=== PATIENT | female | born 1970 | race Caucasian/White ===

== ENCOUNTER 2018-03-28 07:47 | Emergency (ER) | payer MEDICARE, SELFPAY ==
[2018-03-28 07:53] VITALS: BP 124/74; PULSE 85; RESP 20; TEMP 36.5; O2SAT 96
--- NOTE | 2018-03-28 08:03 | DI.CT_ITS ---
SYMPTOM/DIAGNOSIS: HEMOPTYSIS CHEST CT: The study was carried out according to the usual protocol with an intravenous administration of 100.2 ml of Isovue 350. There is no evidence of pulmonary emboli Diffuse emphysematous changes are noted in the lungs. There are bilateral pulmonary nodules and when compared with the previous study of 12/06/13 there is a question regarding interval development of a small left upper lobe nodule. This finding not noted on the previous study. There is a number of superior mediastinal lymph nodes which are somewhat prominent. This finding is unchanged when compared with the 2014 exam. There is no evidence of hilar adenopathy. There is no evidence of a pleural effusion. The cardiovascular structures as demonstrated appear intact with no evidence of cardiomegaly. There is no evidence of a significant pericardial effusion. There is no evidence of an aortic aneurysm. SUMMARY: No evidence of pulmonary embolic disease. There are diffuse emphysematous changes in the lungs and pulmonary nodules are identified. There is an apparent small apical left pulmonary nodule not seen on the prior study of 2013. Further evaluation of this patient with a follow up screening chest CT in 3 months is recommended for further review. The E.R. Department was notified on the date of the examination.
--- NOTE | 2018-03-28 08:07 | ED.GENADUL_ITS ---
Discharge Plan Disposition Patient Disposition: HOME Condition: Stable Discharge Details Chief Complaint: RespSymp Clinical Impression: Cough with hemoptysis Primary Care Provider: Ehsan Mathis ED Provider: Bryce Veliz Home Meds and New Rx's Prescriptions: New prednisone 20 mg tablet 60 mg PO DAILY 5 Days Qty: 15 RF: 0 doxycycline hyclate 100 mg tablet 100 mg PO BID Qty: 14 RF: 0 Continued linaclotide [Linzess] 145 MCG capsule 145 mcg PO DAILY Qty: 90 RF: 0 cyclobenzaprine 10 MG tablet 10 mg PO DAILY PRNQty: 30 RF: 0 mirabegron [Myrbetriq] Sample 25 MG tablet extended release 24 hr Qty: 21 RF: 0 fluticasone-salmeterol [Advair Diskus] 1 EACH blister with device 1 ea Inhalation BID RF: 0 tiotropium bromide [Spiriva with HandiHaler] 18 MCG capsule, w/inhalation device 1 cap PO DAILY RF: 0 paroxetine HCl 20 MG tablet 20 mg PO DAILY RF: 0 morphine 15 MG tablet extended release 15 mg PO BID Qty: 30 RF: 0 montelukast 10 MG tablet 10 mg PO NOW Qty: 30 RF: 0 diltiazem HCl [Cardizem] 30 MG tablet 30 mg PO HS RF: 0 bupropion HCl 150 MG tablet extended release 12 hr 150 mg PO BID RF: 0 trazodone 100 MG tablet 100 mg PO .QHS RF: 0 omeprazole [Prilosec] 20 MG capsule,delayed release(DR/EC) 20 mg PO DAILY RF: 0 Discharge Instructions Instructions: Hemoptysis (ED) Additional Instructions: your lab work and cat scan did not show emergent findings. You do have lung nodules which you should make your primary care provider aware of as you should have follow up imaging in the future to make sure these are not getting larger you are being treated for an early infection given the blood in your cough if you have worsening bleeding, shortness of breath or severe weakness return to the emergency department for reevaluation Medical Decision Making 47 yo female with hx of copd and continues to smoke comes in with cc of coughed up sputum with blood in it this morning. Denies recent travel, surgery, chest pain, sob, fevers. Has clear lungs on exam and speaking in full sentences with no lower exstremity swelling or edema. No calf pain. Wells score is moderate so will obtain CTA to eval for pe vs pna. labs show no acute pathology, awaiting imaging, remains stable no acute findings on my read of ct awaiting rad report. She remains stable. ct per dr. camacho shows no acute findings, does have lung nodules which I informed her of. She will f/u with pcp and return precautions given. given blood streaked sputum will treat as possible early cap Differential Diagnosis bronchitis, pna, pe Medical Records Medical records reviewed: Yes I reviewed the patient's medical records. Imaging Data Radiologic Study: Attestation: I personally reviewed and interpreted this imaging study as follows: Imaging: CT Scan My impression: no acute findings Lab Data Lab results reviewed: Yes I reviewed the patient's lab results. ECG Data Attestation: I personally reviewed and interpreted this ECG (s) as follows: Prior ECG tracings: available for review Interpretation: sinus rhythm, rate of 80, pr 188, qtc of 459, no acute ischemic st t wave changes when compared to old ekg HPI General Mode of arrival: ambulatory . Date/Time Provider Initiated Documentation: 03/28/18 07:57 . Limitations to Documentation: no limitations . Information obtained by: patient . History of Present Illness 47 year old F presents to the emergency department with the chief complaint of coughed up blood, described as mild, with intensity rated at 3. Patient started experiencing this hour(s) (1) and it has been constant. No relieving factors improve symptom(s), No exacerbating factors reported . Patient notes no other symptoms.. Patient did receive the following treatments prior to arr ival, none Related Data Home Medications Medication Instructions Recorded Confirmed fluticasone-salmeterol [Advair 1 ea INHALATION BID 06/21/12 10/17/16 Diskus] tiotropium bromide [Spiriva with 1 cap PO DAILY 06/21/12 10/17/16 HandiHaler] paroxetine HCl 20 mg PO DAILY 08/21/12 10/17/16 morphine 15 mg PO BID #30 tabcr 01/06/13 10/17/16 montelukast 10 mg PO NOW #30 tab 08/16/13 10/17/16 diltiazem HCl [Cardizem] 30 mg PO HS 01/08/14 10/17/16 bupropion HCl 150 mg PO BID 02/21/14 10/17/16 omeprazole [Prilosec] 20 mg PO DAILY 02/21/14 10/17/16 trazodone 100 mg PO .QHS 02/21/14 10/17/16 cyclobenzaprine 10 mg PO DAILY PRN #30 tab 07/29/15 10/17/16 linaclotide [Linzess] 145 mcg PO DAILY #90 capsule 07/29/15 10/17/16 mirabegron [Myrbetriq] Sample #21 12/20/16 doxycycline hyclate 100 mg PO BID #14 tab 03/28/18 prednisone 60 mg PO DAILY 5 Days #15 tab 03/28/18 Previous Rx's Medication Instructions Recorded morphine 15 mg PO BID #30 tabcr 01/06/13 montelukast 10 mg PO NOW #30 tab 08/16/13 cyclobenzaprine 10 mg PO DAILY PRN #30 tab 07/29/15 linaclotide [Linzess] 145 mcg PO DAILY #90 capsule 07/29/15 doxycycline hyclate 100 mg PO BID #14 tab 03/28/18 prednisone 60 mg PO DAILY 5 Days #15 tab 03/28/18 Allergies Allergy/AdvReac Type Severity Reaction Status Date / Time vancomycin Allergy Intermediate Hives Unverified 12/20/16 09:46 sertraline HCl [From Zoloft] AdvReac Severe worsens Unverified 12/20/16 09:46 depression General Stated Complaint: RespSymp TK: 3 Review of Systems Review of Systems All systems reviewed & are unremarkable except as noted in HPI and below Constitutional Denies chills, Denies fever(s) and Denies weakness Cardiovascular Denies dyspnea Respiratory Denies dyspnea Gastrointestinal Denies abdominal pain, Denies nausea and Denies vomiting Integumentary/Breasts Denies rash Neurologic Denies weakness Psychiatric Denies depression [facility] History Anxiety Blood coagulation disorder Chronic obstructive lung disease History of ectopic Tobacco dependence, continuous Surgical History Biopsy of breast Colonoscopy - IV Sedation Correction, Hammertoe Dilation and curettage Endometrial Ablation Hysterectomy, Laproscopic Ligation of fallopian tube Oophrectomy, Right , Ectopic Family History Mother No problems noted. Father Personal history of malignant neoplasm Social History Smoking/Tobacco Use Status: Current every day Exam Const General: no acute distress Orientation: alert HENMT Head: normal to inspection Ears: external ears normal General nose exam: external nose normal Mouth: moist mucous membranes Eyes General: appearance normal, both eyes and all related structures Neck Neck: normal visual inspection Resp Effort & Inspection: normal respiratory effort and able to speak in complete sentences Cardio Rate: regular rate Skin General skin exam: no rashes or lesions noted Neuro General: alert and oriented x3 Extrem General: normal to inspection Psych Mental Status: mental status grossly normal Course Vital Signs Temperature 36.5 C 03/28/18 07:53 Pulse 85 03/28/18 07:53 Respiratory Rate 20 03/28/18 07:53 Blood Pressure 124/74 03/28/18 07:53 Pulse Oximetry 96 03/28/18 07:53 Temperature 36.5 C 03/28/18 07:53 Temperature Source Temporal Artery Scan 03/28/18 07:53 Pulse 85 03/28/18 07:53 Respiratory Rate 20 03/28/18 07:53 Respiratory Effort Non-Labored 03/28/18 07:59 Respiratory Depth Normal 03/28/18 07:59 Blood Pressure 124/74 03/28/18 07:53 Pulse Oximetry 96 03/28/18 07:53 Oxygen Delivery Method Room Air 03/28/18 07:53 Oxygen Flow Rate 0 03/28/18 07:53
[2018-03-28 08:27] LABS: Absolute Basophil Count 0.03 k/cumm (0.0-0.2); Absolute Eosinophil Count 0.06 k/cumm (0.0-0.7); Absolute Lymphocyte Count 1.28 k/cumm (1.2-3.4); Absolute Monocyte Count 0.49 k/cumm (0.11-0.7); Absolute Neutrophil Count 2.57 k/cumm (1.2-6.7); Basophils % 0.7; Eosinophils % 1.4; HCT 40.9 % (36.0-46.0); HGB 13.6 g/dL (12.0-15.5); Lymphocytes % 28.9; Mean Corp. HGB Concentration 33.3 g/dL (32.0-36.0); Mean Corpuscular Hemoglobin 32.5 pg (27.0-33.0); Mean Corpuscular Volume 97.6 fL (80-95); Mean Platelet Volume 9.9 fL (8.0-11.0); Monocytes % 11.1; Neutrophils % 57.9; Platelet Count 193 x1000/uL (130-400); RBC 4.19 m/cumm (4.00-5.20); RBC Distribution Width 13.4 % (11.7-14.6); White Blood Cell Count 4.43 k/cumm (4.4-10.8)
[2018-03-28] MEDS: Normal Saline Flush 10 ML SYR IVP (08:30)
[2018-03-28 08:37] LABS: PTT Activated 24.6 sec (21.0-31.4)
[2018-03-28 08:52] LABS: ALT 14 U/L (12-78); AST 12 U/L (15-37); Albumin 3.3 g/dL (3.4-5.0); Alkaline Phosphatase 126 U/L (46-116); Anion Gap 8.9 mmol/L (3-11); BUN 7 mg/dL (7-18); Bilirubin, Total 0.2 mg/dL (0.2-1.0); CO2 29.1 mmol/L (21.0-32.0); CREATININE 0.85 mg/dL (0.55-1.02); Calcium 8.5 mg/dL (8.5-10.1); Chloride 106 mmol/L (98-107); Glucose 83 mg/dL (70-100); Potassium 3.6 mmol/L (3.5-5.1); Sodium 144 mmol/L (136-145); Total Protein 6.4 g/dL (6.4-8.2)
[2018-03-28 08:53] LABS: Magnesium 1.6 mg/dL (1.8-2.4); NT-proBNP 121 pg/mL; Troponin I < 0.02 ng/mL (0.00-0.06)
[2018-03-28 08:59] VITALS: BP 95/74; PULSE 75; RESP 20; TEMP 36.8; O2SAT 94
--- NOTE | 2018-03-28 09:05 | NUR.NOTE ---
Nursing Note: Pt off unit to CT
[2018-03-28] MEDS: Omnipaque 350 MG/ML 100 ML BTL IJ (09:15)
[2018-03-28 10:18] VITALS: PULSE 73; RESP 20; O2SAT 93
[2018-03-28 10:30] VITALS: PULSE 73; RESP 20; O2SAT 94
== END 2018-03-28 10:33 | disposition home or self-care (01) ==
PROVIDERS: Emergency Provider Emergency Medicine; PCP Specialist/Technologist Athletic Trainer
DX: R04.2 Hemoptysis (principal); J44.9 Chronic obstructive pulmonary disease, unspecified; F17.210 Nicotine dependence, cigarettes, uncomplicated
CPT/HCPCS: 36415; 71275; 80053; 93005; 99285; 83735; 83880; 84484; 85025; 85610; 85730; 93010; J3490

== ENCOUNTER 2018-07-12 10:34 | Outpatient (REF) | payer MEDICARE, SELFPAY ==
[2018-07-12 20:15] LABS: HGB 13.5 g/dL (12.0-15.5)
[2018-07-12 20:40] LABS: ALT 20 U/L (12-78); AST 13 U/L (15-37); Albumin 3.6 g/dL (3.4-5.0); Alkaline Phosphatase 117 U/L (46-116); Anion Gap 9.2 mmol/L (3-11); BUN 8 mg/dL (7-18); Bilirubin, Total 0.2 mg/dL (0.2-1.0); CO2 26.8 mmol/L (21.0-32.0); CREATININE 0.89 mg/dL (0.55-1.02); Calcium 8.6 mg/dL (8.5-10.1); Chloride 105 mmol/L (98-107); Cholesterol 233 mg/dL (50-200); Glucose 76 mg/dL (70-100); HDL Cholesterol 70 mg/dL (40-60); LDL CHOLESTEROL 138 mg/dL (<100); Magnesium 1.8 mg/dL (1.8-2.4); Potassium 3.7 mmol/L (3.5-5.1); Sodium 141 mmol/L (136-145); Total Protein 6.6 g/dL (6.4-8.2); Triglyceride 69 mg/dL (30-150)
== END 2018-07-12 10:54 ==
LOC: NCHCN 10:34
PROVIDERS: PCP Specialist/Technologist Athletic Trainer; Visit Provider Specialist/Technologist Athletic Trainer
DX: E03.9 Hypothyroidism, unspecified (principal); K21.9 Gastro-esophageal reflux disease without esophagitis; E78.5 Hyperlipidemia, unspecified
CPT/HCPCS: 80053; 80061; 83721; 83735; 84443; 85014; 85018

== ENCOUNTER 2018-07-18 00:40 | Outpatient (CLI) | payer MEDICARE, SELFPAY ==
--- NOTE | 2018-07-18 12:15 | DI.MAMMO_ITS ---
SYMPTOM/DIAGNOSIS: SCREENING, Z12.31, [facility], Z00.00 MAMMOGRAMS: Mammograms were interpreted according to the usual protocol including computer analysis with CAD system, tomosynthesis and C view imaging. Comparison is made with prior examinations. Breast density, Category B. No suspicious microcalcifications or masses are seen. There is an ovoid density in the retroareolar region of the left breast seen on the mediolateral oblique view. This area should be further evaluated with a spot compression view. Ultrasound may be indicated at that time. IMPRESSION: Additional views of the left breast as described above. Category 0. MQSA ASSESSMENT OF FINDINGS: Incomplete: Needs additional imaging evaluation. Category 0. Patient will receive a letter notifying them of these results. BI-RADS category B. There are scattered areas of fibroglandular density.
== END 2018-07-18 01:00 ==
PROVIDERS: PCP Specialist/Technologist Athletic Trainer; Visit Provider Specialist/Technologist Athletic Trainer
DX: Z12.31 Encounter for screening mammogram for malignant neoplasm of breast (principal); R92.8 Other abnormal and inconclusive findings on diagnostic imaging of breast
CPT/HCPCS: 77063; 77067

== ENCOUNTER 2018-07-21 00:26 | Outpatient (CLI) | payer MEDICARE, SELFPAY ==
--- NOTE | 2018-07-21 13:34 | DI.MAMMO_ITS ---
SYMPTOMS/DIAGNOSIS: F/U MAMMO, OVOID DENSITY RETROAREOLAR REGION LT BREAST ADDITIONAL MAMMOGRAPHIC VIEWS LEFT BREAST AND LEFT BREAST ULTRASOUND: Additional images are interpreted according to the usual protocol including tomosynthesis and 2D imaging. Additional mammographic views of the left breast and left breast ultrasound are interpreted in conjunction. These examinations were obtained to evaluate questionable area of retroareolar asymmetric radiodensity seen on recent mammogram. Additional mammographic views fail to show a discrete mass. Breast ultrasound shows no evidence of mass or cyst. CONCLUSION: No specific evidence of malignancy at this time. Follow up unilateral left breast mammogram recommended in 6 months. Category 3. Breast density Category C. MQSA ASSESSMENT OF FINDINGS: Probably benign. Six month follow-up recommended. Category 3. Patient will receive a letter notifying them of these results. Bi-RADS category C. The breasts are heterogeneously dense, which may obscure small masses.
== END 2018-07-21 00:46 ==
PROVIDERS: PCP Specialist/Technologist Athletic Trainer; Visit Provider Specialist/Technologist Athletic Trainer
DX: Z12.31 Encounter for screening mammogram for malignant neoplasm of breast (principal); R92.8 Other abnormal and inconclusive findings on diagnostic imaging of breast; N64.59 Other signs and symptoms in breast
CPT/HCPCS: 76642; 77063; 77067

== ENCOUNTER 2018-07-27 00:31 | Outpatient (CLI) | payer MEDICARE, SELFPAY ==
--- NOTE | 2018-07-27 08:24 | DI.US_ITS ---
SYMPTOM/DIAGNOSIS: ABD PAIN, R10.9 ABDOMEN ULTRASOUND: The visualized liver parenchyma is normal in appearance. There is no evidence of cholelithiasis or biliary dilatation. Pancreas incompletely visualized but the pancreatic head and body appear grossly intact. The kidneys are unremarkable with no evidence of obstruction or nephrolithiasis. Spleen is unremarkable in appearance. Abdominal aorta and IVC are of normal diameter. CONCLUSION: Negative abdomen ultrasound.
== END 2018-07-27 00:51 ==
PROVIDERS: PCP Specialist/Technologist Athletic Trainer; Visit Provider Specialist/Technologist Athletic Trainer
DX: R10.9 Unspecified abdominal pain (principal)
CPT/HCPCS: 76700

== ENCOUNTER → 2018-07-28 10:46 | Outpatient (BNVA) | payer MEDICARE, SELFPAY | PROVIDERS: PCP Specialist/Technologist Athletic Trainer; Referring Provider Specialist/Technologist Athletic Trainer; Visit Provider Physical Therapy Assistant | DX: R10.11 Right upper quadrant pain (principal); J44.9 Chronic obstructive pulmonary disease, unspecified; Z99.81 Dependence on supplemental oxygen | CPT/HCPCS: 99212; 99213 ==

== ENCOUNTER 2018-08-08 07:56 | Day surgery (SDC) | payer MEDICARE, SELFPAY ==
--- NOTE | 2018-08-08 07:03 | W.PM.ENDDOP ---
Date of service: 08/08/18 Time of Service: : Endoscopy Report DATE OF PROCEDURE: 08/08/18 PRE-OP DIAGNOSIS: Abdominal pain POST-OP DIAGNOSIS: other (mild gastritis, mild esophagitis) PROCEDURE: EGD with biopsies SURGEON: Summer Meeks ANESTHESIA: other (General/ ASA 2/ angy Parra, TUNG) ESTIMATED BLOOD LOSS: 3 PATHOLOGY: other (Duodenal bx, antrum bx, GE junction bx) DISPOSITION: no change INDICATIONS: Mrs. Sanchez is a pleasant 47 year old female seen in the office for abdominal pain. EGD was recommended. Risks, benefits and complications have been reviewed. Complications include but are not limited to bleeding, pain, perforation, sore throat, aspiration, and adverse reaction to the medications. Questions were entertained and answered to their satisfaction and they wished to proceed. No guarantees were given or implied. PROCEDURE START TIME: PROCEDURE END TIME: :36 FINDINGS: Mild inflammation of the antrum and esophagus PROCEDURE DESCRIPTION: After informed consent was obtained the patient was take to the procedure room and placed in a supine position. Monitors were applied and a time out was done. The patients name, date of , procedure type, allergies to medications and metal in their body was reviewed. A bite block was placed and the patient was sedated. Once sedated and comfortable the gastroscope was advanced through the oropharynx which was grossly normal into the esophagus. The proximal and mid-esophagus were normal. In the distal esophagus there was mild inflammation noted. The scope was advanced into the stomach and through the pylorus into the 3rd portion of the duodenum. The duodenum was noted to be normal. Biopsies were done of the duodenum to rule out Celiac. The scope was retracted back into the stomach and biopsies were done to rule out H. pylori. There were no ulcers. The scope was retro-flexed. The cardia and fundus were noted to be normal. There was no hiatal hernia noted. The scope was retracted back into the esophagus and biopsies were done of the GE junction to rule out Ross's. The Z line was irregular. The GE junction was at 40 cm. The scope was removed and the patient was woken up and taken back to [facility] in stable condition. Follow up: 2 weeks in the office. No changes to her medications at this time.
--- NOTE | 2018-08-08 07:10 | ENDO_ITS ---
Date of service: 08/08/18 Time of Service: : Endoscopy Report DATE OF PROCEDURE: 08/08/18 PRE-OP DIAGNOSIS: Abdominal pain POST-OP DIAGNOSIS: other (mild gastritis, mild esophagitis) PROCEDURE: EGD with biopsies SURGEON: Summer Meeks ANESTHESIA: other (General/ ASA 2/ angy Parra, TUNG) ESTIMATED BLOOD LOSS: 3 PATHOLOGY: other (Duodenal bx, antrum bx, GE junction bx) DISPOSITION: no change INDICATIONS: Mrs. Sanchez is a pleasant 47 year old female seen in the office for abdominal pain. EGD was recommended. Risks, benefits and complications have been reviewed. Complications include but are not limited to bleeding, pain, perforation, sore throat, aspiration, and adverse reaction to the medications. Questions were entertained and answered to their satisfaction and they wished to proceed. No guarantees were given or implied. PROCEDURE START TIME: PROCEDURE END TIME: :36 FINDINGS: Mild inflammation of the antrum and esophagus PROCEDURE DESCRIPTION: After informed consent was obtained the patient was take to the procedure room and placed in a supine position. Monitors were candido lied and a time out was done. The patients name, date of , procedure type, allergies to medications and metal in their body was reviewed. A bite block was placed and the patient was sedated. Once sedated and comfortable the gastroscope was advanced through the oropharynx which was grossly normal into the esophagus. The proximal and mid- esophagus were normal. In the distal esophagus there was mild inflammation noted. The scope was advanced into the stomach and through the pylorus into the 3rd portion of the duodenum. The duodenum was noted to be normal. Biopsies were done of the duodenum to rule out Celiac. The scope was retracted back into the stomach and biopsies were done to rule out H. pylori. There were no ulcers. The scope was retro-flexed. The cardia and fundus were noted to be normal. There was no hiatal hernia noted. The scope was retracted back into the esophagus and biopsies were done of the GE junction to rule out Ross's. The Z line was irregular. The GE junction was at 40 cm. The scope was removed and the patient was woken up and taken back to [facility] in stable condition. Follow up: 2 weeks in the office. No changes to her medications at this time.
--- NOTE | 2018-08-08 07:19 | PDOC.DSDIS_ITS ---
Discharge Plan Disposition Patient Disposition: HOME Condition: Good Discharge Details Reason For Visit: Abdominal pain Attending Provider: Summer Meeks Primary Care Provider: Ehsan Mathis Home Meds and New Rx's Prescriptions: Continued fluticasone furoate-vilanterol 100-25 mcg/dose blister with device 1 inh IH DAILY PRNRF: 0 trazodone 100 mg tablet 200 mg PO QHS PRNRF: 0 citalopram 20 mg tablet 20 mg PO DAILY RF: 0 citalopram 40 mg tablet 40 mg PO DAILY RF: 0 levothyroxine 75 mcg capsule 75 mcg PO DAILY RF: 0 Oxygen Tank .ROUTE .MEDSUPPLY Qty: 1 RF: 0 Spiriva with HandiHaler 18 MCG capsule, w/inhalation device 1 cap PO DAILY RF: 0 montelukast 10 MG tablet 10 mg PO NOW Qty: 30 RF: 0 diltiazem HCl [Cardizem] 30 MG tablet 30 mg PO HS RF: 0 bupropion HCl 150 MG tablet extended release 12 hr 150 mg PO BID RF: 0 omeprazole [Prilosec] 20 MG capsule,delayed release(DR/EC) 40 mg PO DAILY RF: 0 Breo Ellipta 200-25 mcg/dose Blister With Device 1 inh INHALATION DAILY RF: 0 Discharge Instructions Instructions: Gastritis (DC), Diet for Stomach Ulcers and Gastritis (GEN), Upper Endoscopy (DC), Esophagitis (DC) Additional Instructions: Findings: Mild inflammation of the stomach and esophagus Follow up: August 22 at 1 pm Please call if you develop: fevers >101.5 Nausea or Vomiting Abdominal pain that is not transient DAY SURGERY UNIT POST COLONOSCOPY INSTRUCTIONS 1. Because there will be medication in your system for the next 24 hours, you may feel a little sleepy. Your coordination will be affected. Therefore: a. Do not drive or operate dangerous equipment for 24 hours. b. Do not drink alcohol beverages for 24 hours (not even beer). c. Plan to go home and rest for the day. 2. Generally there are no restrictions on your activity after a day or so has gone by, but you may feel a bit fatigued for a few days. 3 After you arrive home you may have a light meal and return to a normal diet as you can tolerate it without feeling sick to your stomach. 4. After surgery, you may feel pain or discomfort. This should be only transient, but if it persists please contact your doctor. 5. If there are any questions regarding the findings of your procedure, please feel free to contact your doctor. 6. If you are unable to contact your doctor with a problem, contact the hospital at [phone]. 7. Continue all your regular medications unless directed otherwise. I understand the above instructions and have no questions. Signature of Patient or Responsible Adult Escort Date/Time Name of Responsible Adult Escort Signature of Nurse Date/Time Referrals: Summer Meeks MD [ [facility] STAFF PHYSICIAN] - 08/08/18 9:54 am Activity:: Activity as Tolerated Diet:: As Tolerated Discharge Orders Discharge Orders: Discharge Order (Routine); Ordered 08/08/18 Ordered By: Summer Meeks DS: Diagnosis Discharge Diagnosis (1) H/O esophagogastroduodenoscopy: Status: Chronic (2) Esophagitis: Status: Acute (3) Gastritis: Status: Acute
[2018-08-08 08:23] VITALS: BP 118/78; PULSE 72; RESP 16; TEMP 36.6; O2SAT 95
[2018-08-08] MEDS: Lactated Ringers 1,000 ML 80 ML IV (08:42)
--- NOTE | 2018-08-08 09:30 | STOM_PTH ---
PATIENT: Jessie Sanchez LOC: [facility] U#:[id number] AGE/SX: 47/F ROOM: RE08/08/[address]: Summer Meeks MD : 1970 BED: DIS: 08/08/2018 SPEC #: [id number] RECD: 08/08/18 12:48 STATUS: LUCIA REJared #: [id number] VERONIKA: 08/08/18 09:[address]: Summer Meeks DEPT: Surgical Specimen RECD BY: Celeste Watts ENTERED: 08/08/18 12:50 SP TYPE: STOMACH OTHR DR: Ehsan Mathis Tissues: 1 - BIOPSY BOWEL 2 - STOMACH BIOPSY 3 - ESOPHAGUS BIOPSY Procedures: GROSS AND MICRO LEVEL 4 Comments: [id number]
[2018-08-08 10:15] VITALS: BP 110/72; PULSE 69; RESP 18; O2SAT 93
== END 2018-08-08 10:30 | disposition home or self-care (01) ==
LOC: SUR 07:56
PROVIDERS: PCP Specialist/Technologist Athletic Trainer; Visit Provider Surgery
PROC: 0DJ68ZZ Inspection of Stomach, Via Natural or Artificial Opening Endoscopic (ICD-10-PCS; CPT 43235; principal; 2018-08-08 09:00)
DX: R10.11 Right upper quadrant pain (principal); K31.89 Other diseases of stomach and duodenum; K21.0 Gastro-esophageal reflux disease with esophagitis; K29.70 Gastritis, unspecified, without bleeding; G89.29 Other chronic pain; J44.9 Chronic obstructive pulmonary disease, unspecified; Z99.81 Dependence on supplemental oxygen; F17.210 Nicotine dependence, cigarettes, uncomplicated
CPT/HCPCS: 43239; 88305; J2250

== ENCOUNTER → 2018-08-29 12:49 | Outpatient (BNVA) | payer MEDICARE, SELFPAY | PROVIDERS: PCP Specialist/Technologist Athletic Trainer; Referring Provider Specialist/Technologist Athletic Trainer; Visit Provider Surgery | DX: R10.11 Right upper quadrant pain (principal); K29.70 Gastritis, unspecified, without bleeding | CPT/HCPCS: 99212; 99213 ==

== ENCOUNTER 2018-09-05 01:01 | Outpatient (CLI) | payer MEDICARE, SELFPAY ==
--- NOTE | 2018-09-05 08:30 | DI.NM_ITS ---
SYMPTOMS/DIAGNOSIS: RUQ PAIN, R10.11 CCK HIDA SCAN: 5.0 millicuries of Technetium 99 M Mebrofenin was administered according to protocol as was 1.15 micrograms of CCK. The liver, bile ducts, gallbladder and small bowel were visualized at the appropriate time interval. Gallbladder ejection fraction was calculated at 82% which is within normal limits. IMPRESSION: Normal examination.
== END 2018-09-05 01:21 ==
PROVIDERS: PCP Specialist/Technologist Athletic Trainer; Visit Provider Surgery
DX: R10.11 Right upper quadrant pain (principal)
CPT/HCPCS: 78227

== ENCOUNTER 2018-11-15 10:20 | Outpatient (REF) | payer MEDICARE, SELFPAY | END 2018-11-15 10:40 | LOC: NCHCN 10:20 | PROVIDERS: PCP Specialist/Technologist Athletic Trainer; Visit Provider Nurse Practitioner Family | DX: J44.1 Chronic obstructive pulmonary disease with (acute) exacerbation (principal); K21.9 Gastro-esophageal reflux disease without esophagitis; L29.8 Other pruritus; R30.0 Dysuria | CPT/HCPCS: 87480; 87510; 87660 ==

== ENCOUNTER 2019-01-10 18:17 | Emergency (ER) | payer MEDICARE, SELFPAY ==
[2019-01-10] VITALS (9 sets, daily range): BP systolic 95–114; BP diastolic 53–97; PULSE 75–86; RESP 1–18; TEMP 36.8; O2SAT 91–95
--- NOTE | 2019-01-10 18:24 | ED.GENADUL_ITS ---
Discharge Plan Disposition Patient Disposition: HOME Condition: Fair Discharge Details Chief Complaint: Chest Pain Clinical Impression: COPD (chronic obstructive pulmonary disease), Pneumonia, Atypical chest pain, Pleuritis Primary Care Provider: Belkys Budny ED Provider: Cady Denson Home Meds and New Rx's Prescriptions: New prednisone 10 mg tablet 10 mg PO DAILY Qty: 23 RF: 0 doxycycline hyclate 100 mg capsule 100 mg PO BID Qty: 14 RF: 0 Continued fluticasone furoate-vilanterol 100-25 mcg/dose blister with device 1 inh IH DAILY PRNRF: 0 trazodone 100 mg tablet 200 mg PO QHS PRNRF: 0 citalopram 20 mg tablet 20 mg PO DAILY RF: 0 citalopram 40 mg tablet 40 mg PO DAILY RF: 0 levothyroxine 75 mcg capsule 75 mcg PO DAILY RF: 0 (DME) Oxygen Tank See Dose Instructions .ROUTE .MEDSUPPLY Qty: 1 RF: 0 Spiriva with HandiHaler 18 MCG capsule, w/inhalation device 1 cap PO DAILY RF: 0 montelukast 10 MG tablet 10 mg PO NOW Qty: 30 RF: 0 diltiazem HCl [Cardizem] 30 MG tablet 30 mg PO HS RF: 0 bupropion HCl 150 MG tablet extended release 12 hr 150 mg PO BID RF: 0 omeprazole [Prilosec] 20 MG capsule,delayed release(DR/EC) 40 mg PO DAILY RF: 0 Breo Ellipta 200-25 mcg/dose Blister With Device 1 inh INHALATION DAILY RF: 0 Discharge Instructions Instructions: Doxycycline (By mouth), Prednisone (By mouth), Chest Pain (ED), Pneumonia (ED) Additional Instructions: Encourage hydration. Stop smoking. Tylenol and ibuprofen as needed for discomfort. Stop smoking. Please take the prednisone and doxycycline as prescribed. You will need close follow-up with your primary care, please call tomorrow to schedule appointment within the next few days. If you develop fever/chills, difficulty breathing, shortness of breath, inability stay hydrated, increased or exertional chest pain or the new/worsening symptoms please seek care urgently once again. Referrals: Belkys Bundy DO [Primary Care Provider] - Discharge Data Discharge Date/Time-TO BE ENTERED AT DEPARTURE: 01/10/19 21:34 Medical Decision Making <HEATHER Haley - Last Filed: 01/14/19 09:35> Patient is a 48-year-old female with history of COPD, active smoker, gastritis, esophagitis, depression. She is presenting today with chief complaint of cough and concern for pneumonia. She reports that she has had these symptoms for the past 5 days. Has been feeling tight and wheezy. Is been using her medications as prescribed. This afternoon, she began developing some chest discomfort substernally. States that the pain is worse with cough. Denies any fevers or chills. No GI upset. Patient has no cardiac history. Denies familial cardiac history. She reports symptoms has been getting worse over the past 5 days. States she had pneumonia historically but this feels very similar when she had a in the past. On exam, patient appears uncomfortable. She is diffusely wheezy on exam. Heart rate is normal 86. Oxygen is low at 92%. She is afebrile and normotensive. Normal cardiac exam. Normal abdominal exam. Wells negative. Previous PE or DVT. No hormone use. EKG was reviewed by physician, patient's normal sinus rhythm with a rate 84 with no evidence of acute ischemic changes. Patient feels much improved after nebulizer treatment. Wheezing remains but is improved. Patient is endorsing some chronic back pain is requesting ibuprofen. As we have not ruled out cardiac etiology, I am hesitant to use an NSAID. Will give 2 mg IV morphine. CXR reviewed by radiologist: FINDINGS: There is hyperinflation. No infiltrates are present. There is no pleural effusion or pneumothorax. The heart size and pulmonary vascularity are normal. Nodular densities are seen symmetrically consistent with nipple shadows. IMPRESSION: 1. Hyperinflation. 2. No focal infiltrates. Discussed findings with the patient. Labs reviewed, no leukocytosis. Troponin <0.05. The patient's long history of smoking, feel that repeat troponin is appropriate for her. Repeat troponin remains less than 0.05. Patient is not having any chest pain. She resting comfortably. Feels much improved at this time after continued nebulizer treatments, IV fluids. Patient is requesting discharge at this time. Since she is having a COPD exacerbation. History is very concerning for pneumonia despite the normal chest x-ray. Will begin treatment with doxycycline and prednisone. Patient was given strict return precautions. Advise follow-up with primary care in 1 week for reevaluation. She is hydrating here orally and will encourage hydration at home. All her questions and concerns were addressed and she is in agreement this plan. <Walter Delgado DO - Last Filed: 01/10/19 19:04> EKG rate 84, intervals normal, sinus rhythm, no significant ST elevations or depressions, nonspecific T wave flattening in anterior leads. No evidence of STEMI. EKG from 03/28/2018 demonstrates equivalent findings. HPI <HEATHER Haley - Last Filed: 01/14/19 09:35> General Mode of arrival: ambulatory . Date/Time Provider Initiated Documentation: 01/10/19 18:24 . Limitations to Documentation: no limitations . Information obtained by: patient, family and RN notes reviewed . History of Present Illness 48 year old F presents to the emergency department with the [facility] complaint of cough, chest pain, described as moderate, with intensity rated at 5. Quality is described as aching, and is localized to the chest. Patient reports no radiation. Patient started experiencing this hour(s) and it has been constant. Immobilization improves symptom(s), Other factors that worsen symptoms (cough) . Patient notes chest pain, cough and shortness of lulu ath; denies diaphoresis, fever/chills, headaches, loss of appetite, nausea/vomiting, rash, syncope and weakness. Patient did receive the following treatments prior to arrival, none Related Data Home Medications Medication Instructions Recorded Confirmed Spiriva with HandiHaler 1 cap PO DAILY 06/21/12 08/29/18 montelukast 10 mg PO NOW #30 tab 08/16/13 08/29/18 diltiazem HCl [Cardizem] 30 mg PO HS 01/08/14 08/29/18 bupropion HCl 150 mg PO BID 02/21/14 08/29/18 omeprazole [Prilosec] 40 mg PO DAILY 02/21/14 08/29/18 Oxygen #1 each 07/28/18 08/29/18 citalopram 20 mg tablet 20 mg PO DAILY 07/28/18 08/29/18 citalopram 40 mg tablet 40 mg PO DAILY 07/28/18 08/29/18 fluticasone furoate 100 1 inh IH DAILY PRN 07/28/18 08/29/18 mcg-vilanterol 25 mcg/dose inhalation powder levothyroxine 75 mcg capsule 75 mcg PO DAILY 07/28/18 08/29/18 trazodone 100 mg tablet 200 mg PO QHS PRN tab 07/28/18 08/29/18 Kailash Toscano 1 inh INHALATION DAILY 08/07/18 08/29/18 doxycycline hyclate 100 mg PO BID #14 cap 01/10/19 prednisone 10 mg PO DAILY #23 tab 01/10/19 Previous Rx's Medication Instructions Recorded montelukast 10 mg PO NOW #30 tab 08/16/13 doxycycline hyclate 100 mg PO BID #14 cap 01/10/19 prednisone 10 mg PO DAILY #23 tab 01/10/19 Allergies Allergy/AdvReac Type Severity Reaction Status Date / Time vancomycin Allergy Intermediate Hives Unverified 01/10/19 19:11 sertraline HCl [From Zoloft] AdvReac Severe worsens Unverified 01/10/19 19:11 depression General TK: 3 Review of Systems <HEATHER Haley - Last Filed: 01/14/19 09:35> Constitutional Constitutional: Reports as per HPI, Denies chills, Reports fatigue, Reports fever(s) (subjective), Denies headache(s), Denies lethargy and Denies poor appetite Eyes Eyes: Denies change in vision ENT Ears, Nose, Mouth, and Throat: Denies dizziness and Denies headache(s) Cardiovascular Cardiovascular: Reports as per HPI, Reports chest pain, Reports chest pain at rest, Reports chest pain with activity (pain consistent, not worsened with exertion, pain worse with coughing), Denies pedal edema, Denies leg edema, Denies lightheadedness, Denies radiating jaw, neck or arm pain, Denies palpitations, Reports dyspnea and Reports dyspnea on exertion Respiratory Respiratory: Reports as per HPI, Reports chest congestion, Reports cough, Denies hemoptysis, Reports excessive phlegm production, Denies pain on inspiration, Reports pain with cough, Reports dyspnea, Reports dyspnea on exertion, Denies stridor and Reports wheezing Gastrointestinal Gastrointestinal: Reports as per HPI, Denies abdominal pain, Denies diarrhea, Denies nausea and Denies vomiting Musculoskeletal Musculoskeletal: Reports as per HPI and Denies back pain Integumentary/Breasts Skin/Breast: Reports as per HPI and Denies rash Neurologic Neurologic: Reports as per HPI, Denies dizziness and Denies headache(s) Endocrine Endocrine: Reports fatigue and Denies palpitations Allergic/Immunologic Allergic/Immunologic: Reports wheezing PFSH <HEATHER Haley - Last Filed: 01/14/19 09:35> Medical History Anxiety MTFHR mutation Blood coagulation disorder Chronic obstructive lung disease Esophagitis (Acute) mild Gastritis (Acute) mild GERD (gastroesophageal reflux disease) (Chronic) History of ectopic Tobacco dependence, continuous Surgical History Biopsy of breast bilaterally Colonoscopy - IV Sedation Correction, Hammertoe Dilation and curettage Endometrial Ablation Hx of bladder repair surgery (Chronic) Bladder sling Hysterectomy, Laproscopic 2007 for bleeding Ligation of fallopian tube Oophrectomy, Right with hyst , Ectopic Social History Smoking/Tobacco Use Status: Current every day Tobacco Type: cigarettes Alcohol Intake: current Alcohol Intake frequency: holidays/special occasions only Drug use: Never Substance use type: does not use Do you feel safe at home: Yes Do you feel safe in your relationship?: Yes Exam <HEATHER Haley - Last Filed: 01/14/19 09:35> Const General: cooperative, comfortable, no acute distress, well developed and ill appearing acutely (Appears fatigued) and chronically (Poor skin color associated with chronic smoking) Nutritional Appearance: average body habitus and well nourished Orientation: alert, awake and oriented x3 HENMT Head: normal to inspection Ears: hearing grossly normal bilaterally, external ears normal and TM's normal bilaterally General nose exam: external nose normal and nares normal Face and sinus: normal facial exam and sinuses nontender Mouth: oral mucosae normal, lip normal and moist mucous membranes Teeth and gingiva: dentition normal Throat: posterior oropharynx normal, tonsils normal and uvula midline Chest Chest: normal inspection of the chest, normal palpation of entire chest wall and no crepitus Resp Effort & Inspection: normal respiratory effort, able to speak in complete sentences and no respiratory distress Auscultation: clear to auscultation bilaterally, no rales, no rhonchi and wheezes (diffuse) expiratory wheezes Cardio Rate: regular rate Rhythm: regular rhythm Heart Sounds: S1 normal and S2 normal GI Inspection: normal to inspection, no edema and non-distended Palpation: soft, no hepatosplenomegaly, not firm, no guarding, not rigid and nontender Auscultation: normal bowel sounds Back/Spine/Pelvis Back: no CVA tenderness Thoracic/Lumbar Spine: thoracic and lumbar spine normal to inspection Skin General skin exam: no rashes or lesions noted Trauma: no lacerations or abrasions Neuro General: alert, awake and oriented x3 Cognition: normal cognition Speech: speech normal Gait: normal gait Extrem General: normal to inspection, normal capillary refill, no pedal edema, no calf tenderness and normal gait Psych Appearance: grossly normal and well kempt Mental Status: mental status grossly normal Speech and Movement: speech and movement normal
--- NOTE | 2019-01-10 18:33 | DI.RAD_ITS ---
EXAM: XR CHEST 2V PA LATERAL INDICATION: cough, CP. COMPARISON: CHEST 2 VIEWS PA,LAT from 01/19/2015 TECHNIQUE: 2D digital imaging was performed. FINDINGS: The lungs appear mildly hyperinflated but clear. Heart is not enlarged. No pleural effusion seen. No pneumothorax identified. IMPRESSION: No evidence of acute process.
[2019-01-10] MEDS: Aspirin 81 MG CHEW 324 MG CH (18:43)
[2019-01-10 18:48] LABS: Absolute Basophil Count 0.05 k/cumm (0.0-0.2); Absolute Eosinophil Count 0.17 k/cumm (0.0-0.7); Absolute Lymphocyte Count 1.92 k/cumm (1.2-3.4); Absolute Monocyte Count 0.43 k/cumm (0.11-0.7); Basophils % 0.9; Eosinophils % 3.1; HCT 41.2 % (36.0-46.0); HGB 13.7 g/dL (12.0-15.5); Lymphocytes % 35.1; Mean Corp. HGB Concentration 33.3 g/dL (32.0-36.0); Mean Corpuscular Hemoglobin 32.2 pg (27.0-33.0); Mean Corpuscular Volume 96.7 fL (80-95); Mean Platelet Volume 9.5 fL (8.0-11.0); Monocytes % 7.9; Platelet Count 216 x1000/uL (130-400); RBC 4.26 m/cumm (4.00-5.20); RBC Distribution Width 13.2 % (11.7-14.6); White Blood Cell Count 5.47 k/cumm (4.4-10.8)
--- NOTE | 2019-01-10 18:54 | NUR.NOTE ---
Nursing Note: report given to Misty shift supervisor melting RN
[2019-01-10 19:02] LABS: INR 1.1 (0.9-1.1); PTT Activated 26.3 sec (21.0-31.4); Prothrombin Time 11.5 sec (9.3-11.0)
[2019-01-10 19:06] LABS: ALT 14 U/L (14-59); AST 8 U/L (15-37); Albumin 3.4 g/dL (3.4-5.0); Alkaline Phosphatase 122 U/L (46-116); Anion Gap 7.3 mmol/L (3-11); BUN 9 mg/dL (7-18); Bilirubin, Total 0.3 mg/dL (0.2-1.0); CO2 27.7 mmol/L (21.0-32.0); CREATININE 1.03 mg/dL (0.55-1.02); Calcium 8.3 mg/dL (8.5-10.1); Chloride 106 mmol/L (98-107); Estimated GFR 57.19 (mL/min/1.73m2); Glucose 94 mg/dL (70-100); Magnesium 1.6 mg/dL (1.8-2.4); NT-proBNP 125 pg/mL; Potassium 3.7 mmol/L (3.5-5.1); Sodium 141 mmol/L (136-145); Total Protein 6.4 g/dL (6.4-8.2); Troponin I < 0.05 ng/mL (0.00-0.06)
[2019-01-10] MEDS: Albuterol/Ipratropium 3 ML UPD VIAL UPD (19:43)
--- NOTE | 2019-01-10 19:57 | DI.VRAD_ITS ---
PROCEDURE INFORMATION: Exam: XR Chest, 2 Views Exam date and time: 01/10/2019 6:34 PM Clinical history: 48 years old, female; Chest pain; Type not specified; Additional info: Cough, chest pain TECHNIQUE: Imaging protocol: XR of the chest Views: 2 views. COMPARISON: CR CHEST 2 VIEWS PA,LAT 01/19/2015 11:14 AM FINDINGS: There is hyperinflation. No infiltrates are present. There is no pleural effusion or pneumothorax. The heart size and pulmonary vascularity are normal. Nodular densities are seen symmetrically consistent with nipple shadows. IMPRESSION: 1. Hyperinflation. 2. No focal infiltrates. Dictated and Authenticated by: Compa Win MD. Ordering:ELIZABETH Lazar MD
[2019-01-10] MEDS: Albuterol 2.5 MG/3 ML INH SOLN VIAL UPD (20:33)
[2019-01-10] MEDS: Lidocaine 5% Patch 1 PATCH TP (20:33)
[2019-01-10 22:13] LABS: Troponin I < 0.05 ng/mL (0.00-0.06)
[2019-01-10] MEDS: Doxycycline Hyclate 100 MG CAP PO ×2 (22:28)
[2019-01-10] MEDS: predniSONE 20 MG TAB 40 MG PO (22:32)
== END 2019-01-10 21:34 | disposition home or self-care (01) ==
PROVIDERS: Emergency Provider Physician Assistant; PCP Student in an Organized Health Care Education/Training Program
DX: J44.9 Chronic obstructive pulmonary disease, unspecified (principal); J18.9 Pneumonia, unspecified organism; R07.1 Chest pain on breathing
CPT/HCPCS: 36415; 80053; 93005; 94640; 96374; 99285; 71046; 83735; 83880; 84484; 85025; 85610; 85730; 93010; J7512; J7613; J7620

== ENCOUNTER → 2019-03-07 12:44 | Outpatient (BNVA) | payer MEDICARE, SELFPAY | PROVIDERS: PCP Student in an Organized Health Care Education/Training Program; Referring Provider Student in an Organized Health Care Education/Training Program; Visit Provider Surgery | DX: L98.8 Other specified disorders of the skin and subcutaneous tissue (principal); J44.9 Chronic obstructive pulmonary disease, unspecified; F17.210 Nicotine dependence, cigarettes, uncomplicated; Z99.81 Dependence on supplemental oxygen | CPT/HCPCS: 99212; 99213 ==

== ENCOUNTER 2019-04-02 07:51 | Day surgery (SDC) | payer MEDICARE, SELFPAY ==
--- NOTE | 2019-04-01 17:20 | W.PM.HP.N ---
Date of service: 04/02/19 Time of Service: 09:00 Assessment and Plan Assessment and plan (1) Gastritis with intestinal metaplasia of stomach: Status: Acute (2) Grieving: Status: Acute (3) Oxygen dependent: Status: Chronic (4) Palliative care patient: Status: Chronic (5) Tobacco use: Status: Chronic (6) COPD (chronic obstructive pulmonary disease): Status: Acute (7) Cyst of skin and subcutaneous tissue: Status: Acute Assessment and plan: Risks include but not limited to: Bleeding, infection, recurrence, need for removal of more tissue that should come back as a cancer, need to heal by secondary intention, and complications of anesthesia including CT CVA and . She will need a ride home from the hospital. She will be able to do local wound care. She will need to come in for suture removal. History of Present Illness Consults Consult date: 04/02/19 Narrative: pt seen and examined this am. She has a chronic dry cough- non productive. no fever/chills. her breathing today is the same as always. she did not take the morphine this am. the lesions are currently not infected and are marked in preOp. reviewed risks/warning signs/wound care w/ the pt. stable for procedure. Cyst: pt would like to have them removed. she wants to have anesthesia to have them done. I do not think this necessary, and given her COPD, I don't anticipate that anesthesia will give her anything more than some versed and do them under strait local w/ relaxation. risks: Bleeding, infection, scar, recurrence, need to heal by secondary intent, complications of anesthesia. If this lesion is cancerous (doubt)- she will need to have more tissue removed. she will have sutures adn need to come back to have them removed and will need to do local wound care at home. HPI Skin Lesion/Cyst/Abscess pt has x2 cystic lesions i the michaela-rectal area they grow and shrink. occ will have drainage. She has never had them removed in the past. no signs of acute infection. Pt seen and marked in preOp. pt is suppose to be on home O2 and will not wear it. She was recently stared on lg dose of po MS BID for air hunger s/s. 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 Smoked since 16yo. Surgical History Biopsy of breast bilaterally Colonoscopy - IV Sedation Correction, Hammertoe Dilation and curettage Endometrial Ablation H/O esophagogastroduodenoscopy (Inactive) H/O surgical procedure (Inactive) a. Hysterectomy b. Bilateral breast biopsies History of appendectomy (Chronic ~2013) Hx of bladder repair surgery (Chronic) Bladder sling Hysterectomy, Laproscopic 2007 for bleeding Ligation of fallopian tube Oophrectomy, Right with hyst , Ectopic Family History Mother Heart disease Hypertension Father Personal history of malignant neoplasm Lung CA Hypertension Sister Asthma Depression Social History Smoking/Tobacco Use Status: Current every day Tobacco Type: cigarettes Smoking packs per day: 0.5 Smoking cigarettes per day: 10.0 Years smoked: 32 Smoking pack-years: 16.00 Alcohol Intake: current Alcohol Intake frequency: holidays/special occasions only Drug use: Never Substance use type: does not use Details: Patient uses CBD Caregiver/Support person: No Household members: family Housing: house Number of Children: 1 Communication Needs: None Do you need help understanding health information?: Rarely current occupation: Disabled Sexually active: Yes Do you think of yourself as: straight/heterosexual Current gender identity: female What type of physical activity do you participate in: bicycling Frequency: 1-2 times per week Seatbelt use: always Helmet use: No Water heater temp set <120 deg: Yes Working smoke detector in home: Yes Fire extinguisher in home: Yes Carbon monox detector in home: Yes Firearms in home: Yes Do you feel safe at home: Yes Do you feel safe in your relationship?: Yes Meds Home Medications and Allergies Home Medications Medication Instructions Recorded Confirmed Type Spiriva with HandiHaler 1 cap PO DAILY 06/21/12 04/02/19 History omeprazole [Prilosec] 40 mg PO DAILY 02/21/14 04/02/19 History Oxygen #1 each 07/28/18 03/16/19 History citalopram 20 mg tablet 20 mg PO DAILY 07/28/18 04/02/19 History trazodone 100 mg tablet 200 mg PO QHS PRN tab 07/28/18 04/02/19 History Breo Ellipta 1 inh INHALATION DAILY 08/07/18 04/02/19 History albuterol sulfate 90 mcg/actuation 2 puff IH Q6H PRN 02/08/19 04/02/19 History aerosol inhaler diltiazem HCl 30 mg tablet 60 mg PO HS #90 tab 02/21/19 04/02/19 Rx ipratropium-albuterol 0.5 mg-3 3 ml IH QID PRN #360 ml 02/21/19 04/02/19 Rx mg(2.5 mg base)/3 mL nebulization soln mirabegron 25 mg tablet,extended 25 mg PO DAILY #90 tab 02/21/19 04/02/19 Rx release 24 hr levothyroxine 75 mcg tablet 75 mcg PO DAILY #90 tab 02/23/19 04/02/19 Rx morphine 15 mg immediate release 15 mg PO BID PRN #10 tab MDD 15mg 03/16/19 04/02/19 Rx tablet bupropion HCl [Wellbutrin SR] 150 mg PO BID 04/02/19 04/02/19 History citalopram [Celexa] 40 mg PO DAILY 04/02/19 04/02/19 History montelukast [Singulair] 10 mg PO NOW 04/02/19 04/02/19 History Allergies Allergy/AdvReac Type Severity Reaction Status Date / Time atomoxetine [From Strattera] Allergy Intermediate Verified 03/16/19 15:41 vancomycin Allergy Intermediate Hives Verified 03/16/19 15:41 sertraline HCl [From Zoloft] AdvReac Severe worsens Verified 03/16/19 15:41 depression Exam Const General: cooperative, healthy appearing, comfortable, no acute distress, well developed and well groomed Nutritional Appearance: average body habitus and well nourished Orientation: alert, awake and oriented x3 [facility] Head: normal to inspection, normocephalic and atraumatic Ears: hearing grossly normal bilaterally and external ears normal General nose exam: external nose normal Face and sinus: normal facial exam and sinuses nontender Mouth: oral mucosae normal, lip normal, tongue normal and moist mucous membranes Teeth and gingiva: dentition normal Eyes General: appearance normal, both eyes and all related structures Conjunctivae: conjunctivae normal Sclera: sclerae normal Pupils: PERRL Neck Neck: normal visual inspection and full ROM Chest Chest: normal inspection of the chest Resp Effort & Inspection: normal respiratory effort, able to speak in complete sentences, cough, no nasal flaring, not tachypneic and no use of accessory muscles Auscultation: clear to auscultation bilaterally, no rales, no rhonchi and no wheezes Other: BS are present but decreased in all herrera Cardio Jugular venous pressure: no JVD Rate: regular rate Rhythm: regular rhythm GI Inspection: normal to inspection, no edema and non-distended Palpation: soft, no masses, nontender and No ascites Auscultation: normal bowel sounds Skin General skin exam: no rashes or lesions noted Trauma: no lacerations or abrasions Neuro General: alert, oriented x3, oriented, gait normal, moves all extremities, no focal motor deficits and CN's II-XI intact bilaterally Cognition: normal cognition Speech: speech normal Gait: normal gait Motor: muscle tone normal throughout Extrem General: normal to inspection, full ROM and no clubbing, cyanosis or edema Psych Appearance: grossly normal and well kempt Mental Status: mental status grossly normal Speech and Movement: speech and movement normal Affect: normal affect
[2019-04-02 08:17] VITALS: BP 110/71; PULSE 79; RESP 18; TEMP 36.5; O2SAT 91
[2019-04-02] MEDS: Lactated Ringers 1,000 ML 80 ML IV (08:44)
--- NOTE | 2019-04-02 10:13 | BOWEL_PTH ---
PATIENT: Jessie Sanchez LOC: [facility] U#:[id number] AGE/SX: 48/F ROOM: RE04/02/[address]: Karuna Santana : 1970 BED: DIS: 04/02/2019 SPEC #: [id number] RECD: 04/02/19 13:07 STATUS: LUCIA RE #: [id number] VERONIKA: 04/02/19 10:[address]: Karuna Santana DEPT: Surgical Specimen RECD BY: Celeste Watts ENTERED: 04/02/19 13:07 SP TYPE: Bowel OTHR DR: Belkys Bundy DO Tissues: 1 - BIOPSY BOWEL 2 - BIOPSY BOWEL Procedures: GROSS AND MICRO LEVEL 4 Comments: [id number]
--- NOTE | 2019-04-02 10:26 | PDOC.DSDIS_ITS ---
Discharge Plan Disposition Patient Disposition: HOME Condition: Good Discharge Details Reason For Visit: perineal cyst removal x2 Attending Provider: Karuna Santana Primary Care Provider: Belkys Bundy Home Meds and New Rx's Prescriptions: No Action Myrbetriq 25 mg tablet extended release 24 hr 25 mg PO DAILY Qty: 90 RF: 3 diltiazem HCl [Cardizem] 30 mg tablet 60 mg PO HS Qty: 90 RF: 3 ipratropium-albuterol 0.5 mg-3 mg(2.5 mg base)/3 mL solution for nebulization 3 ml IH QID PRN (Reason: shortness of breath or wheezing) Qty: 360 RF: 1 morphine 15 mg tablet 15 mg PO BID MDD 15mg PRN (Reason: shortness of breath) Qty: 10 RF: 0 trazodone 100 mg tablet 200 mg PO QHS PRNRF: 0 citalopram 20 mg tablet 20 mg PO DAILY RF: 0 Hold Instructions: Home Medication placed on hold at Doctor's office (DME) Oxygen Tank See Dose Instructions .ROUTE .MEDSUPPLY Qty: 1 RF: 0 albuterol sulfate [Ventolin HFA] 90 mcg/actuation HFA aerosol inhaler 2 puff IH Q6H PRNRF: 0 levothyroxine 75 mcg tablet 75 mcg PO DAILY Qty: 90 RF: 3 Spiriva with HandiHaler 18 MCG capsule, w/inhalation device 1 cap PO DAILY RF: 0 omeprazole [Prilosec] 20 MG capsule,delayed release(DR/EC) 40 mg PO DAILY RF: 0 bupropion HCl [Wellbutrin SR] 150 mg tablet sustained-release 12 hr 150 mg PO BID RF: 0 citalopram [Celexa] 40 mg tablet 40 mg PO DAILY RF: 0 montelukast [Singulair] 10 MG tablet 10 mg PO NOW RF: 0 Breo Ellipta 200-25 mcg/dose Blister With Device 1 inh INHALATION DAILY RF: 0 Discharge Instructions Additional Instructions: Caring for Your Incision You?ll need to help care for your incision after surgery and certain medical p rocedures. To close an incision, your healthcare provider used stitches (sutures), special strips of surgical tape called Steri-Strips, surgical payal, or surgical skin glue. Follow the tips on this sheet to help stop bleeding, speed healing, and prevent infection of your incision. Pain Control Use ice! Ice keeps the swelling down and swelling is what causes pain. Never apply ice directly to the skin. Wrap it in a towel or cloth. Apply ice 20 minutes on and 20 minutes off for pain control. Use as needed. Take tylenol 325 mg by mouth with food every 4 hours as needed for pain. Do not take tylenol if you have a history of heavy drinking , hepatits C or liver problems. Types of incision closures ? Surgical stitches (sutures) are placed by sewing the edges of an incision together with surgical thread. Sutures are either absorbable or non-absorbable. Absorbable sutures break down in the body over time. Non-absorbable sutures need to be removed. ? Home care ? Always wash your hands before touching your incision. ? Keep the incision clean, dry, and out of water, keep the incision out of water. ? Do not to pick at the scabs. Scabs help protect the wound. ? You can take a shower in 24 hours and wash the incision with soap and water. Pat dry/don?t scrub. It?s OK to wash around the incision. But don?t spray water directly on it. ? Pat stitches dry if they get wet. Don't rub. ? Check the incision site daily for pain, redness, drainage, swelling, or separation of the incision edges. ? If there is a bandage (dressing) over the incision, change this every 24 hours as instructed by your provider. Using clean hands change the dressing as directed by your healthcare provider. Always wash your hands before changing your dressing. ? Make sure any clothing that touches the incision is loose-fitting. This will prevent rubbing. If the incision is on the head, keep your child from wearing caps or other head coverings. These may rub against the incision. ? Try to avoid from rough play, contact sports, or physical activities for two weeks. This can put you at risk of opening the incision. ? Make sure you avoid doing things that could cause dirt or sweat to get in or on the incision. -wash incisions after using the bathroom. As your incision heals, the skin may appear pink or red. It may also feel slightly bumpy or raised. This is called a healing ridge. Over time, the color should fade and the raised skin will become less noticeable. Care for specific closures : ? Sutures or pyaal. Once you no longer need to keep these dry, clean the incision or wound daily, generally after the first 24 hours. First remove the bandage using clean hands. Then wash the area gently with soap and warm water. Use a wet cotton swab to loosen and remove any blood or crust that forms. After cleaning, put a thin layer of antibiotic ointment on. Then put on a new bandage. Follow-up care Payal or sutures generally need to be removed in 7-10 days. Be sure to return for suture or staple removal as directed. If dissolving stitches were used in your mouth, these will not need to be removed. They should fall out or dissolve on their own. If tape closures were used, remove them yourself when your healthcare provider tells you to if they have not fallen off on their own. When to seek medical care Call your healthcare provider right away if you have any of these: ? More pain, redness, swelling, bleeding, or foul-smelling discharge around the incision area ? Fever of 101?F (38.3?C) or higher, or as directed by your child's healthcare provider ? Shaking chills ? Vomiting or nausea that doesn?t go away ? Numbness, coldness, or tingling around the incision area, or changes in skin color ? Opening of the sutures or wound Stitches or payal come apart or fall out or surgical tape falls off before 7 days, or as directed by your healthcare provider [facility] on Tuesday to make gabriel w/ Dr. Santana in 7-10 days. [phone] Activity:: Activity as Tolerated Remove Dressings/Wound Care:: 24 hours Shower/Bathe:: 24 hours Diet:: As Tolerated DS: Diagnosis Discharge Diagnosis (1) Gastritis with intestinal metaplasia of stomach: Status: Acute (2) Grieving: Status: Acute (3) Oxygen dependent: Status: Chronic (4) Palliative care patient: Status: Chronic (5) Tobacco use: Status: Chronic (6) COPD (chronic obstructive pulmonary disease): Status: Acute (7) Cyst of skin and subcutaneous tissue: Status: Acute
--- NOTE | 2019-04-02 10:31 | W.PM.OP ---
Date of service: 04/02/19 Time of Service: 10:31 Operative Note Operative Note DATE OF PROCEDURE: 04/02/19 PRE-OP DIAGNOSIS: perineal cysts x2 POST-OP DIAGNOSIS: same PROCEDURE: excision SURGEON: Karuna Santana ANESTHESIA: local ESTIMATED BLOOD LOSS: 2 COMPLICATIONS: None Patient was transported to: same day Patient's condition: stable Procedure Description: dictated.
[2019-04-02 10:57] VITALS: BP 110/75; PULSE 72; RESP 16; TEMP 36.4; O2SAT 92
--- NOTE | 2019-04-02 12:25 | ROE_ITS ---
DATE OF PROCEDURE April 02, 2019 PREOPERATIVE DIAGNOSES Cyst x2 in the perirectal region, one is larger and medial, one is smaller and lateral. Both are at the 3 o'clock position. POSTOPERATIVE DIAGNOSES Cyst x2 in the perirectal region, one is larger and medial, one is smaller and lateral. Both are at the 3 o'clock position. PROCEDURE Excision. SURGEON Karuna Santana D.O. ANESTHESIA Local and IV sedation. COMPLICATIONS The patient tolerated the procedure well without complications. INDICATIONS Ms. Sanchez is a 48-year-old female with two cysts in the perirectal region that she would like removed. Informed consent is obtained, explaining the risks and benefits of the procedure including, not limited to bleeding, infection, scarring, need to heal by secondary intent, recurrence, need for removal of more tissue and other complications. The patient was marked in Preop. DESCRIPTION OF PROCEDURE The patient is brought to the Operating Suite and placed in stirrups. Timeout is performed. The area was prepped and draped in the usual sterile fashion using a Betadine scrub solution. Infiltrated in total of 10 cc of 0.25% Marcaine. Each of the lesions were excised using #15 blade. The medial lesion is about a 1 cm. The proximal lesion is about 0.5 cm in size. They were sent for Pathology. They were closed with #3-0 Monocryl. Sterile dressing was applied. The patient tolerated the procedure well without complication and transferred to the Recovery room in stable condition. Prior to placing a dressing they were each infiltrated with 5 cc of Exparel for pain control. CC: Belkys Bundy. [place]
== END 2019-04-02 11:10 | disposition home or self-care (01) ==
PROVIDERS: PCP Student in an Organized Health Care Education/Training Program; Visit Provider Surgery
PROC: (CPT 11420; principal; 2019-04-02 09:15)
DX: L72.8 Other follicular cysts of the skin and subcutaneous tissue (principal); J44.9 Chronic obstructive pulmonary disease, unspecified; Z99.81 Dependence on supplemental oxygen; F17.210 Nicotine dependence, cigarettes, uncomplicated
CPT/HCPCS: 11420; 11421; 88305; NC; J2250

== ENCOUNTER 2020-01-11 09:35 | Outpatient (CLI) | payer MEDICARE, SELFPAY ==
[2020-01-13 13:46] LABS: Patient Race White; SARS-CoV-2 RNA Undetected (Undetected); SARS-CoV-2 Specimen Source Nasopharynx
== END 2020-01-11 09:55 ==
PROVIDERS: PCP Student in an Organized Health Care Education/Training Program; Visit Provider Family Medicine
DX: R05 Cough (principal)
CPT/HCPCS: U0003

== ENCOUNTER 2020-01-14 17:12 | Emergency (ER) | payer MEDICARE, SELFPAY ==
[2020-01-14 17:26] VITALS: BP 135/105; PULSE 90; RESP 14; TEMP 36.8; O2SAT 94
--- NOTE | 2020-01-14 17:30 | DI.CT_ITS ---
EXAM: CT ABDOMEN PELVIS W INDICATION: Abd pain, N/V/D. COMPARISON: CT ABD PELVIS WITH CONTRAST from 04/04/2016 CT ABD PELVIS WITH CONTRAST from 04/04/[address] chest PE CTA from 03/28/2018 TECHNIQUE: FINDINGS: CT examination of the abdomen and pelvis was performed with a bolus infusion of 100 cc of Omnipaque 3 50. Images obtained through the lung bases are unremarkable. Is marked motion artifact which which p revents good visualization of upper abdominal organs, however liver, spleen pancreas, gallbladder, an d bile ducts are grossly unremarkable. Note is made of apparent colonic wall edema essentially the entire there is focal inflammation associ ated with the distal descending colon which may be associated colitis versus acute localized divertic ulitis. Findings involving the colon are similar to those identified on prior study of March 2016 and may be chronic or recurrent. The distal descending pericolonic fat inflammation/edema is new. Adrenals and kidneys are unremarkable. Urinary bladder unremarkable. Abdominal aorta is of normal diameter and no major vascular abnormality is seen. No abdominal wall hernia. No abdominal or pelvic adenopathy. Uterus and ovaries are not well visualized and may be absent.. Appendix nonvisualized. No evidence of bowel obstruction. IMPRESSION: Findings suggesting diffuse colitis with particularly prominent focal inflammation and pericolonic fa t edema in the distal descending colon. Please correlate clinically. RADIATION DOSE DELIVERED: 960.36mGy.cm Total DLP 960.36mGy.cm Total DLP
--- NOTE | 2020-01-14 17:40 | ED.GENADUL_ITS ---
Discharge Plan Disposition Patient Disposition: HOME Condition: Stable Discharge Details Clinical Impression: Colitis, Diarrhea Primary Care Provider: Belkys Bundy ED Provider: Val Roberto Home Meds and New Rx's Prescriptions: New dicyclomine 20 mg tablet 20 mg PO BID PRN (Reason: stomach upset) 7 Days Qty: 14 RF: 0 ondansetron HCl [Zofran] 4 mg tablet 4 mg PO Q8H PRN (Reason: nausea and vomiting) Qty: 14 RF: 0 No Action Myrbetriq 25 mg tablet extended release 24 hr 25 mg PO DAILY Qty: 90 RF: 3 ipratropium-albuterol 0.5 mg-3 mg(2.5 mg base)/3 mL solution for nebulization 3 ml IH QID PRN (Reason: shortness of breath or wheezing) Qty: 360 RF: 1 cyclobenzaprine 10 mg tablet 10 mg PO BID PRN (Reason: muscle spasm) Qty: 10 RF: 1 trazodone 100 mg tablet 200 mg PO QHS PRNRF: 0 citalopram 20 mg tablet 20 mg PO DAILY RF: 0 Hold Instructions: Home Medication placed on hold at Doctor's office (DME) Oxygen Tank See Dose Instructions .ROUTE .MEDSUPPLY Qty: 1 RF: 0 morphine 10 mg/5 mL solution 5 mg PO Q4H MDD 5mg liquid PRN (Reason: pain) Qty: 100 RF: 0 morphine 15 mg tablet 7.5 mg PO QHS MDD 15mg PRN (Reason: shortness of breath) Qty: 14 RF: 0 Trelegy Ellipta 100-62.5-25 mcg blister with device 1 inh IH DAILY RF: 0 albuterol sulfate [Ventolin HFA] 90 mcg/actuation HFA aerosol inhaler 2 puff IH Q6H PRNRF: 0 levothyroxine 75 mcg tablet 75 mcg PO DAILY Qty: 90 RF: 3 diltiazem HCl [Cardizem] 30 mg tablet 60 mg PO HS Qty: 90 RF: 3 bupropion HCl [Wellbutrin SR] 150 mg tablet sustained-release 12 hr 150 mg PO BID Qty: 60 RF: 3 montelukast [Singulair] 10 mg tablet 10 mg PO DAILY Qty: 90 RF: 3 omeprazole 40 mg capsule,delayed release(DR/EC) 40 mg PO DAILY Qty: 90 RF: 3 ibuprofen 800 mg tablet 800 mg PO BID PRN (Reason: pain) Qty: 60 RF: 1 citalopram [Celexa] 40 mg tablet 40 mg PO DAILY RF: 0 Discharge Instructions Instructions: Acute Diarrhea (ED), Colitis (ED) Additional Instructions: Follow up with primary care provider in 3-5 days. Return to ED sooner if any worsening or concerns. Increase oral fluids. Please take Tylenol or Ibuprofen with food every 4-6 hours as needed for pain and swelling. Take medications as prescribed. Please take oral electrolyte fluids while having diarrhea to replenish electrolytes. Try Imodium after 2 to 3 days of continued diarrhea. Return if greater than 7-10 episodes of diarrhea a day lasting for longer than 3 days. Referrals: Belkys Bundy DO [Primary Care Provider] - Medical Decision Making Work-up ordered including CBC, CMP, stool studies including ova and parasites, will give Zofran and 1 L normal saline. Magnesium is low at 1.7, potassium is 3.2, will replenish magnesium with 1 g magnesium sulfate IV piggyback, 40 mEq of potassium p.o. liquid given. CT abdomen pelvis with IV contrast shows mild colitis diverticula no diverticulitis. COMPARISON: CT ABD PELVIS WITH CONTRAST 04/04/2016 9:39 AM FINDINGS: Liver: See Stomach and bowel finding. Gallbladder and bile ducts: Normal. No calcified stones. No ductal dilation. Pancreas: Normal. No ductal dilation. Spleen: Normal. No splenomegaly. Adrenals: Normal. No mass. Kidneys and ureters: The kidneys appear unremarkable, but there is a region of breathing motion artifact at the level of the superior poles of the kidneys, limiting evaluation of this region. Stomach and bowel: Again noted are regions mild segmental wall thickening throughout the colon which have overall improved. Since prior study, there is increased fatty infiltration of the submucosa of multiple colonic segments, suggesting sequela of prior episodes of colitis. There is a region of persistent inflammatory change involving the distal descending colon, as seen around image 55, series 4, suggesting recurrent mild colitis in this region. No pericolonic fluid collections are identified. There is no extraluminal air. There are scattered colonic diverticula without evidence for diverticulitis. Appendix: The appendix is not visualized, likely status post appendectomy. Intraperitoneal space: Unremarkable. No free air. No significant fluid collection. Vasculature: Unremarkable. No abdominal aortic aneurysm. Lymph nodes: Unremarkable. No enlarged lymph nodes. Urinary bladder: Unremarkable as visualized. Reproductive: Patient is status post hysterectomy. Bones/joints: There are changes of mild degenerative disc disease at multiple lower thoracic and upper lumbar levels, similar to prior study. Again noted is a tiny triangular ossified fragment at the anterior superior aspect of the L4 vertebra consistent with limbus vertebra as sequela of old trauma. Soft tissues: Unremarkable. IMPRESSION: The prior findings of colitis have improved, with findings suggesting residual region of mild colitis involving the distal descending colon, which may be infectious or inflammatory etiology. Recommend clinical correlation. Thank you for allowing us to participate in the care of your patient. Dictated and Authenticated by: Dario Moreno MD Discussed CT results with patient who verbalizes understanding. Will discharge home with instructions to use oral electrolyte replenish drinks while having diarrhea. Prescription given for Zofran and dicyclomine for muscle cramps and nausea. Discuss strict return instructions, verbalized understanding. Patient was observed in the department for approximately 3 hours remained hemodynamically stable throughout stay. This text was generated using Sqwiggleation system, please disregard any oddities of phrase or misspellings. HPI General Mode of arrival: ambulatory . Date/Time Provider Initiated Documentation: 01/14/20 17:32 . Limitations to Documentation: no limitations . Information obtained by: patient . HPI Narrative: 49-year-old female presents to the ER with a chief complaint of diarrhea and bilateral lower abdominal cramping since this morning. Patient states that she has had too many to count episodes of diarrhea. She denies any hematochezia dark or bloody stools. Denies any sick contacts. She denies any vomiting or fever or chills. She denies any dysuria or any other complaints. She has a past medical history of COPD, depression, kidney stones, surgical history includes urinary bladder repair with mesh, hysterectomy and bilateral lumpectomies. Related Data Home Medications Medication Instructions Recorded Confirmed Oxygen #1 each 07/28/18 12/24/19 citalopram 20 mg tablet 20 mg PO DAILY 07/28/18 12/24/19 trazodone 100 mg tablet 200 mg PO QHS PRN tab 07/28/18 12/24/19 albuterol sulfate 90 mcg/actuation 2 puff IH Q6H PRN 02/08/19 12/24/19 aerosol inhaler ipratropium 0.5 mg-albuterol 3 mg 3 ml IH QID PRN #360 ml 02/21/19 12/24/19 (2.5 mg base)/3 mL nebulization soln mirabegron 25 mg tablet,extended 25 mg PO DAILY #90 tab 02/21/19 12/24/19 release 24 hr levothyroxine 75 mcg tablet 75 mcg PO DAILY #90 tab 02/23/19 12/24/19 citalopram [Celexa] 40 mg PO DAILY 04/02/19 12/24/19 morphine 10 mg/5 mL oral solution 5 mg PO Q4H PRN #100 ml MDD 5mg 08/22/19 12/24/19 liquid morphine 15 mg immediate release 7.5 mg PO QHS PRN #14 tab MDD 15mg 08/22/19 12/24/19 tablet diltiazem HCl 30 mg tablet 60 mg PO HS #90 tab 09/05/19 12/24/19 bupropion HCl 150 mg tablet,12 hr 150 mg PO BID #60 tab 09/10/19 12/24/19 sustained-release fluticasone fur. 100 mcg-umeclid 1 inh IH DAILY 09/21/19 12/24/19 62.5 mcg-vilant 25 mcg inhalat.powder montelukast 10 mg tablet 10 mg PO DAILY #90 tab 10/04/19 12/24/19 omeprazole 40 mg capsule,delayed 40 mg PO DAILY #90 cap 11/17/19 12/24/19 release ibuprofen 800 mg tablet 800 mg PO BID PRN #60 tab 11/24/19 12/24/19 cyclobenzaprine 10 mg tablet 10 mg PO BID PRN #10 tab 11/28/19 12/24/19 dicyclomine 20 mg PO BID PRN 7 Days #14 tab 01/14/20 ondansetron HCl [Zofran] 4 mg PO Q8H PRN #14 tab 01/14/20 Previous Rx's Medication Instructions Recorded ipratropium 0.5 mg-albuterol 3 mg 3 ml IH QID PRN #360 ml 02/21/19 (2.5 mg base)/3 mL nebulization soln mirabegron 25 mg tablet,extended 25 mg PO DAILY #90 tab 02/21/19 release 24 hr levothyroxine 75 mcg tablet 75 mcg PO DAILY #90 tab 02/23/19 morphine 10 mg/5 mL oral solution 5 mg PO Q4H PRN #100 ml MDD 5mg 08/22/19 liquid morphine 15 mg immediate release 7.5 mg PO QHS PRN #14 tab MDD 15mg 08/22/19 tablet diltiazem HCl 30 mg tablet 60 mg PO HS #90 tab 09/05/19 bupropion HCl 150 mg tablet,12 hr 150 mg PO BID #60 tab 09/10/19 sustained-release montelukast 10 mg tablet 10 mg PO DAILY #90 tab 10/04/19 omeprazole 40 mg capsule,delayed 40 mg PO DAILY #90 cap 11/17/19 release ibuprofen 800 mg tablet 800 mg PO BID PRN #60 tab 11/24/19 cyclobenzaprine 10 mg tablet 10 mg PO BID PRN #10 tab 11/28/19 dicyclomine 20 mg PO BID PRN 7 Days #14 tab 01/14/20 ondansetron HCl [Zofran] 4 mg PO Q8H PRN #14 tab 01/14/20 Allergies Allergy/AdvReac Type Severity Reaction Status Date / Time atomoxetine [From Strattera] Allergy Intermediate Verified 01/14/20 17:30 vancomycin Allergy Intermediate Hives Verified 01/14/20 17:30 sertraline HCl [From Zoloft] AdvReac Severe worsens Verified 01/14/20 17:30 depression General Stated Complaint: Nausea/Vomit/Diar TK: 3 Review of Systems Narrative: Constitutional: Negative for weight loss, alert and oriented, well groomed, normal body habitus, appears comfortable. HEENT: Denies trauma, headaches, blurry vision, nasal discharge, sore throat, trouble swallowing. Chest: Denies chest pain, palpitations, irregular rhythm, hypertension. Respiratory: Denies Shortness of breath, cough, hemoptysis. GI: Denies vomiting, constipation. Positive lower abdominal pain and diarrhea since this morning. : Denies dysuria, hematuria, flank pain, rectal bleeding. Neuro: Denies dizziness, blurry vision, weakness, syncope, headache or facial numbness. Hematologic: Denies easy bruising, intolerance to heat or cold, hair loss. PFSH Medical History Abdominal pain Anxiety MTFHR mutation Back pain Mid-back pain .. acute on chronic issues (Hx Chiro helping). SHort term mm relax, PT, will refer to chiro if requested. 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 Hysterectomy b. Bilateral breast biopsies History of appendectomy (~2013) Hx of bladder repair surgery Bladder sling Hysterectomy, Laproscopic 2007 for bleeding Ligation of fallopian tube Oophrectomy, Right with hyst , Ectopic Family History Mother , age 70 in December 2018 Heart disease Hypertension End stage COPD AAA (abdominal aortic aneurysm) Father , age 72 in September 2017 from COPD Personal history of malignant neoplasm Lung CA Hypertension End stage COPD Lung cancer Smoker Sister Asthma Depression Son No problems noted. Social History Smoking/Tobacco Use Status: Current every day Tobacco Type: cigarettes Tobacco: How many years used: 35 Quit status: considering quitting Second Hand Exposure: No Counseling given: provider counseling and counseling >10 minutes Alcohol Intake: current Alcohol Intake frequency: holidays/special occasions only Drug use: Never Substance use type: does not use Details: Patient uses CBD Caregiver/Support person: Yes Household members: family Housing: house Number of Children: 1 number of grandchildren: 0 Communication Needs: None Education Level: high school Do you need help understanding health information?: Rarely current occupation: Disabled Sexually active: Yes Do you think of yourself as: straight/heterosexual Current gender identity: female What is your relationship status?: living with partner How often do you talk on the phone with friends or family?: twice per week How often do you get together with friends or relatives?: once per week Panel score (0-1 are the most socially isolated patients): 2 What type of physical activity do you participate in: walking, sedentary lifestyle and additional Details: had stationary bike, woman who owned it took it back; Pulm Rehab referral Duration: < 15 minutes/day Frequency: 1-2 times per week Special jorge needs: No Agree to transfusion: Yes Seatbelt use: always Helmet use: No Water heater temp set <120 deg: Yes Working smoke detector in home: Yes Fire extinguisher in home: Yes Carbon monox detector in home: Yes Firearms in home: Yes Do you feel safe at home: Yes Do you feel safe in your relationship?: Yes Additional Social history: Lives with long-term partner, father of her son, not . On disability for her COPD. Has gained quite a bit of weight since she quit work. Not much social life otherwise. Isolated. Plays games on her computer for hours. Independent with all ADLs, does her own housework. Back to smoking. Plans to quit again. Exam Narrative Exam Narrative: Constitutional: Alert and oriented x3. Appears stated age. Normal body habitus. Head: Normocephalic, no trauma. Eyes: Pupils PERRLA, Red reflex noted, EOM's intact. Eyelids symmetrical without lesions, discharge, or swelling. ENT: Bilateral TM's WNL, External ear normal to inspection, no mastoid TTP, swelling, or erythema, Nasal turbinates WNL, no nasal discharge. Normal dentition, Posterior pharynx WNL, no exudate. Chest: RRR, Normal S1, S2, distal pulses intact. Resp: Lungs clear to auscultation bilaterally, no wheezes, rales, or rhonchi. Abdomen: Soft, tender to left lower and right lower quadrant. Musculoskeletal: Normal gait, 5/5 strength to all four extremities. Skin: No suspicious rashes or lesions. Capillary refill less than 2 sec. Neurologic: Cranial nerves II-XII intact. Alert and oriented x 3. DTR's intact. Hematologic/Lymphatic: No ecchymosis, no lymphadenopathy. Course Vital Signs Vital signs: Vital Signs Temperature 36.8 C 01/14/20 17:26 Pulse 90 01/14/20 17:26 Respiratory Rate 14 01/14/20 17:26 Blood Pressure 135/105 H 01/14/20 17:26 Pulse Oximetry 94 01/14/20 17:26 Temperature 36.8 C 01/14/20 17:26 Temperature Source Skin 01/14/20 17:26 Pulse 90 01/14/20 17:26 Respiratory Rate 14 01/14/20 17:26 Respiratory Effort Non-Labored 01/14/20 17:34 Blood Pressure 135/105 H 01/14/20 17:26 Blood Pressure Position Supine 01/14/20 17:26 Pulse Oximetry 94 01/14/20 17:26 Oxygen Delivery Method Room Air 01/14/20 17:26 Oxygen Flow Rate 0 01/14/20 17:26 Pain Level 9 01/14/20 17:26 Lab/Test Results Lab/Test Results: 01/14/20 17:38 Stool Stool Occult Blood (ECTOR) - Pending
[2020-01-14] MEDS: Normal Saline 1,000 ML 1000 ML IV (17:51)
[2020-01-14 17:52] LABS: Abs Immature Grans 0.02 10^3/uL (0.0-0.06); Absolute Basophil Count 0.04 10^3/uL (0.0-0.2); Absolute Eosinophil Count 0.08 10^3/uL (0.0-0.7); Absolute Lymphocyte Count 1.57 10^3/uL (1.2-3.4); Absolute Monocyte Count 0.43 10^3/uL (0.1-0.8); Absolute Neutrophil Count 5.06 10^3/uL (1.2-6.7); Basophils % 0.6; Eosinophils % 1.1; HCT 45.4 % (36.0-46.0); HGB 15.1 g/dL (11.2-15.7); Immature Grans % 0.3; Lymphocytes % 21.8; MCH 31.4 pg (27.0-33.0); MCHC 33.3 % (32.0-36.0); MCV 94.4 fL (80-95); MPV 9.7 fL (8.0-11.0); Neutrophils % 70.2; Nucleated RBC 0 %; Platelet Count 217 10^3/uL (130-400); RBC 4.81 10^6/uL (3.93-5.22); RDW 12.3 % (11.7-14.6); RDW-SD 43.3 fL
[2020-01-14] MEDS: Ondansetron 4 MG/2 ML VIAL IVP (17:52)
[2020-01-14] MEDS: Omnipaque 350 MG/ML 100 ML BTL IJ (17:55)
[2020-01-14] MEDS: Normal Saline - Diluent 50 ML VIAL IV (17:56)
[2020-01-14 18:09] LABS: ALT 8 U/L (14-59); AST 9 U/L (15-37); Albumin 3.3 g/dL (3.4-5.0); Alkaline Phosphatase 107 U/L (46-116); Anion Gap 8.6 mmol/L (3-11); BUN 5 mg/dL (7-18); Bilirubin, Total 0.3 mg/dL (0.2-1.0); CO2 26.4 mmol/L (21.0-32.0); Calcium 8.6 mg/dL (8.5-10.1); Chloride 106 mmol/L (98-107); Glucose 96 mg/dL (74-106); Magnesium 1.7 mg/dL (1.8-2.4); Potassium 3.2 mmol/L (3.5-5.1); Sodium 141 mmol/L (136-145); Total Protein 6.5 g/dL (6.4-8.2)
[2020-01-14] MEDS: Potassium Chloride Liquid 20 MEQ PKT 40 MEQ PO (18:31)
[2020-01-14] MEDS: MAGNESIUM SULFATE 1 GM/100 ML BAG IVPB (18:31)
--- NOTE | 2020-01-14 18:53 | DI.VRAD_ITS ---
PROCEDURE INFORMATION: Exam: CT Abdomen And Pelvis With Contrast Exam date and time: 01/14/2020 5:40 PM Age: 49 years old Clinical indication: Nausea and vomiting TECHNIQUE: Imaging protocol: Computed tomography of the abdomen and pelvis with intravenous contrast. COMPARISON: CT ABD PELVIS WITH CONTRAST 04/04/2016 9:39 AM FINDINGS: Liver: See Stomach and bowel finding. Gallbladder and bile ducts: Normal. No calcified stones. No ductal dilation. Pancreas: Normal. No ductal dilation. Spleen: Normal. No splenomegaly. Adrenals: Normal. No mass. Kidneys and ureters: The kidneys appear unremarkable, but there is a region of breathing motion artifact at the level of the superior poles of the kidneys, limiting evaluation of this region. Stomach and bowel: Again noted are regions mild segmental wall thickening throughout the colon which have overall improved. Since prior study, there is increased fatty infiltration of the submucosa of multiple colonic segments, suggesting sequela of prior episodes of colitis. There is a region of persistent inflammatory change involving the distal descending colon, as seen around image 55, series 4, suggesting recurrent mild colitis in this region. No pericolonic fluid collections are identified. There is no extraluminal air. There are scattered colonic diverticula without evidence for diverticulitis. Appendix: The appendix is not visualized, likely status post appendectomy. Intraperitoneal space: Unremarkable. No free air. No significant fluid collection. Vasculature: Unremarkable. No abdominal aortic aneurysm. Lymph nodes: Unremarkable. No enlarged lymph nodes. Urinary bladder: Unremarkable as visualized. Reproductive: Patient is status post hysterectomy. Bones/joints: There are changes of mild degenerative disc disease at multiple lower thoracic and upper lumbar levels, similar to prior study. Again noted is a tiny triangular ossified fragment at the anterior superior aspect of the L4 vertebra consistent with limbus vertebra as sequela of old trauma. Soft tissues: Unremarkable. IMPRESSION: The prior findings of colitis have improved, with findings suggesting residual region of mild colitis involving the distal descending colon, which may be infectious or inflammatory etiology. Recommend clinical correlation. Dictated and Authenticated by: Dario Moreno MD. Ordering:YAMILETH Neal MD
[2020-01-14 19:37] VITALS: BP 112/72; PULSE 75; RESP 16; O2SAT 92
== END 2020-01-14 19:45 | disposition home or self-care (01) ==
PROVIDERS: Emergency Provider Registered Nurse Emergency; PCP Student in an Organized Health Care Education/Training Program
DX: E83.42 Hypomagnesemia (principal); E87.6 Hypokalemia; K52.9 Noninfective gastroenteritis and colitis, unspecified; J44.9 Chronic obstructive pulmonary disease, unspecified; F17.210 Nicotine dependence, cigarettes, uncomplicated; Z99.81 Dependence on supplemental oxygen
CPT/HCPCS: 36415; 80053; 96361; 96365; 96375; 99285; 74177; 82272; 83630; 83735; 85025; 87177; 99284; J2405; J3475; J3490

== ENCOUNTER 2020-01-23 02:11 | Outpatient (CLI) | payer MEDICARE, SELFPAY ==
[2020-01-23 11:25] LABS: Anion Gap 5.7 mmol/L (3-11); BUN 5 mg/dL (7-18); CO2 32.3 mmol/L (21.0-32.0); CREATININE 0.94 mg/dL (0.55-1.02); Calcium 9.1 mg/dL (8.5-10.1); Chloride 104 mmol/L (98-107); Glucose 80 mg/dL (74-106); Magnesium 2.1 mg/dL (1.8-2.4); Potassium 3.7 mmol/L (3.5-5.1); Sodium 142 mmol/L (136-145)
== END 2020-01-23 02:31 ==
PROVIDERS: PCP Student in an Organized Health Care Education/Training Program; Visit Provider Student in an Organized Health Care Education/Training Program
DX: R19.7 Diarrhea, unspecified (principal); E83.42 Hypomagnesemia; K52.9 Noninfective gastroenteritis and colitis, unspecified; E87.6 Hypokalemia
CPT/HCPCS: 36415; 80048; 83735

== ENCOUNTER 2020-05-06 02:16 | Outpatient (CLI) | payer MEDICARE, SELFPAY ==
--- NOTE | 2020-05-06 06:15 | DI.US_ITS ---
APPROVED REPORT EXAM: Comprehensive 2D, Doppler, and color-flow Echocardiogram Patient Location: Out-Patient Chief Quality Officer: Maribell Ellsworth RDCS (AE) Indications: SOB, Fatigue, Smoker, F/H Aortic Aneurysm Other Information Study Quality: Adequate Conclusion Left Ventricle : The left ventricle is normal size. The left ventricular systolic function is normal. The left ventricular ejection fraction is within the normal range. There is normal left ventricular wall thickness. There is normal LV segmental wall motion. The left ventricular diastolic function is normal. LVEF is 60%. Right Ventricle : The right ventricle is normal size. The right ventricular systolic function is norm al. RVSP could not be estimated due to inadequate TR. Atria : The left atrium size is normal. The right atrium size is normal. Aortic Valve : The aortic valve is normal in structure. Aortic valve is trileaflet. Mild aortic regur gitation. There is no aortic valvular stenosis. Great Vessels : The aortic root is normal in size. The ascending aorta is normal in size. Aortic arch is not well visualized. IVC is normal in size and collapses >50% with inspiration. Please see remainder of report for additional details. Wall motion Left Ventricle The left ventricle is normal size. The left ventricular systolic function is normal. The left ventric ular ejection fraction is within the normal range. There is normal left ventricular wall thickness. T here is normal LV segmental wall motion. The left ventricular diastolic function is normal. There is no ventricular septal defect visualized. LVEF is 60%. Right Ventricle The right ventricle is normal size. The right ventricular systolic function is normal. Atria The left atrium size is normal. The right atrium size is normal. The interatrial septum is intact wit h no evidence for an atrial septal defect. Aortic Valve The aortic valve is normal in structure. Aortic valve is trileaflet. There is no aortic valvular sten osis. Mild aortic regurgitation. Mitral Valve The mitral valve is normal in structure. No evidence of mitral valve stenosis. Trace to mild mitral r egurgitation. Tricuspid Valve The tricuspid valve is normal in structure. There is no tricuspid valve stenosis. Trace tricuspid reg urgitation. Pulmonic Valve The pulmonary valve is normal in structure. There is no pulmonic valvular stenosis. Trace pulmonic re gurgitation. Great Vessels The aortic root is normal in size. The ascending aorta is normal in size. Aortic arch is not well vis ualized. IVC is normal in size and collapses >50% with inspiration. Pericardium Mild anterior pericardial effusion. 2D Dimensions IVSD d PLAX 0.74 cm F: 0.6-1.0 LV Vol A2C d MOD 58.9 mL LVPW d PLAX 0.72 cm F: 0.6 - 1.0 LV Vol A4C d MOD 72.4 mL LVID d PLAX 4.59 cm F: 3.8 - 5.2 LA vol/ BSA A2C s A-L 15.3 mL/m2 LVDs 3.05 cm F: 2.2 - 3.5 LA vol/ BSA A4C s A-L 18.7 mL/m2 Ao Root d 3.06 cm F: 2.7 - 3.3 LA Vol/ BSA Biplane s A-L 18.0 mL/m2 RA Area A4C 8.43 cm2 LA Area A4C s MOD 13.07 cm2 RA Vol/ BSA A4C s A-L 8.8 mL/m2 LA Area A2C s MOD 11.07 cm2 Ao Asc Diam d 3.12 cm F: 2.3 - 3.1 LV EF A4C MOD 61.8 % LV EF Teichholz 62.1 % LV EF A2C MOD 60.2 % LVEF ([facility]) 59.52 % F: 54 - 74 LV EF Biplane MOD 59.5 % LV Volume 51.29 mL F: 46 - 106 SV 39.09 mL LV Volume Index 28.81 mL/m2 F: 29 - 61 SV Index 21.97 mL/m2 LV Vol Biplane MOD 65.7 mL FS 33.35 % M-Mode TAPSE 1.80 cm (M/F) >1.7 LV Diastology MV E' medial 0.104 (>0.07 m/s) E/A Ratio 0.9 LV E/e MED 6.15 (<14) MV E Vmax 0.64 (0.4-1.3 m/s) MV E' lateral 0.123 (>0.1 m/s) MV A Vmax 0.70 (0.4-1.3 m/s) LV E/e LAT 5.20 (<14) MV E/A Ratio 0.87 MV E/E' medial 6.20 MV E/E' lateral 5.22 Aortic Valve LVOT Area 2.86 cm2 AoV Area Vmax 2.61 cm2 LVOT Vmax 0.99 m/s AoV Area/ BSA (Vmax) 1.47 cm2/m2 LVOT Mean Filemon. 0.66 m/s AKILAH Mean Filemon. 2.62 cm2 LVOT Peak Grad 3.9 mmHg AKILAH Mean [place]mon. Index 1.47 cm2/m2 LVOT Mean Grad 2.0 mmHg AR DT 1450 msec LVOT VTI 0.196 m AR PHT 421 msec LVOT Diam s 1.90 cm AoV Vmax 1.08 m/s Velocity Ratio 0.91 AoV Mean Filemon. 0.73 m/s AoV Peak Grad 4.7 mmHg LVOT SV 56.12 mL AoV Mean Grad 2.4 mmHg AoV VTI 0.225 m AoV Area VTI 2.49 cm2 AoV Area/ BSA (VTI) 1.40 cm/m2 Mitral Valve MV DT 147 (160-240 msec) MR Vmax 4.96 m/s MV PHT 43 msec MR VTI 1.423 m MV Area PHT 5.16 cm2 MR Peak Grad 98.5 mmHg MV VTI 0.226 m MR Mean Grad 71.1 mmHg MV VTI Annulus 0.237 m MV Area VTI 2.60 (4.0-6.0 cm2) Pulmonary Valve PV Vmax 0.88 (0.5-1.5 m/s) RVOT Peak Gr. 2.12 mmHg PV Peak Grad 3.1 mmHg RVOT Mean Gr. 1.10 mmHg PV Mean Grad 1.8 mmHg RVOT VTI 0.152 m PV VTI 0.182 m RVOT Vmax 0.73 m/s
--- NOTE | 2020-05-06 06:15 | DI.US_ITS ---
EXAM: US AAA SCREENING CLINICAL HISTORY: SCREENING FOR AAA, SOB,DYSPNEA,SMOKER,FAM H/O AORTIC ANEURYSM COMPARISON: CT CT ABDOMEN PELVIS W from 01/14/[address] ABDOMEN PELVIS W from 01/14/2020 FINDINGS: Abdominal Aorta: Proximal: 2.0 cm Mid: 2.2 cm Distal: 2.2 cm Iliacs: Right: 1.2 cm Left: 0.9 cm The doppler velocities are within normal limits. Calcification along the wall of the distal abdominal aorta. IMPRESSION: No evidence of abdominal aortic aneurysm. DATA REPOSITORY:
== END 2020-05-06 02:36 ==
PROVIDERS: PCP Student in an Organized Health Care Education/Training Program; Visit Provider Student in an Organized Health Care Education/Training Program
DX: F17.200 Nicotine dependence, unspecified, uncomplicated (principal); R06.00 Dyspnea, unspecified; Z82.49 Family history of ischemic heart disease and other diseases of the circulatory system; I35.1 Nonrheumatic aortic (valve) insufficiency; R06.89 Other abnormalities of breathing
CPT/HCPCS: 76706; 93306

== ENCOUNTER 2020-05-15 03:55 | Outpatient (CLI) | payer MEDICARE, SELFPAY ==
[2020-05-15 07:50] LABS: Absolute Basophil Count 0.05 10^3/uL (0.0-0.2); Absolute Eosinophil Count 0.15 10^3/uL (0.0-0.7); Absolute Lymphocyte Count 1.87 10^3/uL (1.2-3.4); Absolute Monocyte Count 0.31 10^3/uL (0.1-0.8); Basophils % 1.3; Eosinophils % 3.8; HCT 45.4 % (36.0-46.0); HGB 15.1 g/dL (11.2-15.7); Lymphocytes % 46.8; MCH 32.5 pg (27.0-33.0); MCHC 33.3 % (32.0-36.0); MCV 97.6 fL (80-95); MPV 9.8 fL (8.0-11.0); Monocytes % 7.8; Neutrophils % 40.3; Nucleated RBC 0 %; Platelet Count 201 10^3/uL (130-400); RBC 4.65 10^6/uL (3.93-5.22); RDW 12.7 % (11.7-14.6); RDW-SD 45.4 fL
[2020-05-15 07:51] LABS: Absolute Neutrophil Count 1.61 10^3/uL (1.2-6.7)
[2020-05-15 08:48] LABS: Iron 69 ug/dL (50-170); Total Iron Binding Capacity 325 ug/dL (250-450)
[2020-05-15 09:02] LABS: Calculated LDL 167 mg/dL (<100); Cholesterol 238 mg/dL (<200); Ferritin 49 ng/mL (8-252); HDL Cholesterol 52 mg/dL (40-60); TSH (W/Ref FT4) 8.76 uIU/mL (0.36-3.74); Triglyceride 98 mg/dL (<150)
[2020-05-15 09:28] LABS: FREE T4 1.46 ng/dL (0.76-1.46)
== END 2020-05-15 03:56 | disposition home or self-care (01) ==
LOC: LBO 03:55
PROVIDERS: PCP Student in an Organized Health Care Education/Training Program; Visit Provider Student in an Organized Health Care Education/Training Program
DX: K29.00 Acute gastritis without bleeding (principal); F32.9 Major depressive disorder, single episode, unspecified; E78.89 Other lipoprotein metabolism disorders; E63.9 Nutritional deficiency, unspecified; F17.200 Nicotine dependence, unspecified, uncomplicated; Z82.49 Family history of ischemic heart disease and other diseases of the circulatory system
CPT/HCPCS: 36415; 80061; 82728; 83540; 83550; 84439; 84443; 85025

== ENCOUNTER 2020-05-28 01:24 | Outpatient (CLI) | payer MEDICARE, SELFPAY ==
--- NOTE | 2020-05-28 07:15 | DI.US_ITS ---
EXAM: US HERNIA CLINICAL HISTORY: Evaluate for probable umbilical hernia,k42.9. TECHNIQUE: Ultrasound was performed using standard protocol. COMPARISON: US US ECHOCARDIOGRAM from 05/06/2020 FINDINGS: Ultrasound examination of the area of concern on the anterior abdominal wall umbilical region was per formed. Images do not reveal evidence of an obvious anterior abdominal hernia both without and with Valsalva maneuver. There is no abnormal fluid collection in this region. IMPRESSION: No ultrasound evidence of anterior abdominal wall hernia at this level. If clinically indicated foll ow-up CT scan can be performed. DATA REPOSITORY:
--- NOTE | 2020-05-28 07:15 | DI.US_ITS ---
EXAM: US LOWER EXTREMITY VENOUS RT CLINICAL HISTORY: RT leg swelling after exercise,m79.89 TECHNIQUE: Grayscale, color, and doppler imaging of the deep venous system of the right lower extrem ity was performed. COMPARISON: US US HERNIA from 05/28/2020 FINDINGS: There is no evidence of intraluminal thrombus and there is normal compression and augmentation demons trated within the common femoral veis, femoral veis, and popliteal vein. In the ipsilateral calf the interrogated veins also exhibit normal compression/ augmentation properti es. The greater saphenous veins also appear patent as does the saphenofemoral junction. IMPRESSION: 1. No evidence of DVT in the right lower extremity. 2. No abnormal fluid collection evident on these images. DATA REPOSITORY:
== END 2020-05-28 01:25 ==
LOC: DI 01:24
PROVIDERS: PCP Student in an Organized Health Care Education/Training Program; Visit Provider Student in an Organized Health Care Education/Training Program
DX: K42.9 Umbilical hernia without obstruction or gangrene (principal); M79.604 Pain in right leg; M79.89 Other specified soft tissue disorders
CPT/HCPCS: 76857; 93971

== ENCOUNTER 2020-07-17 10:09 | Outpatient (CLI) | payer MEDICARE, SELFPAY ==
[2020-07-18 12:53] LABS: COVID-19 RT-PCR UVMMC Result Negative (Negative)
== END 2020-07-17 10:10 | disposition home or self-care (01) ==
PROVIDERS: PCP Student in an Organized Health Care Education/Training Program; Visit Provider Student in an Organized Health Care Education/Training Program
DX: Z20.822 Contact with and (suspected) exposure to COVID-19 (principal); R06.02 Shortness of breath
CPT/HCPCS: U0003; U0005

== ENCOUNTER 2020-11-11 11:32 | Outpatient (CLI) | payer MEDICARE, SELFPAY ==
--- NOTE | 2020-11-11 11:30 | RT.EKG_ITS ---
APPROVED REPORT Exam: Resting ECG Reason for Exam: medication monitoring for [employer] Patient Location: O HR:61 bpm ECG Measurements Heart Rate 61 AXIS NC 209 P 87 QRSd 89 QRS 91 QT 453 T 74 QTc 456 Conclusion Sinus rhythm...normal P axis, V-rate 60- 99 Borderline prolonged NC interval...NC >202, V-rate 50- 90 Low voltage, extremity leads...all extremity leads <0.5mV Nonspecific T abnormalities, lateral leads...T <-0.10mV, I aVL V5 V6
== END 2020-11-11 11:33 | disposition home or self-care (01) ==
LOC: DI.KIM 11:33
PROVIDERS: PCP Student in an Organized Health Care Education/Training Program; Visit Provider Student in an Organized Health Care Education/Training Program
DX: Z51.81 Encounter for therapeutic drug level monitoring (principal); Z79.899 Other long term (current) drug therapy
CPT/HCPCS: 93010

== ENCOUNTER 2020-11-27 13:39 | Outpatient (CLI) | payer MEDICARE, SELFPAY ==
[2020-11-27 12:30] LABS: Absolute Basophil Count 0.04 10^3/uL (0.0-0.2); Absolute Eosinophil Count 0.11 10^3/uL (0.0-0.7); Absolute Lymphocyte Count 1.38 10^3/uL (1.2-3.4); Absolute Monocyte Count 0.37 10^3/uL (0.1-0.8); Absolute Neutrophil Count 2.81 10^3/uL (1.2-6.7); Basophils % 0.8; Eosinophils % 2.3; HGB 13.3 g/dL (11.2-15.7); Lymphocytes % 29.3; MCH 30.8 pg (27.0-33.0); MCHC 32.4 % (32.0-36.0); MCV 94.9 fL (80-95); MPV 9.6 fL (8.0-11.0); Monocytes % 7.9; Neutrophils % 59.7; Nucleated RBC 0 %; Platelet Count 194 10^3/uL (130-400); RBC 4.32 10^6/uL (3.93-5.22); RDW 12.9 % (11.7-14.6); RDW-SD 45.2 fL; WBC 4.71 10^3/uL (4.4-10.8)
[2020-11-27 13:50] LABS: ALT 9 U/L (14-59); AST 10 U/L (15-37); Albumin 3.4 g/dL (3.4-5.0); Alkaline Phosphatase 154 U/L (46-116); Anion Gap 10.6 mmol/L (3-11); BUN 4 mg/dL (7-18); Bilirubin, Total 0.2 mg/dL (0.2-1.0); CO2 31.4 mmol/L (21.0-32.0); CREATININE 0.8 mg/dL (0.55-1.02); Calcium 8.7 mg/dL (8.5-10.1); Chloride 106 mmol/L (98-107); Glucose 88 mg/dL (74-106); Potassium 3.2 mmol/L (3.5-5.1); Sodium 148 mmol/L (136-145); Total Protein 6.1 g/dL (6.4-8.2)
== END 2020-11-27 13:40 | disposition home or self-care (01) ==
LOC: LBO 13:49
PROVIDERS: PCP Student in an Organized Health Care Education/Training Program; Visit Provider Student in an Organized Health Care Education/Training Program
DX: R10.11 Right upper quadrant pain (principal); R10.811 Right upper quadrant abdominal tenderness; R11.0 Nausea
CPT/HCPCS: 36415; 76770; 80053; 76700; 85025

== ENCOUNTER 2020-11-27 15:29 | Outpatient (CLI) | payer MEDICARE, SELFPAY ==
--- NOTE | 2020-11-27 11:00 | DI.US_ITS ---
Exam(s) US ABDOMEN RENAL EXAM: US ABDOMEN RENAL CLINICAL HISTORY: RUQ PAIN/TENDERNESS, RT FLANK PAIN, r/o GB Path, RT Hydronephrosis TECHNIQUE: Ultrasound of complete upper abdomen performed using standard protocol. COMPARISON: CT CT ABDOMEN PELVIS W from 01/14/2020 FINDINGS: There is no ascites evident. LIVER: There are no hepatic lesions evident nor obvious dilatation of intrahepatic ducts. GALLBLADDER/BILIARY: There are no gallstones. No gallbladder wall edema nor pericholecystic fluid. The common hepatic duct isnot dilated, measuring 3mm at the level of van hepatis. PANCREAS: There is no evidence of pancreatic mass nor dilatation of the pancreatic duct. SPLEEN: The spleen is not enlarged and there are no intrasplenic lesions evident. KIDNEYS:Kidneys exhibit normal size with no evidence of solid mass, calculus, nor hydronephrosis. No cortical cysts evident. ABDOMINAL AORTA: There is no evidence of abdominal aortic aneurysm. IVC: Normal diameter where visualized. IMPRESSION: 1. No evidence of cholelithiasis nor dilatation of the biliary tree. 2. No other significant ultrasound findings in the upper abdomen. 3. There is no ascites. DATA REPOSITORY:
== END 2020-11-27 15:49 ==
PROVIDERS: PCP Student in an Organized Health Care Education/Training Program; Visit Provider Student in an Organized Health Care Education/Training Program
DX: R10.11 Right upper quadrant pain (principal); R10.811 Right upper quadrant abdominal tenderness
CPT/HCPCS: 76770; 76700

== ENCOUNTER 2020-12-04 01:52 | Outpatient (CLI) | payer MEDICARE, SELFPAY ==
[2020-12-04] MEDS: Omnipaque 350 MG/ML 50 ML BTL 25 ML PO (09:58)
[2020-12-04] MEDS: Breeza Beverage 473 ML BTL PO (09:59)
--- NOTE | 2020-12-04 10:30 | DI.CT_ITS ---
Exam(s) CT ABDOMEN W EXAM: CT ABDOMEN W CLINICAL HISTORY: RUQ tenderness, pain; NEG US, BLOATING, R10.811 TECHNIQUE: COMPARISON: CT CT ABDOMEN PELVIS W from 01/14/2020 FINDINGS: Please note this study was limited to the abdomen, as per request. The pelvis was not scanned. Prior CT scan January [address] was [address] infused CT scan the abdomen was performed. Oral contrast was also administered for bowel op acification. The visualized lung bases are clear. No pleural effusions. Small pericardial effusion noted. There is no ascites in the upper abdomen. There are no focal hepatic lesions nor dilatation of intrahepatic ducts. No obvious gallbladder pat hology. CBD is not dilated. No evidence of mass in the pancreas. No dilatation of the pancreatic d uct. Spleen size is normal. No intrasplenic lesions. The splenic and portal veins are patent. The re are no adrenal masses. No significant focal findings in the kidneys. No hydronephrosis. The abd ominal aorta is not enlarged. There is no vakkjznkmtbvicu-ncfj-wyqgtm adenopathy. The appearance of the colon is again noted be diffusely abnormal, similar to the prior studies. The oral contrast has only minimally reached the colon by the time of image acquisition on this study. H owever, there appears to be a diffuse colitis pattern, similar to the prior studies. Please note chris t significant part of the colon is not included in this abdomen only study. There are no obvious div erticuli in the visualized colon. There appears to be an anterior abdominal wall midline hernia repair. No abnormal fluid collection. No active hernia at this time. Also no hiatal hernia. Osseous: No significant osseous lesions. IMPRESSION: 1. On this abdomen only study the visualized aspects of the colon again reveal what appears to be a d iffuse colitis pattern, as previously documented on prior CT scan. Please note that the cecum, appen antonio, sigmoid, and rectum are not included in the field of view of this abdomen study. 2. No obvious gallbladder pathology evident on the CT scan. Given the history here if clinically ind icated gallbladder ultrasound could be performed which is more sensitive than CT scan for detecting g allstones.
[2020-12-04] MEDS: Omnipaque 350 MG/ML 100 ML BTL IJ (10:36)
== END 2020-12-04 02:12 ==
PROVIDERS: PCP Student in an Organized Health Care Education/Training Program; Visit Provider Student in an Organized Health Care Education/Training Program
DX: R10.811 Right upper quadrant abdominal tenderness (principal); R14.0 Abdominal distension (gaseous); K52.9 Noninfective gastroenteritis and colitis, unspecified
CPT/HCPCS: 74160; J3490; Q9967

== ENCOUNTER 2020-12-05 10:36 | Outpatient (CLI) | payer MEDICARE, SELFPAY ==
--- NOTE | 2020-12-05 10:30 | DI.CT_ITS ---
Exam(s) CT ABDOMEN PELVIS W EXAM: CT ABDOMEN PELVIS W INDICATION: colon problem, COLITIS, RUQ ABD TENDERNESS, K52.9, R10.811. COMPARISON: CT CT ABDOMEN W from 12/04/2020 TECHNIQUE: FINDINGS: CT examination of the abdomen and pelvis was performed with a bolus infusion of 100 cc of Omnipaque 3 50. Images obtained through the lung bases are unremarkable. The liver is unremarkable in appearance. Gallbladder and bile ducts are CT normal. Pancreas appears normal. Spleen is unremarkable in appearance. Adrenals appear normal. The kidneys are unremarkable with no evidence of hydronephrosis, nephrolithiasis, or renal mass.. Ur inary bladder is not well filled but appears to have a thickened wall, please correlate clinically re garding the possibility of cystitis. Abdominal aorta is of normal diameter and no major vascular abnormality is seen. There is a tiny fat containing umbilical hernia.. No abdominal or pelvic adenopathy. Uterus is atrophic or surgically absent. Appendix is not specifically visualized. No evidence of diverticulitis, bowel obstruction, or inflam matory bowel disease. IMPRESSION: Question wall thickening of the urinary bladder, consider cystitis. No other significant acute findi ngs. RADIATION DOSE DELIVERED: 785.67mGy.cm Total DLP 785.67mGy.cm Total DLP 17.63mGy CTDIvol RADIATION OPTIMIZATION: All CT scans at this facility use at least one of these dose optimization te chniques: automated exposure control; mA and/or kV adjustment per patient size (includes targeted exa ms where dose is matched to clinical indication); or iterative reconstruction.
[2020-12-05] MEDS: Breeza Beverage 473 ML BTL PO ×2 (11:50→11:51)
[2020-12-05] MEDS: Omnipaque 350 MG/ML 50 ML BTL PO (11:50)
[2020-12-05 13:39] LABS: Anion Gap 8.2 mmol/L (3-11); BUN 5 mg/dL (7-18); C-Reactive Protein 0.19 mg/dL (0.0-0.3); CO2 30.8 mmol/L (21.0-32.0); CREATININE 0.8 mg/dL (0.55-1.02); Calcium 8.3 mg/dL (8.5-10.1); Chloride 107 mmol/L (98-107); Glucose 82 mg/dL (74-106); Sodium 146 mmol/L (136-145)
[2020-12-05] MEDS: Omnipaque 350 MG/ML 100 ML BTL IJ (14:47)
[2020-12-07 16:26] LABS: Magnesium 1.8 mg/dL (1.7-2.8)
[2020-12-08 16:03] LABS: ANCA Interpretation Negative (Negative)
== END 2020-12-05 10:56 ==
PROVIDERS: PCP Student in an Organized Health Care Education/Training Program; Visit Provider Surgery
DX: K52.9 Noninfective gastroenteritis and colitis, unspecified (principal); R10.811 Right upper quadrant abdominal tenderness; E87.6 Hypokalemia; R93.5 Abnormal findings on diagnostic imaging of other abdominal regions, including retroperitoneum; N28.9 Disorder of kidney and ureter, unspecified
CPT/HCPCS: 80048; 86255; 74177; 83735; 86140; J3490; Q9967

== ENCOUNTER 2020-12-17 04:15 | Outpatient (CLI) | payer MEDICARE, SELFPAY ==
[2020-12-17 10:55] LABS: BUN 6 mg/dL (7-18); CREATININE 0.9 mg/dL (0.55-1.02); Calcium 8.8 mg/dL (8.5-10.1); Chloride 108 mmol/L (98-107); Glucose 79 mg/dL (74-106); Lipase 75 U/L (73-393); Potassium 3.4 mmol/L (3.5-5.1); Sodium 146 mmol/L (136-145)
== END 2020-12-17 04:16 | disposition home or self-care (01) ==
LOC: LBO 04:15
PROVIDERS: PCP Student in an Organized Health Care Education/Training Program; Visit Provider Student in an Organized Health Care Education/Training Program
DX: R10.811 Right upper quadrant abdominal tenderness (principal); E87.6 Hypokalemia; R10.9 Unspecified abdominal pain
CPT/HCPCS: 36415; 80048; 83690

== ENCOUNTER 2021-02-12 02:05 | Outpatient (CLI) | payer MEDICARE, SELFPAY ==
--- NOTE | 2021-02-12 07:30 | DI.RAD_ITS ---
Exam(s) XR SHOULDER RT COMPLETE 2+V EXAM: XR SHOULDER RT COMPLETE 2+V CLINICAL HISTORY: r/o bony path, evaluate spacing,OUT OF PROPORTION PAIN,FELL,W19.XXXA,S49.90. TECHNIQUE: 2D digital imaging was performed. COMPARISON: No exams were available for comparison FINDINGS: No evidence of fracture or dislocation. No abnormal soft tissue calcifications. No degenerative galina nges in the glenohumeral and AC joints. Bone density is normal. No osseous lesions. IMPRESSION: No significant radiograph findings in the right shoulder. DATA REPOSITORY: RADIATION DOSE DELIVERED:
== END 2021-02-12 02:25 ==
PROVIDERS: PCP Student in an Organized Health Care Education/Training Program; Visit Provider Student in an Organized Health Care Education/Training Program
DX: M25.511 Pain in right shoulder (principal); W19.XXXA Unspecified fall, initial encounter
CPT/HCPCS: 73030

== ENCOUNTER 2021-04-06 11:26 | Outpatient (CLI) | payer MEDICARE, SELFPAY ==
--- NOTE | 2021-04-06 08:48 | DI.MAMMO_ITS ---
Exam(s) MAMMO SCREENING EXAM: MAMMO SCREENING CLINICAL HISTORY: H/O asymmetric density 2019, screening. TECHNIQUE: Bilateral full field digital CC and MLO mammographic images were obtained with 3D tomosyn thesis and utilizing computer aided detection (CAD). COMPARISON: Prior mammograms dating back to 2011, the most recent being July 2018. FINDINGS: There are no new spiculated masses nor malignant appearing microcalcification groups. There is no significant architectural distortion nor skin thickening-retraction. IMPRESSION: No radiographic evidence of malignancy. BI-RADS Category 1 - Negative Breast Density - Category B - Scattered areas of fibroglandular density Breast density Category C or D implies that the patient has dense breast tissue. Dense breast tissue can make it harder to find cancer on a mammogram. Dense breast tissue is also associated with an incr eased risk of breast cancer. This information about the result of the mammogram report was provided to the patient to raise their awareness. Use this report when you speak with the patient about their risks for breast cancer, which includes their family history. At that time, you may recommend additional screening tests (Ultrasoun d or MRI) as these tests may add significant information. A negative radiographic report should not delay biopsy if a dominant or clinically suspicious mass is present. Up to ten percent of cancers are not identified on mammography. A negative report may reinforce clinical impression. Adenosis and dense breasts may obscure an underlying neoplasm. False positive reports average 6 to 10%. Patient will receive a letter notifying them of these results.
== END 2021-04-06 11:46 ==
PROVIDERS: PCP Student in an Organized Health Care Education/Training Program; Visit Provider Student in an Organized Health Care Education/Training Program
DX: Z12.31 Encounter for screening mammogram for malignant neoplasm of breast (principal)
CPT/HCPCS: 77063; 77067

== ENCOUNTER 2021-04-30 09:03 | Outpatient (REF) | payer MEDICARE, SELFPAY ==
[2021-05-01 17:09] LABS: COVID-19 RT-PCR UVMMC Result Negative (Negative)
== END 2021-04-30 09:04 | disposition home or self-care (01) ==
LOC: LBN 09:03
PROVIDERS: PCP Student in an Organized Health Care Education/Training Program; Visit Provider Student in an Organized Health Care Education/Training Program
DX: J02.9 Acute pharyngitis, unspecified (principal); Z20.822 Contact with and (suspected) exposure to COVID-19
CPT/HCPCS: U0003; U0005

== ENCOUNTER 2021-05-03 20:42 | Emergency (ER) | payer MEDICARE, SELFPAY ==
--- NOTE | 2021-05-03 20:45 | DI.RAD_ITS ---
Exam(s) XR LUMBAR SPINE COMPLETE EXAM: XR LUMBAR SPINE COMPLETE CLINICAL HISTORY: Fall, R/O Fracture. TECHNIQUE: 2D digital imaging was performed. COMPARISON: CR LUMBAR SPINE COMPLETE from 06/28/2009 FINDINGS: There is no evidence of acute fracture nor listhesis. No pars defects there is advanced disc space n arrowing at L5-S1 level. Milder narrowing of L4-5 and L3-4 disc spaces. No osseous lesions. Mild facet arthropathy. No scoliosis. SI joints appear unremarkable. IMPRESSION: Disc space narrowing, most prominent at L5-S1 level. This has significantly progressed when compared to the 2010 study. DATA REPOSITORY: RADIATION DOSE DELIVERED:
--- NOTE | 2021-05-03 20:45 | DI.RAD_ITS ---
Exam(s) XR SACRUM COCCYX EXAM: XR SACRUM COCCYX CLINICAL HISTORY: Fall, R/O Fracture. TECHNIQUE: 2D digital imaging was performed. COMPARISON: No exams were available for comparison FINDINGS: No evidence of sacrum nor coccyx fracture. Disc space narrowing at L5-S1. No osseous lesions. No radiopaque foreign body IMPRESSION: No fracture evident DATA REPOSITORY: RADIATION DOSE DELIVERED:
[2021-05-03 20:46] VITALS: BP 129/98; PULSE 95; RESP 16; O2SAT 90
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
[2021-05-03] MEDS: Cyclobenzaprine 10 MG TAB PO (21:02)
[2021-05-03] MEDS: Ibuprofen 600 MG TAB PO (21:02)
[2021-05-03] MEDS: Lidocaine 5% Patch 1 PATCH TP (21:29)
--- NOTE | 2021-05-03 21:54 | DI.VRAD_ITS ---
PROCEDURE INFORMATION: Exam: XR Lumbosacral Spine Exam date and time: 05/03/2021 8:54 PM Age: 50 years old Clinical indication: Injury or trauma; Blunt trauma (contusions or hematomas); Injury date: 05/03/21; Injury details: Fall on ice TECHNIQUE: Imaging protocol: XR of the lumbosacral spine. Views: 4 or 5 views. COMPARISON: CT ABDOMEN PELVIS W 12/05/2020 2:42 PM FINDINGS: Bones/joints: There are 5 non rib-bearing lumbar type vertebra. Vertebral body heights are preserved without acute appearing compression deformity. There is limbus vertebra of the anterior, superior endplate of L4 similar to comparison CT. No spondylolisthesis. Mild multilevel marginal osteophyte formation as well as intervertebral disc height loss, however moderate disc height loss at the lumbosacral junction with degenerative facet changes. Soft tissues: No focal abnormality, IMPRESSION: 1. No acute findings. 2. Mild lumbar spondylosis. Dictated and Authenticated by: Lacho Cevallos MD. Ordering:YAMILETH Neal MD
--- NOTE | 2021-05-03 21:57 | DI.VRAD_ITS ---
PROCEDURE INFORMATION: Exam: XR Sacrum and Coccyx, 2 or More Views Exam date and time: 05/03/2021 8:54 PM Age: 50 years old Clinical indication: Injury or trauma; Blunt trauma (contusions or hematomas); Injury date: 05/03/21; Injury details: Fall on ice, pain TECHNIQUE: Imaging protocol: XR of the sacrum and coccyx, 2 or more views. COMPARISON: CR XR LUMBAR SPINE COMPLETE 05/03/2021 9:12 PM FINDINGS: Bones/joints: Decreased mineralization of the distal sacrum and coccyx limits evaluation for nondisplaced fracture. No discrete or displaced fracture. No dislocation or abnormal subluxation of the coccyx. Soft tissues: No focal abnormality. IMPRESSION: No acute findings. Dictated and Authenticated by: Lacho Cevallos MD. Ordering:YAMILETH Neal MD
== END 2021-05-03 22:19 | disposition home or self-care (01) ==
PROVIDERS: Emergency Provider Registered Nurse Emergency; PCP Student in an Organized Health Care Education/Training Program
DX: S30.0XXA Contusion of lower back and pelvis, initial encounter (principal); W00.2XXA Other fall from one level to another due to ice and snow, initial encounter
CPT/HCPCS: 99284; 72110; 72220; 99283

== ENCOUNTER 2021-05-07 02:22 | Outpatient (CLI) | payer MEDICARE, SELFPAY ==
--- NOTE | 2021-05-07 07:45 | DI.RAD_ITS ---
Exam(s) XR HAND RT COMPLETE EXAM: XR HAND RT COMPLETE CLINICAL HISTORY: r/o fracture, bony pathology,TENOSYNOVITIS,WRIST PAIN,GEETHA+,[id number]. TECHNIQUE: 2D digital imaging was performed of the right hand. Three images were obtained. AP, late ral and oblique views were obtained. COMPARISON: CR RIGHT INDEX FINGER from 08/06/2010 FINDINGS: BONES: No acute fracture is present. No bony destructive lesion is seen. JOINTS: No dislocation present. There are mild degenerative changes seen in the hand with joint space narrowing and periarticular spurring particularly involving the interphalangeal joints of the 2nd, 3 rd and 4th fingers. SOFT TISSUE: Normal. No soft tissue calcifications are seen. IMPRESSION: Mild degenerative changes of the hand. DATA REPOSITORY: RADIATION DOSE DELIVERED:
== END 2021-05-07 02:42 ==
PROVIDERS: PCP Student in an Organized Health Care Education/Training Program; Visit Provider Student in an Organized Health Care Education/Training Program
DX: M25.531 Pain in right wrist (principal); M65.841 Other synovitis and tenosynovitis, right hand; M19.041 Primary osteoarthritis, right hand
CPT/HCPCS: 73130

== ENCOUNTER 2021-08-13 05:37 | Emergency (ER) | payer MEDICARE, SELFPAY ==
[2021-08-13] VITALS (10 sets, daily range): BP systolic 109–141; BP diastolic 62–91; PULSE 72–99; RESP 15–24; TEMP 36.6–37.2; O2SAT 88–98
[2021-08-13 06:30] LABS: BE (Venous) 9 mmol/L (-2-3); HCO3 (Venous) 33 mmol/L (23-28); O2 Sat (Venous) 92 %; TCO2 (Venous) 29 mmol/L (24-29); pCO2 (Venous) 48 mmHg (41-51); pH (Venous) 7.44 (7.31-7.41); pO2 (Venous) 62 mmHg
[2021-08-13 06:33] LABS: Abs Immature Grans 0.04 10^3/uL (0.0-0.06); Absolute Basophil Count 0.04 10^3/uL (0.0-0.2); Absolute Lymphocyte Count 0.77 10^3/uL (1.2-3.4); Absolute Monocyte Count 0.94 10^3/uL (0.1-0.8); Basophils % 0.4; HCT 44.2 % (36.0-46.0); HGB 15.1 g/dL (11.2-15.7); Immature Grans % 0.4; Lymphocytes % 6.9; MCH 31.9 pg (27.0-33.0); MCHC 34.2 % (32.0-36.0); MCV 93 fL (80-95); MPV 9.9 fL (8.0-11.0); Monocytes % 8.4; Neutrophils % 83.9; Platelet Count 153 10^3/uL (130-400); RBC 4.74 10^6/uL (3.93-5.22); RDW 12.8 % (11.7-14.6); RDW-SD 44.2 fL; WBC 11.19 10^3/uL (4.4-10.8)
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
[2021-08-13 06:35] LABS: Absolute Neutrophil Count 9.39 10^3/uL (1.2-6.7)
--- NOTE | 2021-08-13 06:45 | DI.RAD_ITS ---
Exam(s) XR PORTABLE CHEST AP EXAM: XR PORTABLE CHEST AP CLINICAL HISTORY: cough. TECHNIQUE: 2D digital imaging was performed. COMPARISON: CR,XR XR CHEST 2V PA LATERAL from 01/10/2019 FINDINGS: LUNGS: Clear. No pleural abnormality seen. HEART: Normal. MEDIASTINUM: Normal. OTHER FINDINGS: None. IMPRESSION: No acute pulmonary findings. DATA REPOSITORY: RADIATION DOSE DELIVERED: Total DLP
[2021-08-13 06:47] LABS: ALT 20 U/L (14-59); AST 39 U/L (15-37); Albumin 3.1 g/dL (3.4-5.0); Alkaline Phosphatase 123 U/L (46-116); Anion Gap 6.2 mmol/L (3-11); BUN 14 mg/dL (7-18); Bilirubin, Total 0.7 mg/dL (0.2-1.0); CO2 32.8 mmol/L (21.0-32.0); CREATININE 1.1 mg/dL (0.55-1.02); Calcium 8.3 mg/dL (8.5-10.1); Chloride 94 mmol/L (98-107); Estimated GFR 52.58 (mL/min/1.73m2); Glucose 123 mg/dL (74-106); Lipase 93 U/L (73-393); Magnesium 2.5 mg/dL (1.8-2.4); Sodium 133 mmol/L (136-145); Total Protein 6.9 g/dL (6.4-8.2)
[2021-08-13 07:00] LABS: Potassium 2.5 mmol/L (3.5-5.1)
[2021-08-13 07:16] LABS: COVID-19 PCR Negative (Negative); Influenza A PCR Positive (Negative); Influenza B PCR Negative (Negative); RSV PCR Negative (Negative)
[2021-08-13 07:17] LABS: Source Nasopharynx
[2021-08-13] MEDS: Oseltamivir 75 MG CAP PO (07:42)
[2021-08-13] MEDS: Potassium Chloride 20 MEQ TABCR PO (07:42)
[2021-08-13] MEDS: POTASSIUM CHLORIDE 20 MEQ/100 ML BAG 50 MEQ IVPB (07:43)
[2021-08-13] MEDS: Lactated Ringers 500 ML 1000 ML IV (07:43)
[2021-08-13] MEDS: Metoclopramide 10 MG/2 ML VIAL IVP (08:49)
[2021-08-13] MEDS: Potassium Chloride 10 MEQ CAPCR 20 MEQ PO (09:36)
== END 2021-08-13 10:00 | disposition home or self-care (01) ==
PROVIDERS: Student in an Organized Health Care Education/Training Program; Emergency Provider Physician Assistant; PCP Student in an Organized Health Care Education/Training Program
DX: J10.2 Influenza due to other identified influenza virus with gastrointestinal manifestations (principal); E86.0 Dehydration; E87.6 Hypokalemia; J10.1 Influenza due to other identified influenza virus with other respiratory manifestations; R05.1 Acute cough
CPT/HCPCS: 36415; 80053; 82805; 83690; 87637; 96361; 96365; 96366; 96375; 99284; 71045; 83735; 85025; J2765; J3480

== ENCOUNTER 2021-08-21 13:41 | Inpatient (IN) | payer MEDICARE, SELFPAY ==
[2021-08-21] VITALS (83 sets, daily range): BP systolic 98–148; BP diastolic 58–122; PULSE 88–131; RESP 4–47; TEMP 36.2–37.1; O2SAT 81–98
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
[2021-08-21] MEDS: methylPREDNISolone SUCC 125 MG VIAL IVP (14:23)
[2021-08-21 14:38] LABS: Source Nasal/Nares
[2021-08-21 14:39] LABS: HCO3 (Venous) 57 mmol/L (23-28); O2 Sat (Venous) 69 %; TCO2 (Venous) 51 mmol/L (24-29); pH (Venous) 7.45 (7.31-7.41); pO2 (Venous) 38 mmHg
[2021-08-21 14:40] LABS: Abs Immature Grans 0.03 10^3/uL (0.0-0.06); Absolute Basophil Count 0.02 10^3/uL (0.0-0.2); Absolute Lymphocyte Count 0.76 10^3/uL (1.2-3.4); Absolute Monocyte Count 0.56 10^3/uL (0.1-0.8); Absolute Neutrophil Count 6.26 10^3/uL (1.2-6.7); Basophils % 0.3; Eosinophils % 1.3; HCT 43.3 % (36.0-46.0); HGB 13.3 g/dL (11.2-15.7); Immature Grans % 0.4; Lymphocytes % 9.8; MCH 31.7 pg (27.0-33.0); MCHC 30.7 % (32.0-36.0); MCV 103 fL (80-95); MPV 8.7 fL (8.0-11.0); Monocytes % 7.2; Platelet Count 357 10^3/uL (130-400); RBC 4.19 10^6/uL (3.93-5.22); RDW 13.3 % (11.7-14.6); RDW-SD 50.8 fL; WBC 7.73 10^3/uL (4.4-10.8)
[2021-08-21 14:47] LABS: BE (Venous) > 15 mmol/L (-2-3)
[2021-08-21 14:48] LABS: pCO2 (Venous) 82 mmHg (41-51)
[2021-08-21 14:57] LABS: ALT 15 U/L (14-59); AST 16 U/L (15-37); Albumin 2.3 g/dL (3.4-5.0); Alkaline Phosphatase 106 U/L (46-116); BUN 9 mg/dL (7-18); Bilirubin, Total 0.8 mg/dL (0.2-1.0); CREATININE 0.7 mg/dL (0.55-1.02); Chloride 93 mmol/L (98-107); Glucose 109 mg/dL (74-106); Magnesium 1.5 mg/dL (1.8-2.4); Sodium 144 mmol/L (136-145); Total Protein 6.5 g/dL (6.4-8.2); Troponin I < 50 ng/L (<or=60)
[2021-08-21 15:02] LABS: Anion Gap 5.99999 mmol/L (3-11); CO2 > 45.0 mmol/L (21.0-32.0)
[2021-08-21 15:05] LABS: Potassium 2.3 mmol/L (3.5-5.1)
--- NOTE | 2021-08-21 15:13 | DI.RAD_ITS ---
Exam(s) XR PORTABLE CHEST AP EXAM: XR PORTABLE CHEST AP CLINICAL HISTORY: shortness of breath. TECHNIQUE: 2D digital imaging was performed. COMPARISON: CR XR PORTABLE CHEST AP from 08/13/2021 FINDINGS: Single AP portable view. Heart size is upper normal. The mediastinum is not widened. Lungs are clear. No infiltrates nor obvious pleural effusions. IMPRESSION: No acute pulmonary findings on this single AP portable view of the chest.No significant change compar ed to 08/13/2021 DATA REPOSITORY: RADIATION DOSE DELIVERED: All CT scans at this facility use at least one of these dose optimization techniques: automated exposure control; mA and/or kV adjustment per patient size (includes targeted e xams where dose is matched to clinical indication); or iterative reconstruction.
[2021-08-21] MEDS: Albuterol/Ipratropium 3 ML UPD VIAL UPD ×3 (15:16→18:22)
--- NOTE | 2021-08-21 15:17 | RESPIRATORY ---
Pt's baseline is 4L O2 via nasal cannula 24/. [facility]: [facility] [place], [place].
[2021-08-21 15:30] LABS: COVID-19 PCR Negative (Negative)
[2021-08-21] MEDS: MAGNESIUM SULFATE 1 GM/100 ML BAG IVPB (15:31)
[2021-08-21] MEDS: Potassium Chloride 20 MEQ TABCR 40 MEQ PO (15:37)
[2021-08-21 15:45] LABS: HCO3 (Venous) 55 mmol/L (23-28); O2 Sat (Venous) 98 %; TCO2 (Venous) 49 mmol/L (24-29); pH (Venous) 7.46 (7.31-7.41); pO2 (Venous) 109 mmHg
[2021-08-21 15:48] LABS: BE (Venous) > 15 mmol/L (-2-3); pCO2 (Venous) 77 mmHg (41-51)
[2021-08-21] MEDS: MAGNESIUM SULFATE 2 GM/50 ML BAG IVPB (18:22)
[2021-08-21] MEDS: Normal Saline 500 ML 50 ML IV (18:22)
[2021-08-21] MEDS: Normal Saline Flush 10 ML SYR IVP (18:23)
[2021-08-21] MEDS: POTASSIUM CHLORIDE 10 MEQ/100 ML BAG 100 MEQ IVPB ×4 (18:23→22:30)
[2021-08-21] MEDS: Enoxaparin 40 MG/0.4 ML SYR SC (18:23)
[2021-08-21] MEDS: Potassium Chloride Liquid 20 MEQ PKT PO (20:08)
[2021-08-21] MEDS: Atorvastatin 20 MG TAB PO (20:08)
[2021-08-21] MEDS: buPROPion-CR 150 MG TABCR PO (20:08)
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
[2021-08-21] MEDS: dilTIAZem 30 MG TAB 60 MG PO (21:26)
[2021-08-22] VITALS (101 sets, daily range): BP systolic 101–145; BP diastolic 58–101; PULSE 74–107; RESP 4–42; TEMP 36.8–37.2; O2SAT 86–98
[2021-08-22] MEDS: Albuterol/Ipratropium 3 ML UPD VIAL UPD ×4 (00:18→17:45)
[2021-08-22] MEDS: Levothyroxine 100 MCG TAB PO (05:31)
[2021-08-22 06:25] LABS: Abs Immature Grans 0.04 10^3/uL (0.0-0.06); Absolute Basophil Count 0.01 10^3/uL (0.0-0.2); Absolute Lymphocyte Count 0.56 10^3/uL (1.2-3.4); Absolute Monocyte Count 0.36 10^3/uL (0.1-0.8); Absolute Neutrophil Count 7.14 10^3/uL (1.2-6.7); Basophils % 0.1; HGB 12.3 g/dL (11.2-15.7); Immature Grans % 0.5; Lymphocytes % 6.9; MCH 31.5 pg (27.0-33.0); MCHC 30.8 % (32.0-36.0); MCV 103 fL (80-95); MPV 8.8 fL (8.0-11.0); Monocytes % 4.4; Neutrophils % 88.1; Platelet Count 350 10^3/uL (130-400); RDW 13.4 % (11.7-14.6); RDW-SD 50.8 fL; WBC 8.11 10^3/uL (4.4-10.8)
[2021-08-22 06:34] LABS: BUN 12 mg/dL (7-18); CREATININE 0.5 mg/dL (0.55-1.02); Calcium 8.7 mg/dL (8.5-10.1); Chloride 93 mmol/L (98-107); Glucose 115 mg/dL (74-106); Sodium 142 mmol/L (136-145)
[2021-08-22 06:42] LABS: Anion Gap 3.99999 mmol/L (3-11); CO2 > 45.0 mmol/L (21.0-32.0)
[2021-08-22] MEDS: Pantoprazole 20 MG TABCR PO (06:43)
[2021-08-22] MEDS: POTASSIUM CHLORIDE 10 MEQ/100 ML BAG 100 MEQ IVPB ×2 (07:35→09:30)
[2021-08-22] MEDS: buPROPion-CR 150 MG TABCR PO ×2 (07:37→20:35)
[2021-08-22] MEDS: Potassium Chloride Liquid 20 MEQ PKT PO (07:37)
[2021-08-22] MEDS: predniSONE 20 MG TAB 40 MG PO (07:39)
[2021-08-22] MEDS: Cetirizine 10 MG TAB PO (07:39)
[2021-08-22] MEDS: Citalopram 20 MG TAB 40 MG PO (07:40)
[2021-08-22] MEDS: Montelukast 10 MG TAB PO (07:40)
[2021-08-22] MEDS: Fluticasone NASAL SPRAY 16 GM BTL NS (07:41)
[2021-08-22] MEDS: Budesonide/Formoterol 80/4.5 6.9 GM 60 PUFF INH IH ×2 (07:53→20:35)
[2021-08-22] MEDS: Normal Saline Flush 10 ML SYR IVP (08:36)
--- NOTE | 2021-08-22 14:13 | W.PM.PROGNOT ---
Date of Service Date of service: 08/22/21 Time of Service: 13:20 Assessment and Plan Assessment and plan (1) Influenza A: Status: Acute Assessment and plan: Etiology of acute asthma/COPD exacerbation See asthma/COPD (2) Acute hypokalemia: Status: Acute Assessment and plan: Oral and IV replacement. Monitor level (3) Stopped smoking with greater than 30 pack year history: Status: Resolved Assessment and plan: Stopped w/o nicotine replacement. (4) Depression: Status: Chronic Assessment and plan: Cont buproprion and citalopram. Monitor on telemetry for QT prolongation. (5) GERD (gastroesophageal reflux disease): Assessment and plan: Pantoprazole 20mg daily (6) Acute and chronic respiratory failure with hypoxia: Status: Acute Assessment and plan: D/T her pCO2 elevation in the ED on 4L O2 per NC, attempted to decrease supplemental O2 to 2L. Her saturations dropped into the low 80's. Cont 4L per NC. Used BiPAP for 4 hours last night. (7) Acute exacerbation of COPD with asthma: Status: Acute Assessment and plan: s/p Duonebs and IV solumedrol prior to arriving in ICU. Will change back to prednisone 40mg daily in the AM. Cont scheduled Duonebs and prn albuterol. On trelegy at home, but is not on formulary. Symbicort initiated Cont singulair. Cont allergy medications. (8) DVT prophylaxis: Status: Acute Assessment and plan: SC lovenox. (9) Partial code status: Status: Acute Assessment and plan: DNR/DNI with exception of full code for trauma. Subjective Subjective Patient reports: no new complaints, feels better, tolerating a regular diet (Appt is minimal. ) and afebrile; denies diarrhea, nausea or vomiting Exam Narrative Exam Narrative: Pleasant female lying in bed. Conversant Const General: cooperative and no acute distress Nutritional Appearance: average body habitus Orientation: alert and oriented x3 Eyes General: appearance normal, both eyes and all related structures Sclera: sclerae normal Resp Effort & Inspection: normal respiratory effort Auscultation: diminished lung sounds, rhonchi and wheezes Cardio Rate: tachycardic Rhythm: regular rhythm Heart Sounds: S1 normal and S2 normal GI Palpation: soft and nontender Skin General skin exam: no rashes or lesions noted Extrem General: no pedal edema and no calf tenderness Psych Appearance: grossly normal Mental Status: mental status grossly normal Speech and Movement: speech and movement normal Affect: normal affect Objective Last Vital Signs Temp 36.8 C 08/22/21 08:10 Pulse 84 08/22/21 10:00 Resp 25 H 08/22/21 10:20 BP 145/94 H 08/22/21 10:00 Pulse Ox 92 08/22/21 10:20 Laboratory Results - last 24 hr 08/21/21 08/21/21 08/21/21 14:17 14:30 14:30 WBC 7.73 RBC 4.19 Hgb 13.3 Hct 43.3 MCV 103 H MCH 31.7 MCHC 30.7 L RDW 13.3 Plt Count 357 MPV 8.7 Immature Gran % 0.4 Neutrophils % 81.0 Lymphocytes % 9.8 Monocytes % 7.2 Eosinophils % 1.3 Basophils % 0.3 Nucleated RBC % 0.0 Absolute Neutrophils 6.26 Absolute Lymphocytes 0.76 L Absolute Monocytes 0.56 Absolute Eosinophils 0.10 Absolute Basophils 0.02 VBG pH VBG pCO2 VBG pO2 VBG HCO3 VBG Total CO2 VBG O2 Saturation VBG Base Excess Sodium 144 Potassium 2.3 L* Chloride 93 L Carbon Dioxide > 45.0 H Anion Gap 5.66083 BUN 9 Creatinine 0.7 Estimated GFR/1.73 m2 >= 60.00 Glucose 109 H Calcium 8.0 L Magnesium 1.5 L Total Bilirubin 0.8 AST 16 ALT 15 Alkaline Phosphatase 106 Troponin I < 50 Total Protein 6.5 Albumin 2.3 L COVID-19 Source Nasal/Nares SARS-CoV-2 (PCR) Negative 08/21/21 08/21/21 08/22/21 14:30 15:41 05:22 WBC RBC Hgb Hct MCV MCH MCHC RDW Plt Count MPV Immature Gran % Neutrophils % Lymphocytes % Monocytes % Eosinophils % Basophils % Nucleated RBC % Absolute Neutrophils Absolute Lymphocytes Absolute Monocytes Absolute Eosinophils Absolute Basophils VBG pH 7.45 H 7.46 H VBG pCO2 82 H* 77 H* VBG pO2 38 109 VBG HCO3 57 H 55 H VBG Total CO2 51 H 49 H VBG O2 Saturation 69 98 VBG Base Excess > 15 H > 15 H Sodium 142 Potassium 3.0 L Chloride 93 L Carbon Dioxide > 45.0 H Anion Gap 3.35798 BUN 12 Creatinine 0.5 L Estimated GFR/1.73 m2 >= 60.00 Glucose 115 H Calcium 8.7 Magnesium Total Bilirubin AST ALT Alkaline Phosphatase Troponin I Total Protein Albumin COVID-19 Source SARS-CoV-2 (PCR) 08/22/21 05:22 WBC 8.11 RBC 3.90 L Hgb 12.3 Hct 40.0 MCV 103 H MCH 31.5 MCHC 30.8 L RDW 13.4 Plt Count 350 MPV 8.8 Immature Gran % 0.5 Neutrophils % 88.1 Lymphocytes % 6.9 Monocytes % 4.4 Eosinophils % 0.0 Basophils % 0.1 Nucleated RBC % 0.0 Absolute Neutrophils 7.14 H Absolute Lymphocytes 0.56 L Absolute Monocytes 0.36 Absolute Eosinophils 0.00 Absolute Basophils 0.01 VBG pH VBG pCO2 VBG pO2 VBG HCO3 VBG Total CO2 VBG O2 Saturation VBG Base Excess Sodium Potassium Chloride Carbon Dioxide Anion Gap BUN Creatinine Estimated GFR/1.73 m2 Glucose Calcium Magnesium Total Bilirubin AST ALT Alkaline Phosphatase Troponin I Total Protein Albumin COVID-19 Source SARS-CoV-2 (PCR)
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
[2021-08-22] MEDS: Enoxaparin 40 MG/0.4 ML SYR SC (17:46)
[2021-08-22] MEDS: Benzonatate 100 MG CAP PO (18:38)
[2021-08-22] MEDS: Albuterol 2.5 MG/3 ML INH SOLN VIAL UPD (18:38)
[2021-08-22] MEDS: Atorvastatin 20 MG TAB PO (20:35)
[2021-08-22] MEDS: Potassium Chloride 20 MEQ TABCR PO (20:35)
[2021-08-22] MEDS: dilTIAZem 30 MG TAB 60 MG PO (20:37)
[2021-08-23] VITALS (52 sets, daily range): BP systolic 108–137; BP diastolic 71–85; PULSE 76–93; RESP 2–34; TEMP 36.4–37; O2SAT 84–100
[2021-08-23] MEDS: Albuterol/Ipratropium 3 ML UPD VIAL UPD ×6 (00:27→19:36)
[2021-08-23] MEDS: Levothyroxine 100 MCG TAB PO (05:49)
[2021-08-23 06:38] LABS: HCO3 (Venous) 50 mmol/L (23-28); O2 Sat (Venous) 99 %; TCO2 (Venous) 45 mmol/L (24-29); pH (Venous) 7.48 (7.31-7.41); pO2 (Venous) 148 mmHg
[2021-08-23 06:39] LABS: BE (Venous) > 15 mmol/L (-2-3)
[2021-08-23 06:42] LABS: pCO2 (Venous) 67 mmHg (41-51)
[2021-08-23] MEDS: Mirabegron 25 MG TABCR PO (07:44)
[2021-08-23] MEDS: Potassium Chloride 20 MEQ TABCR PO ×2 (07:44→19:56)
[2021-08-23] MEDS: predniSONE 20 MG TAB 40 MG PO (07:44)
[2021-08-23] MEDS: Pantoprazole 20 MG TABCR PO (07:45)
[2021-08-23] MEDS: buPROPion-CR 150 MG TABCR PO ×2 (07:45→19:55)
[2021-08-23] MEDS: Citalopram 20 MG TAB 40 MG PO (07:45)
[2021-08-23] MEDS: Montelukast 10 MG TAB PO (07:45)
[2021-08-23] MEDS: Cetirizine 10 MG TAB PO (07:45)
[2021-08-23 07:50] LABS: BUN 13 mg/dL (7-18); CREATININE 0.7 mg/dL (0.55-1.02); Calcium 8.7 mg/dL (8.5-10.1); Chloride 96 mmol/L (98-107); Glucose 94 mg/dL (74-106); Sodium 140 mmol/L (136-145)
[2021-08-23 08:11] LABS: Anion Gap -1.00001 mmol/L (3-11); CO2 > 45.0 mmol/L (21.0-32.0)
[2021-08-23] MEDS: POTASSIUM CHLORIDE 10 MEQ/100 ML BAG 100 MEQ IVPB ×2 (09:39→12:44)
[2021-08-23] MEDS: guaiFENesin 600 MG TABCR PO ×2 (09:39→19:55)
[2021-08-23] MEDS: Budesonide 0.25 MG/2 ML UPD VIAL UPD ×2 (10:30→19:54)
--- NOTE | 2021-08-23 10:31 | W.PM.PROGNOT ---
Date of Service Date of service: 08/23/21 Time of Service: 09:31 Assessment and Plan Assessment and plan (1) Influenza A: Status: Acute Assessment and plan: Etiology of acute asthma/COPD exacerbation See asthma/COPD First symptoms noted on 08/10 or 08/11. Over 10 days from onset so precautions lifted. (2) Acute hypokalemia: Status: Acute Assessment and plan: Oral and IV replacement. Monitor level Serum level may continue to be low given the frequent albuterol she is being administered. (3) Stopped smoking with greater than 30 pack year history: Status: Resolved Assessment and plan: Stopped w/o nicotine replacement. (4) Depression: Status: Chronic Assessment and plan: Cont buproprion and citalopram. Monitor on telemetry for QT prolongation. (5) GERD (gastroesophageal reflux disease): Assessment and plan: Pantoprazole 20mg daily No c/o current reflux/acid brash. (6) Acute and chronic respiratory failure with hypoxia: Status: Acute Assessment and plan: D/T her pCO2 elevation in the ED on 4L O2 per NC, attempted to decrease supplemental O2 to 2L. Her saturations dropped into the low 80's. Cont 4L per NC. VBG today: pH 7.48. pCO2 elevated at 67. HCO3 50. (7) Acute exacerbation of COPD with asthma: Status: Acute Assessment and plan: s/p Duonebs and IV solumedrol prior to arriving in ICU. Will change back to prednisone 40mg daily in the AM. Cont scheduled Duonebs and prn albuterol. On trelegy at home, but is not on formulary. Symbicort initiated was initiated, but now changed to pulmicort updrafts BID. Cont singulair. Cont allergy medications. (8) DVT prophylaxis: Status: Acute Assessment and plan: SC lovenox. (9) Partial code status: Status: Acute Assessment and plan: DNR/DNI with exception of full code for trauma. Subjective Subjective Patient reports: tolerating a regular diet (Poor appetite) and afebrile; denies nausea or vomiting Interval history since last seen: Continues to feel very weak. Exam Narrative Exam Narrative: Pleasant female lying in bed. Conversant Const General: cooperative and no acute distress Nutritional Appearance: average body habitus Orientation: alert and oriented x3 Eyes General: appearance normal, both eyes and all related structures Sclera: sclerae normal Resp Effort & Inspection: normal respiratory effort Auscultation: diminished lung sounds, rhonchi and wheezes scattered wheezes (More pronounced today. ) Cardio Rate: tachycardic Rhythm: regular rhythm Heart Sounds: S1 normal and S2 normal GI Palpation: soft and nontender Skin General skin exam: no rashes or lesions noted Extrem General: no pedal edema and no calf tenderness Psych Appearance: grossly normal Mental Status: mental status grossly normal Speech and Movement: speech and movement normal Affect: normal affect Objective Last Vital Signs Temp 37.1 C 08/22/21 23:18 Pulse 82 08/23/21 08:06 Resp 21 08/23/21 05:20 BP 113/73 08/23/21 03:00 Pulse Ox 94 08/23/21 05:20 Laboratory Results - last 24 hr 08/23/21 08/23/21 05:28 05:28 VBG pH 7.48 H VBG pCO2 67 H* VBG pO2 148 VBG HCO3 50 H VBG Total CO2 45 H VBG O2 Saturation 99 VBG Base Excess > 15 H Sodium 140 Potassium 3.0 L Chloride 96 L Carbon Dioxide > 45.0 H Anion Gap -1.91655 L BUN 13 Creatinine 0.7 Estimated GFR/1.73 m2 >= 60.00 Glucose 94 Calcium 8.7
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
[2021-08-23] MEDS: Normal Saline 500 ML 30 ML IV (12:43)
[2021-08-23] MEDS: Enoxaparin 40 MG/0.4 ML SYR SC (17:26)
--- NOTE | 2021-08-23 17:43 | NUR.NOTE ---
Nursing Note:Patient ate less than 50% of dinner, she feels it to be difficult to eat a lot at once d/t getting tired. Se is encouraged to eat protein snacks in between meals
[2021-08-23] MEDS: Atorvastatin 20 MG TAB PO (19:55)
[2021-08-23] MEDS: dilTIAZem 30 MG TAB 60 MG PO (21:43)
[2021-08-24] VITALS (11 sets, daily range): BP systolic 104–128; BP diastolic 73–88; PULSE 80–103; RESP 2–24; TEMP 35.9–36.8; O2SAT 87–95
[2021-08-24] MEDS: Levothyroxine 100 MCG TAB PO (06:25)
[2021-08-24 06:39] LABS: HCT 37.5 % (36.0-46.0); HGB 11.8 g/dL (11.2-15.7); MCH 31.8 pg (27.0-33.0); MCHC 31.5 % (32.0-36.0); MCV 101 fL (80-95); MPV 8.5 fL (8.0-11.0); Platelet Count 274 10^3/uL (130-400); RBC 3.71 10^6/uL (3.93-5.22); RDW 13.6 % (11.7-14.6); RDW-SD 50.9 fL; WBC 8.25 10^3/uL (4.4-10.8)
[2021-08-24 06:53] LABS: Anion Gap 1.8 mmol/L (3-11); BUN 13 mg/dL (7-18); CO2 41.2 mmol/L (21.0-32.0); CREATININE 0.7 mg/dL (0.55-1.02); Calcium 8.6 mg/dL (8.5-10.1); Chloride 98 mmol/L (98-107); Glucose 80 mg/dL (74-106); Magnesium 1.8 mg/dL (1.8-2.4); Potassium 3.8 mmol/L (3.5-5.1); Sodium 141 mmol/L (136-145)
[2021-08-24] MEDS: Fluticasone NASAL SPRAY 16 GM BTL NS (08:09)
[2021-08-24] MEDS: Azithromycin 250 MG TAB 500 MG PO (08:10)
[2021-08-24] MEDS: Normal Saline Flush 10 ML SYR IVP (08:10)
[2021-08-24] MEDS: buPROPion-CR 150 MG TABCR PO ×2 (08:10→20:45)
[2021-08-24] MEDS: Mirabegron 25 MG TABCR PO (08:10)
[2021-08-24] MEDS: Montelukast 10 MG TAB PO (08:11)
[2021-08-24] MEDS: Cetirizine 10 MG TAB PO (08:11)
[2021-08-24] MEDS: Citalopram 20 MG TAB 40 MG PO (08:11)
[2021-08-24] MEDS: Potassium Chloride 20 MEQ TABCR PO ×2 (08:11→20:45)
[2021-08-24] MEDS: Pantoprazole 20 MG TABCR PO (08:11)
[2021-08-24] MEDS: guaiFENesin 600 MG TABCR PO ×2 (08:11→20:45)
[2021-08-24] MEDS: predniSONE 20 MG TAB 40 MG PO (08:11)
[2021-08-24] MEDS: Budesonide 0.25 MG/2 ML UPD VIAL UPD ×2 (08:21→20:44)
[2021-08-24] MEDS: Albuterol/Ipratropium 3 ML UPD VIAL UPD ×3 (08:21→20:45)
--- NOTE | 2021-08-24 10:38 | PT.INTREAT ---
Date of service: 08/24/21 Time of Service: 10:14 PT Notes Visit Reasons: acute hypoxic,hypocapnic Resp Fail, hypokalemia Inpatient Physical Therapy Treatment Note [facility] Date: 08/24/2021 PRECAUTIONS: Influenza A, Activity as tolerated SUBJECTIVE: Jessie is pleasant and agreeable to participating in PT. She states that she does not feel back to baseline, as she does not require oxygen all the time at home. However, she feels that she is back to her baseline level of function. She expresses concerns about going home too early. OBJECTIVE: PAIN: No c/o pain BED MOBILITY/TRANSFERS Supine-sit: I Sit-supine: I Sit-stand: I Stand-sit: I GAIT Assistive Device: FWW No AD 4WW in a.m.; 4WW in p.m. Weight bearing: Full Assist: S with FWW CGA-SBA without AD S with FWW in a.m.; S with 4WW in p.m. Distance: 30' with FWW 50' without AD 80' with 4WW in a.m.; 40' + 150' + 200' Deviation: SOB, seated rest x2, increased fatigue, shaky VITALS: SaO2: 86-95% on 3L O2 with gait training 88-95% on 4L O2 with gait training in a.m.; 89-94% on 4L O2 with gait training (with finger probe) STAIRS: Up/down 3x4 and 2x6 using B rails and a step-to pattern with supervision ASSESSMENT: Patient tolerated session with c/o increased fatigue and SOB, requiring seated rest. She was able to tolerate stair training, requiring supervision only. She requires frequent seated rests due to fatigue and SOB. PLAN: Continue with general conditioning for improved activity tolerance. TREATMENT CODE/TIME: Session 1: 24 minutes; 39952 x2 (10:14) Session 2: 31 minutes; 96338 x2 (14:33)
--- NOTE | 2021-08-24 13:12 | NS.NUTBLAN_ITS ---
Date of service: 08/24/21 Time of Service: 12:12 Nutritional Consult ASSESSMENT: Paige was admitted with COPD exacerbation with hx of HLD, Depression, long time smoker, anxiety with hx of poor nutrition per medical review. Weight stable and indicates overweight status. Met with Paige today and she reports she does not like our meals. Has soda and snacks bed side. She is interested in CIB shakes, not ensure at this time. Following Heart Healthy Diet with poor intake (<25%). Estimated Needs: 4420-5010 kcal, 60-70 g protein NUTRITIONAL DIAGNOSIS: Inadquate macronutrient intake due disordered eating patterns and nutrition rel ated knowledge defit INTERVENTION: Will liberalize diet to Regular for more choices Will provide CIB shakes BID MONITORING AND EVALUATION: will monitor po intake, labs, weight Time Spent in Nutritional Counseling and Treatment: 10
[2021-08-24] MEDS: Enoxaparin 40 MG/0.4 ML SYR SC (17:15)
--- NOTE | 2021-08-24 18:03 | CMPROGNOTE_ITS ---
- If Service Date Differs Date of service: 08/24/21 Time of Service: 18:03 Care Management Progress Note S/O: Paige remains inpatient, she continues to be treated and remains on 3L NC O2 at this time. CM continues to follow. A: 50 year old female admitted to [facility] 08/21/21 for acute hypoxic, hypocapnic respiratory failure, hypokalemia P: Paige will return home when medically cleared by MD. Her s/o will drive her home via private vehicle. She will follow up with her PCP and discharge plan of care, resume home O2 and utilize her 4WW. CM will continue to follow.
--- NOTE | 2021-08-24 19:55 | PGE_ITS ---
Date of Service Date of service: 08/24/21 Time of Service: 18:55 Assessment and Plan Assessment and plan (1) Influenza A: Status: Acute Assessment and plan: Etiology of acute asthma/COPD exacerbation See asthma/COPD First symptoms noted on 08/10 or 08/11. Over 10 days from onset so precautions lifted. (2) Acute hypokalemia: Status: Acute Assessment and plan: Oral and IV replacement. Monitor level. Now normal. Serum level may continue to be low given the frequent albuterol she is being administered. (3) Stopped smoking with greater than 30 pack year history: Status: Resolved Assessment and plan: Stopped w/o nicotine replacement. (4) Depression: Status: Chronic Assessment and plan: Cont buproprion and citalopram. She has a flat affect. Monitor on telemetry for QT prolongation. (5) GERD (gastroesophageal reflux disease): Assessment and plan: Pantoprazole 20mg daily No c/o current reflux/acid brash. (6) Acute and chronic respiratory failure with hypoxia: Status: Acute Assessment and plan: D/T her pCO2 elevation in the ED on 4L O2 per NC, attempted to decrease supplemental O2 to 2L. Her saturations dropped into the low 80's. Cont 4L per NC. Encourage IS Ambulation. (7) Acute exacerbation of COPD with asthma: Status: Acute Assessment and plan: s/p Duonebs and IV solumedrol prior to arriving in ICU. Now on burst of prednisone 40mg daily. Cont scheduled Duonebs and prn albuterol. On trelegy at home, but is not on formulary. Symbicort initiated was initiated, but now changed to pulmicort updrafts BID. Cont singulair. Cont allergy medications. (8) DVT prophylaxis: Status: Acute Assessment and plan: SC lovenox. (9) Partial code status: Status: Acute Assessment and plan: DNR/DNI with exception of full code for trauma. Subjective Subjective Patient reports: feels better, tolerating a regular diet (Has diminished appe tite.) and afebrile; denies nausea or vomiting Interval history since last seen: Still feels weak but worked with PT this AM and walked with RT in the afternoon. Exam Narrative Exam Narrative: Pleasant female lying in bed. Conversant Const General: cooperative and no acute distress Nutritional Appearance: average body habitus Orientation: alert and oriented x3 Eyes General: appearance normal, both eyes and all related structures Sclera: sclerae normal Resp Effort & Inspection: normal respiratory effort Auscultation: diminished lung sounds and wheezes (soft, end-expiratory) Cardio Rate: tachycardic Rhythm: regular rhythm Heart Sounds: S1 normal and S2 normal GI Palpation: soft and nontender Skin General skin exam: no rashes or lesions noted Extrem General: no pedal edema and no calf tenderness Psych Appearance: grossly normal Mental Status: mental status grossly normal Speech and Movement: speech and movement normal Affect: normal affect Objective Last Vital Signs Temp 36.4 C L 08/24/21 15:59 Pulse 89 08/24/21 15:59 Resp 17 08/24/21 15:59 BP 104/73 08/24/21 15:59 Pulse Ox 93 08/24/21 15:59 Laboratory Results - last 24 hr 08/24/21 08/24/21 06:20 06:20 WBC 8.25 RBC 3.71 L Hgb 11.8 Hct 37.5 MCV 101 H MCH 31.8 MCHC 31.5 L D RDW 13.6 Plt Count 274 MPV 8.5 Sodium 141 Potassium 3.8 Chloride 98 Carbon Dioxide 41.2 H Anion Gap 1.8 L BUN 13 Creatinine 0.7 Estimated GFR/1.73 m2 >= 60.00 Glucose 80 Calcium 8.6 Magnesium 1.8
[2021-08-24] MEDS: Atorvastatin 20 MG TAB PO (20:45)
[2021-08-24] MEDS: dilTIAZem 30 MG TAB 60 MG PO (21:45)
[2021-08-25] VITALS (8 sets, daily range): BP systolic 108–122; BP diastolic 75–78; PULSE 81–90; RESP 2–20; TEMP 35.9–36.7; O2SAT 93–97
[2021-08-25] MEDS: Levothyroxine 100 MCG TAB PO (05:37)
[2021-08-25] MEDS: Albuterol/Ipratropium 3 ML UPD VIAL UPD ×2 (07:29→11:37)
[2021-08-25] MEDS: Budesonide 0.25 MG/2 ML UPD VIAL UPD (07:34)
[2021-08-25] MEDS: Fluticasone NASAL SPRAY 16 GM BTL NS (07:47)
[2021-08-25] MEDS: Pantoprazole 20 MG TABCR PO (07:48)
[2021-08-25] MEDS: Montelukast 10 MG TAB PO (07:48)
[2021-08-25] MEDS: Potassium Chloride 20 MEQ TABCR PO (07:48)
[2021-08-25] MEDS: Mirabegron 25 MG TABCR PO (07:48)
[2021-08-25] MEDS: guaiFENesin 600 MG TABCR PO (07:48)
[2021-08-25] MEDS: Cetirizine 10 MG TAB PO (07:48)
[2021-08-25] MEDS: predniSONE 20 MG TAB 40 MG PO (07:48)
[2021-08-25] MEDS: Citalopram 20 MG TAB 40 MG PO (07:48)
[2021-08-25] MEDS: buPROPion-CR 150 MG TABCR PO (07:48)
--- NOTE | 2021-08-25 09:15 | CMPROGNOTE_ITS ---
- If Service Date Differs Date of service: 08/25/21 Time of Service: 09:15 Care Management Progress Note S/O: Paige remains inpatient, CM continues to follow. A: 50 year old female admitted to [facility] 08/21/21 for acute hypoxic, hypocapnic respiratory failure, hypokalemia P: Paige will return home when medically cleared by . Her s/o will drive her home via private vehicle. She will follow up with her PCP and discharge plan of care, resume home O2 and utilize her 4WW. CM will continue to follow.
--- NOTE | 2021-08-25 09:59 | PDOC.CMDIS ---
- If Service Date Differs Date of service: 08/25/21 Time of Service: 09:59 LACE Index Scoring Tool - Questions: Length of Stay (in days): 4 - 6 Acuity (Admit via E.D.?): Yes Comorbidities: Chronic Pulmonary Disease E.D. Visits: 3 - Answers: Total Score: 12 Risk of Readmission: High Risk Care Management Discharge Reason for Hospitalization: Acute hypoxic, hypocapnic resp failure, hypokalemia Discharge Plan: Paige will return home when medically cleared by MD. Her s/o, Suleiman will drive her home via private vehicle. She will follow up with her PCP and discharge plan of care, resume home O2 and utilize her 4WW. Patient/Family Education Needs: Review discharge instructions, discuss Ask Me Three. Services Needed at Discharge: Respiratory Care Services (Resume Home O2)
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
== END 2021-08-25 15:19 | disposition home or self-care (01) | DRG 193 ==
LOC: ER 16:50 → ICU 17:44 → MS 08-23 12:25
PROVIDERS: Admitting Provider Family Medicine; Emergency Provider Student in an Organized Health Care Education/Training Program; PCP Student in an Organized Health Care Education/Training Program; Visit Provider Family Medicine
DX: J10.1 Influenza due to other identified influenza virus with other respiratory manifestations (principal); J96.21 Acute and chronic respiratory failure with hypoxia; J44.1 Chronic obstructive pulmonary disease with (acute) exacerbation; E87.3 Alkalosis; Z66 Do not resuscitate; E78.5 Hyperlipidemia, unspecified; K21.9 Gastro-esophageal reflux disease without esophagitis; F32.A Depression, unspecified; E87.6 Hypokalemia; E83.42 Hypomagnesemia; E86.0 Dehydration; R91.1 Solitary pulmonary nodule; Z99.81 Dependence on supplemental oxygen; H60.62 Unspecified chronic otitis externa, left ear; K29.70 Gastritis, unspecified, without bleeding; L30.9 Dermatitis, unspecified; Z87.891 Personal history of nicotine dependence
CPT/HCPCS: 36415; 80048; 80053; 82805; 85027; 87635; 94640; 96365; 96375; 97162; 97530; 99291; J1650; 71045; 83735; 84484; 85025; 94660; 94667; 94668; 94760; 99223; 99232; 99238; J2930; J3475; J3480; J7512; J7613; J7620; J7633

== ENCOUNTER 2021-09-04 02:00 | Outpatient (CLI) | payer MEDICARE, SELFPAY ==
[2021-09-04 16:24] LABS: Anion Gap 7.8 mmol/L (3-11); BUN 7 mg/dL (7-18); CO2 31.2 mmol/L (21.0-32.0); CREATININE 0.9 mg/dL (0.55-1.02); Chloride 106 mmol/L (98-107); Glucose 91 mg/dL (74-106); Potassium 4.4 mmol/L (3.5-5.1); Sodium 145 mmol/L (136-145)
== END 2021-09-04 02:01 | disposition home or self-care (01) ==
LOC: LBO 02:00
PROVIDERS: PCP Student in an Organized Health Care Education/Training Program; Visit Provider Internal Medicine
DX: E86.0 Dehydration (principal); E87.3 Alkalosis; E87.6 Hypokalemia
CPT/HCPCS: 36415; 80048

== ENCOUNTER → 2021-11-02 10:33 | Outpatient (BNVA) | payer MEDICARE, SELFPAY | PROVIDERS: PCP Student in an Organized Health Care Education/Training Program; Referring Provider Student in an Organized Health Care Education/Training Program; Visit Provider Physical Therapy Assistant | DX: L08.9 Local infection of the skin and subcutaneous tissue, unspecified (principal) | CPT/HCPCS: 99213 ==

== ENCOUNTER → 2021-11-13 12:41 | Outpatient (BNVA) | payer MEDICARE, SELFPAY | PROVIDERS: PCP Student in an Organized Health Care Education/Training Program; Referring Provider Student in an Organized Health Care Education/Training Program; Visit Provider Physical Therapy Assistant | DX: L98.9 Disorder of the skin and subcutaneous tissue, unspecified (principal) | CPT/HCPCS: 11440 ==

== ENCOUNTER 2021-12-21 04:12 | Outpatient (CLI) | payer OTHER, SELFPAY | END 2021-12-21 04:13 | disposition home or self-care (01) | LOC: RT 04:12 | PROVIDERS: PCP Student in an Organized Health Care Education/Training Program; Visit Provider Pediatrics Pediatric Rheumatology | DX: Z02.71 Encounter for disability determination (principal); J44.9 Chronic obstructive pulmonary disease, unspecified; Z99.81 Dependence on supplemental oxygen | CPT/HCPCS: 94618 ==

== ENCOUNTER 2022-04-23 00:56 | Outpatient (CLI) | payer MEDICARE, SELFPAY ==
--- NOTE | 2022-04-23 08:15 | DI.US_ITS ---
Exam(s) US SOFT TISS ABD WALL/LOW BACK EXAM: US SOFT TISS ABD WALL/LOW BACK CLINICAL HISTORY: Likely lipoma, L posterior hip; ? CYST, D17.9. TECHNIQUE: Ultrasound was performed using standard protocol. COMPARISON: None. FINDINGS: Sonographic assessment utilizing grayscale and color Doppler imaging was performed and targeted to th e area of clinical concern. There is a 2.9 x 1.3 x 2.8 cm isoechoic mass in the soft tissues of the left lower back corresponding to the palpable abnormality. No abnormal enhancement is seen. Findings are suspicious for lipoma. IMPRESSION: Findings suggestive of lipoma corresponding to the palpable abnormality. DATA REPOSITORY:
== END 2022-04-23 01:16 ==
PROVIDERS: PCP Student in an Organized Health Care Education/Training Program; Visit Provider Family Medicine
DX: D17.1 Benign lipomatous neoplasm of skin and subcutaneous tissue of trunk (principal)
CPT/HCPCS: 76705

== ENCOUNTER 2022-05-04 02:15 | Outpatient (CLI) | payer MEDICARE, SELFPAY ==
--- NOTE | 2022-05-04 06:45 | DI.RAD_ITS ---
Exam(s) XR HIP LT COMPLETE AP PELVIS EXAM: XR HIP LT COMPLETE AP PELVIS CLINICAL HISTORY: left iliac crest tenderness ,OUT OF PROPORTION,M89.8X8. TECHNIQUE: 2D digital imaging was performed. COMPARISON: No exams were available for comparison FINDINGS: Two views: No evidence of pelvic nor hip fracture. No obvious degenerative changes in the hips. No joint space narrowing. No osteophytes. No significant osseous lesions in the pelvic bones and sacroiliac joint s appear unremarkable. IMPRESSION: No significant radiographic findings. DATA REPOSITORY: RADIATION DOSE DELIVERED:
== END 2022-05-04 02:35 ==
PROVIDERS: PCP Student in an Organized Health Care Education/Training Program; Visit Provider Student in an Organized Health Care Education/Training Program
DX: M89.8X8 Other specified disorders of bone, other site (principal); M54.59 Other low back pain
CPT/HCPCS: 73502

== ENCOUNTER → 2022-06-10 10:10 | Outpatient (BNVA) | payer MEDICARE, SELFPAY | PROVIDERS: PCP Student in an Organized Health Care Education/Training Program; Referring Provider Student in an Organized Health Care Education/Training Program; Visit Provider Surgery | DX: D17.1 Benign lipomatous neoplasm of skin and subcutaneous tissue of trunk (principal); J44.9 Chronic obstructive pulmonary disease, unspecified; Z99.81 Dependence on supplemental oxygen; R91.1 Solitary pulmonary nodule | CPT/HCPCS: 99212; 99214 ==

== ENCOUNTER 2022-06-29 08:30 | Day surgery (SDC) | payer MEDICARE, SELFPAY ==
[2022-06-29] MEDS: LORazepam 0.5 MG TAB PO (08:59)
[2022-06-29] MEDS: Lidocaine/Prilocaine Cream 5 GM TUBE TP (08:59)
[2022-06-29 09:12] VITALS: BP 118/97; PULSE 88; RESP 18; TEMP 36.4; O2SAT 95
[2022-06-29] MEDS: Acetaminophen 500 MG TAB 1000 MG PO (09:27)
--- NOTE | 2022-06-29 10:05 | SOFT_PTH ---
PATIENT: Jessie Sanchez LOC: [facility] U#:[id number] AGE/SX: 51/F ROOM: RE06/29/[address]: Karuna Santana : 1970 BED: DIS: 06/29/2022 SPEC #: [id number] RECD: 06/29/22 12:54 STATUS: [facility] REQ #: [id number] VERONIKA: 06/29/22 10:[address]: Karuna Santana DEPT: Surgical Specimen RECD BY: Celeste Watts ENTERED: 06/29/22 12:55 SP TYPE: SOFT OTHR DR: Belkys Bundy DO Tissues: 1 - SOFT TISSUE MISC (INC. LIPOMA) Procedures: GROSS AND MICRO LEVEL 3 Comments: [id number]
[2022-06-29] MEDS: Sodium Bicarbonate 50 MEQ/50 ML VIAL (10:12)
[2022-06-29] MEDS: Bupivacaine 0.25% Pres-Free W/EPI 30 ML VIAL (10:12)
[2022-06-29 10:21] VITALS: BP 118/84; PULSE 74; RESP 18; TEMP 36.1; O2SAT 96
--- NOTE | 2022-06-29 10:26 | PDOC.DSDIS_ITS ---
Date of service: 06/29/22 Time of Service: 10:26 Discharge Plan Disposition Patient Disposition: Home Condition: Good Discharge Details Reason For Visit: lipoma removal Attending Provider: Karuna Santana Primary Care Provider: Belkys Bundy Meds and New Rx's Prescriptions: Continued (DME) Aerochamber MV Spacer See Rx Instructions .ROUTE .MEDSUPPLY Qty: 1 0RF Rx Instructions: As directed benzonatate 100 mg capsule 100 mg PO QID PRN (Reason: cough) Qty: 60 1RF guaifenesin 600 mg tablet extended release 12hr 600 mg PO Q12H PRN (Reason: congestion; thick phlegm) Qty: 20 1RF Rx Instructions: Trial for expectoration of stuck phlegm ipratropium-albuterol 0.5 mg-3 mg(2.5 mg base)/3 mL solution for nebulization 3 ml IH QID PRN (Reason: shortness of breath or wheezing) Qty: 360 1RF multivitamin Tablet 1 tab PO DAILY albuterol sulfate [Ventolin HFA] 90 mcg/actuation HFA aerosol inhaler 2 puff IH Q6H PRN Trelegy Ellipta 200-62.5-25 mcg blister with device 1 inh inhalation DAILY Rx Instructions: 04/25/20 [facility] prescribes ibuprofen 800 mg tablet 800 mg PO BID PRN (Reason: pain) Qty: 60 1RF Hold Instructions: Resume on 09/01/21. hold while taking prednisone (taking both simultaneously may lead to ulcers) Rx Instructions: Take with FOOD! cetirizine [Zyrtec] 10 mg tablet 10 mg PO DAILY Qty: 90 3RF Rx Instructions: 04/25/20 [facility] fluticasone propionate 50 mcg/actuation spray,suspension 2 spray intranasal DAILY Qty: 16 0RF Rx Instructions: administer into each nostril fluconazole 150 mg tablet 150 mg PO Q3D Qty: 2 1RF Rx Instructions: may repeat second dose 72 hrs after first dose if symptoms persist (DME) Oxygen Tank See Rx Instructions .ROUTE .MEDSUPPLY Qty: 1 Rx Instructions: 2LPM at rest and qHS/3 LPM continuous with activity/3 pulse at rest/4-5 pulse with activity on POC montelukast [Singulair] 10 mg tablet 10 mg PO DAILY Qty: 90 3RF bupropion HCl [Wellbutrin SR] 150 mg tablet sustained-release 12 hr 150 mg PO BID Qty: 180 3RF atorvastatin [Lipitor] 20 mg tablet 20 mg PO QHS Qty: 90 3RF citalopram [Celexa] 40 mg tablet 40 mg PO DAILY Qty: 90 3RF trazodone 100 mg tablet 200 mg PO QHS PRN (Reason: insomnia) Qty: 180 3RF diltiazem HCl [Cardizem] 30 mg tablet 60 mg PO HS Qty: 180 3RF Myrbetriq 25 mg tablet extended release 24 hr 25 mg PO DAILY Qty: 90 3RF levothyroxine 100 mcg tablet 100 mcg PO DAILY Qty: 90 3RF Rx Instructions: INCREASE per 05/2020 labs omeprazole 40 mg capsule,delayed release(DR/EC) 40 mg PO DAILY Qty: 90 3RF No Action cyclobenzaprine 10 mg tablet 10 mg PO TID PRN PRN (Reason: muscle spasm pain ) Qty: 30 1RF Discharge Instructions Additional Instructions: Wound Care Instruction Pain Control Use ice!? Ice keeps the swelling down and swelling is what causes pain.? Never apply ice directly to the skin.? Wrap it in a towel or cloth.? Apply ice 20 minutes on and 20 minutes off for pain control.? Use as needed. Take Tylenol 500 mg by mouth with food every 4 hours as needed for pain. Or ibuprofen 600 mg by mouth with food every 6 hours as needed for pain.? Do not take Tylenol if you have a history of heavy drinking, hepatitis C or liver problems.? Do not take ibuprofen if you have a history of stomach ulcers/problems, bleeding problem or kidney issues. ? Always wash your hands before touching your incision. ? Keep the incision clean, dry, and out of water, keep the incision out of water. ? Do not to pick at the scabs. Scabs help protect the wound. ? You can take a shower in 24 hours and wash the incision with soap and water. Pat dry/don?t scrub. It?s OK to wash around the incision. But don?t spray water directly on it. ? Pat stitches dry if they get wet. Don't rub. ? Check the incision site daily for pain, redness, drainage, swelling, or separation of the incision edges. ? Make sure any clothing that touches the incision is loose-fitting. This will prevent rubbing. If the incision is on the head, keep your child from wearing caps or other head coverings. These may rub against the incision. As your incision heals, the skin may appear pink or red. It may also feel sl ightly bumpy or raised. This is called a healing ridge. Over time, the color should fade and the raised skin will become less noticeable. When to seek medical care Call your healthcare provider right away if you have any of these: ? More pain, redness, swelling, bleeding, or foul-smelling discharge around the incision area ? Fever of 101?F (38.3?C) or higher, or as directed by your child's healthcare provider ? Shaking chills ? Vomiting or nausea that doesn?t go away ? Numbness, coldness, or tingling around the incision area, or changes in skin color ? Opening of the sutures or wound -Stitches or nadia that come apart or fall out or surgical tape falls off before 7 days, or as directed by your healthcare provider ?[facility]: [phone] Stand Alone Forms: Arjun Finney (DSU) Activity:: see above Remove Dressings/Wound Care:: 24 hours Shower/Bathe:: 24 hours Diet:: As Tolerated Discharge Orders Discharge Orders: Discharge Order (Routine); Ordered 06/29/22 Ordered By: Karuna Santana DS: Diagnosis Discharge Diagnosis (1) Lipoma of back: Status: Acute
--- NOTE | 2022-06-29 10:31 | ROE_ITS ---
Date of service: 06/29/22 Time of Service: 10:31 Operative Note Operative Note DATE OF PROCEDURE: 06/29/22 PRE-OP DIAGNOSIS: lipoma POST-OP DIAGNOSIS: same PROCEDURE: excision lipoma SURGEON: Karuna Santana EXECUTIVE DIRECTOR OF NURSING: Apurva Lazaro ANESTHESIA TYPE: Local By Surgeon Refer to Anesthesia Record ESTIMATED BLOOD LOSS: 3 PATHOLOGY: other COMPLICATIONS: None Patient was transported to: same day Patient's condition: stable Procedure Description: Indication The patient is seen at the request of the PCP. The pt presents for lesion removal. We have discussed this procedure, including option of not performing surgery, technique of surgery and potential for: bleeding/infection/scarring/need for removal of more tissue/ reaction to local anethesetics or sutures material/poor cosmesis/reoccurrence, and post-procedural care that is required, as well as a multi-modality pain plan.? Post-procedural pain/swelling/bruising is normal. Patient is able to do post procedural dressing changes and understands what is expected. OBJECTIVE: Patient appears well. Vitals are normal. The patient has no allergies to lidocaine or suture material. The patient not on any blood thinners.? They are not on steroids are any other immunosuppressants. Informed consent was obtained prior to beginning the procedure. The area was marked and doubled checked/ID?ed with the pt. PAUSE for the CAUSE completed. The risks of lesion removal include but are not limited to: bleeding, infection, scarring, reoccurrence, and the need for removal of more tissue, and complications of anesthesia. Location: ASSESSMENT: The lesion is _2x2 Cm in size. Differential diagnosis includes:_lipoma Location: LEFT lower back Procedural Sedation .25% MArcaine buffered 30_cc Technique Patient appears well. Vitals are normal. The patient has no allergies to lidocaine or suture material. The patient not on any blood thinners. The pt has no history of keloids or problems with healing in the past. Informed consent was obtained prior to beginning the procedure. The area was marked and doubled checked/ID?ed with the pt. PAUSE for the CAUSE completed. The risks of lesion removal include but are not limited to: bleeding, infection, scarring, reoccurrence, and the need for removal of more tissue, and complications of anesthesia. After informed consent was obtained, using Chloroprep for cleansing and quarter percent Marcaine 30 cc is used for local anesthetic; using sterile technique, PROCEDURE:_Removal lipoma was performed. The lesion is 2 cm in size. The incision was 2 Cm long. The stitches of 3-0 Vicryl are placed to close the deep tissue. The incision is closed w/ interrupted sutures of 3-0 nylon A sterile dressing is applied, and wound care instructions provided. The procedure was well tolerated without complications. Plan: The patient will follow up in 10 days for suture removal and review of pathology. If there is any bleeding/redness/drainage/swelling/pain or tenderness- call the clinic. Patient was given instructions in wound care, activity, warning signs, appointment for follow up. If the patient has any questions or concerns, should call our clinic or go to ER/urgent care after hours. Patient expressed understanding in directions for care and was given a written copy of instructions. Rx=see Prime Grid, if appropriate Pt tolerated the procedure well without complications Patient was given instruction in activity restrictions, wound care and dressing changes. Medication usage, diet, warning signs to look for (and what to do if they occur), and an appointment for follow-up.
== END 2022-06-29 10:39 | disposition home or self-care (01) ==
PROVIDERS: PCP Student in an Organized Health Care Education/Training Program; Visit Provider Surgery
PROC: (CPT 11402; principal; 2022-06-29 10:00)
DX: D17.1 Benign lipomatous neoplasm of skin and subcutaneous tissue of trunk (principal)
CPT/HCPCS: 11402; 12031; 88304

== ENCOUNTER → 2022-07-08 09:20 | Outpatient (BNVA) | payer MEDICARE, SELFPAY | PROVIDERS: PCP Student in an Organized Health Care Education/Training Program; Referring Provider Student in an Organized Health Care Education/Training Program; Visit Provider Surgery | DX: D17.1 Benign lipomatous neoplasm of skin and subcutaneous tissue of trunk (principal); Z48.817 Encounter for surgical aftercare following surgery on the skin and subcutaneous tissue ==

== ENCOUNTER 2022-07-15 13:38 | Emergency (ER) | payer MEDICARE, SELFPAY ==
[2022-07-15 13:50] VITALS: BP 104/81; PULSE 90; O2SAT 94
[2022-07-15 14:14] VITALS: RESP 18
--- NOTE | 2022-07-15 14:45 | DI.CT_ITS ---
Exam(s) CT CHEST PE CTA EXAM: CT CHEST PE CTA CLINICAL HISTORY: hemoptysis, h/o copd, recent flu sx, r/o PE. TECHNIQUE: Imaging Protocol: CT angiography of the chest was performed using pulmonary embolus teo col. Multi planar reconstructions were performed. CONTRAST MATERIAL: Intravenous: Omnipaque 350 Contrast volume: 100 cc COMPARISON: CR CHEST 2 VIEWS PA,LAT from 04/23/[address] ABDOMEN PELVIS W from 12/05/2020 FINDINGS: CHEST: PULMONARY ARTERIES: There are no intraluminal filling defects to suggest acute pulmonary emboli. LUNGS: In the right middle lobe there is multilevel patchy infiltrate. Most prominent these is in th e lateral segment of the right middle lobe, measuring 1.5 by 1.5 cm. Also subpleural nodular infiltr ate in the anterior basal segment of the ipsilateral right lower lobe. There is a 5 millimeter nonca lcified nodule in the right upper lobe. There are no pleural effusions on either side. Mild scattered benign-appearing increased markings in the left lung. MEDIASTINUM: There is no hilar adenopathy. There are slightly prominent lymph nodes aortopulmonic win remigio and in the subcarinal region. No axillary adenopathy. Visualized thyroid unremarkable. CARDIAC: Heart size is normal. There is a small pericardial effusion maximum thickness of the anteri or pericardium measuring 4 mm. Caliber of the ascending thoracic aorta is upper normal. No dissecti on. No shift of the interventricular septum. PARTIALLY VISUALIZED UPPERMOST ABDOMEN: No obvious findings OSSEOUS: No significant osseous lesions.. IMPRESSION: 1. No evidence of acute pulmonary emboli. No evidence of pulmonary infarction.No pleural effusions. 2. However, there is patchy infiltrate in the right lung, most prominent in the right middle lobe but also in the anterior basal segment of the right lower lobe. Also 5 millimeter noncalcified nodule i n the right upper lobe. 3. There is a small 4 millimeter thickness pericardial effusion. Heart size is normal. No aortic di ssection. Called by myself to ER physician. RADIATION DOSE DELIVERED: 324.78mGy.cm Total DLP DATA REPOSITORY: All CT scans at this facility are submitted to the National Radiology Data Registry (NRDR) Dose Index Registry (DIR) with the [employer] (A[employer]). RADIATION OPTIMIZATION: All CT scans at this facility use at least one of these dose optimization te chniques: automated exposure control; mA and/or kV adjustment per patient size (includes targeted exa ms where dose is matched to clinical indication); or iterative reconstruction.
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
[2022-07-15 15:08] LABS: Abs Immature Grans 0.01 10^3/uL (0.0-0.06); Absolute Basophil Count 0.06 10^3/uL (0.0-0.2); Absolute Eosinophil Count 0.15 10^3/uL (0.0-0.7); Absolute Monocyte Count 0.48 10^3/uL (0.1-0.8); Absolute Neutrophil Count 3.17 10^3/uL (1.2-6.7); Basophils % 1.1; Eosinophils % 2.7; HCT 38.1 % (36.0-46.0); HGB 12.7 g/dL (11.2-15.7); Immature Grans % 0.2; Lymphocytes % 30.5; MCH 30.3 pg (27.0-33.0); MCHC 33.3 % (32.0-36.0); MCV 91 fL (80-95); MPV 9.2 fL (8.0-11.0); Monocytes % 8.6; Neutrophils % 56.9; Platelet Count 250 10^3/uL (130-400); RBC 4.19 10^6/uL (3.93-5.22); RDW 11.9 % (11.7-14.6); RDW-SD 39.2 fL; WBC 5.57 10^3/uL (4.4-10.8)
[2022-07-15 15:29] LABS: ALT 16 U/L (14-59); AST 11 U/L (15-37); Albumin 3.2 g/dL (3.4-5.0); Alkaline Phosphatase 138 U/L (46-116); BUN 8 mg/dL (7-18); Bilirubin, Total 0.2 mg/dL (0.2-1.0); CREATININE 1.2 mg/dL (0.55-1.02); Calcium 9.1 mg/dL (8.5-10.1); Chloride 104 mmol/L (98-107); Glucose 88 mg/dL (74-106); Magnesium 1.7 mg/dL (1.8-2.4); Sodium 142 mmol/L (136-145); Total Protein 6.9 g/dL (6.4-8.2); Troponin I < 50 ng/L (<or=60)
[2022-07-15] MEDS: Normal Saline 250 ML 500 ML IV (15:45)
[2022-07-15] MEDS: Omnipaque 350 MG/ML 100 ML BTL IJ (15:52)
[2022-07-15] MEDS: Normal Saline - Diluent 50 ML VIAL IJ (15:53)
[2022-07-15] MEDS: Normal Saline Flush 10 ML SYR IVP (15:54)
[2022-07-15 16:20] LABS: COVID-19 PCR Negative (Negative); Influenza A PCR Negative (Negative); Influenza B PCR Negative (Negative); RSV PCR Negative (Negative)
[2022-07-15] MEDS: Potassium Chloride 20 MEQ TABCR 40 MEQ PO (16:21)
[2022-07-15 16:28] LABS: Source Nasopharynx
[2022-07-15 16:30] VITALS: TEMP 36.3
[2022-07-15 17:34] VITALS: BP 95/70; PULSE 72; RESP 18; TEMP 37.1; O2SAT 95
[2022-07-15] MEDS: Amoxicillin 875/Clav. 125 TAB PO (17:43)
[2022-07-15] MEDS: Doxycycline Hyclate 100 MG CAP PO (17:43)
[2022-07-15] MEDS: Magnesium Oxide 400 MG TAB PO (17:43)
[2022-07-15] MEDS: Amox. 875/Clav. 125, 2 TABS/BTL 1 TAB PO (17:44)
[2022-07-15] MEDS: Doxycycline Hyclate 100 MG, 2 CAPS/BTL PO (17:44)
== END 2022-07-15 17:55 | disposition home or self-care (01) ==
PROVIDERS: Emergency Provider Physician Assistant; PCP Student in an Organized Health Care Education/Training Program
DX: J44.0 Chronic obstructive pulmonary disease with (acute) lower respiratory infection; J18.9 Pneumonia, unspecified organism; Z86.16 Personal history of COVID-19; Z87.891 Personal history of nicotine dependence; Z20.822 Contact with and (suspected) exposure to COVID-19
CPT/HCPCS: 71275; 80053; 87637; 96360; 99284; 99285; 83735; 84484; 85025; J3490

== ENCOUNTER 2022-07-30 01:59 | Outpatient (CLI) | payer MEDICARE, SELFPAY ==
[2022-07-30 09:26] LABS: BUN 7 mg/dL (7-18); CREATININE 1.2 mg/dL (0.55-1.02); Calcium 9.1 mg/dL (8.5-10.1); Chloride 106 mmol/L (98-107); Glucose 90 mg/dL (74-106); Potassium 3.1 mmol/L (3.5-5.1); Sodium 143 mmol/L (136-145); TSH (W/Ref FT4) 11.46 uIU/mL (0.36-3.74)
[2022-07-30 09:43] LABS: FREE T4 1.28 ng/dL (0.76-1.46)
== END 2022-07-30 02:00 | disposition home or self-care (01) ==
PROVIDERS: PCP Student in an Organized Health Care Education/Training Program; Visit Provider Student in an Organized Health Care Education/Training Program
DX: E03.9 Hypothyroidism, unspecified (principal); E86.0 Dehydration; Z91.89 Other specified personal risk factors, not elsewhere classified
CPT/HCPCS: 36415; 80048; 84439; 84443

== ENCOUNTER 2022-08-06 12:19 | Outpatient (REF) | payer MEDICARE, SELFPAY ==
[2022-08-06 13:42] LABS: C Diff PCR Negative (Negative)
== END 2022-08-06 12:20 | disposition home or self-care (01) ==
LOC: LBN 12:19
PROVIDERS: PCP Student in an Organized Health Care Education/Training Program; Visit Provider Student in an Organized Health Care Education/Training Program
DX: R19.7 Diarrhea, unspecified (principal); N18.30 Chronic kidney disease, stage 3 unspecified
CPT/HCPCS: 87046; 87493; 87505

== ENCOUNTER 2022-08-12 01:41 | Outpatient (CLI) | payer MEDICARE, SELFPAY ==
[2022-08-12 15:04] LABS: Abs Immature Grans 0.01 10^3/uL (0.0-0.06); Absolute Basophil Count 0.06 10^3/uL (0.0-0.2); Absolute Eosinophil Count 0.17 10^3/uL (0.0-0.7); Absolute Lymphocyte Count 2.06 10^3/uL (1.2-3.4); Absolute Monocyte Count 0.46 10^3/uL (0.1-0.8); HGB 14.3 g/dL (11.2-15.7); Immature Grans % 0.2; Lymphocytes % 35.8; MCH 30.1 pg (27.0-33.0); MCHC 32.5 % (32.0-36.0); MCV 93 fL (80-95); MPV 9.8 fL (8.0-11.0); Platelet Count 187 10^3/uL (130-400); RBC 4.75 10^6/uL (3.93-5.22); RDW 12.4 % (11.7-14.6); RDW-SD 42.6 fL; WBC 5.76 10^3/uL (4.4-10.8)
[2022-08-12 15:59] LABS: Anion Gap 7.5 mmol/L (3-11); BUN 6 mg/dL (7-18); CO2 29.5 mmol/L (21.0-32.0); Calcium 9.1 mg/dL (8.5-10.1); Chloride 106 mmol/L (98-107); Estimated GFR 68.21 (mL/min/1.73m2); Glucose 95 mg/dL (74-106); Magnesium 1.8 mg/dL (1.8-2.4); Potassium 3.8 mmol/L (3.5-5.1); Sodium 143 mmol/L (136-145)
== END 2022-08-12 01:42 | disposition home or self-care (01) ==
LOC: LBO 01:41
PROVIDERS: PCP Student in an Organized Health Care Education/Training Program; Visit Provider Student in an Organized Health Care Education/Training Program
DX: R19.7 Diarrhea, unspecified; N18.30 Chronic kidney disease, stage 3 unspecified; B37.31 Acute candidiasis of vulva and vagina; J44.9 Chronic obstructive pulmonary disease, unspecified
CPT/HCPCS: 36415; 80048; 83735; 85025

== ENCOUNTER 2022-09-07 08:30 | Outpatient (RCR) | payer MEDICARE, SELFPAY ==
[2022-08-10] MEDS: Normal Saline Flush 10 ML SYR IVP (07:51)
[2022-08-10 08:13] LABS: Potassium 2.5 mmol/L (3.5-5.1)
[2022-08-10] MEDS: Potassium Chloride 20 MEQ TABCR PO (10:57)
[2022-08-17] MEDS: Normal Saline Flush 10 ML SYR IVP (07:51)
[2022-08-17 08:25] LABS: Anion Gap 5.8 mmol/L (3-11); BUN 7 mg/dL (7-18); CO2 33.2 mmol/L (21.0-32.0); CREATININE 1.1 mg/dL (0.55-1.02); Calcium 9.1 mg/dL (8.5-10.1); Chloride 104 mmol/L (98-107); Estimated GFR 60.84 (mL/min/1.73m2); Glucose 105 mg/dL (74-106); Potassium 3.7 mmol/L (3.5-5.1); Sodium 143 mmol/L (136-145)
[2022-08-24] MEDS: Normal Saline Flush 10 ML SYR IVP (08:02)
[2022-08-24 08:13] LABS: Potassium 3.4 mmol/L (3.5-5.1)
[2022-08-31 08:15] VITALS: BP 115/79; PULSE 81; RESP 20; TEMP 36.7; O2SAT 95
[2022-08-31] MEDS: Normal Saline Flush 10 ML SYR IVP (08:21)
[2022-09-07 09:03] LABS: Anion Gap 4.9 mmol/L (3-11); BUN 6 mg/dL (7-18); CO2 34.1 mmol/L (21.0-32.0); CREATININE 1.1 mg/dL (0.55-1.02); Calcium 8.7 mg/dL (8.5-10.1); Chloride 106 mmol/L (98-107); Estimated GFR 60.46 (mL/min/1.73m2); Glucose 115 mg/dL (74-106); Potassium 3.3 mmol/L (3.5-5.1); Sodium 145 mmol/L (136-145)
[2022-09-07] MEDS: POTASSIUM CHLORIDE/0.9% NACL 1,000 ML 500 MEQ IV (10:25)
[2022-09-07] MEDS: Normal Saline Flush 10 ML SYR IVP (11:50)
== END 2022-09-08 23:59 | disposition home or self-care (01) ==
LOC: INF 08:30
PROVIDERS: PCP Student in an Organized Health Care Education/Training Program; Visit Provider Student in an Organized Health Care Education/Training Program
DX: R19.7 Diarrhea, unspecified (principal); E83.51 Hypocalcemia; E86.0 Dehydration
CPT/HCPCS: 36415; 80048; 96365; 96366; 84132

== ENCOUNTER 2022-09-28 02:45 | Outpatient (RCR) | payer MEDICARE, SELFPAY ==
[2022-09-09 00:03] VITALS: BP 115/79; PULSE 81; RESP 20; TEMP 36.7
[2022-09-14 08:25] LABS: Anion Gap 4.9 mmol/L (3-11); BUN 5 mg/dL (7-18); CO2 31.1 mmol/L (21.0-32.0); CREATININE 1.1 mg/dL (0.55-1.02); Calcium 8.9 mg/dL (8.5-10.1); Chloride 106 mmol/L (98-107); Estimated GFR 60.46 (mL/min/1.73m2); Glucose 109 mg/dL (74-106); Magnesium 1.8 mg/dL (1.8-2.4); Potassium 3.2 mmol/L (3.5-5.1); Sodium 142 mmol/L (136-145)
[2022-09-14] MEDS: POTASSIUM CHLORIDE/0.9% NACL 1,000 ML 500 MEQ IV (08:39)
[2022-09-14] MEDS: Normal Saline Flush 10 ML SYR IVP (08:43)
[2022-09-21 07:22] LABS: Anion Gap 6.5 mmol/L (3-11); BUN 7 mg/dL (7-18); CO2 30.5 mmol/L (21.0-32.0); CREATININE 1.1 mg/dL (0.55-1.02); Calcium 8.7 mg/dL (8.5-10.1); Chloride 105 mmol/L (98-107); Estimated GFR 60.46 (mL/min/1.73m2); Glucose 94 mg/dL (74-106); Magnesium 1.7 mg/dL (1.8-2.4); Potassium 3.3 mmol/L (3.5-5.1); Sodium 142 mmol/L (136-145)
[2022-09-21] MEDS: Normal Saline Flush 10 ML SYR IVP (07:28)
[2022-09-21] MEDS: POTASSIUM CHLORIDE/0.9% NACL 1,000 ML 250 MEQ IV (07:28)
[2022-09-28 08:15] LABS: BUN 8 mg/dL (7-18); CREATININE 1.1 mg/dL (0.55-1.02); Calcium 8.8 mg/dL (8.5-10.1); Chloride 106 mmol/L (98-107); Estimated GFR 60.46 (mL/min/1.73m2); Glucose 71 mg/dL (74-106); Magnesium 1.7 mg/dL (1.8-2.4); Potassium 3.6 mmol/L (3.5-5.1); Sodium 144 mmol/L (136-145)
[2022-09-28] MEDS: POTASSIUM CHLORIDE/0.9% NACL 1,000 ML 500 MEQ IV (08:19)
[2022-09-28] MEDS: Normal Saline Flush 10 ML SYR IVP (10:33)
== END 2022-10-08 23:59 | disposition home or self-care (01) ==
LOC: INF 02:45
PROVIDERS: PCP Student in an Organized Health Care Education/Training Program; Visit Provider Student in an Organized Health Care Education/Training Program
DX: N18.30 Chronic kidney disease, stage 3 unspecified (principal); E87.6 Hypokalemia; R19.7 Diarrhea, unspecified
CPT/HCPCS: 36415; 80048; 96365; 96366; 83735

== ENCOUNTER 2023-03-03 17:27 | Emergency (ER) | payer MEDICARE, SELFPAY ==
[2023-03-03] VITALS (34 sets, daily range): BP systolic 112–152; BP diastolic 61–87; PULSE 63–83; RESP 10–23; TEMP 36.8–38.6; O2SAT 91–99
--- NOTE | 2023-03-03 18:00 | DI.RAD_ITS ---
Exam(s) XR CHEST 2V PA LATERAL EXAM: XR CHEST 2V PA LATERAL CLINICAL HISTORY: cough TECHNIQUE: 2D digital imaging was performed of the chest. Two images were obtained. PA and lateral views were obtained. COMPARISON: CR XR PORTABLE CHEST AP from 08/21/2021 FINDINGS: MEDIASTINUM: Normal. HEART: Normal. PULMONARY VASCULATURE: Normal. LUNGS: The lungs are clear and hyperinflated. PLEURAL SPACE: No pleural effusion or pneumothorax. BONE:Within normal limits for the patient's age. OTHER FINDINGS:Normal. IMPRESSION: No focal consolidating infiltrates. DATA REPOSITORY: RADIATION DOSE DELIVERED:
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
[2023-03-03 18:26] LABS: COVID-19 PCR Negative (Negative); Influenza A PCR Negative (Negative); Influenza B PCR Negative (Negative); RSV PCR Negative (Negative)
[2023-03-03 18:28] LABS: Source Nasopharynx
[2023-03-03 18:41] LABS: Abs Immature Grans 0.03 10^3/uL (0.0-0.06); Absolute Basophil Count 0.05 10^3/uL (0.0-0.2); Absolute Eosinophil Count 0.24 10^3/uL (0.0-0.7); Absolute Monocyte Count 0.62 10^3/uL (0.1-0.8); Absolute Neutrophil Count 3.56 10^3/uL (1.2-6.7); Basophils % 0.8; HCT 35.4 % (36.0-46.0); Immature Grans % 0.5; MCH 31.4 pg (27.0-33.0); MCHC 33.9 % (32.0-36.0); MCV 93 fL (80-95); MPV 9.7 fL (8.0-11.0); Monocytes % 10.3; Neutrophils % 59.4; Platelet Count 191 10^3/uL (130-400); RBC 3.82 10^6/uL (3.93-5.22); RDW 12.5 % (11.7-14.6); RDW-SD 42.5 fL
[2023-03-03] MEDS: Lactated Ringers 500 ML 1000 ML IV (18:45)
[2023-03-03 18:57] LABS: ALT 14 U/L (14-59); AST 13 U/L (15-37); Albumin 3.2 g/dL (3.4-5.0); Alkaline Phosphatase 153 U/L (46-116); Anion Gap 5.7 mmol/L (3-11); BUN 6 mg/dL (7-18); Bilirubin, Total 0.3 mg/dL (0.2-1.0); CO2 30.3 mmol/L (21.0-32.0); CREATININE 1.1 mg/dL (0.55-1.02); Calcium 8.7 mg/dL (8.5-10.1); Chloride 105 mmol/L (98-107); Estimated GFR 60.46 (mL/min/1.73m2); Glucose 92 mg/dL (74-106); Magnesium 1.7 mg/dL (1.8-2.4); Sodium 141 mmol/L (136-145); Total Protein 6.6 g/dL (6.4-8.2)
[2023-03-03 18:58] LABS: Potassium 2.9 mmol/L (3.5-5.1)
[2023-03-03] MEDS: Doxycycline Hyclate 100 MG CAP PO (19:02)
[2023-03-03] MEDS: Amoxicillin 875/Clav. 125 TAB PO (19:02)
--- NOTE | 2023-03-03 19:05 | DI.VRAD_ITS ---
PROCEDURE INFORMATION: Exam: XR Chest Exam date and time: 03/03/2023 18:39 Age: 52 years old Clinical indication: Cough TECHNIQUE: Imaging protocol: Radiologic exam of the chest. Views: 2 views. COMPARISON: CT CHEST PE CTA 07/15/2022 15:51 FINDINGS: Lungs: Mild hyperinflation without airspace consolidation. No significant interstitial disease for the degree of inflation. Pleural spaces: No pleural effusion. No pneumothorax. Heart/Mediastinum: No cardiomegaly. Bones/joints: No acute fracture. IMPRESSION: Mild hyperinflation without airspace consolidation. Dictated and Authenticated by: Chrissie Slater MD. Ordering:SACHIN Ordonez MD
[2023-03-03] MEDS: MAGNESIUM SULFATE 1 GM/100 ML BAG IVPB (19:22)
--- NOTE | 2023-03-03 20:16 | W.EDPROG ---
Date of service: 03/03/23 Time of Service: 20:16 Medical Decision Making I received signout on this 52-year-old female who is mildly hypomagnesemic and hypokalemic for which she is receiving IV and oral repletion. She was found to have a pneumonia for which she will be sent home with amoxicillin clavulanic acid and doxycycline. She did have a fever on repeat vitals in the emergency department. We will treat with acetaminophen and ibuprofen. 9:15 PM I met with the patient and she was feeling improved. Will discharge with instructions as written by her original provider. She has outpatient PCP follow-up on Tuesday next week. Likely her chronic diarrhea has led to her hypomagnesemia and hypokalemia. Sign Out Sign Out Data: Sign Out Comment: Patient is here with hoarse voice and productive cough over the past 2 days. She is now febrile. Chest x-ray concerning for right middle lobe opacity. I have initiated treatment with Augmentin and doxycycline given comorbidities. Patient has chronic diarrhea. She is found to be hypokalemic and hypomagnesemia. Plan: patient to complete magnesium and potassium replacement. Reassess patient for likely discharge with outpatient follow-up. Last updated by José Luis Yin MD at 03/03/23 19:29 Discharge Plan Disposition Patient Disposition: Home Condition: Stable Discharge Details Clinical Impression: Laryngitis, Pneumonia, Hypokalemia, Hypomagnesemia Primary Care Provider: Belkys Bundy ED Provider: Dario Waters Home Meds and New Rx's Prescriptions: New amoxicillin-pot clavulanate 875-125 mg tablet 1 tab PO BID Qty: 9 0RF doxycycline hyclate 100 mg tablet 100 mg PO BID Qty: 9 0RF Continued (DME) Aerochamber MV Spacer See Rx Instructions .ROUTE .MEDSUPPLY Qty: 1 0RF Rx Instructions: As directed guaifenesin 600 mg tablet extended release 12hr 600 mg PO Q12H PRN (Reason: congestion; thick phlegm) Qty: 20 1RF Rx Instructions: Trial for expectoration of stuck phlegm albuterol sulfate [Ventolin HFA] 90 mcg/actuation HFA aerosol inhaler 2 puff IH Q6H PRN (Reason: bronchospasm) Qty: 8.5 12RF ipratropium-albuterol 0.5 mg-3 mg(2.5 mg base)/3 mL solution for nebulization 3 ml IH QID PRN (Reason: shortness of breath or wheezing) Qty: 360 1RF Linzess 72 mcg capsule 72 mcg PO DAILY [place] [facility] [place] dicyclomine 20 mg tablet 20 mg PO BID [place] Comments[place] [facility] [place] docusate sodium [Colace] 100 mg capsule 100 mg PO TID PRN [place] Comments[place] [facility] [place] fluconazole 150 mg tablet 150 mg PO Q3D Qty: 2 1RF Rx Instructions: may repeat second dose 72 hrs after first dose if symptoms persist ibuprofen 800 mg tablet 800 mg PO BID PRN (Reason: pain) Qty: 60 1RF Hold Instructions: Resume on 09/01/21. hold while taking prednisone (taking both simultaneously may lead to ulcers) Rx Instructions: Take with FOOD! cetirizine [Zyrtec] 10 mg tablet 10 mg PO DAILY Qty: 90 3RF Rx Instructions: 04/25/20 [facility] [place] pulmonology fluticasone propionate 50 mcg/actuation spray,suspension 2 spray intranasal DAILY Qty: 16 0RF Rx Instructions: administer into each nostril (DME) Oxygen Tank See Rx Instructions .ROUTE .MEDSUPPLY Qty: 1 Rx Instructions: 2LPM at rest and qHS/3 LPM continuous with activity/3 pulse at rest/4-5 pulse with activity on POC bupropion HCl [Wellbutrin SR] 150 mg tablet sustained-release 12 hr 150 mg PO BID Qty: 180 3RF citalopram [Celexa] 40 mg tablet 40 mg PO DAILY Qty: 90 3RF trazodone 100 mg tablet 200 mg PO QHS PRN (Reason: insomnia) Qty: 180 3RF Myrbetriq 25 mg tablet extended release 24 hr 25 mg PO DAILY Qty: 90 3RF levothyroxine 100 mcg tablet 100 mcg PO DAILY Qty: 90 3RF Rx Instructions: INCREASE per 05/2020 labs omeprazole 40 mg capsule,delayed release(DR/EC) 40 mg PO DAILY Qty: 90 3RF Trelegy Ellipta 200-62.5-25 mcg blister with device 1 inh inhalation DAILY Rx Instructions: 04/25/20 [facility] [place]monary prescribes 07/27/[place] [place] rf's. CHRISTI PRUETT MD;[facility] [place] psyllium husk [Fiber-Caps (psyllium husk)] 0.52 gram capsule 0.52 g PO DAILY Qty: 90 1RF Rx Instructions: Trial for bowel consistency & regulation atorvastatin [Lipitor] 20 mg tablet 20 mg PO QHS Qty: 90 3RF benzonatate 100 mg capsule 100 mg PO QID PRN (Reason: cough) Qty: 60 1RF diltiazem HCl [Cardizem] 30 mg tablet 60 mg PO HS Qty: 180 3RF montelukast [Singulair] 10 mg tablet 10 mg PO DAILY Qty: 90 3RF morphine 15 mg tablet 15 mg PO DIRECTED No Action cyclobenzaprine 10 mg tablet 10 mg PO TID PRN PRN (Reason: muscle spasm pain ) Qty: 30 1RF Discharge Instructions Instructions: Laryngitis (ED), Hypokalemia (ED), Hypomagnesemia (ED), Pneumonia (ED) Additional Instructions: Please take full course of antibiotic as prescribed. Please contact your primary care physician to arrange follow-up. Call tomorrow. Return to the ER immediately for any worsening or new concerning symptoms. Referrals: Blekys Bundy DO [Primary Care Provider] -
[2023-03-03] MEDS: Acetaminophen 500 MG TAB 1000 MG PO (20:26)
[2023-03-03] MEDS: Potassium Chloride 20 MEQ TABCR PO (20:26)
[2023-03-03] MEDS: Ibuprofen 600 MG TAB PO (20:26)
[2023-03-03] MEDS: POTASSIUM CHLORIDE 20 MEQ/100 ML BAG 50 MEQ IVPB (20:26)
== END 2023-03-03 22:30 | disposition home or self-care (01) ==
PROVIDERS: Student in an Organized Health Care Education/Training Program; Emergency Provider Emergency Medicine; PCP Student in an Organized Health Care Education/Training Program
DX: J18.9 Pneumonia, unspecified organism (principal); J04.0 Acute laryngitis; J44.9 Chronic obstructive pulmonary disease, unspecified; R19.7 Diarrhea, unspecified; N18.30 Chronic kidney disease, stage 3 unspecified; E83.42 Hypomagnesemia; E87.6 Hypokalemia
CPT/HCPCS: 00123; 80053; 87426; 87637; 96365; 96366; 96367; 99284; 71046; 83735; 85025; J3475; J3480

== ENCOUNTER → 2023-03-30 02:29 | Outpatient (CLI) | payer MEDICARE, SELFPAY | PROVIDERS: PCP Student in an Organized Health Care Education/Training Program; Visit Provider Student in an Organized Health Care Education/Training Program | DX: Z12.31 Encounter for screening mammogram for malignant neoplasm of breast (principal) | CPT/HCPCS: 77063; 77067 ==

== ENCOUNTER 2023-03-31 08:13 | Outpatient (RCR) | payer MEDICARE, SELFPAY ==
--- NOTE | 2023-03-31 08:15 | HOLTER_ITS ---
APPROVED REPORT Exam Type: HOLTER MONITOR APPLICATION Reason for Test: evaluate rhythm, Hx pause Patient Location: O Conclusion 1. Normal sinus rhythm throughout, rate range 60-122 2. No arrythmias detected.
== END 2023-04-10 23:59 | disposition home or self-care (01) ==
LOC: CARDOPNVT 08:13
PROVIDERS: PCP Student in an Organized Health Care Education/Training Program; Visit Provider Student in an Organized Health Care Education/Training Program
DX: R55 Syncope and collapse (principal); R00.0 Tachycardia, unspecified; Z91.89 Other specified personal risk factors, not elsewhere classified
CPT/HCPCS: 93227; 93225; 93226

== ENCOUNTER 2023-04-14 10:21 | Outpatient (CLI) | payer MEDICARE, SELFPAY ==
[2023-04-14 09:12] LABS: HGB 13.4 g/dL (11.2-15.7)
[2023-04-14 09:42] LABS: Anion Gap 4.9 mmol/L (3-11); BUN 7 mg/dL (7-18); CO2 35.1 mmol/L (21.0-32.0); CREATININE 1.1 mg/dL (0.55-1.02); Calcium 9.1 mg/dL (8.5-10.1); Chloride 104 mmol/L (98-107); Estimated GFR 60.46 (mL/min/1.73m2); Glucose 82 mg/dL (74-106); Magnesium 1.9 mg/dL (1.8-2.4); Sodium 144 mmol/L (136-145)
[2023-04-14 10:08] LABS: Potassium 2.8 mmol/L (3.5-5.1)
== END 2023-04-14 10:22 | disposition home or self-care (01) ==
LOC: LBO 10:22
PROVIDERS: PCP Student in an Organized Health Care Education/Training Program; Visit Provider Student in an Organized Health Care Education/Training Program
DX: E87.8 Other disorders of electrolyte and fluid balance, not elsewhere classified (principal); Z91.89 Other specified personal risk factors, not elsewhere classified; D64.9 Anemia, unspecified; E86.0 Dehydration; E87.6 Hypokalemia
CPT/HCPCS: 36415; 80048; 83735; 85018

== ENCOUNTER 2023-04-14 12:10 | Emergency (ER) | payer MEDICARE, SELFPAY ==
[2023-04-14] VITALS (14 sets, daily range): BP systolic 107–148; BP diastolic 78–93; PULSE 67–94; RESP 14–25; TEMP 36.1–36.5; O2SAT 93–96
--- NOTE | 2023-04-14 12:30 | RT.EKG_ITS ---
APPROVED REPORT Exam: Resting ECG Reason for Exam: hypokalemia Patient Location: E HR:65 bpm ECG Measurements Heart Rate 65 AXIS WY 219 P 83 QRSd 78 QRS 90 QT 512 T 145 QTc 533 Conclusion Sinus rhythm...normal P axis, V-rate 60- 99 Prolonged WY interval...WY >210, V-rate 50- 90 Anteroseptal infarct, age indeterminate...Q >35mS, T neg, V1-V2 Prolonged QT interval...QTc >510mS Narrow complex normal sinus rhythm at a rate of 65. Normal axis. First-degree AV block and prolonge d QTc at 533 ms. WY 219 ms. No prior for comparison. No acute injury pattern.
[2023-04-14] MEDS: Potassium Chloride Liquid 20 MEQ PKT 40 MEQ PO (12:54)
[2023-04-14] MEDS: Magnesium Oxide 400 MG TAB 800 MG PO (12:54)
[2023-04-14 13:00] LABS: BE (Venous) 8 mmol/L (-2-3); HCO3 (Venous) 34 mmol/L (23-28); O2 Sat (Venous) 61 %; TCO2 (Venous) 31 mmol/L (24-29); pH (Venous) 7.34 (7.31-7.41); pO2 (Venous) 33 mmHg
[2023-04-14 13:03] LABS: pCO2 (Venous) 62 mmHg (41-51)
[2023-04-14 13:13] LABS: Anion Gap 6.6 mmol/L (3-11); BUN 6 mg/dL (7-18); CO2 33.4 mmol/L (21.0-32.0); Calcium 8.9 mg/dL (8.5-10.1); Chloride 104 mmol/L (98-107); Estimated GFR 67.78 (mL/min/1.73m2); Glucose 93 mg/dL (74-106); Sodium 144 mmol/L (136-145)
[2023-04-14 13:14] LABS: Potassium 2.9 mmol/L (3.5-5.1)
--- NOTE | 2023-04-14 15:00 | RT.EKG_ITS ---
APPROVED REPORT Exam: Resting ECG Reason for Exam: QTC PROLONGATION Patient Location: E HR:63 bpm ECG Measurements Heart Rate [address] 223 P 66 QRSd 87 QRS 89 QT 514 T 233 QTc 524 Conclusion Sinus rhythm...normal P axis, V-rate 60- [address] interval...CT >210, V-rate 50- 90 Nonspecific T abnormalities, diffuse leads...T <-0.10mV, ant/lat/inf Prolonged QT interval...QTc >510mS Narrow complex normal sinus rhythm at a rate of 63. Normal axis. First-degree AV block CT interval 223. Prolonged QTc at 524 ms slightly improved. To prior dated earlier today. No acute injury joss yovana. No ST segment abnormalities. Poor R wave progression similar to prior.
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
== END 2023-04-14 16:12 | disposition home or self-care (01) ==
PROVIDERS: Emergency Provider Physician Assistant; PCP Student in an Organized Health Care Education/Training Program
DX: E87.6 Hypokalemia (principal); J44.9 Chronic obstructive pulmonary disease, unspecified; E78.5 Hyperlipidemia, unspecified; N18.30 Chronic kidney disease, stage 3 unspecified; Z99.81 Dependence on supplemental oxygen; R94.31 Abnormal electrocardiogram [ECG] [EKG]; I44.0 Atrioventricular block, first degree; E83.42 Hypomagnesemia; B02.9 Zoster without complications; Z87.891 Personal history of nicotine dependence
CPT/HCPCS: 36415; 80048; 82805; 93005; 99284; 83735; 85018; 93010

== ENCOUNTER 2023-04-15 09:44 | Outpatient (CLI) | payer MEDICARE, SELFPAY ==
--- NOTE | 2023-04-15 09:30 | RT.EKG_ITS ---
APPROVED REPORT Exam: Resting ECG Reason for Exam: ED f/u Long QT omterval Patient Location: O HR:62 bpm ECG Measurements Heart Rate 62 AXIS RI 201 P 76 QRSd 64 QRS 89 QT 481 T 205 QTc 489 Conclusion Sinus rhythm...normal P axis, V-rate 50- 99 Low voltage with right axis deviation...low voltage, RAD Nonspecific T abnormalities, lateral leads...T <-0.10mV, I aVL V5 V6 ST elevation, consider inferior injury...ST >0.08mV, II III aVF NONSPECIFIC ST-T CHANGES I have reviewed and interpreted ECG and agree with software generated interpretation.
== END 2023-04-15 09:45 | disposition home or self-care (01) ==
LOC: DI.KIM 09:44
PROVIDERS: PCP Student in an Organized Health Care Education/Training Program; Visit Provider Student in an Organized Health Care Education/Training Program
DX: R94.31 Abnormal electrocardiogram [ECG] [EKG] (principal)
CPT/HCPCS: 93010

== ENCOUNTER 2023-04-15 11:47 | Outpatient (REF) | payer MEDICARE, SELFPAY | END 2023-04-15 11:48 | disposition home or self-care (01) | LOC: LBN 11:47 | PROVIDERS: PCP Student in an Organized Health Care Education/Training Program; Visit Provider Student in an Organized Health Care Education/Training Program | DX: R33.8 Other retention of urine (principal); R82.998 Other abnormal findings in urine | CPT/HCPCS: 87086 ==

== ENCOUNTER → 2023-06-10 01:01 | Outpatient (CLI) | payer MEDICARE, SELFPAY ==
--- NOTE | 2023-06-10 14:50 | DI.RAD_ITS ---
Exam(s) XR RIBS RT W PA LAT CHEST CLINICAL HISTORY: eval rib fx; costochondr inflamm,COUGH,RT RIB PAIN,PREOP. COMPARISON: CR,XR XR CHEST 2V PA LATERAL from 03/03/2023 TECHNIQUE:: PA and lateral views of the chest and four views of the right ribs were performed. FINDINGS: LUNGS:Hyperinflated but clear. No pleural abnormality seen. HEART: Normal. MEDIASTINUM: Normal. BONES: No displaced rib fracture is seen. No bony destructive lesion is seen. No thoracic compressio n fractures. OTHER FINDINGS: None. IMPRESSION: 1. Unremarkable radiographic appearance of the right ribs. 2. No acute pulmonary findings.
== END ==
PROVIDERS: PCP Student in an Organized Health Care Education/Training Program; Visit Provider Student in an Organized Health Care Education/Training Program
DX: Z01.818 Encounter for other preprocedural examination; Z12.11 Encounter for screening for malignant neoplasm of colon; Z12.12 Encounter for screening for malignant neoplasm of rectum; Z91.89 Other specified personal risk factors, not elsewhere classified
CPT/HCPCS: 71046; 71100

== ENCOUNTER → 2023-06-23 01:58 | Outpatient (CLI) | payer MEDICARE, SELFPAY ==
--- NOTE | 2023-06-23 | DI.DEXA_ITS ---
Exam(s) XR DEXA BONE DENSITY W/WO JULEE EXAM: XR DEXA BONE DENSITY W/WO JULEE CLINICAL HISTORY: eval bone density,screening for osteoporosis in postmenopausal woman,z78.0 TECHNIQUE: Routine DEXA evaluation of the lumbar spine, hip, or forearm. COMPARISON: No exams were available for comparison FINDINGS: Performed on a Hologic unit. Lateral image: No compression fracture evident. Lumbar Spine total T-score: -0.7 Hip total T-score:-1.7 Independent reading at the level of the femoral neck yields T-score of -2.1 Forearm total T-score: -1.0 IMPRESSION: Bone mineral density measures in the osteopenia range. Fracture risk is moderate. Note: Any spine fracture indicates 5x risk for subsequent spine fracture and 2x risk for subsequent h ip fracture. World Health Organization criteria for BMD interpretation classify patients: Normal...... T- Score at or above -1.0 Osteopenic... T- Score between -1.0 and -2.5 Osteoporosis... T-Score at or below -2.5
== END ==
PROVIDERS: PCP Student in an Organized Health Care Education/Training Program; Visit Provider Student in an Organized Health Care Education/Training Program
DX: Z13.820 Encounter for screening for osteoporosis (principal); M85.89 Other specified disorders of bone density and structure, multiple sites; Z78.0 Asymptomatic menopausal state
CPT/HCPCS: 77080

== ENCOUNTER 2023-09-01 09:51 | Outpatient (CLI) | payer MEDICARE, SELFPAY ==
--- NOTE | 2023-09-01 09:45 | RT.EKG_ITS ---
APPROVED REPORT Exam: Resting ECG Reason for Exam: palpatations QTC Patient Location: O HR:88 bpm ECG Measurements Heart Rate 88 AXIS AK 214 P 67 QRSd 99 QRS 46 QT 447 T -74 QTc 541 Conclusion Sinus rhythm...normal P axis, V-rate 50- 99 Prolonged AK interval...AK >210, V-rate 50- 90 Poor R wave progression Artifact confounds interpretation of ST-T abnormalities
== END 2023-09-01 09:52 | disposition home or self-care (01) ==
LOC: DI.KIM 09:52
PROVIDERS: PCP Student in an Organized Health Care Education/Training Program; Visit Provider Student in an Organized Health Care Education/Training Program
DX: R00.2 Palpitations (principal)
CPT/HCPCS: 93010

== ENCOUNTER 2023-09-01 10:27 | Outpatient (REF) | payer MEDICARE, SELFPAY ==
[2023-09-01 16:33] LABS: ALT 16 U/L (14-59); AST 11 U/L (15-37); Albumin 3.6 g/dL (3.4-5.0); Alkaline Phosphatase 210 U/L (46-116); Anion Gap 2.8 mmol/L (3-11); BUN 7 mg/dL (7-18); Bilirubin, Total 0.3 mg/dL (0.2-1.0); CO2 31.2 mmol/L (21.0-32.0); CREATININE 0.9 mg/dL (0.55-1.02); Calcium 9.1 mg/dL (8.5-10.1); Chloride 104 mmol/L (98-107); Estimated GFR 76.92 (mL/min/1.73m2); Glucose 79 mg/dL (74-106); Potassium 3.2 mmol/L (3.5-5.1); Sodium 138 mmol/L (136-145); TSH 3.73 uIU/Ml (0.36-3.74); Total Protein 6.8 g/dL (6.4-8.2)
== END 2023-09-01 10:28 | disposition home or self-care (01) ==
LOC: LBN 10:27
PROVIDERS: PCP Student in an Organized Health Care Education/Training Program; Visit Provider Student in an Organized Health Care Education/Training Program
DX: R00.2 Palpitations (principal); R94.31 Abnormal electrocardiogram [ECG] [EKG]; E87.8 Other disorders of electrolyte and fluid balance, not elsewhere classified
CPT/HCPCS: 80053; 84443

== ENCOUNTER 2023-09-02 08:43 | Outpatient (RCR) | payer MEDICARE, SELFPAY ==
[2023-09-02] MEDS: Normal Saline 1,000 ML 75 ML IV (10:02)
[2023-09-02] MEDS: POTASSIUM CHLORIDE 10 MEQ/100 ML BAG 100 MEQ IVINF ×3 (10:03→12:04)
[2023-09-02] MEDS: Normal Saline Flush 10 ML SYR IVP (13:10)
[2023-09-02 14:04] LABS: Anion Gap 7.3 mmol/L (3-11); BUN 6 mg/dL (7-18); CO2 30.7 mmol/L (21.0-32.0); CREATININE 0.9 mg/dL (0.55-1.02); Calcium 8.5 mg/dL (8.5-10.1); Chloride 104 mmol/L (98-107); Estimated GFR 76.92 (mL/min/1.73m2); Glucose 91 mg/dL (74-106); Sodium 142 mmol/L (136-145)
[2023-09-02 18:14] LABS: Lab Add On Test DONE
[2023-09-02 18:27] LABS: Magnesium 1.6 mg/dL (1.8-2.4)
== END 2023-09-09 23:59 | disposition home or self-care (01) ==
LOC: INF 08:43
PROVIDERS: PCP Student in an Organized Health Care Education/Training Program; Visit Provider Student in an Organized Health Care Education/Training Program
DX: E87.6 Hypokalemia (principal)
CPT/HCPCS: 80048; 96365; 96366; 83735; J3480

== ENCOUNTER 2023-09-06 10:15 | Outpatient (CLI) | payer MEDICARE, SELFPAY ==
[2023-09-06 08:30] LABS: HGB 13.1 g/dL (11.2-15.7)
[2023-09-06 09:25] LABS: Anion Gap 3.3 mmol/L (3-11); BUN 7 mg/dL (7-18); CO2 31.7 mmol/L (21.0-32.0); Calcium 8.8 mg/dL (8.5-10.1); Calculated LDL 77 mg/dL (<100); Chloride 104 mmol/L (98-107); Cholesterol 166 mg/dL (<200); Estimated GFR 67.36 (mL/min/1.73m2); Glucose 85 mg/dL (74-106); HDL Cholesterol 72 mg/dL (40-60); Magnesium 1.4 mg/dL (1.8-2.4); Sodium 139 mmol/L (136-145); Triglyceride 89 mg/dL (<150)
[2023-09-06 09:29] LABS: Potassium 2.9 mmol/L (3.5-5.1)
== END 2023-09-06 10:16 | disposition home or self-care (01) ==
LOC: LBO 10:21
PROVIDERS: PCP Student in an Organized Health Care Education/Training Program; Visit Provider Student in an Organized Health Care Education/Training Program
DX: Z13.6 Encounter for screening for cardiovascular disorders (principal); E87.6 Hypokalemia; R19.7 Diarrhea, unspecified; Z91.89 Other specified personal risk factors, not elsewhere classified; Z86.2 Personal history of diseases of the blood and blood-forming organs and certain disorders involving the immune mechanism; Z13.220 Encounter for screening for lipoid disorders
CPT/HCPCS: 36415; 80048; 80061; 82306; 83735; 85018

== ENCOUNTER 2023-10-05 01:41 | Outpatient (CLI) | payer MEDICARE, SELFPAY ==
[2023-10-05 10:56] LABS: Anion Gap 7.8 mmol/L (3-11); BUN 9 mg/dL (7-18); CO2 31.2 mmol/L (21.0-32.0); CREATININE 0.9 mg/dL (0.55-1.02); Calcium 9.4 mg/dL (8.5-10.1); Chloride 104 mmol/L (98-107); Estimated GFR 76.44 (mL/min/1.73m2); Glucose 85 mg/dL (74-106); Magnesium 1.8 mg/dL (1.8-2.4); Potassium 3.6 mmol/L (3.5-5.1); Sodium 143 mmol/L (136-145); Vitamin D 25 Total 30.5 ng/mL (30-100)
[2023-10-06 11:16] LABS: Measles IgG Antibody Positive (See Note); Mumps Antibody IgG Positive (See Note); Rubella IgG Ab (UVM) Positive (See Note)
== END 2023-10-05 01:42 | disposition home or self-care (01) ==
LOC: LBO 01:41
PROVIDERS: PCP Student in an Organized Health Care Education/Training Program; Referring Provider Student in an Organized Health Care Education/Training Program; Visit Provider Student in an Organized Health Care Education/Training Program
DX: Z01.818 Encounter for other preprocedural examination (principal); Z78.0 Asymptomatic menopausal state; M89.8X9 Other specified disorders of bone, unspecified site; E87.6 Hypokalemia; Z91.89 Other specified personal risk factors, not elsewhere classified
CPT/HCPCS: 36415; 80048; 82306; 83735; 86735; 86762; 86765

== ENCOUNTER 2023-10-10 08:46 | Outpatient (CLI) | payer MEDICARE, SELFPAY ==
[2023-10-12 10:28] LABS: Cotinine <3.0 ng/mL (<3.0); Nicotine <3.0 ng/mL (<3.0)
== END 2023-10-10 08:47 | disposition home or self-care (01) ==
LOC: LBO 08:46
PROVIDERS: PCP Student in an Organized Health Care Education/Training Program; Visit Provider Nurse Practitioner Adult Health
DX: Z01.818 Encounter for other preprocedural examination (principal)
CPT/HCPCS: 36415; 80323

== ENCOUNTER 2023-11-01 14:53 | Outpatient (CLI) | payer MEDICARE, SELFPAY ==
--- NOTE | 2023-11-01 14:45 | RT.EKG_ITS ---
APPROVED REPORT Exam: Resting ECG Reason for Exam: eval QT post Trazadone re-start Patient Location: O HR:76 bpm ECG Measurements Heart Rate 76 AXIS HI 208 P 80 QRSd 89 QRS 72 QT 477 T [id number] QTc 537 Conclusion Sinus rhythm...normal P axis, V-rate 50- 99 Borderline prolonged HI interval...HI >202, Abnormal R-wave progression, late transition...QRS area<0 in V5/V6 Right atrial abnormality Prolonged QT interval...QTc >510mS
== END 2023-11-01 14:54 | disposition home or self-care (01) ==
LOC: DI.KIM 15:50
PROVIDERS: PCP Student in an Organized Health Care Education/Training Program; Visit Provider Student in an Organized Health Care Education/Training Program
DX: R94.31 Abnormal electrocardiogram [ECG] [EKG] (principal); I51.7 Cardiomegaly; Z76.82 Awaiting organ transplant status; J44.9 Chronic obstructive pulmonary disease, unspecified; Z99.81 Dependence on supplemental oxygen
CPT/HCPCS: 93010

== ENCOUNTER 2024-03-29 08:09 | Outpatient (CLI) | payer MEDICARE, SELFPAY ==
[2024-03-29 07:36] LABS: Anion Gap 12.5 mmol/L (3-11); BUN 21 mg/dL (7-18); CO2 22.5 mmol/L (21.0-32.0); CREATININE 1.6 mg/dL (0.55-1.02); Calcium 8.9 mg/dL (8.5-10.1); Chloride 102 mmol/L (98-107); Estimated GFR 38.33 (mL/min/1.73m2); Glucose 86 mg/dL (74-106); Magnesium 1.2 mg/dL (1.8-2.4); PHOSPHORUS 3.5 mg/dL (2.6-4.7); Potassium 3.8 mmol/L (3.5-5.1); Sodium 137 mmol/L (136-145)
--- OUTSIDE RECORDS SUMMARY | 2024-03-29 08:12 | XMS_ITS | Encounter Summary ---
Author Organization [facility] [place] [address] Care Team Providers Care Social Work Therapist Name Role Phone Belkys Bundy Virginie MYRICK Primary Care Provider [phone]- [phone] Reason for Referral * Consultation (Routine) - Closed Specialty Diagnoses / Procedures Referred By Rossy t Referred To Contact Diagnoses COPD, very severe Kira Thayer MD [facility] PULMONARY MEDICINE [place] [phone] Referral ID Status Reason Start Date Expiration Date V isits Requested Visits Authorized [id number] Closed Consult, Test & Treat 11/25/2022 05/24/2023 1 1 Encounter Details Date Type Department Care Team (Late st Contact Info) Description 11/22/2022 9:00 AM EDT Office [place] [address] Kira Thayer MD [facility] [place] [address] COPD, very severe; Tobacco use; Supplemental oxygen dependent; Hypercarbia Social History Tobacco Use Types Packs/Day Years Used Date Smoking Tobacco: Every Day Cigarettes 0.5 15 Smokeless Tobacco: Never Tobacco Cessation:Ready to Q uit: Not Asked; Counseling Given: Not Answered Comments:When smoking averaged 2 packs a day Alcohol Use Standard Drinks/Week Comments Yes 0 (1 standard drink = 0.6 oz pure alcohol) rare drink, one drink every few months Sex and Gender Information Value Date Recorded Sex Assigned at Female 06/09/2020 12:20 PM EST Gender Identity Not on file Sexual Orientation Straight 06/09/2020 12 :20 PM EST documented as of this encounter Last Filed Vital Signs Vital Sign Reading Time Taken Comments Blood Pressure 111/77 11/22/2022 8:36 AM EDT Pulse 80 11/22/2022 8:36 AM EDT Temperature 36.1 ??C (96.9 ??F) 11/22/2022 8:36 AM ED T Respiratory Rate 20 11/22/2022 8:36 AM EDT Oxygen Saturation 96% 11/22/2022 8:36 AM EDT Inhaled Oxygen Concentration - - Weight 70.4 kg (155 lb 3.2 oz) 11/22/2022 8:36 A M EDT Height 166.1 cm (5' 5.39) 11/22/2022 8:36 AM ED T Body Mass Index 25.52 11/22/2022 8:36 AM EDT documented in this encounter Patient Instructions * Patient Instructions* Kira Thayer MD - 11/22/2022 9:00 AM EDT Lab today to get the ABG to look carbon dioxide. Overnight oxygen testing at home, to be done on 2L NC oxygen. If these tests confirm that you have too little ventilation at night, then we would prescribe BiPAPto help you breath better at night. If your breathing gets harder this week with more mucous, you can take the prednisone again (20 mg a day, try for 5 days at a time), do more of the flutter valve to clear the mucous, and if that's not effective then we can also add azithromycin for 5 days. documented in this encounter Progress Notes * Kira Thayer MD - 11/22/2022 9:00 AM EDT Images from the original note were not included. [facility] Section of Pulmonary and Critical Care Medicine Outpatient Consultation Date of Encounter: 11/22/2022 Reason for Evaluation: Ms. Jessie Sanchez returns to the pulmonary clinic for follow-up of COPD and chronic oxygen dependence. I independently interviewed the patient, have examined the patient if this visit was conducted in the office and have reviewed available records. Dear Dr. Belkys Bundy, DO, As you know, Jessie Sanchez is a 52 y.o. female with emphysema and severe COPD with oxygen-dependence,allergies, and obesity, who was last seen in pulmonary clinic in October 2022. Mrs. Sanchez reports she feels pretty good today. She feels better than she did in October, but has a hard time describing exactly what changed. Her chronic exertional dyspnea is a little better today than over the past month. Fatigue is better. At baseline she is able to walk short distances around her house and the grocery store. Uses wheelchair for longer distances. She does wonder if she has a small sinus cold right now - has some increase in sputum production, some sinus congestion, cold sweats but no fever over the past couple days, though she describes this as relatively mild. She denies chest pain, much wheezing, any chest tightness. She has no hemoptysis. Denies GERD. She is trying to start exercising, walking more. She has decided to quit smoking today; started nicotine patch today. Previously was smoking 1 ppd. She thinks she only took a couple days of prednisone 20 mg after her last visit, she is worried about becoming dependent on it so curtailed the planned extended course. She thinks it helped acute dyspnea a little though. Remains on trelegy daily, she is doing albuterol albuterol MDI primarily in the morning before she takes her trelegy, occasionally PRN later in the day. Has been using home O2 consistently with activity and at night; 3L at rest, 3 pulse with activity. Zyrtec and singulair generally working well for allergic rhinitis. As you will recall, did not feel morphine PRN for dyspnea was helpful (made her feel out of it.) Current Medications at Start of Encounter: Outpatient Medications Prior to Visit Medication Sig Dispense Refill nicotine (Nicoderm CQ) 21 mg/24 hr Patch 24 hr Change 1 patch on the skin daily. 28 patch 5 wiykvcgirzu-nzpljmtvppot-noizkeqezx (Trelegy Ellipta) 200-62.5-25 mcg Inhale 1 puff into the lungs daily. 28 each 11 predniSONE (Deltasone) 20 mg tablet TAKE TWO TABLETS BY MOUTH EVERY DAY NEEDED FOR COPD EXACERBATION; ALERT RN TRANSITIONAL AND PCP inhalational spacing device (Ricci Aerosol [place] Enhancer) Spacer .MEDSUPPLY levothyroxine (Synthroid) 100 mcg Tablet Take 100 mcg by mouth nightly. linaCLOtide (Linzess) 72 mcg Capsule Take 72 mcg by mouth as needed. Take 30 minutes before meal albuteroL 90 mcg/actuation HFA Aerosol Inhaler Inhale 2 puffs into the lungs every 4 hours as needed for Wheezing or Shortness of Breath. Use with spacer 36 g 5 benzonatate (TESSALON) 200 mg Capsule Take 1 capsule by mouth 3 times daily as needed for Cough. 30capsule 1 montelukast (Singulair) 10 mg Tablet Take 1 tablet by mouth nightly. 30 tablet 11 fluticasone propionate (FLONASE) 50 mcg/actuation [place], Suspension atorvastatin (Lipitor) 20 mg Tablet cyclobenzaprine (Flexeril) 10 mg Tablet Take 10 mg by mouth as needed. dicyclomine (BENTYL) 20 mg Tablet TAKE 1 TABLET BY MOUTH TWICE A DAY IF NEEDED FOR STOMACH UPPSET cetirizine (ZyrTEC) 10 mg Tablet Take 10 mg by mouth daily. ipratropium-albuteroL (DUONEB) 0.5 mg-3 mg(2.5 mg base)/3 mL Solution for Nebulization USE 1 VIAL VIA NEBULIZER 4 TIMES A DAY NEEDED FOR SHORTNESS OF BREATH/ WHEEZING citalopram (CELEXA) 40 mg Tablet Take 40 mg by mouth every morning. mirabegron (MYRBETRIQ ORAL) Take 20 mg by mouth daily. traZODone (DESYREL) 100 mg Tablet Take 200 mg by mouth nightly. omeprazole (PRILOSEC) 20 mg Capsule, Delayed Release(E.C.) Take 20 mg by mouth daily as needed. docusate sodium (COLACE) 100 mg Capsule Take 100 mg by mouth 3 times daily as needed for Constipation. buPROPion (WELLBUTRIN SR) 150 mg Tablet Sustained Release Take 150 mg by mouth 2 times daily. IBUPROFEN ORAL DILTiazem (CARDIZEM) 30 mg tablet potassium chloride (KLOR-CON) 20 mEq Packet Take 20 mEq by mouth 2 times daily. morphine IR (MSIR) 15 mg Tablet citalopram (CELEXA) 20 mg Tablet Take 20 mg by mouth nightly. No facility-administered medications prior to visit. Review of Systems: A focused ROS was completed and was positive as noted in HPI, and otherwise negative. Physical Examination: BP 111/77 Pulse 80 Temp 36.1 ??C (96.9 ??F) (Temporal) Resp 20 Ht 166.1 cm (5' 5.39) Wt 70.4 kg (155 lb 3.2 oz) SpO2 96% BMI 25.52 kg/m?? NAD, alert, conversational, comfortable and more energetic appearing that at prior visit MMM, neck supple Regular rate, no murmur Normal WOB at rest, persistently diminished breath sounds throughout, no significant wheezing, no crackles LE without significant edema Ambulatory over short distances Pulmonary Function Test Results: 06/03/2021: The FEV1 is very severely reduced, the FVC is moderately reduced and the FEV1/FVC is reduced. The DLCO is moderately reduced. IMPRESSION: Severe airflow obstruction, with moderately impaired diffusing capacity. Compared with prior testing Feb 2021 the FEV1, FVC and DLCO are again reduced. 03/31/2022: The FEV1 is very severely reduced, the FVC is moderately reduced and the FEV1/FVC is reduced. The DLCO is severely reduced. IMPRESSION: Severe airflow obstruction, with severely impaired diffusing capacity. Compared with prior testing May 2021 the FEV1, FVC and DLCO are stable. 09/13/2022: The FEV1 is very severely reduced (19% pred), the FVC is severely reduced (46% pred) and the FEV1/FVC is reduced. The DLCO is severely reduced (33% pred). IMPRESSION: Severe airflow obstruction, with severely impaired diffusing capacity. Compared with prior testing 2021 the FEV1, FVC and DLCO are all reduced. 10/18/2022: The FEV1 is very severely reduced (22% pred), the FVC is severely reduced (49% pred) andthe FEV1/FVC is reduced. The DLCO is severely reduced (37% pred). IMPRESSION: Severe airflow obstruction, with severely impaired diffusing capacity. Compared with prior testing September 2022 the FEV1, FVC and DLCO are minimally increased, and the FEV1 remains below herbaseline from 2021. Labs, Microbiology and Imaging: I personally reviewed relevant laboratory, microbiologic and radiology results which were significant for: Chest CT 06/03/2021: stable small 4 mm and 5 mm lung nodules (now stable for 3 years); diffuse emphysema. CTA chest 07/15/2022: no PE, diffuse emphysema, small patchy infiltrates RML and RLL, 5 mm RUL nodule, small pericardial effusion Chest CT 10/25/2022: stable small pulmonary nodules, resolution of prior infiltrate, trace pericardial effusion Bact resp culture 09/13/2022: mixed upper roxanne, many neutrophils, gram positive cocci seen but not cultured AFB sputum culture 09/13/2022: smear negative, culture NGTD Bacterial respiratory culture 10/18/2022: mixed upper respiratory roxanne, many neutrophils, few squams VBG 10/2022: 7.35/56/42 EKG 09/09/2021: NSR, no acute changes, QTc 454 A1AT level in 2012 was 146 (genotype results NEGATIVE for S or Z allele) Immunization History: Flu vaccine: COVID-19 vaccine: has had primary and boosters Pneumovax: Impression and Recommendations: Jessie Sanchez is a 52 y.o. woman with emphysema and severe COPD with longstanding oxygen dependence, very severe airflow obstruction, small pulmonary nodules, allergies, CHF, controlled GERD, recurrenttobacco use, history of recurrent respiratory exacerbations including acute hypoxic/hypercarbic COPD exacerbation 2/2 flu infection with ICU admission August 2021, some 2/2 CHF exacerbations, and protracted COPD exacerbation with associated decline in lung function this summer (FEV1 most recently 22% predicted); interestingly though she did not try much additional prednisone last month due to fear of side effects she has had some improvement in exertional dyspnea and fatigue and her pulmonary examis improved. Repeat sputum culture was unrevealing, and repeat chest CT October 2022 shows resolution of previous pulmonary ground glass and tree in bed infiltrates with no new pulmonary process identified. She does have evidence of chronic hypercarbia on VBG from October; discussed option to pursue ABG and nocturnal ventilation with bipap, which she is open to. ABG ordered. Home overnight pulse ox on her baseline NC O2 also needed and ordered. We can consider repeat short courses of prednisone with acute exacerbations, but she does not wish to use consistently right now. If restarting 20 mg daily may have been beneficial and can be used again. She has been on triple inhaled therapy with high dose trelegy with benefit, and is appropriately using albuterol and duonebs PRN. She is unable to tolerate chronic azithromycin due to GI side effects, and recent trial of short azithromycin course was not very helpful for symptoms. She is already using supplemental oxygen 2-3 LPM at rest and qHS, with 3LPM NC with ambulation/3 pulse at rest/4-5 pulse with ambulation. Flutter valve use encouraged PRN for airway clearance. Increased exercise encouraged: She participated in pulmonary rehab last winter, does not feel she needs to resume this now, she will continue working to increase activity at home and she plans to rejoin a gym locally. She has been disabled beginning around 2012 due to severe COPD with hypoxic respiratory failure on chronic supplemental O2; I completed updated disability paperwork in July 2022 documenting continued pulmonary limitations and care needs. She will qualify for lung cancer screening when she turns 55. No specific timed f/u currently indicated for stable small pulm nodules seen [id number]. She has been smoking up to 1 ppd this year; as of day of this visit she states she is actively quitting, and has just started using nicotine patches. Tobacco cessation counseling completed again at this visit. We have previously discussed lung transplant evaluation and she is open to this in concept. She is aware this will involve a referral to a center in [place], and that she needs to quit smoking before transplant would be an option. She is agreeable to a referral now. Referral letter written and referral order placed, to be faxed to [place] transplant center ([facility] vs [facility] pending insurance information.) Summary Recommendations: - continue nicotine patches, currently on 21 mcg - continue trelegy inhaler 200 daily, albuterol MDI with spacer and duonebs PRN - continue singulair/zyrtec/flonase daily - ABG and home overnight oxygen testing on home O2 ordered - increased activity encouraged; she will start going to the gym regularly - continue supplemental NC O2: 2-3LPM at rest and qHS/3 LPM continuous with activity/3 pulse at rest/4-5 pulse with activity on POC - continue flutter valve for airway clearance, increased use encouraged - lung transplant referral placed Follow-up with in-office visit in 2-3 months Thank you for involving me in Ms. Sanchez's care. Please feel free to contact me with any further questions or concerns. I personally spent 28 minutes of this encounter with the patient discussing their pulmonary diseaseand treatment recommendations as outlined in my assessment and plan above. This visit involved a total of 35 minutes of clinical time on day of visit. Kira Thayer MD [facility] [address] Dept: [phone] Loc: [phone] documented in this encounter Plan of Treatment Upcoming Encounters Date Type Department Care Team (Late st Contact Info) Description 08/27/2024 4:00 PM EDT Office Visit Pulmonology at [facility] [place] [id number] Kira Thayer MD [facility] [place] [address] Scheduled Referrals Name Type Priority Associated Diagnoses Order Schedule Referral to Pulmonology Outpatient Referral Routine COPD, very severe Ordered: 11/25/2022 documented as of this encounter Procedures Procedure Name Priority Date/Time Associated Diagnosis Comments BLOOD GAS ARTERIAL (NL) Routine 11/22/2022 10:16 AM EDT documented in this encounter Results * (ABNORMAL) Blood Gas Arterial ([facility]) (11/22/2022 10:16 AM EDT) pH, Arterial 7.39 7.35 - 7.45 [facility] PCO2, Arterial 47(H) 35 - 45 mmHg [facility] PO2, Arterial 73(L) 85 - 104 mmHg [facility] Bicarbonate, Arterial 27.7(H) 20.0 - 26.0 mmol/L [facility] Base Excess, Arterial 2.7 -3.0 - 3.0 mmol/L [facility] Hgb Blood Gas 15.2 11.7 - 15.5 g/dL [facility] Oxyhemoglobin, Arterial 92.1(L) 94.0 - 97.0 % [facility] Carboxyhemoglob in, Arterial 2.9 % [facility] Comment: Nonsmokers: ??0.5-1.5% COHB Smokers: ??Variable, but usually less than 10% Toxic: 20 - 30% COHB Lethal: ??Greater than 60% COHB Methemoglobin, Arterial 0.3 <=1.5 % [facility] Na Whole Blood 140 135 - 145 mmol/L [facility] K Whole Blood 3.9 3.5 - 5.0 mmol/L [facility] Comment: Please note: ??Patients with WBC >100,000 may have falsely elevated Potassium levels. ??Contact the Clinical Chemistry Laboratory if there are any questions. ICa Whole Blood 1.18 1.15 - 1.33 mmol/L [facility] Comment: Note: ??Total bilirubin higher than 20 mg/dL may lead to falsely low ionized calcium. CL Whole Blood 103 98 - 107 mmol/L [facility] Gluc Whole Bld 79 65 - 199 mg/dL [facility] Comment:Diabetes: >=200 mg/d L plus symptoms. Lactate WB 0.9 0.5 - 2.2 mmol/L [facility] Blood Arterial Draw / Unknown 11/22/2022 10:16 AM EDT 11/22/2022 10:24 AM EDT Narrative Resulting Agency Comment Spec In Lab Kira Thayer MD CHEMISTRY ORDERABLES Performing Organization Address City/State/[place] Co de Phone Number [facility] [place] [address] documented in this encounter Visit Diagnoses Diagnosis COPD, very severe Chronic airway obstruction, not elsewhere classified Tobacco use Tobacco use disorder Supplemental oxygen dependent Dependence on supplemental oxygen Hypercarbia Other dyspnea and respiratory abnormality documented in this encounter Care Teams Social Work Therapist Relationship Specialty Start Date End Date Belkys Bundy DO [address] [place] [id number] PCP - General Family Medicine 03/21/19 documented as of this encounter
--- OUTSIDE RECORDS SUMMARY | 2024-03-29 08:12 | XMS_ITS | Encounter Summary ---
[place] [address] Care Team Providers Care Echometer Engineer Name Role Phone Belkys Bundy Primary Care Provider +1- [phone] Reason for Visit * Reason Onset Date Comments Oxygen Dependence 07/27/2023 Overnight Puls e Oximetry Requisition Encounter Details Date Type Department Care Team (Late st Contact Info) Description 07/27/2023 Telephone [place] [id number] Emily Starr RN Oxygen Dependence (Overnight Pulse Oximetry Requisition) Social History Tobacco Use Types Packs/Day Years Used Date Smoking Tobacco: Former Cigarettes 0.5 15 0 11/23/2007 - 11/22/2022 Smokeless Tobacco: Never Comments:When smoking averag ed 2 packs a day Alcohol Use Standard Drinks/Week Comments Yes 0 (1 standard drink = 0.6 oz pure alcohol) rare drink, one drink every few months Sex and Gender Information Value Date Recorded Sex Assigned at Female 06/09/2020 12:20 PM EST Gender Identity Not on file Sexual Orientation Straight 06/09/2020 12 :20 PM EST documented as of this encounter Miscellaneous Notes * Telephone Encounter - Emily Starr RN - 10/11/2023 8:32 AM EDT Faxed completed Overnight Pulse Oximetry Testing Requisition, signed by Dr. Thayer, to [facility]. Attached to this was the following items: Patient Demographics This covered the following items: Common Pulmonary Function Test Qty: 1 Preferred location? External [125] Which External location will this be performed: Other Other Facility: [facility] Test to be performed: Pulse Ox Overnight Overnight oxygen testing to be performed on home 2L NC O2 Fax submission confirmation time stamped for 07/27/2023 @ 7334. 4 pages with cover sheet. documented in this encounter Plan of Treatment Upcoming Encounters Date Type Department Care Team (Late st Contact Info) Description 08/27/2024 4:00 PM EDT Office [place] [address] Kira Thayer MD [facility] [place] [address] documented as of this encounter Visit Diagnoses Not on filedocumented in this encounter Care Teams Echometer Engineer Relationship Specialty Start Date End Date Belkys Bundy DO [address] [place] [address] PCP - General Family Medicine 03/21/19 documented as of this encounter
--- OUTSIDE RECORDS SUMMARY | 2024-03-29 08:12 | XMS_ITS | Encounter Summary ---
[place] [address] Care Team Providers Care Video Intern Name Role Phone Belkys Bundy Virginie MYRICK Primary Care Provider +1- [phone] Reason for Referral * Diagnostic Test (Routine) - Closed Specialty Diagnoses / Procedures Referred By Contac t Referred To Contact Radiology Diagnoses Bacterial pneumonia Procedures CT Chest wo Contrast (Generic) Kira Thayer MD [facility] [place] [address] [facility] [place] [address] Referral ID Status Reason Start Date Expiration Date V isits Requested Visits Authorized [id number] Closed Specialty Service Requested 10/18/2022 04/20/2024 1 1 Reason for Visit * Diagnostic Test (Routine) - Closed Specialty Diagnoses / Procedures Referred By Contac t Referred To Contact Radiology Diagnoses Bacterial pneumonia Procedures CT Chest wo Contrast (Generic) Kira Thayer MD [facility] [place] [address] [facility] [place] [address] Referral ID Status Reason Start Date Expiration Date V isits Requested Visits Authorized [id number] Closed Specialty Service Requested 10/18/2022 04/20/2024 1 1 Encounter Details Date Type Department Care Team (Latest Contact Info) Description 10/25/2022 7:48 AM EDT - 10/25/2022 11:59 PM EDT Hospital Encounter CT Scan at [facility] [place] [address] Kira Thayer MD [facility] [place] [address] Bacterial pneumonia Discharge Disposition: Home Social History Tobacco Use Types Packs/Day Years Used Date Smoking Tobacco: Every Day Cigarettes 1 15 Smokeless Tobacco: Never Comments:When smoking averag ed [...] PM EST documented as of this encounter Medications at Time of Discharge Medication Sig Dispensed Refills Start Date End Date inhalational spacing device (Ricci Aerosol Kimball Enhancer) Spacer .MEDSUPPLY 02/01/2020 levothyroxine (Synthroid) 100 mcg Tablet Take 100 mcg by mouth nightly. 06/11/2020 linaCLOtide (Linzess) 72 mcg Capsule Take 72 mcg by mouth as needed. Take 30 minutes before meal 05/09/2020 albuteroL 90 mcg/actuation HFA Aerosol InhalerIndications:Ch ronic obstructive pulmonary disease, unspecified COPD type Inhale 2 puffs into the lungs every 4 hours as needed for Wheezing or Shortness of Breath. Use with spacer 36 g 5 06/03/2021 benzonatate (TESSALON) 200 mg Capsule Take 1 capsule by mouth 3 times daily as needed for Cough. 30 capsule 1 01/09/2021 montelukast (Singulair) 10 mg Tablet Take 1 tablet by mouth nightly. 30 tablet 11 07/16/2020 fluticasone propionate (FLONASE) 50 mcg/actuation Solo, Suspension 02/01/2020 atorvastatin (Lipitor) 20 mg Tablet 05/20/2020 cyclobenzaprine (Flexeril) 10 mg Tablet Take 10 mg by mouth as needed. 11/28/2019 dicyclomine (BENTYL) 20 mg Tablet TAKE 1 TABLET BY MOUTH TWICE A DAY IF NEEDED FOR STOMACH UPPSET 01/14/2020 cetirizine (ZyrTEC) 10 mg Tablet Take 10 mg by mouth daily. ipratropium-albuteroL (DUONEB) 0.5 mg-3 mg(2.5 mg base)/3 mL Solution for Nebulization USE 1 VIAL VIA NEBULIZER 4 TIMES A DAY NEEDED FOR SHORTNESS OF BREATH/ WHEEZING 02/24/2019 citalopram (CELEXA) 40 mg Tablet Take 40 mg by mouth every morning. mirabegron (MYRBETRIQ ORAL) Take 20 mg by mouth daily. omeprazole (PRILOSEC) 20 mg Capsule, Delayed Release(E.C.) Take 20 mg by mouth daily as needed. docusate sodium (COLACE) 100 mg Capsule Take 100 mg by mouth 3 times daily as needed for Constipation. buPROPion (WELLBUTRIN SR) 150 mg Tablet Sustained Release Take 150 mg by mouth 2 times daily. 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 14 tablet 10/18/2022 11/01/2022 nicotine (Nicoderm CQ) 21 mg/24 hr Patch 24 hrIndications:Tobacco use Change 1 patch on the skin daily. 28 patch 5 10/18/2022 02/07/2023 fluticasone-umeclidin ium-vilanterol (Trelegy Ellipta) 200-62.5-25 mcgIndications:COPD, very severe Inhale 1 puff into the lungs daily. 28 each 11 10/18/2022 11/16/2023 predniSONE (Deltasone) 20 mg tablet TAKE TWO TABLETS BY MOUTH EVERY DAY NEEDED FOR COPD EXACERBATION; ALERT TEST ENGINEER NUCLEAR EQUIPMENT AND PCP 09/01/2022 06/20/2023 potassium chloride (KLOR-CON) 20 mEq Packet Take 20 mEq by mouth 2 times daily. 11/27/2020 02/07/2023 morphine IR (MSIR) 15 mg Tablet 04/12/2019 02/07/2023 citalopram (CELEXA) 20 mg Tablet Take 20 mg by mouth nightly. 02/07/2023 traZODone (DESYREL) 100 mg Tablet Take 200 mg by mouth nightly. 06/20/2023 documented as of this encounter Plan of Treatment Upcoming Encounters Date Type Department Care Team (Late st Contact Info) Description 08/27/2024 4:00 PM EDT [place] [address] Kira Thayer MD [facility] [place] [address] documented as of this encounter Procedures Procedure Name Priority Date/Time Associated Diagnosis Comments CT CHEST WO CONTRAST (GENERIC) Routine 10/25/2022 8:03 AM EDT Bacterial pneumonia documented in this encounter Results * CT Chest wo Contrast (Generic) (10/25/2022 8:03 AM EDT) Anatomical Region Laterality Modality Chest Computed Tomogra phy Impressions 10/25/2022 10:54 AM EDT Resolution of previously seen groundglass and tree-in-bud opacities in the right middle lobe. Stable pulmonary nodules, as above. No new pulmonary nodule. I have personally reviewed the image(s) and the resident's interpretation and agree with the findings, Raheem Morin MD at 10/25/2022 10:54 AM Thank you for letting us participate in the care of this patient. ??If you are a health care provider and have any questions regarding this report, please contact the number below. ??For patients who have questions please contact the health care team assistant that requested your imaging first. ? Electronically signed by: Raheem Morin MD, [facility] ??([phone]), at 10/25/2022 10:54 AM Narrative 10/25/2022 10:54 AM EDT EXAMINATION: CT CHEST WO CONTRAST (GENERIC) CLINICAL HISTORY: Pneumonia, unresolved pneumonia July, f/u scan in pt with tobacco use ongoing, continued cough and dyspnea TECHNIQUE: Helical CT of the chest without intravenous contrast administration. Thin-section reconstructions as well as coronal and sagittal reformatted images were generated. COMPARISON: CT of the chest 07/15/2022 FINDINGS: Pulmonary parenchyma: Centrilobular emphysema. Resolution of previously seen right middle lobe tubular branching opacities and groundglass opacities. Stable sub-6 mm left apical (series 5, image 35), left upper lobe (series 5, image 142) and right upper lobe (series 5, image 103) pulmonary nodules since 03/28/2018. No new pulmonary nodule. Airways: No central endobronchial abnormality. Pleura: No effusion or pneumothorax Lymph nodes: No lymphadenopathy. Heart and vasculature: Normal size of the heart. Trace pericardial effusion. Normal caliber of the thoracic aorta. Other mediastinal structures: No significant findings. Upper abdomen: No significant findings. Skeletal structures: No significant findings. Procedure Note Raheem Morin MD - 10/25/2022 EXAMINATION: CT CHEST WO CONTRAST (GENERIC) CLINICAL HISTORY: Pneumonia, unresolved pneumonia July, /u scan in ptwith tobacco use ongoing, continued cough and dyspnea TECHNIQUE: Helical CT of the chest without intravenous contrastadministration. Thin-section reconstructions as well as coronal and sagittal reformattedimages were generated. COMPARISON: CT of the chest 07/15/2022 FINDINGS: Pulmonary parenchyma: Centrilobular emphysema. Resolution of previously seen right middle lobe tubular branchingopacities and groundglass opacities. Stable sub-6 mm left apical (series 5, image 35), left upper lobe (series5, image 142) and right upper lobe (series 5, image 103) pulmonary nodulessince 03/28/2018. No new pulmonary nodule. Airways: No central endobronchial abnormality. Pleura: No effusion or pneumothorax Lymph nodes: No lymphadenopathy. Heart and vasculature: Normal size of the heart. Trace pericardialeffusion. Normal caliber of the thoracic aorta. Other mediastinal structures: No significant findings. Upper abdomen: No significant findings. Skeletal structures: No significant findings. IMPRESSION Resolution of previously seen groundglass and tree-in-bud opacities in theright middle lobe. Stable pulmonary nodules, as above. No new pulmonary nodule. I have personally reviewed the image(s) and the resident's interpretationand agree with the findings, Raheem Morin MD at 10/25/2022 10:54 AM Thank you for letting us participate in the care of this patient. If youare a health care provider and have any questions regarding this report,please contact the number below. For patients who have questions please contactthe health care team assistant that requested your imaging first. Electronically signed by: Raheem Morin MD, [facility]([phone]), at 10/25/2022 10:54 AM Kira Thayer MD IMG CT ORDERABLES documented in this encounter Visit Diagnoses Diagnosis Bacterial pneumonia Bacterial pneumonia, unspecified documented in this encounter Care Teams Video Intern Relationship Specialty Start Date End Date Belkys Bundy DO [address] [place] [address] PCP - General Family Medicine 03/21/19 documented as of this encounter
--- OUTSIDE RECORDS SUMMARY | 2024-03-29 08:12 | XMS_ITS | Encounter Summary ---
Author Organization [facility] [place] [address] Care Team Providers Care Aircraft Maintenance Technician Name Role Phone Belkys Bundy Primary Care Provider +1- [phone] Encounter Details Date Type Department Care Team (Late st Contact Info) Description 03/01/2024 [place] [phone] Yesenia Nino, RN Social History Tobacco Use Types Packs/Day Years [...] Telephone Encounter - Emily Starr RN - 03/01/2024 1:47 PM EST [place] paperwork faxed to [employer]'s HR department. Fax submission confirmation time stamped for 03/01/2024 @ 5988. 5 pages with cover sheet. Copy sentto medical records for inclusion to patient chart. Originals mailed to Jones Seth at Jessie's address on file. RN called back and spoke to Jones, and confirmed address before mailing, updating that paperwork had been submitted. * Telephone Encounter - Kira Thayer MD - 03/01/2024 1:22 PM EST FMLA paperwork for Jones completed, ready to fax. 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 Surgery was late last night, he was told it went well, and he is awaiting more information. Kira Thayer MD * Telephone Encounter - Yesenia Turcios RN - 03/01/2024 11:13 AM EST Copied from [facility] #[id number]. Topic: Specialty Dept CRMs - Generic Call >> Mar 01, 2024 8:[address] wrote: Specialist: Kira Thayer MD Relationship (if other than patient-full name): Jones, significant other Reason for Call: [facility] calling today [facility]. He also inquired whether or not FMLA paperwork has been completed. Please call him at [phone]. documented in this encounter Plan of Treatment Upcoming Encounters Date Type Department Care Team (Late st Contact Info) Description 08/27/2024 4:00 PM EDT [place] [address] Kira Thayer MD [facility] [place] [address] documented as of this encounter Visit Diagnoses Not on filedocumented in this encounter Care Teams Aircraft Maintenance Technician Relationship Specialty Start Date End Date Belkys Bundy DO [address] [place] [address] PCP - General Family Medicine 03/21/19 documented as of this encounter
--- OUTSIDE RECORDS SUMMARY | 2024-03-29 08:12 | XMS_ITS | Encounter Summary ---
[place] [address] Care Team Providers Care Jd Edwards Consultant Name Role Phone Belkys Bundy Primary Care Provider +1- [phone] Reason for Visit * Reason Onset Date Comments Oxygen Dependence 12/19/2023 Overnight Puls e Oximetry Testing Requisition Encounter Details Date Type Department Care Team (Late st Contact Info) Description 12/19/2023 [place] [phone] Emily Starr RN Oxygen Dependence (Overnight Pulse Oximetry Testing Requisition) Social History Tobacco Use Types Packs/Day [...] Telephone Encounter - Emily Starr RN - 12/19/2023 3:18 PM EDT Faxed completed Overnight Pulse Oximetry Requisition, signed by Dr. Thayer, to [facility]. Attached to this was the following items: Patient Demographics, This covered the following items: To be performed on home 2L [place] Oxygen Fax submission confirmation time stamped for @ 4460. 4 pages with cover sheet. documented in this encounter Plan of Treatment Upcoming Encounters Date Type Department Care Team (Late st Contact Info) Description 08/27/2024 4:00 PM EDT [place] [address] Kira Thayer MD [facility] [place] [address] documented as of this encounter Visit Diagnoses Not on filedocumented in this encounter Care Teams Jd Edwards Consultant Relationship Specialty Start Date End Date Belkys Bundy DO [address] [place] [address] PCP - General Family Medicine 03/21/19 documented as of this encounter
--- OUTSIDE RECORDS SUMMARY | 2024-03-29 08:12 | XMS_ITS | Encounter Summary ---
[place] [address] Care Team Providers Care Manufacturing Engineering Intern Name Role Phone Belkys Bundy DO Primary Care Provider +1- [phone] Reason for Visit * Reason Onset Date Comments Pre Procedure Call 08/23/2023 Encounter Details Date Type Department Care Team (Late st Contact Info) Description 08/23/2023 [place] [phone] Emily Starr RN Pre Procedure Call Social History Tobacco Use Types Packs/Day Years [...] Telephone Encounter - Emily Starr RN - 08/23/2023 1:17 PM EDT Copied from CRM #[id number]. Topic: Specialty Dept CRMs - Generic Call >> August 18, 2023 2:30 PM Sera Santana wrote: Specialist: Kira Thayer MD Relationship (if other than patient-full name): Praveena Allred, Res Counselor from [facility] Internal Medicine - Patients PCP's Office Reason for Call: Praveena Allred, Res Counselor from [facility], Patients Provider called today wanting to know if Patients Continuous Process Rotary Drum Tanner could give Patient clearance for a colonoscopy, which is required from [facility] in order for Patient to have a lung transplant. Praveena states that the lung transplant can not get schedule until Patient is cleared for a colonoscopy. documented in this encounter Plan of Treatment Upcoming Encounters Date Type Department Care Team (Late st Contact Info) Description 08/27/2024 4:00 PM EDT [place] [address] Kira Thayer MD [facility] [place] [address] documented as of this encounter Visit Diagnoses Not on filedocumented in this encounter Care Teams Manufacturing Engineering Intern Relationship Specialty Start Date End Date Belkys Bundy DO [address] [place] [address] PCP - General Family Medicine 03/21/19 documented as of this encounter
--- OUTSIDE RECORDS SUMMARY | 2024-03-29 08:12 | XMS_ITS | Encounter Summary ---
[place] [address] Care Team Providers Care Chemist Internship Name Role Phone Belkys Bundy DO Primary Care Provider +1- [phone] Reason for Visit * Reason Onset Date Comments Disability Paperwork 03/02/2024 Encounter Details Date Type Department Care Team (Late st Contact Info) Description 03/02/2024 Telephone [place] [phone] Emily Starr RN Disability Paperwork Social History Tobacco Use Types Packs/Day Years [...] Telephone Encounter - Emily Starr RN - 03/06/2024 9:51 AM EST Faxed completed Addended [place] paperwork, signed by Dr. Thayer, to [employer]. This covered the following items: Estimated end date 04/30/2024. Fax submission confirmation time stamped for 03/06/2024 @ 0908. 5 pages with cover sheet. Copy of [facility] paperwork sent to scanning for inclusion to patient records. Mailed to patient's address on file, previously confirmed. RN attempted to call Jones to update, but rec'd automated notification that his phone line had been disconnected. * Telephone Encounter - Emily Starr RN - 03/02/2024 1:48 PM EST Copied from CRM #[id number]. Topic: Specialty Dept CRMs - Generic Call >> Mar 02, 2024 8:39 AM Bryon Khanna wrote: Specialist: Kira Thayer MD Relationship (if other than patient-full name): Jones Avila, patient's Reason for Call: Suleiman stated his employer contacted him and the [facility] paperwork needs an end date, it can say something like 2 months. Suleiman stated this may need to be revisited later. Suleiman stated to please update the form and fax to his employer. Suleiman stated he can be reached at [phone] to discuss. documented in this encounter Plan of Treatment Upcoming Encounters Date Type Department Care Team (Late st Contact Info) Description 08/27/2024 4:00 PM EDT Office [place] [address] Kira Thayer MD [facility] [place] [address] documented as of this encounter Visit Diagnoses Not on filedocumented in this encounter Care Teams Chemist Internship Relationship Specialty Start Date End Date Belkys Bundy DO [address] [place] [address] PCP - General Family Medicine 03/21/19 documented as of this encounter
--- OUTSIDE RECORDS SUMMARY | 2024-03-29 08:12 | XMS_ITS | Encounter Summary ---
Author Organization [facility] [place] [address] Care Team Providers Care Accounting Auditor Name Role Phone Belkys Bundy Primary Care Provider +1- [phone] Encounter Details Date Type Department Care Team (Late st Contact Info) Description 03/23/2024 [place] [phone] Emily Starr RN Social History Tobacco Use Types Packs/Day [...] Telephone Encounter - Emily Starr RN - 03/23/2024 2:10 PM EST Copied from CRM #[id number]. Topic: Specialty Dept CRMs - Generic Call >> Mar 23, 2024 10:13 AM Rowena Black wrote: Specialist: Kira Thayer Relationship (if other than patient-full name): Partner Suleiman Avila Reason for Call: FYI - Advising patient was released from the hospital on 03/21/24. Patient is doing well so far. documented in this encounter Plan of Treatment Upcoming Encounters Date Type Department Care Team (Late st Contact Info) Description 08/27/2024 4:00 PM EDT [place] [address] Kira Thayer MD [facility] [place] [address] documented as of this encounter Visit Diagnoses Not on filedocumented in this encounter Care Teams Accounting Auditor Relationship Specialty Start Date End Date Belkys Bundy DO [address] [place] [address] PCP - General Family Medicine 03/21/19 documented as of this encounter
--- OUTSIDE RECORDS SUMMARY | 2024-03-29 08:12 | XMS_ITS | Encounter Summary ---
[place] [address] Care Team Providers Care Bike Designer Name Role Phone Belkys Bundy DO Primary Care Provider +1- [phone] Reason for Visit * Reason Onset Date Comments Oxygen Dependence 12/19/2023 Overnight Puls e Oximetry Encounter Details Date Type Department Care Team (Late st Contact Info) Description 12/19/2023 [place] [address] Emily Starr RN Oxygen Dependence (Overnight Pulse Oximetry) Social History Tobacco Use Types Packs/Day Years [...] Encounter - Emily Starr RN - 12/19/2023 3:12 PM EDT RN faxed telephone encounter dated 12/16/2023, to [facility], attn: Dr. Belkys Bundy DO. Fax submission confirmation time stamped for 12/19/2023 @ 0787. 4 pages with cover sheet. documented in this encounter Plan of Treatment Upcoming Encounters Date Type Department Care Team (Late st Contact Info) Description 08/27/2024 4:00 PM EDT [place] [address] Kira Thayer MD [facility] [place] [address] documented as of this encounter Visit Diagnoses Not on filedocumented in this encounter Care Teams Bike Designer Relationship Specialty Start Date End Date Belkys Bundy DO [address] [place] [address] PCP - General Family Medicine 03/21/19 documented as of this encounter
--- OUTSIDE RECORDS SUMMARY | 2024-03-29 08:12 | XMS_ITS | Encounter Summary ---
[place] [address] Care Team Providers Care Medical Translator Name Role Phone Belkys Bundy Primary Care Provider +1- [phone] Reason for Visit * Reason Onset Date Comments Pulmon Rehab 02/17/2023 Encounter Details Date Type Department Care Team (Late st Contact Info) Description 02/17/2023 [place] [phone] Emily Starr RN Pulmon Rehab Social History Tobacco Use Types Packs/Day Years [...] Telephone Encounter - Emily Starr RN - 02/17/2023 3:10 PM EST RN faxed out referral to [facility] Pulmonary Rehab, attached was the following records: Referral, Patient Demographics, Allergy and Medication List, Immunization Summary, Office Visit Notes dated 02/07/2023, 11/22/2022, PFT results dated 10/18/2022, 09/13/2022 Fax submission confirmation time stamped for 02/17/2023 @ 6167, 30 pages with cover sheet. documented in this encounter Plan of Treatment Upcoming Encounters Date Type Department Care Team (Late st Contact Info) Description 08/27/2024 4:00 PM EDT Office [place] [address] Kira Thayer MD [facility] [place] [address] documented as of this encounter Visit Diagnoses Not on filedocumented in this encounter Care Teams Medical Translator Relationship Specialty Start Date End Date Belkys Bundy DO [address] [place] [address] PCP - General Family Medicine 03/21/19 documented as of this encounter
--- OUTSIDE RECORDS SUMMARY | 2024-03-29 08:12 | XMS_ITS | Encounter Summary ---
[facility] Organization [facility] [place] [address] Care Team Providers Care It Network Architect Name Role Phone Belkys Bundy Primary Care Provider +1- [phone] Encounter Details Date Type Department Care Team (Late st Contact Info) Description 03/22/2024 [place] [phone] Tasha Obrien, RN Social History Tobacco Use Types Packs/Day [...] encounter Miscellaneous Notes * Telephone Encounter - Tasha Obrien RN - 03/22/2024 8:37 AM EST Copied from [facility] #[id number]. Topic: Specialty Dept CRMs - Form Request >> Mar 19, 2024 10:39 AM Juan Manuel Santana wrote: Patient is requesting to have form completed Specialist Dr. Thayer Relationship (if other than patient-full name): Suleiman Seth- spouse Type of paperwork: FMLA Provider: Dr. Thayer When does patient need to have form completed by: as soon as possible For letter request, what is the letter for and what does the letter need to say: Suleiman called regarding FMLA paperwork previously completed by provider. Suleiman stated they did not previously have the dated needed for the paperwork from [place], but now know start date should be today 03/19/24 and end date 3 months from now. After completion please: Fax to: Suleiman's employer. Patient informed that completion of this request can take 5-7 business days. documented in this encounter Plan of Treatment Upcoming Encounters Date Type Department Care Team (Late st Contact Info) Description 08/27/2024 4:00 PM EDT Office [place] [address] Kira Thayer MD [facility] [place] [address] documented as of this encounter Visit Diagnoses Not on filedocumented in this encounter Care Teams It Network Architect Relationship Specialty Start Date End Date Belkys Bundy DO [address] [place] [address] PCP - General Family Medicine 03/21/19 documented as of this encounter
--- OUTSIDE RECORDS SUMMARY | 2024-03-29 08:12 | XMS_ITS | Encounter Summary ---
Author Organization [facility] [place] [address] Care Team Providers Care Plant Care Worker Name Role Phone Belkys Bundy Primary Care Provider +1- [phone] Encounter Details Date Type Department Care Team (Late st Contact Info) Description 07/25/2023 Telephone [place] [phone] Cristin Block Social History Tobacco Use Types Packs/Day Years [...] PM EST documented as of this encounter Plan of Treatment Upcoming Encounters Date Type Department Care Team (Late st Contact Info) Description 08/27/2024 4:00 PM EDT Office [place] [address] [facility] PULMONARY [place] [address] documented as of this encounter Visit Diagnoses Not on filedocumented in this encounter Care Teams Plant Care Worker Relationship Specialty Start Date End Date Belkys Bundy DO [address] [place] [address] PCP - General Family Medicine 03/21/19 documented as of this encounter
--- OUTSIDE RECORDS SUMMARY | 2024-03-29 08:12 | XMS_ITS | Encounter Summary ---
Author Organization [facility] Address [facility] [place] [address] Care Team Providers Care Boiler Repair Supervisor Name Role Phone Belkys Bundy DO Primary Care Provider +1- [phone] Encounter Details Date Type Department Care Team (Latest Contact Info) Description 06/20/2023 Travel Social History Tobacco Use Types Packs/Day Years [...] 4:00 PM EDT [place] [address] Kira Thayer MD [facility] [place] [address] documented as of this encounter Visit Diagnoses Not on filedocumented in this encounter Care Teams Boiler Repair Supervisor Relationship Specialty Start Date End Date Belkys Bundy DO [address] [place] [address] PCP - General Family Medicine 03/21/19 documented as of this encounter
--- OUTSIDE RECORDS SUMMARY | 2024-03-29 08:12 | XMS_ITS | Encounter Summary ---
[place] [address] Care Team Providers Care Irrigation Tax Assessor Collector Name Role Phone Belkys Bundy Primary Care Provider +1- [phone] Reason for Visit * Reason Onset Date Comments Lung Transplant Pre-evaluation 11/25/2022 Encounter Details Date Type Department Care Team (Late st Contact Info) Description 11/25/2022 Telephone [place] [phone] Emily Starr RN Lung Transplant Pre-evaluation Social History Tobacco Use Types Packs/Day Years Used Date Smoking Tobacco: Every Day Cigarettes 0.5 15 Smokeless Tobacco: Never Comments:When smoking averag [...] Telephone Encounter - Emily Starr RN - 11/25/2022 1:04 PM EDT Faxed completed Pre-transplant referral, signed by Dr. Thayer, to [facility] Transplant Team. Attached to this was the following items: Introduction letter from Dr. Thayer, Referral form, Patient Demographics, Office Visit Notes dated 11/22/2022, 10/18/2022 PFTs dated 10/18/2022, 09/13/2022 Fax submission confirmation time stamped for 11/25/2022 @ 1524. 56 pages with cover sheet. documented in this encounter Plan of Treatment Upcoming Encounters Date Type Department Care Team (Late st Contact Info) Description 08/27/2024 4:00 PM EDT Office [place] [address] Kira Thayer MD [facility] [place] [address] documented as of this encounter Visit Diagnoses Not on filedocumented in this encounter Care Teams Irrigation Tax Assessor Collector Relationship Specialty Start Date End Date Belkys Bundy DO [address] [place] [address] PCP - General Family Medicine 03/21/19 documented as of this encounter
--- OUTSIDE RECORDS SUMMARY | 2024-03-29 08:12 | XMS_ITS | Encounter Summary ---
[place] [address] Care Team Providers Care Director Of Accounts Payable Name Role Phone Belkys Bundy Virginie MYRICK Primary Care Provider +1- [phone] Reason for Referral * Consultation (Routine) - Authorized Specialty Diagnoses / Procedures Referred By Rossy levine Referred To Contact Gastroenterology Diagnoses Diarrhea, unspecified type Elevated alkaline phosphatase level Lung transplant candidate John Nieves MD [facility] [place] [address] [facility] [address] [place] [phone] Referral ID Status Reason Start Date Expiration Date Visits Requested Visits Authorized [id number] Authorized Consult, Test & Treat 09/01/2023 08/31/2024 1 1 * Consultation (Urgent) - Closed Specialty Diagnoses / Procedures Referred By Rossy levine Referred To Contact Gastroenterology Diagnoses Diarrhea, unspecified type Elevated alkaline phosphatase level Lung transplant candidate Procedures Procedure: Colonoscopy Indication: Diarrhea Sedation: IVCS Timeframe: within 6-8 weeks Specific provider: first available OV needed: No Anticoagulation status: no documented anticoagulation use John Nieves MD [facility] [address] [facility] Endoscopy [address] [place] [id number] Referral ID Status Reason Start Date Expiration Date V isits Requested Visits Authorized [id number] Closed Test Only 09/01/2023 08/31/2024 1 1 Encounter Details Date Type Department Care Team (Late st Contact Info) Description 09/01/2023 Orders Only [place] [phone] John Nieves MD [facility] [place] [address] Lung transplant candidate (Primary Dx); Diarrhea, unspecified type; Elevated alkaline phosphatase level Social History Tobacco Use Types Packs/Day Years [...] 4:00 PM EDT [place] [phone] Kira Thayer MD [facility] [place] [address] Scheduled Referrals Name Type Priority Associated Diagnoses Order Schedule REFERRAL TO COLONOSCOPY PROCEDURE Outpatient Referral Urgent Diarrhea, unspecified type Elevated alkaline phosphatase level Lung transplant candidate Ordered: 09/01/2023 Referral to Gastroenterology Outpatient Referral Routine Diarrhea, unspecified type Elevated alkaline phosphatase level Lung transplant candidate Ordered: 09/01/2023 documented as of this encounter Visit Diagnoses Diagnosis Lung transplant candidate- Primary Diarrhea, unspecified type Elevated alkaline phosphatase level Other nonspecific abnormal serum enzyme levels documented in this encounter Care Teams Director Of Accounts Payable Relationship Specialty Start Date End Date Belkys Bundy DO [address] [place] [address] PCP - General Family Medicine 03/21/19 documented as of this encounter
--- OUTSIDE RECORDS SUMMARY | 2024-03-29 08:12 | XMS_ITS | Encounter Summary ---
Author Organization [facility] Address [facility] [place] [address] Care Team Providers Care Depositing Machine Operator Name Role Phone Belkys Bundy Primary Care Provider +1- [phone] Encounter Details Date Type Department Care Team (Late st Contact Info) Description 07/08/2023 Notes [place] [address] Kira Thayer MD [facility] [place] [address] Social History Tobacco Use Types Packs/Day Years [...] PM EST documented as of this encounter Progress Notes * Kira Thayer MD - 07/08/2023 11:53 AM EDT Patient reached out after lung transplant evaluation at [facility], reporting the recommended she discuss nocturnal bipap with us. Presumably this is related to finding of hypercarbia on labs (ECHO reviewed, does not show RV strain or elevated PA pressures.) Prior VBG fall 2022 did not demonstrate significant hypercarbia, and prior overnight oximetry on 2LNC O2 11/2022 did not demonstrate desaturation. 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 Kira Thayer MD documented in this encounter Plan of Treatment Upcoming Encounters Date Type Department Care Team (Late st Contact Info) Description 08/27/2024 4:00 PM EDT Office [place] [address] Kira Thayer MD [facility] [place] [address] documented as of this encounter Visit Diagnoses Not on filedocumented in this encounter Care Teams Depositing Machine Operator Relationship Specialty Start Date End Date Belkys Bundy DO [address] [place] [address] PCP - General Family Medicine 03/21/19 documented as of this encounter
--- OUTSIDE RECORDS SUMMARY | 2024-03-29 08:12 | XMS_ITS | Encounter Summary ---
Author Organization [facility] Address [facility] [place] [address] Care Team Providers Care Draw Fire Operator Name Role Phone Belkys Bundy Primary Care Provider +1- [phone] Reason for Visit * Reason Comments Medication Refill Trelegy Encounter Details Date Type Department Care Team (Late st Contact Info) Description 11/14/2023 [place] [address] Kira Thayer MD [facility] [place] [address] COPD, very severe Social History Tobacco Use Types Packs/Day Years [...] encounter Miscellaneous Notes * Telephone Encounter - Priti Weems Deep - 11/15/2023 11:16 AM EDT NAME OF MEDICATION AND DOSE: Dose and frequency as stated in medication list. PHARMACY NAME: [facility] PHONE: [phone] Would patient like script sent directly to pharmacy? (Please put Yes or No) yes Would patient like paper script mailed to home address (Please put yes or No) no Caller/Patient aware of 1-2 business day process. documented in this encounter Plan of Treatment Upcoming Encounters Date Type Department Care Team (Late st Contact Info) Description 08/27/2024 4:00 PM EDT [place] [address] Kira Thayer MD [facility] [place] [address] documented as of this encounter Visit Diagnoses Diagnosis COPD, very severe Chronic airway obstruction, not elsewhere classified documented in this encounter Care Teams Draw Fire Operator Relationship Specialty Start Date End Date Belkys Bundy DO [address] [place] [address] PCP - General Family Medicine 03/21/19 documented as of this encounter
--- OUTSIDE RECORDS SUMMARY | 2024-03-29 08:12 | XMS_ITS | Encounter Summary ---
Author Organization [facility] [place] [address] Care Team Providers Care Manufacturing Engineer Paint Name Role Phone Belkys Bundy Primary Care Provider +1- [phone] Encounter Details Date Type Department Care Team (Late st Contact Info) Description 12/14/2022 Telephone [place] [phone] Kira Thayer MD [facility] [address] [place] [address] Social History Tobacco Use Types Packs/Day Years [...] encounter Miscellaneous Notes * Telephone Encounter - Kira Thayer MD - 12/14/2022 2:01 PM EDT Received results of overnight oxygen testing performed on 2 L NC O2, and called pt to review. Data capture was short, only [id number], but she confirms she was asleep during this time. Lowest EoC1whs 91% while on home 2L NC O2. This, combined with the ABG results showing improved CO2 (now 7.39/47) indicate that she does not have significant nocturnal hypoventilation at this time, and does not currently need nocturnal bipap. I reviewed this with her, and she will continue to use nocturnal 2L NC O2. She shared she has an appointment set up with [facility] Transplant team on 12/20. Kira Thayer MD documented in this encounter Plan of Treatment Upcoming Encounters Date Type Department Care Team (Late st Contact Info) Description 08/27/2024 4:00 PM EDT Office [place] [address] Kira Thayer MD [facility] [address] [place] [address] documented as of this encounter Visit Diagnoses Not on filedocumented in this encounter Care Teams Manufacturing Engineer Paint Relationship Specialty Start Date End Date Belkys Bundy DO [address] [place] [address] PCP - General Family Medicine 03/21/19 documented as of this encounter
--- OUTSIDE RECORDS SUMMARY | 2024-03-29 08:12 | XMS_ITS | Encounter Summary ---
Author Organization [facility] [place] [address] Care Team Providers Care Digital Coordinator Name Role Phone Belkys Bundy Primary Care Provider +1- [phone] Encounter Details Date Type Department Care Team (Late st Contact Info) Description 06/15/2023 [place] [phone] Millicent Valles Social History Tobacco Use Types Packs/Day Years [...] encounter Miscellaneous Notes * Telephone Encounter - Millicent Valles - 06/15/2023 5:07 PM EST Copied from [facility] #[id number]. Topic: Specialty Dept CRMs - Appointment Needed >> Jun 10, 2023 1:16 PM Vladislav Trinidad wrote: Appt Needed Specialist Kira Thayer MD Relationship (if other than patient-full name): Appt. Type Needed: FUV Reason for Visit: Jessie Sanchez called to cancel and reschedule for 07/25/[address] Thayer. This agent canceled the appointment but was unable to find availability to offer. documented in this encounter Plan of Treatment Upcoming Encounters Date Type Department Care Team (Late st Contact Info) Description 08/27/2024 4:00 PM EDT Office [place] [address] Kira Thayer MD [facility] [place] [address] documented as of this encounter Visit Diagnoses Not on filedocumented in this encounter Care Teams Digital Coordinator Relationship Specialty Start Date End Date Belkys Bundy DO [address] [place] [address] PCP - General Family Medicine 03/21/19 documented as of this encounter
--- OUTSIDE RECORDS SUMMARY | 2024-03-29 08:12 | XMS_ITS | Clinical Summary ---
Author Organization [facility] Address [facility] [place] [address] Care Team Providers Care Blending Coordinator Name Role Phone Belkys Bundy DO Primary Care Provider +1- [phone] Allergies Active Allergy Reactions Criticality Noted Date Comments Atomoxetine High 08/27/2022 Sertraline Hcl High 08/27/2022 Other Reaction(s): worsens depression Vancomycin Rash Medium 02/16/2011 Sertraline Other (See Comments) High 02/16/2011 agitation Medications Medication Sig Dispensed Refills Start Date End Date Status IBUPROFEN ORAL 05/28/2013 Active DILTiazem (CARDIZEM) 30 mg tablet 04/12/2013 Active omeprazole (PRILOSEC) 20 mg Capsule, Delayed Release(E.C.) Take 20 mg by mouth daily as needed. Active docusate sodium (COLACE) 100 mg Capsule Take 100 mg by mouth 3 times daily as needed for Constipation. Active buPROPion (WELLBUTRIN SR) 150 mg Tablet Sustained Release Take 150 mg by mouth 2 times daily. Active citalopram (CELEXA) 40 mg Tablet Take 40 mg by mouth every morning. Active mirabegron (MYRBETRIQ ORAL) Take 20 mg by mouth daily. Active ipratropium-albutero L (DUONEB) 0.5 mg-3 mg(2.5 mg base)/3 mL Solution for Nebulization USE 1 VIAL VIA NEBULIZER 4 TIMES A DAY NEEDED FOR SHORTNESS OF BREATH/ WHEEZING 02/24/2019 Active cetirizine (ZyrTEC) 10 mg Tablet Take 10 mg by mouth daily. Active fluticasone propionate (FLONASE) 50 mcg/actuation [place], Suspension 02/01/2020 Active atorvastatin (Lipitor) 20 mg Tablet 05/20/2020 Active cyclobenzaprine (Flexeril) 10 mg Tablet Take 10 mg by mouth as needed. 11/28/2019 Active dicyclomine (BENTYL) 20 mg Tablet TAKE 1 TABLET BY MOUTH TWICE A DAY IF NEEDED FOR STOMACH UPPSET 01/14/2020 Active montelukast (Singulair) 10 mg Tablet Take 1 tablet by mouth nightly. 30 tablet 11 07/16/2020 Active benzonatate (TESSALON) 200 mg Capsule Take 1 capsule by mouth 3 times daily as needed for Cough. 30 capsule 1 01/09/2021 Active albuteroL 90 mcg/actuation HFA Aerosol InhalerIndications:C hronic obstructive pulmonary disease, unspecified COPD type Inhale 2 puffs into the lungs every 4 hours as needed for Wheezing or Shortness of Breath. Use with spacer 36 g 5 06/03/2021 Active inhalational spacing device (Ricci Aerosol [place] Enhancer) Spacer .MEDSUPPLY 02/01/2020 Active levothyroxine (Synthroid) 100 mcg Tablet Take 100 mcg by mouth nightly. 06/11/2020 Active linaCLOtide (Linzess) 72 mcg Capsule Take 72 mcg by mouth as needed. Take 30 minutes before meal 05/09/2020 Active guaiFENesin ER (Mucinex) 600 mg ER 12 hr tablet Take 600 mg by mouth Twice daily as needed. 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 D, very severe INHALE 1 PUFF BY MOUTH ONCE DAILY 3 each 3 11/16/2023 Active Active Problems Problem Noted Date Diagnosed Date Chronic obstructive pulmonary disease 05/02/2020 Supplemental oxygen dependent 05/02/2020 Tobacco use 05/02/2020 Pruritus 08/27/2011 Encounters Date Type Department Care Team Description 03/23/2024 [place] [address] Emily Starr RN 03/22/2024 [place] [address] Tasha Obrien RN 03/06/2024 [place] [address] Emily Starr RN 03/02/2024 [place] [address] Emily Starr RN Disability Paperwork 03/02/2024 [place] [address] Millicent Valles Rachel 03/01/2024 [place] [address] Yesenia Nino RN 02/27/2024 4:30 PM EST [place] [address] Kira Thayer MD COPD, very severe; Supplemental oxygen dependent; Cigarette nicotine dependence in remission; Hypercarbia 02/27/2024 Travel 02/08/2024 [place] [address] Emily Starr RN Infection (Covid-19) from Last 3 Months Immunizations Name Administration Dates Next Due Covid-19 Monovalent (Moderna Spikevax) 12yrs+ ([id number]) 09/15/2021 Covid-19, Unknown Formulation 01/13/2023 ,02/12/2021,08/03/2020,2020 Hepatitis A/B (TwinRix) 07/12/2023,06/14/2023 Influenza Quadrivalent, Pres ervative Free 02/07/2023,04/20/2022,02/04/2021,2019,02/15/2018,01/20/2016,01/27/2015,0 12/10/2013,12/25/2012 MMR Vaccine LIVE 07/22/2023 Pneumococcal 20-Valent Conju gate (Prevnar 20) 06/09/2023 Pneumococcal Vaccine, Unspec ified Formulation 02/11/2012 Tdap (Adacel, Boostrix) 10/27/2021,02/11/2012 Zoster Recombinant (ShingRix) 06/14/2023 Family History Medical History Relation Comments Thyroid Disease Brother 2 Chronic Obstructive Pulmonary Disease Father Hyperlipidemia Father Hypertension Father Chronic Obstructive Pulmonary Disease Mother Hyperlipidemia Mother Hypertension Mother Cancer Paternal Aunt lung cancer Asthma Sister 1 Thyroid Disease Sister 2 Relation Status Comments Brother 1 Alive Brother 2 Father Alive Mother Alive Paternal Aunt Sister 1 Alive Sister 2 Son Alive Social History Tobacco Use Types Packs/Day Years Used Date Smoking Tobacco: Former Cigarettes 0.5 15 0 11/23/2007 - 11/22/2022 Smokeless Tobacco: Never Tobacco Cessation:Counseling Given: Not Answered Comments:When smoking averaged 2 packs a day Alcohol Use Standard Drinks/Week Comments Yes 0 (1 standard drink = 0.6 oz pure alcohol) rare drink, one drink every few months Sex and Gender Information Value Date Recorded Sex Assigned at Female 06/09/2020 12:20 PM EST Gender Identity Not on file Sexual Orientation Straight 06/09/2020 12 :20 PM EST Last Filed Vital Signs Vital Sign Reading Time Taken Comments Blood Pressure 141/82 02/27/2024 4:25 PM EST Pulse 89 02/27/2024 4:25 PM EST Temperature 36.4 ??C (97.6 ??F) 02/27/2024 4 :25 PM EST Respiratory Rate 19 02/27/2024 4:25 PM EST Oxygen Saturation 98% 02/27/2024 4:2 5 PM EST on O2 2 LPM pulse dose Inhaled Oxygen Concentration - - Weight 79.3 kg (174 lb 12.8 oz) 02/27/2024 4:25 PM EST Height 165.1 cm (5' 5) 02/27/2024 4:25 PM EST Body Mass Index 29.09 02/27/2024 4:25 PM EST Plan of Treatment Upcoming Encounters Date Type Department Care Team (Late st Contact Info) Description 08/27/2024 4:00 PM EDT [place] [address] Kira Thayer MD [facility] [place] [address] Health Maintenance Due Date Last Done Comments CT Colonography 1970 Colonoscopy 1970 Colorectal Cancer Screening 1970 FIT DNA 1970 FIT 1970 Sigmoidoscopy (10 year) with FIT yearly 1970 Sigmoidoscopy 1970 HIV screen 1988 Hepatitis C Screening 1988 HPV test 2000 PAP Smear 2000 Breast Cancer Share Decision Needed 2010 Breast Cancer screening 2010 Diabetes Screening (HgbA1C o r Glucose) 2010 Zoster vaccine (2 of 2) 08/09/2023 06/14/2023 Covid-19 Vaccine ( - 2023-2 5 season) 2023 01/13/2023, 09/15/2021, 02/12/2021, Additional history exists Influenza (Flu) vaccine (1 o f 1 - Influenza standard series) 12/11/2023 02/07/2023, 04/20/2022, 02/04/2021, Additional history exists Hepatitis B vaccine (0-59 yrs) (3) 12/15/20232023, 06/14/2023 Tetanus/Diphtheria/Pertussis Vaccines (3 - Td or Tdap) 10/28/2031 10/27/2021, 02/11/2012 Pneumococcal Vaccine: At-Ris k 5-64yrs Completed 06/09/2023, 02/11/2012 Care Teams Blending Coordinator Relationship Specialty Start Date End Date Belkys Bundy DO [address] [place] [address] PCP - General Family Medicine 03/21/19
--- OUTSIDE RECORDS SUMMARY | 2024-03-29 08:12 | XMS_ITS | Encounter Summary ---
Author Organization [facility] Address [facility] [place] [address] Care Team Providers Care Cutting And Splicing Supervisor Name Role Phone Belkys Bundy DO Primary Care Provider +1- [phone] Encounter Details Date Type Department Care Team (Latest Contact Info) Description 11/22/2022 Travel Social History Tobacco Use Types Packs/Day [...] 4:00 PM EDT Office [place] [address] Kira Thayer MD [facility] [place] [address] documented as of this encounter Visit Diagnoses Not on filedocumented in this encounter Care Teams Cutting And Splicing Supervisor Relationship Specialty Start Date End Date Belkys Bundy DO [address] [place] [address] PCP - General Family Medicine 03/21/19 documented as of this encounter
--- OUTSIDE RECORDS SUMMARY | 2024-03-29 08:12 | XMS_ITS | Encounter Summary ---
Author Organization [facility] [place] [address] Care Team Providers Care Door Closer Name Role Phone Belkys Bundy Primary Care Provider +1- [phone] Encounter Details Date Type Department Care Team (Late st Contact Info) Description 11/23/2022 Telephone [place] [id number] Juanis Osullivan RT Social History Tobacco Use Types Packs/Day Years [...] encounter Miscellaneous Notes * Telephone Encounter - Juanis Osullivan RT - 11/23/2022 1:38 PM EDT [facility] called and they are requesting an updated overnight pulse oximetry order that includes the O2 lpm the test will be performed on. documented in this encounter Plan of Treatment Upcoming Encounters Date Type Department Care Team (Late st Contact Info) Description 08/27/2024 4:00 PM EDT Office [place] [address] Kira Thayer MD [facility] [place] [address] documented as of this encounter Visit Diagnoses Not on filedocumented in this encounter Care Teams Door Closer Relationship Specialty Start Date End Date Belkys Bundy DO [facility] [place] [address] PCP - General Family Medicine 03/21/19 documented as of this encounter
--- OUTSIDE RECORDS SUMMARY | 2024-03-29 08:12 | XMS_ITS | Encounter Summary ---
[place] [address] Care Team Providers Care Net Mvc Developer Name Role Phone Belkys Bundy Primary Care Provider +1- [phone] Reason for Visit * Reason Onset Date Comments Infection 02/08/2024 Covid-19 Encounter Details Date Type Department Care Team (Late st Contact Info) Description 02/08/2024 [place] [phone] Emily Starr RN Infection (Covid-19) Social History Tobacco Use Types Packs/Day Years [...] Telephone Encounter - Emily Starr RN - 02/08/2024 12:32 PM EDT Reason for Call: Infection (Covid-19) Past medical history which may be related to reason for call: Very Severe COPD, Supplemental OxygenUsage, Cigarette Nicotine Dependence in Remission. Last Covid Vaccination was on 01/14/2024 per chart review. Nursing Assessment: Patient relays that she tested herself yesterday for Covid-19, and had a positive result. She believes that she has had this for a while, noting that her symptoms initially started on 01/31/2024. Shewent to [place] on 02/01/2024, noting increased coughing and hacking. Positive Symptoms: + Cough + Expectorating green secretions + Nasally voice, per patient + Feels like I have a cold. + Sinus congestion + Post-nasal drip + Dysgeusia + Poor PO intake, good fluid intake. + Swollen labia majora, happens when she gets sick. Denies: - Change of smell - Fever - Night sweats Notes: Junior has taken off transplant list for 10 days due to infection. Patient notes that she is unaware of SOB, as she has not been exerting herself. She has been walking around her home, but not going for time on her treadmill. Medication and Therapy Review: Patient prescribed Albuterol rescue inhaler and Trelegy Ellipta. Patient past window for Paxlovid, but states that she cannot tolerate this medication. Patient states that she was planning on having Covid Booster and Flu Vaccine, to be done at PCP office. OTC Medications: Cough drops only. Patient notes that she has to be careful with OTC medications due to transplant listing. Pain with swollen labia /10. Bag balm applied on it yesterday, pain with light palpation. She notes that she will be speaking to her PCP in regards to this. She notes this occurs every time she getssick. Disposition: Patient to present to PCP's office for follow up on 02/09/2024. Forwarding to Dr. Diehl update. Worsening Symptoms: Worsening SOB, oxygen desaturation, confusion. Call 911 immediately. Utilization of Albuterol rescue inhaler. Patient care advice summary and review: Patient to follow up with PCP's office on 02/09/2024. Requested patient call to Pulmonary to update with any worsening symptoms. * Telephone Encounter - Emily Starr RN - 02/08/2024 12:29 PM EDT Copied from [facility] #[id number]. Topic: Specialty Dept CRMs - Triage >> Feb 08, 2024 10:33 AM Joseline Santana wrote: Triage Message Specialist: jackie Relationship (if other than patient-full name): self Symptom: Covid symptoms Has patient experienced symptom before unknown If patient has experienced symptom before, when was the last time this occurred n/a Is patient currently having symptom yes When did symptom begin Additional Comments: Patient was calling to advise and see if there was anything in particular she should do documented in this encounter Plan of Treatment Upcoming Encounters Date Type Department Care Team (Late st Contact Info) Description 08/27/2024 4:00 PM EDT [place] [address] Kira Thayer MD [facility] [place] [address] documented as of this encounter Visit Diagnoses Not on filedocumented in this encounter Care Teams Net Mvc Developer Relationship Specialty Start Date End Date Belkys Bundy DO [address] [place] [address] PCP - General Family Medicine 03/21/19 documented as of this encounter
--- OUTSIDE RECORDS SUMMARY | 2024-03-29 08:12 | XMS_ITS | Encounter Summary ---
Author Organization [facility] Address [facility] [place] [address] Care Team Providers Care Management Developer Name Role Phone Belkys Bundy Primary Care Provider +1- [phone] Encounter Details Date Type Department Care Team (Late st Contact Info) Description 06/20/2023 2:00 PM EDT Office [place] [address] Kira Thayer MD [facility] [place] [address] COPD, very severe; Supplemental oxygen dependent; Cigarette nicotine dependence in remission Social History Tobacco Use Types Packs/Day Years [...] Sign Reading Time Taken Comments Blood Pressure 117/87 06/20/2023 1:42 PM EDT Pulse 98 06/20/2023 1:42 PM EDT Temperature 36.2 ??C (97.2 ??F) 06/20/2023 1 :42 PM EDT Respiratory Rate 17 06/20/2023 1:42 PM EDT Oxygen Saturation 98% 06/20/2023 1:4 2 PM EDT On 2L Pulse Flow O2 Inhaled Oxygen Concentration - - Weight 72.6 kg (160 lb) 06/20/2023 1:42 PM EDT Height 162.6 cm (5' 4) 06/20/2023 1:42 PM EDT Body Mass Index 27.46 06/20/2023 1:42 PM EDT documented in this encounter Progress Notes * Kira Thayer MD - 06/20/2023 2:00 PM EDT Images from the original note were not included. [facility] Section of Pulmonary and Critical Care Medicine Outpatient Consultation Date of Encounter: 06/20/2023 Reason for Evaluation: Ms. Jessie Sanchez returns [...] was last seen in pulmonary clinic in Jan 2023. She is accompanied by her . Mrs. Sanchez reports her breathing is fluctuating a fair amount, not clear why; exertional dyspnea can be very limiting, prevent her from doing more than walking arcoss a room some days, though other days are better; was able to walk into the building today. She has some chronic cough and chest congestion, still improved overall after quitting smoking. Gets chest tightness with exertion. No chest pain or new edema. No fevers or recent infections. No hemoptysis. No recent predsnione. She is working on walking for exercise, hasn't heard yet from pulm rehab program at [facility] but still interested. She was seen by the lung Transplant Team at [facility] for initial transplant assessment 12/2022; she has been abstinent from cigarettes for 6 months and is now moving forward with full transplant assessment. Will do variety of testing at her visit with them later this month. Remains on trelegy daily. Uses albuterol MDI in the morning before she takes her trelegy, occasionally PRN later in the day. Home O2 prescribed with activity and at night; 3L at rest, 3 pulse with activity, 2L at night, sometimes doesn't feel she needs it at rest, sats are not low when she checks at home at rest. Zyrtec and singulair are working well for allergic rhinitis. As you will recall, did not feel morphine PRN for dyspnea was helpful in the past (made her feel out of it.) Current Medications at Start of Encounter: Outpatient Medications Prior to Visit Medication Sig Dispense Refill guaiFENesin ER (Mucinex) 600 mg ER 12 hr tablet Take 600 mg by mouth Twice daily as needed. Only takes when really needs them plyhrtkhdqf-pmilafmzugjy-obufbzjxzv (Trelegy Ellipta) 200-62.5-25 mcg Inhale 1 puff into the lungs daily. 28 each 11 predniSONE (Deltasone) 20 mg tablet TAKE TWO TABLETS BY MOUTH EVERY DAY NEEDED FOR COPD EXACERBATION; ALERT CHILDHOOD TEACHER AND PCP inhalational spacing device (Ricci Aerosol Hancock Enhancer) Spacer .MEDSUPPLY levothyroxine (Synthroid) 100 mcg [...] tablet 11 fluticasone propionate (FLONASE) 50 mcg/actuation [place], Suspension atorvastatin (Lipitor) 20 mg Tablet cyclobenzaprine [...] IBUPROFEN ORAL DILTiazem (CARDIZEM) 30 mg tablet valACYclovir (Valtrex) 1 gram tablet TAKE ONE TABLET BY MOUTH THREE TIMES A DAY; START FOR SHINGLES traZODone (DESYREL) 100 mg Tablet Take 200 mg by mouth nightly. No facility-administered medications prior to visit. Review of Systems: A focused ROS was completed and was positive as noted in HPI, and otherwise negative. Physical Examination: BP 117/87 (BP Location (NBP): Left arm, Patient Position: Sitting, BP Cuff Sizes: Adult (25-34 cm)) Pulse 98 Temp 36.2 ??C (97.2 ??F) (Temporal) Resp 17 Ht 162.6 cm (5' 4) Wt 72.6 kg (160 lb) SpO2 98% Comment: On 2L Pulse Flow O2 BMI 27.46 kg/m?? NAD, alert, conversational, comfortable, well appearing MMM, neck supple, no adenopathy Regular rate, no murmur Normal WOB at rest, lungs are diminished, no wheezing, no crackles No LE edema She is ambulatory Pulmonary Function Test Results: 06/03/2021: The FEV1 [...] the FEV1 remains below herbaseline from 2021. Overnight oxygen testing 12/2022 on 2L NC shows lowest SPO2 91%. Labs, Microbiology and Imaging: I personally reviewed relevant laboratory, microbiologic and radiology results which were significant for: Chest CT 10/25/2022: stable small pulmonary nodules (4-5 mm, stable since at least 2019), resolutionof prior patchy infiltrate seen 07/2022, trace pericardial effusion decreased in size Bact resp culture 09/13/2022: mixed upper roxanne, many neutrophils, gram positive cocci seen but not cultured AFB sputum culture 09/13/2022: smear negative, culture NGTD Bacterial respiratory culture 10/18/2022: mixed upper respiratory roxanne, many neutrophils, few squams VBG 10/2022: 7.35/56/42 ABG 11/2022: 7.39/47 EKG 09/09/2021: NSR, no acute changes, QTc 454 A1AT level in 2012 was 146 (genotype results NEGATIVE for S or Z allele) Immunization History: Flu vaccine: received 2022 flu vaccine in 01/2023 COVID-19 vaccine: has had primary and boosters Pneumovax: Impression and Recommendations: Jessie Sanchez is a 52 y.o. woman with emphysema and severe COPD with longstanding oxygen dependence, very severe airflow obstruction, stable small pulmonary nodules, allergies, CHF, controlled GERD, history of tobacco use (quit Nov 2022), history of recurrent respiratory exacerbations including acute hypoxic/hypercarbic respiratory failure 2/2 flu infection with COPD exacerbation in 2021 and 2/2 CHF exacerbations, and protracted COPD exacerbation with associated decline in lung function summer 2022 (FEV1 most recently 22% predicted), who has has improved daily respiratory symptoms and decrease in exacerbations after cessation of cigarette smoking. She is currently pursuing lung transplant evaluation at [facility] She will benefit from pulm rehab; we have previously placed a referral to this program at [facility] in [facility], and she will call them now to see if she can enroll. Will continue trying to walk at home before enrollment. She should continue on nocturnal 2L NC O2. She has previously demonstrated a need for supplemental oxygen 2-3L at rest and 3LPM or 4-5 pulse dose with activity; she may titrate a little at home based on Goal SPO2 >/=88% including during activity, not needed oxygen as much at rest now as before. She remains on triple inhaled therapy with high dose trelegy, and is appropriately using albuterol and duonebs PRN. Action plan for acute exacerbations includes prednisone 20-40 mg daily for short courses. She is unable to tolerate chronic azithromycin due to GI side effects, and recent trial of short azithromycin course was not very helpful for symptoms. She has a flutter valve for use PRN with exacerbations; mucous burden is currently manageable. She has been disabled beginning around 2012 due to severe COPD with hypoxic respiratory failure on chronic supplemental O2; I completed updated disability paperwork in July 2022 documenting continued pulmonary limitations and care needs. She has quit smoking as of 11/2022, and remains completely abstinent. She will qualify for lung cancer screening when she turns 55. No specific f/u currently indicated for stable small pulm nodules seen [id number]. We will hold off on repeat PFTs here given these are anticipated to be done at her next transplant assessment visit. Summary Recommendations: - pulm rehab encouraged, she will call program at [facility] to try to enroll - continue trelegy inhaler 200 daily, albuterol MDI with spacer and duonebs PRN - continue singulair/zyrtec/flonase daily - exacerbation action plan: Prednisone 20-40 mg daily x 5 days, rx provided to keep on hand - continue supplemental NC O2: up to 2-3LPM at rest, 2L qHS, 3 LPM continuous or 3-5 pulse with activity on POC, goal SPO2>/=88% - follow-up with lung transplant team is scheduled late June 2023 Follow-up with in-office visit in 6 months Thank you for involving me in Ms. Sanchez's care. Please feel free to contact me with any further questions or concerns. Kira Thayer MD [facility] [address] Dept: [phone] Loc: [phone] documented in this encounter Plan of Treatment Upcoming Encounters Date Type Department Care Team (Late Contact Info) Description 08/27/2024 4:00 PM EDT Office [place] [phone] Kira Thayer MD [facility] DR PULMONARY MEDICINE [place] [phone] documented as of this encounter Visit Diagnoses Diagnosis COPD, very severe Chronic airway obstruction, not elsewhere classified Supplemental oxygen dependent Dependence on supplemental oxygen Cigarette nicotine dependence in remission Tobacco use disorder documented in this encounter Care Teams Management Developer Relationship Specialty Start Date End Date Belkys Bundy DO [address] [place] [address] PCP - General Family Medicine 03/21/19 documented as of this encounter
--- OUTSIDE RECORDS SUMMARY | 2024-03-29 08:12 | XMS_ITS | Encounter Summary ---
[place] [address] Care Team Providers Care Copy Director Name Role Phone Belkys Bundy DO Primary Care Provider +1- [phone] Reason for Referral * Rehabilitation (Routine) - Authorized Specialty Diagnoses / Procedures Referred By Contact Referred To Contact Pulmonary Rehabilitation / Rehabilitation Diagnoses COPD, very severe Kira Thayer MD [facility] [address] [place] [address] Referral ID Status Reason Start Date Expiration Date Visits Requested Visits Authorized [id number] Authorized Evaluate and Treat 02/27/2024 08/25/2024 36 36 Reason for Visit * Consultation (Routine) - Closed Specialty Diagnoses / Procedures Referred By Rossy levine Referred To Contact Pulmonology Diagnoses Solitary pulmonary nodule End stage COPD Dyspnea Emphysema, unspecified Other abnormalities of breathing Awaiting organ transplant status GEN PULM Patient of Kira Thayer Pulm clearance for transplant Belkys Bundy DO [address] [place] [address] [facility] Pulmonology [address] [place] [id number] Referral ID Status Reason Start Date Expiration Date Visits Re quested Visits Authorized [id number] Closed 07/22/2023 07/21/2024 1 1 Encounter Details Date Type Department Care Team (Late st Contact Info) Description 02/27/2024 4:30 PM EST [facility] [place] [phone] Kira Thayer MD [facility] [place] [address] COPD, very severe; Supplemental oxygen dependent; Cigarette nicotine dependence in remission; Hypercarbia Social History Tobacco Use Types Packs/Day [...] Mass Index 29.09 02/27/2024 4:25 PM EST documented in this encounter Patient Instructions * Patient Instructions* Kira Thayer MD - 02/27/2024 4:30 PM EST Get your flu vaccine BILL and your covid booster soon too. documented in this encounter Progress Notes * Kira Thayer MD - 02/27/2024 4:30 PM EST Images from the original note were not included. [facility] Section of Pulmonary and Critical Care Medicine Outpatient Consultation Date of Encounter: 02/27/2024 Reason for Evaluation: Ms. Jessie Sanchez returns to the pulmonary clinic for follow-up of COPD and chronic oxygen dependence. I independently interviewed the patient, have examined the patient if this visit was conducted in the office and have reviewed available records. Dear Dr. Belkys Bundy, DO, As you know, Jessie Sanchez is a 53 y.o. female with emphysema and severe COPD with oxygen-dependence,allergies, and obesity, who was last seen in pulmonary clinic in June 2023. She is accompanied by her . Mrs. Sanchez reports she is doing very well; respiratory symptoms are pretty stable, a little better with regular exercise with a treadmill at home. She is still limited by the dyspnea in how much she can do, but tries to stay active. She found pulm rehab to be really helpful in the past and is interested in restarting this. She has not had any acute repsiratory flares in the past 6 months or need for prednisone during that time. Minimal baseline cough, congestion. No chest pain or hemoptysis. She did have covid19 infection a few weeks ago, felt very tired but did not notice much increase inrespiratory symptoms then. Didn't treat the covid infection with anything specific. She got called to [place] for transplantation in December, however the explanted lungs were not considered good enough for transplant so the surgery was cancelled. Remains on trelegy daily. Uses albuterol MDI in the morning before she takes her trelegy, occasionally PRN as well. Home O2 prescribed with activity and at night; 3L at rest, 3 pulse with activity, 2L at night. Zyrtec and singulair are working well for allergic rhinitis. As you will recall, did not feel morphine PRN for dyspnea was helpful in the past (made her feel out of it.) Current Medications at Start of Encounter: Outpatient Medications Prior to Visit Medication Sig Dispense Refill Trelegy Ellipta 200-62.5-25 mcg inhaler (DPI) INHALE 1 PUFF BY MOUTH ONCE DAILY 3 each 3 guaiFENesin ER (Mucinex) 600 mg ER 12 hr tablet Take 600 mg by mouth Twice daily as needed. Only takes when really needs them inhalational spacing device (Ricci Aerosol [place] Enhancer) Spacer .MEDSUPPLY levothyroxine (Synthroid) 100 mcg [...] tablet 11 fluticasone propionate (FLONASE) 50 mcg/actuation [place], Suspension atorvastatin (Lipitor) 20 mg Tablet cyclobenzaprine [...] IBUPROFEN ORAL DILTiazem (CARDIZEM) 30 mg tablet No facility-administered medications prior to visit. Review of Systems: A focused ROS was completed and was positive as noted in HPI, and otherwise negative. Physical Examination: BP 141/82 (BP Location (NBP): Right arm, Patient Position: Sitting, BP Cuff Sizes: Adult (25-34 cm)) Pulse 89 Temp 36.4 ??C (97.6 ??F) (Temporal) Resp 19 Ht 165.1 cm (5' 5) Wt 79.3 kg (174lb 12.8 oz) SpO2 98% Comment: on O2 2 LPM pulse dose BMI 29.09 kg/m?? NAD, alert, comfortable, MMM, neck supple, RRR without murmur, lungs quiet but otherwise clear, no edema, ambulatory Pulmonary Function Test Results: 06/03/2021: The [...] on 2L NC shows lowest SPO2 91%. Overnight oxygen testing 01/04/2024 on 2L NC now shows lowest SpO2 of 84%, 38 minutes with SPO2 </=88%. Labs, Microbiology and Imaging: I personally reviewed [...] squams VBG 10/2022: 7.35/56/42 ABG 11/2022: 7.39/47 ABG 06/30/2023: 7.29/58/142 A1AT level in 2013 was 146 (genotype results NEGATIVE for S or Z allele) CT chest 02/01/2024 ([facility]) report notes (images not available): IMPRESSION: Compared to CT chest dated July 01, 2023 1. Similar diffuse bronchial wall thickening. Similar emphysema. 2. Unchanged sub-6 mm pulmonary nodules. No new or enlarging nodules. Immunization History: Flu vaccine: received 2022 flu vaccine COVID-19 vaccine: has had primary and boosters Pneumovax: has had prevnar-20 Impression and Recommendations: Jessie Sanchez is a 53 y.o. woman with emphysema and severe COPD [...] in exacerbations after cessation of cigarette smoking. Overall this fall things have been stable. She is currently listed for lung transplantation at [facility]. She is ready to retry pulm rehab (wasn't able to do so due to scheduling after her last visit, but interested now.) New referral placed to [facility] pulm rehab. She is on supplemental O2; as of this visit now meets criteria for nocturnal bipap, discussed this and she was agreeable to bipap initiation. She has demonstrated a need for supplemental oxygen 2-3L at rest and 3LPM or 4-5 pulse dose with activity; she may titrate a little at home based on Goal SPO2 >/=88% including during activity (sometimes needs less.) She remains on triple inhaled therapy with high dose trelegy, and is appropriately using albuterol and duonebs PRN. Action plan for acute exacerbations includes prednisone 20-40 mg daily for short courses. She is unable to tolerate chronic azithromycin due to GI side effects with limited benefit from short courses in the past. She has a flutter valve for use PRN with exacerbations. She has been disabled beginning around 2012 due to severe COPD with hypoxic respiratory failure on chronic supplemental O2; I completed updated disability paperwork in July 2022 documenting continued pulmonary limitations and care needs. She has quit smoking as of 11/2022, and remains completely abstinent. She would qualify for lung cancer screening but is actively receiving frequent surveillance chest Cts via transplant team so we have not discussed screening directly. Summary Recommendations: - can call pulm rehab at [facility] to start, new referral also placed - continue trelegy inhaler 200 daily, albuterol MDI with spacer and duonebs PRN - continue singulair/zyrtec/flonase daily - exacerbation action plan: Prednisone 20-40 mg daily x 5 days, rx provided to keep on hand - continue supplemental NC O2: up to 2-3LPM at rest, 2L qHS, 3 LPM continuous or 3-5 pulse with activity on POC, goal SPO2>/=88% - actively engaged with lung transplant team - plan for nocturnal bipap initiation discussed, orders to be sent to home care company - updated flu vaccine and covid booster recommended Follow-up with in-office visit in 6 months Thank you for involving me in Ms. Sanchez's care. Please feel free to contact me with any further questions or concerns. MDM 4 I provided medical care services that are part of ongoing care for the patient's serious/complex condition. UPDATE FOLLOWING THIS VISIT: Jessie's reached out with the news that Jessie underwent lung transplantation on 02/29/2024, currently recovering in the ICU at [facility]. Given this, we will not send the bipap orders out as her new pulmonary status is likely to be much better and if all goes well she will not need bipap at home. [place] paperwork for her completed. MD Omari Hogue [facility] PULMONOLOGY AT [facility] [address] Dept: [phone] Loc: [phone] documented in this encounter Plan of Treatment Upcoming Encounters Date Type Department Care Team (Late st Contact Info) Description 08/27/2024 4:00 PM EDT Office [place] [address] Kira Thayer MD [facility] [address] [place] [address] Scheduled Referrals Name Type Priority Associated Diagnoses Orde r Schedule Referral to Pulmonary Rehab Outpatient Referral Routine COPD, very severe Ordered: 02/27/2024 documented as of this encounter Visit Diagnoses Diagnosis COPD, very severe Chronic airway obstruction, not elsewhere classified Supplemental oxygen dependent Dependence on supplemental oxygen Cigarette nicotine dependence in remission Tobacco use disorder Hypercarbia Other dyspnea and respiratory abnormality documented in this encounter Care Teams Copy Director Relationship Specialty Start Date End Date Belkys Bundy DO [address] [place] [address] PCP - General Family Medicine 03/21/19 documented as of this encounter
--- OUTSIDE RECORDS SUMMARY | 2024-03-29 08:12 | XMS_ITS | Encounter Summary ---
Author Organization [facility] Address [facility] [place] [address] Care Team Providers Care Tenant Relations Coordinator Name Role Phone Belkys Bundy Virginie MYRICK Primary Care Provider +1- [phone] Reason for Referral * Rehabilitation (Routine) - Closed Specialty Diagnoses / Procedures Referred By Contact Referred To Contact Pulmonary Rehabilitation / Rehabilitation Diagnoses COPD, very severe Kira Thayer MD [facility] [place] [address] Referral ID Status Reason Start Date Expiration Date V isits Requested Visits Authorized [id number] Closed Evaluate and Treat 02/07/2023 08/06/2023 1 1 Encounter Details Date Type Department Care Team (Late st Contact Info) Description 02/07/2023 9:30 AM EDT Office [place] [address] Kira Thayer MD [facility] [place] [address] COPD, very severe; Supplemental oxygen dependent; Immunization due; Cigarette nicotine dependence in remission Social History [...] Sign Reading Time Taken Comments Blood Pressure 91/70 02/07/2023 9:02 AM EDT Pulse 74 02/07/2023 9:02 AM EDT Temperature 35.8 ??C (96.5 ??F) 02/07/2023 9:02 AM ED T Respiratory Rate 16 02/07/2023 9:02 AM EDT Oxygen Saturation 98% 02/07/2023 9:02 AM EDT Inhaled Oxygen Concentration - - Weight 74 kg (163 lb 3.2 oz) 02/07/2023 9:02 AM EDT Height 166.1 cm (5' 5.39) 02/07/2023 9:02 AM ED T Body Mass Index 26.83 02/07/2023 9:02 AM EDT documented in this encounter Progress Notes * Kira Thayer MD - 02/07/2023 9:30 AM EDT Images from the original note were not included. [facility] Section of Pulmonary and Critical Care Medicine Outpatient Consultation Date of Encounter: 02/07/2023 Reason for Evaluation: Ms. Jessie Sanchez returns [...] was last seen in pulmonary clinic in November 2022. Following her last visit she was seen for initial visit by the Transplant Team at [facility] for initial transplant assessment 12/2022; they identified need to be abstinent from nicotine for 6 months before moving forward with full transplant assessment. They will see her back in 6months. She reports this was a very positive visit. Met primarily with a product development coordinator and learned a lot about the process. They are postponing any testing until she demonstrates 6 months nicotine-free. Mrs. Sanchez reports she is doing well! She is walking more, slowly but trying to increase this. She would like to redo pulm rehab now, [facility] would be closest program. She quit smoking 2.5 months ago! No longer using any nicotine replacement. No desire to restart/no cravings. She feels quitting smoking has significantly improved her daily respiratory symptoms. She had a minor cold recently, but only increased coughing a little. No change in dyspnea. Cough overall is much better after quitting smoking. Sputum production is relatively small. No hemoptysis, fevers, chest pain, or chest tightness. She has not had any recent exacerbations or need for prednisone. She does not feel she needs oxygen as much, sometimes not using it, hasn't checked sats much recently though (on or off of oxygen.) Remains on trelegy daily. Uses albuterol MDI [...] Prior to Visit Medication Sig Dispense Refill ouuesskbqhm-fhlvrkkdmhli-lcrqiwbvqt (Trelegy Ellipta) 200-62.5-25 mcg Inhale 1 puff into the lungs daily. 28 each 11 predniSONE (Deltasone) 20 mg tablet TAKE TWO TABLETS BY MOUTH EVERY DAY NEEDED FOR COPD EXACERBATION; ALERT QUALITY CONSULTANT AND PCP inhalational spacing device (Ricci Aerosol [place] Enhancer) Spacer .MEDSUPPLY levothyroxine (Synthroid) 100 mcg [...] tablet 11 fluticasone propionate (FLONASE) 50 mcg/actuation [place], Suspension atorvastatin (Lipitor) 20 mg Tablet cyclobenzaprine [...] IBUPROFEN ORAL DILTiazem (CARDIZEM) 30 mg tablet nicotine (Nicoderm CQ) 21 mg/24 hr Patch 24 hr Change 1 patch on the skin daily. (Patient not taking: Reported on 02/07/2023) 28 patch 5 potassium chloride (KLOR-CON) 20 mEq Packet Take 20 mEq by mouth 2 times daily. morphine IR (MSIR) 15 mg Tablet citalopram (CELEXA) 20 mg Tablet Take 20 mg by mouth nightly. No facility-administered medications prior to visit. Review of Systems: A focused ROS was completed and was positive as noted in HPI, and otherwise negative. Physical Examination: BP 91/70 Pulse 74 Temp 35.8 ??C (96.5 ??F) (Temporal) Resp 16 Ht 166.1 cm (5' 5.39) Wt 74 kg (163 lb 3.2 oz) SpO2 98% BMI 26.83 kg/m?? NAD, alert, conversational, comfortable, overall energetic and generally well-appearing MMM, neck supple, no adenopathy Regular rate, no murmur Normal WOB at rest, breath sounds still diminished but perhaps slightly improved from prior visit, no wheezing, no crackles No LE edema [...] History: Flu vaccine: received 2022 flu vaccine with this visit 01/2023 COVID-19 vaccine: has had primary and [...] 2022 (FEV1 most recently 22% predicted), who returns today reporting improving respiratory stamina and imp roving daily respiratory symptoms after cessation of cigarette smoking. This seems to be making a significant difference, and she remains committed to abstinence from tobacco. We pursued assessment for hypercarbia previously this fall, initially with testing showing compensated chronic hypercarbia, however subsequent ABG showed improvement to 7.39/47 and she does not currently need nocturnal NIV. She should continue on nocturnal 2L NC O2 (testing Nov 2022 confirmed this is sufficient to avoid severe hypoxia.) She has previously demonstrated a need for supplemental oxygen 2-3L at rest and 3LPM or 4-5 pulse dose with activity; I encouraged her to continue using this with activity. She will check her oxygen more often at home to help determine whether her oxygen needs are decreasing (she feels they are.) Goal SPO2 >/=88% including during activity. She remains on triple inhaled therapy with [...] flutter valve for use PRN with exacerbations; does not currently feel this is necessary every day. Increased exercise encouraged; she is now interested in restarting pulmonary rehab, referral is being placed to [facility]. She has been disabled beginning around 2012 due to severe COPD with hypoxic respiratory failure on chronic supplemental O2; I completed updated disability paperwork in July 2022 documenting continued pulmonary limitations and care needs. She has quit smoking as of 11/2022, and will qualify for lung cancer screening when she turns 55. Nospecific f/u currently indicated for stable small pulm nodules seen [id number]. She is very motivated to move forward with lung transplant evaluation with [facility]; she will see them again around , at which time they anticipate moving forward with pre-transplant testing if she has remained abstinent from smoking for 6 months. She is on track for this. We will hold off on repeat PFTs here given these are anticipated to be done at her next transplant assessment visit. Summary Recommendations: - pulm rehab referral placed, to go to [facility] - continue trelegy inhaler 200 daily, albuterol MDI with spacer and duonebs PRN - continue singulair/zyrtec/flonase daily - exacerbation action plan: Prednisone 20-40 mg daily x 5 days - continue supplemental NC O2: 2-3LPM at rest, 2L qHS, 3 LPM continuous with activity or 3 pulse atrest/4-5 pulse with activity on POC, goal SPO2>/=88% - follow-up with lung transplant team around May-June 2023 - flu vaccine received with this visit Follow-up with in-office visit in 5 months Thank you for involving me in Ms. Sanchez's care. Please feel free to contact me with any further questions or concerns. I personally spent 25 minutes of this encounter with the patient discussing their pulmonary diseaseand treatment recommendations as outlined in my assessment and plan above. This visit involved a total of 33 minutes of clinical time on day of visit. Kira Thayer MD [facility] PULMONOLOGY AT [facility] [address] Dept: [phone] Loc: [phone] documented in this encounter Plan of Treatment Upcoming Encounters Date Type Department Care Team (Late st Contact Info) Description 08/27/2024 4:00 PM EDT Office [place] [address] Kira Thayer MD [facility] [place] [address] Scheduled Referrals Name Type Priority Associated Diagnoses Orde r Schedule Referral to Pulmonary Rehab Outpatient Referral Routine COPD, very severe Ordered: 02/07/2023 documented as of this encounter Visit Diagnoses Diagnosis COPD, very severe Chronic airway obstruction, not elsewhere classified Supplemental oxygen dependent Dependence on supplemental oxygen Immunization due Need for prophylactic vaccination and inoculation against unspecified single disease Cigarette nicotine dependence in remission Tobacco use disorder documented in this encounter Care Teams Tenant Relations Coordinator Relationship Specialty Start Date End Date Belkys Bundy DO [address] [place] [address] PCP - General Family Medicine 03/21/19 documented as of this encounter
--- OUTSIDE RECORDS SUMMARY | 2024-03-29 08:12 | XMS_ITS | Encounter Summary ---
Author Organization [facility] Address [facility] [place] [address] Care Team Providers Care Terrazzo Mechanic Helper Name Role Phone Belkys Bundy DO Primary Care Provider +1- [phone] Encounter Details Date Type Department Care Team (Latest Contact Info) Description 02/27/2024 Travel Social History Tobacco Use Types Packs/Day [...] 4:00 PM EDT [place] [address] Kira Thayer MD [facility] [place] [address] documented as of this encounter Visit Diagnoses Not on filedocumented in this encounter Care Teams Terrazzo Mechanic Helper Relationship Specialty Start Date End Date Belkys Bundy DO [address] [place] [id number] PCP - General Family Medicine 03/21/19 documented as of this encounter
--- OUTSIDE RECORDS SUMMARY | 2024-03-29 08:12 | XMS_ITS | Encounter Summary ---
Author Organization [facility] Address [facility] [place] [address] Care Team Providers Care Forest Logistics Manager Name Role Phone Belkys Bundy DO Primary Care Provider +1- [phone] Encounter Details Date Type Department Care Team (Latest Contact Info) Description 02/07/2023 Travel Social History Tobacco Use Types Packs/Day [...] 4:00 PM EDT [place] [address] Kira Thayer MD [facility] [place] [address] documented as of this encounter Visit Diagnoses Not on filedocumented in this encounter Care Teams Forest Logistics Manager Relationship Specialty Start Date End Date Belkys Bundy DO [address] [place] [address] PCP - General Family Medicine 03/21/19 documented as of this encounter
--- OUTSIDE RECORDS SUMMARY | 2024-03-29 08:12 | XMS_ITS | Encounter Summary ---
Author Organization [facility] [address] Care Team Providers Care Scientific Recruiter Name Role Phone Belkys Bundy DO Primary Care Provider +1- [phone] Encounter Details Date Type Department Care Team (Late st Contact Info) Description 03/06/2024 Telephone [place] [address] Emily Starr RN Social History Tobacco Use [...] Encounter - Emily Starr RN - 03/06/2024 1:32 PM EST RN called back to [facility], and was met with unidentified voicemail. JACKIE updating that message had been received and would be sent to Dr. Thayer. * Telephone Encounter - Emily Starr RN - 03/06/2024 1:31 PM EST Copied from CRM #[id number]. Topic: Specialty Dept CRMs - Generic Call >> Mar 06, 2024 10:30 AM Alyx Black wrote: Specialist: Kira Thayer Relationship (if other than patient-full name): Suleiman- Reason for Call: Suleiman wants to let the provider know that patient is doing really well and alert after lung Transplant and Suleiman can be reached anytime if needed at . documented in this encounter Plan of Treatment Upcoming Encounters Date Type Department Care Team (Late st Contact Info) Description 08/27/2024 4:00 PM EDT Office [place] [address] Kira Thayer MD [facility] [place] [address] documented as of this encounter Visit Diagnoses Not on filedocumented in this encounter Care Teams Scientific Recruiter Relationship Specialty Start Date End Date Belkys Bundy DO [address] [place] [address] PCP - General Family Medicine 03/21/19 documented as of this encounter
--- OUTSIDE RECORDS SUMMARY | 2024-03-29 08:12 | XMS_ITS | Encounter Summary ---
Author Organization [facility] Address [facility] [place] [address] Care Team Providers Care Pile Operator Name Role Phone Belkys Bundy DO Primary Care Provider +1- [phone] Encounter Details Date Type Department Care Team (Late st Contact Info) Description 07/26/2023 [place] [address] Kira Thayer MD [facility] [place] [address] Social History Tobacco Use Types Packs/Day Years [...] Progress Notes * Kira Thayer MD - 07/26/2023 4:27 PM EDT Received fax from PCP Dr. Bundy with question about qualifying her for colonography, stemming from a transplant team request for colon cancer screening. Not clear from fax whether the decision to pursue colonography is based on transplant team recommendation to avoid colonoscopy (which would in volve anesthesia.) I do not have any experience pursuing colonography or direct information from her transplant team on this request. I have called her PCP and left a message requesting she call so we can discuss her question about how to move forward with this. Kira Thayer MD Update: Spoke with Dr. Bundy; she will reach out to transplant team to clarify if they specified colonography vs colonoscopy with anesthesia, and if they recommend colonography she will request their input on how to get this approved. Kira Thayer MD documented in this encounter Plan of Treatment Upcoming Encounters Date Type Department Care Team (Late st Contact Info) Description 08/27/2024 4:00 PM EDT [place] [address] Kira Thayer MD [facility] [place] [address] documented as of this encounter Visit Diagnoses Not on filedocumented in this encounter Care Teams Pile Operator Relationship Specialty Start Date End Date Belkys Bundy DO [address] [place] [address] PCP - General Family Medicine 03/21/19 documented as of this encounter
--- OUTSIDE RECORDS SUMMARY | 2024-03-29 08:12 | XMS_ITS | Encounter Summary ---
Author Organization [facility] [place] [address] Care Team Providers Care Mold Maker Name Role Phone Belkys Bundy Primary Care Provider +1- [phone] Encounter Details Date Type Department Care Team (Late st Contact Info) Description 11/22/2022 Telephone [place] [phone] Juanis Osullivan RT Social History Tobacco Use [...] Telephone Encounter - Juanis Osullivan RT - 11/22/2022 11:21 AM EDT Faxed overnight pulse oximetry order, [facility] to [facility] 10:50 am. documented in this encounter Plan of Treatment Upcoming Encounters Date Type Department Care Team (Late st Contact Info) Description 08/27/2024 4:00 PM EDT Office [place] [address] Kira Thayer MD [facility] [address] [place] [address] documented as of this encounter Visit Diagnoses Not on filedocumented in this encounter Care Teams Mold Maker Relationship Specialty Start Date End Date Belkys Bundy DO [address] [place] [address] PCP - General Family Medicine 03/21/19 documented as of this encounter
--- OUTSIDE RECORDS SUMMARY | 2024-03-29 08:12 | XMS_ITS | Encounter Summary ---
[place] [address] Care Team Providers Care Stopper Maker Helper Name Role Phone Belkys Bundy Primary Care Provider +1- [phone] Reason for Visit * Reason Onset Date Comments Oxygen Dependence 11/25/2022 Overnight Puls e Oximetry Testing Encounter Details Date Type Department Care Team (Late st Contact Info) Description 11/25/2022 [place] [phone] Emily Starr RN Oxygen Dependence (Overnight Pulse Oximetry Testing) Social History Tobacco Use Types Packs/Day Years [...] Encounter - Emily Starr RN - 11/25/2022 1:43 PM EDT Faxed completed overnight pulse oximetry testing requsition, signed by Dr. Thayer, to [facility]. Attached to this was the following items: Patient Demographics This covered the following items: Overnight on 2 LPM Supplemental O2 Fax submission confirmation time stamped for 11/25/2022 @ 9965. 6 pages with cover sheet. documented in this encounter Plan of Treatment Upcoming Encounters Date Type Department Care Team (Late st Contact Info) Description 08/27/2024 4:00 PM EDT [place] [address] [facility] [place] [address] documented as of this encounter Visit Diagnoses Not on filedocumented in this encounter Care Teams Stopper Maker Helper Relationship Specialty Start Date End Date Belkys Bundy DO [address] [place] [address] PCP - General Family Medicine 03/21/19 documented as of this encounter
--- OUTSIDE RECORDS SUMMARY | 2024-03-29 08:12 | XMS_ITS | Encounter Summary ---
[place] [address] Care Team Providers Care Utility Aircrewman Name Role Phone Belkys Bundy DO Primary Care Provider +1- [phone] Reason for Referral * Allergy Testing (Routine) - Authorized Specialty Diagnoses / Procedures Referred By Rossy levine Referred To Contact Allergy Diagnoses Allergy status to other antibiotic agents Adverse effect of other systemic antibiotics, initial encounter Belkys Bundy DO [address] [place] [address] [facility] [address] [place] [address] Referral ID Status Reason Start Date Expiration Date Visits Requested Visits Authorized [id number] Authorized Consult, Test & Treat PCP Updated and/or Approved 09/21/2023 09/20/2024 6 6 Encounter Details Date Type Department Care Team (Latest Contact Info) Description 09/21/2023 Transcribe Orders eDH Incoming Referrals [phone] Belkys Bundy DO [address] [place] [id number] Allergy status to other antibiotic agents; Adverse effect of other systemic antibiotics, initial encounter Social History Tobacco Use Types Packs/Day Years [...] PM EDT Office [place] [address] Kira Thayer MD [facility] [place] [address] Scheduled Referrals Name Type Priority Associated Diagnoses Orde r Schedule Referral to Allergy Outpatient Referral Routine Allergy status to other antibiotic agents Adverse effect of other systemic antibiotics, initial encounter Ordered: 09/21/2023 documented as of this encounter Visit Diagnoses Diagnosis Allergy status to other antibiotic agents Adverse effect of other systemic antibiotics, initial encounter documented in this encounter Care Teams Utility Aircrewman Relationship Specialty Start Date End Date Belkys Bundy DO [address] [place] [address] PCP - General Family Medicine 03/21/19 documented as of this encounter
--- OUTSIDE RECORDS SUMMARY | 2024-03-29 08:12 | XMS_ITS | Encounter Summary ---
Author Organization [facility] [place] [address] Care Team Providers Care Web Application Developer Name Role Phone Belkys Bundy DO Primary Care Provider +1- [phone] Encounter Details Date Type Department Care Team (Latest Contact Info) Description 10/25/2022 Travel Social History Tobacco Use Types Packs/Day [...] 4:00 PM EDT Office [place] [address] Kira Thayer MD [facility] [address] documented as of this encounter Visit Diagnoses Not on filedocumented in this encounter Care Teams Web Application Developer Relationship Specialty Start Date End Date Belkys Bundy DO [address] [place], [place] [address] PCP - General Family Medicine 03/21/19 documented as of this encounter
--- OUTSIDE RECORDS SUMMARY | 2024-03-29 08:12 | XMS_ITS | Encounter Summary ---
[place] [address] Care Team Providers Care Resin Mixer Name Role Phone Belkys Bundy Primary Care Provider +1- [phone] Reason for Visit * Reason Onset Date Comments Other 11/02/2023 DME - BiPAP Encounter Details Date Type Department Care Team (Late st Contact Info) Description 11/02/2023 [place] [phone] Emily Starr RN Other (DME - BiPAP) Social History Tobacco Use Types Packs/Day Years [...] Telephone Encounter - Emily Starr RN - 11/07/2023 12:34 PM EDT RN called back to Jessie and was able to speak to her directly. She has declined having a overnight pulse oximetry testing requisition be sent out to [facility]. She would like to instead request Dr. Thayer to put in an order for a sleep study through [facility]. Her rationale is that she would not be able to return the equipment in a timelymanner, and that she feels that the sleep study would give better data. * Telephone Encounter - Emily Starr RN - 11/04/2023 12:17 PM EDT RN called back to preferred home number, but was met with voicemail. LMOM, will attempt to call back, requested return call to [phone] * Telephone Encounter - Emily Starr RN - 11/04/2023 10:23 AM EDT Images from the original note were not included. RN called back to Jessie to discuss response from Dr. Thayer as follows: November 03, 2023 Kira Thayer MD to Ok 11/03/23 8:54 AM For bipap work-up, patient needs repeat overnight oximetry testing (done on her home 2L [place] O2); please let patient know that her overnight oximetry in November 2022 did NOT qualify her for bipap (oxygen levels didn't go low enough), but this test can be repeated if she is interested in the bipap. Theorder for overnight home oximetry was placed in June, but it looks like [facility] bounced it back as they no longer do overnight oximetry, so this needs to be set up through another service - can you helpwith getting that set up? Thanks. RN was met with voicemail. Requested call back to discuss response. Will attempt to recall. * Telephone Encounter - Kira Thayer MD - 11/03/2023 8:45 AM EDT Recent transplant clinic visit note reviewed, chart reviewed; based on prior testing (including overnight oximetry 11/2022) she did not qualify for bipap, but this should be reassessed. Repeat overnight oximetry was ordered in June, no result yet. If not completed yet this is the next step. If she has nocturnal desaturations this year on her home 2 L [place] O2 then will also need to demonstrate hypercarbia. Requesting RN assistance with arranging overnight oximetry for pt now. Kira Thayer MD * Telephone Encounter - Emily Starr RN - 11/02/2023 3:47 PM EDT RN called back to patient and was met with voicemail on home number. LMOM updating that records hadbeen received from [facility], and notification would be sent to Dr. Thayer. * Telephone Encounter - Emily Strar RN - 11/02/2023 3:43 PM EDT Copied from [facility] #[id number]. Topic: Specialty Dept CRMs - Generic Call >> Nov 01, 2023 2:50 PM Dennis Rachel wrote: Specialist: Kira Thayer MD Relationship (if other than patient-full name): Jessie Sanchez Reason for Call: Patient called to get a message to Alma. She stated, [facility] wants her to get a BiPap, all the notes from [facility] should be there. documented in this encounter Plan of Treatment Upcoming Encounters Date Type Department Care Team (Late st Contact Info) Description 08/27/2024 4:00 PM EDT Office [place] [address] Kira Thayre MD [facility] [place] [address] documented as of this encounter Visit Diagnoses Not on filedocumented in this encounter Care Teams Resin Mixer Relationship Specialty Start Date End Date Belkys Bundy DO [address] [place] [address] PCP - General Family Medicine 03/21/19 documented as of this encounter
--- OUTSIDE RECORDS SUMMARY | 2024-03-29 08:12 | XMS_ITS | Encounter Summary ---
Author Organization [facility] [place] [address] Care Team Providers Care Information Assurance Specialist Name Role Phone Belkys Bundy Primary Care Provider +1- [phone] Encounter Details Date Type Department Care Team (Late st Contact Info) Description 03/02/2024 Telephone [place] [address] Millicent Valles Social History Tobacco Use Types [...] 4:00 PM EDT Office [place] [address] Kira Thayer MD [facility] [place] [address] documented as of this encounter Visit Diagnoses Not on filedocumented in this encounter Care Teams Information Assurance Specialist Relationship Specialty Start Date End Date Belkys Bundy DO [address] [place] [address] PCP - General Family Medicine 03/21/19 documented as of this encounter
--- OUTSIDE RECORDS SUMMARY | 2024-03-29 08:12 | XMS_ITS | Encounter Summary ---
Author Organization [facility] [place] [address] Care Team Providers Care Loom Operator Name Role Phone Belkys Bundy DO Primary Care Provider +1- [phone] Encounter Details Date Type Department Care Team (Latest Contact Info) Description 10/18/2022 Travel Social History Tobacco Use Types Packs/Day [...] 4:00 PM EDT [place] [address] Kira Thayer MD [facility] [place] [address] documented as of this encounter Visit Diagnoses Not on filedocumented in this encounter Care Teams Loom Operator Relationship Specialty Start Date End Date Belkys Bundy DO [address] [place], [place] [address] PCP - General Family Medicine 03/21/19 documented as of this encounter
--- OUTSIDE RECORDS SUMMARY | 2024-03-29 08:12 | XMS_ITS | Encounter Summary ---
Author [place] [address] Care Team Providers Care Career Development Engineer Name Role Phone Belkys Bundy DO Primary Care Provider +1- [phone] Reason for Referral * Consultation (Routine) - Authorized Specialty Diagnoses / Procedures Referred By Rossy levine Referred To Contact Pulmonology Diagnoses Other specified counseling Awaiting organ transplant status Dyspnea, unspecified Other abnormalities of breathing Chronic obstructive pulmonary disease, unspecified ENCOUNTER FOR BIPAP USE COUNSELING, LUNG TRANSPLANT CANDIDATE. PLEASE EVAL FOR C-PAP/BI-PAP PER [facility] PULM DATA Belkys Bundy DO [address] [place] [address] [facility] Pulmonology [address] [place] [phone] Referral ID Status Reason Start Date Expiration Date Visits Requested Visits Authorized [id number] Authorized Consult, Test & Treat PCP Updated and/or Approved 10/27/2023 04/28/2024 6 6 Encounter Details Date Type Department Care Team (Latest Contact Info) Description 11/22/2023 Transcribe Orders eDH Incoming Referrals [phone] Belkys Bundy DO [address] [place], [place] [address] Other specified counseling Social History Tobacco Use Types Packs/Day Years [...] 4:00 PM EDT [place] [address] Kira Thayer MD [facility] [place] [address] Scheduled Referrals Name Type Priority Associated Diagnoses Order Schedule Referral to Pulmonology Outpatient Referral Routine Other specified counseling Ordered: 11/22/2023 documented as of this encounter Visit Diagnoses Diagnosis Other specified counseling documented in this encounter Care Teams Career Development Engineer Relationship Specialty Start Date End Date Belkys Bundy DO [address] [place] [address] PCP - General Family Medicine 03/21/19 documented as of this encounter
--- OUTSIDE RECORDS SUMMARY | 2024-03-29 08:12 | XMS_ITS | Encounter Summary ---
Author Organization [facility] Address [facility] [place] [address] Care Team Providers Care Office Nurse Practitioner Name Role Phone Belkys Bundy Primary Care Provider +1- [phone] Encounter Details Date Type Department Care Team (Late st Contact Info) Description 12/16/2023 Tele[place] [address] Kira Thayer MD [facility] [place] [address] Social History Tobacco Use Types Packs/Day Years [...] Telephone Encounter - Emily Starr RN - 01/03/2024 12:07 PM EDT RN called to [facility], in efforts to inquire into overnight pulse oximetry testing results. RN was met with office overflow answering service. RN left message for Sendy, seeking overnight pulse oximetry testing results. * Telephone Encounter - Kira Thayer MD - 12/30/2023 2:02 PM EDT Have not yet received report from overnight oxygen testing. Called Jessie to ask if this had been done and she reports it was done last week, testing through [facility]. Will need the overnight oximetry report from [facility]. Kira Thayer MD * Telephone Encounter - Kira Thayer MD - 12/16/2023 4:24 PM EDT Called Jessie to follow up on my [facility] messages about pursuing additional testing to try to qualify for bipap; she did not meet criteria for bipap on prior overnight oxygen testing last year, but we can repeat this. She had previously declined repeating it. We discussed the reason it is required (to obtain insurance coverage for a bipap device), and she is agreeable to do it. She is agreeable to the testing being done through [facility] who can get a device to her locally for this testing. She also understands insurance must accept her blood gas results ([facility] sent a copy of ABG from June2023 - ./58/142.) She shares she believes [facility] is moving forward with listing her for transplant soon. Orders Placed This Encounter Procedures Common Pulmonary Function Test Overnight pulse ox to be performed on home 2L [place] oxygen. Standing Status: Future Standing Expiration Date: 06/16/2024 Order Specific Question: Preferred location? Answer: External [125] Order Specific Question: Which External location will this be performed: Answer: Other Order Specific Question: Other Facility: Answer: [facility] Order Specific Question: Test to be performed Answer: Pulse Ox Overnight Kira Thayer MD documented in this encounter Plan of Treatment Upcoming Encounters Date Type Department Care Team (Late st Contact Info) Description 08/27/2024 4:00 PM EDT [place] [address] Kira Thayer MD [facility] [place] [address] Scheduled Orders Name Type Priority Associated Diagnoses Orde r Schedule Common Pulmonary Function Test PFT Routine COPD, very severe Expected: 12/16/2023, Expires: 06/16/2024 documented as of this encounter Visit Diagnoses Diagnosis COPD, very severe Chronic airway obstruction, not elsewhere classified documented in this encounter Care Teams Office Nurse Practitioner Relationship Specialty Start Date End Date Belkys Bundy DO [address] [place] [address] PCP - General Family Medicine 03/21/19 documented as of this encounter
--- OUTSIDE RECORDS SUMMARY | 2024-03-29 08:13 | XMS_ITS | Encounter Summary ---
Author Organization [facility] [place] [address] Care Team Providers Care Email Marketing Executive Name Role Phone AnaBelkys moise Primary Care Provider +1- [phone] Encounter Details Date Type Department Care Team (Late st Contact Info) Description 09/22/2021 [place] [address] Millicent Valles Social History Tobacco Use Types Packs/Day Years Used Date Smoking Tobacco: Former Cigarettes 1 15 0 08/21/2006 - 08/21/2021 Smokeless Tobacco: Never Comments:When smoking averag ed [...] 4:00 PM EDT Office [place] [address] Kira Thayer MD [facility] [place] [address] documented as of this encounter Visit Diagnoses Not on filedocumented in this encounter Care Teams Email Marketing Executive Relationship Specialty Start Date End Date Belkys Bundy DO [address] [place] [address] PCP - General Family Medicine 03/21/19 documented as of this encounter
--- OUTSIDE RECORDS SUMMARY | 2024-03-29 08:13 | XMS_ITS | Encounter Summary ---
[place] [address] Care Team Providers Care Gold Plater Name Role Phone Belkys Bundy DO Primary Care Provider +1- [phone] Reason for Visit * Reason Onset Date Comments Other 06/24/2021 Medication recon cilliation Encounter Details Date Type Department Care Team (Late st Contact Info) Description 06/24/2021 Telephone [place] [phone] Emily Starr RN Other (Medication reconcilliation) Social History Tobacco Use Types Packs/Day Years Used Date Smoking Tobacco: Former Cigarettes 1 15 1 - 01/28/2021 Smokeless Tobacco: Never Comments:When smoking averag ed [...] Telephone Encounter - Emily Starr RN - 06/24/2021 10:17 AM EDT Rec;d medication list from office of Dr. Bundy of [facility]. Added new medications and doses to list. documented in this encounter Plan of Treatment Upcoming Encounters Date Type Department Care Team (Late st Contact Info) Description 08/27/2024 4:00 PM EDT Office [place] [address] Kira Thayer MD [facility] [place] [address] documented as of this encounter Visit Diagnoses Not on filedocumented in this encounter Care Teams Gold Plater Relationship Specialty Start Date End Date Belkys Bundy DO [address] [place] [address] PCP - General Family Medicine 03/21/19 documented as of this encounter
--- OUTSIDE RECORDS SUMMARY | 2024-03-29 08:13 | XMS_ITS | Encounter Summary ---
Author Organization [facility] [place] [address] Care Team Providers Care Car Wiper Name Role Phone Belkys Bundy DO Primary Care Provider +1- [phone] Encounter Details Date Type Department Care Team (Late st Contact Info) Description 08/04/2022 Telephone [place] [address] Millicent Valles Social History Tobacco Use Types [...] 4:00 PM EDT Office [place] [address] Kira Thayer MD [facility] [place] [address] documented as of this encounter Visit Diagnoses Not on filedocumented in this encounter Care Teams Car Wiper Relationship Specialty Start Date End Date Belkys Bundy DO [address] [place] [address] PCP - General Family Medicine 03/21/19 documented as of this encounter
--- OUTSIDE RECORDS SUMMARY | 2024-03-29 08:13 | XMS_ITS | Encounter Summary ---
Author Organization [facility] [place] [address] Care Team Providers Care Water Resource Engineering Specialist Name Role Phone Belkys Bundy Primary Care Provider +1- [phone] Encounter Details Date Type Department Care Team (Late st Contact Info) Description 11/27/2021 Tele[place] [address] Katie Donato Social History Tobacco Use Types Packs/Day Years [...] 4:00 PM EDT Office [place] [address] Kira Thayer MD [facility] [place] [address] documented as of this encounter Visit Diagnoses Not on filedocumented in this encounter Care Teams Water Resource Engineering Specialist Relationship Specialty Start Date End Date Belkys Bundy DO [address] [place] [address] PCP - General Family Medicine 03/21/19 documented as of this encounter
--- OUTSIDE RECORDS SUMMARY | 2024-03-29 08:13 | XMS_ITS | Encounter Summary ---
Author Organization [facility] [place] [address] Care Team Providers Care Hair Or Beauty Salon Assistant Name Role Phone Belkys Bundy Primary Care Provider +1- [phone] Encounter Details Date Type Department Care Team (Late st Contact Info) Description 09/09/2021 8:30 AM EDT Office [place] [address] Juanis Osullivan, RT COPD, very severe Social History Tobacco Use [...] as of this encounter Progress Notes * Juanis Osullivan RT - 09/09/2021 8:30 AM EDT Home Oxygen Evaluation for Jessie Sanchez Resting SpO2 on room air: 91 % HR: 88 bpm Walked 150 feet on room air, SpO2: 87 % HR: 104 bpm Placed on O2 at 2 lpm: Resting SpO2 on 2 lpm O2: 92 % HR: 101 bpm Walked 300 feet on 2 lpm O2, SpO2: 88 % HR: 110 bpm Increased to 3 lpm O2: Resting SpO2 on 3 lpm O2: 96 % HR: 97 bpm Walked 150 feet on 3 lpm O2, SpO2: 94 % HR: 101 bpm Current O2 DME: [facility] system: low flow oxygen concentrator Portable system: portable oxygen concentrator that is able to go up to 5 pulse dose. Currently utilizing O2 at 3 lpm at home and pulse dose of 3-4 pulse dose with activity. ETCO2 on 2 lpm O2 at rest: 32-36 mm Hg with RR: 19-21 breaths/minute documented in this encounter Plan of Treatment Upcoming Encounters Date Type Department Care Team (Late st Contact Info) Description 08/27/2024 4:00 PM EDT Office [place] [address] Kira Thayer MD [facility] [place] [address] documented as of this encounter Visit Diagnoses Diagnosis COPD, very severe Chronic airway obstruction, not elsewhere classified documented in this encounter Care Teams Hair Or Beauty Salon Assistant Relationship Specialty Start Date End Date Belkys Bundy DO [address] [place] [address] PCP - General Family Medicine 03/21/19 documented as of this encounter
--- OUTSIDE RECORDS SUMMARY | 2024-03-29 08:13 | XMS_ITS | Encounter Summary ---
Author Organization [facility] [place] [address] Care Team Providers Care Supervisor Color Paste Mixing Name Role Phone Belkys Bundy DO Primary Care Provider +1- [phone] Encounter Details Date Type Department Care Team (Late st Contact Info) Description 08/05/2022 Telephone [place] [address] Millicent Valles Social History Tobacco Use Types [...] 4:00 PM EDT Office [place] [phone] Kira Thayer MD [facility] [place] [address] documented as of this encounter Visit Diagnoses Not on filedocumented in this encounter Care Teams Supervisor Color Paste Mixing Relationship Specialty Start Date End Date Belkys Bundy DO [address] [place] [address] PCP - General Family Medicine 03/21/19 documented as of this encounter
--- OUTSIDE RECORDS SUMMARY | 2024-03-29 08:13 | XMS_ITS | Encounter Summary ---
Author Organization [facility] Address [facility] [place] [address] Care Team Providers Care Station Installer Name Role Phone Belkys Bundy Primary Care Provider +1- [phone] Encounter Details Date Type Department Care Team (Late st Contact Info) Description 06/03/2021 9:00 AM EST Office [place] [address] Kira Thayer MD [facility] [place] [address] COPD, very severe; Chronic obstructive pulmonary disease, unspecified COPD type; Supplemental oxygen dependent; Pulmonary nodule; Tobacco use Social History Tobacco Use Types Packs/Day Years [...] Sign Reading Time Taken Comments Blood Pressure 115/83 06/03/2021 9:01 AM EST Pulse 86 06/03/2021 9:01 AM EST Temperature 35.6 ??C (96.1 ??F) 06/03/2021 9:01 AM ES T Respiratory Rate 16 06/03/2021 9:01 AM EST Oxygen Saturation 95% 06/03/2021 9:01 AM EST Inhaled Oxygen Concentration - - Weight 77 kg (169 lb 12.1 oz) 06/03/2021 9:01 AM EST Height 164.9 cm (5' 4.92) 06/03/2021 9:01 AM ES T Body Mass Index 28.32 06/03/2021 9:01 AM EST documented in this encounter Progress Notes * Kira Thayer MD - 06/03/2021 9:00 AM EST Images from the original note were not included. [facility] Section of Pulmonary and Critical Care Medicine Outpatient Consultation Date of Encounter: 06/03/2021 Reason for Evaluation: Ms. Jessie Sanchez returns to the pulmonary clinic for follow-up of COPD and chronic oxygen dependence. I independently interviewed the patient, have examined the patient if this visit was conducted in the office and have reviewed available records. Dear Dr. Belkys Bundy, DO, As you know, Jessie Sanchez is a 50 y.o. female with emphysema and severe COPD with oxygen-dependence,allergies, and obesity, who was last seen in pulmonary clinic in February 2021. Mrs. Sanchez has had some increased dyspnea recently. She thinks this is in part because she has beenunable to get her prednisone and azithromycin filled (local pharmacy has been closed a lot recently.) Had prescribed to treat a subacute exacerbation a few weeks ago. She has chronic chest congestion, coughing up mucous intermittently. Sinus congestion is much improved back on zyrtec. Breathing through nose okay now. She feels the trelegy inhaler is working well, takes consistently. Has been using home O2 consistently with activity and at night She plans to start walking again soon for exercise. No change in weight. Denies GERD. Had a fall on ice recently, ED visit for this. Tailbone still hurts but improving. Zyrtec and singulair air working well. As you will recall, did not feel morphine PRN for dyspnea was helpful (made her feel out of it.) She is also using albuterol MDI/duonebs occasionally. Uses albuterol every morning. She has been smoking still, 1 ppd, plans to quit next month. She has had a covid19 vaccine. Current Medications at Start of Encounter: Outpatient Medications Prior to Visit Medication Sig Dispense Refill ??? mbgcigglzgr-dteujgbtn-boyxgtkh (Trelegy Ellipta) 200-62.5-25 mcg Disk with Device Inhale 1 Inhalation into the lungs daily. 28 each 11 ??? benzonatate (TESSALON) 200 mg Capsule Take 1 capsule by mouth 3 times daily as needed for Cough. 30 capsule 1 ??? albuteroL 90 mcg/actuation HFA Aerosol Inhaler INHALE 2 PUFFS INTO THE LUNGS EVERY 4 HOURS NEEDED FOR WHEEZING OR SHORTNESS OF BREATH 36 g 5 ??? montelukast (Singulair) 10 mg Tablet Take 1 tablet by mouth nightly. 30 tablet 11 ??? fluticasone propionate (FLONASE) 50 mcg/actuation Feura Bush, Suspension ??? atorvastatin (Lipitor) 20 mg Tablet ??? cyclobenzaprine (Flexeril) 10 mg Tablet Take 10 mg by mouth as needed. ??? dicyclomine (BENTYL) 20 mg Tablet TAKE 1 TABLET BY MOUTH TWICE A DAY IF NEEDED FOR STOMACH UPPSET ??? cetirizine (ZyrTEC) 10 mg Tablet Take 10 mg by mouth daily. ??? ipratropium-albuteroL (DUONEB) 0.5 mg-3 mg(2.5 mg base)/3 mL Solution for Nebulization USE 1 VIAL VIA NEBULIZER 4 TIMES A DAY NEEDED FOR SHORTNESS OF BREATH/ WHEEZING ??? levothyroxine (SYNTHROID) 75 mcg Tablet Take 75 mcg by mouth daily. ??? citalopram (CELEXA) 40 mg Tablet Take 40 mg by mouth every morning. ??? citalopram (CELEXA) 20 mg Tablet Take 20 mg by mouth nightly. ??? mirabegron (MYRBETRIQ ORAL) Take 20 mg by mouth daily. ??? traZODone (DESYREL) 100 mg Tablet Take 200 mg by mouth nightly. ??? omeprazole (PRILOSEC) 20 mg Capsule, Delayed Release(E.C.) Take 20 mg by mouth daily as needed. ??? docusate sodium (COLACE) 100 mg Capsule Take 100 mg by mouth 3 times daily as needed for Constipation. ??? buPROPion (WELLBUTRIN SR) 150 mg Tablet Sustained Release Take 150 mg by mouth 2 times daily. ??? IBUPROFEN ORAL ??? DILTiazem (CARDIZEM) 30 mg tablet ??? azithromycin (Zithromax) 250 mg Tablet Take 500 mg day 1 then 250 mg days 2- 5. (Patient not taking: Reported on 06/03/2021) 6 tablet 0 ??? predniSONE (Deltasone) 20 mg Tablet Take 2 tablets by mouth daily for 5 days. 10 tablet 0 ??? nicotine (NICODERM CQ) 21 mg/24 hr Patch 24 hr APPLY ONE PATCH TO THE SKIN EVERY DAY ??? ondansetron (Zofran) 4 mg Tablet TAKE 1 TABLET BY MOUTH EVERY 8 HOURS IF NEEDED FOR NAUSEA AND VOMITING ??? morphine IR (MSIR) 15 mg Tablet ??? ERYTHROMYCIN BASE (ERYTHROMYCIN ORAL) Take by mouth. No facility-administered medications prior to visit. Review of Systems: A focused ROS was completed and was positive as noted in HPI, and otherwise negative. Physical Examination: BP 115/83 Pulse 86 Temp 35.6 ??C (96.1 ??F) (Temporal) Resp 16 Ht 164.9 cm (5' 4.92) Wt 77 kg (169 lb 12.1 oz) SpO2 95% BMI 28.32 kg/m?? In no distress, conversational, a little fatigued appearing RRR, quiet heart sounds, no murmur Normal WOB at rest, diminished breath sounds throughout, no crackles or wheezing, no cyanosis or clubbing Abd soft, ND No joint swelling. She is ambulatory No edema Pulmonary Function Test Results: 06/03/2021: The FEV1 is very severely reduced, the FVC is moderately reduced and the FEV1/FVC is reduced. The DLCO is moderately reduced. IMPRESSION: Severe airflow obstruction, with moderately impaired diffusing capacity. Compared with prior testing Feb 2021 the FEV1, FVC and DLCO are again reduced. Labs, Microbiology and Imaging: I personally reviewed relevant laboratory, microbiologic and radiology results which were significant for: Chest CT 06/03/2021: stable small 4 mm and 5 mm lung nodules (now stable for 3 years); diffuse emphysema. A1AT level in 2012 was 146 (genotype results NEGATIVE for S or Z allele) Immunization History: Flu vaccine: COVID-19 vaccine: has had primary and booster Pneumovax: Prevnar-13: Impression and Recommendations: Jessie Sanchez is a 50 y/o woman with emphysema and severe COPD with oxygen- dependence, very severe airflow obstruction, allergies, GERD and obesity, now with increased respiratory symptoms again in setting of resumption of tobacco use. PFTs show reduction in airflow and diffusing capacity again at this visit (though function had improved in 2020 with tobacco cessation.) I think tobacco use is a significant contributor to her worsening respiratory status, and again counseled her on tobacco cessation. She is planning to quit soon. For her COPD she is already on triple inhaled therapy with high dose trelegy and is appropriately using albuterol and duonebs PRN. She will continue using supplemental oxygen with activity 3pulse and qHS 2L. I recommend restarting chronic azithromycin three times weekly. I am prescribing prednisone 40 mg x 5 day course to keep on hand for next acute exacerbation. Flutter valve use encouraged PRN. She is enrolled in pulmonary rehab but has had limited ability to participate recently due to acuteillness. Encouraged to resume as tolerated. Chest CT shows three year stability of small lung nodules. No further imaging of these nodules is recommended. She will qualify for lung cancer screening when she turns 55. Summary Recommendations: - continue trelegy inhaler 200 daily, albuterol MDI with spacer and duonebs PRN - continue singulair/zyrtec/flonase daily - restart chronic azithromycin 500 mg po three times weekly - acute respiratory exacerbation plan includes prednisone 40 mg daily x 5 days, possibly longer (5 day course prescribed to keep on hand) - encouraged to continue in pulm rehab, increase activity as tolerated - weight loss also advised - continue supplemental NC O2: 2LPM at rest/3 LPM continuous with activity/3 pulse at rest/5 pulse with activity on POC - continue flutter valve for airway clearance PRN Follow-up with in-office visit in 3 months. Thank you for involving me in Ms. Sanchez's care. Please feel free to contact me with any further questions or concerns. MD Omari Hogue [facility] PULMONOLOGY AT [facility] [address] Dept: [phone] Loc: [phone] documented in this encounter Plan of Treatment Upcoming Encounters Date Type Department Care Team (Late st Contact Info) Description 08/27/2024 4:00 PM EDT Office [place] [address] Kira Thayer MD [facility] [place] [address] documented as of this encounter Visit Diagnoses Diagnosis COPD, very severe Chronic airway obstruction, not elsewhere classified Chronic obstructive pulmonary disease, unspecified COPD type Supplemental oxygen dependent Dependence on supplemental oxygen Pulmonary nodule Solitary pulmonary nodule Tobacco use Tobacco use disorder documented in this encounter Care Teams Station Installer Relationship Specialty Start Date End Date Belkys Bundy DO [address] [place] [address] PCP - General Family Medicine 03/21/19 documented as of this encounter
--- OUTSIDE RECORDS SUMMARY | 2024-03-29 08:13 | XMS_ITS | Encounter Summary ---
Author Organization [facility] [place] [address] Care Team Providers Care Medical Center Manager Name Role Phone Belkys Bundy DO Primary Care Provider +1- [phone] Encounter Details Date Type Department Care Team (Latest Contact Info) Description 09/13/2022 Travel Social History Tobacco Use Types Packs/Day [...] 4:00 PM EDT [place] [address] Kira Thayer MD [facility] [place] [address] documented as of this encounter Visit Diagnoses Not on filedocumented in this encounter Care Teams Medical Center Manager Relationship Specialty Start Date End Date Belkys Bundy DO [address] [place], [place] [address] PCP - General Family Medicine 03/21/19 documented as of this encounter
--- OUTSIDE RECORDS SUMMARY | 2024-03-29 08:13 | XMS_ITS | Encounter Summary ---
Author Organization [facility] [place] [address] Care Team Providers Care Superintendent Track Name Role Phone Belkys Bundy Primary Care Provider +1- [phone] Encounter Details Date Type Department Care Team (Late st Contact Info) Description 11/27/2021 Telephone [place] [address] Carolyn Henry RMA Social History Tobacco Use Types Packs/Day Years [...] encounter Miscellaneous Notes * Telephone Encounter - Carolyn Henry RMA - 11/27/2021 10:13 AM EDT Spoke with pt but wants to cancel appointment. I advised pt to call front end driver to properly cancel & reschedule. documented in this encounter Plan of Treatment Upcoming Encounters Date Type Department Care Team (Late st Contact Info) Description 08/27/2024 4:00 PM EDT Office [place] [address] Kira Thayer MD [facility] [place] [address] documented as of this encounter Visit Diagnoses Not on filedocumented in this encounter Care Teams Superintendent Track Relationship Specialty Start Date End Date Belkys Bundy DO [address] [place] [address] PCP - General Family Medicine 03/21/19 documented as of this encounter
--- OUTSIDE RECORDS SUMMARY | 2024-03-29 08:13 | XMS_ITS | Encounter Summary ---
Author Organization [facility] [place] [address] Care Team Providers Care Elevator Tender Name Role Phone Belkys Bundy Primary Care Provider +1- [phone] Encounter Details Date Type Department Care Team (Late st Contact Info) Description 03/30/2022 Telephone [place] [address] Carolyn Henry RMA Social History Tobacco Use [...] Telephone Encounter - Carolyn Henry RMA - 03/30/2022 5:12 PM EST Phone call attempt made to pt. Unsuccessful. Allergies, meds, & tobacco NOT reviewed documented in this encounter Plan of Treatment Upcoming Encounters Date Type Department Care Team (Late st Contact Info) Description 08/27/2024 4:00 PM EDT Office [place] [address] Kira Thayer MD [facility] [address] [place] [address] documented as of this encounter Visit Diagnoses Not on filedocumented in this encounter Care Teams Elevator Tender Relationship Specialty Start Date End Date Belkys Bundy DO [address] [place] [address] PCP - General Family Medicine 03/21/19 documented as of this encounter
--- OUTSIDE RECORDS SUMMARY | 2024-03-29 08:13 | XMS_ITS | Encounter Summary ---
Author Organization [facility] [place] [address] Care Team Providers Care Hatchery Man Name Role Phone Belkys Bundy DO Primary Care Provider +1- [phone] Encounter Details Date Type Department Care Team (Late st Contact Info) Description 07/15/2022 Ancillary Procedure Radiology Library at [facility] [place] [address] Kira Thayer MD [facility] [address] Social History Tobacco Use Types Packs/Day Years [...] 4:00 PM EDT Office Visit Pulmonology at [facility] [place] [address] Kira Thayer MD [facility] [place] [address] documented as of this encounter Procedures Procedure Name Priority Date/Time Associated Diagnosis Comments FILM LIBRARY STORAGE ONLY CT CHEST Routine 07/15/2022 12:00 AM EDT documented in this encounter Results * Film Library- Storage Only CT Chest (07/15/2022 12:00 AM EDT) Narrative [facility] - 08/05/2022 7:48 PM EDT This exam is auto-finalizing. It's purpose is for storage only. Kira Thayer MD IMG FILM LIBRARY ORD ERABLES Performing Organization Address City/State/[facility] Co de Phone Number [place], [place] documented in this encounter Visit Diagnoses Not on filedocumented in this encounter Care Teams Hatchery Man Relationship Specialty Start Date End Date Belkys Bundy DO [address] [place] [address] PCP - General Family Medicine 03/21/19 documented as of this encounter
--- OUTSIDE RECORDS SUMMARY | 2024-03-29 08:13 | XMS_ITS | Encounter Summary ---
Author [facility] [place] [address] Care Team Providers Care Chain Tender Name Role Phone Belkys Bundy Primary Care Provider +1- [phone] Reason for Visit * Reason Onset Date Comments Request For Record 01/14/2022 Encounter Details Date Type Department Care Team (Late st Contact Info) Description 01/14/2022 [place] [phone] Emily Starr RN Request For Record Social History Tobacco Use Types Packs/Day Years [...] Telephone Encounter - Emily Starr RN - 01/15/2022 2:00 PM EDT Rec'd records request for patient's oxygen qualifications and office visit notes. Faxed the following: Testing data form, Office Visit Notes dated 09/09/2021 Progress Notes dated 09/09/2021 Fax submission confirmation time stamped for 01/14/2022 @ 5521, 20 pages with cover sheet. documented in this encounter Plan of Treatment Upcoming Encounters Date Type Department Care Team (Late st Contact Info) Description 08/27/2024 4:00 PM EDT [place] [address] Kira Thayer MD [facility] [place] [address] documented as of this encounter Visit Diagnoses Not on filedocumented in this encounter Care Teams Chain Tender Relationship Specialty Start Date End Date Belkys Bundy DO [address] [place] [address] PCP - General Family Medicine 03/21/19 documented as of this encounter
--- OUTSIDE RECORDS SUMMARY | 2024-03-29 08:13 | XMS_ITS | Encounter Summary ---
[place] [address] Care Team Providers Care Assembler Aircraft Power Plant Name Role Phone Belkys Bundy Primary Care Provider +1- [phone] Reason for Visit * Reason Onset Date Comments Medication Refill 07/26/2022 Encounter Details Date Type Department Care Team (Late st Contact Info) Description 07/26/2022 [place] [address] Emily Starr RN COPD, very severe Social History Tobacco Use [...] Telephone Encounter - Emily Starr RN - 07/26/2022 8:02 AM EDT Images from the original note were not included. Rec'd the following message from patient: SL ?? 8:50 PM Thanks Jessie Sanchez to [facility] Nurse (supporting Kira Thayer MD) SL ?? 8:[address] Thayer I need my trilogy but my pharmacy has changed to [facility] in [place] http [email or web address] documented in this encounter Plan of Treatment Upcoming Encounters Date Type Department Care Team (Late st Contact Info) Description 08/27/2024 4:00 PM EDT [place] [address] Kira Thayer MD [facility] [place] [address] documented as of this encounter Visit Diagnoses Diagnosis COPD, very severe Chronic airway obstruction, not elsewhere classified documented in this encounter Care Teams Assembler Aircraft Power Plant Relationship Specialty Start Date End Date Belkys Bundy DO [address] [place] [address] PCP - General Family Medicine 03/21/19 documented as of this encounter
--- OUTSIDE RECORDS SUMMARY | 2024-03-29 08:13 | XMS_ITS | Encounter Summary ---
Author Organization [facility] [place] [address] Care Team Providers Care Oil And Gas Recruiter Name Role Phone Belkys Bundy DO Primary Care Provider +1- [phone] Encounter Details Date Type Department Care Team (Late st Contact Info) Description 07/05/2022 Telephone [place] [address] Millicent Valles Social History Tobacco Use Types [...] 4:00 PM EDT Office [place] [address] Kira Thayer MD [facility] [place] [address] documented as of this encounter Visit Diagnoses Not on filedocumented in this encounter Care Teams Oil And Gas Recruiter Relationship Specialty Start Date End Date Belkys Bundy DO [address] [place] [address] PCP - General Family Medicine 03/21/19 documented as of this encounter
--- OUTSIDE RECORDS SUMMARY | 2024-03-29 08:13 | XMS_ITS | Encounter Summary ---
Author Organization [facility] [place] [address] Care Team Providers Care Model Making Supervisor Name Role Phone Belkys Bundy Primary Care Provider +1- [phone] Reason for Visit * Reason Onset Date Comments Medication Refill 06/28/2022 Troy hawthorne Encounter Details Date Type Department Care Team (Late Contact Info) Description 06/28/2022 [place] [phone] Kira Thayer MD [facility] [place] [address] COPD, very severe Social History Tobacco Use [...] 4:00 PM EDT [place] [address] Kira Thayer MD [facility] [place] [address] documented as of this encounter Visit Diagnoses Diagnosis COPD, very severe Chronic airway obstruction, not elsewhere classified documented in this encounter Care Teams Model Making Supervisor Relationship Specialty Start Date End Date Belkys Bundy DO [address] [place] [address] PCP - General Family Medicine 03/21/19 documented as of this encounter
--- OUTSIDE RECORDS SUMMARY | 2024-03-29 08:13 | XMS_ITS | Encounter Summary ---
Author Organization [facility] [place] [address] Care Team Providers Care First Line Production Supervisor Name Role Phone Belkys Bundy DO Primary Care Provider +1- [phone] Encounter Details Date Type Department Care Team (Late st Contact Info) Description 09/20/2022 Telephone [place] [phone] Millicent Valles Social History Tobacco Use Types [...] 4:00 PM EDT Office [place] [address] Kira Thayer MD [facility] [place] [address] documented as of this encounter Visit Diagnoses Not on filedocumented in this encounter Care Teams First Line Production Supervisor Relationship Specialty Start Date End Date Belkys Bundy DO [address] [place] [address] PCP - General Family Medicine 03/21/19 documented as of this encounter
--- OUTSIDE RECORDS SUMMARY | 2024-03-29 08:13 | XMS_ITS | Encounter Summary ---
Author Organization [facility] [place] [address] Care Team Providers Care Scale Tank Operator Name Role Phone Belkys Bundy Primary Care Provider +1- [phone] Reason for Visit * Reason Onset Date Comments Medication Refill 04/17/2021 Encounter Details Date Type Department Care Team (Late st Contact Info) Description 04/17/2021 [place] [phone] Emily Starr RN COPD, very severe Social [...] 4:00 PM EDT [place] [phone] Kira Thayer MD [facility] [place] [address] documented as of this encounter Visit Diagnoses Diagnosis COPD, very severe Chronic airway obstruction, not elsewhere classified documented in this encounter Care Teams Scale Tank Operator Relationship Specialty Start Date End Date Belkys Bundy DO [address] [place] [address] PCP - General Family Medicine 03/21/19 documented as of this encounter
--- OUTSIDE RECORDS SUMMARY | 2024-03-29 08:13 | XMS_ITS | Encounter Summary ---
Author Organization [facility] [place] [address] Care Team Providers Care Organizational Development Manager Name Role Phone AnaBelkys moise Primary Care Provider +1- [phone] Encounter Details Date Type Department Care Team (Late st Contact Info) Description 09/23/2021 Telephone [place] [phone] Millicent Valles Social History Tobacco Use Types [...] 4:00 PM EDT Office [place] [address] Kira Thayer MD [facility] [place] [address] documented as of this encounter Visit Diagnoses Not on filedocumented in this encounter Care Teams Organizational Development Manager Relationship Specialty Start Date End Date Belkys Bundy DO [address] [place] [address] PCP - General Family Medicine 03/21/19 documented as of this encounter
--- OUTSIDE RECORDS SUMMARY | 2024-03-29 08:13 | XMS_ITS | Encounter Summary ---
Author Organization [facility] [place] [address] Care Team Providers Care Digital Printer Operator Name Role Phone Belkys Bundy DO Primary Care Provider +1- [phone] Encounter Details Date Type Department Care Team (Late st Contact Info) Description 07/08/2021 Orders [place] [phone] Kira Thayer MD [facility] [address] COPD, very severe Social History Tobacco Use [...] 4:00 PM EDT Office [place] [phone] Kira Thayer MD [facility] [place] [address] documented as of this encounter Visit Diagnoses Diagnosis COPD, very severe Chronic airway obstruction, not elsewhere classified documented in this encounter Care Teams Digital Printer Operator Relationship Specialty Start Date End Date Belkys Bundy DO [address] [place] [address] PCP - General Family Medicine 03/21/19 documented as of this encounter
--- OUTSIDE RECORDS SUMMARY | 2024-03-29 08:13 | XMS_ITS | Encounter Summary ---
[place] [address] Care Team Providers Care Felt Coverer Name Role Phone Belkys Bundy Primary Care Provider +1- [phone] Encounter Details Date Type Department Care Team (Latest Contact Info) Description 10/18/2022 7:22 AM EDT - 10/18/2022 11:59 PM EDT Hospital [place] [address] COPD, very severe Discharge Disposition: Home Social History Tobacco Use [...] End Date inhalational spacing device (Ricci Aerosol [place] Enhancer) Spacer .MEDSUPPLY 02/01/2020 levothyroxine (Synthroid) 100 [...] 11 07/16/2020 fluticasone propionate (FLONASE) 50 mcg/actuation [place], Suspension 02/01/2020 atorvastatin (Lipitor) 20 mg Tablet [...] mg tablet 04/12/2013 predniSONE (Deltasone) 20 mg tabletIndications:BANK RECONCILIATOR D, very severe Take 1 tablet by mouth daily for 14 days. 14 tablet 10/18/2022 11/01/2022 nicotine (Nicoderm CQ) 21 mg/24 hr Patch 24 hrIndications:Tobacco use Change 1 patch on the skin daily. 28 patch 5 10/18/2022 02/07/2023 fluticasone-umeclidin ium-vilanterol (Trelegy Ellipta) 200-62.5-25 mcgIndications:COPD, very severe Inhale 1 puff into the lungs daily. 28 each 10/18/2022 11/16/2023 predniSONE (Deltasone) 20 mg tablet TAKE TWO TABLETS BY MOUTH EVERY DAY NEEDED FOR COPD EXACERBATION; ALERT FLATWORK SUPERVISOR AND PCP 09/01/2022 06/20/2023 potassium chloride (KLOR-CON) [...] 4:00 PM EDT [place] [address] Kira Thayer MD [facility] [place] [address] documented as of this encounter Procedures Procedure Name Priority Date/Time Associated Diagnosis Comments COMMON PULMONARY FUNCTION TEST Routine 10/18/2022 7:36 AM EDT COPD, very severe documented in this encounter Results * Pulmonary Function Testing (10/18/2022 7:36 AM EDT) FVC Actual Pre-BD 1.74 L COMPAS PFT FVC Pre-BD % of Predicted 49 % COMPAS PFT FVC Predicted 3.57 L COMPAS PFT FVC Pre-BD Z-Score -3.93 COMPAS PFT FVC Lower Limits of Normal 2.77 L COMPAS PFT FEV1 Actual Pre-BD 0.62 L COMPAS PFT FEV1 Pre-BD % of Predicted 22 % COMPAS PFT FEV1 Predicted 2.84 L COMPAS PFT FEV1 Pre-BD Z-Score -5.35 COMPAS PFT FEV1 Lower Limits of Normal 2.20 L COMPAS PFT FEV1 / FVC Actual Pre-BD 36 % COMPAS PFT FEV1/FVC Pre-BD Z-Score -4.70 COMPAS PFT FEV1 / FVC LLN 69 % COMPAS PFT [id number] Actual Pre-BD 0.23 L/s COMPAS PFT [id number] Pre-BD % of Predicted 8 % COMPAS PFT [id number] Predicted 2.71 L/s COMPAS PFT [id number] Pre-BD Z-Score -4.49 COMPAS PFT DLCO Hb Actual Pre-BD 8.19 mL/min/mmHg COMPAS PFT DLCO Hb Pre-BD % of Predicted 37 % COMPAS PFT DLCO Hb Pre-BD Z-Score -6.78 COMPAS PFT DLCO Hb Predicted 21.89 mL/min/mmHg COMPAS PFT DLCO UNC ACT PRE-BD 8.19 mL/min/mmHg COMPAS PFT DLCO UNC PRE-BD % of PRED 37 % COMPAS PFT DLCO UNC PRE-BD Z-SCORE -6.78 % COMPAS PFT DLCO UNC Predicted 21.89 mL/min/mmHg COMPAS PFT DLCO/VA Actual Pre-BD 1.85 mL/min/mmHg /L COMPAS PFT DLCO/VA Pre-BD % of Predicted 43 % COMPAS PFT DLCO/VA Pre-BD Z-Score -4.87 COMPAS PFT DLCO/VA Predicted 4.29 mL/min/mmHg /L COMPAS PFT Narrative COMPAS PFT - 10/18/2022 7:36 AM EDT FINDINGS: FEV1, FVC and FEV1/VC are reduced. Diffusion capacity not adjusted for hemoglobin is reduced. IMPRESSION: Spirometry demonstrates very severe (FEV1 < 35%) obstruction. Reduced FVC could represent co-existent restriction or air trapping. The presence of restriction or air trapping can be tested by measurement of lung volumes. Severe reduction in diffusing capacity (DLCO < 40%). Compared to the last study on 09/13/22, the FVC is not significantly changed, the FEV1 increased by 0.08 L and the DLCO increased by 15%. Obstruction combined with a reduced diffusion capacity suggests emphysema. Procedure Note Oscar Chavez MD - 10/18/2022 FINDINGS: FEV1, FVC and FEV1/VC are reduced. Diffusion capacity notadjusted for hemoglobin is reduced. IMPRESSION: Spirometry demonstrates very severe (FEV1 < 35%)obstruction. Reduced FVC could represent co-existent restriction or air trapping. The presence ofrestriction or air trapping can be tested by measurement of lung volumes. Severe reduction indiffusing capacity (DLCO < 40%). Compared to the last study on 09/13/22, the FVC is notsignificantly changed, the FEV1 increased by 0.08 L and the DLCO increased by 15%. Obstructioncombined with a reduced diffusion capacity suggests emphysema. Kira Thayer MD PFT ORDERABLES COMPAS PFT documented in this encounter Visit Diagnoses Diagnosis COPD, very severe Chronic airway obstruction, not elsewhere classified documented in this encounter Care Teams Felt Coverer Relationship Specialty Start Date End Date Belkys Bundy DO [address] [place] [address] PCP - General Family Medicine 03/21/19 documented as of this encounter
--- OUTSIDE RECORDS SUMMARY | 2024-03-29 08:13 | XMS_ITS | Encounter Summary ---
Author Organization [facility] [place] [address] Care Team Providers Care Investment Trader Name Role Phone Belkys Bundy Primary Care Provider +1- [phone] Encounter Details Date Type Department Care Team (Late st Contact Info) Description 03/31/2022 11:00 AM EST Office Visit [place] [address] Kira Thayer MD [facility] [place] [address] COPD, very severe; Supplemental oxygen dependent; Tobacco use; Environmental allergies Social History Tobacco Use Types Packs/Day Years Used Date Smoking Tobacco: Every Day Cigarettes 1 15 Smokeless Tobacco: Never Tobacco Cessation:Ready to [...] Sign Reading Time Taken Comments Blood Pressure 107/76 03/31/2022 10:44 AM EST Pulse 75 03/31/2022 10:44 AM EST Temperature 36 ??C (96.8 ??F) 03/31/2022 10: 44 AM EST Respiratory Rate 16 03/31/2022 10:4 4 AM EST Oxygen Saturation 97% 03/31/2022 10: 44 AM EST O2 @ 2L/min Inhaled Oxygen Concentration - - Weight 72.2 kg (159 lb 2.8 oz) 03/31/20 10:44 AM EST Height 166 cm (5' 5.35) 03/31/2022 10: 44 AM EST Body Mass Index 26.2 03/31/2022 10:44 AM EST documented in this encounter Progress Notes * Kira Thayer MD - 03/31/2022 11:00 AM EST Images from the original note were not included. [facility] Section of Pulmonary and Critical Care Medicine Outpatient Consultation Date of Encounter: 03/31/2022 Reason for Evaluation: Ms. Jessie Sanchez returns to the pulmonary clinic for follow-up of COPD and chronic oxygen dependence. I independently interviewed the patient, have examined the patient if this visit was conducted in the office and have reviewed available records. Dear Dr. Belkys Bundy, DO, As you know, Jessie Sanchez is a 51 y.o. female with emphysema and severe COPD with oxygen-dependence,allergies, and obesity, who was last seen in pulmonary clinic in September 2021. Follow-up in the fall was delayed due to covid19 exposure. She reports that she had quit smoking, but lapsed when she got stressed this fall, and is smoking again still. She plans to quit again. She did notice an increase in the cough when smoking again. Plans to quit again on Apr 11. Still has some chronic daily dyspnea on exertion. She has found azithromycin very helpful, but gets some increase in her baseline diarrhea on this. She feels chronic congestion in her chest. No hemoptysis, not much coming up. She had a cold in January; tested negative for covid19 multiple times recently. Did take prednisonefor this in January for a few days, helped. No recent antibiotics. She notes that her weight has been stable - she drinks 6-12 cokes a day, thinks this is part of whyshe can't lose weight. She was walking for activity in the fall, but doing less of this now due to the cold weather. She is using albuterol occasionally. Remains on trelegy daily, helping. Has been using home O2 consistently with activity and at night; 3L at rest, 3 pulse with activity. Zyrtec and singulair generally working well. As you will recall, did not feel morphine PRN for dyspnea was helpful (made her feel out of it.) She has had a covid19 vaccine primary series and some boosters. Current Medications at Start of Encounter: Outpatient Medications Prior to Visit Medication Sig Dispense Refill ??? inhalational spacing device (Ricci Aerosol [place] Enhancer) Spacer .MEDSUPPLY ??? levothyroxine (Synthroid) 100 mcg Tablet Take 100 mcg by mouth nightly. ??? linaCLOtide (Linzess) 72 mcg Capsule Take 72 mcg by mouth every morning. Take 30 minutes beforemeal ??? potassium chloride (KLOR-CON) 20 mEq Packet Take 20 mEq by mouth 2 times daily. ??? ntsfodpvlgv-syirxkcss-xzwohopn (Trelegy Ellipta) 200-62.5-25 mcg Disk with Device Inhale 1 Inhalation into the lungs daily. 28 each 11 ??? albuteroL 90 mcg/actuation HFA Aerosol Inhaler Inhale 2 puffs into the lungs every 4 hours as needed for Wheezing or Shortness of Breath. Use with spacer 36 g 5 ??? azithromycin (Zithromax) 500 mg Tablet Take 1 tablet by mouth three times a week. (Patient not taking: Reported on 09/09/2021) 13 tablet 11 ??? benzonatate (TESSALON) 200 mg Capsule Take 1 capsule by mouth 3 times daily as needed for Cough. 30 capsule 1 ??? montelukast (Singulair) 10 mg Tablet Take 1 tablet by mouth nightly. 30 tablet 11 ??? fluticasone propionate (FLONASE) 50 mcg/actuation [place], Suspension ??? nicotine (NICODERM CQ) 21 mg/24 hr Patch 24 hr APPLY ONE PATCH TO THE SKIN EVERY DAY ??? atorvastatin (Lipitor) 20 mg Tablet ??? [...] NEEDED FOR SHORTNESS OF BREATH/ WHEEZING ??? morphine IR (MSIR) 15 mg Tablet ??? citalopram (CELEXA) 40 mg Tablet Take [...] ORAL ??? DILTiazem (CARDIZEM) 30 mg tablet No facility-administered medications prior to visit. Review of Systems: A focused ROS was completed and was positive as noted in HPI, and otherwise negative. Physical Examination: BP 107/76 Pulse 75 Temp 36 ??C (96.8 ??F) (Temporal) Resp 16 Ht 166 cm (5' 5.35) Wt 72.2kg (159 lb 2.8 oz) SpO2 97% Comment: O2 @ 2L/min BMI 26.20 kg/m?? NAD, alert, conversational and well appearing RRR, no murmur Normal WOB at rest, persistently diminished breath sounds, no focal crackles or wheezing, no cyanosis or clubbing Abd soft, ND No joint swelling. She is ambulatory No significant edema Pulmonary Function Test Results: 06/03/2021: The [...] the FEV1, FVC and DLCO are stable. Labs, Microbiology and Imaging: I personally reviewed relevant laboratory, microbiologic and radiology results which were significant for: Chest CT 06/03/2021: stable small 4 mm and 5 mm lung nodules (now stable for 3 years); diffuse emphysema. CXR from OSH 08/2021 with hyperexpansion, no focal process. EKG 09/09/2021: NSR, no acute changes, QTc 454 A1AT level in 2013 was 146 (genotype results NEGATIVE for S or Z allele) Immunization History: Flu vaccine: has had flu vaccine COVID-19 vaccine: has had primary and booster Pneumovax: Impression and Recommendations: Jessie Sanchez is a 51 y.o. woman with emphysema and severe COPD with oxygen- dependence, very severe airflow obstruction, allergies, GERD and obesity, recurrent tobacco use, with acute COPD exacerbation2/2 flu infection causing hypercarbic respiratory failure and ICU admission August 2021, who returns re porting generally stable function. PFTs are stable at this visit. Previously this year assessment showed normal CO2 levels. She remains on triple inhaled therapy with high dose trelegy and is appropriately using albuterol and duonebs PRN. She is benefiting from chronic azithromycin but having side effects; we will try dosing 250 mg daily instead. She will continue using supplemental oxygen 2 LPM at rest and qHS/3LPM NC with ambulation/3 pulse at rest/4-5 pulse with ambulation. Flutter valve use encouraged PRN. Acute exacerbation plan includes prednisone 40 mg daily x 5 days. She participated in pulmonary rehab last winter, does not feel she needs to resume this now, but istrying to increase activity at home. She will qualify for lung cancer screening when she turns 55. No f/u currently indicated for prior stable small pulm nodules. She is smoking again; was counseled on the importance of tobacco cessation and she plans to quit again in April. We have previously discussed lung transplant evaluation and she is open to this. She is aware this will involve a referral to a center in [place]. Summary Recommendations: - continue trelegy inhaler 200 daily, albuterol MDI with spacer and duonebs PRN - continue singulair/zyrtec/flonase daily - continue chronic azithromycin but change dosing to change to 250 mg po daily - acute respiratory exacerbation plan includes prednisone 40 mg daily x 5 days, possibly longer forsevere exacerbations - increased activity encouraged - continue supplemental NC O2: 2LPM at rest and qHS/3 LPM continuous with activity/3 pulse at rest/4-5 pulse with activity on POC - continue flutter valve for airway clearance PRN - repeat yanet/DLCO with next visit Follow-up with in-office visit in 3 months. Thank you for involving me in Ms. Sanchez's care. Please feel free to contact me with any further questions or concerns. Kira Thayer MD [facility] AT [facility] [address] Dept: [phone] Loc: [phone] documented in this encounter Plan of Treatment Upcoming Encounters Date Type Department Care Team (Late st Contact Info) Description 08/27/2024 4:00 PM EDT Office Visit [place] [address] Kira Thayer MD [facility] [place] [address] documented as of this encounter Results * Pulmonary Function Testing (09/13/2022 7:27 AM EDT) FVC Actual Pre-BD 1.65 L COMPAS PFT FVC Pre-BD % of Predicted 46 % COMPAS PFT FVC Predicted 3.56 L COMPAS PFT FVC Pre-BD Z-Score -4.13 COMPAS PFT FVC Lower Limits of Normal 2.77 L COMPAS PFT FEV1 Actual Pre-BD 0.54 L COMPAS PFT FEV1 Pre-BD % of Predicted 19 % COMPAS PFT FEV1 Predicted 2.84 L COMPAS PFT FEV1 Pre-BD Z-Score -5.52 COMPAS PFT FEV1 Lower Limits of Normal 2.20 L COMPAS PFT FEV1 / FVC Actual Pre-BD 33 % COMPAS PFT FEV1/FVC Pre-BD Z-Score -4.87 COMPAS PFT FEV1 / FVC LLN 69 % COMPAS PFT [id number] Actual Pre-BD 0.19 L/s COMPAS PFT [id number] Pre-BD % of Predicted 7 % COMPAS PFT [id number] Predicted 2.71 L/s COMPAS PFT [id number] Pre-BD Z-Score -4.66 COMPAS PFT DLCO Hb Actual Pre-BD 7.14 mL/min/mmHg COMPAS PFT DLCO Hb Pre-BD % of Predicted 33 % COMPAS PFT DLCO Hb Pre-BD Z-Score -7.87 COMPAS PFT DLCO Hb Predicted 21.87 mL/min/mmHg COMPAS PFT DLCO UNC ACT PRE-BD 7.14 mL/min/mmHg COMPAS PFT DLCO UNC PRE-BD % of PRED 33 % COMPAS PFT DLCO UNC PRE-BD Z-SCORE -7.87 % COMPAS PFT DLCO UNC Predicted 21.87 mL/min/mmHg COMPAS PFT DLCO/VA Actual Pre-BD 1.60 mL/min/mmHg /L COMPAS PFT DLCO/VA Pre-BD % of Predicted 37 % COMPAS PFT DLCO/VA Pre-BD Z-Score -5.56 COMPAS PFT DLCO/VA Predicted 4.29 mL/min/mmHg /L COMPAS PFT Narrative COMPAS PFT - 09/13/2022 7:27 AM EDT FINDINGS: FEV1, FVC and FEV1/VC [...] 40%). Compared to the last study on 03/31/22, the FVC decreased by 0.3 L, the FEV1 decreased by 0.23 L and the DLCO decreased by 13%. Obstruction combined with a reduced diffusion capacity suggests emphysema. Procedure Note Scott Bradley MD - 09/14/2022 FINDINGS: FEV1, FVC and FEV1/VC are reduced. Diffusion capacity notadjusted for hemoglobin is reduced. IMPRESSION: Spirometry demonstrates very severe (FEV1 < 35%)obstruction. Reduced FVC could represent co-existent restriction or air trapping. The presence ofrestriction or air trapping can be tested by measurement of lung volumes. Severe reduction indiffusing capacity (DLCO < 40%). Compared to the last study on 03/31/22, the FVC decreased by0.3 L, the FEV1 decreased by 0.23 L and the DLCO decreased by 13%. Obstruction combinedwith a reduced diffusion capacity suggests emphysema. Kira Thayer MD PFT ORDERABLES COMPAS PFT documented in this encounter Visit Diagnoses Diagnosis COPD, very severe Chronic airway obstruction, not elsewhere classified Supplemental oxygen dependent Dependence on supplemental oxygen Tobacco use Tobacco use disorder Environmental allergies Allergic rhinitis, cause unspecified COPD, very severe Chronic airway obstruction, not elsewhere classified documented in this encounter Care Teams Investment Trader Relationship Specialty Start Date End Date Belkys Bundy DO [address] [place] [address] PCP - General Family Medicine 03/21/19 documented as of this encounter
--- OUTSIDE RECORDS SUMMARY | 2024-03-29 08:13 | XMS_ITS | Encounter Summary ---
[place] [address] Care Team Providers Care Marketing Performance Analyst Name Role Phone Belkys Bundy Primary Care Provider +1- [phone] Encounter Details Date Type Department Care Team (Latest Contact Info) Description 06/03/2021 8:30 AM EST - 06/03/2021 11:59 PM EST Hospital En[place] [address] COPD, very severe Discharge Disposition: Home Social [...] End Date inhalational spacing device (Ricci Aerosol [place] Enhancer) Spacer .MEDSUPPLY 02/01/2020 levothyroxine (Synthroid) 100 [...] 11 07/16/2020 fluticasone propionate (FLONASE) 50 mcg/actuation [place], Suspension 02/01/2020 atorvastatin (Lipitor) 20 mg Tablet [...] 05/28/2013 DILTiazem (CARDIZEM) 30 mg tablet 04/12/2013 potassium chloride (KLOR-CON) 20 mEq Packet Take 20 mEq by mouth 2 times daily. 11/27/2020 02/07/2023 predniSONE (Deltasone) 20 mg Tablet Take 2 tablets by mouth daily for 5 days. Start at onset of next COPD exacerbation (if increased shortness of breath, cough, wheezing.) 10 tablet 06/03/2021 06/08/2021 azithromycin (Zithromax) 500 mg Tablet Take 1 tablet by mouth three times a week. 13 tablet 11 06/03/2021 03/31/2022 fluticasone-umeclidin -vilanter (Trelegy Ellipta) 200-62.5-25 mcg Disk with DeviceIndications:ARCHEOLOGY PROFESSOR D, very severe Inhale 1 Inhalation into the lungs daily. 28 each 06/03/2021 06/28/2022 nicotine (NICODERM CQ) 21 mg/24 hr Patch 24 hr APPLY ONE PATCH TO THE SKIN EVERY DAY 05/13/2020 10/18/2022 morphine IR (MSIR) 15 mg Tablet 04/12/2019 02/07/2023 levothyroxine (SYNTHROID) 75 mcg Tablet Take 75 mcg by mouth daily. 06/24/2021 citalopram (CELEXA) 20 mg Tablet Take 20 mg by mouth nightly. 02/07/2023 traZODone (DESYREL) 100 mg Tablet Take 200 mg by mouth nightly. 06/20/2023 documented as of this encounter Plan of Treatment Upcoming Encounters Date Type Department Care Team (Late st Contact Info) Description 08/27/2024 4:00 PM EDT Office [place] [address] Kira Thayer MD [facility] [place] [address] documented as of this encounter Procedures Procedure Name Priority Date/Time Associated Diagnosis Comments COMMON PULMONARY FUNCTION TEST Routine 06/03/2021 8:40 AM EST COPD, very severe documented in this encounter Results * Pulmonary Function Testing (06/03/2021 8:40 AM EST) FVC Actual Pre-BD 1.90 L COMPAS PFT FVC Pre-BD % of Predicted 54 % COMPAS PFT FVC Predicted 3.55 L COMPAS PFT FVC Pre-BD Z-Score -3.59 COMPAS PFT FVC Lower Limits of Normal 2.77 L COMPAS PFT FEV1 Actual Pre-BD 0.71 L COMPAS PFT FEV1 Pre-BD % of Predicted 25 % COMPAS PFT FEV1 Predicted 2.83 L COMPAS PFT FEV1 Pre-BD Z-Score -5.23 COMPAS PFT FEV1 Lower Limits of Normal 2.20 L COMPAS PFT FEV1 / FVC Actual Pre-BD 37 % COMPAS PFT FEV1/FVC Pre-BD Z-Score -4.66 COMPAS PFT FEV1 / FVC LLN 69 % COMPAS PFT [id number] Actual Pre-BD 0.15 L/s COMPAS PFT SZZ77-16 Pre-BD % of Predicted 5 % COMPAS PFT [id number] Predicted 2.75 L/s COMPAS PFT OWS98-70 Pre-BD Z-Score -4.92 COMPAS PFT DLCO Hb Actual Pre-BD 8.68 mL/min/mmHg COMPAS PFT DLCO Hb Pre-BD % of Predicted 40 % COMPAS PFT DLCO Hb Pre-BD Z-Score -6.28 COMPAS PFT DLCO Hb Predicted 21.67 mL/min/mmHg COMPAS PFT DLCO UNC ACT PRE-BD 8.68 mL/min/mmHg COMPAS PFT DLCO UNC PRE-BD % of PRED 40 % COMPAS PFT DLCO UNC PRE-BD Z-SCORE -6.28 % COMPAS PFT DLCO UNC Predicted 21.67 mL/min/mmHg COMPAS PFT DLCO/VA Actual Pre-BD 1.98 mL/min/mmHg /L COMPAS PFT DLCO/VA Pre-BD % of Predicted 46 % COMPAS PFT DLCO/VA Pre-BD Z-Score -4.60 COMPAS PFT DLCO/VA Predicted 4.32 mL/min/mmHg /L COMPAS PFT Narrative COMPAS PFT - 06/03/2021 8:40 AM EST FINDINGS: FEV1, FVC and FEV1/VC are reduced. Diffusion capacity not adjusted for hemoglobin is reduced. IMPRESSION: Spirometry demonstrates very severe (FEV1 < 35%) obstruction. Reduced FVC could represent co-existent restriction or air trapping. The presence of restriction or air trapping can be tested by measurement of lung volumes. Moderate reduction in diffusing capacity (DLCO 40 to 60%). Compared to the last study on 02/18/21, the FVC decreased by 0.26 L, the FEV1 decreased by 0.25 L and the DLCO decreased by 23%. Obstruction combined with a reduced diffusion capacity suggests emphysema. Procedure Note Scott Bradley MD - 06/04/2021 FINDINGS: FEV1, FVC and FEV1/VC are reduced. Diffusion capacity notadjusted for hemoglobin is reduced. IMPRESSION: Spirometry demonstrates very severe (FEV1 < 35%)obstruction. Reduced FVC could represent co-existent restriction or air trapping. The presence ofrestriction or air trapping can be tested by measurement of lung volumes. Moderate reductionin diffusing capacity (DLCO 40 to 60%). Compared to the last study on 02/18/21, the FVCdecreased by 0.26 L, the FEV1 decreased by 0.25 L and the DLCO decreased by 23%. Obstructioncombined with a reduced diffusion capacity suggests emphysema. Kira Thayer MD PFT ORDERABLES COMPAS PFT documented in this encounter Visit Diagnoses Diagnosis COPD, very severe Chronic airway obstruction, not elsewhere classified documented in this encounter Care Teams Marketing Performance Analyst Relationship Specialty Start Date End Date Belkys Bundy DO [address] [facility] [place] [address] PCP - General Family Medicine 03/21/19 documented as of this encounter
--- OUTSIDE RECORDS SUMMARY | 2024-03-29 08:13 | XMS_ITS | Encounter Summary ---
Author Organization [facility] [place] [address] Care Team Providers Care Production Broaching Machine Operator Name Role Phone Belkys Bundy DO Primary Care Provider +1- [phone] Encounter Details Date Type Department Care Team (Late st Contact Info) Description 08/05/2022 [place] [phone] Millicent Valles Social History Tobacco Use Types [...] 4:00 PM EDT [place] [phone] Kira Thayer MD [facility] [place] [address] documented as of this encounter Visit Diagnoses Not on filedocumented in this encounter Care Teams Production Broaching Machine Operator Relationship Specialty Start Date End Date Belkys Bundy DO [address] [place] [address] PCP - General Family Medicine 03/21/19 documented as of this encounter
--- OUTSIDE RECORDS SUMMARY | 2024-03-29 08:13 | XMS_ITS | Encounter Summary ---
[place] [address] Care Team Providers Care Recruiting Intern Name Role Phone Belkys Bundy Primary Care Provider +1- [phone] Encounter Details Date Type Department Care Team (Latest Contact Info) Description 09/13/2022 7:20 AM EDT - 09/13/2022 11:59 PM EDT Hospital Encounter [place] [address] COPD, very severe Discharge Disposition: Home Social [...] End Date inhalational spacing device (Ricci Aerosol [place] Enhancer) Spacer .MEDSUPPLY 02/01/2020 levothyroxine (Synthroid) 100 [...] 11 07/16/2020 fluticasone propionate (FLONASE) 50 mcg/actuation [place], Suspension 02/01/2020 atorvastatin (Lipitor) 20 mg Tablet [...] mg tablet 04/12/2013 predniSONE (Deltasone) 20 mg tablet TAKE TWO TABLETS BY MOUTH EVERY DAY NEEDED FOR COPD EXACERBATION; ALERT INTERNET SALESPERSON AND PCP 09/01/2022 06/20/2023 predniSONE (Deltasone) 10 mg tabletIndications:MANAGER OF DEVELOPMENT D with exacerbation After finishing 40 mg for 5 days take 30 mg for 5 days then 20 mg for 5 days then 10 mg for 5 days then stop. 30 tablet 09/13/2022 10/18/2022 fluticasone-umeclidin ium-vilanterol (Trelegy Ellipta) 200-62.5-25 mcgIndications:COPD, very severe Inhale 1 puff into the lungs daily. 28 each 11 07/27/2022 10/18/2022 azithromycin (Zithromax Z-Adama) 250 mg TabletIndications:MANAGER OF DEVELOPMENT D, very severe Take 1 tablet by mouth daily for 180 days. 30 tablet 5 03/31/2022 09/27/2022 potassium chloride (KLOR-CON) 20 mEq Packet Take 20 mEq by mouth 2 times daily. 11/27/2020 02/07/2023 nicotine (NICODERM CQ) 21 mg/24 hr Patch [...] PM EDT Office [place] [address] Kira Thayer MD [facility] [place] [address] documented as of this encounter Procedures Procedure Name Priority Date/Time Associated Diagnosis Comments COMMON PULMONARY FUNCTION TEST Routine 09/13/2022 7:27 AM EDT COPD, very severe documented in [...] / FVC LLN 69 % COMPAS PFT [id number] Actual Pre-BD 0.19 L/s COMPAS PFT GNA32-97 Pre-BD % of Predicted 7 % COMPAS PFT [id number] Predicted 2.71 L/s COMPAS PFT OFI21-73 Pre-BD Z-Score -4.66 COMPAS PFT DLCO Hb [...] suggests emphysema. Kira Thayer MD PFT ORDERABLES Performing Organization Address City/State/[facility] Co de Phone Number COMPAS PFT documented in this encounter Visit Diagnoses Diagnosis COPD, very severe Chronic airway obstruction, not elsewhere classified documented in this encounter Care Teams Recruiting Intern Relationship Specialty Start Date End Date Belkys Bundy DO [address] [place] [address] PCP - General Family Medicine 03/21/19 documented as of this encounter
--- OUTSIDE RECORDS SUMMARY | 2024-03-29 08:13 | XMS_ITS | Encounter Summary ---
Author Organization [facility] [place] [address] Care Team Providers Care Grinder Brake Lining Name Role Phone Belkys Bundy DO Primary Care Provider +1- [phone] Encounter Details Date Type Department Care Team (Latest Contact Info) Description 03/31/2022 Travel Social History Tobacco Use Types Packs/Day [...] 4:00 PM EDT [place] [address] Kira Thayer MD [facility] [place] [address] documented as of this encounter Visit Diagnoses Not on filedocumented in this encounter Care Teams Grinder Brake Lining Relationship Specialty Start Date End Date Belkys Bundy DO [address] [place], [place] [address] PCP - General Family Medicine 03/21/19 documented as of this encounter
--- OUTSIDE RECORDS SUMMARY | 2024-03-29 08:13 | XMS_ITS | Encounter Summary ---
Author Organization [facility] Address [facility] [place] [address] Care Team Providers Care Women Specialist Name Role Phone Belkys Bundy DO Primary Care Provider +1- [phone] Encounter Details Date Type Department Care Team (Latest Contact Info) Description 06/03/2021 Travel Social History Tobacco Use Types Packs/Day [...] 4:00 PM EDT [place] [address] Kira Thayer MD [facility] [place] [address] documented as of this encounter Visit Diagnoses Not on filedocumented in this encounter Care Teams Women Specialist Relationship Specialty Start Date End Date Belkys Bundy DO [address] [place] [address] PCP - General Family Medicine 03/21/19 documented as of this encounter
--- OUTSIDE RECORDS SUMMARY | 2024-03-29 08:13 | XMS_ITS | Encounter Summary ---
Author Organization [facility] Address [facility] [place] [address] Care Team Providers Care Cognos Report Developer Name Role Phone Belkys Bundy Primary Care Provider +1- [phone] Encounter Details Date Type Department Care Team (Late st Contact Info) Description 09/09/2021 9:00 AM EDT Office [place] [address] Kira Thayer MD [facility] [address] COPD, very severe; Supplemental oxygen dependent; Cigarette [...] Sign Reading Time Taken Comments Blood Pressure 99/65 09/09/2021 8:17 AM EDT Pulse 85 09/09/2021 8:17 AM EDT Temperature 35.6 ??C (96 ??F) 09/09/2021 8:17 AM EDT Respiratory Rate 18 09/09/2021 8:17 AM EDT Oxygen Saturation 95% 09/09/2021 8:17 AM EDT 3L Inhaled Oxygen Concentration - - Weight 73.8 kg (162 lb 12.8 oz) 09/09/2021 8:17 AM EDT Height 165.1 cm (5' 5) 09/09/2021 8:17 AM EDT Body Mass Index 27.09 09/09/2021 8:17 AM EDT documented in this encounter Progress Notes * Kira Thayer MD - 09/09/2021 9:00 AM EDT Images from the original note were not included. [facility] Section of Pulmonary and Critical Care Medicine Outpatient Consultation Date of Encounter: 09/09/2021 Reason for Evaluation: Ms. Jessie Sanchez returns [...] was last seen in pulmonary clinic in May 2021. Unfortunately she developed acute illness with flu infection mid-August, hospitalized initially in ICUfor hypercarbic respiratory failure requiring BiPAP, treated with steroids including solumedrol initially, antibiotics, discharged on abx and prednisone. She has finished the prednisone. She feels week, tired still. Sleeping a lot. She is wheezing some. She is still coughing up yellow to clear sputum. Short of breath; a bit better after the hospitalization but not recovered to baseline. She is feeling nauseous. But not vomiting. Taste is fine. Has lost about 8 lbs with this recent illness. Did have fever with her flu diagnosis, but not after hospitalization. In addition to the flu in mid-August, we had treated for an exacerbation at the end of July with doxycycline and prednisone; she isn't sure it made a difference. She noticed a little GERD recently, took rolaids a few times. She is doing well with treley inhaler. Taking consistently. Hospital advised her to stop the azithromycin with recent admission while on other antibiotics. Nebulized duonebs treatments aren't helping much right now. Has been using home O2 consistently with activity and at night; 3L at rest, 3 pulse with activity. Zyrtec and singulair generally working well. As you will recall, did not feel morphine PRN for dyspnea was helpful (made her feel out of it.) Prior smoking, 1ppd, quit about a month ago. She has had a covid19 vaccine primary series, booster #1 02/12/2021 Current Medications at Start of Encounter: Outpatient Medications Prior to Visit Medication Sig Dispense Refill ??? inhalational spacing device (Ricci Aerosol [place] Enhancer) Spacer .MEDSUPPLY ??? levothyroxine (Synthroid) 100 mcg Tablet Take 100 mcg by mouth nightly. ??? sokjkxjlywd-zyxeuqoot-liqwvjsr (Trelegy Ellipta) 200-62.5-25 mcg Disk with Device Inhale 1 Inhalation into the lungs daily. 28 each 11 ??? albuteroL 90 mcg/actuation HFA Aerosol Inhaler Inhale 2 puffs into the lungs every 4 hours as needed for Wheezing or Shortness of Breath. Use with spacer 36 g 5 ??? benzonatate (TESSALON) 200 mg Capsule Take 1 capsule by mouth 3 times daily as needed for Cough. 30 capsule 1 ??? montelukast (Singulair) 10 mg Tablet Take 1 tablet by mouth nightly. 30 tablet 11 ??? fluticasone propionate (FLONASE) 50 mcg/actuation [place], Suspension ??? atorvastatin (Lipitor) 20 mg Tablet [...] NEEDED FOR SHORTNESS OF BREATH/ WHEEZING ??? citalopram (CELEXA) 40 mg Tablet Take 40 mg by mouth every morning. ??? mirabegron (MYRBETRIQ ORAL) Take 20 mg [...] ??? DILTiazem (CARDIZEM) 30 mg tablet ??? linaCLOtide (Linzess) 72 mcg Capsule Take 72 mcg by mouth every morning. Take 30 minutes beforemeal ??? potassium chloride (KLOR-CON) 20 mEq Packet Take 20 mEq by mouth 2 times daily. ??? azithromycin (Zithromax) 500 mg Tablet Take 1 tablet by mouth three times a week. (Patient not taking: Reported on 09/09/2021) 13 tablet 11 ??? nicotine (NICODERM CQ) 21 mg/24 hr Patch 24 hr APPLY ONE PATCH TO THE SKIN EVERY DAY ??? morphine IR (MSIR) 15 mg Tablet ??? citalopram (CELEXA) 20 mg Tablet Take 20 mg by mouth nightly. No facility-administered medications prior to visit. Review of Systems: A focused ROS was completed and was positive as noted in HPI, and otherwise negative. Physical Examination: BP 99/65 Pulse 85 Temp 35.6 ??C (96 ??F) (Temporal) Resp 18 Ht 165.1 cm (5' 5) Wt 73.8 kg (162 lb 12.8 oz) SpO2 95% Comment: 3L BMI 27.09 kg/m?? In no distress, fatigued appearing but conversational and not in distress RRR, no murmur Normal WOB at rest, diminished breath sounds, no focal crackles or wheezing, no cyanosis or clubbing Abd soft, ND No joint swelling. She is ambulatory No significant edema, not tender Pulmonary Function Test Results: 06/03/2021: The FEV1 is very severely reduced, the FVC is moderately reduced and the FEV1/FVC is reduced. The DLCO is moderately reduced. IMPRESSION: Severe airflow obstruction, with moderately impaired diffusing capacity. Compared with prior testing Feb 2021 the FEV1, FVC and DLCO are again reduced. Ambulatory O2 testing updated 09/09/2021 - see RT note for details Labs, Microbiology and Imaging: I personally reviewed [...] allele) Immunization History: Flu vaccine: has had 2020 flu vaccine COVID-19 vaccine: has had primary and booster Pneumovax: Prevnar-13: Impression and Recommendations: Jessie Sanchez is a 51 y.o. woman with emphysema and severe COPD with oxygen- dependence, very severe airflow obstruction declining over the winter, allergies, GERD and obesity, recent tobacco use, who unfortunately has had recent acute COPD exacerbation involving hypercarbic respiratory failure and ICU admission August 2021 associated with influenza infection. Today we checked a tidal CO2 in clinic andit was within a normal range, with no evidence of chronic hypercarbia. Oxygen ambulatory assessmentwith her visit today shows she has slightly increased supplemental O2 needs compared with pre-exacerbation. She has recently quit smoking again, which I applauded. We reviewed the importance of remaining abstinent. She remains on inhaled therapy with high dose trelegy and is appropriately using albuterol and duonebs PRN. We checked an EKG in the office, and QTc is normal. She should resume azithromycin 500 mg po three times weekly. She will continue using supplemental oxygen 2 LPM at rest and qHS/3LPM NC with ambulation/3 pulse at rest/4-5 pulse with ambulation. Flutter valve use encouraged PRN. Acute exacerbation plan includes prednisone 40 mg daily x 5 days. She participated in pulmonary rehab last winter, does not feel she needs to resume this now. Working on slowly increasing activity at home was encouraged. She will qualify for lung cancer screening when she turns 55. No f/u currently indicated for prior stable small pulm nodules. We discussed lung transplant evaluation. Mrs. Sanchez is interested in a referral for lung transplantassessment. She is aware this will involve a referral to a center in [place]. Summary Recommendations: - continue trelegy inhaler 200 [...] flutter valve for airway clearance PRN - yanet/DLCO with next visit Referral for lung transplant evaluation now. Follow-up with in-office visit in 2 months. Thank you for involving me in Ms. Sanchez's care. Please feel free to contact me with any further questions or concerns. I personally spent 30 minutes of this encounter with the patient discussing their pulmonary diseaseand treatment recommendations as outlined in my assessment and plan above. This visit involved a total of 50 minutes of clinical time on day of visit. Kira Thayer MD [facility] PULMONOLOGY AT [facility] [address] Dept: [phone] Loc: [phone] documented in this encounter Plan of Treatment Upcoming Encounters Date Type Department Care Team (Late st Contact Info) Description 08/27/2024 4:00 PM EDT Office [place] [address] Kira Thayer MD [facility] [place] [address] documented as of this encounter Results * Pulmonary Function Testing (03/31/2022 8:40 AM EST) FVC Actual Pre-BD 1.95 L COMPAS PFT FVC Pre-BD % of Predicted 54 % COMPAS PFT FVC Predicted 3.58 L COMPAS PFT FVC Pre-BD Z-Score -3.48 COMPAS PFT FVC Lower Limits of Normal 2.79 L COMPAS PFT FEV1 Actual Pre-BD 0.77 L COMPAS PFT FEV1 Pre-BD % of Predicted 27 % COMPAS PFT FEV1 Predicted 2.85 L COMPAS PFT FEV1 Pre-BD Z-Score -5.07 COMPAS PFT FEV1 Lower Limits of Normal 2.21 L COMPAS PFT FEV1 / FVC Actual Pre-BD 39 % COMPAS PFT FEV1/FVC Pre-BD Z-Score -4.53 COMPAS PFT FEV1 / FVC LLN 69 % COMPAS PFT [id number] Actual Pre-BD 0.30 L/s COMPAS PFT [id number] Pre-BD % of Predicted 11 % COMPAS PFT HMG33-30 Predicted 2.74 L/s COMPAS PFT KHQ91-50 Pre-BD Z-Score -4.27 COMPAS PFT DLCO Hb Actual Pre-BD 8.19 mL/min/mmHg COMPAS PFT DLCO Hb Pre-BD % of Predicted 37 % COMPAS PFT DLCO Hb Pre-BD Z-Score -6.80 COMPAS PFT DLCO Hb Predicted 21.91 mL/min/mmHg COMPAS PFT DLCO UNC ACT PRE-BD 8.19 mL/min/mmHg COMPAS PFT DLCO UNC PRE-BD % of PRED 37 % COMPAS PFT DLCO UNC PRE-BD Z-SCORE -6.80 % COMPAS PFT DLCO UNC Predicted 21.91 mL/min/mmHg COMPAS PFT DLCO/VA Actual Pre-BD 1.74 mL/min/mmHg /L COMPAS PFT DLCO/VA Pre-BD % of Predicted 40 % COMPAS PFT DLCO/VA Pre-BD Z-Score -5.19 COMPAS PFT DLCO/VA Predicted 4.30 mL/min/mmHg /L [facility] PFT [facility] - 03/31/2022 8:40 AM EST FINDINGS: FEV1, FVC and [...] 40%). Compared to the last study on 06/03/21, the FVC, FEV1 and DLCO are not significantly changed. Obstruction combined with a reduced diffusion capacity suggests emphysema. Procedure Note Unknown - 04/16/2022 FINDINGS: FEV1, FVC and FEV1/VC are reduced. Diffusion capacity notadjusted for hemoglobin is reduced. IMPRESSION: Spirometry demonstrates very severe (FEV1 < 35%)obstruction. Reduced FVC could represent co-existent restriction or air trapping. The presence ofrestriction or air trapping can be tested by measurement of lung volumes. Severe reduction indiffusing capacity (DLCO < 40%). Compared to the last study on 06/03/21, the FVC, FEV1 andDLCO are not significantly changed. Obstruction combined with a reduced diffusioncapacity suggests emphysema. Kira Thayer MD PFT ORDERABLES COMPAS PFT documented in this encounter Visit Diagnoses Diagnosis COPD, very severe Chronic airway obstruction, not elsewhere classified Supplemental oxygen dependent Dependence on supplemental oxygen Cigarette nicotine dependence in remission Tobacco use disorder COPD, very severe Chronic airway obstruction, not elsewhere classified documented in this encounter Care Teams Cognos Report Developer Relationship Specialty Start Date End Date Belkys Bundy DO [address] [place] [address] PCP - General Family Medicine 03/21/19 documented as of this encounter
--- OUTSIDE RECORDS SUMMARY | 2024-03-29 08:13 | XMS_ITS | Encounter Summary ---
[place] [address] Care Team Providers Care Information Systems Consultant Name Role Phone Belkys Bundy Primary Care Provider +1- [phone] Reason for Visit * Reason Onset Date Comments Other 09/01/2021 Received ER note s and CXR results from [facility] for dates of service 08/21/2021-08/25/2021. Will send message to Dr. Thayer. Encounter Details Date Type Department Care Team (Late st Contact Info) Description 09/01/2021 Telephone [place] [address] Elise Murphy RN Other (Received ER notes and CXR results from [facility] for dates of service 08/21/2021-08/25/2021. Will send message to Dr. Thayer.) Social History Tobacco Use Types Packs/Day Years [...] encounter Miscellaneous Notes * Telephone Encounter - Elise Murphy RN - 09/01/2021 9:11 AM EDT I have called [facility] medical records to request for pt's ER notes and CXR results and images. MALACHI Staley, RN Department of Pulmonary 5C, [facility] Pager: [phone] documented in this encounter Plan of Treatment Upcoming Encounters Date Type Department Care Team (Late st Contact Info) Description 08/27/2024 4:00 PM EDT Office [place] [address] Kira Thayer MD [facility] [place] [address] documented as of this encounter Visit Diagnoses Not on filedocumented in this encounter Care Teams Information Systems Consultant Relationship Specialty Start Date End Date Belkys Bundy DO [address] [place] [address] PCP - General Family Medicine 03/21/19 documented as of this encounter
--- OUTSIDE RECORDS SUMMARY | 2024-03-29 08:13 | XMS_ITS | Encounter Summary ---
[place] [address] Care Team Providers Care Yard Labor Supervisor Name Role Phone Belkys Bundy Primary Care Provider +1- [phone] Reason for Visit * Reason Onset Date Comments Labs Only 09/13/2022 Oxygen Dependence 09/13/2022 Encounter Details Date Type Department Care Team (Late st Contact Info) Description 09/13/2022 Tele[place] [id number] Emily Starr RN Labs Only; Oxygen Dependence Social History Tobacco Use Types Packs/Day Years [...] Telephone Encounter - Emily Starr RN - 09/13/2022 12:52 PM EDT RN called to Katey Johnson at [facility], and was able to speak to her directly. RN relayed patient concerns of faulty equipment. Katey confirmed patient was serviced by [facility], and would connect with their support team to rectify problems with machine with patient. * Telephone Encounter - Emily Starr RN - 09/13/2022 12:50 PM EDT Faxed completed Lab Order Requisition, signed by Dr. Thayer, to [facility]. Attached to this was the following items: Patient Demographics This covered the following items: Lower Respiratory Culture AFB Culture Fax submission confirmation time stamped for 09/13/2022 @ 1248. 5 pages with cover sheet. documented in this encounter Plan of Treatment Upcoming Encounters Date Type Department Care Team (Late st Contact Info) Description 08/27/2024 4:00 PM EDT Office [place] [address] Kira Thayer MD [facility] [place] [address] documented as of this encounter Visit Diagnoses Not on filedocumented in this encounter Care Teams Yard Labor Supervisor Relationship Specialty Start Date End Date Belkys Bundy DO [address] [place] [address] PCP - General Family Medicine 03/21/19 documented as of this encounter
--- OUTSIDE RECORDS SUMMARY | 2024-03-29 08:13 | XMS_ITS | Encounter Summary ---
Author Organization [facility] [place] [address] Care Team Providers Care Marketing Development Manager Name Role Phone AnaBelkys moise Primary Care Provider +1- [phone] Encounter Details Date Type Department Care Team (Late st Contact Info) Description 05/20/2021 [place] [phone] Millicent Valles Social History Tobacco Use Types [...] 4:00 PM EDT [place] [address] Kira Thayer MD [facility] [place] [address] documented as of this encounter Visit Diagnoses Not on filedocumented in this encounter Care Teams Marketing Development Manager Relationship Specialty Start Date End Date Belkys Bundy DO [address] [place] [address] PCP - General Family Medicine 03/21/19 documented as of this encounter
--- OUTSIDE RECORDS SUMMARY | 2024-03-29 08:13 | XMS_ITS | Encounter Summary ---
Author Organization [facility] [place] [address] Care Team Providers Care Parts Finisher Name Role Phone Belkys Bundy DO Primary Care Provider +1- [phone] Encounter Details Date Type Department Care Team (Late st Contact Info) Description 08/21/2021 Ancillary Procedure Radiology Library at [facility] [place] [address] Belkys Bundy, DO [address] [place], [place] [id number] Social History Tobacco Use Types Packs/Day Years [...] 4:00 PM EDT Office Visit Pulmonology at [facility] [place] [phone] Kira Thayer MD [facility] [place] [address] documented as of this encounter Procedures Procedure Name Priority Date/Time Associated Diagnosis Comments FILM LIBRARY STORAGE ONLY DX CHEST Routine 08/21/2021 12:00 AM EDT documented in this encounter Results * Film Library- Storage Only DX Chest (08/21/2021 12:00 AM EDT) Narrative YUMIKO - 09/01/2021 11:25 AM EDT This exam is auto-finalizing. It's purpose is for storage only. Belkys Bundy DO IMG FILM LIBRARY O RDERABLES Performing Organization Address City/State/[facility] Co de Phone Number [place], [place] documented in this encounter Visit Diagnoses Not on filedocumented in this encounter Care Teams Parts Finisher Relationship Specialty Start Date End Date Belkys Bundy DO [address] [place] [address] PCP - General Family Medicine 03/21/19 documented as of this encounter
--- OUTSIDE RECORDS SUMMARY | 2024-03-29 08:13 | XMS_ITS | Encounter Summary ---
[place] [address] Care Team Providers Care Lunchroom Operator Name Role Phone Belkys Bundy Primary Care Provider +1- [phone] Reason for Visit * Reason Onset Date Comments Disability Paperwork 08/05/2022 Encounter Details Date Type Department Care Team (Late st Contact Info) Description 08/05/2022 [place] [phone] Emily Starr RN Disability Paperwork Social History [...] Telephone Encounter - Emily Starr RN - 08/05/2022 3:51 PM EDT Rn faxed copy of disability paperwork filled and signed by Dr. Thayer to [facility]. Fax submission confirmation time stamped for 08/05/2022 @ 0628. 4 pages with coversheet. Mailed copy of original paperwork to patient's address on file. Sent copy to scanning for inclusionto patient records. documented in this encounter Plan of Treatment Upcoming Encounters Date Type Department Care Team (Late st Contact Info) Description 08/27/2024 4:00 PM EDT Office [place] [address] MD [facility] [place] [address] documented as of this encounter Visit Diagnoses Not on filedocumented in this encounter Care Teams Lunchroom Operator Relationship Specialty Start Date End Date Belkys Bundy DO [address] [place] [address] PCP - General Family Medicine 03/21/19 documented as of this encounter
--- OUTSIDE RECORDS SUMMARY | 2024-03-29 08:13 | XMS_ITS | Encounter Summary ---
Author Organization [facility] [place] [address] Care Team Providers Care News Assistant Name Role Phone Belkys Bundy Primary Care Provider +1- [phone] Encounter Details Date Type Department Care Team (Latest Contact Info) Description 08/05/2022 3:00 PM EDT TH Visit (TeleHealth) [place] [address] Kira Thayer MD [facility] [place] [address] COPD, very severe; Supplemental oxygen dependent; Tobacco use Social History Tobacco Use Types [...] Progress Notes * Kira Thayer MD - 08/05/2022 3:00 PM EDT Images from the original note were not included. [facility] Section of Pulmonary and Critical Care Medicine Outpatient Consultation Date of Encounter: 08/05/2022 TELEHEALTH VISIT Patient identity was confirmed at beginning of this telehealth visit. Patient is aware that this telehealth visit replaces an in-office clinical evaluation, is a billable encounter and agrees to continue. The patient is in [place]. Reason for Evaluation: Ms. Jessie Sanchez returns [...] was last seen in pulmonary clinic in March 2022. Mrs. Sanchez reports she had pneumonia a couple weeks ago, treated with dual antibiotics, improving but still with fatigue, increased dyspnea, ongoing wet productive cough. Early in the illness she hadsome hemoptysis with the mucous, which is what prompted her to go to the ED. She saw PCP today for follow-up. Chest CT was done at [facility] a couple weeks ago, and she was told she had some fluid on her lungs as well. At baseline before recent pneumonia she had chronic daily dyspnea on exertion, with a chronic non-productive cough. Having diarrhea; no longer taking the azithromycin daily. PCP working on evaluating dark stools. She is using albuterol occasionally. Remains on trelegy daily, helping. Has been using home O2 consistently with activity and at night; 3L at rest, 3 pulse with activity. Zyrtec and singulair generally working well. As you will recall, did not feel morphine PRN for dyspnea was helpful (made her feel out of it.) She is smoking now, 1/2 ppd. Stress is a trigger. Hoping to cut down again and try to quit soon. 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 She was working at [facility] [employer]. She thinks she stopped working in 2012. Paperwork for disability previously filled out by [facility] PCP. Jessie currently feels that carrying her oxygen tankand getting short of breath walking short distances make it impossible to return to work. She gets easily confused by paperwork, writing, reading and does not feel comfortable using computers. When she gets stressed she has a hard time breathing. Current Medications at Start of Encounter: Outpatient Medications Prior to Visit Medication Sig Dispense Refill ??? qmuxvgrntiq-nfmytkkvqkem-pxcejrdffs (Trelegy Ellipta) 200-62.5-25 mcg Inhale 1 puff into the lungs daily. 28 each 11 ??? inhalational spacing device (Ricci Aerosol [place] Enhancer) Spacer .MEDSUPPLY ??? levothyroxine (Synthroid) 100 mcg Tablet Take 100 mcg by mouth nightly. ??? potassium chloride (KLOR-CON) 20 mEq Packet Take 20 mEq by mouth 2 times daily. ??? albuteroL 90 mcg/actuation HFA Aerosol Inhaler [...] 11 ??? fluticasone propionate (FLONASE) 50 mcg/actuation [place], Suspension ??? nicotine (NICODERM CQ) 21 mg/24 [...] Take 200 mg by mouth nightly. ??? buPROPion (WELLBUTRIN SR) 150 mg Tablet Sustained Release Take 150 mg by mouth 2 times daily. ??? IBUPROFEN ORAL ??? DILTiazem (CARDIZEM) 30 mg tablet ??? azithromycin (Zithromax Z-Adama) 250 mg Tablet Take 1 tablet by mouth daily for 180 days. (Patient not taking: Reported on 08/05/2022) 30 tablet 5 ??? linaCLOtide (Linzess) 72 mcg Capsule Take 72 mcg by mouth every morning. Take 30 minutes beforemeal ??? morphine IR (MSIR) 15 mg Tablet ??? omeprazole (PRILOSEC) 20 mg Capsule, Delayed Release(E.C.) Take 20 mg by mouth daily as needed. ??? docusate sodium (COLACE) 100 mg Capsule Take 100 mg by mouth 3 times daily as needed for Constipation. No facility-administered medications prior to visit. Review of Systems: A focused ROS was completed and was positive as noted in HPI, and otherwise negative. Physical Examination: Telehealth visit; exam limited. Conversational, NAD, normal WOB. Pulmonary Function Test Results: 06/03/2021: The FEV1 [...] diffuse emphysema. CTA chest 07/15/2022: no PE, patchy infiltrates RML and RLL, 5 mm RUL nodule, small pericardial effusion EKG 09/09/2021: NSR, no acute changes, QTc [...] respiratory failure and ICU admission August 2021, and now recent CHF exacerbation with fluctuating respiratory symptoms. She has significant baseline exertional dyspnea, but has had some improvement with escalation of COPD treatment. She remains on triple inhaled therapy with high dose trelegy and is appropriately using albuterol and duonebs PRN. She is unable to tolerate chronic azithromycin due to GI side effects. She will continue using supplemental oxygen 2 LPM at rest and qHS/3LPM NC with ambulation/3 pulse at rest/4-5 pulse with ambulation. Flutter valve use encouraged PRN. Acute exacerbation plan includes prednisone 40 mg daily x 5 days. She participated in pulmonary rehab last winter, does not feel she needs to resume this now, she will continue working to increase activity at home. She will qualify for lung cancer screening when she turns 55. No f/u currently indicated for stablesmall pulm nodules. She is still smoking; we discussed benefit of cutting down and quitting, and she is thinking about this. We have previously discussed lung transplant evaluation and she is open to this. She is aware this will involve a referral to a center in [place], and that she needs to quit smoking before transplant would be an option. She would like to continue talking about this. We reviewed her history of inability to continue work beginning around 2012 due to severe COPD withhypoxic respiratory failure on chronic supplemental O2; I completed her disability paperwork based on this information and review of her available records in our system. Summary Recommendations: - continue trelegy inhaler 200 daily, albuterol MDI with spacer and duonebs PRN - continue singulair/zyrtec/flonase daily - acute respiratory exacerbation plan includes prednisone 40 mg daily x 5 days, possibly longer forsevere exacerbations, consider azithromycin 5 day course as well - increased activity encouraged - continue supplemental NC O2: 2LPM at rest and qHS/3 LPM continuous with activity/3 pulse at rest/4-5 pulse with activity on POC - continue flutter valve for airway clearance PRN - repeat yanet/DLCO with next visit - Disability paperwork completed Follow-up with in-office visit in 1 month as previously scheduled Thank you for involving me in Ms. Sanchez's care. Please feel free to contact me with any further questions or concerns. I personally spent 30 minutes of this encounter with the patient discussing their pulmonary diseaseand treatment recommendations as outlined in my assessment and plan above. This visit involved a total of 40 minutes of clinical time on day of visit. Kira Thayer MD [facility] PULMONOLOGY AT [facility] [address] Dept: [phone] Loc: [phone] documented in this encounter Plan of Treatment Upcoming Encounters Date Type Department Care Team (Late st Contact Info) Description 08/27/2024 4:00 PM EDT Office [place] [address] Kira Thayer MD [facility] DR PULMONARY MEDICINE [place] [id number] documented as of this encounter Visit Diagnoses Diagnosis COPD, very severe Chronic airway obstruction, not elsewhere classified Supplemental oxygen dependent Dependence on supplemental oxygen Tobacco use Tobacco use disorder documented in this encounter Care Teams News Assistant Relationship Specialty Start Date End Date Belkys Bundy DO [address] [place] [address] PCP - General Family Medicine 03/21/19 documented as of this encounter
--- OUTSIDE RECORDS SUMMARY | 2024-03-29 08:13 | XMS_ITS | Encounter Summary ---
Author Organization [facility] [place] [address] Care Team Providers Care Crocodile Farmer Name Role Phone Belkys Bundy Primary Care Provider +1- [phone] Encounter Details Date Type Department Care Team (Late st Contact Info) Description 07/08/2021 [place] [phone] Juanis Osullivan, RT Social History Tobacco Use Types Packs/Day [...] Telephone Encounter - Juanis Osullivan RT - 07/08/2021 3:39 PM EDT O2 DME vendor requesting requalification for home O2 by mid September. Reviewed schedule, currently has an appointment with Dr. mejia on 09/09 at 9 am., will plan to add home O2 evaluation at 8:30 am on 09/09/21. Zoe will notify her home O2 DME provider of this. documented in this encounter Plan of Treatment Upcoming Encounters Date Type Department Care Team (Late st Contact Info) Description 08/27/2024 4:00 PM EDT [place] [address] Kira Mejia MD [facility] [place] [address] documented as of this encounter Visit Diagnoses Not on filedocumented in this encounter Care Teams Crocodile Farmer Relationship Specialty Start Date End Date Belkys Bundy DO [address] [place] [address] PCP - General Family Medicine 03/21/19 documented as of this encounter
--- OUTSIDE RECORDS SUMMARY | 2024-03-29 08:13 | XMS_ITS | Encounter Summary ---
[place] [address] Care Team Providers Care Business Development Recruiter Name Role Phone Belkys Bundy Virginie MYRICK Primary Care Provider +1- [phone] Reason for Referral * Diagnostic Test (Routine) - Closed Specialty Diagnoses / Procedures Referred By Contac t Referred To Contact Radiology Diagnoses Pulmonary nodule Procedures CT Chest wo Contrast (Generic) Kira Thayer MD [facility] [place] [address] [facility] [place] [address] Referral ID Status Reason Start Date Expiration Date V isits Requested Visits Authorized [id number] Closed Specialty Service Requested 03/02/2021 08/30/2022 1 1 Reason for Visit * Diagnostic Test (Routine) - Closed Specialty Diagnoses / Procedures Referred By Contac t Referred To Contact Radiology Diagnoses Pulmonary nodule Procedures CT Chest wo Contrast (Generic) Kira Thayer MD [facility] [address] [facility] [place] [address] Referral ID Status Reason Start Date Expiration Date V isits Requested Visits Authorized [id number] Closed Specialty Service Requested 03/02/2021 08/30/2022 1 1 Encounter Details Date Type Department Care Team (Latest Contact Info) Description 06/03/2021 7:29 AM EST - 06/03/2021 8:29 AM EST Hospital Encounter CT Scan at [facility] [place] [address] Kira Thayer MD [facility] [place] [address] Pulmonary nodule Discharge Disposition: Home Social History Tobacco Use [...] End Date inhalational spacing device (Ricci Aerosol [place] Enhancer) Spacer .MEDSUPPLY 02/01/2020 levothyroxine (Synthroid) 100 mcg Tablet Take 100 mcg by mouth nightly. 06/11/2020 linaCLOtide (Linzess) 72 mcg Capsule Take 72 mcg by mouth as needed. Take 30 minutes before meal 05/09/2020 benzonatate (TESSALON) 200 mg Capsule Take 1 capsule by mouth 3 times daily as needed for Cough. 30 capsule 1 01/09/2021 montelukast (Singulair) 10 mg Tablet Take 1 tablet by mouth nightly. 30 tablet 11 07/16/2020 fluticasone propionate (FLONASE) 50 mcg/actuation [place], Suspension 02/01/2020 atorvastatin (Lipitor) 20 mg Tablet [...] 4:00 PM EDT [place] [phone] Kira Thayer MD [facility] [place] [address] documented as of this encounter Procedures Procedure Name Priority Date/Time Associated Diagnosis Comments CT CHEST WO CONTRAST (GENERIC) Routine 06/03/2021 7:45 AM EST Pulmonary nodule documented in this encounter Results * CT Chest wo Contrast (Generic) (06/03/2021 7:45 AM EST) Anatomical Region Laterality Modality Chest Computed Tomogra phy 06/03/2021 8:01 AM EST Impressions 06/03/2021 9:35 AM EST Greater than 3 year stability of 4 mm left apical and 5 mm right upper lobe pulmonary nodules, to be considered benign. None new. Thank you for letting us participate in the care of this patient. ??If you are a health care provider and have any questions regarding this report, please contact the number below. ??For patients who have questions please contact the health early breastfeeding care specialist that requested your imaging first. ? Electronically signed by: Cori Schmidt MD, [facility] ([phone]), at 06/03/2021 9:35 AM Narrative 06/03/2021 9:35 AM EST EXAMINATION: CT CHEST WO CONTRAST (GENERIC) CLINICAL HISTORY: Lung nodule, < 6mm, high cancer risk, initial follow up exam 4 mm lung nodule left apex new as of 03/2028, f/u imaging of this requested now; former heavy smoker. TECHNIQUE: 3 mm thick axial contiguous sections were obtained through the chest via helical acquisition without intravenous contrast administration. Thin-section reconstructions as well as coronal and sagittal reformatted images were generated. COMPARISON: March 28, 2018 FINDINGS: Pulmonary parenchyma: Centrilobular emphysematous changes. No consolidation. No mass. Stable 4 mm left apical and 5 mm right upper lobe pulmonary nodules. None new. Airways: Chronic bronchial wall thickening without filling defect Pleura: No pneumothorax. No pleural effusion. Lymph nodes: None enlarged. Heart, pericardium, and great vessels: Normal heart size. Trace physiologic pericardial effusion. Maximum caliber of the smooth-walled ascending thoracic aorta stable at 3 cm. No belkofski coronary artery calcification. Other mediastinal structures: No significant findings. Lower neck: No significant findings. Upper abdomen: Normal adrenal gland contours Body wall soft tissues: No muscular asymmetry Skeletal structures: No acute fractures. No suspicious lesions. Procedure Note Cori Schmidt MD - 06/03/2021 EXAMINATION: CT CHEST WO CONTRAST (GENERIC) CLINICAL HISTORY: Lung nodule, < 6mm, high cancer risk, initial follow upexam 4 mm lung nodule left apex new as of 03/2028, f/u imaging of thisrequested now; former heavy smoker. TECHNIQUE: 3 mm thick axial contiguous sections were obtained through thechest via helical acquisition without intravenous contrast administration. Thin-section reconstructions as well as coronal and sagittal reformattedimages were generated. COMPARISON: March 28, 2018 FINDINGS: Pulmonary parenchyma: Centrilobular emphysematous changes. Noconsolidation. No mass. Stable 4 mm left apical and 5 mm right upper lobe pulmonary nodules.None new. Airways: Chronic bronchial wall thickening without filling defect Pleura: No pneumothorax. No pleural effusion. Lymph nodes: None enlarged. Heart, pericardium, and great vessels: Normal heart size. Tracephysiologic pericardial effusion. Maximum caliber of the smooth-walled ascendingthoracic aorta stable at 3 cm. No belkofski coronary artery calcification. Other mediastinal structures: No significant findings. Lower neck: No significant findings. Upper abdomen: Normal adrenal gland contours Body wall soft tissues: No muscular asymmetry Skeletal structures: No acute fractures. No suspicious lesions. IMPRESSION Greater than 3 year stability of 4 mm left apical and 5 mm right upperlobe pulmonary nodules, to be considered benign. None new. Thank you for letting us participate in the care of this patient. If youare a health care provider and have any questions regarding this report,please contact the number below. For patients who have questions please contactthe health early breastfeeding care specialist that requested your imaging first. Electronically signed by: Cori Schmidt MD, [facility]([phone]), at 06/03/2021 9:35 AM Kira Thayer MD IMG CT ORDERABLES documented in this encounter Visit Diagnoses Diagnosis Pulmonary nodule Solitary pulmonary nodule documented in this encounter Care Teams Business Development Recruiter Relationship Specialty Start Date End Date Belkys Bundy DO [address] [place] [address] PCP - General Family Medicine 03/21/19 documented as of this encounter
--- OUTSIDE RECORDS SUMMARY | 2024-03-29 08:13 | XMS_ITS | Encounter Summary ---
Author Organization [facility] [place] [address] Care Team Providers Care Mastic Sprayer Name Role Phone Belkys Bundy Primary Care Provider +1- [phone] Reason for Visit * Reason Onset Date Comments Cough 08/06/2021 COPD 08/06/2021 Excessive Phlegm 08/06/2021 Encounter Details Date Type Department Care Team (Late st Contact Info) Description 08/06/2021 [place] [id number] Emily Starr RN Cough; COPD; Excessive Phlegm Social History Tobacco Use Types Packs/Day Years [...] Telephone Encounter - Kira Thayer MD - 08/07/2021 1:05 PM EDT Spoke with Mrs. Sanchze. Many days of sinus congestion, now dyspnea, increased cough, lots of thick yellow mucous with bad taste. Confirms on current inhalers, azithromycin. No fevers. Not feeling unable to breathing. Mother in law has covid, was with her last Tuesday, but Jessie tested negative 2 days ago. She will retest today. She started some prednisone she had at home yesterday (40 mg), already feels it is helping. A/P: COPD exacerbation, possible bacterial bronchitis. Start doxycycline BID x 7 days, prednisone 40 daily x 5 days, rx sent to pharmacy. If covid19 positive at home this week recommend treatment; she will call back if positive. Kira Thayer MD * Telephone Encounter - Bryce Starr-Heidi Read RN - 08/06/2021 12:07 PM EDT Rec'd MyDH message from patient as follows: 08/06/21 11:[address] Thayer ?? I have a resperinfection that I just can't seem to get rid of can I please have some antibiotic andprednisone Thanks jessie CARMONA called to [facility] in [facility], confirming that patient had previously picked up prednisone prescription from 06/03/2021. Caller: RN to Patient Relationship: Self Clarified Two Patient Identifiers: [x] Reason For Call: Cough, COPD, and Excessive Phlegm Jessie Sanchez, 1970. Past Medical History: Diagnosis Date ??? Anxiety ??? COPD (chronic obstructive pulmonary disease) ??? Depression ??? GERD (gastroesophageal reflux disease) ??? Hypothyroidism Review of Systems Related to Reason for Call: System POS NEG Not Applicable Head (ENT /Neuro) [x] [] [] Cardiac [] [] [] Respiratory [x] [] [] GI [] [] [] [] [] [] Musculoskeletal [] [] [] Integumentary [] [] [] Mental Health [] [] [] Review of Symptoms Related to Reason for Call: Symptom POS NEG Not Applicable Cough [x] [] [] Increased Sputum Production [x] [] [] Sputum Discoloration [x] [] [] Headache [x] [] [] Chest Tightness [] [x] [] Airway Tightness [] [x] [] Wheezing [x] [] [] Throat swelling [] [x] [] Increased Oxygen Demands [] [x] [] Rebound longer than 5 min. [] [] [x] <90% O2 sat at rest [] [] [] Increased MDI/Neb Usage [] [x] [] Does this last < 2 hours? [] [] [x] Speaking complete sentences [x] [] [] Swelling in extremities [] [] [] Discoloration extremities [] [] [] Abnormal temp in extremities [] [] [] Fever [] [x] [] New changes to medications [] [] [] Positive Symptoms: + Productive cough + Thickened yellow secretions + Foul taste Tastes like infection + Minor wheezing. + Minor headache, thinks this might have been due to glasses. Denies: - Covid Notes: Patient states that her symptoms have been happening for a while now, and initially thought this was due to weather or seasonal allergies. Medication and Therapy Review: Per chart review, patient had been placed on three times a week 500 mg azithromycin, and given a 5 day course of 40 mg PO daily for COPD exacerbation. Patient confirmed that she continues on azithromycin as prescribed, and that she had previously utilized her prednisone from May. Preferred Pharmacy: [facility] in [facility]. Confirmed Returned Contact Number: [phone] documented in this encounter Plan of Treatment Upcoming Encounters Date Type Department Care Team (Late st Contact Info) Description 08/27/2024 4:00 PM EDT Office [place] [address] Kira Thayer MD [facility] [place] [address] documented as of this encounter Visit Diagnoses Diagnosis COPD with exacerbation Obstructive chronic bronchitis with exacerbation documented in this encounter Care Teams Mastic Sprayer Relationship Specialty Start Date End Date Belkys Bundy DO [address] [place] [phone] PCP - General Family Medicine 03/21/19 documented as of this encounter
--- OUTSIDE RECORDS SUMMARY | 2024-03-29 08:13 | XMS_ITS | Encounter Summary ---
Author Organization [facility] Address [facility] [place] [address] Care Team Providers Care Flower Picker Name Role Phone Belkys Bundy Primary Care Provider +1- [phone] Encounter Details Date Type Department Care Team (Late st Contact Info) Description 09/13/2022 8:00 AM EDT Office [place] [address] Kira Thayer MD [facility] [address] COPD, very severe; COPD with exacerbation Social History Tobacco Use Types Packs/Day Years [...] Sign Reading Time Taken Comments Blood Pressure 116/68 09/13/2022 7:40 AM EDT Pulse 78 09/13/2022 7:40 AM EDT Temperature 35.8 ??C (96.4 ??F) 09/13/2022 7:40 AM ED T Respiratory Rate 20 09/13/2022 7:40 AM EDT Oxygen Saturation 95% 09/13/2022 7:40 AM EDT Inhaled Oxygen Concentration - - Weight 72 kg (158 lb 11.7 oz) 09/13/2022 7:40 AM EDT Height 166 cm (5' 5.35) 09/13/2022 7:40 AM EDT Body Mass Index 26.13 09/13/2022 7:40 AM EDT documented in this encounter Patient Instructions * Patient Instructions* Kira Thayer MD - 09/13/2022 8:00 AM EDT Let's extend the prednisone course. Finish the azithromycin this week. Take a sputum sample to [facility] lab. documented in this encounter Progress Notes * Kira Thayer MD - 09/13/2022 8:00 AM EDT Images from the original note were not included. [facility] Section of Pulmonary and Critical Care Medicine Outpatient Consultation Date of Encounter: 09/13/2022 Reason for Evaluation: Ms. Jessie Sanchez returns [...] was last seen in pulmonary clinic in July 2022. Mrs. Sanchez reports she is dealing with some increased respiratory symptoms, more short of breath over the past couple weeks, with increased sputum production, fatigue, warm feeling last night. She wonders if she might have a pneumonia brewing again. She is coughing more at night, and not sleeping well. Still has a lot of dyspnea on exertion with activities like walking. She did use prednisone a few weeks ago, helped with dyspnea and fatigue. She is also on prednisone and azithromycin again now, feels it is helping some, but prednisone effect doesn't last long. She denies LE edema or chest pains. Sinus congestion and drip are active again this spring. She has not been very active recently, plans to join a gym again and start regular exercise soon. Diarrhea was an issue for a long time, better over the past few weeks. Will see GI soon. She thinks her home oxygen concentrator is not working, feels better when on other oxygen supplies,and the machines has an alarm light on and is sometimes turning itself off. She is using albuterol occasionally. Remains on trelegy daily, helping. Has been using home O2 consistently with activity and at night; 3L at rest, 3 pulse with activity. Zyrtec and singulair generally working well. As you will recall, did not feel morphine PRN for dyspnea was helpful (made her feel out of it.) She is smoking now, about 1/2 ppd. Trying patches again. 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 28 each 11 inhalational spacing device (Ricci Aerosol Trimble Enhancer) Spacer .MEDSUPPLY levothyroxine (Synthroid) 100 mcg [...] tablet 11 fluticasone propionate (FLONASE) 50 mcg/actuation [facility], Suspension nicotine (NICODERM CQ) 21 mg/24 hr Patch 24 hr APPLY ONE PATCH TO THE SKIN EVERY DAY atorvastatin (Lipitor) 20 mg Tablet cyclobenzaprine (Flexeril) [...] IBUPROFEN ORAL DILTiazem (CARDIZEM) 30 mg tablet azithromycin (Zithromax Z-Adama) 250 mg Tablet Take 1 tablet by mouth daily for 180 days. (Patient not taking: Reported on 08/05/2022) 30 tablet 5 potassium chloride (KLOR-CON) 20 mEq Packet Take 20 mEq by mouth 2 times daily. morphine IR (MSIR) 15 mg Tablet citalopram (CELEXA) 20 mg Tablet Take 20 mg by mouth nightly. No facility-administered medications prior to visit. Review of Systems: A focused ROS was completed and was positive as noted in HPI, and otherwise negative. Physical Examination: BP 116/68 Pulse 78 Temp 35.8 ??C (96.4 ??F) (Temporal) Resp 20 Ht 166 cm (5' 5.35) Wt 72kg (158 lb 11.7 oz) SpO2 95% BMI 26.13 kg/m?? NAD, alert, conversational MMM, neck supple Regular rate, no murmur Normal WOB at rest, quiet breath sounds, scattered exp wheeze LE without significant edema Pulmonary Function Test Results: 06/03/2021: [...] FEV1, FVC and DLCO are all reduced. Labs, Microbiology and Imaging: I personally [...] oxygen- dependence, very severe airflow obstruction, allergies, CHF, GERD and obesity, recurrent tobacco use, with acute COPD exacerbation 2/2 flu infection causing hypercarbic respiratory failure and ICU admission August 2021, with increases in dyspnea recently related to CHF exacerbation and now seemingly related to COPD exacerbation with acute decline in lung function (FEV1 now 19% predicted, lowest its ever been.) I recommended we extend her treatment for acute COPD exacerbation now with extended prednisone taper after current burst/azithromcyin, and obtain sputum cultures to rule out new infection. We will repeat lung function testing in close follow up next month to ensure this is recovery, consider repeat chest CT soon if symptoms are not resolving. She has been on triple inhaled therapy with high dose trelegy with benefit, and is appropriately using albuterol and duonebs PRN. She is unable to tolerate chronic azithromycin due to GI side effects. She is already using supplemental oxygen 2 LPM at rest and qHS/3LPM NC with ambulation/3 pulse at rest/4-5 pulse with ambulation. Home care company messaged day of visit about poorly functioning oxygen concentrator. Flutter valve use encouraged PRN for airway clearance. She participated in pulmonary rehab last winter, does not feel she needs to resume this now, she will continue working to increase activity at home. Depending on her respiratory exacerbation unfolds we may need to repeat CT imaging soon to follow up on the patchy infiltrates seen in July 2022; I would like to see how she feels with prednisone course first. She will qualify for lung cancer screening when she turns 55. No f/u currently indicated for stablesmall pulm nodules seen 07/2022. She is still smoking; we discussed benefit of cutting down and quitting, and she is thinking about this. We have previously discussed lung transplant evaluation and she is open to this in concept. She is aware this will involve a referral to a center in [place], and that she needs to quit smoking before transplant would be an option. She would like to continue talking about this over time. She has been disabled beginning around 2012 due to severe COPD with hypoxic respiratory failure on chronic supplemental O2; I completed updated disability paperwork in July 2022 documenting pulmonary limitations and care needs. Summary Recommendations: - prednisone course extended: After finishing 40 mg for 5 days take 30 mg for 5 days then 20 mg for5 days then 10 mg for 5 days then stop, rx sent - complete azithromycin course as prescribed - sputum culture now bacterial and AFB - continue trelegy inhaler 200 daily, albuterol MDI with spacer and duonebs PRN - continue singulair/zyrtec/flonase daily - increased activity encouraged this summer - continue supplemental NC O2: 2LPM at rest and qHS/3 LPM continuous with activity/3 pulse at rest/4-5 pulse with activity on POC - continue flutter valve for airway clearance, increased use encouraged - repeat yanet/DLCO with next visit Follow-up with in-office visit in 1 month Thank you for involving me in Ms. Sanchez's care. Please feel free to contact me with any further questions or concerns. I personally spent 30 minutes of this encounter with the patient discussing their pulmonary diseaseand treatment recommendations as outlined in my assessment and plan above. This visit involved a total of 35 minutes of clinical time on day of visit. MD Omari Hogue [facility] PULMONOLOGY AT [facility] [address] Dept: [phone] Loc: [phone] documented in this encounter Plan of Treatment Upcoming Encounters Date Type Department Care Team (Late st Contact Info) Description 08/27/2024 4:00 PM EDT Office Visit [place] [address] Kira Thayer MD [facility] [place] [address] documented as of this encounter Procedures Procedure Name Priority Date/Time Associated Diagnosis Comments AFB CULTURE Routine 09/13/2022 8:43 AM EDT LOWER RESPIRATORY CULTURE Routine 09/13/2022 8:43 AM EDT documented in this encounter Results * Pulmonary [...] / FVC LLN 69 % COMPAS PFT AIL89-13 Actual Pre-BD 0.23 L/s COMPAS PFT SNO15-74 Pre-BD % of Predicted 8 % COMPAS PFT YAB89-31 Predicted 2.71 L/s COMPAS PFT MOG46-08 Pre-BD Z-Score -4.49 COMPAS PFT DLCO Hb [...] Thayer MD PFT ORDERABLES Performing Organization Address City/[facility] Co de Phone Number COMPAS PFT * AFB culture (09/13/2022 8:43 AM EDT) Acid Fast Bacilli Culture No Acid Fast Bacilli isolated If active tuberculosis is suspected, the patient should be on [employer] PRECAUTIONS. Call Infection Prevention for assistance if needed. [facility] Acid Fast Stain No Acid Fast Bacilli seen [facility] Sputum Expectorated 09/14/19 8:43 AM EDT 09/13/2022 9:13 AM EDT Narrative Resulting Agency Comment Spec In Lab Kira Thayer MD MICROBIOLOGY - GENER AL ORDERABLES Performing Organization Address [facility] Co de Phone Number [facility] [place] [address] * (ABNORMAL) Lower Respiratory Culture (09/13/2022 8:43 AM EDT) Lower Respiratory Culture Many mixed bacterial morphotypes suggestive of normal upper respiratory roxanne(A) [facility] Gram Stain Many Neutrophils seen Moderate squamous epithelial cells seen Many Gram Positive Cocci seen (A) [facility] Organism Gram Positive Cocci(A) [facility] Sputum Expectorated 09/14/19 8:43 AM EDT 09/13/2022 9:12 AM EDT Narrative Resulting Agency Comment Spec In Lab Kira Thayer MD MICROBIOLOGY - GENER AL ORDERABLES Performing Organization Address [facility] Co de Phone Number [facility] [place] [address] documented in this encounter Visit Diagnoses Diagnosis COPD, very severe Chronic airway obstruction, not elsewhere classified COPD with exacerbation Obstructive chronic bronchitis with exacerbation COPD, very severe Chronic airway obstruction, not elsewhere classified documented in this encounter Care Teams Flower Picker Relationship Specialty Start Date End Date Belkys Bundy DO [address] [place] [address] PCP - General Family Medicine 03/21/19 documented as of this encounter
--- OUTSIDE RECORDS SUMMARY | 2024-03-29 08:13 | XMS_ITS | Encounter Summary ---
[place] [address] Care Team Providers Care Final Armature Tester Name Role Phone Belkys Bundy Primary Care Provider +1- [phone] Reason for Visit * Reason Onset Date Comments Other 10/01/2021 Trelegy Ellipta Encounter Details Date Type Department Care Team (Late [facility]) Description 10/01/2021 [place] [phone] Emily Starr RN Other (Trelegy Ellipta) Social History Tobacco Use Types Packs/Day Years [...] Telephone Encounter - Emily Starr RN - 10/01/2021 1:27 PM EDT RN called [facility] in [facility] to confirm patient was able to get Trelegy ellipta. RN was notified that patient's next dispense was ready for leaf size picker. documented in this encounter Plan of Treatment Upcoming Encounters Date Type Department Care Team (Late st Contact Info) Description 08/27/2024 4:00 PM EDT Office [place] [address] Kira Thayer MD [facility] [place] [address] documented as of this encounter Visit Diagnoses Not on filedocumented in this encounter Care Teams Final Armature Tester Relationship Specialty Start Date End Date Belkys Bnudy DO [address] [place] [phone] PCP - General Family Medicine 03/21/19 documented as of this encounter
--- OUTSIDE RECORDS SUMMARY | 2024-03-29 08:13 | XMS_ITS | Encounter Summary ---
[place] [address] Care Team Providers Care Feed Mill Operator Name Role Phone Belkys Bundy Primary Care Provider +1- [phone] Reason for Referral * Diagnostic Test (Routine) - Closed Specialty Diagnoses / Procedures Referred By Rossy levine Referred To Contact Radiology Diagnoses Bacterial pneumonia Procedures CT Chest wo Contrast (Generic) Kira Thayer MD [facility] [place] [address] [facility] [place] [address] Referral ID Status Reason Start Date Expiration Date V isits Requested Visits Authorized [id number] Closed Specialty Service Requested 10/18/2022 04/20/2024 1 1 Encounter Details Date Type Department Care Team (Late st Contact Info) Description 10/18/2022 8:00 AM EDT Office [place] [address] Kira Thayer MD [facility] [place] [address] COPD, very severe; Tobacco use; Bacterial pneumonia Social History Tobacco Use Types Packs/Day Years [...] Sign Reading Time Taken Comments Blood Pressure 113/64 10/18/2022 7:57 AM EDT Pulse 90 10/18/2022 7:57 AM EDT Temperature 36.4 ??C (97.6 ??F) 10/18/2022 7 :57 AM EDT Respiratory Rate 20 10/18/2022 7:57 AM EDT Oxygen Saturation 95% 10/18/2022 7:5 7 AM EDT 2L of 02 via NC Inhaled Oxygen Concentration - - Weight 72 kg (158 lb 11.7 oz) 7:57 AM EDT Height 166.1 cm (5' 5.39) 10/18/2022 7 :57 AM EDT Body Mass Index 26.1 10/18/2022 7:57 AM EDT documented in this encounter Patient Instructions * Patient Instructions* Kira Thayer MD - 10/18/2022 8:00 AM EDT Bloodwork today to look at carbon dioxide level. Chest Ct in next 1-2 weeks. Restart prednisone at 20 mg daily. Sputum culture sent today. Start exercise. documented in this encounter Progress Notes * Kira Thayer MD - 10/18/2022 8:00 AM EDT Images from the original note were not included. [facility] Section of Pulmonary and Critical Care Medicine Outpatient Consultation Date of Encounter: 10/18/2022 Reason for Evaluation: Ms. Jessie Sanchez returns [...] last seen in pulmonary clinic in September 2022. Mrs. Sanchez reports she is still feeling not at baseline. After her last visit we extended her prednisone course, but she stopped it after a few days because she was worried it would cause weight gain. She was also completing a course of azithromycin around the time of her last visit. She feels her breathing got a little worse after stopping the prednisone but hadn't noticed a huge improvement on the prednisone. Biggest issues is feeling like she can't get a breath in. She feels very fatigued with any walking, not able to do as much as before. Still has increased mucous production, still coughing a lot, coughing up sputum daily. Some wheezing, but not escalating. No fevers or recent infections. Denies hemoptysis. Did have some neck soreness recently with ear pain, improving. Denies GERD on a regular basis, occasionally takes rolaid for mild symptoms. Sometimes getting left arm pain. No association with exertion. Self-resolving, identifies elbow as the location it lasted for a few minutes recently. Still smoking 1 ppd. Up from 1/2 ppd. Not currently using patches. She is using albuterol occasionally. Remains on [...] Prior to Visit Medication Sig Dispense Refill svsgednwqod-ppjeznvyqrpw-lthznniukp (Trelegy Ellipta) 200-62.5-25 mcg Inhale 1 puff into the lungs daily. 28 each 11 inhalational spacing device (Ricci Aerosol [place] Enhancer) Spacer .MEDSUPPLY levothyroxine (Synthroid) 100 mcg [...] tablet 11 fluticasone propionate (FLONASE) 50 mcg/actuation [place], Suspension atorvastatin (Lipitor) 20 mg Tablet cyclobenzaprine (Flexeril) 10 mg Tablet Take 10 mg by mouth as needed. dicyclomine (BENTYL) 20 mg Tablet TAKE 1 TABLET BY MOUTH TWICE A DAY IF NEEDED FOR STOMACH UPPSET nicotine (NICODERM CQ) 21 mg/24 hr Patch 24 hr APPLY ONE PATCH TO THE SKIN EVERY DAY cetirizine (ZyrTEC) 10 mg Tablet Take 10 mg by mouth daily. ipratropium-albuteroL (DUONEB) 0.5 mg-3 mg(2.5 mg base)/3 mL Solution for Nebulization USE 1 VIAL VIA NEBULIZER 4 TIMES A DAY NEEDED FOR SHORTNESS OF BREATH/ WHEEZING citalopram (CELEXA) 40 mg Tablet Take 40 mg by mouth every morning. citalopram (CELEXA) 20 mg Tablet Take 20 mg by mouth nightly. mirabegron (MYRBETRIQ ORAL) Take 20 mg by [...] IBUPROFEN ORAL DILTiazem (CARDIZEM) 30 mg tablet predniSONE (Deltasone) 20 mg tablet TAKE TWO TABLETS BY MOUTH EVERY DAY NEEDED FOR COPD EXACERBATION; ALERT PAPER INSPECTOR AND PCP predniSONE (Deltasone) 10 mg tablet After finishing 40 mg for 5 days take 30 mg for 5 days then 20 mg for 5 days then 10 mg for 5 days then stop. (Patient not taking: Reported on 10/18/2022) 30 tablet0 potassium chloride (KLOR-CON) 20 mEq Packet Take 20 mEq by mouth 2 times daily. morphine IR (MSIR) 15 mg Tablet No facility-administered medications prior to visit. Review of Systems: A focused ROS was completed and was positive as noted in HPI, and otherwise negative. Physical Examination: BP 113/64 Pulse 90 Temp 36.4 ??C (97.6 ??F) (Temporal) Resp 20 Ht 166.1 cm (5' 5.39) Wt 72 kg (158 lb 11.7 oz) SpO2 95% Comment: 2L of 02 via NC BMI 26.10 kg/m?? NAD, alert, conversational, appears tired but non-toxic appearing MMM, neck supple Regular rate, no murmur Some increase in WOB with conversation, diminished breath sounds throughout, soft end exp wheeze LE without significant edema Pulmonary [...] 5 mm RUL nodule, small pericardial effusion Bact resp culture 09/13/2022: mixed upper roxanne, many neutrophils, gram positive cocci seen but not cultured AFB sputum culture 09/13/2022: smear negative, culture NGTD EKG 09/09/2021: NSR, no acute changes, QTc [...] GERD and obesity, recurrent tobacco use, with history of respiratory exacerbations including acute hypoxic/hypercarbic COPD exacerbation 2/2 flu infection with ICU admission August 2021, 2/2 CHF exacerbations, and now protracted COPD exacerbation with acute decline in lung function this summer. Unfortunately she did not experience significant benefit with prednisone and azithromycin in September, though she stopped the prednisone prematurely due to her fear it might cause weight gain. She is still wheezing, and lung function remains below baseline (severe obstruction again with [id number] increased to 22% predicted); I recommended we restart prednisone at a low dose which she is open to doing now at 20 mg daily. We discussed dietary strategies to limit weight gain on prednisone. With ongoing respiratory symptoms we will also repeat a sputum culture (culture from September had oral contamination and was non-diagnostic), and repeat a chest CT to follow up on her pneumonia infiltrates seen in July 2022. With her diminished lung function she is at risk for chronic hypercapnia; VBG requested. She has been on triple inhaled therapy with high dose trelegy with benefit, and is appropriately using albuterol and duonebs PRN. She is unable to tolerate chronic azithromycin due to GI side effects. She is already using supplemental oxygen 2-3 LPM at rest and qHS/3LPM NC with ambulation/3 pulse atrest/4-5 pulse with ambulation. Flutter valve use encouraged PRN for airway clearance. Increased exercise encouraged: She participated in pulmonary rehab last winter, does not feel she needs to resume this now, she will continue working to increase activity at home and she plans to rejoin a gym locally. She will qualify for lung cancer screening when she turns 55. No specific timed f/u currently indicated for stable small pulm nodules seen 07/2022. She is still smoking, more now (1 ppd) than previously this year; I counseled her on the importanceof cessation and she will retry patches. We have previously discussed lung transplant evaluation and she is open to this in concept. She is aware this will involve a referral to a center in [place], and that she needs to quit smoking before transplant would be an option. She would like to continue talking about this over time. She has been disabled beginning around 2012 due to severe COPD with hypoxic respiratory failure on chronic supplemental O2; I completed updated disability paperwork in July 2022 documenting pulmonary limitations and care needs. Summary Recommendations: - restart prednisone 20 mg po daily - repeat sputum culture now - VBG - chest CT ordered - start nicotine patches 14 mcg, prescribed - continue trelegy inhaler 200 daily, albuterol MDI with spacer and duonebs PRN - continue singulair/zyrtec/flonase daily - increased activity encouraged - continue supplemental NC O2: 2-3LPM at rest and qHS/3 LPM continuous with activity/3 pulse at rest/4-5 pulse with activity on POC - continue flutter valve for airway clearance, increased use encouraged Follow-up with in-office visit in 4 weeks Thank you for involving me in Ms. Sanchez's care. Please feel free to contact me with any further questions or concerns. I personally spent 25 minutes of this encounter with the patient discussing their pulmonary diseaseand treatment recommendations as outlined in my assessment and plan above. This visit involved a total of 30 minutes of clinical time on day of visit. Kira Thayer MD [facility] PULMON[facility] AT [facility] [address] Dept: [phone] Loc: [phone] documented in this encounter Plan of Treatment Upcoming Encounters Date Type Department Care Team (Late st Contact Info) Description 08/27/2024 4:00 PM EDT Office [place] [address] Kira Thayer MD [facility] [place] [address] documented as of this encounter Procedures Procedure Name Priority Date/Time Associated Diagnosis Comments BLOOD GAS VENOUS ([facility]) Routine 10/18/2022 8:56 AM EDT LOWER RESPIRATORY CULTURE Routine 10/18/2022 8:38 AM EDT COPD, very severe documented in this encounter Results * CT [...] who have questions please contact the health lawn caretaker that requested your imaging first. ? Electronically signed by: Raheem Morin MD, [facility] ??([phone]), at 10/25/2022 10:54 AM Narrative 10/25/2022 10:54 AM EDT EXAMINATION: CT CHEST WO CONTRAST (GENERIC) CLINICAL HISTORY: Pneumonia, unresolved pneumonia Bere, f/u scan in pt with tobacco use [...] patients who have questions please contactthe health lawn caretaker that requested your imaging first. Electronically signed by: Raheem Morin MD, [facility]([phone]), at 10/25/2022 10:54 AM Kira Thayer MD IMG CT ORDERABLES * (ABNORMAL) Blood Gas Venous ([facility]) (10/18/2022 8:56 AM EDT) pH, Venous 7.35 7.32 - 7.42 [facility] PCO2, Venous 56(H) 41 - 51 mmHg [facility] PO2, Venous 42(H) 25 - 40 mmHg [facility] Bicarbonate, Venous 30.3 mmol/L [facility] Base Excess, Venous 4.7 mmol/L [facility] Hgb Blood Gas 15.7(H) 11.7 - 15.5 g/dL [facility] Oxyhemoglobin, Venous 74.0 % [facility] Carboxyhemoglob in, Venous 5.3 % [facility] Comment: Nonsmokers: 0.5-1.5% COHB Smokers: Variable, but usually less than 10% Toxic: 20-30% COHB Lethal: Greater than 60% COHB Methemoglobin, Venous 0.3 <=1.5 % [facility] Na Whole Blood 142 135 - 145 mmol/L [facility] K Whole Blood 3.5 3.5 - 5.0 mmol/L [facility] Comment: Please note: Patients with WBC >100,000 may have falsely elevated Potassium levels. Contact the Clinical Chemistry Laboratory if there are any questions. ICa Whole Blood 1.23 1.15 - 1.33 mmol/L [facility] Comment: Note: ??Total bilirubin higher than 20 mg/dL may lead to falsely low ionized calcium. CL Whole Blood 103 98 - 107 mmol/L [facility] Gluc Whole Bld 92 65 - 199 mg/dL [facility] Comment:Diabetes: >=200 mg/d L plus symptoms Lactate WB 1.7 0.5 - 2.2 mmol/L [facility] Blood Gas Source Venous [facility] Blood Venous Draw / Unknown 10/18/2022 8:56 AM EDT 10/18/2022 9:00 AM EDT Narrative Resulting Agency Comment Spec In Lab Kira Thayer MD CHEMISTRY ORDERABLES Performing Organization Address [facility] Co de Phone Number [place] [address] * (ABNORMAL) Lower Respiratory Culture Sputum Expectorated (10/18/2022 8:38 AM EDT) Lower Respiratory Culture Few mixed bacterial morphotypes suggestive of normal upper respiratory roxanne(A) [facility] Gram Stain Many Neutrophils seen Few squamous epithelial cells seen Few Gram Positive Cocci seen (A) [facility] Organism Gram Positive Cocci(A) [facility] Sputum Expectorated 10/19/19 8:38 AM EDT 10/18/2022 9:41 AM EDT Narrative Resulting Agency Comment Spec In Lab Kira Thayer MD MICROBIOLOGY - GENER AL ORDERABLES Performing Organization Address [facility] Co de Phone Number [facility] [address] documented in this encounter Visit Diagnoses Diagnosis COPD, very severe Chronic airway obstruction, not elsewhere classified Tobacco use Tobacco use disorder Bacterial pneumonia Bacterial pneumonia, unspecified Bacterial pneumonia Bacterial pneumonia, unspecified documented in this encounter Care Teams Feed Mill Operator Relationship Specialty Start Date End Date Belkys Bundy DO [address] [place] [address] PCP - General Family Medicine 03/21/19 documented as of this encounter
--- OUTSIDE RECORDS SUMMARY | 2024-03-29 08:13 | XMS_ITS | Encounter Summary ---
[place] [address] Care Team Providers Care Public Relations Player Name Role Phone Belkys Bundy Primary Care Provider +1- [phone] Encounter Details Date Type Department Care Team (Latest Contact Info) Description 03/31/2022 8:34 AM EST - 03/31/2022 11:59 PM EST Hospital En[place] [address] COPD, very severe Discharge Disposition: Home Social [...] End Date inhalational spacing device (Ricci Aerosol [place] Enhancer) Spacer .MEDSUPPLY 02/01/2020 levothyroxine (Synthroid) 100 mcg Tablet Take 100 mcg by mouth nightly. 06/11/2020 linaCLOtide (Linzess) 72 mcg Capsule Take 72 mcg by mouth as needed. Take 30 minutes before meal 05/09/2020 albuteroL 90 mcg/actuation HFA Aerosol InhalerIndications:Chr onic obstructive pulmonary disease, unspecified COPD type Inhale [...] 11 07/16/2020 fluticasone propionate (FLONASE) 50 mcg/actuation [place], Suspension 02/01/2020 atorvastatin (Lipitor) 20 mg Tablet [...] 05/28/2013 DILTiazem (CARDIZEM) 30 mg tablet 04/12/2013 azithromycin (Zithromax Z-Adama) 250 mg TabletIndications:COPD , very severe Take 1 tablet by mouth daily for 180 days. 30 tablet 5 03/31/2022 09/27/2022 potassium chloride (KLOR-CON) 20 mEq Packet Take 20 mEq by mouth 2 times daily. 11/27/2020 02/07/2023 fluticasone-umeclidin- vilanter (Trelegy Ellipta) 200-62.5-25 mcg Disk with DeviceIndications:COPD , very severe Inhale 1 Inhalation into the [...] 4:00 PM EDT Office [place] [address] Kira Thayer MD [facility] [place] [address] documented as of this encounter Procedures Procedure Name Priority Date/Time Associated Diagnosis Comments COMMON PULMONARY FUNCTION TEST Routine 03/31/2022 8:40 AM EST COPD, very severe documented [...] / FVC LLN 69 % COMPAS PFT QPF85-36 Actual Pre-BD 0.30 L/s COMPAS PFT TXQ77-82 Pre-BD % of Predicted 11 % COMPAS PFT JFE60-21 Predicted 2.74 L/s COMPAS PFT RFP91-88 Pre-BD Z-Score -4.27 COMPAS PFT DLCO Hb [...] Predicted 4.30 mL/min/mmHg /L COMPAS PFT Narrative COMPAS PFT - 03/31/2022 8:40 AM EST FINDINGS: [...] classified documented in this encounter Care Teams Public Relations Player Relationship Specialty Start Date End Date Belkys Bundy DO [address] [place] [address] PCP - General Family Medicine 03/21/19 documented as of this encounter
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
--- OUTSIDE RECORDS SUMMARY | 2024-03-29 08:14 | XMS_ITS | Encounter Summary ---
Author Organization [facility] [address] Care Team Providers Care Client Relationship Consultant Name Role Phone Belkys Bundy Primary Care Provider +1- [phone] Encounter Details Date Type Department Care Team (Late st Contact Info) Description 08/20/2020 2:00 PM EDT TH Visit (TeleHealth) [place] [address] Juanis Osullivan, RT COPD, very severe Social [...] of this encounter Progress Notes * Juanis Osullivan, RT - 08/20/2020 2:00 PM EDT Pulmonary Rehabilitation Tele health Visit for Jessie Sanchez This visit replaces an in person visit due to the COVID-19 pandemic. Patient verbally consents to this visit and understands that this visit may be billed, similar to a pulmonary rehabilitation clinic visit. Date of Encounter: 08/20/20 Supervising Physician: Kervin Steiner MD Exercise session #: 9 Comments: Jessie noted neck pain after the arm exercises today. She needed to stop and rest secondary to the neck pain. Pulmonary Rehabilitation Exercise: please see Jethro Knapp's PT note Pulmonary Rehabilitation Education Topic: Oral Respiratory Medications and Sick Day Plan Presenter: Dr. Jatin Sanchez participated in discussion Juanis Osullivan, CIVIL PREPAREDNESS OFFICER,ED TECH documented in this encounter Miscellaneous Notes * Treatment - Therapy - Jethro Knapp PT - 08/20/2020 2:00 PM EDT Pulmonary Rehabilitation Webex Exercise Flowsheet 08/20/2020 O2 3 Resting SpO2/HR 97 SPO2 79 HR Warm up SpO2/HR 93 SPO2 103 HR U/E SpO2 black Wt/dynaband 96 SPO2 89 HR Seated Row 2x25 Triceps External Rotation 2x25 RPD/RPE 4 L/E SpO2/HR wt/dynaband 96 SPO2 72 HR Sit><stand 2x20 Heel raises 2x20 Toe raises 2x20 Hip Abduction 2x20 RPD.RPE 3 Recovery SpO2/HR - SPO2 - HR Warm up consisting of marching, side stepping, mummy kicks, and ladder climbs. Balance exercises ofankle sway, narrow stance with head turns, and limits of stability anterior with step to recover. Cool down with stretching of gastroc, chest, and hamstring. Comments: With upper extremity exercise reported neck pain which reduced slightly with stretching but still or end of session. Zoe instructed to ice her neck and stretch after session was done. Home exercise program: olyptical and walking Aerobic goals met: yes New aerobic goal for the week: olyptical 15 min or walking each day. P: Continue Pulmonary rehab Web ex with education 1x/week and strengthening, balance activity 2x/week as a group and 1-2 x independently Jethro Knapp, PT, DPT documented in this encounter Plan of Treatment Upcoming Encounters Date Type Department Care Team (Late st Contact Info) Description 08/27/2024 4:00 PM EDT Office [place] [address] Kira Thayer MD [facility] [place] [address] documented as of this encounter Visit Diagnoses Diagnosis COPD, very severe Chronic airway obstruction, not elsewhere classified documented in this encounter Care Teams Client Relationship Consultant Relationship Specialty Start Date End Date Belkys Bundy DO [address] [facility] [place] [address] PCP - General Family Medicine 03/21/19 documented as of this encounter
--- OUTSIDE RECORDS SUMMARY | 2024-03-29 08:14 | XMS_ITS | Encounter Summary ---
[facility] Organization [facility] [place] [address] Care Team Providers Care Automotive Product Engineer Name Role Phone Belkys Bundy Primary Care Provider +1- [phone] Encounter Details Date Type Department Care Team (Late st Contact Info) Description 10/24/2020 2:00 PM EDT TH Visit (TeleHealth) [place] [address] Juanis Osullivan, RT COPD, very severe Social [...] Progress Notes * Juanis Osullivan, RT - 10/24/2020 2:00 PM EDT Pulmonary Rehabilitation Tele health Visit for Jessie Sanchez This visit replaces an in person visit due to the COVID-19 pandemic. Patient verbally consents to this visit and understands that this visit may be billed, similar to a pulmonary rehabilitation clinic visit. Date of Encounter: 10/24/20 Supervising Physician: Scott Bradley MD Exercise session #: 18 Comments: Jessie noted feeling hot at the end of the exercise session. She hadn't turned on the ACprior to exercise, encouraged her to have a family member turn on the AC and this helped. She also had mowed the lawn prior to exercise session today. She will be helping her son pack this weekend for his week at [employer] [place] next week. Jessie Sanchez exercised on 4 pulse dose O2. Resting SpO2= 998 % with HR: 88 bpm Exercise SpO2= 93-97 % with HR: 88-104 bpm Dyspnea with exercise= moderate to somewhat hard ( NIK= 3.5-4) utilizing pursed lip breathing and pacing with prn cues. Upper extremity exercises done with black dynaband. Sit to stand exercises (repetitions): 13- 1st set and 25- 2nd set. 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, STONEWORKING BELT SANDER,CONCRETE LABORER documented in this encounter Miscellaneous Notes * Treatment - Therapy - Post, Jethro Khanna, PT - 10/24/2020 2:00 PM EDT Pulmonary Rehabilitation Webex Exercise Flowsheet 10/24/2020 O2 4L pulsed Resting SpO2/HR 98 SPO2 88 HR Warm up SpO2/HR 93 SPO2 104 HR U/E SpO2 black Wt/dynaband 96 SPO2 88 HR biceps 2x25 Chest press 2x25 RPD/RPE 3.5 L/E SpO2/HR wt/dynaband 97 SPO2 89 HR Sit><stand 2x20 Heel raises 2x20 Toe raises 2x20 Standing Knee Flexion 2x20 RPD.RPE 3.5-4 Recovery SpO2/HR 96 SPO2 92 HR Warm up consisting of marching, side stepping, mummy kicks, and ladder climbs. Balance exercises ofankle sway, narrow stance with head turns, and limits of stability anterior with step to recover. Cool down with stretching of gastroc, chest, and hamstring. Comments:very hot at end of session; Turned on AC which helped. Had mowed grass just before session. Packing up sons items for his first sleep away camp with [employer]. EKG date have to reschedule form 11/03 to another day. 2 Home exercise program: olypitcal and walking. Aerobic goals met: yes New aerobic goal for the week: continue to progress. P: Continue Pulmonary rehab Web ex with education 1x/week and strengthening, balance activity 2x/week as a group and 1-2 x independently Jethro Knapp PT, DPT documented in this encounter Plan of Treatment Upcoming Encounters Date Type Department Care Team (Late st Contact Info) Description 08/27/2024 4:00 PM EDT Office [place] [address] Kira Thayer MD [facility] [place] [address] documented as of this encounter Visit Diagnoses Diagnosis COPD, very severe Chronic airway obstruction, not elsewhere classified documented in this encounter Care Teams Automotive Product Engineer Relationship Specialty Start Date End Date Belkys Bundy DO [address] [place] [address] PCP - General Family Medicine 03/21/19 documented as of this encounter
--- OUTSIDE RECORDS SUMMARY | 2024-03-29 08:14 | XMS_ITS | Encounter Summary ---
Author Organization [facility] [place] [address] Care Team Providers Care Manual Arts Teacher Name Role Phone Niharika Belkys Virginie MYRICK Primary Care Provider +1- [phone] Encounter Details Date Type Department Care Team (Late st Contact Info) Description 01/30/2021 [place] [phone] Juanis Osullivan RT Social History Tobacco Use [...] Telephone Encounter - Juanis Osullivan RT - 01/30/2021 10:28 AM EDT Jessie called, she has PCP appointment for evaluation of her shoulder on 02/03/21. Hold pulmonary rehab today. Shoulder: She is taking ibuprofen 800 mg 2 times per day with food and noted that this has helped a little with the shoulder pain. -she trialed ice but noted that this just made her cold. She will trial heating pad. - she trialed small pendulum with the arm and noted increased tenderness- she will hold this. - reviewed follow up with urgent care/WIC if increased pain. She verbalized understanding. Tobacco cessation: She has been not smoking for 4 days now. She is taking it one day at a time. GI: She noted that her stomach was upset today- she noted that this happens and denies this is related to her ibuprofen. Plan: Hold pulmonary rehabilitation till Jessie has her shoulder evaluated and cleared for participation in pulmonary rehab. Jessie has follow up appointment with PCP on 02/03/21, if increased pain/symptoms before this will go to urgent care/WIC for evaluation. documented in this encounter Plan of Treatment Upcoming Encounters Date Type Department Care Team (Late st Contact Info) Description 08/27/2024 4:00 PM EDT [place] [address] Kira Thayer MD [facility] [place] [address] documented as of this encounter Visit Diagnoses Not on filedocumented in this encounter Care Teams Manual Arts Teacher Relationship Specialty Start Date End Date Belkys Bundy DO [address] [place] [address] PCP - General Family Medicine 03/21/19 documented as of this encounter
--- OUTSIDE RECORDS SUMMARY | 2024-03-29 08:14 | XMS_ITS | Encounter Summary ---
[place] [address] Care Team Providers Care Home Economics Expert Name Role Phone Belkys Bundy Primary Care Provider +1- [phone] Encounter Details Date Type Department Care Team (Latest Contact Info) Description 02/18/2021 9:22 AM EST - 02/18/2021 11:59 PM EST Hospital En[place] [address] COPD, very severe Discharge Disposition: Home Social [...] End Date inhalational spacing device (Ricci Aerosol Crowley Enhancer) Spacer .MEDSUPPLY 02/01/2020 levothyroxine (Synthroid) 100 [...] 11 07/16/2020 fluticasone propionate (FLONASE) 50 mcg/actuation [place], Suspension 02/01/2020 atorvastatin (Lipitor) 20 mg Tablet [...] by mouth 2 times daily. 11/27/2020 02/07/2023 albuteroL 90 mcg/actuation HFA Aerosol InhalerIndications:Chr onic obstructive pulmonary disease, unspecified COPD type INHALE 2 PUFFS INTO THE LUNGS EVERY 4 HOURS NEEDED FOR WHEEZING OR SHORTNESS OF BREATH 36 g 5 12/23/2020 06/03/2021 nicotine (NICODERM CQ) 21 mg/24 hr Patch 24 hr APPLY ONE PATCH TO THE SKIN EVERY DAY 05/13/2020 10/18/2022 ondansetron (Zofran) 4 mg Tablet TAKE 1 TABLET BY MOUTH EVERY 8 HOURS IF NEEDED FOR NAUSEA AND VOMITING 01/14/2020 06/03/2021 fluticasone-umeclidin- vilanter (Trelegy Ellipta) 200-62.5-25 mcg Disk with Device Inhale 1 Inhalation into the lungs daily. 28 each 04/25/2020 04/17/2021 morphine IR (MSIR) 15 mg Tablet 04/12/2019 02/07/2023 levothyroxine (SYNTHROID) 75 mcg Tablet Take 75 mcg by mouth daily. 06/24/2021 citalopram (CELEXA) 20 mg Tablet Take 20 mg by mouth nightly. 02/07/2023 traZODone (DESYREL) 100 mg Tablet Take 200 mg by mouth nightly. 06/20/2023 ERYTHROMYCIN BASE (ERYTHROMYCIN ORAL) Take by mouth. 2021 documented as of this encounter Plan of Treatment Upcoming Encounters Date Type Department Care Team (Late st Contact Info) Description 08/27/2024 4:00 PM EDT Office [place] [address] Kira Thayer MD [facility] [place] [address] Scheduled Orders Name Type Priority Associated Diagnoses Orde r Schedule Pulmonary Function Testing PFT Routine COPD, very severe 1 Occurrences starting 02/18/2021 until 02/18/2021 documented as of this encounter Procedures Procedure Name Priority Date/Time Associated Diagnosis Comments COMMON PULMONARY FUNCTION TEST Routine 02/18/2021 10:01 AM EST COPD, very severe documented in this encounter Results * Pulmonary Function Testing (02/18/2021 10:01 AM EST) FVC Actual Pre-BD 2.16 L COMPAS PFT FVC Pre-BD % of Predicted 60 % COMPAS PFT FVC Predicted 3.59 L COMPAS PFT FVC Pre-BD Z-Score -3.06 COMPAS PFT FVC Lower Limits of Normal 2.80 L COMPAS PFT FEV1 Actual Pre-BD 0.96 L COMPAS PFT FEV1 Pre-BD % of Predicted 34 % COMPAS PFT FEV1 Predicted 2.86 L COMPAS PFT FEV1 Pre-BD Z-Score -4.71 COMPAS PFT FEV1 Lower Limits of Normal 2.23 L COMPAS PFT FEV1 / FVC Actual Pre-BD 44 % COMPAS PFT FEV1/FVC Pre-BD Z-Score -4.20 COMPAS PFT FEV1 / FVC LLN 69 % COMPAS PFT [id number] Actual Pre-BD 0.30 L/s COMPAS PFT MFL73-02 Pre-BD % of Predicted 11 % COMPAS PFT [id number] Predicted 2.78 L/s COMPAS PFT KPD44-24 Pre-BD Z-Score -4.34 COMPAS PFT DLCO Hb Actual Pre-BD 11.21 mL/min/mmHg COMPAS PFT DLCO Hb Pre-BD % of Predicted 51 % COMPAS PFT DLCO Hb Pre-BD Z-Score -4.45 COMPAS PFT DLCO Hb Predicted 21.89 mL/min/mmHg COMPAS PFT DLCO UNC ACT PRE-BD 11.21 mL/min/mmHg COMPAS PFT DLCO UNC PRE-BD % of PRED 51 % COMPAS PFT DLCO UNC PRE-BD Z-SCORE -4.45 % COMPAS PFT DLCO UNC Predicted 21.89 mL/min/mmHg COMPAS PFT DLCO/VA Actual Pre-BD 2.16 mL/min/mmHg /L COMPAS PFT DLCO/VA Pre-BD % of Predicted 50 % COMPAS PFT DLCO/VA Pre-BD Z-Score -4.15 COMPAS PFT DLCO/VA Predicted 4.31 mL/min/mmHg /L COMPAS PFT Narrative COMPAS PFT - 02/18/2021 10:01 AM EST FINDINGS: FEV1 is very severely reduced, the FVC is moderately reduced and the FEV1/FVC is reduced. Diffusion capacity testing did not meet ATS criteria for acceptability due to limited ability to complete the breath hold, however as measured the DLCO not adjusted for hemoglobin is moderately reduced. IMPRESSION: Spirometry demonstrates very severe (FEV1 < 35%) obstruction. Testing shows moderate reduction in diffusing capacity (DLCO 40 to 60%) which may be an over-estimate of impairment. Compared to the last study on 05/26/20, the FEV1, FVC and DLCO are all significantly increased. Procedure Note Kira Thayer MD - 02/18/2021 FINDINGS: FEV1 is very severely reduced, the FVC is moderately reduced andthe FEV1/FVC is reduced. Diffusion capacity testing did not meet ATS criteria foracceptability due to limited ability to complete the breath hold, however as measured the DLCO notadjusted for hemoglobin is moderately reduced. IMPRESSION: Spirometry demonstrates very severe(FEV1 < 35%) obstruction. Testing shows moderate reduction in diffusing capacity (DLCO40 to 60%) which may be an over-estimate of impairment. Compared to the last study on 05/26/20,the FEV1, FVC and DLCO are all significantly increased. Kira Thayer MD PFT ORDERABLES COMPAS PFT documented in this encounter Visit Diagnoses Diagnosis COPD, very severe Chronic airway obstruction, not elsewhere classified documented in this encounter Care Teams Home Economics Expert Relationship Specialty Start Date End Date Belkys Bundy DO [address] [place] [address] PCP - General Family Medicine 03/21/19 documented as of this encounter
--- OUTSIDE RECORDS SUMMARY | 2024-03-29 08:14 | XMS_ITS | Encounter Summary ---
Author Organization [facility] [place] [address] Care Team Providers Care Referral Nurse Name Role Phone Belkys Bundy DO Primary Care Provider +1- [phone] Encounter Details Date Type Department Care Team (Late st Contact Info) Description 12/24/2020 [place] [phone] Millicent Valles Social History Tobacco Use Types [...] 4:00 PM EDT Office [place] [phone] Kira Thayer MD [facility] [place] [address] documented as of this encounter Visit Diagnoses Not on filedocumented in this encounter Care Teams Referral Nurse Relationship Specialty Start Date End Date Belkys Bundy DO [address] [place] [address] PCP - General Family Medicine 03/21/19 documented as of this encounter
--- OUTSIDE RECORDS SUMMARY | 2024-03-29 08:14 | XMS_ITS | Encounter Summary ---
Author Organization [facility] [place] [address] Care Team Providers Care Animal Technician Name Role Phone Belkys Bundy DO Primary Care Provider +1- [phone] Encounter Details Date Type Department Care Team (Late st Contact Info) Description 01/09/2021 Telephone [place] [phone] Millicent Valles Social History Tobacco Use Types [...] PM EDT Office [place] [address] Kira Thayer MD [facility] [place] [address] documented as of this encounter Visit Diagnoses Not on filedocumented in this encounter Care Teams Animal Technician Relationship Specialty Start Date End Date Belkys Bundy DO [address] [place] [address] PCP - General Family Medicine 03/21/19 documented as of this encounter
--- OUTSIDE RECORDS SUMMARY | 2024-03-29 08:14 | XMS_ITS | Encounter Summary ---
Author Organization [facility] [place] [address] Care Team Providers Care Boning Room Worker Name Role Phone Belkys Bundy Primary Care Provider +1- [phone] Encounter Details Date Type Department Care Team (Late st Contact Info) Description 09/30/2020 [place] [address] Kira Thayer MD [facility] [place] [address] COPD, very severe Social History Tobacco Use [...] 4:00 PM EDT [place] [phone] Kira Thayer MD [facility] [place] [address] documented as of this encounter Visit Diagnoses Diagnosis COPD, very severe Chronic airway obstruction, not elsewhere classified documented in this encounter Care Teams Boning Room Worker Relationship Specialty Start Date End Date Belkys Bundy DO [address] [place] [address] PCP - General Family Medicine 03/21/19 documented as of this encounter
--- OUTSIDE RECORDS SUMMARY | 2024-03-29 08:14 | XMS_ITS | Encounter Summary ---
Author Organization [facility] [place] [address] Care Team Providers Care Back Tender Name Role Phone Belkys Bundy Primary Care Provider +1- [phone] Encounter Details Date Type Department Care Team (Late st Contact Info) Description 10/16/2020 [place] [phone] Kira Thayer MD [facility] [place] [address] COPD, very severe Social History Tobacco Use [...] 4:00 PM EDT [place] [phone] Kira Thayer MD [facility] [place] [address] documented as of this encounter Visit Diagnoses Diagnosis COPD, very severe Chronic airway obstruction, not elsewhere classified documented in this encounter Care Teams Back Tender Relationship Specialty Start Date End Date Belkys Bundy DO [address] [place] [address] PCP - General Family Medicine 03/21/19 documented as of this encounter
--- OUTSIDE RECORDS SUMMARY | 2024-03-29 08:14 | XMS_ITS | Encounter Summary ---
Author Organization [facility] [place] [address] Care Team Providers Care Operations Developer Name Role Phone Belkys Bundy Primary Care Provider +1- [phone] Encounter Details Date Type Department Care Team (Late st Contact Info) Description 08/08/2020 Tele[place] [phone] Juanis Osullivan RT Social History Tobacco Use [...] Telephone Encounter - Juanis Osullivan RT - 08/08/2020 1:06 PM EDT Called Cristin at [facility] to review Jessie's current status of her Medicare O2 benefit. Cristin noted that currently no months have billed for Medicare for her oxygen. Jessie needs to be requalified for oxygen with new oxygen orders. documented in this encounter Plan of Treatment Upcoming Encounters Date Type Department Care Team (Late st Contact Info) Description 08/27/2024 4:00 PM EDT Office [place] [address] Kira Thayer MD [facility] [place] [address] documented as of this encounter Visit Diagnoses Not on filedocumented in this encounter Care Teams Operations Developer Relationship Specialty Start Date End Date Belkys Bundy DO [address] [place] [address] PCP - General Family Medicine 03/21/19 documented as of this encounter
--- OUTSIDE RECORDS SUMMARY | 2024-03-29 08:14 | XMS_ITS | Encounter Summary ---
Author Organization [facility] [place] [address] Care Team Providers Care Rn Training Name Role Phone Belkys Bundy Primary Care Provider +1- [phone] Encounter Details Date Type Department Care Team (Late st Contact Info) Description 12/08/2020 9:00 AM EDT Office [place] [address] Juanis Osullivan, RT COPD, very severe Social [...] Progress Notes * Juanis Osullivan, RT - 12/08/2020 9:00 AM EDT Pulmonary Rehabilitation Re-assessment for Jessie Sanchez Start date: 06/13/2020 Last session date:10/24/2020 Diagnosis: Severe COPD Your patient Jessie Sanchez is a participant in our monitored exercise and education program. she has attended 18 sessions of our exercise and educational program. 6 Minute Walk: Pre-Walk Vitals: BP: 102/54 HR:72 SpO2: 96% Supplemental Oxygen:2 lpm O2 NIK( dyspnea): 0 Rate of Perceived Exertion: 0 Lowest SpO2 during walk: HR:110 SpO2 :92% Supplemental Oxygen:2 lpm O2 NIK( dyspnea): 2 Rate of Perceived Exertion: 1 Post-Walk Vitals: BP:132/84 HR: 103 SpO2: 91% Supplemental Oxygen:2 lpm O2 NIK( dyspnea):3 Rate of Perceived Exertion: 2.5 Recovery: 2 minutes BP: 126/80 HR: 84 SpO2: 95% Supplemental Oxygen: 2 lpm O NIK( dyspnea): 0 Rate of Perceived Exertion: 0 Comments: Jessie Sanchez walked a distance of 289.6 meters (950 feet) in 6 minutes with no rests. Pulmonary rehabilitation staff handling the supplemental O2. Jessie noted RUQ abdominal pain 6/10 before/thru the walk. NIK/RPE Scale: 0 Nothing at all 0.5 Very, very slight (just noticeable 1 Very slight 2 Slight 3 Moderate 4 Somewhat severe 5 Severe 6 7 Very severe 8 9 Very, very severe (almost maximal) 10 Maximal Vital Signs: Average Resting: Exercise: Heart rate 73-88 bpm 72-88-104 bpm SpO2 on 4 pulse dose O2: 96-98 % 93-98 % ( 4 pulse dose) Exercise work loads: Initial Last session: 10/24/20 Upper extremity exercises: 2 sets of 10 repetitions 2 sets of 25 repetitions Resistance: Red and blue dynaband blue to Black dynaband Lower extremity exercises: 2 sets of 10 repetitions 2 sets of 20 repetitions Sit to stand repetitions: 1 set of 15 repetitions 1st set: 12-13, 2nd set: 15 Symptoms/comments: Jessie Sanchez Was currently on hold for pulmonary rehabilitation during the month of November secondary to family commitments and she also developed gastrointestinal issues. She understood that she is currently waiting for call from the surgeon regarding ? Colon surgery. Currently not taking any pain medications, she notes bloating, RUQ abdominal pain with splinting noted with deepbreathing. Respiratory symptoms: Productive cough :white with prn pale yellow - orthopnea: elevating HOB approximately 15 degrees - pedal edema: none -Lung sounds: Clear, Decreased RLL Respiratory regimen: Duoneb 1-2 times per day Trelegy 200/62.5/25 mcg once a day: in the morning Singulair 10 mg per day Ventolin HFA 90 mcg 2 puffs every 4 hours as needed Morphine IR-discontinued BREATHING EXERCISES: -Introduced concept of Incentive Spirometer to Jessie Sanchez Provided Jessie Sanchez an incentive spirometer. Initial level: 1500 ml X 4 breaths, Jessie Sanchez tolerated this well Plan to utilize Incentive spirometer 2-3 times per day for 5- 10 breaths per set. Reviewed the VPEP Inspire for Life - Positive Expiratory Pressure (PEP) Device to Jessie Sanchez VPEP Inspire for Life had arrived via the mail, but she didn't bring it to clinic today. Initial Settings: Reviewed how to adjust the setting on the VPEP and plan to start on level 3. A. Take a slow, deep breath. B. Hold your breath for 1-2 seconds. C. Breathe out through the mouth-piece with force. D. Keep taking deep breaths in -- and forceful breaths out through your vPEP -- 5-10 times E. After at least 5-10 breaths in and out, do 2 or 3 ???coughs??? to clear your lungs. Make sure your hand does not cover the end of the vPEP with exhalation port. Plan to do VPEP after Duoneb in the morning ( up to 10 repetitions), And then in the evening after Duoneb ( up to 10 repetitions). # Educational Sessions attended: 10 The goals listed below have been established from initial evaluations and interviews with the patient, to accomplish while in pulmonary rehab. Patient Goals: -To get stronger- yes, Jessie noted that overall she is feeling stronger. - To lose weight: 3-5 lbs- ( past 2-3 weeks significant diarrhea). Overall no change since May 2020 - To be able to take a walk outside- thi s has been limited the past few weeks secondary to GI issues. - Quit smoking in preparation for a lung transplant: currently at 10 cigarettes or less per day - To be able to do her self-care ADLs in less than 2 hours with < 3 stops for dyspnea: Met, she is doing her self-care with assistance from her in approximately 15 minutes with 1 break after shower before drying off/dressing. Reviewed wearing O2 in the shower or after shower. Outcomes: Pre Reassessment % Change 6 minute walk 182.9 meters 289.6 meters 58.3% improvement PHQ 9: 12 she will mail questionnaire GAD7: 12 she will mail questionnaire [facility]: 78 she will mail questionnaire [facility] Respiratory Questionnaire: Symptoms: 85.11 she will mail questionnaire Activities: 81.24 she will mail questionnaire Impact 46.25 she will mail questionnaire Total: 63 she will mail questionnaire Plan: Home exercise Program: resume sit to stands daily and walking as tolerated. If surgery is scheduled> 1 week from today, plan to resume telehealth pulmonary rehabilitation this week. -Rate of shortness of breath ( Dyspnea): slight to moderate, Rate of Perceived Exertion: slight to moderate Exercise heart rate < 110 bpm. ?? Oxygen: 2 lpm or 3- 4 pulse dose to maintain SpO2 at 90% or greater - VPEP after her Duoneb 2 times per day - Start Incentive spirometry per above. The [facility] monthly pulmonary support group meeting (Tuesday of the month from 4:30-5:30 pm) is available for ongoing free pulmonary education and support. If you have any questions or concerns, please let us know. Thank you. Juanis Osullivan, ANALYST BUSINESS ANALYSIS,CUSHION BUILDER [facility] Pulmonary Mathematical Scientist documented in this encounter Plan of Treatment Upcoming Encounters Date Type Department Care Team (Late st Contact Info) Description 08/27/2024 4:00 PM EDT Office [place] [address] Kira Thayer MD [facility] [place] [address] documented as of this encounter Visit Diagnoses Diagnosis COPD, very severe Chronic airway obstruction, not elsewhere classified documented in this encounter Care Teams Rn Training Relationship Specialty Start Date End Date Belkys Bundy DO [address] [place] [address] PCP - General Family Medicine 03/21/19 documented as of this encounter
--- OUTSIDE RECORDS SUMMARY | 2024-03-29 08:14 | XMS_ITS | Encounter Summary ---
Author Organization [facility] [place] [address] Care Team Providers Care Assistant Professor Of Spanish Name Role Phone Belkys Bundy Primary Care Provider +1- [phone] Encounter Details Date Type Department Care Team (Late st Contact Info) Description 08/29/2020 [place] [address] Sindy Brewer, RT Social History Tobacco Use Types Packs/Day [...] encounter Miscellaneous Notes * Telephone Encounter - Sindy Brewer RT - 08/29/2020 3:39 PM EDT I inquired about Zoe's well-being given her absence in Pulmonary Rehab today. Zoe reported her breathing has been rough today. Zoe report her oxygen is 91% on 2 lpm. I requested Zoe increase the liter flow. Zoe stated she willin a little bit. I encouraged Zoe to call the on-call Plater Apprentice if she continues to have difficulty over the weekend. RT Macario documented in this encounter Plan of Treatment Upcoming Encounters Date Type Department Care Team (Late st Contact Info) Description 08/27/2024 4:00 PM EDT Office [place] [address] Kira Thayer MD [facility] [address] [place] [address] documented as of this encounter Visit Diagnoses Not on filedocumented in this encounter Care Teams Assistant Professor Of Spanish Relationship Specialty Start Date End Date Belkys Bundy DO [address] [place] [id number] PCP - General Family Medicine 03/21/19 documented as of this encounter
--- OUTSIDE RECORDS SUMMARY | 2024-03-29 08:14 | XMS_ITS | Encounter Summary ---
Author Organization [facility] [place] [address] Care Team Providers Care Clinical Review Specialist Name Role Phone Belkys Bundy Primary Care Provider +1- [phone] Encounter Details Date Type Department Care Team (Late st Contact Info) Description 09/24/2020 2:00 PM EDT TH Visit (TeleHealth) [place] [address] Juanis Osullivan, RT COPD, very severe Social [...] Progress Notes * Juanis Osullivan, RT - 09/24/2020 2:00 PM EDT Pulmonary Rehabilitation Tele health Visit for Jessie Sanchez This visit replaces an in person visit due to the COVID-19 pandemic. Patient verbally consents to this visit and understands that this visit may be billed, similar to a pulmonary rehabilitation clinic visit. Date of Encounter: 09/24/20 Supervising Physician: Kervin Steiner MD No Exercise today Comments: Jessie started her Prednisone and antibiotics today. No exercise today, she joined for the education portion. Jessie noted that she only has her father's old home oxygen concentrator at this time. Reviewed per previous discussion with Basia, currently no Medicare claims processed for her oxygen. To transition to new O2 DME vendor, would require a home O2 evaluation and MD visit ( could be telehealth). Plan for home O2 evaluation on 09/30/[address] Thayer. Pulmonary Rehabilitation Education Topic: Nutrition and Lung Health Presenter: KATHERINE Westfall Soilayanni participated in discussion Juanis Osullivan RRT,ATMOSPHERIC DRIER TENDER documented in this encounter Plan of Treatment Upcoming Encounters Date Type Department Care Team (Late st Contact Info) Description 08/27/2024 4:00 PM EDT Office [place] [address] Kira Thayer MD [facility] [place] [address] documented as of this encounter Visit Diagnoses Diagnosis COPD, very severe Chronic airway obstruction, not elsewhere classified documented in this encounter Care Teams Clinical Review Specialist Relationship Specialty Start Date End Date Belkys Bundy DO [address] [facility] [place] [address] PCP - General Family Medicine 03/21/19 documented as of this encounter
--- OUTSIDE RECORDS SUMMARY | 2024-03-29 08:14 | XMS_ITS | Encounter Summary ---
Author Organization [facility] [place] [address] Care Team Providers Care Radar Technician Name Role Phone Belkys Bundy Primary Care Provider +1- [phone] Encounter Details Date Type Department Care Team (Late st Contact Info) Description 09/30/2020 9:30 AM EDT Office [place] [address] Juanis Osullivan, RT COPD, very severe Social [...] Sign Reading Time Taken Comments Blood Pressure 119/97 09/30/2020 9:02 AM EDT Pulse 75 09/30/2020 9:02 AM EDT Temperature - - Respiratory Rate - - Oxygen Saturation 88% 09/30/2020 9:02 AM EDT Inhaled Oxygen Concentration - - Weight 75.9 kg (167 lb 6.4 oz) 09/30/2020 9:02 A M EDT Height - - Body Mass Index 28.3 05/26/2020 12:52 PM EST documented in this encounter Progress Notes * Pelchat, Juanis A, RT - 09/30/2020 9:30 AM EDT Home Oxygen Evaluation for Jessie Sanchez Resting SpO2 on room air: 88 % HR: 79 bpm Placed on O2 at 2 lpm: Resting SpO2 on 2 lpm O2: 94 % HR: 80 bpm Walked 150 feet on 2 lpm O2, SpO2: 88 % HR: 93 bpm Increased to 3 lpm O2: Resting SpO2 on 3 lpm O2: 93 % HR: 85 bpm Walked 120 feet on 3 lpm O2, SpO2: 92 % HR: 106 bpm Changed to Pulse Dose O2: Pulse Dose at 3 pulse O2: Resting SpO2 on 3 pulse O2: 93 % HR: 78 bpm Walked 150 feet on 4 lpm O2, SpO2: 88 % HR: 95 bpm Increased 4 pulse dose O2: Resting SpO2 on 4 pulse dose O2: 92 % HR: 90 bpm Walked 120 feet on 4 pulse dose O2, SpO2: 89 % HR: 101 bpm Increased 5 pulse dose O2: Resting SpO2 on 5 pulse dose O2: 93 % HR: 83 bpm Jessie Sanchez Able to tolerate pulse dose oxygen. Plan to order home and portable oxygen concentrator thru [employer]. Oxygen at 2 lpm at rest, 3 lpm with activity. Pulse dose at 3 pulse at rest and 5 pulse with activity. Prior to walk: Lung sounds: Decreased with faint end expiratory wheezing bilaterally documented in this encounter Plan of Treatment Upcoming Encounters Date Type Department Care Team (Late st Contact Info) Description 08/27/2024 4:00 PM EDT [place] [address] Kira Thayer MD [facility] [place] [address] documented as of this encounter Visit Diagnoses Diagnosis COPD, very severe Chronic airway obstruction, not elsewhere classified documented in this encounter Care Teams Radar Technician Relationship Specialty Start Date End Date Belkys Bundy DO [address] [place] [address] PCP - General Family Medicine 03/21/19 documented as of this encounter
--- OUTSIDE RECORDS SUMMARY | 2024-03-29 08:14 | XMS_ITS | Encounter Summary ---
Author Organization [facility] Address [facility] [place] [address] Care Team Providers Care Wool Sacker Name Role Phone Belkys Bundy Primary Care Provider +1- [phone] Reason for Visit * Reason Comments Medication Refill Encounter Details Date Type Department Care Team (Late st Contact Info) Description 12/19/2020 [place] [address] Kervin Steiner Jr., MD [facility] [place] [address] Chronic obstructive pulmonary disease, unspecified COPD type Social History Tobacco Use Types Packs/Day Years [...] encounter Miscellaneous Notes * Telephone Encounter - Cristin Schultz RN - 12/23/2020 10:06 AM EDT Med Requested: Albuterol MOUNA: 8.23.21 MOUNA note: - continue trelegy inhaler 200 daily, albuterol MDI with spacer and duonebs PRN NOV: needs appt scheduled Last Refill: 2.15.21 documented in this encounter Plan of Treatment Upcoming Encounters Date Type Department Care Team (Late st Contact Info) Description 08/27/2024 4:00 PM EDT Office [place] [address] Kira Thayer MD [facility] [place] [address] documented as of this encounter Visit Diagnoses Diagnosis Chronic obstructive pulmonary disease, unspecified COPD type documented in this encounter Care Teams Wool Sacker Relationship Specialty Start Date End Date Belkys Bundy DO [address] [place] [address] PCP - General Family Medicine 03/21/19 documented as of this encounter
--- OUTSIDE RECORDS SUMMARY | 2024-03-29 08:14 | XMS_ITS | Encounter Summary ---
[place] [address] Care Team Providers Care Car Pilot Name Role Phone Belkys Bundy Primary Care Provider +1- [phone] Encounter Details Date Type Department Care Team (Late st Contact Info) Description 01/06/2021 1:00 PM EDT TH Visit (TeleHealth) [place] [address] Juanis Osullivan, RT COPD, very severe Social [...] Progress Notes * Juanis Osullivan, RT - 01/06/2021 1:00 PM EDT Pulmonary Rehabilitation Tele health Visit for Jessie Sanchez This visit replaces an in person visit due to the COVID-19 pandemic. Patient verbally consents to this visit and understands that this visit may be billed, similar to a pulmonary rehabilitation clinic visit. Date of Encounter: 01/06/21 Supervising Physician: Kervin Steiner MD Exercise session #: 22 Comments: Jessie missed last Tuesday's pulmonary rehabilitation session Secondary to increased coughing. Productive cough of primarily clear sputum with prn small amount of pale yellow sputum. She noted that she is feeling better today. No cough noted during exercise today. Jessie Sanchez exercised With O2 at 3 lpm Resting SpO2= 97 % with HR: 89 bpm Exercise SpO2= 92-95% with HR: 77-125 bpm Dyspnea with exercise= slight , exertion rating: moderate to somewhat hard - utilizing pursed lip breathing and pacing with prn cues. Upper extremity exercises done with blue dynaband. Sit to stand exercises (repetitions): 20 -1st set and 10- 2nd set. Juanis Osullivan, HELPDESK SPECIALIST,CONCAVER documented in this encounter Miscellaneous Notes * Treatment - Therapy - Dary Wheat, STATUARY PAINTER - 01/06/2021 1:00 PM EDT Pulmonary Rehabilitation Webex Exercise Flowsheet Tuesday01/06/2021 O2 3L Resting SpO2/HR 97 SPO2 89 HR Warm up SpO2/HR 95 SPO2 96 HR U/E SpO2 Black Wt/dynaband 95 SPO2 77 HR Seated Row 2x25 Triceps 2x25 External Rotation 2x25 RPD/RPE 3 L/E SpO2/HR wt/dynaband 95 SPO2 90 HR Sit><stand 2x20 Heel raises 2x20 Toe raises 2x20 Hip Abduction 2x20 RPD.RPE 4 Recovery SpO2/HR 96 SPO2 96 HR Warm up: Marching, side stepping, mummy kicks, and ladder climbs. Balance exercises: Tandem walk, Side step Braid, Single Leg Stance Cool down stretching: of gastroc, Rhomboid, and Triceps. x2 Comments: I feel great overall, over the weekend I showed my son how to do STS. I also did a lot of walking over the weekend. I took my inhaler before class so my breathing is better, no SOB. I've been coughing clear sputum is coming out nothing alarming. During the second LE exercises today I felt slight SOB. Home exercise program: Sit to stands and walking Aerobic goals met: yes/no New aerobic goal for the week: NO P: Continue Pulmonary rehab Web ex with education 1x/week and strengthening, balance activity 2x/week as a group and 1-2 x independently Dary Wheat PTA documented in this encounter Plan of Treatment Upcoming Encounters Date Type Department Care Team (Late st Contact Info) Description 08/27/2024 4:00 PM EDT Office [place] [address] Kira Thayer MD [facility] [place] [address] documented as of this encounter Visit Diagnoses Diagnosis COPD, very severe Chronic airway obstruction, not elsewhere classified documented in this encounter Care Teams Car Pilot Relationship Specialty Start Date End Date Belkys Bundy DO [address] [place] [address] PCP - General Family Medicine 03/21/19 documented as of this encounter
--- OUTSIDE RECORDS SUMMARY | 2024-03-29 08:14 | XMS_ITS | Encounter Summary ---
Author Organization [facility] [place] [address] Care Team Providers Care Senior Sales Manager Name Role Phone Belkys Bundy DO Primary Care Provider +1- [phone] Encounter Details Date Type Department Care Team (Late st Contact Info) Description 10/17/2020 [place] [address] Millicent Valles Social History Tobacco Use Types [...] 4:00 PM EDT Office [place] [address] Kira Thayer MD [facility] [place] [address] documented as of this encounter Visit Diagnoses Not on filedocumented in this encounter Care Teams Senior Sales Manager Relationship Specialty Start Date End Date Belkys Bundy DO [address] [place] [address] PCP - General Family Medicine 03/21/19 documented as of this encounter
--- OUTSIDE RECORDS SUMMARY | 2024-03-29 08:14 | XMS_ITS | Encounter Summary ---
Author Organization [facility] [place] [address] Care Team Providers Care Back Stayer Name Role Phone Belkys Bundy Primary Care Provider +1- [phone] Encounter Details Date Type Department Care Team (Late st Contact Info) Description 10/03/2020 2:00 PM EDT TH Visit (TeleHealth) [place] [address] Juanis Osullivan, RT COPD, very severe Social [...] Progress Notes * Juanis Osullivan, RT - 10/03/2020 2:00 PM EDT Pulmonary Rehabilitation Tele health Visit for Jessie Sanchez This visit replaces an in person visit due to the COVID-19 pandemic. Patient verbally consents to this visit and understands that this visit may be billed, similar to a pulmonary rehabilitation clinic visit. Date of Encounter: 10/03/20 Supervising Physician: Scott Bradley MD Exercise session #: 15 Comments: Zoe was able to complete housework yesterday, taking rests as needed, utilizing pacing. Jessie Sanchez exercised on 4 pulse dose Resting SpO2= 98% with HR: 80 bpm Exercise SpO2= 95-96% with HR: 93-94 bpm Dyspnea with exercise= moderate ( NIK= 3-3.5) utilizing pursed lip breathing and pacing with prn cues. Zoe noted leg fatigue after the leg exercises. Upper extremity exercises done with green dynaband. Sit to stand exercises repetitions: 7-1st set and modified- 25-2nd set. 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, PLASTERER FOREMAN,OPERATING ROOM AIDE documented in this encounter Miscellaneous Notes * Treatment - Therapy - Post, Jethro Khanna, PT - 10/03/2020 2:00 PM EDT Pulmonary Rehabilitation Webex Exercise Flowsheet 10/03/2020 O2 4 pulsed Resting SpO2/HR 98 SPO2 80 HR Warm up SpO2/HR 95 SPO2 94 HR U/E SpO2 green Wt/dynaband 99 SPO2 93 HR biceps 2x25 Chest press 2x25 RPD/RPE 3 L/E SpO2/HR wt/dynaband 95 SPO2 93 HR Sit><stand 1x7 squat, 1x25 minisquat mod Heel raises 2x20 Toe raises 2x20 Standing Knee Flexion 2x20 RPD.RPE 3.5 Recovery SpO2/HR 95 SPO2 88 HR Warm up consisting of marching, side stepping, mummy kicks, and ladder climbs. Balance exercises ofankle sway, narrow stance with head turns, and limits of stability anterior with step to recover. Cool down with stretching of gastroc, chest, and hamstring. Comments: doing well, did house cleaning on hands and knees for 2 hours. Legs getting tired. Going to on Vacation next week not sure if will make it to Pulm Rehab. Home exercise program: walked outside ~ 20 min x 1. Limited ths past week because of not feeling well Aerobic goals met: no New aerobic goal for the week: olyptical [...] 4:00 PM EDT Office Visit [place] [address] Kira Thayer MD [facility] [place] [address] documented as of this encounter Visit Diagnoses Diagnosis COPD, very severe Chronic airway obstruction, not elsewhere classified documented in this encounter Care Teams Back Stayer Relationship Specialty Start Date End Date Belkys Bundy DO [address] [place] [address] PCP - General Family Medicine 03/21/19 documented as of this encounter
--- OUTSIDE RECORDS SUMMARY | 2024-03-29 08:14 | XMS_ITS | Encounter Summary ---
[place] [address] Care Team Providers Care Manager Inspection Name Role Phone Belkys Bundy Primary Care Provider +1- [phone] Encounter Details Date Type Department Care Team (Late st Contact Info) Description 09/10/2020 2:00 PM EDT TH Visit (TeleHealth) [place] [address] Juanis Osullivan, RT COPD, very severe Social [...] Progress Notes * Juanis Osullivan RT - 09/10/2020 2:00 PM EDT Pulmonary Rehabilitation Tele health Visit for Jessie Sanchez This visit replaces an in person visit due to the COVID-19 pandemic. Patient verbally consents to this visit and understands that this visit may be billed, similar to a pulmonary rehabilitation clinic visit. Date of Encounter: 09/10/20 Supervising Physician: Kervin Steiner MD Exercise session #: 2 Comments: Exercise done utilizing the [employer] Apps on level 3 with O2 at 2 lpm. Resting SpO2= 96%, with exercise= 96% with moderate dyspnea. Prn cough noted during exercise today. Sit to stand: 28 modified repetitions Home exercise: Walked 2 days: 4 miles total and every other day utilizing her glider for 15 minutes. Pulmonary Rehabilitation Exercise: please see Jennifer Morales's PT note Pulmonary Rehabilitation Education Topic: Environmental Risk Factors Presenter: Juanis Sanchez participated in discussion Juanis Osullivan, CENTRAL OFFICE FRAME WIRER,TICK SEWER documented in this encounter Miscellaneous Notes * Treatment - Therapy - Jennifer Morales, PT - 09/10/2020 2:00 PM EDT Pulmonary Rehabilitation Webex Exercise Flowsheet 09/10/2020 O2 3 Resting SpO2/HR 98 SPO2 84 HR Warm up SpO2/HR 96 SPO2 88 HR U/E SpO2 black Wt/dynaband 96 SPO2 83 HR Seated Row 2x25 Triceps 2x25 External Rotation 2x25 RPD/RPE 3 L/E SpO2/HR wt/dynaband 96 SPO2 92 HR Sit><stand 28 Heel raises 2x20 Toe raises 2x20 Hip Abduction 2x20 RPD.RPE 3 Recovery SpO2/HR 94- SPO2 88 HR Warm up consisting of marching, side stepping, mummy kicks, and ladder climbs. Balance exercises tandem walk, side step/braid and single leg stance. Cool down with stretching of gastroc,rhomboid and triceps stretch. Comments:tolerated session well. Home exercise program: olyptical and walking- walked 2 x this past week, glider on alternate days ~15 min Aerobic goals met: yes New aerobic goal for the week: olyptical 15 min or walking each day. P: Continue Pulmonary rehab Web ex with education 1x/week and strengthening, balance activity 2x/week as a group and 1-2 x independently Jennifer Morales PT documented in this encounter Plan of Treatment Upcoming Encounters Date Type Department Care Team (Late st Contact Info) Description 08/27/2024 4:00 PM EDT Office [place] [address] Kira Thayer MD [facility] [address] [place] [address] documented as of this encounter Visit Diagnoses Diagnosis COPD, very severe Chronic airway obstruction, not elsewhere classified documented in this encounter Care Teams Manager Inspection Relationship Specialty Start Date End Date Belkys Bundy DO [address] [place] [address] PCP - General Family Medicine 03/21/19 documented as of this encounter
--- OUTSIDE RECORDS SUMMARY | 2024-03-29 08:14 | XMS_ITS | Encounter Summary ---
Author Organization [facility] Address [facility] [place] [address] Care Team Providers Care School Supervisor Name Role Phone Belkys Bundy Primary Care Provider +1- [phone] Encounter Details Date Type Department Care Team (Late st Contact Info) Description 08/22/2020 [place] [address] Kira Thayer MD [facility] [place] [address] Social History Tobacco Use Types Packs/Day Years [...] Telephone Encounter - Kira Thayer MD - 08/22/2020 5:17 PM EDT Called pt to check in after hearing of neck pain during pulmonary rehab. She notes she is feeling well. She feels pulm rehab is helping her breathing. No dizziness today. She does think she slept wrong on her neck. I recommended she contact her PCP if the pain doesn't resolve soon, since it couldbe something that needs evaluation. She was agreeable to this. She also noted she is struggling with quitting smoking. We discussed steps she could take day by day to work on this. She decided to restart the nicotine patch now to help with this. F/u is scheduled in September. She will continue with pulmonary rehab as well. Kira Thayer MD documented in this encounter Plan of Treatment Upcoming Encounters Date Type Department Care Team (Late st Contact Info) Description 08/27/2024 4:00 PM EDT [place] [address] Kira Thayer MD [facility] [place] [address] documented as of this encounter Visit Diagnoses Not on filedocumented in this encounter Care Teams School Supervisor Relationship Specialty Start Date End Date Belkys Bundy DO [address] [place] [address] PCP - General Family Medicine 03/21/19 documented as of this encounter
--- OUTSIDE RECORDS SUMMARY | 2024-03-29 08:14 | XMS_ITS | Encounter Summary ---
Author Organization [facility] [place] [address] Care Team Providers Care Probation Counselor Name Role Phone Belkys Bundy DO Primary Care Provider +1- [phone] Encounter Details Date Type Department Care Team (Late st Contact Info) Description 10/22/2020 Tele[place] [address] Millicent Valles Social History Tobacco Use Types [...] 4:00 PM EDT Office [place] [address] Kira Thayer MD [facility] [place] [address] documented as of this encounter Visit Diagnoses Not on filedocumented in this encounter Care Teams Probation Counselor Relationship Specialty Start Date End Date Belkys Bundy DO [address] [place] [address] PCP - General Family Medicine 03/21/19 documented as of this encounter
--- OUTSIDE RECORDS SUMMARY | 2024-03-29 08:14 | XMS_ITS | Encounter Summary ---
[facility] Organization [facility] [place] [address] Care Team Providers Care Loan Underwriter Name Role Phone Belkys Bundy Primary Care Provider +1- [phone] Encounter Details Date Type Department Care Team (Late st Contact Info) Description 10/15/2020 2:00 PM EDT TH Visit (TeleHealth) [place] [address] Juanis Osullivan, RT COPD, very severe Social [...] Progress Notes * Juanis Osullivan, RT - 10/15/2020 2:00 PM EDT Pulmonary Rehabilitation Tele health Visit for Jessie Sanchez This visit replaces an in person visit due to the COVID-19 pandemic. Patient verbally consents to this visit and understands that this visit may be billed, similar to a pulmonary rehabilitation clinic visit. Date of Encounter: 10/15/20 Supervising Physician: Kervin Steiner MD Exercise session #:16 Comments: Jessie noted increased coughing in the last week+ . She was recently started on Azithromycin 500 mg 3 days per week per Dr. Thayer. Noted increased coughing with prn rest stops for dyspnea during exercise today. Jessie Sanchez exercised on 4 pulse dose with her portable oxygen concentrator. Resting SpO2= 96% with HR: 88 bpm Exercise SpO2= 94-96 % with HR: 72-97 bpm Dyspnea with exercise= moderate ( NIK= 3) utilizing pursed lip breathing and pacing with cues. Upper extremity exercises done with red dynaband. Mini squat exercises: 25-1st set and 20- 2nd set. Pulmonary Rehabilitation Exercise: please see Jethro Knapp's PT note Pulmonary Rehabilitation Education Topic: Types of Lung Disorders- part 1 Presenter: Juanis Osullivan RRT,SEAFOOD AND SERVICE MEAT MANAGER Jessie Sanchez participated in discussion Regarding normal lungs and changes with asthma and COPD. Juanis Osullivan RRT,SEAFOOD AND SERVICE MEAT MANAGER documented in this encounter Miscellaneous Notes * Treatment - Therapy - Post, Jethro Khanna PT - 10/15/2020 2:00 PM EDT Pulmonary Rehabilitation Webex Exercise Flowsheet 10/15/2020 O2 4Lpulsed Resting SpO2/HR 96 SPO2 88 HR Warm up SpO2/HR 94 SPO2 72 HR U/E SpO2 Black --> red Wt/dynaband 96 SPO2 HR biceps 2x25 Chest press 2x25 RPD/RPE 3 L/E SpO2/HR wt/dynaband 96 SPO2 97 HR Sit><stand 2x20 Heel raises 2x20 Toe raises 2x20 Standing Knee Flexion 2x20 RPD.RPE 3 Recovery SpO2/HR 96 SPO2 92 HR Warm up consisting of marching, side stepping, mummy kicks, and ladder climbs. Balance exercises ofankle sway, narrow stance with head turns, and limits of stability anterior with step to recover. Cool down with stretching of gastroc, chest, and hamstring. Comments: On antibiotics Home exercise program: Legs and arm exercise and bike and olyptical. Aerobic goals met: yes New aerobic goal for the week: continue arm and leg exercises from class and aerobic exercise on bike and olyptical. P: Continue Pulmonary rehab Web ex with education 1x/week and strengthening, balance activity 2x/week as a group and 1-2 x independently Jethro Knapp PT, DPT documented in this encounter Plan of Treatment Upcoming Encounters Date Type Department Care Team (Late st Contact Info) Description 08/27/2024 4:00 PM EDT Office [place] [address] Kira Thayer MD [facility] [place] [address] documented as of this encounter Visit Diagnoses Diagnosis COPD, very severe Chronic airway obstruction, not elsewhere classified documented in this encounter Care Teams Loan Underwriter Relationship Specialty Start Date End Date Belkys Bundy DO [address] [place] [address] PCP - General Family Medicine 03/21/19 documented as of this encounter
--- OUTSIDE RECORDS SUMMARY | 2024-03-29 08:14 | XMS_ITS | Encounter Summary ---
[place] [address] Care Team Providers Care Negative Restorer Name Role Phone Belkys Bundy Primary Care Provider +1- [phone] Reason for Visit * Reason Onset Date Comments Medication Refill 10/10/2020 Encounter Details Date Type Department Care Team (Late st Contact Info) Description 10/10/2020 [place] [phone] Emily Starr RN COPD, very severe Social [...] 4:00 PM EDT Office [place] [phone] Kira Thayer MD [facility] [address] [place] [address] documented as of this encounter Visit Diagnoses Diagnosis COPD, very severe Chronic airway obstruction, not elsewhere classified documented in this encounter Care Teams Negative Restorer Relationship Specialty Start Date End Date Belkys Bundy DO [address] [place] [address] PCP - General Family Medicine 03/21/19 documented as of this encounter
--- OUTSIDE RECORDS SUMMARY | 2024-03-29 08:14 | XMS_ITS | Encounter Summary ---
[place] [address] Care Team Providers Care Disease Case Manager Rn Name Role Phone Belkys Bundy DO Primary Care Provider +1- [phone] Reason for Visit * Reason Onset Date Comments Ekg 11/03/2020 Availability/Kelli eduling Encounter Details Date Type Department Care Team (Late st Contact Info) Description 11/03/2020 Telephone [place] [phone] Emily Starr RN Ekg (Availability/Schedulin g) Social History Tobacco Use Types Packs/Day Years [...] Telephone Encounter - Emily Starr RN - 11/03/2020 9:[address] Thayer's request, RN called [facility] Internal Medicine, office of Dr. Belkys Bundy DO (PCP), to see if patient could be scheduled for EKG. Call directed to voicemail, and RN LMOM requestingconfirmation of if this was possible. Requested call back. documented in this encounter Plan of Treatment Upcoming Encounters Date Type Department Care Team (Late st Contact Info) Description 08/27/2024 4:00 PM EDT Office [place] [address] Kira Thayer MD [facility] [place] [address] documented as of this encounter Visit Diagnoses Not on filedocumented in this encounter Care Teams Disease Case Manager Rn Relationship Specialty Start Date End Date Belkys Bundy DO [address] [place] [address] PCP - General Family Medicine 03/21/19 documented as of this encounter
--- OUTSIDE RECORDS SUMMARY | 2024-03-29 08:14 | XMS_ITS | Encounter Summary ---
[place] [address] Care Team Providers Care Workers Compensation Consultant Name Role Phone Belkys Bundy Primary Care Provider +1- [phone] Encounter Details Date Type Department Care Team (Late st Contact Info) Description 08/13/2020 2:00 PM EDT TH Visit (TeleHealth) [place] [address] Juanis Osullivan, RT COPD, very severe Social [...] Progress Notes * Juanis Osullivan, RT - 08/13/2020 2:00 PM EDT Pulmonary Rehabilitation Tele health Visit for Jessie Sanchez This visit replaces an in person visit due to the COVID-19 pandemic. Patient verbally consents to this visit and understands that this visit may be billed, similar to a pulmonary rehabilitation clinic visit. Date of Encounter: 08/13/20 Supervising Physician: Kervin Steiner MD Exercise session #:8 Comments: Jessie participated in the exercise session utilizing O2 at 3 lpm. SpO2 maintained between 96-98%. Recovery SpO2= 97% HR= 93 Jessie noted prn right hip pain during lower extremity exercises and exercises were modified. During the beginning of the education session, Jessie noted not feeling well- nausea and left the session. 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 documented in this encounter Miscellaneous Notes * Treatment - Therapy - Jethro Knapp PT - 08/13/2020 2:00 PM EDT Pulmonary Rehabilitation Webex Exercise Flowsheet 08/13/2020 O2 3 L continous Resting SpO2/HR 97 SPO2 88 HR Warm up SpO2/HR 95 SPO2 100 HR U/E SpO2 black Wt/dynaband 98 SPO2 88 HR Seated Row yes Triceps yes External Rotation yes RPD/RPE 3 L/E SpO2/HR wt/dynaband 96 SPO2 93 HR Sit><stand yes Heel raises yes Toe raises yes Hip Abduction 1x20, 7R, 10 L due to pain in R hip RPD.RPE 4 Recovery SpO2/HR See Garth Osullivan's Note Warm up consisting of marching, side stepping, mummy kicks, and ladder climbs. Balance exercises ofankle sway, narrow stance with head turns, and limits of stability anterior with step to recover. Cool down with stretching of gastroc, chest, and hamstring. Comments: Cleaned house one room at a time using energy conservation techniques. Walked each day. Had 3-4/10 pain in right hip pain with the side kick. Pain reduced with rest. Home exercise program: olyptical and walking Aerobic [...] 4:00 PM EDT Office Visit [place] [address] Kira Thayer MD [facility] [place] [address] documented as of this encounter Visit Diagnoses Diagnosis COPD, very severe Chronic airway obstruction, not elsewhere classified documented in this encounter Care Teams Workers Compensation Consultant Relationship Specialty Start Date End Date Belkys Bundy DO [address] [place] [address] PCP - General Family Medicine 03/21/19 documented as of this encounter
--- OUTSIDE RECORDS SUMMARY | 2024-03-29 08:14 | XMS_ITS | Encounter Summary ---
[place] [address] Care Team Providers Care Police Surgeon Name Role Phone Belkys Bundy Primary Care Provider +1- [phone] Encounter Details Date Type Department Care Team (Late st Contact Info) Description 10/17/2020 2:00 PM EDT TH Visit (TeleHealth) [place] [address] Juanis Osullivan, RT COPD, very severe Social [...] Progress Notes * Juanis Osullivan, RT - 10/17/2020 2:00 PM EDT Pulmonary Rehabilitation Tele health Visit for Jessie Sanchez This visit replaces an in person visit due to the COVID-19 pandemic. Patient verbally consents to this visit and understands that this visit may be billed, similar to a pulmonary rehabilitation clinic visit. Date of Encounter: 10/17/20 Supervising Physician: Kervin Steiner MD Exercise session #: 17 Comments: Jessie continues to note increased coughing at home. Overall decrease dyspnea and cough noted today during exercise. Jessie Sanchez exercised on her portable oxygen concentrator at 4 pulse dose Resting SpO2= 98 % with HR: 73 bpm Exercise SpO2= 96-98 % with HR: 77-86 bpm Dyspnea with exercise= moderate ( NIK= 3) utilizing pursed lip breathing and pacing with prn cues. Upper extremity exercises done with green dynaband. Sit to stand exercises (repetitions) : 12- 1st set and 15- 2nd set. 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 Balance exercises ofankle sway, narrow stance with head turns, and limits of stability anterior with step to recover. Cool down with stretching of gastroc, chest, and hamstring. Comments: doing well. Tolerated session well decreased coughing and dyspnea. Home exercise program: Legs and arm exercise [...] 4:00 PM EDT Office Visit [place] [address] Kira Thayer MD [facility] [address] documented as of this encounter Visit Diagnoses Diagnosis COPD, very severe Chronic airway obstruction, not elsewhere classified documented in this encounter Care Teams Police Surgeon Relationship Specialty Start Date End Date Belkys Bundy DO [address] [place] [address] PCP - General Family Medicine 03/21/19 documented as of this encounter
--- OUTSIDE RECORDS SUMMARY | 2024-03-29 08:14 | XMS_ITS | Encounter Summary ---
Author Organization [facility] [place] [address] Care Team Providers Care Transmitter Tester Name Role Phone Belkys Bundy Primary Care Provider +1- [phone] Encounter Details Date Type Department Care Team (Latest Contact Info) Description 12/01/2020 1:00 PM EDT TH Visit (TeleHealth) [place] [address] Kira Thayer MD [facility] [place] [address] COPD, very severe; Supplemental oxygen dependent; Tobacco [...] Progress Notes * Kira Thayer MD - 12/01/2020 1:00 PM EDT Images from the original note were not included. [facility] Section of Pulmonary and Critical Care Medicine Outpatient Consultation Date of Encounter: 12/01/2020 TELEHEALTH VISIT Patient identity was confirmed at beginning of this telehealth visit. Patient is aware that this telehealth visit replaces an in-office clinical evaluation, is a billable encounter and agrees to continue. The patient is in [place]. Reason for Evaluation: Ms. Jessie Sanchez returns to the pulmonary clinic for follow-up of COPD and chronic oxygen dependence. I independently interviewed the patient, have examined the patient if this visit was conducted in the office and have reviewed available records. Dear Belkys Bundy, DO, As you know, Jessie Sanchez is a 50 y.o. female with emphysema and severe COPD with oxygen-dependence,allergies, and obesity, who was previously evaluated in pulmonary clinic in September 2020. Ms. Sanchez reports she is feeling okay, but having some right side/flank discomfort, accompanied by abdominal bloating. She has been evaluated by PCP, awaiting CT imaging by her reports and possible surgical evaluation as PCP thought it could be gallbladder. Pain was exacerbated by bending forward last week, though this is a bit better. Pain is mildly exacerbated by deep breathing, but is much more bothered by palpation from the outside. No fevers. Breathing feels okay. Still has a chronic cough, chronic sputum production, color not bad recently but did have a small amount of red blood in sputum recently (only a small amount by her report, onlyonce.) Only a little wheezing. Coughing a lot at night recently, disrupting her sleep. Still has some nasal drip. She has not been able to be very active recently because of abdominal pain. This has been limiting participation in pulmonary rehab. This program has been very helpful. Participating by zoom. She does use her oxygen concentrator at 3 pulse with exertion. Also on oxygen at night 2 LPM. She was feeling tired and not like herself when taking morphine, so stopped this. Does feel like her dyspnea is more of an issue without the morphine. She feels nausea has helped her cut back on smoking, now down to a couple cigarettes per day. She uses the patches PRN. She tried azithromycin, took for about a month, but felt it was causing diarrhea (or something elsewas at the same time.) She mora snot want to keep taking this for now. Did help her cough/breathing some. Last prednisone was in September. She is taking trelegy daily, feels that she is getting more of this into her lungs these days than before. She is also using albuterol MDI/duonebs occasionally. She has had a covid19 vaccine. Current Medications at Start of Encounter: Outpatient Medications Prior to Visit Medication Sig Dispense Refill ??? montelukast (Singulair) 10 mg Tablet Take 1 tablet by mouth nightly. 30 tablet 11 ??? fluticasone propionate (FLONASE) 50 mcg/actuation [place], Suspension ??? nicotine (NICODERM CQ) 21 mg/24 hr Patch 24 hr APPLY ONE PATCH TO THE SKIN EVERY DAY ??? ondansetron (Zofran) 4 mg Tablet TAKE 1 TABLET BY MOUTH EVERY 8 HOURS IF NEEDED FOR NAUSEA AND VOMITING ??? atorvastatin (Lipitor) 20 mg Tablet ??? cyclobenzaprine (Flexeril) 10 mg Tablet Take by mouth. ??? dicyclomine (BENTYL) 20 mg Tablet TAKE 1 TABLET BY MOUTH TWICE A DAY IF NEEDED FOR STOMACH UPPSET ??? albuteroL 90 mcg/actuation HFA Aerosol Inhaler Inhale 2 puffs into the lungs every 4 hours as needed for Wheezing or Shortness of Breath. Use with spacer 2 Inhaler 5 ??? trhwdwhahpu-aplmjeyex-kvdcajph (Trelegy Ellipta) 200-62.5-25 mcg Disk with Device Inhale 1 Inhalation into the lungs daily. 28 each 11 ??? cetirizine (ZyrTEC) 10 mg Tablet Take [...] (CARDIZEM) 30 mg tablet ??? azithromycin (Zithromax) 500 mg Tablet Take 1 tablet by mouth three times a week. (Patient not taking: Reported on 12/01/2020) 13 tablet 0 ??? predniSONE (Deltasone) 10 mg Tablet Take 4 tabs daily for 3 days, then 3 tabs for 3 days, then 2 tabs for 3 days then 1 tab for 3 days then stop. 30 tablet 0 ??? morphine IR (MSIR) 15 mg Tablet ??? citalopram (CELEXA) 20 mg Tablet Take 20 mg by mouth nightly. ??? ERYTHROMYCIN BASE (ERYTHROMYCIN ORAL) Take by mouth. No facility-administered medications prior to visit. Review of Systems: A focused ROS was completed and was positive as noted in HPI, and otherwise negative. Physical Examination: Telehealth visit; exam limited. Well appearing, in no distress. Pulmonary Function Test Results: Spirometry not repeated with this visit. Prior testing 05/2020 notable for very severe airflow obstruction and air trapping with increased total lung volumes, impaired diffusing capacity but test difficult to interpret due to difficulty withtesting Labs, Microbiology and Imaging: I personally reviewed relevant laboratory, microbiologic and radiology results which were significant for: EKG reviewed from PCP office, NSR; QTc 450 while on azithromycin No new chest imaging Chest CT 03/2018: severe emphysema, multiple chronic stable nodules, one reported small apical nodule not previously seen, size unclear A1AT level in 2012 was 146 (genotype results NEGATIVE for S or Z allele) Immunization History: Flu vaccine: COVID-19 vaccine: has had covid19 vaccine spring 2020 Pneumovax: Prevnar-13: Impression and Recommendations: Jessie Sanchez is a 50 y/o woman with emphysema and severe COPD with oxygen- dependence and very severeairflow obstruction with evidence of a significant amount of air trapping on PFTs, allergies, GERD and obesity, ongoing tobacco use, who has persistent exertional dyspnea and now new abdominal symptoms under investigation by PCP. Respiratory symptoms are limiting but not described as above her baseline. She remains on triple inhaled therapy with trelegy and is appropriately using albuterol and duonebs PRN. She had a course of prednisone with benefit 2 months ago; she did not have acute symptomsto retreat with prednisone currently. She is enrolled in pulmonary rehab, and was encouraged to continue once she feels her abdominal symptoms will allow for this (though she is nearing completion ofthe typical rehab course.) She is using supplemental oxygen, slightly below the previous titrated amount but with saturations at home that are adequate. She felt that azithromycin improved her chest congestion slightly but worsened her abdominal symptoms, so we will stop this for now. She is agreeable to retrying azithromycin in the future if her abdominal symptoms improve. She has a very wet cough, and I suggested we try airway clearance with a flutter valve now; we will mail this to her. She should use it twice a day following nebulized medications. She was counseled on the importance of weight loss for pulmonary health as well. Very importantly she is working on quitting smoking, now down to a couple cigarettes per day. I applauded her progress, and encouraged her to continue use of nicotine patches to assist with this. Sheis on welbutrin primarily for mood but this may also be helpful with tobacco cessation. We have discussed the concept of lung transplantation and value of outpatient lung transplant evaluation at a transplant center in [place]. She feels she would be interested in pursuing lung transplantation if her lung disease worsens. We will move forward with a transplant referral now. She is aware that quitting smoking is a requirement before becoming a candidate for transplantation and as noted above is making progress toward this. Summary Recommendations: - start flutter valve for airway clearance, use twice a day, we will send to her - continue trelegy inhaler 200 daily, albuterol MDI with spacer and duonebs PRN - continue singulair/zyrtec/flonase daily - STOP azithromycin for now (in setting of upset stomach/abd pain); we can retry in the future after abdominal process resolves - Continue tobacco cessation efforts, with nicotine patch use - weight loss advised - continue pulm rehab program - continue supplemental NC O2: 2LPM at rest/3 LPM continuous with activity/3 pulse at rest/5 pulse with activity on POC - we have not yet assessed for hypercarbia; I would like to obtain a blood gas with her next visit - referral to lung transplant center ([facility]) in process - repeat yanet/DLCO with next visit Follow-up [...] on day of visit. Kira Thayer MD [facility] [address] Dept: [phone] Loc: [phone] documented in this encounter Plan of Treatment Upcoming Encounters Date Type Department Care Team (Late st Contact Info) Description 08/27/2024 4:00 PM EDT Office [place] [address] Kira Thayer MD [facility] [place] [address] Scheduled Orders Name Type Priority Associated Diagnoses Orde r Schedule Pulmonary Function Testing PFT Routine COPD, very severe Expected: 03/03/2021, Expires: 09/02/2021 documented as of this encounter Visit Diagnoses Diagnosis COPD, very severe Chronic airway obstruction, not elsewhere classified Supplemental oxygen dependent Dependence on supplemental oxygen Tobacco use Tobacco use disorder Environmental allergies Allergic rhinitis, cause unspecified documented in this encounter Care Teams Transmitter Tester Relationship Specialty Start Date End Date Belkys Bundy DO [address] [place] [address] PCP - General Family Medicine 03/21/19 documented as of this encounter
--- OUTSIDE RECORDS SUMMARY | 2024-03-29 08:14 | XMS_ITS | Encounter Summary ---
[place] [address] Care Team Providers Care Film Rental Clerk Name Role Phone Belkys Bundy Primary Care Provider +1- [phone] Reason for Referral * Diagnostic Test (Routine) - Closed Specialty Diagnoses / Procedures Referred By Rossy levine Referred To Contact Radiology Diagnoses Pulmonary nodule Procedures CT Chest wo Contrast (Generic) Kira Thayer MD [facility] [place] [address] [facility] [place] [address] Referral ID Status Reason Start Date Expiration Date V isits Requested Visits Authorized [id number] Closed Specialty Service Requested 03/02/2021 08/30/2022 1 1 Encounter Details Date Type Department Care Team (Late st Contact Info) Description 02/18/2021 10:30 AM EST [place] [address] Kira Thayer MD [facility] [place] [address] COPD, very severe; Supplemental oxygen dependent; Environmental allergies; Pulmonary nodule Social History Tobacco Use Types Packs/Day Years [...] Sign Reading Time Taken Comments Blood Pressure 91/75 02/18/2021 10:19 AM EST Pulse 77 02/18/2021 10:19 AM EST Temperature 35.9 ??C (96.7 ??F) 02/18/2021 1 0:19 AM EST Respiratory Rate 18 02/18/2021 10:1 9 AM EST Oxygen Saturation 96% 02/18/2021 10: 19 AM EST Inhaled Oxygen Concentration - - Weight 75.6 kg (166 lb 10.7 oz) 021 10:19 AM EST Height 165.6 cm (5' 5.2) 02/18/2021 10 :19 AM EST Body Mass Index 27.57 02/18/2021 10:19 AM EST documented in this encounter Progress Notes * Kira Thayer MD - 02/18/2021 10:30 AM EST Images from the original note were not included. [facility] Section of Pulmonary and Critical Care Medicine Outpatient Consultation Date of Encounter: 02/18/2021 Reason for Evaluation: Ms. Jessie Sanchez returns [...] last seen in pulmonary clinic in November 2020. Jessie reports that she is feeling great. Much less dyspnea, and less coughing and wheezing. Less sputum production. No fevers or chills recently. No recent hemoptysis. Still gets a bit short of breath with moderate activity, but has found that she is able to do more and more with participation in pulm rehab. She quit smoking 3 weeks ago. Entirely off of cigarettes and nicotine. She thinks that has significantly improved her respiratory symptoms. She has not had any further flank pain; no specific diagnosis made related to this. Sinuses are feeling better, less congestion, not much drip; not taking flonase b/c doesn't like thespray. Is doing singulair and zyrtec. She does use her oxygen concentrator at 3 pulse with exertion. Also on oxygen at night 2 LPM. As you will recall, did not feel morphine PRN for dyspnea was helpful (made her feel out of it.) She is taking trelegy daily, with good benefit. She is also using albuterol MDI/duonebs occasionally. She has had a covid19 vaccine. Current Medications at Start of Encounter: Outpatient Medications Prior to Visit Medication Sig Dispense Refill ??? benzonatate (TESSALON) 200 mg Capsule Take [...] 11 ??? fluticasone propionate (FLONASE) 50 mcg/actuation Grady, Suspension ??? ondansetron (Zofran) 4 mg Tablet TAKE 1 TABLET BY MOUTH EVERY 8 HOURS IF NEEDED FOR NAUSEA AND VOMITING ??? atorvastatin (Lipitor) 20 mg Tablet ??? cyclobenzaprine (Flexeril) 10 mg Tablet Take 10 mg by mouth as needed. ??? dicyclomine (BENTYL) 20 mg Tablet TAKE 1 TABLET BY MOUTH TWICE A DAY IF NEEDED FOR STOMACH UPPSET ??? rbbqecbkibv-aynbwztjy-jrhjlckl (Trelegy Ellipta) 200-62.5-25 mcg Disk with Device [...] mcg by mouth daily. ??? citalopram (CELEXA) 20 mg Tablet Take [...] a week. (Patient not taking: Reported on 02/18/2021) 13 tablet 3 ??? nicotine (NICODERM CQ) 21 mg/24 hr Patch 24 hr APPLY ONE PATCH TO THE SKIN EVERY DAY ??? morphine IR (MSIR) 15 mg Tablet ??? citalopram (CELEXA) 40 mg Tablet Take 40 mg by mouth every morning. ??? ERYTHROMYCIN BASE (ERYTHROMYCIN ORAL) Take by mouth. No facility-administered medications prior to visit. Review of Systems: A focused ROS was completed and was positive as noted in HPI, and otherwise negative. Physical Examination: BP 91/75 Pulse 77 Temp 35.9 ??C (96.7 ??F) (Temporal) Resp 18 Ht 165.6 cm (5' 5.2) Wt 75.6 kg (166 lb 10.7 oz) SpO2 96% BMI 27.57 kg/m?? Generally well appearing, in no distress, conversational and comfortabe RRR, quiet heart sounds, no murmur WOB notably improved compared with prior, with comfortable WOB at rest; she has diminished breath sounds throughout, but no crackles or wheezing, no cyanosis or clubbing Abd soft, NT/ND No joint swelling. She is easily ambulatory No LE edema. Pulmonary Function Test Results: 02/18/2021: The FEV1 is 34% predicted (0.96 L), the FVC is 60% predicted (2.16 L), and the FEV1/FVCis reduced. The DLCO as measured is 51% predicted, though DLCO testing did not meet ATS criteria for acceptability. IMPRESSION: Severe airflow obstruction, with possible moderately impaired diffusing capacity. Compared with prior testing in May 2020 the FEV1 and FVC are significantly improved. Labs, Microbiology and Imaging: I personally reviewed relevant laboratory, microbiologic and radiology results which were significant for: EKG reviewed from November PCP office, NSR; QTc 450 while on azithromycin No new chest imaging Last Chest CT 03/2018: severe emphysema, multiple chronic stable nodules, one reported small apicalnodule not previously seen, size unclear A1AT level in 2012 was 146 (genotype results NEGATIVE for S or Z allele) Immunization History: Flu vaccine: COVID-19 vaccine: has had covid19 vaccine spring 2020 Pneumovax: Prevnar-13: Impression and Recommendations: Jessie Sanchez is a 50 y/o woman with emphysema and severe COPD with oxygen- dependence, very severe airflow obstruction and evidence of a significant amount of air trapping on PFTs, allergies, GERD and obesity, with history of heavy tobacco use, who reports significant improvement in dyspnea and functional capacity following recent cessation of tobacco use. She now has a significant improvement in FEV1 and increase in FVC after quitting smoking, though airflow obstruction remains very severe. She has concurrently benefited a lot from participation in pulmonary rehab this year. For her COPD she remains on triple inhaled therapy with trelegy and is appropriately using albuterol and duonebs PRN. She has not needed frequent prednisone this fall. She is using supplemental oxygen with good effect. She will continue with pulmonary rehab as well. She felt that azithromycin improved her chest congestion slightly but worsened her abdominal symptoms at that time; she is comfortable retrying azithromycin if symptoms worsen again in the future. She should continue with flutter valve therapy twice a day following nebulized medications for airway clearance. We again reviewed the importance of weight management for respiratory health and dyspnea. I applauded her tobacco cessation. She is committed to staying abstinent from cigarettes. There was an approximately 3-4 mm left apical lung nodule seen on chest CT in 2018. I have been unable to find any additional records of repeat chest imaging following that test. With smoking historyshe is high risk, and repeat imaging is indicated. She is agreeable to repeating imaging. We have discussed the concept of lung transplantation and value of early lung transplant evaluationat a transplant center in [place]. She feels she would be interested in pursuing lung transplantation if her lung disease worsens. Given her young age I think an early evaluation may be helpful and provide her with useful guidance on future options. At the moment with improving respiratory function after tobacco cessation and pulmonary rehab this is not urgent. Summary Recommendations: - continue flutter valve for airway clearance, use twice a day - continue trelegy inhaler 200 daily, albuterol MDI with spacer and duonebs PRN - continue singulair/zyrtec/flonase daily - acute respiratory exacerbation plan: prednisone 40 mg daily x 5 days, possibly longer and azithromycin course x 5 days -increased exercise and weight loss encouraged - continues in pulm rehab program - continue supplemental NC O2: 2LPM at rest/3 LPM continuous with activity/3 pulse at rest/5 pulse with activity on POC - ABG to assess for hypercarbia completed with this visit; pCO2 is normal - repeat chest CT now to follow up on small lung nodule from 2018, ordered - referring to lung transplant center ([facility]) - repeat yanet/DLCO with next visit Follow-up with in-office visit in 3 months. Thank you for involving me in Ms. Sanchez's care. Please feel free to contact me with any further questions or concerns. MD Omari Hogue [facility] PULMONOLOGY AT [facility] [address] Dept: [phone] Loc: [phone] documented in this encounter Plan of Treatment Upcoming Encounters Date Type Department Care Team (Late st Contact Info) Description 08/27/2024 4:00 PM EDT Office [place] [address] Kira Thayer MD [facility] [place] [address] documented as of this encounter Procedures Procedure Name Priority Date/Time Associated Diagnosis Comments BLOOD GAS ARTERIAL (NL) Routine 02/18/2021 11:45 AM EST documented in this encounter Results * Pulmonary [...] / FVC LLN 69 % COMPAS PFT [id number] Actual Pre-BD 0.15 L/s COMPAS PFT [id number] Pre-BD % of Predicted 5 % COMPAS PFT [id number] Predicted 2.75 L/s COMPAS PFT [id number] Pre-BD Z-Score -4.92 COMPAS PFT DLCO Hb [...] Kira Thayer MD PFT ORDERABLES COMPAS PFT * CT Chest wo Contrast (Generic) (06/03/2021 [...] who have questions please contact the health healthcare consulting manager that requested your imaging first. ? Electronically signed by: Cori Schmidt MD, [facility] ([phone]), at 06/03/2021 9:35 AM Narrative 06/03/2021 9:35 [...] thoracic aorta stable at 3 cm. No [place] coronary artery calcification. Other mediastinal structures: No [...] ascendingthoracic aorta stable at 3 cm. No [place] coronary artery calcification. Other mediastinal structures: No [...] patients who have questions please contactthe health healthcare consulting manager that requested your imaging first. Kira Thayer MD IMG CT ORDERABLES * (ABNORMAL) Blood Gas Arterial (02/18/2021 11:45 AM EST) pH, Arterial 7.42 7.35 - 7.45 [facility] PCO2, Arterial 42 35 - 45 mmHg [facility] PO2, Arterial 75(L) 85 - 104 mmHg [facility] Bicarbonate, Arterial 26.6(H) 20.0 - 26.0 mmol/L [facility] Base Excess, Arterial 2.1 -3.0 - 3.0 mmol/L [facility] Hgb Blood Gas 14.6 11.7 - 15.5 g/dL [facility] Comment: Interpret with caution, 1 ml syringe may give rise to occasional discrepant Hgb results. Oxyhemoglobin, Arterial 94.1 94.0 - 97.0 % [facility] Carboxyhemoglob in, Arterial 1.4 % [facility] Comment: Nonsmokers: ??0.5-1.5% COHB Smokers: ??Variable, but usually less than 10% Toxic: 20 - 30% COHB Lethal: ??Greater than 60% COHB Methemoglobin, Arterial 0.3 <=1.5 % [facility] Na Whole Blood 140 135 - 145 mmol/L [facility] K Whole Blood 4.0 3.5 - 5.0 mmol/L [facility] Comment: Please note: ??Patients with WBC >100,000 may have falsely elevated Potassium levels. ??Contact the Clinical Chemistry Laboratory if there are any questions. ICa Whole Blood 1.20 1.15 - 1.33 mmol/L [facility] Comment: Note: ??Total bilirubin higher than 20 mg/dL may lead to falsely low ionized calcium. CL Whole Blood 105 98 - 107 mmol/L [facility] Gluc Whole Bld 76 65 - 199 mg/dL [facility] Comment:Diabetes: >=200 mg/d L plus symptoms. Lactate WB 0.9 0.5 - 2.2 mmol/L [facility] FIO2 Art 21 % [facility] PF Ratio Art 357 [facility] Blood Arterial Draw / Unknown 02/18/2021 11:45 AM EST 02/18/2021 11:52 AM EST Narrative Resulting Agency Comment Spec In Lab Kira Thayer MD CHEMISTRY ORDERABLES [facility] [place] [address] documented in this encounter Visit Diagnoses Diagnosis COPD, very severe Chronic airway obstruction, not elsewhere classified Supplemental oxygen dependent Dependence on supplemental oxygen Environmental allergies Allergic rhinitis, cause unspecified Pulmonary nodule Solitary pulmonary nodule COPD, very severe Chronic airway obstruction, not elsewhere classified Pulmonary nodule Solitary pulmonary nodule documented in this encounter Care Teams Film Rental Clerk Relationship Specialty Start Date End Date Belkys Bundy DO [address] [place] [address] PCP - General Family Medicine 03/21/19 documented as of this encounter
--- OUTSIDE RECORDS SUMMARY | 2024-03-29 08:14 | XMS_ITS | Encounter Summary ---
Author Organization [facility] [place] [address] Care Team Providers Care Liner Man Name Role Phone Belkys Bundy Primary Care Provider +1- [phone] Encounter Details Date Type Department Care Team (Late st Contact Info) Description 01/20/2021 1:00 PM EDT TH Visit (TeleHealth) [place] [address] Juanis Osullivan, RT COPD, very severe Social [...] Progress Notes * Juanis Osullivan, RT - 01/20/2021 1:00 PM EDT Pulmonary Rehabilitation Tele health Visit for Jessie Sanchez This visit replaces an in person visit due to the COVID-19 pandemic. Patient verbally consents to this visit and understands that this visit may be billed, similar to a pulmonary rehabilitation clinic visit. Date of Encounter: 01/20/21 Supervising Physician: Scott Bradley MD Exercise session #: 24 Comments: Jessie noted that her son is currently recovering from pneumonia. She denies increased respiratory symptoms. Noted cough but feels the Azithromycin 500 mg 3 times per week is helping to manage her cough. Jessie Sanchez exercised With O2 at 3 lpm Resting SpO2= 97 % with HR: 95 bpm Exercise SpO2= 95-97 % with HR: 104-118 bpm Dyspnea with exercise= slight, exertion rating at moderate utilizing pursed lip breathing and pacing with prn cues. Upper extremity exercises done with black dynaband. Sit to stand exercises (repetitions): 15 -1st set and 15- 2nd set. Pulmonary Rehabilitation Exercise: please see Dary Wheat's PT note No home exercise this past weekend. Juanis Osullivan, BRASSWIND INSTRUMENT REPAIRER,COUNTY ATTORNEY documented in this encounter Miscellaneous Notes * Treatment - Therapy - Dary Wheat, TYPING SECRETARY - 01/20/2021 1:00 PM EDT Pulmonary Rehabilitation Webex Exercise Flowsheet Tuesday01/20/21 O2 3L Resting SpO2/HR 97 SPO2 95 HR Warm up SpO2/HR 95 SPO2 116 HR U/E SpO2 black Wt/dynaband 97 SPO2 104 HR Seated Row 2x20 Triceps 2x20 External Rotation 2x20 RPD/RPE 2 L/E SpO2/HR wt/dynaband 96 SPO2 118 HR Sit><stand X 15 X 15 Heel raises 2x20 Toe raises 2x20 Hip Abduction 2x20 RPD.RPE 3.5 Recovery SpO2/HR 97 SPO2 95 HR Warm up: Marching, side stepping, mummy kicks, and ladder climbs. Balance exercises: Tandem walk, Side step Braid, Single Leg Stance Cool down stretching: of gastroc, Rhomboid, and Triceps. Comments: Sorry I wasn't able to make last class my son I had to bring him to the doctors because he has pneumonia, luckily I didn't get pneumonia. I'm on antibiotics now 3x a week and not coughing up anything although I'm still coughing. During UE exercises I felt slightly SOB I was able to recover fast. Home exercise program: Haven't been doing exercises Aerobic goals met: yes/no New aerobic goal for the week: none P: Continue Pulmonary rehab Web ex with education 1x/week and strengthening, balance activity 2x/week as a group and 1-2 x independently Dary Wheat PTA documented in this encounter Plan of Treatment Upcoming Encounters Date Type Department Care Team (Late st Contact Info) Description 08/27/2024 4:00 PM EDT Office [place] [address] Kira Thayer MD [facility] [place] [address] documented as of this encounter Visit Diagnoses Diagnosis COPD, very severe Chronic airway obstruction, not elsewhere classified documented in this encounter Care Teams Liner Man Relationship Specialty Start Date End Date Belkys Bundy DO [address] [place] [address] PCP - General Family Medicine 03/21/19 documented as of this encounter
--- OUTSIDE RECORDS SUMMARY | 2024-03-29 08:14 | XMS_ITS | Encounter Summary ---
[place] [address] Care Team Providers Care Outreach Educator Name Role Phone Belkys Bundy Primary Care Provider +1- [phone] Reason for Visit * Reason Onset Date Comments Referral 08/15/2020 Encounter Details Date Type Department Care Team (Late st Contact Info) Description 08/15/2020 Tele[place] [id number] Emily Starr RN Referral Social History Tobacco Use Types Packs/Day Years [...] Telephone Encounter - Emily Starr RN - 08/18/2020 12:13 PM EDT Rec'd call back from [facility], seeking confirmation of dated on CT images that were requested. RN updated that CT images would be needed for 01/14/2020 and 03/28/2018. Images to be sent to [facility]. * Telephone Encounter - Emily Starr RN - 08/15/2020 2:55 PM EDT RN called to get images sent to [facility] from 05/12/2020 and 01/15/2020. RN requested image CD from [facility] image library be generated and sent to [facility] Lung Transplant Team. documented in this encounter Plan of Treatment Upcoming Encounters Date Type Department Care Team (Late st Contact Info) Description 08/27/2024 4:00 PM EDT Office [place] [address] Kira Thayer MD [facility] [address] [place] [address] documented as of this encounter Visit Diagnoses Not on filedocumented in this encounter Care Teams Outreach Educator Relationship Specialty Start Date End Date Belkys Bundy DO [address] [place] [address] PCP - General Family Medicine 03/21/19 documented as of this encounter
--- OUTSIDE RECORDS SUMMARY | 2024-03-29 08:14 | XMS_ITS | Encounter Summary ---
Author Organization [facility] [place] [address] Care Team Providers Care Chief Client Officer Name Role Phone AnaBelkys moise Primary Care Provider +1- [phone] Encounter Details Date Type Department Care Team (Late st Contact Info) Description 02/03/2021 [place] [phone] Juanis Osullivan, RT Social History Tobacco Use [...] Telephone Encounter - Juanis Osullivan RT - 02/03/2021 9:02 AM EDT Hold pulmonary rehab till 02/13/21: Jessie called and she went to urgent care at [facility] to evaluate her shoulder., No xrays done. She understood from them that her shoulder was badly bruised And she should continue to rest the right arm/shoulder. She cancelled her PCP appointment for today since she was already seen at urgent care. She trialed the heat and no change. Tobacco cessation: she is now 1 week without smoking. She is taking this 1 hour at a time. Plan: rest Right shoulder/arm. Hold pulmonary rehab till 02/13/21. Continue tobacco cessation. documented in this encounter Plan of Treatment Upcoming Encounters Date Type Department Care Team (Late st Contact Info) Description 08/27/2024 4:00 PM EDT [place] [address] Kira Thayer MD [facility] [address] [place] [address] documented as of this encounter Visit Diagnoses Not on filedocumented in this encounter Care Teams Chief Client Officer Relationship Specialty Start Date End Date Belkys Bundy DO [address] [place] [address] PCP - General Family Medicine 03/21/19 documented as of this encounter
--- OUTSIDE RECORDS SUMMARY | 2024-03-29 08:14 | XMS_ITS | Encounter Summary ---
Author Organization [facility] [place] [address] Care Team Providers Care Car Supervisor Name Role Phone Belkys Bundy Primary Care Provider +1- [phone] Encounter Details Date Type Department Care Team (Late st Contact Info) Description 12/30/2020 1:00 PM EDT TH Visit (TeleHealth) [place] [address] Juanis Osullivan, RT COPD, very severe Social [...] Progress Notes * Juanis Osullivan, RT - 12/30/2020 1:00 PM EDT Pulmonary Rehabilitation Tele health Visit for Jessie Sanchez This visit replaces an in person visit due to the COVID-19 pandemic. Patient verbally consents to this visit and understands that this visit may be billed, similar to a pulmonary rehabilitation clinic visit. Date of Encounter: 12/30/20 Supervising Physician: Scott Bradley MD Exercise session #: 21 Comments: Currently on O2 at 3 lpm. She noted that she rested this weekend. Jessie Sanchez exercised with O2 at 3 lpm. Resting SpO2= 95% with HR: 97 bpm Exercise SpO2= 95-98% with HR: 93-121 bpm Dyspnea with exercise= slight to moderate, exertion rating: moderate to hard utilizing pursed lip breathing and pacing with prn cues. Jessie noted after 1 set of lower extremity exercises were completed increased dyspnea and exertion rating. She rested till dyspnea and exertion ratings < moderate. 2nd set of lower extremity exercises done at decreased level of intensity with dyspnea and exertion ratings < moderate. Upper extremity exercises done with black dynaband. Sit to stand exercises (repetitions): 18 -1st set and 10- 2nd set. Pulmonary Rehabilitation Exercise: please see Dary Wheat's PT note No education, Jessie had other commitments this afternoon. Juanis Osullivan, ELDER COUNSELOR,DOCK BUILDER documented in this encounter Miscellaneous Notes * Treatment - Therapy - Dary Wheat, MARINE STEAM FITTER HELPER - 12/30/2020 1:00 PM EDT Pulmonary Rehabilitation Webex Exercise Flowsheet Tuesday12/30/2020 O2 3L Resting SpO2/HR 95 SPO2 97 HR Warm up SpO2/HR 98 SPO2 95 HR U/E SpO2 black Wt/dynaband 97 SPO2 93 HR Seated Row 2x25 Triceps 2x25 External Rotation 2x25 RPD/RPE 3 L/E SpO2/HR wt/dynaband 95 SPO2 121 HR 95 102 Sit><stand 1x18 1x 10 Heel raises 2x20 Toe raises 2x20 Hip Abduction 2x20 RPD.RPE 3 Recovery SpO2/HR 96 SPO2 102 HR Warm up: Marching, side stepping, mummy kicks, and ladder climbs. Balance exercises: Tandem walk, Side step Braid, Single Leg Stance Cool down stretching: of gastroc, Rhomboid, and Triceps. Comments: I'm felling ok, relaxed over the weekend, did the dishes before class today so I feel more SOB today. Shoulder feels tight low pain no increase in pain though. Breathing today is moderate and legs are hard working today. Home exercise program: Did none of the exercises, just house chores Aerobic goals met: yes/no New aerobic goal for the week: More STS through the week. P: Continue Pulmonary rehab Web ex with education 1x/week and strengthening, balance activity 2x/week as a group and 1-2 x independently Dary Wheat PTA documented in this encounter Plan of Treatment Upcoming Encounters Date Type Department Care Team (Late st Contact Info) Description 08/27/2024 4:00 PM EDT Office [place] [address] Kira Thayer MD [facility] [place] [address] documented as of this encounter Visit Diagnoses Diagnosis COPD, very severe Chronic airway obstruction, not elsewhere classified documented in this encounter Care Teams Car Supervisor Relationship Specialty Start Date End Date Belkys Bundy DO [address] [place] [address] PCP - General Family Medicine 03/21/19 documented as of this encounter
--- OUTSIDE RECORDS SUMMARY | 2024-03-29 08:14 | XMS_ITS | Encounter Summary ---
Author Organization [facility] [place] [address] Care Team Providers Care Dispensing Optician Name Role Phone Belkys Bundy Primary Care Provider +1- [phone] Encounter Details Date Type Department Care Team (Late st Contact Info) Description 08/22/2020 2:00 PM EDT TH Visit (TeleHealth) [place] [address] Juanis Osullivan, RT COPD, very severe Social [...] Progress Notes * Juanis Osullivan RT - 08/22/2020 2:00 PM EDT Pulmonary Rehabilitation Tele health Visit for Jessie Sanchez This visit replaces an in person visit due to the COVID-19 pandemic. Patient verbally consents to this visit and understands that this visit may be billed, similar to a pulmonary rehabilitation clinic visit. Date of Encounter: 08/22/20 Supervising Physician: Kervin Steiner MD Exercise session #:10 Comments: Zoe noted after exercise session on Tuesday, she noted increased feeling of hot, nauseaand vomited. She hasn't vomited since. She also noted posterior neck discomfort last exercise session went up to (11/18) . She also thought that she had slept wrong when she woke up in the morning. Today noted Posterior neck pain into her left shoulder- tender to the touch. She rates the neck/shoulder discomfort of 3/10. She had her breakfast at 5 am. Encouraged her to have a snack prior to exercise. She had 4 ritz crackers with gatorade. After upper extremity exercises she noted posterior neck pain radiating across shoulder increased to 4/10. She noted the area is tender to the touch and when does shoulder shrugs. Exercise done with pacing and Minimal exertion/dyspnea. Exercise done with O2 at 2.5 lpm with resting SpO2= 94%. Exercise SpO2= 93- 96% Neck/left shoulder pain after cool down: 05/21 Zoe denied any nausea after exercise Reviewed importance of eating at least 1 hour prior to exercise. She verbalized understanding. Reviewed signs/symptoms of chest pain/cardiac changes and to follow up with immediate medical care if noted. 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, ORTHOPEDIC NURSE,MARKETING SUPPORT MANAGER documented in this encounter Miscellaneous Notes * Treatment - Therapy - Post, Jethro Khanna, PT - 08/22/2020 2:00 PM EDT Pulmonary Rehabilitation Webex Exercise Flowsheet 08/22/2020 O2 2.5 Resting SpO2/HR 74 SPO2 84 HR Warm up SpO2/HR 96 SPO2 90 HR U/E SpO2 blue Wt/dynaband 96 SPO2 80 HR biceps 2x25 Chest press 2x25 RPD/RPE 2 L/E SpO2/HR wt/dynaband 95 SPO2 92 HR Sit><stand 2x20 Heel raises 2x20 Toe raises 2x20 Standing Knee Flexion 2x20 RPD.RPE 2.5 Recovery SpO2/HR 95 SPO2 94 HR Warm up consisting of marching, side stepping, mummy kicks, and ladder climbs. Balance exercises ofankle sway, narrow stance with head turns, and limits of stability anterior with step to recover. Cool down with stretching of gastroc, chest, and hamstring. Comments: Neck pain after last session reached 8/10 and hurt to touch side of neck and shoulder on L side. After last visit Cevallos felt hot, nauseated and vomited. Cevallos reports she had not ate that day since 5 am and also felt like she slept wrong on her neck/shoulder. Garth Osullivan instructed Cevallos to eat crackers which she ate a 4 Ritz crackers and gatoraid before warming up in today's session. Used blueband instead of black band today as well as tried to reduce exertion during today's session. Today 2-4/10 neck pain. No nausea or overheating with today's exercise session. Cevallos did not have increased neck pain with increased activity level rather that her neck pain was positional indicating muscularpain, although she was monitored closely during today's session. Cevallos instructed to seek medical attention if she had cardiac symptoms. Home exercise program: olyptical and walking Aerobic goals met: yes New aerobic goal for the week: olyptical 15 min or walking each day however taking it easy due to her neck pain. P: Continue Pulmonary rehab Web ex with education 1x/week and strengthening, balance activity 2x/week as a group and 1-2 x independently Jethro Knapp, PT, DPT documented in this encounter Plan of Treatment Upcoming Encounters Date Type Department Care Team (Late st Contact Info) Description 08/27/2024 4:00 PM EDT [place] [address] Kira Thayer MD [facility] [place] [address] documented as of this encounter Visit Diagnoses Diagnosis COPD, very severe Chronic airway obstruction, not elsewhere classified documented in this encounter Care Teams Dispensing Optician Relationship Specialty Start Date End Date Belkys Bundy DO [address] [place] [address] PCP - General Family Medicine 03/21/19 documented as of this encounter
--- OUTSIDE RECORDS SUMMARY | 2024-03-29 08:14 | XMS_ITS | Encounter Summary ---
[place] [address] Care Team Providers Care Geographical Historian Name Role Phone Belkys Bundy DO Primary Care Provider +1- [phone] Reason for Visit * Reason Onset Date Comments Ekg 10/15/2020 order requsition Encounter Details Date Type Department Care Team (Late st Contact Info) Description 10/15/2020 [place] [id number] Emily Starr RN Ekg (order requsition) Social History Tobacco Use Types Packs/Day Years [...] Telephone Encounter - Emily Starr RN - 10/15/2020 11:49 AM EDT Faxed 12 lead EKG order, signed by Dr. Thayer, to office of Dr. Belkys Bundy DO. Attached to this was a copy of the patient demographics. Fax submission confirmation time stamped for 10/15/2020 @ 4413. 4 pages with cover sheet. documented in this encounter Plan of Treatment Upcoming Encounters Date Type Department Care Team (Late st Contact Info) Description 08/27/2024 4:00 PM EDT Office [place] [address] Kira Thayer MD [facility] [place] [address] documented as of this encounter Visit Diagnoses Not on filedocumented in this encounter Care Teams Geographical Historian Relationship Specialty Start Date End Date Belkys Bundy DO [address] [place] [address] PCP - General Family Medicine 03/21/19 documented as of this encounter
--- OUTSIDE RECORDS SUMMARY | 2024-03-29 08:14 | XMS_ITS | Encounter Summary ---
Author Organization [facility] [place] [address] Care Team Providers Care Sterile Processing Tech Name Role Phone Belkys Bundy Primary Care Provider +1- [phone] Encounter Details Date Type Department Care Team (Late st Contact Info) Description 09/30/2020 10:00 AM EDT Office [place] [address] Kira Thayer MD [facility] [place] [address] COPD, very severe; Supplemental oxygen dependent; Tobacco use; Environmental allergies; Gastroesophageal reflux disease, unspecified whether esophagitis present Social History Tobacco Use Types Packs/Day Years [...] Progress Notes * Kira Thayer MD - 09/30/2020 10:00 AM EDT Images from the original note were not included. [facility] Section of Pulmonary and Critical Care Medicine Outpatient Consultation Date of Encounter: 09/30/2020 Reason for Evaluation: Ms. Jessie Sanchez returns [...] was previously evaluated in pulmonary clinic in April 2020. Ms. Sanchez reports she is feeling better; dyspnea, cough, wheezing and chest tightness are improved relative to last week. She denies chest pain, palpitations or heart racing, hemoptysis, fevers. Has trace LE edema at end of the day, but no increase in this recently. Occasional GERD, but only infrequ ently takes antacid for this. Worse with some foods (strawberry shortcake.) No recent weight loss, no recent ED visits or antibiotics other than azithromycin which I prescribed this month. She has been participating in pulmonary rehab this spring via zoom, feels it has been very effective. Past week this has been much harder than before, and she had desaturations in the low 80s. She feels like her oxygen concentrator has not bee making enough flow - when she adjusts up on the flow rate there is no corresponding increase in output. She is taking trelegy daily, on a good day it's easy to inhale, though when having increased symptoms it gets harder to inhale into lungs. She is also using albuterol MDI/duonebs each about once a day. We prescribed a prednisone taper beginning on 09/22, and she is about 7 days into that and on 20 mg daily. She completed a 5 day course of azithromycin as well. She found the prednisone/azithromycin very helpful. She notes she had an EKG at some point at her local hospital; we had requested this to establish a baseline QTc for possible chronic azithromycin use. I do not have records of this yet. She has had a covid19 vaccine. She is still smoking, 1 ppd. She just restarted the nicotine patch. She plans to cut down and try to quit smoking in the next 1-2 months. Current Medications at Start of Encounter: Outpatient Medications Prior to Visit Medication Sig Dispense Refill ??? predniSONE (Deltasone) 10 mg Tablet Take 4 tabs daily for 3 days, then 3 tabs for 3 days, then 2 tabs for 3 days then 1 tab for 3 days then stop. 30 tablet 0 ??? montelukast (Singulair) 10 mg Tablet Take 1 tablet by mouth nightly. 30 tablet 11 ??? fluticasone propionate (FLONASE) 50 mcg/actuation [place], Suspension ??? nicotine (NICODERM CQ) 21 mg/24 hr Patch 24 hr APPLY ONE PATCH TO THE SKIN EVERY DAY ??? albuteroL 90 mcg/actuation HFA Aerosol Inhaler Inhale 2 puffs into the lungs every 4 hours as needed for Wheezing or Shortness of Breath. Use with spacer 2 Inhaler 5 ??? nywmlzvdvcx-wsdnzclib-maiiapmy (Trelegy Ellipta) 200-62.5-25 mcg Disk with Device [...] mg by mouth daily as needed. ??? azithromycin (Zithromax) 250 mg Tablet Day1:take 2 tablets daily, Day 2- 5:Take one tablet daily(Patient not taking: Reported on 09/30/2020) 6 tablet 0 ??? ondansetron (Zofran) 4 mg Tablet TAKE 1 TABLET BY MOUTH EVERY 8 HOURS IF NEEDED FOR NAUSEA AND VOMITING ??? atorvastatin (Lipitor) 20 mg Tablet ??? cyclobenzaprine (Flexeril) 10 mg Tablet Take by mouth. ??? dicyclomine (BENTYL) 20 mg Tablet TAKE 1 TABLET BY MOUTH TWICE A DAY IF NEEDED FOR STOMACH UPPSET ??? fluticasone propionate (FLONASE) 50 mcg/actuation [place], Suspension by Nasal route. ??? levothyroxine (SYNTHROID) 75 mcg Tablet Take 75 mcg by mouth daily. ??? citalopram (CELEXA) 40 mg Tablet Take 40 mg by mouth every morning. ??? citalopram (CELEXA) 20 mg Tablet Take 20 mg by mouth nightly. ??? mirabegron (MYRBETRIQ ORAL) Take 20 mg by mouth daily. ??? traZODone (DESYREL) 100 mg Tablet Take 200 mg by mouth nightly. ??? ERYTHROMYCIN BASE (ERYTHROMYCIN ORAL) Take by mouth. ??? docusate sodium (COLACE) 100 mg Capsule [...] HPI, and otherwise negative. Physical Examination: BP 119/97, HR 75, Wt 75.9 kg, SpO2 88% on RA on arrival, BMI 28 GEN: NAD, alert, sitting in a wheelchair, conversational HEENT: MMM, clear OP, dentures in place, neck supple CV: RRR, quiet heart sounds, no murmur PULM: normal WOB at rest, very diminished breath sounds throughout, soft exp wheeze on left, trace crackles at lung base ABD: +BS, soft, NT, examined sitting upright MSK: no joint swelling; she did ambulate with testing today EXT: trace ankle edema, not tender NEURO: AAO, voice is clear Pulmonary Function Test Results: Spirometry not repeated with this visit. Prior testing 05/2020 notable for very severe airflow obstruction and air trapping with increased total lung volumes, impaired diffusing capacity but test difficult to interpret due to difficulty withtesting Ambulatory O2 testing completed today, reviewed, severe desaturation with ambulation and at rest, requires 2L NC O2 at rest and 3 L continuous with ambulation or 5 pulse with ambulation Labs, Microbiology and Imaging: I personally reviewed relevant laboratory, microbiologic and radiology results which were significant for: No new chest imaging Chest CT 03/2018: severe emphysema, multiple chronic stable nodules, one reported small apical nodule not previously seen, size unclear Immunization History: Flu vaccine: COVID-19 vaccine: has had covid19 vaccine spring 2020 Pneumovax: Prevnar-13: Impression and Recommendations: Jessie Sanchez is a 50 y/o woman with emphysema and severe COPD with oxygen- dependence and very severeairflow obstruction with evidence of a significant amount of air trapping on PFTs, allergies, GERD and obesity, who remains an active smoker, who presents for acute evaluation of increased respiratory symptoms this month. This was her fist in-office visit with me, and her exam confirms severely impaired air movement and wheezing, and is notable for an absence of stigmata to indicate CHF. She is feeling better after a course of steroids and azithromycin for acute COPD exacerbation. I advised herthat if symptoms increase again as she completes the prednisone we could start a trial of chronic azithromycin. We confirmed her inspiratory strength is appropriate for trelegy and MDI with spacer use, and she will continue on trelegy inhaler daily and use albuterol and duonebs PRN. Oxygen titration was done today, she will continue on 24/7 O2 as outlined below. Her home concentrator is broken and she is awaiting arrival of a new device today. Mrs. Sanchez was counseled on the importance of tobacco/smoking cessation for lung health. She is interested in quitting, and wishes to use nicotine patches for medical assistance. She has given herself a goal of cutting down to 1-2 cigarettes per day by the end of October. She will also continue in pulmonary rehab, and she was counseled on the importance of weight loss for pulmonary health. Summary Recommendations: - continue trelegy inhaler 200 daily, albuterol MDI with spacer and duonebs PRN - continue singulair/zyrtec/flonase daily - we still need a copy of her prior EKG records (she thinks done at [facility] within past year); will request again - we can start a trial of chronic azithromycin if she has increased respiratory symptoms after prednisone is completed - she is working on tobacco cessation; using patches - weight loss encouraged - continue pulm rehab program - continue supplemental NC O2: 2LPM at rest/3 LPM continuous with activity/3 pulse at rest/5 pulse with activity on POC. Follow-up with telehealth visit in 6 weeks. Thank you for involving me in Ms. Sanchez's care. Please feel free to contact me with any further questions or concerns. This visit included 4 minutes of tobacco cessation counseling. Kira Thayer MD [facility] PUL[facility] AT [facility] [address] Dept: [phone] Loc: [phone] documented in this encounter Plan of Treatment Upcoming Encounters Date Type Department Care Team (Late st Contact Info) Description 08/27/2024 4:00 PM EDT Office [place] [address] Kira Thayer MD [facility] DR PULMONARY MEDICINE [place] [id number] documented as of this encounter Visit Diagnoses Diagnosis COPD, very severe Chronic airway obstruction, not elsewhere classified Supplemental oxygen dependent Dependence on supplemental oxygen Tobacco use Tobacco use disorder Environmental allergies Allergic rhinitis, cause unspecified Gastroesophageal reflux disease, unspecified whether esophagitis present documented in this encounter Care Teams Sterile Processing Tech Relationship Specialty Start Date End Date Belkys Bundy DO [address] [place] [address] PCP - General Family Medicine 03/21/19 documented as of this encounter
--- OUTSIDE RECORDS SUMMARY | 2024-03-29 08:14 | XMS_ITS | Encounter Summary ---
Author Organization [facility] [place] [address] Care Team Providers Care Slot Supervisor Name Role Phone Belkys Bundy Primary Care Provider +1- [phone] Encounter Details Date Type Department Care Team (Late st Contact Info) Description 12/26/2020 2:00 PM EDT TH Visit (TeleHealth) [place] [address] Juanis Osullivan, RT COPD, very severe Social [...] Progress Notes * Juanis Osullivan, RT - 12/26/2020 2:00 PM EDT Pulmonary Rehabilitation Tele health Visit for Jessie Sanchez This visit replaces an in person visit due to the COVID-19 pandemic. Patient verbally consents to this visit and understands that this visit may be billed, similar to a pulmonary rehabilitation clinic visit. Date of Encounter: 12/26/20 Supervising Physician: Kervin Steiner MD Exercise session #: 20 Comments: Jessie mowed( riding mower) her lawn for 1 hour prior to exercise today. She noted breakfast was approximately 5 hours prior to exercise, had her take a break- have a snack with crackers prior to exercise. She also cleaned her bathroom this morning. Jessie Sanchez exercised With O2 at 3 lpm. Resting SpO2= 96 % with HR: 83 bpm Exercise SpO2= 96-97 % with HR: 87-98 bpm Dyspnea with exercise= moderate, Exertion rating: moderate utilizing pursed lip breathing and pacing with prn cues. Upper extremity exercises done with black dynaband. Sit to stand exercises (repetitions): 13 -1st set. Pulmonary Rehabilitation Exercise: please see Dary Wheat's PT note Juanis Osullivan, BRAKE ADJUSTER,DOUBLE SURFACE OPERATOR documented in this encounter Miscellaneous Notes * Treatment - Therapy - Dary Wheat, WEB FEEDER - 12/26/2020 2:00 PM EDT Pulmonary Rehabilitation Webex Exercise Flowsheet 12/26/2020 O2 3L Resting SpO2/HR 96 SPO2 83 HR Warm up SpO2/HR 95 SPO2 102 HR U/E SpO2 black Wt/dynaband 97 SPO2 87 HR Biceps 2x25 Chest press 2x25 Shoulder ABD Didn't do RPD/RPE 3 L/E SpO2/HR wt/dynaband 96 SPO2 98 HR Sit><stand 1x13 2nd set didn't do Heel raises 2x20 Toe raises 2x20 Standing Knee Flexion 2x20 RPD.RPE 3 Recovery SpO2/HR 97 SPO2 91 HR Warm up: Standing marching, side stepping, mummy kicks, and ladder climbs. Balance exercises: ankle sway, narrow stance with head turns, and limits of stability anterior withstep to recover. Cool down stretching: Gastroc, chest, and hamstring Comments: Jessie has no SOB today just tired due to mowing her lawn and cleaning her bathroom beforeclass today. Jessie today took it easy today on the STS due slight SOB inc. Home exercise program: Same Aerobic goals met: yes/no New aerobic goal for the week: none P: Continue Pulmonary rehab Web ex with education 1x/week and strengthening, balance activity 2x/week as a group and 1-2 x independently Dary Wheat PTA documented in this encounter Plan of Treatment Upcoming Encounters Date Type Department Care Team (Late st Contact Info) Description 08/27/2024 4:00 PM EDT Office [place] [address] Kira Thayer MD [facility] [address] [place] [address] documented as of this encounter Visit Diagnoses Diagnosis COPD, very severe Chronic airway obstruction, not elsewhere classified documented in this encounter Care Teams Slot Supervisor Relationship Specialty Start Date End Date Belkys Bundy DO [address] [place] [address] PCP - General Family Medicine 03/21/19 documented as of this encounter
--- OUTSIDE RECORDS SUMMARY | 2024-03-29 08:14 | XMS_ITS | Encounter Summary ---
Author Organization [facility] [place] [address] Care Team Providers Care Computer Repair Instructor Name Role Phone Belkys Bundy Primary Care Provider +1- [phone] Encounter Details Date Type Department Care Team (Late st Contact Info) Description 09/30/2020 Tele[place] [phone] Juanis Osullivan RT Social History Tobacco Use [...] Telephone Encounter - Juanis Osullivan RT - 09/30/2020 2:27 PM EDT home and portable oxygen concentrator orders, demographics and clinical documentation faxed to [facility] Fax: documented in this encounter Plan of Treatment Upcoming Encounters Date Type Department Care Team (Late st Contact Info) Description 08/27/2024 4:00 PM EDT Office [place] [address] Kira Thyaer MD [facility] [place] [address] documented as of this encounter Visit Diagnoses Not on filedocumented in this encounter Care Teams Computer Repair Instructor Relationship Specialty Start Date End Date Belkys Bundy DO [address] [place], [place] [address] [address] PCP - General Family Medicine 03/21/19 documented as of this encounter
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
--- OUTSIDE RECORDS SUMMARY | 2024-03-29 08:14 | XMS_ITS | Encounter Summary ---
Author Organization [facility] Address [facility] [place] [address] Care Team Providers Care Valet Parking Attendant Name Role Phone Belkys Bundy Primary Care Provider +1- [phone] Encounter Details Date Type Department Care Team (Late st Contact Info) Description 01/09/2021 Telephone [place] [phone] Kira Thayer MD [facility] [place] [address] Social History Tobacco Use Types Packs/Day Years [...] Telephone Encounter - Kira Thayer MD - 01/09/2021 3:16 PM EDT Notified by RT that she was coughing and feeling ill. Called patient to discuss; she reports increased cough, productive of sputum, lots of fatigue. No hemoptysis, fever, chest pain, chest tightness or change in dyspnea, but just doesn't feel well. Has had increased cough for a week now. Son is sick, but was negative for covid19. No other sick contacts. She is using trelegy and duonebs. We discussed option of treating for COPD exacerbation with prednisone and resuming azithromycin. She feels she would benefit from these. Rx sent to pharmacy: - pred 40 x 5 days - azithromycin 500 mg three times weekly (she confirmed not taking zofran or SSRI currently.) - ruel sun refill sent I asked her to call clinic to schedule her f/u visit as well. Kira Thayer MD documented in this encounter Plan of Treatment Upcoming Encounters Date Type Department Care Team (Late st Contact Info) Description 08/27/2024 4:00 PM EDT Office [place] [address] [facility] [address] [place] [address] documented as of this encounter Visit Diagnoses Not on filedocumented in this encounter Care Teams Valet Parking Attendant Relationship Specialty Start Date End Date Belkys Bundy DO [address] [place] [address] PCP - General Family Medicine 03/21/19 documented as of this encounter
--- OUTSIDE RECORDS SUMMARY | 2024-03-29 08:14 | XMS_ITS | Encounter Summary ---
[place] [address] Care Team Providers Care Sales Solutions Associate Name Role Phone Belkys Bundy Primary Care Provider +1- [phone] Encounter Details Date Type Department Care Team (Late st Contact Info) Description 09/17/2020 2:00 PM EDT TH Visit (TeleHealth) [place] [address] Juanis Osullivan, RT COPD, very severe Social [...] Progress Notes * Juanis Osullivan RT - 09/17/2020 2:00 PM EDT Pulmonary Rehabilitation Tele health Visit for Jessie Sanchez This visit replaces an in person visit due to the COVID-19 pandemic. Patient verbally consents to this visit and understands that this visit may be billed, similar to a pulmonary rehabilitation clinic visit. Date of Encounter: 09/17/20 Supervising Physician: Kervin Steiner MD Exercise session #: 12 Comments: Exercise done utilizing O2 at 3 lpm SpO2 at rest= 96% HR: 82 bpm, With exercise SpO2= 92-95% HR: 88-106 bpm Dyspnea with exercise= moderate ( 3.5) utilizing pacing and pursed lip breathing with prn cues Sit to stand exercises: 12 repetitions Upper extremities exercises with red dynaband Pulmonary Rehabilitation Exercise: please see Jennifer Morales's PT note Pulmonary Rehabilitation Education Topic: Pulmonary Function Testing Presenter: MD Jessie Alba participated in discussion. Juanis Osullivan, MATERIAL COORDINATOR,TEST DESK SUPERVISOR documented in this encounter Miscellaneous Notes * Treatment - Therapy - Jennifer Morales PT - 09/17/2020 2:00 PM EDT Pulmonary Rehabilitation Webex Exercise Flowsheet 09/17/2020 O2 3 Resting SpO2/HR 96 SPO2 82 HR Warm up SpO2/HR 92 SPO2 106 HR U/E SpO2 black Wt/dynaband 95 % 89 HR Seated Row 2x20 Triceps 2x20 External Rotation 2x20 RPD/RPE 3.5 L/E SpO2/HR wt/dynaband 94 % 88 HR Sit><stand 12 Heel raises 2x20 Toe raises 2x20 Hip Abduction 2x20 RPD.RPE 3.5 Recovery SpO2/HR 97% 90 HR Warm up consisting of marching, side stepping, mummy kicks, and ladder climbs. Balance exercises tandem walk, side step/braid and single leg stance. Cool down with stretching of gastroc,rhomboid and triceps stretch. Comments:tolerated session well. Home exercise program: walked outside ~ 20 min x 1. Limited ths past week because of warm temperatures and humidity Aerobic goals met: no New aerobic goal [...] PM EDT Office [place] [address] Kira Thayer MD [facility] [place] [address] documented as of this encounter Visit Diagnoses Diagnosis COPD, very severe Chronic airway obstruction, not elsewhere classified documented in this encounter Care Teams Sales Solutions Associate Relationship Specialty Start Date End Date Belkys Bundy DO [address] [place] [address] PCP - General Family Medicine 03/21/19 documented as of this encounter
--- OUTSIDE RECORDS SUMMARY | 2024-03-29 08:14 | XMS_ITS | Encounter Summary ---
Author Organization [facility] [place] [address] Care Team Providers Care Sourcer Name Role Phone AnasandrarodBelkys moore Primary Care Provider +1- [phone] Encounter Details Date Type Department Care Team (Late st Contact Info) Description 11/05/2020 Telephone [place] [phone] Juanis Osullivan, RT Social History Tobacco Use [...] Telephone Encounter - Juanis Osullivan RT - 11/05/2020 10:13 AM EDT Jessie Sanchez called And noted that she is very busy getting her son ready to resume school. She is asking to hold telehealth pulmonary rehabilitation till the beginning of December. She will continue her home exercise program in the interim. Plan: -hold pulmonary rehab telehealth till the of December -6 minute walk, pulm rehab screening tools reassessment on 12/08/20 at 9 am. documented in this encounter Plan of Treatment Upcoming Encounters Date Type Department Care Team (Late st Contact Info) Description 08/27/2024 4:00 PM EDT Office [place] [address] Kira Thayer MD [facility] [place] [address] documented as of this encounter Visit Diagnoses Not on filedocumented in this encounter Care Teams Sourcer Relationship Specialty Start Date End Date Belkys Bundy DO [address] [place] [address] PCP - General Family Medicine 03/21/19 documented as of this encounter
--- OUTSIDE RECORDS SUMMARY | 2024-03-29 08:14 | XMS_ITS | Encounter Summary ---
[place] [address] Care Team Providers Care Human Resources Coordinator Name Role Phone Belkys Bundy Primary Care Provider +1- [phone] Encounter Details Date Type Department Care Team (Late st Contact Info) Description 09/26/2020 2:00 PM EDT TH Visit (TeleHealth) [place] [address] Juanis Osullivan, RT COPD, very severe Social [...] Progress Notes * Juanis Osullivan, RT - 09/26/2020 2:00 PM EDT Pulmonary Rehabilitation Tele health Visit for Jessie Sanchez This visit replaces an in person visit due to the COVID-19 pandemic. Patient verbally consents to this visit and understands that this visit may be billed, similar to a pulmonary rehabilitation clinic visit. Date of Encounter: 09/26/20 Supervising Physician: Kervin Steiner MD Exercise session #: 13 Comments: First day back to telehealth pulmonary rehabilitation since AE COPD. She continues on herprednisone and antibiotics. Prn cough noted during exercise session today. Jessie Sanchez exercised on 3 lpm O2 Resting SpO2= 95 % with HR: 79 bpm Exercise SpO2= 88 % after warmup, after resting approximately 3 minutes SpO2 improved to 95% Remainder of Exercise SpO2= 93-94% with HR: 89-101 bpm Dyspnea with exercise= moderate ( NIK= 3) utilizing pursed lip breathing and pacing with cues. Upper extremity exercises done with green dynaband. Modified Sit to stand exercises: 15 repetitions 1st set and 20 repetitions 2nd set. 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, OPTICAL INSTRUMENT SPECIALIST,MANAGER FLORAL documented in this encounter Miscellaneous Notes * Treatment - Therapy - Jethro Knapp PT - 09/26/2020 2:00 PM EDT Pulmonary Rehabilitation Webex Exercise Flowsheet 09/26/2020 O2 3 Resting SpO2/HR 95 SPO2 79 HR Warm up SpO2/HR 88 SPO2 98 HR U/E SpO2 Black Wt/dynaband 94 SPO2 89 HR biceps yes Chest press yes RPD/RPE 3 L/E SpO2/HR wt/dynaband 93 SPO2 91 HR Sit><stand 2x20 Heel raises yes Toe raises yes Standing Knee Flexion yes RPD.RPE 3 Recovery SpO2/HR 80 SPO2 101 HR Warm up consisting of marching, side stepping, mummy kicks, and ladder climbs. Balance exercises ofankle sway, narrow stance with head turns, and limits of stability anterior with step to recover. Cool down with stretching of gastroc, chest, and hamstring. Comments:tolerated session well. Home exercise program: walked [...] 4:00 PM EDT Office [place] [address] Kira Thayer MD [facility] [place] [address] documented as of this encounter Visit Diagnoses Diagnosis COPD, very severe Chronic airway obstruction, not elsewhere classified documented in this encounter Care Teams Human Resources Coordinator Relationship Specialty Start Date End Date Belkys Bundy DO [address] [place] [address] PCP - General Family Medicine 03/21/19 documented as of this encounter
--- OUTSIDE RECORDS SUMMARY | 2024-03-29 08:14 | XMS_ITS | Encounter Summary ---
Author Organization [facility] [place] [address] Care Team Providers Care Military Analyst Name Role Phone AnasandrarodBelkys moore Primary Care Provider +1- [phone] Encounter Details Date Type Department Care Team (Late st Contact Info) Description 01/27/2021 Tele[place] [phone] Juanis Osullivan RT Social History Tobacco Use [...] Telephone Encounter - Juanis Osullivan RT - 01/27/2021 11:27 AM EDT Jessie called: Right shoulder injury: Jessie fell out of bed last Tue, 01/21. She was sitting malian style on the bed and reaching out with her right arm for something and fell off the bed and landed on her right shoulder. She understood that she hit the top of the shoulder and noted it was really bruised and soreness. She is trying to move the arm routinely. She hasn't been seen by anyone to elevate the shoulder/arm. We discussed follow up on the shoulder. She decided that she would start with icing the shoulder and take ibuprofen per the bottle instructions ( 400 mg every 6-8 hours). Holding pulmonary rehab today. Respiratory: -She noted her breathing was a little better today. She quit smoking cold turkey today. No cigarettes left in the house and no one else smokes in thehouse. - continues with prn cough. Current respiratory regimen: - prednisone taper- completed. - Azithromycin 500 mg 3 times per week - Duoneb every 4 hours as needed- she hasn't been taking these - Trelegy 200-63.5-25 mcg once a day -albuterol HFA 90 mcg 2 puffs every 4 hours as needed, Taking a couple of times per week -montelukast 10 mg per day Plan: hold pulmonary rehabilitation today. She will call back on Tuesday with update. Message sent to Pulmonary rehab PT- Called back to Jessie and she will follow up with PCP office for evaluation of her right shoulder to rule out a tear or fracture. Scheduled follow up appointment with PFT with Dr. Thayer on 02/18/21. documented in this encounter Plan of Treatment Upcoming Encounters Date Type Department Care Team (Late st Contact Info) Description 08/27/2024 4:00 PM EDT Office [place] [address] Kira Thayre MD [facility] DR [place]ULMONARY [place] [address] documented as of this encounter Visit Diagnoses Not on filedocumented in this encounter Care Teams Military Analyst Relationship Specialty Start Date End Date Belkys Bundy DO [address] [place] [address] PCP - General Family Medicine 03/21/19 documented as of this encounter
--- OUTSIDE RECORDS SUMMARY | 2024-03-29 08:14 | XMS_ITS | Encounter Summary ---
[place] [address] Care Team Providers Care Workgroup Leader Name Role Phone Belkys Bundy Primary Care Provider +1- [phone] Encounter Details Date Type Department Care Team (Late st Contact Info) Description 10/01/2020 2:00 PM EDT TH Visit (TeleHealth) [place] [address] Juanis Osullivan, RT COPD, very severe Social [...] Progress Notes * Juanis Osullivan, RT - 10/01/2020 2:00 PM EDT Pulmonary Rehabilitation Tele health Visit for Jessie Sanchez This visit replaces an in person visit due to the COVID-19 pandemic. Patient verbally consents to this visit and understands that this visit may be billed, similar to a pulmonary rehabilitation clinic visit. Date of Encounter: 10/01/20 Supervising Physician: Kervin Steiner MD Exercise session #: 14 Comments: Jessie confirmed that she received her home oxygen concentrator and portable oxygen concentrator from [facility]. She noted that she is feeling significantly better with the use of oxygen at home. Jessie Sanchez exercised on 4 pulse dose Resting SpO2= 99 % with HR: 78 bpm Exercise SpO2= 94-97 % with HR: 84-93 bpm Dyspnea with exercise= moderate ( NIK= 3) utilizing pursed lip breathing and pacing with cues. Upper extremity exercises done with green dynaband. Modified Sit to stand exercises ( repetitions) : 25 -1st set and 20- 2nd set. Pulmonary Rehabilitation Exercise: please see Jethro Knapp's PT note Pulmonary Rehabilitation Education Topic: Energy Conservation Presenter: Jethro Knapp, PT Jessie Sanchez participated in discussion to modify activities to conserve energy. Juanis Osullivan, VAT WASHER,MUD TANK OPERATOR documented in this encounter Miscellaneous Notes * Treatment - Therapy - Post, Jethro Khanna PT - 10/01/2020 2:00 PM EDT Pulmonary Rehabilitation Webex Exercise Flowsheet 10/01/2020 O2 4L pulsed Resting SpO2/HR 99 SPO2 78 HR Warm up SpO2/HR 96 SPO2 84 HR U/E SpO2 green Wt/dynaband 97 SPO2 84 HR Seated Row yes Triceps yes External Rotation yes RPD/RPE 3 L/E SpO2/HR wt/dynaband 94 SPO2 93 HR Sit><stand 25 mod, 20 mod Heel raises yes Toe raises yes Hip Abduction yes RPD.RPE 3 Recovery SpO2/HR 97 SPO2 84 HR Warm up consisting of marching, side stepping, mummy kicks, and ladder climbs. Balance exercises ofankle sway, narrow stance with head turns, and limits of stability anterior with step to recover. Cool down with stretching of gastroc, chest, and hamstring. Comments: feeling much better. Tolerated session well. Home exercise program: walked outside ~ 20 min x 1. Limited ths past week because of not feeling well Aerobic goals met: no New aerobic goal for the week: olyptical 15 min or walking each day. P: Continue Pulmonary rehab Web ex with education 1x/week and strengthening, balance activity 2x/week as a group and 1-2 x independently Jethro Post, PT, DPT documented in this encounter Plan of Treatment Upcoming Encounters Date Type Department Care Team (Late st Contact Info) Description 08/27/2024 4:00 PM EDT Office [place] [address] Kira Thayer MD [facility] [address] [place] [address] documented as of this encounter Visit Diagnoses Diagnosis COPD, very severe Chronic airway obstruction, not elsewhere classified documented in this encounter Care Teams Workgroup Leader Relationship Specialty Start Date End Date Belkys Bundy DO [address] [place] [address] PCP - General Family Medicine 03/21/19 documented as of this encounter
--- OUTSIDE RECORDS SUMMARY | 2024-03-29 08:14 | XMS_ITS | Encounter Summary ---
Author Organization [facility] [place] [address] Care Team Providers Care Commercial Subcontractor Name Role Phone Belkys Bundy DO Primary Care Provider +1- [phone] Encounter Details Date Type Department Care Team (Late st Contact Info) Description 01/29/2021 Telephone [place] [address] Millicent Valles Social History Tobacco Use Types [...] 4:00 PM EDT Office [place] [address] Kira Thayer MD [facility] [address] documented as of this encounter Visit Diagnoses Not on filedocumented in this encounter Care Teams Commercial Subcontractor Relationship Specialty Start Date End Date Belkys Bundy DO [address] [place] [address] PCP - General Family Medicine 03/21/19 documented as of this encounter
--- OUTSIDE RECORDS SUMMARY | 2024-03-29 08:14 | XMS_ITS | Encounter Summary ---
Author Organization [facility] [place] [address] Care Team Providers Care Fur Grader Name Role Phone Belkys Bundy Primary Care Provider +1- [phone] Encounter Details Date Type Department Care Team (Late st Contact Info) Description 01/09/2021 2:00 PM EDT TH Visit (TeleHealth) [place] [address] Juanis Osullivan, RT COPD, very severe Social [...] Progress Notes * Juanis Osullivan, RT - 01/09/2021 2:00 PM EDT Pulmonary Rehabilitation Tele health Visit for Jessie Sanchez This visit replaces an in person visit due to the COVID-19 pandemic. Patient verbally consents to this visit and understands that this visit may be billed, similar to a pulmonary rehabilitation clinic visit. Date of Encounter: 01/09/21 Supervising Physician: Kervin Steiner MD Exercise session #: 23 Comments: Jessie noted the past 2 days she has been resting in bed secondary to increased respiratory congestion, coughing, increased fatigue- feeling drained right out and headache. Currently productive cough of clear with some yellow sputum. Currently taking her Duoneb once a day, reviewed taking it prior to her Trelegy, in the evening prior to bedtime and every 4-6 hours as needed. Currently she doesn't have her sick day plan medications at home. Her son also has a really bad cold with dry cough He has been tested for Covid-19, negative. Jessie Sanchez exercised With O2 at 3 lpm. Resting SpO2= 97 % with HR: 91 bpm Exercise SpO2= 97 % with HR: 91-110- bpm Dyspnea with exercise= slight, exertion rating: moderate utilizing pursed lip breathing and pacing with prn cues. Upper extremity exercises done with black dynaband. Sit to stand exercises (repetitions): 10-1st set and 13- 2nd set. Pulmonary Rehabilitation Exercise: please see Dary Wheat's RERECORDING MIXER note Sent update to Dr. Thayer. Juanis Osullivan, AS400 ANALYST,FOUNDRY PROCESS ENGINEER documented in this encounter Miscellaneous Notes * Treatment - Therapy - Dary Wheat, RERECORDING MIXER - 01/09/2021 2:00 PM EDT Pulmonary Rehabilitation Webex Exercise Flowsheet 01/09/21 O2 3L Resting SpO2/HR 97 SPO2 91 HR Warm up SpO2/HR No Warmup U/E SpO2 Black Wt/dynaband 97 SPO2 110 HR Biceps 2x25 Chest press 2x25 Shoulder ABD 2x25 RPD/RPE 3 L/E SpO2/HR wt/dynaband 97 SPO2 110 HR Sit><stand x10 x13 Heel raises 2x20 Toe raises 2x20 Standing Knee Flexion 2x20 RPD.RPE 3 Recovery SpO2/HR 98 SPO2 101 HR Warm up: No warmup performed Balance exercises: ankle sway, narrow stance with head turns, and limits of stability anterior withstep to recover. Cool down stretching: Gastroc, chest, and hamstring, 2 sets Comments: I feel good overall, although I have been fighting off a cold the last couple of days. Ihave a low grade headache and a congested cough (clear sputum). I used a neb yesterday, overall I'mjust very tired not going to over due with exercises today. Juanis Osullivan RT instructed Jessie to take neb after medication (See note). Home exercise program: Play exercise by ear depending on how she's feeling. Aerobic goals met: yes/no New aerobic goal for the week: None P: Continue Pulmonary rehab Web ex with education 1x/week and strengthening, balance activity 2x/week as a group and 1-2 x independently Dary Wheat PTA documented in this encounter Plan of Treatment Upcoming Encounters Date Type Department Care Team (Late st Contact Info) Description 08/27/2024 4:00 PM EDT Office [place] [address] Kira Thayer MD [facility] [place] [address] documented as of this encounter Visit Diagnoses Diagnosis COPD, very severe Chronic airway obstruction, not elsewhere classified documented in this encounter Care Teams Fur Grader Relationship Specialty Start Date End Date Belkys Bundy DO [address] [place] [address] PCP - General Family Medicine 03/21/19 documented as of this encounter
--- OUTSIDE RECORDS SUMMARY | 2024-03-29 08:14 | XMS_ITS | Encounter Summary ---
Author Organization [facility] [place] [address] Care Team Providers Care Rehabilitation Center Manager Name Role Phone Belkys Bundy Primary Care Provider +1- [phone] Encounter Details Date Type Department Care Team (Late st Contact Info) Description 09/22/2020 [place] [phone] Juanis Osullivan, RT Social History Tobacco Use [...] as of this encounter Miscellaneous Notes * Addendum Note - Christi Pruett MD - 09/22/2020 3:23 PM EDTAddended by: CHRISTI PRUETT on: 09/22/2020 03:23 PM Modules accepted: Orders * Telephone Encounter - Christi Pruett MD - 09/22/2020 3:12 PM EDT Called Jessie to check in; she reports increased sinus congestion, green nasal discharge, and significantly increased sputum production with darker color, and increased dyspnea, with fatigue, nausea, generally feeling unwell. Feels like her previous COPD exacerbations. No specific triggers, but she notes allergies sometimes have triggered flares of breathing. Denies fevers or chest pain. In the past prednisone has helped acute flares with prolonged course, as has azithromycin. On the phone she sounds congested and fatigued, but not audibly in distress, speaking in shortened sentences. A/P: COPD exacerbation, possible allergic trigger. - prednisone taper (40 x 3 days, 30 x 3 days 20 x 3 days 10 x 3 days) - azithromycin x 5 days - continue inhalers and duonebs PRN - she is covid vaccinated, with no known exposures and afebrile; do not suspect this is covid - she will call if worsening Christi Pruett MD * Telephone Encounter - Juanis Osullivan RT - 09/22/2020 12:09 PM EDT Called Jessie Sanchez at home to follow up on: -home/portable oxygen: reviewed per [facility]- no Medicare claims for her O2. Plan for home O2 evaluation at 10/06 pulmonary appointment and transition to other [facility] O2 provider. Respiratory status: -Jessie noted increased respiratory symptoms over the past few days. She was wondering if she was coming down with something Currently with: - productive cough of yellow/green sputum -increased wheezing -2 pillow orthopnea and waking up prn at night secondary to cough - green rhinitis -SpO2 on room air with activity desaturating to 88%., with O2 at 3 lpm maintaining > 90%. With 95% at rest. She is wearing her O2 at night for sleep. - she noted that she normally fluctuates between being cold and hot, unsure if any change and hasn't checked her temperature -last Tuesday, 09/19- didn't attend telehealth pulmonary rehab secondary to being nausea -she denies sick contacts. Current respiratory regimen: - Duoneb 2 times per day- she will increase to 4 times per day - Trelegy once a day - montelukast 10 mg at night Telehealth pulmonary rehab: - she noted that she enjoys the telehealth pulm rehab program ,but recently has noted difficulty focusing with the increased background noise from some of the participants. Plan to review with all participants importance of decreasing background noise/interruptions- mute if needed. And utilizing the chat feature if they are noting difficulty focusing due to other's back ground noise. Plan: forward to Dr. Pruett regarding: - increased respiratory symptoms - plan for home O2 evaluation on 10/06 to transition to another O2 provider documented in this encounter Plan of Treatment Upcoming Encounters Date Type Department Care Team (Late st Contact Info) Description 08/27/2024 4:00 PM EDT Office [place] [address] Christi Pruett MD [facility] [place] [address] documented as of this encounter Visit Diagnoses Not on filedocumented in this encounter Care Teams Rehabilitation Center Manager Relationship Specialty Start Date End Date Belkys Bundy DO [address] [place] [address] PCP - General Family Medicine 03/21/19 documented as of this encounter
--- OUTSIDE RECORDS SUMMARY | 2024-03-29 08:14 | XMS_ITS | Encounter Summary ---
Author Organization [facility] [place] [address] Care Team Providers Care Form Coverer Name Role Phone Belkys Bundy Primary Care Provider +1- [phone] Encounter Details Date Type Department Care Team (Late st Contact Info) Description 01/16/2021 [place] [phone] Juanis Osulilvan RT Social History Tobacco Use Types Packs/Day [...] Telephone Encounter - Juanis Osullivan RT - 01/16/2021 10:31 AM EDT Jessie Sanchez called and left message: She won't be able to attend pulm rehab telehealth appointment tomorrow secondary to conflicting family's members medical appointment. documented in this encounter Plan of Treatment Upcoming Encounters Date Type Department Care Team (Late st Contact Info) Description 08/27/2024 4:00 PM EDT Office [place] [address] Kira Thayer MD [facility] [address] [place] [address] documented as of this encounter Visit Diagnoses Not on filedocumented in this encounter Care Teams Form Coverer Relationship Specialty Start Date End Date Belkys Bundy DO [address] [place] [address] PCP - General Family Medicine 03/21/19 documented as of this encounter
--- OUTSIDE RECORDS SUMMARY | 2024-03-29 08:14 | XMS_ITS | Encounter Summary ---
[place] [address] Care Team Providers Care Manager Business Banking Name Role Phone Belkys Bundy Primary Care Provider +1- [phone] Reason for Visit * Reason Onset Date Comments Oxygen Dependence 10/02/2020 Certificate of Medical Necessity Encounter Details Date Type Department Care Team (Late st Contact Info) Description 10/02/2020 Telephone [place] [phone] Emily Starr RN Oxygen Dependence (Certificate of Medical Necessity) Social History Tobacco Use Types Packs/Day Years [...] Telephone Encounter - Emily Starr RN - 10/02/2020 8:59 AM EDT Faxed completed Certificate of Medical Necessity, signed by Dr. Thayer, to [facility]. This covered the following items: E1390 - Oxygen Concentrator 0-5 LPM K1390 - Generic- 5 Liter Oxygen Concentrator Fax submission confirmation time stamped for 10/02/2020 @ 0844. 4 pages with cover sheet. Copy of Certificate of Medical Necessity sent to scanning for inclusion to patient records. documented in this encounter Plan of Treatment Upcoming Encounters Date Type Department Care Team (Late st Contact Info) Description 08/27/2024 4:00 PM EDT Office [place] [address] Kira Thayer MD [facility] [place] [address] documented as of this encounter Visit Diagnoses Not on filedocumented in this encounter Care Teams Manager Business Banking Relationship Specialty Start Date End Date Belkys Bundy DO [address] [place] [address] PCP - General Family Medicine 03/21/19 documented as of this encounter
--- OUTSIDE RECORDS SUMMARY | 2024-03-29 08:14 | XMS_ITS | Encounter Summary ---
Author Organization [facility] [place] [address] Care Team Providers Care Flow Machine Operator Name Role Phone Belkys Bundy DO Primary Care Provider +1- [phone] Encounter Details Date Type Department Care Team (Late st Contact Info) Description 08/29/2020 Telephone [place] [phone] Monisha Khalil Social History Tobacco Use Types Packs/Day Years [...] 4:00 PM EDT Office [place] [address] Kira Thayer MD [facility] [place] [address] documented as of this encounter Visit Diagnoses Not on filedocumented in this encounter Care Teams Flow Machine Operator Relationship Specialty Start Date End Date KreBelkys moise DO [address] [place] [address] PCP - General Family Medicine 03/21/19 documented as of this encounter
--- OUTSIDE RECORDS SUMMARY | 2024-03-29 08:14 | XMS_ITS | Encounter Summary ---
Author Organization [facility] [place] [address] Care Team Providers Care Director Of Head Start Name Role Phone Belkys Bundy DO Primary Care Provider +1- [phone] Encounter Details Date Type Department Care Team (Late st Contact Info) Description 10/20/2020 Tele[place] [phone] Millicent Valles Social History Tobacco Use Types [...] 4:00 PM EDT Office [place] [phone] Kira Thayer MD [facility] [place] [address] documented as of this encounter Visit Diagnoses Not on filedocumented in this encounter Care Teams Director Of Head Start Relationship Specialty Start Date End Date Belkys Bundy DO [address] [place] [address] PCP - General Family Medicine 03/21/19 documented as of this encounter
--- OUTSIDE RECORDS SUMMARY | 2024-03-29 08:14 | XMS_ITS | Encounter Summary ---
[place] [address] Care Team Providers Care Labor Economist Name Role Phone Belkys Bundy Primary Care Provider +1- [phone] Encounter Details Date Type Department Care Team (Late st Contact Info) Description 12/23/2020 1:00 PM EDT TH Visit (TeleHealth) [place] [address] Juanis Osullivan, RT COPD, very severe Social [...] Progress Notes * Juanis Osullivan, RT - 12/23/2020 1:00 PM EDT Pulmonary Rehabilitation Tele health Visit for Jessie Sanchez This visit replaces an in person visit due to the COVID-19 pandemic. Patient verbally consents to this visit and understands that this visit may be billed, similar to a pulmonary rehabilitation clinic visit. Date of Encounter: 12/23/20 Supervising Physician: Kervin Steiner MD Exercise session #: 19 Comments: Jessie's first day back in pulmonary rehabilitation after time off in November due to familycommitments and GI issues. She noted no surgery at this time for her GI concerns. She continues to have RUQ abdominal pain tiny bit Initially on O2 at 2 pulse dose at rest: 97% HR: 83 pm With exercise increased to 3 pulse dose. Resting SpO2 on 2 pulse dose= 97 % with HR: 83 bpm Exercise SpO2= 95-98 % with HR: 85- 96 bpm Dyspnea with exercise=slight, Exertion rating: Slight to moderate - utilizing pursed lip breathing and pacing with prn cues. Upper extremity exercises done with black dynaband. Sit to stand exercises (repetitions): 15 -1st set and 10- 2nd set. Pulmonary Rehabilitation Exercise: please see Dary Wheat's [employer] note Juanis Osullivan, GEOPHYSICAL E LOGGER,CLOSET ORGANIZER documented in this encounter Miscellaneous Notes * Treatment - Therapy - Dary Wheat, [employer] - 12/23/2020 1:00 PM EDT Pulmonary Rehabilitation Webex Exercise Flowsheet Tuesday12/23/2020 O2 2L rest 3L exercise Resting SpO2/HR 97 SPO2 83 HR Warm up SpO2/HR 96 SPO2 85 HR U/E SpO2 Black Wt/dynaband 98 SPO2 85 HR Seated Row 2x25 Triceps 2x25 External Rotation 2x25 RPD/RPE 2.5 3 L/E SpO2/HR wt/dynaband 96 SPO2 95 HR Sit><stand 1x15 1x10 Heel raises 2x20 Toe raises 2x20 Hip Abduction 2x20 RPD.RPE 3 Recovery SpO2/HR 97 SPO2 88 HR Warm up: Marching, side stepping, mummy kicks, and ladder climbs. Balance exercises: Tandem walk, Side step Braid, Single Leg Stance Cool down stretching: of gastroc, Rhomboid, and Triceps. Comments: My breathing is not the best I have slight SOB. My R side is still sore small amount of pain. Jessie did great and was able to participate throughout all of class today with no increase inSOB/Pain. Home exercise program: Walking Aerobic goals met: yes/no New aerobic goal for the week: P: Continue Pulmonary rehab Web ex with education 1x/week and strengthening, balance activity 2x/week as a group and 1-2 x independently Dary Wheat PTA documented in this encounter Plan of Treatment Upcoming Encounters Date Type Department Care Team (Late st Contact Info) Description 08/27/2024 4:00 PM EDT [place] [address] Kira Thayer MD [facility] [place] [address] documented as of this encounter Visit Diagnoses Diagnosis COPD, very severe Chronic airway obstruction, not elsewhere classified documented in this encounter Care Teams Labor Economist Relationship Specialty Start Date End Date Belkys Bundy DO [address] [place] [address] PCP - General Family Medicine 03/21/19 documented as of this encounter
--- OUTSIDE RECORDS SUMMARY | 2024-03-29 08:15 | XMS_ITS | Encounter Summary ---
Author Organization [facility] [place] [address] Care Team Providers Care Citizen Participation Specialist Name Role Phone Belkys Bundy DO Primary Care Provider +1- [phone] Encounter Details Date Type Department Care Team (Late Contact Info) Description 03/27/2019 [place] [phone] Cristin Block Social History Tobacco Use Types Packs/Day Years Used Date Smoking Tobacco: Every Day Cigarettes 2 15 Smokeless Tobacco: Never Comments:7 days ago Alcohol Use Standard Drinks/Week Comments Yes 0 [...] 4:00 PM EDT [place] [address] Kira Thayer MD [facility] [place] [address] documented as of this encounter Visit Diagnoses Not on filedocumented in this encounter Care Teams Citizen Participation Specialist Relationship Specialty Start Date End Date Belkys Bundy DO [address] [place] [address] PCP - General Family Medicine 03/21/19 documented as of this encounter
--- OUTSIDE RECORDS SUMMARY | 2024-03-29 08:15 | XMS_ITS | Encounter Summary ---
Author Organization [facility] Address [facility] [place] [address] Care Team Providers Care Post Graduate Intern Name Role Phone Belkys Bundy DO Primary Care Provider +1- [phone] Reason for Visit * Reason Comments Skin Check * Consultation (Routine) - Specialty Diagnoses / Procedures Referred By Rossy levine Referred To Contact Dermatology Diagnoses Disorder of the skin and subcutaneous tissue, unspecified Lesion left upper chest Procedures Consult Belkys Bundy DO [address] [place] [address] Deven Payan MD [address] [place] [address], [place] [address] Referral ID Status Reason Start Date Expiration Date V isits Requested Visits Authorized [id number] Consult, Test & Treat PCP Updated and/or Approved 03/18/2019 03/17/2020 6 6 Encounter Details Date Type Department Care Team (Late st Contact Info) Description 05/17/2019 8:15 AM EST Office Visit Dermatology at [address] [address] Deven Payan MD [address] [place] [address], [place] [address] Sebaceous hyperplasia; Telangiectasia Social History Tobacco Use Types Packs/Day Years [...] as of this encounter Progress Notes * Deven Payan MD - 05/17/2019 8:15 AM EST Problem: Skin lesion of concern Jessie is a 48-year-old woman who is referred today in consultation by Belkys Bundy for evaluation of a lesion on her left upper lateral chest, and also of the left mid jawline. Patient is very fair skinned has had a lot of sun exposure over the years. She does not follow any particular sun avoidance precautions. She does have grasp to mow every summer and does so on a riding mower. She does not root does not routinely wear a hat or use any sunscreen when doing this. Physical examination reveals a pleasant 48-year-old woman who has brown eyes but fair freckled skinand very fair hair. She has numerous ephilids present on the upper chest and back. She has 2 linearpapules of xanthelasma of the upper medial eyelids bilaterally. She has and angioma presents as a dilated telangiectasias on the left mid jawline, and a papule of sebaceous aplasia on the left upper a nterior chest. Is slightly erythematous. Otherwise examination of her chest her back her face handsarms of forearms benign. Assessment plan: Benign skin examination 1. Patient reassured about benign skin lesions today, telangiectasia/angioma and sebaceous hyperplasia, respectively. 2. Encouraged sun avoidance precautions. Discussed risk of skin cancer being higher given her fair skin type 3. Discussed recognition of nonmelanoma skin cancer. 4. Answered patient questions. 5. Return to clinic to be PRN. CC: Belkys Bundy DO documented in this encounter Plan of Treatment Upcoming Encounters Date Type Department Care Team (Late st Contact Info) Description 08/27/2024 4:00 PM EDT Office [place] [address] Kira Thayer MD [facility] [address] [place] [address] documented as of this encounter Visit Diagnoses Diagnosis Sebaceous hyperplasia Other specified disease of sebaceous glands Telangiectasia Other and unspecified capillary diseases documented in this encounter Care Teams Post Graduate Intern Relationship Specialty Start Date End Date Belkys Bundy DO [address] [place] [address] PCP - General Family Medicine 03/21/19 documented as of this encounter
--- OUTSIDE RECORDS SUMMARY | 2024-03-29 08:15 | XMS_ITS | Encounter Summary ---
Author Organization [facility] [place] [address] Care Team Providers Care Gas Plant Operator Name Role Phone Belkys Bundy Primary Care Provider +1- [phone] Encounter Details Date Type Department Care Team (Latest Contact Info) Description 06/25/2020 9:30 AM EDT TH Visit (TeleHealth) [place] [address] Kira Thayer MD [facility] [place] [address] COPD, very severe; Supplemental oxygen dependent; Tobacco [...] Progress Notes * Kira Thayer MD - 06/25/2020 9:30 AM EDT Images from the original note were not included. [facility] Section of Pulmonary and Critical Care Medicine Outpatient Consultation Date of Encounter: 06/25/2020 TELEHEALTH VISIT Patient identity was confirmed by name and date of at beginning of this telehealth visit. Patient was informed that this telehealth visit is a billable encounter and stated agreement to continue. The patient [place] at [place]. Reason for Evaluation: Ms. Jesise Sanchez returns to the pulmonary clinic for follow-up of COPD and allergies. I independently interviewed the patient, have examined the patient if this visit was conducted in the office and have reviewed available records. Dear Dr. Belkys Bundy, DO, As you know, Jessie Sanchez is a 49 y.o. woman with emphysema and severe COPD with oxygen-dependence, allergies, and obesity, who was previously evaluated in pulmonary clinic in April 2020. Mrs. Sanchez reports she is doing pretty well. Her breathing is okay. She feels the higher dose of trelegy is helping with dyspnea, and getting some teaching points in pulmonary rehab on inhaler technique. She is having sinus stuffiness, which she thinks are allergies, maybe from her cat and dog.She does still have a productive cough, increased a little when she quit smoking. Occasional wheezing. No chest pain. She is getting some walking in, currently goes to [employer] and can do a big lab around the store as long as it's with a cart. She is doing well with pulmonary rehab, and tells me she feels this is helpful. She has some back soreness. Her weight is stable; working on weight loss. She is working on quitting smoking, and is down to about 4 cigarettes per day. She is going to try nicotine gummies; she has tried the patches a little bit. She feels she is making progress. She is taking trelegy, zyrtec, flonase. She is listed as having singulair but tells me she is not taking this currently (unsure why it changed.) She is using supplemental oxygen intermittently at home. SpO2 is typically 93% at rest, lower as soon as she starts moving (as low as 80%.) She is using an inogen concentrator at 3-4, and if on the concentrator she is using 2.5. She uses 2.5 LPM O2 at night. Current Medications at Start of Encounter: Outpatient Medications Prior to Visit Medication Sig Dispense Refill ??? fluticasone propionate (FLONASE) 50 mcg/actuation [place], Suspension ??? montelukast (Singulair) 10 mg Tablet Daily ??? nicotine (NICODERM CQ) 21 mg/24 hr Patch 24 hr APPLY ONE PATCH TO THE SKIN EVERY DAY ??? ondansetron (Zofran) 4 mg Tablet TAKE 1 TABLET BY MOUTH EVERY 8 HOURS IF NEEDED FOR NAUSEA AND VOMITING ??? predniSONE (Deltasone) 20 mg Tablet TAKE 1 TABLET BY MOUTH DAILY FOR 5 DAYS THEN ONE HALF DAILYFOR 5 DAYS THEN STOP ??? fluticasone propionate (FLONASE) 50 mcg/actuation [place], Suspension by Nasal route. ??? atorvastatin (Lipitor) 20 mg Tablet ??? [...] Use with spacer 2 Inhaler 5 ??? ridodwpcwou-akesvchvd-qgsmqyro (Trelegy Ellipta) 200-62.5-25 mcg Disk with Device Inhale 1 Inhalation into the lungs daily. 28 each ??? cetirizine (ZyrTEC) 10 mg Tablet Take 10 mg by mouth daily. ??? ipratropium-albuteroL (DUONEB) 0.5 mg-3 mg(2.5 mg base)/3 mL Solution for Nebulization USE 1 VIAL VIA NEBULIZER 4 TIMES A DAY NEEDED FOR SHORTNESS OF BREATH/ WHEEZING ??? morphine IR (MSIR) 15 mg Tablet ??? levothyroxine (SYNTHROID) 75 mcg Tablet Take [...] BASE (ERYTHROMYCIN ORAL) Take by mouth. ??? omeprazole (PRILOSEC) 20 mg Capsule, Delayed Release(E.C.) Take 20 mg by mouth daily. ??? docusate sodium (COLACE) 100 mg Capsule Take 100 mg by mouth 3 times daily as needed for Constipation. ??? buPROPion (WELLBUTRIN SR) 150 mg Tablet Sustained Release Take 150 mg by mouth 2 times daily. ??? IBUPROFEN ORAL ??? DILTiazem (CARDIZEM) 30 mg tablet No facility-administered medications prior to visit. Physical Examination: Telehealth visit; exam limited. In no distress, comfortable and conversational. Normal WOB. Pulmonary Function Test Results: Date FVC FEV1 Ratio TLC RV RV/TLC ERV DLCO 6MWT 05/26/2020 1.82 L (50% pred) 0.55 L (19% pred) 30 142% pred 306% pred elevated 33% pred DLCO testing did not meet ATS criteria due to difficulty sustaining adequate breath hold. I personally reviewed flow-volume loops and other tests. Results are most consistent with very severe airflow obstruction, elevated TLC and RV concerning for significant air trapping, and severely impaired diffusing capacity. Labs, Microbiology and Imaging: I personally reviewed relevant laboratory, microbiologic and radiology results which were significant for: Prior chest CT scans received: Chest CT 03/28/2018: Per written report: Negative for PE; diffuse emphysema present, pulmonary nodules most of which are reported as stable compared with testing in 2013, one new pulmonary nodule (small, apical; size not precisely reported.) Impression and Recommendations: Jessie Sanchez is a 49 y/o woman with emphysema and severe COPD with oxygen- dependence, allergies, andobesity, who remains an active smoker and who has ongoing exertional dyspnea. Recent spirometry confirms very severe airflow obstruction and a very significant amount of air trapping. We will try to o ptimize her respiratory care: she remains on triple inhaled therapy with trelegy, and we will startchronic azithromycin once we confirm she has had a recent EKG with normal QTc (she thinks she may have had this done at [facility] recently. She is engaged with pulmonary rehab. She is already using supplemental home O2. She is interested in a referral to a lung transplant center, and I will place a referral to [place] for this. I think this may be valuable for starting a conversation around transplant. I counseled her on the importance of complete tobacco abstinence, and she is working on quitting. She understands this is a prerequisite for lung transplant. We also discussed the importance of weight loss in becoming a candidate for lung transplant. Summary Recommendations: - continue trelegy inhaler 200 daily - will request EKG records (she thinks done at [facility] within past year); if hasn't been done may needupdated EKG this spring - plan to start trial of chronic azithromycin after obtaining EKG - will work on referral to lung transplant center ([place]) - she is working on tobacco cessation - weight loss encouraged - continue pulm rehab - yanet/DLCO with next visit Follow-up in 3 months with in-office visit Thank you for involving me in Mrs. Sanchez's care. Please feel free to contact me with any further questions or concerns. I personally spent 28 minutes of this telephone/telehealth encounter with the patient discussing their pulmonary disease and treatment recommendations as outlined in my assessment and plan above. This visit involved a total of 31 minutes of clinical time on day of visit. Kira Thayer MD [facility] PULMONOLOG[facility] AT [facility] [address] Dept: [phone] Loc: [phone] documented in this encounter Plan of Treatment Upcoming Encounters Date Type Department Care Team (Late st Contact Info) Description 08/27/2024 4:00 PM EDT Office [place] [address] Kira Thayer MD [facility] [place] [address] documented as of this encounter Results * [...] / FVC LLN 69 % COMPAS PFT [id number] Actual Pre-BD 0.30 L/s COMPAS PFT [id number] Pre-BD % of Predicted 11 % COMPAS PFT ECK61-95 Predicted 2.78 L/s COMPAS PFT IJQ54-34 Pre-BD Z-Score -4.34 COMPAS PFT DLCO Hb [...] supplemental oxygen Tobacco use Tobacco use disorder COPD, very severe Chronic airway obstruction, not elsewhere classified documented in this encounter Care Teams Gas Plant Operator Relationship Specialty Start Date End Date Belkys Bundy DO [address] [place] [address] PCP - General Family Medicine 03/21/19 documented as of this encounter
--- OUTSIDE RECORDS SUMMARY | 2024-03-29 08:15 | XMS_ITS | Encounter Summary ---
[facility] [place] [address] Care Team Providers Care Milking Worker Name Role Phone Belkys Bundy Primary Care Provider +1- [phone] Encounter Details Date Type Department Care Team (Latest Contact Info) Description 06/20/2020 2:00 PM EST TH Visit (TeleHealth) [place] [address] Juanis Osullivan, RT Supplemental oxygen dependent; COPD, very severe Social History Tobacco Use [...] as of this encounter Progress Notes * Sindy Brewer, RT - 06/20/2020 2:00 PM EST Pulmonary Rehabilitation Tele health Visit for Jessie Sanchez This visit replaces an in person visit due to the COVID-19 pandemic. Patient verbally consents to this visit and understands that this visit may be billed, similar to a pulmonary rehabilitation clinic visit. Date of Encounter: 06/20/20 Supervising Physician: Kervin Steiner MD Pulmonary Rehabilitation Exercise: please see Jennifer Morales's PT note Sindy Brewer, RT documented in this encounter Miscellaneous Notes * Treatment - Therapy - Jennifer Morales, PT - 06/20/2020 2:00 PM EST Pulmonary Rehabilitation Webex Exercise Flowsheet 06/13/2006/20 O2 3L 3L Resting SpO2/HR 90% 74 97% 86 Warm up SpO2/HR 92% 87 93% 98 U/E SpO2 Wt/dynaband 96% 84 96% 101 biceps 2x10 Blue band pt had 2x15 Red t-band triceps Upright row Pull aparts Chest press 2x10 2x10 RPD/RPE L/E SpO2/HR wt/dynaband 94% 91 96% 100 Sit><stand 15 15 Heel raises/toe raises 2x10 2x10 Sitting knee extension Sitting hip flexion St hip ext 2x[address] knee flex 2 x10 2x10 RPD.RPE Recovery SpO2/HR 96% 82 95% 98 Warm up-marching in place, side step, balance exercises -anterior and posterior ankle sway, anterior stepping strategy and standing head turns and cool down with stretching (hamstrings, chest stretchand gastroc stretches.. Comments: tolerated session well. Home exercise program: ski machine 3x/week for 15 min each Aerobic goals met: to be determined 06/27/20 New aerobic goal for the week: as above P: Continue Pulmonary rehab Web ex with education 1x/week and strengthening, balance activity 2 x/week as a group and 1-2 x independently 60 min there ex Jennifer Morales PT documented in this encounter Plan of Treatment Upcoming Encounters Date Type Department Care Team (Late st Contact Info) Description 08/27/2024 4:00 PM EDT Office [place] [address] Kira Thayer MD [facility] [address] [place] [address] documented as of this encounter Visit Diagnoses Diagnosis Supplemental oxygen dependent Dependence on supplemental oxygen COPD, very severe Chronic airway obstruction, not elsewhere classified documented in this encounter Care Teams Milking Worker Relationship Specialty Start Date End Date Belkys Bundy DO [address] [place] [address] PCP - General Family Medicine 03/21/19 documented as of this encounter
--- OUTSIDE RECORDS SUMMARY | 2024-03-29 08:15 | XMS_ITS | Encounter Summary ---
Author Organization [facility] [address] Care Team Providers Care Certified Pest Control Technician Name Role Phone Belkys Bundy Primary Care Provider +1- [phone] Encounter Details Date Type Department Care Team (Late st Contact Info) Description 08/08/2020 2:00 PM EDT TH Visit (TeleHealth) [place] [address] Juanis Osullivan, RT COPD, very severe Social [...] Progress Notes * Juanis Osullivan RT - 08/08/2020 2:00 PM EDT Pulmonary Rehabilitation Tele health Visit for Jessie Sanchez This visit replaces an in person visit due to the COVID-19 pandemic. Patient verbally consents to this visit and understands that this visit may be billed, similar to a pulmonary rehabilitation clinic visit. Date of Encounter: 08/08/20 Supervising Physician: Scott Bradley MD Exercise session #: 7 Comments: Exercise today with oxygen at 3 lpm. SpO2 maintained at 95% or greater with exercise. Tolerated exercise with moderate dyspnea utilizing pacing and pursed lip breathing with prn cues. 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, AMBULATORY SERVICE REPRESENTATIVE,SHUTTLE OPERATOR documented in this encounter Miscellaneous Notes * Treatment - Therapy - Jethro Knapp PT - 08/08/2020 2:00 PM EDT Pulmonary Rehabilitation Webex Exercise Flowsheet 08/08/2020 O2 3 L continous Resting SpO2/HR 97 SPO2 81 HR Warm up SpO2/HR 95 SPO2 102 HR U/E SpO2 black Wt/dynaband 97 SPO2 90 HR biceps 2x25 Chest press 2x25 RPD/RPE 3 L/E SpO2/HR wt/dynaband 96 SPO2 100 HR Sit><stand 2x20 Heel raises 2x20 Toe raises 2x20 Standing Knee Flexion 2x20 RPD.RPE 3 Recovery SpO2/HR 95 SPO2 96 HR Warm up consisting of marching, side stepping, mummy kicks, and ladder climbs. Balance exercises ofankle sway, narrow stance with head turns, and limits of stability anterior with step to recover. Cool down with stretching of gastroc, chest, and hamstring. Comments: walking 10-15 min with no O2 and has plans to clean the house. Home exercise program: olyptical Aerobic goals met: yes New aerobic goal [...] 4:00 PM EDT Office [place] [address] Kira Thayer MD [facility] [place] [address] documented as of this encounter Visit Diagnoses Diagnosis COPD, very severe Chronic airway obstruction, not elsewhere classified documented in this encounter Care Teams Certified Pest Control Technician Relationship Specialty Start Date End Date Belkys Bundy DO [address] [place] [address] PCP - General Family Medicine 03/21/19 documented as of this encounter
--- OUTSIDE RECORDS SUMMARY | 2024-03-29 08:15 | XMS_ITS | Encounter Summary ---
Author Organization [facility] [place] [address] Care Team Providers Care Stamping Machine Operator Name Role Phone Belkys Bundy Virginie MYRICK Primary Care Provider +1- [phone] Reason for Visit * Physical Therapy (Routine) - Closed Specialty Diagnoses / Procedures Referred By Rossy levine Referred To Contact Physical Therapy Diagnoses COPD, very severe Kervin Steiner Jr., MD [facility] [place] [address] Adolph Morales, PT [facility] PHYSICAL MEDICINE & [place] [address] Referral ID Status Reason Start Date Expiration Date V isits Requested Visits Authorized [id number] Closed Evaluate and Treat 06/12/2020 06/12/2021 100 100 Encounter Details Date Type Department Care Team (Late st Contact Info) Description 07/08/2020 9:00 AM EDT TH Visit (TeleHealth) [place] [address] Adolph Morales, PT [facility] PHYSICAL MEDICINE & [place] [address] Chronic obstructive pulmonary disease, unspecified COPD type [...] as of this encounter Miscellaneous Notes * Initial Evaluation - Adolph Morales PT - 07/08/2020 9:00 AM EDT Rehabilitation Medicine - Telemedicine Encounter Patient: Jessie Sanchez MR Number: [id number] Date of : 1970 Home [address]: [address] [place] [address] Phone Number (Home, Mobile): Mobile Not on file. Date of Visit: 07/08/2020 Patient Location at time of visit: [address] [place] [address], [place], [place]; Jessie Sanchez is aware that I will need to confirm this location each time we meet. Others in the same physical location as the patient: none This therapist is legally able to treat the patient in [place] and [place] via Telehealth due to license waiver agreement during Covid 19 crisis. NOTE: Jessie Sanchez has verbally consented to participate in a Telemedicine visit with ADOLPH MORALES PT as her Rehabilitation Medicine provider while the [facility] Covid 19 crisis is taking place. This Telemedicine visit was comprised of both Audio and Visual through a secure [facility] throughout the duration of this visit. Patient understands this is a therapy service and will be billed to her insurance. Patient consents that therapy or educational materials could be sent through [facility] or e-mail addressat: [email or web address]. Jessie Sanchez did not have any questions for me at this time and was informed the best way to reach me is through [facility]. Activities of Daily Living Assessment - Pulmonary Rehab [x] INITIAL ASSESSMENT [] REASSESSMENT Date: 07/08/2020 ADL Management impaired? (Y/N) No Need for assistive device? (Y/N) No Device(s) used? none N/A [x] No assistive device no assistive device Fall History: No history of falls within the past year Sit to Stand Test: 10 [employer]: PT 1-1 Assessment for Stair Climbing: BASELINE VITALS: SpO2: 92% O2: RA HR: 89 NIK: 2 RPE: 0 STAIRS: # of stairs: 12 (3 x4 steps) SpO2: 91% O2: RA HR: 101 NIK: 3 RPE: 3 RECOVERY: 1 min and 25 seconds SpO2: 92% O2: RA HR: 89 NIK: 2 RPE: 0 Comments Pt has home O2 but opted not to wear it during today eval. Will used it for exercise. H/o low back pain 0-5/10. Prolonged standing/leaning increases pain Plan / Intervention / Education [x] Instruction - ADL with pacing and dyspnea control [x] Attend Breathing Retraining class [x] Assistive device evaluation recommendations and resources [x] Attend Energy Conservation Class [x] PT Training for stair climbing [x] PT Evaluation Comments Target / Goal(s) [x] Utilizing pursed lip breathing with activity [x] Management of ADL's with dyspnea control [x] Has ordered assistive devices / DME [x] Verbalizes understanding of appropriate use of DME Personal Goal(s) [x] elliptical 15 min 3x/week Exercise Plan including Exercise Prescription - Pulmonary Rehab Mode: ellpitical Frequency: W, F class + home exercise 2-3 days per week Duration: 20-40 min daily Intensity: 3-4 Mets RPD: 3-4 RPE: 3-4 Max HR: 171 Resistance: Green dynabands O2: O2 at 2 L for exercise Progression: Titrate to symptoms # of sessions planned: As per Juanis Osullivan, RT Comments APHRmax and THR 49 y.o. APHRMax = 171 bpm THR 65%: 111 bpm THR 85%: 145 bpm Age Predicted Heart Rate Max (APHRmax) = 220 - Age) Target HR (THR) = APHRmax (65%-80%) Pt education provided re exercise portion of Pulmonary rehab. Starting T-band determined. Handout with NIK scale and outline of class provided. 45 min eval Adolph Morales PT documented in this encounter Plan of Treatment Upcoming Encounters Date Type Department Care Team (Late st Contact Info) Description 08/27/2024 4:00 PM EDT Office [place] [address] Kira Thayer MD [facility] [place] [address] Scheduled Referrals Name Type Priority Associated Diagnoses Orde r Schedule Referral to Physical Therapy Outpatient Referral Routine COPD, very severe Ordered: 06/12/2020 documented as of this encounter Visit Diagnoses Diagnosis Chronic obstructive pulmonary disease, unspecified COPD type documented in this encounter Care Teams Stamping Machine Operator Relationship Specialty Start Date End Date Belkys Bundy DO [address] [place] [address] PCP - General Family Medicine 03/21/19 documented as of this encounter
--- OUTSIDE RECORDS SUMMARY | 2024-03-29 08:15 | XMS_ITS | Encounter Summary ---
Author Organization [facility] [place] [address] Care Team Providers Care Inventory Control Coordinator Name Role Phone Belkys Bundy Primary Care Provider +1- [phone] Encounter Details Date Type Department Care Team (Late st Contact Info) Description 06/11/2020 Telephone [place] [phone] Juanis Osullivan RT Social History Tobacco Use [...] Telephone Encounter - Juanis Osullivan RT - 06/11/2020 11:16 AM EST Called Jessie Daniel at home. verified she has access to my for pulmonary rehab telehealth encounter. will also schedule 1-1 PT pulmonary rehab telehealth visit with Jessie. documented in this encounter Plan of Treatment Upcoming Encounters Date Type Department Care Team (Late st Contact Info) Description 08/27/2024 4:00 PM EDT Office [place] [address] Kira Thayer MD [facility] [place] [address] documented as of this encounter Visit Diagnoses Not on filedocumented in this encounter Care Teams Inventory Control Coordinator Relationship Specialty Start Date End Date Belkys Bundy DO [address] [place] [address] PCP - General Family Medicine 03/21/19 documented as of this encounter
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
--- OUTSIDE RECORDS SUMMARY | 2024-03-29 08:15 | XMS_ITS | Encounter Summary ---
Author Organization [facility] [place] [address] Care Team Providers Care Mainspring Winder Name Role Phone Jessie Dover APRN Primary Care Provider [phone] Reason for Visit * - Closed Specialty Diagnoses / Procedures Referred By Rossy levine Referred To Contact Procedures Film Library- Storage Only CT Chest Belkys Bundy DO [address] [place] [address] Referral ID Status Reason Start Date Expiration Date Visits Re quested Visits Authorized [id number] Closed 06/27/2020 06/27/2021 1 1 Encounter Details Date Type Department Care Team (Late st Contact Info) Description 03/28/2018 Ancillary Procedure Radiology Library at [facility] [place] [address] Belkys Bundy DO [address] [place] [address] Social History Tobacco Use Types Packs/Day Years Used Date Smoking Tobacco: Every Day Cigarettes 2 15 Comments:7 days ago Alcohol Use Standard Drinks/Week [...] 4:00 PM EDT [place] [address] Kira Thayer MD [facility] [place] [address] documented as of this encounter Procedures Procedure Name Priority Date/Time Associated Diagnosis Comments FILM LIBRARY STORAGE ONLY CT CHEST Routine 03/28/2018 12:00 AM EST documented in this encounter Results * Film Library- Storage Only CT Chest (03/28/2018 12:00 AM EST) Narrative [facility] - 06/27/2020 4:44 PM EDT This exam is auto-finalizing. It's purpose is for storage only. Belkys Bundy DO IMG FILM LIBRARY O RDERABLES [place], [place] documented in this encounter Visit Diagnoses Not on filedocumented in this encounter Care Teams Mainspring Winder Relationship Specialty Start Date End Date Jessie Dover APRN PCP - General 06/19/13 08/29/18 documented as of this encounter
--- OUTSIDE RECORDS SUMMARY | 2024-03-29 08:15 | XMS_ITS | Encounter Summary ---
[facility] [place] [place] [address] Care Team Providers Care Senior Adults Director Name Role Phone Belkys Bundy Primary Care Provider [phone] Encounter Details Date Type Department Care Team (Late st Contact Info) Description 07/09/2020 2:00 PM EDT TH Visit (TeleHealth) [place] [address] Juanis Osullivan, RT COPD, very severe Social [...] Progress Notes * Juanis Osullivan, RT - 07/09/2020 2:00 PM EDT Pulmonary Rehabilitation Tele health Visit for Jessie Sanchez This visit replaces an in person visit due to the COVID-19 pandemic. Patient verbally consents to this visit and understands that this visit may be billed, similar to a pulmonary rehabilitation clinic visit. Date of Encounter: 07/09/20 Supervising Physician: Scott Bradley MD Exercise session: #3 Comments: Jessie received her first covid-19 vaccination on Tuesday, 07/06. She noted significant leftarm pain/swelling after the vaccination. She took ibuprofen x 1 after for pain management. Today left arm pain= 1-2/10. She also notes increased fatigue today. Exercise done on O2 at 3 lpm. Pulmonary Rehabilitation Exercise: please see Jethro Knapp's PT note Pulmonary Rehabilitation Education Topic: Energy Conservation Presenter:Jethro Knapp, PT Jessie noted that she is going to trial a long handle mop for energy conservation strategy Juanis Osullivan, APPARATUS REPAIR MECHANIC,ELECTRICAL SOFTWARE ENGINEER documented in this encounter Miscellaneous Notes * Treatment - Therapy - Jethro Knapp PT - 07/09/2020 2:00 PM EDT Pulmonary Rehabilitation Webex Exercise Flowsheet 07/09/2020 O2 3 L pulse Resting SpO2/HR 98 spo27 72 HR Warm up SpO2/HR 96 spo2 95 HR L/E SpO2 W/ green theraband 95 spo2 82 HR Sit to stand 1st set 12, second set mini squats x10 Heel Raises 15 Toe raise 20 Hip ABD 1st set R 20 , L 15, Second set 15 each side RPD/RPE - U/E SpO2/HR wt/dynaband 97 spo2 76 HR Triceps 2 sets of 15 Upright Row 2 sets of 15 Pull Apart 1 set of 15 second set of 20 RPD.RPE - Recovery SpO2/HR 95 spo2 90 HR Comments: Jessie did no do any exercise since her last session due to getting her first COIVD vaccine which resulted in a sore arm with current pain 2-3/10 and fatigue. Did well with new green theraband. Warm up consisting of marching, side stepping, and ladder climbs as well as balance exercises consisting of Single leg stance and tandem stance and cool down with stretching of gastroc, hip flexors, and triceps Home exercise program: Aerobic goals met: yes/no New aerobic goal for the week: use olyptical for 15 minutes a few days a week. P: Continue Pulmonary rehab Web ex with education 1x/week and strengthening, balance activity 2x/week as a group and 1-2 x independently Jethro Knapp, PT, DPT documented in this encounter Plan of Treatment Upcoming Encounters Date Type Department Care Team (Late st Contact Info) Description 08/27/2024 4:00 PM EDT Office Visit [place] [address] [facility] [place] [address] documented as of this encounter Visit Diagnoses Diagnosis COPD, very severe Chronic airway obstruction, not elsewhere classified documented in this encounter Care Teams Senior Adults Director Relationship Specialty Start Date End Date Belkys Bundy DO [address] [place] [address] PCP - General Family Medicine 03/21/19 documented as of this encounter
--- OUTSIDE RECORDS SUMMARY | 2024-03-29 08:15 | XMS_ITS | Encounter Summary ---
Author Organization [facility] [place] [address] Care Team Providers Care Parts Product Analyst Name Role Phone Belkys Bundy DO Primary Care Provider [phone] Encounter Details Date Type Department Care Team (Late st Contact Info) Description 01/14/2020 Ancillary Procedure Radiology Library at [facility] [place] [id number] Kira Thayer MD [facility] [place] [address] Social History Tobacco Use Types Packs/Day Years [...] 4:00 PM EDT Office Visit Pulmonology at [facility] [place] [phone] Kira Thayer MD [facility] [place] [address] documented as of this encounter Procedures Procedure Name Priority Date/Time Associated Diagnosis Comments FILM LIBRARY STORAGE ONLY CT ABDOMEN AND PELVIS Routine 01/14/2020 12:00 AM EDT documented in this encounter Results * Film Library- Storage Only CT Abdomen & Pelvis (01/14/2020 12:00 AM EDT) Narrative RAD - 08/18/2020 1:02 PM EDT This exam is auto-finalizing. It's purpose is for storage only. Kira Thayer MD IMG FILM LIBRARY ORD ERABLES Performing Organization Address City/State/[facility] Co de Phone Number [place], [place] documented in this encounter Visit Diagnoses Not on filedocumented in this encounter Care Teams Parts Product Analyst Relationship Specialty Start Date End Date Belkys Bundy DO [address] [place] [address] PCP - General Family Medicine 03/21/19 documented as of this encounter
--- OUTSIDE RECORDS SUMMARY | 2024-03-29 08:15 | XMS_ITS | Encounter Summary ---
Author Organization [facility] [place] [address] Care Team Providers Care Freight Rate Analyst Name Role Phone Belkys Bundy DO Primary Care Provider [phone]- [phone] Encounter Details Date Type Department Care Team (Late st Contact Info) Description 07/04/2020 Telephone [place] [address] Eva Swenson Social History Tobacco Use Types Packs/Day Years [...] 4:00 PM EDT Office Visit [place] [address] Kira Thayer MD [facility] [place] [address] documented as of this encounter Visit Diagnoses Not on filedocumented in this encounter Care Teams Freight Rate Analyst Relationship Specialty Start Date End Date Belkys Bundy DO [address] [place] [address] PCP - General Family Medicine 03/21/19 documented as of this encounter
--- OUTSIDE RECORDS SUMMARY | 2024-03-29 08:15 | XMS_ITS | Encounter Summary ---
Author Organization [facility] [place] [address] Care Team Providers Care Upper Tier Name Role Phone Belkys Bundy Primary Care Provider [phone] Encounter Details Date Type Department Care Team (Late st Contact Info) Description 07/25/2020 2:00 PM EDT TH Visit (TeleHealth) [place] [address] Juanis Osullivan, RT COPD, very severe Social [...] Progress Notes * Juanis Osullivan RT - 07/25/2020 2:00 PM EDT Pulmonary Rehabilitation Tele health Visit for Jessie Sanchez This visit replaces an in person visit due to the COVID-19 pandemic. Patient verbally consents to this visit and understands that this visit may be billed, similar to a pulmonary rehabilitation clinic visit. Date of Encounter: 07/25/20 Supervising Physician: Scott Bradley MD Exercise session: # 5 Comments: Exercise done utilizing O2 at 3 lpm and dyspnea at moderate level. She completed her prednisone taper 3 days ago. Yesterday she walked around the [employer]. 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, LENS GENERATOR,DIRECTOR OF DEVELOPMENT documented in this encounter Miscellaneous Notes * Treatment - Therapy - Jethro Knapp PT - 07/25/2020 2:00 PM EDT Pulmonary Rehabilitation Webex Exercise Flowsheet ? 07/25/2020 O2 3L Resting SpO2/HR 98 spo2 75 Warm up SpO2/HR 95 spo2 85 HR U/E SpO2 and HR With blue theraband ?? 96 spo2 71 HR bicep ?? 15x2 Chest press 1x15 1x20 seated row 2x25 Internal rotation 2x20 RPD/RPE 3 L/E SpO2/HR 97 spo2 83 HR Sit to Stand 15 mini squat, 15 sit to stand Heel raises 2x20 Toe raises 1x30, 1x25 Knee flexion 1x20, 1x25 RPD.RPE 3 Recovery SpO2/HR 97spo2 82 HR ?? Warm up consisting of marching, mummy kicks, and ladder climbs. Balance exercises of tandem stance and single leg stance. Cool down with stretching of gastroc, chest, and hamstring. ?? Comments: Jessie Sanchez walked around [employer] a few times before shopping for exercise. Is 3 days off prednisone. ?? Home exercise program: will do something for exercise such as olyptical or walking outside. ?? Aerobic goals met: yes ?? New aerobic goal for the week: exercise in 3-4 mets range building tolerance more than 5 minutes. ?? P: Continue Pulmonary rehab Web ex with education 1x/week and strengthening, balance activity 2x/week as a group and 1-2 x independently ? Jethro Knapp, PT, DPT documented in this encounter Plan of Treatment Upcoming Encounters Date Type Department Care Team (Late st Contact Info) Description 08/27/2024 4:00 PM EDT Office [place] [address] Kira Thayer MD [facility] [place] [address] documented as of this encounter Visit Diagnoses Diagnosis COPD, very severe Chronic airway obstruction, not elsewhere classified documented in this encounter Care Teams Upper Tier Relationship Specialty Start Date End Date Belkys Bundy DO [address] [place] [address] PCP - General Family Medicine 03/21/19 documented as of this encounter
--- OUTSIDE RECORDS SUMMARY | 2024-03-29 08:15 | XMS_ITS | Encounter Summary ---
Author Organization [facility] [place] [address] Care Team Providers Care Tool And Die Maker Name Role Phone Gladis Jones APRN Primary Care Provider [phone] Reason for Visit * Auth/Cert Specialty Diagnoses / Procedures Referred By Rossy levine Referred To Contact Diagnoses intestinal metaplasia proclear Procedures PRO UPPER GI ENDOSCOPY, DIAGNOSTIC EGD, UPPER GI ENDOSCOPY Referral ID Status Reason Start Date Expiration Date Visits Re quested Visits Authorized [id number] 1 1 Encounter Details Date Type Department Care Team (Latest Contact Info) Description 09/25/2018 2:35 PM EDT - 09/25/2018 5:00 PM EDT Hospital Encounter [place] [address] Sammie Johnson MD [facility] [place] [address] Discharge Disposition: Home Social History Tobacco Use [...] Sign Reading Time Taken Comments Blood Pressure 104/77 09/25/2018 4:50 PM EDT Pulse 85 09/25/2018 4:20 PM EDT Temperature - - Respiratory Rate 12 09/25/2018 4:20 PM EDT Oxygen Saturation 93% 09/25/2018 4:55 PM EDT Inhaled Oxygen Concentration - - Weight - - Height - - Body Mass Index - - documented in this encounter Discharge Instructions * Discharge Instructions* Carisa Heart RN - 09/25/2018 4:34 PM EDT UPPER GI ENDOSCOPY WHAT TO EXPECT AFTER THE PROCEDURE After the test you may feel a little more gassy or bloated than usual, this is normal. ACTIVITY Because of the sedation that you received Your judgement and reaction time are affected ?? Go home and rest quietly for the remainder of the day. You may resume your normal activities tomorrow. ?? Change from one position to the next slowly. You may lose your balance unexpectedly Be careful on stairs, as you may be unsteady on your feet. FOR THE NEXT 24 HRS ?? DO NOT DRIVE OR OPERATE ANY MACHINERY ?? DO NOT DRINK ALCOHOLIC BEVERAGES ?? DO NOT SIGN LEGAL DOCUMENTS ?? If you are a smoker: DO NOT SMOKE WHILE YOU ARE ALONE Diet ?? Start by eating small portions of foods that ordinarily will not upset your stomach. Be gentle with what you choose to start with. ?? Drink plenty of fluids ( unless otherwise told not to) Medications You may have a mild sore throat. Ice chips, popsicles, over the counter throat lozenges or spray may help numb your throat. This procedure should not cause a fever. IV SITE-- slight redness or tenderness is normal, you can use warm compresses if you get concerned.If the tenderness +/or redness increases or foul drainage and a red streak occurs, please contact your PCP immediately. WHEN SHOULD YOU CALL FOR HELP? Call 911 anytime you think that you need emergency care. For example, call if: You passed out (lost consciousness). You cough up blood. You vomit blood or what looks like coffee grounds. You pass maroon or very bloody stools. Call your healthcare provider or seek immediate medical attention if: You have trouble swallowing. You have belly pain. Your stools are black or tarlike or have streaks of blood. You are sick to your stomach or cannot keep fluids down. Watch closely for changes in your health, and be sure to contact your doctor IF Your throat still hurts after a day or two You do not get better as expected. Tuesday-Tuesday Same Day Endo [phone] 7a-8p Otherwise contact [phone] and ask to speak to the statistics intern manufacturing operations manager Follow-up care is a troncoso part of your treatment and safety. Be sure to make and go to all appointments, and call your doctor if you are having problems. Instructions have been reviewed and patient expresses understanding documented in this encounter Medications at Time of Discharge Medication Sig Dispensed Refills Start Date End Date citalopram (CELEXA) 40 mg Tablet Take 40 [...] 05/28/2013 DILTiazem (CARDIZEM) 30 mg tablet 04/12/2013 levothyroxine (SYNTHROID) 75 mcg Tablet Take 75 mcg by mouth daily. 06/24/2021 citalopram (CELEXA) 20 mg Tablet Take 20 mg by mouth nightly. 02/07/2023 montelukast (SINGULAIR) 10 mg Tablet Take 10 mg by mouth nightly. 04/25/2020 loratadine (CLARITIN) 10 mg Tablet Take 10 mg by mouth daily. 04/25/2020 traZODone (DESYREL) 100 mg Tablet Take 200 mg by mouth nightly. 06/20/2023 fluticasone furoate-vilanterol 100-25 mcg/dose Disk with Device Inhale into the lungs daily. 04/25/2020 ERYTHROMYCIN BASE (ERYTHROMYCIN ORAL) Take by mouth. 2021 albuterol (PROVENTIL HFA;VENTOLIN HFA) 90 mcg/actuation inhaler Inhale 2 puffs into the lungs every 4 hours as needed. Use with spacer 05/26/2020 tiotropium (SPIRIVA WITH HANDIHALER) 18 mcg inhalation capsule 01/01/2009 1 documented as of this encounter H&P Notes * Sammie Johnson MD - 09/25/2018 4:03 PM EDT Gastroenterology and Hepatology Pre-Procedure History and Physical Exam Procedure: EGD: Indication: Pt with years of acid reflux symptoms on Omeprazole 40am, 20pm with ok control of reflux symptoms. Had EGD in July for these symptoms, normal mucosa with biopsies done of GE junction, stomach and duodenum. Biopsies of stomach showed intestinal metaplasia. Pt referred for EGD to follow up intestinal metaplasia of stomach. Symptoms are about the same. Patient Active Problem List Diagnosis Code ??? Pruritus L29.9 EXAM: HEENT: Airway examined, oropharynx clear Mallampati Score: II (soft palate, uvula, fauces visible) LUNGS: Clear to auscultation HEART: Regular rate and rhythm, normal S1, S2 ABDOMEN: Normal bowel sounds, soft, non tender, non distended, A/P Proceed with the planned endoscopic procedure. ASA 3 - Patient with moderate systemic disease with functional limitations Sedation Plan: moderate (conscious sedation) Risks and benefits of the procedure explained to the patient. Consent signed. documented in this encounter Plan of Treatment Upcoming Encounters Date Type Department Care Team (Late st Contact Info) Description 08/27/2024 4:00 PM EDT Office Visit [place] [address] Kira Thayer MD [facility] [place] [address] documented as of this encounter Procedures Procedure Name Priority Date/Time Associated Diagnosis Comments SPECIMEN TO PATHOLOGY Routine 09/25/2018 4:21 PM EDT SPECIMEN TO PATHOLOGY Routine 09/25/2018 4:21 PM EDT SURGICAL PATHOLOGY REPORT Routine 09/25/2018 4:08 PM EDT UPPER GASTROINTESTINAL ENDOSCOPY,WITH BIOPSY SINGLE OR MULTIPLE (WRVU 2.39) 09/25/2018 3:58 PM EDT intestinal metaplasia proclear EGD, UPPER GI ENDOSCOPY (WRVU 2.09) 09/25/2018 3:58 PM EDT intestinal metaplasia proclear UPPER GI ENDOSCOPY Routine 09/25/2018 3: 53 PM EDT documented in this encounter Results * Specimen to Pathology (09/25/2018 4:21 PM EDT) AP Specimen 09/25/2018 4:21 PM EDT 09/25/2018 4:21 PM EDT Narrative [facility] - 09/25/2018 4:21 PM EDT Specimen requisition ordered. ??Separate Pathology report to follow Sammie Johnson MD PATHOLOGY/CYTOLOGY O EDUARDO Performing Organization Address [facility] [place] [address] * Specimen to Pathology (09/25/2018 4:21 PM EDT) AP Specimen 09/25/2018 4:21 PM EDT 09/25/2018 4:21 PM EDT Narrative [facility] - 09/25/2018 4:21 PM EDT Specimen requisition ordered. ??Separate Pathology report to follow Sammie Johnson MD PATHOLOGY/CYTOLOGY O EDUARDO Performing Organization Address [facility] [place] [address] * Surgical Pathology Report (09/25/2018 4:08 PM EDT) Final Diagnosis [id number] ? Location: 4T; EA08; A The signing pathologist has (i) examined the relevant preparation(s) for the specimen(s) and (ii) rendered or confirmed the diagnosis(es). . ?Surgical Pathology DIAGNOSIS A - Gastric antrum, biopsy: Gastric antral gland mucosa with nonspecific reactive gastropathy. Gastric fundic mucosa within normal limits. No H. pylori-like microorganism is seen. B - Gastric fundus, biopsy: Gastric fundic gland mucosa with nonspecific parietal cell alterations of the type sometimes seen in hypergastrinemic conditions or in patients on PPI therapy. Electronically signed by: ??Mabel Givens MD Verified: ??09/29/2018 ?Pathologist Performed at: ??-[facility] [place], [place], [place] CLINICAL INFORMATION Specimen Submitted: A - Gastric antrum bx B - Gastriuc fundus bx Clinical History and Diagnosis: 48-year-old female with history of GERD, previous biopsy showed intestinal metaplasia of stomach SPECIMEN PROCESSING A - Labeled/Fixative: Gastric antrum BX, formalin. Quantity/Size: Four, ranging from 0.3-0.6 cm. Tissue Description: Soft, pink tissues. Sections/Processing : Submitted en toto ??in 1 cassette labeled A1. B - Labeled/Fixative: Gastric fundus BX, formalin. Quantity/Size: Three, ranging from 0.3-0.5 cm. Tissue Description: Soft, pink tissues. Sections/Processing : Submitted en toto ??in 1 cassette labeled B1. ??sns 09/29/2018 10:31 AM EDT [facility] GI Biopsy 09/25/2018 4:08 PM EDT 09/25/2018 4:08 PM EDT GI Biopsy 09/25/2018 4:08 PM EDT 09/25/2018 4:08 PM EDT Sammie Johnson MD PATHOLOGY/CYTOLOGY O KATHERINEERAELIUD [facility] [place] [address] * UPPER GI ENDOSCOPY (09/25/2018 3:53 PM EDT) UPPER GI ENDOSCOPY [facility] Endoscopy Procedure Date: 09/25/2018 3:53 PM ? Patient Name: Jessie Sanchez ? Date of : 1970 ? Age: 48 ? Order #: [id number] ? Instrument Name: [id number] ? Procedure: ? Upper GI endoscopy Indications: ? long standing reflux treated with ? PPI, recent EGD showing intestinal ? metaplasia on gastric biopsies. ? Symptoms of bloating. Providers: ? Sammie Johnson MD, Neli Bautista RN, ? Kervin Lopez MD: ?Ehsan Mathis Medicines: ? Midazolam 2.5 mg IV, Fentanyl 125 ? micrograms IV Complications: ? No immediate complications. Procedure: ? Pre-Anesthesia Assessment: ? - Prior to the procedure, a History ? and Physical was performed, and ? patient medications, allergies and ? sensitivities were reviewed. The ? patient's tolerance of previous ? anesthesia was reviewed. ? - The risks and benefits of the ? procedure and the sedation options ? and risks were discussed with the ? patient. All questions were answered ? and informed consent was obtained. ? The procedure, indications, benefits, ? risks and alternatives were explained ? to the patient. Specifically ? discussed were potential ? complications including, but not ? limited to, bleeding, perforation, ? infection, missing a cancer, and ? adverse medication reactions. The ? Endoscope was introduced through the ? mouth, and advanced to the third part ? of duodenum. The patient tolerated ? the procedure well. The upper GI ? endoscopy was accomplished without ? difficulty. The patient tolerated the ? procedure well. ? Findings: ? The examined esophagus was normal. ? The entire examined stomach was normal. Biopsies were ? taken with a cold forceps for histology. ? The examined duodenum was normal. ? Moderate Sedation: ? I was present during the intraservice time as ? documented by the sedation RN. Impression: ?- Normal esophagus. ? - Normal stomach. Biopsied. ? - Normal examined duodenum. Recommendation: ?- Await pathology results. ? Attending Participation: ? I personally performed the entire procedure. ? I was present during the intraservice time as ? documented by the sedation RN. ? Sammie Johnson MD 09/25/2018 4:22:30 PM This report has been signed electronically. Number of Addenda: 0 Note Initiated On: 09/25/2018 3:53 PM PROVATION 09/25/2018 3:53 PM EDT [facility] [employer]OVATION documented in this encounter Visit Diagnoses Not on filedocumented in this encounter Active and Recently Administered Medications Times are shown in EDT. PRN Medication Order 09/23/2018 09/24/2018 09/25/2018 fentaNYL 50 mcg/mL multi-dose injection (CANCELED) ONCE PRN, Starting on Tue09/25/18 at 1605, Until Tue09/25/18 at 1900, Intra-Operative (Intra-Procedure), Routine 1605 (Given - Provid er: Neli Bautista RN)1609 (Given - Provider: Neli Bautisat RN) midazolam (PF) (VERSED) multi-dose injection (CANCELED) ONCE PRN, Starting on Tue09/25/18 at 1605, Until Tue09/25/18 at 1900, Intra-Operative (Intra-Procedure), Routine 1605 (Given - Provid er: Neli Bautista RN)1609 (Given - Provider: Neli Bautista RN) documented in this encounter Care Teams Tool And Die Maker Relationship Specialty Start Date End Date Gladis Jones APRN PCP - General Family Medicine 09/25/18 03/20/19 documented as of this encounter
--- OUTSIDE RECORDS SUMMARY | 2024-03-29 08:15 | XMS_ITS | Encounter Summary ---
[place] [address] Care Team Providers Care Finishing Manager Name Role Phone Belkys Bundy Primary Care Provider +1- [phone] Encounter Details Date Type Department Care Team (Latest Contact Info) Description 05/26/2020 11:54 AM EST - 05/26/2020 11:59 PM EST Hospital [place] [address] Chronic obstructive pulmonary disease, unspecified COPD type Discharge Disposition: Home Social History Tobacco Use [...] End Date inhalational spacing device (Ricci Aerosol K[place]ilvak Enhancer) Spacer .MEDSUPPLY 02/01/2020 linaCLOtide (Linzess) 72 mcg Capsule Take 72 mcg by mouth as needed. Take 30 minutes before meal 05/09/2020 fluticasone propionate (FLONASE) 50 mcg/actuation Ethridge, Suspension 02/01/2020 atorvastatin (Lipitor) 20 mg Tablet [...] 05/28/2013 DILTiazem (CARDIZEM) 30 mg tablet 04/12/2013 montelukast (Singulair) 10 mg Tablet Daily 10/04/2019 07/16/2020 nicotine (NICODERM CQ) 21 mg/24 hr Patch 24 hr APPLY ONE PATCH TO THE SKIN EVERY DAY 05/13/2020 10/18/2022 ondansetron (Zofran) 4 mg Tablet TAKE 1 TABLET BY MOUTH EVERY 8 HOURS IF NEEDED FOR NAUSEA AND VOMITING 01/14/2020 06/03/2021 predniSONE (Deltasone) 20 mg Tablet TAKE 1 TABLET BY MOUTH DAILY FOR 5 DAYS THEN ONE HALF DAILY FOR 5 DAYS THEN STOP 04/15/2020 06/25/2020 fluticasone propionate (FLONASE) 50 mcg/actuation Ethridge, Suspension by Nasal route. 02/01/2020 09/30/2020 albuteroL 90 mcg/actuation HFA Aerosol InhalerIndications:Money Market Clerk tomer obstructive pulmonary disease, unspecified COPD type Inhale 2 puffs into the lungs every 4 hours as needed for Wheezing or Shortness of Breath. Use with spacer 2 Inhaler 5 05/26/2020 12/23/2020 temaojlmmzi-johuspnnn-k ilanter (Trelegy Ellipta) 200-62.5-25 mcg Disk with Device Inhale 1 Inhalation into the lungs daily. 28 each 11 04/25/2020 04/17/2021 morphine IR (MSIR) 15 mg [...] 4:00 PM EDT [place] [address] Kira Thayer MD [facility] [place] [address] documented as of this encounter Procedures Procedure Name Priority Date/Time Associated Diagnosis Comments COMMON PULMONARY FUNCTION TEST Routine 05/26/2020 12:17 PM EST Chronic obstructive pulmonary disease, unspecified COPD type documented in this encounter Results * Pulmonary Function Testing (05/26/2020 12:17 PM EST) FVC Actual Pre-BD 1.82 L COMPAS PFT FVC Pre-BD % of Predicted 50 % COMPAS PFT FVC Predicted 3.61 L COMPAS PFT FVC Pre-BD Z-Score -3.89 COMPAS PFT FVC Lower Limits of Normal 2.83 L COMPAS PFT FEV1 Actual Pre-BD 0.55 L COMPAS PFT FEV1 Pre-BD % of Predicted 19 % COMPAS PFT FEV1 Predicted 2.88 L COMPAS PFT FEV1 Pre-BD Z-Score -5.64 COMPAS PFT FEV1 Lower Limits of Normal 2.25 L COMPAS PFT FEV1 / FVC Actual Pre-BD 30 % COMPAS PFT FEV1/FVC Pre-BD Z-Score -5.02 COMPAS PFT FEV1 / FVC LLN 69 % COMPAS PFT CAB59-08 Actual Pre-BD 0.21 L/s COMPAS PFT [id number] Pre-BD % of Predicted 7 % COMPAS PFT [id number] Predicted 2.82 L/s COMPAS PFT [id number] Pre-BD Z-Score -4.72 COMPAS PFT DLCO Hb Actual Pre-BD 7.22 mL/min/mmHg COMPAS PFT DLCO Hb Pre-BD % of Predicted 33 % COMPAS PFT DLCO Hb Pre-BD Z-Score -7.89 COMPAS PFT DLCO Hb Predicted 21.96 mL/min/mmHg COMPAS PFT DLCO UNC ACT PRE-BD 7.22 mL/min/mmHg COMPAS PFT DLCO UNC PRE-BD % of PRED 33 % COMPAS PFT DLCO UNC PRE-BD Z-SCORE -7.89 % COMPAS PFT DLCO UNC Predicted 21.96 mL/min/mmHg COMPAS PFT DLCO/VA Actual Pre-BD 1.85 mL/min/mmHg /L COMPAS PFT DLCO/VA Pre-BD % of Predicted 43 % COMPAS PFT DLCO/VA Pre-BD Z-Score -4.95 COMPAS PFT DLCO/VA Predicted 4.32 mL/min/mmHg /L COMPAS PFT FRC Predicted 2.76 L COMPAS PFT FRC Actual Pre-BD 6.09 L COMPAS PFT FRC Pre-BD % of Predicted 221 % COMPAS PFT FRC Pre-BD Z-Score 6.66 COMPAS PFT TLC Predicted 5.14 L COMPAS PFT TLC Actual Pre-BD 7.31 L COMPAS PFT TLC Pre-BD % of Predicted 142 % COMPAS PFT TLC Pre-BD Z-Score 3.62 COMPAS PFT RV Predicted 1.79 L COMPAS PFT RV Actual Pre-BD 5.47 L COMPAS PFT RV Pre-BD % of Predicted 306 % COMPAS PFT RV Pre-BD Z-Score 10.51 COMPAS PFT RVoTLC Predicted 36 % COMPAS PFT RVoTLC Actual Pre-BD 75 % COMPAS PFT RVoTLC Pre-BD % of Predicted 208 % COMPAS PFT RVoTLC Pre-BD Z-Score 6.69 COMPAS PFT VC Predicted 3.61 L COMPAS PFT VC Actual Pre-BD 1.84 L COMPAS PFT VC Pre-BD % of Predicted 51 % COMPAS PFT VC Pre-BD Z-Score -3.64 COMPAS PFT Narrative COMPAS PFT - 05/26/2020 12:17 PM EST SUMMARY: FEV1, FVC and FEV1/VC are reduced. TLC, FRC and RV are increased. Diffusion capacity not adjusted for hemoglobin is reduced. IMPRESSION: FEV1/VC and VC are reduced, and TLC is not reduced indicating obstruction. The observed obstructive ventilatory defect is very severe (FEV1 < 35%). Severe reduction in diffusing capacity (DLCO < 40%). The increased TLC and FRC are consistent with hyperinflation. The increased RV and RV/TLC ratio are consistent with air trapping. The combination of obstruction with a decreased diffusing capacity and lung volume findings suggest emphysema. Procedure Note Scott Bradley MD - 05/27/2020 SUMMARY: FEV1, FVC and FEV1/VC are reduced. TLC, FRC and RV are increased.Diffusion capacity not adjusted for hemoglobin is reduced. IMPRESSION: FEV1/VC and VC arereduced, and TLC is not reduced indicating obstruction. The observed obstructive ventilatorydefect is very severe (FEV1 < 35%). Severe reduction in diffusing capacity (DLCO < 40%). Theincreased TLC and FRC are consistent with hyperinflation. The increased RV and RV/TLC ratio areconsistent with air trapping. The combination of obstruction with a decreased diffusingcapacity and lung volume findings suggest emphysema. Kira Thayer MD PFT ORDERABLES COMPAS PFT documented in this encounter Visit Diagnoses Diagnosis Chronic obstructive pulmonary disease, unspecified COPD type documented in this encounter Care Teams Finishing Manager Relationship Specialty Start Date End Date Belkys Bundy DO [address] [place] [address] PCP - General Family Medicine 03/21/19 documented as of this encounter
--- OUTSIDE RECORDS SUMMARY | 2024-03-29 08:15 | XMS_ITS | Encounter Summary ---
Author Organization [facility] [place] [address] Care Team Providers Care Straw Hat Brim Raiser Operator Name Role Phone Belkys Bundy DO Primary Care Provider +1- [phone] Encounter Details Date Type Department Care Team (Late st Contact Info) Description 05/26/2020 [place] [address] Juanis Osullivan, RT Social History Tobacco Use [...] 4:00 PM EDT [place] [address] Kira Thayer MD [facility] [place] [address] documented as of this encounter Visit Diagnoses Not on filedocumented in this encounter Care Teams Straw Hat Brim Raiser Operator Relationship Specialty Start Date End Date Belyks Bundy DO [address] [place] [address] PCP - General Family Medicine 03/21/19 documented as of this encounter
--- OUTSIDE RECORDS SUMMARY | 2024-03-29 08:15 | XMS_ITS | Encounter Summary ---
Author Organization [facility] [place] [address] Care Team Providers Care Pet Stylist Name Role Phone Belkys Bundy Primary Care Provider +1- [phone] Encounter Details Date Type Department Care Team (Late st Contact Info) Description 06/04/2020 Tele[place] [address] Juanis Osullivan RT Social History Tobacco Use [...] Telephone Encounter - Juanis Osullivan RT - 06/04/2020 5:31 PM EST Called Jessie Sanchez at home in follow up to her message, she wasn't able to connect to telehealth pulmonary rehab today. Reviewed email contact information: [email or web address]. -she will also go into [facility] online and activate her my account for future pulm rehab sessions. She understood that DVT was ruled out by ultrasound. documented in this encounter Plan of Treatment Upcoming Encounters Date Type Department Care Team (Late st Contact Info) Description 08/27/2024 4:00 PM EDT Office [place] [address] Kira Thayer MD [facility] [address] [place] [address] documented as of this encounter Visit Diagnoses Not on filedocumented in this encounter Care Teams Pet Stylist Relationship Specialty Start Date End Date Belkys Bundy DO [address] [place] [address] PCP - General Family Medicine 03/21/19 documented as of this encounter
--- OUTSIDE RECORDS SUMMARY | 2024-03-29 08:15 | XMS_ITS | Encounter Summary ---
Author Organization [facility] [place] [address] Care Team Providers Care Plywood Stock Grader Name Role Phone Belkys Bundy Primary Care Provider +1- [phone] Encounter Details Date Type Department Care Team (Late st Contact Info) Description 07/23/2020 2:00 PM EDT TH Visit (TeleHealth) [place] [address] Juanis Osullivan, RT COPD, very severe Social [...] Progress Notes * Juanis Osullivan, RT - 07/23/2020 2:00 PM EDT Pulmonary Rehabilitation Tele health Visit for Jessie Sanchez This visit replaces an in person visit due to the COVID-19 pandemic. Patient verbally consents to this visit and understands that this visit may be billed, similar to a pulmonary rehabilitation clinic visit. Date of Encounter: 07/23/20 Supervising Physician: Scott Bradley MD Exercise session #: 4 Comments: This was Jessie's first day back to pulmonary rehabilitation since her respiratory exacerbation. She utilizes O2 at 3 lpm for exercise with SpO2 maintaining at 95% or greater throughout exercise and dyspnea at moderate to somewhat hard. She utilized pacing and pursed lip breathing with prncues. Pulmonary Rehabilitation Exercise: please see Jethro Knapp's PT note Pulmonary Rehabilitation Education Topic: Normal Lungs and types of Lung disorders part 2 Presenter: Juanis Osullivan Jessie Sanchez participated in discussion Juanis Osullivan, CHANNEL MARKETING SPECIALIST,NURSING PROGRAM CHAIR documented in this encounter Miscellaneous Notes * Treatment - Therapy - Jethro Knapp PT - 07/23/2020 2:00 PM EDT Pulmonary Rehabilitation Webex Exercise Flowsheet 07/23/2020 O2 3 L pulse Resting SpO2/HR 98 spo27 68 HR Warm up SpO2/HR 95 spo2 89 HR U/E SpO2 W/ blue theraband 97spo2 80 HR Chest Press 2x15 ea Tricep ext 2x25 ea band doubled up External rotation 2x25 RPD/RPE 3-4 L/E SpO2/HR wt/dynaband 97 spo2 80 HR Mini Squat 2x10 Heel raise 2 sets of 10 bilateral then 2 sets of 5 unilateral each leg Toe Raise 2x30 RPD.RPE 3 Recovery SpO2/HR 97 spo2 80 HR Comments: Jessie did no do any exercise since her last session since she was still not feeling well but has a goal to increase exercise starting with 5-15 minutes on the olyptical. Warm up consisting of marching, side stepping, and ladder climbs. Balance exercises consisting of Single leg stance and tandem walking, sidestepping. Cool down with stretching of gastroc, hip flexors, and triceps Home exercise program: Aerobic goals met: yes/no New aerobic goal for the week: use olyptical for 5-15 minutes a few days a week. P: Continue Pulmonary rehab Web ex with education 1x/week and strengthening, balance activity 2x/week as a group and 1-2 x independently Jethro Knapp PT, DPT documented in this encounter Plan of Treatment Upcoming Encounters Date Type Department Care Team (Late st Contact Info) Description 08/27/2024 4:00 PM EDT Office [place] [address] Kira Thayer MD [facility] [place] [address] documented as of this encounter Visit Diagnoses Diagnosis COPD, very severe Chronic airway obstruction, not elsewhere classified documented in this encounter Care Teams Plywood Stock Grader Relationship Specialty Start Date End Date Belkys Bundy DO [address] [place] [address] PCP - General Family Medicine 03/21/19 documented as of this encounter
--- OUTSIDE RECORDS SUMMARY | 2024-03-29 08:15 | XMS_ITS | Encounter Summary ---
Author Organization [facility] [place] [address] Care Team Providers Care Kick Plate Installer Name Role Phone Belkys Bundy DO Primary Care Provider +1- [phone] Encounter Details Date Type Department Care Team (Late st Contact Info) Description 05/28/2020 Notes Only Pulmonology at [facility] [place] [address] Juanis Osullivan RT Social History Tobacco Use [...] Progress Notes * Juanis Osullivan RT - 05/28/2020 5:13 PM EST Pulmonary rehabilitation Pre-screening Tools continued for Jessie Sanchez: [facility] Respiratory Questionnaire: Symptoms: 85.11 Activities: 81.24 Impact: 46.25 Total: 63.00 [facility] Respiratory Questionnaire-reference scores: Scores range from 0 to 100, with higher scores indicating more limitations. documented in this encounter Plan of Treatment Upcoming Encounters Date Type Department Care Team (Late st Contact Info) Description 08/27/2024 4:00 PM EDT Office [place] [address] Kira Thayer MD [facility] [place] [address] documented as of this encounter Visit Diagnoses Not on filedocumented in this encounter Care Teams Kick Plate Installer Relationship Specialty Start Date End Date Belkys Bundy DO [address] [place] [address] PCP - General Family Medicine 03/21/19 documented as of this encounter
--- OUTSIDE RECORDS SUMMARY | 2024-03-29 08:15 | XMS_ITS | Encounter Summary ---
Author Organization [facility] Address [facility] [place] [address] Care Team Providers Care Armature Rewinder Name Role Phone Belkys Bundy Primary Care Provider +1- [phone] Reason for Referral * Physical Therapy (Routine) - Closed Specialty Diagnoses / Procedures Referred By Rossy levine Referred To Contact Physical Therapy Diagnoses COPD, very severe Kervin Steiner Jr., MD [facility] [place] [address] Jennifer Morales, PT [facility] PHYSICAL MEDICINE & [place] [address] Referral ID Status Reason Start Date Expiration Date V isits Requested Visits Authorized [id number] Closed Evaluate and Treat 06/12/2020 06/12/2021 100 100 Encounter Details Date Type Department Care Team (Late st Contact Info) Description 06/11/2020 Orders [place] [address] Kervin Steiner Jr., MD [facility] [place] [address] COPD, very severe Social History Tobacco Use [...] 4:00 PM EDT Office [place] [address] Kira Thayer MD [facility] [place] [address] Scheduled Referrals Name Type Priority Associated Diagnoses Orde r Schedule Referral to Physical Therapy Outpatient Referral Routine COPD, very severe Ordered: 06/12/2020 documented as of this encounter Visit Diagnoses Diagnosis COPD, very severe Chronic airway obstruction, not elsewhere classified documented in this encounter Care Teams Armature Rewinder Relationship Specialty Start Date End Date Belkys Bundy DO [address] [place] [address] PCP - General Family Medicine 03/21/19 documented as of this encounter
--- OUTSIDE RECORDS SUMMARY | 2024-03-29 08:15 | XMS_ITS | Encounter Summary ---
Author Organization [facility] [place] [address] Care Team Providers Care Nutritionists Name Role Phone Niharika Belkys Virginie MYRICK Primary Care Provider +1- [phone] Encounter Details Date Type Department Care Team (Late st Contact Info) Description 07/18/2020 [place] [address] Juanis Osullivan, RT Social History Tobacco Use [...] Telephone Encounter - Juanis Osullivan RT - 07/18/2020 3:59 PM EDT Called Jessie Sanchez at home to follow up on respiratory symptoms, O2: -she noted this morning after walking to and from the bathroom on room air her SpO2=88%. She is back wearing the O2 continuously at 2.5 lpm with resting SpO2=92%. - she currently has a home oxygen concentrator and portable oxygen concentrator with no prefilled oxygen tanks to verify accuracy of O2 being delivered. She denies issues with her current oxygen devices. - she noted currently has a severe migraine, she just took Ibuprofen. - she denies fever, but notes sweats alternating with feeling cold. She took a cool bath and noted that she was freezing- this is unusual for her. -sputum: white with prn yellow - audible wheezing noted during the call Current respiratory regimen: Respiratory regimen: -Albuterol HFA 90 mcg 2 puffs 2-4 times per day - Duoneb 1 times per day, encouraged her to take this every 4-6 hours as needed - Trelegy once a day -Zyrtec once a day - Singulair- 10 mg per day -Prednisone 40 mg in the morning after breakfast - Azithromycin 250 mg per day Reviewed if increased respiratory symptoms, desaturations on her supplemental O2 at rest to follow up with immediate medical attention. Reviewed oncall refinery operator visbreaking [place] [facility] [place] Will forward to Dr. Thayer to review. documented in this encounter Plan of Treatment Upcoming Encounters Date Type Department Care Team (Late st Contact Info) Description 08/27/2024 4:00 PM EDT Office [place] [address] Kira Thayer MD [facility] [place] [address] documented as of this encounter Visit Diagnoses Not on filedocumented in this encounter Care Teams Nutritionists Relationship Specialty Start Date End Date Belkys Bundy DO [address] [place] [address] PCP - General Family Medicine 03/21/19 documented as of this encounter
--- OUTSIDE RECORDS SUMMARY | 2024-03-29 08:15 | XMS_ITS | Encounter Summary ---
Author Organization [facility] [place] [address] Care Team Providers Care Industrial Engineering Professor Name Role Phone Niharika Belkys Virginie MYRICK Primary Care Provider +1- [phone] Encounter Details Date Type Department Care Team (Late st Contact Info) Description 08/08/2020 [place] [address] Juanis Osullivan, RT Social History Tobacco Use [...] Encounter - Juanis Osullivan RT - 08/08/2020 12:55 PM EDT Jessie Daniel called : -requesting portable oxygen concentrator order be sent to [facility]. The unit she had received from her father is broken. She has been utilizing her portable oxygen concentrator at 3 pulse dose. She is unsure how long she has had oxygen from [facility]. Reviewed the Medicare O2 DME 5 year benefitcycle. Jessie verbalized understanding. She noted that if she is near/at the start of a new 5 year cycle she would prefer to change DME O2 vendors if possible. Will follow up on her Medicare O2 cycle status. -Pulmonary rehabilitation: She is planning to resume telehealth pulmonary rehab this afternoon. Liu missed the session on 08/06 secondary to symptoms post her 2nd covid-19 vaccine but now feeling much better. She noted that she will be away the last week in August secondary to a planned trip with her sister Mercedes Rico. documented in this encounter Plan of Treatment Upcoming Encounters Date Type Department Care Team (Late st Contact Info) Description 08/27/2024 4:00 PM EDT [place] [address] Kira Thayer MD [facility] [place] [address] documented as of this encounter Visit Diagnoses Not on filedocumented in this encounter Care Teams Industrial Engineering Professor Relationship Specialty Start Date End Date Belkys Bundy DO [address] [place] [address] PCP - General Family Medicine 03/21/19 documented as of this encounter
--- OUTSIDE RECORDS SUMMARY | 2024-03-29 08:15 | XMS_ITS | Encounter Summary ---
[place] [address] Care Team Providers Care Compensation And Benefits Administrator Name Role Phone Belkys Bundy Primary Care Provider +1- [phone] Reason for Visit * Reason Onset Date Comments Request For Record 05/14/2020 pulmonary rec ords and imaging. Encounter Details Date Type Department Care Team (Late st Contact Info) Description 05/14/2020 Telephone [place] [address] Emily Starr RN Request For Record (pulmonary records and imaging.) Social History Tobacco Use Types Packs/Day Years [...] Telephone Encounter - Emily Starr RN - 05/14/2020 1:51 PM EST Faxed out request for any medical records or images from patient's time at [facility], to [facility] per Dr. Thayer. Fax submission confirmation time stamped for 05/14/2020 @ 9962. 1 page. documented in this encounter Plan of Treatment Upcoming Encounters Date Type Department Care Team (Late st Contact Info) Description 08/27/2024 4:00 PM EDT Office [place] [address] Kira Thayer MD [facility] [place] [address] documented as of this encounter Visit Diagnoses Not on filedocumented in this encounter Care Teams Compensation And Benefits Administrator Relationship Specialty Start Date End Date Belkys Bundy DO [address] [place] [address] PCP - General Family Medicine 03/21/19 documented as of this encounter
--- OUTSIDE RECORDS SUMMARY | 2024-03-29 08:15 | XMS_ITS | Encounter Summary ---
Author Organization [facility] [place] [address] Care Team Providers Care Multi Purpose Machine Operator Name Role Phone Belkys Bundy Primary Care Provider +1- [phone] Encounter Details Date Type Department Care Team (Late st Contact Info) Description 06/11/2020 2:00 PM EST TH Visit (TeleHealth) [place] [address] Juanis Osullivan RT COPD, very severe Social History Tobacco [...] Progress Notes * Juanis Osullivan RT - 06/11/2020 2:00 PM EST Pulmonary Rehabilitation Telehealth visit for Jessie Sanchez Resting SpO2 on 2 lpm O2= 91% HR: 119 Issue with the group Zoom link and session was closed abruptly. No exercise/education today for Jessie Sanchez documented in this encounter Plan of Treatment Upcoming Encounters Date Type Department Care Team (Late st Contact Info) Description 08/27/2024 4:00 PM EDT [place] [address] Kira Thayer MD [facility] [place] [address] documented as of this encounter Visit Diagnoses Diagnosis COPD, very severe Chronic airway obstruction, not elsewhere classified documented in this encounter Care Teams Multi Purpose Machine Operator Relationship Specialty Start Date End Date Belkys Bundy DO [address] [place] [address] PCP - General Family Medicine 03/21/19 documented as of this encounter
--- OUTSIDE RECORDS SUMMARY | 2024-03-29 08:15 | XMS_ITS | Encounter Summary ---
Author Organization [facility] [place] [address] Care Team Providers Care Material Requirements Planning Manager Name Role Phone Belkys Bundy DO Primary Care Provider +1- [phone] Encounter Details Date Type Department Care Team (Late st Contact Info) Description 06/30/2020 Telephone [place] [address] Millicent Valles Social History Tobacco Use Types [...] 4:00 PM EDT Office Visit [place] [address] Kira Thayer MD [facility] [place] [address] documented as of this encounter Visit Diagnoses Not on filedocumented in this encounter Care Teams Material Requirements Planning Manager Relationship Specialty Start Date End Date Belkys Bundy DO [address] [place] [address] PCP - General Family Medicine 03/21/19 documented as of this encounter
--- OUTSIDE RECORDS SUMMARY | 2024-03-29 08:15 | XMS_ITS | Encounter Summary ---
[place] [address] Care Team Providers Care House Builder Name Role Phone Belkys Bundy Primary Care Provider +1- [phone] Encounter Details Date Type Department Care Team (Late st Contact Info) Description 06/13/2020 2:00 PM EST TH Visit (TeleHealth) [place] [address] Juanis Osullivan, RT COPD, very severe Social [...] Progress Notes * Juanis Osullivan, RT - 06/13/2020 2:00 PM EST Pulmonary Rehabilitation Tele health Visit for Jessie Sanchez This visit replaces an in person visit due to the COVID-19 pandemic. Patient verbally consents to this visit and understands that this visit may be billed, similar to a pulmonary rehabilitation clinic visit. Date of Encounter: 06/13/20 Supervising Physician: Kervin Michaels MD Session # 1 Comments: Jessie Sanchez participated in telehealth pulmonary rehabilitation session utilizing O2 at 2lpm. She joined the exercise session after the warm up portion was complete due to technical issueswith connecting virtually. Pulmonary Rehabilitation Exercise: please see Jennifer Morales's PT note Juanis Osullivan, MIXER WET POUR,LIQUID FLOOR AND WALL APPLIER documented in this encounter Miscellaneous Notes * Treatment - Therapy - Jennifer Morales PT - 06/13/2020 2:00 PM EST Pulmonary Rehabilitation Webex Exercise Flowsheet 06/13/20 O2 3L Resting SpO2/HR 90% 74 Warm up SpO2/HR 92% 87 U/E SpO2 Wt/dynaband 96% 84 biceps 2x10 Blue band pt had triceps Upright row Pull aparts Chest press 2x10 RPD/RPE L/E SpO2/HR wt/dynaband 94% 91 Sit><stand 15 Heel raises/toe raises 2x10 Sitting knee extension Sitting hip flexion St hip ext 2x10 St knee flex 2 x10 RPD.RPE Recovery SpO2/HR 96% 82 Warm up balance exercises( a little late starting because of tech so no marching) -anterior and posterior ankle sway, anterior stepping strategy and standing head turns and cool down with stretching (hamstrings, chest stretch and gastroc stretches.. Comments: tolerated session well. Pt had her own resistance band today . I've also send her a yellow and a red t-band in the mail. Will determine where she starts with eval. Home exercise program: to be determined Aerobic goals met: yes/no New aerobic goal for the week: to be determined P: Continue Pulmonary rehab Web ex with education 1x/week and strengthening, balance activity 2 x/week as a group and 1-2 x independently 60 min there ex Jennifer Morales PT documented in this encounter Plan of Treatment Upcoming Encounters Date Type Department Care Team (Late st Contact Info) Description 08/27/2024 4:00 PM EDT [place] [phone] Kira Thayer MD [facility] [place] [address] documented as of this encounter Visit Diagnoses Diagnosis COPD, very severe Chronic airway obstruction, not elsewhere classified documented in this encounter Care Teams House Builder Relationship Specialty Start Date End Date Belkys Bundy DO [address] [place] [address] PCP - General Family Medicine 03/21/19 documented as of this encounter
--- OUTSIDE RECORDS SUMMARY | 2024-03-29 08:15 | XMS_ITS | Encounter Summary ---
[place] [address] Care Team Providers Care Yard Clerk Name Role Phone Belkys Bundy Primary Care Provider +1- [phone] Encounter Details Date Type Department Care Team (Latest Contact Info) Description 07/30/2020 2:00 PM EDT TH Visit (TeleHealth) [place] [address] Juanis Osullivan, RT Chronic obstructive pulmonary disease, unspecified COPD type [...] Progress Notes * Sindy Brewer, RT - 07/30/2020 2:00 PM EDT Pulmonary Rehabilitation Tele health Visit for Jessie Sanchez This visit replaces an in person visit due to the COVID-19 pandemic. Patient verbally consents to this visit and understands that this visit may be billed, similar to a pulmonary rehabilitation clinic visit. Date of Encounter: 07/31/20 Supervising Physician: Kervin Steiner MD Exercise session #: 6 Comments: Oxygen at 3 lpm for exercise. Resting SpO2 on 3 lpm O2 = 95% and she maintained her SpO2 at 93% or greater throughout exercise with dyspnea at moderate or less. Pulmonary Rehabilitation Exercise: Please see Jethro Knapp PT note. Sindy Brewer RT documented in this encounter Miscellaneous Notes * Treatment - Therapy - Jethro Knapp PT - 07/30/2020 2:00 PM EDT Pulmonary Rehabilitation Webex Exercise Flowsheet 07/30/2020 O2 3 Resting SpO2/HR 95 spo2 78 Warm up SpO2/HR 93 spo2 102 HR U/E SpO2 and HR With black theraband 98 spo2 70 HR 86 spo2 89 HR tricep 2x15 Doubled up seated row 2x25 Internal rotation 1x25, 1x20 RPD/RPE 3.5 L/E SpO2/HR 93spo2 95 HR Sit to Stand 1x12,1x25 Heel raises 2 x10 Toe raises 1x30, 1x9 RPD.RPE 3 Recovery SpO2/HR 96spo2 91 HR Warm up consisting of marching, mummy kicks, and ladder climbs. Exercise as above then Cool down with stretching of gastroc, tricep, and chest head grease maker. Comments: Went for a walk when the weather is nice. Home exercise program: olyptical Aerobic goals met: [...] 4:00 PM EDT Office [place] [address] Kira Thayer MD [facility] [place] [address] documented as of this encounter Visit Diagnoses Diagnosis Chronic obstructive pulmonary disease, unspecified COPD type documented in this encounter Care Teams Yard Clerk Relationship Specialty Start Date End Date Belkys Bundy DO [address] [place] [address] PCP - General Family Medicine 03/21/19 documented as of this encounter
--- OUTSIDE RECORDS SUMMARY | 2024-03-29 08:15 | XMS_ITS | Encounter Summary ---
Author Organization [facility] [place] [address] Care Team Providers Care Hand Cultivator Name Role Phone Belkys Bundy DO Primary Care Provider +1- [phone] Encounter Details Date Type Department Care Team (Late Contact Info) Description 05/12/2020 [place] [phone] Cristin Block Social History Tobacco Use Types [...] 4:00 PM EDT [place] [phone] Kira Thayer MD [facility] [place] [address] documented as of this encounter Visit Diagnoses Not on filedocumented in this encounter Care Teams Hand Cultivator Relationship Specialty Start Date End Date Belkys Bundy DO [address] [place] [address] PCP - General Family Medicine 03/21/19 documented as of this encounter
--- OUTSIDE RECORDS SUMMARY | 2024-03-29 08:15 | XMS_ITS | Encounter Summary ---
[place] [address] Care Team Providers Care Booking Supervisor Name Role Phone Belkys Bundy Primary Care Provider +1- [phone] Reason for Visit * Reason Onset Date Comments Request For Record 07/18/2020 EKG Encounter Details Date Type Department Care Team (Late st Contact Info) Description 07/18/2020 Tele[place] [phone] Emily Starr RN Request For Record (EKG) Social History Tobacco Use Types Packs/Day Years [...] Telephone Encounter - Emily Starr RN - 07/18/2020 12:58 PM EDT Faxed coversheet requesting most recent EKG on file. Fax submission confirmation time stamped for 07/18/2020 @ 0803. 1 page documented in this encounter Plan of Treatment Upcoming Encounters Date Type Department Care Team (Late st Contact Info) Description 08/27/2024 4:00 PM EDT Office [place] [address] Kira Thayer MD [facility] [place] [address] documented as of this encounter Visit Diagnoses Not on filedocumented in this encounter Care Teams Booking Supervisor Relationship Specialty Start Date End Date Belkys Bundy DO [address] [place] [address] PCP - General Family Medicine 03/21/19 documented as of this encounter
--- OUTSIDE RECORDS SUMMARY | 2024-03-29 08:15 | XMS_ITS | Encounter Summary ---
Author Organization [facility] [place] [address] Care Team Providers Care New Accounts Banking Representative Name Role Phone Belkys Bundy DO Primary Care Provider +1- [phone] Encounter Details Date Type Department Care Team (Late st Contact Info) Description 01/24/2020 [place] [phone] Cristin Block Social History Tobacco Use Types [...] 4:00 PM EDT [place] [address] Kira Thayer MD [facility] [place] [address] documented as of this encounter Visit Diagnoses Not on filedocumented in this encounter Care Teams New Accounts Banking Representative Relationship Specialty Start Date End Date Belkys Bundy DO [address] [place] [address] PCP - General Family Medicine 03/21/19 documented as of this encounter
--- OUTSIDE RECORDS SUMMARY | 2024-03-29 08:15 | XMS_ITS | Encounter Summary ---
[place] [address] Care Team Providers Care Cna Name Role Phone Belkys Bundy DO Primary Care Provider +1- [phone] Reason for Referral * Rehabilitation (Routine) - Closed Specialty Diagnoses / Procedures Referred By Rossy levine Referred To Contact Pulmonology Diagnoses Chronic obstructive pulmonary disease, unspecified COPD type Supplemental oxygen dependent Kira Thayer MD [facility] [place] [address] [facility] [place] [address] Referral ID Status Reason Start Date Expiration Date V isits Requested Visits Authorized [id number] Closed Evaluate and Treat 04/25/2020 04/25/2021 36 36 Reason for Visit * Consultation (Routine) - Closed Specialty Diagnoses / Procedures Referred By Rossy levine Referred To Contact Pulmonology Diagnoses Chronic obstructive pulmonary disease, unspecified Dependence on supplemental oxygen Belkys Bundy DO [address] [place] [address] [facility] Pulmonology [address] [place] [id number] Referral ID Status Reason Start Date Expiration Date V isits Requested Visits Authorized [id number] Closed Consult, Test & Treat [facility] PCP Updated and/or Approved 01/18/2020 01/17/2021 6 6 Encounter Details Date Type Department Care Team (Latest Contact Info) Description 04/25/2020 10:00 AM EST TH Visit (TeleHealth) [place] [address] Kira Thayer MD [facility] [place] [address] Chronic obstructive pulmonary disease, unspecified COPD type; Supplemental oxygen dependent; Tobacco use; Pulmonary nodule Social History Tobacco Use Types [...] Progress Notes * Kira Thayer MD - 04/25/2020 10:00 AM EST Images from the original note were not included. [facility] Section of Pulmonary and Critical Care Medicine Outpatient Consultation Date of Encounter: 04/25/2020 TELEHEALTH VISIT Patient identity was confirmed by name and date of at beginning of this telehealth visit. Patient was informed that this telehealth visit is a billable encounter and stated agreement to continue. The patient is at home in [place]. Referring Provider: Belkys Bundy DO [address] [address] Reason for Evaluation: Belkys Bundy DO [address] [address] referred Ms. Jessie Sanchez to the pulmonary clinic for evaluation and management of COPD. I independently interviewed the patient, examined the patient if visit occurred in the office and have reviewed available records. Dear Dr. Belkys Bundy, , As you know, Jessie Sanchez is a 49 y.o. woman with history of emphysema/COPD on home oxygen, obesity,GERD, anxiety and depression, who is an active tobacco smoker, who is referred for management of COPD. Mrs. Sanchez reports that she has a long-standing diagnosis of COPD, and was previously followed by apulmonologist in [place]. She is referred to use since their office no longer has a cosmetics presser. Mrs. Sanchez reports that she has chronic exertional dyspnea, and uses oxygen at times. She has chronic clear chest congestion, and recently had increase in cough. She wheezes with acute exacerbations. She had worsening dyspnea recently and felt generally poor, and was started on prednisone for COPD exacerbation a week ago by her PCP, and this is improving her breathing; she is currently taking prednisone 20 mg po daily. She started using oxygen during the day recently, moreso when moving around;uses 2.5-3 continuous. Typically her sats are 94-95, recently have been in the 80s while sick. She has a home pulse ox to check. Prior to this month she was only using it at night. She tells me she has portable oxygen (an inogen concentrator; was previously her father's, and she is awaiting a new concentrator through [facility].) She notes that years ago she was hospitalized for COPD exacerbation once, not in an ICU. She also has a history pneumonia long ago, and history of bronchitis. She denies any history of asthma. She has a history of allergies; currently taking zyrtec (previously on claritin, and previously on singulair.) She has cats and dogs, and denies any specific allergies but thinks they might bother her breathing a little bit. She has a history of GERD, controlled on omeprazole currently. She is currently taking trelegy; she previously was on advair and on breo. She uses albuterol MDI PRN, and has duonebs which she uses occasionally (was using daily before prednisone.) She does find benefit from bronchodilators. She is prescribed morphine IR 15 mg po BID for dyspnea; she feels this helps her deepen her breathing. This is prescribed by her PCP. She notes that she is a palliative care patient. She tells methat she is interested in being assessed for lung transplant, but has not previously been referred to a lung transplant center. She is an active smoker, up to 2 ppd since age 16 (33 years) and plans to try quitting again beginning on Tuesday. She has patches and plans to use that. She feels motivated to quit now. Stress has been heightened by recent of her parents. She is working on this with her PCP. She has a stationary bike at home; plans to start using this for exercise soon. 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 Currently unemployed. There is a family history of COPD in her mom and her dad, and asthma in her sister, and lung cancerin her paternal aunt, possible lung cancer in a grandmother as well. Past Medical and Surgical History: Past Medical History: Diagnosis Date ??? Anxiety ??? COPD (chronic obstructive pulmonary disease) ??? Depression ??? GERD (gastroesophageal reflux disease) ??? Hypothyroidism Past Surgical History: Procedure Laterality Date ??? APPENDECTOMY ??? BREAST LUMPECTOMY ??? ECTOPIC SURGERY ??? FOOT SURGERY 2010 ??? HYSTERECTOMY ??? PRO UPPER GI ENDOSCOPY, BIOPSY N/A 09/25/2018 UPPER GASTROINTESTINAL ENDOSCOPY,WITH BIOPSY SINGLE OR MULTIPLE (WRVU 2.49) performed by Sammie Johnson MD at [facility] ENDOSCOPY ??? PRO UPPER GI ENDOSCOPY, DIAGNOSTIC N/A 09/25/2018 EGD, UPPER GI ENDOSCOPY performed by Sammie Johnson MD at [facility] ENDOSCOPY Family History: Family History Problem (# of Occurrences) Relation (Name,Age of Onset) Asthma (1) Sister Cancer (1) Paternal Aunt: lung cancer Chronic Obstructive Pulmonary Disease (2) Mother, Father Hyperlipidemia (2) Mother, Father Hypertension (2) Mother, Father Thyroid Disease (2) Sister, Brother Social and Occupational History: Social History Tobacco Use ??? Smoking status: Current Every Day Smoker Packs/day: 2.00 Years: 15.00 Pack years: 30.00 ??? Smokeless tobacco: Never Used ??? Tobacco comment: 7 days ago Substance Use Topics ??? Alcohol use: Yes Comment: rare drink, one drink every few months ??? Drug use: No Current Medications at Start of Encounter: Outpatient Medications Prior to Visit Medication Sig Dispense Refill ??? cetirizine (ZyrTEC) 10 mg Tablet Take 10 mg by mouth daily. ??? wcindyvxwev-soanlnkeh-kqzqkxjf (Trelegy Ellipta) 100-62.5-25 mcg Disk with Device Inhale 1 puffinto the lungs daily. ??? ipratropium-albuteroL (DUONEB) 0.5 mg-3 mg(2.5 [...] ??? DILTiazem (CARDIZEM) 30 mg tablet ??? albuterol (PROVENTIL HFA;VENTOLIN HFA) 90 mcg/actuation inhaler Inhale 2 puffs into the lungs every 4 hours as needed. Use with spacer ??? citalopram (CELEXA) 20 mg Tablet Take 20 mg by mouth nightly. ??? montelukast (SINGULAIR) 10 mg Tablet Take 10 mg by mouth nightly. ??? loratadine (CLARITIN) 10 mg Tablet Take 10 mg by mouth daily. ??? fluticasone furoate-vilanterol 100-25 mcg/dose Disk with Device Inhale into the lungs daily. ??? ERYTHROMYCIN BASE (ERYTHROMYCIN ORAL) Take by mouth. ??? tiotropium (SPIRIVA WITH HANDIHALER) 18 mcg inhalation capsule (Patient not taking: No sig reported) No facility-administered medications prior to visit. Adverse Drug Reactions: Allergies Allergen Reactions ??? Zoloft [Sertraline] Other (See Comments) agitation ??? Vancomycin Rash Review of Systems: A focused ROS was completed and was positive as noted in HPI, and otherwise negative. Physical Examination: Telehealth visit; exam limited. In no distress, comfortable and conversational, normal WOB not on oxygen during this call, overweight. Pulmonary Function Test Results: Not yet obtained at our center. Labs, Microbiology and Imaging: I personally reviewed relevant laboratory, microbiologic and radiology results which were significant for: No recent chest imaging. Chest CTA 03/28/2018, obtained in ED due to hemoptysis: She reports she has had a lung cancer screening CT some time ago (> a year ago); date unclear and we will request additional records. Immunization History: Flu vaccine: has had the 2019 flu vaccine Pneumovax: she thinks she has had this Prevnar-13: NA Impression and Recommendations: Jessie Sanchez is a 49 y/o woman with emphysema and severe COPD with oxygen- dependence, allergies, andobesity, who remains an active smoker and who has ongoing exertional dyspnea. At this visit we discussed medical optimization of her COPD including increasing trelegy inhaler to high-dose form, with c onsideration of initiation of chronic azithromycin. I would like to update her PFTs and ambulatory oxygenation assessment now to establish her current baseline. I counseled her on the importance of tobacco cessation and benefits including reduction in current respiratory symptoms, reduced risk for m alignancy, as well as candidacy for lung transplantation in the future. She plans to start cutting down and wishes to use nicotine patches to assist with this. She reported that she is very interested in a lung transplant evaluation, and I will be happy to place a referral once we have updated PFTsto confirm severity of COPD. I did advise her that weight loss will be important in becoming a candidate for successful lung transplant is she wishes to pursue this. We also discussed the benefits ofpulmonary rehab and I spoke with our respiratory therapist Juanis Osullivan who will reach out to her about enrolling in this program. Her history of chest CT imaging is a bit unclear. I have records of one chest CTA in 2018 with an apical left pulmonary nodule. It is unclear if this has already been followed up at another institution, and the patient thinks she may have had a chest CT around a year ago. I will request records from her previous cosmetics presser to review before ordering chest CT imaging of this nodule. We discussed the COVID19 vaccine, and I encouraged he to pursue vaccination at her earliest opportunity. She does not currently qualify for vaccination in the state of [place] (age not >/= 75), but sheis high risk for severe illness due to COPD and obesity and will hopefully have access soon. She does plan to get the COVID19 vaccine when she qualifies. Summary Recommendations: - increase trelegy to 200 mcg dosing, 1 inhalation once daily, prescribed with this visit - continue albuterol MDI PRN, duonebs PRN - continue zyrtec daily - will update PFTs and ambulatory O2 testing now, ordered and to be scheduled in next 1-2 weeks - pulmonary rehab referral now; she is interested in doing this online this winter - tobacco cessation strongly encouraged; she plans to use patches to quit and has set a cut-down date of Friday 04/28 - pending response to increase in inhaler dosing we will consider addition of chronic azithromycin - pending results of PFTs we will consider moving forward with referral to a lung transplant center - weight loss and increased activity strongly encouraged for lung health as well as transplant candidacy in the future if needed - will request prior OSH records of prior chest imaging; if no chest imaging found after 03/2018 she may need repeat chest CT to follow up on apical pulmonary nodule Follow-up to be arranged in 2 months with telehealth visit. Thank you for involving me in Mrs. Sanchez's care. Please feel free to contact me with any further questions or concerns. I personally spent 54 minutes of this telephone/telehealth encounter with the patient discussing their pulmonary disease and treatment recommendations as outlined in my assessment and plan above. This visit involved a total of 64 minutes of clinical time on day of visit. Kira Thayer MD [facility] PULMONOLOGY AT [facility] [address] Dept: [phone] Loc: [phone] documented in this encounter Plan of Treatment Upcoming Encounters Date Type Department Care Team (Late st Contact Info) Description 08/27/2024 4:00 PM EDT Office [place] [phone] Kira Thayer MD [facility] [place] [address] Scheduled Referrals Name Type Priority Associated Diagnoses Orde r Schedule Referral to Pulmonary Rehab Outpatient Referral Routine Chronic obstructive pulmonary disease, unspecified COPD type Supplemental oxygen dependent Ordered: 04/25/2020 documented as of this encounter Results * [...] / FVC LLN 69 % COMPAS PFT [id number] Actual Pre-BD 0.21 L/s COMPAS PFT [id number] Pre-BD % of Predicted 7 % COMPAS PFT [id number] Predicted 2.82 L/s COMPAS PFT LOS49-62 Pre-BD Z-Score -4.72 COMPAS PFT DLCO Hb [...] lung volume findings suggest emphysema. Procedure Note Sctot Bradley MD - 05/27/2020 SUMMARY: FEV1, FVC [...] supplemental oxygen Tobacco use Tobacco use disorder Pulmonary nodule Solitary pulmonary nodule Chronic obstructive pulmonary disease, unspecified COPD type documented in this encounter Care Teams Cna Relationship Specialty Start Date End Date Belkys Bundy DO [address] [place] [address] PCP - General Family Medicine 03/21/19 documented as of this encounter
--- OUTSIDE RECORDS SUMMARY | 2024-03-29 08:15 | XMS_ITS | Encounter Summary ---
Author Organization [facility] [place] [address] Care Team Providers Care Production Coordinator Name Role Phone Ehsan Mathis Primary Care Provider +1 [phone] Encounter Details Date Type Department Care Team (Late st Contact Info) Description 2018 Ancillary Procedure Radiology Library at [facility] [place] [phone] Sammie Johnson MD [facility] [place] [address] Social History Tobacco Use Types Packs/Day Years [...] 4:00 PM EDT Office Visit Pulmonology at [facility] [place] [phone] Kira Thayer MD [facility] [address] documented as of this encounter Procedures Procedure Name Priority Date/Time Associated Diagnosis Comments FILM LIBRARY STORAGE ONLY NUCLEAR MEDICINE Routine 2018 12:00 AM EDT documented in this encounter Results * Film Library- Storage Only nuclear medicine (2018 12:00 AM EDT) Narrative [facility] - 10/20/2018 11:53 AM EDT This exam is auto-finalizing. It's purpose is for storage only. Sammie Johnson MD IMG FILM LIBRARY ORD ERABLES [place], [place] documented in this encounter Visit Diagnoses Not on filedocumented in this encounter Care Teams Production Coordinator Relationship Specialty Start Date End Date Ehsan Mathis PA PCP - General General Internal Medicine 08/30/1809/09 documented as of this encounter
--- OUTSIDE RECORDS SUMMARY | 2024-03-29 08:15 | XMS_ITS | Encounter Summary ---
Author Organization [facility] [place] [address] Care Team Providers Care Landscaper Helper Name Role Phone Belkys Bundy DO Primary Care Provider +1- [phone] Encounter Details Date Type Department Care Team (Late st Contact Info) Description 01/22/2020 Telephone [place] [phone] Cristin Block Social History Tobacco Use Types [...] PM EDT Office [place] [address] Kira Thayer MD [facility] [place] [address] documented as of this encounter Visit Diagnoses Not on filedocumented in this encounter Care Teams Landscaper Helper Relationship Specialty Start Date End Date Belkys Bundy DO [address] [place] [address] PCP - General Family Medicine 03/21/19 documented as of this encounter
--- OUTSIDE RECORDS SUMMARY | 2024-03-29 08:15 | XMS_ITS | Encounter Summary ---
Author Organization [facility] Address [facility] [place] [address] Care Team Providers Care Griddle Cook Name Role Phone ElliotBelkys paris Virginie MYRICK Primary Care Provider [phone]- [phone] Reason for Visit * Reason Comments Follow-up * Rehabilitation (Routine) - Closed Specialty Diagnoses / Procedures Referred By Rossy levine Referred To Contact Pulmonology Diagnoses Chronic obstructive pulmonary disease, unspecified COPD type Supplemental oxygen dependent Kira Thayer MD [facility] [place] [address] [facility] [place] [address] Referral ID Status Reason Start Date Expiration Date V isits Requested Visits Authorized [id number] Closed Evaluate and Treat 04/25/2020 04/25/2021 36 36 Encounter Details Date Type Department Care Team (Late st Contact Info) Description 05/26/2020 1:00 PM EST Office [place] [address] Juanis Osullivan, RT Chronic obstructive pulmonary disease, unspecified COPD type (Primary Dx); COPD, very severe Social History Tobacco Use [...] Sign Reading Time Taken Comments Blood Pressure 105/77 05/26/2020 12:52 PM EST Pulse 94 05/26/2020 12:52 PM EST Temperature 37.1 ??C (98.7 ??F) 05/26/2020 12:[address] Respiratory Rate 20 05/26/2020 12:52 PM EST Oxygen Saturation 92% 05/26/2020 12:52 PM EST Inhaled Oxygen Concentration - - Weight 75.8 kg (167 lb) 05/26/2020 12:52 PM EST Height 163.8 cm (5' 4.49) 05/26/2020 12:[address] Body Mass Index 28.23 05/26/2020 12:52 PM EST documented in this encounter Patient Instructions * Patient Instructions* Juanis Osullivan RT - 05/26/2020 1:00 PM EST Covid-19 vaccine recommended for Jessie Sanchez due to very severe COPD and in preparation for potential lung transplant Juanis Osullivan, PRINCIPAL SOLUTIONS ARCHITECT,UNDERTAKER ASSISTANT documented in this encounter Progress Notes * Juanis Osullivan RT - 05/26/2020 1:00 PM EST Home Oxygen Evaluation for Jessie Sanchez Resting SpO2 on room air: 88 % HR: 98 bpm Walked 50 feet on room air, SpO2: 82 % HR: 116 bpm Placed on O2 at 2 lpm: Resting SpO2 on 2 lpm O2: 93% HR: 99 bpm Pulmonary Rehabilitation/Respiratory Therapy Services Intake Note 6 Minute Walk: Pre-Walk Vitals: BP:104/68 HR:99 SpO2: 93% Supplemental Oxygen: 2 lpm NIK( dyspnea): 2 Rate of Perceived Exertion: 0 Right hip pain: 0/10 Lowest SpO2 during the walk: HR:121 SpO2 :90% Supplemental Oxygen: 2 lpm NIK( dyspnea): 3 Rate of Perceived Exertion: 2 Post-Walk Vitals: BP:106/70 HR: 117 SpO2: 91% Supplemental Oxygen: 2 lpm NIK( dyspnea):4 Rate of Perceived Exertion: 3 Right Hip Pain: 8/10 Recovery: 3 minutes BP:112/88 HR: 101 SpO2: 95% Supplemental Oxygen: 2 lpm NIK( dyspnea): 3 Rate of Perceived Exertion: 2 Right Hip Pain: 2/10 Comments: Jessie Sanchez walked a distance of 182.9 meters ( 600 feet) in 5:17 minutes with 1 rest secondary to dyspnea. Walk stopped secondary to dyspnea and right hip pain. -reviewed with Jessie and Jones: pulse oximeter reflects the SpO2 And SpCO - directly impacted by her smoking and 2nd hand exposure to smoke. They verbalized understanding. Respiratory History: -COPD: emphysema, Negative for alpha 1 anti-trypsin GERD: omeprazole 20 mg per day, she notes prn GERD symptoms and she will take a Tums Allergies: she takes Zyrtec Hx of pneumonia and bronchitis Smoking History: on good days she smokes 4-5 cigarettes Per day, on bad days she smokes 10-20 cigarettes per day. She noted today she smoked 10 cigarettes this morning, She had been smoking Up to 2 ppd X 33 years - She noted her most important cigarette is first thing in the morning with her coca cola. Discussed ways to deal.change this first cigarette. Jessie had previously quit for 3 months- she did this cold turkey. She currently doesn't place the nicotine patch on till she knows if it is good day or bad day. Reviewed putting it on first thing in the morning to assist with her nicotine craving. She verbalized understanding. Respiratory Symptoms: Cough: increased recently Sputum: yellow for the past month Wheezing: prn, she noted triggers include cold weather, fumes Orthopnea:1 pillow waking up coughing 1-2 times per night ( every other night) - Dyspnea: with minimal exertion, her self-care ADLs take approximately 1 1/2-2 hours to complete ( this includes 3 rest stops secondary to severe dyspnea) Pedal edema:trace RLE Lung sounds: decreased, clear MDI/DPI instruction for Jessie Sanchez: Inspiratory Flows Resistance via Incheck dial Peak Inspiratory Flow Rate in LPM Low resistance ( MDI/Respimat): 1) 50 Medium resistance( most DPIs) 1)30 2) 60 -Instructed in MDI with valved holding chamber technique: Jessie had been doing 2 puffs at one time into her chamber and no breath hold, after instruction Jessie Sanchez Able to demonstrate technique correctly, Inspiratory flow after instruction: 50 lpm, slow deep breath in and hold for 8-10 breaths. - DPI: Instructed in ellipta technique: Initially Jessie was inverting the device and breathing in at 30 lpm with no breath hold. After instruction Jessie Sanchez Able to demonstrate technique, Inspiratory flow after instruction: 60 lpm, fast deep breath in with breath hold of 8-10 seconds. Reviewed importance of priming initially and re-priming MDI HFA if not used within 2 weeks. Reviewed importance of rinsing the mouth after the Trelegy, she is doing this Reviewed order of inhalers: Efrain : currently takes this 2-3 times per month, primarily when she has respiratory infections. Albuterol HFA 90 mcg 2 puffs every 4 hours as needed: 2-3 times per day, Noted that her Ventolin HFA inhalers in 2019, reviewed with Dr. Steiner And new prescription provided for her VentolinHFA Trelegy 200/62.5/25 mcg once a day: in the morning Singulair 10 mg per day: Morphine IR 15 mg 2 times per day for dyspnea Reviewed Cleaning instructions for Valved holding chamber to be done a minimum of weekly: She has anew chamber and will begin washing weekly. - remove inhaler holding end and mouth piece - soak in hot soapy ( dish detergent) water for 10 minutes - Rinse all parts well with hot water -Air dry overnight Reviewed Cleaning instructions for nebulizer kit to be done a minimum of daily: ( provided 2 disposable nebulizer kits). - soak nebulizer parts in hot soapy ( dish detergent) water for 10 minutes - Rinse all parts well with hot water -Air dry overnight ??? Disposable nebulizer replace weekly Current Oxygen Therapy: Home system: low flow oxygen concentrator Portable system: portable oxygen concentrator that goes up to 6 pulse dose ( this was her father's) DME provider: Basia Roman had been utilizing her O2 at 2 lpm prn with activity in the house and 2 pulse dose outside the house prn, 3 lpm at night. Reviewed: O2 at 0-2 lpm At rest, 2 lpm or 3-4 pulse dose with activity., 3 lpm with sleep - will be reviewed with Dr. Thayer. Jessie reports prn morning headaches that resolve after she is awake for a period of time. ETCO2 today on room air at rest: 34-36 mm Hg with RR= 13-16 breaths/minute BREATHING EXERCISES: Introduced concept of Pursed lip breathing to Jessie Sanchez ??? Inhale through nose if possible ??? Exhale through pursed lips, comfortably She was able to demonstrate pursed lip breathing at rest. She noted decreased dyspnea utilizing pursed lip breathing at rest. Plan to practice this at rest and then with ambulation. Other Medical History: -? DVT RLE: Jessie was seen at PCP office on 05/22 and she understood ultrasound ordered for RLE to r/o DVT. RLE with trace edema, no erythema or tenderness noted today -anxiety and depression -hypothyroidism -hysterectomy 2010- secondary to abnormal bleeding. She does have one ovary. Muscular skeletal: - right hip pain prn with ambulation. She notes history of OP PT for bilateral hip pain but is unsure the cause of the pain. Home exercise: -stationary bike - has available but hasn't utilized -glider- 10 minutes per day utilizing her oxygen at 2 lpm. 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 Prior to covid pandemic she enjoyed going to [place] weekly. Currently connected with palliative care Nutrition: Fluid Intake per day: Coca cola in the morning, unsure the remainder of the day. Vision: glasses for distance Hearing: no issues Cognition: decreased short term memory, she writes things down to help remember/ Immunization History: There is no immunization history on file for this patient. Influenza : 2020- yes Pneumococcal: 23: Yes Prevnar 13: unknown Covid-19 vaccine: no Zoster: unknown Tdap: unknown Allergies Allergen Reactions ??? Zoloft [Sertraline] Other (See Comments) agitation ??? Vancomycin Rash Pre-screening tools: MRC: 3 PHQ9 score: 12 GAD7 score: 12 UCSD score: 78 Patient Goals for Pulmonary Rehabilitation: - To get stronger - To lose weight: 3-5 lbs - To be able to take a walk outside - Quit smoking in preparation for a lung transplant - To be able to do her self-care ADLs in less than 2 hours with < 3 stops for dyspnea Covid-19 immunization: Jessie Sanchez lives in [place] and understood that she needed a medical note related to high risk individual to be able to receive covid-19 vaccine. Provided copy of her telehealth visit with Dr. Thayer that includes recommendation for her to receive her Covid-19 vaccines. Changes in Pulmonary Rehabilitation secondary to Covid-19 precautions. The pulmonary rehabilitation program currently meets via [employer] weekly for education and participants continue with their home exercise program with weekly review with the pulmonary rehab staff. The program is under the direction of the medical writer, Dr. Kervin Steiner. Educational classes provided regarding anatomy/physiology of lung disease, breathing retraining, medications, warning signs of infection, environmental risk factors, exercise, energy conservation, stress management and relaxation techniques, coping with a chronic lung disease, nutritional and lung disease, community resources, travel and lung disease. The patient???s progress will be reviewed with the medical writer every 2-4 weeks during the program. Reviewed evaluation for Pulmonary rehabilitation with Dr. Kervin Steiner on 05/26/2020 Plan: She will start the telehealth pulmonary rehabilitation/respiratory therapy services on 06/04/20, after her RLE ultrasound is completed and DVT r/o. She will utilize her oxygen with activity at home including her self-care ADLs. NIK Scale: 0 Nothing at all 0.5 Very, very slight (just noticeable 1 Very slight 2 Slight 3 Moderate 4 Somewhat severe 5 Severe 6 7 Very severe 8 9 Very, very severe (almost maximal) 10 Maximal Medical Research [place] (MRC) Dyspnea Scale: 0: Breathless with strenuous exercise 1: Shortness of Breath when hurrying on the level or walking up a slight hill 2: Walks slower than people of the same age on the level because of breathlessness, or has to stop for breath when walking at own pace 3: Stops for breath after walking about 100 meters or after a few minutes on the level 4: Too breathless to leave the house or breathless when dressing or undressing Patient Health Questionnaire PHQ-9 For Depression- reference scores: 5-9: Minimal Symptoms 10-14: Minor Depression Dysthymia Major depression, mild 15-19: Major depression, moderately severe > = 20: Major depression, severe DONOVAN-7 Anxiety Severity- reference scores: 0-4: Normal 5-9: Mild Anxiety 10-14: Moderate Anxiety 15-21: Severe Anxiety UCSD Shortness of Breath Questionnaire- reference scores: Minimal score: 0- no dyspnea with activity Maximal score: 120- severe dyspnea with any documented in this encounter Plan of Treatment Upcoming Encounters Date Type Department Care Team (Late st Contact Info) Description 08/27/2024 4:00 PM EDT Office [place] [address] Kira Thayer MD [facility] [place] [address] documented as of this encounter Visit Diagnoses Diagnosis Chronic obstructive pulmonary disease, unspecified COPD type- Primary COPD, very severe Chronic airway obstruction, not elsewhere classified documented in this encounter Care Teams Griddle Cook Relationship Specialty Start Date End Date Belkys Bundy DO [address] [place] [address] PCP - General Family Medicine 03/21/19 documented as of this encounter
--- OUTSIDE RECORDS SUMMARY | 2024-03-29 08:15 | XMS_ITS | Encounter Summary ---
[place] [address] Care Team Providers Care Forest Pathologist Name Role Phone Belkys Bundy Primary Care Provider [phone]- [phone] Encounter Details Date Type Department Care Team (Late st Contact Info) Description 07/16/2020 2:00 PM EDT TH Visit (TeleHealth) [place] [address] Juanis Osullivan, RT COPD, very severe Social [...] Progress Notes * Juanis Osullivan RT - 07/16/2020 2:00 PM EDT .Pulmonary Rehabilitation Tele health Visit for Jessie Sanchez This visit replaces an in person visit due to the COVID-19 pandemic. Patient verbally consents to this visit and understands that this visit may be billed, similar to a pulmonary rehabilitation clinic visit. Date of Encounter: 07/16/20 Supervising Physician: Kervin Steiner MD Comments: no exercise today for Jessie. She noted that she may be coming down with a cold and not feeling well. She has spring time allergies with history of sinus infections. Current respiratory symptoms; - light yellow to white sputum - rhinitis: green - eyes swollen - SpO2 decreased to 89-90 % at rest on room air, encouraged her to resume her oxygen. -orthopnea: sleeping with HOB increased to 45 degrees and 1 pillow - last night woke up with night sweats. Denies fever during the day - wheezing -increased dyspnea at rest and with activity. - pain LLL with coughing Respiratory regimen: -Albuterol HFA 90 mcg 2 puffs 3-4 times per day - Duoneb 2 times per day, reviewed ability to take every 4-6 hours as needed - Trelegy once a day -Zyrtec once a day - Singulair- she had stopped- she thought the Zyrtec was the same medication as the Singulair. Reviewed the difference and encouraged her to resume her Singulair - no azithromycin at this time. Pulmonary Rehabilitation Education Topic: Types of Lung disorders- part 1 Presenter: Juanis Osullivan Plan: follow up with Dr. Thayer regarding new respiratory symptoms. Jessie will resume her montelukast/Singulair and understands she is able to take her Duoneb every 4-6 hours as needed. Juanis Osullivan, PROMOTION MANAGER,BOTTOM HOOP DRIVER documented in this encounter Plan of Treatment Upcoming Encounters Date Type Department Care Team (Late st Contact Info) Description 08/27/2024 4:00 PM EDT Office [place] [address] Kira Thayer MD [facility] [address] documented as of this encounter Visit Diagnoses Diagnosis COPD, very severe Chronic airway obstruction, not elsewhere classified documented in this encounter Care Teams Forest Pathologist Relationship Specialty Start Date End Date Belkys Bundy DO [address] [place] [address] PCP - General Family Medicine 03/21/19 documented as of this encounter
--- OUTSIDE RECORDS SUMMARY | 2024-03-29 08:15 | XMS_ITS | Encounter Summary ---
Author Organization [facility] [place] [address] Care Team Providers Care Corporate Real Estate Specialist Name Role Phone Jessie Dover RYLAND Primary Care Provider [phone] Encounter Details Date Type Department Care Team (Late st Contact Info) Description 07/27/2018 Ancillary Procedure Radiology Library at [facility] [place] [phone] [facility] [place] [address] Social History Tobacco Use Types Packs/Day Years [...] 4:00 PM EDT Office Visit Pulmonology at [facility] [place] [address] [facility] [place] [address] documented as of this encounter Procedures Procedure Name Priority Date/Time Associated Diagnosis Comments FILM LIBRARY STORAGE ONLY ULTRASOUND STUDY Routine 07/27/2018 12:00 AM EDT documented in this encounter Results * Film Library- Storage Only Ultrasound Study (07/27/2018 12:00 AM EDT) Narrative [facility] - 10/20/2018 11:51 AM EDT This exam is auto-finalizing. It's purpose is for storage only. Sammie Johnson MD IMG FILM LIBRARY ORD ERABLES [place], [place] documented in this encounter Visit Diagnoses Not on filedocumented in this encounter Care Teams Corporate Real Estate Specialist Relationship Specialty Start Date End Date Jessie Dover APRN PCP - General 06/19/13 08/29/18 documented as of this encounter
--- OUTSIDE RECORDS SUMMARY | 2024-03-29 08:15 | XMS_ITS | Encounter Summary ---
Author Organization [facility] [place] [address] Care Team Providers Care Guest Advisor Name Role Phone Belkys Bundy DO Primary Care Provider [phone]- [phone] Encounter Details Date Type Department Care Team (Late st Contact Info) Description 05/06/2020 Tele[place] [address] Juanis Osullivan RT Social History Tobacco Use [...] Telephone Encounter - Juanis Osullivan RT - 05/06/2020 1:50 PM EST Called Jessie Sanchez at home: schedule PFT ( spirometry, DLCO, LV) at 10 am on - home O2 evaluation and pulmonary rehab evaluation on 05/14/2020 at 1030 am with myself. * Telephone Encounter - Juanis Osullivan RT - 05/06/2020 1:45 PM EST ----- Message from Kira Thayer MD sent at 05/02/2020 2:37 AM EST ----- Juanis, this is the woman I spoke with you about with severe oxygen-dependent COPD, requesting pulmonary rehab enrollment. Do you think you'll be able to schedule her for intake and coordinate PFTs/home O2 assessment for her soon? She has an O2 concentrator from a family member... Tx - JW documented in this encounter Plan of Treatment Upcoming Encounters Date Type Department Care Team (Late st Contact Info) Description 08/27/2024 4:00 PM EDT Office [place] [address] Kira Thayer MD [facility] [place] [address] documented as of this encounter Visit Diagnoses Not on filedocumented in this encounter Care Teams Guest Advisor Relationship Specialty Start Date End Date Belkys Bundy DO [address] [place] [address] PCP - General Family Medicine 03/21/19 documented as of this encounter
--- OUTSIDE RECORDS SUMMARY | 2024-03-29 08:15 | XMS_ITS | Encounter Summary ---
Author Organization [facility] [place] [address] Care Team Providers Care Alarm Signal Operator Name Role Phone Belkys Bundy DO Primary Care Provider [phone]- [phone] Encounter Details Date Type Department Care Team (Late st Contact Info) Description 01/22/2020 Tele[place] [address] Cristin Block Social History Tobacco Use Types [...] Office [place] [address] Kira Thayer MD [facility] [place] [address] documented as of this encounter Visit Diagnoses Not on filedocumented in this encounter Care Teams Alarm Signal Operator Relationship Specialty Start Date End Date Belkys Bundy DO [address] [place] [address] PCP - General Family Medicine 03/21/19 documented as of this encounter
--- OUTSIDE RECORDS SUMMARY | 2024-03-29 08:15 | XMS_ITS | Encounter Summary ---
Author Organization [facility] Address [facility] [place] [address] Care Team Providers Care Equipment Operator/Laborer Name Role Phone Gladis Jones APRN Primary Care Provider Reason for Visit * Auth/Cert Specialty Diagnoses / Procedures Referred By Rossy levine Referred To Contact Diagnoses intestinal metaplasia proclear Procedures PRO UPPER GI ENDOSCOPY, DIAGNOSTIC EGD, UPPER GI ENDOSCOPY Referral ID Status Reason Start Date Expiration Date Visits Re quested Visits Authorized [id number] 1 1 Encounter Details Date Type Department Care Team (Late st Contact Info) Description 09/25/2018 3:45 PM EDT - 09/25/2018 4:15 PM EDT Surgery [place] [address] [facility] [place] [address] EGD, UPPER GI ENDOSCOPY (WRVU 2.09) Social History Tobacco Use Types Packs/Day Years [...] Sign Reading Time Taken Comments Blood Pressure 143/76 09/25/2018 4:15 PM EDT Pulse 89 09/25/2018 4:15 PM EDT Temperature - - Respiratory Rate 14 09/25/2018 4:15 PM EDT Oxygen Saturation 91% 09/25/2018 4:15 PM EDT Inhaled Oxygen Concentration - - [...] better as expected. Tuesday-Tuesday Same Day Endo [phone] 7a-8p Otherwise contact [phone] and ask to speak to the escalator service mechanic masonry inspector Follow-up care is a troncoso part of [...] 4:00 PM EDT Office [place] [address] [facility] [place] [address] documented as of this encounter Procedures Procedure [...] PM EDT 09/25/2018 4:[address] [facility] - 09/25/2018 4:21 PM EDT Specimen requisition ordered. ??Separate Pathology report to follow Sammie Johnson MD PATHOLOGY/CYTOLOGY O EDUARDO Performing Organization Address [facility] Co de Phone Number [facility] [place] [address] * Specimen to Pathology (09/25/2018 4:21 PM EDT) AP Specimen 09/25/2018 4:21 PM EDT 09/25/2018 4:[address] [facility] - 09/25/2018 4:21 PM EDT Specimen requisition ordered. ??Separate Pathology report to follow Sammie Johnson MD PATHOLOGY/CYTOLOGY O EDUARDO Performing Organization Address [facility] [place] [address] * Surgical Pathology Report (09/25/2018 4:08 PM EDT) Final Diagnosis [id number] ? Location: 4T; EA08; A The signing [...] patients on PPI therapy. Electronically signed by: ??Chon TRAVIS, Mabel Verified: ??09/29/2018 ?Pathologist Performed at: ??-[facility] Dept. of Pathology, [place], [place] CLINICAL INFORMATION Specimen Submitted: A - [...] labeled B1. ??sns 09/29/2018 10:[address] [facility] GI Biopsy 09/25/2018 4:08 PM EDT 09/25/2018 4:08 PM EDT GI Biopsy 09/25/2018 4:08 PM EDT 09/25/2018 4:08 PM EDT Sammie Johnson MD PATHOLOGY/CYTOLOGY O EDUARDO [facility] [place] [address] * UPPER GI ENDOSCOPY (09/25/2018 3:53 PM EDT) UPPER GI ENDOSCOPY [facility] Endoscopy Procedure Date: 09/25/2018 3:53 PM ? Patient Name: Jessie Sanchez ? Date of : 1970 ? Age: 48 ? Order #: [id number] ? Instrument Name: [facility]-[id number] ? Procedure: ? Upper GI endoscopy Indications: [...] Diagnoses Not on filedocumented in this encounter Administered Medications Inactive Administered Medications - up to 3 most recent administrations Medication Order MAR Action Action Date Dose Rate Site fentaNYL 50 mcg/mL multi-dose injection ONCE PRN, Starting on Tue09/25/18 at 1605, Until Tue09/25/18 at 1900, Intra-Operative (Intra-Procedure), Routine Given 09/25/2018 4:09 PM EDT 50 mcg Given 09/25/2018 4:05 PM EDT 75 mcg midazolam (PF) (VERSED) multi-dose injection ONCE PRN, Starting on Tue09/25/18 at 1605, Until Tue09/25/18 at 1900, Intra-Operative (Intra-Procedure), Routine Given 09/25/2018 4:09 PM EDT 1 mg Given 09/25/2018 4:05 PM EDT 1.5 mg documented in this encounter Active and Recently Administered Medications Times are shown in EDT. PRN Medication Order 09/23/2018 09/24/2018 09/25/2018 fentaNYL 50 mcg/mL multi-dose injection (CANCELED) ONCE PRN, Starting on Tue09/25/18 at 1605, Until Tue09/25/18 at 1900, Intra-Operative (Intra-Procedure), Routine 1605 (Given - Provid er: Neli Bautista RN)1609 (Given - Provider: Neli Bautista RN) midazolam (PF) (VERSED) multi-dose injection (CANCELED) ONCE PRN, Starting on Tue09/25/18 at 1605, Until Tue09/25/18 at 1900, Intra-Operative (Intra-Procedure), Routine 1605 (Given - Provid er: Neli Bautista RN)1609 (Given - Provider: Neli Bautista RN) documented in this encounter Care Teams Equipment Operator/Laborer Relationship Specialty Start Date End Date Gladis Jones APRN PCP - General Family Medicine 09/25/18 03/20/19 documented as of this encounter
--- OUTSIDE RECORDS SUMMARY | 2024-03-29 08:15 | XMS_ITS | Encounter Summary ---
Author Organization [facility] [place] [address] Care Team Providers Care Er Tech Name Role Phone Ehsan Mathis Primary Care Provider [phone] Encounter Details Date Type Department Care Team (Late st Contact Info) Description 09/20/2018 Telephone [place] [phone] Yoana Perea Social History Tobacco Use Types Packs/Day Years [...] encounter Miscellaneous Notes * Telephone Encounter - Yoana Perea - 09/20/2018 1:33 PM EDT Jessie Daniel [id number] Diagnosis: intestinal metaplasia 1. Have you ever had an EGD before? [x] YES [] NO If Yes, Date of Last EGD: If yes, did you have any problems with the procedure? [] YES [x] NO Explain: What type of sedation was used: 2. Do you take any Blood Thinners? [] YES [x] NO If Yes, type: 3. Do you have a Pacemaker or Defibrillator device? [] YES [] NO If Yes send [facility] message to [facility] Berg DEVICE CHECK 4. Are you a diabetic? [] YES [] NO If yes, controlled by meds or diet? 5. Do you have any Allergies to Eggs, Latex or Medications? [x] YES [] NO If Yes, what: see E- 6. Do you take any Oral Iron Supplements (Including multi vitamins)? [] YES [x] NO 7. Do you have a history of three or more abdominal surgeries? [x] YES [] NO 8. Have you had a problem with sedation or anesthesia? [] YES [x] NO 9. Do you have a c-pap machine or oxygen tank? [] C-PAP [x] Oxygen [] NO 10. Do you take prescription narcotic pain medications? [] YES [x] NO 11. You must have a responsible republican stay at the facility during your procedure and drive you home? [x] YES 12. Is there any other information you would like to give us to aid in scheduling? Height: 5'4 Weight: 159 BMI: 27.3 Age:48 y.o. documented in this encounter Plan of Treatment Upcoming Encounters Date Type Department Care Team (Late st Contact Info) Description 08/27/2024 4:00 PM EDT Office [place] [address] Kira Thayer MD [facility] [place] [address] documented as of this encounter Visit Diagnoses Not on filedocumented in this encounter Care Teams Er Tech Relationship Specialty Start Date End Date Ehsan Mathis PA PCP - General General Internal Medicine 08/30/1809/09 documented as of this encounter
--- OUTSIDE RECORDS SUMMARY | 2024-03-29 08:15 | XMS_ITS | Encounter Summary ---
[place] [address] Care Team Providers Care Database Programmer Name Role Phone Belkys Bundy Primary Care Provider [phone] Reason for Visit * Reason Onset Date Comments Shortness of Breath 07/18/2020 Encounter Details Date Type Department Care Team (Late st Contact Info) Description 07/18/2020 [place] [phone] Bryce Starr-Heidi Read, RN Shortness of Breath Social History Tobacco Use Types Packs/Day Years [...] Telephone Encounter - Kira Thayer MD - 07/18/2020 4:37 PM EDT Discussed with pulmonary nurse Bryce and subsequently with our respiratory therapist Juanis; Christin reached out to Mrs. Sanchez and clarified that she was 88% after walking on room air today, and is 92% when using some supplemental oxygen of 2 L. Juanis also clarified with the patient that she should be using her DuoNebs every 4-6 hours as needed, as she was wheezing and had only been using the duo nebs once a day for ongoing COPD exacerbation. Recommend continuing with prednisone, azithromycin and DuoNeb's at home currently. The patient has been advised that if symptoms are worsening over the weekend she should go to the emergency room forfurther evaluation. She is scheduled for pulmonary rehab with Juanis next Tuesday, at which time symptoms can be reassessed. Kira Thayer MD * Telephone Encounter - Emily Starr RN - 07/18/2020 1:49 PM EDT Per discussion with Dr. Thayer, RN called to assess patient on current therapy. Patient was reached, and she noted that she was okay, but having a hard time breathing still. Shenotes that on ambulation to bathroom and back to chair, she was dropping to 88%. She is currently running her oxygen liter flow at 2.5 LPM. At rest, she is saturating at 92-95%. She notes that she has a productive cough. When asked how her current therapy of azithromycin and prednisone, she notes that it seems to have a positive effect, but not to where she thinks she should be. Patient confirmed that she had COVID-19 testing done at [facility], however has not received results yet.RN called [facility] for results, and was notified that lab sampling was taken on 07/17/2020, and resultsare negative. Forwarding to Dr. Thayer for update. documented in this encounter Plan of Treatment Upcoming Encounters Date Type Department Care Team (Late st Contact Info) Description 08/27/2024 4:00 PM EDT Office [place] [address] Kira Thayer MD [facility] [place] [address] documented as of this encounter Visit Diagnoses Not on filedocumented in this encounter Care Teams Database Programmer Relationship Specialty Start Date End Date Belkys Bundy DO [address] [facility] [place] [address] PCP - General Family Medicine 03/21/19 documented as of this encounter
--- OUTSIDE RECORDS SUMMARY | 2024-03-29 08:15 | XMS_ITS | Encounter Summary ---
Author Organization [facility] Address [facility] [place] [address] Care Team Providers Care Craniologist Name Role Phone Belkys Bundy Primary Care Provider [phone]- [phone] Encounter Details Date Type Department Care Team (Late st Contact Info) Description 07/16/2020 Tele[place] [phone] Kira Thayer MD [facility] [place] [address] Social History Tobacco Use Types Packs/Day Years [...] Telephone Encounter - Kira Thayer MD - 07/16/2020 5:51 PM EDT Notified by respiratory therapist that pt was feeling worse than typical today. Called pt to discuss. She reports feeling very fatigued, increased discomfort with coughing, more chest mucous than typical, increased sinus congestion and pressure, and sweating this morning. Sats are okay, low 90s on 2LNC O2 today. She has been taking zyrtec; this doesn't seem to be as effective as her previous singulair. Formulation: Symptoms concerning for COPD exacerbation, possible sinusitis, allergies could be a factor but don't likely explain all of her symptoms and covid19 infection is also possible. - Recommended covid19 testing - she would like to do locally. She will call PCP's office in the morning to try to arrange locally. - will also treat for COPD exacerbation now: --- prednisone 40 mg po daily x 5 days, rx sent --- azithromycin x 5 days, rx sent (advised not to use zofran while on azithromycin) - resume singulair, rx resent I have asked her to call with an update in a couple days. Kira Thayer MD documented in this encounter Plan of Treatment Upcoming Encounters Date Type Department Care Team (Late st Contact Info) Description 08/27/2024 4:00 PM EDT Office [place] [address] Kira Thayer MD [facility] [place] [address] documented as of this encounter Visit Diagnoses Not on filedocumented in this encounter Care Teams Craniologist Relationship Specialty Start Date End Date Belkys Bundy DO [address] [place] [address] PCP - General Family Medicine 03/21/19 documented as of this encounter
--- OUTSIDE RECORDS SUMMARY | 2024-03-29 08:15 | XMS_ITS | Encounter Summary ---
Author Organization [facility] [place] [address] Care Team Providers Care Crown Ironer Name Role Phone Belkys Bundy DO Primary Care Provider [phone]- [phone] Encounter Details Date Type Department Care Team (Late st Contact Info) Description 05/17/2019 Telephone [place] [phone] Cristin Block Social History Tobacco Use Types [...] 4:00 PM EDT Office [place] [address] Kira Thayer MD [facility] [place] [address] documented as of this encounter Visit Diagnoses Not on filedocumented in this encounter Care Teams Crown Ironer Relationship Specialty Start Date End Date Belkys Bundy DO [address] [place] [address] PCP - General Family Medicine 03/21/19 documented as of this encounter
--- OUTSIDE RECORDS SUMMARY | 2024-03-29 08:15 | XMS_ITS | Encounter Summary ---
Author Organization [facility] Address [facility] [place] [address] Care Team Providers Care Mailroom Supervisor Name Role Phone Belkys Bundy Primary Care Provider [phone]- [phone] Encounter Details Date Type Department Care Team (Late st Contact Info) Description 05/02/2020 [place] [phone] Kira Thayer MD [facility] [place] [address] Social History Tobacco Use Types Packs/Day Years [...] encounter Miscellaneous Notes * Telephone Encounter - Eva Swenson - 05/02/2020 8:43 AM EST Called Jessie to schedule her 2 month telehealth f/u with dr. Thayer on june 25 in the am as she asked. Jessie said if can not connect with [place] to call her home number. documented in this encounter Plan of Treatment Upcoming Encounters Date Type Department Care Team (Late st Contact Info) Description 08/27/2024 4:00 PM EDT Office [place] [address] Kira Thayer MD [facility] [place] [address] documented as of this encounter Visit Diagnoses Not on filedocumented in this encounter Care Teams Mailroom Supervisor Relationship Specialty Start Date End Date Belkys Bundy DO [address] [place] [address] PCP - General Family Medicine 03/21/19 documented as of this encounter
--- OUTSIDE RECORDS SUMMARY | 2024-03-29 08:16 | XMS_ITS | Encounter Summary ---
Author Organization [facility] [place] [address] Care Team Providers Care Sandblaster Supervisor Name Role Phone Genet aSuer MD Primary Care Provider [phone] Reason for Visit * Reason Comments Follow-up Encounter Details Date Type Department Care Team (Late st Contact Info) Description 10/09/2012 10:00 AM EDT Follow-[place] [address] Jennifer Burroughs APRN [facility] [place] [address] Elevated liver function tests (Primary Dx) Discharge Disposition: Home Social History Tobacco Use Types Packs/Day Years Used Date Smoking Tobacco: Every Day Cigarettes 2 15 Alcohol Use Standard Drinks/Week Comments Yes 0 [...] Sign Reading Time Taken Comments Blood Pressure 110/72 10/09/2012 10:07 AM EDT Pulse 61 10/09/2012 10:07 AM EDT Temperature - - Respiratory Rate - - Oxygen Saturation - - Inhaled Oxygen Concentration - - Weight 54.4 kg (120 lb) 10/09/2012 10:07 AM EDT Height 166.5 cm (5' 5.55) 10/09/2012 10:07 AM E DT Body Mass Index 19.63 10/09/2012 10:07 AM EDT documented in this encounter Progress Notes * Jennifer Burroughs, EXTERMINATION SUPERVISOR - 10/09/2012 10:09 AM EDT Subjective: Patient ID: Jessie Bro is a 42 y.o. female. HPI Ms. Bro is a 42 year old female referred by Dr. Genet Sauer for evaluation and treatment of elevated liver tests. She is accompanied by her sister today. Ms. Bro has had a year long history of right upper quadrant abdominal pain with an associated elevation in her alkaline phosphatase. Her ALT and AST have been normal. The pain is generally getting worse in her estimation. The pain is there everyday, it is worse if she is laying on the right side,she tends to readjust her body in an effort to alleviate the pain. She reports that she has lost about 5 or 6 pounds in the past 6 months, she denies trying to loose the weight. She has not changed her diet, she is not exercising. She has been having diarrhea which alternates with constipation, and this alternating bowel habit has been ongoing for the past year. She denies any gi bleeding. She denies any new medications, vitamins or herbs in the past year. She has not travelled outside of the country recently and no other unusual foods etc. She had a CT scan which did not show any obvious issues with her liver, or ducts. She did have somebladder findings and was seen by a urologist. Past Medical History Diagnosis Date ??? COPD (chronic obstructive pulmonary disease) Past Surgical History Procedure Date ??? Ectopic surgery ??? Hysterectomy ??? Foot surgery 2010 ??? Breast lumpectomy Family History Problem Relation Age of Onset ??? Hypertension Mother ??? Hyperlipidemia Mother ??? Hypertension Father ??? Hyperlipidemia Father ??? Thyroid Disease Sister ??? Thyroid Disease Brother great grandmother with cirrhosis, she was not a drinker, unknown cause of cirrhosis or any more details History Social History ??? Marital Status: Spouse Name: N/A Number of Children: N/A ??? Years of Education: N/A Occupational History ??? Not on file. Social History Main Topics ??? Smoking status: Current Everyday Smoker -- 2.0 packs/day for 15 years ??? Smokeless tobacco: Not on file ??? Alcohol Use: Yes rare drink, one drink every few months ??? Drug Use: No ??? Sexually Active: Not on file Other Topics Concern ??? Blood Transfusions No ??? 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 OUTSIDE TESTIN08/10/2011 tprot 6.7, alb 4.0, ap 128, alt 27, ast 13, tbili 0.31 Creat 0.7, na 143, kcl 3.8 Hep A ab IGM neg Heb cab IgM neg Hep c ab neg abd and pelvic CT 08/25/12 Lung bases are clear No hepatic masses Gallbladder appears neg No biliary ductal dilatation Portal and splenic veins are patent No adrenal masses Results for JESSIE BRO ( ) as of 10/09/2012 11:24 Ref. Range 09/11/2012 15:46 WBC Latest Range: 4.0-10.0 x10(3)/mcL 6.4 RBC Latest Range: 3.93-5.22 x10(6)/mcL 4.26 Hemoglobin Latest Range: 11.2-15.7 gm/dL 14.0 Hematocrit Latest Range: 34.0-45.0 % 40.7 MCV Latest Range: 79.0-94.0 fL 95.5 (H) MCH Latest Range: 26.6-32.2 pg 32.9 (H) MCHC Latest Range: 32.0-36.5 gm/dL 34.4 RDWSD Latest Range: 35.0-46.0 fL 47.3 (H) RDWCV Latest Range: 10.9-14.4 % 13.5 Platelets Latest Range: 145-370 x10(3)/mcL 200 MPV Latest Range: 9.0-12.0 fL 10.6 Neutr Abs (ANC) Latest Range: 1.50-6.30 x10(3)/mcL 4.22 Neutrophils % Latest Range: 34.0-71.0 % 65.8 Immature Gran % Latest Range: 0.00-0.66 % 0.20 Lymphocytes % Latest Range: 19.0-53.0 % 23.6 Monocytes % Latest Range: 4.0-13.0 % 8.6 Eosinophils % Latest Range: 0.0-7.0 % 1.2 Basophils % Latest Range: 0.0-2.0 % 0.6 Julia Gran Abs Latest Range: 0.00-0.05 x10(3)/mcL 0.01 Lymphocytes Abs Latest Range: 1.0-3.6 x10(3)/mcL 1.5 Monocyte Abs Latest Range: 0.2-1.0 x10(3)/mcL 0.6 Eosinophils Abs Latest Range: 0.0-0.5 x10(3)/mcL 0.1 Basophils Abs Latest Range: 0.0-0.2 x10(3)/mcL 0.0 Total Protein Latest Range: 6.4-8.3 gm/dL 6.7 Albumin Latest Range: 3.2-5.2 gm/dL 4.3 Total Bilirubin Latest Range: 0.2-1.3 mg/dL 0.3 Bili, Direct Latest Range: 0.0-0.3 mg/dL 0.1 Alk Phos Latest Range: 40-104 unit/L 113 (H) AST Latest Range: 0-30 unit/L 16 ALT Latest Range: 0-30 unit/L 15 Ferritin Latest Range: 15-150 ng/mL 39 Iron Latest Range: 30-150 mcg/dL 77 TIBC Latest Range: 250-450 mcg/dL 302 Iron Saturation Latest Range: 20-50 % 25 A1AT Latest Range: 100 - 190 mg/dL 146 A1AT Genotype No range found A1AT (SERPINA1) G... Mitochon Ab Latest Range: <0.1 (Negative) U <0.1 GISSELLE Latest Range: Neg Neg IgG Latest Range: 700-1600 mg/dL 688 (L) IgA Latest Range: 70-400 mg/dL 173 IgM Latest Range: 40-230 mg/dL 59 Sm Muscle Ab Latest Range: Negative Negative TTG IgA Ab Latest Range: <=3.9 u/ml <4.0 HepB Surface Ab No range found Negative HepB Surface Ag Latest Range: Negative Negative Hep B Core Ab Latest Range: Negative Negative Ceruloplasmin Latest Range: 16.0 - 45.0 mg/dL 25.0 Review of Systems Constitutional: Positive for fatigue and unexpected weight change. Negative for fever and chills. HENT: Negative for nosebleeds. Eyes: Positive for visual disturbance (one night reports vision loss in one eye which resolved spontaneolsly). Respiratory: Negative for cough and shortness of breath. Cardiovascular: Negative for chest pain, palpitations and leg swelling. Gastrointestinal: Positive for abdominal pain (right upper quadrant and right flank), diarrhea and constipation. Negative for nausea, vomiting, blood in stool, anal bleeding and rectal pain. Genitourinary: Negative for urgency, frequency and hematuria. Musculoskeletal: Positive for back pain (over the right flank). Negative for arthralgias. Skin: Negative for rash. Neurological: Negative for seizures. Hematological: Bruises/bleeds easily. Psychiatric/Behavioral: Positive for sleep disturbance and dysphoric mood. The patient is not nervous/anxious. Objective: Physical Exam Constitutional: She is oriented to person, place, and time. She appears well- developed and well-nourished. HENT: Head: Normocephalic and atraumatic. Eyes: Pupils are equal, round, and reactive to light. No scleral icterus. Neck: No thyromegaly present. Cardiovascular: Normal rate, regular rhythm and normal heart sounds. No murmur heard. Pulmonary/Chest: Effort normal. She has no wheezes. Abdominal: Soft. Bowel sounds are normal. There is no tenderness. Musculoskeletal: She exhibits no edema. Neurological: She is alert and oriented to person, place, and time. Skin: Skin is warm and dry. Psychiatric: She has a normal mood and affect. Her behavior is normal. Assessment and Plan: Ms. Bro is a 42 year old female with a mild elevation in alk phos which has been persistent for about a year. She has right upper quadrant abdominal pain as well as flank pain and a change in her bowel habits. All of the testing done for chronic liver disease was negative. She had imaging which did not show any ductal dilatation or other issues with her biliary system. She reports that her colonoscopy was negative, I do not have a copy of this report. Her alkaline phos is really only mildly elevated and I do not have a good explanation for this, we discussed that she could have early disease which we cannot diagnose at this time. I do not believe a liver biopsy would be of much help given the mild nature of the alk phos elevation. It is reassuring that she does not have any signs of advanced liver disease nor apparently any concerning findings on colonoscopy. I have suggested she return to see her PCP for her ongoing issues, perhaps the right upper quadrantflank pain is from a pulmonary source, I have suggested smoking cassation. I do not need to see her back unless there is a change in her tests or a new finding suggestive of liver disease. documented in this encounter Plan of Treatment Upcoming Encounters Date Type Department Care Team (Late st Contact Info) Description 08/27/2024 4:00 PM EDT Office [place] [address] Kira Thayer MD [facility] [place] [address] documented as of this encounter Visit Diagnoses Diagnosis Elevated liver function tests- Primary Other abnormal blood chemistry documented in this encounter Care Teams Sandblaster Supervisor Relationship Specialty Start Date End Date Genet Sauer MD [facility] [address] [place] [address] [place] [address] PCP - General 09/11/12 06/18/13 documented as of this encounter
--- OUTSIDE RECORDS SUMMARY | 2024-03-29 08:16 | XMS_ITS | Encounter Summary ---
[place] [address] Care Team Providers Care Vascular Nurse Name Role Phone Cathy Wu Virginie MARCELINO Primary Care Provider [phone] Reason for Visit * Reason Comments Rash Encounter Details Date Type Department Care Team (Late st Contact Info) Description 08/27/2011 3:30 PM EDT Office Visit Dermatology [address] [place] [address] [address] [place] [address] Deven Payan MD [address], [place] [address] Pruritus (Primary Dx) Social History Tobacco Use Types Packs/Day Years Used Date Smoking Tobacco: Every Day Cigarettes 2 15 Tobacco Cessation:Ready to Q uit: No; Counseling Given: Yes Alcohol Use Standard Drinks/Week Comments Not Asked 0 (1 standard drink = 0.6 oz pur e alcohol) Sex and Gender Information Value Date Recorded Sex Assigned at Female 06/09/2020 12:20 PM EST Gender Identity Not on file Sexual Orientation Straight 06/09/2020 12 :20 PM EST documented as of this encounter Progress Notes * Deven Payan MD - 08/27/2011 6:10 PM EDT Problem: Pruritus. Jessie is a 40-year-old woman who for the last three weeks has had significant pruritus. It started on her leg but then became generalized. She has never had this degree of itching before. It has really bothered her. It led her to seek help from Ragini Bautista, who tried to help her with hydroxyzine and a course of prednisone. The hydroxyzine was too sedating, and the prednisone helped while she was on the taper, but now she is starting to itch again. She lives at home with her child and her mother. None of them is itching. Her boyfriend who does not live with her in the same house has no itching. She works at [employer] in [employer] and she states there is a woman there that does itch. The patient's medications include Advair, Spiriva, Nasonex, and Proventil. There has been no change on these. She is allergic to perfumes but does not have any other known allergies per se. Physical examination reveals a pleasant 40-year-old who is very fair skinned, freckled, with reddish-brown hair and has mildly and diffusely xerotic skin, but has only some suggestion of some hyperkeratosis and perhaps burrows in the finger web spaces of her hands and over her knuckles. These are negative, however, on DAVIS for any scabetic material. Other than xerosis, she does not have any primary dermatologic findings on examination of the head and the neck, the chest, the back, hands, arms, forearms, thighs, and calves. Assessment and Plan: Pruritus, significant, of new onset times three weeks. a. Despite negative DAVIS, I do suspect that she may have been exposed to scabies, and I think that she needs to be treated with ivermectin, as do all of her household contacts. Prescriptions given for all family members for one treatment today and then to repeat again in one week. b. I recommended that she also use triamcinolone 0.1% cream, and an 80-gram tube was given with three refills to apply p.r.n. b.i.d. to affected areas. She knows that it will take up to a month for the itching to decrescendo and resolve. c. I told her that if she has scabies, she is not contagious after her dosing tonight. I recommended that the colleague at work who has itching skin be evaluated by a medical provider. d. Return to the clinic will be on a p.r.n. basis. I have asked her to let me know if she is not seeing significant improvement over the next several weeks. Copy: Ragini Bautista documented in this encounter Plan of Treatment Upcoming Encounters Date Type Department Care Team (Late st Contact Info) Description 08/27/2024 4:00 PM EDT Office [place] [address] Kira Thayer MD [facility] [place] [address] documented as of this encounter Visit Diagnoses Diagnosis Pruritus- Primary Unspecified pruritic disorder documented in this encounter Care Teams Vascular Nurse Relationship Specialty Start Date End Date Cathy Wu APRN PCP - General 08/27/11 09/10/12 documented as of this encounter
--- OUTSIDE RECORDS SUMMARY | 2024-03-29 08:16 | XMS_ITS | Encounter Summary ---
Author Organization [facility] [place] [address] Care Team Providers Care Insurance And Benefits Clerk Name Role Phone Jessie Dover Senait MARCELINO Primary Care Provider [phone] Encounter Details Date Type Department Care Team (Late st Contact Info) Description 05/07/2014 [place] [phone] Saad Chang Jr., MD [facility] [place] [address] Social History Tobacco Use Types Packs/Day Years [...] 4:00 PM EDT [place] [address] Kira Thayer MD [facility] [place] [address] documented as of this encounter Procedures Procedure Name Priority Date/Time Associated Diagnosis Comments FILM LIBRARY STORAGE ONLY CT CHEST Routine 05/07/2014 9:43 PM EST documented in this encounter Results * Film Library- Storage only CT Chest (05/07/2014 9:43 PM EST) Anatomical Region Laterality Modality Chest Other 05/07/2014 9:43 PM EST Narrative 08/05/2014 9:44 PM EDT This is a Non-reportable exam Procedure Note ELHAM, UNSIGNED REPORT - 08/05/2014 This is a Non-reportable exam Saad Chang Jr., MD IMG FILM LIBRARY O RDERABLES documented in this encounter Visit Diagnoses Not on filedocumented in this encounter Care Teams Insurance And Benefits Clerk Relationship Specialty Start Date End Date Jessie Dover APRN PCP - General 06/19/13 08/29/18 documented as of this encounter
--- OUTSIDE RECORDS SUMMARY | 2024-03-29 08:16 | XMS_ITS | Encounter Summary ---
Author Organization [facility] [place] [address] Care Team Providers Care Wagon Washer Name Role Phone Cathy Wu RYLAND Primary Care Provider [phone] Encounter Details Date Type Department Care Team (Late st Contact Info) Description 08/21/2012 Orders [place] [phone] Jennifer Burroughs APRN [facility] GASTROENTEROLOGY DEPT. [place], [place] [id number] Social History Tobacco Use Types Packs/Day Years Used Date Smoking Tobacco: Every Day Cigarettes 2 15 Alcohol Use Standard Drinks/Week Comments Not Asked [...] 4:00 PM EDT Office [place] [address] Kira Thayer MD [facility] [place] [address] documented as of this encounter Procedures Procedure Name Priority Date/Time Associated Diagnosis Comments FILM LIBRARY STORAGE ONLY DX CHEST Routine 08/21/2012 10:45 AM EDT documented in this encounter Results * Film Library- Storage only DX Chest (08/21/2012 10:45 AM EDT) Anatomical Region Laterality Modality Other 08/21/2012 10:4 5 AM EDT Narrative 05/14/2013 11:35 PM EST This is a non-reportable exam. Procedure Note Mono Tate - 05/14/2013 This is a non-reportable exam. Jennifer Burroughs APRN IMG FILM LIBRARY ORD ERABLES documented in this encounter Visit Diagnoses Not on filedocumented in this encounter Care Teams Wagon Washer Relationship Specialty Start Date End Date Cathy Wu APRN PCP - General 08/27/11 09/10/12 documented as of this encounter
--- OUTSIDE RECORDS SUMMARY | 2024-03-29 08:16 | XMS_ITS | Encounter Summary ---
[place] [address] Care Team Providers Care Insights Strategist Name Role Phone Genet Sauer MD Primary Care Provider [phone] Encounter Details Date Type Department Care Team (Latest Contact Info) Description 01/09/2013 8:53 AM EDT - 01/09/2013 11:59 PM EDT Hospital Encounter [place] [phone] Genet Sauer MD [address] [place] [address] [address] [place], [place] [id number] Discharge Disposition: Home Social History Tobacco Use [...] Sig Dispensed Refills Start Date End Date PARoxetine (PAXIL) 20 mg tablet Take 20 mg by mouth every morning. 09/25/2018 fluticasone-salmeterol (ADVAIR) 500-50 mcg/dose diskus inhaler Inhale 1 puff into the lungs every 12 hours. 09/25/2018 albuterol (PROVENTIL HFA;VENTOLIN HFA) 90 mcg/actuation inhaler Inhale 2 puffs into the lungs every 4 hours as needed. Use with spacer 05/26/2020 tiotropium (SPIRIVA WITH HANDIHALER) 18 mcg inhalation capsule 01/01/2009 documented as of this encounter Plan of Treatment Upcoming Encounters Date Type Department Care Team (Late st Contact Info) Description 08/27/2024 4:00 PM EDT Office Visit [place] [address] Kira Thayer MD [facility] [place] [address] documented as of this encounter Procedures Procedure Name Priority Date/Time Associated Diagnosis Comments NM PET CT SKULL BASE TO MID-THIGH ([facility]) Routine 01/09/2013 10:40 AM EDT POCT GLUCOSE Routine 01/09/2013 9:12 AM EDT documented in this encounter Results * PET/CT STANDARD (Skull base to Mid-thigh) (01/09/2013 10:40 AM EDT) Anatomical Region Laterality Modality Other 01/09/2013 10:4 0 AM EDT Narrative 01/09/2013 11:59 AM EDT Examination PET/CT STANDARD (Skull base to Mid-thigh) Technique Procedure: Following IV injection of 67-vgeiid-7-deoxyglucose (FDG) and a standard uptake period, a non-contrast CT scan followed by a PET scan were acquired from the base of the skull to mid-thighs. The non-contrast CT was used for anatomic localization and photon attenuation correction of the PET scan. Blood Glucose Level (mg/dL):90 FDG Dose(mCi):8.4(0.15 mCi/kg to maximum of 18 mCi). Pre-medication: None Clinical History 8mm pulmonary nodule/staging prev xray and CT scan at outside facility Comparison Chest CT dated January 02, 2013 Head/Neck No abnormal activity is seen. Chest A nodule is present in the right upper lobe (image 43) and appears unchanged from the prior CT scan. It does not display FDG activity greater than mediastinal blood pool background. There is emphysematous change in both lungs. Abdomen/Pelvis No abnormal FDG activity is seen. Skeleton/Extremities No abnormal FDG activity is seen. Impression The right upper lobe pulmonary nodule is not hypermetabolic. This finding argues for a benign process. Thank you for referring this patient to the [facility] PET [facility] Procedure Note Amomn Shea MD - 01/09/2013 Examination PET/CT STANDARD (Skull base to Mid-thigh) Technique Procedure: Following IV injection of 56-ozgjsy-1-deoxyglucose (FDG) and a standard uptake period, a non-contrast CT scan followed by a PET scan were acquired from the base of the skull to mid-thighs. The non-contrast CT wasused for anatomic localization and photon attenuation correction of the PETscan. Blood Glucose Level (mg/dL):90 FDG Dose(mCi):8.4(0.15 mCi/kg to maximum of 18 mCi). Pre-medication: None Clinical History 8mm pulmonary nodule/staging prev xray and CT scan at outside facility Comparison Chest CT dated January 02, 2013 Head/Neck No abnormal activity is seen. Chest A nodule is present in the right upper lobe (image 43) and appearsunchanged from the prior CT scan. It does not display FDG activity greater than mediastinal blood pool background. There is emphysematous change in both lungs. Abdomen/Pelvis No abnormal FDG activity is seen. Skeleton/Extremities No abnormal FDG activity is seen. Impression The right upper lobe pulmonary nodule is not hypermetabolic. This finding argues for a benign process. Thank you for referring this patient to the [facility] PET Center Genet Sauer MD G PET ORDERABLES * POCT Glucose (01/09/2013 9:12 AM EDT) Glucose, POC 90 60 - 199 mg/dL [facility] Comment: Supplemental ranges: <110 mg/dL before meals <200 mg/dL all other times of the day Blood specimen (specimen) 01/09/2013 9:12 AM EDT 01/09/2013 9:12 AM EDT Genet Sauer MD POINT OF CARE TEST O RDERABLES [facility] [place] documented in this encounter Visit Diagnoses Not on filedocumented in this encounter Administered Medications Inactive Administered Medications - up to 3 most recent administrations Medication Order MAR Action Action Date Dose Rate Site ALPRAZolam (XANAX) tablet 0.5 mg 0.5 mg, Oral, ONCE, 1 dose, On Tue01/09/13 at 0000, Per PET protocol, Routine Given 01/09/2013 9:15 AM EDT 0.5 mg documented in this encounter Care Teams Insights Strategist Relationship Specialty Start Date End Date Genet Sauer MD [facility] [address] [place] [address] [place] [address] PCP - General 09/11/12 06/18/13 documented as of this encounter
--- OUTSIDE RECORDS SUMMARY | 2024-03-29 08:16 | XMS_ITS | Encounter Summary ---
Author Organization [facility] [place] [address] Care Team Providers Care Senior Accountant Analyst Name Role Phone Genet Sauer MD Primary Care Provider [phone] Encounter Details Date Type Department Care Team (Late st Contact Info) Description 01/02/2013 Orders [place] [phone] Sammie Johnson MD [facility] [place] [address] Social History Tobacco Use Types Packs/Day Years [...] 4:00 PM EDT Office [place] [phone] Kira Thayer MD [facility] [place] [address] documented as of this encounter Procedures Procedure Name Priority Date/Time Associated Diagnosis Comments FILM LIBRARY STORAGE ONLY DX CHEST Routine 01/02/2013 12:05 PM EDT documented in this encounter Results * Film Library- Storage only DX Chest (01/02/2013 12:05 PM EDT) 01/02/2013 12:0 5 PM EDT Narrative DH RAD - 12/03/2013 11:05 PM EDT This is a non-reportable exam. Procedure Note Messi Tate - 12/03/2013 This is a non-reportable exam. Sammie Johnson MD IMG FILM LIBRARY ORD ERABLES [facility] [address] [place] [address] documented in this encounter Visit Diagnoses Not on filedocumented in this encounter Care Teams Senior Accountant Analyst Relationship Specialty Start Date End Date Genet Sauer MD [facility] [address] [place] [address] [place] [address] PCP - General 09/11/12 06/18/13 documented as of this encounter
--- OUTSIDE RECORDS SUMMARY | 2024-03-29 08:16 | XMS_ITS | Encounter Summary ---
Author Organization [facility] [place] [address] Care Team Providers Care Animal Behaviorist Name Role Phone Belkys Bundy DO Primary Care Provider [phone] Encounter Details Date Type Department Care Team (Late st Contact Info) Description 12/26/2008 [place] [address] Macie Carreon MD DERMATOLOGY Social History Tobacco Use Types Packs/Day Years Used Date Smoking Tobacco: Never Assessed Sex and Gender Information Value Date Recorded Sex Assigned at Female 06/09/2020 12:20 PM EST Gender Identity Not on file Sexual Orientation Straight 06/09/2020 12 :20 PM EST documented as of this encounter Plan of Treatment Upcoming Encounters Date Type Department Care Team (Late st Contact Info) Description 08/27/2024 4:00 PM EDT Office [place] [address] Kira Thayer MD [facility] DR [place] [address] documented as of this encounter Procedures Procedure Name Priority Date/Time Associated Diagnosis Comments SURGICAL PATHOLOGY REPORT Routine 12/26/2008 3:03 PM EDT documented in this encounter Results * Surgical Pathology Report (12/26/2008 3:03 PM EDT) Pathologist [facility] Surgical Pathology Report [id number] ? Location: 4M The signing pathologist has (i) examined the relevant preparation(s) for the specimen(s) and (ii) rendered or confirmed the diagnosis(es). . ?Pathology Surgical Pathology Final Report Clinical Information Specimen Submitted: A - Central upper back, Re-excision - Not Oriented (1): Clinical History: See previous path [id number] Clinical Diagnosis: Scar vs residual Gross Description Labeled/Fixativ e: ? Labeled with the patient's name, formalin. Qty/Size/Weight : ?Single, 3.5 x 1.8 x 1.1 cm. Tissue Description: ?? Ellipse of bass skin with a central, 1.0-cm, pink ?scar. Sections/Proces sing: ??The specimen is inked and serially sectioned. ??The ?ends are submitted in (1); the remainder of the ?specimen submitted in (2-6). ??(T6) ??aje/SNS Microscopic Description Slides reviewed, microscopic description not recorded. Diagnosis Skin of central upper back, re-excision: ?? 1. ??Scar, consistent with prior surgical procedure. ?? 2. ??There is no residual atypical melanocytic proliferation. CR-0 12/27/08 [facility] 12/29/08 Verified by: ? Abisai TRAVIS, PhD, Phong ?Dermatopathol ogist ?(Electronic Signature) The attending pathologist whose signature appears on this report has reviewed all diagnostic slides and has edited the gross and/or microscopic portion of the report in rendering the final pathologic diagnosis. NICHOLAS GREENBERG 12/26/2008 3:03 PM EDT Macie Carreon MD PATHOLOGY/CYTOLOG Y ORDERABLES Performing Organization Address City/State/[facility] Co de Phone Number [facility] documented in this encounter Visit Diagnoses Not on filedocumented in this encounter Care Teams Animal Behaviorist Relationship Specialty Start Date End Date Belkys Bundy DO [address] [place] [address] PCP - General Family Medicine 03/21/19 documented as of this encounter
--- OUTSIDE RECORDS SUMMARY | 2024-03-29 08:16 | XMS_ITS | Encounter Summary ---
[facility] [place] [address] [address] Team [address] Care [address] Worker Name Role Phone Cathy Wu RYLAND Primary Care Provider [phone] Encounter Details Date Type Department Care Team (Late st Contact Info) Description 09/07/2012 External Results XRay at [address] [place] [id number] Johan Riddle MD [address] [place] [address] Social History Tobacco Use Types Packs/Day Years [...] 4:00 PM EDT Office Visit Pulmonology at [facility] [place] [address] Kira Thayer MD [facility] [place] [address] documented as of this encounter Procedures Procedure Name Priority Date/Time Associated Diagnosis Comments CT SCAN (SCAN) Routine 08/25/2012 ULTRASOUND SCAN (SCAN) Routine 08/21/2012 DIAGNOSTIC RADIOLOGY SCAN Routine 08/21/2012 DIAGNOSTIC RADIOLOGY SCAN Routine 06/07/2012 documented in this encounter Results * Scan Doc: CT Scan (08/25/2012) Anatomical Region Laterality Modality Other Genet Sauer MD MEDIA MGR SCAN EXT O RDR/RSLT * Scan Doc: Diagnostic Radiology (08/21/2012) Anatomical Region Laterality Modality Other Johan Riddle MD MEDIA MGR SCAN EXT O RDR/RSLT * Scan Doc: Ultrasound (08/21/2012) Anatomical Region Laterality Modality Other Johan Riddle MD MEDIA MGR SCAN EXT O RDR/RSLT * Scan Doc: Diagnostic Radiology (06/07/2012) Anatomical Region Laterality Modality Other Johan Riddle MD MEDIA MGR SCAN EXT O RDR/RSLT documented in this encounter Visit Diagnoses Not on filedocumented in this encounter Care Teams Drive Worker Relationship Specialty Start Date End Date Cathy Wu APRN PCP - General 08/27/11 09/10/12 documented as of this encounter
--- OUTSIDE RECORDS SUMMARY | 2024-03-29 08:16 | XMS_ITS | Encounter Summary ---
Author Organization [facility] Address [address] [place] [address] Care Team Providers Care Oncology Rn Name Role Phone Genet Sauer MD Primary Care Provider [phone] Encounter Details Date Type Department Care Team (Late st Contact Info) Description 08/07/2022 Lab Requisition [facility] Pathology & Laboratory Medicine - [address] [address] Outr Resulting Lab, Provider Social History Tobacco Use Types Packs/Day Years Used Date Smoking Tobacco: Never Assessed Interpersonal Safety Answer Date Record ed Physically Hurt Never 11/11/2019 Verbally Threaten Not on file 11/11/2019 Comments Unknown Sex and Gender Information Value Date Recorded Sex Assigned at Not on file Legal Sex Female 18:42 EST Gender Identity Not on file Sexual Orientation Not on file documented as of this encounter Plan of Treatment Not on file documented as of this encounter Procedures Procedure Name Priority Date/Time Associated Diagnosis Comments FECAL BACTERIAL PATHOGENS BY PCR Routine 08/06/2022 11:30 EDT documented in this encounter Results * FECAL BACTERIAL PATHOGENS BY PCR (08/06/2022 11:30 EDT) Salmonella PCR Unresolved Negative 08/09/2022 11:46 EDT [facility] Comment:An UNRESOLVED or IND ETERMINATE result for this test is an indicator that the sample was not suitable for testing after running the test twice. It is not a lab error. Either there was no DNA or RNA in the sample or there was an interfering substance (e.g. mucus) that prevented detection of any human or viral DNA or RNA. Recollection of the specimen should be considered. Shigella/Enteroin vasive E. coli Unresolved Negative 08/09/2022 11:46 T [facility] Comment:An UNRESOLVED or IND ETERMINATE result for this test is an indicator that the sample was not suitable for testing after running the test twice. It is not a lab error. Either there was no DNA or RNA in the sample or there was an interfering substance (e.g. mucus) that prevented detection of any human or viral DNA or RNA. Recollection of the specimen should be considered. HN LAB CAMPYLOBACTER PCR Unresolved Negative 08/09/2022 11:46 EDT [facility] Comment:An UNRESOLVED or IND ETERMINATE result for this test is an indicator that the sample was not suitable for testing after running the test twice. It is not a lab error. Either there was no DNA or RNA in the sample or there was an interfering substance (e.g. mucus) that prevented detection of any human or viral DNA or RNA. Recollection of the specimen should be considered. Shiga Toxin PCR Unresolved Negative 11:46 T [facility] Comment:An UNRESOLVED or IND ETERMINATE result for this test is an indicator that the sample was not suitable for testing after running the test twice. It is not a lab error. Either there was no DNA or RNA in the sample or there was an interfering substance (e.g. mucus) that prevented detection of any human or viral DNA or RNA. Recollection of the specimen should be considered. Feces SPECIMEN FROM RECTUM / Unknown 08/06/2022 11:30 EDT 08/08/2022 17:27 EDT us Provider Outr Resulting Lab MICROBIOLOGY - GENER AL ORDERABLES Final Result [facility] [address] [place] [address] documented in this encounter Visit Diagnoses Not on filedocumented in this encounter Care Teams Oncology Rn Relationship Specialty Start Date End Date Genet Sauer MD [address] [place] [address] PCP - General 09/19/12 documented as of this encounter
--- OUTSIDE RECORDS SUMMARY | 2024-03-29 08:16 | XMS_ITS | Encounter Summary ---
Author Organization [facility] [place] [address] Care Team Providers Care Package Wrapper Name Role Phone Genet Sauer MD Primary Care Provider [phone] Encounter Details Date Type Department Care Team (Late st Contact Info) Description 10/07/2008 Orders [place] [address] Joao Interiano MD Social History Tobacco Use Types Packs/Day Years [...] Office [place] [address] Kira Thayer MD [facility] [place] [address] Pending Results Name Type Priority Associated Diagnoses Date /Time Film Library- Storage only DX Chest Imaging Routine 10/07/2008 4:58 PM EDT documented as of this encounter Visit Diagnoses Not on filedocumented in this encounter Care Teams Package Wrapper Relationship Specialty Start Date End Date Genet Sauer MD [facility] [address] [place] [address] [place] [address] PCP - General 09/11/12 06/18/13 documented as of this encounter
--- OUTSIDE RECORDS SUMMARY | 2024-03-29 08:16 | XMS_ITS | Encounter Summary ---
Author Organization [facility] Address [address] [place] [address] Care Team Providers Care Eyewear Consultant Name Role Phone Genet Sauer MD Primary Care Provider [phone] Encounter Details Date Type Department Care Team (Late st Contact Info) Description 10/05/2023 Lab Requisition [facility] Pathology & Laboratory Medicine - [address] [address] Outr Resulting Lab, Provider Social History Tobacco [...] Procedure Name Priority Date/Time Associated Diagnosis Comments MEASLES IGG AB Routine 10/05/2023 9:32 EDT RUBELLA IGG ANTIBODY Routine 10/05/2023 9:32 EDT MUMPS ANTIBODY IGG Routine 10/05/2023 9:32 EDT documented in this encounter Results * MEASLES IGG AB (10/05/2023 9:32 EDT) Measles IgG Ab Positive See Note 10/06/2023 11:09 EDT [facility] Comment:Presence of detectab le measles virus IgG antibodies. Blood VENOUS BLOOD / Unknown 10/05/2023 9:32 EDT 10/05/2023 19:26 EDT us Provider Outr Resulting Lab IMMUNOLOGY AND SEROL OGY ORDERABLES Final Result Performing Organization Address City/[facility]/ZIP Co de Phone Number [facility] [address] [place] [address] * MUMPS ANTIBODY IGG (10/05/2023 9:32 EDT) Mumps Antibody IgG Positive See Note 10/06/2023 11:10 EDT [facility] Comment:Presence of detectab le mumps virus IgG antibodies. Blood VENOUS BLOOD / Unknown 10/05/2023 9:32 EDT 10/05/2023 19:26 EDT us Provider Outr Resulting Lab IMMUNOLOGY AND SEROL OGY ORDERABLES Final Result Performing Organization Address [facility] Co de Phone Number [facility] [address] [place] [address] * RUBELLA IGG ANTIBODY (10/05/2023 9:32 EDT) Rubella IgG Ab Positive See Note 10/06/2023 11:11 EDT [facility] Comment:Positive for IgG ant ibodies to Rubella virus. Blood VENOUS BLOOD / Unknown 10/05/2023 9:32 EDT 10/05/2023 19:26 EDT us Provider Outr Resulting Lab CHEMISTRY & BLOOD GA S ORDERABLES Final Result Performing Organization Address City/[facility]/ZIP Co de Phone Number [facility] [address] [place] [address] documented in this encounter Visit Diagnoses Not on filedocumented in this encounter Care Teams Eyewear Consultant Relationship Specialty Start Date End Date Genet Sauer MD [address] [place] [id number] PCP - General 09/19/12 documented as of this encounter
--- OUTSIDE RECORDS SUMMARY | 2024-03-29 08:16 | XMS_ITS | Encounter Summary ---
Author Organization [facility] [place] [address] Care Team Providers Care Search And Rescue Officer Name Role Phone Belkys Bundy DO Primary Care Provider [phone] Encounter Details Date Type Department Care Team (Late st Contact Info) Description 01/01/2009 [place] [address] Macie Carreon MD DERMATOLOGY Social History Tobacco [...] 4:00 PM EDT Office [place] [address] Kira Thayer MD [facility] [place] [address] documented as of this encounter Procedures Procedure Name Priority Date/Time Associated Diagnosis Comments SURGICAL PATHOLOGY REPORT Routine 01/01/2009 3:08 PM EDT documented in this encounter Results * Surgical Pathology Report (01/01/2009 3:08 PM EDT) Surgical Pathology Report [id number] ? Location: 4M The signing pathologist has (i) examined the relevant preparation(s) for the specimen(s) and (ii) rendered or confirmed the diagnosis(es). . ?Pathology Surgical Pathology Final Report Clinical Information Specimen Submitted: A - Right posterior thigh, Shave (1): Clinical History: Right posterior thigh with 2-mm dark brown macule with dark brown center Clinical Diagnosis: Nevus R/O atypia Gross Description Labeled/Fixativ e: ? Labeled with the patient's name, formalin. Qty/Size/Weight : ?Single shave, 1.0 cm, bass-white skin with a central, ?0.2 x 0.2-cm, ovoid, bass-brown lesion. Sections/Proces sing: ??Inked. ??Quadrisected. ??(T1) aje/EJR Microscopic Description Slides reviewed, microscopic description not recorded. 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 CR-0 01/02/09 01/02/09 Verified by: ? Cindi Garvin MD ?Dermatopathol ogist ?(Electronic Signature) The attending pathologist whose signature appears on this report has reviewed all diagnostic slides and has edited the gross and/or microscopic portion of the report in rendering the final pathologic diagnosis. [facility] 01/01/2009 3:08 PM EDT Macie Carreon MD PATHOLOGY/CYTOLOG Y ORDERABLES Performing Organization Address City/State/[facility] Co tn Phone Number [facility] documented in this encounter Visit Diagnoses Not on filedocumented in this encounter Care Teams Search And Rescue Officer Relationship Specialty Start Date End Date Belkys Bundy DO [address] [facility] [place] [address] PCP - General Family Medicine 03/21/19 documented as of this encounter
--- OUTSIDE RECORDS SUMMARY | 2024-03-29 08:16 | XMS_ITS | Encounter Summary ---
Author Organization [facility] [place] [address] Care Team Providers Care Rn Bsn Name Role Phone Genet Sauer MD Primary Care Provider [phone] Encounter Details Date Type Department Care Team (Late st Contact Info) Description 06/07/2012 Orders [place] [address] Joao Interiano MD Social History Tobacco Use [...] 4:00 PM EDT Office [place] [address] Kira Thayer MD [facility] [place] [address] Pending Results Name Type Priority Associated Diagnoses Date /Time Film Library- Storage only DX Chest Imaging Routine 06/07/2012 4:19 PM EST documented as of this encounter Visit Diagnoses Not on filedocumented in this encounter Care Teams Rn Bsn Relationship Specialty Start Date End Date Genet Sauer MD [facility] [address] [place] [address] PCP - General 09/11/12 06/18/13 documented as of this encounter
--- OUTSIDE RECORDS SUMMARY | 2024-03-29 08:16 | XMS_ITS | Encounter Summary ---
Author Organization [facility] [place] [address] Care Team Providers Care Bottom Presser Name Role Phone Belkys Bundy DO Primary Care Provider [phone] Encounter Details Date Type Department Care Team (Late st Contact Info) Description 12/11/2008 [place] [address] Macie Carreon MD DERMATOLOGY Social History Tobacco [...] 4:00 PM EDT [place] [address] Kira Thayer MD [facility] [place] [address] documented as of this encounter Procedures Procedure Name Priority Date/Time Associated Diagnosis Comments SURGICAL PATHOLOGY REPORT Routine 12/11/2008 3:44 PM EDT documented in this encounter Results * Surgical Pathology Report (12/11/2008 3:44 PM EDT) Pathologist [facility] Surgical Pathology Report [id number] ? Location: 4M The signing pathologist has (i) examined the relevant preparation(s) for the specimen(s) and (ii) rendered or confirmed the diagnosis(es). . ?Pathology Surgical Pathology Final Report Clinical Information Specimen Submitted: A - Central upper back, 8mm Punch (1): Clinical History: 38-yo woman with red hair, freckles, fair skin and 6 mm brown, irregular papule with erythema and areas of regression, branched streak on dermoscopy. ??Central upper back. Clinical Diagnosis: Melanoma vs dysplastic nevus Gross Description Labeled/Fixative: ? Labeled with the patient's name and medical ?record number only, formalin. Qty/Size/Weight: ?Single punch, 0.8 cm, not oriented. ??[place] and ?glistening with a central, 0.5 x 0.3 cm, irregularly-bordere d, red-brown, finely granular macule. Sections/Processing : ??The surgical margin is inked black. ?Quadrisected. ??(T1) ??vms/SHB Microscopic Description Slides reviewed, microscopic description not recorded. 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 CR-0 Dictated by: ?? Nick Perdomo MD ? Dermatopathology Fellow As the attending physician, I attest that I examined the histologic slides, and confirm Dr. Nick Perdomo's diagnosis. 12/12/08 [facility] 12/13/08 Verified by: ? Brian Pinzon MD ?Dermatopathologis t ?(Electronic Signature) The attending pathologist whose signature appears on this report has reviewed all diagnostic slides and has edited the gross and/or microscopic portion of the report in rendering the final pathologic diagnosis. NICHOLAS GREENBERG 12/11/2008 3:44 PM EDT Macie Carreon MD PATHOLOGY/CYTOLOG Y ORDERABLES Performing Organization Address City/State/[facility] Co de Phone Number NICHOLAS GREENBERG documented in this encounter Visit Diagnoses Not on filedocumented in this encounter Care Teams Bottom Presser Relationship Specialty Start Date End Date Belkys Bundy DO [address] [place] [address] PCP - General Family Medicine 03/21/19 documented as of this encounter
--- OUTSIDE RECORDS SUMMARY | 2024-03-29 08:16 | XMS_ITS | Encounter Summary ---
Author Organization [facility] [place] [address] Care Team Providers Care Buncher Machine Name Role Phone Jessie Dover Senait MARCELINO Primary Care Provider [phone] Encounter Details Date Type Department Care Team (Late st Contact Info) Description 07/11/2014 [place] [address] Saad Chang Jr., MD [facility] [place] [address] Social History Tobacco Use Types Packs/Day Years [...] 4:00 PM EDT [place] [address] Kira Thayer MD [facility] [place] [address] documented as of this encounter Procedures Procedure Name Priority Date/Time Associated Diagnosis Comments FILM LIBRARY STORAGE ONLY DX CHEST Routine 07/11/2014 9:43 PM EDT documented in this encounter Results * Film Library- Storage only DX Chest (07/11/2014 9:43 PM EDT) Anatomical Region Laterality Modality Other 07/11/2014 9:43 PM EDT Narrative 08/05/2014 9:44 PM EDT This is a Non-reportable exam Procedure Note ELHAM, UNSIGNED REPORT - 08/05/2014 This is a Non-reportable exam Saad Chang Jr., MD IMG FILM LIBRARY O RDERABLES documented in this encounter Visit Diagnoses Not on filedocumented in this encounter Care Teams Buncher Machine Relationship Specialty Start Date End Date Jessie [place] APRN PCP - General 06/19/13 08/29/18 documented as of this encounter
--- OUTSIDE RECORDS SUMMARY | 2024-03-29 08:16 | XMS_ITS | Encounter Summary ---
Author Organization [facility] [place] [address] Care Team Providers Care Health Administrator Name Role Phone PineJessie beckham Senait MARCELINO Primary Care Provider [phone] Reason for Visit * Reason Comments Referral Encounter Details Date Type Department Care Team (Late st Contact Info) Description 06/19/2013 2:30 PM EDT Office [place] [address] Daryl Hurt MD [facility] [place] [address] Lung nodule (Primary Dx); COPD (chronic obstructive pulmonary disease); Smoking; Hypoxemia Discharge Disposition: Home Social History Tobacco Use [...] Sign Reading Time Taken Comments Blood Pressure 111/79 06/19/2013 1:58 PM EDT Pulse 102 06/19/2013 1:58 PM EDT Temperature - - Respiratory Rate 18 06/19/2013 1:58 PM EDT Oxygen Saturation 94% 06/19/2013 1:58 PM EDT Inhaled Oxygen Concentration - - Weight 59.4 kg (131 lb) 06/19/2013 1:58 PM EDT Height 163.8 cm (5' 4.5) 06/19/2013 1:58 PM EDT Body Mass Index 22.14 06/19/2013 1:58 PM EDT documented in this encounter Progress Notes * Daryl Hurt MD - 06/19/2013 3:44 PM EDT Pulmonary Attending Patient seen and examined; data and radiographic studies reviewed. My findings agree with those outlined by Dr. Jiménez, whose note reflects our jointly formulated plan of care. There are 2 issues: First, she has early onset very severe COPD; workup for A1AT reportedly negative. We emphasized the importance of smoking cessation and discussed strategies for success. Second, she has a 7-8 mm, PET-negative RUL nodule. She told us she wants it out, but we discussedthe fact that there is fairly high likelihood that the nodule is benign, and she's a high-risk surgical candidate given her very severe COPD. This should be followed to assure lack of growth. She'll decide if she wants follow-up imaging to be done here or at [facility]. * Woo Jiménez MD - 06/19/2013 10:48 AM EDT [facility] Section of Pulmonary and Critical Care Medicine Date of Encounter: 06/19/2013 Location: Office Referring Provider: Daryl Hurt Md [facility] [place] [address] C/C: Lung nodule HPI: 42 y/o female seen for recently discovered lung nodule. As per the patient she had COPD exacerbation for which she was admitted at [facility] in 01/2013. She was in hospital for about 4 days followingwhich she was discharged home on oxygen. She was not intubated during that visit. During that admission they found her to have a nodule in her lung. She was seen by pulmonary at [facility] and was told notto work due to her breathing issues. She was told to be followed up with serial scan for the lung nodule. She also recommend quitting smoking for her to be considered for lung transplant. She was notsatisfied with that and wanted to be seen elsewhere. She is using oxygen at 2L on exertion/sleep but not when resting. She does get SOB on minimal exertion (like changing clothes, etc). She does cough on chronic basis with brownish to yellow phlegm. She denies any fever/chills. She does have her mother with cold but no other sick contacts. She deniesany recent travel. She denies hemoptysis or night sweats. Her appetite is well. She denies any weight loss. Overall energy level is fair. She denies any N/V/D or abdominal pain. She denies any dysuria, hematuria, or frequency. She deniesany recent passing out or seizures. However, she does feel light headed some times. She does not have any myalgia/arthralgia or back pain issues. She denies any easy bleeding or bruisability. She didhave lumps removed from the breast while ago, couple of times, both of which were normal. Past Medical History: Past Medical History Diagnosis Date ??? COPD (chronic obstructive pulmonary disease) Past Surgical History: Past Surgical History Procedure Date ??? Ectopic surgery ??? Hysterectomy ??? Foot surgery 2010 ??? Breast lumpectomy Social History: History Social History ??? Marital Status: Spouse Name: N/A Number of Children: N/A ??? Years of Education: N/A Occupational History ??? Not on file. Social History Main Topics ??? Smoking status: Current Every Day Smoker -- 2.0 packs/day for 15 years ??? Smokeless tobacco: Not on file ??? Alcohol Use: Yes Comment: rare drink, one drink every few months ??? Drug Use: No ??? Sexually Active: Not on file Other Topics Concern ??? Blood Transfusions No ??? Service No Social History Narrative Lives with her mother. 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 Family History: Father alive 70 yrs and has HTN, AF, COPD, and was a smoker. Mother alive at 68 yrs and has HTN, CAD, COPD, and is a smoker. 1 sister and 1 brother alive and doing well. Both of them have thyroid issues and sister also has asthma. She does have paternal uncles/aunts with lung cancer. Current Medications: Outpatient Prescriptions Prior to Visit Medication Sig Dispense Refill ??? PARoxetine (PAXIL) 20 mg tablet Take 20 mg by mouth every morning. ??? fluticasone-salmeterol (ADVAIR) 500-50 mcg/dose diskus inhaler Inhale 1 puff into the lungs every 12 hours. ??? albuterol (PROVENTIL HFA;VENTOLIN HFA) 90 mcg/actuation inhaler Inhale 2 puffs into the lungs every 4 hours as needed. Use with spacer ??? tiotropium (SPIRIVA WITH HANDIHALER) 18 mcg inhalation capsule Last reviewed on 06/19/2013 2:06 PM by Makeda Sanon LPN Adverse Drug Reactions: Allergies Allergen Reactions ??? Zoloft (Sertraline) Other (See Comments) agitation ??? Vancomycin Rash Review of Systems: As in HPI. Rest is all wnl/negative. Physical Examination: BP 111/79 Pulse 102 Resp 18 Ht 163.8 cm (5' 4.5) Wt 59.421 kg (131 lb) BMI 22.15 kg/m2 SpO2 94% HEENT: NC and AT, nasal mucosa erythematous, no oropharyngeal exudates, dentures in upper jaw NECK: supple, no cervical lynphadenopathy GEN: sitting in chair comfortably, able to talk in full sentence DRIER OPERATOR HELPER: A and OX3, no focal motor deficits CVS: S1 S2 +, RRR, no m/r/g RESP: fair air movement with mild wheezing on expiration on auscultation GI/ABD: soft, non tender, BS+ve, no inguinal lymph adenopathy MUSCULO: normal ROM, no joint swelling SKIN: no rash, warm, dry IMAGING: CT CHEST 06/01/13: RUL nodule ~8 mm in size. No LAD. PET SCAN 01/09/13: The right upper lobe pulmonary nodule is not hypermetabolic. This finding argues for a benign process. SPIROMETRY: 06/21/12 - FEV1/FVC 34, FEV1 0.87 (28%), FVC 2.53 (68%), +ve BD response, TLC 5.94 (117%), RV 3.28 (203%), RV/TLC 55 (178%), Dsb 14.46 (59%) 06/19/13 - FEV1/FVC 37, FEV1 0.94 (31%), FVC 2.55 (68%), Dsb 11.97 (50%) O2 sat at rest 94% on RA; O2 sat at ambulation 92% on RA Impression / Plan of Care: 1. RUL nodule: PET negative nodule with no significant change in nodule size on CT CHEST and when the PET was done. There is no significant lymphadenopathy noted on imaging nor on exam. She will needto be followed up with serial CHEST CT imaging. One caveat with it being PET negative is that it might be too small for it to be picked up on PET. It does however suggest that it is not very hypermetabolic. We should therefore as mentioned above do serial imaging as per for individuals with >8 mm nodule among high risk patients. She will need a CT scan in 6 months from her 05/2012 CT CHEST. This can be done at [facility] or it can be done here at [facility]. Smoking cessation as discussed in #4. 2. COPD: very severe obstruction with moderate impairment in diffusion consistent emphysema. She pasha optimal medications for COPD. Smoking cessation as discussed below. 3. Hypoxemia: secondary to #2. Goal O2 sat >88% in the absence pHTN. Based on O2 sat she does not need oxygen, for this she was told to monitor it at home with pulse oxymetry. 4. Smoking: she is trying to quit and has been seeing smoking cessation program at [facility]. We did talk about it detail on today's visit and recommended cessation as the best thing she can do for herself. She can follow up with her golf manager at [facility] or with us at [facility]. As this time no follow up appointment has been scheduled. Patient seen and examined with Dr Hurt. documented in this encounter Plan of Treatment Upcoming Encounters Date Type Department Care Team (Late st Contact Info) Description 08/27/2024 4:00 PM EDT Office [place] [address] Kira Thayer MD [facility] [place] [address] documented as of this encounter Visit Diagnoses Diagnosis Lung nodule- Primary Solitary pulmonary nodule COPD (chronic obstructive pulmonary disease) Chronic airway obstruction, not elsewhere classified Smoking Tobacco use disorder Hypoxemia documented in this encounter Care Teams Health Administrator Relationship Specialty Start Date End Date Jessie Dover APRN PCP - General 06/19/13 08/29/18 documented as of this encounter
--- OUTSIDE RECORDS SUMMARY | 2024-03-29 08:16 | XMS_ITS | Encounter Summary ---
Author Organization [facility] [place] [address] Care Team Providers Care Sieve Repairer Name Role Phone Jessie Dover RYLAND Primary Care Provider [phone] Encounter Details Date Type Department Care Team (Late st Contact Info) Description 08/13/2014 Orders [place] [phone] Saad Chang Jr., MD [facility] [place] [address] Social History Tobacco Use Types Packs/Day Years [...] 4:00 PM EDT Office [place] [phone] Kira Thayer MD [facility] [place] [address] documented as of this encounter Visit Diagnoses Not on filedocumented in this encounter Care Teams Sieve Repairer Relationship Specialty Start Date End Date Jessie Dover APRN PCP - General 06/19/13 08/29/18 documented as of this encounter
--- OUTSIDE RECORDS SUMMARY | 2024-03-29 08:16 | XMS_ITS | Encounter Summary ---
Author Organization [facility] [place] [address] Care Team Providers Care Callisthenics Instructor Name Role Phone Genet Sauer MD Primary Care Provider [phone] Encounter Details Date Type Department Care Team (Late st Contact Info) Description 02/03/2012 Orders [place] [phone] Joao Interiano MD Social History Tobacco Use [...] 4:00 PM EDT [place] [address] Kira Thayer MD [facility] [place] [address] Pending Results Name Type Priority Associated Diagnoses Date /Time Film Library- Storage only DX Abdomen Imaging Routine 02/03/2012 4:29 PM EDT documented as of this encounter Visit Diagnoses Not on filedocumented in this encounter Care Teams Callisthenics Instructor Relationship Specialty Start Date End Date Genet Sauer MD [facility] [address] [place] [address] [place] [address] PCP - General 09/11/12 06/18/13 documented as of this encounter
--- OUTSIDE RECORDS SUMMARY | 2024-03-29 08:16 | XMS_ITS | Encounter Summary ---
Author Organization [facility] [place] [address] Care Team Providers Care Vegetable Farm Worker Name Role Phone Genet Sauer MD Primary Care Provider [phone] Encounter Details Date Type Department Care Team (Late st Contact Info) Description 01/12/2010 Orders [place] [address] Joao Interiano MD Social History Tobacco Use [...] 4:00 PM EDT Office [place] [address] Kira Thayer MD [facility] [place] [address] Pending Results Name Type Priority Associated Diagnoses Date /Time Film Library- Storage only DX Chest Imaging Routine 01/12/2010 4:51 PM EDT documented as of this encounter Visit Diagnoses Not on filedocumented in this encounter Care Teams Vegetable Farm Worker Relationship Specialty Start Date End Date Genet Sauer MD [facility] [address] [place] [address] [place] [address] PCP - General 09/11/12 06/18/13 documented as of this encounter
--- OUTSIDE RECORDS SUMMARY | 2024-03-29 08:16 | XMS_ITS | Encounter Summary ---
Author Organization [facility] [place] [address] Care Team Providers Care Clerical Office Worker Name Role Phone Jessie Dover RYLAND Primary Care Provider [phone] Encounter Details Date Type Department Care Team (Late st Contact Info) Description 06/19/2013 [place] [address] Daryl Hurt MD [facility] [place] [address] Social History Tobacco Use Types Packs/Day Years [...] encounter Miscellaneous Notes * Telephone Encounter - Maya Orona - 06/19/2013 8:29 AM EDT PLEASE SIGN ORDER documented in this encounter Plan of Treatment Upcoming Encounters Date Type Department Care Team (Late st Contact Info) Description 08/27/2024 4:00 PM EDT [place] [address] Kira Thayer MD [facility] [place] [address] documented as of this encounter Results * Pulmonary Function Testing (06/22/2013 4:39 PM EDT) Narrative Ehsan Acosta MD - 06/22/2013 4:39 PM EDT Ehsan Acosta MD ? 06/22/2013 ??4:39 PM Forced vital capacity is low. FEV1 is low. The ratio is low. Diffusing capacity is low. Spirometry shows severe obstructive disease. It also may suggest concurrent restriction or air trapping. Suggest lung volumes clinically indicated. Diffusing capacity is low. This latter finding may be seen pulmonary vessels are disease, interstitial is, or anemia. Procedure Note Ehsan Acosta MD - 06/22/2013 4:39 PM EDT Forced vital capacity is low. FEV1 is low. The ratio is low. Diffusingcapacity is low. Spirometry shows severe obstructive disease. It also may suggestconcurrent restriction or air trapping. Suggest lung volumes clinicallyindicated. Diffusing capacity is low. This latter finding may be seenpulmonary vessels are disease, interstitial is, or anemia. Daryl Hurt MD PFT ORDERABLES documented in this encounter Visit Diagnoses Diagnosis Acute exacerbation of chronic obstructive airways disease- Primary Obstructive chronic bronchitis with exacerbation Acute exacerbation of chronic obstructive airways disease- Primary Obstructive chronic bronchitis with exacerbation documented in this encounter Care Teams Clerical Office Worker Relationship Specialty Start Date End Date Jessie Dover APRN PCP - General 06/19/13 08/29/18 documented as of this encounter
--- OUTSIDE RECORDS SUMMARY | 2024-03-29 08:16 | XMS_ITS | Encounter Summary ---
Author Organization [facility] [place] [address] Care Team Providers Care Knife Setter Name Role Phone Genet Sauer MD Primary Care Provider [phone] Encounter Details Date Type Department Care Team (Late st Contact Info) Description 06/14/2013 External Results XRay at [address] [place] [phone] Provider, Scanning Social History Tobacco Use Types Packs/Day Years [...] 4:00 PM EDT Office Visit Pulmonology at [facility] [place] [address] Kira Thayer MD [facility] [place] [address] documented as of this encounter Procedures Procedure Name Priority Date/Time Associated Diagnosis Comments CT SCAN (SCAN) Routine 06/01/2013 DIAGNOSTIC RADIOLOGY SCAN Routine 12/31/2012 DIAGNOSTIC RADIOLOGY SCAN Routine 02/03/2012 CT SCAN (SCAN) Routine 11/28/2011 DIAGNOSTIC RADIOLOGY SCAN Routine 08/12/2011 DIAGNOSTIC RADIOLOGY SCAN Routine 01/09/2011 DIAGNOSTIC RADIOLOGY SCAN Routine 11/11/2010 DIAGNOSTIC RADIOLOGY SCAN Routine 01/12/2010 DIAGNOSTIC RADIOLOGY SCAN Routine 08/23/2009 DIAGNOSTIC RADIOLOGY SCAN Routine 04/30/2009 DIAGNOSTIC RADIOLOGY SCAN Routine 10/07/2008 documented in this encounter Results * Scan Doc: CT Scan (06/01/2013) Anatomical Region Laterality Modality Other Scanning Provider MEDIA MGR SCAN EXT O RDR/RSLT * Scan Doc: Diagnostic Radiology (12/31/2012) Anatomical Region Laterality Modality Other Scanning Provider MEDIA MGR SCAN EXT O RDR/RSLT * Scan Doc: Diagnostic Radiology (02/03/2012) Anatomical Region Laterality Modality Other Scanning Provider MEDIA MGR SCAN EXT O RDR/RSLT * Scan Doc: CT Scan (11/28/2011) Anatomical Region Laterality Modality Other Scanning Provider MEDIA MGR SCAN EXT O RDR/RSLT * Scan Doc: Diagnostic Radiology (08/12/2011) Anatomical Region Laterality Modality Other Scanning Provider MEDIA MGR SCAN EXT O RDR/RSLT * Scan Doc: Diagnostic Radiology (01/09/2011) Anatomical Region Laterality Modality Other Scanning Provider MEDIA MGR SCAN EXT O RDR/RSLT * Scan Doc: Diagnostic Radiology (11/11/2010) Anatomical Region Laterality Modality Other Scanning Provider MEDIA MGR SCAN EXT O RDR/RSLT * Scan Doc: Diagnostic Radiology (01/12/2010) Anatomical Region Laterality Modality Other Scanning Provider MEDIA MGR SCAN EXT O RDR/RSLT * Scan Doc: Diagnostic Radiology (08/23/2009) Anatomical Region Laterality Modality Other Scanning Provider MEDIA MGR SCAN EXT O RDR/RSLT * Scan Doc: Diagnostic Radiology (04/30/2009) Anatomical Region Laterality Modality Other Scanning Provider MEDIA MGR SCAN EXT O RDR/RSLT * Scan Doc: Diagnostic Radiology (10/07/2008) Anatomical Region Laterality Modality Other Scanning Provider MEDIA MGR SCAN EXT O RDR/RSLT documented in this encounter Visit Diagnoses Not on filedocumented in this encounter Care Teams Knife Setter Relationship Specialty Start Date End Date Genet Sauer MD [facility] [address] [place] [address] [place] [address] PCP - General 09/11/12 06/18/13 documented as of this encounter
--- OUTSIDE RECORDS SUMMARY | 2024-03-29 08:16 | XMS_ITS | Encounter Summary ---
Author Organization [facility] [place] [address] Care Team Providers Care Pot Reliner Name Role Phone Genet Sauer MD Primary Care Provider [phone] Encounter Details Date Type Department Care Team (Late st Contact Info) Description 04/30/2009 Orders [place] [address] Joao Interiano MD Social History Tobacco Use [...] 4:00 PM EDT [place] [address] Kira Thayer MD [facility] [place] [address] Pending Results Name Type Priority Associated Diagnoses Date /Time Film Library- Storage only DX Chest Imaging Routine 04/30/2009 4:57 PM EST documented as of this encounter Visit Diagnoses Not on filedocumented in this encounter Care Teams Pot Reliner Relationship Specialty Start Date End Date Genet Sauer MD [facility] [address] [place] [address] [address] [place] [id number] PCP - General 09/11/12 06/18/13 documented as of this encounter
--- OUTSIDE RECORDS SUMMARY | 2024-03-29 08:16 | XMS_ITS | Encounter Summary ---
Author Organization [facility] [place] [address] Care Team Providers Care Head Machine Feeder Name Role Phone Jessie Dover Senait MARCELINO Primary Care Provider [phone] Encounter Details Date Type Department Care Team (Late st Contact Info) Description 05/03/2014 [place] [phone] Saad Chang Jr., MD [facility] [place] [address] Social History Tobacco Use Types Packs/Day Years [...] 4:00 PM EDT Office [place] [address] Kira Thayer MD [facility] [place] [address] documented as of this encounter Procedures Procedure Name Priority Date/Time Associated Diagnosis Comments FILM LIBRARY STORAGE ONLY DX CHEST Routine 05/03/2014 9:44 PM EST documented in this encounter Results * Film Library- Storage only DX Chest (05/03/2014 9:44 PM EST) Anatomical Region Laterality Modality Other 05/03/2014 9:44 PM EST Narrative 08/05/2014 9:44 PM EDT This is a Non-reportable exam Procedure Note ELHAM, UNSIGNED REPORT - 08/05/2014 This is a Non-reportable exam Saad Chang Jr., MD IMG FILM LIBRARY O RDERABLES documented in this encounter Visit Diagnoses Not on filedocumented in this encounter Care Teams Head Machine Feeder Relationship Specialty Start Date End Date Jessie Dover APRN PCP - General 06/19/13 08/29/18 documented as of this encounter
--- OUTSIDE RECORDS SUMMARY | 2024-03-29 08:16 | XMS_ITS | Encounter Summary ---
Author Organization [facility] [place] [address] Care Team Providers Care Contact Center Manager Name Role Phone Cathy Wu RYLAND Primary Care Provider [phone] Encounter Details Date Type Department Care Team (Late st Contact Info) Description 08/25/2012 Orders [place] [address] Jennifer Burroughs APRN [facility] [place] [address] Social History Tobacco Use Types Packs/Day Years [...] 4:00 PM EDT [place] [address] Kira Thayer MD [facility] [address] documented as of this encounter Procedures Procedure Name Priority Date/Time Associated Diagnosis Comments FILM LIBRARY STORAGE ONLY CT ABDOMEN AND PELVIS Routine 08/25/2012 9:15 AM EDT documented in this encounter Results * Film Library- Storage only CT abdomen & pelvis (08/25/2012 9:15 AM EDT) Anatomical Region Laterality Modality Abdomen, Pelvis Other 08/25/2012 9:15 AM EDT Narrative 05/14/2013 11:35 PM EST This is a non-reportable exam. Procedure Note Mono Tate - 05/14/2013 This is a non-reportable exam. Jennifer Burroughs APRN IMG FILM LIBRARY ORD ERABLES documented in this encounter Visit Diagnoses Not on filedocumented in this encounter Care Teams Contact Center Manager Relationship Specialty Start Date End Date Cathy Wu APRN PCP - General 08/27/11 09/10/12 documented as of this encounter
--- OUTSIDE RECORDS SUMMARY | 2024-03-29 08:16 | XMS_ITS | Encounter Summary ---
Author Organization [facility] [place] [address] Care Team Providers Care Auto Machinist Name Role Phone Genet Sauer MD Primary Care Provider [phone] Encounter Details Date Type Department Care Team (Late st Contact Info) Description 08/23/2009 Orders [place] [address] Joao Interiano MD Social History Tobacco Use [...] 4:00 PM EDT Office [place] [address] Kira Thayer MD [facility] [place] [address] Pending Results Name Type Priority Associated Diagnoses Date /Time Film Library- Storage only DX Chest Imaging Routine 08/23/2009 4:55 PM EDT documented as of this encounter Visit Diagnoses Not on filedocumented in this encounter Care Teams Auto Machinist Relationship Specialty Start Date End Date Genet Sauer MD [facility] [address] [place] [address] [place] [address] PCP - General 09/11/12 06/18/13 documented as of this encounter
--- OUTSIDE RECORDS SUMMARY | 2024-03-29 08:16 | XMS_ITS | Encounter Summary ---
Author Organization [facility] [place] [address] Care Team Providers Care Field Support Representative Name Role Phone Jessie Dover Senait MARCELINO Primary Care Provider [phone] Encounter Details Date Type Department Care Team (Late st Contact Info) Description 07/18/2014 [place] [phone] Saad Chang Jr., MD [facility] [place] [address] Social History Tobacco Use Types Packs/Day Years [...] 4:00 PM EDT Office [place] [address] Kira Thayer MD [facility] [place] [address] documented as of this encounter Procedures Procedure Name Priority Date/Time Associated Diagnosis Comments FILM LIBRARY STORAGE ONLY ULTRASOUND STUDY Routine 07/18/2014 9:43 PM EDT documented in this encounter Results * Film Library- Storage only Ultrasound Study (07/18/2014 9:43 PM EDT) Anatomical Region Laterality Modality Other 07/18/2014 9:43 PM EDT Narrative 08/05/2014 9:44 PM EDT This is a Non-reportable exam Procedure Note ELHAM, UNSIGNED REPORT - 08/05/2014 This is a Non-reportable exam Saad Chang Jr., MD IMG FILM LIBRARY O RDERABLES documented in this encounter Visit Diagnoses Not on filedocumented in this encounter Care Teams Field Support Representative Relationship Specialty Start Date End Date Jessie Dover APRN PCP - General 06/19/13 08/29/18 documented as of this encounter
--- OUTSIDE RECORDS SUMMARY | 2024-03-29 08:16 | XMS_ITS | Encounter Summary ---
Author Organization [facility] [place] [address] Care Team Providers Care Certified Nurses' Aide Name Role Phone [place]ie [place] Senait MARCELINO Primary Care Provider [phone] Reason for Visit * Reason Comments Nephrolithiasis Encounter Details Date Type Department Care Team (Latest Contact Info) Description 08/13/2014 3:20 PM EDT [place] [address] Kaiser Chang Jr., MD [facility] [place] [address] Recurrent nephrolithiasis Discharge Disposition: Home Social History Tobacco Use [...] Sign Reading Time Taken Comments Blood Pressure 89/70 08/13/2014 3:12 PM EDT Pulse 78 08/13/2014 3:12 PM EDT Temperature 36.3 ??C (97.4 ??F) 08/13/2014 3 :12 PM EDT Respiratory Rate 18 08/13/2014 3:12 PM EDT Oxygen Saturation 98% 08/13/2014 3:1 2 PM EDT O2 on 2L via NC Inhaled Oxygen Concentration - - Weight 61.7 kg (136 lb) 08/13/2014 3:12 PM EDT Height 162.6 cm (5' 4) 08/13/2014 3:12 PM EDT Body Mass Index 23.34 08/13/2014 3:12 PM EDT documented in this encounter Progress Notes * Kaiser Chang Jr., MD - 08/13/2014 6:00 PM EDT I saw and examined Jessie Sanchez with Dr. Schroeder and have independently reviewed her renal ultrasound.I agree with history, exam, impression, and plan as noted. Plan follow up CT to better assess stoneburden and location, as her pain is atypical for renal stone. * Kendell Schroeder - 08/13/2014 3:20 PM EDT Chief Complaint: Urolithiasis History of Present Illness: Jessie Sanchez is a 43 y.o. female who presents with with a 3 year history of suspected urolithiasis. She had dull back pain on the right side, they found an 8mm stone then. She failed SWL and then underwent URS with Dr. Evelin guevara. The stone composition is unknown. She states that for the last year, she has had constant right low back pain, 6/10 in severity, feels like someone is pushing on her back. Because of this, she had [facility] and thissuggested an 8 mm non-obstructing stone in the inferior pole of the right kidney without any associated hydronephrosis. She noted right flank pain without radiation to the abdomen. She has had no nausea and no diaphoresis. There has been no fever. Risk factors for urolithiasis: cola soft drink intake. Does barely drink one glass of water. Review of Systems Constitutional: negative fever, +chills, no unexpected weight change. +fatigue HENT: Negative. Eyes: Negative. Respiratory: copd, 2l of oxygen Cardiovascular: Negative. Gastrointestinal: negative for abdominal pain. +constipation Genitourinary: positive for flank pain. Negative + urgency and frequency. Musculoskeletal: negative for back pain. Negative for arthralgias. Neurological: Negative for dizziness and numbness. Hematological: Negative for adenopathy. Does not bruise/bleed easily. Active Medical Issues: Patient Active Problem List Diagnosis Code ??? Pruritus 698.9 Medications: Current Outpatient Prescriptions on File Prior to Visit Medication Sig Dispense Refill ??? morphine (MSIR) 15 mg tablet ??? IBUPROFEN ORAL ??? DILTiazem (CARDIZEM) 30 mg tablet ??? PARoxetine (PAXIL) 20 mg tablet Take 20 mg by mouth every morning. ??? fluticasone-salmeterol (ADVAIR) 500-50 mcg/dose diskus inhaler Inhale 1 puff into the lungs every 12 hours. ??? albuterol (PROVENTIL HFA;VENTOLIN HFA) 90 mcg/actuation inhaler Inhale 2 puffs into the lungs every 4 hours as needed. Use with spacer ??? tiotropium (SPIRIVA WITH HANDIHALER) 18 mcg inhalation capsule No current facility-administered medications on file prior to visit. Omeprazole Trazodone Montelukast Bupropion colace Allergies: Allergies Allergen Reactions ??? Zoloft [Sertraline] Other (See Comments) agitation ??? 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 Examination of the hands, head neck, eyes ears nose and throat is normal. Decreased breath sounds Heart sounds I and II are normal without murmurs or added sounds. The abdomen is benign. : The bladder is non-palpable. There is no CVA/flank tenderness Examination of the extremities and neurological examination is grossly normal. U/A: negative Imaging studies: I independently reviewed the ultrasound from [facility]. This reveals no hydronephrosis,possibly a stone in the lower pole of the right kidney, with faint possible posterior shadowing. Impression: Possible urolithiasis, but etiology of chronic right flank pain is unclear Plan: We discussed that given the finding on ultrasound. We discussed that as the stone is non-obstructing it may be less likely to account for her pain. We discussed pros/cons of proceeding with surgical intervention and particular concern that if stone is not source of her pain that surgical intervention will not improve her pain and may in fact worsen it. We discussed role of further imaging to better characterize this stone. She would like to proceed with imaging and have ordered a non contrast CT scan of the abdomen and pelvis. We will try to obtain this as soon as possible, inform patient with the results and discuss her options with her then. If it cannot be performed today, she would prefer to return for CT and follow up on another day. We reviewed at length dietary modifications for those with stones. We specifically discussed the role of a low oxalate, low sodium diet with increased hydration, targeting 2 liters urine output daily. We recommended she reduces her coke intake and replace it with water STAFF ADDENDUM: I saw and examined Jessie Sanchez with Dr. Schroeder, have independently reviewed her renal u/s, and concur with history, exam, impression, and plan as noted and amended above. Kaiser Chang Jr., MD documented in this encounter Miscellaneous Notes * Addendum Note - Kaiser Chang Jr., MD - 08/13/2014 6:19 PM EDTAddended by: KAISER CHANG on: 08/13/2014 06:19 PM Modules accepted: Level of Service documented in this encounter Plan of Treatment Upcoming Encounters Date Type Department Care Team (Late st Contact Info) Description 08/27/2024 4:00 PM EDT Office [place] [phone] Kira Thayer MD [facility] [place] [address] documented as of this encounter Results * CT abdomen & pelvis WO contrast (08/21/2014 7:42 AM EDT) Anatomical Region Laterality Modality Abdomen, Pelvis Computed Tomogra phy 08/21/2014 7:42 AM EDT Impressions 08/21/2014 8:16 AM EDT IMPRESSION: No ??urinary tract calculi. Narrative 08/21/2014 8:16 AM EDT EXAMINATION: CT Abdomen / Pelvis Without Contrast CLINICAL HISTORY: ? right kidney stone right flank pain TECHNIQUE: Helical CT of the abdomen and pelvis was performed without the use of intravenous contrast COMPARISON: CT from a PET/CT dated January 09, 2013 FINDINGS: Right kidney and ureter: Calculi: None Obstruction/hydronephrosis: None Left kidney and ureter: Calculi: None Obstruction/hydronephrosis: None Urinary bladder: Calculi: None This examination is limited for the evaluation of solid organs and vasculature structures due to the lack of intravenous contrast. Unenhanced images of the liver, spleen, pancreas, and adrenal glands are within normal limits. No lymphadenopathy. No ??free fluid in the abdomen or pelvis. ??No bowel dilatation or inflammatory changes. The terminal ileum is normal. Specifically, the right lower quadrant is unremarkable. Osseous structures: No suspicious lesions. Procedure Note Bryce Cervantes MD - 08/21/2014 EXAMINATION: CT Abdomen / Pelvis Without Contrast CLINICAL HISTORY: ? right kidney stone right flank pain TECHNIQUE: Helical CT of the abdomen and pelvis was performed without theuse of intravenous contrast COMPARISON: CT from a PET/CT dated January 09, 2013 FINDINGS: Right kidney and ureter: Calculi: None Obstruction/hydronephrosis: None Left kidney and ureter: Calculi: None Obstruction/hydronephrosis: None Urinary bladder: Calculi: None This examination is limited for the evaluation of solid organs andvasculature structures due to the lack of intravenous contrast. Unenhanced images of the liver, spleen, pancreas, and adrenal glands arewithin normal limits. No lymphadenopathy. No free fluid in the abdomen or pelvis. No bowel dilatation orinflammatory changes. The terminal ileum is normal. Specifically, the right lowerquadrant is unremarkable. Osseous structures: No suspicious lesions. IMPRESSION IMPRESSION: No urinary tract calculi. Kaiser Chang Jr., MD IMG CT ORDERABLES documented in this encounter Visit Diagnoses Diagnosis Recurrent nephrolithiasis Calculus of kidney Recurrent nephrolithiasis Calculus of kidney documented in this encounter Care Teams Certified Nurses' Aide Relationship Specialty Start Date End Date Jessie Dover APRN PCP - General 06/19/13 08/29/18 documented as of this encounter
--- OUTSIDE RECORDS SUMMARY | 2024-03-29 08:16 | XMS_ITS | Referral Summary ---
Author Organization [facility] Address [address] [place] [address] Care Team Providers Care Assistant Pastry Chef Name Role Phone Genet Sauer MD Primary Care Provider [phone] Social History Tobacco Use Types Packs/Day Years Used Date Smoking Tobacco: Never Assessed Interpersonal Safety Answer Date Record ed Physically Hurt Never 11/11/2019 Verbally Threaten Not on file 11/11/2019 Comments Unknown Sex and Gender Information Value Date Recorded Sex Assigned at Not on file Legal Sex Female 18:42 EST Gender Identity Not on file Sexual Orientation Not on file Plan of Treatment Not on file Insurance MEDICARE ACO [place] Care Teams Assistant Pastry Chef Relationship Specialty Start Date End Date Genet Sauer MD [address] [place] [address] PCP - General 09/19/12
--- OUTSIDE RECORDS SUMMARY | 2024-03-29 08:16 | XMS_ITS | Encounter Summary ---
[place] [address] Care Team Providers Care Chamber Worker Name Role Phone Jazzmine Jessie Sapp APRN Primary Care Provider [phone] Encounter Details Date Type Department Care Team (Latest Contact Info) Description 08/21/2014 7:26 AM EDT - 08/21/2014 11:59 PM EDT Hospital [place] [address] Recurrent nephrolithiasis Social History Tobacco Use Types Packs/Day Years [...] Sig Dispensed Refills Start Date End Date omeprazole (PRILOSEC) 20 mg Capsule, Delayed Release(E.C.) Take 20 mg by mouth daily as needed. docusate sodium (COLACE) 100 mg Capsule Take 100 mg by mouth 3 times daily as needed for Constipation. buPROPion (WELLBUTRIN SR) 150 mg Tablet Sustained Release Take 150 mg by mouth 2 times daily. IBUPROFEN ORAL 05/28/2013 DILTiazem (CARDIZEM) 30 mg tablet 04/12/2013 ERYTHROMYCIN BASE (ERYTHROMYCIN ORAL) Take by mouth. 2021 predniSONE (DELTASONE) 50 mg Tablet Take 50 mg by mouth daily. 09/25/2018 morphine (MSIR) 15 mg tablet 06/07/2013 09/25/2018 PARoxetine (PAXIL) 20 mg tablet Take 20 [...] 4:00 PM EDT Office [place] [address] Kira Thayer MD [facility] [place] [address] documented as of this encounter Procedures Procedure Name Priority Date/Time Associated Diagnosis Comments CT ABDOMEN AND PELVIS WO CONTRAST Routine 08/21/2014 7:42 AM EDT Recurrent nephrolithiasis documented in this encounter Results * CT abdomen & [...] lesions. IMPRESSION IMPRESSION: No urinary tract calculi. Saad Chang Jr., MD IMG CT ORDERABLES documented in this encounter Visit Diagnoses Diagnosis Recurrent nephrolithiasis Calculus of kidney documented in this encounter Care Teams Chamber Worker Relationship Specialty Start Date End Date Jessie Dover APRN PCP - General 06/19/13 08/29/18 documented as of this encounter
--- OUTSIDE RECORDS SUMMARY | 2024-03-29 08:16 | XMS_ITS | Encounter Summary ---
Author Organization [facility] [place] [address] Care Team Providers Care Steeple Jack Name Role Phone Genet Davila MD Primary Care Provider Encounter Details Date Type Department Care Team (Latest Contact Info) Description 02/18/2011 2:59 PM EST - 02/18/2011 11:59 PM EST Hospital [place] [address] CLINIC, Genet Espino MD [address] [place] [address] [address] [place], [place] [id number] Discharge Disposition: Home Social History Tobacco Use Types Packs/Day Years Used Date Smoking Tobacco: Never Assessed Sex and Gender Information Value Date Recorded Sex Assigned at Female 06/09/2020 12:20 PM EST Gender Identity Not on file Sexual Orientation Straight 06/09/2020 12 :20 PM EST documented as of this encounter Medications at Time of Discharge Medication Sig Dispensed Refills Start Date End Date CIS Free Text Med - Albuterol 01/01/2009 09/11/2012 montelukast (SINGULAIR) 10 mg tablet 01/01/2009 09/11/2012 triamcinolone (KENALOG) 0.1 % ointment 1 Appl(s), Top, Twice daily 01/01/2009 09/11/2012 FLUTICASONE/SALMETEROL (ADVAIR HFA INHL) 01/01/2009 09/11/2012 folic acid (FOLVITE) 1 mg tablet 01/01/2009 09/11/2012 tiotropium (SPIRIVA WITH HANDIHALER) 18 mcg inhalation capsule 01/01/2009 documented as of this encounter Progress Notes * Jv Alberto RN - 02/16/2011 2:07 PM EST VIR MRI PRE-SEDATION ASSESSMENT NOTE NAME: Jessie Sanchez AGE: 40 y.o. : 1970 (home) [phone] (work) Female PCP SHANK STAPLER Genet DAVILA MD DATE OF CALL: 02/16/11 TIME OF CALL: 1425 PREVIOUS MRI SCAN? Yes other hospital SCHEDULED SCAN: MRA/MRI brain w/o [place] SUBJECTIVE: I just cant hold still and I freak out a little. ASSESSMENT: Appropriate for sedation. PLAN: Vallium 5 mg on arrival, may repeat. PRIOR SCAN DATE/S SEDATION TYPE SUCCESSFUL 02-18-11 MRI brain Valium 5 mg po x2 yes PT WILL ARRIVE 1 HR. BEFORE SCHEDULED SCAN AND HAVE A INTELLIGENCE AGENT AVAILABLE. PT STATED TO BARREL RIBS SOLDERER THAT THE SEDATION WAS EFFECTIVE FOR SCAN: Y N documented in this encounter Miscellaneous Notes * Miscellaneous - Provider, Scanning - 03/02/2011 9:12 AM EST documented in this encounter Plan of Treatment Upcoming Encounters Date Type Department Care Team (Late st Contact Info) Description 08/27/2024 4:00 PM EDT Office [place] [phone] Kira Thayer MD [facility] [place] [address] documented as of this encounter Visit Diagnoses Not on filedocumented in this encounter Administered Medications Inactive Administered Medications - up to 3 most recent administrations Medication Order MAR Action Action Date Dose Rate Site diaZEPam (VALIUM) tablet 5-10 mg 5-10 mg, Oral, ONCE, 1 dose, On Rosa 02/18/11 at 0730, Angio/IR (Day of Procedure), Routine Given 02/18/2011 4:30 PM EST 10 mg documented in this encounter Care Teams Steeple Jack Relationship Specialty Start Date End Date Genet Davila MD [facility] [address] [place] [address] [place] [address] PCP - General 03/03/10 08/26/11 documented as of this encounter
--- OUTSIDE RECORDS SUMMARY | 2024-03-29 08:16 | XMS_ITS | Encounter Summary ---
Author Organization [facility] [place] [address] Care Team Providers Care Grain Trimmer Name Role Phone Genet Sauer MD Primary Care Provider [phone] Encounter Details Date Type Department Care Team (Late st Contact Info) Description 12/21/2011 Orders [place] [address] Joao Interiano MD Social History Tobacco Use [...] 4:00 PM EDT [place] [address] Kira Thayer MD [facility] [place] [address] Pending Results Name Type Priority Associated Diagnoses Date /Time Film Library- Storage only DX Abdomen Imaging Routine 12/21/2011 4:31 PM EDT documented as of this encounter Visit Diagnoses Not on filedocumented in this encounter Care Teams Grain Trimmer Relationship Specialty Start Date End Date Genet Sauer MD [facility] [address] [place] [address] [place] [address] PCP - General 09/11/12 06/18/13 documented as of this encounter
--- OUTSIDE RECORDS SUMMARY | 2024-03-29 08:16 | XMS_ITS | Clinical Summary ---
Author Organization [facility] Address [address] [place] [address] Care Team Providers Care Fire Sprinkler Service Technician Name Role Phone Genet Sauer MD Primary Care Provider [phone] Social History Tobacco Use Types Packs/Day Years Used Date Smoking Tobacco: Never Assessed Interpersonal Safety Answer Date Record ed Physically Hurt Never 11/11/2019 Verbally Threaten Not on file 11/11/2019 Comments Unknown Sex and Gender Information Value Date Recorded Sex Assigned at Not on file Legal Sex Female 18:42 EST Gender Identity Not on file Sexual Orientation Not on file Plan of Treatment Health Maintenance Due Date Last Done Comments Hepatitis C Screen 1970 Hepatitis B Vaccine (1 of 3 - 19+ 3-dose series) 09/05 COVID-19 Vaccine ( season) 2023 Insurance MEDICARE A[employer] [place] Care Teams Fire Sprinkler Service Technician Relationship Specialty Start Date End Date Genet Sauer MD NPI: [id number] [place] [id number] PCP - General 09/19/12
--- OUTSIDE RECORDS SUMMARY | 2024-03-29 08:16 | XMS_ITS | Encounter Summary ---
Author Organization [facility] [place] [address] Care Team Providers Care Nursery Supervisor Name Role Phone Genet Sauer MD Primary Care Provider [phone] Encounter Details Date Type Department Care Team (Late st Contact Info) Description 01/02/2013 Orders [place] [phone] Sammie Johnson MD [facility] [place] [address] Social History Tobacco Use Types Packs/Day Years [...] 4:00 PM EDT [place] [phone] Kira Thayer MD [facility] [place] [address] documented as of this encounter Procedures Procedure Name Priority Date/Time Associated Diagnosis Comments FILM LIBRARY STORAGE ONLY CT CHEST Routine 01/02/2013 12:04 PM EDT documented in this encounter Results * Film Library- Storage only CT Chest (01/02/2013 12:04 PM EDT) 01/02/2013 12:0 4 PM EDT Narrative RAD - 12/03/2013 11:05 PM EDT This is a non-reportable exam. Procedure Note Messi Tate - 12/03/2013 This is a non-reportable exam. Sammie Johnson MD IMG FILM LIBRARY ORD ERABLES RAD [address] [place] [address] documented in this encounter Visit Diagnoses Not on filedocumented in this encounter Care Teams Nursery Supervisor Relationship Specialty Start Date End Date Genet Sauer MD [facility] [address] [place] [address] [place] [address] PCP - General 09/11/12 06/18/13 documented as of this encounter
--- OUTSIDE RECORDS SUMMARY | 2024-03-29 08:16 | XMS_ITS | Encounter Summary ---
Author Organization [facility] [place] [address] Care Team Providers Care Call Center Team Leader Name Role Phone Genet Sauer MD Primary Care Provider [phone] Reason for Visit * Reason Comments GI Problem Encounter Details Date Type Department Care Team (Late st Contact Info) Description 09/11/2012 2:30 PM EDT Office [place] [address] Jennifer Burroughs APRN [facility] [place] [address] Elevated liver function tests (Primary Dx) Discharge [...] Sign Reading Time Taken Comments Blood Pressure 115/71 09/11/2012 2:37 PM EDT Pulse 71 09/11/2012 2:37 PM EDT Temperature - - Respiratory Rate - - Oxygen Saturation - - Inhaled Oxygen Concentration - - Weight 54 kg (119 lb) 09/11/2012 2:37 PM EDT Height 166.5 cm (5' 5.55) 09/11/2012 2:37 PM ED T Body Mass Index 19.47 09/11/2012 2:37 PM EDT documented in this encounter Progress Notes * ManjeetWinifredomaira Adame, CREPE MAKER - 09/11/2012 2:41 PM EDT Subjective: Patient ID: Jessie Sanchez is a 42 y.o. female. HPI Ms. Sanchez is a 42 year old female referred by Dr. Genet Sauer for evaluation and treatment of elevated liver tests. She is accompanied by her sister today. Ms. 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 Assessment and Plan: Ms. Sanchez is a 42 year old female with a mild elevation in alk phos which has been persistent for about a year. She has right upper quadrant abdominal pain as well as flank pain and a change in her bowel habits. We will proceed with a serological evaluation to look for evidence of treatable liver disease. We discussed the possibility of PBC vs PSC, I have also recommended a colonoscopy as she is a heavy smoker and is loosing weight with a change in bowel habits. However she prefers to have thisdone locally so will ask her PCP to arrange locally. She does have a distant relative who of cirrhosis but it is not known the cause or any other details so I will also check for some genetic liver disease. The placement of the discomfort makes me wonder if the pain is of a chest etiology. She tells me that she had a negative chest xray recently. I will see her back in about in a month to review the results of the testing and to determine the next steps. May need to get a doppler ultrasound of the abdomen as well if the above testing is negative. * Jennifer Burroughs APRN - 09/11/2012 2:41 PM EDT documented in this encounter Miscellaneous Notes * Addendum Note - Monisha Yeung - 09/11/2012 3:36 PM EDTAddended by: MONISHA YEUNG on: 09/11/2012 03:36 PM Modules accepted: Orders documented in this encounter Plan of Treatment Upcoming Encounters Date Type Department Care Team (Late st Contact Info) Description 08/27/2024 4:00 PM EDT [place] [address] Kira Thayer MD [facility] [place] [address] documented as of this encounter Procedures Procedure Name Priority Date/Time Associated Diagnosis Comments .A1AT GENOTYPE Routine 09/11/2012 3:46 PM EDT Elevated liver function tests A1AT GENOTYPE PROFILE Routine 09/11/2012 3:46 PM EDT Elevated liver function tests DIFFERENTIAL, AUTOMATED Routine 09/11/2012 3:46 PM EDT IRON AND TIBC Routine 09/11/2012 3:46 PM EDT Elevated liver function tests ODNHY-7-PHOCOYYOLYL Routine 09/11/2012 3 :46 PM EDT Elevated liver function tests MITOCHONDRIAL ANTIBODY, M2 Routine 09/11/2012 3:46 PM EDT Elevated liver function tests TISSUE TRANSGLUTAMINASE, IGA Routine 09/11/2012 3:46 PM EDT Elevated liver function tests CERULOPLASMIN Routine 09/11/2012 3:46 PM EDT Elevated liver function tests HEPATITIS B CORE ANTIBODY, TOTAL Routine 09/11/2012 3:46 PM EDT Elevated liver function tests SMOOTH MUSCLE ANTIBODY Routine 3 3:46 PM EDT Elevated liver function tests HEPATITIS B SURFACE ANTIBODY Routine 09/11/2012 3:46 PM EDT Elevated liver function tests HEPATITIS B SURFACE ANTIGEN Routine 09/11/2012 3:46 PM EDT Elevated liver function tests CBC (WITH DIFF) Routine 09/11/2012 3:46 PM EDT Elevated liver function tests GISSELLE ANTIBODY SCREEN Routine 09/11/2012 3 :46 PM EDT Elevated liver function tests IGA Routine 09/11/2012 3:46 PM EDT Elevated liver function tests IGM Routine 09/11/2012 3:46 PM EDT Elevated liver function tests IGG Routine 09/11/2012 3:46 PM EDT Elevated liver function tests FERRITIN Routine 09/11/2012 3:46 PM EDT Elevated liver function tests HEPATIC FUNCTION PANEL Routine 3 3:46 PM EDT Elevated liver function tests documented in this encounter Results * Differential, Automated (09/11/2012 3:46 PM EDT) Neutrophil % 65.8 34.0 - 71.0 % CERNER MILLENNIUM Neutrophil Absolute 4.22 1.50 - 6.30 x10(3)/mcL CERNER MILLENNIUM Lymph % 23.6 19.0 - 53.0 % CERNER MILLENNIUM Lymphocytes Abs 1.5 1.0 - 3.6 x10(3)/mcL CERNER MILLENNIUM Monocyte % 8.6 4.0 - 13.0 % CERNER MILLENNIUM Monocyte Abs 0.6 0.2 - 1.0 x10(3)/mcL CERNER MILLENNIUM Eos % 1.2 0.0 - 7.0 % CERNER MILLENNIUM Eosinophils Abs 0.1 0.0 - 0.5 x10(3)/mcL CERNER MILLENNIUM Basophil % 0.6 0.0 - 2.0 % CERNER MILLENNIUM Baso Absolute 0.0 0.0 - 0.2 x10(3)/mcL CERNER MILLENNIUM Immature Gran % 0.20 0.00 - 0.66 % CERNER MILLENNIUM Comment: Immature granulocytes(IG's)percentage and absolute count will include metamyelocytes, myelocytes, and promyelocytes. Blood smears from CBCs yielding IG's will be scanned manually for concordance. If this scan disagrees with the automated IG or if promyelocytes are noted, a manual differential will be performed. Immature Gran Absolute 0.01 0.00 - 0.05 x10(3)/mcL CERNER MILLENNIUM Blood specimen (specimen) 09/11/2012 3:46 PM EDT 09/11/2012 3:54 PM EDT Amadeo Rivera MD HEMATOLOGY ORDERABL ES NICHOLAS GREENBERG * .A1AT Genotype (09/11/2012 3:46 PM EDT) A1AT Genotype A1AT (SERPINA1) GENOTYPING RESULTS: S ALLELE: NOT DETECTED Z ALLELE: NOT DETECTED INTERPRETATION: The absence of both the S and Z alleles in this patient along with a separate test showing normal levels of A1AT protein (146mg/dL) in this patient s serum suggest this patient does not have an A1AT deficiency. Although the S and Z alleles were not detected by this test, the presence of other less common A1AT variants cannot be excluded. ??These results should be interpreted based on the complete clinical presentation which may warrant additional testing and/or a genetic consultation. METHOD: Two regions of interest in the serpin peptidase inhibitor, clade A (alpha-1 antiproteinase, antitrypsin), member 1 gene (SERPINA1), commonly alpha-1 anti-trypsin or A1AT) that are known to contain variant alleles resulting in the S phenotype ([id number]:c.863 A>T; [id number]) and the Z phenotype (c. 1096G>A; [id number]) are amplified and genotyped by two separate PCR assays each containing two primers for amplification and two probes for detection the normal and variant alleles. ??Genomic DNA used in this testing was isolated from peripheral blood. LIMITATIONS AND DISCLAIMERS: ??Although unlikely, rare variants or polymorphisms (known or unknown) have the potential to interfere with the performance of this test, producing false negative or false positive results. ??When genotyping results are not consistent with other clinical observations or test results, additional testing should be considered. This test was developed and its performance characteristics determined by the Molecular Pathology Laboratory at [facility]. This test is used for clinical purposes and should not be considered as investigational or for research purposes. ??It has not been cleared or approved by the U.S. Food and Drug Administration. However, as a CLIA licensed laboratory, our facility is approved for such high-complexity clinical testing. NICHOLAS GREENBERG Comment: [VERIFIED DATE]09.22.12 Verified By:Karuna Aden MD Pathologist (Electronic Signature) Blood specimen (specimen) 09/11/2012 3:46 PM EDT 09/12/2012 7:59 AM EDT Narrative Resulting Agency Comment Spec In Lab Amadeo Rivera MD CHEMISTRY ORDERABLE S Performing Organization Address [facility]/State/ZIP Co de Phone Number CERNER MILLENNIUM * (ABNORMAL) CBC (with Diff) (09/11/2012 3:46 PM EDT) White Blood Cell 6.4 4.0 - 10.0 x10(3)/mc L CERNER MILLENNIUM Red Blood Cell 4.26 3.93 - 5.22 x10(6)/mc L CERNER MILLENNIUM Hemoglobin 14.0 11.2 - 15.7 gm/dL CERNER MILLENNIUM Hematocrit 40.7 34.0 - 45.0 % CERNER MILLENNIUM Mean Cell Volume 95.5(H) 79.0 - 94.0 fL CERNER MILLENNIUM Mean Cell Hemoglobin 32.9(H) 26.6 - 32.2 pg CERNER MILLENNIUM Mean Cell Hemoglobin Concentration 34.4 32.0 - 36.5 gm/dL CERNER MILLENNIUM Platelet 200 145 - 370 x10(3)/mc L CERNER MILLENNIUM RDW Standard Deviation 47.3(H) 35.0 - 46.0 fL CERNER MILLENNIUM RDW coefficient of variation 13.5 10.9 - 14.4 % CERNER MILLENNIUM Mean Platelet Volume 10.6 9.0 - 12.0 fL CERNER MILLENNIUM Blood specimen (specimen) 09/11/2012 3:46 PM EDT 09/11/2012 3:54 PM EDT Narrative Resulting Agency Comment Spec In Lab Amadeo Rivera MD HEMATOLOGY ORDERABL ES CERNER MILLENNIUM * Tissue transglutaminase, IgA (09/11/2012 3:46 PM EDT) TTG IgA Ab <4.0 <=3.9 u/ml CERNER MILLENNIUM Comment: Result Interpretation: Negative: ?<4 U/mL Weak Positive: ??4-10 U/mL Positive: ?>10 U/mL Blood specimen (specimen) 09/11/2012 3:46 PM EDT 09/12/2012 8:13 AM EDT Narrative Resulting Agency Comment Spec In Lab Amadeo Rivera MD IMMUNOLOGY ORDERABL ES Performing Organization Address [facility] Co de Phone Number CERNER MILLENNIUM * A1AT Serum Concentration (09/11/2012 3:46 PM EDT) A1AT 146 100 - 190 mg/dL [facility] Comment: Test Performed by: [employer] [place] [address] Basketball Assembler: Celeste Stockton, Ph.D. Blood specimen (specimen) 09/11/2012 3:46 PM EDT 09/12/2012 7:30 AM EDT Narrative Resulting Agency Comment Spec In Lab Amadeo Rivera MD CHEMISTRY ORDERABLE S Performing Organization Address [facility] Co de Phone Number [facility] MILL[facility] * Iron and TIBC (09/11/2012 3:46 PM EDT) Iron 77 30 - 150 mcg/dL CERNER MILLENNIUM TIBC 302 250 - 450 mcg/dL CERNER MILLENNIUM Iron Saturation 25 20 - 50 % CERN ER MILLENNIUM Blood specimen (specimen) 09/11/2012 3:46 PM EDT 09/11/2012 3:54 PM EDT Narrative Resulting Agency Comment Spec In Lab Amadeo Rivera MD CHEMISTRY ORDERABLE S Performing Organization Address [facility] Co de Phone Number CERNER MILLENNIUM * Ferritin (09/11/2012 3:46 PM EDT) Ferritin 39 15 - 150 ng/mL CERNER MILLENNIUM Comment: Pediatric reference ranges not verified at [facility], interpret with caution. Reference ranges for females greater than 50 years of age approach values for men, i.e., 30-400 ng/mL. Blood specimen (specimen) 09/11/2012 3:46 PM EDT 09/11/2012 3:54 PM EDT Narrative Resulting Agency Comment Spec In Lab Amadeo Rivera MD CHEMISTRY ORDERABLE S Performing Organization Address [facility] de Phone Number [facility] * GISSELLE (09/11/2012 3:46 PM EDT) GISSELLE Neg Neg [facility] Blood specimen (specimen) 09/11/2012 3:46 PM EDT 09/12/2012 8:09 AM EDT Narrative Resulting Agency Comment Spec In Lab Amadeo Rivera MD LAB SEND OUT ORDERA BLES Performing Organization Address [facility] de Phone Number [facility] * Smooth Muscle Antibody (09/11/2012 3:46 PM EDT) Sm Muscle Ab (MAY) Negative Negative [facility] Comment: Test Performed by: [place] [address] Basketball Assembler: Ambrose Moreno III, M.D. Blood specimen (specimen) 09/11/2012 3:46 PM EDT 09/12/2012 7:25 AM EDT Narrative Resulting Agency Comment Spec In Lab Amadeo Rivera MD LAB SEND OUT ORDERA BLES Performing Organization Address [facility] de Phone Number [facility] * Mitochondrial Antibody, M2 (09/11/2012 3:46 PM EDT) Mitochon Ab (AUGUST) <0.1 <0.1 (Negative) U [facility] Comment: Test Performed by: [place] [address] Basketball Assembler: Ambrose Moreno III, M.D. Blood specimen (specimen) 09/11/2012 3:46 PM EDT 09/12/2012 7:25 AM EDT Narrative Resulting Agency Comment Spec In Lab Amadeo Rivera MD LAB SEND OUT ORDERA BLES [facility] * IgA (09/11/2012 3:46 PM EDT) IgA 173 70 - 400 mg/dL [facility] Blood specimen (specimen) 09/11/2012 3:46 PM EDT 09/11/2012 3:54 PM EDT Narrative Resulting Agency Comment Spec In Lab Amadeo Rivera MD CHEMISTRY ORDERABLE S Performing Organization Address [facility]/ZIP Co de Phone Number [facility] * (ABNORMAL) IgG (09/11/2012 3:46 PM EDT) Immunoglobulin G 688(L) 700 - 1,600 mg/dL [facility] Blood specimen (specimen) 09/11/2012 3:46 PM EDT 09/11/2012 3:54 PM EDT Narrative Resulting Agency Comment Spec In Lab Amadeo Rivera MD CHEMISTRY ORDERABLE S Performing Organization Address [facility] Co de Phone Number [facility] * IgM (09/11/2012 3:46 PM EDT) IgM 59 40 - 230 mg/dL [facility] Blood specimen (specimen) 09/11/2012 3:46 PM EDT 09/11/2012 3:54 PM EDT Narrative Resulting Agency Comment Spec In Lab Amadeo Rivera MD CHEMISTRY ORDERABLE S [facility] * Ceruloplasmin (09/11/2012 3:46 PM EDT) Ceruloplasmin 25.0 16.0 - 45.0 mg/dL CERNER MILLENNIUM Comment: Test Performed by: [facility] [employer] [address] [address] Basketball Assembler: Celeste Stockton, Ph.D. Blood specimen (specimen) 09/11/2012 3:46 PM EDT 09/12/2012 7:30 AM EDT Narrative Resulting Agency Comment Spec In Lab Amadeo Rivera MD CHEMISTRY ORDERABLE S CERNER MILLENNIUM * (ABNORMAL) Hepatic Function Panel (09/11/2012 3:46 PM EDT) Protein, Total 6.7 6.4 - 8.3 gm/dL CERNER MILLENNIUM Albumin 4.3 3.2 - 5.2 gm/dL CERNER MILLENNIUM Aspartate Aminotransferase 16 0 - 30 unit/L CERNER MILLENNIUM Alanine Aminotransferase 15 0 - 30 unit/L CERNER MILLENNIUM Alkaline Phosphatase 113(H) 40 - 104 unit/L CERNER MILLENNIUM Bilirubin, Total 0.3 0.2 - 1.3 mg/dL CERNER MILLENNIUM Bilirubin, Direct 0.1 0.0 - 0.3 mg/dL [facility]ERN[facility] MILLENNIUM Blood specimen (specimen) 09/11/2012 3:46 PM EDT 09/11/2012 3:54 PM EDT Narrative Resulting Agency Comment Spec In Lab Amadeo Rivera MD CHEMISTRY ORDERABLE S Performing Organization Address City/[facility]/ZIP Co de Phone Number CERNER MILLENNIUM * Hepatitis B Core Antibody, Total (09/11/2012 3:46 PM EDT) Hepatitis B Core Antibody Negative Negative CERNER MILLENNIUM Blood specimen (specimen) 09/11/2012 3:46 PM EDT 09/11/2012 3:54 PM EDT Narrative Resulting Agency Comment Spec In Lab Amadeo Rivera MD CHEMISTRY ORDERABLE S [facility] MILLENNIUM * Hepatitis B Surface Antibody (09/11/2012 3:46 PM EDT) Hepatitis B Surface Antibody Negative CERN[facility] MILLENNIUM Comment: Expected Results: Vaccinated: Positive Unvaccinated: Negative Please note: A positive result for this assay is consistent with a concentration of anti-HBs antibodies >10mIU/ml, which indicates that anti-HBs antibodies have been detected at levels consistent with protective immunity against HBV infection. Blood specimen (specimen) 09/11/2012 3:46 PM EDT 09/11/2012 3:54 PM EDT Narrative Resulting Agency Comment Spec In Lab Amadeo Rivera MD CHEMISTRY ORDERABLE S Performing Organization Address [facility] de Phone Number [facility] * Hepatitis B Surface Antigen (09/11/2012 3:46 PM EDT) Pathologist [facility] Hepatitis B Surface Antigen Negative Negative [facility] Blood specimen (specimen) 09/11/2012 3:46 PM EDT 09/11/2012 3:54 PM EDT Narrative Resulting Agency Comment Spec In Lab Amadeo Rivera MD CHEMISTRY ORDERABLE S Performing Organization Address [facility] de Phone Number [facility] documented in this encounter Visit Diagnoses Diagnosis Elevated liver function tests- Primary Other abnormal blood chemistry documented in this encounter Care Teams Call Center Team Leader Relationship Specialty Start Date End Date Genet Sauer MD [facility] [address] [place] [address] [place] [address] PCP - General 09/11/12 06/18/13 documented as of this encounter
--- OUTSIDE RECORDS SUMMARY | 2024-03-29 08:16 | XMS_ITS | Encounter Summary ---
Author Organization [facility] [place] [address] Care Team Providers Care Inspector Government Property Name Role Phone Genet Sauer MD Primary Care Provider [phone] Encounter Details Date Type Department Care Team (Late st Contact Info) Description 11/11/2010 Orders Only [place] [address] Joao Interiano MD Social History Tobacco Use [...] 4:00 PM EDT Office Visit [place] [address] Kira Thayer MD [facility] [place] [address] Pending Results Name Type Priority Associated Diagnoses Date /Time Film Library- Storage only DX Chest Imaging Routine 11/11/2010 4:36 PM EDT documented as of this encounter Visit Diagnoses Not on filedocumented in this encounter Care Teams Inspector Government Property Relationship Specialty Start Date End Date Genet Sauer MD [facility] [address] [place] [address] [place] [address] PCP - General 09/11/12 06/18/13 documented as of this encounter
--- OUTSIDE RECORDS SUMMARY | 2024-03-29 08:16 | XMS_ITS | Encounter Summary ---
Author Organization [facility] [place] [address] Care Team Providers Care Hogshead Mat Assembler Name Role Phone Cathy Wu RYLAND Primary Care Provider [phone] Encounter Details Date Type Department Care Team (Late st Contact Info) Description 08/21/2012 Orders [place] [phone] Jennifer Burroughs APRN [facility] GASTROENTEROLOGY DEPT. [place], [place] [id number] Social History Tobacco Use Types Packs/Day Years [...] 4:00 PM EDT Office [place] [address] Kira Thayer MD [facility] [place] [address] documented as of this encounter Procedures Procedure Name Priority Date/Time Associated Diagnosis Comments FILM LIBRARY STORAGE ONLY ULTRASOUND STUDY Routine 08/21/2012 2:15 PM EDT documented in this encounter Results * Film Library- Storage only Ultrasound Study (08/21/2012 2:15 PM EDT) 08/21/2012 2:15 PM EDT Narrative RAD - 12/03/2013 11:05 PM EDT This is a non-reportable exam. Procedure Note Messi Tate - 12/03/2013 This is a non-reportable exam. Jennifer Burroughs APRN IMSenait FILM LIBRARY ORD ERABLES [facility] [address] [place] [address] documented in this encounter Visit Diagnoses Not on filedocumented in this encounter Care Teams Hogshead Mat Assembler Relationship Specialty Start Date End Date Cathy Wu APRN PCP - General 08/27/11 09/10/12 documented as of this encounter
--- OUTSIDE RECORDS SUMMARY | 2024-03-29 08:16 | XMS_ITS | Encounter Summary ---
Author Organization [facility] [place] [address] Care Team Providers Care Personal Clothing Laundry Aide Name Role Phone Cathy Wu RYLAND Primary Care Provider [phone] Encounter Details Date Type Department Care Team (Late st Contact Info) Description 11/28/2011 Orders [place] [phone] Jennifer Burroughs APRN [facility] GASTROENTEROLOGY DEPT. [place], [place] [id number] Social History Tobacco Use Types Packs/Day Years [...] 4:00 PM EDT Office [place] [address] Kira Thayer MD [facility] [place] [address] documented as of this encounter Procedures Procedure Name Priority Date/Time Associated Diagnosis Comments FILM LIBRARY STORAGE ONLY CT ABDOMEN AND PELVIS Routine 11/28/2011 9:15 AM EDT documented in this encounter Results * Film Library- Storage only CT abdomen & pelvis (11/28/2011 9:15 AM EDT) 11/28/2011 9:15 AM EDT Narrative RAD - 12/03/2013 11:05 PM EDT This is a non-reportable exam. Procedure Note Messi Tate - 12/03/2013 This is a non-reportable exam. Jennifer Burroughs APRN IMSenait FILM LIBRARY ORD ERABLES [facility] [address] [place] [address] documented in this encounter Visit Diagnoses Not on filedocumented in this encounter Care Teams Personal Clothing Laundry Aide Relationship Specialty Start Date End Date Cathy Wu APRN PCP - General 08/27/11 09/10/12 documented as of this encounter
--- OUTSIDE RECORDS SUMMARY | 2024-03-29 08:16 | XMS_ITS | Encounter Summary ---
Author Organization [facility] [place] [address] Care Team Providers Care Pattern Grader Cutter Name Role Phone Jessie Dover RYLAND Primary Care Provider [phone] Encounter Details Date Type Department Care Team (Late st Contact Info) Description 04/04/2016 Ancillary Procedure Radiology Library at [facility] [place] [phone] Sammie Johnson MD [facility] [place] [address] Social History Tobacco Use Types Packs/Day Years [...] Pulmonology at [facility] [place] [phone] Kira Thayer MD [facility] [place] [address] documented as of this encounter Procedures Procedure Name Priority Date/Time Associated Diagnosis Comments FILM LIBRARY STORAGE ONLY CT ABDOMEN Routine 04/04/2016 12:00 AM EST documented in this encounter Results * Film Library- Storage Only CT Abdomen (04/04/2016 12:00 AM EST) Narrative [facility] - 10/20/2018 11:49 AM EDT This exam is auto-finalizing. It's purpose is for storage only. Sammie Johnson MD IMG FILM LIBRARY ORD ERABLES [place], [place] documented in this encounter Visit Diagnoses Not on filedocumented in this encounter Care Teams Pattern Grader Cutter Relationship Specialty Start Date End Date Jessie Dover APRN PCP - General 06/19/13 08/29/18 documented as of this encounter
--- OUTSIDE RECORDS SUMMARY | 2024-03-29 08:16 | XMS_ITS | Encounter Summary ---
[place] [address] Care Team Providers Care Barrel Scraper Name Role Phone Jessie Dover APRN Primary Care Provider [phone] Encounter Details Date Type Department Care Team (Latest Contact Info) Description 06/19/2013 1:30 PM EDT - 06/19/2013 11:59 PM EDT Hospital [place] [phone] Acute exacerbation of chronic obstructive airways disease (Primary Dx) Social History Tobacco Use Types [...] Sig Dispensed Refills Start Date End Date IBUPROFEN ORAL 05/28/2013 DILTiazem (CARDIZEM) 30 mg tablet 04/12/2013 morphine (MSIR) 15 mg tablet 06/07/2013 09/25/2018 [...] capsule 01/01/2009 documented as of this encounter Procedure Notes * Ehsan Acosta MD - 06/22/2013 4:39 PM EDTAssociated Order(s): PULMONARY FUNCTION TEST Forced vital capacity is low. FEV1 is low. The ratio is low. Diffusing capacity is low. Spirometry shows severe obstructive disease. It also may suggest concurrent restriction or air trapping. Suggest lung volumes clinically indicated. Diffusing capacity is low. This latter finding may be seen pulmonary vessels are disease, interstitial is, or anemia. documented in this encounter Plan of Treatment Upcoming Encounters Date Type Department Care Team (Late st Contact Info) Description 08/27/2024 4:00 PM EDT Office [place] [address] Kira Thayer MD [facility] [place] [address] documented as of this encounter Procedures Procedure Name Priority Date/Time Associated Diagnosis Comments COMMON PULMONARY FUNCTION TEST Routine 06/22/2013 4:39 PM EDT Acute exacerbation of chronic obstructive airways disease documented in this encounter Results * Pulmonary [...] exacerbation documented in this encounter Care Teams Barrel Scraper Relationship Specialty Start Date End Date Jessie Dover APRN PCP - General 06/19/13 08/29/18 documented as of this encounter
--- OUTSIDE RECORDS SUMMARY | 2024-03-29 08:16 | XMS_ITS | Encounter Summary ---
Author Organization [facility] [place] [address] Care Team Providers Care Payable Processor Name Role Phone Genet Sauer MD Primary Care Provider [phone] Encounter Details Date Type Department Care Team (Late st Contact Info) Description 12/31/2012 Orders [place] [phone] Joao Interiano MD Social History Tobacco Use [...] 4:00 PM EDT Office [place] [address] Kira Thayer MD [facility] [place] [address] Pending Results Name Type Priority Associated Diagnoses Date /Time Film Library- Storage only DX Chest Imaging Routine 12/31/2012 4:17 PM EDT documented as of this encounter Visit Diagnoses Not on filedocumented in this encounter Care Teams Payable Processor Relationship Specialty Start Date End Date Genet Sauer MD [facility] [address] [place] [address] [place] [address] PCP - General 09/11/12 06/18/13 documented as of this encounter
--- OUTSIDE RECORDS SUMMARY | 2024-03-29 08:16 | XMS_ITS | Encounter Summary ---
Author Organization [facility] [place] [address] Care Team Providers Care Shaker Washer Name Role Phone SciotoJessie beckham Senait MARCELINO Primary Care Provider [phone] Reason for Visit * Reason Comments Follow-up Encounter Details Date Type Department Care Team (Late st Contact Info) Description 08/21/2014 9:30 AM EDT [place] [address] Saad Chang Jr., MD [facility] [place] [address] Flank pain Discharge Disposition: Home Social History Tobacco Use [...] Sign Reading Time Taken Comments Blood Pressure 106/69 08/21/2014 8:27 AM EDT Pulse 77 08/21/2014 8:27 AM EDT Temperature - - Respiratory Rate - - Oxygen Saturation - - Inhaled Oxygen Concentration - - Weight 63.5 kg (140 lb) 08/21/2014 8:27 AM EDT Height 162.6 cm (5' 4) 08/21/2014 8:27 AM EDT Body Mass Index 24.03 08/21/2014 8:27 AM EDT documented in this encounter Progress Notes * Saad Chang Jr., MD - 08/21/2014 8:25 AM EDT History of Present Illness: Jessie Sanchez is a 43 y.o. female who presents with with a 3 year history of suspected urolithiasis. She complains of dull back pain on the right side, they found an 8mm stone then. She failed SWL and then underwent URS with Dr. Waters. The stone composition was unknown. She states that for the last year, she has had constant right low back pain, 6/10 in severity, feels like someone is pushing on her back. Because of this, she had a repeat ultrasound at [facility] and thissuggested an 8 mm non-obstructing stone in the inferior pole of the right kidney without any associated hydronephrosis. We elected to obtain CT to better assess stone burden as u/s did not clearly delineate if there was a stone to account for the pain she described. In the interval since her last visit, she notes continued right flank pain, without radiation, hematuria, nausea, fever, or stone passage. 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 She appears well- developed and well-nourished. No distress. HENT: Head: Normocephalic and atraumatic. Cardiovascular: Normal rate. Abdominal: Soft. She exhibits no distension. There is no tenderness. There is no rebound. Genitourinary: Neurological: She is alert and oriented to person, place, and time. Skin: Skin is warm and dry. She is not diaphoretic. Psychiatric: She has a normal mood and affect. Her behavior is normal. Vitals reviewed. Imaging studies: I independently reviewed the Ct from today. This reveals no hydronephrosis, hydroureter, renal, ureteral, or bladder stones Impression: Back pain of unclear etiology. No evidence of tract abnormalities Plan: We reviewed the CT. No evidence of stones or other tract abnormality on unenhanced CT. Julian thus discuss with her PCP investigating alternative sources of her pain as there is no evidence for a source. She will follow up with us on an as needed basis. documented in this encounter Plan of Treatment Upcoming Encounters Date Type Department Care Team (Late st Contact Info) Description 08/27/2024 4:00 PM EDT Office [place] [address] Kira Thayer MD [facility] [place] [address] documented as of this encounter Visit Diagnoses Diagnosis Flank pain Abdominal pain, unspecified site documented in this encounter Care Teams Shaker Washer Relationship Specialty Start Date End Date Jessie Dover APRN PCP - General 06/19/13 08/29/18 documented as of this encounter
--- OUTSIDE RECORDS SUMMARY | 2024-03-29 08:16 | XMS_ITS | Encounter Summary ---
Author Organization [facility] [place] [address] Care Team Providers Care [place] Farmworker Name Role Phone Genet Sauer MD Primary Care Provider Encounter Details Date Type Department Care Team (Late st Contact Info) Description 06/01/2013 [place] [phone] Joao Interiano MD Social History Tobacco Use [...] 4:00 PM EDT [place] [address] Kira Thayer MD [facility] [address] [place] [address] Pending Results Name Type Priority Associated Diagnoses Date /Time Film Library- Storage only CT Chest Imaging Routine 06/01/2013 4:13 PM EST documented as of this encounter Visit Diagnoses Not on filedocumented in this encounter Care Teams [place] Farmworker Relationship Specialty Start Date End Date Genet Sauer MD [facility] [address] [place] [address] [place] [address] PCP - General 09/11/12 06/18/13 documented as of this encounter
--- OUTSIDE RECORDS SUMMARY | 2024-03-29 08:16 | XMS_ITS | Encounter Summary ---
Author Organization [facility] [place] [address] Care Team Providers Care Contract Administrative Assistant Name Role Phone Genet Sauer MD Primary Care Provider [phone] Encounter Details Date Type Department Care Team (Late st Contact Info) Description 01/09/2011 Orders [place] [address] Joao Interiano MD Social History Tobacco Use [...] 4:00 PM EDT Office [place] [address] Kira Thayer MD [facility] [place] [address] Pending Results Name Type Priority Associated Diagnoses Date /Time Film Library- Storage only DX Chest Imaging Routine 01/09/2011 4:35 PM EDT documented as of this encounter Visit Diagnoses Not on filedocumented in this encounter Care Teams Contract Administrative Assistant Relationship Specialty Start Date End Date Genet Sauer MD [facility] [address] [place] [address] [place] [address] PCP - General 09/11/12 06/18/13 documented as of this encounter
--- OUTSIDE RECORDS SUMMARY | 2024-03-29 08:16 | XMS_ITS | Encounter Summary ---
Author Organization [facility] [place] [address] Care Team Providers Care Solutions Specialist Name Role Phone Genet Sauer MD Primary Care Provider [phone] Encounter Details Date Type Department Care Team (Late st Contact Info) Description 01/04/2013 External Results XRay at [address] [place] [phone] Provider, Scanning Social History Tobacco Use Types [...] 4:00 PM EDT Office [place] [address] Kira Thayer MD [facility] [place] [address] documented as of this encounter Procedures Procedure Name Priority Date/Time Associated Diagnosis Comments CT SCAN (SCAN) Routine 01/02/2013 DIAGNOSTIC RADIOLOGY SCAN Routine 01/02/2013 documented in this encounter Results * Scan Doc: Diagnostic Radiology (01/02/2013) Anatomical Region Laterality Modality Other Scanning Provider MEDIA MGR SCAN EXT O RDR/RSLT * Scan Doc: CT Scan (01/02/2013) Anatomical Region Laterality Modality Other Scanning Provider MEDIA MGR SCAN EXT O RDR/RSLT documented in this encounter Visit Diagnoses Not on filedocumented in this encounter Care Teams Solutions Specialist Relationship Specialty Start Date End Date Genet Sauer MD [facility] [address] [place] [address] [place] [address] PCP - General 09/11/12 06/18/13 documented as of this encounter
--- OUTSIDE RECORDS SUMMARY | 2024-03-29 08:16 | XMS_ITS | Encounter Summary ---
Author Organization [facility] [address] Care Team Providers Care Geothermal Installer Name Role Phone Genet Sauer MD Primary Care Provider [phone] Encounter Details Date Type Department Care Team (Late st Contact Info) Description 08/12/2011 [place] [address] Joao Interiano MD Social History Tobacco Use [...] 4:00 PM EDT [place] [address] Kira Thayer MD [facility] [place] [address] Pending Results Name Type Priority Associated Diagnoses Date /Time Film Library- Storage only DX Chest Imaging Routine 08/12/2011 4:33 PM EDT documented as of this encounter Visit Diagnoses Not on filedocumented in this encounter Care Teams Geothermal Installer Relationship Specialty Start Date End Date Genet Sauer MD [facility] [address] [place] [address] [place] [address] PCP - General 09/11/12 06/18/13 documented as of this encounter
--- OUTSIDE RECORDS SUMMARY | 2024-03-29 08:17 | XMS_ITS | Encounter Summary ---
Author Organization [facility] Address [address] [place] [address] Care Team Providers Care Welfare Aide Name Role Phone Unknown, Provider Primary Care Provider Unava ilable Encounter Details Date Type Department Care Team (Late st Contact Info) Description 09/27/2008 Orders Only [facility] Laboratory Services - [facility] ([facility] [address] [place] [phone] Kalia Combs MD [address] [place] [phone] Social History Tobacco Use Types Packs/Day Years Used Date Smoking Tobacco: Never Assessed Comments Unknown Sex and Gender Information Value Date Recorded Sex Assigned at Not on file Legal Sex Female 18:42 EST Gender Identity Not on file Sexual Orientation Not on file documented as of this encounter Plan of Treatment Not on file documented as of this encounter Procedures Procedure Name Priority Date/Time Associated Diagnosis Comments SURGICAL PATHOLOGY Routine 09/27/2008 0:00 EDT documented in this encounter Results * SURGICAL PATHOLOGY (09/27/2008 0:00 EDT) Pathology Report: SURGICAL PATHOLOGY REPORT ? Reports generated via electronic interface contain original data; ? however they are lacking the format of the original report. ? Caution should be taken when reading/interpreting unformatted reports. ? Name: ? LEGET, JESSIE ? Accession #: ? [id number] ? : ? 1970 (Age: 38) ??F ? Collect Date: ? 09/27/2008 ? Location: ? [facility] ? Receive Date: ? 09/28/2008 ? Provider: KALIA COMBS MD ? Copy to: ALMA READY MD ? Final Pathologic Diagnosis: ? Breast, left, excision: ? 1. ?Skin and benign breast parenchyma with chronic inflammation. ??See ?? comment. ? 2. ? No evidence of malignancy. ? Comment: ? The excisional biopsy is characterized by a lymphoplasmacytic infiltrate in the perilobular and periductal tissue and interlobular fibrosis. These findings are consistent with chronic mastitis. Clinical correlation is essential. ? Health Assistant sections of this case have been reviewed at intradepartmental ? consultation conference. ??(Dr. Venegas)/tmg ? Document reviewed and electronically signed by: ? PRAKASH VENEGAS MD ? Report ??Date: 10/01/2008 17:58 ? By the signature above, the attending physician certifies that he/she has ? personally conducted a gross and/or microscopic examination of the described ? specimens and rendered or confirmed the above diagnosis. ? Specimen(s) Received: ? Left breast tissue, areolar margin & subareolar 11 ??12 o'clock ? Clinical History: ? Recurrent mastitis L breast ? Gross Description: ? Received in formalin labelled Lebel, Jessie and left breast tissue is an unoriented bass-yellow to white fibrofatty tissue with overlying skin having a ?? combined weight of 0.92 grams and measures 1.5 x 1.2 x 0.3 cm. ??There is an ? overlying bass-pink, smooth to wrinkled, unoriented 1.5 x 0.3 cm skin ellipse. ?? The cut surfaces are bass-yellow to white with no definitive nodules identified. The specimen is trisected and entirely submitted with the central section as ? (A1) and distal ends reverse en face as (A2). (Efrem Crowder)/mpl ? End of Report ? [facility] 09/27/2008 09/28/2008 9:4 8 EDT us Kalia Combs MD PATHOLOGY ORDERABLES Final Result Performing Organization Address City/State/[facility] Co de Phone Number [facility] [address] [place] [address] documented in this encounter Visit Diagnoses Not on filedocumented in this encounter Care Teams Welfare Aide Relationship Specialty Start Date End Date Unknown, Provider, PCP - General 08/26/08 09/30/08 documented as of this encounter
--- OUTSIDE RECORDS SUMMARY | 2024-03-29 08:17 | XMS_ITS | Encounter Summary ---
Author Organization [facility] Address [address] [place] [address] Care Team Providers Care Warehouse Forklift Operator Name Role Phone Genet Sauer MD Primary Care Provider [phone] Encounter Details Date Type Department Care Team (Late st Contact Info) Description 04/02/2019 Lab Requisition [facility] Pathology & Laboratory Medicine - [address] [address] Karuna Santana, DO [address] [facility] [facility] [address] [place], [place] [phone] Encounter for other general examination Social History Tobacco Use Types Packs/Day Years [...] Priority Date/Time Associated Diagnosis Comments SURGICAL PATHOLOGY Today 04/02/2019 10 :13 EST Encounter for other general examination documented in this encounter Results * SURGICAL PATHOLOGY (04/02/2019 10:13 EST) Final Diagnosis A. PERIRECTAL, 3 O'CLOCK, MEDIAL, BIOPSY: - Follicular cyst, infundibular type with histologic evidence of rupture. - Overlying squamous mucosa negative for dysplasia. B. PERIRECTAL, 3 O'CLOCK, LATERAL, BIOPSY: - Follicular cyst, infundibular type. - Overlying squamous mucosa negative for dysplasia. 04/09/2019 11:25 EST [facility] at [address] Clinical History Perirectal cyst 04/09/2019 11:25 [facility] Attestation There was significant resident/fellow involvement in the diagnostic evaluation of this case. By the signature below, the attending physician certifies that they have personally conducted a gross and/or microscopic examination of the described specimens and rendered or confirmed the above diagnosis. 04/09/2019 11:25 [facility] at [address] Gross Description A. Received in formalin labelled with proper patient identification (initials L, S) and 3:00 closer to rectum medial are 6 fragments of bass soft tissue (ranging from 0.4 cm to 0.6 cm in greatest dimension). The specimen is entirely submitted in A1-A2. B. Received in formalin labelled with proper patient identification (initials L, S) and 3:00 lateral rectum are 3 fragments of bass-white to hernández soft tissue (ranging from 0.3 cm to 0.5 cm in greatest dimension). The specimen is submitted in toto in B1. Val Aditi 04/05/2019 08:44 04/09/2019 11:25 [facility] Resident/Alec w: Edy Hampton MD 04/09/2019 11:25 [facility] Scanned Images 04/09/2019 11:25 [facility] Tissue SPECIMEN FROM RECTUM / Unknown 04/02/2019 10:13 EST 04/02/2019 19:18 EST Tissue specimen (specimen) SPECIMEN FROM RECTUM / Unknown 04/02/2019 10:13 EST 04/02/2019 19:18 EST us Karuna Santana DO PATHOLOGY ORDERABLES Final Re sult [facility] [address] [place] [address] documented in this encounter Visit Diagnoses Diagnosis Encounter for other general examination documented in this encounter Care Teams Warehouse Forklift Operator Relationship Specialty Start Date End Date Genet Sauer MD [address] [place] [address] PCP - General 09/19/12 documented as of this encounter
--- OUTSIDE RECORDS SUMMARY | 2024-03-29 08:17 | XMS_ITS | Encounter Summary ---
Author Organization [facility] Address [address] [place] [address] Care Team Providers Care Personal Counselor Name Role Phone Genet Sauer MD Primary Care Provider [phone] Unknown, Provider Primary Care Provider Unava ilable Encounter Details Date Type Department Care Team (Late st Contact Info) Description 01/18/2008 Before PRISM Converted Visit (Maple) [facility] - Maple conversion [address] [place] [address] Ashley Abdi MD [address] [place] [address] [place] [address] Social History Tobacco Use Types Packs/Day Years [...] Date/Time Associated Diagnosis Comments SURGICAL PATHOLOGY Routine 01/18/2008 0:00 EDT documented in this encounter Results * SURGICAL PATHOLOGY (01/18/2008 0:00 EDT) Pathology Report: SURGICAL PATHOLOGY REPORT ? Reports generated via electronic interface contain original data; ? however they are lacking the format of the original report. ? Caution should be taken when reading/interpreti ng unformatted reports. ? Name: ? DIEUDONNE, JESSIE ? Accession #: ? [id number] ? : ? 1970 (Age: 37) ??F ? Collect Date: ? 01/18/2008 ? Location: ? [facility] ? Receive Date: ? 01/19/2008 ? Provider: ASHLEY ABDI MD ? Copy to: CASSIA LOMELI MD ? Final Pathologic Diagnosis: ? Uterus, ovary and fallopian tube, right, hysterectomy and unilateral ? salpingo-oophorect jerzy: ? 1. ?Endometrium: ? - Inactive. ? 2. ?? Myometrium: ?- No pathologic features. ? 3. ?? Cervix: ?- No pathologic features. ? 4. ?? Serosa: ?- No pathologic features. ? 5. ?? Ovary: ?- Follicular cysts (1.5 cm maximal dimension). ? 6. ?? Fallopian tube: ?- Paratubal cyst. ? Document reviewed and electronically signed by: ? Macie Godoy. Andrea, MD ? Report ??Date: 01/24/2008 10:41 ? By the signature above, the attending physician certifies that he/she has ? personally conducted a gross and/or microscopic examination of the described ? specimens and rendered or confirmed the above diagnosis. ? Specimen(s) Received: ? Uterus, right ovary ? Clinical History: ? Menorrhagia, ruptured ovarian cyst, chronic RLQ pain ? Gross Description: ? Received in formalin labelled Lebel and uterus, right ovary is a uterus with attached right ovary and fallopian tube. ??The uterus and cervix measure 6.5 cm from cervix to fundus, 5.0 cm from cornu to cornu and 2.7 cm from anterior to posterior. ??After removal of the tube and ovary, the uterus and cervix weigh 46 grams. ??The uterine serosa is bass-pink and smooth. ??The endometrium is bass-white with a maximum thickness of 0.2 cm. ??The myometrium is pink-bass and trabeculated with an average thickness of 1.4 cm. ??The ectocervix is bass-hernández and smooth and the endocervix is bass-white and unremarkable. ??The fallopian tube measures 3.3 ?? cm in length and the diameter ranges from 0.3 cm to 0.5 cm. ??The serosa is ? purple-bass, smooth and there is a 0.4 cm in diameter paratubal cyst. ??Serial ? sectioning reveals a bass-white wall that is 0.2 cm thick and a pinpoint lumen ?? throughout. ??The ovary measures 2.5 x 1.7 x 0.7 cm and has a bass-white, ? lobulated surface with a defect measuring 0.2 cm that drains hemorrhagic fluid. Serial sectioning reveals bass-white parenchyma and a 1.5 x 0.8 x 0.4 cyst with a smooth white to focally red-brown lining measuring less than 0.1 cm in ? thickness. ? BLOCK MORAES ? A1 ?Anterior uterus, endometrium to serosa, full thickness ? A2 ?Posterior uterus, endometrium to serosa, full thickness ? A3 ?Anterior cervix ? A4 ?Posterior cervix ? A5 ?Openstack Developer sections of fallopian tube and paratubal cyst ? A6 ?Openstack Developer sections of ovary ? A7, A8 ?Additional ovarian tissue ? A9 ?Additional endomyometrium ? (Dr. Adam)/mpl ? End of Report ? [facility] 01/18/2008 01/19/2008 10: 17 EDT us Ashley Abdi MD PATHOLOGY ORDERABLES Final Resu lt [facility] [address] [place] [address] documented in this encounter Visit Diagnoses Not on filedocumented in this encounter Care Teams Personal Counselor Relationship Specialty Start Date End Date Genet Sauer MD [facility] [address] [place] [address] PCP - General 10/01/08 09/18/12 Unknown, MD Willie PCP - General 08/26/08 09/30/08 documented as of this encounter
--- OUTSIDE RECORDS SUMMARY | 2024-03-29 08:17 | XMS_ITS | Encounter Summary ---
Author Organization [facility] Address [address] [place] [address] Care Team Providers Care Metal Reed Tuner Name Role Phone Genet Sauer MD Primary Care Provider [phone] Encounter Details Date Type Department Care Team (Late st Contact Info) Description 02/21/2014 Results Only [facility]ISM [phone] Molina Hopkins, DO [address] [place] [address] Social History Tobacco Use Types Packs/Day Years [...] Date/Time Associated Diagnosis Comments SURGICAL PATHOLOGY Routine 02/21/2014 8:40 EST documented in this encounter Results * SURGICAL PATHOLOGY (02/21/2014 8:40 EST) Pathology Report: SURGICAL PATHOLOGY REPORT Reports generated via electronic interface contain original data; however they are lacking the format of the original report. Caution should be taken when reading/interpreti ng unformatted reports. Name: ? DIEUDONNE JESSIE ? Accession #: ? [id number] ? : ? 1970 (Age: 43) ??F ? Collect Date: ? 02/21/2014 ? Location: ? [facility] ? Receive Date: ? 02/22/2014 ? Provider: MOLINA HOPKINS DO Copy to: JESSIE CALDERON SOFT WORK WRAPPER LAYER AND EXAMINER ? Final Pathologic Diagnosis: APPENDIX, APPENDECTOMY: - ??Acute appendicitis with organizing serositis. - ??Intraluminal fecalith. Document reviewed and electronically signed by: MANJEET CHA MD Report ??Date: 02/25/2014 17:30 By the signature above, the attending physician certifies that he/she has personally conducted a gross and/or microscopic examination of the described specimens and rendered or confirmed the above diagnosis. Specimen(s) Received: Appendix Clinical History: Acute appendicitis; clinical diagnosis code: ??546.9 Gross Description: ? Received in formalin labelled with proper patient identification (initials L, S) and appendix is a vermiform appendix (6.2 cm in length x 0.9 cm in diameter), with a moderate amount of attached mesoappendix. The proximal margin is stapled. ? The serosa is bass-brown, roughened and focally disrupted with a small amount of adherent fibrinopurulent exudate. The cut surface is bass-pink. The average wall thickness is 0.1 cm with no discernable perforation site. The lumen ranges from 0.3 cm to 0.6 cm in diameter and contains a 0.6 cm fecalith in the proximal appendix as well as a large amount of soft fecal material throughout. The proximal margin is inked blue. ? The section adjacent to the proximal stapled margin, two patient representative cross sections and one half of the longitudinally bisected distal tip are submitted in 1. Karuna Amaral 02/22/2014 12:23 PM End of Report [facility] 02/21/2014 8:40 EST 02/22/2014 8:40 EST us Molina Hopkins DO PATHOLOGY ORDERABLES Final Res ult [facility] [address] [place] [address] documented in this encounter Visit Diagnoses Not on filedocumented in this encounter Care Teams Metal Reed Tuner Relationship Specialty Start Date End Date Genet Sauer MD [address] [place] [address] PCP - General 09/19/12 documented as of this encounter
--- OUTSIDE RECORDS SUMMARY | 2024-03-29 08:17 | XMS_ITS | Encounter Summary ---
Author Organization [facility] Address [address] [place] [address] Care Team Providers Care Margin Analyst Name Role Phone Genet Sauer MD Primary Care Provider [phone] Encounter Details Date Type Department Care Team (Late st Contact Info) Description 04/30/2021 Lab Requisition [facility] Pathology & Laboratory Medicine - [address] [address] Outr Resulting Lab, Provider Social History Tobacco [...] Procedure Name Priority Date/Time Associated Diagnosis Comments ZZCOVID-19 TEST [facility] PCR Today 04/30/2021 9:00 EST COVID-19 TESTING Routine 04/30/2021 9:00 EST documented in this encounter Results * COVID-19 TEST [facility] PCR (04/30/2021 9:00 EST) Swab 04/30/2021 9:00 EST 04/30/2021 22:14 EST us Provider Outr Resulting Lab MICROBIOLOGY - GENER AL ORDERABLES Final Result [facility] [address] [place] [address] * COVID-19 TESTING (04/30/2021 9:00 EST) COVID-19 rt-PCR Result Negative Negative 05/01/2021 17:04 EST [facility] Comment: This test has not been FDA cleared or approved. This test has been authorized by FDA under an EUA for use by authorized laboratories. This test has been authorized only for detection of nucleic acid from 2019-nCoV, not for any other viruses or pathogens. This test is only authorized for the duration of the declaration that circumstances exist justifying the authorization of emergency use of in vitro diagnostic tests for detection and/or diagnosis of 2019-nCoV under section 564(b)(1) of Act, 21 U.S.C ?? 360bbb-3(b) (1), unless the authorization is terminated or revoked sooner. Negative results do not preclude 2019-nCoV infection and should not be used as the sole basis for treatment or other patient management decisions. Negative results must be combined with clinical observations, patient history, and epidemiological information. Testing was performed using the rubi SARS-CoV-2 assay ([employer] on the Rubi 6800 System Performing Lab Rubi 6800 [facility] 05/01/2021 17:04 EST [facility] Swab 04/30/2021 9:00 EST 04/30/2021 22:14 EST us Provider Outr Resulting Lab MICROBIOLOGY - GENER AL ORDERABLES Final Result [facility] [address] [place] [address] documented in this encounter Visit Diagnoses Not on filedocumented in this encounter Care Teams Margin Analyst Relationship Specialty Start Date End Date Genet Sauer MD [address] [place] [address] PCP - General 09/19/12 documented as of this encounter
--- OUTSIDE RECORDS SUMMARY | 2024-03-29 08:17 | XMS_ITS | Encounter Summary ---
Author Organization [facility] Address [address] [place] [address] Care Team Providers Care Drop Wire Aliner Name Role Phone Genet Sauer MD Primary Care Provider [phone] Unknown, Provider Primary Care Provider Unava ilable Encounter Details Date Type Department Care Team (Late st Contact Info) Description 07/20/2007 Results Only [facility] - Maple conversion [address] [place] [address] Abbie Waldron, [address] [place] [address] Social History Tobacco Use Types Packs/Day Years [...] Procedure Name Priority Date/Time Associated Diagnosis Comments HPV DETECTION, HIGH RISK TYPES Routine 07/20/2007 14:50 EDT CYTOPATHOLOGY Routine 07/20/2007 0:00 EDT documented in this encounter Results * HUMAN PAPILLOMA VIRUS DNA TEST (07/20/2007 14:50 EDT) Specimen Description Cervix, ThinPrep vial [facility] Result Negative for HPV types 16, 18, 31, 33, 35, 39, 45, 51, 52, 56, 58, 59, and 68. [facility] Report Status Final [id number] [facility] 07/20/2007 14:5 0 EDT 07/30/2007 20:20 EDT Abbie Waldron EFFICIENCY MINER BLASTING MICROBIOLOGY - GENERAL ORDER [place] Final Result [facility] [address] [place] [address] * CYTOPATHOLOGY (07/20/2007 0:00 EDT) Pathology Report: CYTOPATHOLOGY REPORT Reports generated via electronic interface contain original data; however they are lacking the format of the original report. Caution should be taken when reading/interpreti ng unformatted reports. Name: ? JESSIE BRO ? Accession #: ? [id number] : ? 1970 (Age: 36) ??F ?Collect Date: ? 07/20/2007 Location: ? [facility] ? Receive Date: ? 07/21/2007 Provider: ?ABBIE WALDRON EFFICIENCY MINER BLASTING Copy to: ? Specimen/Source: ?ThinPrep Pap Test, Cervix/Endocervix, processed on [employer] ThinPrep Imaging System, with manual evaluation Last Menstrual Period: ? Hormonal/Contracep tive Status: ? Depo-Provera Other: ? HPVDX - HPV testing requested regardless of diagnosis on current ThinPrep Pap test. ? SPECIMEN ADEQUACY ? Unsatisfactory for Evaluation, - insufficient numbers of squamous epithelial cells (less than 10% of expected cellularity) GENERAL CATEGORIZATION ? Specimen processed and examined, but unsatisfactory for evaluation of epithelial abnormality. Recommend repeat Pap test or further follow up, as clinically indicated. ? Document reviewed and electronically signed by: ? PETE Gonzalez(ASCP) ? Report Date: ??07/28/2007 11:17 End of Report [facility] 07/20/2007 07/21/2007 us Abbie Waldron EFFICIENCY MINER BLASTING PATHOLOGY ORDERABLES Final R esult [facility] [address] [place] [address] documented in this encounter Visit Diagnoses Not on filedocumented in this encounter Care Teams Drop Wire Aliner Relationship Specialty Start Date End Date Genet Sauer MD [facility] [address] [place], [place] [id number] PCP - General 10/01/08 09/18/12 Unknown, MD Willie PCP - General 08/26/08 09/30/08 documented as of this encounter
--- OUTSIDE RECORDS SUMMARY | 2024-03-29 08:17 | XMS_ITS | Encounter Summary ---
Author Organization [facility] Address [address] [place] [address] Care Team Providers Care Compensation Business Partner Name Role Phone Genet Sauer MD Primary Care Provider [phone] Encounter Details Date Type Department Care Team (Latest Contact Info) Description 02/26/2014 11:40 EST - 02/26/2014 23:59 EST Hospital Encounter [address] [address] Unknown, Provider, MD Discharge Disposition: Home or Self Care Social History Tobacco Use Types Packs/Day Years Used Date Smoking Tobacco: Never Assessed Comments Unknown Sex and Gender Information Value Date Recorded Sex Assigned at Not on file Legal Sex Female 18:42 EST Gender Identity Not on file Sexual Orientation Not on file documented as of this encounter Discharge Disposition Disposition Code Departure Means Destination Home or Self Detention documented in this encounter Plan of Treatment Not on file documented as of this encounter Visit Diagnoses Not on filedocumented in this encounter Care Teams Compensation Business Partner Relationship Specialty Start Date End Date Genet Sauer MD [address] [place] [address] PCP - General 09/19/12 documented as of this encounter
--- OUTSIDE RECORDS SUMMARY | 2024-03-29 08:17 | XMS_ITS | Encounter Summary ---
Author Organization [facility] Address [address] [place] [address] Care Team Providers Care Journeyman Pipefitter Name Role Phone Alma Davila MD Primary Care Provider Encounter Details Date Type Department Care Team (Late st Contact Info) Description 09/15/2012 Results Only [facility] [phone] Molina Hopkins, DO [address] [place] [address] Social History Tobacco Use Types [...] Date/Time Associated Diagnosis Comments SURGICAL PATHOLOGY Routine 09/15/2012 16 :13 EDT documented in this encounter Results * SURGICAL PATHOLOGY (09/15/2012 16:13 EDT) Pathology Report: SURGICAL PATHOLOGY REPORT Reports generated via electronic interface contain original data; however they are lacking the format of the original report. Caution should be taken when reading/interpreti ng unformatted reports. Name: ? DIEUDONNE JESSIE ? Accession #: ? [id number] ? : ? 1970 (Age: 42) ??F ? Collect Date: ? 09/15/2012 ? Location: ? [facility] ? Receive Date: ? 09/15/2012 ? Provider: MOLINA HOPKINS DO Copy to: ALMA DAVILA MD ? Final Pathologic Diagnosis: A. COLON, RANDOM, BIOPSIES: - ??No specific pathologic features. B. RECTUM, BIOPSIES: - ??No specific pathologic features. ? Document reviewed and electronically signed by: ANGELLA KEMP MD Report ??Date: 09/19/2012 16:18 By the signature above, the attending physician certifies that he/she has personally conducted a gross and/or microscopic examination of the described specimens and rendered or confirmed the above diagnosis. Specimen(s) Received: A. ?Random colon bxs B. ? Rectum bxs Clinical History: ? Colorectal screen; recent hx of constipation + wt loss Gross Description: ? Received in formalin labelled Lebel, Jessie and random colon biopsies are twenty-four yellow-bass soft tissue fragments ranging in size from 0.3 x 0.3 x 0.3 cm to 0.9 x 0.2 x 0.2 cm. ??The specimen is entirely submitted as (A1) through (A6). Received in formalin labelled Lebel, Jessie and rectum biopsies are three yellow-bass soft tissue fragments ranging in size from 0.5 x 0.5 x 0.2 cm to 0.8 x 0.2 x 0.2 cm. ??The specimen is entirely submitted as (B1). ??(Dr. Stern)/[facility] End of Report [facility] 09/15/2012 16:1 3 EDT 09/15/2012 16:13 EDT us Molina Hopkins DO PATHOLOGY ORDERABLES Final Res ult [facility] [address] [place] [address] documented in this encounter Visit Diagnoses Not on filedocumented in this encounter Care Teams Journeyman Pipefitter Relationship Specialty Start Date End Date Alma Davila MD [facility] [address] [place], [place] [id number] PCP - General 10/01/08 09/18/12 documented as of this encounter
--- OUTSIDE RECORDS SUMMARY | 2024-03-29 08:17 | XMS_ITS | Encounter Summary ---
Author Organization [facility] Address [address] [place] [address] Care Team Providers Care Dining Room Captain Name Role Phone Genet Sauer MD Primary Care Provider [phone] Encounter Details Date Type Department Care Team (Late st Contact Info) Description 07/17/2020 Lab Requisition [facility] Pathology & Laboratory Medicine - [address] [address] Outr Resulting Lab, Provider Social History Tobacco [...] Comments ZZCOVID-19 TEST [facility] PCR Today 07/17/2020 10:43 EDT COVID-19 TESTING Routine 07/17/2020 10:4 3 EDT documented in this encounter Results * COVID-19 TEST [facility] PCR (07/17/2020 10:43 EDT) Swab ENTIRE NASOPHARYNX / Unknown 07/17/2020 10:43 EDT 07/17/2020 20:09 EDT us Provider Outr Resulting Lab MICROBIOLOGY - GENER AL ORDERABLES Final Result Performing Organization Address City/State/[facility] Co de Phone Number [facility] [address] [place] [address] * COVID-19 TESTING (07/17/2020 10:43 EDT) COVID-19 rt-PCR Result Negative Negative 07/18/2020 12:48 EDT [facility] Comment: This test has not [...] performed using the rubi SARS-CoV-2 assay ([employer] on the Rubi 6800 System Performing Lab Rubi 6800 [facility] 07/18/2020 12:48 EDT [facility] Swab 07/17/2020 10:4 3 EDT 07/17/2020 20:09 EDT us Provider Outr Resulting Lab MICROBIOLOGY - GENER AL ORDERABLES Final Result Performing Organization Address [facility] Co de Phone Number [facility] [address] [place] [address] documented in this encounter Visit Diagnoses Not on filedocumented in this encounter Care Teams Dining Room Captain Relationship Specialty Start Date End Date Genet Sauer MD [address] [place] [address] PCP - General 09/19/12 documented as of this encounter
--- OUTSIDE RECORDS SUMMARY | 2024-03-29 08:17 | XMS_ITS | Encounter Summary ---
Author Organization [facility] Address [address] [place] [address] Care Team Providers Care Baking Powder Mixer Name Role Phone Genet Sauer MD Primary Care Provider [phone] Unknown, Provider Primary Care Provider Unava ilable Encounter Details Date Type Department Care Team (Late st Contact Info) Description 09/14/2007 Results Only [facility] - Maple conversion [address] [place] [address] Ashley Abdi MD [address] [place] [address] [place] [address] Social History Tobacco Use Types Packs/Day Years [...] Date/Time Associated Diagnosis Comments SURGICAL PATHOLOGY Routine 09/14/2007 0:00 EDT documented in this encounter Results * SURGICAL PATHOLOGY (09/14/2007 0:00 EDT) Pathology Report: SURGICAL PATHOLOGY REPORT Reports generated via electronic interface contain original data; however they are lacking the format of the original report. Caution should be taken when reading/interpreti ng unformatted reports. Name: ? DIEUDONNE JESSIE ? Accession #: ? [id number] ? : ? 1970 (Age: 37) ??F ? Collect Date: ? 09/14/2007 ? Location: ? [facility] ? Receive Date: ? 09/14/2007 ? Provider: ASHLEY ABDI MD Copy to: CASSIA LOMELI MD ? Final Pathologic Diagnosis: ? Endometrium, curettage: 1. ?Inactive endometrium with exogenous stromal progestin effect. 2. ? Stromal breakdown changes present. 3. ? Fragments of benign endocervical tissue. Document reviewed and electronically signed by: Salvador Crisostomo MD Report ??Date: 09/19/2007 17:38 By the signature above, the attending physician certifies that he/she has personally conducted a gross and/or microscopic examination of the described specimens and rendered or confirmed the above diagnosis. Specimen(s) Received: ? Endometrial curettings Clinical History: ? Menorrhagia; pt on Provera; LMP: ongoing Gross Description: ? Received in formalin labelled Lebel and endometrial curettings is a 1.5 cc aggregate of red-brown, focally bass soft tissue admixed with a small amount of light bass mucinous material. ??The specimen is submitted entirely in one cassette. ??(Joselito Gifford)/[facility] End of Report [facility] 09/14/2007 09/14/2007 16: 53 EDT us Ashley Abdi MD PATHOLOGY ORDERABLES Final Resu lt [facility] [address] [place] [address] documented in this encounter Visit Diagnoses Not on filedocumented in this encounter Care Teams Baking Powder Mixer Relationship Specialty Start Date End Date Genet Sauer MD [facility] [address] [place] [address] PCP - General 10/01/08 09/18/12 Unknown, Provider, PCP - General 08/26/08 09/30/08 documented as of this encounter
--- OUTSIDE RECORDS SUMMARY | 2024-03-29 08:17 | XMS_ITS | Encounter Summary ---
Author Organization [facility] Address [address] [place] [address] Care Team Providers Care Wildlife Protector Name Role Phone Genet Sauer MD Primary Care Provider [phone] Encounter Details Date Type Department Care Team (Late st Contact Info) Description 06/30/2022 Lab Requisition [facility] Pathology & Laboratory Medicine - [address] [address] Karuna Santana, DO [address] [place], [place] [id number] Encounter for other general examination Social History [...] Date/Time Associated Diagnosis Comments SURGICAL PATHOLOGY Today 06/29/2022 10 :05 EDT Encounter for other general examination documented in this encounter Results * SURGICAL PATHOLOGY (06/29/2022 10:05 EDT) Note to Patient The following pathology results have been interpreted by your pathologist and may be available to you before your health provider has had the opportunity to review them. Please allow time for your provider to receive these results and explore management options, if applicable. 07/06/2022 16:22 EDT [facility] Final Diagnosis A. SOFT TISSUE, ? LIPOMA? , SITE NOT FURTHER SPECIFIED, EXCISION: - Mature adipose tissue, consistent with lipoma. - Focal fibrous and fibrovascular tissue with no specific pathologic features. 07/06/2022 16:22 [facility] Attestation There was significant resident/fellow involvement in the diagnostic evaluation of this case. By the signature below, the attending physician certifies that they have personally conducted a gross and/or microscopic examination of the described specimens and rendered or confirmed the above diagnosis. 07/06/2022 16:22 [facility] at 1622 Clinical History Lipoma 07/06/2022 16:22 [facility] Gross Description A. Received in formalin labelled with proper patient identification (initials L, S) and lipoma is an aggregate of disrupted yellow lobulated adipose tissue fragments (4.8 g, 3.5 x 2.6 x 1.1 cm). No firm areas are identified. Sectioning through the fragments reveals yellow lobulated adipose tissue and a small amount of white fibrous connective tissue without hemorrhage or necrosis. Scientific Programmer Analyst sections are submitted in A1 and A2. HEATHER DELVALLE([facility]) 06/30/2022 8:40 07/06/2022 16:22 [facility] Resident/Alec w: Enrrique Muñiz MD 07/06/2022 16:22 T [facility] Performing Lab [facility] 07/06/2022 16:22 T [facility] Scanned Images 07/06/2022 16:22 [facility] Tissue SOFT TISSUE / Unknown 06/29/2022 10:05 EDT 06/30/2022 8:24 EDT us Karuna Santana DO PATHOLOGY ORDERABLES Final Re sult [facility] [address] [place] [address] documented in this encounter Visit Diagnoses Diagnosis Encounter for other general examination documented in this encounter Care Teams Wildlife Protector Relationship Specialty Start Date End Date Genet Sauer MD [address] [place] [address] PCP - General 09/19/12 documented as of this encounter
--- OUTSIDE RECORDS SUMMARY | 2024-03-29 08:17 | XMS_ITS | Encounter Summary ---
Author Organization [facility] Address [address] [place] [address] Care Team Providers Care Board Certified Orthodontist Name Role Phone Genet Sauer MD Primary Care Provider [phone] Encounter Details Date Type Department Care Team (Late st Contact Info) Description 12/06/2020 Lab Requisition [facility] Pathology & Laboratory Medicine - [address] [address] Outr Resulting Lab, Provider Social History Tobacco [...] Procedure Name Priority Date/Time Associated Diagnosis Comments ANCA, IFA Routine 12/05/2020 12:00 EDT documented in this encounter Results * ANCA, IFA (12/05/2020 12:00 EDT) Lab ANCA Interpretation Negative Negative 12/08/2020 15:59 EDT [facility] Comment: No titer performed, ANCA Screen is negative. Results were obtained with the INOVA NOVA Lite ANCA kit by indirect immunofluorescence. Blood VENOUS BLOOD / Unknown 12/05/2020 12:00 EDT 12/07/2020 16:08 EDT us Provider Outr Resulting Lab IMMUNOLOGY AND SEROL OGY ORDERABLES Final Result [facility] [address] [place] [address] documented in this encounter Visit Diagnoses Not on filedocumented in this encounter Care Teams Board Certified Orthodontist Relationship Specialty Start Date End Date Genet Sauer MD [address] [place] [address] PCP - General 09/19/12 documented as of this encounter
--- OUTSIDE RECORDS SUMMARY | 2024-03-29 08:17 | XMS_ITS | Encounter Summary ---
Author Organization [facility] Address [address] [place] [address] Care Team Providers Care Global Program Manager Name Role Phone Genet Sauer MD Primary Care Provider [phone] Encounter Details Date Type Department Care Team (Late st Contact Info) Description 12/06/2020 Lab Requisition [facility] Pathology & Laboratory Medicine - [address] [id number] Outr Resulting Lab, Provider Social History Tobacco [...] Procedure Name Priority Date/Time Associated Diagnosis Comments MAGNESIUM Routine 12/05/2020 12:00 EDT documented in this encounter Results * MAGNESIUM (12/05/2020 12:00 EDT) Magnesium 1.8 1.7 - 2.8 mg/dL 12/07/2020 16:22 EDT [facility] Blood VENOUS BLOOD / Unknown 12/05/2020 12:00 EDT 12/07/2020 16:08 EDT us Provider Outr Resulting Lab CHEMISTRY & BLOOD GA S ORDERABLES Final Result [facility] [address] [place] [address] documented in this encounter Visit Diagnoses Not on filedocumented in this encounter Care Teams Global Program Manager Relationship Specialty Start Date End Date Genet Sauer MD [address] [place] [address] PCP - General 09/19/12 documented as of this encounter
--- OUTSIDE RECORDS SUMMARY | 2024-03-29 08:17 | XMS_ITS | Encounter Summary ---
Author Organization [facility] Address [address] [place] [address] Care Team Providers Care Tool Clerk Name Role Phone Genet Sauer MD Primary Care Provider [phone] Encounter Details Date Type Department Care Team (Late st Contact Info) Description 01/15/2020 Lab Requisition [facility] Pathology & Laboratory Medicine - [address] [address] Outr Resulting Lab, Provider Social History Tobacco [...] Procedure Name Priority Date/Time Associated Diagnosis Comments OVA/PARASITE EXAM Routine 01/14/2020 17: 56 EDT documented in this encounter Results * OVA/PARASITE EXAM (01/14/2020 17:56 EDT) Parasite No ova and parasites seen. 01/16/2020 14:[address] [facility] Feces SPECIMEN FROM RECTUM / Unknown 01/14/2020 17:56 EDT 01/15/2020 20:38 EDT Narrative [facility] - 01/16/2020 14:31 EDT (If Cryptosporidium, Cyclospora, or Microsporidium are suspected, specific tests must be requested.) Single negative specimen does not rule out the possibility of a parasitic infection. us Provider Outr Resulting Lab MICROBIOLOGY - GENER AL ORDERABLES Final Result [facility] [address] [place] [address] documented in this encounter Visit Diagnoses Not on filedocumented in this encounter Care Teams Tool Clerk Relationship Specialty Start Date End Date Genet Sauer MD [address] [place] [id number] PCP - General 09/19/12 documented as of this encounter
--- OUTSIDE RECORDS SUMMARY | 2024-03-29 08:17 | XMS_ITS | Encounter Summary ---
Author Organization [facility] Address [address] [place] [address] Care Team Providers Care Zyglo Inspector Name Role Phone Genet Sauer MD Primary Care Provider [phone] Encounter Details Date Type Department Care Team (Latest Contact Info) Description 08/08/2018 12:18 EDT - 08/08/2018 23:59 EDT Hospital Encounter [address] [address] Unknown, Provider, MD Discharge Disposition: Auto Discharge Social History Tobacco Use Types Packs/Day Years Used Date Smoking Tobacco: Never Assessed Comments Unknown Sex and Gender Information Value Date Recorded Sex Assigned at Not on file Legal Sex Female 18:42 EST Gender Identity Not on file Sexual Orientation Not on file documented as of this encounter Discharge Disposition Disposition Code Departure Means Destination Auto Discharge Home documented in this encounter Plan of Treatment Not on file documented as of this encounter Visit Diagnoses Not on filedocumented in this encounter Care Teams Zyglo Inspector Relationship Specialty Start Date End Date Genet Sauer MD [address] [place] [id number] PCP - General 09/19/12 documented as of this encounter
--- OUTSIDE RECORDS SUMMARY | 2024-03-29 08:17 | XMS_ITS | Encounter Summary ---
Author Organization [facility] Address [address] [place] [address] Care Team Providers Care Firefighter Name Role Phone Unavailable Primary Care Provider Unavailabl e Encounter Details Date Type Department Care Team (Late st Contact Info) Description 08/22/2008 Orders Only [facility] [place] [place] [address] [place] [phone] Kalia Combs MD [address] [place] [id number] Social History Tobacco Use Types Packs/Day Years [...] Date/Time Associated Diagnosis Comments SURGICAL PATHOLOGY Routine 08/22/2008 0:00 EDT documented in this encounter Results * SURGICAL PATHOLOGY (08/22/2008 0:00 EDT) Pathology Report: SURGICAL PATHOLOGY REPORT ? Reports generated via electronic interface contain original data; ? however they are lacking the format of the original report. ? Caution should be taken when reading/interpreti ng unformatted reports. ? Name: ? LEBEL, JESSIE ? Accession #: ? [id number] ? : ? 1970 (Age: 37) ??F ? Collect Date: ? 08/22/2008 ? Location: ? [facility] ? Receive Date: ? 08/23/2008 ? Provider: KALIA COMBS MD ? Copy to: ALMA READY MD ? Final Pathologic Diagnosis: ? A. ?Terminal ileum, biopsies: ? 1. ?Small bowel mucosa with no specific pathologic features. ? 2. ? Negative for active and chronic ileitis. ? B. ?Colon, ascending, biopsies: ? 1. ?Colonic mucosa with no specific pathologic features. ? 2. ? Negative for active and chronic colitis. ? C. ?Colon, transverse, biopsies: ? 1. ?Colonic mucosa with no specific pathologic features. ? 2. ? Negative for active and chronic colitis. ? D. ?Colon, sigmoid, biopsies: ? 1. ?Colonic mucosa with no specific pathologic features. ? 2. ? Negative for active and chronic colitis. ? E. ?Rectum, biopsies: ? 1. ?Colonic mucosa with no specific pathologic features. ? 2. ? Negative for active and chronic colitis. ? Document reviewed and electronically signed by: ? Maribell Rico MD ? Report ??Date: 08/28/2008 10:26 ? By the signature above, the attending physician certifies that he/she has ? personally conducted a gross and/or microscopic examination of the described ? specimens and rendered or confirmed the above diagnosis. ? Specimen(s) Received: ? A. ?Bx terminal ileum ? B. ? Bx ascending colon ? C. ? Bx transverse colon ? D. ? Bx sigmoid ? E. ? Bx rectum ? Clinical History: ? Diarrhea ? Gross Description: ? Received in Hollande's solution labelled Jessie Sanchez and biopsy ? terminal ileum are two pink-bass irregular soft tissues, 0.4 x 0.2 x 0.1 cm and 0.4 x 0.3 x 0.1 cm. ??Submitted in toto as (A). ? Received in Re-vinyl's solution labelled LebelBonniean and biopsy ascending ?? colon are two pink-bass irregular soft tissues, 0.7 x 0.2 x 0.1 cm and 0.8 x 0.1 x 0.1 cm. ??Submitted in toto as (B). ? Received in Re-vinyl's solution labelled Jessie Sanchez and biopsy transverse ?? colon are three pink-bass irregular soft tissues ranging from 0.1 x 0.1 x 0.1 cm to 0.5 x 0.2 x 0.1 cm. ??Submitted in toto as (C). ? Received in Re-vinyl's solution labelled LebelBonniean and biopsy sigmoid are three pink-bass irregular soft tissues ranging from 0.1 x 0.1 x 0.1 cm to 0.4 x ?? 0.2 x 0.2 cm. ??Submitted in toto as (D). ? Received in Hollande's solution labelled Lebel, Jessie and biopsy rectum are two pink-bass irregular soft tissues, each 0.3 x 0.2 x 0.2 cm. ??Submitted in toto as (E). ??(Kristofer Amaral)/ljn ? End of Report ? YAMILETH DEMPSEY 08/22/2008 08/23/2008 11: 45 EDT us Kalia Combs MD PATHOLOGY ORDERABLES Final Result [facility] [address] [place] [address] documented in this encounter Visit Diagnoses Not on filedocumented in this encounter
--- OUTSIDE RECORDS SUMMARY | 2024-03-29 08:17 | XMS_ITS | Encounter Summary ---
Author Organization [facility] Address [address] [place] [address] Care Team Providers Care Sex Worker Or Escort Name Role Phone Genet Sauer MD Primary Care Provider [phone] Encounter Details Date Type Department Care Team (Late st Contact Info) Description 08/08/2018 Results Only [facility] [phone] Sarina Zapata MD [address] [place] [address] [place] [phone] Social History Tobacco Use Types Packs/Day Years [...] Date/Time Associated Diagnosis Comments SURGICAL PATHOLOGY Routine 08/08/2018 15 :44 EDT documented in this encounter Results * SURGICAL PATHOLOGY (08/08/2018 15:44 EDT) Pathology Report: SURGICAL PATHOLOGY REPORT Reports generated via electronic interface contain original data; however they are lacking the format of the original report. Caution should be taken when reading/interpretin g unformatted reports. Name: ? DIEUDONNE JESSIE ? Accession #: ? [id number] ? : ? 1970 (Age: 47) ??F ? Collect Date: ? 08/08/2018 ? Location: ? [facility] ? Receive Date: ? 08/08/2018 ? Provider: SARINA ZAPATA MD Copy to: SHARON GONZALEZ PAC ? Final Pathologic Diagnosis: A. SMALL BOWEL, DUODENUM, BIOPSY: - Duodenal mucosa with no specific pathologic features. B. STOMACH, ANTRUM, BIOPSY: - Erosive reactive gastropathy with focal goblet cells. See comment. C. GASTROESOPHAGEAL JUNCTION, BIOPSY: - Squamocolumnar junctional mucosa with reflux esophagitis. See comment. - Negative for intestinal metaplasia; negative for dysplasia. Comment: Histologic sections of the antral biopsy (part B) demonstrate marked reactive gastropathy and foci of goblet cells are seen. If truly from the antrum, this represents focal intestinal metaplasia. If instead the biopsy was obtained from the pylorus, this would represent normal transitional mucosa. Clinical and endoscopic correlation is essential. This entire upper GI biopsy series is negative for dysplasia. Audio Visual Collections Coordinator slides of this case were reviewed at the intradepartmental consultation conference. Dr. Bay Kee 08/11/2018 1:46 PM Document reviewed and electronically signed by: BAY KEE MD Report ??Date: 08/11/2018 13:48 By the signature above, the attending physician certifies that he/she has personally conducted a gross and/or microscopic examination of the described specimens and rendered or confirmed the above diagnosis. Specimen(s) Received: A. ??Duodenum bx B. ??Antrum bx C. ??GE junction bx Clinical History: Abdominal pain Gross Description: A. ?Received in formalin labelled with proper patient identification (initials L, S) and duodenum BX are four pink-bass tissues (0.2 x 0.2 x 0.2 cm to 0.3 x 0.2 x 0.2 cm). Entirely submitted in A1. B. ?Received in formalin labelled with proper patient identification (initials L, S) and antrum BX are three pink-bass tissues (0.2 x 0.2 x 0.2 cm, 0.2 x 0.2 x 0.2 cm and 0.3 x 0.2 x 0.2 cm). Entirely submitted in B1. C. ?Received in formalin labelled with proper patient identification (initials L, S) and GE junction BX are two pink-bass tissues (0.3 x 0.3 x 0.2 cm and 0.5 x 0.2 x 0.2 cm). Entirely submitted in C1. HEATHER Pereira (ASCP) 08/08/2018 3:55 PM End of Report [facility] 08/08/2018 15:4 4 EDT 08/08/2018 15:44 EDT us Sarina Zapata MD PATHOLOGY ORDERABLES Fin al Result [facility] [address] [place] [address] documented in this encounter Visit Diagnoses Not on filedocumented in this encounter Care Teams Sex Worker Or Escort Relationship Specialty Start Date End Date Genet Sauer MD [address] [place] [address] PCP - General 09/19/12 documented as of this encounter
[2024-03-30 13:09] LABS: Tacrolimus 8.2 ng/mL (See Note)
== END 2024-03-29 08:10 | disposition home or self-care (01) ==
PROVIDERS: PCP Student in an Organized Health Care Education/Training Program; Visit Provider Registered Nurse
DX: Z94.2 Lung transplant status (principal)
CPT/HCPCS: 36415; 80048; 80197; 83735; 84100

== ENCOUNTER 2024-04-21 17:11 | Emergency (ER) | payer MEDICARE, SELFPAY ==
[2024-04-21 17:13] VITALS: BP 147/89; PULSE 111; RESP 18; TEMP 36.6; O2SAT 98
[2024-04-21 17:49] VITALS: BP 130/91; PULSE 106; RESP 18; O2SAT 99
[2024-04-21 17:50] LABS: Abs Immature Grans 0.02 10^3/uL (0.0-0.06); Absolute Basophil Count 0.03 10^3/uL (0.0-0.2); Absolute Eosinophil Count 0.01 10^3/uL (0.0-0.7); Absolute Lymphocyte Count 0.47 10^3/uL (1.2-3.4); Absolute Monocyte Count 0.29 10^3/uL (0.1-0.8); Absolute Neutrophil Count 6.37 10^3/uL (1.2-6.7); Basophils % 0.4 %; Eosinophils % 0.1 %; HCT 27.8 % (36.0-46.0); HGB 9.1 g/dL (11.2-15.7); Immature Grans % 0.3 %; Lymphocytes % 6.5 %; MCH 31.5 pg (27.0-33.0); MCHC 32.7 % (32.0-36.0); MCV 96 fL (80-95); MPV 9.8 fL (8.0-11.0); Neutrophils % 88.7 %; Platelet Count 256 10^3/uL (130-400); RBC 2.89 10^6/uL (3.93-5.22); RDW 16.4 % (11.7-14.6); WBC 7.19 10^3/uL (4.4-10.8)
[2024-04-21 18:05] LABS: ALT 15 U/L (14-59); AST 12 U/L (15-37); Albumin 2.7 g/dL (3.4-5.0); Alkaline Phosphatase 113 U/L (46-116); Anion Gap 10.6 mmol/L (3-11); BUN 18 mg/dL (7-18); Bilirubin, Total 0.15 mg/dL (0.2-1.0); CO2 19.4 mmol/L (21.0-32.0); CREATININE 1.8 mg/dL (0.55-1.02); Calcium 8.7 mg/dL (8.5-10.1); Chloride 107 mmol/L (98-107); Estimated GFR 33.27 (mL/min/1.73m2); Glucose 228 mg/dL (74-106); Magnesium 1.2 mg/dL (1.8-2.4); Potassium 4.6 mmol/L (3.5-5.1); Sodium 137 mmol/L (136-145)
[2024-04-21 18:07] LABS: Troponin I 21 ng/L (<or=51)
[2024-04-21 18:09] VITALS: PULSE 88; RESP 16; O2SAT 97
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
[2024-04-21] MEDS: MAGNESIUM SULFATE 2 GM/50 ML BAG IV_INF (18:20)
[2024-04-21] MEDS: Lactated Ringers 1,000 ML 1000 ML IV (18:21)
[2024-04-21 18:47] LABS: NT-proBNP 5993 pg/mL (<300)
--- OUTSIDE RECORDS SUMMARY | 2024-04-21 18:50 | XMS_ITS | Encounter Summary ---
Author Organization [place] [address] Care Team Providers Care Ditching Machine Operator Name Role Phone Belkys Bundy DO Primary Care Provider [phone] Encounter Details Date Type Department Care Team (Late st Contact Info) Description 04/13/2024 [place]phone [place] [phone] Emily Starr RN Social History Tobacco Use [...] Telephone Encounter - Kira Thayer MD - 04/13/2024 4:55 PM EST Spoke with Suleiman, form re-updated and ready to be re-faxed. Kira Thayer MD * Telephone Encounter - Emily Starr RN - 04/13/2024 3:[address] Thayer notified. * Telephone Encounter - Emily Starr RN - 04/13/2024 3:01 PM EST Copied from [facility] #[id number]. Topic: Specialty Dept CRMs - Generic Call >> Apr 13, 2024 2:27 PM Alyx Black wrote: Specialist: Kira Thayer Relationship (if other than patient-full name): Jones- friend Reason for Call: Jones is following up on the signed FMLA forms that needs to sent as his employer has not received it yet and need it ac. Please fax the signed form to the fax number listed . Patient has upcoming FUV on 04/20 but hoping to get this done before that . documented in this encounter Plan of Treatment Upcoming Encounters Date Type Department Care Team (Late st Contact Info) Description 08/27/2024 4:00 PM EDT Office [place] [phone] Kira Thayer MD [facility] [place] [address] documented as of this encounter Visit Diagnoses Not on filedocumented in this encounter Care Teams Ditching Machine Operator Relationship Specialty Start Date End Date Belkys Bundy DO [address] [place] [id number] PCP - General Family Medicine 03/21/19 documented as of this encounter
--- OUTSIDE RECORDS SUMMARY | 2024-04-21 18:50 | XMS_ITS | Encounter Summary ---
[place] [address] Care Team Providers Care Veneer Sander Name Role Phone Belkys Bundy DO Primary Care Provider +1- [phone] Reason for Referral * Consultation (Routine) - Authorized Specialty Diagnoses / Procedures Referred By Rossy levine Referred To Contact Pulmonology Diagnoses Other specified counseling Awaiting organ transplant status Dyspnea, unspecified Other abnormalities of breathing Chronic obstructive pulmonary disease, unspecified ENCOUNTER FOR BIPAP USE COUNSELING, LUNG TRANSPLANT CANDIDATE. PLEASE EVAL FOR C-PAP/BI-PAP PER [facility] PULM [facility] Belkys Bundy DO [address] [place] [address] [facility] [address] [place] [address] Referral ID Status Reason Start Date Expiration Date Visits Requested Visits Authorized [id number] Authorized Consult, Test & Treat PCP Updated and/or Approved 10/27/2023 04/28/2024 6 6 Encounter Details Date Type Department Care Team (Latest Contact Info) Description 11/22/2023 Transcribe Orders eDH Incoming Referrals [phone] Belkys Bundy DO [address] [place], [place] [id number] Other specified counseling Social History Tobacco Use [...] 4:00 PM EDT Office [place] [address] Kira Thayer MD [facility] [address] [place] [address] Scheduled Referrals Name Type Priority Associated Diagnoses Order Schedule Referral to Pulmonology Outpatient Referral Routine Other specified counseling Ordered: 11/22/2023 documented as of this encounter Visit Diagnoses Diagnosis Other specified counseling documented in this encounter Care Teams Veneer Sander Relationship Specialty Start Date End Date Belkys Bundy DO [address] [place] [address] PCP - General Family Medicine 03/21/19 documented as of this encounter
--- OUTSIDE RECORDS SUMMARY | 2024-04-21 18:50 | XMS_ITS | Encounter Summary ---
Author Organization [facility] Address [facility] [place] [address] Care Team Providers Care Crayon Sorting Machine Feeder Name Role Phone Belkys Bundy DO Primary Care Provider +1- [phone] Encounter Details Date Type Department Care Team (Late st Contact Info) Description 07/08/2023 Notes [place] [address] Kira Thayer MD [facility] [address] [place] [address] Social History Tobacco Use Types Packs/Day Years [...] reached out after lung transplant evaluation at [facility], reporting the recommended she discuss nocturnal bipap with us. Presumably this is related to finding of hypercarbia on labs (ECHO reviewed, does not show RV strain or elevated PA pressures.) Prior VBG fall 2022 did not demonstrate significant hypercarbia, and prior overnight oximetry on 2LNC O2 11/2022 did not demonstrate desaturation. We am requesting lab results including ABG/VBG from [facility], and am ordering repeat overnight oximetry to be performed on 2L NC O2 now (can be done through [facility] PFT lab, similar to prior overnight [...] 4:00 PM EDT Office [place] [address] Kira Thayer MD [facility] DR PULMONARY [place] [address] documented as of this encounter Visit Diagnoses Not on filedocumented in this encounter Care Teams Crayon Sorting Machine Feeder Relationship Specialty Start Date End Date Belkys Bundy DO [address] [place] [address] PCP - General Family Medicine 03/21/19 documented as of this encounter
--- OUTSIDE RECORDS SUMMARY | 2024-04-21 18:50 | XMS_ITS | Encounter Summary ---
[place] [address] Care Team Providers Care Road Crew Member Name Role Phone Belkys Bundy DO Primary Care Provider +1- [phone] Reason for Referral * Allergy Testing (Routine) - Authorized Specialty Diagnoses / Procedures Referred By Rossy levine Referred To Contact Allergy Diagnoses Allergy status to other antibiotic agents Adverse effect of other systemic antibiotics, initial encounter Belkys Bundy DO [address] [place] [address] [facility] [address] [place] [address] Referral ID Status Reason Start Date Expiration Date Visits Requested Visits Authorized [id number] Authorized Consult, Test & Treat PCP Updated and/or Approved 09/21/2023 09/20/2024 6 6 Encounter Details Date Type Department Care Team (Latest Contact Info) Description 09/21/2023 Transcribe Orders eDH Incoming Referrals [phone] Belkys Bundy DO [address] [place] [phone] Allergy status to other antibiotic agents; Adverse [...] 4:00 PM EDT Office [place] [address] Kira Thayer MD [facility] [place] [address] Scheduled Referrals Name Type Priority Associated Diagnoses Orde r Schedule Referral to Allergy Outpatient Referral Routine Allergy status to other antibiotic agents Adverse effect of other systemic antibiotics, initial encounter Ordered: 09/21/2023 documented as of this encounter Visit Diagnoses Diagnosis Allergy status to other antibiotic agents Adverse effect of other systemic antibiotics, initial encounter documented in this encounter Care Teams Road Crew Member Relationship Specialty Start Date End Date Belkys Bundy DO [address] [place] [address] PCP - General Family Medicine 03/21/19 documented as of this encounter
--- OUTSIDE RECORDS SUMMARY | 2024-04-21 18:50 | XMS_ITS | Encounter Summary ---
Author Organization [facility] [place] [address] Care Team Providers Care Scheme Technician Name Role Phone Belkys Bundy Primary Care Provider +1- [phone] Encounter Details Date Type Department Care Team (Late st Contact Info) Description 03/01/2024 [place] [address] Yesenia Nino, RN Social History Tobacco Use [...] 1:47 PM EST [place] paperwork faxed to [employer] HR department. Fax submission confirmation time stamped for 03/01/2024 @ 2510. 5 pages with cover sheet. Copy sentto [...] - 03/01/2024 11:13 AM EST Copied from CRM #[id number]. Topic: Specialty Dept CRMs - Generic Call [...] has been completed. Please call him at [phone]. documented in this encounter Plan of Treatment Upcoming Encounters Date Type Department Care Team (Late st Contact Info) Description 08/27/2024 4:00 PM EDT [place] [address] Kira Thayer MD [facility] [place] [address] documented as of this encounter Visit Diagnoses Not on filedocumented in this encounter Care Teams Scheme Technician Relationship Specialty Start Date End Date Belkys Bundy DO [address] [place] [address] PCP - General Family Medicine 03/21/19 documented as of this encounter
--- OUTSIDE RECORDS SUMMARY | 2024-04-21 18:50 | XMS_ITS | Encounter Summary ---
[place] [address] Care Team Providers Care Hydrometeorological Technician Name Role Phone Belkys Bundy DO Primary Care Provider +1- [phone] Reason for Visit * Reason Onset Date Comments Disability Paperwork 04/20/2024 Encounter Details Date Type Department Care Team (Late st Contact Info) Description 04/20/2024 [place] [address] Emily Starr RN Disability Paperwork Social History [...] Telephone Encounter - Emily Starr RN - 04/20/2024 11:39 AM EST Rec'd original updated [facility] paperwork for Suleiman Seth, from Dr. Thayer. Made copy and sent to scanning for inclusion to patient's records. documented in this encounter Plan of Treatment Upcoming Encounters Date Type Department Care Team (Late st Contact Info) Description 08/27/2024 4:00 PM EDT [place] [address] Kira Thayer MD [facility] [place] [address] documented as of this encounter Visit Diagnoses Not on filedocumented in this encounter Care Teams Hydrometeorological Technician Relationship Specialty Start Date End Date Belkys Bundy DO [address] [place] [address] PCP - General Family Medicine 03/21/19 documented as of this encounter
--- OUTSIDE RECORDS SUMMARY | 2024-04-21 18:50 | XMS_ITS | Encounter Summary ---
[place] [address] Care Team Providers Care Summer Associate Name Role Phone Belkys Bundy DO Primary Care Provider +1- [phone] Reason for Visit * Reason Onset Date Comments Oxygen Dependence 12/19/2023 Overnight Puls e Oximetry Encounter Details Date Type Department Care Team (Late st Contact Info) Description 12/19/2023 [place] [address] Emily Starr RN Oxygen Dependence (Overnight Pulse [...] RN faxed telephone encounter dated 12/16/2023, to [facility], attn: Dr. Belkys Bundy DO. Fax submission confirmation time stamped for 12/19/2023 @ 1509. 4 pages with cover sheet. documented in this encounter Plan of Treatment Upcoming Encounters Date Type Department Care Team (Late st Contact Info) Description 08/27/2024 4:00 PM EDT [place] [address] Kira Thayer MD [facility] [place] [address] documented as of this encounter Visit Diagnoses Not on filedocumented in this encounter Care Teams Summer Associate Relationship Specialty Start Date End Date Belkys Bundy DO [address] [place] [address] PCP - General Family Medicine 03/21/19 documented as of this encounter
--- OUTSIDE RECORDS SUMMARY | 2024-04-21 18:50 | XMS_ITS | Encounter Summary ---
[place] [address] Care Team Providers Care Head Housekeeper Name Role Phone Belkys Bundy Primary Care Provider +1- [phone] Reason for Visit * Reason Onset Date Comments Infection 02/08/2024 Covid-19 Encounter Details Date Type Department Care Team (Late st Contact Info) Description 02/08/2024 Telephone [place] [address] Emily Starr RN Infection (Covid-19) Social History [...] symptoms initially started on 01/31/2024. [place], noting increased coughing and hacking. [...] - 02/08/2024 12:29 PM EDT Copied from CRM #[id number]. Topic: Specialty Dept CRMs - Triage >> [...] 4:00 PM EDT Office [place] [address] Kira Thayer MD [facility] [place] [address] documented as of this encounter Visit Diagnoses Not on filedocumented in this encounter Care Teams Head Housekeeper Relationship Specialty Start Date End Date Belkys Bundy DO [address] [place] [address] PCP - General Family Medicine 03/21/19 documented as of this encounter
--- OUTSIDE RECORDS SUMMARY | 2024-04-21 18:50 | XMS_ITS | Encounter Summary ---
Author Organization [facility] Address [facility] [place] [address] Care Team Providers Care Demo Coordinator Name Role Phone Belkys Bundy DO Primary Care Provider +1- [phone] Encounter Details Date Type Department Care Team [...] 4:00 PM EDT [place] [address] Kira Thayer MD [facility] [place] [address] documented as of this encounter Visit Diagnoses Not on filedocumented in this encounter Care Teams Demo Coordinator Relationship Specialty Start Date End Date Belkys Bundy DO [address] [place] [address] PCP - General Family Medicine 03/21/19 documented as of this encounter
--- OUTSIDE RECORDS SUMMARY | 2024-04-21 18:50 | XMS_ITS | Encounter Summary ---
[place] [address] Care Team Providers Care Automatic Profile Sander Operator Name Role Phone Belkys Bundy DO Primary Care Provider +1- [phone] Reason for Visit * Reason Onset Date Comments Pre Procedure Call 08/23/2023 Encounter Details Date Type Department Care Team (Late st Contact Info) Description 08/23/2023 [place] [address] Emily Starr RN Pre Procedure Call Social [...] - 08/23/2023 1:17 PM EDT Copied from [facility] #[id number]. Topic: Specialty Dept CRMs - Generic Call >> August 18, 2023 2:30 PM Sera Santana wrote: Specialist: Kira Thayer MD Relationship (if other than patient-full name): Praveena Allred, Apprentice Technician from [facility] - Patients PCP's Office Reason for Call: Praveena Allred, Apprentice Technician from [facility], Patients Provider called today wanting to know if Patients Food Science Professor could give Patient clearance for a colonoscopy, which is required from [facility] in order for Patient to have a lung transplant. Praveena states that the lung transplant can not get schedule until Patient is cleared for a colonoscopy. documented in this encounter Plan of Treatment Upcoming Encounters Date Type Department Care Team (Late st Contact Info) Description 08/27/2024 4:00 PM EDT [place] [address] Kira Thayer MD [facility] [place] [address] documented as of this encounter Visit Diagnoses Not on filedocumented in this encounter Care Teams Automatic Profile Sander Operator Relationship Specialty Start Date End Date Belkys Bundy DO [address] [place] [address] PCP - General Family Medicine 03/21/19 documented as of this encounter
--- OUTSIDE RECORDS SUMMARY | 2024-04-21 18:50 | XMS_ITS | Encounter Summary ---
Author Organization [facility] [place] [address] Care Team Providers Care Document Restorer Name Role Phone Belkys Bundy Primary Care Provider +1- [phone] Encounter Details Date Type Department Care Team (Late st Contact Info) Description 03/23/2024 Telephone [place] [address] Emily Starr RN Social History Tobacco Use [...] 03/23/2024 2:10 PM EST Copied from CRM #[id number]. Topic: Specialty Dept CRMs - Generic Call [...] 4:00 PM EDT Office [place] [address] Kira Thayer MD [facility] [place] [address] documented as of this encounter Visit Diagnoses Not on filedocumented in this encounter Care Teams Document Restorer Relationship Specialty Start Date End Date Belkys Bundy DO [address] [place] [address] PCP - General Family Medicine 03/21/19 documented as of this encounter
--- OUTSIDE RECORDS SUMMARY | 2024-04-21 18:50 | XMS_ITS | Encounter Summary ---
Author Organization [facility] Address [facility] [place] [address] Care Team Providers Care Health Safety And Environment Manager Name Role Phone Belkys Bundy Primary Care Provider +1- [phone] Encounter Details Date Type Department Care Team (Late st Contact Info) Description 12/16/2023 [place] [address] Kira Thayer MD [facility] [place] [address] Social History Tobacco Use Types Packs/Day Years [...] 01/03/2024 12:07 PM EDT RN called to [facility], in efforts to inquire into overnight pulse [...] it was done last week, testing through [facility]. Will need the overnight oximetry report from [facility]. Kira Thayer MD * Telephone Encounter - Kira Thayer MD - 12/16/2023 4:24 PM EDT Called Jessie to follow up on my [facility] messages about pursuing additional testing to try [...] agreeable to the testing being done through [facility] who can get a device to her locally for this testing. She also understands insurance must accept her blood gas results ([facility] sent a copy of ABG from June2023 - 11.06/58/142.) She shares she believes [facility] is moving forward with listing her for transplant soon. Orders Placed This Encounter Procedures Common Pulmonary Function Test Overnight pulse ox to be performed on home 2L NC oxygen. Standing Status: Future Standing Expiration Date: 06/16/2024 Order Specific Question: Preferred location? Answer: External [125] Order Specific Question: Which External location will this be performed: Answer: Other Order Specific Question: Other Facility: Answer: [facility] Order Specific Question: Test to be performed Answer: Pulse Ox Overnight Kira Thayer MD documented in this encounter Plan of Treatment Upcoming Encounters Date Type Department Care Team (Late st Contact Info) Description 08/27/2024 4:00 PM EDT [place] [address] Kira Thayer MD [facility] [address] [place] [address] Scheduled Orders Name Type Priority Associated Diagnoses Orde r Schedule Common Pulmonary Function Test PFT Routine COPD, very severe Expected: 12/16/2023, Expires: 06/16/2024 documented as of this encounter Visit Diagnoses Diagnosis COPD, very severe Chronic airway obstruction, not elsewhere classified documented in this encounter Care Teams Health Safety And Environment Manager Relationship Specialty Start Date End Date Belkys Bundy DO [address] [place] [address] PCP - General Family Medicine 03/21/19 documented as of this encounter
--- OUTSIDE RECORDS SUMMARY | 2024-04-21 18:50 | XMS_ITS | Encounter Summary ---
[place] [address] Care Team Providers Care Brake Press Operator Name Role Phone Belkys Bundy Primary Care Provider +1- [phone] Reason for Visit * Reason Onset Date Comments Oxygen Dependence 07/27/2023 Overnight Puls e Oximetry Requisition Encounter Details Date Type Department Care Team (Late st Contact Info) Description 07/27/2023 Tele[place] [address] Emily Starr RN Oxygen Dependence (Overnight Pulse [...] Testing Requisition, signed by Dr. Thayer, to [facility]. Attached to this was the following items: Patient Demographics This covered the following items: Common Pulmonary Function Test Qty: 1 Preferred location? External [125] Which External location will this be performed: Other Other Facility: [facility] Test to be performed: Pulse Ox Overnight Overnight oxygen testing to be performed on home 2L NC O2 Fax submission confirmation time stamped for 07/27/2023 @ 3360. 4 pages with cover sheet. documented in this encounter Plan of Treatment Upcoming Encounters Date Type Department Care Team (Late st Contact Info) Description 08/27/2024 4:00 PM EDT Office [place] [address] Kira Thayer MD [facility] [place] [address] documented as of this encounter Visit Diagnoses Not on filedocumented in this encounter Care Teams Brake Press Operator Relationship Specialty Start Date End Date Belkys Bundy DO [address] [place] [address] PCP - General Family Medicine 03/21/19 documented as of this encounter
--- OUTSIDE RECORDS SUMMARY | 2024-04-21 18:50 | XMS_ITS | Encounter Summary ---
Author Organization [facility] [place] [address] Care Team Providers Care Limited Radiology Technician Name Role Phone Belkys Bundy Primary Care Provider +1- [phone] Encounter Details Date Type Department Care Team (Late st Contact Info) Description 03/22/2024 [place] [address] Tasha Obrien, RN Social History Tobacco Use [...] Encounter - Kira Thayer MD - 04/13/2024 4:54 PM EST Discussed ongoing FMLA needs with Suleiman; form updated and re-signed inclusive of inpatient stay datesand ongoing periodic visit needs from 03/22/2024 onward, and ready to be re-faxed. Kira Thayer MD * Telephone Encounter - Tasha Obrien RN - 03/22/2024 8:37 AM EST Copied from [facility] #[id number]. Topic: Specialty Dept CRMs - Form Request [...] letter need to say: Suleiman called regarding [place] paperwork previously completed by provider. Suleiman stated they did not previously have the dated needed for the paperwork from [place], but now know start date should be today 03/19/24 and end date 3 months from now. After completion please: Fax to: Suleiman's employer. Patient informed that completion of this request can take 5-7 business days. documented in this encounter Plan of Treatment Upcoming Encounters Date Type Department Care Team (Late st Contact Info) Description 08/27/2024 4:00 PM EDT [place] [address] Kira Thayer MD [facility] [place] [address] documented as of this encounter Visit Diagnoses Not on filedocumented in this encounter Care Teams Limited Radiology Technician Relationship Specialty Start Date End Date Belkys Bundy DO [address] [place] [address] PCP - General Family Medicine 03/21/19 documented as of this encounter
--- OUTSIDE RECORDS SUMMARY | 2024-04-21 18:50 | XMS_ITS | Encounter Summary ---
[place] [address] Care Team Providers Care Ammonia Solution Preparer Name Role Phone Belkys Bundy Virginie MYRICK Primary Care Provider +1- [phone] Reason for Referral * Consultation (Routine) - Authorized Specialty Diagnoses / Procedures Referred By Rossy levine Referred To Contact Gastroenterology Diagnoses Diarrhea, unspecified type Elevated alkaline phosphatase level Lung transplant candidate John Nieves MD [facility] [place] [address] [facility] [address] [place] [phone] Referral ID Status Reason Start Date Expiration Date Visits Requested Visits Authorized [id number] Authorized Consult, Test & Treat 09/01/2023 08/31/2024 [...] no documented anticoagulation use John Nieves MD [facility] [place] [address] [facility] End[address] [place] [phone] Referral ID Status Reason Start Date Expiration Date V isits Requested Visits Authorized [id number] Closed Test Only 09/01/2023 08/31/2024 1 1 Encounter Details Date Type Department Care Team (Late st Contact Info) Description 09/01/2023 Orders Only [place] [address] [facility] [place] [address] Lung transplant candidate (Primary Dx); Diarrhea, unspecified [...] 4:00 PM EDT Office [place] [address] [facility] [place] [address] Scheduled Referrals Name Type Priority Associated Diagnoses [...] levels documented in this encounter Care Teams Ammonia Solution Preparer Relationship Specialty Start Date End Date Belkys Bundy DO [address] [place] [address] PCP - General Family Medicine 03/21/19 documented as of this encounter
--- OUTSIDE RECORDS SUMMARY | 2024-04-21 18:50 | XMS_ITS | Encounter Summary ---
Author Organization [facility] [place] [address] Care Team Providers Care Shorthand Reporter Name Role Phone Belkys Bundy Primary Care Provider +1- [phone] Encounter Details Date Type Department Care Team (Late st Contact Info) Description 03/02/2024 [place] [address] Millicent Valles Social History Tobacco Use Types [...] 4:00 PM EDT [place] [address] Kira Thayer MD [facility] [place] [address] documented as of this encounter Visit Diagnoses Not on filedocumented in this encounter Care Teams Shorthand Reporter Relationship Specialty Start Date End Date Belkys Bundy DO [address] [place] [address] PCP - General Family Medicine 03/21/19 documented as of this encounter
--- OUTSIDE RECORDS SUMMARY | 2024-04-21 18:50 | XMS_ITS | Encounter Summary ---
Author Organization [facility] Address [facility] [place] [address] Care Team Providers Care Pleater Name Role Phone Belkys Bundy DO Primary Care Provider +1- [phone] Encounter Details Date Type Department Care Team [...] EDT Office [place] [address] Kira Thayer MD [facility] [place] [address] documented as of this encounter Visit Diagnoses Not on filedocumented in this encounter Care Teams Pleater Relationship Specialty Start Date End Date Belkys Bundy DO [address] [place] [address] PCP - General Family Medicine 03/21/19 documented as of this encounter
--- OUTSIDE RECORDS SUMMARY | 2024-04-21 18:50 | XMS_ITS | Encounter Summary ---
Author Organization [facility] Address [facility] [place] [address] Care Team Providers Care Document Management Technician Name Role Phone Belkys Bundy Primary Care Provider +1- [phone] Encounter Details Date Type Department Care Team (Late st Contact Info) Description 04/20/2024 10:00 AM EST Office [place] [address] Kira Thayer MD [facility] [place] [address] Lung transplant status, bilateral Social History Tobacco Use Types Packs/Day Years [...] Sign Reading Time Taken Comments Blood Pressure 120/86 04/20/2024 10:26 AM EST Pulse 100 04/20/2024 10:26 AM EST Temperature 36.7 ??C (98.1 ??F) 04/20/2024 10:[address] Respiratory Rate 18 04/20/2024 10:26 AM EST Oxygen Saturation 97% 04/20/2024 10:26 AM EST Inhaled Oxygen Concentration - - Weight 78.5 kg (173 lb) 04/20/2024 10:26 AM EST Height 165.1 cm (5' 5) 04/20/2024 10:26 AM EST Body Mass Index 28.79 04/20/2024 10:26 AM EST documented in this encounter Patient Instructions * Patient Instructions* Kira Thayer MD - 04/20/2024 10:00 AM EST Try Nasal Saline Ayre nose spray (a saltwater gel) to see if you can keep your nose hydrated and avoid further nose bleeds. Send us a photo of your medication list in [facility] if you can. documented in this encounter Plan of Treatment Upcoming Encounters Date Type Department Care Team (Late st Contact Info) Description 08/27/2024 4:00 PM EDT Office [place] [address] Kira Thayer MD [facility] [place] [address] documented as of this encounter Visit Diagnoses Diagnosis Lung transplant status, bilateral Lung replaced by transplant documented in this encounter Care Teams Document Management Technician Relationship Specialty Start Date End Date Belkys Bundy DO [address] [place] [address] PCP - General Family Medicine 03/21/19 documented as of this encounter
--- OUTSIDE RECORDS SUMMARY | 2024-04-21 18:50 | XMS_ITS | Encounter Summary ---
[place] [address] Care Team Providers Care Wire Stitcher Name Role Phone AnaBelkys moise Primary Care Provider +1- [phone] Reason for Visit * Reason Onset Date Comments Oxygen Dependence 12/19/2023 Overnight Puls e Oximetry Testing Requisition Encounter Details Date Type Department Care Team (Late st Contact Info) Description 12/19/2023 Telephone [place] [address] Emily Starr RN Oxygen Dependence (Overnight Pulse [...] Oximetry Requisition, signed by Dr. Thayer, to [facility]. Attached to this was the following items: Patient Demographics, This covered the following items: To be performed on home 2L [place] Oxygen Fax submission confirmation time stamped for @ 8697. 4 pages with cover sheet. documented in this encounter Plan of Treatment Upcoming Encounters Date Type Department Care Team (Late st Contact Info) Description 08/27/2024 4:00 PM EDT Office [place] [address] Kira Thayer MD [facility] [place] [address] documented as of this encounter Visit Diagnoses Not on filedocumented in this encounter Care Teams Wire Stitcher Relationship Specialty Start Date End Date Belkys Bundy DO [address] [place] [address] PCP - General Family Medicine 03/21/19 documented as of this encounter
--- OUTSIDE RECORDS SUMMARY | 2024-04-21 18:50 | XMS_ITS | Encounter Summary ---
Author Organization [facility]1983 Address [facility] [place] [address] Care Team Providers Care Survey Chief Name Role Phone Belkys Bundy Primary Care Provider +1- [phone] Reason for Visit * Reason Comments Medication Refill Trelegy Encounter Details Date Type Department Care Team (Late st Contact Info) Description 11/14/2023 [place] [address] Kira Thayer MD [facility] [place] [address] COPD, very severe Social History Tobacco Use [...] as stated in medication list. PHARMACY NAME: Reg[facility] Medei[facility] PHONE: [phone] Would patient like script sent directly to pharmacy? (Please put Yes or No) yes Would patient like paper script mailed to home address (Please put yes or No) no Caller/Patient aware of 1-2 business day process. documented in this encounter Plan of Treatment Upcoming Encounters Date Type Department Care Team (Late st Contact Info) Description 08/27/2024 4:00 PM EDT [place] [address] Kira Thayer MD [facility] [place] [address] documented as of this encounter Visit Diagnoses Diagnosis COPD, very severe Chronic airway obstruction, not elsewhere classified documented in this encounter Care Teams Survey Chief Relationship Specialty Start Date End Date Belkys Bundy DO [address] [place] [address] PCP - General Family Medicine 03/21/19 documented as of this encounter
--- OUTSIDE RECORDS SUMMARY | 2024-04-21 18:50 | XMS_ITS | Clinical Summary ---
Author Organization [facility] Address [facility] [place] [address] Care Team Providers Care Corporate Securities Research Analyst Name Role Phone Belkys Bundy DO Primary Care Provider +1- [phone] Allergies Active Allergy Reactions Criticality Noted Date [...] daily. Active fluticasone propionate (FLONASE) 50 mcg/actuation [place], Suspension 02/01/2020 Active atorvastatin (Lipitor) 20 mg [...] 06/03/2021 Active inhalational spacing device (Ricci Aerosol [place] Enhancer) Spacer .MEDSUPPLY 02/01/2020 Active levothyroxine (Synthroid) [...] 03/08/2023 Active Trelegy Ellipta 200-62.5-25 mcg inhaler (DPI)Indications:LICENSED MARRIAGE AND FAMILY THERAPIST D, very severe INHALE 1 PUFF BY MOUTH ONCE DAILY 3 each 3 11/16/2023 Active Active Problems Problem Noted Date Diagnosed Date Chronic obstructive pulmonary disease 05/02/2020 Supplemental oxygen dependent 05/02/2020 Tobacco use 05/02/2020 Pruritus 08/27/2011 Encounters Date Type Department Care Team Description 04/20/2024 10:00 AM EST Office [place] [address] Kira Thayer MD Lung transplant status, bilateral 04/20/2024 Telephone [place] [address] Emily Starr, RN Disability Paperwork 04/20/2024 Travel 04/16/2024 Telephone Pulmonology at [place] [phone] Emily Starr RN Disability Paperwork (Updated forms) 04/13/2024 Telephone [place] [address] Emily Starr, RN 03/23/2024 Telephone Pulmonology at [place] [phone] Emily Starr, RN 03/22/2024 Telephone Pulmonology at [place] [phone] Tasha Obrien RN 03/06/2024 Telephone [place] [address] Emily Starr RN 03/02/2024 Telephone [place] [address] Emily Starr RN Disability Paperwork 03/02/2024 Telephone [place] [address] Millicnet Valles 03/01/2024 Telephone [place] [address] Yesenia Nino, RN 02/27/2024 4:30 PM EST Office [place] [address] Kira Thayer MD COPD, very severe; Supplemental oxygen dependent; Cigarette nicotine dependence in remission; Hypercarbia 02/27/2024 Travel 02/08/2024 Telephone [place] [address] Emily Starr RN Infection (Covid-19) from Last 3 Months Immunizations Name Administration Dates Next Due Covid-19 Monovalent (Moderna Spikevax) 12yrs+ ([id number]) 09/15/2021 Covid-19, Unknown Formulation 01/13/2023 ,02/12/2021,08/03/2020,2020 Hepatitis [...] Mass Index 28.79 04/20/2024 10:26 AM EST Plan of Treatment Upcoming Encounters Date Type Department Care Team (Late st Contact Info) Description 08/27/2024 4:00 PM EDT Office [place] [address] Kira Thayer MD [facility] [place] [address] Health Maintenance Due Date Last Done Comments [...] k 5-64yrs Completed 06/09/2023, 02/11/2012 Care Teams Corporate Securities Research Analyst Relationship Specialty Start Date End Date Belkys Bundy DO [address] [place], [place] [id number] PCP - General Family Medicine 03/21/19
--- OUTSIDE RECORDS SUMMARY | 2024-04-21 18:50 | XMS_ITS | Encounter Summary ---
[place] [address] Care Team Providers Care Supervisory Training Specialist Name Role Phone Belkys Bundy DO Primary Care Provider +1- [phone] Reason for Referral * Rehabilitation (Routine) - Authorized Specialty Diagnoses / Procedures Referred By Contact Referred To Contact Pulmonary Rehabilitation / Rehabilitation Diagnoses COPD, very severe Kira Thayer MD [facility] [place] [address] Referral ID Status Reason Start Date Expiration Date Visits Requested Visits Authorized [id number] Authorized Evaluate and Treat 02/27/2024 08/25/2024 36 36 Reason for Visit * Consultation (Routine) - Closed Specialty Diagnoses / Procedures Referred By Rossy levine Referred To Contact Pulmonology Diagnoses Solitary pulmonary nodule End stage COPD Dyspnea Emphysema, unspecified Other abnormalities of breathing Awaiting organ transplant status GEN PULM Patient of Kira Thayer Pulm clearance for transplant Belkys Bundy DO [address] [place] [address] [facility] Pulmonology [address] [place] [phone] Referral ID Status Reason Start Date Expiration Date Visits Re quested Visits Authorized [id number] Closed 07/22/2023 07/21/2024 1 1 Encounter Details Date Type Department Care Team (Late st Contact Info) Description 02/27/2024 4:30 PM EST Office [place] [address] Kira Thayer MD [facility] [place] [address] COPD, very severe; Supplemental oxygen dependent; Cigarette [...] from the original note were not included. [facility] Section of Pulmonary and Critical Care [...] with anything specific. She got called to [place] for transplantation in December, however the explanted [...] needs them inhalational spacing device (Ricci Aerosol [place] Enhancer) Spacer .MEDSUPPLY levothyroxine (Synthroid) 100 mcg [...] tablet 11 fluticasone propionate (FLONASE) 50 mcg/actuation [place], Suspension atorvastatin (Lipitor) 20 mg Tablet cyclobenzaprine [...] S or Z allele) CT [place] [place] notes (images not available): IMPRESSION: Compared [...] is currently listed for lung [place] [facility] She is ready to retry pulm rehab (wasn't able to do so due to scheduling after her last visit, but interested now.) New referral placed to [facility] pulm rehab. She is on supplemental O2; [...] Recommendations: - can call pulm rehab at [facility] to start, new referral also placed - [...] 02/29/2024, currently [place] in [place] [facility]. Given this, we will not send the bipap orders out as her new pulmonary status is likely to be much better and if all goes well she will not need bipap at home. [place] paperwork for her completed. MD Omari Hogue [facility] PULMONOLOGY AT [facility] [address] Dept: [phone] Loc: [phone] documented in this encounter Plan of Treatment Upcoming Encounters Date Type Department Care Team (Late st Contact Info) Description 08/27/2024 4:00 PM EDT Office [place] [address] Kira Thayer MD [facility] [place] [address] Scheduled Referrals Name Type Priority Associated Diagnoses [...] abnormality documented in this encounter Care Teams Supervisory Training Specialist Relationship Specialty Start Date End Date Belkys Bundy DO [address] [place] [address] PCP - General Family Medicine 03/21/19 documented as of this encounter
--- OUTSIDE RECORDS SUMMARY | 2024-04-21 18:50 | XMS_ITS | Encounter Summary ---
Author Organization [facility] [place] [address] Care Team Providers Care Payroll And Benefits Assistant Name Role Phone Belkys Bundy Primary Care Provider +1- [phone] Encounter Details Date Type Department Care Team (Late st Contact Info) Description 07/25/2023 Telephone [place] [address] Cristin Block Social History Tobacco Use Types [...] 4:00 PM EDT Office [place] [address] Kira Thayer MD [facility] [place] [address] documented as of this encounter Visit Diagnoses Not on filedocumented in this encounter Care Teams Payroll And Benefits Assistant Relationship Specialty Start Date End Date Belkys Bundy DO [address] [place] [address] PCP - General Family Medicine 03/21/19 documented as of this encounter
--- OUTSIDE RECORDS SUMMARY | 2024-04-21 18:50 | XMS_ITS | Encounter Summary ---
[place] [address] Care Team Providers Care Ui Programmer Name Role Phone Belkys Bundy DO Primary Care Provider +1- [phone] Reason for Visit * Reason Onset Date Comments Disability Paperwork 04/16/2024 Updated for ms Encounter Details Date Type Department Care Team (Late st Contact Info) Description 04/16/2024 [place] [address] Emily Starr RN Disability Paperwork (Updated forms) Social History Tobacco Use Types Packs/Day Years [...] Telephone Encounter - Emily Starr RN - 04/16/2024 11:42 AM EST RN called and updated Jones. Confirmed address. Mailed original copies of paperwork to address on file. * Telephone Encounter - Emily Starr RN - 04/16/2024 11:36 AM EST Faxed completed Updated [facility] paperwork, signed by Dr. Thayer, to [employer]. This covered the following items: Update with dates. Fax submission confirmation time stamped for 04/16/2023 @ 5946. 6 pages with cover sheet. Copy of updated forms sent to scanning for inclusion to patient records. documented in this encounter Plan of Treatment Upcoming Encounters Date Type Department Care Team (Late st Contact Info) Description 08/27/2024 4:00 PM EDT [place] [address] Kira Thayer MD [facility] [place] [address] documented as of this encounter Visit Diagnoses Not on filedocumented in this encounter Care Teams Ui Programmer Relationship Specialty Start Date End Date Belkys Bundy DO [address] [place] [address] PCP - General Family Medicine 03/21/19 documented as of this encounter
--- OUTSIDE RECORDS SUMMARY | 2024-04-21 18:50 | XMS_ITS | Encounter Summary ---
Author Organization [facility] [place] [address] Care Team Providers Care Wire Drawing Setter Name Role Phone Belkys Bundy DO Primary Care Provider +1- [phone] Reason for Visit * Reason Onset Date Comments Disability Paperwork 03/02/2024 Encounter Details Date Type Department Care Team (Late st Contact Info) Description 03/02/2024 [place] [address] Emily Starr RN Disability Paperwork Social History [...] [place] paperwork, signed by Dr. Thayer, to [employer]. This covered the following items: Estimated end date 04/30/2024. Fax submission confirmation time stamped for 03/06/2024 @ 0908. 5 pages with cover sheet. Copy of [facility] paperwork sent to scanning for inclusion to patient records. Mailed to patient's address on file, previously confirmed. RN attempted to call [employer] to update, but rec'd automated notification that his phone line had been disconnected. * Telephone Encounter - Emily Starr RN - 03/02/2024 1:48 PM EST Copied from CRM #[id number]. Topic: Specialty Dept CRMs - Generic Call >> Mar 02, 2024 8:39 AM Bryon Khanna wrote: Specialist: Kira Thayer MD Relationship (if other than patient-full name): Jones Avila, patient's Reason for Call: Suleiman stated his employer contacted him and the [facility] paperwork needs an end date, it can say something like 2 months. Suleiman stated this may need to be revisited later. Suleiman stated to please update the form and fax to his employer. Suleiman stated he can be reached at [phone] to discuss. documented in this encounter Plan of Treatment Upcoming Encounters Date Type Department Care Team (Late st Contact Info) Description 08/27/2024 4:00 PM EDT [place] [address] Kira Thayer MD [facility] [place] [address] documented as of this encounter Visit Diagnoses Not on filedocumented in this encounter Care Teams Wire Drawing Setter Relationship Specialty Start Date End Date Belkys Bundy DO [address] [place] [address] PCP - General Family Medicine 03/21/19 documented as of this encounter
--- OUTSIDE RECORDS SUMMARY | 2024-04-21 18:50 | XMS_ITS | Encounter Summary ---
Author Organization [facility] [place] [address] Care Team Providers Care Barometers Calibrator Name Role Phone Belkys Bundy DO Primary Care Provider +1- [phone] Encounter Details Date Type Department Care Team (Late st Contact Info) Description 03/06/2024 [place] [address] Emily Starr RN Social History Tobacco Use [...] 03/06/2024 1:31 PM EST Copied from CRM #[id number]. Topic: Specialty Dept CRMs - Generic Call [...] 4:00 PM EDT Office [place] [address] Kira Thayer MD [facility] [place] [address] documented as of this encounter Visit Diagnoses Not on filedocumented in this encounter Care Teams Barometers Calibrator Relationship Specialty Start Date End Date Belkys Bundy DO [address] [place] [address] PCP - General Family Medicine 03/21/19 documented as of this encounter
--- OUTSIDE RECORDS SUMMARY | 2024-04-21 18:50 | XMS_ITS | Encounter Summary ---
Author Organization [facility] Address [facility] [place] [address] Care Team Providers Care Tariff Supervisor Name Role Phone Belkys Bundy DO Primary Care Provider +1- [phone] Encounter Details Date Type Department Care Team (Latest Contact Info) Description 04/20/2024 Travel Social History Tobacco Use Types Packs/Day [...] 4:00 PM EDT Office [place] [address] Kira Thayer MD [facility] [place] [address] documented as of this encounter Visit Diagnoses Not on filedocumented in this encounter Care Teams Tariff Supervisor Relationship Specialty Start Date End Date Belkys Bundy DO [address] [place] [address] PCP - General Family Medicine 03/21/19 documented as of this encounter
--- OUTSIDE RECORDS SUMMARY | 2024-04-21 18:50 | XMS_ITS | Encounter Summary ---
Author Organization [facility] Address [facility] [place] [address] Care Team Providers Care Dermatology Procedural Physician Name Role Phone Belkys Bundy DO Primary Care Provider +1- [phone] Encounter Details Date Type Department Care Team (Late st Contact Info) Description 07/26/2023 Notes [place] [address] Kira Thayer MD [facility] [place] [address] Social History Tobacco Use Types Packs/Day Years [...] 4:00 PM EDT [place] [address] Kira Thayer MD [facility] [place] [address] documented as of this encounter Visit Diagnoses Not on filedocumented in this encounter Care Teams Dermatology Procedural Physician Relationship Specialty Start Date End Date Belkys Bundy DO [address] [place] [address] PCP - General Family Medicine 03/21/19 documented as of this encounter
--- OUTSIDE RECORDS SUMMARY | 2024-04-21 18:50 | XMS_ITS | Encounter Summary ---
[place] [address] Care Team Providers Care Special Agent Name Role Phone Belkys Bundy Primary Care Provider +1- [phone] Reason for Visit * Reason Onset Date Comments Other 11/02/2023 DME - BiPAP Encounter Details Date Type Department Care Team (Late st Contact Info) Description 11/02/2023 [place] [phone] Emily Starr RN Other (DME - BiPAP) [...] oximetry testing requisition be sent out to [facility]. She would like to instead request Dr. Thayer to put in an order for a sleep study through [facility]. Her rationale is that she would not be able to return the equipment in a timelymanner, and that she feels that the sleep study would give better data. * Telephone Encounter - Emily Starr RN - 11/04/2023 12:17 PM EDT RN called back to preferred home number, but was met with voicemail. LMOM, will attempt to call back, requested return call to [phone] * Telephone Encounter - Emily Starr RN - 11/04/2023 10:23 AM EDT Images from the original note were not included. RN called back to Jessie to discuss response from Dr. Thayer as follows: November 03, 2023 Kira Thayer MD to [place] 11/03/23 8:54 AM For bipap work-up, patient [...] placed in June, but it looks like [facility] bounced it back as they no longer [...] LMOM updating that records hadbeen received from [facility], and notification would be sent to Dr. Thayer. * Telephone Encounter - Emily Starr RN - 11/02/2023 3:43 PM EDT Copied from [facility] #[id number]. Topic: Specialty Dept CRMs - Generic Call >> Nov 01, 2023 2:50 PM Dennis Rachel wrote: Specialist: Kira Thayer MD Relationship (if other than patient-full name): Jessie Sanchez Reason for Call: Patient called to get a message to [place]. She stated, [facility] wants her to get a BiPap, all the notes from [facility] should be there. documented in this encounter Plan of Treatment Upcoming Encounters Date Type Department Care Team (Late st Contact Info) Description 08/27/2024 4:00 PM EDT Office [place] [address] Kira Thayer MD [facility] [place] [address] documented as of this encounter Visit Diagnoses Not on filedocumented in this encounter Care Teams Special Agent Relationship Specialty Start Date End Date Belkys Bundy DO [address] [place] [address] PCP - General Family Medicine 03/21/19 documented as of this encounter
--- OUTSIDE RECORDS SUMMARY | 2024-04-21 18:51 | XMS_ITS | Encounter Summary ---
Author Organization [facility] [place] [address] Care Team Providers Care System Trainer Name Role Phone Belkys Bundy DO Primary Care Provider +1- [phone] Encounter Details Date Type Department Care Team [...] 4:00 PM EDT [place] [address] Kira Thayer MD [facility] [place] [address] documented as of this encounter Visit Diagnoses Not on filedocumented in this encounter Care Teams System Trainer Relationship Specialty Start Date End Date Belkys Bundy DO [address] [place], [place] [address] PCP - General Family Medicine 03/21/19 documented as of this encounter
--- OUTSIDE RECORDS SUMMARY | 2024-04-21 18:51 | XMS_ITS | Encounter Summary ---
Author Organization [facility] [place] [address] Care Team Providers Care Liquefaction And Regasification Helper Name Role Phone Belkys Bundy Primary Care Provider +1- [phone] Reason for Visit * Reason Onset Date Comments Request For Record 01/14/2022 Encounter Details Date Type Department Care Team (Late st Contact Info) Description 01/14/2022 Telephone [place] [address] Emily Starr RN Request For Record Social [...] submission confirmation time stamped for 01/14/2022 @ 1234, 20 pages with cover sheet. documented in this encounter Plan of Treatment Upcoming Encounters Date Type Department Care Team (Late st Contact Info) Description 08/27/2024 4:00 PM EDT Office [place] [address] Kira Thayer MD [facility] [place] [address] documented as of this encounter Visit Diagnoses Not on filedocumented in this encounter Care Teams Liquefaction And Regasification Helper Relationship Specialty Start Date End Date Belkys Bundy DO [address] [place] [address] PCP - General Family Medicine 03/21/19 documented as of this encounter
--- OUTSIDE RECORDS SUMMARY | 2024-04-21 18:51 | XMS_ITS | Encounter Summary ---
Author Organization [facility] [place] [address] Care Team Providers Care Radio Repair Teacher Name Role Phone Belkys Bundy Primary Care Provider +1- [phone] Encounter Details Date Type Department Care Team (Late st Contact Info) Description 03/31/2022 11:00 AM EST Office Visit [place] [address] Kira Thayer MD [facility] [place] [address] COPD, very severe; Supplemental oxygen dependent; Tobacco [...] from the original note were not included. [facility] Section of Pulmonary and Critical [...] Refill ??? inhalational spacing device (Ricci Aerosol [place] Enhancer) Spacer .MEDSUPPLY ??? levothyroxine (Synthroid) 100 mcg Tablet Take 100 mcg by mouth nightly. ??? linaCLOtide (Linzess) 72 mcg Capsule Take 72 mcg by mouth every morning. Take 30 minutes beforemeal ??? potassium chloride (KLOR-CON) 20 mEq Packet Take 20 mEq by mouth 2 times daily. ??? lqxjgzgscib-xcugbdqht-jboqprnr (Trelegy Ellipta) 200-62.5-25 mcg Disk with Device [...] 11 ??? fluticasone propionate (FLONASE) 50 mcg/actuation [place], Suspension ??? nicotine (NICODERM CQ) 21 mg/24 [...] involve a referral to a center in [place]. Summary Recommendations: - continue trelegy inhaler 200 [...] further questions or concerns. Kira Thayer MD [facility] PULMONOLOGY AT [facility] [address] Dept: [phone] Loc: [phone] documented in this encounter Plan of Treatment Upcoming Encounters Date Type Department Care Team (Late st Contact Info) Description 08/27/2024 4:00 PM EDT Office Visit Pulmonology at [place] [place] [address] Kira Thayer MD [facility] [place] [address] documented as of this encounter Results * [...] / FVC LLN 69 % COMPAS PFT DTO94-42 Actual Pre-BD 0.19 L/s COMPAS PFT KFC40-00 Pre-BD % of Predicted 7 % COMPAS PFT CJK80-57 Predicted 2.71 L/s COMPAS PFT PSC80-74 Pre-BD Z-Score -4.66 COMPAS PFT DLCO Hb [...] classified documented in this encounter Care Teams Radio Repair Teacher Relationship Specialty Start Date End Date Belkys Bundy DO [address] [place] [address] PCP - General Family Medicine 03/21/19 documented as of this encounter
--- OUTSIDE RECORDS SUMMARY | 2024-04-21 18:51 | XMS_ITS | Encounter Summary ---
Author Organization [facility] [place] [address] Care Team Providers Care Veneer Gluer Name Role Phone Belkys Bundy DO Primary Care Provider +1- [phone] Encounter Details Date Type Department Care Team (Late st Contact Info) Description 07/15/2022 Ancillary Procedure Radiology Library at [facility] [place] [phone] Kira Thayer MD [facility] [address] Social History Tobacco Use Types Packs/Day Years [...] 4:00 PM EDT Office Visit Pulmonology at [facility] [place] [address] Kira Thayer MD [facility] [address] documented as of this encounter Procedures Procedure Name Priority Date/Time Associated Diagnosis Comments FILM LIBRARY STORAGE ONLY CT CHEST Routine 07/15/2022 12:00 AM EDT documented in this encounter Results * Film Library- Storage Only CT Chest (07/15/2022 12:00 AM EDT) Narrative RAD - 08/05/2022 7:48 PM EDT This exam is auto-finalizing. It's purpose is for storage only. Kira Thayer MD IMG FILM LIBRARY ORD ERABLES Performing Organization Address City/State/[facility] Co de Phone Number [place], [place] documented in this encounter Visit Diagnoses Not on filedocumented in this encounter Care Teams Veneer Gluer Relationship Specialty Start Date End Date Belkys Bundy DO [address] [place] [address] PCP - General Family Medicine 03/21/19 documented as of this encounter
--- OUTSIDE RECORDS SUMMARY | 2024-04-21 18:51 | XMS_ITS | Encounter Summary ---
Author Organization [facility] [place] [address] Care Team Providers Care Ethnology Teacher Name Role Phone Belkys Bundy DO Primary Care Provider +1- [phone] Encounter Details Date Type Department Care Team (Late st Contact Info) Description 08/05/2022 [place] [address] Millicent Valles Social History Tobacco Use Types [...] 4:00 PM EDT [place] [address] Kira Thayer MD [facility] [place] [address] documented as of this encounter Visit Diagnoses Not on filedocumented in this encounter Care Teams Ethnology Teacher Relationship Specialty Start Date End Date Belkys Bundy DO [address] [place] [address] PCP - General Family Medicine 03/21/19 documented as of this encounter
--- OUTSIDE RECORDS SUMMARY | 2024-04-21 18:51 | XMS_ITS | Encounter Summary ---
[place] [address] Care Team Providers Care Prototype Sewer Name Role Phone Belkys Bundy Virginie MYRICK Primary Care Provider +1- [phone] Reason for Referral * Diagnostic Test (Routine) - Closed Specialty Diagnoses / Procedures Referred By Contac t Referred To Contact Radiology Diagnoses Bacterial pneumonia Procedures CT Chest wo Contrast (Generic) Kira Thayer MD [facility] [place] [address] [facility] [address] Referral ID Status Reason Start Date Expiration Date V isits Requested Visits Authorized [id number] Closed Specialty Service Requested 10/18/2022 04/20/2024 1 1 Reason for Visit * Diagnostic Test (Routine) - Closed Specialty Diagnoses / Procedures Referred By Contac t Referred To Contact Radiology Diagnoses Bacterial pneumonia Procedures CT Chest wo Contrast (Generic) Kira Thayer MD [facility] [place] [address] [facility] [address] Referral ID Status Reason Start Date Expiration Date V isits Requested Visits Authorized [id number] Closed Specialty Service Requested 10/18/2022 04/20/2024 1 1 Encounter Details Date Type Department Care Team (Latest Contact Info) Description 10/25/2022 7:48 AM EDT - 10/25/2022 11:59 PM EDT Hospital Encounter CT Scan at [facility] [place] [address] Kira Thayer MD [facility] [place] [address] Bacterial pneumonia Discharge Disposition: Home Social History [...] End Date inhalational spacing device (Ricci Aerosol [place] Enhancer) Spacer .MEDSUPPLY 02/01/2020 levothyroxine (Synthroid) 100 [...] 11 07/16/2020 fluticasone propionate (FLONASE) 50 mcg/actuation [place], Suspension 02/01/2020 atorvastatin (Lipitor) 20 mg Tablet [...] mg tablet 04/12/2013 predniSONE (Deltasone) 20 mg tabletIndications:TODDLER GUIDE D, very severe Take 1 tablet by [...] EVERY DAY NEEDED FOR COPD EXACERBATION; ALERT HAWK MISSILE AIR DEFENSE ARTILLERY AND PCP 09/01/2022 06/20/2023 potassium chloride (KLOR-CON) [...] 4:00 PM EDT Office [place] [address] Kira Thayer MD [facility] DR [place] [address] documented as of this encounter Procedures Procedure [...] who have questions please contact the health date night caregiver that requested your imaging first. ? Electronically signed by: Raheem Morin MD, [facility] ??([phone]), at 10/25/2022 10:54 AM Narrative 10/25/2022 10:54 [...] (GENERIC) CLINICAL HISTORY: Pneumonia, unresolved pneumonia July, / scan in ptwith tobacco use ongoing, continued [...] patients who have questions please contactthe health date night caregiver that requested your imaging first. Electronically signed by: Raheem Morin MD, [facility]([phone]), at 10/25/2022 10:54 AM Kira Thayer MD IMG CT ORDERABLES documented in this encounter Visit Diagnoses Diagnosis Bacterial pneumonia Bacterial pneumonia, unspecified documented in this encounter Care Teams Prototype Sewer Relationship Specialty Start Date End Date Belkys Bundy DO [address] [place] [address] PCP - General Family Medicine 03/21/19 documented as of this encounter
--- OUTSIDE RECORDS SUMMARY | 2024-04-21 18:51 | XMS_ITS | Encounter Summary ---
Author Organization [facility] [place] [address] Care Team Providers Care Light Adjuster Name Role Phone Belkys Bundy DO Primary Care Provider +1- [phone] Encounter Details Date Type Department Care Team (Late st Contact Info) Description 08/04/2022 Telephone [place] [address] Millicent Valles Social History Tobacco Use Types [...] 4:00 PM EDT Office [place] [address] Kira Thayer MD [facility] [place] [address] documented as of this encounter Visit Diagnoses Not on filedocumented in this encounter Care Teams Light Adjuster Relationship Specialty Start Date End Date Belkys Bnudy DO [address] [place] [address] PCP - General Family Medicine 03/21/19 documented as of this encounter
--- OUTSIDE RECORDS SUMMARY | 2024-04-21 18:51 | XMS_ITS | Encounter Summary ---
[place] [address] Care Team Providers Care Farm Planner Name Role Phone Belkys Bundy Primary Care Provider +1- [phone] Reason for Visit * Reason Onset Date Comments Labs Only 09/13/2022 Oxygen Dependence 09/13/2022 Encounter Details Date Type Department Care Team (Late st Contact Info) Description 09/13/2022 [place] [address] Emily Starr RN Labs Only; Oxygen Dependence [...] EDT RN called to Katey Johnson at [facility], and was able to speak to her directly. RN relayed patient concerns of faulty equipment. Katey confirmed patient was serviced by [facility], and would connect with their support team to rectify problems with machine with patient. * Telephone Encounter - Emily Starr RN - 09/13/2022 12:50 PM EDT Faxed completed Lab Order Requisition, signed by Dr. Thayer, to [facility]. Attached to this was the following items: Patient Demographics This covered the following items: Lower Respiratory Culture AFB Culture Fax submission confirmation time stamped for 09/13/2022 @ 1248. 5 pages with cover sheet. documented in this encounter Plan of Treatment Upcoming Encounters Date Type Department Care Team (Late st Contact Info) Description 08/27/2024 4:00 PM EDT Office [place] [address] Kira Thayer MD [facility] [place] [address] documented as of this encounter Visit Diagnoses Not on filedocumented in this encounter Care Teams Farm Planner Relationship Specialty Start Date End Date Belkys Bundy DO [address] [place] [address] PCP - General Family Medicine 03/21/19 documented as of this encounter
--- OUTSIDE RECORDS SUMMARY | 2024-04-21 18:51 | XMS_ITS | Encounter Summary ---
Author Organization [facility] [place] [address] Care Team Providers Care Shuttle Buggy Operator Name Role Phone Belkys Bundy DO Primary Care Provider +1- [phone] Encounter Details Date Type Department Care Team [...] 4:00 PM EDT Office [place] [address] [address]ira Thayer MD [facility] [place] [address] documented as of this encounter Visit Diagnoses Not on filedocumented in this encounter Care Teams Shuttle Buggy Operator Relationship Specialty Start Date End Date Belkys Bundy DO [address] [place], [place] [address] PCP - General Family Medicine 03/21/19 documented as of this encounter
--- OUTSIDE RECORDS SUMMARY | 2024-04-21 18:51 | XMS_ITS | Encounter Summary ---
Author Organization [facility] [place] [address] Care Team Providers Care Agronomy Research Manager Name Role Phone Belkys Bundy Primary Care Provider +1- [phone] Encounter Details Date Type Department Care Team (Late st Contact Info) Description 11/22/2022 Telephone [place] [address] Juanis Osullivan RT Social History Tobacco Use [...] PM EDT Office [place] [address] Kira Thayer MD [facility] [place] [address] documented as of this encounter Visit Diagnoses Not on filedocumented in this encounter Care Teams Agronomy Research Manager Relationship Specialty Start Date End Date Belkys Bundy DO [facility] [place] [address] PCP - General Family Medicine 03/21/19 documented as of this encounter
--- OUTSIDE RECORDS SUMMARY | 2024-04-21 18:51 | XMS_ITS | Encounter Summary ---
Author Organization [facility] [place] [address] Care Team Providers Care Sponge Maker Name Role Phone Belkys Bundy Primary Care Provider +1- [phone] Encounter Details Date Type Department Care Team (Late st Contact Info) Description 09/09/2021 8:30 AM EDT [place] [address] Juanis Osullivan, RT COPD, very severe Social [...] 4:00 PM EDT [place] [address] Kira Thayer MD [facility] [address] [place] [address] documented as of this encounter Visit Diagnoses Diagnosis COPD, very severe Chronic airway obstruction, not elsewhere classified documented in this encounter Care Teams Sponge Maker Relationship Specialty Start Date End Date Belkys Bundy DO [address] [place] [address] PCP - General Family Medicine 03/21/19 documented as of this encounter
--- OUTSIDE RECORDS SUMMARY | 2024-04-21 18:51 | XMS_ITS | Encounter Summary ---
Author Organization [facility] [place] [address] Care Team Providers Care Inside Wireman Name Role Phone Belkys Bundy Primary Care Provider +1- [phone] Reason for Referral * Consultation (Routine) - Closed Specialty Diagnoses / Procedures Referred By Rossy t Referred To Contact Diagnoses COPD, very severe Kira Thayer MD [facility] PULMONARY MEDICINE [place] [id number] Referral ID Status Reason Start Date Expiration Date V isits Requested Visits Authorized [id number] Closed Consult, Test & Treat 11/25/2022 05/24/2023 1 1 Encounter Details Date Type Department Care Team (Late st Contact Info) Description 11/22/2022 9:00 AM EDT Office [place] [address] Kira Thayer MD [facility] [place] [address] COPD, very severe; Tobacco use; Supplemental oxygen [...] documented in this encounter Progress Notes * Kria Thayer MD - 11/22/2022 9:00 AM EDT Images from the original note were not included. [facility] Section of Pulmonary and Critical Care [...] on the skin daily. 28 patch 5 cvjwgwdvamu-bqlmxeymuacp-uakkllympa (Trelegy Ellipta) 200-62.5-25 mcg Inhale 1 puff into the lungs daily. 28 each 11 predniSONE (Deltasone) 20 mg tablet TAKE TWO TABLETS BY MOUTH EVERY DAY NEEDED FOR COPD EXACERBATION; ALERT STONEWORKER AND PCP inhalational spacing device (Ricci Aerosol [place] Enhancer) Spacer .MEDSUPPLY levothyroxine (Synthroid) 100 mcg [...] tablet 11 fluticasone propionate (FLONASE) 50 mcg/actuation [place], Suspension atorvastatin (Lipitor) 20 mg Tablet cyclobenzaprine [...] indicated for stable small pulm nodules seen [phone]. She has been smoking up to 1 [...] involve a referral to a center in [place], and that she needs to quit smoking before transplant would be an option. She is agreeable to a referral now. Referral letter written and referral order placed, to be faxed to [place] transplant center ([facility] vs [facility] pending insurance information.) Summary Recommendations: - continue [...] on day of visit. MD Omari Hogue [facility] PULMONOLOGY AT [facility] [address] Dept: [phone] Loc: [phone] documented in this encounter Plan of Treatment Upcoming Encounters Date Type Department Care Team (Late st Contact Info) Description 08/27/2024 4:00 PM EDT Office Visit Pulmonology [place] [address] Kira Thayer MD [facility] [place] [address] Scheduled Referrals Name Type Priority Associated Diagnoses Order Schedule Referral to Pulmonology Outpatient Referral Routine COPD, very severe Ordered: 11/25/2022 documented as of this encounter Procedures Procedure Name Priority Date/Time Associated Diagnosis Comments BLOOD GAS ARTERIAL ([facility]) Routine 11/22/2022 10:16 AM EDT documented in this encounter Results * (ABNORMAL) Blood Gas Arterial ([facility]) (11/22/2022 10:16 AM EDT) pH, Arterial 7.39 7.35 - 7.45 [facility] PCO2, Arterial 47(H) 35 - 45 mmHg [facility] PO2, Arterial 73(L) 85 - 104 mmHg [facility] Bicarbonate, Arterial 27.7(H) 20.0 - 26.0 mmol/L [facility] Base Excess, Arterial 2.7 -3.0 - 3.0 mmol/L [facility] Hgb Blood Gas 15.2 11.7 - 15.5 g/dL [facility] Oxyhemoglobin, Arterial 92.1(L) 94.0 - 97.0 % [facility] Carboxyhemoglob in, Arterial 2.9 % [facility] Comment: Nonsmokers: ??0.5-1.5% COHB Smokers: ??Variable, but usually less than 10% Toxic: 20 - 30% COHB Lethal: ??Greater than 60% COHB Methemoglobin, Arterial 0.3 <=1.5 % [facility] Na Whole Blood 140 135 - 145 mmol/L [facility] K Whole Blood 3.9 3.5 - 5.0 mmol/L [facility] Comment: Please note: ??Patients with WBC >100,000 may have falsely elevated Potassium levels. ??Contact the Clinical Chemistry Laboratory if there are any questions. ICa Whole Blood 1.18 1.15 - 1.33 mmol/L [facility] Comment: Note: ??Total bilirubin higher than 20 mg/dL may lead to falsely low ionized calcium. CL Whole Blood 103 98 - 107 mmol/L [facility] Gluc Whole Bld 79 65 - 199 mg/dL [facility] Comment:Diabetes: >=200 mg/d L plus symptoms. Lactate WB 0.9 0.5 - 2.2 mmol/L [facility] Blood Arterial Draw / Unknown 11/22/2022 10:16 AM EDT 11/22/2022 10:24 AM EDT Narrative Resulting Agency Comment Spec In Lab Kira Thayer MD CHEMISTRY ORDERABLES [facility] [place] [address] documented in this encounter Visit Diagnoses Diagnosis COPD, very severe Chronic airway obstruction, not elsewhere classified Tobacco use Tobacco use disorder Supplemental oxygen dependent Dependence on supplemental oxygen Hypercarbia Other dyspnea and respiratory abnormality documented in this encounter Care Teams Inside Wireman Relationship Specialty Start Date End Date Belkys Bundy DO [address] [place] [address] PCP - General Family Medicine 03/21/19 documented as of this encounter
--- OUTSIDE RECORDS SUMMARY | 2024-04-21 18:51 | XMS_ITS | Encounter Summary ---
Author Organization [facility] [place] [address] Care Team Providers Care It Applications Developer Name Role Phone Belkys Bundy DO Primary Care Provider +1- [phone] Encounter Details Date Type Department Care Team [...] 4:00 PM EDT Office [place] [address] Kira Thayer MD [facility] [place] [address] documented as of this encounter Visit Diagnoses Not on filedocumented in this encounter Care Teams It Applications Developer Relationship Specialty Start Date End Date Belkys Bundy DO [address] [place], [place] [id number] PCP - General Family Medicine 03/21/19 documented as of this encounter
--- OUTSIDE RECORDS SUMMARY | 2024-04-21 18:51 | XMS_ITS | Encounter Summary ---
Author Organization [facility] [place] [address] Care Team Providers Care Door Liner Name Role Phone Belkys Bundy Primary Care Provider +1- [phone] Encounter Details Date Type Department Care Team (Late st Contact Info) Description 11/27/2021 Telephone [place] [address] Carolyn Henry RMA Social History Tobacco Use [...] cancel appointment. I advised pt to call aerotriangulation specialist to properly cancel & reschedule. documented in this encounter Plan of Treatment Upcoming Encounters Date Type Department Care Team (Late st Contact Info) Description 08/27/2024 4:00 PM EDT Office Visit [place] [address] Kira Thayer MD [facility] [place] [address] documented as of this encounter Visit Diagnoses Not on filedocumented in this encounter Care Teams Door Liner Relationship Specialty Start Date End Date Belkys Bundy DO [address] [place] [address] PCP - General Family Medicine 03/21/19 documented as of this encounter
--- OUTSIDE RECORDS SUMMARY | 2024-04-21 18:51 | XMS_ITS | Encounter Summary ---
Author Organization Formerly [facility] [place] [address] Care Team Providers Care Parts Control Clerk Name Role Phone Belkys Bundy DO Primary Care Provider +1- [phone] Encounter Details Date Type Department Care Team (Late st Contact Info) Description 06/15/2023 Telephone [place] [address] Millicent Valles Social History Tobacco Use Types [...] - 06/15/2023 5:07 PM EST Copied from [facility] #[id number]. Topic: Specialty Dept CRMs - Appointment Needed [...] 4:00 PM EDT Office [place] [address] Kira Thayer MD [facility] [place] [address] documented as of this encounter Visit Diagnoses Not on filedocumented in this encounter Care Teams Parts Control Clerk Relationship Specialty Start Date End Date Belkys Bundy DO [address] [place] [address] PCP - General Family Medicine 03/21/19 documented as of this encounter
--- OUTSIDE RECORDS SUMMARY | 2024-04-21 18:51 | XMS_ITS | Encounter Summary ---
Author Organization [facility] [place] [address] Care Team Providers Care Primary Operator Name Role Phone Belkys Bundy Primary Care Provider +1- [phone] Encounter Details Date Type Department Care Team (Latest Contact Info) Description 08/05/2022 3:00 PM EDT TH Visit (TeleHealth) [place] [address] Kira Thayer MD [facility] [place] [address] COPD, very severe; Supplemental oxygen dependent; Tobacco [...] from the original note were not included. [facility] Section of Pulmonary and Critical Care Medicine Outpatient Consultation Date of Encounter: 08/05/2022 TELEHEALTH VISIT Patient identity was confirmed at beginning of this telehealth visit. Patient is aware that this telehealth visit replaces an in-office clinical evaluation, is a billable encounter and agrees to continue. The patient is in [place]. Reason for Evaluation: Ms. Jessie Sanchez returns [...] for follow-up. Chest CT was done at [facility] a couple weeks ago, and she was [...] due to dyspnea. She was working at [facility] [employer]. She thinks she stopped working in 2012. [...] to Visit Medication Sig Dispense Refill ??? [id number] (Trelegy Ellipta) 200-62.5-25 mcg Inhale 1 puff into the lungs daily. 28 each 11 ??? inhalational spacing device (Ricci Aerosol [place] Enhancer) Spacer .MEDSUPPLY ??? levothyroxine (Synthroid) 100 [...] 11 ??? fluticasone propionate (FLONASE) 50 mcg/actuation [place], Suspension ??? nicotine (NICODERM CQ) 21 mg/24 [...] involve a referral to a center in [place], and that she needs to quit smoking [...] on day of visit. Kira Thayer MD [facility] AT [facility] [address] Dept: [phone] Loc: [phone] documented in this encounter Plan of Treatment Upcoming Encounters Date Type Department Care Team (Late st Contact Info) Description 08/27/2024 4:00 PM EDT Office [place] [address] Kira Thayer MD [facility] [place] [address] documented as of this encounter Visit Diagnoses Diagnosis COPD, very severe Chronic airway obstruction, not elsewhere classified Supplemental oxygen dependent Dependence on supplemental oxygen Tobacco use Tobacco use disorder documented in this encounter Care Teams Primary Operator Relationship Specialty Start Date End Date Belkys Bundy DO [address] [place] [address] PCP - General Family Medicine 03/21/19 documented as of this encounter
--- OUTSIDE RECORDS SUMMARY | 2024-04-21 18:51 | XMS_ITS | Encounter Summary ---
Author Organization Formerly [facility] [place] [address] Care Team Providers Care Locomotive Mechanic Apprentice Name Role Phone Belkys Bundy DO Primary Care Provider +1- [phone] Reason for Visit * Reason Onset Date Comments Medication Refill 06/28/2022 Troy hawthorne Encounter Details Date Type Department Care Team (Late st Contact Info) Description 06/28/2022 Refill [place] [phone] Kira Thayer MD [facility] [place] [address] COPD, very severe Social History Tobacco Use [...] 4:00 PM EDT Office Visit [place] [address] Kira Thayer MD [facility] [place] [address] documented as of this encounter Visit Diagnoses Diagnosis COPD, very severe Chronic airway obstruction, not elsewhere classified documented in this encounter Care Teams Locomotive Mechanic Apprentice Relationship Specialty Start Date End Date Belkys Bundy DO [address] [place] [address] PCP - General Family Medicine 03/21/19 documented as of this encounter
--- OUTSIDE RECORDS SUMMARY | 2024-04-21 18:51 | XMS_ITS | Encounter Summary ---
Author Organization [facility] [place] [address] Care Team Providers Care Herbicide Sprayer Name Role Phone OliverLizeth mooresea Rachel DO Primary Care Provider +1- [phone] Encounter Details Date Type Department Care Team (Late st Contact Info) Description 09/22/2021 Telephone [place] [address] Millicent Valles Social History Tobacco [...] 4:00 PM EDT Office [place] [address] Kira Thayer MD [facility] [place] [address] documented as of this encounter Visit Diagnoses Not on filedocumented in this encounter Care Teams Herbicide Sprayer Relationship Specialty Start Date End Date Belkys Bundy DO [address] [place] [address] PCP - General Family Medicine 03/21/19 documented as of this encounter
--- OUTSIDE RECORDS SUMMARY | 2024-04-21 18:51 | XMS_ITS | Encounter Summary ---
[place] [address] Care Team Providers Care Global Consumer Sector Vice President Name Role Phone Belkys Bundy Primary Care Provider +1- [phone] Reason for Visit * Reason Onset Date Comments Other 10/01/2021 Trelegy Ellipta Encounter Details Date Type Department Care Team (Late [facility]) Description 10/01/2021 [place]phone [place] [address] Emily Starr RN Other (Trelegy Ellipta) Social [...] 1:27 PM EDT RN called Bettina in [facility] to confirm patient was able to get Trelegy ellipta. RN was notified that patient's next dispense was ready for leaf size picker. documented in this encounter Plan of Treatment Upcoming Encounters Date Type Department Care Team (Late st Contact Info) Description 08/27/2024 4:00 PM EDT Office [place] [address] Kira Thayer MD [facility] [place] [address] documented as of this encounter Visit Diagnoses Not on filedocumented in this encounter Care Teams Global Consumer Sector Vice President Relationship Specialty Start Date End Date Belkys Bundy DO [address] [place] [address] PCP - General Family Medicine 03/21/19 documented as of this encounter
--- OUTSIDE RECORDS SUMMARY | 2024-04-21 18:51 | XMS_ITS | Encounter Summary ---
[place] [address] Care Team Providers Care Furniture Upholstery Mechanic Name Role Phone Belkys Bundy Primary Care Provider +1- [phone] Reason for Visit * Reason Onset Date Comments Pulmon Rehab 02/17/2023 Encounter Details Date Type Department Care Team (Late st Contact Info) Description 02/17/2023 Telephone [place] [address] Emily Starr RN Pulmon Rehab Social History [...] PM EST RN faxed out referral to [facility] Pulmonary Rehab, attached was the following records: Referral, Patient Demographics, Allergy and Medication List, Immunization Summary, Office Visit Notes dated 02/07/2023, 11/22/2022, PFT results dated 10/18/2022, 09/13/2022 Fax submission confirmation time stamped for 02/17/2023 @ 7435, 30 pages with cover sheet. documented in this encounter Plan of Treatment Upcoming Encounters Date Type Department Care Team (Late st Contact Info) Description 08/27/2024 4:00 PM EDT Office [place] [address] Kira Thayer MD [facility] [place] [address] documented as of this encounter Visit Diagnoses Not on filedocumented in this encounter Care Teams Furniture Upholstery Mechanic Relationship Specialty Start Date End Date Belkys Bundy DO [address] [place] [address] PCP - General Family Medicine 03/21/19 documented as of this encounter
--- OUTSIDE RECORDS SUMMARY | 2024-04-21 18:51 | XMS_ITS | Encounter Summary ---
[place] [address] Care Team Providers Care Help Desk Assistant Name Role Phone Belkys Bundy Primary Care Provider +1- [phone] Reason for Visit * Reason Onset Date Comments Cough 08/06/2021 COPD 08/06/2021 Excessive Phlegm 08/06/2021 Encounter Details Date Type Department Care Team (Late st Contact Info) Description 08/06/2021 Telephone [place] [address] Emily Starr RN Cough; COPD; Excessive Phlegm [...] 08/07/2021 1:05 PM EDT Spoke with Mrs. Sanchez. Many days of sinus congestion, now dyspnea, [...] antibiotic andprednisone Thanks jessie CARMONA called to [facility] in [facility], confirming that patient had previously picked up [...] utilized her prednisone from [place]. Preferred Pharmacy: [facility] in [facility]. Confirmed Returned Contact Number: [phone] documented in this encounter Plan of Treatment Upcoming Encounters Date Type Department Care Team (Late st Contact Info) Description 08/27/2024 4:00 PM EDT Office [place] [address] Kira Thayer MD [facility] DR [place]MONARY [place] [address] documented as of this encounter Visit Diagnoses Diagnosis COPD with exacerbation Obstructive chronic bronchitis with exacerbation documented in this encounter Care Teams Help Desk Assistant Relationship Specialty Start Date End Date Belkys Bundy DO [address] [place] [address] PCP - General Family Medicine 03/21/19 documented as of this encounter
--- OUTSIDE RECORDS SUMMARY | 2024-04-21 18:51 | XMS_ITS | Encounter Summary ---
Author Organization Formerly [facility] [place] [address] Care Team Providers Care Fire Control Technician Name Role Phone Belkys Bundy DO Primary Care Provider +1- [phone] Encounter Details Date Type Department Care Team (Late st Contact Info) Description 08/05/2022 Telephone [place] [address] Millicent Valles Social History Tobacco [...] PM EDT Office [place] [address] Kira Thayer MD [facility] [place] [address] documented as of this encounter Visit Diagnoses Not on filedocumented in this encounter Care Teams Fire Control Technician Relationship Specialty Start Date End Date Belkys Bundy DO [address] [place] [address] PCP - General Family Medicine 03/21/19 documented as of this encounter
--- OUTSIDE RECORDS SUMMARY | 2024-04-21 18:51 | XMS_ITS | Encounter Summary ---
[place] [address] Care Team Providers Care Graphic Technician Name Role Phone Belkys Bundy Primary Care Provider +1- [phone] Reason for Referral * Diagnostic Test (Routine) - Closed Specialty Diagnoses / Procedures Referred By Rossy levine Referred To Contact Radiology Diagnoses Bacterial pneumonia Procedures CT Chest wo Contrast (Generic) Kira Thayer MD [facility] [place] [address] [facility] [place] [address] Referral ID Status Reason Start Date Expiration Date V isits Requested Visits Authorized [id number] Closed Specialty Service Requested 10/18/2022 04/20/2024 1 1 Encounter Details Date Type Department Care Team (Late st Contact Info) Description 10/18/2022 8:00 AM EDT Office [place] [address] Kira Thayer MD [facility] [place] [address] COPD, very severe; Tobacco use; [...] from the original note were not included. [facility] Section of Pulmonary and Critical Care Medicine [...] Prior to Visit Medication Sig Dispense Refill [id number] (Trelegy Ellipta) 200-62.5-25 mcg Inhale 1 puff into the lungs daily. 28 each 11 inhalational spacing device (Ricci Aerosol [place] Enhancer) Spacer .MEDSUPPLY levothyroxine (Synthroid) 100 mcg [...] tablet 11 fluticasone propionate (FLONASE) 50 mcg/actuation [place], Suspension atorvastatin (Lipitor) 20 mg Tablet cyclobenzaprine [...] EVERY DAY NEEDED FOR COPD EXACERBATION; ALERT DAM TENDER AND PCP predniSONE (Deltasone) 10 mg tablet [...] remains below baseline (severe obstruction again with [id number] increased to 22% predicted); I recommended we [...] involve a referral to a center in [place], and that she needs to quit smoking [...] day of visit. Kira Thayer MD [facility] PULMONOLOGY AT [facility] [address] Dept: [phone] Loc: [phone] documented in this encounter Plan of Treatment Upcoming Encounters Date Type Department Care Team (Late st Contact Info) Description 08/27/2024 4:00 PM EDT Office [place] [address] Kira Thayer MD [facility] [place] [address] documented as of this encounter Procedures Procedure [...] who have questions please contact the health acute care nurse practitioner that requested your imaging first. ? Narrative 10/25/2022 10:54 AM EDT EXAMINATION: CT [...] patients who have questions please contactthe health acute care nurse practitioner that requested your imaging first. Kira Thayer MD IMG CT ORDERABLES * (ABNORMAL) Blood Gas Venous ([facility]) (10/18/2022 8:56 AM EDT) pH, Venous 7.35 7.32 - 7.42 [facility] PCO2, Venous 56(H) 41 - 51 mmHg [facility] PO2, Venous 42(H) 25 - 40 mmHg [facility] Bicarbonate, Venous 30.3 mmol/L [facility] Base Excess, Venous 4.7 mmol/L [facility] Hgb Blood Gas 15.7(H) 11.7 - 15.5 g/dL [facility] Oxyhemoglobin, Venous 74.0 % [facility] Carboxyhemoglob in, Venous 5.3 % [facility] Comment: Nonsmokers: 0.5-1.5% COHB Smokers: Variable, but usually less than 10% Toxic: 20-30% COHB Lethal: Greater than 60% COHB Methemoglobin, Venous 0.3 <=1.5 % [facility] Na Whole Blood 142 135 - 145 mmol/L [facility] K Whole Blood 3.5 3.5 - 5.0 mmol/L [facility] Comment: Please note: Patients with WBC >100,000 may have falsely elevated Potassium levels. Contact the Clinical Chemistry Laboratory if there are any questions. ICa Whole Blood 1.23 1.15 - 1.33 mmol/L [facility] Comment: Note: ??Total bilirubin higher than 20 mg/dL may lead to falsely low ionized calcium. CL Whole Blood 103 98 - 107 mmol/L [facility] Gluc Whole Bld 92 65 - 199 mg/dL [facility] Comment:Diabetes: >=200 mg/d L plus symptoms Lactate WB 1.7 0.5 - 2.2 mmol/L [facility] Blood Gas Source Venous [facility] Blood Venous Draw / Unknown 10/18/2022 8:56 AM EDT 10/18/2022 9:00 AM EDT Narrative Resulting Agency Comment Spec In Lab Kira Thayer MD CHEMISTRY ORDERABLES Performing Organization Address [facility] Co de Phone Number [facility] [address] * (ABNORMAL) Lower Respiratory Culture Sputum Expectorated (10/18/2022 8:38 AM EDT) Lower Respiratory Culture Few mixed bacterial morphotypes suggestive of normal upper respiratory roxanne(A) [facility] Gram Stain Many Neutrophils seen Few squamous epithelial cells seen Few Gram Positive Cocci seen (A) [facility] Organism Gram Positive Cocci(A) [facility] Sputum Expectorated 10/19/19 8:38 AM EDT 10/18/2022 9:41 AM EDT Narrative Resulting Agency Comment Spec In Lab Kira Thayer MD MICROBIOLOGY - GENER AL ORDERABLES Performing Organization Address [facility] Co de Phone Number [facility] [address] documented in this encounter Visit Diagnoses Diagnosis COPD, very severe Chronic airway obstruction, not elsewhere classified Tobacco use Tobacco use disorder Bacterial pneumonia Bacterial pneumonia, unspecified Bacterial pneumonia Bacterial pneumonia, unspecified documented in this encounter Care Teams Graphic Technician Relationship Specialty Start Date End Date Belkys Bundy DO [address] [place] [address] PCP - General Family Medicine 03/21/19 documented as of this encounter
--- OUTSIDE RECORDS SUMMARY | 2024-04-21 18:51 | XMS_ITS | Encounter Summary ---
[place] [address] Care Team Providers Care Veneer Jointer Name Role Phone Belkys Bundy Primary Care Provider +1- [phone] Reason for Visit * Reason Onset Date Comments Medication Refill 07/26/2022 Encounter Details Date Type Department Care Team (Late st Contact Info) Description 07/26/2022 [place] [address] Emily Starr RN COPD, very severe Social [...] 8:50 PM Thanks Jessie Sanchez to [facility] Pulmonology Nurse (supporting Kira Thayer MD) SL ?? 8:[address] Thayer I need my trilogy but my pharmacy has changed to [facility] in [place] http [email or web address] documented in this encounter Plan of Treatment Upcoming Encounters Date Type Department Care Team (Late st Contact Info) Description 08/27/2024 4:00 PM EDT [place] [address] Kira Thayer MD [facility] [place] [address] documented as of this encounter Visit Diagnoses Diagnosis COPD, very severe Chronic airway obstruction, not elsewhere classified documented in this encounter Care Teams Veneer Jointer Relationship Specialty Start Date End Date Belkys Bundy DO [address] [place] [address] PCP - General Family Medicine 03/21/19 documented as of this encounter
--- OUTSIDE RECORDS SUMMARY | 2024-04-21 18:51 | XMS_ITS | Encounter Summary ---
[place] [address] Care Team Providers Care Feed Miller Name Role Phone Belkys Bundy Primary Care Provider +1- [phone] Reason for Visit * Reason Onset Date Comments Oxygen Dependence 11/25/2022 Overnight Puls e Oximetry Testing Encounter Details Date Type Department Care Team (Late st Contact Info) Description 11/25/2022 Telephone [place] [address] Emily Starr RN Oxygen Dependence (Overnight Pulse [...] testing requsition, signed by Dr. Thayer, to [facility]. Attached to this was the following items: Patient Demographics This covered the following items: Overnight on 2 LPM Supplemental O2 Fax submission confirmation time stamped for 11/25/2022 @ 7587. 6 pages with cover sheet. documented in this encounter Plan of Treatment Upcoming Encounters Date Type Department Care Team (Late st Contact Info) Description 08/27/2024 4:00 PM EDT Office [place] [address] Kira Thayer MD [facility] [place] [address] documented as of this encounter Visit Diagnoses Not on filedocumented in this encounter Care Teams Feed Miller Relationship Specialty Start Date End Date Belkys Bundy DO [address] [place] [address] PCP - General Family Medicine 03/21/19 documented as of this encounter
--- OUTSIDE RECORDS SUMMARY | 2024-04-21 18:51 | XMS_ITS | Encounter Summary ---
Author Organization [facility] [place] [address] Care Team Providers Care It Architecture Consultant Name Role Phone Belkys Bundy Primary Care Provider +1- [phone] Encounter Details Date Type Department Care Team (Latest Contact Info) Description 03/31/2022 8:34 AM EST - 03/31/2022 11:59 PM EST Hospital Encounter [place] [address] COPD, very severe Discharge Disposition: Home Social [...] End Date inhalational spacing device (Ricci Aerosol [place] Enhancer) Spacer .MEDSUPPLY 02/01/2020 levothyroxine (Synthroid) 100 [...] 11 07/16/2020 fluticasone propionate (FLONASE) 50 mcg/actuation [place], Suspension 02/01/2020 atorvastatin (Lipitor) 20 mg Tablet [...] 4:00 PM EDT Office [place] [address] Kira Thayer MD [facility] [place] [address] documented as of this encounter Procedures Procedure [...] / FVC LLN 69 % COMPAS PFT [id number] Actual Pre-BD 0.30 L/s COMPAS PFT [id number] Pre-BD % of Predicted 11 % COMPAS PFT YLF01-69 Predicted 2.74 L/s COMPAS PFT JUB69-19 Pre-BD Z-Score -4.27 COMPAS PFT DLCO Hb [...] classified documented in this encounter Care Teams It Architecture Consultant Relationship Specialty Start Date End Date Belkys Bundy DO [address] [place] [address] PCP - General Family Medicine 03/21/19 documented as of this encounter
--- OUTSIDE RECORDS SUMMARY | 2024-04-21 18:51 | XMS_ITS | Encounter Summary ---
Author Organization Formerly [facility] [place] [address] Care Team Providers Care Cake Cutter Machine Name Role Phone Belkys Bundy DO Primary Care Provider +1- [phone] Encounter Details Date Type Department Care Team [...] 4:00 PM EDT [place] [address] Kira Thayer MD [facility] [place] [address] documented as of this encounter Visit Diagnoses Not on filedocumented in this encounter Care Teams Cake Cutter Machine Relationship Specialty Start Date End Date Belkys Bundy DO [address] [place], [place] [address] PCP - General Family Medicine 03/21/19 documented as of this encounter
--- OUTSIDE RECORDS SUMMARY | 2024-04-21 18:51 | XMS_ITS | Encounter Summary ---
Author Organization [facility] Address [facility] [place] [address] Care Team Providers Care Wildland Fire Operations Specialist Name Role Phone Belkys Bundy Primary Care Provider +1- [phone] Encounter Details Date Type Department Care Team (Late st Contact Info) Description 06/20/2023 2:00 PM EDT [place] [address] Kira Thayer MD [facility] [place] [address] COPD, very severe; Supplemental oxygen dependent; Cigarette [...] from the original note were not included. [facility] Section of Pulmonary and Critical [...] heard yet from pulm rehab program at [facility] but still interested. She was seen by the lung Transplant Team at [facility] for initial transplant assessment 12/2022; she has [...] needed. Only takes when really needs them ckkwxambxaa-spvxnfdtnjqf-mbyhxnkrst (Trelegy Ellipta) 200-62.5-25 mcg Inhale 1 puff into the lungs daily. 28 each 11 predniSONE (Deltasone) 20 mg tablet TAKE TWO TABLETS BY MOUTH EVERY DAY NEEDED FOR COPD EXACERBATION; ALERT SUPERVISOR HISTOLOGY AND PCP inhalational spacing device (Ricci Aerosol [place] Enhancer) Spacer .MEDSUPPLY levothyroxine (Synthroid) 100 mcg [...] tablet 11 fluticasone propionate (FLONASE) 50 mcg/actuation [place], Suspension atorvastatin (Lipitor) 20 mg Tablet cyclobenzaprine [...] is currently pursuing lung transplant evaluation at [facility] and [facility]. She will benefit from pulm rehab; we have previously placed a referral to this program at [facility] in [facility], and she will call them now [...] indicated for stable small pulm nodules seen [id number]. We will hold off on repeat PFTs here given these are anticipated to be done at her next transplant assessment visit. Summary Recommendations: - pulm rehab encouraged, she will call program at [facility] to try to enroll - continue trelegy [...] questions or concerns. Kira Thayer MD N [facility] PULMONOLOGY AT [facility] [address] Dept: [phone] Loc: [phone] documented in this encounter Plan of Treatment Upcoming Encounters Date Type Department Care Team (Late Contact Info) Description 08/27/2024 4:00 PM EDT [place] [address] Kira Thayer MD [facility] DR PULMONARY MEDICINE [place] [id number] documented as of this encounter Visit Diagnoses Diagnosis COPD, very severe Chronic airway obstruction, not elsewhere classified Supplemental oxygen dependent Dependence on supplemental oxygen Cigarette nicotine dependence in remission Tobacco use disorder documented in this encounter Care Teams Wildland Fire Operations Specialist Relationship Specialty Start Date End Date Belkys Bundy DO [address] [place] [address] PCP - General Family Medicine 03/21/19 documented as of this encounter
--- OUTSIDE RECORDS SUMMARY | 2024-04-21 18:51 | XMS_ITS | Encounter Summary ---
Author Organization [facility] [place] [address] Care Team Providers Care It Desktop Support Technician Name Role Phone Belkys Bundy DO Primary Care Provider +1- [phone] Encounter Details Date Type Department Care Team (Late st Contact Info) Description 07/08/2021 Orders [place] [address] Kira Thayer MD [facility] [place] [address] COPD, very severe Social History Tobacco Use [...] 4:00 PM EDT Office [place] [address] Kira Thayer MD [facility] [place] [address] documented as of this encounter Visit Diagnoses Diagnosis COPD, very severe Chronic airway obstruction, not elsewhere classified documented in this encounter Care Teams It Desktop Support Technician Relationship Specialty Start Date End Date Belkys Bundy DO [address] [place] [address] PCP - General Family Medicine 03/21/19 documented as of this encounter
--- OUTSIDE RECORDS SUMMARY | 2024-04-21 18:51 | XMS_ITS | Encounter Summary ---
[place] [address] Care Team Providers Care Nail Artist Name Role Phone Belkys Bundy Primary Care Provider +1- [phone] Reason for Visit * Reason Onset Date Comments Disability Paperwork 08/05/2022 Encounter Details Date Type Department Care Team (Late st Contact Info) Description 08/05/2022 Telephone [place] [address] Emily Starr RN Disability Paperwork Social History [...] filled and signed by Dr. Thayer to [facility]. Fax submission confirmation time stamped for 08/05/2022 @ 2266. 4 pages with coversheet. Mailed copy of original paperwork to patient's address on file. Sent copy to scanning for inclusionto patient records. documented in this encounter Plan of Treatment Upcoming Encounters Date Type Department Care Team (Late st Contact Info) Description 08/27/2024 4:00 PM EDT Office [place] [address] Kira Thayer MD [facility] [place] [address] documented as of this encounter Visit Diagnoses Not on filedocumented in this encounter Care Teams Nail Artist Relationship Specialty Start Date End Date Belkys Bundy DO [address] [place] [address] PCP - General Family Medicine 03/21/19 documented as of this encounter
--- OUTSIDE RECORDS SUMMARY | 2024-04-21 18:51 | XMS_ITS | Encounter Summary ---
Author Organization [facility] [place] [address] Care Team Providers Care Pump Attendant Name Role Phone Belkys Bundy DO Primary Care Provider +1- [phone] Encounter Details Date Type Department Care Team (Late st Contact Info) Description 08/21/2021 Ancillary Procedure Radiology Library at [facility] [place] [address] Belkys Bundy DO [address] [place], [place] [id number] Social History Tobacco Use Types Packs/Day Years [...] 4:00 PM EDT Office Visit Pulmonology at [facility] [place] [address] Kira Thayer MD [facility] DR PULMONARY MEDICINE [place], [place] [phone] documented as of this encounter Procedures Procedure Name Priority Date/Time Associated Diagnosis Comments FILM LIBRARY STORAGE ONLY DX CHEST Routine 08/21/2021 12:00 AM EDT documented in this encounter Results * Film Library- Storage Only DX Chest (08/21/2021 12:00 AM EDT) Narrative [facility] - 09/01/2021 11:25 AM EDT This exam is auto-finalizing. It's purpose is for storage only. Belkys Bundy DO G FILM LIBRARY O RDERABLES Performing Organization Address City/State/[facility] Co de Phone Number [place], [place] documented in this encounter Visit Diagnoses Not on filedocumented in this encounter Care Teams Pump Attendant Relationship Specialty Start Date End Date Belkys Bundy DO [address] [place] [address] PCP - General Family Medicine 03/21/19 documented as of this encounter
--- OUTSIDE RECORDS SUMMARY | 2024-04-21 18:51 | XMS_ITS | Encounter Summary ---
Author Organization [facility] [place] [address] Care Team Providers Care Head Waiter/Waitress Name Role Phone Belkys Bundy Primary Care Provider +1- [phone] Encounter Details Date Type Department Care Team (Late st Contact Info) Description 09/09/2021 9:00 AM EDT Office [place] [address] Kira Thayer MD [facility] [place] [address] COPD, very severe; Supplemental oxygen dependent; Cigarette [...] Refill ??? inhalational spacing device (Ricci Aerosol [place] Enhancer) Spacer .MEDSUPPLY ??? levothyroxine (Synthroid) 100 mcg Tablet Take 100 mcg by mouth nightly. ??? ptthywwlodo-asxaxlmri-iarjwiry (Trelegy Ellipta) 200-62.5-25 mcg Disk with Device [...] 11 ??? fluticasone propionate (FLONASE) 50 mcg/actuation [place], Suspension ??? atorvastatin (Lipitor) 20 mg Tablet [...] involve a referral to a center in [place]. Summary Recommendations: - continue trelegy inhaler 200 [...] day of visit. Kira Thayer MD N [facility] PULMONOLOGY AT [facility] [address] Dept: [phone] Loc: [phone] documented in this encounter Plan of Treatment Upcoming Encounters Date Type Department Care Team (Late st Contact Info) Description 08/27/2024 4:00 PM EDT Office [place] [address] Kira Thayer MD [facility] [place] [address] documented as of this encounter Results * [...] / FVC LLN 69 % COMPAS PFT [id number] Actual Pre-BD 0.30 L/s COMPAS PFT [id number] Pre-BD % of Predicted 11 % COMPAS PFT [id number] Predicted 2.74 L/s COMPAS PFT [id number] Pre-BD Z-Score -4.27 COMPAS PFT DLCO Hb [...] Predicted 4.30 mL/min/mmHg /L [facility] PFT N[facility]ative [facility] 03/31/2022 8:40 AM EST [...] classified documented in this encounter Care Teams Head Waiter/Waitress Relationship Specialty Start Date End Date Belkys Bundy DO [address] [facility] [place] [address] PCP - General Family Medicine 03/21/19 documented as of this encounter
--- OUTSIDE RECORDS SUMMARY | 2024-04-21 18:51 | XMS_ITS | Encounter Summary ---
Author Organization [facility] [place] [place] [address] Care Team Providers Care Core Winding Operator Name Role Phone Belkys Bundy Primary Care Provider +1- [phone] Reason for Referral * Rehabilitation (Routine) - Closed Specialty Diagnoses / Procedures Referred By Contact Referred To Contact Pulmonary Rehabilitation / Rehabilitation Diagnoses COPD, very severe Kira Thayer MD [facility] [place] [address] Referral ID Status Reason Start Date Expiration Date V isits Requested Visits Authorized [id number] Closed Evaluate and Treat 02/07/2023 08/06/2023 1 1 Encounter Details Date Type Department Care Team (Late st Contact Info) Description 02/07/2023 9:30 AM EDT Office [place] [address] Kira Thaeyr MD [facility] [place] [address] COPD, very severe; Supplemental oxygen dependent; Immunization [...] from the original note were not included. [facility] Section of Pulmonary and Critical Care [...] initial visit by the Transplant Team at [facility] for initial transplant assessment 12/2022; they identified need to be abstinent from nicotine for 6 months before moving forward with full transplant assessment. They will see her back in 6months. She reports this was a very positive visit. Met primarily with a quality coordinator and learned a lot about the process. They are postponing any testing until she demonstrates 6 months nicotine-free. Mrs. Sanchez reports she is doing well! She is walking more, slowly but trying to increase this. She would like to redo pulm rehab now, [facility] would be closest program. She quit [...] Prior to Visit Medication Sig Dispense Refill wdedtxtmmyk-qhqrxuviuiuj-fmyixerryp (Trelegy Ellipta) 200-62.5-25 mcg Inhale 1 puff into the lungs daily. 28 each 11 predniSONE (Deltasone) 20 mg tablet TAKE TWO TABLETS BY MOUTH EVERY DAY NEEDED FOR COPD EXACERBATION; ALERT WOOD TILE INSTALLER AND PCP inhalational spacing device (Ricci Aerosol [place] Enhancer) Spacer .MEDSUPPLY levothyroxine (Synthroid) 100 mcg [...] tablet 11 fluticasone propionate (FLONASE) 50 mcg/actuation [place], Suspension atorvastatin (Lipitor) 20 mg Tablet cyclobenzaprine [...] pulmonary rehab, referral is being placed to [facility]. She has been disabled beginning around 2012 due to severe COPD with hypoxic respiratory failure on chronic supplemental O2; I completed updated disability paperwork in July 2022 documenting continued pulmonary limitations and care needs. She has quit smoking as of 11/2022, and will qualify for lung cancer screening when she turns 55. Nospecific f/u currently indicated for stable small pulm nodules seen . She is very motivated to move forward with lung transplant evaluation with [facility] and [facility]; she will see them again around May-June, at which time they anticipate moving forward with pre-transplant testing if she has remained abstinent from smoking for 6 months. She is on track for this. We will hold off on repeat PFTs here given these are anticipated to be done at her next transplant assessment visit. Summary Recommendations: - pulm rehab referral placed, to go to [facility] - continue trelegy inhaler 200 daily, [...] day of visit. Kira Thayer MD N [facility] PULMONOLOGY AT [facility] [address] Dept: [phone] Loc: [phone] documented in this encounter Plan of Treatment Upcoming Encounters Date Type Department Care Team (Late st Contact Info) Description 08/27/2024 4:00 PM EDT Office [place] [address] Kira Thayer MD [facility] [place] [address] Scheduled Referrals Name Type Priority Associated Diagnoses [...] disorder documented in this encounter Care Teams Core Winding Operator Relationship Specialty Start Date End Date Belkys Bundy DO [address] [place] [address] PCP - General Family Medicine 03/21/19 documented as of this encounter
--- OUTSIDE RECORDS SUMMARY | 2024-04-21 18:51 | XMS_ITS | Encounter Summary ---
Author Organization [facility] [place] [address] Care Team Providers Care Cloth Laminating Supervisor Name Role Phone OliverLizeth mooresea Rachel DO Primary Care Provider +1- [phone] Encounter Details Date Type Department Care Team (Late st Contact Info) Description 09/23/2021 [place] [address] Millicent Valles Social History Tobacco [...] 4:00 PM EDT [place] [address] Kira Thayer MD [facility] [place] [address] documented as of this encounter Visit Diagnoses Not on filedocumented in this encounter Care Teams Cloth Laminating Supervisor Relationship Specialty Start Date End Date Belkys Bundy DO [address] [place] [address] PCP - General Family Medicine 03/21/19 documented as of this encounter
--- OUTSIDE RECORDS SUMMARY | 2024-04-21 18:51 | XMS_ITS | Encounter Summary ---
[place] [address] Care Team Providers Care Tongue Trimmer Name Role Phone Belkys Bundy Primary Care Provider +1- [phone] Encounter Details Date Type Department Care Team (Latest Contact Info) Description 10/18/2022 7:22 AM EDT - 10/18/2022 11:59 PM EDT Hospital [place] [address] COPD, very severe Discharge Disposition: Home Social [...] End Date inhalational spacing device (Ricci Aerosol [place] Enhancer) Spacer .MEDSUPPLY 02/01/2020 levothyroxine (Synthroid) 100 [...] 11 07/16/2020 fluticasone propionate (FLONASE) 50 mcg/actuation [place], Suspension 02/01/2020 atorvastatin (Lipitor) 20 mg Tablet [...] mg tablet 04/12/2013 predniSONE (Deltasone) 20 mg tabletIndications:STEM FRAZER D, very severe Take 1 tablet by [...] EVERY DAY NEEDED FOR COPD EXACERBATION; ALERT BOWLING FLOOR MANAGER AND PCP 09/01/2022 06/20/2023 potassium chloride (KLOR-CON) [...] 4:00 PM EDT [place] [address] Kira Thayer MD [facility] DR [place] [address] documented as of this encounter Procedures Procedure [...] / FVC LLN 69 % COMPAS PFT [id number] Actual Pre-BD 0.23 L/s COMPAS PFT [id number] Pre-BD % of Predicted 8 % COMPAS PFT EUD02-23 Predicted 2.71 L/s COMPAS PFT [id number] Pre-BD Z-Score -4.49 COMPAS PFT DLCO Hb [...] classified documented in this encounter Care Teams Tongue Trimmer Relationship Specialty Start Date End Date Belkys Bundy DO [address] [place] [address] PCP - General Family Medicine 03/21/19 documented as of this encounter
--- OUTSIDE RECORDS SUMMARY | 2024-04-21 18:51 | XMS_ITS | Encounter Summary ---
Author Organization [facility] Address [facility] [place] [address] Care Team Providers Care Production Manager Name Role Phone Belkys Bundy Primary Care Provider +1- [phone] Encounter Details Date Type Department Care Team (Late st Contact Info) Description 09/13/2022 8:00 AM EDT Office [place] [address] Kira Thayer MD [facility] [address] COPD, very severe; COPD with exacerbation Social [...] this week. Take a sputum sample to [facility] lab. documented in this encounter Progress Notes * Kira Thayer MD - 09/13/2022 8:00 AM EDT Images from the original note were not included. [facility] Section of Pulmonary and Critical [...] EVERY DAY NEEDED FOR COPD EXACERBATION; ALERT TRAIN ATTENDANT AND PCP yaxueqyckqs-usfqhzjmpctz-bxkvxfneax (Trelegy Ellipta) 200-62.5-25 mcg Inhale 1 puff into the lungs daily. 28 each 11 inhalational spacing device (Ricci Aerosol [place] Enhancer) Spacer .MEDSUPPLY levothyroxine (Synthroid) 100 mcg [...] tablet 11 fluticasone propionate (FLONASE) 50 mcg/actuation [place], Suspension nicotine (NICODERM CQ) 21 mg/24 hr [...] involve a referral to a center in [place], and that she needs to quit smoking [...] on day of visit. MD Omari Hogue [facility] PULMONOLOGY AT [facility] [address] Dept: [phone] Loc: [phone] documented in this encounter Plan of Treatment Upcoming Encounters Date Type Department Care Team (Late st Contact Info) Description 08/27/2024 4:00 PM EDT Office Visit Pul[place]ology [place] [address] Kira Thayer MD [facility] [place] [address] documented as of this encounter Procedures Procedure [...] / FVC LLN 69 % COMPAS PFT [id number] Actual Pre-BD 0.23 L/s COMPAS PFT [id number] Pre-BD % of Predicted 8 % COMPAS PFT [id number] Predicted 2.71 L/s COMPAS PFT [id number] Pre-BD Z-Score -4.49 COMPAS PFT DLCO Hb [...] Thayer MD PFT ORDERABLES Performing Organization Address City/[facility] Co de Phone Number COMPAS PFT * AFB culture (09/13/2022 8:43 AM EDT) Acid Fast Bacilli Culture No Acid Fast Bacilli isolated If active tuberculosis is suspected, the patient should be on [employer] PRECAUTIONS. Call Infection Prevention for assistance if needed. [facility] Acid Fast Stain No Acid Fast Bacilli seen [facility] Sputum Expectorated 09/14/19 8:43 AM EDT 09/13/2022 9:13 AM EDT Narrative Resulting Agency Comment Spec In Lab Kira Thayer MD MICROBIOLOGY - GENER AL ORDERABLES Performing Organization Address [facility] Co de Phone Number [facility] [place] [address] * (ABNORMAL) Lower Respiratory Culture (09/13/2022 8:43 AM EDT) Lower Respiratory Culture Many mixed bacterial morphotypes suggestive of normal upper respiratory roxanne(A) [facility] Gram Stain Many Neutrophils seen Moderate squamous epithelial cells seen Many Gram Positive Cocci seen (A) [facility] Organism Gram Positive Cocci(A) [facility] Sputum Expectorated 09/14/19 8:43 AM EDT 09/13/2022 9:12 AM EDT Narrative Resulting Agency Comment Spec In Lab Kira Thayer MD MICROBIOLOGY - GENER AL ORDERABLES Performing Organization Address [facility] Co de Phone Number [facility] [place] [address] documented in this encounter Visit Diagnoses Diagnosis COPD, very severe Chronic airway obstruction, not elsewhere classified COPD with exacerbation Obstructive chronic bronchitis with exacerbation COPD, very severe Chronic airway obstruction, not elsewhere classified documented in this encounter Care Teams Production Manager Relationship Specialty Start Date End Date Belkys Bundy DO [address] [place] [address] PCP - General Family Medicine 03/21/19 documented as of this encounter
--- OUTSIDE RECORDS SUMMARY | 2024-04-21 18:51 | XMS_ITS | Encounter Summary ---
Author Organization [facility] Address [facility] [place] [address] Care Team Providers Care Product Support Analyst Name Role Phone Belkys Bundy DO Primary Care Provider +1- [phone] Encounter Details Date Type Department Care Team [...] 4:00 PM EDT [place] [address] Kira Thayer MD [facility] [place] [address] documented as of this encounter Visit Diagnoses Not on filedocumented in this encounter Care Teams Product Support Analyst Relationship Specialty Start Date End Date Belkys Bundy DO [address] [place] [address] PCP - General Family Medicine 03/21/19 documented as of this encounter
--- OUTSIDE RECORDS SUMMARY | 2024-04-21 18:51 | XMS_ITS | Encounter Summary ---
Author Organization [facility] [place] [address] Care Team Providers Care Open Hearth Stockyard Supervisor Name Role Phone Belkys Bundy DO Primary Care Provider +1- [phone] Encounter Details Date Type Department Care Team (Late st Contact Info) Description 07/05/2022 Telephone [place] [address] Millicent Valles Social History Tobacco [...] 4:00 PM EDT Office [place] [address] Kira Thayer MD [facility] [place] [address] documented as of this encounter Visit Diagnoses Not on filedocumented in this encounter Care Teams Open Hearth Stockyard Supervisor Relationship Specialty Start Date End Date Belkys Bundy DO [address] [place] [address] PCP - General Family Medicine 03/21/19 documented as of this encounter
--- OUTSIDE RECORDS SUMMARY | 2024-04-21 18:51 | XMS_ITS | Encounter Summary ---
[place] [address] Care Team Providers Care Bulk Cooler Installer Name Role Phone Belkys Bundy Primary Care Provider +1- [phone] Encounter Details Date Type Department Care Team (Late st Contact Info) Description 03/30/2022 Telephone [place] [address] Carolyn Henry RMA Social History Tobacco Use [...] 4:00 PM EDT Office [place] [address] Kira Thayer MD [facility] [place] [address] documented as of this encounter Visit Diagnoses Not on filedocumented in this encounter Care Teams Bulk Cooler Installer Relationship Specialty Start Date End Date Belkys Bundy DO [address] [place] [address] [place] [address] PCP - General Family Medicine 03/21/19 documented as of this encounter
--- OUTSIDE RECORDS SUMMARY | 2024-04-21 18:51 | XMS_ITS | Encounter Summary ---
Author Organization [facility] [place] [address] Care Team Providers Care Manufacturer Representative Name Role Phone Belkys Bundy Primary Care Provider +1- [phone] Encounter Details Date Type Department Care Team (Late st Contact Info) Description 07/08/2021 Telephone [place] [phone] Juanis Osullivan, RT Social History Tobacco Use [...] 4:00 PM EDT Office [place] [address] Kira Mejia MD [facility] [place] [address] documented as of this encounter Visit Diagnoses Not on filedocumented in this encounter Care Teams Manufacturer Representative Relationship Specialty Start Date End Date Belkys Bundy DO [address] [place] [address] PCP - General Family Medicine 03/21/19 documented as of this encounter
--- OUTSIDE RECORDS SUMMARY | 2024-04-21 18:51 | XMS_ITS | Encounter Summary ---
[place] [address] Care Team Providers Care Ornamental Metalwork Designer Name Role Phone Belkys Bundy Primary Care Provider +1- [phone] Encounter Details Date Type Department Care Team (Latest Contact Info) Description 09/13/2022 7:20 AM EDT - 09/13/2022 11:59 PM EDT Hospital [place] [address] COPD, very severe Discharge Disposition: Home Social [...] End Date inhalational spacing device (Ricci Aerosol [place] Enhancer) Spacer .MEDSUPPLY 02/01/2020 levothyroxine (Synthroid) 100 [...] 11 07/16/2020 fluticasone propionate (FLONASE) 50 mcg/actuation [place], Suspension 02/01/2020 atorvastatin (Lipitor) 20 mg Tablet [...] EVERY DAY NEEDED FOR COPD EXACERBATION; ALERT SITE SAFETY COORDINATOR AND PCP 09/01/2022 06/20/2023 predniSONE (Deltasone) 10 mg tabletIndications:SUPERVISOR INTERNATIONAL RESERVATIONS D with exacerbation After finishing 40 mg for 5 days take 30 mg for 5 days then 20 mg for 5 days then 10 mg for 5 days then stop. 30 tablet 09/13/2022 10/18/2022 fluticasone-umeclidin ium-vilanterol (Trelegy Ellipta) 200-62.5-25 mcgIndications:COPD, very severe Inhale 1 puff into the lungs daily. 28 each 11 07/27/2022 10/18/2022 azithromycin (Zithromax Z-Adama) 250 mg TabletIndications:SUPERVISOR INTERNATIONAL RESERVATIONS D, very severe Take 1 tablet by [...] 4:00 PM EDT [place] [address] Kira Thayer MD [facility] [place] [address] documented as of this encounter Procedures Procedure [...] / FVC LLN 69 % COMPAS PFT FWN92-58 Actual Pre-BD 0.19 L/s COMPAS PFT RFF67-75 Pre-BD % of Predicted 7 % COMPAS PFT IEU43-58 Predicted 2.71 L/s COMPAS PFT KMI53-38 Pre-BD Z-Score -4.66 COMPAS PFT DLCO Hb [...] Thayer MD PFT ORDERABLES Performing Organization Address City/State/[facility] Co de Phone Number COMPAS PFT documented in this encounter Visit Diagnoses Diagnosis COPD, very severe Chronic airway obstruction, not elsewhere classified documented in this encounter Care Teams Ornamental Metalwork Designer Relationship Specialty Start Date End Date Belkys Bundy DO [address] [place] [address] PCP - General Family Medicine 03/21/19 documented as of this encounter
--- OUTSIDE RECORDS SUMMARY | 2024-04-21 18:51 | XMS_ITS | Encounter Summary ---
Author Organization [facility] [place] [address] Care Team Providers Care Power Plant Electrician Name Role Phone Belkys Bundy Primary Care Provider +1- [phone] Encounter Details Date Type Department Care Team (Late st Contact Info) Description 12/14/2022 Telephone [place] [address] Kira Thayer MD [facility] [place] [address] Social History Tobacco Use Types Packs/Day Years [...] to review. Data capture was short, only [id number], but she confirms she was asleep during this time. Lowest HuN9zdi 91% while on home 2L [place] O2. This, combined with the ABG results showing improved CO2 (now 7.39/47) indicate that she does not have significant nocturnal hypoventilation at this time, and does not currently need nocturnal bipap. I reviewed this with her, and she will continue to use nocturnal 2L [place] O2. She shared she has an appointment set up with [facility] and [facility] Transplant team on 12/20. Kira Thayer MD documented in this encounter Plan of Treatment Upcoming Encounters Date Type Department Care Team (Late st Contact Info) Description 08/27/2024 4:00 PM EDT Office Visit [place] [address] Kira Thayer MD [facility] [place] [address] documented as of this encounter Visit Diagnoses Not on filedocumented in this encounter Care Teams Power Plant Electrician Relationship Specialty Start Date End Date Belkys Bundy DO [address] [place] [address] PCP - General Family Medicine 03/21/19 documented as of this encounter
--- OUTSIDE RECORDS SUMMARY | 2024-04-21 18:51 | XMS_ITS | Encounter Summary ---
Author Organization [facility] [place] [address] Care Team Providers Care Supervisor Special Education Name Role Phone Belkys Bundy DO Primary Care Provider +1- [phone] Encounter Details Date Type Department Care Team (Late st Contact Info) Description 09/20/2022 Telephone [place] [address] Millicent Valles Social History Tobacco [...] PM EDT Office Visit [place] [address] Kira Thayer MD [facility] [address] documented as of this encounter Visit Diagnoses Not on filedocumented in this encounter Care Teams Supervisor Special Education Relationship Specialty Start Date End Date Belkys Bundy DO [address] [place] [address] PCP - General Family Medicine 03/21/19 documented as of this encounter
--- OUTSIDE RECORDS SUMMARY | 2024-04-21 18:51 | XMS_ITS | Encounter Summary ---
Author Organization [facility] [place] [address] Care Team Providers Care Crop And Soil Technician Name Role Phone Belkys Bundy DO Primary Care Provider +1- [phone] Encounter Details Date Type Department Care Team [...] 4:00 PM EDT [place] [address] Kira Thayer MD [facility] [place] [address] documented as of this encounter Visit Diagnoses Not on filedocumented in this encounter Care Teams Crop And Soil Technician Relationship Specialty Start Date End Date Belkys Bundy DO [address] [place], [place] [address] PCP - General Family Medicine 03/21/19 documented as of this encounter
--- OUTSIDE RECORDS SUMMARY | 2024-04-21 18:51 | XMS_ITS | Encounter Summary ---
[place] [address] Care Team Providers Care International Trade Analyst Name Role Phone Belkys Bundy DO Primary Care Provider +1- [phone] Reason for Visit * Reason Onset Date Comments Lung Transplant Pre-evaluation 11/25/2022 Encounter Details Date Type Department Care Team (Late st Contact Info) Description 11/25/2022 [place] [address] Emily Starr RN Lung Transplant Pre-evaluation Social [...] Pre-transplant referral, signed by Dr. Thayer, to [facility] Transplant Team. Attached to this was the following items: Introduction letter from Dr. Thayer, Referral form, Patient Demographics, Office Visit Notes dated 11/22/2022, 10/18/2022 PFTs dated 10/18/2022, 09/13/2022 Fax submission confirmation time stamped for 11/25/2022 @ 8986. 95 pages with cover sheet. documented in this encounter Plan of Treatment Upcoming Encounters Date Type Department Care Team (Late st Contact Info) Description 08/27/2024 4:00 PM EDT Office [place] [address] Kira Thayer MD [facility] [place] [address] documented as of this encounter Visit Diagnoses Not on filedocumented in this encounter Care Teams International Trade Analyst Relationship Specialty Start Date End Date Belkys Bundy DO [address] [place] [address] PCP - General Family Medicine 03/21/19 documented as of this encounter
--- OUTSIDE RECORDS SUMMARY | 2024-04-21 18:51 | XMS_ITS | Encounter Summary ---
[facility] [place] [address] Care Team Providers Care Administrative Library Assistant Name Role Phone Belkys Bundy DO Primary Care Provider +1- [phone] Reason for Visit * Reason Onset Date Comments Other 09/01/2021 Received ER note s and CXR results from [facility] for dates of service 08/21/2021-08/25/2021. Will send message to Dr. Thayer. Encounter Details Date Type Department Care Team (Late st Contact Info) Description 09/01/2021 [place] [address] Elise Murphy RN Other (Received ER notes and CXR results from [facility] for dates of service 08/21/2021-08/25/2021. Will send [...] 09/01/2021 9:11 AM EDT I have called [facility] medical records to request for pt's ER notes and CXR results and images. MALACHI Staley, RN Department of Pulmonary 5C, [facility] Pager: [phone] documented in this encounter Plan of Treatment Upcoming Encounters Date Type Department Care Team (Late st Contact Info) Description 08/27/2024 4:00 PM EDT [place] [address] Kira Thayer MD [facility] [place] [address] documented as of this encounter Visit Diagnoses Not on filedocumented in this encounter Care Teams Administrative Library Assistant Relationship Specialty Start Date End Date Belkys Bundy DO [address] [place] [address] PCP - General Family Medicine 03/21/19 documented as of this encounter
--- OUTSIDE RECORDS SUMMARY | 2024-04-21 18:51 | XMS_ITS | Encounter Summary ---
Author Organization [facility] [place] [address] Care Team Providers Care Loan Officer Name Role Phone AnaBelkys moise Virginie MYRICK Primary Care Provider +1- [phone] Encounter Details Date Type Department Care Team (Late st Contact Info) Description 11/27/2021 [place] [address] Katie Donato Social History Tobacco Use Types [...] 4:00 PM EDT [place] [address] Kira Thayer MD [facility] [place] [address] documented as of this encounter Visit Diagnoses Not on filedocumented in this encounter Care Teams Loan Officer Relationship Specialty Start Date End Date Belkys Bundy DO [address] [place] [address] PCP - General Family Medicine 03/21/19 documented as of this encounter
--- OUTSIDE RECORDS SUMMARY | 2024-04-21 18:51 | XMS_ITS | Encounter Summary ---
Author Organization [facility] [place] [address] Care Team Providers Care Environmental Sciences Professor Name Role Phone Belkys Bundy Primary Care Provider +1- [phone] Encounter Details Date Type Department Care Team (Late st Contact Info) Description 11/23/2022 Telephone [place] [address] Juanis Osullivan RT Social History Tobacco Use [...] 4:00 PM EDT Office [place] [address] Kira Thayer MD [facility] [place] [address] documented as of this encounter Visit Diagnoses Not on filedocumented in this encounter Care Teams Environmental Sciences Professor Relationship Specialty Start Date End Date Belkys Bundy DO [address] [place], [place] [address] [place] [address] PCP - General Family Medicine 03/21/19 documented as of this encounter
--- OUTSIDE RECORDS SUMMARY | 2024-04-21 18:52 | XMS_ITS | Encounter Summary ---
Author Organization [facility] Address [facility] [place] [address] Care Team Providers Care Diving Board Assembler Name Role Phone Belkys Bundy Primary Care Provider +1- [phone] Encounter Details Date Type Department Care Team (Late st Contact Info) Description 06/03/2021 9:00 AM EST [place] [address] Kira Thayer MD [facility] [place] [address] COPD, very severe; Chronic obstructive pulmonary disease, [...] from the original note were not included. [facility] Section of Pulmonary and Critical Care [...] to Visit Medication Sig Dispense Refill ??? mtdthjetmgy-aopljxruk-obvatfbq (Trelegy Ellipta) 200-62.5-25 mcg Disk with Device [...] 11 ??? fluticasone propionate (FLONASE) 50 mcg/actuation [place], Suspension ??? atorvastatin (Lipitor) 20 mg Tablet [...] this visit (though function had improved in 202 with tobacco cessation.) I think tobacco use [...] any further questions or concerns. MD Omari Houge [facility] [address] Dept: [phone] Loc: [phone] documented in this encounter Plan of Treatment Upcoming Encounters Date Type Department Care Team (Late st Contact Info) Description 08/27/2024 4:00 PM EDT [place] [address] Kira Thayer MD [facility] [place] [address] documented as of this encounter Visit Diagnoses Diagnosis COPD, very severe Chronic airway obstruction, not elsewhere classified Chronic obstructive pulmonary disease, unspecified COPD type Supplemental oxygen dependent Dependence on supplemental oxygen Pulmonary nodule Solitary pulmonary nodule Tobacco use Tobacco use disorder documented in this encounter Care Teams Diving Board Assembler Relationship Specialty Start Date End Date Belkys Bundy DO [address] [place] [address] PCP - General Family Medicine 03/21/19 documented as of this encounter
--- OUTSIDE RECORDS SUMMARY | 2024-04-21 18:52 | XMS_ITS | Encounter Summary ---
Author Organization [facility] [place] [address] Care Team Providers Care Screen Printing Cloth Spreader Name Role Phone Niharika Belkys Virginie MYRICK Primary Care Provider +1- [phone] Encounter Details Date Type Department Care Team (Late st Contact Info) Description 01/30/2021 [place] [address] Juanis Osullivan, RT Social History Tobacco Use [...] 4:00 PM EDT [place] [address] Kira Thayer MD [facility] [place] [address] documented as of this encounter Visit Diagnoses Not on filedocumented in this encounter Care Teams Screen Printing Cloth Spreader Relationship Specialty Start Date End Date Belkys Bundy DO [address] [place] [address] PCP - General Family Medicine 03/21/19 documented as of this encounter
--- OUTSIDE RECORDS SUMMARY | 2024-04-21 18:52 | XMS_ITS | Encounter Summary ---
[place] [address] Care Team Providers Care Law Secretary Name Role Phone Belkys Bundy Primary Care Provider +1- [phone] Encounter Details Date Type Department Care Team (Late st Contact Info) Description 10/01/2020 2:00 PM EDT TH Visit (TeleHealth) [place] [address] Juanis Osullivan, RT COPD, very severe Social [...] oxygen concentrator and portable oxygen concentrator from [facility]. She noted that she is feeling significantly [...] modify activities to conserve energy. Juanis Osullivan, FSR,MULTIMEDIA PROJECT MANAGER documented in this encounter Miscellaneous Notes [...] 4:00 PM EDT [place] [address] Kira Thayer MD [facility] [place] [address] documented as of this encounter Visit Diagnoses Diagnosis COPD, very severe Chronic airway obstruction, not elsewhere classified documented in this encounter Care Teams Law Secretary Relationship Specialty Start Date End Date Belkys Bundy DO [address] [place] [address] PCP - General Family Medicine 03/21/19 documented as of this encounter
--- OUTSIDE RECORDS SUMMARY | 2024-04-21 18:52 | XMS_ITS | Encounter Summary ---
Author Organization [facility] [place] [address] Care Team Providers Care Clamp Truck Driver Name Role Phone Belkys Bundy DO Primary Care Provider +1- [phone] Encounter Details Date Type Department Care Team (Late st Contact Info) Description 09/30/2020 Orders [place] [address] Kira Thayer MD [facility] [place] [address] COPD, very severe Social History Tobacco Use [...] 4:00 PM EDT Office [place] [address] Kira Thayer MD [facility] [place] [address] documented as of this encounter Visit Diagnoses Diagnosis COPD, very severe Chronic airway obstruction, not elsewhere classified documented in this encounter Care Teams Clamp Truck Driver Relationship Specialty Start Date End Date Belkys Bundy DO [address] [place] [address] PCP - General Family Medicine 03/21/19 documented as of this encounter
--- OUTSIDE RECORDS SUMMARY | 2024-04-21 18:52 | XMS_ITS | Encounter Summary ---
[place] [address] Care Team Providers Care Trampoline Team Coach Name Role Phone Belkys Bundy Primary Care Provider +1- [phone] Encounter Details Date Type Department Care Team (Late st Contact Info) Description 12/23/2020 1:00 PM EDT TH Visit (TeleHealth) [place] [address] Juanis Osullivan, RT COPD, very severe Social [...] Pulmonary Rehabilitation Exercise: please see Dary Wheat's BUSINESS BROKER note Juanis Osullivan, REPLANTING MACHINE CREW,RECEIVING DISTRIBUTION STATION OPERATOR documented in this encounter Miscellaneous Notes * Treatment - Therapy - Dary Wheat, BUSINESS BROKER - 12/23/2020 1:00 PM EDT Pulmonary Rehabilitation [...] 4:00 PM EDT Office [place] [address] Kira Thayer MD [facility] [place] [address] documented as of this encounter Visit Diagnoses Diagnosis COPD, very severe Chronic airway obstruction, not elsewhere classified documented in this encounter Care Teams Trampoline Team Coach Relationship Specialty Start Date End Date Belkys Bundy DO [address] [place] [address] PCP - General Family Medicine 03/21/19 documented as of this encounter
--- OUTSIDE RECORDS SUMMARY | 2024-04-21 18:52 | XMS_ITS | Encounter Summary ---
[place] [address] Care Team Providers Care Commercial Decorator Name Role Phone Belkys Bundy Primary Care Provider +1- [phone] Encounter Details Date Type Department Care Team (Late st Contact Info) Description 01/20/2021 1:00 PM EDT TH Visit (TeleHealth) [place] [address] Juanis Osullivan, RT COPD, very severe Social [...] home exercise this past weekend. Juanis Osullivan, NURSES' ASSOCIATION EXECUTIVE DIRECTOR,MICA INSPECTOR documented in this encounter Miscellaneous Notes * Treatment - Therapy - Dary Wheat, DECK MATE - 01/20/2021 1:00 PM EDT Pulmonary Rehabilitation [...] 4:00 PM EDT Office [place] [address] Kira Thayer MD [facility] [place] [address] documented as of this encounter Visit Diagnoses Diagnosis COPD, very severe Chronic airway obstruction, not elsewhere classified documented in this encounter Care Teams Commercial Decorator Relationship Specialty Start Date End Date Belkys Bundy DO [address] [place] [address] PCP - General Family Medicine 03/21/19 documented as of this encounter
--- OUTSIDE RECORDS SUMMARY | 2024-04-21 18:52 | XMS_ITS | Encounter Summary ---
Author Organization [facility] [place] [address] Care Team Providers Care Wreath And Garland Maker Name Role Phone Belkys Bundy Primary Care Provider +1- [phone] Encounter Details Date Type Department Care Team (Late st Contact Info) Description 12/08/2020 9:00 AM EDT Office [place] [address] Juanis Osullivan, RT COPD, very severe Social [...] - Start Incentive spirometry per above. The [facility] monthly pulmonary support group meeting (Tuesday of the month from 4:30-5:30 pm) is available for ongoing free pulmonary education and support. If you have any questions or concerns, please let us know. Thank you. Juanis Osullivan, PHLEBOTOMIST MEDICAL LAB ASSISTANT,CLINICAL NURSING MANAGER [facility] Pulmonary Audiology Doctor documented in this encounter Plan of Treatment Upcoming Encounters Date Type Department Care Team (Late st Contact Info) Description 08/27/2024 4:00 PM EDT Office [place] [address] Kira Thayer MD [facility] [address] [place] [address] documented as of this encounter Visit Diagnoses Diagnosis COPD, very severe Chronic airway obstruction, not elsewhere classified documented in this encounter Care Teams Wreath And Garland Maker Relationship Specialty Start Date End Date Belkys Bundy DO [address] [place] [address] PCP - General Family Medicine 03/21/19 documented as of this encounter
--- OUTSIDE RECORDS SUMMARY | 2024-04-21 18:52 | XMS_ITS | Encounter Summary ---
Author Organization [facility] [place] [address] Care Team Providers Care Publication Director Name Role Phone Belkys Bundy DO Primary Care Provider +1- [phone] Encounter Details Date Type Department Care Team (Late st Contact Info) Description 10/16/2020 Orders [place] [address] Kira Thayer MD [facility] [place] [address] COPD, very severe Social History Tobacco Use [...] PM EDT Office [place] [address] Kira Thayer MD [facility] [place] [address] documented as of this encounter Visit Diagnoses Diagnosis COPD, very severe Chronic airway obstruction, not elsewhere classified documented in this encounter Care Teams Publication Director Relationship Specialty Start Date End Date Belkys Bundy DO [address] [place] [address] PCP - General Family Medicine 03/21/19 documented as of this encounter
--- OUTSIDE RECORDS SUMMARY | 2024-04-21 18:52 | XMS_ITS | Encounter Summary ---
Author Organization [facility] [place] [address] Care Team Providers Care Medical Photographer Name Role Phone Belkys Bundy Primary Care Provider +1- [phone] Encounter Details Date Type Department Care Team (Latest Contact Info) Description 02/18/2021 9:22 AM EST - 02/18/2021 11:59 PM EST Hospital En[place] [address] COPD, very severe Discharge Disposition: Home Social [...] End Date inhalational spacing device (Ricci Aerosol [place] Enhancer) Spacer .MEDSUPPLY 02/01/2020 levothyroxine (Synthroid) 100 [...] 11 07/16/2020 fluticasone propionate (FLONASE) 50 mcg/actuation [place], Suspension 02/01/2020 atorvastatin (Lipitor) 20 mg Tablet [...] EDT Office [place] [address] Kira Thayer MD [facility] [place] [address] Scheduled Orders Name Type Priority Associated Diagnoses [...] / FVC LLN 69 % COMPAS PFT RCO09-42 Actual Pre-BD 0.30 L/s COMPAS PFT NAG58-87 Pre-BD % of Predicted 11 % COMPAS PFT [id number] Predicted 2.78 L/s COMPAS PFT DFB31-24 Pre-BD Z-Score -4.34 COMPAS PFT DLCO Hb [...] classified documented in this encounter Care Teams Medical Photographer Relationship Specialty Start Date End Date Belkys Bundy DO [address] [place] [address] PCP - General Family Medicine 03/21/19 documented as of this encounter
--- OUTSIDE RECORDS SUMMARY | 2024-04-21 18:52 | XMS_ITS | Encounter Summary ---
Author Organization [facility] [place] [address] Care Team Providers Care Warp Tying Machine Knotter Name Role Phone Belkys Bundy DO Primary Care Provider +1- [phone] Encounter Details Date Type Department Care Team (Late st Contact Info) Description 10/17/2020 [place] [address] Millicent Valles Social History Tobacco [...] 4:00 PM EDT Office [place] [address] Kira Thayer MD [facility] [place] [address] documented as of this encounter Visit Diagnoses Not on filedocumented in this encounter Care Teams Warp Tying Machine Knotter Relationship Specialty Start Date End Date Belkys Bundy DO [address] [place] [address] PCP - General Family Medicine 03/21/19 documented as of this encounter
--- OUTSIDE RECORDS SUMMARY | 2024-04-21 18:52 | XMS_ITS | Encounter Summary ---
Author Organization [facility] [place] [address] Care Team Providers Care Telesales Team Leader Name Role Phone Belkys Bundy DO Primary Care Provider +1- [phone] Encounter Details Date Type Department Care Team (Late st Contact Info) Description 10/20/2020 [place] [address] Millicent Valles Social History Tobacco [...] 4:00 PM EDT Office [place] [address] Kira Thayer MD [facility] [place] [address] documented as of this encounter Visit Diagnoses Not on filedocumented in this encounter Care Teams Telesales Team Leader Relationship Specialty Start Date End Date Belkys Bundy DO [address] [place] [address] PCP - General Family Medicine 03/21/19 documented as of this encounter
--- OUTSIDE RECORDS SUMMARY | 2024-04-21 18:52 | XMS_ITS | Encounter Summary ---
Author Organization [facility] [place] [address] Care Team Providers Care Account Manager Trainee Name Role Phone AnaBelkys moise Primary Care Provider +1- [phone] Encounter Details Date Type Department Care Team (Late st Contact Info) Description 11/05/2020 [place] [address] Juanis Osullivan, RT Social History Tobacco Use [...] Plan: -hold pulmonary rehab telehealth till the december -6 minute walk, pulm rehab screening tools reassessment on 12/08/20 at 9 am. documented in this encounter Plan of Treatment Upcoming Encounters Date Type Department Care Team (Late st Contact Info) Description 08/27/2024 4:00 PM EDT Office [place] [address] Kira Thayer MD [facility] [place] [address] documented as of this encounter Visit Diagnoses Not on filedocumented in this encounter Care Teams Account Manager Trainee Relationship Specialty Start Date End Date Belkys Bundy DO [address] [place] [address] PCP - General Family Medicine 03/21/19 documented as of this encounter
--- OUTSIDE RECORDS SUMMARY | 2024-04-21 18:52 | XMS_ITS | Encounter Summary ---
Author Organization [facility] [place] [address] Care Team Providers Care Manager Rail Name Role Phone AnaBelkys moise Primary Care Provider +1- [phone] Encounter Details Date Type Department Care Team (Late st Contact Info) Description 02/03/2021 [place] [address] Juanis Osullivan, RT Social History Tobacco Use [...] and she went to urgent care at [facility] to evaluate her shoulder., No xrays done. [...] 4:00 PM EDT Office [place] [address] Kira Thayer MD [facility] [place] [address] documented as of this encounter Visit Diagnoses Not on filedocumented in this encounter Care Teams Manager Rail Relationship Specialty Start Date End Date Belkys Bundy DO [address] [place] [address] PCP - General Family Medicine 03/21/19 documented as of this encounter
--- OUTSIDE RECORDS SUMMARY | 2024-04-21 18:52 | XMS_ITS | Encounter Summary ---
Author Organization [facility] [place] [address] Care Team Providers Care Professor Of French Name Role Phone Belkys Bundy Primary Care Provider +1- [phone] Encounter Details Date Type Department Care Team (Late st Contact Info) Description 09/30/2020 10:00 AM EDT Office [place] [address] Kira Thayer MD [facility] [place] [address] COPD, very severe; Supplemental oxygen dependent; Tobacco [...] from the original note were not included. [facility] Section of Pulmonary and Critical [...] participating in pulmonary rehab this spring via [email or web address], feels it has been very effective. Past [...] 11 ??? fluticasone propionate (FLONASE) 50 mcg/actuation [place], Suspension ??? nicotine (NICODERM CQ) 21 mg/24 hr Patch 24 hr APPLY ONE PATCH TO THE SKIN EVERY DAY ??? albuteroL 90 mcg/actuation HFA Aerosol Inhaler Inhale 2 puffs into the lungs every 4 hours as needed for Wheezing or Shortness of Breath. Use with spacer 2 Inhaler 5 ??? tvbkitwlzfu-ekxvmuiqc-sdribxyc (Trelegy Ellipta) 200-62.5-25 mcg Disk with Device [...] UPPSET ??? fluticasone propionate (FLONASE) 50 mcg/actuation [place], Suspension by Nasal route. ??? levothyroxine (SYNTHROID) [...] prior EKG records (she thinks done at [facility] within past year); will request again - [...] tobacco cessation counseling. Kira Thayer MD [facility] PULMONOLOGY AT [facility] [address] Dept: [phone] Loc: [phone] documented in this encounter Plan of Treatment Upcoming Encounters Date Type Department Care Team (Late st Contact Info) Description 08/27/2024 4:00 PM EDT Office [place] [address] Kira Thayer MD [facility] DR PULMONARY MEDICINE [place] [id number] documented as of this encounter Visit Diagnoses Diagnosis COPD, very severe Chronic airway obstruction, not elsewhere classified Supplemental oxygen dependent Dependence on supplemental oxygen Tobacco use Tobacco use disorder Environmental allergies Allergic rhinitis, cause unspecified Gastroesophageal reflux disease, unspecified whether esophagitis present documented in this encounter Care Teams Professor Of French Relationship Specialty Start Date End Date Belkys Bundy DO [address] [place] [address] PCP - General Family Medicine 03/21/19 documented as of this encounter
--- OUTSIDE RECORDS SUMMARY | 2024-04-21 18:52 | XMS_ITS | Encounter Summary ---
[place] [address] Care Team Providers Care Clarifier Operator Name Role Phone Belkys Bundy Primary Care Provider +1- [phone] Encounter Details Date Type Department Care Team (Late st Contact Info) Description 10/17/2020 2:00 PM EDT TH Visit (TeleHealth) [place] [address] Juanis Osullivan, RT COPD, very severe Social [...] see Jethro Knapp's PT note Juanis Osullivan, PANEL LAMINATOR,POLYMER MATERIALS CONSULTANT documented in this encounter Miscellaneous Notes * [...] 4:00 PM EDT Office [place] [address] Kira Thayer MD [facility] DR PULMON[place] [address] documented as of this encounter Visit Diagnoses Diagnosis COPD, very severe Chronic airway obstruction, not elsewhere classified documented in this encounter Care Teams Clarifier Operator Relationship Specialty Start Date End Date Belkys Bundy DO [address] [place] [address] PCP - General Family Medicine 03/21/19 documented as of this encounter
--- OUTSIDE RECORDS SUMMARY | 2024-04-21 18:52 | XMS_ITS | Encounter Summary ---
Author Organization [facility] [address] Care Team Providers Care Roll Machine Operator Name Role Phone OliverLizeth mooresea Rachel DO Primary Care Provider +1- [phone] Encounter Details Date Type Department Care Team (Late st Contact Info) Description 05/20/2021 Telephone [place] [address] Millicent Valles Social History Tobacco Use Types [...] 4:00 PM EDT Office [place] [address] Kira Thayer MD [facility] [place] [address] documented as of this encounter Visit Diagnoses Not on filedocumented in this encounter Care Teams Roll Machine Operator Relationship Specialty Start Date End Date Belkys Bundy DO [address] [place] [address] PCP - General Family Medicine 03/21/19 documented as of this encounter
--- OUTSIDE RECORDS SUMMARY | 2024-04-21 18:52 | XMS_ITS | Encounter Summary ---
Author Organization [facility] [place] [address] Care Team Providers Care Weather Anchor Name Role Phone Belkys Bundy Primary Care Provider +1- [phone] Encounter Details Date Type Department Care Team (Latest Contact Info) Description 06/03/2021 8:30 AM EST - 06/03/2021 11:59 PM EST Hospital Encounter [place] [address] COPD, very severe Discharge Disposition: Home Social [...] End Date inhalational spacing device (Ricci Aerosol Refugio Enhancer) Spacer .MEDSUPPLY 02/01/2020 levothyroxine (Synthroid) 100 [...] 11 07/16/2020 fluticasone propionate (FLONASE) 50 mcg/actuation [place], Suspension 02/01/2020 atorvastatin (Lipitor) 20 mg Tablet [...] -vilanter (Trelegy Ellipta) 200-62.5-25 mcg Disk with DeviceIndications:BLOCKERS SKIVER D, very severe Inhale 1 Inhalation into the lungs daily. 28 each 11 06/03/2021 06/28/2022 nicotine (NICODERM CQ) 21 mg/24 [...] Office [place] [address] Kira Thayer MD [facility] [place] [address] documented as of this encounter Procedures Procedure [...] / FVC LLN 69 % COMPAS PFT ZJS75-86 Actual Pre-BD 0.15 L/s COMPAS PFT [id number] Pre-BD % of Predicted 5 % COMPAS PFT [id number] Predicted 2.75 L/s COMPAS PFT [id number] Pre-BD Z-Score -4.92 COMPAS PFT DLCO Hb [...] classified documented in this encounter Care Teams Weather Anchor Relationship Specialty Start Date End Date Belkys Bundy DO [address] [facility] [place] [address] PCP - General Family Medicine 03/21/19 documented as of this encounter
--- OUTSIDE RECORDS SUMMARY | 2024-04-21 18:52 | XMS_ITS | Encounter Summary ---
[place] [address] Care Team Providers Care Production Pattern Maker Name Role Phone Belkys Bundy Primary Care Provider +1- [phone] Reason for Visit * Reason Onset Date Comments Oxygen Dependence 10/02/2020 Certificate of Medical Necessity Encounter Details Date Type Department Care Team (Late st Contact Info) Description 10/02/2020 [place] [address] Emily Starr RN Oxygen Dependence (Certificate of [...] Medical Necessity, signed by Dr. Thayer, to [facility]. This covered the following items: [...] 4:00 PM EDT [place] [address] Kira Thayer MD [facility] [address] [place] [address] documented as of this encounter Visit Diagnoses Not on filedocumented in this encounter Care Teams Production Pattern Maker Relationship Specialty Start Date End Date Belkys Bundy DO [address] [place] [address] PCP - General Family Medicine 03/21/19 documented as of this encounter
--- OUTSIDE RECORDS SUMMARY | 2024-04-21 18:52 | XMS_ITS | Encounter Summary ---
Author Organization [facility] [place] [address] Care Team Providers Care Barrelhead Inspector Name Role Phone Belkys Bundy Primary Care Provider +1- [phone] Encounter Details Date Type Department Care Team (Late st Contact Info) Description 01/16/2021 Telephone Pulmonology at [facility] [place] [address] Juanis Osullivan RT Social History Tobacco Use [...] 4:00 PM EDT [place] [address] Kira Thayer MD [facility] [place] [address] documented as of this encounter Visit Diagnoses Not on filedocumented in this encounter Care Teams Barrelhead Inspector Relationship Specialty Start Date End Date Belkys Bundy DO [address] [place] [address] PCP - General Family Medicine 03/21/19 documented as of this encounter
--- OUTSIDE RECORDS SUMMARY | 2024-04-21 18:52 | XMS_ITS | Encounter Summary ---
Author Organization [facility] [place] [address] Care Team Providers Care Wax Cutter Name Role Phone AnaBelkys moise Primary Care Provider +1- [phone] Encounter Details Date Type Department Care Team (Late st Contact Info) Description 01/27/2021 [place] [address] Juanis Osullvian, RT Social History Tobacco Use Types Packs/Day [...] injury: Jessie fell out of bed last Wed, 01/21. She was sitting vietnamese style on the bed and reaching out [...] EDT Office [place] [address] Kira Thayer MD [facility] [place] [address] documented as of this encounter Visit Diagnoses Not on filedocumented in this encounter Care Teams Wax Cutter Relationship Specialty Start Date End Date Belkys Bundy DO [address] [place] [address] PCP - General Family Medicine 03/21/19 documented as of this encounter
--- OUTSIDE RECORDS SUMMARY | 2024-04-21 18:52 | XMS_ITS | Encounter Summary ---
Author Organization [facility] [place] [address] Care Team Providers Care Assistant Customer Service Manager Name Role Phone Belkys Bundy DO Primary Care Provider +1- [phone] Encounter Details Date Type Department Care Team (Late st Contact Info) Description 08/29/2020 Telephone [place] [address] Monisha Khalil Social History Tobacco Use Types [...] 4:00 PM EDT Office [place] [address] Kira Thayer MD [facility] [place] [address] documented as of this encounter Visit Diagnoses Not on filedocumented in this encounter Care Teams Assistant Customer Service Manager Relationship Specialty Start Date End Date Belkys Bundy DO [address] [place] [address] PCP - General Family Medicine 03/21/19 documented as of this encounter
--- OUTSIDE RECORDS SUMMARY | 2024-04-21 18:52 | XMS_ITS | Encounter Summary ---
[place] [address] Care Team Providers Care Beeswax Bleacher Name Role Phone Belkys Bunyd Primary Care Provider +1- [phone] Encounter Details Date Type Department Care Team (Late st Contact Info) Description 01/06/2021 1:00 PM EDT TH Visit (TeleHealth) [place] [address] Juanis Osullivan, RT COPD, very severe Social [...] set and 10- 2nd set. Juanis Osullivan, SOCIAL SCIENCE INSTRUCTOR,ADMINISTRATIVE SUPPORT SPECIALIST documented in this encounter Miscellaneous Notes * Treatment - Therapy - Dary Wheat, PEDIATRIC CLINICAL DIETICIAN - 01/06/2021 1:00 PM EDT Pulmonary Rehabilitation [...] 4:00 PM EDT [place] [address] Kira Thayer MD [facility] [place] [address] documented as of this encounter Visit Diagnoses Diagnosis COPD, very severe Chronic airway obstruction, not elsewhere classified documented in this encounter Care Teams Beeswax Bleacher Relationship Specialty Start Date End Date Belkys Bundy DO [address] [place] [address] PCP - General Family Medicine 03/21/19 documented as of this encounter
--- OUTSIDE RECORDS SUMMARY | 2024-04-21 18:52 | XMS_ITS | Encounter Summary ---
[place] [address] Care Team Providers Care English Composition Teacher Name Role Phone Belkys Bundy Primary Care Provider +1- [phone] Encounter Details Date Type Department Care Team (Late st Contact Info) Description 12/26/2020 2:00 PM EDT TH Visit (TeleHealth) [place] [address] Juanis Osullivan, RT COPD, very severe Social [...] see Dary Wheat's PT note Juanis Osullivan, CANDY STARCH MOLD PRINTER,AIRPORT UTILITY WORKER documented in this encounter Miscellaneous Notes * Treatment - Therapy - Dary Wheat, AUTOMATED CUTTING MACHINE OPERATOR - 12/26/2020 2:00 PM EDT Pulmonary Rehabilitation [...] 4:00 PM EDT [place] [address] Kira Thayer MD [facility] [place] [address] documented as of this encounter Visit Diagnoses Diagnosis COPD, very severe Chronic airway obstruction, not elsewhere classified documented in this encounter Care Teams English Composition Teacher Relationship Specialty Start Date End Date Belkys Bundy DO [address] [place] [address] PCP - General Family Medicine 03/21/19 documented as of this encounter
--- OUTSIDE RECORDS SUMMARY | 2024-04-21 18:52 | XMS_ITS | Encounter Summary ---
Author Organization [facility] [place] [address] Care Team Providers Care Channel Installer Name Role Phone Belkys Bundy DO Primary Care Provider +1- [phone] Encounter Details Date Type Department Care Team (Late st Contact Info) Description 01/29/2021 Tele[place] [address] Millicent Valles Social History Tobacco [...] EDT Office [place] [address] Kira Thayer MD [facility] [address] documented as of this encounter Visit Diagnoses Not on filedocumented in this encounter Care Teams Channel Installer Relationship Specialty Start Date End Date Belkys Bundy DO [address] [place] [address] PCP - General Family Medicine 03/21/19 documented as of this encounter
--- OUTSIDE RECORDS SUMMARY | 2024-04-21 18:52 | XMS_ITS | Encounter Summary ---
Author Organization [facility] [place] [address] Care Team Providers Care Banding Machine Operator Name Role Phone Belkys Bundy Primary Care Provider +1- [phone] Encounter Details Date Type Department Care Team (Late st Contact Info) Description 10/03/2020 2:00 PM EDT TH Visit (TeleHealth) [place] [address] Juanis Osullivan, RT COPD, very severe Social [...] see Jethro Knapp's PT note Juanis Osullivan, ACCOUNT ADJUSTER,MAINTENANCE AND OPERATIONS SUPERVISOR documented in this encounter Miscellaneous Notes [...] PM EDT Office [place] [address] Kira Thayer MD [facility] [place] [address] documented as of this encounter Visit Diagnoses Diagnosis COPD, very severe Chronic airway obstruction, not elsewhere classified documented in this encounter Care Teams Banding Machine Operator Relationship Specialty Start Date End Date Belkys Bundy DO [address] [place] [address] PCP - General Family Medicine 03/21/19 documented as of this encounter
--- OUTSIDE RECORDS SUMMARY | 2024-04-21 18:52 | XMS_ITS | Encounter Summary ---
[place] [address] Care Team Providers Care Check Clerk Name Role Phone Belkys Bundy Primary Care Provider +1- [phone] Encounter Details Date Type Department Care Team (Late st Contact Info) Description 09/17/2020 2:00 PM EDT TH Visit (TeleHealth) [place] [address] Juanis Osullivan, RT COPD, very severe Social [...] Progress Notes * Juanis Osullivan, RT - 09/17/2020 2:00 PM EDT Pulmonary [...] Jessie Alba participated in discussion. Juanis Osullivan, DRIVER SALES,IDENTIFICATION AND RECORDS COMMANDER documented in this encounter Miscellaneous Notes * [...] 4:00 PM EDT Office [place] [address] Kira Thayer MD [facility] [place] [address] documented as of this encounter Visit Diagnoses Diagnosis COPD, very severe Chronic airway obstruction, not elsewhere classified documented in this encounter Care Teams Check Clerk Relationship Specialty Start Date End Date Belkys Bundy DO [address] [place] [address] PCP - General Family Medicine 03/21/19 documented as of this encounter
--- OUTSIDE RECORDS SUMMARY | 2024-04-21 18:52 | XMS_ITS | Encounter Summary ---
Author Organization [facility] [place] [address] Care Team Providers Care Inspector Cold Working Name Role Phone Belkys Bundy Primary Care Provider +1- [phone] Encounter Details Date Type Department Care Team (Late st Contact Info) Description 09/30/2020 9:30 AM EDT [place] [address] Juanis Osullivan, RT COPD, very severe Social [...] Progress Notes * Juanis Osullivan RT - 09/30/2020 9:30 AM EDT Home [...] 4:00 PM EDT [place] [address] Kira Thayer MD [facility] [place] [address] documented as of this encounter Visit Diagnoses Diagnosis COPD, very severe Chronic airway obstruction, not elsewhere classified documented in this encounter Care Teams Inspector Cold Working Relationship Specialty Start Date End Date Belkys Bundy DO [address] [place] [address] PCP - General Family Medicine 03/21/19 documented as of this encounter
--- OUTSIDE RECORDS SUMMARY | 2024-04-21 18:52 | XMS_ITS | Encounter Summary ---
Author Organization [facility] Address [facility] [place] [address] Care Team Providers Care Laborer Starch Factory Name Role Phone Belkys Bundy DO Primary Care Provider +1- [phone] Encounter Details Date Type Department Care Team [...] PM EDT Office [place] [address] Kira Thayer MD [facility] [place] [address] documented as of this encounter Visit Diagnoses Not on filedocumented in this encounter Care Teams Laborer Starch Factory Relationship Specialty Start Date End Date Belkys Bundy DO [address] [place] [address] PCP - General Family Medicine 03/21/19 documented as of this encounter
--- OUTSIDE RECORDS SUMMARY | 2024-04-21 18:52 | XMS_ITS | Encounter Summary ---
Author Organization [facility] [place] [address] Care Team Providers Care Ingot Stripper Name Role Phone Belkys Bundy DO Primary Care Provider +1- [phone] Encounter Details Date Type Department Care Team (Late st Contact Info) Description 12/24/2020 Telephone [place] [address] Millicent Valles Social History Tobacco [...] 4:00 PM EDT Office [place] [address] Kira Thayer MD [facility] [place] [address] documented as of this encounter Visit Diagnoses Not on filedocumented in this encounter Care Teams Ingot Stripper Relationship Specialty Start Date End Date Belkys Bundy DO [address] [place] [address] PCP - General Family Medicine 03/21/19 documented as of this encounter
--- OUTSIDE RECORDS SUMMARY | 2024-04-21 18:52 | XMS_ITS | Encounter Summary ---
[place] [address] Care Team Providers Care Electronic Communications Technician Name Role Phone Belkys Bundy Primary Care Provider +1- [phone] Reason for Referral * Diagnostic Test (Routine) - Closed Specialty Diagnoses / Procedures Referred By Contac t Referred To Contact Radiology Diagnoses Pulmonary nodule Procedures CT Chest wo Contrast (Generic) Kira Thayer MD [facility] [address] [facility] [place] [address] Referral ID Status Reason Start Date Expiration Date V isits Requested Visits Authorized [id number] Closed Specialty Service Requested 03/02/2021 08/30/2022 1 1 Reason for Visit * Diagnostic Test (Routine) - Closed Specialty Diagnoses / Procedures Referred By Contac t Referred To Contact Radiology Diagnoses Pulmonary nodule Procedures CT Chest wo Contrast (Generic) Kira Thayer MD [facility] [place] [address] [facility] [place] [address] Referral ID Status Reason Start Date Expiration Date V isits Requested Visits Authorized [id number] Closed Specialty Service Requested 03/02/2021 08/30/2022 1 1 Encounter Details Date Type Department Care Team (Latest Contact Info) Description 06/03/2021 7:29 AM EST - 06/03/2021 8:29 AM EST Hospital Encounter CT Scan at [facility] [place] [address] Kira Thayer MD [facility] [place] [address] Pulmonary nodule Discharge Disposition: Home Social History [...] End Date inhalational spacing device (Ricci Aerosol [place] Enhancer) Spacer .MEDSUPPLY 02/01/2020 levothyroxine (Synthroid) 100 [...] 11 07/16/2020 fluticasone propionate (FLONASE) 50 mcg/actuation [place], Suspension 02/01/2020 atorvastatin (Lipitor) 20 mg Tablet [...] 4:00 PM EDT Office [place] [address] Kira Thayer MD [facility] [place] [address] documented as of this encounter Procedures Procedure [...] have questions please contact the health care transition manager that requested your imaging first. ? Electronically signed by: Cori Schmidt MD, [facility] ([phone]), at 06/03/2021 9:35 AM Narrative 06/03/2021 9:35 [...] thoracic aorta stable at 3 cm. No [place] coronary artery calcification. Other mediastinal structures: No [...] ascendingthoracic aorta stable at 3 cm. No [place] coronary artery calcification. Other mediastinal structures: No [...] who have questions please contactthe health care transition manager that requested your imaging first. Electronically signed by: Cori Schmidt MD, [facility]([phone]), at 06/03/2021 9:35 AM Kira Thayer MD IMG CT ORDERABLES documented in this encounter Visit Diagnoses Diagnosis Pulmonary nodule Solitary pulmonary nodule documented in this encounter Care Teams Electronic Communications Technician Relationship Specialty Start Date End Date Belkys Bundy DO [address] [place] [address] PCP - General Family Medicine 03/21/19 documented as of this encounter
--- OUTSIDE RECORDS SUMMARY | 2024-04-21 18:52 | XMS_ITS | Encounter Summary ---
Author Organization [facility] [place] [address] Care Team Providers Care Commercial Real Estate Agent Name Role Phone Belkys Bundy DO Primary Care Provider +1- [phone] Reason for Visit * Reason Onset Date Comments Medication Refill 04/17/2021 Encounter Details Date Type Department Care Team (Late st Contact Info) Description 04/17/2021 Refill [place] [address] Emily Starr RN COPD, very severe Social [...] 4:00 PM EDT Office [place] [address] Kira Thayer MD [facility] [place] [address] documented as of this encounter Visit Diagnoses Diagnosis COPD, very severe Chronic airway obstruction, not elsewhere classified documented in this encounter Care Teams Commercial Real Estate Agent Relationship Specialty Start Date End Date Belkys Bundy DO [address] [place] [address] PCP - General Family Medicine 03/21/19 documented as of this encounter
--- OUTSIDE RECORDS SUMMARY | 2024-04-21 18:52 | XMS_ITS | Encounter Summary ---
[place] [address] Care Team Providers Care Central Supply Clerk Name Role Phone Belkys Bundy Primary Care Provider +1- [phone] Encounter Details Date Type Department Care Team (Late st Contact Info) Description 12/30/2020 1:00 PM EDT TH Visit (TeleHealth) [place] [address] Juanis Osullivan, RT COPD, very severe Social [...] had other commitments this afternoon. Juanis Osullivan, NUCLEAR PLANT OPERATOR,PROCESS EXCELLENCE MANAGER documented in this encounter Miscellaneous Notes * Treatment - Therapy - Dary Wheat, LIGHT RAIL VEHICLE OPERATOR - 12/30/2020 1:00 PM EDT Pulmonary Rehabilitation [...] PM EDT Office [place] [address] Kira Thayer MD [facility] [place] [address] documented as of this encounter Visit Diagnoses Diagnosis COPD, very severe Chronic airway obstruction, not elsewhere classified documented in this encounter Care Teams Central Supply Clerk Relationship Specialty Start Date End Date Belkys Bundy DO [address] [place] [address] PCP - General Family Medicine 03/21/19 documented as of this encounter
--- OUTSIDE RECORDS SUMMARY | 2024-04-21 18:52 | XMS_ITS | Encounter Summary ---
Author Organization [facility] [place] [address] Care Team Providers Care Java Flex Developer Name Role Phone Belkys Bundy Primary Care Provider +1- [phone] Encounter Details Date Type Department Care Team (Late st Contact Info) Description 03/17/2021 Telephone Pulmonology at [facility] [place] [address] Juanis Osullivan, RT Social History Tobacco Use [...] do this. Plan: Provide update to Dr. Tahyer regarding above psychosocial and smoking update on Zoe. Zoe will call her PCP to discuss potential medication options for stress/anxiety management. documented in this encounter Plan of Treatment Upcoming Encounters Date Type Department Care Team (Late st Contact Info) Description 08/27/2024 4:00 PM EDT Office [place] [address] Kira Thayer MD [facility] [address] [place] [address] documented as of this encounter Visit Diagnoses Not on filedocumented in this encounter Care Teams Java Flex Developer Relationship Specialty Start Date End Date Belkys Bundy DO [address] [place] [address] PCP - General Family Medicine 03/21/19 documented as of this encounter
--- OUTSIDE RECORDS SUMMARY | 2024-04-21 18:52 | XMS_ITS | Encounter Summary ---
[place] [address] Care Team Providers Care Ice Cream Freezer Helper Name Role Phone Belkys Bundy DO Primary Care Provider +1- [phone] Reason for Visit * Reason Onset Date Comments Other 06/24/2021 Medication recon cilliation Encounter Details Date Type Department Care Team (Late st Contact Info) Description 06/24/2021 [place] [phone] Emily Starr RN Other (Medication reconcilliation) Social [...] list from office of Dr. Bundy of [facility] Internal Medicine. Added new medications and doses to list. documented in this encounter Plan of Treatment Upcoming Encounters Date Type Department Care Team (Late st Contact Info) Description 08/27/2024 4:00 PM EDT Office [place] [address] Kira Thayer MD [facility] [place] [address] documented as of this encounter Visit Diagnoses Not on filedocumented in this encounter Care Teams Ice Cream Freezer Helper Relationship Specialty Start Date End Date Belkys Bundy DO [address] [place] [address] PCP - General Family Medicine 03/21/19 documented as of this encounter
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
--- OUTSIDE RECORDS SUMMARY | 2024-04-21 18:52 | XMS_ITS | Encounter Summary ---
[place] [address] Care Team Providers Care Staple Shear Operator Name Role Phone Belkys Bundy DO Primary Care Provider +1- [phone] Reason for Visit * Reason Onset Date Comments Ekg 10/15/2020 order requsition Encounter Details Date Type Department Care Team (Late st Contact Info) Description 10/15/2020 Tele[place] [address] Emily Starr RN Ekg (order requsition) Social [...] submission confirmation time stamped for 10/15/2020 @ 9152. 4 pages with cover sheet. documented in this encounter Plan of Treatment Upcoming Encounters Date Type Department Care Team (Late st Contact Info) Description 08/27/2024 4:00 PM EDT Office [place] [address] Kira Thayer MD [facility] [place] [address] documented as of this encounter Visit Diagnoses Not on filedocumented in this encounter Care Teams Staple Shear Operator Relationship Specialty Start Date End Date Belkys Bundy DO [address] [place] [address] PCP - General Family Medicine 03/21/19 documented as of this encounter
--- OUTSIDE RECORDS SUMMARY | 2024-04-21 18:52 | XMS_ITS | Encounter Summary ---
Author Organization [facility] Address [facility] [place] [address] Care Team Providers Care Operations Asst Name Role Phone Belkys Bundy DO Primary Care Provider +1- [phone] Reason for Visit * Reason Comments Medication Refill Encounter Details Date Type Department Care Team (Late st Contact Info) Description 12/19/2020 [place] [address] Kervin Steiner Jr., MD [facility] [place] [address] Chronic obstructive pulmonary disease, unspecified COPD type [...] 4:00 PM EDT Office [place] [address] Kira Thayer MD [facility] [place] [address] documented as of this encounter Visit Diagnoses Diagnosis Chronic obstructive pulmonary disease, unspecified COPD type documented in this encounter Care Teams Operations Asst Relationship Specialty Start Date End Date Belkys Bundy DO [address] [place] [address] PCP - General Family Medicine 03/21/19 documented as of this encounter
--- OUTSIDE RECORDS SUMMARY | 2024-04-21 18:52 | XMS_ITS | Encounter Summary ---
Author Organization [facility] [place] [address] Care Team Providers Care Commercial Lending Relationship Manager Name Role Phone Belkys Bundy DO Primary Care Provider +1- [phone] Encounter Details Date Type Department Care Team (Late st Contact Info) Description 10/22/2020 [place] [address] Millicent Valles Social History Tobacco [...] 4:00 PM EDT [place] [address] Kira Thayer MD [facility] [place] [address] documented as of this encounter Visit Diagnoses Not on filedocumented in this encounter Care Teams Commercial Lending Relationship Manager Relationship Specialty Start Date End Date Belkys Bundy DO [address] [place] [address] PCP - General Family Medicine 03/21/19 documented as of this encounter
--- OUTSIDE RECORDS SUMMARY | 2024-04-21 18:52 | XMS_ITS | Encounter Summary ---
Author Organization [facility] [place] [address] Care Team Providers Care Setter Helper Name Role Phone Belkys Bundy Primary Care Provider +1- [phone] Encounter Details Date Type Department Care Team (Late st Contact Info) Description 08/29/2020 Telephone [place] [address] Sindy Brewer, RT Social History Tobacco Use [...] I encouraged Zoe to call the on-call Cook Short Order if she continues to have difficulty over the weekend. RT Macario documented in this encounter Plan of Treatment Upcoming Encounters Date Type Department Care Team (Late st Contact Info) Description 08/27/2024 4:00 PM EDT Office Visit [place] [address] Kira Thayer MD [facility] [place] [address] documented as of this encounter Visit Diagnoses Not on filedocumented in this encounter Care Teams Setter Helper Relationship Specialty Start Date End Date Belkys Bundy DO [address] [place] [address] PCP - General Family Medicine 03/21/19 documented as of this encounter
--- OUTSIDE RECORDS SUMMARY | 2024-04-21 18:52 | XMS_ITS | Encounter Summary ---
[place] [address] Care Team Providers Care Caul Fat Puller Name Role Phone Belkys Bundy DO Primary Care Provider +1- [phone] Reason for Visit * Reason Onset Date Comments Ekg 11/03/2020 Availability/Kelli eduling Encounter Details Date Type Department Care Team (Late st Contact Info) Description 11/03/2020 Telephone [place] [phone] Emily Starr RN Ekg (Availability/Schedulin g) Social [...] EDT Per Dr. Thayer's request, RN called [facility] Internal Medicine, office of Dr. Belkys Bundy DO (PCP), to see if patient could be scheduled for EKG. Call directed to voicemail, and RN LMOM requestingconfirmation of if this was possible. Requested call back. documented in this encounter Plan of Treatment Upcoming Encounters Date Type Department Care Team (Late st Contact Info) Description 08/27/2024 4:00 PM EDT Office [place] [address] Kira Thayer MD [facility] [place] [address] documented as of this encounter Visit Diagnoses Not on filedocumented in this encounter Care Teams Caul Fat Puller Relationship Specialty Start Date End Date Belkys Bundy DO [address] [place] [address] PCP - General Family Medicine 03/21/19 documented as of this encounter
--- OUTSIDE RECORDS SUMMARY | 2024-04-21 18:52 | XMS_ITS | Encounter Summary ---
Author [place] [address] Care Team Providers Care Barrel Header Name Role Phone Belkys Bundy Primary Care Provider +1- [phone] Encounter Details Date Type Department Care Team (Late st Contact Info) Description 10/15/2020 2:00 PM EDT TH Visit (TeleHealth) [place] [address] Juanis Osullivan, RT COPD, very severe Social [...] Lung Disorders- part 1 Presenter: Juanis Osullivan RRT,ELECTRICAL EQUIPMENT ASSEMBLER Jessie Sanchez participated in discussion Regarding normal lungs and changes with asthma and COPD. Juanis Osullivan RRT,ELECTRICAL EQUIPMENT ASSEMBLER documented in this encounter Miscellaneous Notes * [...] 4:00 PM EDT Office [place] [address] Kira Thayer MD [facility] [address] [place] [address] documented as of this encounter Visit Diagnoses Diagnosis COPD, very severe Chronic airway obstruction, not elsewhere classified documented in this encounter Care Teams Barrel Header Relationship Specialty Start Date End Date Belkys Bundy DO [address] [place] [address] PCP - General Family Medicine 03/21/19 documented as of this encounter
--- OUTSIDE RECORDS SUMMARY | 2024-04-21 18:52 | XMS_ITS | Encounter Summary ---
Author Organization [facility] [place] [address] Care Team Providers Care Human Resources Officer Name Role Phone Belkys Bundy Primary Care Provider +1- [phone] Encounter Details Date Type Department Care Team (Late st Contact Info) Description 09/30/2020 Telephone [place] [address] Juanis Osullivan RT Social History Tobacco Use [...] PM EDT Office [place] [address] Kira Thayer MD [facility] [address] [place] [address] documented as of this encounter Visit Diagnoses Not on filedocumented in this encounter Care Teams Human Resources Officer Relationship Specialty Start Date End Date Belkys Bundy DO [address] [place] [address] [place] [address] PCP - General Family Medicine 03/21/19 documented as of this encounter
--- OUTSIDE RECORDS SUMMARY | 2024-04-21 18:52 | XMS_ITS | Encounter Summary ---
Author Organization [facility] Address [facility] [place] [address] Care Team Providers Care Linoleum Tile Layer Name Role Phone Belkys Bundy Primary Care Provider +1- [phone] Encounter Details Date Type Department Care Team (Late st Contact Info) Description 01/09/2021 [place] [address] Kira Thayer MD [facility] [place] [address] Social History Tobacco Use Types Packs/Day Years [...] 4:00 PM EDT [place] [address] Kira Thayer MD [facility] [place] [address] documented as of this encounter Visit Diagnoses Not on filedocumented in this encounter Care Teams Linoleum Tile Layer Relationship Specialty Start Date End Date Belkys Bundy DO [address] [place] [address] PCP - General Family Medicine 03/21/19 documented as of this encounter
--- OUTSIDE RECORDS SUMMARY | 2024-04-21 18:52 | XMS_ITS | Encounter Summary ---
Author Organization [facility] [place] [address] Care Team Providers Care Technical Engineer Name Role Phone Belkys Bundy DO Primary Care Provider +1- [phone] Reason for Visit * Reason Onset Date Comments Medication Refill 10/10/2020 Encounter Details Date Type Department Care Team (Late st Contact Info) Description 10/10/2020 Ref[place] [address] Emily Starr RN COPD, very severe Social [...] 4:00 PM EDT Office [place] [address] Kira Thayer MD [facility] [place] [address] documented as of this encounter Visit Diagnoses Diagnosis COPD, very severe Chronic airway obstruction, not elsewhere classified documented in this encounter Care Teams Technical Engineer Relationship Specialty Start Date End Date Belkys Bundy DO [address] [place] [address] PCP - General Family Medicine 03/21/19 documented as of this encounter
--- OUTSIDE RECORDS SUMMARY | 2024-04-21 18:52 | XMS_ITS | Encounter Summary ---
Author Organization [facility] [place] [address] Care Team Providers Care Small Engine Specialist Name Role Phone Belkys Bundy Primary Care Provider +1- [phone] Encounter Details Date Type Department Care Team (Latest Contact Info) Description 12/01/2020 1:00 PM EDT TH Visit (TeleHealth) [place] [address] Kira Thayer MD [facility] [place] [address] COPD, very severe; Supplemental oxygen dependent; Tobacco [...] from the original note were not included. [facility] Section of Pulmonary and Critical Care Medicine Outpatient Consultation Date of Encounter: 12/01/2020 TELEHEALTH VISIT Patient identity was confirmed at beginning of this telehealth visit. Patient is aware that this telehealth visit replaces an in-office clinical evaluation, is a billable encounter and agrees to continue. The patient is in [place]. Reason for Evaluation: Ms. Jessie Sanchez returns [...] 11 ??? fluticasone propionate (FLONASE) 50 mcg/actuation [place], Suspension ??? nicotine (NICODERM CQ) 21 mg/24 [...] Use with spacer 2 Inhaler 5 ??? zfgbfqipmlh-nqrwzadtr-rpjlstvk (Trelegy Ellipta) 200-62.5-25 mcg Disk with Device [...] transplant evaluation at a transplant center in [place]. She feels she would be interested in [...] visit - referral to lung transplant center ([facility]) in process - repeat yanet/DLCO with next [...] on day of visit. Kira Thayer MD [facility] PULMONOLOGY AT [facility] [address] Dept: [phone] Loc: [phone] documented in this encounter Plan of Treatment Upcoming Encounters Date Type Department Care Team (Late st Contact Info) Description 08/27/2024 4:00 PM EDT Office Visit [place] [address] Kira Thayer MD [facility] [place] [address] Scheduled Orders Name Type Priority Associated Diagnoses Orde r Schedule Pulmonary Function Testing PFT Routine COPD, very severe Expected: 03/03/2021, Expires: 09/02/2021 documented as of this encounter Visit Diagnoses Diagnosis COPD, very severe Chronic airway obstruction, not elsewhere classified Supplemental oxygen dependent Dependence on supplemental oxygen Tobacco use Tobacco use disorder Environmental allergies Allergic rhinitis, cause unspecified documented in this encounter Care Teams Small Engine Specialist Relationship Specialty Start Date End Date Belkys Bundy DO [address] [place] [address] PCP - General Family Medicine 03/21/19 documented as of this encounter
--- OUTSIDE RECORDS SUMMARY | 2024-04-21 18:52 | XMS_ITS | Encounter Summary ---
[place] [address] Care Team Providers Care Bolting Machine Operator Name Role Phone Belkys Bundy Primary Care Provider +1- [phone] Reason for Referral * Diagnostic Test (Routine) - Closed Specialty Diagnoses / Procedures Referred By Rossy levine Referred To Contact Radiology Diagnoses Pulmonary nodule Procedures CT Chest wo Contrast (Generic) Kira Thayer MD [facility] [place] [address] [facility] [place] [address] Referral ID Status Reason Start Date Expiration Date V isits Requested Visits Authorized [id number] Closed Specialty Service Requested 03/02/2021 08/30/2022 1 1 Encounter Details Date Type Department Care Team (Late st Contact Info) Description 02/18/2021 10:30 AM EST Office [place] [address] Kira Thayer MD [facility] [place] [address] COPD, very severe; Supplemental oxygen [...] from the original note were not included. [facility] Section of Pulmonary and [...] 11 ??? fluticasone propionate (FLONASE) 50 mcg/actuation [place], Suspension ??? ondansetron (Zofran) 4 mg Tablet TAKE 1 TABLET BY MOUTH EVERY 8 HOURS IF NEEDED FOR NAUSEA AND VOMITING ??? atorvastatin (Lipitor) 20 mg Tablet ??? cyclobenzaprine (Flexeril) 10 mg Tablet Take 10 mg by mouth as needed. ??? dicyclomine (BENTYL) 20 mg Tablet TAKE 1 TABLET BY MOUTH TWICE A DAY IF NEEDED FOR STOMACH UPPSET ??? vumiryycqet-ouglyndsa-gkvfbskq (Trelegy Ellipta) 200-62.5-25 mcg Disk with Device [...] lung transplant evaluationat a transplant center in [place]. She feels she would be interested in [...] ordered - referring to lung transplant center ([facility]) - repeat yanet/DLCO with next visit Follow-up with in-office visit in 3 months. Thank you for involving me in Ms. Sanchez's care. Please feel free to contact me with any further questions or concerns. MD Omari Hogue [facility] PULMONOLOGY AT [facility] [address] Dept: [phone] Loc: [phone] documented in this encounter Plan of Treatment Upcoming Encounters Date Type Department Care Team (Late st Contact Info) Description 08/27/2024 4:00 PM EDT Office [place] [address] Kira Thayer MD [facility] [place] [address] documented as of this encounter Procedures Procedure [...] / FVC LLN 69 % COMPAS PFT GYA89-53 Actual Pre-BD 0.15 L/s COMPAS PFT XAG02-23 Pre-BD % of Predicted 5 % COMPAS PFT PQV86-18 Predicted 2.75 L/s COMPAS PFT YPX33-12 Pre-BD Z-Score -4.92 COMPAS PFT DLCO Hb [...] who have questions please contact the health rn primary care that requested your imaging first. ? Electronically signed by: Cori Schmidt MD, [facility] ([phone]), at 06/03/2021 9:35 AM Narrative 06/03/2021 9:35 [...] thoracic aorta stable at 3 cm. No yavapai-apache coronary artery calcification. Other mediastinal structures: No [...] ascendingthoracic aorta stable at 3 cm. No [place]avapai-apache coronary artery calcification. Other mediastinal structures: No [...] patients who have questions please contactthe health rn primary care that requested your imaging first. Kira Thayer MD IMG CT ORDERABLES * (ABNORMAL) Blood Gas Arterial (02/18/2021 11:45 AM EST) pH, Arterial 7.42 7.35 - 7.45 [facility] PCO2, Arterial 42 35 - 45 mmHg [facility] PO2, Arterial 75(L) 85 - 104 mmHg [facility] Bicarbonate, Arterial 26.6(H) 20.0 - 26.0 mmol/L [facility] Base Excess, Arterial 2.1 -3.0 - 3.0 mmol/L [facility] Hgb Blood Gas 14.6 11.7 - 15.5 g/dL [facility] Comment: Interpret with caution, 1 ml syringe may give rise to occasional discrepant Hgb results. Oxyhemoglobin, Arterial 94.1 94.0 - 97.0 % [facility] Carboxyhemoglob in, Arterial 1.4 % [facility] Comment: Nonsmokers: ??0.5-1.5% COHB Smokers: ??Variable, but usually less than 10% Toxic: 20 - 30% COHB Lethal: ??Greater than 60% COHB Methemoglobin, Arterial 0.3 <=1.5 % [facility] Na Whole Blood 140 135 - 145 mmol/L [facility] K Whole Blood 4.0 3.5 - 5.0 mmol/L [facility] Comment: Please note: ??Patients with WBC >100,000 may have falsely elevated Potassium levels. ??Contact the Clinical Chemistry Laboratory if there are any questions. ICa Whole Blood 1.20 1.15 - 1.33 mmol/L [facility] Comment: Note: ??Total bilirubin higher than 20 mg/dL may lead to falsely low ionized calcium. CL Whole Blood 105 98 - 107 mmol/L [facility] Gluc Whole Bld 76 65 - 199 mg/dL [facility] Comment:Diabetes: >=200 mg/d L plus symptoms. Lactate WB 0.9 0.5 - 2.2 mmol/L [facility] FIO2 Art 21 % [facility] PF Ratio Art 357 [facility] Blood Arterial Draw / Unknown 02/18/2021 11:45 AM EST 02/18/2021 11:52 AM EST Narrative Resulting Agency Comment Spec In Lab Kira Thayer MD CHEMISTRY ORDERABLES [facility] [place] [address] documented in this encounter Visit Diagnoses Diagnosis COPD, very severe Chronic airway obstruction, not elsewhere classified Supplemental oxygen dependent Dependence on supplemental oxygen Environmental allergies Allergic rhinitis, cause unspecified Pulmonary nodule Solitary pulmonary nodule COPD, very severe Chronic airway obstruction, not elsewhere classified Pulmonary nodule Solitary pulmonary nodule documented in this encounter Care Teams Bolting Machine Operator Relationship Specialty Start Date End Date Belkys Bundy DO [address] [place] [address] PCP - General Family Medicine 03/21/19 documented as of this encounter
--- OUTSIDE RECORDS SUMMARY | 2024-04-21 18:52 | XMS_ITS | Encounter Summary ---
[place] [address] Care Team Providers Care Manager Laboratory Name Role Phone Belkys Bundy Primary Care Provider +1- [phone] Encounter Details Date Type Department Care Team (Late st Contact Info) Description 01/09/2021 2:00 PM EDT TH Visit (TeleHealth) [place] [address] Juanis Osullivan, RT COPD, very severe Social [...] cues. Upper extremity exercises done with black garrettaband. Sit to stand exercises (repetitions): 10-1st set and 13- 2nd set. Pulmonary Rehabilitation Exercise: please see Dary Wheat's SUSTAINABILITY SPECIALIST note Sent update to Dr. Thayer. Juanis Osullivan, CONFERENCE COORDINATOR,BUILDING SERVICES SUPERVISOR documented in this encounter Miscellaneous Notes * Treatment - Therapy - Dary Wheat, SUSTAINABILITY SPECIALIST - 01/09/2021 2:00 PM EDT Pulmonary Rehabilitation [...] 4:00 PM EDT Office Visit [place] [address] Kira Thayer MD [facility] [place] [address] documented as of this encounter Visit Diagnoses Diagnosis COPD, very severe Chronic airway obstruction, not elsewhere classified documented in this encounter Care Teams Manager Laboratory Relationship Specialty Start Date End Date Belkys Bundy DO [address] [place] [address] PCP - General Family Medicine 03/21/19 documented as of this encounter
--- OUTSIDE RECORDS SUMMARY | 2024-04-21 18:52 | XMS_ITS | Encounter Summary ---
[place] [address] Care Team Providers Care Enrollment Services Vice President Name Role Phone Belkys Bundy Primary Care Provider +1- [phone] Encounter Details Date Type Department Care Team (Late st Contact Info) Description 09/10/2020 2:00 PM EDT TH Visit (TeleHealth) [place] [address] Juanis Osullivan, RT COPD, very severe Social [...] Progress Notes * Juanis Osullivan, RT - 09/10/2020 2:00 PM EDT Pulmonary [...] #: 2 Comments: Exercise done utilizing the Bigvest on level 3 with O2 at 2 [...] Juanis Sanchez participated in discussion Juanis Osullivan, CLAIM TAKER,MS ACCESS DATABASE DEVELOPER documented in this encounter Miscellaneous Notes * [...] 4:00 PM EDT Office [place] [address] Kira Thayer MD [facility] [place] [address] documented as of this encounter Visit Diagnoses Diagnosis COPD, very severe Chronic airway obstruction, not elsewhere classified documented in this encounter Care Teams Enrollment Services Vice President Relationship Specialty Start Date End Date Belkys Bundy DO [address] [place] [address] PCP - General Family Medicine 03/21/19 documented as of this encounter
--- OUTSIDE RECORDS SUMMARY | 2024-04-21 18:52 | XMS_ITS | Encounter Summary ---
[place] [address] Care Team Providers Care Biometrics Consultant Name Role Phone Belkys Bundy Primary Care Provider +1- [phone] Encounter Details Date Type Department Care Team (Late st Contact Info) Description 09/24/2020 2:00 PM EDT TH Visit (TeleHealth) [place] [address] Juanis Osullivan, RT COPD, very severe Social [...] KATHERINE Westfall Soilayanni participated in discussion Juanis Osullivan, APPLE PACKING HEADER,VARNISHING MACHINE OPERATOR documented in this encounter Plan of Treatment Upcoming Encounters Date Type Department Care Team (Late st Contact Info) Description 08/27/2024 4:00 PM EDT Office Visit [place] [address] [facility] [place] [address] documented as of this encounter Visit Diagnoses Diagnosis COPD, very severe Chronic airway obstruction, not elsewhere classified documented in this encounter Care Teams Biometrics Consultant Relationship Specialty Start Date End Date Belkys Bundy DO [address] [place] [address] PCP - General Family Medicine 03/21/19 documented as of this encounter
--- OUTSIDE RECORDS SUMMARY | 2024-04-21 18:52 | XMS_ITS | Encounter Summary ---
[place] [address] Care Team Providers Care Alterations Expert Name Role Phone Belkys Bundy Primary Care Provider +1- [phone] Encounter Details Date Type Department Care Team (Late st Contact Info) Description 10/24/2020 2:00 PM EDT TH Visit (TeleHealth) [place] [address] Juanis Osullivan, RT COPD, very severe Social [...] pack this weekend for his week at [facility]. Jessie Sanchez exercised on 4 [...] see Jethro Knapp's PT note Juanis Osullivan, SIDE PULLER,VIDEO PRODUCER documented in this encounter Miscellaneous Notes * [...] for his first sleep away camp with Outreach Coordinator. EKG date have to reschedule form 11/03 [...] 4:00 PM EDT Office Visit [place] [address] Kira Thayer MD [facility] [place] [address] documented as of this encounter Visit Diagnoses Diagnosis COPD, very severe Chronic airway obstruction, not elsewhere classified documented in this encounter Care Teams Alterations Expert Relationship Specialty Start Date End Date Belkys Bundy DO [address] [place] [address] PCP - General Family Medicine 03/21/19 documented as of this encounter
--- OUTSIDE RECORDS SUMMARY | 2024-04-21 18:52 | XMS_ITS | Encounter Summary ---
[place] [address] Care Team Providers Care Clearing Distribution Clerk Name Role Phone Belkys Bundy Primary Care Provider +1- [phone] Encounter Details Date Type Department Care Team (Late st Contact Info) Description 09/26/2020 2:00 PM EDT TH Visit (TeleHealth) [place] [address] Juanis Osullivan, RT COPD, very severe Social [...] see Jethro Knapp's PT note Juanis Osullivan, PROFESSIONAL POKER PLAYER,HOME COMPANION documented in this encounter Miscellaneous Notes * [...] 4:00 PM EDT [place] [address] Kira Thayer MD [facility] [place] [address] documented as of this encounter Visit Diagnoses Diagnosis COPD, very severe Chronic airway obstruction, not elsewhere classified documented in this encounter Care Teams Clearing Distribution Clerk Relationship Specialty Start Date End Date Belkys Bundy DO [address] [place] [address] PCP - General Family Medicine 03/21/19 documented as of this encounter
--- OUTSIDE RECORDS SUMMARY | 2024-04-21 18:52 | XMS_ITS | Encounter Summary ---
Author Organization [facility] [place] [address] Care Team Providers Care Patient Navigator Name Role Phone Belkys Bundy Primary Care Provider +1- [phone] Encounter Details Date Type Department Care Team (Late st Contact Info) Description 09/22/2020 Telephone [place] [address] Juanis Osullivan, RT Social History Tobacco Use [...] follow up on: -home/portable oxygen: reviewed per [facility]- no Medicare claims for her O2. Plan for home O2 evaluation at 10/06 pulmonary appointment and transition to other [facility] O2 provider. Respiratory status: -Jessie noted increased [...] PM EDT Office [place] [address] Christi Pruett MD [facility] [address] documented as of this encounter Visit Diagnoses Not on filedocumented in this encounter Care Teams Patient Navigator Relationship Specialty Start Date End Date Belkys Bundy DO [address] [place] [address] PCP - General Family Medicine 03/21/19 documented as of this encounter
--- OUTSIDE RECORDS SUMMARY | 2024-04-21 18:52 | XMS_ITS | Encounter Summary ---
Author Organization [facility] [place] [address] Care Team Providers Care Bridge Painter Name Role Phone Belkys Bundy DO Primary Care Provider +1- [phone] Encounter Details Date Type Department Care Team (Late st Contact Info) Description 01/09/2021 [place] [address] Millicent Valles Social History Tobacco [...] 4:00 PM EDT [place] [address] Kira Thayer MD [facility] [place] [address] documented as of this encounter Visit Diagnoses Not on filedocumented in this encounter Care Teams Bridge Painter Relationship Specialty Start Date End Date Belkys Bundy DO [address] [place] [address] PCP - General Family Medicine 03/21/19 documented as of this encounter
--- OUTSIDE RECORDS SUMMARY | 2024-04-21 18:53 | XMS_ITS | Encounter Summary ---
Author Organization [facility] [place] [address] Care Team Providers Care Sales Operations Manager Name Role Phone Belkys Bundy Primary Care Provider +1- [phone] Encounter Details Date Type Department Care Team (Latest Contact Info) Description 06/25/2020 9:30 AM EDT TH Visit (TeleHealth) [place] [address] Kira Thayer MD [facility] [place] [address] COPD, very severe; Supplemental oxygen dependent; Tobacco [...] from the original note were not included. [facility] Section of Pulmonary and Critical Care Medicine Outpatient Consultation Date of Encounter: 06/25/2020 TELEHEALTH VISIT Patient identity was confirmed by name and date of at beginning of this telehealth visit. Patient was informed that this telehealth visit is a billable encounter and stated agreement to continue. The patient is at home in [place]. Reason for Evaluation: Ms. Jessie Sanchez returns [...] getting some walking in, currently goes to [facility] and can do a big lab around [...] Refill ??? fluticasone propionate (FLONASE) 50 mcg/actuation [place], Suspension ??? montelukast (Singulair) 10 mg Tablet [...] STOP ??? fluticasone propionate (FLONASE) 50 mcg/actuation [place], Suspension by Nasal route. ??? atorvastatin (Lipitor) [...] Use with spacer 2 Inhaler 5 ??? esmncealkng-jwbcxjfbh-wzxkpotr (Trelegy Ellipta) 200-62.5-25 mcg Disk with Device [...] reported as stable compared with testing in 2014, one new pulmonary nodule (small, apical; size [...] she may have had this done at [facility] recently. She is engaged with pulmonary rehab. She is already using supplemental home O2. She is interested in a referral to a lung transplant center, and I will place a referral to [place] for this. I think this may be [...] request EKG records (she thinks done at [facility] within past year); if hasn't been done may needupdated EKG this spring - plan to start trial of chronic azithromycin after obtaining EKG - will work on referral to lung transplant center ([place]) - she is working on tobacco cessation [...] on day of visit. Kira Thayer MD [facility] PULMONOLOGY AT [facility] [address] Dept: [phone] Loc: [phone] documented in this encounter Plan of Treatment Upcoming Encounters Date Type Department Care Team (Late st Contact Info) Description 08/27/2024 4:00 PM EDT Office [place] [address] Kira Thayer MD [facility] [place] [address] documented as of this encounter Results * [...] / FVC LLN 69 % COMPAS PFT FON15-38 Actual Pre-BD 0.30 L/s COMPAS PFT WIE42-00 Pre-BD % of Predicted 11 % COMPAS PFT TCL13-85 Predicted 2.78 L/s COMPAS PFT LTT25-67 Pre-BD Z-Score -4.34 COMPAS PFT DLCO Hb [...] documented in this encounter Care Teams Sales Operations Manager Relationship Specialty Start Date End Date Belkys Bundy DO [address] [place] [address] PCP - General Family Medicine 03/21/19 documented as of this encounter
--- OUTSIDE RECORDS SUMMARY | 2024-04-21 18:53 | XMS_ITS | Encounter Summary ---
Author Organization [facility] [place] [address] Care Team Providers Care Display Specialist Name Role Phone Belkys Bundy DO Primary Care Provider +1- [phone] Encounter Details Date Type Department Care Team (Late st Contact Info) Description 05/28/2020 Notes Only Pulmonology at [facility] [place] [address] Juanis Osullivan RT Social History Tobacco Use [...] PM EDT Office [place] [address] Kira Thayer MD [facility] [place] [address] documented as of this encounter Visit Diagnoses Not on filedocumented in this encounter Care Teams Display Specialist Relationship Specialty Start Date End Date Belkys Bundy DO [address] [place] [address] PCP - General Family Medicine 03/21/19 documented as of this encounter
--- OUTSIDE RECORDS SUMMARY | 2024-04-21 18:53 | XMS_ITS | Encounter Summary ---
[place] [address] Care Team Providers Care Bicycle Ii Assembler Name Role Phone Belkys Bundy Primary Care Provider +1- [phone] Encounter Details Date Type Department Care Team (Late st Contact Info) Description 07/23/2020 2:00 PM EDT TH Visit (TeleHealth) [place] [address] Juanis Osullivan, RT COPD, very severe Social [...] Jessie Sanchez participated in discussion Juanis Osullivan, MANAGER EMERGENCY,BEER COIL CLEANER documented in this encounter Miscellaneous Notes * [...] Upcoming Encounters Date Type Department Care Team ([place] Contact Info) Description 08/27/2024 4:00 PM EDT Office [place] [address] Kira Thayer MD [facility] [place] [address] documented as of this encounter Visit Diagnoses Diagnosis COPD, very severe Chronic airway obstruction, not elsewhere classified documented in this encounter Care Teams Bicycle Ii Assembler Relationship Specialty Start Date End Date Belkys Bundy DO [address] [place] [address] PCP - General Family Medicine 03/21/19 documented as of this encounter
--- OUTSIDE RECORDS SUMMARY | 2024-04-21 18:53 | XMS_ITS | Encounter Summary ---
Author Organization [facility] Address [place] [address] Care Team Providers Care Instructor Psychiatric Aide Name Role Phone Gladis Jones APRN Primary Care Provider [phone] Reason for Visit * Auth/Cert Specialty Diagnoses / Procedures Referred By Rossy t Referred To Contact Diagnoses intestinal metaplasia proclear Procedures PRO UPPER GI ENDOSCOPY, DIAGNOSTIC EGD, UPPER GI ENDOSCOPY Referral ID Status Reason Start Date Expiration Date Visits Re quested Visits Authorized [id number] 1 1 Encounter Details Date Type Department Care Team (Late st Contact Info) Description 09/25/2018 3:45 PM EDT - 09/25/2018 4:15 PM EDT Surgery [place] [address] Sammie Johnson MD [facility] [place] [address] EGD, UPPER GI ENDOSCOPY (WRVU 2.09) Social [...] better as expected. Tuesday-Tuesday Same Day Endo [phone] [id number] Otherwise contact [phone] and ask to speak to the painter barrel mission analyst Follow-up care is a troncoso part of [...] PM EDT Office [place] [address] Kira Thayer MD [facility] [place] [address] documented as of this encounter Procedures Procedure [...] PM EDT 09/25/2018 4:21 PM EDT Narrative [facility] - 09/25/2018 4:21 PM EDT Specimen requisition ordered. ??Separate Pathology report to follow Sammie Johnson MD PATHOLOGY/CYTOLOGY O EDUARDO Performing Organization Address [facility] Co de Phone Number [facility] [place] [address] * Specimen to Pathology (09/25/2018 4:21 PM EDT) AP Specimen 09/25/2018 4:21 PM EDT 09/25/2018 4:21 PM EDT Narrative [facility] - 09/25/2018 4:21 PM EDT Specimen requisition ordered. ??Separate Pathology report to follow Sammie Johnson MD PATHOLOGY/CYTOLOGY O EDUARDO Performing Organization Address [facility] de Phone Number [place] [phone] * Surgical Pathology Report (09/25/2018 4:08 PM EDT) Final Diagnosis [id number] ? Location: 4T; EA08; A The signing [...] TRAVIS, Mabel Verified: ??09/29/2018 ?Pathologist Performed at: ??-[facility] Dept. [place], [place], [place] CLINICAL INFORMATION Specimen Submitted: A - [...] labeled B1. ??sns 09/29/2018 10:31 AM EDT [facility] GI Biopsy 09/25/2018 4:08 PM EDT 09/25/2018 4:08 PM EDT GI Biopsy 09/25/2018 4:08 PM EDT 09/25/2018 4:08 PM EDT Sammie Johnson MD PATHOLOGY/CYTOLOGY O EDUARDO [facility] [place] [address] * UPPER GI ENDOSCOPY (09/25/2018 3:53 PM EDT) UPPER GI ENDOSCOPY [facility] Endoscopy Procedure Date: 09/25/2018 3:53 PM ? Patient Name: Jessie Sanchez ? Date of : 1970 ? Age: 48 ? Order #: [id number] ? Instrument Name: [id number] ? Procedure: ? Upper GI endoscopy Indications: ? long standing reflux treated with ? PPI, recent EGD showing intestinal ? metaplasia on gastric biopsies. ? Symptoms of bloating. Providers: ? Sammie Johnson MD, Neli Bautista, KRISTINE, ? Kervin Lopez MD: ?Ehsan Mathis Medicines: [...] RN) documented in this encounter Care Teams Instructor Psychiatric Aide Relationship Specialty Start Date End Date Gladis Jones APRN PCP - General Family Medicine 09/25/18 03/20/19 documented as of this encounter
--- OUTSIDE RECORDS SUMMARY | 2024-04-21 18:53 | XMS_ITS | Encounter Summary ---
Author Organization Replaced By [facility] Address [facility] [place] [address] Care Team Providers Care Setter Up Name Role Phone Gladis Jones APRN Primary Care Provider [phone] Reason for Visit * Auth/Cert Specialty Diagnoses / Procedures Referred By Rossy t Referred To Contact Diagnoses intestinal metaplasia proclear Procedures PRO UPPER GI ENDOSCOPY, DIAGNOSTIC EGD, UPPER GI ENDOSCOPY Referral ID Status Reason Start Date Expiration Date Visits Re quested Visits Authorized [id number] 1 1 Encounter Details Date Type Department Care Team (Latest Contact Info) Description 09/25/2018 2:35 PM EDT - 09/25/2018 5:00 PM EDT Hospital Encounter [place] [address] Sammie Johnson MD [facility] [place] [address] Discharge Disposition: Home Social History Tobacco Use [...] better as expected. Tuesday-Tuesday Same Day Endo [phone] Otherwise contact [phone] and ask to speak to the cyber security consultant pole frame construction worker Follow-up care is a troncoso part of [...] 4:00 PM EDT Office [place] [address] Kira Thayer MD [facility] [address] documented as of this encounter Procedures Procedure [...] MD PATHOLOGY/CYTOLOGY O EDUARDO Performing Organization Address [facility] [place] [address] * Specimen to Pathology (09/25/2018 4:21 PM EDT) AP Specimen 09/25/2018 4:21 PM EDT 09/25/2018 4:[address] [facility] - 09/25/2018 4:21 PM EDT Specimen requisition ordered. ??Separate Pathology report to follow Sammie Johnson MD PATHOLOGY/CYTOLOGY O EDUARDO Performing Organization Address [facility] [place] [address] * Surgical Pathology Report (09/25/2018 4:08 PM EDT) Final Diagnosis [id number] ? Location: 4T; EA08; A The signing [...] Givens MD Verified: ??09/29/2018 ?Pathologist Performed at: ??-[facility] [place], [place], [place] CLINICAL INFORMATION Specimen Submitted: A - [...] PM EDT Sammie Johnson MD PATHOLOGY/CYTOLOGY O RDERAELIUD [facility] [place] [address] * UPPER GI ENDOSCOPY (09/25/2018 3:53 PM EDT) UPPER GI ENDOSCOPY [facility] Endoscopy Procedure Date: 09/25/2018 3:53 PM ? Patient Name: Jessie Sanchez ? Date of : 1970 ? Age: 48 ? Order #: [id number] ? Instrument Name: [id number] ? Procedure: ? Upper GI endoscopy Indications: [...] Routine 1605 (Given - Provid er: Neli Bautisat RN)1609 (Given - Provider: Neli Bautista RN) midazolam (PF) (VERSED) multi-dose injection (CANCELED) ONCE PRN, Starting on Tue09/25/18 at 1605, Until Tue09/25/18 at 1900, Intra-Operative (Intra-Procedure), Routine 1605 (Given - Provid er: Neli Bautista RN)1609 (Given - Provider: Neli Bautista RN) documented in this encounter Care Teams Setter Up Relationship Specialty Start Date End Date Gladis Jones APRN PCP - General Family Medicine 09/25/18 03/20/19 documented as of this encounter
--- OUTSIDE RECORDS SUMMARY | 2024-04-21 18:53 | XMS_ITS | Encounter Summary ---
Author Organization [facility] [place] [address] Care Team Providers Care Superintendent Plant Name Role Phone Ehsan Mathis Primary Care Provider [phone] Encounter Details Date Type Department Care Team (Late st Contact Info) Description 2018 Ancillary Procedure Radiology Library at [facility] [place] [address] Sammie Johnson MD [facility] [place] [address] Social History Tobacco Use Types Packs/Day Years [...] 4:00 PM EDT Office Visit Pulmonology at [facility] [place] [address] Kira Thayer MD [facility] [place] [address] documented as of this encounter Procedures Procedure Name Priority Date/Time Associated Diagnosis Comments FILM LIBRARY STORAGE ONLY NUCLEAR MEDICINE Routine 2018 12:00 AM EDT documented in this encounter Results * Film Library- Storage Only nuclear medicine (2018 12:00 AM EDT) Narrative [facility] - 10/20/2018 11:53 AM EDT This exam is auto-finalizing. It's purpose is for storage only. Sammie Johnson MD IMG FILM LIBRARY ORD ERABLES [place], [place] documented in this encounter Visit Diagnoses Not on filedocumented in this encounter Care Teams Superintendent Plant Relationship Specialty Start Date End Date Ehsan Mathis PA PCP - General General Internal Medicine 08/30/1809/09 documented as of this encounter
--- OUTSIDE RECORDS SUMMARY | 2024-04-21 18:53 | XMS_ITS | Encounter Summary ---
Author Organization [facility] [place] [address] Care Team Providers Care Side Piece Coverer Name Role Phone Belkys Bundy DO Primary Care Provider [phone]- [phone] Encounter Details Date Type Department Care Team (Late st Contact Info) Description 05/26/2020 [place] [address] Juanis Osullivan, RT Social History Tobacco Use [...] 4:00 PM EDT [place] [address] Kira Thayer MD [facility] [place] [address] documented as of this encounter Visit Diagnoses Not on filedocumented in this encounter Care Teams Side Piece Coverer Relationship Specialty Start Date End Date Belkys Bundy DO [address] [place] [address] PCP - General Family Medicine 03/21/19 documented as of this encounter
--- OUTSIDE RECORDS SUMMARY | 2024-04-21 18:53 | XMS_ITS | Encounter Summary ---
Author Organization [facility] [place] [address] Care Team Providers Care Promotions Assistant Sales Marketing Name Role Phone Niharika Belkys Virginie MYRICK Primary Care Provider +1- [phone] Encounter Details Date Type Department Care Team (Late st Contact Info) Description 08/08/2020 Telephone [place] [address] Juanis Osullivan, RT Social History Tobacco Use [...] portable oxygen concentrator order be sent to [facility]. The unit she had received from her father is broken. She has been utilizing her portable oxygen concentrator at 3 pulse dose. She is unsure how long she has had oxygen from [facility]. Reviewed the Medicare O2 DME 5 [...] 4:00 PM EDT Office [place] [address] Kira Thayer MD [facility] [place] [address] documented as of this encounter Visit Diagnoses Not on filedocumented in this encounter Care Teams Promotions Assistant Sales Marketing Relationship Specialty Start Date End Date Belkys Bundy DO [address] [place] [address] PCP - General Family Medicine 03/21/19 documented as of this encounter
--- OUTSIDE RECORDS SUMMARY | 2024-04-21 18:53 | XMS_ITS | Encounter Summary ---
Author Organization [facility] [place] [address] Care Team Providers Care Operations Developer Name Role Phone Jessie [place] Senait MARCELINO Primary Care Provider [phone] Encounter Details Date Type Department Care Team (Late st Contact Info) Description 07/27/2018 Ancillary Procedure Radiology Library at [facility] [place] [address] Sammie Johnson MD [facility] [place] [address] Social History Tobacco Use Types Packs/Day Years [...] EDT Office Visit Pulmonology at [facility] [place] [address] Kira Thayer MD [facility] [place] [address] documented as of this encounter Procedures Procedure Name Priority Date/Time Associated Diagnosis Comments FILM LIBRARY STORAGE ONLY ULTRASOUND STUDY Routine 07/27/2018 12:00 AM EDT documented in this encounter Results * Film Library- Storage Only Ultrasound Study (07/27/2018 12:00 AM EDT) Narrative [facility] - 10/20/2018 11:51 AM EDT This exam is auto-finalizing. It's purpose is for storage only. Sammie Johnson MD IMG FILM LIBRARY ORD ERABLES [place], [place] documented in this encounter Visit Diagnoses Not on filedocumented in this encounter Care Teams Operations Developer Relationship Specialty Start Date End Date Jessie [place] APRN PCP - General 06/19/13 08/29/18 documented as of this encounter
--- OUTSIDE RECORDS SUMMARY | 2024-04-21 18:53 | XMS_ITS | Encounter Summary ---
Author Organization [facility] Address [facility] [place] [address] Care Team Providers Care Sweeping Compound Blender Name Role Phone Belkys Bundy Primary Care Provider +1- [phone] Encounter Details Date Type Department Care Team (Late st Contact Info) Description 08/22/2020 [place] [address] Kira Thayer MD [facility] [place] [address] Social History Tobacco Use Types Packs/Day Years [...] EDT Office [place] [address] Kira Thayer MD [facility] [place] [address] documented as of this encounter Visit Diagnoses Not on filedocumented in this encounter Care Teams Sweeping Compound Blender Relationship Specialty Start Date End Date Belkys Bundy DO [address] [place] [address] PCP - General Family Medicine 03/21/19 documented as of this encounter
--- OUTSIDE RECORDS SUMMARY | 2024-04-21 18:53 | XMS_ITS | Encounter Summary ---
[place] [address] Care Team Providers Care Airdox Fitter Name Role Phone Belkys Bundy Primary Care Provider +1- [phone] Encounter Details Date Type Department Care Team (Late st Contact Info) Description 08/13/2020 2:00 PM EDT TH Visit (TeleHealth) [place] [address] Juanis Osullivan, RT COPD, very severe Social [...] see Jethro Knapp's PT note Juanis Osullivan, FIELD ACCOUNT DIRECTOR,STICKER HAND documented in this encounter Miscellaneous Notes * Treatment - Therapy - PostJethro PT - 08/13/2020 2:00 PM EDT Pulmonary [...] 4:00 PM EDT [place] [address] Kira Thayer MD [facility] [place] [address] documented as of this encounter Visit Diagnoses Diagnosis COPD, very severe Chronic airway obstruction, not elsewhere classified documented in this encounter Care Teams Airdox Fitter Relationship Specialty Start Date End Date Belkys Bundy DO [address] [place] [address] PCP - General Family Medicine 03/21/19 documented as of this encounter
--- OUTSIDE RECORDS SUMMARY | 2024-04-21 18:53 | XMS_ITS | Encounter Summary ---
Author Organization [facility] Address [facility] [place] [address] Care Team Providers Care Nuclear Medicine Technician Name Role Phone Belkys Bundy Primary Care Provider +1- [phone] Encounter Details Date Type Department Care Team (Late st Contact Info) Description 05/02/2020 [place] [address] Kira Thayer MD [facility] [place] [address] Social History Tobacco Use Types Packs/Day Years [...] Jessie said if can not connect with [employer] to call her home number. documented in this encounter Plan of Treatment Upcoming Encounters Date Type Department Care Team (Late st Contact Info) Description 08/27/2024 4:00 PM EDT Office [place] [address] Kira Thayer MD [facility] [place] [address] documented as of this encounter Visit Diagnoses Not on filedocumented in this encounter Care Teams Nuclear Medicine Technician Relationship Specialty Start Date End Date Belkys Bundy DO [address] [place] [address] PCP - General Family Medicine 03/21/19 documented as of this encounter
--- OUTSIDE RECORDS SUMMARY | 2024-04-21 18:53 | XMS_ITS | Encounter Summary ---
Author Organization [facility] [place] [address] Care Team Providers Care Forensic Examiner Name Role Phone Belkys Bundy Primary Care Provider +1- [phone] Encounter Details Date Type Department Care Team (Late st Contact Info) Description 06/11/2020 Telephone Pulmonology at [facility] [place] [address] Juanis Osullivan RT Social History Tobacco Use [...] 4:00 PM EDT Office [place] [address] Kira Thayer MD [facility] [place] [address] documented as of this encounter Visit Diagnoses Not on filedocumented in this encounter Care Teams Forensic Examiner Relationship Specialty Start Date End Date Belkys Bundy DO [address] [place] [address] PCP - General Family Medicine 03/21/19 documented as of this encounter
--- OUTSIDE RECORDS SUMMARY | 2024-04-21 18:53 | XMS_ITS | Encounter Summary ---
Author Organization [facility] [place] [address] Care Team Providers Care Process Inspector Name Role Phone Belkys Bundy Primary Care Provider +1- [phone] Encounter Details Date Type Department Care Team (Late st Contact Info) Description 08/08/2020 Telephone [place] [address] Juanis Osullivan RT Social History Tobacco Use [...] 08/08/2020 1:06 PM EDT Called Cristin at [facility] to review Jessie's current status of her Medicare O2 benefit. Cristin noted that currently no months have billed for Medicare for her oxygen. Jessie needs to be requalified for oxygen with new oxygen orders. documented in this encounter Plan of Treatment Upcoming Encounters Date Type Department Care Team (Late st Contact Info) Description 08/27/2024 4:00 PM EDT Office [place] [address] Kira Thayer MD [facility] [place] [address] documented as of this encounter Visit Diagnoses Not on filedocumented in this encounter Care Teams Process Inspector Relationship Specialty Start Date End Date Belkys Bundy DO [address] [place] [address] PCP - General Family Medicine 03/21/19 documented as of this encounter
--- OUTSIDE RECORDS SUMMARY | 2024-04-21 18:53 | XMS_ITS | Encounter Summary ---
[place] [address] Care Team Providers Care Senior Training Specialist Name Role Phone Belkys Bundy Primary Care Provider +1- [phone] Encounter Details Date Type Department Care Team (Late st Contact Info) Description 07/09/2020 2:00 PM EDT TH Visit (TeleHealth) [place] [address] Juanis Osullivan, RT COPD, very severe Social [...] mop for energy conservation strategy Juanis Osullivan, EDGE RUNNER,KEY ATTENDANT documented in this encounter Miscellaneous Notes * [...] PM EDT Office [place] [address] Kira Thayer MD [facility] [place] [address] documented as of this encounter Visit Diagnoses Diagnosis COPD, very severe Chronic airway obstruction, not elsewhere classified documented in this encounter Care Teams Senior Training Specialist Relationship Specialty Start Date End Date Belkys Bundy DO [address] [place] [address] PCP - General Family Medicine 03/21/19 documented as of this encounter
--- OUTSIDE RECORDS SUMMARY | 2024-04-21 18:53 | XMS_ITS | Encounter Summary ---
[place] [address] Care Team Providers Care Supervisor Research Shop Name Role Phone Belkys Bundy Primary Care Provider +1- [phone] Encounter Details Date Type Department Care Team (Late st Contact Info) Description 08/08/2020 2:00 PM EDT TH Visit (TeleHealth) [place] [address] Juanis Osullivan, RT COPD, very severe Social [...] Progress Notes * Juanis Osullivan, RT - 08/08/2020 2:00 PM EDT Pulmonary [...] see Jethro Knapp's PT note Juanis Osullivan, LOAN AUDITOR,CHAIN LINK FENCE INSTALLER documented in this encounter Miscellaneous Notes * [...] 4:00 PM EDT [place] [address] Kira Thayer MD [facility] [address] [place] [address] documented as of this encounter Visit Diagnoses Diagnosis COPD, very severe Chronic airway obstruction, not elsewhere classified documented in this encounter Care Teams Supervisor Research Shop Relationship Specialty Start Date End Date Belkys Bundy DO [address] [place] [address] PCP - General Family Medicine 03/21/19 documented as of this encounter
--- OUTSIDE RECORDS SUMMARY | 2024-04-21 18:53 | XMS_ITS | Encounter Summary ---
[place] [address] Care Team Providers Care Propeller Mechanic Name Role Phone Belkys Bundy Primary Care Provider +1- [phone] Encounter Details Date Type Department Care Team (Late st Contact Info) Description 07/25/2020 2:00 PM EDT TH Visit (TeleHealth) [place] [address] Juanis Osullivan, RT COPD, very severe Social [...] Progress Notes * Juanis Osullivan, RT - 07/25/2020 2:00 PM EDT Pulmonary [...] days ago. Yesterday she walked around the [email or web address]. 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, [facility],SUPERVISOR SEWER MAINTENANCE documented in this encounter Miscellaneous Notes * [...] hamstring. ?? Comments: Jessie Sanchez walked around [place] a few times before shopping for exercise. [...] 4:00 PM EDT [place] [address] Kira Thayer MD [facility] [place] [address] documented as of this encounter Visit Diagnoses Diagnosis COPD, very severe Chronic airway obstruction, not elsewhere classified documented in this encounter Care Teams Propeller Mechanic Relationship Specialty Start Date End Date Belkys Bundy DO [address] [place] [address] PCP - General Family Medicine 03/21/19 documented as of this encounter
--- OUTSIDE RECORDS SUMMARY | 2024-04-21 18:53 | XMS_ITS | Encounter Summary ---
Author Organization [facility] Address [facility] [place] [address] Care Team Providers Care Senior Commercial Loan Officer Name Role Phone Belkys Bundy Primary Care Provider +1- [phone] Encounter Details Date Type Department Care Team (Late st Contact Info) Description 07/16/2020 Telephone [place] [address] [address]ira Thayer MD [facility] [place] [address] Social History Tobacco Use Types Packs/Day Years [...] 4:00 PM EDT Office [place] [address] Kira Thayer MD [facility] [place] [address] documented as of this encounter Visit Diagnoses Not on filedocumented in this encounter Care Teams Senior Commercial Loan Officer Relationship Specialty Start Date End Date Belkys Bundy DO [address] [place] [address] PCP - General Family Medicine 03/21/19 documented as of this encounter
--- OUTSIDE RECORDS SUMMARY | 2024-04-21 18:53 | XMS_ITS | Encounter Summary ---
[place] [address] Care Team Providers Care Elderly Companion Name Role Phone Belkys Bundy Primary Care Provider +1- [phone] Reason for Visit * Reason Onset Date Comments Referral 08/15/2020 Encounter Details Date Type Department Care Team (Late st Contact Info) Description 08/15/2020 [place] [address] Emily Starr RN Referral Social History Tobacco [...] 12:13 PM EDT Rec'd call back from [facility], seeking confirmation of dated on CT images that were requested. RN updated that CT images would be needed for 01/14/2020 and 03/28/2018. Images to be sent to [facility]. * Telephone Encounter - Emily Starr RN - 08/15/2020 2:55 PM EDT RN called to get images sent to [facility] from 05/12/2020 and 01/15/2020. RN requested image CD from [facility] image library be generated and sent to [facility] Lung Transplant Team. documented in this encounter Plan of Treatment Upcoming Encounters Date Type Department Care Team (Late st Contact Info) Description 08/27/2024 4:00 PM EDT Office [place] [address] Kira Thayer MD [facility] [place] [address] documented as of this encounter Visit Diagnoses Not on filedocumented in this encounter Care Teams Elderly Companion Relationship Specialty Start Date End Date Belkys Bundy DO [address] [place] [address] PCP - General Family Medicine 03/21/19 documented as of this encounter
--- OUTSIDE RECORDS SUMMARY | 2024-04-21 18:53 | XMS_ITS | Encounter Summary ---
Author Organization [facility] [place] [address] Care Team Providers Care Work Distributor Name Role Phone Ehsan Mathis Primary Care Provider [phone] Encounter Details Date Type Department Care Team (Late st Contact Info) Description 09/20/2018 Tele[place] [address] Yoana Perea Social History Tobacco Use Types [...] - 09/20/2018 1:33 PM EDT Jessie Daniel [id number] Diagnosis: intestinal metaplasia 1. Have you ever [...] [] YES [] NO If Yes send [email or web address] message to [facility] ENDO DEVICE CHECK 4. Are you a diabetic? [] YES [] NO If yes, controlled by meds or diet? 5. Do you have any Allergies to Eggs, Latex or Medications? [x] YES [] NO If Yes, what: see E-DH 6. Do you take any Oral Iron [...] NO 11. You must have a responsible democrat stay at the facility during your procedure [...] 4:00 PM EDT [place] [address] Kira Thayer MD [facility] [place] [address] documented as of this encounter Visit Diagnoses Not on filedocumented in this encounter Care Teams Work Distributor Relationship Specialty Start Date End Date Ehsan Mathis PA PCP - General General Internal Medicine 08/30/1809/09 documented as of this encounter
--- OUTSIDE RECORDS SUMMARY | 2024-04-21 18:53 | XMS_ITS | Encounter Summary ---
Author Organization [facility] [place] [address] Care Team Providers Care Director Aeronautics Commission Name Role Phone Belkys Bundy DO Primary Care Provider +1- [phone] Encounter Details Date Type Department Care Team (Late st Contact Info) Description 01/14/2020 Ancillary Procedure Radiology Library [place] [facility] [place] [address] Kira Thayer MD [facility] [address] Social History Tobacco Use Types Packs/Day Years [...] 4:00 PM EDT Office Visit Pulmonology at [facility] [place] [address] Kira Thayer MD [facility] [address] documented as of this encounter Procedures Procedure [...] FILM LIBRARY ORD ERABLES Performing Organization Address City/State/[facility] Co de Phone Number [place], [place] documented in this encounter Visit Diagnoses Not on filedocumented in this encounter Care Teams Director Aeronautics Commission Relationship Specialty Start Date End Date Belkys Bundy DO [address] [place] [address] PCP - General Family Medicine 03/21/19 documented as of this encounter
--- OUTSIDE RECORDS SUMMARY | 2024-04-21 18:53 | XMS_ITS | Encounter Summary ---
Author Organization [facility] Address [facility] [place] [address] Care Team Providers Care Blasting Miner Name Role Phone Belkys Bundy Virginie MYRIKC Primary Care Provider +1- [phone] Reason for Visit * Physical Therapy (Routine) - Closed Specialty Diagnoses / Procedures Referred By Rossy levine Referred To Contact Physical Therapy Diagnoses COPD, very severe Kervin Steiner Jr., MD [facility] [place] [address] Adolph Morales, PT [facility] PHYSICAL MEDICINE & [place] [address] Referral ID Status Reason Start Date Expiration Date V isits Requested Visits Authorized [id number] Closed Evaluate and Treat 06/12/2020 06/12/2021 100 100 Encounter Details Date Type Department Care Team (Late st Contact Info) Description 07/08/2020 9:00 AM EDT TH Visit (TeleHealth) [place] [address] Adolph Morales, PT [facility] PHYSICAL MEDICINE & [place] [address] Chronic obstructive pulmonary disease, unspecified COPD type [...] Telemedicine Encounter Patient: Jessie Sanchez MR Number: [id number] Date of : 1970 Home [address]: [address] [place] [address] Phone Number (Home, Mobile): Mobile Not on file. Date of Visit: 07/08/2020 Patient Location at time of visit: [address] [place] [address], [place], [place]; Jessie Sanchez is aware that I will need to confirm this location each time we meet. Others in the same physical location as the patient: none This therapist is legally able to treat the patient in [place] and [place] via Telehealth due to license waiver agreement during Covid 19 crisis. NOTE: Jessie Sanchez has verbally consented to participate in a Telemedicine visit with ADOLPH MORALES PT as her Rehabilitation Medicine provider while the [facility] Covid 19 crisis is taking place. This Telemedicine visit was comprised of both Audio and Visual through a [facility] throughout the duration of this visit. Patient understands this is a therapy service and will be billed to her insurance. Patient consents that therapy or educational materials could be sent through [facility] or e-mail addressat: [email or web address]. Jessie Sanchez did not have any questions for me at this time and was informed the best way to reach me is through [facility]. Activities of Daily Living Assessment - Pulmonary [...] 4:00 PM EDT Office [place] [address] Kira Thayer MD [facility] [place] [address] Scheduled Referrals Name Type Priority Associated Diagnoses Orde r Schedule Referral to Physical Therapy Outpatient Referral Routine COPD, very severe Ordered: 06/12/2020 documented as of this encounter Visit Diagnoses Diagnosis Chronic obstructive pulmonary disease, unspecified COPD type documented in this encounter Care Teams Blasting Miner Relationship Specialty Start Date End Date Belkys Bundy DO [address] [place] [address] PCP - General Family Medicine 03/21/19 documented as of this encounter
--- OUTSIDE RECORDS SUMMARY | 2024-04-21 18:53 | XMS_ITS | Encounter Summary ---
[place] [address] Care Team Providers Care Food Or Baggage Handling Rampman Name Role Phone Belkys Bundy Primary Care Provider +1- [phone] Encounter Details Date Type Department Care Team (Latest Contact Info) Description 07/30/2020 2:00 PM EDT TH Visit (TeleHealth) [place] [address] Juanis Osullivan, RT Chronic obstructive pulmonary disease, [...] with stretching of gastroc, tricep, and chest solid waste management engineer. Comments: Went for a walk when the [...] 4:00 PM EDT [place] [address] [facility] [place] [address] documented as of this encounter Visit Diagnoses Diagnosis Chronic obstructive pulmonary disease, unspecified COPD type documented in this encounter Care Teams Food Or Baggage Handling Rampman Relationship Specialty Start Date End Date Belkys Bundy DO [address] [place] [address] PCP - General Family Medicine 03/21/19 documented as of this encounter
--- OUTSIDE RECORDS SUMMARY | 2024-04-21 18:53 | XMS_ITS | Encounter Summary ---
[place] [address] Care Team Providers Care Urgent Care Physician Assistant Name Role Phone Belkys Bundy DO Primary Care Provider +1- [phone] Reason for Referral * Rehabilitation (Routine) - Closed Specialty Diagnoses / Procedures Referred By Rossy levine Referred To Contact Pulmonology Diagnoses Chronic obstructive pulmonary disease, unspecified COPD type Supplemental oxygen dependent Kira Thayer MD [facility] [place] [address] [facility] [place] [address] Referral ID Status Reason Start Date Expiration Date V isits Requested Visits Authorized [id number] Closed Evaluate and Treat 04/25/2020 04/25/2021 36 36 Reason for Visit * Consultation (Routine) - Closed Specialty Diagnoses / Procedures Referred By Rossy levine Referred To Contact Pulmonology Diagnoses Chronic obstructive pulmonary disease, unspecified Dependence on supplemental oxygen Belkys Bundy DO [address] [place] [address] [facility] [address] [place] [address] Referral ID Status Reason Start Date Expiration Date V isits Requested Visits Authorized [id number] Closed Consult, Test & Treat [facility] PCP Updated and/or Approved 01/18/2020 01/17/2021 6 6 Encounter Details Date Type Department Care Team (Latest Contact Info) Description 04/25/2020 10:00 AM EST TH Visit (TeleHealth) Pulmonology at [facility] [place] [address] Kira Thayer MD [facility] [place] [address] Chronic obstructive pulmonary disease, unspecified COPD type; [...] from the original note were not included. [facility] Section of Pulmonary and Critical Care Medicine Outpatient Consultation Date of Encounter: 04/25/2020 TELEHEALTH VISIT Patient identity was confirmed by name and date of at beginning of this telehealth visit. Patient was informed that this telehealth visit is a billable encounter and stated agreement to continue. The patient is at home in [place]. Referring Provider: Belkys Bundy DO [address] [place] [address] Reason for Evaluation: Belkys Bundy DO [address] [place] [address] referred Ms. Jessie Sanchez to the pulmonary [...] and was previously followed by apulmonologist in [place]. She is referred to use since their office no longer has a suspect artist. Mrs. 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 [...] 2.49) performed by Sammie Johnson MD at [facility] ENDOSCOPY ??? PRO UPPER GI ENDOSCOPY, DIAGNOSTIC N/A 09/25/2018 EGD, UPPER GI ENDOSCOPY performed by Sammie Johnson MD at [facility] ENDOSCOPY Family History: Family History Problem [...] Take 10 mg by mouth daily. ??? pvjflzdswop-pcreoljou-yfaltsiv (Trelegy Ellipta) 100-62.5-25 mcg Disk with Device [...] I will request records from her previous suspect artist to review before ordering chest CT imaging of this nodule. We discussed the COVID19 vaccine, and I encouraged he to pursue vaccination at her earliest opportunity. She does not currently qualify for vaccination in the state of [place] (age not >/= 75), but sheis high [...] day of visit. Kira Thayer MD N [facility] PULMONOLOGY AT [facility] [address] Dept: [phone] Loc: [phone] documented in this encounter Plan of Treatment Upcoming Encounters Date Type Department Care Team (Late st Contact Info) Description 08/27/2024 4:00 PM EDT Office [place] [address] Kira Thayer MD [facility] [place] [address] Scheduled Referrals Name Type Priority Associated Diagnoses [...] / FVC LLN 69 % COMPAS PFT [id number] Actual Pre-BD 0.21 L/s COMPAS PFT SHO85-29 Pre-BD % of Predicted 7 % COMPAS PFT FRI15-00 Predicted 2.82 L/s COMPAS PFT [id number] Pre-BD Z-Score -4.72 COMPAS PFT DLCO Hb [...] type documented in this encounter Care Teams Urgent Care Physician Assistant Relationship Specialty Start Date End Date Belkys Bundy DO [address] [place] [address] PCP - General Family Medicine 03/21/19 documented as of this encounter
--- OUTSIDE RECORDS SUMMARY | 2024-04-21 18:53 | XMS_ITS | Encounter Summary ---
Author Organization [facility] [place] [address] Care Team Providers Care German Tutor Name Role Phone Belkys Bundy Primary Care Provider +1- [phone] Encounter Details Date Type Department Care Team (Late st Contact Info) Description 06/13/2020 2:00 PM EST TH Visit (TeleHealth) [place] [address] Juanis Osullivan, RT COPD, very severe Social [...] see Jennifer Morales's PT note Juanis Osullivan, AUTOMOTIVE ALIGNMENT SPECIALIST,RIG OPERATOR documented in this encounter Miscellaneous Notes [...] 4:00 PM EDT Office [place] [address] Kira Thayer MD [facility] [place] [address] documented as of this encounter Visit Diagnoses Diagnosis COPD, very severe Chronic airway obstruction, not elsewhere classified documented in this encounter Care Teams German Tutor Relationship Specialty Start Date End Date Belkys Bundy DO [address] [place] [address] PCP - General Family Medicine 03/21/19 documented as of this encounter
--- OUTSIDE RECORDS SUMMARY | 2024-04-21 18:53 | XMS_ITS | Encounter Summary ---
[place] [address] Care Team Providers Care Pig Furnace Operator Name Role Phone Belkys Bundy Primary Care Provider +1- [phone] Encounter Details Date Type Department Care Team (Late st Contact Info) Description 08/22/2020 2:00 PM EDT TH Visit (TeleHealth) [place]ology [place] [address] Juanis Osullivan, RT COPD, very severe Social [...] Progress Notes * Juanis Osullivan, RT - 08/22/2020 2:00 PM EDT Pulmonary [...] see Jethro Knapp's PT note Juanis Osullivan, LIVER TRIMMER,FUGITIVE INVESTIGATOR documented in this encounter Miscellaneous Notes * [...] 4:00 PM EDT Office Visit Pulmonology [place] [address] Kira Thayer MD [facility] [place] [address] documented as of this encounter Visit Diagnoses Diagnosis COPD, very severe Chronic airway obstruction, not elsewhere classified documented in this encounter Care Teams Pig Furnace Operator Relationship Specialty Start Date End Date Belkys Bundy DO [address] [place] [address] PCP - General Family Medicine 03/21/19 documented as of this encounter
--- OUTSIDE RECORDS SUMMARY | 2024-04-21 18:53 | XMS_ITS | Encounter Summary ---
Author Organization [facility] [place] [address] Care Team Providers Care Owner E [employer] Name Role Phone Belkys Bundy DO Primary Care Provider +1- [phone] Encounter Details Date Type Department Care Team (Late st Contact Info) Description 05/06/2020 Telephone [place] [address] Juanis Osullivan RT Social History Tobacco Use [...] 4:00 PM EDT Office Visit [place] [address] Kira Thayre MD [facility] [place] [address] documented as of this encounter Visit Diagnoses Not on filedocumented in this encounter Care Teams Owner [employer] Relationship Specialty Start Date End Date Belkys Bundy DO [address] [place] [address] PCP - General Family Medicine 03/21/19 documented as of this encounter
--- OUTSIDE RECORDS SUMMARY | 2024-04-21 18:53 | XMS_ITS | Encounter Summary ---
Author Organization [facility] [place] [address] Care Team Providers Care Meat Trimmer Name Role Phone Belkys Bundy Primary Care Provider +1- [phone] Encounter Details Date Type Department Care Team (Latest Contact Info) Description 06/20/2020 2:00 PM EST TH Visit (TeleHealth) [place] [address] Juanis Osullivan, RT Supplemental oxygen dependent; COPD, [...] 4:00 PM EDT [place] [address] Kira Thayer MD [facility] [place] [address] documented as of this encounter Visit Diagnoses Diagnosis Supplemental oxygen dependent Dependence on supplemental oxygen COPD, very severe Chronic airway obstruction, not elsewhere classified documented in this encounter Care Teams Meat Trimmer Relationship Specialty Start Date End Date Belkys Bundy DO [address] [place] [address] PCP - General Family Medicine 03/21/19 documented as of this encounter
--- OUTSIDE RECORDS SUMMARY | 2024-04-21 18:53 | XMS_ITS | Encounter Summary ---
Author Organization [facility] [place] [address] Care Team Providers Care Branch Service Representative Name Role Phone Belkys Bundy DO Primary Care Provider +1- [phone] Encounter Details Date Type Department Care Team (Late st Contact Info) Description 05/12/2020 [place] [address] Cristin Block Social History Tobacco Use Types [...] 4:00 PM EDT [place] [address] Kira Thayer MD [facility] [place] [address] documented as of this encounter Visit Diagnoses Not on filedocumented in this encounter Care Teams Branch Service Representative Relationship Specialty Start Date End Date Belkys Bundy DO [address] [place] [address] PCP - General Family Medicine 03/21/19 documented as of this encounter
--- OUTSIDE RECORDS SUMMARY | 2024-04-21 18:53 | XMS_ITS | Encounter Summary ---
[place] [address] Care Team Providers Care Stone Carriage Operator Name Role Phone Belkys Bundy Primary Care Provider +1- [phone] Encounter Details Date Type Department Care Team (Latest Contact Info) Description 05/26/2020 11:54 AM EST - 05/26/2020 11:59 PM EST Hospital En[place] [address] Chronic obstructive pulmonary disease, unspecified COPD type [...] End Date inhalational spacing device (Ricci Aerosol [place] Enhancer) Spacer .MEDSUPPLY 02/01/2020 linaCLOtide (Linzess) 72 mcg Capsule Take 72 mcg by mouth as needed. Take 30 minutes before meal 05/09/2020 fluticasone propionate (FLONASE) 50 mcg/actuation [place], Suspension 02/01/2020 atorvastatin (Lipitor) 20 mg Tablet [...] 04/15/2020 06/25/2020 fluticasone propionate (FLONASE) 50 mcg/actuation [place], Suspension by Nasal route. 02/01/2020 09/30/2020 albuteroL 90 mcg/actuation HFA Aerosol InhalerIndications:Brim Molder tomer obstructive pulmonary disease, unspecified COPD type Inhale 2 puffs into the lungs every 4 hours as needed for Wheezing or Shortness of Breath. Use with spacer 2 Inhaler 5 05/26/2020 12/23/2020 kgbzpvlgjqw-dyuoqezhk-q ilanter (Trelegy Ellipta) 200-62.5-25 mcg Disk with [...] EDT Office [place] [address] Kira Thayer MD [facility] [place] [address] documented as of this encounter Procedures Procedure [...] / FVC LLN 69 % COMPAS PFT PQQ44-38 Actual Pre-BD 0.21 L/s COMPAS PFT TIA16-03 Pre-BD % of Predicted 7 % COMPAS PFT CKR83-41 Predicted 2.82 L/s COMPAS PFT TBG56-55 Pre-BD Z-Score -4.72 COMPAS PFT DLCO Hb [...] type documented in this encounter Care Teams Stone Carriage Operator Relationship Specialty Start Date End Date Belkys Bundy DO [address] [place] [address] PCP - General Family Medicine 03/21/19 documented as of this encounter
--- OUTSIDE RECORDS SUMMARY | 2024-04-21 18:53 | XMS_ITS | Encounter Summary ---
[place] [address] Care Team Providers Care Electrical Helper Name Role Phone Belkys Bundy Primary Care Provider +1- [phone] Encounter Details Date Type Department Care Team (Late st Contact Info) Description 07/16/2020 2:00 PM EDT TH Visit (TeleHealth) [place] [address] Juanis Osullivan, RT COPD, very severe Social [...] Progress Notes * Juanis Osullivan, RT - 07/16/2020 2:00 PM EDT .Pulmonary [...] every 4-6 hours as needed. Juanis Osullivan, CLERICAL STOCK INSPECTOR,PORCELAIN ENAMEL SPRAYER documented in this encounter Plan of Treatment Upcoming Encounters Date Type Department Care Team (Late st Contact Info) Description 08/27/2024 4:00 PM EDT [place] [address] Kira Thayer MD [facility] [place] [address] documented as of this encounter Visit Diagnoses Diagnosis COPD, very severe Chronic airway obstruction, not elsewhere classified documented in this encounter Care Teams Electrical Helper Relationship Specialty Start Date End Date Belkys Bundy DO [address] [place] [address] PCP - General Family Medicine 03/21/19 documented as of this encounter
--- OUTSIDE RECORDS SUMMARY | 2024-04-21 18:53 | XMS_ITS | Encounter Summary ---
Author Organization [facility] Address [facility] [place] [address] Care Team Providers Care Road Mender Name Role Phone Belkys Bundy Primary Care Provider +1- [phone] Reason for Referral * Physical Therapy (Routine) - Closed Specialty Diagnoses / Procedures Referred By Rossy levine Referred To Contact Physical Therapy Diagnoses COPD, very severe Kervin Steiner Jr., MD [facility] [place] [address] Jennifer Morales, PT [facility] PHYSICAL MEDICINE & [place] [address] Referral ID Status Reason Start Date Expiration Date V isits Requested Visits Authorized [id number] Closed Evaluate and Treat 06/12/2020 06/12/2021 100 100 Encounter Details Date Type Department Care Team (Late st Contact Info) Description 06/11/2020 Orders [place] [address] Kervin Steiner Jr., MD [facility] [place] [address] COPD, very severe Social History Tobacco Use [...] 4:00 PM EDT Office [place] [address] Kira Thayer MD [facility] [place] [address] Scheduled Referrals Name Type Priority Associated Diagnoses Orde r Schedule Referral to Physical Therapy Outpatient Referral Routine COPD, very severe Ordered: 06/12/2020 documented as of this encounter Visit Diagnoses Diagnosis COPD, very severe Chronic airway obstruction, not elsewhere classified documented in this encounter Care Teams Road Mender Relationship Specialty Start Date End Date Belkys Bundy DO [address] [place] [address] PCP - General Family Medicine 03/21/19 documented as of this encounter
--- OUTSIDE RECORDS SUMMARY | 2024-04-21 18:53 | XMS_ITS | Encounter Summary ---
Author Organization [facility] [place] [address] Care Team Providers Care Seed Trucker Name Role Phone Belkys Bundy Primary Care Provider +1- [phone] Encounter Details Date Type Department Care Team (Late st Contact Info) Description 06/11/2020 2:00 PM EST TH Visit (TeleHealth) [place] [address] Juanis Osullivan RT COPD, very severe Social [...] 4:00 PM EDT [place] [address] Kira Thayer MD [facility] [place] [address] documented as of this encounter Visit Diagnoses Diagnosis COPD, very severe Chronic airway obstruction, not elsewhere classified documented in this encounter Care Teams Seed Trucker Relationship Specialty Start Date End Date Belkys Bundy DO [address] [place] [address] PCP - General Family Medicine 03/21/19 documented as of this encounter
--- OUTSIDE RECORDS SUMMARY | 2024-04-21 18:53 | XMS_ITS | Encounter Summary ---
Author Organization [facility] [place] [address] Care Team Providers Care Certified Ethical Hacker Name Role Phone Belkys Bundy DO Primary Care Provider +1- [phone] Encounter Details Date Type Department Care Team (Late st Contact Info) Description 05/17/2019 [place] [address] Cristin Block Social History Tobacco Use Types [...] 4:00 PM EDT [place] [address] Kira Thayer MD [facility] [address] documented as of this encounter Visit Diagnoses Not on filedocumented in this encounter Care Teams Certified Ethical Hacker Relationship Specialty Start Date End Date Belkys Bundy DO [address] [place] [address] PCP - General Family Medicine 03/21/19 documented as of this encounter
--- OUTSIDE RECORDS SUMMARY | 2024-04-21 18:53 | XMS_ITS | Encounter Summary ---
Author Organization [facility] Address [facility] [place] [address] Care Team Providers Care First Officer Name Role Phone Jessie Dover APRN Primary Care Provider [phone] Reason for Visit * - Closed Specialty Diagnoses / Procedures Referred By Rossy levine Referred To Contact Procedures Film Library- Storage Only CT Chest Belkys Bundy DO [address] [facility] [place] [address] Referral ID Status Reason Start Date Expiration Date Visits Re quested Visits Authorized [id number] Closed 06/27/2020 06/27/2021 1 1 Encounter Details Date Type Department Care Team (Late st Contact Info) Description 03/28/2018 Ancillary Procedure Radiology Library at [facility] [place] [address] Belkys Bundy DO [address] [place] [address] Social History Tobacco Use Types Packs/Day Years [...] 4:00 PM EDT [place] [address] Kira Thayer MD [facility] [place] [address] documented as of this encounter Procedures Procedure Name Priority Date/Time Associated Diagnosis Comments FILM LIBRARY STORAGE ONLY CT CHEST Routine 03/28/2018 12:00 AM EST documented in this encounter Results * Film Library- Storage Only CT Chest (03/28/2018 12:00 AM EST) Narrative [facility] - 06/27/2020 4:44 PM EDT This exam is auto-finalizing. It's purpose is for storage only. Belkys Bundy DO IMG FILM LIBRARY O RDERABLES [place], [place] documented in this encounter Visit Diagnoses Not on filedocumented in this encounter Care Teams First Officer Relationship Specialty Start Date End Date Jessie Dover APRN PCP - General 06/19/13 08/29/18 documented as of this encounter
--- OUTSIDE RECORDS SUMMARY | 2024-04-21 18:53 | XMS_ITS | Encounter Summary ---
Author Organization [facility] Address [facility] [place] [address] Care Team Providers Care Architectural Renderer Name Role Phone Belkys Bundy DO Primary Care Provider +1- [phone] Reason for Visit * Reason Comments Skin Check * Consultation (Routine) - Specialty Diagnoses / Procedures Referred By Rossy levine Referred To Contact Dermatology Diagnoses Disorder of the skin and subcutaneous tissue, unspecified Lesion left upper chest Procedures Consult Belkys Bundy DO [address] [place] [address] Deven Payan MD [address] [facility], [place] [address] Referral ID Status Reason Start Date Expiration Date V isits Requested Visits Authorized [id number] Consult, Test & Treat PCP Updated and/or Approved 03/18/2019 03/17/2020 6 6 Encounter Details Date Type Department Care Team (Late st Contact Info) Description 05/17/2019 8:15 AM EST Office Visit Dermatology at [address] [place] [address] Deven Payan MD [address] [facility], [place] [address] Sebaceous hyperplasia; Telangiectasia Social History [...] 4:00 PM EDT Office [place] [address] Kira Thayer MD [facility] [place] [address] documented as of this encounter Visit Diagnoses Diagnosis Sebaceous hyperplasia Other specified disease of sebaceous glands Telangiectasia Other and unspecified capillary diseases documented in this encounter Care Teams Architectural Renderer Relationship Specialty Start Date End Date Belkys Bundy DO [address] [place] [address] PCP - General Family Medicine 03/21/19 documented as of this encounter
--- OUTSIDE RECORDS SUMMARY | 2024-04-21 18:53 | XMS_ITS | Encounter Summary ---
Author Organization [facility] [place] [address] Care Team Providers Care Track Vehicle Repairer Name Role Phone Jessie Dover Senait MARCELINO Primary Care Provider [phone] Encounter Details Date Type Department Care Team (Late st Contact Info) Description 04/04/2016 Ancillary Procedure Radiology Library at [facility] [place] [address] Sammie Johnson MD [facility] [place] [address] Social History Tobacco Use Types Packs/Day Years [...] 4:00 PM EDT Office Visit Pulmonology at [facility] [place] [address] Kira Thayer MD [facility] [place] [address] documented as of this encounter Procedures Procedure Name Priority Date/Time Associated Diagnosis Comments FILM LIBRARY STORAGE ONLY CT ABDOMEN Routine 04/04/2016 12:00 AM EST documented in this encounter Results * Film Library- Storage Only CT Abdomen (04/04/2016 12:00 AM EST) Narrative RAD - 10/20/2018 11:49 AM EDT This exam is auto-finalizing. It's purpose is for storage only. Sammie Johnson MD IMG FILM LIBRARY ORD ERABLES [place], [place] documented in this encounter Visit Diagnoses Not on filedocumented in this encounter Care Teams Track Vehicle Repairer Relationship Specialty Start Date End Date Jessie Dover APRN PCP - General 06/19/13 08/29/18 documented as of this encounter
--- OUTSIDE RECORDS SUMMARY | 2024-04-21 18:53 | XMS_ITS | Encounter Summary ---
[place] [address] Care Team Providers Care Manager Warehouse Name Role Phone Belkys Bundy Primary Care Provider +1- [phone] Reason for Visit * Reason Onset Date Comments Request For Record 05/14/2020 pulmonary rec ords and imaging. Encounter Details Date Type Department Care Team (Late st Contact Info) Description 05/14/2020 Tele[place] [address] Emily Starr RN Request For Record (pulmonary [...] records or images from patient's time at [facility], to [facility] per Dr. Thayer. Fax submission confirmation time stamped for 05/14/2020 @ 7654. 1 page. documented in this encounter Plan of Treatment Upcoming Encounters Date Type Department Care Team (Late st Contact Info) Description 08/27/2024 4:00 PM EDT Office [place] [address] Kira Thayer MD [facility] [place] [address] documented as of this encounter Visit Diagnoses Not on filedocumented in this encounter Care Teams Manager Warehouse Relationship Specialty Start Date End Date Belkys Bundy DO [address] [place] [address] PCP - General Family Medicine 03/21/19 documented as of this encounter
--- OUTSIDE RECORDS SUMMARY | 2024-04-21 18:53 | XMS_ITS | Encounter Summary ---
Author Organization [facility] [place] [address] Care Team Providers Care Mobile Architect Name Role Phone Belkys Bundy Primary Care Provider +1- [phone] Encounter Details Date Type Department Care Team (Late st Contact Info) Description 06/04/2020 Telephone Pulmonology at [facility] [place] [address] Juanis Osullivan RT Social History Tobacco Use [...] pulmonary rehab today. Reviewed email contact information: [email or web address]. -she will also go into [facility] online and activate her my account for future pulm rehab sessions. She understood that DVT was ruled out by ultrasound. documented in this encounter Plan of Treatment Upcoming Encounters Date Type Department Care Team (Late st Contact Info) Description 08/27/2024 4:00 PM EDT Office Visit [place] [address] Kira Thayer MD [facility] [place] [address] documented as of this encounter Visit Diagnoses Not on filedocumented in this encounter Care Teams Mobile Architect Relationship Specialty Start Date End Date Belkys Bundy DO [address] [place] [address] PCP - General Family Medicine 03/21/19 documented as of this encounter
--- OUTSIDE RECORDS SUMMARY | 2024-04-21 18:53 | XMS_ITS | Encounter Summary ---
Author Organization [facility] [place] [address] Care Team Providers Care Retail Shift Leader Name Role Phone Belkys Bundy DO Primary Care Provider +1- [phone] Encounter Details Date Type Department Care Team (Late st Contact Info) Description 01/22/2020 [place] [address] Cristin Block Social History Tobacco Use Types [...] 4:00 PM EDT Office [place] [address] Kira Thayer MD [facility] PULMONARY MEDICINE [place], [place] [id number] documented as of this encounter Visit Diagnoses Not on filedocumented in this encounter Care Teams Retail Shift Leader Relationship Specialty Start Date End Date Belkys Bundy DO [address] [place] [address] PCP - General Family Medicine 03/21/19 documented as of this encounter
--- OUTSIDE RECORDS SUMMARY | 2024-04-21 18:53 | XMS_ITS | Encounter Summary ---
[place] [address] Care Team Providers Care Office Electrician Name Role Phone Belkys Bundy Primary Care Provider [phone]- [phone] Encounter Details Date Type Department Care Team (Late st Contact Info) Description 07/04/2020 2:00 PM EDT TH Visit (TeleHealth) [place] [address] Juanis Osullivan, RT COPD, very severe Social [...] see Jethro Knapp PT note Juanis Osullivan, CASE MANAGEMENT RN,SHOE SALESPERSON documented in this encounter Miscellaneous Notes * [...] 4:00 PM EDT Office [place] [address] Kira Thayer MD [facility] [place] [address] documented as of this encounter Visit Diagnoses Diagnosis COPD, very severe Chronic airway obstruction, not elsewhere classified documented in this encounter Care Teams Office Electrician Relationship Specialty Start Date End Date Belkys Bundy DO [address] [place] [address] PCP - General Family Medicine 03/21/19 documented as of this encounter
--- OUTSIDE RECORDS SUMMARY | 2024-04-21 18:53 | XMS_ITS | Encounter Summary ---
Author Organization [facility] [place] [address] Care Team Providers Care Flight Director Name Role Phone Niharika Belkys Virginie MYRICK Primary Care Provider +1- [phone] Encounter Details Date Type Department Care Team (Late st Contact Info) Description 07/18/2020 Tele[place] [address] Juanis Osullivan, RT Social History Tobacco Use [...] up with immediate medical attention. Reviewed oncall manufacturing associate contact information at [facility] Will forward to Dr. Thayer to review. documented in this encounter Plan of Treatment Upcoming Encounters Date Type Department Care Team (Late st Contact Info) Description 08/27/2024 4:00 PM EDT Office [place] [address] Kira Thayer MD [facility] [place] [address] documented as of this encounter Visit Diagnoses Not on filedocumented in this encounter Care Teams Flight Director Relationship Specialty Start Date End Date Belkys Bundy DO [address] [place] [address] PCP - General Family Medicine 03/21/19 documented as of this encounter
--- OUTSIDE RECORDS SUMMARY | 2024-04-21 18:53 | XMS_ITS | Encounter Summary ---
Author Organization [facility] [place] [address] Care Team Providers Care Steep Tender Name Role Phone Belkys Bundy DO Primary Care Provider +1- [phone] Encounter Details Date Type Department Care Team (Late st Contact Info) Description 06/30/2020 Telephone [place] [address] Millicent Valles Social History Tobacco [...] 4:00 PM EDT Office [place] [address] Kira Thayer MD [facility] [place]MONARY [place] [address] documented as of this encounter Visit Diagnoses Not on filedocumented in this encounter Care Teams Steep Tender Relationship Specialty Start Date End Date Belkys Bundy DO [address] [place] [address] PCP - General Family Medicine 03/21/19 documented as of this encounter
--- OUTSIDE RECORDS SUMMARY | 2024-04-21 18:53 | XMS_ITS | Encounter Summary ---
[place] [address] Care Team Providers Care Court Bailiff Or Sheriff Name Role Phone Belkys Bundy Primary Care Provider +1- [phone] Reason for Visit * Reason Onset Date Comments Request For Record 07/18/2020 EKG Encounter Details Date Type Department Care Team (Late st Contact Info) Description 07/18/2020 [place] [address] Emily Starr RN Request For Record (EKG) [...] submission confirmation time stamped for 07/18/2020 @ 6873. 1 page documented in this encounter Plan of Treatment Upcoming Encounters Date Type Department Care Team (Late st Contact Info) Description 08/27/2024 4:00 PM EDT [place] [address] Kira Thayer MD [facility] [place] [address] documented as of this encounter Visit Diagnoses Not on filedocumented in this encounter Care Teams Court Bailiff Or Sheriff Relationship Specialty Start Date End Date Belkys Bundy DO [address] [place] [address] PCP - General Family Medicine 03/21/19 documented as of this encounter
--- OUTSIDE RECORDS SUMMARY | 2024-04-21 18:53 | XMS_ITS | Encounter Summary ---
Author Organization [facility] [place] [address] Care Team Providers Care Service Plumber Name Role Phone Belkys Bundy DO Primary Care Provider +1- [phone] Encounter Details Date Type Department Care Team (Late st Contact Info) Description 03/27/2019 [place] [address] Cristin Block Social History Tobacco Use Types [...] EDT Office [place] [address] Kira Thayre MD [facility] PULMONARY MEDICINE [place], [place] [address] documented as of this encounter Visit Diagnoses Not on filedocumented in this encounter Care Teams Service Plumber Relationship Specialty Start Date End Date Belkys Bundy DO [address] [place] [address] PCP - General Family Medicine 03/21/19 documented as of this encounter
--- OUTSIDE RECORDS SUMMARY | 2024-04-21 18:53 | XMS_ITS | Encounter Summary ---
Author Organization [facility] [place] [address] Care Team Providers Care Housing Inspectors Name Role Phone Belkys Bundy DO Primary Care Provider +1- [phone] Encounter Details Date Type Department Care Team (Late st Contact Info) Description 07/04/2020 Telephone [place] [address] Eva Swenson Social History Tobacco [...] 4:00 PM EDT Office [place] [address] Kira Thayer MD [facility] [place] [address] documented as of this encounter Visit Diagnoses Not on filedocumented in this encounter Care Teams Housing Inspectors Relationship Specialty Start Date End Date Belkys Bundy DO [address] [place] [address] PCP - General Family Medicine 03/21/19 documented as of this encounter
--- OUTSIDE RECORDS SUMMARY | 2024-04-21 18:53 | XMS_ITS | Encounter Summary ---
Author Organization [facility] Address [facility] [place] [address] Care Team Providers Care Alum Plant Supervisor Name Role Phone OliverBelkys moore Virignie MYRICK Primary Care Provider +1- [phone] Reason for Visit * Reason Comments Follow-up * Rehabilitation (Routine) - Closed Specialty Diagnoses / Procedures Referred By Rossy levine Referred To Contact Pulmonology Diagnoses Chronic obstructive pulmonary disease, unspecified COPD type Supplemental oxygen dependent Kira Thayer MD [facility] [address] [place] [address] [facility] [place] [address] Referral ID Status Reason Start Date Expiration Date V isits Requested Visits Authorized [id number] Closed Evaluate and Treat 04/25/2020 04/25/2021 36 36 Encounter Details Date Type Department Care Team (Late st Contact Info) Description 05/26/2020 1:00 PM EST Office [place] [address] Juanis Osullivan, RT Chronic obstructive [...] preparation for potential lung transplant Juanis Osullivan, FROZEN MEAT CUTTER,HIGH LIFT MULE OPERATOR documented in this encounter Progress Notes * [...] 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 Prior to covid pandemic she enjoyed going to [employer] weekly. Currently connected with palliative care Nutrition: [...] dyspnea Covid-19 immunization: Jessie Sanchez lives in [place] and understood that she needed a medical note related to high risk individual to be able to receive covid-19 vaccine. Provided copy of her telehealth visit with Dr. Thayer that includes recommendation for her to receive her Covid-19 vaccines. Changes in Pulmonary Rehabilitation secondary to Covid-19 precautions. The pulmonary rehabilitation program currently meets via [employer] weekly for education and participants continue with their home exercise program with weekly review with the pulmonary rehab staff. The program is under the direction of the medical billing specialist, Dr. Kervin Steiner. Educational classes provided regarding anatomy/physiology of lung disease, breathing retraining, medications, warning signs of infection, environmental risk factors, exercise, energy conservation, stress management and relaxation techniques, coping with a chronic lung disease, nutritional and lung disease, community resources, travel and lung disease. The patient???s progress will be reviewed with the medical billing specialist every 2-4 weeks during the program. Reviewed [...] severe (almost maximal) 10 [employer] Dyspnea Scale: 0: Breathless with strenuous [...] PM EDT Office [place] [address] Kira Thayer MD [facility] [address] [place] [address] documented as of this encounter Visit Diagnoses Diagnosis Chronic obstructive pulmonary disease, unspecified COPD type- Primary COPD, very severe Chronic airway obstruction, not elsewhere classified documented in this encounter Care Teams Alum Plant Supervisor Relationship Specialty Start Date End Date Belkys Bundy DO [address] [place] [address] PCP - General Family Medicine 03/21/19 documented as of this encounter
--- OUTSIDE RECORDS SUMMARY | 2024-04-21 18:53 | XMS_ITS | Encounter Summary ---
Author Organization [facility] [place] [address] Care Team Providers Care Experimental Welder Name Role Phone Belkys Bundy DO Primary Care Provider +1- [phone] Encounter Details Date Type Department Care Team (Late st Contact Info) Description 01/22/2020 [place] [address] Cristin Block Social History Tobacco Use Types [...] 4:00 PM EDT [place] [address] Kira Thayer MD [facility] PULMONARY MEDICINE [place], [place] [address] documented as of this encounter Visit Diagnoses Not on filedocumented in this encounter Care Teams Experimental Welder Relationship Specialty Start Date End Date Belkys Bundy DO [address] [place] [address] PCP - General Family Medicine 03/21/19 documented as of this encounter
--- OUTSIDE RECORDS SUMMARY | 2024-04-21 18:53 | XMS_ITS | Encounter Summary ---
Author Organization [facility] [place] [address] Care Team Providers Care Welder Manufacture Name Role Phone Belkys Bundy DO Primary Care Provider +1- [phone] Encounter Details Date Type Department Care Team (Late st Contact Info) Description 01/24/2020 [place] [address] Cristin Block Social History Tobacco Use Types [...] 4:00 PM EDT [place] [address] Kira Thayer MD [facility] [place] [address] documented as of this encounter Visit Diagnoses Not on filedocumented in this encounter Care Teams Welder Manufacture Relationship Specialty Start Date End Date Belkys Bundy DO [address] [place] [address] PCP - General Family Medicine 03/21/19 documented as of this encounter
--- OUTSIDE RECORDS SUMMARY | 2024-04-21 18:53 | XMS_ITS | Encounter Summary ---
[place] [address] Care Team Providers Care Chair Inspector And Leveler Name Role Phone Belkys Bundy Primary Care Provider +1- [phone] Encounter Details Date Type Department Care Team (Late st Contact Info) Description 08/20/2020 2:00 PM EDT TH Visit (TeleHealth) [place] [address] Juanis Osullivan, RT COPD, very severe Social [...] Jatin Sanchez participated in discussion Juanis Osullivan, PIPE STEM REPAIRER,SEO EXECUTIVE documented in this encounter Miscellaneous Notes * [...] 4:00 PM EDT Office [place] [address] Kira Thayer MD [facility] [place] [address] documented as of this encounter Visit Diagnoses Diagnosis COPD, very severe Chronic airway obstruction, not elsewhere classified documented in this encounter Care Teams Chair Inspector And Leveler Relationship Specialty Start Date End Date Belkys Bundy DO [address] [place] [address] PCP - General Family Medicine 03/21/19 documented as of this encounter
--- OUTSIDE RECORDS SUMMARY | 2024-04-21 18:53 | XMS_ITS | Encounter Summary ---
[place] [address] Care Team Providers Care Floor Hand Name Role Phone Belkys Bundy Primary Care Provider +1- [phone] Reason for Visit * Reason Onset Date Comments Shortness of Breath 07/18/2020 Encounter Details Date Type Department Care Team (Late st Contact Info) Description 07/18/2020 Tele[place] [address] Emily Starr, RN Shortness of Breath Social History Tobacco [...] that she had COVID-19 testing done at [facility], however has not received results yet.RN called [facility] for results, and was notified that lab sampling was taken on 07/17/2020, and resultsare negative. Forwarding to Dr. Thayer for update. documented in this encounter Plan of Treatment Upcoming Encounters Date Type Department Care Team (Late st Contact Info) Description 08/27/2024 4:00 PM EDT Office [place] [address] Kira Thayer MD [facility] [place] [address] documented as of this encounter Visit Diagnoses Not on filedocumented in this encounter Care Teams Floor Hand Relationship Specialty Start Date End Date Belkys Bundy DO [address] [place] [address] PCP - General Family Medicine 03/21/19 documented as of this encounter
--- OUTSIDE RECORDS SUMMARY | 2024-04-21 18:54 | XMS_ITS | Encounter Summary ---
Author Organization [facility] [place] [address] Care Team Providers Care Market Specialist Name Role Phone Genet Sauer MD Primary Care Provider [phone] Encounter Details Date Type Department Care Team (Late st Contact Info) Description 06/07/2012 Orders [place] [address] Joao Interiano MD Social History Tobacco Use [...] 4:00 PM EDT [place] [address] Kira Thayer MD [facility] [place] [address] Pending Results Name Type Priority Associated Diagnoses Date /Time Film Library- Storage only DX Chest Imaging Routine 06/07/2012 4:19 PM EST documented as of this encounter Visit Diagnoses Not on filedocumented in this encounter Care Teams Market Specialist Relationship Specialty Start Date End Date Genet Sauer MD [facility] [address] [place] [address] [place] [address] PCP - General 09/11/12 06/18/13 documented as of this encounter
--- OUTSIDE RECORDS SUMMARY | 2024-04-21 18:54 | XMS_ITS | Referral Summary ---
Author Organization [facility] Address [address] [place] [address] Care Team Providers Care Mogul Operator Name Role Phone Genet Sauer MD Primary Care Provider [phone] Encounters Date Type Department Care Team Description 03/29/2024 Lab Requisition [facility] Pathology & Laboratory Medicine - [facility] [address] [place] [address] Outr Resulting Lab, Provider from Last 3 Months Social History Tobacco Use Types Packs/Day Years [...] file Plan of Treatment Not on file Procedures Procedure Name Priority Date/Time Associated Diagnosis Comments TACROLIMUS (FK506) Routine 03/29/2024 7:15 EST from Last 3 Months Results * TACROLIMUS (FK506) (03/29/2024 7:15 EST) Tacrolimus 8.2 See Note ng/mL 03/30/2024 13:03 EST [facility] Comment: NOTE: Tacrolimus Therapeutic Range: 3-12 ng/mL (The goal level is based on clinical context). Assayed utilizing Mahmood Chemiluminescent technology. ??Values obtained using different assay methods cannot be used interchangeably. Blood VENOUS BLOOD / Unknown 03/29/2024 7:15 EST 03/29/2024 17:17 EST us Provider Outr Resulting Lab CHEMISTRY & BLOOD GA S ORDERABLES Final Result [facility] [address] [place] [address] from Last 3 Months Insurance MEDICARE [place] Care Teams Mogul Operator Relationship Specialty Start Date End Date Genet Sauer MD [address] [place] [id number] PCP - General 09/19/12
--- OUTSIDE RECORDS SUMMARY | 2024-04-21 18:54 | XMS_ITS | Encounter Summary ---
Author Organization [facility] [place] [address] Care Team Providers Care Campus Administrator Name Role Phone Cathy Wu RYLAND Primary Care Provider [phone] Encounter Details Date Type Department Care Team (Late st Contact Info) Description 08/21/2012 Orders [place] [phone] Jennifer Burroughs APRN [facility] GASTROENTEROLOGY DEPT. [place], [place] [id number] Social History Tobacco Use Types Packs/Day Years [...] PM EDT Office [place] [address] Kira Thayer MD [facility] [place] [address] documented as of this encounter Procedures Procedure [...] Burroughs APRN IMSenait FILM LIBRARY ORD ERABLES [facility] [address] [facility] [place] [address] documented in this encounter Visit Diagnoses Not on filedocumented in this encounter Care Teams Campus Administrator Relationship Specialty Start Date End Date Cathy Wu APRN PCP - General 08/27/11 09/10/12 documented as of this encounter
--- OUTSIDE RECORDS SUMMARY | 2024-04-21 18:54 | XMS_ITS | Encounter Summary ---
Author Organization [place] [address] Care Team Providers Care Auto Apprentice Mechanic Name Role Phone CimarronJessie beckham Senait MARCELINO Primary Care Provider [phone] Reason for Visit * Reason Comments Referral Encounter Details Date Type Department Care Team (Late st Contact Info) Description 06/19/2013 2:30 PM EDT [place] [address] Daryl Hurt MD [facility] [address] Lung nodule (Primary Dx); COPD (chronic obstructive [...] imaging to be done here or at [facility]. * Woo Jiménez MD - 06/19/2013 10:48 AM EDT [facility] Section of Pulmonary and Critical Care Medicine Date of Encounter: 06/19/2013 Location: Office Referring Provider: Daryl Hurt Md [facility] [place] [address] C/C: Lung nodule HPI: 42 y/o female seen for recently discovered lung nodule. As per the patient she had COPD exacerbation for which she was admitted at [facility] in 01/2013. She was in hospital for about 4 days followingwhich she was discharged home on oxygen. She was not intubated during that visit. During that admission they found her to have a nodule in her lung. She was seen by pulmonary at [facility] and was told notto work due to [...] Lives with her mother. 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. Family History: Father alive 70 yrs and [...] comfortably, able to talk in full sentence BEACH LIFEGUARD: A and OX3, no focal motor deficits [...] CT CHEST. This can be done at [facility] or it can be done here at [facility]. Smoking cessation as discussed in #4. 2. [...] has been seeing smoking cessation program at [facility]. We did talk about it detail on today's visit and recommended cessation as the best thing she can do for herself. She can follow up with her human resources admin at [facility] or with us at [facility]. As this time no follow up appointment has been scheduled. Patient seen and examined with Dr Hurt. documented in this encounter Plan of Treatment Upcoming Encounters Date Type Department Care Team (Late st Contact Info) Description 08/27/2024 4:00 PM EDT [place] [address] Kira Thayer MD [facility] [address] documented as of this encounter Visit Diagnoses Diagnosis Lung nodule- Primary Solitary pulmonary nodule COPD (chronic obstructive pulmonary disease) Chronic airway obstruction, not elsewhere classified Smoking Tobacco use disorder Hypoxemia documented in this encounter Care Teams Auto Apprentice Mechanic Relationship Specialty Start Date End Date Jessie Dover APRN PCP - General 06/19/13 08/29/18 documented as of this encounter
--- OUTSIDE RECORDS SUMMARY | 2024-04-21 18:54 | XMS_ITS | Encounter Summary ---
Author Organization [facility] Address [address] [place] [address] Care Team Providers Care Animal Care Supervisor Name Role Phone Genet Sauer MD Primary Care Provider [phone] Encounter Details Date Type Department Care Team (Late st Contact Info) Description 06/30/2022 Lab Requisition [facility] Pathology & Laboratory Medicine - [address] [address] Karuna Santana, DO [address] [place], [place] [id number] Encounter for other general examination Social History [...] management options, if applicable. 07/06/2022 16:22 EDT [facility] Final Diagnosis A. SOFT TISSUE, ? LIPOMA? , SITE NOT FURTHER SPECIFIED, EXCISION: - Mature adipose tissue, consistent with lipoma. - Focal fibrous and fibrovascular tissue with no specific pathologic features. 07/06/2022 16:22 [facility] Attestation There was significant resident/fellow involvement in the diagnostic evaluation of this case. By the signature below, the attending physician certifies that they have personally conducted a gross and/or microscopic examination of the described specimens and rendered or confirmed the above diagnosis. 07/06/2022 16:22 [facility] at 1622 Clinical History Lipoma 07/06/2022 16:22 [facility] Gross Description A. Received [...] fibrous connective tissue without hemorrhage or necrosis. Mutual Fund Manager sections are submitted in A1 and A2. HEATHER DELVALLE([facility]) 06/30/2022 8:40 07/06/2022 16:22 [facility] Resident/Alec w: Enrrique Muñiz MD 07/06/2022 16:22 T [facility] Performing Lab [facility] 07/06/2022 16:22 T [facility] Scanned Images 07/06/2022 16:22 [facility] Tissue SOFT TISSUE / Unknown 06/29/2022 10:05 EDT 06/30/2022 8:24 EDT us Karuna Santana DO PATHOLOGY ORDERABLES Final Re sult [facility] [address] [place] [address] documented in this encounter Visit Diagnoses Diagnosis Encounter for other general examination documented in this encounter Care Teams Animal Care Supervisor Relationship Specialty Start Date End Date Genet Sauer MD [address] [place] [address] PCP - General 09/19/12 documented as of this encounter
--- OUTSIDE RECORDS SUMMARY | 2024-04-21 18:54 | XMS_ITS | Encounter Summary ---
[place] [address] Care Team Providers Care Oil Pit Attendant Name Role Phone Genet Sauer MD Primary Care Provider [phone] Encounter Details Date Type Department Care Team (Latest Contact Info) Description 01/09/2013 8:53 AM EDT - 01/09/2013 11:59 PM EDT Hospital Encounter [place] [phone] Genet Sauer MD [address] [place] [address] [address] [place], [place] [id number] Discharge Disposition: Home Social History Tobacco Use [...] 4:00 PM EDT [place] [address] Kira Thayer MD [facility] [place] [address] documented as of this encounter Procedures Procedure [...] Mid-thigh) Technique Procedure: Following IV injection of 37-svommc-1-deoxyglucose (FDG) and a standard uptake period, a [...] you for referring this patient to the [facility] PET Center Procedure Note Ammon Shea MD - 01/09/2013 Examination PET/CT STANDARD (Skull base to Mid-thigh) Technique Procedure: Following IV injection of 00-aslwkf-9-deoxyglucose (FDG) and a standard uptake period, a [...] you for referring this patient to the [facility] PET Center Genet Sauer MD IMG PET ORDERABLES * POCT Glucose (01/09/2013 9:12 AM EDT) Glucose, POC 90 60 - 199 mg/dL [facility] Comment: Supplemental ranges: <110 mg/dL before meals [...] mg documented in this encounter Care Teams Oil Pit Attendant Relationship Specialty Start Date End Date Genet Sauer MD [facility] [address] [place] [address] [place] [address] PCP - General 09/11/12 06/18/13 documented as of this encounter
--- OUTSIDE RECORDS SUMMARY | 2024-04-21 18:54 | XMS_ITS | Encounter Summary ---
Author Organization [facility] [place] [address] Care Team Providers Care Local Delivery Truck Driver Name Role Phone Jessie Dover RYLAND Primary Care Provider [phone] Encounter Details Date Type Department Care Team (Late st Contact Info) Description 07/18/2014 Orders [place] [address] Saad Chang Jr., MD [facility] [place] [address] Social History Tobacco Use Types Packs/Day Years [...] 4:00 PM EDT Office [place] [address] Kira Thayer MD [facility] [place] [address] documented as of this encounter Procedures Procedure [...] on filedocumented in this encounter Care Teams Local Delivery Truck Driver Relationship Specialty Start Date End Date Jessie Dover APRN PCP - General 06/19/13 08/29/18 documented as of this encounter
--- OUTSIDE RECORDS SUMMARY | 2024-04-21 18:54 | XMS_ITS | Encounter Summary ---
Author Organization [facility] [place] [address] Care Team Providers Care Licensed Physical Therapist Assistant Name Role Phone Genet Sauer MD Primary Care Provider [phone] Encounter Details Date Type Department Care Team (Late st Contact Info) Description 06/14/2013 External Results XRay at [address] [place] [phone] Provider, Scanning Social History Tobacco Use Types [...] 4:00 PM EDT Office Visit Pulmonology at [facility] [place] [address] Kira Thayer MD [facility] [place] [address] documented as of this encounter Procedures Procedure [...] on filedocumented in this encounter Care Teams Licensed Physical Therapist Assistant Relationship Specialty Start Date End Date Genet Sauer MD [facility] [address] [place] [address] [place] [address] PCP - General 09/11/12 06/18/13 documented as of this encounter
--- OUTSIDE RECORDS SUMMARY | 2024-04-21 18:54 | XMS_ITS | Encounter Summary ---
Author Organization [facility] [address] Care Team Providers Care Tank Erector Name Role Phone Genet Sauer MD Primary Care Provider [phone] Encounter Details Date Type Department Care Team (Late st Contact Info) Description 01/09/2011 Orders [place] [address] Joao Interiano MD Social History Tobacco Use [...] PM EDT Office [place] [address] Kira Thayer MD [facility] [place] [address] Pending Results Name Type Priority Associated Diagnoses Date /Time Film Library- Storage only DX Chest Imaging Routine 01/09/2011 4:35 PM EDT documented as of this encounter Visit Diagnoses Not on filedocumented in this encounter Care Teams Tank Erector Relationship Specialty Start Date End Date Genet Saeur MD [facility] [address] [place] [address] [address] [place] [address] PCP - General 09/11/12 06/18/13 documented as of this encounter
--- OUTSIDE RECORDS SUMMARY | 2024-04-21 18:54 | XMS_ITS | Encounter Summary ---
Author Organization [facility] [place] [address] Care Team Providers Care Sand Tester Name Role Phone Belkys Bundy DO Primary Care Provider [phone] Encounter Details Date Type Department Care Team (Late st Contact Info) Description 12/26/2008 [place] [address] Macie Carreon MD DERMATOLOGY Social History Tobacco [...] 4:00 PM EDT [place] [address] Kira Thayer MD [facility] [place] [address] documented as of this encounter Procedures Procedure Name Priority Date/Time Associated Diagnosis Comments SURGICAL PATHOLOGY REPORT Routine 12/26/2008 3:03 PM EDT documented in this encounter Results * Surgical Pathology Report (12/26/2008 3:03 PM EDT) Pathologist [facility] Surgical Pathology Report [id number] ? Location: 4M The signing pathologist has (i) examined the relevant preparation(s) for the specimen(s) and (ii) rendered or confirmed the diagnosis(es). . ?Pathology Surgical Pathology Final Report Clinical Information Specimen Submitted: A - Central upper back, Re-excision - Not Oriented (1): Clinical History: See previous path [id number] Clinical Diagnosis: Scar vs residual Gross Description [...] MD PATHOLOGY/CYTOLOG Y ORDERABLES Performing Organization Address City/State/[facility] Co de Phone Number [facility] documented in this encounter Visit Diagnoses Not on filedocumented in this encounter Care Teams Sand Tester Relationship Specialty Start Date End Date Belkys Bundy DO [address] [facility] [place] [address] PCP - General Family Medicine 03/21/19 documented as of this encounter
--- OUTSIDE RECORDS SUMMARY | 2024-04-21 18:54 | XMS_ITS | Encounter Summary ---
[place] [address] Care Team Providers Care Commissioned Defence Force Officer Name Role Phone Cathy Wu APRN Primary Care Provider [phone] Encounter Details Date Type Department Care Team (Late st Contact Info) Description 09/07/2012 External Results XRay at [address] [place] [address] Johan Riddle MD [address] [place] [address] Social History Tobacco Use Types Packs/Day Years [...] PM EDT Office Visit Pulmonology at [facility] [place] [address] Kira Thayer MD [facility] [place] [address] documented as of this encounter Procedures Procedure [...] on filedocumented in this encounter Care Teams Commissioned Defence Force Officer Relationship Specialty Start Date End Date Cathy Wu APRN PCP - General 08/27/11 09/10/12 documented as of this encounter
--- OUTSIDE RECORDS SUMMARY | 2024-04-21 18:54 | XMS_ITS | Encounter Summary ---
Author Organization [facility] [place] [address] Care Team Providers Care Optical Goods Drill Operator Name Role Phone Genet Sauer MD Primary Care Provider [phone] Encounter Details Date Type Department Care Team (Late st Contact Info) Description 08/12/2011 Orders [place] [address] Joao Interiano MD Social History Tobacco Use [...] 4:00 PM EDT [place] [address] Kira Thayer MD [facility] [place] [address] Pending Results Name Type Priority Associated Diagnoses Date /Time Film Library- Storage only DX Chest Imaging Routine 08/12/2011 4:33 PM EDT documented as of this encounter Visit Diagnoses Not on filedocumented in this encounter Care Teams Optical Goods Drill Operator Relationship Specialty Start Date End Date Genet Sauer MD [facility] [address] [place] [address] [address] [place] [id number] PCP - General 09/11/12 06/18/13 documented as of this encounter
--- OUTSIDE RECORDS SUMMARY | 2024-04-21 18:54 | XMS_ITS | Encounter Summary ---
Author Organization [facility] Address [address] [place] [address] Care Team Providers Care Corporate Relations Director Name Role Phone Genet Sauer MD Primary Care Provider [phone] Encounter Details Date Type Department Care Team (Late st Contact Info) Description 12/06/2020 Lab Requisition [facility] Pathology & Laboratory Medicine - [address] [address] Outr Resulting Lab, Provider Social History Tobacco [...] 1.7 - 2.8 mg/dL 12/07/2020 16:22 EDT [facility] Blood VENOUS BLOOD / Unknown 12/05/2020 12:00 EDT 12/07/2020 16:08 EDT us Provider Outr Resulting Lab CHEMISTRY & BLOOD GA S ORDERABLES Final Result [facility] [address] [place] [address] documented in this encounter Visit Diagnoses Not on filedocumented in this encounter Care Teams Corporate Relations Director Relationship Specialty Start Date End Date Genet Sauer MD [address] [place] [address] PCP - General 09/19/12 documented as of this encounter
--- OUTSIDE RECORDS SUMMARY | 2024-04-21 18:54 | XMS_ITS | Encounter Summary ---
Author Organization [facility] [place] [address] Care Team Providers Care Cost Accounting Clerk Name Role Phone Cathy Wu RYLAND Primary Care Provider [phone] Encounter Details Date Type Department Care Team (Late st Contact Info) Description 08/25/2012 Orders [place] [address] Jennifer Burroughs APRN [facility] GASTROENTEROLOGY [place] [address] Social History Tobacco Use Types Packs/Day Years [...] 4:00 PM EDT [place] [address] Kira Thayer MD [facility] PULMONARY [place] [address] documented as of this encounter Procedures Procedure [...] on filedocumented in this encounter Care Teams Cost Accounting Clerk Relationship Specialty Start Date End Date Cathy Wu APRN PCP - General 08/27/11 09/10/12 documented as of this encounter
--- OUTSIDE RECORDS SUMMARY | 2024-04-21 18:54 | XMS_ITS | Encounter Summary ---
Author Organization [facility] [place] [address] Care Team Providers Care Tumble Tailstock Turret Lathe Operator Name Role Phone Genet Sauer MD Primary Care Provider [phone] Encounter Details Date Type Department Care Team (Late st Contact Info) Description 11/11/2010 Orders [place] [address] Joao Interiano MD Social History Tobacco Use [...] 4:00 PM EDT Office [place] [address] Kira Thayer MD [facility] [place] [address] Pending Results Name Type Priority Associated Diagnoses Date /Time Film Library- Storage only DX Chest Imaging Routine 11/11/2010 4:36 PM EDT documented as of this encounter Visit Diagnoses Not on filedocumented in this encounter Care Teams Tumble Tailstock Turret Lathe Operator Relationship Specialty Start Date End Date Genet Sauer MD [facility] [address] [place] [address] [address] [place] [address] PCP - General 09/11/12 06/18/13 documented as of this encounter
--- OUTSIDE RECORDS SUMMARY | 2024-04-21 18:54 | XMS_ITS | Encounter Summary ---
Author Organization [facility] [place] [address] Care Team Providers Care Cna Instructor Name Role Phone Genet Sauer MD Primary Care Provider Reason for Visit * Reason Comments GI Problem Encounter Details Date Type Department Care Team (Late st Contact Info) Description 09/11/2012 2:30 PM EDT Office Visit [place] [address] Jennifer Burroughs APRN [facility] 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 [employer] OUTSIDE TESTIN08/10/2011 tprot 6.7, alb 4.0, ap [...] 4:00 PM EDT Office [place] [address] Kira Thayer MD [facility] [place] [address] documented as of this encounter Procedures Procedure Name Priority Date/Time Associated Diagnosis Comments .A1AT GENOTYPE Routine 09/11/2012 3:46 PM EDT Elevated liver function tests A1AT GENOTYPE PROFILE Routine 09/11/2012 3:46 PM EDT Elevated liver function tests DIFFERENTIAL, AUTOMATED Routine 09/11/2012 3:46 PM EDT IRON AND TIBC Routine 09/11/2012 3:46 PM EDT Elevated liver function tests [id number] Routine 09/11/2012 3 :46 PM EDT Elevated [...] resulting in the S phenotype ([id number].863 A>T; [id number]) and the Z phenotype (c. 1096G>A; [id number]) are amplified and genotyped by two separate [...] determined by the Molecular [facility]ology Laboratory at [facility]. This test is used for clinical purposes [...] MD CHEMISTRY ORDERABLE S Performing Organization Address [facility]/ZIP Co de Phone Number CERNER MILLENNIUM * [...] MD IMMUNOLOGY ORDERABL ES Performing Organization Address [facility] Co de Phone Number [facility] MILLENNIUM * A1AT Serum Concentration (09/11/2012 3:46 PM EDT) A1AT 146 100 - 190 mg/dL [facility] Comment: Test Performed by: [facility] [place] [address] [employer] Administrator: Celeste Stockton, Ph.D. Blood specimen (specimen) 09/11/2012 3:46 PM EDT 09/12/2012 7:30 AM EDT Narrative Resulting Agency Comment Spec In Lab Amadeo Rivera MD CHEMISTRY ORDERABLE S Performing Organization Address [facility] Co de Phone Number [facility] MILLENNIUM * Iron and TIBC (09/11/2012 3:46 PM EDT) Iron 77 30 - 150 mcg/dL CERNER MILLENNIUM TIBC 302 250 - 450 mcg/dL CERNER MILLENNIUM Iron Saturation 25 20 - 50 % [facility] MILLENNIUM Blood specimen (specimen) 09/11/2012 3:46 PM EDT 09/11/2012 3:54 PM EDT Narrative Resulting Agency Comment Spec In Lab Amadeo Rivera MD CHEMISTRY ORDERABLE S Performing Organization Address [facility] Co de Phone Number CERNER MILLENNIUM * Ferritin (09/11/2012 3:46 PM EDT) Ferritin 39 15 - 150 ng/mL CERNER MILLENNIUM Comment: Pediatric reference ranges not verified at [facility], interpret with caution. Reference ranges for females greater than 50 years of age approach values for men, i.e., 30-400 ng/mL. Blood specimen (specimen) 09/11/2012 3:46 PM EDT 09/11/2012 3:54 PM EDT Narrative Resulting Agency Comment Spec In Lab Amadeo Rivera MD CHEMISTRY ORDERABLE S Performing Organization Address [facility] Co de Phone Number [facility] * GISSELLE (09/11/2012 3:46 PM EDT) GISSELLE Neg Neg [facility] Blood specimen (specimen) 09/11/2012 3:46 PM EDT 09/12/2012 8:09 AM EDT Narrative Resulting Agency Comment Spec In Lab Amadeo Rivera MD LAB SEND OUT ORDERA BLES Performing Organization Address [facility] de Phone Number [facility] * Smooth Muscle Antibody (09/11/2012 3:46 PM EDT) Sm Muscle Ab (AUGUST) Negative Negative [facility] MILLENNIUM Comment: Test Performed by: [place] [address] [employer] Administrator: Ambrose Moreno III, M.D. Blood specimen (specimen) 09/11/2012 3:46 PM EDT 09/12/2012 7:25 AM EDT Narrative Resulting Agency Comment Spec In Lab Amadeo Rivrea MD LAB SEND OUT ORDERA BLES Performing Organization Address [facility] de Phone Number [facility] * Mitochondrial Antibody, M2 (09/11/2012 3:46 PM EDT) Mitochon Ab (AUGUST) <0.1 <0.1 (Negative) [facility] Comment: Test Performed by: [place] [address] [employer] Administrator: Ambrose Moreno III, M.D. Blood specimen (specimen) 09/11/2012 3:46 PM EDT 09/12/2012 7:25 AM EDT Narrative Resulting Agency Comment Spec In Lab Amadeo Rivera MD LAB SEND OUT ORDERA BLES [facility]ICHOLAS MORRISONI[facility] * IgA (09/11/2012 3:46 PM EDT) IgA 173 70 - 400 mg/dL CERNER MILLENNIUM Blood specimen (specimen) 09/11/2012 3:46 PM EDT 09/11/2012 3:54 PM EDT Narrative Resulting Agency Comment Spec In Lab Amadeo Rivera MD CHEMISTRY ORDERABLE S Performing Organization Address [facility]/ZIP Co de Phone Number NICHOLAS MORRISONIUM * (ABNORMAL) IgG (09/11/2012 3:46 PM EDT) Immunoglobulin G 688(L) 700 - 1,600 mg/dL [facility] Blood specimen (specimen) 09/11/2012 3:46 PM EDT 09/11/2012 3:54 PM EDT Narrative Resulting Agency Comment Spec In Lab Amadeo Rivera MD CHEMISTRY ORDERABLE S Performing Organization Address [facility] Co de Phone Number NICHOLAS GUILLERMOENNIUM * IgM (09/11/2012 3:46 PM EDT) IgM 59 40 - 230 mg/dL [facility] Blood specimen (specimen) 09/11/2012 3:46 PM EDT 09/11/2012 3:54 PM EDT Narrative Resulting Agency Comment Spec In Lab Amadeo Rivera MD CHEMISTRY ORDERABLE S [facility] E[facility] * Ceruloplasmin (09/11/2012 3:46 PM EDT) Ceruloplasmin 25.0 16.0 - 45.0 mg/dL [facility]ERNER MILLENNIUM Comment: Test Performed by: [facility] [address] [address] [employer] Administrator: Celeste Stockton, Ph.D. Blood specimen (specimen) 09/11/2012 3:46 PM EDT 09/12/2012 7:30 AM EDT Narrative Resulting Agency Comment Spec In Lab Amadeo Rivera MD CHEMISTRY ORDERABLE S Performing Organization Address City/[facility]/ZIP Co de Phone Number CERNER MILLENNIUM * (ABNORMAL) Hepatic Function Panel [...] MD CHEMISTRY ORDERABLE S Performing Organization Address [facility]/ZIP Co de Phone Number CERNER MILLENNIUM * [...] MD CHEMISTRY ORDERABLE S Performing Organization Address [facility] de Phone Number [facility] * Hepatitis B Surface Antigen (09/11/2012 3:46 PM EDT) Hepatitis B Surface Antigen Negative Negative [facility] Blood specimen (specimen) 09/11/2012 3:46 PM EDT 09/11/2012 3:54 PM EDT Narrative Resulting Agency Comment Spec In Lab Amadeo Rivera MD CHEMISTRY ORDERABLE S Performing Organization Address [facility] Co de Phone Number [facility] documented in this encounter Visit Diagnoses Diagnosis Elevated liver function tests- Primary Other abnormal blood chemistry documented in this encounter Care Teams Cna Instructor Relationship Specialty Start Date End Date Genet Sauer MD [facility] [address] [place] [address] [place] [address] PCP - General 09/11/12 06/18/13 documented as of this encounter
--- OUTSIDE RECORDS SUMMARY | 2024-04-21 18:54 | XMS_ITS | Encounter Summary ---
Author Organization [facility] [place] [address] Care Team Providers Care Airport Operations Manager Name Role Phone Genet Sauer MD Primary Care Provider [phone] Encounter Details Date Type Department Care Team (Late st Contact Info) Description 01/04/2013 External Results XRay at [address] [place] [phone] Provider, Scanning Social History Tobacco Use Types [...] 4:00 PM EDT Office Visit Pulmonology at [facility] [place] [address] Kira Thayer MD [facility] [place] [address] documented as of this encounter Procedures Procedure [...] on filedocumented in this encounter Care Teams Airport Operations Manager Relationship Specialty Start Date End Date Genet Sauer MD [facility] [address] [place] [address] [place] [address] PCP - General 09/11/12 06/18/13 documented as of this encounter
--- OUTSIDE RECORDS SUMMARY | 2024-04-21 18:54 | XMS_ITS | Encounter Summary ---
Author Organization [facility] [place] [address] Care Team Providers Care Contracting Manager Name Role Phone Genet Sauer MD Primary Care Provider Encounter Details Date Type Department Care Team (Late st Contact Info) Description 12/31/2012 Orders Only [place] [address] Joao Interiano MD Social History Tobacco Use [...] 4:00 PM EDT Office Visit [place] [address] Kira Thayer MD [facility] [place] [address] Pending Results Name Type Priority Associated Diagnoses Date /Time Film Library- Storage only DX Chest Imaging Routine 12/31/2012 4:17 PM EDT documented as of this encounter Visit Diagnoses Not on filedocumented in this encounter Care Teams Contracting Manager Relationship Specialty Start Date End Date Genet Sauer MD [facility] [address] [place] [address] [place] [address] PCP - General 09/11/12 06/18/13 documented as of this encounter
--- OUTSIDE RECORDS SUMMARY | 2024-04-21 18:54 | XMS_ITS | Encounter Summary ---
Author Organization [facility] [place] [address] Care Team Providers Care Manufacturing Maintenance Manager Name Role Phone Jessie Dover RYLAND Primary Care Provider [phone] Encounter Details Date Type Department Care Team (Late st Contact Info) Description 08/13/2014 [place] [phone] Saad Chang Jr., MD [facility] [place] [address] Social History Tobacco Use Types Packs/Day Years [...] 4:00 PM EDT Office [place] [address] Kira Thayer MD [facility] [place] [address] documented as of this encounter Visit Diagnoses Not on filedocumented in this encounter Care Teams Manufacturing Maintenance Manager Relationship Specialty Start Date End Date Jessie Dover APRN PCP - General 06/19/13 08/29/18 documented as of this encounter
--- OUTSIDE RECORDS SUMMARY | 2024-04-21 18:54 | XMS_ITS | Encounter Summary ---
Author Organization [facility] [place] [address] Care Team Providers Care Clerical Warehouse Worker Name Role Phone Genet Sauer MD Primary Care Provider [phone] Encounter Details Date Type Department Care Team (Late st Contact Info) Description 12/21/2011 Orders [place] [address] Joao Interiano MD Social History Tobacco Use [...] 4:00 PM EDT [place] [address] Kira Thayer MD [facility] PULMONARY MEDICINE [place] [id number] Pending Results Name Type Priority Associated Diagnoses Date /Time Film Library- Storage only DX Abdomen Imaging Routine 12/21/2011 4:31 PM EDT documented as of this encounter Visit Diagnoses Not on filedocumented in this encounter Care Teams Clerical Warehouse Worker Relationship Specialty Start Date End Date Genet Sauer MD [facility] [address] [place] [address] PCP - General 09/11/12 06/18/13 documented as of this encounter
--- OUTSIDE RECORDS SUMMARY | 2024-04-21 18:54 | XMS_ITS | Encounter Summary ---
Author Organization [facility] Address [address] [place] [address] Care Team Providers Care Garment Parts Cutter Hand Name Role Phone Genet Sauer MD Primary Care Provider Encounter Details Date Type Department Care Team (Late st Contact Info) Description 08/07/2022 Lab Requisition [facility] Pathology & Laboratory Medicine - [address] [address] Outr Resulting Lab, Provider Social History Tobacco [...] Salmonella PCR Unresolved Negative 08/09/2022 11:46 EDT [facility] Comment:An UNRESOLVED or IND ETERMINATE [...] E. coli Unresolved Negative 08/09/2022 11:46 T [facility] Comment:An UNRESOLVED or IND ETERMINATE [...] CAMPYLOBACTER PCR Unresolved Negative 08/09/2022 11:46 EDT [facility] Comment:An UNRESOLVED or IND ETERMINATE [...] Shiga Toxin PCR Unresolved Negative 11:46 T [facility] Comment:An UNRESOLVED or IND ETERMINATE [...] MICROBIOLOGY - GENER AL ORDERABLES Final Result [facility] [address] [place] [address] documented in this encounter Visit Diagnoses Not on filedocumented in this encounter Care Teams Garment Parts Cutter Hand Relationship Specialty Start Date End Date Genet Sauer MD [address] [place] [address] PCP - General 09/19/12 documented as of this encounter
--- OUTSIDE RECORDS SUMMARY | 2024-04-21 18:54 | XMS_ITS | Encounter Summary ---
Author Organization [facility] [place] [address] Care Team Providers Care Sql Report Developer Name Role Phone KandiyohiJessie beckham Senait MARCELINO Primary Care Provider [phone] Reason for Visit * Reason Comments Follow-up Encounter Details Date Type Department Care Team (Late st Contact Info) Description 08/21/2014 9:30 AM EDT [place] [address] Saad Chang Jr., MD [facility] [place] [address] Flank pain Discharge Disposition: Home Social History [...] this, she had a repeat ultrasound at [facility] and thissuggested an 8 mm non-obstructing stone [...] pack years Disabled 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
--- OUTSIDE RECORDS SUMMARY | 2024-04-21 18:54 | XMS_ITS | Encounter Summary ---
Author Organization [facility] [place] [address] Care Team Providers Care Medical Clerical Assistant Name Role Phone Cathy Wu RYLAND Primary Care Provider [phone] Encounter Details Date Type Department Care Team (Late st Contact Info) Description 08/21/2012 Orders [place] [phone] Jennifer Burroughs APRN [facility] GASTROENTEROLOGY DEPT. [place], [place] [phone] Social History Tobacco Use Types Packs/Day Years [...] 4:00 PM EDT Office [place] [address] Kira Thayer MD [facility] [place] [address] documented as of this encounter Procedures Procedure [...] filedocumented in this encounter Care Teams Medical Clerical Assistant Relationship Specialty Start Date End Date Cathy Wu APRN PCP - General 08/27/11 09/10/12 documented as of this encounter
--- OUTSIDE RECORDS SUMMARY | 2024-04-21 18:54 | XMS_ITS | Encounter Summary ---
Author Organization [facility] [place] [address] Care Team Providers Care Slip Cover Sewer Name Role Phone Genet Davila MD Primary Care Provider [phone] Encounter Details Date Type Department Care Team (Latest Contact Info) Description 02/18/2011 2:59 PM EST - 02/18/2011 11:59 PM EST Hospital [place] [address] CLINIC, Genet Espino MD [address] [place] [address] [address] [place], [place] [id number] Discharge Disposition: Home Social History Tobacco Use [...] Sanchez AGE: 40 y.o. 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 BEFORE SCHEDULED SCAN AND HAVE A TREASURY ANALYST AVAILABLE. PT STATED TO BRAKE DRUM LATHE OPERATOR THAT THE SEDATION WAS EFFECTIVE FOR SCAN: Y N documented in this encounter Miscellaneous Notes * Miscellaneous - Provider, Scanning - 03/02/2011 9:12 AM EST documented in this encounter Plan of Treatment Upcoming Encounters Date Type Department Care Team (Late st Contact Info) Description 08/27/2024 4:00 PM EDT [place] [phone] Kira Thayer MD [facility] [place] [address] documented as of this encounter Visit Diagnoses [...] mg documented in this encounter Care Teams Slip Cover Sewer Relationship Specialty Start Date End Date Genet Davila MD [facility] [address] [place] [address] [place] [address] PCP - General 03/03/10 08/26/11 documented as of this encounter
--- OUTSIDE RECORDS SUMMARY | 2024-04-21 18:54 | XMS_ITS | Encounter Summary ---
Author Organization [facility] Address [address] [place] [address] Care Team Providers Care Claim Clerk Name Role Phone Genet Sauer MD Primary Care Provider Encounter Details Date Type Department Care Team (Late st Contact Info) Description 12/06/2020 Lab Requisition [facility] Pathology & Laboratory Medicine - [address] [address] Outr Resulting Lab, Provider Social History Tobacco [...] ANCA Interpretation Negative Negative 12/08/2020 15:59 EDT [facility] Comment: No titer performed, ANCA Screen is negative. Results were obtained with the INOVA NOVA Lite ANCA kit by indirect immunofluorescence. Blood VENOUS BLOOD / Unknown 12/05/2020 12:00 EDT 12/07/2020 16:08 EDT us Provider Outr Resulting Lab IMMUNOLOGY AND SEROL OGY ORDERABLES Final Result [facility] [address] [place] [address] documented in this encounter Visit Diagnoses Not on filedocumented in this encounter Care Teams Claim Clerk Relationship Specialty Start Date End Date Genet Sauer MD [address] [place] [address] PCP - General 09/19/12 documented as of this encounter
--- OUTSIDE RECORDS SUMMARY | 2024-04-21 18:54 | XMS_ITS | Encounter Summary ---
Author Organization [facility] [place] [address] Care Team Providers Care Energy Derivatives Trader Name Role Phone Jessie Dover RYLAND Primary Care Provider [phone] Encounter Details Date Type Department Care Team (Late st Contact Info) Description 06/19/2013 [place] [phone] Daryl Hurt MD [facility] [place] [address] Social History Tobacco Use Types Packs/Day Years [...] 4:00 PM EDT [place] [address] Kira Thayer MD [facility] [place] [address] documented as of this encounter Results * [...] exacerbation documented in this encounter Care Teams Energy Derivatives Trader Relationship Specialty Start Date End Date Jessie Dover APRN PCP - General 06/19/13 08/29/18 documented as of this encounter
--- OUTSIDE RECORDS SUMMARY | 2024-04-21 18:54 | XMS_ITS | Encounter Summary ---
Author Organization [facility] Address [address] [place] [address] Care Team Providers Care Ink Blender Name Role Phone Genet Sauer MD Primary Care Provider [phone] Encounter Details Date Type Department Care Team (Late st Contact Info) Description 04/30/2021 Lab Requisition [facility] Pathology & Laboratory Medicine - [address] [address] Outr Resulting Lab, Provider Social History Tobacco [...] MICROBIOLOGY - GENER AL ORDERABLES Final Result [facility] [address] [place] [address] * COVID-19 TESTING (04/30/2021 9:00 EST) COVID-19 rt-PCR Result Negative Negative 05/01/2021 17:04 EST [facility] Comment: This test has not [...] performed using the rubi SARS-CoV-2 assay ([employer] on the Rubi 6800 System Performing Lab Rubi [address] [facility] Lab 05/01/2021 17:04 EST [facility] Swab 04/30/2021 9:00 EST 04/30/2021 22:14 EST us Provider Outr Resulting Lab MICROBIOLOGY - GENER AL ORDERABLES Final Result [facility] [address] [place] [address] documented in this encounter Visit Diagnoses Not on filedocumented in this encounter Care Teams Ink Blender Relationship Specialty Start Date End Date Genet Sauer MD [address] [place] [address] PCP - General 09/19/12 documented as of this encounter
--- OUTSIDE RECORDS SUMMARY | 2024-04-21 18:54 | XMS_ITS | Encounter Summary ---
Author Organization [facility] [place] [address] Care Team Providers Care Returned Case Inspector Name Role Phone Jessie Dover RYLAND Primary Care Provider [phone] Encounter Details Date Type Department Care Team (Late st Contact Info) Description 07/11/2014 [place] [address] Saad Chang Jr., MD [facility] [place] [address] Social History Tobacco Use Types Packs/Day Years [...] 4:00 PM EDT [place] [address] Kira Thayer MD [facility] [address] documented as of this encounter Procedures Procedure [...] on filedocumented in this encounter Care Teams Returned Case Inspector Relationship Specialty Start Date End Date Jessie Dover APRN PCP - General 06/19/13 08/29/18 documented as of this encounter
--- OUTSIDE RECORDS SUMMARY | 2024-04-21 18:54 | XMS_ITS | Encounter Summary ---
Author Organization [facility] [place] [address] Care Team Providers Care Windows Software Developer Name Role Phone Genet Sauer MD Primary Care Provider [phone] Encounter Details Date Type Department Care Team (Late st Contact Info) Description 10/07/2008 Orders [place] [address] Joao Interiano MD Social History Tobacco Use [...] 4:00 PM EDT [place] [address] Kira Thayer MD [facility] [place] [address] Pending Results Name Type Priority Associated Diagnoses Date /Time Film Library- Storage only DX Chest Imaging Routine 10/07/2008 4:58 PM EDT documented as of this encounter Visit Diagnoses Not on filedocumented in this encounter Care Teams Windows Software Developer Relationship Specialty Start Date End Date Genet Sauer MD HOSPITALIST [facility] [address] [place] [address] [place] [address] PCP - General 09/11/12 06/18/13 documented as of this encounter
--- OUTSIDE RECORDS SUMMARY | 2024-04-21 18:54 | XMS_ITS | Encounter Summary ---
Author Organization [facility] [place] [address] Care Team Providers Care Heating Technician Name Role Phone Genet Sauer MD Primary Care Provider [phone] Encounter Details Date Type Department Care Team (Late st Contact Info) Description 06/01/2013 Orders [place] [phone] Joao Interiano MD Social History Tobacco Use [...] EDT Office [place] [address] Kira Thayer MD [facility] [place] [address] Pending Results Name Type Priority Associated Diagnoses Date /Time Film Library- Storage only CT Chest Imaging Routine 06/01/2013 4:13 PM EST documented as of this encounter Visit Diagnoses Not on filedocumented in this encounter Care Teams Heating Technician Relationship Specialty Start Date End Date Genet Sauer MD [facility] [address] [place] [address] [place] [address] PCP - General 09/11/12 06/18/13 documented as of this encounter
--- OUTSIDE RECORDS SUMMARY | 2024-04-21 18:54 | XMS_ITS | Encounter Summary ---
Author Organization [facility] [place] [address] Care Team Providers Care Attendance Secretary Name Role Phone Belkys Bundy DO Primary Care Provider [phone] Encounter Details Date Type Department Care Team (Late st Contact Info) Description 12/11/2008 [place] [address] Macie Carreon MD DERMATOLOGY Social History Tobacco [...] 4:00 PM EDT Office [place] [address] Kira Thayer MD [facility] [place] [address] documented as of this encounter Procedures Procedure Name Priority Date/Time Associated Diagnosis Comments SURGICAL PATHOLOGY REPORT Routine 12/11/2008 3:44 PM EDT documented in this encounter Results * Surgical Pathology Report (12/11/2008 3:44 PM EDT) Pathologist [facility] Surgical Pathology Report [id number] ? Location: 4M The signing pathologist has [...] and confirm Dr. Nick Perdomo's diagnosis. 12/12/08 ETHAN 12/13/08 Verified by: ? Brian Pinzon MD ?Dermatopathologis t ?(Electronic Signature) The attending pathologist whose signature appears on this report has reviewed all diagnostic slides and has edited the gross and/or microscopic portion of the report in rendering the final pathologic diagnosis. NICHOLAS GREENBERG 12/11/2008 3:44 PM EDT Macie Carreon MD PATHOLOGY/CYTOLOG Y ORDERABLES Performing Organization Address City/State/[facility] Co de Phone Number NICHOLAS GREENBERG documented in this encounter Visit Diagnoses Not on filedocumented in this encounter Care Teams Attendance Secretary Relationship Specialty Start Date End Date Belkys Bundy DO [address] [facility] [place] [address] PCP - General Family Medicine 03/21/19 documented as of this encounter
--- OUTSIDE RECORDS SUMMARY | 2024-04-21 18:54 | XMS_ITS | Encounter Summary ---
[place] [address] Care Team Providers Care Ship Engines Operating Engineer Name Role Phone Cathy Wu RYLAND Primary Care Provider [phone] Reason for Visit * Reason Comments Rash Encounter Details Date Type Department Care Team (Late st Contact Info) Description 08/27/2011 3:30 PM EDT Office Visit Dermatology [address] [place] [address] [address] [place] [address] Deven Payan MD [address], [place] [address] Pruritus (Primary Dx) Social History Tobacco Use [...] house has no itching. She works at [employer] in [employer] services, and she states there is a woman [...] 4:00 PM EDT Office [place] [address] Kira Thayer MD [facility] [place] [address] documented as of this encounter Visit Diagnoses Diagnosis Pruritus- Primary Unspecified pruritic disorder documented in this encounter Care Teams Ship Engines Operating Engineer Relationship Specialty Start Date End Date Cathy Wu APRN PCP - General 08/27/11 09/10/12 documented as of this encounter
--- OUTSIDE RECORDS SUMMARY | 2024-04-21 18:54 | XMS_ITS | Encounter Summary ---
Author Organization [facility] Address [address] [place] [address] Care Team Providers Care Hazardous Waste Technician Name Role Phone Genet Saure MD Primary Care Provider [phone] Encounter Details Date Type Department Care Team (Late st Contact Info) Description 07/17/2020 Lab Requisition [facility] Pathology & Laboratory Medicine - [address] [address] Outr Resulting Lab, Provider Social History Tobacco [...] AL ORDERABLES Final Result Performing Organization Address City/State/[facility] Co de Phone Number [facility] [address] [place] [address] * COVID-19 TESTING (07/17/2020 10:43 EDT) COVID-19 rt-PCR Result Negative Negative 07/18/2020 12:48 EDT [facility] Comment: This test has [...] performed using the rubi SARS-CoV-2 assay ([employer] on the Rubi 6800 System Performing Lab Rubi [address] [facility] Lab 07/18/2020 12:48 EDT [facility] Swab 07/17/2020 10:4 3 EDT 07/17/2020 20:09 EDT us Provider Outr Resulting Lab MICROBIOLOGY - GENER AL ORDERABLES Final Result Performing Organization Address [facility] Co de Phone Number [facility] [address] [place] [address] documented in this encounter Visit Diagnoses Not on filedocumented in this encounter Care Teams Hazardous Waste Technician Relationship Specialty Start Date End Date Genet Sauer MD [address] [place] [address] PCP - General 09/19/12 documented as of this encounter
--- OUTSIDE RECORDS SUMMARY | 2024-04-21 18:54 | XMS_ITS | Encounter Summary ---
Author Organization [facility] [place] [address] Care Team Providers Care Labeling Associate Name Role Phone Jessie Dover RYLAND Primary Care Provider [phone] Encounter Details Date Type Department Care Team (Late st Contact Info) Description 05/03/2014 [place] [address] Saad Chang Jr., MD [facility] [place] [address] Social History Tobacco Use Types Packs/Day Years [...] PM EDT Office [place] [address] Kira Thayer MD [facility] [place] [address] documented as of this encounter Procedures Procedure [...] on filedocumented in this encounter Care Teams Labeling Associate Relationship Specialty Start Date End Date Jessie Dover APRN PCP - General 06/19/13 08/29/18 documented as of this encounter
--- OUTSIDE RECORDS SUMMARY | 2024-04-21 18:54 | XMS_ITS | Encounter Summary ---
Author Organization [facility] [place] [address] Care Team Providers Care Sheeting Puller Name Role Phone [place]ie beckham Senait MARCELINO Primary Care Provider [phone] Reason for Visit * Reason Comments Nephrolithiasis Encounter Details Date Type Department Care Team (Latest Contact Info) Description 08/13/2014 3:20 PM EDT [place] [address] Kaiser Chang Jr., MD [facility] [place] [address] Recurrent nephrolithiasis Discharge Disposition: Home Social History [...] 6:00 PM EDT I saw and examined Jesise Sanchez with Dr. 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
--- OUTSIDE RECORDS SUMMARY | 2024-04-21 18:54 | XMS_ITS | Encounter Summary ---
Author Organization [facility] [place] [address] Care Team Providers Care Quality Control Supervisor Name Role Phone Genet Sauer MD Primary Care Provider [phone] Encounter Details Date Type Department Care Team (Late st Contact Info) Description 01/02/2013 Orders Only [place] [address] Sammie Johnson MD [facility] [place] [address] Social History Tobacco Use Types Packs/Day Years [...] 4:00 PM EDT Office [place] [address] Kira Thayer MD [facility] [place] [address] documented as of this encounter Procedures Procedure [...] Johnson MD IMG FILM LIBRARY ORD ERABLES [facility] [address] [place] [address] documented in this encounter Visit Diagnoses Not on filedocumented in this encounter Care Teams Quality Control Supervisor Relationship Specialty Start Date End Date Genet Sauer MD [facility] [address] [place] [address] [place] [address] PCP - General 09/11/12 06/18/13 documented as of this encounter
--- OUTSIDE RECORDS SUMMARY | 2024-04-21 18:54 | XMS_ITS | Encounter Summary ---
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
--- OUTSIDE RECORDS SUMMARY | 2024-04-21 18:54 | XMS_ITS | Encounter Summary ---
Author Organization [facility] [place] [address] Care Team Providers Care Superintendent Communications Name Role Phone Genet Sauer MD Primary Care Provider [phone] Encounter Details Date Type Department Care Team (Late st Contact Info) Description 04/30/2009 [place] [address] Joao Interiano MD Social History Tobacco Use [...] 4:00 PM EDT [place] [address] Kira Thayer MD [facility] [place] [address] Pending Results Name Type Priority Associated Diagnoses Date /Time Film Library- Storage only DX Chest Imaging Routine 04/30/2009 4:57 PM EST documented as of this encounter Visit Diagnoses Not on filedocumented in this encounter Care Teams Superintendent Communications Relationship Specialty Start Date End Date Genet Sauer MD [facility]OSPITALIST SERVICES [address] [place] [address] [place] [address] PCP - General 09/11/12 06/18/13 documented as of this encounter
--- OUTSIDE RECORDS SUMMARY | 2024-04-21 18:54 | XMS_ITS | Encounter Summary ---
Author Organization [facility] [place] [address] Care Team Providers Care Map Compiler Name Role Phone Genet Sauer MD Primary Care Provider [phone] Encounter Details Date Type Department Care Team (Late st Contact Info) Description 08/23/2009 Orders [place] [address] Joao Interiano MD Social History Tobacco Use [...] 4:00 PM EDT Office [place] [address] Kira Thayer MD [facility] [place] [address] Pending Results Name Type Priority Associated Diagnoses Date /Time Film Library- Storage only DX Chest Imaging Routine 08/23/2009 4:55 PM EDT documented as of this encounter Visit Diagnoses Not on filedocumented in this encounter Care Teams Map Compiler Relationship Specialty Start Date End Date Genet Sauer MD [facility]IST [facility] [address] [place] [address] [address] [place] [address] PCP - General 09/11/12 06/18/13 documented as of this encounter
--- OUTSIDE RECORDS SUMMARY | 2024-04-21 18:54 | XMS_ITS | Encounter Summary ---
Author Organization [facility] [place] [address] Care Team Providers Care Sand Wheeler Name Role Phone Belkys Bundy DO Primary Care Provider [phone] Encounter Details Date Type Department Care Team (Late st Contact Info) Description 01/01/2009 [place] [address] Macie Carreon MD DERMATOLOGY Social History Tobacco [...] 4:00 PM EDT [place] [address] Kira Thayer MD [facility] [address] [place] [address] documented as of this encounter Procedures Procedure Name Priority Date/Time Associated Diagnosis Comments SURGICAL PATHOLOGY REPORT Routine 01/01/2009 3:08 PM EDT documented in this encounter Results * Surgical Pathology Report (01/01/2009 3:08 PM EDT) Surgical Pathology Report [id number] ? Location: 4M The signing pathologist has [...] report in rendering the final pathologic diagnosis. [facility] 01/01/2009 3:08 PM EDT Macie Carreon MD PATHOLOGY/CYTOLOG Y ORDERABLES Performing Organization Address City/State/[facility] Co [place] Phone Number [facility] documented in this encounter Visit Diagnoses Not on filedocumented in this encounter Care Teams [place] Relationship Specialty Start Date End Date Belkys Bundy DO [address] [facility] [place] [address] PCP - General Family Medicine 03/21/19 documented as of this encounter
--- OUTSIDE RECORDS SUMMARY | 2024-04-21 18:54 | XMS_ITS | Encounter Summary ---
[place] [address] Care Team Providers Care Educational Adviser Name Role Phone JazzmineBonniegus Sapp APRN Primary Care Provider [phone] Encounter Details Date Type Department Care Team (Latest Contact Info) Description 08/21/2014 7:26 AM EDT - 08/21/2014 11:59 PM EDT Hospital [place] [address] Recurrent nephrolithiasis Social History Tobacco Use Types [...] 4:00 PM EDT Office [place] [address] Kira Thayer MD [facility] [address] [place] [address] documented as of this encounter Procedures Procedure [...] kidney documented in this encounter Care Teams Educational Adviser Relationship Specialty Start Date End Date Jessie Dover APRN PCP - General 06/19/13 08/29/18 documented as of this encounter
--- OUTSIDE RECORDS SUMMARY | 2024-04-21 18:54 | XMS_ITS | Clinical Summary ---
Author Organization [facility] Address [address] [place] [address] Care Team Providers Care Instructional Consultant Name Role Phone Genet Sauer MD Primary Care Provider [phone] Encounters Date Type Department Care Team Description 03/29/2024 Lab Requisition [facility] Pathology & Laboratory Medicine - [facility] [address] [place] [address] Outr Resulting Lab, Provider from Last 3 [...] series) 09/05 COVID-19 Vaccine ( season) 2023 Procedures Procedure Name Priority Date/Time Associated Diagnosis Comments TACROLIMUS (FK506) Routine 03/29/2024 7:15 EST from Last 3 Months Results * TACROLIMUS (FK506) (03/29/2024 7:15 EST) Tacrolimus 8.2 See Note ng/mL 03/30/2024 13:03 EST [facility] Comment: NOTE: Tacrolimus Therapeutic Range: 3-12 ng/mL (The goal level is based on clinical context). Assayed utilizing Mahmood Chemiluminescent technology. ??Values obtained using different assay methods cannot be used interchangeably. Blood VENOUS BLOOD / Unknown 03/29/2024 7:15 EST 03/29/2024 17:17 EST us Provider Outr Resulting Lab CHEMISTRY & BLOOD GA S ORDERABLES Final Result [facility] [address] [place], [place] [address] from Last 3 Months Insurance MEDICARE [employer] [place] Care Teams Instructional Consultant Relationship Specialty Start Date End Date Genet Sauer MD [address] [place] [address] PCP - General 09/19/12
--- OUTSIDE RECORDS SUMMARY | 2024-04-21 18:54 | XMS_ITS | Encounter Summary ---
Author Organization [facility] Address [address] [place] [address] Care Team Providers Care Supervisor Boiler Repair Name Role Phone Genet Sauer MD Primary Care Provider [phone] Encounter Details Date Type Department Care Team (Late st Contact Info) Description 03/29/2024 Lab Requisition [facility] Pathology & Laboratory Medicine - [address] [address] Outr Resulting Lab, Provider Social History Tobacco [...] Comments TACROLIMUS (FK506) Routine 03/29/2024 7:15 EST documented in this encounter Results * TACROLIMUS (FK506) (03/29/2024 7:15 EST) Tacrolimus 8.2 See Note ng/mL 03/30/2024 13:03 EST [facility] Comment: NOTE: Tacrolimus Therapeutic Range: 3-12 ng/mL (The goal level is based on clinical context). Assayed utilizing [employer]mood Chemiluminescent technology. ??Values obtained using different assay methods cannot be used interchangeably. Blood VENOUS BLOOD / Unknown 03/29/2024 7:15 EST 03/29/2024 17:17 EST us Provider Outr Resulting Lab CHEMISTRY & BLOOD GA S ORDERABLES Final Result [facility] [address] [place], [place] [id number] documented in this encounter Visit Diagnoses Not on filedocumented in this encounter Care Teams Supervisor Boiler Repair Relationship Specialty Start Date End Date Genet Sauer MD [address] [place] [address] PCP - General 09/19/12 documented as of this encounter
--- OUTSIDE RECORDS SUMMARY | 2024-04-21 18:54 | XMS_ITS | Encounter Summary ---
Author Organization [facility] [place] [address] Care Team Providers Care Meat Cutting Teacher Name Role Phone Genet Sauer MD Primary Care Provider [phone] Reason for Visit * Reason Comments Follow-up Encounter Details Date Type Department Care Team (Late st Contact Info) Description 10/09/2012 10:00 AM EDT Follow-[place] [address] Jennifer Burroughs APRN [facility] 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 OUTSIDE TESTIN08/10/2011 tprot 6.7, alb 4.0, [...] 4:00 PM EDT Office [place] [address] Kira Thayer MD [facility] [place] [address] documented as of this encounter Visit Diagnoses Diagnosis Elevated liver function tests- Primary Other abnormal blood chemistry documented in this encounter Care Teams Meat Cutting Teacher Relationship Specialty Start Date End Date Genet Sauer MD [facility]IST SERVICES [address] [place] [address] [place] [address] PCP - General 09/11/12 06/18/13 documented as of this encounter
--- OUTSIDE RECORDS SUMMARY | 2024-04-21 18:54 | XMS_ITS | Encounter Summary ---
Author Organization [facility] [place] [address] Care Team Providers Care Banking Attorney Name Role Phone Jessie Dover RYLAND Primary Care Provider [phone] Encounter Details Date Type Department Care Team (Late st Contact Info) Description 05/07/2014 [place] [address] Saad Chang Jr., MD [facility] [place] [address] Social History Tobacco Use Types Packs/Day Years [...] 4:00 PM EDT Office [place] [address] Kira Thayer MD [facility] [place] [address] documented as of this encounter Procedures Procedure [...] on filedocumented in this encounter Care Teams Banking Attorney Relationship Specialty Start Date End Date Jessie Dover APRN PCP - General 06/19/13 08/29/18 documented as of this encounter
--- OUTSIDE RECORDS SUMMARY | 2024-04-21 18:54 | XMS_ITS | Encounter Summary ---
Author Organization [facility] [place] [address] Care Team Providers Care Clinical Marketing Manager Name Role Phone Genet Sauer MD Primary Care Provider Encounter Details Date Type Department Care Team (Late st Contact Info) Description 01/12/2010 [place] [address] Joao Interiano MD Social History Tobacco Use [...] 4:00 PM EDT [place] [address] Kira Thayer MD [facility] [place] [address] Pending Results Name Type Priority Associated Diagnoses Date /Time Film Library- Storage only DX Chest Imaging Routine 01/12/2010 4:51 PM EDT documented as of this encounter Visit Diagnoses Not on filedocumented in this encounter Care Teams Clinical Marketing Manager Relationship Specialty Start Date End Date Genet Sauer MD HOSPITALIST SERVICES [address] [place] [address] [address] [place] [address] PCP - General 09/11/12 06/18/13 documented as of this encounter
--- OUTSIDE RECORDS SUMMARY | 2024-04-21 18:54 | XMS_ITS | Encounter Summary ---
Author Organization [facility] Address [address] [place] [address] Care Team Providers Care Combine Driver Name Role Phone Genet Sauer MD Primary Care Provider [phone] Encounter Details Date Type Department Care Team (Late st Contact Info) Description 01/15/2020 Lab Requisition [facility] Pathology & Laboratory Medicine - [address] [address] Outr Resulting Lab, Provider Social History Tobacco [...] ova and parasites seen. 01/16/2020 14:31 EDT [facility] Feces SPECIMEN FROM RECTUM / Unknown 01/14/2020 17:56 EDT 01/15/2020 20:38 EDT Narrative [facility] - 01/16/2020 14:31 EDT (If Cryptosporidium, Cyclospora, or Microsporidium are suspected, specific tests must be requested.) Single negative specimen does not rule out the possibility of a parasitic infection. us Provider Outr Resulting Lab MICROBIOLOGY - GENER AL ORDERABLES Final Result [facility] [address] [place] [address] documented in this encounter Visit Diagnoses Not on filedocumented in this encounter Care Teams Combine Driver Relationship Specialty Start Date End Date Genet Sauer MD [address] [place] [address] PCP - General 09/19/12 documented as of this encounter
--- OUTSIDE RECORDS SUMMARY | 2024-04-21 18:54 | XMS_ITS | Encounter Summary ---
Author Organization [facility] [place] [address] Care Team Providers Care Zigzag Machine Operator Name Role Phone Cathy Wu RYLAND Primary Care Provider [phone] Encounter Details Date Type Department Care Team (Late st Contact Info) Description 11/28/2011 Orders [place] [phone] Jennifer Burroughs APRN [facility] GASTROENTEROLOGY DEPT. [place], [place] [phone] Social History Tobacco Use Types Packs/Day Years [...] 4:00 PM EDT Office [place] [phone] Kira Thayer MD [facility] [place] [address] documented as of this encounter Procedures Procedure [...] Burroughs APRN IMSenait FILM LIBRARY ORD ERABLES [facility] [address] [facility] [place] [address] documented in this encounter Visit Diagnoses Not on filedocumented in this encounter Care Teams Zigzag Machine Operator Relationship Specialty Start Date End Date Cathy Wu APRN PCP - General 08/27/11 09/10/12 documented as of this encounter
--- OUTSIDE RECORDS SUMMARY | 2024-04-21 18:54 | XMS_ITS | Encounter Summary ---
Author Organization [facility] Address [address] [place] [address] Care Team Providers Care Helicopter Technician Name Role Phone Genet Sauer MD Primary Care Provider [phone] Encounter Details Date Type Department Care Team (Late st Contact Info) Description 10/05/2023 Lab Requisition [facility] Pathology & Laboratory Medicine - [address] [address] Outr Resulting Lab, Provider Social History Tobacco [...] Ab Positive See Note 10/06/2023 11:09 EDT [facility] Comment:Presence of detectab le measles virus IgG antibodies. Blood VENOUS BLOOD / Unknown 10/05/2023 9:32 EDT 10/05/2023 19:26 EDT us Provider Outr Resulting Lab IMMUNOLOGY AND SEROL OGY ORDERABLES Final Result Performing Organization Address City/[facility]/ZIP Co de Phone Number [facility] [address] [place] [address] * MUMPS ANTIBODY IGG (10/05/2023 9:32 EDT) Mumps Antibody IgG Positive See Note 10/06/2023 11:10 EDT [facility] Comment:Presence of detectab le mumps virus IgG antibodies. Blood VENOUS BLOOD / Unknown 10/05/2023 9:32 EDT 10/05/2023 19:26 EDT us Provider Outr Resulting Lab IMMUNOLOGY AND SEROL OGY ORDERABLES Final Result Performing Organization Address [facility] Co de Phone Number [facility] [address] [place] [address] * RUBELLA IGG ANTIBODY (10/05/2023 9:32 EDT) Rubella IgG Ab Positive See Note 10/06/2023 11:11 EDT [facility] Comment:Positive for IgG ant ibodies to Rubella virus. Blood VENOUS BLOOD / Unknown 10/05/2023 9:32 EDT 10/05/2023 19:26 EDT us Provider Outr Resulting Lab CHEMISTRY & BLOOD GA S ORDERABLES Final Result Performing Organization Address City/[facility]/ZIP Co de Phone Number [facility] [address] [place] [address] documented in this encounter Visit Diagnoses Not on filedocumented in this encounter Care Teams Helicopter Technician Relationship Specialty Start Date End Date Genet Sauer MD [address] [place] [address] [id number] PCP - General 09/19/12 documented as of this encounter
--- OUTSIDE RECORDS SUMMARY | 2024-04-21 18:54 | XMS_ITS | Encounter Summary ---
Author Organization [facility] [place] [address] Care Team Providers Care Production Quality Analyst Name Role Phone Genet Sauer MD Primary Care Provider [phone] Encounter Details Date Type Department Care Team (Late st Contact Info) Description 01/02/2013 Orders [place] [phone] Sammie Johnson MD [facility] [place] [address] Social History Tobacco Use Types Packs/Day Years [...] 4:00 PM EDT Office [place] [phone] Kria Thayer MD [facility] [place] [address] documented as of this encounter Procedures Procedure Name Priority Date/Time Associated Diagnosis Comments FILM LIBRARY STORAGE ONLY DX CHEST Routine 01/02/2013 12:05 PM EDT documented in this encounter Results * Film Library- Storage only DX Chest (01/02/2013 12:05 PM EDT) 01/02/2013 12:0 5 PM EDT Narrative RAD - 12/03/2013 11:05 PM EDT This is a non-reportable exam. Procedure Note Messi Tate - 12/03/2013 This is a non-reportable exam. Sammie Johnson MD IMG FILM LIBRARY ORD ERABLES [facility] [address] [place] [address] documented in this encounter Visit Diagnoses Not on filedocumented in this encounter Care Teams Production Quality Analyst Relationship Specialty Start Date End Date Genet Sauer MD [facility] [address] [place] [address] [place] [address] PCP - General 09/11/12 06/18/13 documented as of this encounter
--- OUTSIDE RECORDS SUMMARY | 2024-04-21 18:54 | XMS_ITS | Encounter Summary ---
Author Organization [facility] [place] [address] Care Team Providers Care Cutter Plastics Rolls Name Role Phone Genet Sauer MD Primary Care Provider [phone] Encounter Details Date Type Department Care Team (Late st Contact Info) Description 02/03/2012 Orders [place] [phone] Joao Interiano MD Social History Tobacco Use [...] 4:00 PM EDT [place] [address] Kira Thayer MD [facility] PULMONARY MEDICINE [place] [phone] Pending Results Name Type Priority Associated Diagnoses Date /Time Film Library- Storage only DX Abdomen Imaging Routine 02/03/2012 4:29 PM EDT documented as of this encounter Visit Diagnoses Not on filedocumented in this encounter Care Teams Cutter Plastics Rolls Relationship Specialty Start Date End Date Genet Sauer MD [facility] [address] [address] PCP - General 09/11/12 06/18/13 documented as of this encounter
--- OUTSIDE RECORDS SUMMARY | 2024-04-21 18:55 | XMS_ITS | Encounter Summary ---
Author Organization [facility] Address [address] [place] [address] Care Team Providers Care Leasing Agent Name Role Phone Genet Sauer MD Primary Care Provider [phone] Unknown, Provider Primary Care Provider Unava ilable Encounter Details Date Type Department Care Team (Late st Contact Info) Description 09/14/2007 Results Only [facility] - Maple conversion [address] [place] [address] Ashley Abdi MD [address] [place] [address] [place] [address] Social History Tobacco Use Types Packs/Day Years [...] ? DIEUDONNE JESSIE ? Accession #: ? [id number] ? : ? 1970 (Age: 37) ??F [...] Final Resu lt [facility] [address] [place] [address] documented in this encounter Visit Diagnoses Not on filedocumented in this encounter Care Teams Leasing Agent Relationship Specialty Start Date End Date Genet Sauer MD [facility] [address] [place] [address] PCP - General 10/01/08 09/18/12 Unknown, Provider, PCP - General 08/26/08 09/30/08 documented as of this encounter
--- OUTSIDE RECORDS SUMMARY | 2024-04-21 18:55 | XMS_ITS | Encounter Summary ---
Author Organization [facility] Address [address] [place] [address] Care Team Providers Care Soil Sort Worker Name Role Phone Genet Sauer MD Primary Care Provider [phone] Encounter Details Date Type Department Care Team (Late st Contact Info) Description 08/08/2018 Results Only [facility] [phone] Sarina Zapata MD [address] [place] [address] [address] [place] [phone] Social History Tobacco Use Types Packs/Day Years [...] ? DIEUDONNE JESSIE ? Accession #: ? [id number] ? : ? 1970 (Age: 47) ??F [...] GI biopsy series is negative for dysplasia. Public Relations Professional slides of this case were reviewed at [...] (ASCP) 08/08/2018 3:55 PM End of Report [facility] 08/08/2018 15:4 4 EDT 08/08/2018 15:44 EDT us Sarina Zapata MD PATHOLOGY ORDERABLES Fin al Result [facility] [address] [place] [address] documented in this encounter Visit Diagnoses Not on filedocumented in this encounter Care Teams Soil Sort Worker Relationship Specialty Start Date End Date Genet Sauer MD [address] [place] [address] PCP - General 09/19/12 documented as of this encounter
--- OUTSIDE RECORDS SUMMARY | 2024-04-21 18:55 | XMS_ITS | Encounter Summary ---
Author Organization [facility] Address [address] [place] [address] Care Team Providers Care Logistics Operations Manager Name Role Phone Unknown, Provider Primary Care Provider Unava ilable Encounter Details Date Type Department Care Team (Late st Contact Info) Description 09/27/2008 Orders Only [facility] ([facility]) [address] [place] [address] [phone] Kalia Combs MD [address] [place] [address] Social History Tobacco Use Types Packs/Day Years [...] ? LEGET, JESSIE ? Accession #: ? [id number] ? : ? 1970 (Age: 38) ??F [...] chronic mastitis. Clinical correlation is essential. ? Composition Mixer sections of this case have been reviewed [...] PATHOLOGY ORDERABLES Final Result Performing Organization Address City/State/[facility] Co de Phone Number [facility] [address] [place] [address] documented in this encounter Visit Diagnoses Not on filedocumented in this encounter Care Teams Logistics Operations Manager Relationship Specialty Start Date End Date Unknown, Provider, PCP - General 08/26/08 09/30/08 documented as of this encounter
--- OUTSIDE RECORDS SUMMARY | 2024-04-21 18:55 | XMS_ITS | Encounter Summary ---
Author Organization [facility] Address [address] [place] [address] Care Team Providers Care Public Employment Mediator Name Role Phone Genet Sauer MD Primary Care Provider [phone] Encounter Details Date Type Department Care Team (Latest Contact Info) Description 08/08/2018 12:18 EDT - 08/08/2018 23:59 EDT Hospital Encounter [address] [address] Unknown, Provider, MD Discharge Disposition: Auto Discharge [...] on filedocumented in this encounter Care Teams Public Employment Mediator Relationship Specialty Start Date End Date Genet Sauer MD [address] [place] [address] PCP - General 09/19/12 documented as of this encounter
--- OUTSIDE RECORDS SUMMARY | 2024-04-21 18:55 | XMS_ITS | Encounter Summary ---
Author Organization [facility] Address [address] [place] [address] Care Team Providers Care Calculus Tutor Name Role Phone Alma Davila MD Primary Care Provider [phone] Encounter Details Date Type Department Care Team (Late st Contact Info) Description 09/15/2012 Results Only [facility] [phone] Molina Hopkins, DO [address] [place] [address] Social History Tobacco Use Types [...] ? DIEUDONNE JESSIE ? Accession #: ? [id number] ? : ? 1970 (Age: 42) ??F [...] specimen is entirely submitted as (B1). ??(Dr. Stern)/[facility] End of Report [facility] 09/15/2012 16:1 3 EDT 09/15/2012 16:13 EDT us Molina Hopkins DO PATHOLOGY ORDERABLES Final Res ult [facility] [address] [place] [address] documented in this encounter Visit Diagnoses Not on filedocumented in this encounter Care Teams Calculus Tutor Relationship Specialty Start Date End Date Alma Davila MD [facility] [address] [place], [place] [phone] PCP - General 10/01/08 09/18/12 documented as of this encounter
--- OUTSIDE RECORDS SUMMARY | 2024-04-21 18:55 | XMS_ITS | Encounter Summary ---
Author Organization [facility] Address [address] [place] [address] Care Team Providers Care Information Systems Administrator Name Role Phone Unavailable Primary Care Provider Unavailabl e Encounter Details Date Type Department Care Team (Late st Contact Info) Description 08/22/2008 Orders Only [facility] - [facility] ([facility]) [address] [place] [address] [phone] Kalia Combs MD [address] [place] [address] Social History Tobacco Use Types Packs/Day Years [...] ? LEBEL, JESSIE ? Accession #: ? [id number] ? : ? 1970 (Age: 37) ??F [...] in toto as (A). ? Received in [employer]'s solution labelled LebelBonniean and biopsy ascending ?? colon are two pink-bass irregular soft tissues, 0.7 x 0.2 x 0.1 cm and 0.8 x 0.1 x 0.1 cm. ??Submitted in toto as (B). ? Received in [employer]'s solution labelled Jessie Sanchez and biopsy transverse ?? colon are three pink-bass irregular soft tissues ranging from 0.1 x 0.1 x 0.1 cm to 0.5 x 0.2 x 0.1 cm. ??Submitted in toto as (C). ? Received in [employer]'s solution labelled LebelBonniean and biopsy sigmoid are [...] PATHOLOGY ORDERABLES Final Result [facility] [address] [place] [address] documented in this encounter Visit Diagnoses Not on filedocumented in this encounter
--- OUTSIDE RECORDS SUMMARY | 2024-04-21 18:55 | XMS_ITS | Encounter Summary ---
Author Organization [facility] Address [address] [place] [address] Care Team Providers Care Sales Assistant Institutional Sales Name Role Phone Genet Sauer MD Primary Care Provider [phone] Encounter Details Date Type Department Care Team (Latest Contact Info) Description 02/26/2014 11:40 EST - 02/26/2014 23:59 EST Hospital Encounter [address] [address] Unknown, Provider, MD Discharge Disposition: Home or [...] Code Departure Means Destination Home or Self Half-Way documented in this encounter Plan of Treatment Not on file documented as of this encounter Visit Diagnoses Not on filedocumented in this encounter Care Teams Sales Assistant Institutional Sales Relationship Specialty Start Date End Date Genet Sauer MD [address] [place] [address] PCP - General 09/19/12 documented as of this encounter
--- OUTSIDE RECORDS SUMMARY | 2024-04-21 18:55 | XMS_ITS | Encounter Summary ---
Author Organization [facility] Address [address] [place] [address] Care Team Providers Care Purchasing Director Name Role Phone Genet Sauer MD Primary Care Provider [phone] Encounter Details Date Type Department Care Team (Late st Contact Info) Description 02/21/2014 Results Only [facility]- [facility] [phone] Molina Hopkins, DO [address] [place] [address] Social History Tobacco Use Types [...] reading/interpreti ng unformatted reports. Name: ? JESSIE SANCHEZ ? Accession #: ? [id number] ? : ? 1970 (Age: 43) ??F ? Collect Date: ? 02/21/2014 ? Location: ? [facility] ? Receive Date: ? 02/22/2014 ? Provider: MOLINA HOPKINS DO Copy to: JESSIE CALDERON HVAC TECHNICIAN ? Final Pathologic Diagnosis: APPENDIX, APPENDECTOMY: - [...] adjacent to the proximal stapled margin, two videotape sales representative cross sections and one half of the longitudinally bisected distal tip are submitted in 1. Karuna Amaral 02/22/2014 12:23 PM End of Report [facility] 02/21/2014 8:40 EST 02/22/2014 8:40 EST us Molina Hopkins DO PATHOLOGY ORDERABLES Final Res ult [facility] [address] [place] [address] documented in this encounter Visit Diagnoses Not on filedocumented in this encounter Care Teams Purchasing Director Relationship Specialty Start Date End Date Genet Sauer MD [address] [place] [address] PCP - General 09/19/12 documented as of this encounter
--- OUTSIDE RECORDS SUMMARY | 2024-04-21 18:55 | XMS_ITS | Encounter Summary ---
Author Organization [facility] Address [address] [place] [address] Care Team Providers Care Equipment Washer Name Role Phone Genet Sauer MD Primary Care Provider [phone] Unknown, Provider Primary Care Provider Unava ilable Encounter Details Date Type Department Care Team (Late st Contact Info) Description 07/20/2007 Results Only [facility] - Maple conversion [address] [place] [address] Abbie Waldron, [address] [place] [address] Social History Tobacco Use Types [...] 68. [facility] Report Status Final [id number] [facility] 07/20/2007 14:5 0 EDT 07/30/2007 20:20 EDT Abbie Waldron POLICY ISSUE CLERK MICROBIOLOGY - GENERAL ORDER [place] Final Result [facility] [address] [place] [address] * CYTOPATHOLOGY (07/20/2007 0:00 EDT) Pathology Report: CYTOPATHOLOGY REPORT Reports generated via electronic interface contain original data; however they are lacking the format of the original report. Caution should be taken when reading/interpreti ng unformatted reports. Name: ? JESSIE BRO ? Accession #: ? [id number] : ? 1970 (Age: 36) ??F ?Collect Date: ? 07/20/2007 Location: ? [facility] ? Receive Date: ? 07/21/2007 Provider: ?ABBIE WALDRON POLICY ISSUE CLERK Copy to: ? Specimen/Source: ?ThinPrep Pap Test, Cervix/Endocervix, processed on [employer] ThinPrep Imaging System, with manual evaluation Last [...] [facility] 07/20/2007 07/21/2007 us Abbie Waldron POLICY ISSUE CLERK PATHOLOGY ORDERABLES Final R esult [facility] [address] [place] [address] documented in this encounter Visit Diagnoses Not on filedocumented in this encounter Care Teams Equipment Washer Relationship Specialty Start Date End Date Genet Sauer MD [facility] [address] [place], [place] [phone] PCP - General 10/01/08 09/18/12 Unknown, MD Willie PCP - General 08/26/08 09/30/08 documented as of this encounter
--- OUTSIDE RECORDS SUMMARY | 2024-04-21 18:55 | XMS_ITS | Encounter Summary ---
Author Organization [facility] Address [address] [place] [address] Care Team Providers Care Book Store Associate Name Role Phone Genet Sauer MD Primary Care Provider [phone] Encounter Details Date Type Department Care Team (Late st Contact Info) Description 04/02/2019 Lab Requisition [facility] Pathology & Laboratory Medicine - [address] [address] Karuna Santana, DO [address] [place], [place] [phone] Encounter for other general examination Social History [...] mucosa negative for dysplasia. 04/09/2019 11:25 EST [facility] at 1125 Clinical History Perirectal cyst 04/09/2019 11:25 [facility] Attestation There was significant resident/fellow involvement in the diagnostic evaluation of this case. By the signature below, the attending physician certifies that they have personally conducted a gross and/or microscopic examination of the described specimens and rendered or confirmed the above diagnosis. 04/09/2019 11:25 [facility] at 1125 Gross [...] B1. Val Aditi 04/05/2019 08:44 04/09/2019 11:25 [facility] Resident/Alec w: Edy Hampton MD 04/09/2019 11:25 [facility] Scanned Images 04/09/2019 11:25 [facility] Tissue SPECIMEN FROM RECTUM / Unknown 04/02/2019 10:13 EST 04/02/2019 19:18 EST Tissue specimen (specimen) SPECIMEN FROM RECTUM / Unknown 04/02/2019 10:13 EST 04/02/2019 19:18 EST us Karuna Santana DO PATHOLOGY ORDERABLES Final Re sult [facility] [address] [place] [address] documented in this encounter Visit Diagnoses Diagnosis Encounter for other general examination documented in this encounter Care Teams Book Store Associate Relationship Specialty Start Date End Date Genet Sauer MD [address] [place] [address] PCP - General 09/19/12 documented as of this encounter
--- OUTSIDE RECORDS SUMMARY | 2024-04-21 18:55 | XMS_ITS | Encounter Summary ---
Author Organization [facility] Address [address] [place] [address] Care Team Providers Care Graduate Studies Dean Name Role Phone Genet Sauer MD Primary Care Provider [phone] Unknown, Provider Primary Care Provider Unava ilable Encounter Details Date Type Department Care Team (Late st Contact Info) Description 01/18/2008 Before [facility] Converted Visit (Maple) [facility] - Maple conversion [address] [place] [address] Ashley Abdi MD [address] [place] [address] [place] [address] Social History Tobacco Use Types Packs/Day Years [...] ? DIEUDONNE, JESSIE ? Accession #: ? [id number] ? : ? 1970 (Age: 37) ??F [...] cervix ? A4 ?Posterior cervix ? A5 ?[employer] Instructor sections of fallopian tube and paratubal cyst ? A6 ?[employer] Instructor sections of ovary ? A7, A8 ?Additional ovarian tissue ? A9 ?Additional endomyometrium ? (Dr. Adam)/mpl ? End of Report ? [facility] 01/18/2008 01/19/2008 10: 17 EDT us Ashley Abdi MD PATHOLOGY ORDERABLES Final Resu lt [facility] [address] [place] [address] documented in this encounter Visit Diagnoses Not on filedocumented in this encounter Care Teams Graduate Studies Dean Relationship Specialty Start Date End Date Genet Sauer MD [facility] [address] [place] [address] PCP - General 10/01/08 09/18/12 Unknown, MD Willie PCP - General 08/26/08 09/30/08 documented as of this encounter
--- NOTE | 2024-04-21 19:00 | RT.EKG_ITS ---
APPROVED REPORT Exam: Resting ECG Reason for Exam: Elevated BNP Patient Location: E HR:85 bpm ECG Measurements Heart Rate 85 AXIS WV 187 P 79 QRSd 84 QRS 45 QT [id number] T [id number] QTc 0 Conclusion Sinus rhythm, rate 85 No STEMI No significant changes from priors
[2024-04-21 19:04] LABS: Troponin I 20 ng/L (<or=51)
[2024-04-21 19:11] LABS: COVID-19 PCR Negative (Negative); Influenza A PCR Negative (Negative); Influenza B PCR Negative (Negative); RSV PCR Negative (Negative)
[2024-04-21 19:12] LABS: Source Nasopharynx
--- NOTE | 2024-04-21 19:28 | NUR.NOTE ---
There was a delay in doing EKG due to MD being in room performing an ultrasound on this patient.
[2024-04-21 22:15] VITALS: BP 144/78; PULSE 70; RESP 18; TEMP 36; O2SAT 97
== END 2024-04-21 22:20 | disposition home or self-care (01) ==
PROVIDERS: Emergency Provider Emergency Medicine; PCP Family Medicine
DX: R19.7 Diarrhea, unspecified (principal); E83.42 Hypomagnesemia; D64.9 Anemia, unspecified; N18.30 Chronic kidney disease, stage 3 unspecified; J44.9 Chronic obstructive pulmonary disease, unspecified; Z94.2 Lung transplant status; Z99.81 Dependence on supplemental oxygen; Z79.899 Other long term (current) drug therapy; Z87.891 Personal history of nicotine dependence
CPT/HCPCS: 36415; 80053; 87637; 93005; 93308; 96365; 96366; 99285; 83735; 83880; 84484; 85025; 93010; J3475

== ENCOUNTER 2024-04-23 18:33 | Outpatient (REF) | payer MEDICARE, SELFPAY ==
[2024-04-23 16:47] LABS: C Diff PCR Negative (Negative)
--- OUTSIDE RECORDS SUMMARY | 2024-04-23 18:36 | XMS_ITS | Encounter Summary ---
Author Organization [facility] Address [facility] [place] [address] Care Team Providers Care Rehab Director Name Role Phone Belkys Bundy Primary Care Provider +1- [phone] Encounter Details Date Type Department Care Team (Late st Contact Info) Description 12/16/2023 [place] [phone] Kiar Thayer MD [facility] [place] [address] Social History Tobacco Use Types Packs/Day Years [...] 01/03/2024 12:07 PM EDT RN called to [facility], in efforts to inquire into overnight pulse oximetry testing results. RN was met with office overflow answering service. RN left message for Sendy, seeking overnight pulse oximetry testing results. * Telephone Encounter - Kira Thayre MD - 12/30/2023 2:02 PM EDT Have not yet received report from overnight oxygen testing. Called Jessie to ask if this had been done and she reports it was done last week, testing through [facility]. Will need the overnight oximetry report from [facility]. Kira Thayer MD * Telephone Encounter - Kira Thayer MD - 12/16/2023 4:24 PM EDT Called Jessie to follow up on my [facility] messages about pursuing additional testing to try [...] agreeable to the testing being done through [facility] who can get a device to her locally for this testing. She also understands insurance must accept her blood gas results ([facility] sent a copy of ABG from June2023 - 11.06/58/142.) She shares she believes [facility] is moving forward with listing her for transplant soon. Orders Placed This Encounter Procedures Common Pulmonary Function Test Overnight pulse ox to be performed on home 2L [place] oxygen. Standing Status: Future Standing Expiration Date: 06/16/2024 Order Specific Question: Preferred location? Answer: External [125] Order Specific Question: Which External location will this be performed: Answer: Other Order Specific Question: Other Facility: Answer: [facility] Order Specific Question: Test to be performed Answer: Pulse Ox Overnight Kira Thayer MD documented in this encounter Plan of Treatment Upcoming Encounters Date Type Department Care Team (Late st Contact Info) Description 08/27/2024 4:00 PM EDT Office [place] [address] Kira Thayer MD [facility] [place] [address] Scheduled Orders Name Type Priority Associated Diagnoses Orde r Schedule Common Pulmonary Function Test PFT Routine COPD, very severe Expected: 12/16/2023, Expires: 06/16/2024 documented as of this encounter Visit Diagnoses Diagnosis COPD, very severe Chronic airway obstruction, not elsewhere classified documented in this encounter Care Teams Rehab Director Relationship Specialty Start Date End Date Belkys Bundy DO [address] [place] [address] PCP - General Family Medicine 03/21/19 documented as of this encounter
--- OUTSIDE RECORDS SUMMARY | 2024-04-23 18:36 | XMS_ITS | Encounter Summary ---
[place] [address] Care Team Providers Care Bankruptcy Paralegal Name Role Phone Belkys Bundy DO Primary Care Provider +1- [phone] Reason for Visit * Reason Onset Date Comments Disability Paperwork 04/16/2024 Updated for ms Encounter Details Date Type Department Care Team (Late st Contact Info) Description 04/16/2024 [place] [phone] Emily Starr RN Disability Paperwork (Updated forms) [...] 04/16/2024 11:36 AM EST Faxed completed Updated [facility] paperwork, signed by Dr. Thayer, to [email or web address]. This covered the following items: Update with dates. Fax submission confirmation time stamped for 04/16/2023 @ 8903. 6 pages with cover sheet. Copy of updated forms sent to scanning for inclusion to patient records. documented in this encounter Plan of Treatment Upcoming Encounters Date Type Department Care Team (Late st Contact Info) Description 08/27/2024 4:00 PM EDT Office [place] [address] Kira Thayer MD [facility] [place] [address] documented as of this encounter Visit Diagnoses Not on filedocumented in this encounter Care Teams Bankruptcy Paralegal Relationship Specialty Start Date End Date Belkys Bundy DO [address] [place] [address] PCP - General Family Medicine 03/21/19 documented as of this encounter
--- OUTSIDE RECORDS SUMMARY | 2024-04-23 18:36 | XMS_ITS | Encounter Summary ---
[place] [address] Care Team Providers Care Inside Sales Territory Manager Name Role Phone Belkys Bundy DO Primary Care Provider +1- [phone] Reason for Referral * Allergy Testing (Routine) - Authorized Specialty Diagnoses / Procedures Referred By Rossy levine Referred To Contact Allergy Diagnoses Allergy status to other antibiotic agents Adverse effect of other systemic antibiotics, initial encounter Belkys Bundy DO [address] [place] [address] [facility] [address] [place] [address] Referral ID Status Reason Start Date Expiration Date Visits Requested Visits Authorized [id number] Authorized Consult, Test & Treat PCP Updated and/or Approved 09/21/2023 09/20/2024 6 6 Encounter Details Date Type Department Care Team (Latest Contact Info) Description 09/21/2023 Transcribe Orders eDH Incoming Referrals [phone] Belkys Bundy DO [address] [place] [phone] Allergy status to other antibiotic agents; Adverse [...] 4:00 PM EDT Office [place] [address] Kira Thayer MD [facility] [place] [address] Scheduled Referrals Name Type Priority Associated Diagnoses Orde r Schedule Referral to Allergy Outpatient Referral Routine Allergy status to other antibiotic agents Adverse effect of other systemic antibiotics, initial encounter Ordered: 09/21/2023 documented as of this encounter Visit Diagnoses Diagnosis Allergy status to other antibiotic agents Adverse effect of other systemic antibiotics, initial encounter documented in this encounter Care Teams Inside Sales Territory Manager Relationship Specialty Start Date End Date Belkys Bundy DO [address] [place] [address] PCP - General Family Medicine 03/21/19 documented as of this encounter
--- OUTSIDE RECORDS SUMMARY | 2024-04-23 18:36 | XMS_ITS | Encounter Summary ---
[place] [address] Care Team Providers Care Trademark Attorney Name Role Phone Belkys Bundy DO Primary Care Provider +1- [phone] Reason for Visit * Reason Onset Date Comments Lung Transplant Pre-evaluation 11/25/2022 Encounter Details Date Type Department Care Team (Late st Contact Info) Description 11/25/2022 Telephone [place] [phone] Emily Starr RN Lung Transplant Pre-evaluation Social [...] Pre-transplant referral, signed by Dr. Thayer, to [facility] Transplant Team. Attached to this was the following items: Introduction letter from Dr. Thayer, Referral form, Patient Demographics, Office Visit Notes dated 11/22/2022, 10/18/2022 PFTs dated 10/18/2022, 09/13/2022 Fax submission confirmation time stamped for 11/25/2022 @ 6587. 41 pages with cover sheet. documented in this encounter Plan of Treatment Upcoming Encounters Date Type Department Care Team (Late st Contact Info) Description 08/27/2024 4:00 PM EDT Office [place] [address] Kira Thayer MD [facility] [place] [address] documented as of this encounter Visit Diagnoses Not on filedocumented in this encounter Care Teams Trademark Attorney Relationship Specialty Start Date End Date Belkys Bundy DO [address] [place] [address] PCP - General Family Medicine 03/21/19 documented as of this encounter
--- OUTSIDE RECORDS SUMMARY | 2024-04-23 18:36 | XMS_ITS | Encounter Summary ---
[place] [address] Care Team Providers Care Qa Tester Name Role Phone Belkys Bundy Primary Care Provider +1- [phone] Reason for Visit * Reason Onset Date Comments Oxygen Dependence 07/27/2023 Overnight Puls e Oximetry Requisition Encounter Details Date Type Department Care Team (Late st Contact Info) Description 07/27/2023 [place] [phone] Emily Starr RN Oxygen Dependence (Overnight Pulse [...] Testing Requisition, signed by Dr. Thayer, to [facility]. Attached to this was the following items: Patient Demographics This covered the following items: Common Pulmonary Function Test Qty: 1 Preferred location? External [125] Which External location will this be performed: Other Other Facility: [facility] Test to be performed: Pulse Ox Overnight Overnight oxygen testing to be performed on home 2L NC O2 Fax submission confirmation time stamped for 07/27/2023 @ 6010. 4 pages with cover sheet. documented in this encounter Plan of Treatment Upcoming Encounters Date Type Department Care Team (Late st Contact Info) Description 08/27/2024 4:00 PM EDT Office [place] [address] Kira Thayer MD [facility] [place] [address] documented as of this encounter Visit Diagnoses Not on filedocumented in this encounter Care Teams Qa Tester Relationship Specialty Start Date End Date Belkys Bundy DO [address] [place] [address] PCP - General Family Medicine 03/21/19 documented as of this encounter
--- OUTSIDE RECORDS SUMMARY | 2024-04-23 18:36 | XMS_ITS | Encounter Summary ---
Author Organization [facility] [place] [address] Care Team Providers Care Electric Motor Winders Assembler Name Role Phone Belkys Bundy Primary Care Provider +1- [phone] Encounter Details Date Type Department Care Team (Late st Contact Info) Description 03/01/2024 Telephone [place] [address] Yesenia Nino, RN Social History Tobacco Use [...] 1:47 PM EST [place] paperwork faxed to [employer]'s HR department. Fax submission confirmation time stamped for 03/01/2024 @ 5457. 5 pages with cover sheet. Copy sentto [...] 03/01/2024 11:13 AM EST Copied from CRM #[id number]. Topic: Specialty Dept CRMs - Generic Call [...] has been completed. Please call him at [phone]. documented in this encounter Plan of Treatment Upcoming Encounters Date Type Department Care Team (Late st Contact Info) Description 08/27/2024 4:00 PM EDT Office [place] [address] Kira Thayer MD [facility] [place] [address] documented as of this encounter Visit Diagnoses Not on filedocumented in this encounter Care Teams Electric Motor Winders Assembler Relationship Specialty Start Date End Date Belkys Bundy DO [address] [facility] [place] [address] PCP - General Family Medicine 03/21/19 documented as of this encounter
--- OUTSIDE RECORDS SUMMARY | 2024-04-23 18:36 | XMS_ITS | Encounter Summary ---
Author Organization [facility] Address [facility] [place] [address] Care Team Providers Care Ceramic Engineer Name Role Phone Belkys Bundy DO Primary Care Provider +1- [phone] Encounter Details Date Type Department Care Team [...] 4:00 PM EDT [place] [address] Kira Thayer MD [facility] [place] [address] documented as of this encounter Visit Diagnoses Not on filedocumented in this encounter Care Teams Ceramic Engineer Relationship Specialty Start Date End Date Belkys Bundy DO [address] [place] [address] PCP - General Family Medicine 03/21/19 documented as of this encounter
--- OUTSIDE RECORDS SUMMARY | 2024-04-23 18:36 | XMS_ITS | Encounter Summary ---
[place] [address] Care Team Providers Care Transitional Studies Instructor Name Role Phone Belkys Bundy Virginie MYRICK Primary Care Provider +1- [phone] Reason for Referral * Consultation (Routine) - Authorized Specialty Diagnoses / Procedures Referred By Rossy levine Referred To Contact Gastroenterology Diagnoses Diarrhea, unspecified type Elevated alkaline phosphatase level Lung transplant candidate John Nieves MD [facility] [place] [address] [facility] [address] [place] [phone] Referral ID Status Reason Start Date Expiration Date Visits Requested Visits Authorized [id number] Authorized Consult, Test & Treat 09/01/2023 08/31/2024 [...] no documented anticoagulation use John Nieves MD [facility] [place] [address] [facility] [address] [place] [phone] Referral ID Status Reason Start Date Expiration Date V isits Requested Visits Authorized [id number] Closed Test Only 09/01/2023 08/31/2024 1 1 Encounter Details Date Type Department Care Team (Late st Contact Info) Description 09/01/2023 Orders Only [place] [address] John Nieves MD [facility] [place] [address] Lung transplant candidate (Primary Dx); Diarrhea, unspecified [...] 4:00 PM EDT [place] [address] Kira Thayer MD [facility] [place] [address] Scheduled Referrals Name Type Priority Associated Diagnoses [...] levels documented in this encounter Care Teams Transitional Studies Instructor Relationship Specialty Start Date End Date Belkys Bundy DO [address] [place] [address] PCP - General Family Medicine 03/21/19 documented as of this encounter
--- OUTSIDE RECORDS SUMMARY | 2024-04-23 18:36 | XMS_ITS | Encounter Summary ---
[place] [address] Care Team Providers Care Firer Low Pressure Name Role Phone Belkys Bundy DO Primary Care Provider +1- [phone] Reason for Visit * Reason Onset Date Comments Oxygen Dependence 12/19/2023 Overnight Puls e Oximetry Encounter Details Date Type Department Care Team (Late st Contact Info) Description 12/19/2023 [place] [address] Emily Starr RN Oxygen Dependence (Overnight Pulse [...] RN faxed telephone encounter dated 12/16/2023, to [facility], attn: Dr. Belkys Bundy DO. Fax submission confirmation time stamped for 12/19/2023 @ 1509. 4 pages with cover sheet. documented in this encounter Plan of Treatment Upcoming Encounters Date Type Department Care Team (Late st Contact Info) Description 08/27/2024 4:00 PM EDT Office [place] [address] Kira Thayer MD [facility] [place] [address] documented as of this encounter Visit Diagnoses Not on filedocumented in this encounter Care Teams Firer Low Pressure Relationship Specialty Start Date End Date Belkys Bundy DO [address] [place] [address] PCP - General Family Medicine 03/21/19 documented as of this encounter
--- OUTSIDE RECORDS SUMMARY | 2024-04-23 18:36 | XMS_ITS | Encounter Summary ---
Author Organization [facility] Address [facility] [place] [address] Care Team Providers Care Progressive Care Nurse Name Role Phone Belkys Bundy DO Primary Care Provider +1- [phone] Encounter Details Date Type Department Care Team (Late st Contact Info) Description 07/08/2023 Notes [place] [address] Kira Thayer MD [facility] [place] [address] Social History Tobacco Use Types Packs/Day Years [...] reached out after lung transplant evaluation at [facility], reporting the recommended she discuss nocturnal bipap with us. Presumably this is related to finding of hypercarbia on labs (ECHO reviewed, does not show RV strain or elevated PA pressures.) Prior VBG fall 2022 did not demonstrate significant hypercarbia, and prior overnight oximetry on 2LNC O2 11/2022 did not demonstrate desaturation. We am requesting lab results including ABG/VBG from [facility], and am ordering repeat overnight oximetry to be performed on 2L NC O2 now (can be done through [facility] PFT lab, similar to prior overnight testing.) [...] 4:00 PM EDT Office [place] [address] Kira Thayer MD [facility] [place] [address] documented as of this encounter Visit Diagnoses Not on filedocumented in this encounter Care Teams Progressive Care Nurse Relationship Specialty Start Date End Date Belkys Bundy DO [address] [place] [address] PCP - General Family Medicine 03/21/19 documented as of this encounter
--- OUTSIDE RECORDS SUMMARY | 2024-04-23 18:36 | XMS_ITS | Encounter Summary ---
[place] [address] Care Team Providers Care Smoking Pipe Liner Name Role Phone Belkys Bundy Primary Care Provider +1- [phone] Reason for Visit * Reason Onset Date Comments Oxygen Dependence 11/25/2022 Overnight Puls e Oximetry Testing Encounter Details Date Type Department Care Team (Late st Contact Info) Description 11/25/2022 [place] [phone] Emily Starr RN Oxygen Dependence (Overnight Pulse [...] testing requsition, signed by Dr. Thayer, to [facility]. Attached to this was the following items: Patient Demographics This covered the following items: Overnight on 2 LPM Supplemental O2 Fax submission confirmation time stamped for 11/25/2022 @ 4475. 6 pages with cover sheet. documented in this encounter Plan of Treatment Upcoming Encounters Date Type Department Care Team (Late st Contact Info) Description 08/27/2024 4:00 PM EDT [place] [address] Kira Thayer MD [facility] [place] [address] documented as of this encounter Visit Diagnoses Not on filedocumented in this encounter Care Teams Smoking Pipe Liner Relationship Specialty Start Date End Date Belkys Bundy DO [address] [place] [address] PCP - General Family Medicine 03/21/19 documented as of this encounter
--- OUTSIDE RECORDS SUMMARY | 2024-04-23 18:36 | XMS_ITS | Encounter Summary ---
Author Organization [facility] [place] [address] Care Team Providers Care Forest Pathologist Name Role Phone Belkys Bundy DO Primary Care Provider +1- [phone] Reason for Visit * Reason Onset Date Comments Disability Paperwork 03/02/2024 Encounter Details Date Type Department Care Team (Late st Contact Info) Description 03/02/2024 [place] [address] Emily Starr RN Disability Paperwork Social History [...] [place] paperwork, signed by Dr. Thayer, to [employer]. This covered the following items: Estimated end date 04/30/2024. Fax submission confirmation time stamped for 03/06/2024 @ 0908. 5 pages with cover sheet. Copy of [employer] paperwork sent to scanning for inclusion to patient records. Mailed to patient's address on file, previously confirmed. RN attempted to call Jones to update, but rec'd automated notification that his phone line had been disconnected. * Telephone Encounter - Emily Starr RN - 03/02/2024 1:48 PM EST Copied from CRM #[id number]. Topic: Specialty Dept CRMs - Generic Call >> Mar 02, 2024 8:39 AM Bryon Khanna wrote: Specialist: Kira Thayer MD Relationship (if other than patient-full name): Jones Avila, patient's Reason for Call: Suleiman stated his employer contacted him and the [employer] paperwork needs an end date, it can say something like 2 months. Suleiman stated this may need to be revisited later. Suleiman stated to please update the form and fax to his employer. Suleiman stated he can be reached at [phone] to discuss. documented in this encounter Plan of Treatment Upcoming Encounters Date Type Department Care Team (Late st Contact Info) Description 08/27/2024 4:00 PM EDT [place] [address] Kira Thayer MD [facility] [place] [address] documented as of this encounter Visit Diagnoses Not on filedocumented in this encounter Care Teams Forest Pathologist Relationship Specialty Start Date End Date Belkys Bundy DO [address] [place] [address] PCP - General Family Medicine 03/21/19 documented as of this encounter
--- OUTSIDE RECORDS SUMMARY | 2024-04-23 18:36 | XMS_ITS | Clinical Summary ---
Author Organization [facility] Address [facility] [place] [address] Care Team Providers Care Field Scout Name Role Phone Belkys Bundy DO Primary Care Provider +1- [phone] Allergies Active Allergy Reactions Criticality Noted Date [...] daily. Active fluticasone propionate (FLONASE) 50 mcg/actuation [place], Suspension 02/01/2020 Active atorvastatin (Lipitor) 20 mg [...] 06/03/2021 Active inhalational spacing device (Ricci Aerosol [place] Enhancer) Spacer .MEDSUPPLY 02/01/2020 Active levothyroxine (Synthroid) [...] 03/08/2023 Active Trelegy Ellipta 200-62.5-25 mcg inhaler (DPI)Indications:CLINICAL NURSE OCCUPATIONAL MEDICINE D, very severe INHALE 1 PUFF BY MOUTH ONCE DAILY 3 each 3 11/16/2023 Active Active Problems Problem Noted Date Diagnosed Date Chronic obstructive pulmonary disease 05/02/2020 Supplemental oxygen dependent 05/02/2020 Tobacco use 05/02/2020 Pruritus 08/27/2011 Encounters Date Type Department Care Team Description 04/20/2024 10:00 AM EST Office [place] [address] Kira Thayer MD Lung transplant status, bilateral 04/20/2024 [place] [address] Emily Starr, RN Disability Paperwork 04/20/2024 Travel 04/16/2024 Telephone Pulmonology at [place] [phone] Emily Starr RN Disability Paperwork (Updated forms) 04/13/2024 [place] [address] Emily Starr, RN 03/23/2024 Telephone Pulmonology at [place] [phone] Emily Starr, RN 03/22/2024 Telephone Pulmonology at [place] [phone] Tasha Obrien RN 03/06/2024 [place] [address] Emily Starr RN 03/02/2024 [place] [address] Emily Starr RN Disability Paperwork 03/02/2024 [place] [address] Millicent Valles 03/01/2024 [place] [address] Yesenia Nino, RN 02/27/2024 4:30 PM EST Office [place] [address] Kira Thayer MD COPD, very severe; Supplemental oxygen dependent; Cigarette nicotine dependence in remission; Hypercarbia 02/27/2024 Travel 02/08/2024 [place] [address] Emily Starr RN Infection (Covid-19) from Last 3 Months Immunizations Name Administration Dates Next Due Covid-19 Monovalent (Moderna Spikevax) 12yrs+ ([id number]) 09/15/2021 Covid-19, Unknown Formulation 01/13/2023 ,02/12/2021,08/03/2020,2020 Hepatitis [...] 4:00 PM EDT Office Visit Pulmonology at [facility] [place] [address] Kira Thayer MD [facility] [place] [address] Health Maintenance Due Date Last Done Comments [...] - Td or Tdap) 10/28/2031 10/27/2021, 02/11/2012 Pneumoccocal Vaccine: 50+ Completed 06/09/2023, 05/2011 Care Teams Field Scout Relationship Specialty Start Date End Date Belkys Bundy DO [address] [place], [place] [id number] PCP - General Family Medicine 03/21/19
--- OUTSIDE RECORDS SUMMARY | 2024-04-23 18:36 | XMS_ITS | Encounter Summary ---
Author Organization [facility] [place] [address] Care Team Providers Care Rock Breaker Name Role Phone Belkys Bundy Primary Care Provider +1- [phone] Encounter Details Date Type Department Care Team (Late st Contact Info) Description 03/23/2024 [place] [phone] Emily Starr RN Social History Tobacco Use [...] 03/23/2024 2:10 PM EST Copied from CRM #[id number]. Topic: Specialty Dept CRMs - Generic Call [...] 4:00 PM EDT [place] [address] Kira Thayer MD [facility] [place] [address] documented as of this encounter Visit Diagnoses Not on filedocumented in this encounter Care Teams Rock Breaker Relationship Specialty Start Date End Date Belkys Bundy DO [address] [place] [address] PCP - General Family Medicine 03/21/19 documented as of this encounter
--- OUTSIDE RECORDS SUMMARY | 2024-04-23 18:36 | XMS_ITS | Encounter Summary ---
Author Organization [facility] Address [facility] [place] [address] Care Team Providers Care Machine Molder Name Role Phone Belkys Bundy DO Primary Care Provider +1- [phone] Encounter Details Date Type Department Care Team (Late st Contact Info) Description 07/26/2023 Notes Only [place] [address] Kira Thayer MD [facility] [place] [address] Social History Tobacco Use Types Packs/Day Years [...] PM EDT Office Visit [place] [address] Kira Thayer MD [facility] [place] [address] documented as of this encounter Visit Diagnoses Not on filedocumented in this encounter Care Teams Machine Molder Relationship Specialty Start Date End Date Belkys Bundy DO [address] [place] [address] PCP - General Family Medicine 03/21/19 documented as of this encounter
--- OUTSIDE RECORDS SUMMARY | 2024-04-23 18:36 | XMS_ITS | Encounter Summary ---
[place] [address] Care Team Providers Care Health Underwriter Name Role Phone Belkys Bundy DO Primary Care Provider +1- [phone] Reason for Referral * Rehabilitation (Routine) - Authorized Specialty Diagnoses / Procedures Referred By Contact Referred To Contact Pulmonary Rehabilitation / Rehabilitation Diagnoses COPD, very severe Kira Thayer MD [facility] [place] [address] Referral ID Status Reason Start Date Expiration Date Visits Requested Visits Authorized [id number] Authorized Evaluate and Treat 02/27/2024 08/25/2024 36 36 Reason for Visit * Consultation (Routine) - Closed Specialty Diagnoses / Procedures Referred By Rossy levine Referred To Contact Pulmonology Diagnoses Solitary pulmonary nodule End stage COPD Dyspnea Emphysema, unspecified Other abnormalities of breathing Awaiting organ transplant status GEN PULM Patient of Kira Thayer Pulm clearance for transplant Belkys Bundy DO [address] [place] [address] [facility] Pul[facility] [address] [place] [id number] Referral ID Status Reason Start Date Expiration Date Visits Re quested Visits Authorized [id number] Closed 07/22/2023 07/21/2024 1 1 Encounter Details Date Type Department Care Team (Late st Contact Info) Description 02/27/2024 4:30 PM EST [place] [phone] Kira Thayer MD [facility] [place] [address] COPD, very severe; Supplemental oxygen dependent; Cigarette [...] from the original note were not included. [facility] Section of Pulmonary and [...] with anything specific. She got called to [facility] for transplantation in December, however the explanted [...] needs them inhalational spacing device (Ricci Aerosol [place] Enhancer) Spacer .MEDSUPPLY levothyroxine (Synthroid) 100 mcg [...] tablet 11 fluticasone propionate (FLONASE) 50 mcg/actuation [place], Suspension atorvastatin (Lipitor) 20 mg Tablet cyclobenzaprine [...] S or Z allele) CT chest 02/01/2024 ([facility]) report notes (images not available): IMPRESSION: Compared [...] is currently listed for lung transplantation at [facility]. She is ready to retry pulm rehab (wasn't able to do so due to scheduling after her last visit, but interested now.) New referral placed to [facility] pulm rehab. She is on supplemental O2; [...] Recommendations: - can call pulm rehab at [facility] to start, new referral also placed - [...] 02/29/2024, currently recovering in the ICU at [facility]. Given this, we will not send the bipap orders out as her new pulmonary status is likely to be much better and if all goes well she will not need bipap at home. [place] paperwork for her completed. MD Omari Hogue [facility] PULMONOLOGY AT [facility] [address] Dept: [phone] Loc: [phone] documented in this encounter Plan of Treatment Upcoming Encounters Date Type Department Care Team (Late st Contact Info) Description 08/27/2024 4:00 PM EDT [place] [address] Kira Thayer MD [facility] [place] [address] Scheduled Referrals Name Type Priority Associated Diagnoses [...] abnormality documented in this encounter Care Teams Health Underwriter Relationship Specialty Start Date End Date Belkys Bundy DO [address] [place] [address] PCP - General Family Medicine 03/21/19 documented as of this encounter
--- OUTSIDE RECORDS SUMMARY | 2024-04-23 18:36 | XMS_ITS | Encounter Summary ---
[place] [address] Care Team Providers Care Bean Picker Machine Operator Name Role Phone Belkys Bundy Primary Care Provider +1- [phone] Reason for Visit * Reason Onset Date Comments Infection 02/08/2024 Covid-19 Encounter Details Date Type Department Care Team (Late st Contact Info) Description 02/08/2024 Telephone [place] [phone] Emily Starr RN Infection (Covid-19) Social History [...] symptoms initially started on 01/31/2024. Shewent to [facility] on 02/01/2024, noting increased coughing and hacking. [...] 02/08/2024 12:29 PM EDT Copied from CRM #[id number]. Topic: Specialty Dept CRMs - Triage >> [...] 4:00 PM EDT Office [place] [address] Kira Thayer MD [facility] [place] [address] documented as of this encounter Visit Diagnoses Not on filedocumented in this encounter Care Teams Bean Picker Machine Operator Relationship Specialty Start Date End Date Belkys Bundy DO [address] [place] [address] PCP - General Family Medicine 03/21/19 documented as of this encounter
--- OUTSIDE RECORDS SUMMARY | 2024-04-23 18:36 | XMS_ITS | Encounter Summary ---
Author Organization [facility] [place] [address] Care Team Providers Care Destination Specialist Name Role Phone Belkys Bundy DO Primary Care Provider +1- [phone] Encounter Details Date Type Department Care Team (Late st Contact Info) Description 03/06/2024 Telephone [place] [address] Emily Starr RN Social History Tobacco Use [...] 03/06/2024 1:31 PM EST Copied from CRM #[id number]. Topic: Specialty Dept CRMs - Generic Call [...] 4:00 PM EDT Office [place] [address] Kira Thayer MD [facility] [place] [address] documented as of this encounter Visit Diagnoses Not on filedocumented in this encounter Care Teams Destination Specialist Relationship Specialty Start Date End Date Belkys Bundy DO [address] [place] [address] PCP - General Family Medicine 03/21/19 documented as of this encounter
--- OUTSIDE RECORDS SUMMARY | 2024-04-23 18:36 | XMS_ITS | Encounter Summary ---
Author Organization [facility] [place] [address] Care Team Providers Care Kennel Aide Name Role Phone Belkys Bundy DO Primary Care Provider +1- [phone] Encounter Details Date Type Department Care Team (Late st Contact Info) Description 06/15/2023 Telephone [place] [address] Millicent Valles Social History Tobacco Use Types [...] - 06/15/2023 5:07 PM EST Copied from [facility] #[id number]. Topic: Specialty Dept CRMs - Appointment Needed [...] 4:00 PM EDT Office [place] [address] Kira Thayer MD [facility] [place] [address] documented as of this encounter Visit Diagnoses Not on filedocumented in this encounter Care Teams Kennel Aide Relationship Specialty Start Date End Date Belkys Bundy DO [address] [place] [address] PCP - General Family Medicine 03/21/19 documented as of this encounter
--- OUTSIDE RECORDS SUMMARY | 2024-04-23 18:36 | XMS_ITS | Encounter Summary ---
Author Organization [facility] Address [facility] [place] [address] Care Team Providers Care Charter Boat Captain Name Role Phone Belkys Bundy DO Primary Care Provider +1- [phone] Encounter Details Date Type Department Care Team [...] 4:00 PM EDT Office [place] [address] Kira Thayer MD [facility] [place] [address] documented as of this encounter Visit Diagnoses Not on filedocumented in this encounter Care Teams Charter Boat Captain Relationship Specialty Start Date End Date Belkys Bundy DO [address] [place] [address] PCP - General Family Medicine 03/21/19 documented as of this encounter
--- OUTSIDE RECORDS SUMMARY | 2024-04-23 18:36 | XMS_ITS | Encounter Summary ---
Author Organization [facility] [place] [address] Care Team Providers Care Manager Clinical Informatics Name Role Phone Belkys Bundy Primary Care Provider +1- [phone] Reason for Referral * Rehabilitation (Routine) - Closed Specialty Diagnoses / Procedures Referred By Contact Referred To Contact Pulmonary Rehabilitation / Rehabilitation Diagnoses COPD, very severe Kira Thayer MD [facility] [place] [address] Referral ID Status Reason Start Date Expiration Date V isits Requested Visits Authorized [id number] Closed Evaluate and Treat 02/07/2023 08/06/2023 1 1 Encounter Details Date Type Department Care Team (Late st Contact Info) Description 02/07/2023 9:30 AM EDT Office [place] [address] Kira Thayer MD [facility] [place] [address] COPD, very severe; Supplemental oxygen dependent; Immunization [...] original note were not included. [facility] Section of Pulmonary and Critical Care Medicine [...] initial visit by the Transplant Team at [facility] for initial transplant assessment 12/2022; they identified need to be abstinent from nicotine for 6 months before moving forward with full transplant assessment. They will see her back in 6months. She reports this was a very positive visit. Met primarily with a cost coordinator and learned a lot about the process. They are postponing any testing until she demonstrates 6 months nicotine-free. Mrs. Sanchez reports she is doing well! She is walking more, slowly but trying to increase this. She would like to redo pulm rehab now, [facility] would be closest program. She quit smoking [...] Prior to Visit Medication Sig Dispense Refill sjogejwfrnr-vwfhrbshuope-vmzcsfeubl (Trelegy Ellipta) 200-62.5-25 mcg Inhale 1 puff into the lungs daily. 28 each 11 predniSONE (Deltasone) 20 mg tablet TAKE TWO TABLETS BY MOUTH EVERY DAY NEEDED FOR COPD EXACERBATION; ALERT DATAPOWER DEVELOPER AND PCP inhalational spacing device (Ricci Aerosol [place] Enhancer) Spacer .MEDSUPPLY levothyroxine (Synthroid) 100 mcg [...] tablet 11 fluticasone propionate (FLONASE) 50 mcg/actuation [place], Suspension atorvastatin (Lipitor) 20 mg Tablet cyclobenzaprine [...] pulmonary rehab, referral is being placed to [facility]. She has been disabled beginning around 2012 [...] move forward with lung transplant evaluation with [facility]; she will see them again around [...] pulm rehab referral placed, to go to [facility] - continue trelegy inhaler 200 daily, albuterol [...] day of visit. Kira Thayer MD [facility] PULMONOLOGY AT [facility] [address] Dept: [phone] Loc: [phone] documented in this encounter Plan of Treatment Upcoming Encounters Date Type Department Care Team (Late st Contact Info) Description 08/27/2024 4:00 PM EDT Office [place] [address] Kira Thayer MD [facility] [address] [place] [address] Scheduled Referrals Name Type Priority Associated Diagnoses [...] disorder documented in this encounter Care Teams Manager Clinical Informatics Relationship Specialty Start Date End Date Belkys Bundy DO [address] [place] [address] PCP - General Family Medicine 03/21/19 documented as of this encounter
--- OUTSIDE RECORDS SUMMARY | 2024-04-23 18:36 | XMS_ITS | Encounter Summary ---
[place] [address] Care Team Providers Care Ancient Art Curator Name Role Phone Belkys Bundy DO Primary Care Provider +1- [phone] Reason for Visit * Reason Onset Date Comments Disability Paperwork 04/20/2024 Encounter Details Date Type Department Care Team (Late st Contact Info) Description 04/20/2024 Tele[place] [address] Emily Starr RN Disability Paperwork Social History [...] 04/20/2024 11:39 AM EST Rec'd original updated [facility] paperwork for Suleiman Seth, from Dr. Thayer. Made copy and sent to scanning for inclusion to patient's records. documented in this encounter Plan of Treatment Upcoming Encounters Date Type Department Care Team (Late st Contact Info) Description 08/27/2024 4:00 PM EDT Office [place] [address] Kira Thayer MD [facility] [place] [address] documented as of this encounter Visit Diagnoses Not on filedocumented in this encounter Care Teams Ancient Art Curator Relationship Specialty Start Date End Date Belkys Bundy DO [address] [place] [address] PCP - General Family Medicine 03/21/19 documented as of this encounter
--- OUTSIDE RECORDS SUMMARY | 2024-04-23 18:36 | XMS_ITS | Encounter Summary ---
Author Organization [facility] Address [facility] [place] [address] Care Team Providers Care Mental Measurements Teacher Name Role Phone Belkys Bundy Primary Care Provider +1- [phone] Reason for Visit * Reason Comments Medication Refill Trelegy Encounter Details Date Type Department Care Team (Late st Contact Info) Description 11/14/2023 Refill [place] [address] Kira Thayer MD [facility] [place] [address] COPD, very severe Social History Tobacco Use [...] NAME: Reggie Medeiros [facility] PHONE: [phone] Would patient like script sent directly to pharmacy? (Please put Yes or No) yes Would patient like paper script mailed to home address (Please put yes or No) no Caller/Patient aware of 1-2 business day process. documented in this encounter Plan of Treatment Upcoming Encounters Date Type Department Care Team (Late st Contact Info) Description 08/27/2024 4:00 PM EDT Office Visit [place] [address] Kira Thayer MD [facility] [place] [address] documented as of this encounter Visit Diagnoses Diagnosis COPD, very severe Chronic airway obstruction, not elsewhere classified documented in this encounter Care Teams Mental Measurements Teacher Relationship Specialty Start Date End Date Belkys Bundy DO [address] [place] [address] PCP - General Family Medicine 03/21/19 documented as of this encounter
--- OUTSIDE RECORDS SUMMARY | 2024-04-23 18:36 | XMS_ITS | Encounter Summary ---
Author Organization [facility] [place] [address] Care Team Providers Care Pet Resort Concierge Name Role Phone Belkys Bundy DO Primary Care Provider +1- [phone] Encounter Details Date Type Department Care Team [...] 4:00 PM EDT Office [place] [address] Kira Thayer MD [facility] [place] [address] documented as of this encounter Visit Diagnoses Not on filedocumented in this encounter Care Teams Pet Resort Concierge Relationship Specialty Start Date End Date Belkys Bundy DO [address] [place], [place] [id number] PCP - General Family Medicine 03/21/19 documented as of this encounter
--- OUTSIDE RECORDS SUMMARY | 2024-04-23 18:36 | XMS_ITS | Encounter Summary ---
Author Organization [facility] Address [facility] [place] [address] Care Team Providers Care Marketing Professor Name Role Phone Belkys Bundy Primary Care Provider +1- [phone] Encounter Details Date Type Department Care Team (Late st Contact Info) Description 04/20/2024 10:00 AM EST [place] [address] Kira Thayer MD [facility] [place] [address] Lung transplant status, bilateral Social History Tobacco [...] a photo of your medication list in [facility] if you can. documented in this encounter Plan of Treatment Upcoming Encounters Date Type Department Care Team (Late st Contact Info) Description 08/27/2024 4:00 PM EDT [place] [address] Kira Thayer MD [facility] [place] [address] documented as of this encounter Visit Diagnoses Diagnosis Lung transplant status, bilateral Lung replaced by transplant documented in this encounter Care Teams Marketing Professor Relationship Specialty Start Date End Date Belkys Bundy DO [address] [place] [address] PCP - General Family Medicine 03/21/19 documented as of this encounter
--- OUTSIDE RECORDS SUMMARY | 2024-04-23 18:36 | XMS_ITS | Encounter Summary ---
Author [facility] [place] [address] Care Team Providers Care Cook Camp Name Role Phone Belkys Bundy DO Primary Care Provider +1- [phone] Encounter Details Date Type Department Care Team (Late st Contact Info) Description 04/13/2024 Telephone [place] [address] Emily Starr RN Social History Tobacco Use [...] - 04/13/2024 3:01 PM EST Copied from [facility] #[id number]. Topic: Specialty Dept CRMs - Generic Call [...] 4:00 PM EDT Office [place] [address] Kira Thayer MD [facility] [place] [address] documented as of this encounter Visit Diagnoses Not on filedocumented in this encounter Care Teams Cook Camp Relationship Specialty Start Date End Date Belkys Bundy DO [address] [place] [address] PCP - General Family Medicine 03/21/19 documented as of this encounter
--- OUTSIDE RECORDS SUMMARY | 2024-04-23 18:36 | XMS_ITS | Encounter Summary ---
Author Organization [facility] [place] [address] Care Team Providers Care Batch Mixing Truck Driver Name Role Phone Belkys Bundy Primary Care Provider +1- [phone] Encounter Details Date Type Department Care Team (Late st Contact Info) Description 07/25/2023 Tele[place] [address] Cristin Block Social History Tobacco Use Types [...] 4:00 PM EDT Office [place] [address] Kira Thayer MD [facility] [place] [address] documented as of this encounter Visit Diagnoses Not on filedocumented in this encounter Care Teams Batch Mixing Truck Driver Relationship Specialty Start Date End Date Belkys Bundy DO [address] [place] [address] PCP - General Family Medicine 03/21/19 documented as of this encounter
--- OUTSIDE RECORDS SUMMARY | 2024-04-23 18:36 | XMS_ITS | Encounter Summary ---
[place] [address] Care Team Providers Care Web Services Manager Name Role Phone Belkys Bundy Primary Care Provider +1- [phone] Reason for Visit * Reason Onset Date Comments Pulmon Rehab 02/17/2023 Encounter Details Date Type Department Care Team (Late st Contact Info) Description 02/17/2023 [place] [address] Emily Starr RN Pulmon Rehab Social History [...] PM EST RN faxed out referral to [facility] Pulmonary Rehab, attached was the following records: Referral, Patient Demographics, Allergy and Medication List, Immunization Summary, Office Visit Notes dated 02/07/2023, 11/22/2022, PFT results dated 10/18/2022, 09/13/2022 Fax submission confirmation time stamped for 02/17/2023 @ 1879, 30 pages with cover sheet. documented in this encounter Plan of Treatment Upcoming Encounters Date Type Department Care Team (Late st Contact Info) Description 08/27/2024 4:00 PM EDT Office [place] [address] Kira Thayer MD [facility] [place] [address] documented as of this encounter Visit Diagnoses Not on filedocumented in this encounter Care Teams Web Services Manager Relationship Specialty Start Date End Date Belkys Bundy DO [address] [place] [address] PCP - General Family Medicine 03/21/19 documented as of this encounter
--- OUTSIDE RECORDS SUMMARY | 2024-04-23 18:36 | XMS_ITS | Encounter Summary ---
Author Organization [facility] [place] [address] Care Team Providers Care Counselor Aid Name Role Phone Belkys Bundy Primary Care Provider +1- [phone] Encounter Details Date Type Department Care Team (Late st Contact Info) Description 12/14/2022 Tele[place] [address] Kira Thayer MD [facility] [address] [place] [address] Social History Tobacco Use Types Packs/Day Years [...] to review. Data capture was short, only [id number], but she confirms she was asleep during this time. Lowest WgS2sxq 91% while on home 2L [place] O2. This, combined with the ABG results showing improved CO2 (now 7.39/47) indicate that she does not have significant nocturnal hypoventilation at this time, and does not currently need nocturnal bipap. I reviewed this with her, and she will continue to use nocturnal 2L [place] O2. She shared she has an appointment set up with [facility] Transplant team on 12/20. Kira Thayer MD documented in this encounter Plan of Treatment Upcoming Encounters Date Type Department Care Team (Late st Contact Info) Description 08/27/2024 4:00 PM EDT Office [place] [address] Kira Thayer MD [facility] [address] [place] [address] documented as of this encounter Visit Diagnoses Not on filedocumented in this encounter Care Teams Counselor Aid Relationship Specialty Start Date End Date Belkys Bundy DO [address] [place] [address] PCP - General Family Medicine 03/21/19 documented as of this encounter
--- OUTSIDE RECORDS SUMMARY | 2024-04-23 18:36 | XMS_ITS | Encounter Summary ---
Author Organization [facility] Address [facility] [place] [address] Care Team Providers Care Ornamenter Hand Name Role Phone Belkys Bundy DO Primary Care Provider +1- [phone] Encounter Details Date Type Department Care Team [...] 4:00 PM EDT [place] [address] Kira Thayer MD [facility] [place] [address] documented as of this encounter Visit Diagnoses Not on filedocumented in this encounter Care Teams Ornamenter Hand Relationship Specialty Start Date End Date Belkys Bundy DO [address] [place] [address] PCP - General Family Medicine 03/21/19 documented as of this encounter
--- OUTSIDE RECORDS SUMMARY | 2024-04-23 18:36 | XMS_ITS | Encounter Summary ---
Author Organization [facility] [place] [address] Care Team Providers Care Ham Stringer Name Role Phone Belkys Bundy Primary Care Provider +1- [phone] Encounter Details Date Type Department Care Team (Late st Contact Info) Description 11/23/2022 Telephone [place] [address] Juanis Osullivan RT Social History Tobacco Use [...] 4:00 PM EDT Office [place] [address] Kira Thayer MD [facility] [place] [address] documented as of this encounter Visit Diagnoses Not on filedocumented in this encounter Care Teams Ham Stringer Relationship Specialty Start Date End Date Belkys Bundy DO [address] [place], [place] [address] [address] [address] PCP - General Family Medicine 03/21/19 documented as of this encounter
--- OUTSIDE RECORDS SUMMARY | 2024-04-23 18:36 | XMS_ITS | Encounter Summary ---
[place] [address] Care Team Providers Care Automotive Design Layout Drafter Name Role Phone Belkys Bundy Primary Care Provider +1- [phone] Reason for Visit * Reason Onset Date Comments Other 11/02/2023 DME - BiPAP Encounter Details Date Type Department Care Team (Late st Contact Info) Description 11/02/2023 [place] [address] Emily Starr RN Other (DME - BiPAP) [...] testing requisition be sent out to [facility]. She would like to instead request Dr. Thayer to put in an order for a sleep study through [facility]. Her rationale is that she would not be able to return the equipment in a timelymanner, and that she feels that the sleep study would give better data. * Telephone Encounter - Emily Starr RN - 11/04/2023 12:17 PM EDT RN called back to preferred home number, but was met with voicemail. LMOM, will attempt to call back, requested return call to [phone] * Telephone Encounter - Emily Starr RN - 11/04/2023 10:23 AM EDT Images from the original note were not included. RN called back to Jessie to discuss response from Dr. Thayer as follows: November 03, 2023 Kira Thayer MD to [facility] 11/03/23 8:54 AM For bipap work-up, patient [...] placed in June, but it looks like [facility] bounced it back as they no longer [...] LMOM updating that records hadbeen received from [place], and notification would be sent to Dr. Thayer. * Telephone Encounter - Emily Starr RN - 11/02/2023 3:43 PM EDT Copied from [facility] #[id number]. Topic: Specialty Dept CRMs - Generic Call >> Nov 01, 2023 2:50 PM Dennis Rachel wrote: Specialist: Kira Thayer MD Relationship (if other than patient-full name): Jessie Sanchez Reason for Call: Patient called to get a message to Lacey. She stated, [place] wants her to get a BiPap, all the notes from [place] should be there. documented in this encounter Plan of Treatment Upcoming Encounters Date Type Department Care Team (Late st Contact Info) Description 08/27/2024 4:00 PM EDT [place] [address] Kira Thayer MD [facility] [place] [address] documented as of this encounter Visit Diagnoses Not on filedocumented in this encounter Care Teams Automotive Design Layout Drafter Relationship Specialty Start Date End Date Belkys Bundy DO [address] [place] [address] PCP - General Family Medicine 03/21/19 documented as of this encounter
--- OUTSIDE RECORDS SUMMARY | 2024-04-23 18:36 | XMS_ITS | Encounter Summary ---
Author Organization [facility] Address [facility] [place] [address] Care Team Providers Care Communications Officer Name Role Phone Belkys Bundy Primary Care Provider +1- [phone] Encounter Details Date Type Department Care Team (Late st Contact Info) Description 06/20/2023 2:00 PM EDT [place] [address] Kira Thayer MD [facility] [place] [address] COPD, very severe; Supplemental oxygen dependent; Cigarette [...] the original note were not included. [facility] Section of Pulmonary and Critical Care Medicine [...] heard yet from pulm rehab program at [facility] but still interested. She was seen by the lung Transplant Team at [facility] for initial transplant assessment 12/2022; she has [...] needed. Only takes when really needs them dtrphphtedl-chjlxgjftkdt-ofdmdiwbhc (Trelegy Ellipta) 200-62.5-25 mcg Inhale 1 puff into the lungs daily. 28 each 11 predniSONE (Deltasone) 20 mg tablet TAKE TWO TABLETS BY MOUTH EVERY DAY NEEDED FOR COPD EXACERBATION; ALERT FISHER HAND LINE AND PCP inhalational spacing device (Ricci Aerosol [place] Enhancer) Spacer .MEDSUPPLY levothyroxine (Synthroid) 100 mcg [...] tablet 11 fluticasone propionate (FLONASE) 50 mcg/actuation [place], Suspension atorvastatin (Lipitor) 20 mg Tablet cyclobenzaprine [...] is currently pursuing lung transplant evaluation at [facility]. She will benefit from pulm rehab; we have previously placed a referral to this program at [facility] in [facility], and she will call them [...] indicated for stable small pulm nodules seen 4485-4324. We will hold off on repeat PFTs here given these are anticipated to be done at her next transplant assessment visit. Summary Recommendations: - pulm rehab encouraged, she will call program at [facility] to try to enroll - continue trelegy [...] questions or concerns. Kira Thayer MD [facility] [address] Dept: [phone] Loc: [phone] documented in this encounter Plan of Treatment Upcoming Encounters Date Type Department Care Team (Late Contact Info) Description 08/27/2024 4:00 PM EDT [place] [address] Kira Thayer MD [facility] DR PULMONARY MEDICINE [place] [id number] documented as of this encounter Visit Diagnoses Diagnosis COPD, very severe Chronic airway obstruction, not elsewhere classified Supplemental oxygen dependent Dependence on supplemental oxygen Cigarette nicotine dependence in remission Tobacco use disorder documented in this encounter Care Teams Communications Officer Relationship Specialty Start Date End Date Belkys Bundy DO [address] [place] [address] PCP - General Family Medicine 03/21/19 documented as of this encounter
--- OUTSIDE RECORDS SUMMARY | 2024-04-23 18:36 | XMS_ITS | Encounter Summary ---
Author Organization [facility] Address [facility] [place] [address] Care Team Providers Care Belt Loop Machine Operator Name Role Phone Belkys Bundy DO Primary Care Provider +1- [phone] Encounter Details Date Type Department Care Team [...] 4:00 PM EDT Office [place] [address] Kira Thayer MD [facility] [place] [address] documented as of this encounter Visit Diagnoses Not on filedocumented in this encounter Care Teams Belt Loop Machine Operator Relationship Specialty Start Date End Date Belkys Bundy DO [address] [place] [address] PCP - General Family Medicine 03/21/19 documented as of this encounter
--- OUTSIDE RECORDS SUMMARY | 2024-04-23 18:36 | XMS_ITS | Encounter Summary ---
Author Organization [facility] [place] [address] Care Team Providers Care Ultrasound Technologist Sonographer Name Role Phone Belkys Bundy Primary Care Provider +1- [phone] Encounter Details Date Type Department Care Team (Late st Contact Info) Description 03/02/2024 [place] [address] Millicent Valles Social History Tobacco Use Types [...] 4:00 PM EDT [place] [address] Kira Thayer MD [facility] [place] [address] documented as of this encounter Visit Diagnoses Not on filedocumented in this encounter Care Teams Ultrasound Technologist Sonographer Relationship Specialty Start Date End Date Belkys Bundy DO [address] [place] [address] PCP - General Family Medicine 03/21/19 documented as of this encounter
--- OUTSIDE RECORDS SUMMARY | 2024-04-23 18:36 | XMS_ITS | Encounter Summary ---
[place] [address] Care Team Providers Care Lifter/Driver Name Role Phone Belkys Bundy DO Primary Care Provider +1- [phone] Reason for Referral * Consultation (Routine) - Authorized Specialty Diagnoses / Procedures Referred By Rossy levine Referred To Contact Pulmonology Diagnoses Other specified counseling Awaiting organ transplant status Dyspnea, unspecified Other abnormalities of breathing Chronic obstructive pulmonary disease, unspecified ENCOUNTER FOR BIPAP USE COUNSELING, LUNG TRANSPLANT CANDIDATE. PLEASE EVAL FOR C-PAP/BI-PAP PER [facility] PULM DATA Belkys Bundy DO [address] [place] [address] [facility] [address] [place] [phone] Referral ID Status Reason Start Date Expiration Date Visits Requested Visits Authorized [id number] Authorized Consult, Test & Treat PCP Updated and/or Approved 10/27/2023 04/28/2024 6 6 Encounter Details Date Type Department Care Team (Latest Contact Info) Description 11/22/2023 Transcribe Orders eDH Incoming Referrals [phone] Belkys Bundy DO [address] [place], [place] [id number] Other specified counseling Social History Tobacco Use [...] 4:00 PM EDT [place] [address] Kira Thayer MD [facility] [place] [address] Scheduled Referrals Name Type Priority Associated Diagnoses Order Schedule Referral to Pulmonology Outpatient Referral Routine Other specified counseling Ordered: 11/22/2023 documented as of this encounter Visit Diagnoses Diagnosis Other specified counseling documented in this encounter Care Teams Lifter/Driver Relationship Specialty Start Date End Date Belkys Bundy DO [address] [place] [address] PCP - General Family Medicine 03/21/19 documented as of this encounter
--- OUTSIDE RECORDS SUMMARY | 2024-04-23 18:36 | XMS_ITS | Encounter Summary ---
Author Organization [facility] [place] [address] Care Team Providers Care Ibm Mainframe Systems Programmer Name Role Phone Belkys Bundy Primary Care Provider +1- [phone] Encounter Details Date Type Department Care Team (Late st Contact Info) Description 03/22/2024 Telephone [place] [address] Tasha Obrien, RN Social History Tobacco Use [...] - 03/22/2024 8:37 AM EST Copied from [facility] #[id number]. Topic: Specialty Dept CRMs - Form Request [...] the dated needed for the paperwork from [place], but now know start date should be today 03/19/24 and end date 3 months from now. After completion please: Fax to: Suleiman's employer. Patient informed that completion of this request can take 5-7 business days. documented in this encounter Plan of Treatment Upcoming Encounters Date Type Department Care Team (Late st Contact Info) Description 08/27/2024 4:00 PM EDT Office Visit [place] [address] Kira Thayer MD [facility] [place] [address] documented as of this encounter Visit Diagnoses Not on filedocumented in this encounter Care Teams Ibm Mainframe Systems Programmer Relationship Specialty Start Date End Date Belkys Bundy DO [address] [place] [address] PCP - General Family Medicine 03/21/19 documented as of this encounter
--- OUTSIDE RECORDS SUMMARY | 2024-04-23 18:36 | XMS_ITS | Encounter Summary ---
Author Organization [facility] [place] [address] Care Team Providers Care Bookkeeping Clerk Name Role Phone Belkys Bundy Primary Care Provider +1- [phone] Encounter Details Date Type Department Care Team (Late st Contact Info) Description 11/22/2022 Tele[place] [address] Juanis Osullivan RT Social History Tobacco Use [...] EDT Office [place] [address] Kira Thayer MD [facility] [place] [address] documented as of this encounter Visit Diagnoses Not on filedocumented in this encounter Care Teams Bookkeeping Clerk Relationship Specialty Start Date End Date Belkys Bundy DO [facility] [address] [address] PCP - General Family Medicine 03/21/19 documented as of this encounter
--- OUTSIDE RECORDS SUMMARY | 2024-04-23 18:36 | XMS_ITS | Encounter Summary ---
[place] [address] Care Team Providers Care Laundry Operator Wash Room Name Role Phone Belkys Bundy DO Primary Care Provider +1- [phone] Reason for Visit * Reason Onset Date Comments Pre Procedure Call 08/23/2023 Encounter Details Date Type Department Care Team (Late st Contact Info) Description 08/23/2023 Telephone [place] [address] Emily Starr RN Pre Procedure Call Social [...] - 08/23/2023 1:17 PM EDT Copied from [facility] #[id number]. Topic: Specialty Dept CRMs - Generic Call >> August 18, 2023 2:30 PM Sera Santana wrote: Specialist: Kira Thayer MD Relationship (if other than patient-full name): Praveena Allred, Advertising Agency Manager from [facility] - Patients PCP's Office Reason for Call: Praveena Allred, Advertising Agency Manager from [facility], Patients Provider called today wanting to know if Patients City Auditor could give Patient clearance for a colonoscopy, which is required from [facility] in order for Patient to have a lung transplant. Praveena states that the lung transplant can not get schedule until Patient is cleared for a colonoscopy. documented in this encounter Plan of Treatment Upcoming Encounters Date Type Department Care Team (Late st Contact Info) Description 08/27/2024 4:00 PM EDT Office Visit [place] [address] Kira Thayer MD [facility] [place] [address] documented as of this encounter Visit Diagnoses Not on filedocumented in this encounter Care Teams Laundry Operator Wash Room Relationship Specialty Start Date End Date Belkys Bundy DO [address] [place] [address] PCP - General Family Medicine 03/21/19 documented as of this encounter
--- OUTSIDE RECORDS SUMMARY | 2024-04-23 18:36 | XMS_ITS | Encounter Summary ---
[place] [address] Care Team Providers Care Network Field Engineer Name Role Phone AnaBelkys moise Primary Care Provider +1- [phone] Reason for Visit * Reason Onset Date Comments Oxygen Dependence 12/19/2023 Overnight Puls e Oximetry Testing Requisition Encounter Details Date Type Department Care Team (Late st Contact Info) Description 12/19/2023 Telephone [place] [address] Emily Starr RN Oxygen Dependence (Overnight Pulse [...] Oximetry Requisition, signed by Dr. Thayer, to [facility]. Attached to this was the following items: Patient Demographics, This covered the following items: To be performed on home 2L [place] Oxygen Fax submission confirmation time stamped for @ 6151. 4 pages with cover sheet. documented in this encounter Plan of Treatment Upcoming Encounters Date Type Department Care Team (Late st Contact Info) Description 08/27/2024 4:00 PM EDT Office Visit [place] [address] Kira Thayer MD [facility] [place] [address] documented as of this encounter Visit Diagnoses Not on filedocumented in this encounter Care Teams Network Field Engineer Relationship Specialty Start Date End Date Belkys Bundy DO [address] [place] [address] PCP - General Family Medicine 03/21/19 documented as of this encounter
--- OUTSIDE RECORDS SUMMARY | 2024-04-23 18:37 | XMS_ITS | Encounter Summary ---
[place] [address] Care Team Providers Care Strategic Analyst Name Role Phone Belkys Bundy Primary Care Provider +1- [phone] Reason for Referral * Diagnostic Test (Routine) - Closed Specialty Diagnoses / Procedures Referred By Contac t Referred To Contact Radiology Diagnoses Pulmonary nodule Procedures CT Chest wo Contrast (Generic) Kira Thayer MD [facility] [place] [address] [facility] [place] [address] Referral ID Status Reason Start Date Expiration Date V isits Requested Visits Authorized [id number] Closed Specialty Service Requested 03/02/2021 08/30/2022 1 1 Reason for Visit * Diagnostic Test (Routine) - Closed Specialty Diagnoses / Procedures Referred By Contac t Referred To Contact Radiology Diagnoses Pulmonary nodule Procedures CT Chest wo Contrast (Generic) Kira Thayer MD [facility] [place] [address] [facility] [place] [address] Referral ID Status Reason Start Date Expiration Date V isits Requested Visits Authorized [id number] Closed Specialty Service Requested 03/02/2021 08/30/2022 1 1 Encounter Details Date Type Department Care Team (Latest Contact Info) Description 06/03/2021 7:29 AM EST - 06/03/2021 8:29 AM EST Hospital Encounter CT Scan at [facility] [place] [address] Kira Thayer MD [facility] [place] [address] Pulmonary nodule Discharge Disposition: Home Social History [...] End Date inhalational spacing device (Ricci Aerosol [place] Enhancer) Spacer .MEDSUPPLY 02/01/2020 levothyroxine (Synthroid) 100 [...] 11 07/16/2020 fluticasone propionate (FLONASE) 50 mcg/actuation [place], Suspension 02/01/2020 atorvastatin (Lipitor) 20 mg Tablet [...] EDT [place] [address] Kira Thayer MD [facility] [place] [address] documented as of this encounter Procedures Procedure [...] have questions please contact the health care manager that requested your imaging first. ? Narrative 06/03/2021 9:35 AM EST EXAMINATION: CT [...] thoracic aorta stable at 3 cm. No [place] coronary artery calcification. Other mediastinal structures: No [...] ascendingthoracic aorta stable at 3 cm. No [place] coronary artery calcification. Other mediastinal structures: No [...] who have questions please contactthe health care manager that requested your imaging first. Kira Thayer MD IMG CT ORDERABLES documented in this encounter Visit Diagnoses Diagnosis Pulmonary nodule Solitary pulmonary nodule documented in this encounter Care Teams Strategic Analyst Relationship Specialty Start Date End Date Belkys Bundy DO [address] [place] [address] PCP - General Family Medicine 03/21/19 documented as of this encounter
--- OUTSIDE RECORDS SUMMARY | 2024-04-23 18:37 | XMS_ITS | Encounter Summary ---
Author Organization [facility] [place] [address] Care Team Providers Care Mortgage Protection Sales Name Role Phone Belkys Bundy DO Primary Care Provider +1- [phone] Encounter Details Date Type Department Care Team (Late st Contact Info) Description 08/05/2022 Telephone [place] [address] Millicent Valles Social History Tobacco [...] 4:00 PM EDT Office [place] [address] Kira Thayer MD [facility] [place] [address] documented as of this encounter Visit Diagnoses Not on filedocumented in this encounter Care Teams Mortgage Protection Sales Relationship Specialty Start Date End Date Belkys Bundy DO [address] [place] [address] PCP - General Family Medicine 03/21/19 documented as of this encounter
--- OUTSIDE RECORDS SUMMARY | 2024-04-23 18:37 | XMS_ITS | Encounter Summary ---
Author Organization [facility] [place] [address] Care Team Providers Care Leasing Machine Tender Name Role Phone Belkys Bundy Primary Care Provider +1- [phone] Encounter Details Date Type Department Care Team (Latest Contact Info) Description 08/05/2022 3:00 PM EDT TH Visit (TeleHealth) [place] [address] Kira Thayer MD [facility] [address] [place] [address] COPD, very severe; Supplemental oxygen dependent; Tobacco [...] from the original note were not included. [facility] Section of Pulmonary and Critical Care Medicine [...] for follow-up. Chest CT was done at [facility] a couple weeks ago, and she was [...] due to dyspnea. She was working at [facility] [employer]. She thinks she stopped working in 2012. [...] to Visit Medication Sig Dispense Refill ??? yblsnqarlng-feiuzwnmzaru-fyltslyejv (Trelegy Ellipta) 200-62.5-25 mcg Inhale 1 puff into the lungs daily. 28 each 11 ??? inhalational spacing device (Ricci Aerosol [place] Enhancer) Spacer .MEDSUPPLY ??? levothyroxine (Synthroid) 100 [...] 11 ??? fluticasone propionate (FLONASE) 50 mcg/actuation [place], Suspension ??? nicotine (NICODERM CQ) 21 mg/24 [...] involve a referral to a center in [place], and that she needs to quit smoking [...] on day of visit. Kira Thayer MD ON LICENSE OF [facility] PULMONOLOGY AT [facility] [address] Dept: [phone] Loc: [phone] documented in this encounter Plan of Treatment Upcoming Encounters Date Type Department Care Team (Late st Contact Info) Description 08/27/2024 4:00 PM EDT Office [place] [address] Kira Thayer MD [facility] [address] [place] [address] documented as of this encounter Visit Diagnoses Diagnosis COPD, very severe Chronic airway obstruction, not elsewhere classified Supplemental oxygen dependent Dependence on supplemental oxygen Tobacco use Tobacco use disorder documented in this encounter Care Teams Leasing Machine Tender Relationship Specialty Start Date End Date Belkys Bundy DO [address] [place] [address] PCP - General Family Medicine 03/21/19 documented as of this encounter
--- OUTSIDE RECORDS SUMMARY | 2024-04-23 18:37 | XMS_ITS | Encounter Summary ---
Author Organization [facility] [place] [address] Care Team Providers Care Bellows Filler Name Role Phone OliverLizeth mooresea Rachel DO Primary Care Provider +1- [phone] Encounter Details Date Type Department Care Team (Late st Contact Info) Description 05/20/2021 Telephone [place] [address] Millicent Valles Social History Tobacco Use Types [...] 4:00 PM EDT Office [place] [address] Kira Thayer MD [facility] [place] [address] documented as of this encounter Visit Diagnoses Not on filedocumented in this encounter Care Teams Bellows Filler Relationship Specialty Start Date End Date Belkys Bundy DO [address] [place] [address] PCP - General Family Medicine 03/21/19 documented as of this encounter
--- OUTSIDE RECORDS SUMMARY | 2024-04-23 18:37 | XMS_ITS | Encounter Summary ---
Author Organization [facility] [place] [address] Care Team Providers Care Community Marketing Manager Name Role Phone Belkys Bundy Primary Care Provider +1- [phone] Encounter Details Date Type Department Care Team (Latest Contact Info) Description 03/31/2022 8:34 AM EST - 03/31/2022 11:59 PM EST Hospital En[place] [address] COPD, very severe Discharge Disposition: Home Social [...] End Date inhalational spacing device (Ricci Aerosol [place] Enhancer) Spacer .MEDSUPPLY 02/01/2020 levothyroxine (Synthroid) 100 [...] 11 07/16/2020 fluticasone propionate (FLONASE) 50 mcg/actuation [place], Suspension 02/01/2020 atorvastatin (Lipitor) 20 mg Tablet [...] 4:00 PM EDT Office [place] [address] Kira Thayer MD [facility] [address] [place] [address] documented as of this encounter Procedures Procedure [...] / FVC LLN 69 % COMPAS PFT SBV80-17 Actual Pre-BD 0.30 L/s COMPAS PFT [id number] Pre-BD % of Predicted 11 % COMPAS PFT DIR67-03 Predicted 2.74 L/s COMPAS PFT [id number] Pre-BD Z-Score -4.27 COMPAS PFT DLCO Hb [...] classified documented in this encounter Care Teams Community Marketing Manager Relationship Specialty Start Date End Date Belkys Bundy DO [address] [place] [address] PCP - General Family Medicine 03/21/19 documented as of this encounter
--- OUTSIDE RECORDS SUMMARY | 2024-04-23 18:37 | XMS_ITS | Encounter Summary ---
Author Organization [facility]ly [facility] [place] [address] Care Team Providers Care Physician Practice Consultant Name Role Phone Belkys Bundy DO Primary Care Provider +1- [phone] Encounter Details Date Type Department Care Team (Late st Contact Info) Description 07/15/2022 Ancillary Procedure Radiology Library at [place] [address] Kira Thayer MD [facility] [place] [address] Social History Tobacco Use Types Packs/Day Years [...] 4:00 PM EDT Office Visit Pulmonology at [facility] [place] [address] Kira Thayer MD [facility] [place] [address] documented as of this encounter Procedures Procedure [...] FILM LIBRARY ORD ERABLES Performing Organization Address City/State/[facility] Co de Phone Number [place], [place] documented in this encounter Visit Diagnoses Not on filedocumented in this encounter Care Teams Physician Practice Consultant Relationship Specialty Start Date End Date Belkys Bundy DO [address] [place] [address] PCP - General Family Medicine 03/21/19 documented as of this encounter
--- OUTSIDE RECORDS SUMMARY | 2024-04-23 18:37 | XMS_ITS | Encounter Summary ---
[place] [address] Care Team Providers Care Developer Advocate Name Role Phone Belkys Bundy Primary Care Provider +1- [phone] Reason for Visit * Reason Onset Date Comments Disability Paperwork 08/05/2022 Encounter Details Date Type Department Care Team (Late st Contact Info) Description 08/05/2022 Telephone [place] [address] Emily Starr RN Disability Paperwork Social History [...] filled and signed by Dr. Thayer to [facility]. Fax submission confirmation time stamped for 08/05/2022 @ 6403. 4 pages with coversheet. Mailed copy of original paperwork to patient's address on file. Sent copy to scanning for inclusionto patient records. documented in this encounter Plan of Treatment Upcoming Encounters Date Type Department Care Team (Late st Contact Info) Description 08/27/2024 4:00 PM EDT Office [place] [address] [facility] [place] [address] documented as of this encounter Visit Diagnoses Not on filedocumented in this encounter Care Teams Developer Advocate Relationship Specialty Start Date End Date Belkys Bundy DO [address] [place] [address] PCP - General Family Medicine 03/21/19 documented as of this encounter
--- OUTSIDE RECORDS SUMMARY | 2024-04-23 18:37 | XMS_ITS | Encounter Summary ---
Author Organization [facility] [place] [address] Care Team Providers Care Store Sales Consultant Name Role Phone Belkys Bundy Primary Care Provider +1- [phone] Encounter Details Date Type Department Care Team (Late st Contact Info) Description 03/31/2022 11:00 AM EST Office [place] [address] Kira Thayer MD [facility] [place] [address] COPD, very severe; Supplemental oxygen dependent; Tobacco [...] Refill ??? inhalational spacing device (Ricci Aerosol [place] Enhancer) Spacer .MEDSUPPLY ??? levothyroxine (Synthroid) 100 mcg Tablet Take 100 mcg by mouth nightly. ??? linaCLOtide (Linzess) 72 mcg Capsule Take 72 mcg by mouth every morning. Take 30 minutes beforemeal ??? potassium chloride (KLOR-CON) 20 mEq Packet Take 20 mEq by mouth 2 times daily. ??? ixstpwjwrst-zxwsnkvhx-ocpxktzf (Trelegy Ellipta) 200-62.5-25 mcg Disk with Device [...] 11 ??? fluticasone propionate (FLONASE) 50 mcg/actuation [place], Suspension ??? nicotine (NICODERM CQ) 21 mg/24 [...] involve a referral to a center in [place]. Summary Recommendations: - continue trelegy inhaler 200 [...] further questions or concerns. Kira Thayer MD [facility] [address] Dept: [phone] Loc: [phone] documented in this encounter Plan of Treatment Upcoming Encounters Date Type Department Care Team (Late st Contact Info) Description 08/27/2024 4:00 PM EDT Office Visit Pulmonology at [facility] [place] [address] Kira Thayer MD [facility] [place] [address] documented as of this encounter Results * [...] / FVC LLN 69 % COMPAS PFT QEX79-63 Actual Pre-BD 0.19 L/s COMPAS PFT KIG25-18 Pre-BD % of Predicted 7 % COMPAS PFT HNI14-47 Predicted 2.71 L/s COMPAS PFT MPE93-45 Pre-BD Z-Score -4.66 COMPAS PFT DLCO Hb [...] classified documented in this encounter Care Teams Store Sales Consultant Relationship Specialty Start Date End Date Belkys Bundy DO [address] [place] [address] PCP - General Family Medicine 03/21/19 documented as of this encounter
--- OUTSIDE RECORDS SUMMARY | 2024-04-23 18:37 | XMS_ITS | Encounter Summary ---
[place] [address] Care Team Providers Care Charge Auditor Name Role Phone Belkys Bundy Primary Care Provider +1- [phone] Encounter Details Date Type Department Care Team (Late st Contact Info) Description 03/30/2022 Telephone [place] [address] Carolyn Henry RMA Social History Tobacco Use [...] 4:00 PM EDT Office [place] [address] Kira Thayer MD [facility] [place] [address] documented as of this encounter Visit Diagnoses Not on filedocumented in this encounter Care Teams Charge Auditor Relationship Specialty Start Date End Date Belkys Bundy DO [address] [place] [address] [place] [address] PCP - General Family Medicine 03/21/19 documented as of this encounter
--- OUTSIDE RECORDS SUMMARY | 2024-04-23 18:37 | XMS_ITS | Encounter Summary ---
[place] [address] Care Team Providers Care Vice President Consulting Services Name Role Phone Belkys Bundy Virginie MYRICK Primary Care Provider +1- [phone] Reason for Referral * Diagnostic Test (Routine) - Closed Specialty Diagnoses / Procedures Referred By Contac t Referred To Contact Radiology Diagnoses Bacterial pneumonia Procedures CT Chest wo Contrast (Generic) Kira Thayer MD [facility] [place] [address] [facility] [place] [address] Referral ID Status Reason Start Date Expiration Date V isits Requested Visits Authorized [id number] Closed Specialty Service Requested 10/18/2022 04/20/2024 1 1 Reason for Visit * Diagnostic Test (Routine) - Closed Specialty Diagnoses / Procedures Referred By Contac t Referred To Contact Radiology Diagnoses Bacterial pneumonia Procedures CT Chest wo Contrast (Generic) Kira Thayer MD [facility] [place] [address] [facility] [place] [address] Referral ID Status Reason Start Date Expiration Date V isits Requested Visits Authorized [id number] Closed Specialty Service Requested 10/18/2022 04/20/2024 1 1 Encounter Details Date Type Department Care Team (Latest Contact Info) Description 10/25/2022 7:48 AM EDT - 10/25/2022 11:59 PM EDT Hospital Encounter CT Scan at [facility] [place] [address] Kira Thayer MD [facility] [place] [address] Bacterial pneumonia Discharge Disposition: Home Social History [...] End Date inhalational spacing device (Ricci Aerosol [place] Enhancer) Spacer .MEDSUPPLY 02/01/2020 levothyroxine (Synthroid) 100 [...] 11 07/16/2020 fluticasone propionate (FLONASE) 50 mcg/actuation [place], Suspension 02/01/2020 atorvastatin (Lipitor) 20 mg Tablet [...] mg tablet 04/12/2013 predniSONE (Deltasone) 20 mg tabletIndications:JEWELSMITH D, very severe Take 1 tablet by [...] EVERY DAY NEEDED FOR COPD EXACERBATION; ALERT MOTOR EXPRESS CLERK AND PCP 09/01/2022 06/20/2023 potassium chloride (KLOR-CON) [...] PM EDT Office [place] [address] Kira Thayer MD [facility] [place] [address] documented as of this encounter Procedures Procedure [...] who have questions please contact the health childcare director that requested your imaging first. ? Electronically signed by: Raheem Morin MD, [facility] ??([phone]), at 10/25/2022 10:54 AM Narrative 10/25/2022 10:54 [...] patients who have questions please contactthe health childcare director that requested your imaging first. Kira Thayer MD IMG CT ORDERABLES documented in this encounter Visit Diagnoses Diagnosis Bacterial pneumonia Bacterial pneumonia, unspecified documented in this encounter Care Teams Vice President Consulting Services Relationship Specialty Start Date End Date Belkys Bundy DO [address] [place] [address] PCP - General Family Medicine 03/21/19 documented as of this encounter
--- OUTSIDE RECORDS SUMMARY | 2024-04-23 18:37 | XMS_ITS | Encounter Summary ---
Author Organization [facility] Address [facility] [place] [address] Care Team Providers Care Supervisor Insulation Name Role Phone Belkys Bundy Primary Care Provider +1- [phone] Encounter Details Date Type Department Care Team (Late st Contact Info) Description 09/13/2022 8:00 AM EDT Office [place] [address] Kira Thayer MD [facility] [place] [address] COPD, very severe; COPD with exacerbation Social [...] this week. Take a sputum sample to [facility] lab. documented in this [...] EVERY DAY NEEDED FOR COPD EXACERBATION; ALERT OPERATING ROOM SCHEDULER AND PCP ysnpggjfeeu-iwpecwagkmwv-dzrkopggds (Trelegy Ellipta) 200-62.5-25 mcg Inhale 1 puff into the lungs daily. 28 each 11 inhalational spacing device (Ricci Aerosol [place] Enhancer) Spacer .MEDSUPPLY levothyroxine (Synthroid) 100 mcg [...] tablet 11 fluticasone propionate (FLONASE) 50 mcg/actuation [place], Suspension nicotine (NICODERM CQ) 21 mg/24 hr [...] involve a referral to a center in [place], and that she needs to quit smoking [...] on day of visit. MD Omari Hogue [facility] PULMONOLOGY AT [facility] [address] Dept: [phone] Loc: [phone] documented in this encounter Plan of Treatment Upcoming Encounters Date Type Department Care Team (Late st Contact Info) Description 08/27/2024 4:00 PM EDT Office Visit [place] [address] Kira Thayer MD [facility] [place] [address] documented as of this encounter Procedures Procedure [...] / FVC LLN 69 % COMPAS PFT QNW78-04 Actual Pre-BD 0.23 L/s COMPAS PFT AGD43-62 Pre-BD % of Predicted 8 % COMPAS PFT TJQ82-02 Predicted 2.71 L/s COMPAS PFT QIQ97-84 Pre-BD Z-Score -4.49 COMPAS PFT DLCO Hb [...] Thayer MD PFT ORDERABLES Performing Organization Address City/[facility] Co de Phone Number COMPAS PFT * AFB culture (09/13/2022 8:43 AM EDT) Acid Fast Bacilli Culture No Acid Fast Bacilli isolated If active tuberculosis is suspected, the patient should be on AIRBORNE PRECAUTIONS. Call Infection Prevention for assistance if needed. [facility] Acid Fast Stain No Acid Fast Bacilli seen [facility] Sputum Expectorated 09/14/19 8:43 AM EDT 09/13/2022 9:13 AM EDT Narrative Resulting Agency Comment Spec In Lab Kira Thayer MD MICROBIOLOGY - GENER AL ORDERABLES Performing Organization Address [facility] Co de Phone Number [facility] [place] [address] * (ABNORMAL) Lower Respiratory Culture (09/13/2022 8:43 AM EDT) Lower Respiratory Culture Many mixed bacterial morphotypes suggestive of normal upper respiratory roxanne(A) [facility] Gram Stain Many Neutrophils seen Moderate squamous epithelial cells seen Many Gram Positive Cocci seen (A) [facility] Organism Gram Positive Cocci(A) [facility] Sputum Expectorated 09/14/19 8:43 AM EDT 09/13/2022 9:12 AM EDT Narrative Resulting Agency Comment Spec In Lab Kira Thayer MD MICROBIOLOGY - GENER AL ORDERABLES Performing Organization Address [facility] Co de Phone Number [facility] [place] [address] documented in this encounter Visit Diagnoses Diagnosis COPD, very severe Chronic airway obstruction, not elsewhere classified COPD with exacerbation Obstructive chronic bronchitis with exacerbation COPD, very severe Chronic airway obstruction, not elsewhere classified documented in this encounter Care Teams Supervisor Insulation Relationship Specialty Start Date End Date Belkys Bundy DO [address] [place] [address] PCP - General Family Medicine 03/21/19 documented as of this encounter
--- OUTSIDE RECORDS SUMMARY | 2024-04-23 18:37 | XMS_ITS | Encounter Summary ---
Author Organization [facility] Address [facility] [place] [address] Care Team Providers Care Adult Neuropsychologist Name Role Phone Belkys Bundy Primary Care Provider +1- [phone] Encounter Details Date Type Department Care Team (Late st Contact Info) Description 06/03/2021 9:00 AM EST Office [place] [address] Kira Thayer MD [facility] [address] COPD, very severe; Chronic obstructive pulmonary disease, [...] from the original note were not included. [facility] Section of Pulmonary and Critical Care [...] to Visit Medication Sig Dispense Refill ??? jxrmfxqbtxq-osimgqcba-ppbryvbn (Trelegy Ellipta) 200-62.5-25 mcg Disk with Device [...] 11 ??? fluticasone propionate (FLONASE) 50 mcg/actuation [place], Suspension ??? atorvastatin (Lipitor) 20 mg Tablet [...] further questions or concerns. MD Omari Hogue [facility] PULMONOLOGY AT [facility] [address] Dept: [phone] Loc: [phone] documented in this encounter Plan of Treatment Upcoming Encounters Date Type Department Care Team (Late st Contact Info) Description 08/27/2024 4:00 PM EDT Office [place] [address] Kira Thayer MD [facility] [place] [address] documented as of this encounter Visit Diagnoses Diagnosis COPD, very severe Chronic airway obstruction, not elsewhere classified Chronic obstructive pulmonary disease, unspecified COPD type Supplemental oxygen dependent Dependence on supplemental oxygen Pulmonary nodule Solitary pulmonary nodule Tobacco use Tobacco use disorder documented in this encounter Care Teams Adult Neuropsychologist Relationship Specialty Start Date End Date Belkys Bundy DO [address] [place] [address] PCP - General Family Medicine 03/21/19 documented as of this encounter
--- OUTSIDE RECORDS SUMMARY | 2024-04-23 18:37 | XMS_ITS | Encounter Summary ---
Author Organization [facility] [place] [address] Care Team Providers Care Acid Polymerization Operator Name Role Phone Belkys Bundy DO Primary Care Provider +1- [phone] Encounter Details Date Type Department Care Team (Late st Contact Info) Description 07/05/2022 Tele[place] [address] Millicent Valles Social History Tobacco [...] 4:00 PM EDT Office [place] [address] Kira Thayer MD [facility] [place] [address] documented as of this encounter Visit Diagnoses Not on filedocumented in this encounter Care Teams Acid Polymerization Operator Relationship Specialty Start Date End Date Belkys Bundy DO [address] [place] [address] PCP - General Family Medicine 03/21/19 documented as of this encounter
--- OUTSIDE RECORDS SUMMARY | 2024-04-23 18:37 | XMS_ITS | Encounter Summary ---
Author Organization [facility] [place] [address] Care Team Providers Care Cupola Man Name Role Phone Belkys Bundy DO Primary Care Provider +1- [phone] Reason for Visit * Reason Onset Date Comments Medication Refill 06/28/2022 Troy hawthorne Encounter Details Date Type Department Care Team (Late st Contact Info) Description 06/28/2022 [place] [address] Kira Thayer MD [facility] [place] [address] COPD, very severe Social History Tobacco Use [...] EDT Office [place] [address] Kira Thayer MD [facility] [place] [address] documented as of this encounter Visit Diagnoses Diagnosis COPD, very severe Chronic airway obstruction, not elsewhere classified documented in this encounter Care Teams Cupola Man Relationship Specialty Start Date End Date Belkys Bundy DO [address] [place] [address] PCP - General Family Medicine 03/21/19 documented as of this encounter
--- OUTSIDE RECORDS SUMMARY | 2024-04-23 18:37 | XMS_ITS | Encounter Summary ---
Author Organization [facility] [place] [address] Care Team Providers Care Order Processor Name Role Phone Belkys Bundy Primary Care Provider +1- [phone] Reason for Visit * Reason Onset Date Comments Request For Record 01/14/2022 Encounter Details Date Type Department Care Team (Late st Contact Info) Description 01/14/2022 [place] [address] Emily Starr RN Request For Record Social [...] submission confirmation time stamped for 01/14/2022 @ 5827, 20 pages with cover sheet. documented in this encounter Plan of Treatment Upcoming Encounters Date Type Department Care Team (Late st Contact Info) Description 08/27/2024 4:00 PM EDT [place] [address] Kira Thayer MD [facility] [place] [address] documented as of this encounter Visit Diagnoses Not on filedocumented in this encounter Care Teams Order Processor Relationship Specialty Start Date End Date Belkys Bundy DO [address] [place] [address] PCP - General Family Medicine 03/21/19 documented as of this encounter
--- OUTSIDE RECORDS SUMMARY | 2024-04-23 18:37 | XMS_ITS | Encounter Summary ---
Author Organization [facility] [place] [address] Care Team Providers Care Chute Loader Name Role Phone Belkys Bundy DO Primary Care Provider +1- [phone] Encounter Details Date Type Department Care Team [...] 4:00 PM EDT Office [place] [address] Kira Thayer MD [facility] [place] [address] documented as of this encounter Visit Diagnoses Not on filedocumented in this encounter Care Teams Chute Loader Relationship Specialty Start Date End Date Belkys Bundy DO [address] [place], [place] [address] PCP - General Family Medicine 03/21/19 documented as of this encounter
--- OUTSIDE RECORDS SUMMARY | 2024-04-23 18:37 | XMS_ITS | Encounter Summary ---
Author Organization [facility] [place] [address] Care Team Providers Care Cyber Special Agent Name Role Phone Belkys Bundy DO Primary Care Provider +1- [phone] Encounter Details Date Type Department Care Team (Late st Contact Info) Description 08/04/2022 [place] [address] Millicent Valles Social History Tobacco Use Types [...] 4:00 PM EDT [place] [address] Kira Thayer MD [facility] [place] [address] documented as of this encounter Visit Diagnoses Not on filedocumented in this encounter Care Teams Cyber Special Agent Relationship Specialty Start Date End Date Belkys Bundy DO [address] [place] [address] PCP - General Family Medicine 03/21/19 documented as of this encounter
--- OUTSIDE RECORDS SUMMARY | 2024-04-23 18:37 | XMS_ITS | Encounter Summary ---
[place] [address] Care Team Providers Care Cat Scanner Operator Name Role Phone Belkys Bundy Primary Care Provider +1- [phone] Encounter Details Date Type Department Care Team (Latest Contact Info) Description 10/18/2022 7:22 AM EDT - 10/18/2022 11:59 PM EDT Hospital En[place] [address] COPD, very severe Discharge Disposition: Home Social [...] End Date inhalational spacing device (Ricci Aerosol [place] Enhancer) Spacer .MEDSUPPLY 02/01/2020 levothyroxine (Synthroid) 100 [...] 11 07/16/2020 fluticasone propionate (FLONASE) 50 mcg/actuation [place], Suspension 02/01/2020 atorvastatin (Lipitor) 20 mg Tablet [...] mg tablet 04/12/2013 predniSONE (Deltasone) 20 mg tabletIndications:TRANSPORTATION PROGRAM DIRECTOR D, very severe Take 1 tablet by [...] EVERY DAY NEEDED FOR COPD EXACERBATION; ALERT BOOT AND 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 AND PCP 09/01/2022 06/20/2023 potassium chloride (KLOR-CON) [...] EDT Office [place] [address] Kira Thayer MD [facility] [place] [address] documented as of this encounter Procedures Procedure [...] / FVC LLN 69 % COMPAS PFT [id number] Actual Pre-BD 0.23 L/s COMPAS PFT YUG95-81 Pre-BD % of Predicted 8 % COMPAS PFT KUE83-85 Predicted 2.71 L/s COMPAS PFT YFY08-27 Pre-BD Z-Score -4.49 COMPAS PFT DLCO Hb [...] classified documented in this encounter Care Teams Cat Scanner Operator Relationship Specialty Start Date End Date Belkys Bundy DO [address] [place] [address] PCP - General Family Medicine 03/21/19 documented as of this encounter
--- OUTSIDE RECORDS SUMMARY | 2024-04-23 18:37 | XMS_ITS | Encounter Summary ---
Author Organization [facility] [place] [address] Care Team Providers Care Restaurant Area Manager Name Role Phone OliverLizeth mooresea Rachel DO Primary Care Provider +1- [phone] Encounter Details Date Type Department Care Team (Late st Contact Info) Description 09/22/2021 [place] [address] Millicent Valles Social History Tobacco [...] 4:00 PM EDT [place] [address] Kira Thayer MD [facility] [place] [address] documented as of this encounter Visit Diagnoses Not on filedocumented in this encounter Care Teams Restaurant Area Manager Relationship Specialty Start Date End Date Belkys Bundy DO [address] [place] [address] PCP - General Family Medicine 03/21/19 documented as of this encounter
--- OUTSIDE RECORDS SUMMARY | 2024-04-23 18:37 | XMS_ITS | Encounter Summary ---
Author Organization [facility] Address [facility] [place] [address] Care Team Providers Care Eyeglass Frames Polisher Name Role Phone Belkys Bundy DO Primary Care Provider +1- [phone] Encounter Details Date Type Department Care Team [...] 4:00 PM EDT Office [place] [address] Kira Thayer MD [facility] [place] [address] documented as of this encounter Visit Diagnoses Not on filedocumented in this encounter Care Teams Eyeglass Frames Polisher Relationship Specialty Start Date End Date Belkys Bundy DO [address] [place] [address] PCP - General Family Medicine 03/21/19 documented as of this encounter
--- OUTSIDE RECORDS SUMMARY | 2024-04-23 18:37 | XMS_ITS | Encounter Summary ---
Author Organization [facility] [place] [address] Care Team Providers Care Lastex Operator Name Role Phone Belkys Bundy DO Primary Care Provider +1- [phone] Encounter Details Date Type Department Care Team [...] 4:00 PM EDT Office [place] [address] Kira Thayer MD [facility] [place] [address] documented as of this encounter Visit Diagnoses Not on filedocumented in this encounter Care Teams Lastex Operator Relationship Specialty Start Date End Date Belkys Bundy DO [address] [place], [place] [address] PCP - General Family Medicine 03/21/19 documented as of this encounter
--- OUTSIDE RECORDS SUMMARY | 2024-04-23 18:37 | XMS_ITS | Encounter Summary ---
Author Organization [facility] [place] [address] Care Team Providers Care Drywall Hanger Framer Name Role Phone Belkys Bundy DO Primary Care Provider +1- [phone] Encounter Details Date Type Department Care Team (Late st Contact Info) Description 08/05/2022 [place] [address] Millicent Valles Social History Tobacco [...] 4:00 PM EDT [place] [address] Kira Thayer MD [facility] [place] [address] documented as of this encounter Visit Diagnoses Not on filedocumented in this encounter Care Teams Drywall Hanger Framer Relationship Specialty Start Date End Date Belkys Bundy DO [address] [place] [address] PCP - General Family Medicine 03/21/19 documented as of this encounter
--- OUTSIDE RECORDS SUMMARY | 2024-04-23 18:37 | XMS_ITS | Encounter Summary ---
Author Organization [facility] [place] [address] Care Team Providers Care Jigsawyer Name Role Phone Belkys Bundy Primary Care Provider +1- [phone] Encounter Details Date Type Department Care Team (Late st Contact Info) Description 09/09/2021 8:30 AM EDT [place] [address] Juanis Osullivan, RT COPD, very severe Social [...] 4:00 PM EDT Office [place] [address] Kira Thayer MD [facility] [place] [address] documented as of this encounter Visit Diagnoses Diagnosis COPD, very severe Chronic airway obstruction, not elsewhere classified documented in this encounter Care Teams Jigsawyer Relationship Specialty Start Date End Date Belkys Bundy DO [address] [place] [address] PCP - General Family Medicine 03/21/19 documented as of this encounter
--- OUTSIDE RECORDS SUMMARY | 2024-04-23 18:37 | XMS_ITS | Encounter Summary ---
Author Organization [facility] Address [facility] [place] [address] Care Team Providers Care Hoisting Pile Driving Engineer Name Role Phone Belkys Bundy Primary Care Provider +1- [phone] Encounter Details Date Type Department Care Team (Late st Contact Info) Description 09/09/2021 9:00 AM EDT Office [place] [address] Kira Thayer MD [facility] [place] [address] COPD, very severe; Supplemental oxygen dependent; Cigarette [...] the original note were not included. [facility] Section of Pulmonary and Critical Care Medicine [...] Refill ??? inhalational spacing device (Ricci Aerosol [place] Enhancer) Spacer .MEDSUPPLY ??? levothyroxine (Synthroid) 100 mcg Tablet Take 100 mcg by mouth nightly. ??? dceanhxunub-fbzdmpygb-rwebpgkl (Trelegy Ellipta) 200-62.5-25 mcg Disk with Device [...] 11 ??? fluticasone propionate (FLONASE) 50 mcg/actuation [place], Suspension ??? atorvastatin (Lipitor) 20 mg Tablet [...] involve a referral to a center in [place]. Summary Recommendations: - continue trelegy inhaler 200 [...] day of visit. Kira Thayer MD [facility] PULMONOLOGY AT [facility] [address] Dept: [phone] Loc: [phone] documented in this encounter Plan of Treatment Upcoming Encounters Date Type Department Care Team (Late st Contact Info) Description 08/27/2024 4:00 PM EDT Office [place] [address] Kira Thayer MD [facility] [place] [address] documented as of this encounter Results * [...] / FVC LLN 69 % COMPAS PFT [id number] Actual Pre-BD 0.30 L/s COMPAS PFT [id number] Pre-BD % of Predicted 11 % COMPAS PFT [id number] Predicted 2.74 L/s COMPAS PFT [id number] Pre-BD Z-Score -4.27 COMPAS PFT DLCO Hb [...] Predicted 4.30 mL/min/mmHg /L [facility]ative [facility] - 03/31/2022 8:40 AM EST FINDINGS: [...] classified documented in this encounter Care Teams Hoisting Pile Driving Engineer Relationship Specialty Start Date End Date Belkys Bundy DO [address] [facility] [place] [address] PCP - General Family Medicine 03/21/19 documented as of this encounter
--- OUTSIDE RECORDS SUMMARY | 2024-04-23 18:37 | XMS_ITS | Encounter Summary ---
Author Organization [facility] [place] [address] Care Team Providers Care Loan Administrator Name Role Phone Belkys Bundy Primary Care Provider +1- [phone] Encounter Details Date Type Department Care Team (Late st Contact Info) Description 11/27/2021 [place] [address] Carolyn Henry RMA Social History Tobacco Use [...] cancel appointment. I advised pt to call lockstitch front edge tape sewer to properly cancel & reschedule. documented in this encounter Plan of Treatment Upcoming Encounters Date Type Department Care Team (Late st Contact Info) Description 08/27/2024 4:00 PM EDT Office [place] [address] Kira Thayer MD [facility] [place] [address] documented as of this encounter Visit Diagnoses Not on filedocumented in this encounter Care Teams Loan Administrator Relationship Specialty Start Date End Date Belkys Bundy DO [address] [place] [address] PCP - General Family Medicine 03/21/19 documented as of this encounter
--- OUTSIDE RECORDS SUMMARY | 2024-04-23 18:37 | XMS_ITS | Encounter Summary ---
[place] [address] Care Team Providers Care Hand Hide Stretcher Name Role Phone Belkys Bundy Primary Care Provider +1- [phone] Reason for Referral * Diagnostic Test (Routine) - Closed Specialty Diagnoses / Procedures Referred By Rossy levine Referred To Contact Radiology Diagnoses Bacterial pneumonia Procedures CT Chest wo Contrast (Generic) Kira Thayer MD [facility] [place] [address] [facility] [place] [address] Referral ID Status Reason Start Date Expiration Date V isits Requested Visits Authorized [id number] Closed Specialty Service Requested 10/18/2022 04/20/2024 1 1 Encounter Details Date Type Department Care Team (Late st Contact Info) Description 10/18/2022 8:00 AM EDT Office [place] [address] Kira Thayer MD [facility] [place] [address] COPD, very severe; Tobacco use; [...] the original note were not included. [facility] Section of Pulmonary and Critical [...] Prior to Visit Medication Sig Dispense Refill xntsrrvllcp-rpsxgygskibn-zlisihuhqr (Trelegy Ellipta) 200-62.5-25 mcg Inhale 1 puff into the lungs daily. 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 Kira Thayer MD [facility] PULMONOLOGY AT [facility] [address] Dept: [phone] Loc: [phone] documented in this encounter Plan of Treatment Upcoming Encounters Date Type Department Care Team (Late st Contact Info) Description 08/27/2024 4:00 PM EDT Office [place] [address] Kira Thayer MD [facility] [place] [address] documented as of this encounter Procedures Procedure [...] have questions please contact the health healthcare specialist that requested your imaging first. ? Electronically signed by: Raheem Morin MD, [facility] ??([phone]), at 10/25/2022 10:54 AM Narrative 10/25/2022 10:54 [...] who have questions please contactthe health healthcare specialist that requested your imaging first. Kira Thayer MD IMG CT ORDERABLES * (ABNORMAL) Blood Gas Venous ([facility]) (10/18/2022 8:56 AM EDT) pH, Venous 7.35 7.32 - 7.42 [facility] PCO2, Venous 56(H) 41 - 51 mmHg [facility] PO2, Venous 42(H) 25 - 40 mmHg [facility] Bicarbonate, Venous 30.3 mmol/L [facility] Base Excess, Venous 4.7 mmol/L [facility] Hgb Blood Gas 15.7(H) 11.7 - 15.5 g/dL [facility] Oxyhemoglobin, Venous 74.0 % [facility] Carboxyhemoglob in, Venous 5.3 % [facility] Comment: Nonsmokers: 0.5-1.5% COHB Smokers: Variable, but usually less than 10% Toxic: 20-30% COHB Lethal: Greater than 60% COHB Methemoglobin, Venous 0.3 <=1.5 % [facility] Na Whole Blood 142 135 - 145 mmol/L [facility] K Whole Blood 3.5 3.5 - 5.0 mmol/L [facility] Comment: Please note: Patients with WBC >100,000 may have falsely elevated Potassium levels. Contact the Clinical Chemistry Laboratory if there are any questions. ICa Whole Blood 1.23 1.15 - 1.33 mmol/L [facility] Comment: Note: ??Total bilirubin higher than 20 mg/dL may lead to falsely low ionized calcium. CL Whole Blood 103 98 - 107 mmol/L [facility] Gluc Whole Bld 92 65 - 199 mg/dL [facility] Comment:Diabetes: >=200 mg/d L plus symptoms Lactate WB 1.7 0.5 - 2.2 mmol/L [facility] Blood Gas Source Venous [facility] Blood Venous Draw / Unknown 10/18/2022 8:56 AM EDT 10/18/2022 9:00 AM EDT Narrative Resulting Agency Comment Spec In Lab Kira Thayer MD CHEMISTRY ORDERABLES Performing Organization Address [facility] Co de Phone Number [facility] [place] [address] * (ABNORMAL) Lower Respiratory Culture Sputum Expectorated (10/18/2022 8:38 AM EDT) Lower Respiratory Culture Few mixed bacterial morphotypes suggestive of normal upper respiratory roxanne(A) [facility] Gram Stain Many Neutrophils seen Few squamous epithelial cells seen Few Gram Positive Cocci seen (A) [facility] Organism Gram Positive Cocci(A) [facility] Sputum Expectorated 10/19/19 8:38 AM EDT 10/18/2022 9:41 AM EDT Narrative Resulting Agency Comment Spec In Lab Kira Thayer MD MICROBIOLOGY - GENER AL ORDERABLES Performing Organization Address [facility] Co de Phone Number [facility] [place] [address] documented in this encounter Visit Diagnoses Diagnosis COPD, very severe Chronic airway obstruction, not elsewhere classified Tobacco use Tobacco use disorder Bacterial pneumonia Bacterial pneumonia, unspecified Bacterial pneumonia Bacterial pneumonia, unspecified documented in this encounter Care Teams Hand Hide Stretcher Relationship Specialty Start Date End Date Belkys Bundy DO [address] [place] [address] PCP - General Family Medicine 03/21/19 documented as of this encounter
--- OUTSIDE RECORDS SUMMARY | 2024-04-23 18:37 | XMS_ITS | Encounter Summary ---
Author Organization [facility] [place] [address] Care Team Providers Care Validation Specialist Name Role Phone Belkys Bundy DO Primary Care Provider +1- [phone] Encounter Details Date Type Department Care Team [...] 4:00 PM EDT Office [place] [address] Kira Thayer MD [facility] [place] [address] documented as of this encounter Visit Diagnoses Not on filedocumented in this encounter Care Teams Validation Specialist Relationship Specialty Start Date End Date Belkys Bundy DO [address] [place], [place] [address] PCP - General Family Medicine 03/21/19 documented as of this encounter
--- OUTSIDE RECORDS SUMMARY | 2024-04-23 18:37 | XMS_ITS | Encounter Summary ---
[place] [address] Care Team Providers Care Repeater Operator Name Role Phone Belkys Bundy Primary Care Provider +1- [phone] Encounter Details Date Type Department Care Team (Latest Contact Info) Description 09/13/2022 7:20 AM EDT - 09/13/2022 11:59 PM EDT Hospital [place] [address] COPD, very severe Discharge Disposition: Home Social [...] End Date inhalational spacing device (Ricci Aerosol [place] Enhancer) Spacer .MEDSUPPLY 02/01/2020 levothyroxine (Synthroid) 100 [...] 11 07/16/2020 fluticasone propionate (FLONASE) 50 mcg/actuation [place], Suspension 02/01/2020 atorvastatin (Lipitor) 20 mg Tablet [...] EVERY DAY NEEDED FOR COPD EXACERBATION; ALERT CUSTOMS OPENER VERIFIER PACKER AND PCP 09/01/2022 06/20/2023 predniSONE (Deltasone) 10 mg tabletIndications:ROUND KILN DRAWER D with exacerbation After finishing 40 mg for 5 days take 30 mg for 5 days then 20 mg for 5 days then 10 mg for 5 days then stop. 30 tablet 09/13/2022 10/18/2022 fluticasone-umeclidin ium-vilanterol (Trelegy Ellipta) 200-62.5-25 mcgIndications:COPD, very severe Inhale 1 puff into the lungs daily. 28 each 11 07/27/2022 10/18/2022 azithromycin (Zithromax Z-Adama) 250 mg TabletIndications:ROUND KILN DRAWER D, very severe Take 1 tablet by [...] 4:00 PM EDT [place] [address] Kira Thayer MD [facility] [place] [address] documented as of this encounter Procedures Procedure [...] / FVC LLN 69 % COMPAS PFT [id number] Actual Pre-BD 0.19 L/s COMPAS PFT [id number] Pre-BD % of Predicted 7 % COMPAS PFT [id number] Predicted 2.71 L/s COMPAS PFT [id number] Pre-BD Z-Score -4.66 COMPAS PFT DLCO Hb [...] Thayer MD PFT ORDERABLES Performing Organization Address City/State/[facility] Co de Phone Number COMPAS PFT documented in this encounter Visit Diagnoses Diagnosis COPD, very severe Chronic airway obstruction, not elsewhere classified documented in this encounter Care Teams Repeater Operator Relationship Specialty Start Date End Date Belkys Bundy DO [address] [place] [address] PCP - General Family Medicine 03/21/19 documented as of this encounter
--- OUTSIDE RECORDS SUMMARY | 2024-04-23 18:37 | XMS_ITS | Encounter Summary ---
Author Organization [facility] [place] [address] Care Team Providers Care Managing Member Name Role Phone Belkys Bundy Primary Care Provider +1- [phone] Reason for Referral * Consultation (Routine) - Closed Specialty Diagnoses / Procedures Referred By Rossy t Referred To Contact Diagnoses COPD, very severe Kira Thayer MD [facility] PULMONARY MEDICINE [place] [id number] Referral ID Status Reason Start Date Expiration Date V isits Requested Visits Authorized [id number] Closed Consult, Test & Treat 11/25/2022 05/24/2023 1 1 Encounter Details Date Type Department Care Team (Late st Contact Info) Description 11/22/2022 9:00 AM EDT Office [place] [address] [facility] [place] [address] COPD, very severe; Tobacco use; Supplemental oxygen [...] on the skin daily. 28 patch 5 gmttjpygnws-fmxhkzfrlthc-mvetqhjgal (Trelegy Ellipta) 200-62.5-25 mcg Inhale 1 puff into the lungs daily. 28 each 11 predniSONE (Deltasone) 20 mg tablet TAKE TWO TABLETS BY MOUTH EVERY DAY NEEDED FOR COPD EXACERBATION; ALERT INVENTORY MANAGEMENT SPECIALIST AND PCP inhalational spacing device (Ricci Aerosol [place] Enhancer) Spacer .MEDSUPPLY levothyroxine (Synthroid) 100 mcg [...] tablet 11 fluticasone propionate (FLONASE) 50 mcg/actuation [place], Suspension atorvastatin (Lipitor) 20 mg Tablet cyclobenzaprine [...] indicated for stable small pulm nodules seen [id number]. She has been smoking up to 1 [...] involve a referral to a center in [place], and that she needs to quit smoking before transplant would be an option. She is agreeable to a referral now. Referral letter written and referral order placed, to be faxed to [place] transplant center ([facility] vs [facility] pending insurance information.) Summary Recommendations: - [...] on day of visit. MD Omari Hogue [facility] PULMONOLOGY AT [facility] [address] Dept: [phone] Loc: [phone] documented in this encounter Plan of Treatment Upcoming Encounters Date Type Department Care Team (Late st Contact Info) Description 08/27/2024 4:00 PM EDT Office Visit Pulmonology at [facility] [address] [facility] [place] [address] Scheduled Referrals Name Type Priority Associated Diagnoses Order Schedule Referral to Pulmonology Outpatient Referral Routine COPD, very severe Ordered: 11/25/2022 documented as of this encounter Procedures Procedure Name Priority Date/Time Associated Diagnosis Comments BLOOD GAS ARTERIAL ([facility]) Routine 11/22/2022 10:16 AM EDT documented in this encounter Results * (ABNORMAL) Blood Gas Arterial ([facility]) (11/22/2022 10:16 AM EDT) pH, Arterial 7.39 7.35 - 7.45 [facility] PCO2, Arterial 47(H) 35 - 45 mmHg [facility] PO2, Arterial 73(L) 85 - 104 mmHg [facility] Bicarbonate, Arterial 27.7(H) 20.0 - 26.0 mmol/L [facility] Base Excess, Arterial 2.7 -3.0 - 3.0 mmol/L [facility] Hgb Blood Gas 15.2 11.7 - 15.5 g/dL [facility] Oxyhemoglobin, Arterial 92.1(L) 94.0 - 97.0 % [facility] Carboxyhemoglob in, Arterial 2.9 % [facility] Comment: Nonsmokers: ??0.5-1.5% COHB Smokers: ??Variable, but usually less than 10% Toxic: 20 - 30% COHB Lethal: ??Greater than 60% COHB Methemoglobin, Arterial 0.3 <=1.5 % [facility] Na Whole Blood 140 135 - 145 mmol/L [facility] K Whole Blood 3.9 3.5 - 5.0 mmol/L [facility] Comment: Please note: ??Patients with WBC >100,000 may have falsely elevated Potassium levels. ??Contact the Clinical Chemistry Laboratory if there are any questions. ICa Whole Blood 1.18 1.15 - 1.33 mmol/L [facility] Comment: Note: ??Total bilirubin higher than 20 mg/dL may lead to falsely low ionized calcium. CL Whole Blood 103 98 - 107 mmol/L [facility] Gluc Whole Bld 79 65 - 199 mg/dL [facility] Comment:Diabetes: >=200 mg/d L plus symptoms. Lactate WB 0.9 0.5 - 2.2 mmol/L [facility] Blood Arterial Draw / Unknown 11/22/2022 10:16 AM EDT 11/22/2022 10:24 AM EDT Narrative Resulting Agency Comment Spec In Lab Kira Thayer MD CHEMISTRY ORDERABLES [facility] [place] [address] documented in this encounter Visit Diagnoses Diagnosis COPD, very severe Chronic airway obstruction, not elsewhere classified Tobacco use Tobacco use disorder Supplemental oxygen dependent Dependence on supplemental oxygen Hypercarbia Other dyspnea and respiratory abnormality documented in this encounter Care Teams Managing Member Relationship Specialty Start Date End Date Belkys Bundy DO [address] [place] [address] PCP - General Family Medicine 03/21/19 documented as of this encounter
--- OUTSIDE RECORDS SUMMARY | 2024-04-23 18:37 | XMS_ITS | Encounter Summary ---
Author Organization [facility] [place] [address] Care Team Providers Care Fireworks Assembly Supervisor Name Role Phone Belkys Bundy DO Primary Care Provider +1- [phone] Encounter Details Date Type Department Care Team (Late st Contact Info) Description 07/08/2021 Orders [place] [address] Kira Thayer MD [facility] [place] [address] COPD, very severe Social History Tobacco Use [...] 4:00 PM EDT [place] [address] Kira Thayer MD [facility] [place] [address] documented as of this encounter Visit Diagnoses Diagnosis COPD, very severe Chronic airway obstruction, not elsewhere classified documented in this encounter Care Teams Fireworks Assembly Supervisor Relationship Specialty Start Date End Date Belkys Bundy DO [address] [place] [address] PCP - General Family Medicine 03/21/19 documented as of this encounter
--- OUTSIDE RECORDS SUMMARY | 2024-04-23 18:37 | XMS_ITS | Encounter Summary ---
[place] [address] Care Team Providers Care Fiberglass Container Winding Operator Name Role Phone Belkys Bundy DO Primary Care Provider +1- [phone] Reason for Visit * Reason Onset Date Comments Other 06/24/2021 Medication recon cilliation Encounter Details Date Type Department Care Team (Late st Contact Info) Description 06/24/2021 Telephone [place] [phone] Emily Starr RN Other (Medication reconcilliation) Social [...] list from office of Dr. Bundy of [facility] Internal Medicine. Added new medications and doses to list. documented in this encounter Plan of Treatment Upcoming Encounters Date Type Department Care Team (Late st Contact Info) Description 08/27/2024 4:00 PM EDT Office [place] [address] Kira Thayer MD [facility] [place] [address] documented as of this encounter Visit Diagnoses Not on filedocumented in this encounter Care Teams Fiberglass Container Winding Operator Relationship Specialty Start Date End Date Belkys Bundy DO [address] [place] [address] PCP - General Family Medicine 03/21/19 documented as of this encounter
--- OUTSIDE RECORDS SUMMARY | 2024-04-23 18:37 | XMS_ITS | Encounter Summary ---
Author Organization [facility] [place] [address] Care Team Providers Care Stapler Coil Unit Name Role Phone Belkys Bundy Primary Care Provider +1- [phone] Encounter Details Date Type Department Care Team (Late st Contact Info) Description 07/08/2021 [place] [address] Juanis Osullivan, RT Social History Tobacco Use [...] 4:00 PM EDT Office [place] [address] Kira Mejia MD [facility] [place] [address] documented as of this encounter Visit Diagnoses Not on filedocumented in this encounter Care Teams Stapler Coil Unit Relationship Specialty Start Date End Date Belkys Bundy DO [address] [place] [address] PCP - General Family Medicine 03/21/19 documented as of this encounter
--- OUTSIDE RECORDS SUMMARY | 2024-04-23 18:37 | XMS_ITS | Encounter Summary ---
Author Organization [facility] [place] [place] [address] Care Team Providers Care Transfer Table Operator Name Role Phone AnaBelkys moise Virginie MYRICK Primary Care Provider +1- [phone] Encounter Details Date Type Department Care Team (Late st Contact Info) Description 11/27/2021 Telephone [place] [address] Katie Donato Social History Tobacco Use Types [...] PM EDT Office [place] [address] Kira Thayer MD [facility] [place] [address] documented as of this encounter Visit Diagnoses Not on filedocumented in this encounter Care Teams Transfer Table Operator Relationship Specialty Start Date End Date Belkys Bundy DO [address] [place] [address] PCP - General Family Medicine 03/21/19 documented as of this encounter
--- OUTSIDE RECORDS SUMMARY | 2024-04-23 18:37 | XMS_ITS | Encounter Summary ---
Author Organization [facility] [place] [address] Care Team Providers Care Rn Hospital Name Role Phone Belkys Bundy DO Primary Care Provider +1- [phone] Reason for Visit * Reason Onset Date Comments Other 09/01/2021 Received ER note s and CXR results from [facility] for dates of service 08/21/2021-08/25/2021. Will send message to Dr. Thayer. Encounter Details Date Type Department Care Team (Late st Contact Info) Description 09/01/2021 Telephone [place] [address] Elise Murphy RN Other (Received ER notes and CXR results from [facility] for dates of service 08/21/2021-08/25/2021. Will [...] 09/01/2021 9:11 AM EDT I have called [facility] medical records to request for pt's ER notes and CXR results and images. MALACHI Staley, RN Department of Pulmonary 5C, [facility] Pager: [phone] documented in this encounter Plan of Treatment Upcoming Encounters Date Type Department Care Team (Late st Contact Info) Description 08/27/2024 4:00 PM EDT Office [place] [address] Kira Thayer MD [facility] DR PULMONARY [place] [address] documented as of this encounter Visit Diagnoses Not on filedocumented in this encounter Care Teams Rn Hospital Relationship Specialty Start Date End Date Belkys Bundy DO [address] [place] [address] PCP - General Family Medicine 03/21/19 documented as of this encounter
--- OUTSIDE RECORDS SUMMARY | 2024-04-23 18:37 | XMS_ITS | Encounter Summary ---
Author Organization [facility] [place] [address] Care Team Providers Care Nuclear Medicine Technologist Name Role Phone Belkys Bundy DO Primary Care Provider +1- [phone] Encounter Details Date Type Department Care Team (Late st Contact Info) Description 09/20/2022 [place] [address] Millicent Valles Social History Tobacco [...] 4:00 PM EDT Office [place] [address] Kira Thayer MD [facility] [place] [address] documented as of this encounter Visit Diagnoses Not on filedocumented in this encounter Care Teams Nuclear Medicine Technologist Relationship Specialty Start Date End Date Belkys Bundy DO [address] [place] [address] PCP - General Family Medicine 03/21/19 documented as of this encounter
--- OUTSIDE RECORDS SUMMARY | 2024-04-23 18:37 | XMS_ITS | Encounter Summary ---
[place] [address] Care Team Providers Care Insulation Engineman Name Role Phone Belkys Bundy Primary Care Provider +1- [phone] Reason for Visit * Reason Onset Date Comments Labs Only 09/13/2022 Oxygen Dependence 09/13/2022 Encounter Details Date Type Department Care Team (Late st Contact Info) Description 09/13/2022 [place] [address] Emily Starr RN Labs Only; Oxygen Dependence [...] EDT RN called to Katey Johnson at [facility], and was able to speak to her directly. RN relayed patient concerns of faulty equipment. Katey confirmed patient was serviced by [facility], and would connect with their support team to rectify problems with machine with patient. * Telephone Encounter - Emily Starr RN - 09/13/2022 12:50 PM EDT Faxed completed Lab Order Requisition, signed by Dr. Thayer, to [facility]. Attached to this was the following items: Patient Demographics This covered the following items: Lower Respiratory Culture AFB Culture Fax submission confirmation time stamped for 09/13/2022 @ 1248. 5 pages with cover sheet. documented in this encounter Plan of Treatment Upcoming Encounters Date Type Department Care Team (Late st Contact Info) Description 08/27/2024 4:00 PM EDT Office [place] [address] Kira Thayer MD [facility] [place] [address] documented as of this encounter Visit Diagnoses Not on filedocumented in this encounter Care Teams Insulation Engineman Relationship Specialty Start Date End Date Belkys Bundy DO [address] [place] [address] PCP - General Family Medicine 03/21/19 documented as of this encounter
--- OUTSIDE RECORDS SUMMARY | 2024-04-23 18:37 | XMS_ITS | Encounter Summary ---
[place] [address] Care Team Providers Care Signal Repairer Name Role Phone Belkys Bundy Primary Care Provider +1- [phone] Reason for Visit * Reason Onset Date Comments Cough 08/06/2021 COPD 08/06/2021 Excessive Phlegm 08/06/2021 Encounter Details Date Type Department Care Team (Late st Contact Info) Description 08/06/2021 Telephone [place] [address] Emily Starr RN Cough; COPD; Excessive Phlegm [...] antibiotic andprednisone Thanks jessie CARMONA called to [facility] in [facility], confirming that patient had previously [...] utilized her prednisone from May. Preferred Pharmacy: [facility] in [facility]. Confirmed Returned Contact Number: [phone] documented in this encounter Plan of Treatment Upcoming Encounters Date Type Department Care Team (Late st Contact Info) Description 08/27/2024 4:00 PM EDT Office [place] [address] Kira Thayer MD [facility] [place] [address] documented as of this encounter Visit Diagnoses Diagnosis COPD with exacerbation Obstructive chronic bronchitis with exacerbation documented in this encounter Care Teams Signal Repairer Relationship Specialty Start Date End Date Belkys Bundy DO [address] [place] [address] PCP - General Family Medicine 03/21/19 documented as of this encounter
--- OUTSIDE RECORDS SUMMARY | 2024-04-23 18:37 | XMS_ITS | Encounter Summary ---
Author [facility] [place] [address] Care Team Providers Care Mold Yard Supervisor Name Role Phone Belkys Bundy Primary Care Provider +1- [phone] Encounter Details Date Type Department Care Team (Latest Contact Info) Description 06/03/2021 8:30 AM EST - 06/03/2021 11:59 PM EST Hospital Encounter [place] [address] COPD, very severe Discharge Disposition: Home Social [...] End Date inhalational spacing device (Ricci Aerosol [place] Enhancer) Spacer .MEDSUPPLY 02/01/2020 levothyroxine (Synthroid) 100 [...] 11 07/16/2020 fluticasone propionate (FLONASE) 50 mcg/actuation [place], Suspension 02/01/2020 atorvastatin (Lipitor) 20 mg Tablet [...] -vilanter (Trelegy Ellipta) 200-62.5-25 mcg Disk with DeviceIndications:STAPLE FIBER WASHER D, very severe Inhale 1 Inhalation into [...] EDT Office [place] [address] Kira Thayer MD [facility] [place] [address] documented as of this encounter Procedures Procedure [...] / FVC LLN 69 % COMPAS PFT HXC89-63 Actual Pre-BD 0.15 L/s COMPAS PFT CCD14-03 Pre-BD % of Predicted 5 % COMPAS PFT JNI60-58 Predicted 2.75 L/s COMPAS PFT SAG90-92 Pre-BD Z-Score -4.92 COMPAS PFT DLCO Hb [...] classified documented in this encounter Care Teams Mold Yard Supervisor Relationship Specialty Start Date End Date Belkys Bundy DO [address] [facility] [place] [address] PCP - General Family Medicine 03/21/19 documented as of this encounter
--- OUTSIDE RECORDS SUMMARY | 2024-04-23 18:37 | XMS_ITS | Encounter Summary ---
Author Organization [facility] [place] [address] Care Team Providers Care Bench Assembler Name Role Phone Belkys Bundy DO Primary Care Provider +1- [phone] Encounter Details Date Type Department Care Team [...] 4:00 PM EDT Office [place] [address] Kira Thayer MD [facility] [place] [address] documented as of this encounter Visit Diagnoses Not on filedocumented in this encounter Care Teams Bench Assembler Relationship Specialty Start Date End Date Belkys Bundy DO [address] [place], [place] [address] PCP - General Family Medicine 03/21/19 documented as of this encounter
--- OUTSIDE RECORDS SUMMARY | 2024-04-23 18:37 | XMS_ITS | Encounter Summary ---
Author Organization [facility] [place] [address] Care Team Providers Care Picking Belt Operator Name Role Phone Belkys Bundy DO Primary Care Provider +1- [phone] Encounter Details Date Type Department Care Team (Late st Contact Info) Description 08/21/2021 Ancillary Procedure Radiology Library at [facility] [place] [address] Belkys Bundy, DO [address] [place], [place] [id number] Social History Tobacco Use Types Packs/Day Years [...] 4:00 PM EDT Office Visit Pulmonology at [facility] [place] [address] Kira Thayer MD [facility] [address] PULMONARY MEDICINE [place], [place] [address] documented as of this encounter Procedures Procedure Name Priority Date/Time Associated Diagnosis Comments FILM LIBRARY STORAGE ONLY DX CHEST Routine 08/21/2021 12:00 AM EDT documented in this encounter Results * Film Library- Storage Only DX Chest (08/21/2021 12:00 AM EDT) Narrative [facility] - 09/01/2021 11:25 AM EDT This exam is auto-finalizing. It's purpose is for storage only. Belkys Bundy DO G FILM LIBRARY O RDERABLES Performing Organization Address City/State/[facility] Co de Phone Number [place], [place] documented in this encounter Visit Diagnoses Not on filedocumented in this encounter Care Teams Picking Belt Operator Relationship Specialty Start Date End Date Belkys Bundy DO [address] [place] [address] PCP - General Family Medicine 03/21/19 documented as of this encounter
--- OUTSIDE RECORDS SUMMARY | 2024-04-23 18:37 | XMS_ITS | Encounter Summary ---
[place] [address] Care Team Providers Care Tree Warden Name Role Phone Belkys Bundy Primary Care Provider +1- [phone] Reason for Visit * Reason Onset Date Comments Medication Refill 07/26/2022 Encounter Details Date Type Department Care Team (Late st Contact Info) Description 07/26/2022 [place] [address] Emily Starr RN COPD, very severe Social [...] 8:50 PM Thanks Jessie Sanchez to P [facility] Pulmonology Nurse (supporting Kira Thayer MD) SL ?? 8:[address] Thayer I need my trilogy but my pharmacy has changed to [facility] in [place] http [email or web address] documented in this encounter Plan of Treatment Upcoming Encounters Date Type Department Care Team (Late st Contact Info) Description 08/27/2024 4:00 PM EDT Office [place] [address] Kira Thayer MD [facility] [place] [address] documented as of this encounter Visit Diagnoses Diagnosis COPD, very severe Chronic airway obstruction, not elsewhere classified documented in this encounter Care Teams Tree Warden Relationship Specialty Start Date End Date Belkys Bundy DO [address] [place] [address] PCP - General Family Medicine 03/21/19 documented as of this encounter
--- OUTSIDE RECORDS SUMMARY | 2024-04-23 18:37 | XMS_ITS | Encounter Summary ---
[place] [address] Care Team Providers Care Sample Tester Name Role Phone Belkys Bundy Primary Care Provider +1- [phone] Reason for Visit * Reason Onset Date Comments Other 10/01/2021 Trelegy Ellipta Encounter Details Date Type Department Care Team (Late [facility]) Description 10/01/2021 [place] [address] Emily Starr RN Other (Trelegy Ellipta) Social [...] 1:27 PM EDT RN called B[facility] in [facility] to confirm patient was able to get Trelegy ellipta. RN was notified that patient's next dispense was ready for pick up driver. documented in this encounter Plan of Treatment Upcoming Encounters Date Type Department Care Team (Late st Contact Info) Description 08/27/2024 4:00 PM EDT [place] [address] Kira Thayer MD [facility] [place] [address] documented as of this encounter Visit Diagnoses Not on filedocumented in this encounter Care Teams Sample Tester Relationship Specialty Start Date End Date Belkys Bundy DO [address] [place] [address] PCP - General Family Medicine 03/21/19 documented as of this encounter
--- OUTSIDE RECORDS SUMMARY | 2024-04-23 18:37 | XMS_ITS | Encounter Summary ---
Author Organization [facility] [place] [address] Care Team Providers Care Public Relations Specialist Name Role Phone OliverLizeth mooresea Rachel DO Primary Care Provider +1- [phone] Encounter Details Date Type Department Care Team (Late st Contact Info) Description 09/23/2021 Telephone [place] [address] Millicent Valles Social History Tobacco Use Types [...] 4:00 PM EDT Office [place] [address] Kira Thayer MD [facility] [place] [address] documented as of this encounter Visit Diagnoses Not on filedocumented in this encounter Care Teams Public Relations Specialist Relationship Specialty Start Date End Date Belkys Bundy DO [address] [place] [address] PCP - General Family Medicine 03/21/19 documented as of this encounter
--- OUTSIDE RECORDS SUMMARY | 2024-04-23 18:38 | XMS_ITS | Encounter Summary ---
[place] [address] Care Team Providers Care Electronics Worker Name Role Phone Belkys Bundy Primary Care Provider +1- [phone] Encounter Details Date Type Department Care Team (Late st Contact Info) Description 09/24/2020 2:00 PM EDT TH Visit (TeleHealth) [place] [address] Juanis Osullivan, RT COPD, very severe Social [...] [place] Soilayanni participated in discussion Juanis Osullivan, QC LAB TECHNICIAN,ELECTRIC MOTORS SALESPERSON documented in this encounter Plan of Treatment Upcoming Encounters Date Type Department Care Team (Late st Contact Info) Description 08/27/2024 4:00 PM EDT [place] [address] Kira Thayer MD [facility] [address] documented as of this encounter Visit Diagnoses Diagnosis COPD, very severe Chronic airway obstruction, not elsewhere classified documented in this encounter Care Teams Electronics Worker Relationship Specialty Start Date End Date Belkys Bundy DO [address] [place] [address] PCP - General Family Medicine 03/21/19 documented as of this encounter
--- OUTSIDE RECORDS SUMMARY | 2024-04-23 18:38 | XMS_ITS | Encounter Summary ---
[place] [address] Care Team Providers Care Supervisor Calibration Name Role Phone Belkys Bundy Primary Care Provider +1- [phone] Encounter Details Date Type Department Care Team (Late st Contact Info) Description 08/22/2020 2:00 PM EDT TH Visit (TeleHealth) [place] [address] Juanis Osullivan, RT COPD, very severe Social [...] see Jethro Knapp's PT note Juanis Osullivan, LEATHER TANNER,AVIATION TACTICAL READINESS OFFICER documented in this encounter Miscellaneous Notes * [...] 4:00 PM EDT Office [place] [address] Kira Thayer MD [facility] [place] [address] documented as of this encounter Visit Diagnoses Diagnosis COPD, very severe Chronic airway obstruction, not elsewhere classified documented in this encounter Care Teams Supervisor Calibration Relationship Specialty Start Date End Date Belkys Bundy DO [address] [place] [address] PCP - General Family Medicine 03/21/19 documented as of this encounter
--- OUTSIDE RECORDS SUMMARY | 2024-04-23 18:38 | XMS_ITS | Encounter Summary ---
[place] [address] Care Team Providers Care Volumetric Weigher Name Role Phone Belkys Bundy Primary Care Provider +1- [phone] Encounter Details Date Type Department Care Team (Late st Contact Info) Description 12/26/2020 2:00 PM EDT TH Visit (TeleHealth) [place] [address] Juanis Osullivan, RT COPD, very severe Social [...] see Dary Wheat's PT note Juanis Osullivan, TUBE PUSHER,NITROCELLULOSE OPERATOR documented in this encounter Miscellaneous Notes * Treatment - Therapy - Dary Wheat, PROJECT COACH - 12/26/2020 2:00 PM EDT Pulmonary Rehabilitation [...] 4:00 PM EDT Office [place] [address] Kira Thayer MD [facility] [place] [address] documented as of this encounter Visit Diagnoses Diagnosis COPD, very severe Chronic airway obstruction, not elsewhere classified documented in this encounter Care Teams Volumetric Weigher Relationship Specialty Start Date End Date Belkys Bundy DO [address] [place] [address] PCP - General Family Medicine 03/21/19 documented as of this encounter
--- OUTSIDE RECORDS SUMMARY | 2024-04-23 18:38 | XMS_ITS | Encounter Summary ---
Author Organization [facility] [place] [address] Care Team Providers Care Fruit Or Nut Farm Worker Name Role Phone Belkys Bundy Primary Care Provider +1- [phone] Encounter Details Date Type Department Care Team (Late st Contact Info) Description 12/08/2020 9:00 AM EDT Office [place] [address] Juanis Osullivan, RT COPD, very severe Social [...] rehab. Patient Goals: -To get stronger- yes, eJssie noted that overall she is feeling stronger. [...] - Start Incentive spirometry per above. The [facility] monthly pulmonary support group meeting (Tuesday of the month from 4:30-5:30 pm) is available for ongoing free pulmonary education and support. If you have any questions or concerns, please let us know. Thank you. Juanis Osullivan, SPECIMEN COLLECTOR,BEADER [facility] Pulmonary Director Of Casino Marketing documented in this encounter Plan of Treatment Upcoming Encounters Date Type Department Care Team (Late st Contact Info) Description 08/27/2024 4:00 PM EDT Office [place] [address] Kira Thayer MD [facility] [place] [address] documented as of this encounter Visit Diagnoses Diagnosis COPD, very severe Chronic airway obstruction, not elsewhere classified documented in this encounter Care Teams Fruit Or Nut Farm Worker Relationship Specialty Start Date End Date Belkys Bundy DO [address] [place] [address] PCP - General Family Medicine 03/21/19 documented as of this encounter
--- OUTSIDE RECORDS SUMMARY | 2024-04-23 18:38 | XMS_ITS | Encounter Summary ---
Author Organization [facility] [place] [address] Care Team Providers Care Youth Coordinator Name Role Phone Belkys Bundy DO Primary Care Provider +1- [phone] Reason for Visit * Reason Onset Date Comments Medication Refill 10/10/2020 Encounter Details Date Type Department Care Team (Late st Contact Info) Description 10/10/2020 [place] [address] Emily Starr RN COPD, very severe Social [...] 4:00 PM EDT [place] [address] Kira Thayer MD [facility] [address] [place] [address] documented as of this encounter Visit Diagnoses Diagnosis COPD, very severe Chronic airway obstruction, not elsewhere classified documented in this encounter Care Teams Youth Coordinator Relationship Specialty Start Date End Date Belkys Bundy DO [address] [place] [address] PCP - General Family Medicine 03/21/19 documented as of this encounter
--- OUTSIDE RECORDS SUMMARY | 2024-04-23 18:38 | XMS_ITS | Encounter Summary ---
Author Organization [facility] [place] [address] Care Team Providers Care Satellite Dish Repairer Name Role Phone Belkys Bundy Primary Care Provider +1- [phone] Encounter Details Date Type Department Care Team (Latest Contact Info) Description 02/18/2021 9:22 AM EST - 02/18/2021 11:59 PM EST Hospital [place] [address] COPD, very severe Discharge Disposition: Home Social [...] End Date inhalational spacing device (Ricci Aerosol [place] Enhancer) Spacer .MEDSUPPLY 02/01/2020 levothyroxine (Synthroid) 100 [...] 11 07/16/2020 fluticasone propionate (FLONASE) 50 mcg/actuation [place], Suspension 02/01/2020 atorvastatin (Lipitor) 20 mg Tablet [...] 4:00 PM EDT [place] [address] Kira Thayer MD [facility] [place] [address] Scheduled Orders Name Type Priority Associated Diagnoses [...] / FVC LLN 69 % COMPAS PFT PBE74-76 Actual Pre-BD 0.30 L/s COMPAS PFT VZU62-65 Pre-BD % of Predicted 11 % COMPAS PFT VSM13-61 Predicted 2.78 L/s COMPAS PFT SGA83-99 Pre-BD Z-Score -4.34 COMPAS PFT DLCO Hb [...] classified documented in this encounter Care Teams Satellite Dish Repairer Relationship Specialty Start Date End Date Belkys Bundy DO [address] [place] [address] PCP - General Family Medicine 03/21/19 documented as of this encounter
--- OUTSIDE RECORDS SUMMARY | 2024-04-23 18:38 | XMS_ITS | Encounter Summary ---
Author Organization [facility] Address [facility] [place] [address] Care Team Providers Care Arrow Point Attacher Name Role Phone Belkys Bundy Primary Care Provider +1- [phone] Encounter Details Date Type Department Care Team (Late st Contact Info) Description 01/09/2021 [place] [address] Kira Thayer MD [facility] [place] [address] Social History Tobacco Use Types Packs/Day Years [...] 4:00 PM EDT [place] [address] Kira Thayer MD [facility] [place] [address] documented as of this encounter Visit Diagnoses Not on filedocumented in this encounter Care Teams Arrow Point Attacher Relationship Specialty Start Date End Date Belkys Bundy DO [address] [place] [address] PCP - General Family Medicine 03/21/19 documented as of this encounter
--- OUTSIDE RECORDS SUMMARY | 2024-04-23 18:38 | XMS_ITS | Encounter Summary ---
[place] [address] Care Team Providers Care Court Bailiff Name Role Phone Belkys Bundy Primary Care Provider +1- [phone] Encounter Details Date Type Department Care Team (Late st Contact Info) Description 08/13/2020 2:00 PM EDT TH Visit (TeleHealth) [place] [address] Juanis Osullivan, RT COPD, very severe Social [...] see Jethro Knapp's PT note Juanis Osullivan, LOCK MAINTENANCE SUPERVISOR,MACHINE I TRIMMER documented in this encounter Miscellaneous Notes * [...] 4:00 PM EDT Office Visit [place] [address] Kira Thayer MD [facility] [place] [address] documented as of this encounter Visit Diagnoses Diagnosis COPD, very severe Chronic airway obstruction, not elsewhere classified documented in this encounter Care Teams Court Bailiff Relationship Specialty Start Date End Date Belkys Bundy DO [address] [place] [address] PCP - General Family Medicine 03/21/19 documented as of this encounter
--- OUTSIDE RECORDS SUMMARY | 2024-04-23 18:38 | XMS_ITS | Encounter Summary ---
Author Organization [facility] [place] [address] Care Team Providers Care Child Welfare Manager Name Role Phone Belkys Bundy DO Primary Care Provider +1- [phone] Encounter Details Date Type Department Care Team (Late st Contact Info) Description 10/22/2020 Telephone [place] [address] Millicent Valles Social History Tobacco [...] 4:00 PM EDT Office [place] [address] Kira Thayer MD [facility] [place] [address] documented as of this encounter Visit Diagnoses Not on filedocumented in this encounter Care Teams Child Welfare Manager Relationship Specialty Start Date End Date Belkys Bundy DO [address] [place] [address] PCP - General Family Medicine 03/21/19 documented as of this encounter
--- OUTSIDE RECORDS SUMMARY | 2024-04-23 18:38 | XMS_ITS | Encounter Summary ---
[place] [address] Care Team Providers Care Bailer Tenders Supervisor Name Role Phone Belkys Bundy Primary Care Provider +1- [phone] Encounter Details Date Type Department Care Team (Late st Contact Info) Description 10/01/2020 2:00 PM EDT TH Visit (TeleHealth) [place] [address] Juanis Osullivan, RT COPD, very severe Social [...] oxygen concentrator and portable oxygen concentrator [place] [facility] She noted that she is feeling significantly [...] modify activities to conserve energy. Juanis Osullivan, CARGO MATE,SUBMARINE CABLE EQUIPMENT TECHNICIAN documented in this encounter Miscellaneous Notes * [...] 4:00 PM EDT Office [place] [address] [facility] [place] [address] documented as of this encounter Visit Diagnoses Diagnosis COPD, very severe Chronic airway obstruction, not elsewhere classified documented in this encounter Care Teams Bailer Tenders Supervisor Relationship Specialty Start Date End Date Belkys Bundy DO [address] [place] [address] PCP - General Family Medicine 03/21/19 documented as of this encounter
--- OUTSIDE RECORDS SUMMARY | 2024-04-23 18:38 | XMS_ITS | Encounter Summary ---
Author Organization [facility] [place] [address] Care Team Providers Care Winder Hand Name Role Phone Belkys Bundy DO Primary Care Provider +1- [phone] Encounter Details Date Type Department Care Team (Late st Contact Info) Description 01/09/2021 Telephone [place] [address] Millicent Valles Social History Tobacco [...] 4:00 PM EDT Office [place] [address] Kira Thayer MD [facility] [place] [address] documented as of this encounter Visit Diagnoses Not on filedocumented in this encounter Care Teams Winder Hand Relationship Specialty Start Date End Date Belkys Bundy DO [address] [place] [address] PCP - General Family Medicine 03/21/19 documented as of this encounter
--- OUTSIDE RECORDS SUMMARY | 2024-04-23 18:38 | XMS_ITS | Encounter Summary ---
Author Organization [facility] [place] [address] Care Team Providers Care Paver Name Role Phone Belkys Bundy Primary Care Provider +1- [phone] Encounter Details Date Type Department Care Team (Late st Contact Info) Description 08/08/2020 Telephone [place] [address] Juanis Osullivan RT Social History Tobacco Use [...] 08/08/2020 1:06 PM EDT Called Cristin at [facility] to review Jessie's current status of her Medicare O2 benefit. Cristin noted that currently no months have billed for Medicare for her oxygen. Jessie needs to be requalified for oxygen with new oxygen orders. documented in this encounter Plan of Treatment Upcoming Encounters Date Type Department Care Team (Late st Contact Info) Description 08/27/2024 4:00 PM EDT Office [place] [address] Kira Thayer MD [facility] [place] [address] documented as of this encounter Visit Diagnoses Not on filedocumented in this encounter Care Teams Paver Relationship Specialty Start Date End Date Belkys Bundy DO [address] [place] [address] PCP - General Family Medicine 03/21/19 documented as of this encounter
--- OUTSIDE RECORDS SUMMARY | 2024-04-23 18:38 | XMS_ITS | Encounter Summary ---
[place] [address] Care Team Providers Care Chief Investment Officer Name Role Phone Belkys Bundy Primary Care Provider +1- [phone] Encounter Details Date Type Department Care Team (Late st Contact Info) Description 01/09/2021 2:00 PM EDT TH Visit (TeleHealth) [place] [address] Juanis Osullivan, RT COPD, very severe Social [...] Pulmonary Rehabilitation Exercise: please see Dary Wheat's CRITICAL CARE TRANSPORT NURSE note Sent update to Dr. Thayer. Juanis Osullivan, ENTERPRISE RESOURCE ANALYST,CLERICAL PRODUCTION WORKER documented in this encounter Miscellaneous Notes * Treatment - Therapy - Dary Wheat, CRITICAL CARE TRANSPORT NURSE - 01/09/2021 2:00 PM EDT Pulmonary Rehabilitation [...] 4:00 PM EDT Office [place] [address] Kira Thayer MD [facility] [address] PULMON[place] [address] documented as of this encounter Visit Diagnoses Diagnosis COPD, very severe Chronic airway obstruction, not elsewhere classified documented in this encounter Care Teams Chief Investment Officer Relationship Specialty Start Date End Date Belkys Bundy DO [address] [place] [address] PCP - General Family Medicine 03/21/19 documented as of this encounter
--- OUTSIDE RECORDS SUMMARY | 2024-04-23 18:38 | XMS_ITS | Encounter Summary ---
[place] [address] Care Team Providers Care Death Surveys Coder Name Role Phone Belkys Bundy Primary Care Provider +1- [phone] Encounter Details Date Type Department Care Team (Late st Contact Info) Description 12/30/2020 1:00 PM EDT TH Visit (TeleHealth) [place] [address] Juanis Osullivan, RT COPD, very severe Social [...] had other commitments this afternoon. Juanis Osullivan, CENA,NUCLEAR RADIATION ENGINEER documented in this encounter Miscellaneous Notes * Treatment - Therapy - Dary Wheat, LEAD CYTOGENETIC TECHNOLOGIST - 12/30/2020 1:00 PM EDT Pulmonary Rehabilitation [...] PM EDT Office [place] [address] Kira Thayer MD [facility] [place] [address] documented as of this encounter Visit Diagnoses Diagnosis COPD, very severe Chronic airway obstruction, not elsewhere classified documented in this encounter Care Teams Death Surveys Coder Relationship Specialty Start Date End Date Belkys Bundy DO [address] [place] [address] PCP - General Family Medicine 03/21/19 documented as of this encounter
--- OUTSIDE RECORDS SUMMARY | 2024-04-23 18:38 | XMS_ITS | Encounter Summary ---
[place] [address] Care Team Providers Care Lean Leader Name Role Phone Belkys Bundy Primary Care Provider +1- [phone] Encounter Details Date Type Department Care Team (Late st Contact Info) Description 10/17/2020 2:00 PM EDT TH Visit (TeleHealth) [place] [address] Juanis Osullivan, RT COPD, very severe Social [...] Jethro Knapp's PT note Juanis Osullivan, SIDE STITCHING MACHINE OPERATOR,CHILD CARE WORKER documented in this encounter Miscellaneous Notes [...] 4:00 PM EDT [place] [address] Kira Thayer MD [facility] [place] [address] documented as of this encounter Visit Diagnoses Diagnosis COPD, very severe Chronic airway obstruction, not elsewhere classified documented in this encounter Care Teams Lean Leader Relationship Specialty Start Date End Date Belkys Bundy DO [address] [place] [address] PCP - General Family Medicine 03/21/19 documented as of this encounter
--- OUTSIDE RECORDS SUMMARY | 2024-04-23 18:38 | XMS_ITS | Encounter Summary ---
Author Organization [facility] [place] [address] Care Team Providers Care Filler Sifter Helper Name Role Phone Belkys Bundy Primary Care Provider +1- [phone] Encounter Details Date Type Department Care Team (Late st Contact Info) Description 09/22/2020 [place] [address] Juanis Osullivan, RT Social History Tobacco Use [...] 10/06 pulmonary appointment and transition to other [facility] O2 provider. Respiratory status: [...] 4:00 PM EDT Office [place] [address] Christi Pruett MD [facility] [place] [address] documented as of this encounter Visit Diagnoses Not on filedocumented in this encounter Care Teams Filler Sifter Helper Relationship Specialty Start Date End Date Belkys Bundy DO [address] [place] [address] PCP - General Family Medicine 03/21/19 documented as of this encounter
--- OUTSIDE RECORDS SUMMARY | 2024-04-23 18:38 | XMS_ITS | Encounter Summary ---
Author Organization [facility] [place] [address] Care Team Providers Care Last Code Striper Name Role Phone Belkys Bundy Primary Care Provider +1- [phone] Encounter Details Date Type Department Care Team (Late st Contact Info) Description 03/17/2021 Telephone Pulmonology at [facility] [place] [address] Juanis Osullivan, RT Social History Tobacco Use [...] PM EDT Office Visit [place] [address] Kira Thayer MD [facility] [address] [place] [address] documented as of this encounter Visit Diagnoses Not on filedocumented in this encounter Care Teams Last Code Striper Relationship Specialty Start Date End Date Belkys Bundy DO [address] [place] [address] PCP - General Family Medicine 03/21/19 documented as of this encounter
--- OUTSIDE RECORDS SUMMARY | 2024-04-23 18:38 | XMS_ITS | Encounter Summary ---
Author Organization [facility] [place] [address] Care Team Providers Care Machine Erector Name Role Phone AnaBelkys moise Primary Care Provider +1- [phone] Encounter Details Date Type Department Care Team (Late st Contact Info) Description 02/03/2021 Telephone [place] [address] Juanis Osullivan, RT Social History Tobacco Use [...] and she went to urgent care at [facility] to evaluate her shoulder., No xrays [...] Office [place] [address] Kira Thayer MD [facility] [address] [place] [address] documented as of this encounter Visit Diagnoses Not on filedocumented in this encounter Care Teams Machine Erector Relationship Specialty Start Date End Date Belkys Bundy DO [address] [place] [address] PCP - General Family Medicine 03/21/19 documented as of this encounter
--- OUTSIDE RECORDS SUMMARY | 2024-04-23 18:38 | XMS_ITS | Encounter Summary ---
Author Organization [facility] [place] [address] Care Team Providers Care Building Services Technician Name Role Phone Belkys Bundy DO Primary Care Provider +1- [phone] Encounter Details Date Type Department Care Team (Late st Contact Info) Description 10/20/2020 Telephone [place] [address] Millicent Valles Social History Tobacco [...] PM EDT Office [place] [address] Kira Thayer MD [facility] [place] [address] documented as of this encounter Visit Diagnoses Not on filedocumented in this encounter Care Teams Building Services Technician Relationship Specialty Start Date End Date Belkys Bundy DO [address] [place] [address] PCP - General Family Medicine 03/21/19 documented as of this encounter
--- OUTSIDE RECORDS SUMMARY | 2024-04-23 18:38 | XMS_ITS | Encounter Summary ---
Author Organization [facility] [place] [address] Care Team Providers Care 911 Operator Name Role Phone Belkys Bundy DO Primary Care Provider +1- [phone] Encounter Details Date Type Department Care Team (Late st Contact Info) Description 01/29/2021 Tele[place] [address] Millicent Valles Social History Tobacco [...] 4:00 PM EDT Office [place] [address] Kira Thayer MD [facility] [place] [address] documented as of this encounter Visit Diagnoses Not on filedocumented in this encounter Care Teams 911 Operator Relationship Specialty Start Date End Date Belkys Bundy DO [address] [place] [address] PCP - General Family Medicine 03/21/19 documented as of this encounter
--- OUTSIDE RECORDS SUMMARY | 2024-04-23 18:38 | XMS_ITS | Encounter Summary ---
[place] [address] Care Team Providers Care Leader Writer Name Role Phone Belkys Bundy Primary Care Provider +1- [phone] Encounter Details Date Type Department Care Team (Late st Contact Info) Description 10/15/2020 2:00 PM EDT TH Visit (TeleHealth) [place] [address] Juanis Osullivan, RT COPD, very severe Social [...] Lung Disorders- part 1 Presenter: Juanis Osullivan RRT,PROPERTY ASSISTANT Jessie Sanchez participated in discussion Regarding normal lungs and changes with asthma and COPD. Juanis Osullivan RRT,PROPERTY ASSISTANT documented in this encounter Miscellaneous Notes * [...] 4:00 PM EDT Office [place] [address] Kira Thayer MD [facility] [place] [address] documented as of this encounter Visit Diagnoses Diagnosis COPD, very severe Chronic airway obstruction, not elsewhere classified documented in this encounter Care Teams Leader Writer Relationship Specialty Start Date End Date Belkys Bundy DO [address] [place] [address] PCP - General Family Medicine 03/21/19 documented as of this encounter
--- OUTSIDE RECORDS SUMMARY | 2024-04-23 18:38 | XMS_ITS | Encounter Summary ---
Author Organization [facility] [place] [address] Care Team Providers Care Die Machine Operator Name Role Phone Belkys Bundy DO Primary Care Provider +1- [phone] Encounter Details Date Type Department Care Team (Late st Contact Info) Description 09/30/2020 Orders [place] [address] Kira Thayer MD [facility] [place] [address] COPD, very severe Social History Tobacco Use [...] 4:00 PM EDT Office [place] [address] Kira Thayer MD [facility] [place] [address] documented as of this encounter Visit Diagnoses Diagnosis COPD, very severe Chronic airway obstruction, not elsewhere classified documented in this encounter Care Teams Die Machine Operator Relationship Specialty Start Date End Date Belkys Bundy DO [address] [place] [address] PCP - General Family Medicine 03/21/19 documented as of this encounter
--- OUTSIDE RECORDS SUMMARY | 2024-04-23 18:38 | XMS_ITS | Encounter Summary ---
Author Organization [facility] [place] [address] Care Team Providers Care Women'S Health Care Nurse Practitioner Name Role Phone AnaBelkys moise Primary Care Provider +1- [phone] Encounter Details Date Type Department Care Team (Late st Contact Info) Description 11/05/2020 Telephone [place] [address] Juanis Osullivan, RT Social History Tobacco Use [...] 4:00 PM EDT Office [place] [address] Kira Thayer MD [facility] [address] [place] [address] documented as of this encounter Visit Diagnoses Not on filedocumented in this encounter Care Teams Women'S Health Care Nurse Practitioner Relationship Specialty Start Date End Date Belkys Bundy DO [address] [place] [address] PCP - General Family Medicine 03/21/19 documented as of this encounter
--- OUTSIDE RECORDS SUMMARY | 2024-04-23 18:38 | XMS_ITS | Encounter Summary ---
Author Organization [facility] [place] [address] Care Team Providers Care Straight Truck Driver Name Role Phone Belkys Bundy DO Primary Care Provider +1- [phone] Encounter Details Date Type Department Care Team (Late st Contact Info) Description 08/29/2020 [place] [address] Monisha Khalil Social History Tobacco [...] 4:00 PM EDT [place] [address] Kira Thayer MD [facility] [place] [address] documented as of this encounter Visit Diagnoses Not on filedocumented in this encounter Care Teams Straight Truck Driver Relationship Specialty Start Date End Date Belkys Bundy DO [address] [place] [address] PCP - General Family Medicine 03/21/19 documented as of this encounter
--- OUTSIDE RECORDS SUMMARY | 2024-04-23 18:38 | XMS_ITS | Encounter Summary ---
Author Organization [facility] [place] [address] Care Team Providers Care Manager Book Name Role Phone Belkys Bundy Primary Care Provider +1- [phone] Encounter Details Date Type Department Care Team (Late st Contact Info) Description 09/30/2020 [place] [address] Juanis Osullivan RT Social History Tobacco Use [...] 4:00 PM EDT [place] [address] Kira Thayer MD [facility] [place] [address] documented as of this encounter Visit Diagnoses Not on filedocumented in this encounter Care Teams Manager Book Relationship Specialty Start Date End Date Belkys Bundy DO [address] [place] [address] [place] [address] PCP - General Family Medicine 03/21/19 documented as of this encounter
--- OUTSIDE RECORDS SUMMARY | 2024-04-23 18:38 | XMS_ITS | Encounter Summary ---
Author Organization [facility] [place] [address] Care Team Providers Care Sales Service Technician Name Role Phone Belkys Bundy Primary Care Provider +1- [phone] Encounter Details Date Type Department Care Team (Late st Contact Info) Description 09/30/2020 9:30 AM EDT Office [place] [address] Juanis Osullivan, RT COPD, very severe Social [...] 4:00 PM EDT Office [place] [address] Kira Thayer MD [facility] [place] [address] documented as of this encounter Visit Diagnoses Diagnosis COPD, very severe Chronic airway obstruction, not elsewhere classified documented in this encounter Care Teams Sales Service Technician Relationship Specialty Start Date End Date Belkys Bundy DO [address] [place] [address] PCP - General Family Medicine 03/21/19 documented as of this encounter
--- OUTSIDE RECORDS SUMMARY | 2024-04-23 18:38 | XMS_ITS | Encounter Summary ---
Author Organization [facility] [place] [address] Care Team Providers Care Mail Handler Sorter Name Role Phone Belkys Bundy DO Primary Care Provider +1- [phone] Reason for Visit * Reason Onset Date Comments Medication Refill 04/17/2021 Encounter Details Date Type Department Care Team (Late st Contact Info) Description 04/17/2021 [place] [address] Emily Starr RN COPD, very severe Social [...] 4:00 PM EDT [place] [address] Kira Thayer MD [facility] [place] [address] documented as of this encounter Visit Diagnoses Diagnosis COPD, very severe Chronic airway obstruction, not elsewhere classified documented in this encounter Care Teams Mail Handler Sorter Relationship Specialty Start Date End Date Belkys Bundy DO [address] [place] [address] PCP - General Family Medicine 03/21/19 documented as of this encounter
--- OUTSIDE RECORDS SUMMARY | 2024-04-23 18:38 | XMS_ITS | Encounter Summary ---
[place] [address] Care Team Providers Care Warehouseman Name Role Phone Belkys Bundy Primary Care Provider +1- [phone] Encounter Details Date Type Department Care Team (Late st Contact Info) Description 01/06/2021 1:00 PM EDT TH Visit (TeleHealth) [place] [address] Juanis Osullivan, RT COPD, very severe Social [...] set and 10- 2nd set. Juanis Osullivan, ACTIVITIES COUNSELOR,TEMPERATURE REGULATOR PYROMETER documented in this encounter Miscellaneous Notes * Treatment - Therapy - Dary Wheat, LENS POLISHER HAND - 01/06/2021 1:00 PM EDT Pulmonary Rehabilitation [...] as a group and 1-2 x independently aDry Wheat PTA documented in this encounter Plan of Treatment Upcoming Encounters Date Type Department Care Team (Late st Contact Info) Description 08/27/2024 4:00 PM EDT Office [place] [address] Kira Thayer MD [facility] [place] [address] documented as of this encounter Visit Diagnoses Diagnosis COPD, very severe Chronic airway obstruction, not elsewhere classified documented in this encounter Care Teams Warehouseman Relationship Specialty Start Date End Date Belkys Bundy DO [address] [place] [address] PCP - General Family Medicine 03/21/19 documented as of this encounter
--- OUTSIDE RECORDS SUMMARY | 2024-04-23 18:38 | XMS_ITS | Encounter Summary ---
Author Organization [facility] [place] [address] Care Team Providers Care Retail Presentation Specialist Name Role Phone Niharika Eblkys Virginie MYRICK Primary Care Provider +1- [phone] Encounter Details Date Type Department Care Team (Late st Contact Info) Description 01/30/2021 Telephone [place] [address] Juanis Osullivan, RT Social History Tobacco Use [...] EDT Office [place] [address] Kira Thayer MD [facility] [place] [address] documented as of this encounter Visit Diagnoses Not on filedocumented in this encounter Care Teams Retail Presentation Specialist Relationship Specialty Start Date End Date Belkys Bundy DO [address] [place] [address] PCP - General Family Medicine 03/21/19 documented as of this encounter
--- OUTSIDE RECORDS SUMMARY | 2024-04-23 18:38 | XMS_ITS | Encounter Summary ---
Author Organization [facility] [place] [address] Care Team Providers Care Jumpbasting Lining Baster Name Role Phone Belkys Bundy Primary Care Provider +1- [phone] Encounter Details Date Type Department Care Team (Late st Contact Info) Description 01/16/2021 Telephone Pulmonology at [facility] [place] [phone] Juanis Osullivan RT Social History Tobacco Use [...] PM EDT Office [place] [address] Kira Thayer MD [facility] [place] [address] documented as of this encounter Visit Diagnoses Not on filedocumented in this encounter Care Teams Jumpbasting Lining Baster Relationship Specialty Start Date End Date Belkys Bundy DO [address] [place] [address] PCP - General Family Medicine 03/21/19 documented as of this encounter
--- OUTSIDE RECORDS SUMMARY | 2024-04-23 18:38 | XMS_ITS | Encounter Summary ---
Author Organization [facility] Address [facility] [place] [address] Care Team Providers Care Paper Slitter Name Role Phone Belkys Bundy DO Primary Care Provider +1- [phone] Reason for Visit * Reason Comments Medication Refill Encounter Details Date Type Department Care Team (Late st Contact Info) Description 12/19/2020 Refill [place]ology [place] [address] Kervin Steiner Jr., MD [facility] [place] [address] Chronic obstructive pulmonary disease, unspecified COPD type [...] 4:00 PM EDT Office Visit Pulmonology [place] [address] Kira Thayer MD [facility] [place] [address] documented as of this encounter Visit Diagnoses Diagnosis Chronic obstructive pulmonary disease, unspecified COPD type documented in this encounter Care Teams Paper Slitter Relationship Specialty Start Date End Date Belkys Bundy DO [address] [place] [address] PCP - General Family Medicine 03/21/19 documented as of this encounter
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
--- OUTSIDE RECORDS SUMMARY | 2024-04-23 18:38 | XMS_ITS | Encounter Summary ---
Author Organization [facility] [place] [address] Care Team Providers Care Zigzag Elastic Attacher Name Role Phone Belkys Bundy DO Primary Care Provider +1- [phone] Encounter Details Date Type Department Care Team (Late st Contact Info) Description 10/16/2020 Orders [place] [address] Kira Thayer MD [facility] [place] [address] COPD, very severe Social History Tobacco Use [...] PM EDT Office Visit [place] [address] Kira Thayer MD [facility] [place] [address] documented as of this encounter Visit Diagnoses Diagnosis COPD, very severe Chronic airway obstruction, not elsewhere classified documented in this encounter Care Teams Zigzag Elastic Attacher Relationship Specialty Start Date End Date Belkys Bundy DO [address] [place] [address] PCP - General Family Medicine 03/21/19 documented as of this encounter
--- OUTSIDE RECORDS SUMMARY | 2024-04-23 18:38 | XMS_ITS | Encounter Summary ---
[place] [address] Care Team Providers Care English Professor Name Role Phone Belkys Bundy Primary Care Provider +1- [phone] Reason for Visit * Reason Onset Date Comments Oxygen Dependence 10/02/2020 Certificate of Medical Necessity Encounter Details Date Type Department Care Team (Late st Contact Info) Description 10/02/2020 [place] [address] Emily Starr RN Oxygen Dependence (Certificate of [...] Medical Necessity, signed by Dr. Thayer, to [facility]. This covered the following items: [...] 4:00 PM EDT [place] [address] Kira Thayer MD [facility] [place] [address] documented as of this encounter Visit Diagnoses Not on filedocumented in this encounter Care Teams English Professor Relationship Specialty Start Date End Date Belkys Bundy DO [address] [place] [address] PCP - General Family Medicine 03/21/19 documented as of this encounter
--- OUTSIDE RECORDS SUMMARY | 2024-04-23 18:38 | XMS_ITS | Encounter Summary ---
[place] [address] Care Team Providers Care Biostatistics Manager Name Role Phone Belkys Bundy Primary Care Provider +1- [phone] Encounter Details Date Type Department Care Team (Late st Contact Info) Description 08/20/2020 2:00 PM EDT TH Visit (TeleHealth) [place] [address] Juanis Osullivan, RT COPD, very severe Social [...] Jatin Sanchez participated in discussion Juanis Osullivan, FREIGHT AND PASSENGER AGENT,BROOM BUILDER documented in this encounter Miscellaneous Notes [...] 4:00 PM EDT Office [place] [address] Kira Thayer MD [facility] [place] [address] documented as of this encounter Visit Diagnoses Diagnosis COPD, very severe Chronic airway obstruction, not elsewhere classified documented in this encounter Care Teams Biostatistics Manager Relationship Specialty Start Date End Date Belkys Bundy DO [address] [place] [address] PCP - General Family Medicine 03/21/19 documented as of this encounter
--- OUTSIDE RECORDS SUMMARY | 2024-04-23 18:38 | XMS_ITS | Encounter Summary ---
[place] [address] Care Team Providers Care Heavy Equipment Operator Name Role Phone Belkys Bundy Primary Care Provider +1- [phone] Encounter Details Date Type Department Care Team (Late st Contact Info) Description 12/23/2020 1:00 PM EDT TH Visit (TeleHealth) [place] [address] Juanis Osullivan, RT COPD, very severe Social [...] Pulmonary Rehabilitation Exercise: please see Dary Wheat's FLOOR SUPERVISOR note Juanis Osullivan, CRYSTALIZER TENDER,AIRCRAFT ENGINE TECHNICIAN documented in this encounter Miscellaneous Notes * Treatment - Therapy - Dary Wheat, FLOOR SUPERVISOR - 12/23/2020 1:00 PM EDT Pulmonary Rehabilitation [...] 4:00 PM EDT [place] [address] Kira Thayer MD [facility] [place] [address] documented as of this encounter Visit Diagnoses Diagnosis COPD, very severe Chronic airway obstruction, not elsewhere classified documented in this encounter Care Teams Heavy Equipment Operator Relationship Specialty Start Date End Date Belkys Bundy DO [address] [place] [address] PCP - General Family Medicine 03/21/19 documented as of this encounter
--- OUTSIDE RECORDS SUMMARY | 2024-04-23 18:38 | XMS_ITS | Encounter Summary ---
[place] [address] Care Team Providers Care Back Tender Paper Machine Name Role Phone Belkys Bundy Primary Care Provider +1- [phone] Encounter Details Date Type Department Care Team (Late st Contact Info) Description 10/24/2020 2:00 PM EDT TH Visit (TeleHealth) [place] [address] Juanis Osullivan, RT COPD, very severe Social [...] pack this weekend for his week at [facility] next week. Jessie Sanchez exercised on 4 [...] see Jethro Knapp's PT note Juanis Osullivan, ASSISTANT MANAGER OF OPERATIONS,PARTNER INTEGRATION PLANNER documented in this encounter Miscellaneous Notes * [...] for his first sleep away camp with Addiction Counselor. EKG date have to reschedule form 11/03 [...] PM EDT Office Visit [place] [address] Kira Thayer MD [facility] [place] [address] documented as of this encounter Visit Diagnoses Diagnosis COPD, very severe Chronic airway obstruction, not elsewhere classified documented in this encounter Care Teams Back Tender Paper Machine Relationship Specialty Start Date End Date Belkys Bundy DO [address] [place] [address] PCP - General Family Medicine 03/21/19 documented as of this encounter
--- OUTSIDE RECORDS SUMMARY | 2024-04-23 18:38 | XMS_ITS | Encounter Summary ---
[place] [address] Care Team Providers Care Child Life Therapist Name Role Phone Belkys Bundy Primary Care Provider +1- [phone] Encounter Details Date Type Department Care Team (Late st Contact Info) Description 09/26/2020 2:00 PM EDT TH Visit (TeleHealth) [place] [address] Juanis Osullivan, RT COPD, very severe Social [...] see Jethro Knapp's PT note Juanis Osullivan, HEAD GRINDER,ESTIMATOR PRINTING documented in this encounter Miscellaneous Notes * [...] 4:00 PM EDT Office Visit [place] [address] Kira Thayer MD [facility] [place] [address] documented as of this encounter Visit Diagnoses Diagnosis COPD, very severe Chronic airway obstruction, not elsewhere classified documented in this encounter Care Teams Child Life Therapist Relationship Specialty Start Date End Date Belkys Bundy DO [address] [place] [address] PCP - General Family Medicine 03/21/19 documented as of this encounter
--- OUTSIDE RECORDS SUMMARY | 2024-04-23 18:38 | XMS_ITS | Encounter Summary ---
[place] [address] Care Team Providers Care Engineering Mgr Name Role Phone Belkys Bundy Primary Care Provider +1- [phone] Encounter Details Date Type Department Care Team (Late st Contact Info) Description 09/10/2020 2:00 PM EDT TH Visit (TeleHealth) [place] [address] Juanis Osullivan, RT COPD, very severe Social [...] #: 2 Comments: Exercise done utilizing the Vir2us on level 3 with O2 at 2 [...] Juanis Sanchez participated in discussion Juanis Osullivan, MANUFACTURING ENGINEERING TECHNICIAN,VALVE INSERTER documented in this encounter Miscellaneous Notes * [...] 4:00 PM EDT [place] [address] Kira Thayer MD [facility] [place] [address] documented as of this encounter Visit Diagnoses Diagnosis COPD, very severe Chronic airway obstruction, not elsewhere classified documented in this encounter Care Teams Engineering Mgr Relationship Specialty Start Date End Date Belkys Bundy DO [address] [place] [address] PCP - General Family Medicine 03/21/19 documented as of this encounter
--- OUTSIDE RECORDS SUMMARY | 2024-04-23 18:38 | XMS_ITS | Encounter Summary ---
[place] [address] Care Team Providers Care Telegraph Editor Name Role Phone Belkys Bundy DO Primary Care Provider +1- [phone] Reason for Visit * Reason Onset Date Comments Ekg 11/03/2020 Availability/Kelli eduling Encounter Details Date Type Department Care Team (Late st Contact Info) Description 11/03/2020 Tele[place] [address] Emily Starr RN Ekg (Availability/Schedulin g) Social [...] EDT Per Dr. Thayer's request, RN called [facility] Internal Medicine, office of Dr. Belkys Bundy DO (PCP), to see if patient could be scheduled for EKG. Call directed to voicemail, and RN LMOM requestingconfirmation of if this was possible. Requested call back. documented in this encounter Plan of Treatment Upcoming Encounters Date Type Department Care Team (Late st Contact Info) Description 08/27/2024 4:00 PM EDT Office [place] [address] Kira Thayer MD [facility] [place] [address] documented as of this encounter Visit Diagnoses Not on filedocumented in this encounter Care Teams Telegraph Editor Relationship Specialty Start Date End Date Belkys Bundy DO [address] [place] [address] PCP - General Family Medicine 03/21/19 documented as of this encounter
--- OUTSIDE RECORDS SUMMARY | 2024-04-23 18:38 | XMS_ITS | Encounter Summary ---
[place] [address] Care Team Providers Care Nutritionists Name Role Phone Belkys Bundy DO Primary Care Provider +1- [phone] Reason for Visit * Reason Onset Date Comments Ekg 10/15/2020 order requsition Encounter Details Date Type Department Care Team (Late st Contact Info) Description 10/15/2020 Telephone [place] [address] Emily Starr RN Ekg (order requsition) Social [...] submission confirmation time stamped for 10/15/2020 @ 8148. 4 pages with cover sheet. documented in this encounter Plan of Treatment Upcoming Encounters Date Type Department Care Team (Late st Contact Info) Description 08/27/2024 4:00 PM EDT Office [place] [address] Kira Thayer MD [facility] [place] [address] documented as of this encounter Visit Diagnoses Not on filedocumented in this encounter Care Teams Nutritionists Relationship Specialty Start Date End Date Belkys Bundy DO [address] [place] [address] PCP - General Family Medicine 03/21/19 documented as of this encounter
--- OUTSIDE RECORDS SUMMARY | 2024-04-23 18:38 | XMS_ITS | Encounter Summary ---
[place] [address] Care Team Providers Care Exhaust Machine Operator Name Role Phone Belkys Bundy Primary Care Provider +1- [phone] Encounter Details Date Type Department Care Team (Late st Contact Info) Description 01/20/2021 1:00 PM EDT TH Visit (TeleHealth) [place] [address] Juanis Osullivan, RT COPD, very severe Social [...] home exercise this past weekend. Juanis Osullivan, HEATING MECHANIC,SPECIAL PROCEDURES TECHNOLOGIST documented in this encounter Miscellaneous Notes * Treatment - Therapy - Dary Wheat, FLY WINDER - 01/20/2021 1:00 PM EDT Pulmonary Rehabilitation [...] 4:00 PM EDT Office [place] [address] Kira Thayer MD [facility] [place] [address] documented as of this encounter Visit Diagnoses Diagnosis COPD, very severe Chronic airway obstruction, not elsewhere classified documented in this encounter Care Teams Exhaust Machine Operator Relationship Specialty Start Date End Date Belkys Bundy DO [address] [place] [address] PCP - General Family Medicine 03/21/19 documented as of this encounter
--- OUTSIDE RECORDS SUMMARY | 2024-04-23 18:38 | XMS_ITS | Encounter Summary ---
Author Organization [facility] [place] [address] Care Team Providers Care Station Gateman Name Role Phone Belkys Bundy Primary Care Provider +1- [phone] Encounter Details Date Type Department Care Team (Latest Contact Info) Description 12/01/2020 1:00 PM EDT TH Visit (TeleHealth) [place] [address] Kira Thayer MD [facility] [place] [address] COPD, very severe; Supplemental oxygen dependent; Tobacco [...] from the original note were not included. [facility] Section of Pulmonary and Critical Care Medicine Outpatient Consultation Date of Encounter: 12/01/2020 TELEHEALTH VISIT Patient identity was confirmed at beginning of this telehealth visit. Patient is aware that this telehealth visit replaces an in-office clinical evaluation, is a billable encounter and agrees to continue. The patient is in [place]. Reason for Evaluation: Ms. Jessie Sanchez returns [...] 11 ??? fluticasone propionate (FLONASE) 50 mcg/actuation [place], Suspension ??? nicotine (NICODERM CQ) 21 mg/24 [...] Use with spacer 2 Inhaler 5 ??? hxxshxlfeau-pvwtrvpfw-infjpasm (Trelegy Ellipta) 200-62.5-25 mcg Disk with Device [...] transplant evaluation at a transplant center in [place]. She feels she would be interested in [...] visit - referral to lung transplant center ([facility] and [facility]) in process - repeat yanet/DLCO with next [...] on day of visit. Kira Thayer MD [facility] PULMONOLOGY AT [facility] [address] Dept: [phone] Loc: [phone] documented in this encounter Plan of Treatment Upcoming Encounters Date Type Department Care Team (Late st Contact Info) Description 08/27/2024 4:00 PM EDT [place] [address] Kira Thayer MD [facility] [place] [address] Scheduled Orders Name Type Priority Associated Diagnoses Orde r Schedule Pulmonary Function Testing PFT Routine COPD, very severe Expected: 03/03/2021, Expires: 09/02/2021 documented as of this encounter Visit Diagnoses Diagnosis COPD, very severe Chronic airway obstruction, not elsewhere classified Supplemental oxygen dependent Dependence on supplemental oxygen Tobacco use Tobacco use disorder Environmental allergies Allergic rhinitis, cause unspecified documented in this encounter Care Teams Station Gateman Relationship Specialty Start Date End Date Belkys Bundy DO [address] [place] [address] PCP - General Family Medicine 03/21/19 documented as of this encounter
--- OUTSIDE RECORDS SUMMARY | 2024-04-23 18:38 | XMS_ITS | Encounter Summary ---
[place] [address] Care Team Providers Care Panel Flow Machine Operator Name Role Phone Belkys Bundy Primary Care Provider +1- [phone] Encounter Details Date Type Department Care Team (Late st Contact Info) Description 09/17/2020 2:00 PM EDT TH Visit (TeleHealth) [place] [address] Juanis Osullivan, RT COPD, very severe Social [...] Jessie Alba participated in discussion. Juanis Osullivan, ACCOUNTS PAYABLE SPECIALIST,MATERIAL EXPEDITOR documented in this encounter Miscellaneous Notes * [...] EDT Office [place] [address] Kira Thayer MD [facility] [place] [address] documented as of this encounter Visit Diagnoses Diagnosis COPD, very severe Chronic airway obstruction, not elsewhere classified documented in this encounter Care Teams Panel Flow Machine Operator Relationship Specialty Start Date End Date Belkys Bundy DO [address] [place] [address] PCP - General Family Medicine 03/21/19 documented as of this encounter
--- OUTSIDE RECORDS SUMMARY | 2024-04-23 18:38 | XMS_ITS | Encounter Summary ---
Author Organization [facility] [place] [address] Care Team Providers Care Crop Or Grain Farmworker Name Role Phone Belkys Bundy DO Primary Care Provider +1- [phone] Encounter Details Date Type Department Care Team (Late st Contact Info) Description 10/17/2020 Telephone [place] [address] Millicent Valles Social History Tobacco [...] 4:00 PM EDT Office [place] [address] Kira Thayer MD [facility] [place] [address] documented as of this encounter Visit Diagnoses Not on filedocumented in this encounter Care Teams Crop Or Grain Farmworker Relationship Specialty Start Date End Date Belkys Bundy DO [address] [place] [address] PCP - General Family Medicine 03/21/19 documented as of this encounter
--- OUTSIDE RECORDS SUMMARY | 2024-04-23 18:38 | XMS_ITS | Encounter Summary ---
Author Organization [facility] Address [facility] [place] [address] Care Team Providers Care Ranch Hand Supervisor Name Role Phone Belkys Bundy Primary Care Provider +1- [phone] Encounter Details Date Type Department Care Team (Late st Contact Info) Description 08/22/2020 Tele[place] [address] Kira Thayer MD [facility] [place] [address] Social History Tobacco Use Types Packs/Day Years [...] 4:00 PM EDT Office [place] [address] Kira Thayer MD [facility] [place] [address] documented as of this encounter Visit Diagnoses Not on filedocumented in this encounter Care Teams Ranch Hand Supervisor Relationship Specialty Start Date End Date Belkys Bundy DO [address] [place] [address] PCP - General Family Medicine 03/21/19 documented as of this encounter
--- OUTSIDE RECORDS SUMMARY | 2024-04-23 18:38 | XMS_ITS | Encounter Summary ---
Author Organization [facility] [place] [address] Care Team Providers Care Administrative Fellow Name Role Phone Belkys Bundy Primary Care Provider +1- [phone] Encounter Details Date Type Department Care Team (Late st Contact Info) Description 10/03/2020 2:00 PM EDT TH Visit (TeleHealth) [place] [address] Juanis Osullivan, RT COPD, very severe Social [...] see Jethro Knapp's PT note Juanis Osullivan, MACHINE I TRIMMER,GIVING OFFICER documented in this encounter Miscellaneous Notes [...] EDT Office [place] [address] Kira Thayer MD [facility] [place] [address] documented as of this encounter Visit Diagnoses Diagnosis COPD, very severe Chronic airway obstruction, not elsewhere classified documented in this encounter Care Teams Administrative Fellow Relationship Specialty Start Date End Date Belkys Bundy DO [address] [place] [address] PCP - General Family Medicine 03/21/19 documented as of this encounter
--- OUTSIDE RECORDS SUMMARY | 2024-04-23 18:38 | XMS_ITS | Encounter Summary ---
[place] [address] Care Team Providers Care Precision Honer Name Role Phone Belkys Bundy Primary Care Provider +1- [phone] Reason for Referral * Diagnostic Test (Routine) - Closed Specialty Diagnoses / Procedures Referred By Rossy levine Referred To Contact Radiology Diagnoses Pulmonary nodule Procedures CT Chest wo Contrast (Generic) Kira Thayer MD [facility] [place] [address] [facility] [place] [address] Referral ID Status Reason Start Date Expiration Date V isits Requested Visits Authorized [id number] Closed Specialty Service Requested 03/02/2021 08/30/2022 1 1 Encounter Details Date Type Department Care Team (Late st Contact Info) Description 02/18/2021 10:30 AM EST Office [place] [address] Kira Thayer MD [facility] [place] [address] COPD, very severe; Supplemental oxygen [...] from the original note were not included. [facility] Section of Pulmonary and Critical Care [...] 11 ??? fluticasone propionate (FLONASE) 50 mcg/actuation [place], Suspension ??? ondansetron (Zofran) 4 mg Tablet TAKE 1 TABLET BY MOUTH EVERY 8 HOURS IF NEEDED FOR NAUSEA AND VOMITING ??? atorvastatin (Lipitor) 20 mg Tablet ??? cyclobenzaprine (Flexeril) 10 mg Tablet Take 10 mg by mouth as needed. ??? dicyclomine (BENTYL) 20 mg Tablet TAKE 1 TABLET BY MOUTH TWICE A DAY IF NEEDED FOR STOMACH UPPSET ??? zzwaxvnpzxh-uefzltxgq-gtpgaodo (Trelegy Ellipta) 200-62.5-25 mcg Disk with Device [...] lung transplant evaluationat a transplant center in [place]. She feels she would be interested in [...] ordered - referring to lung transplant center ([facility]) - repeat yanet/DLCO with next visit Follow-up with in-office visit in 3 months. Thank you for involving me in Ms. Sanchez's care. Please feel free to contact me with any further questions or concerns. MD Omari Hogue [facility] PULMONOLOGY AT [facility] [address] Dept: [phone] Loc: [phone] documented in this encounter Plan of Treatment Upcoming Encounters Date Type Department Care Team (Late st Contact Info) Description 08/27/2024 4:00 PM EDT Office [place] [address] Kira Thayer MD [facility] [place] [address] documented as of this encounter Procedures Procedure [...] / FVC LLN 69 % COMPAS PFT IZX43-24 Actual Pre-BD 0.15 L/s COMPAS PFT [id number] Pre-BD % of Predicted 5 % COMPAS PFT FLK25-12 Predicted 2.75 L/s COMPAS PFT ZHY63-11 Pre-BD Z-Score -4.92 COMPAS PFT DLCO Hb [...] who have questions please contact the health animal caretaker supervisor that requested your imaging first. ? Electronically signed by: Cori Schmidt MD, [facility] ([phone]), at 06/03/2021 9:35 AM Narrative 06/03/2021 9:35 [...] thoracic aorta stable at 3 cm. No [place] coronary artery calcification. Other mediastinal structures: No [...] ascendingthoracic aorta stable at 3 cm. No [place] coronary artery calcification. Other mediastinal structures: No [...] patients who have questions please contactthe health animal caretaker supervisor that requested your imaging first. Kira Thayer MD IMG CT ORDERABLES * (ABNORMAL) Blood Gas Arterial (02/18/2021 11:45 AM EST) pH, Arterial 7.42 7.35 - 7.45 [facility] PCO2, Arterial 42 35 - 45 mmHg [facility] PO2, Arterial 75(L) 85 - 104 mmHg [facility] Bicarbonate, Arterial 26.6(H) 20.0 - 26.0 mmol/L [facility] Base Excess, Arterial 2.1 -3.0 - 3.0 mmol/L [facility] Hgb Blood Gas 14.6 11.7 - 15.5 g/dL [facility] Comment: Interpret with caution, 1 ml syringe may give rise to occasional discrepant Hgb results. Oxyhemoglobin, Arterial 94.1 94.0 - 97.0 % [facility] Carboxyhemoglob in, Arterial 1.4 % [facility] Comment: Nonsmokers: ??0.5-1.5% COHB Smokers: ??Variable, but usually less than 10% Toxic: 20 - 30% COHB Lethal: ??Greater than 60% COHB Methemoglobin, Arterial 0.3 <=1.5 % [facility] Na Whole Blood 140 135 - 145 mmol/L [facility] K Whole Blood 4.0 3.5 - 5.0 mmol/L [facility] Comment: Please note: ??Patients with WBC >100,000 may have falsely elevated Potassium levels. ??Contact the Clinical Chemistry Laboratory if there are any questions. ICa Whole Blood 1.20 1.15 - 1.33 mmol/L [facility] Comment: Note: ??Total bilirubin higher than 20 mg/dL may lead to falsely low ionized calcium. CL Whole Blood 105 98 - 107 mmol/L [facility] Gluc Whole Bld 76 65 - 199 mg/dL [facility] Comment:Diabetes: >=200 mg/d L plus symptoms. Lactate WB 0.9 0.5 - 2.2 mmol/L [facility] FIO2 Art 21 % [facility] PF Ratio Art 357 [facility] Blood Arterial Draw / Unknown 02/18/2021 11:45 AM EST 02/18/2021 11:52 AM EST Narrative Resulting Agency Comment Spec In Lab Kira Thayer MD CHEMISTRY ORDERABLES [facility] [place] [address] documented in this encounter Visit Diagnoses Diagnosis COPD, very severe Chronic airway obstruction, not elsewhere classified Supplemental oxygen dependent Dependence on supplemental oxygen Environmental allergies Allergic rhinitis, cause unspecified Pulmonary nodule Solitary pulmonary nodule COPD, very severe Chronic airway obstruction, not elsewhere classified Pulmonary nodule Solitary pulmonary nodule documented in this encounter Care Teams Precision Honer Relationship Specialty Start Date End Date Belkys Bundy DO [address] [place] [address] PCP - General Family Medicine 03/21/19 documented as of this encounter
--- OUTSIDE RECORDS SUMMARY | 2024-04-23 18:38 | XMS_ITS | Encounter Summary ---
Author Organization [facility] [place] [address] Care Team Providers Care Balance Wheel Hand Filer Name Role Phone Belkys Bundy Primary Care Provider +1- [phone] Encounter Details Date Type Department Care Team (Late st Contact Info) Description 09/30/2020 10:00 AM EDT [place] [address] Kira Thayer MD [facility] [place] [address] COPD, very severe; Supplemental oxygen dependent; Tobacco [...] participating in pulmonary rehab this spring via [facility], feels it has been very effective. Past [...] 11 ??? fluticasone propionate (FLONASE) 50 mcg/actuation [place], Suspension ??? nicotine (NICODERM CQ) 21 mg/24 hr Patch 24 hr APPLY ONE PATCH TO THE SKIN EVERY DAY ??? albuteroL 90 mcg/actuation HFA Aerosol Inhaler Inhale 2 puffs into the lungs every 4 hours as needed for Wheezing or Shortness of Breath. Use with spacer 2 Inhaler 5 ??? mnovjszhpnj-mldgpfimq-dhzpsglb (Trelegy Ellipta) 200-62.5-25 mcg Disk with Device [...] UPPSET ??? fluticasone propionate (FLONASE) 50 mcg/actuation [place], Suspension by Nasal route. ??? levothyroxine (SYNTHROID) [...] prior EKG records (she thinks done at [facility] within past year); will request again - [...] tobacco cessation counseling. Kira Thayer MD [facility] PULMONOLOGY AT [facility] [address] Dept: [phone] Loc: [phone] documented in this encounter Plan of Treatment Upcoming Encounters Date Type Department Care Team (Late st Contact Info) Description 08/27/2024 4:00 PM EDT [place] [address] Kira Thayer MD [facility] DR PULMONARY MEDICINE [place] [id number] documented as of this encounter Visit Diagnoses Diagnosis COPD, very severe Chronic airway obstruction, not elsewhere classified Supplemental oxygen dependent Dependence on supplemental oxygen Tobacco use Tobacco use disorder Environmental allergies Allergic rhinitis, cause unspecified Gastroesophageal reflux disease, unspecified whether esophagitis present documented in this encounter Care Teams Balance Wheel Hand Filer Relationship Specialty Start Date End Date Belkys Bundy DO [address] [place] [address] PCP - General Family Medicine 03/21/19 documented as of this encounter
--- OUTSIDE RECORDS SUMMARY | 2024-04-23 18:38 | XMS_ITS | Encounter Summary ---
Author Organization [facility] [place] [address] Care Team Providers Care Wet Room Worker Name Role Phone Belkys Bundy Primary Care Provider +1- [phone] Encounter Details Date Type Department Care Team (Late st Contact Info) Description 08/29/2020 [place] [address] Sindy Brewer, RT Social History Tobacco Use [...] I encouraged Zoe to call the on-call Spool Winder if she continues to have difficulty over the weekend. RT Macario documented in this encounter Plan of Treatment Upcoming Encounters Date Type Department Care Team (Late st Contact Info) Description 08/27/2024 4:00 PM EDT Office [place] [address] [facility] [place] [address] documented as of this encounter Visit Diagnoses Not on filedocumented in this encounter Care Teams Wet Room Worker Relationship Specialty Start Date End Date Belkys Bundy DO [address] [place] [address] PCP - General Family Medicine 03/21/19 documented as of this encounter
--- OUTSIDE RECORDS SUMMARY | 2024-04-23 18:38 | XMS_ITS | Encounter Summary ---
Author Organization [facility] [place] [address] Care Team Providers Care Cosmetology Professor Name Role Phone Belkys Bundy DO Primary Care Provider +1- [phone] Encounter Details Date Type Department Care Team (Late st Contact Info) Description 12/24/2020 Telephone [place] [address] Millicent Valles Social History Tobacco [...] PM EDT Office [place] [address] Kira Thayer MD [facility] [place] [address] documented as of this encounter Visit Diagnoses Not on filedocumented in this encounter Care Teams Cosmetology Professor Relationship Specialty Start Date End Date Belkys Bundy DO [address] [place] [address] PCP - General Family Medicine 03/21/19 documented as of this encounter
--- OUTSIDE RECORDS SUMMARY | 2024-04-23 18:38 | XMS_ITS | Encounter Summary ---
[place] [address] Care Team Providers Care Scada Operator Name Role Phone Belkys Bundy Primary Care Provider +1- [phone] Reason for Visit * Reason Onset Date Comments Referral 08/15/2020 Encounter Details Date Type Department Care Team (Late st Contact Info) Description 08/15/2020 Telephone [place] [address] Emily Starr RN Referral Social [...] EDT Rec'd call back from [facility], seeking confirmation of dated on CT images that were requested. RN updated that CT images would be needed for 01/14/2020 and 03/28/2018. Images to be sent to [facility]. * Telephone Encounter - Emily Starr RN - 08/15/2020 2:55 PM EDT RN called to get images sent to [facility] from 05/12/2020 and 01/15/2020. RN requested image CD from [facility] image library be generated and sent to [facility] Lung Transplant Team. documented in this encounter Plan of Treatment Upcoming Encounters Date Type Department Care Team (Late st Contact Info) Description 08/27/2024 4:00 PM EDT Office Visit [place] [address] Kira Thayer MD [facility] [place] [address] documented as of this encounter Visit Diagnoses Not on filedocumented in this encounter Care Teams Scada Operator Relationship Specialty Start Date End Date Belkys Bundy DO [address] [place] [address] PCP - General Family Medicine 03/21/19 documented as of this encounter
--- OUTSIDE RECORDS SUMMARY | 2024-04-23 18:38 | XMS_ITS | Encounter Summary ---
Author Organization [facility] [place] [address] Care Team Providers Care Computer Video Game Designer Name Role Phone AnaBelkys moise Primary Care Provider +1- [phone] Encounter Details Date Type Department Care Team (Late st Contact Info) Description 01/27/2021 Telephone [place] [address] Juanis Osullivan, RT Social History Tobacco Use [...] bed last Wed, 01/21. She was sitting martiniquais style on the bed and reaching out [...] PM EDT Office [place] [address] Kira Thayer MD [facility] [place] [address] documented as of this encounter Visit Diagnoses Not on filedocumented in this encounter Care Teams Computer Video Game Designer Relationship Specialty Start Date End Date Belkys Bundy DO [address] [place] [address] PCP - General Family Medicine 03/21/19 documented as of this encounter
--- OUTSIDE RECORDS SUMMARY | 2024-04-23 18:39 | XMS_ITS | Encounter Summary ---
Author Organization [facility] Address [facility] [place] [address] Care Team Providers Care Orthopedic Specialist Name Role Phone Belkys Bundy Primary Care Provider +1- [phone] Encounter Details Date Type Department Care Team (Late st Contact Info) Description 05/02/2020 Telephone [place] [address] Kira Thayer MD [facility] [place] [address] Social History Tobacco Use Types Packs/Day Years [...] Jessie said if can not connect with [employer] [facility] [employer] to call her home number. documented in this encounter Plan of Treatment Upcoming Encounters Date Type Department Care Team (Late st Contact Info) Description 08/27/2024 4:00 PM EDT Office [place] [address] Kira Thayer MD [facility] [address] documented as of this encounter Visit Diagnoses Not on filedocumented in this encounter Care Teams Orthopedic Specialist Relationship Specialty Start Date End Date Belkys Bundy DO [address] [place] [address] PCP - General Family Medicine 03/21/19 documented as of this encounter
--- OUTSIDE RECORDS SUMMARY | 2024-04-23 18:39 | XMS_ITS | Encounter Summary ---
[place] [address] Care Team Providers Care Pulverizer Tender Name Role Phone Belkys Bundy Primary Care Provider +1- [phone] Reason for Visit * Reason Onset Date Comments Shortness of Breath 07/18/2020 Encounter Details Date Type Department Care Team (Late st Contact Info) Description 07/18/2020 Telephone [place] [address] Emily Starr, RN Shortness of Breath Social [...] that she had COVID-19 testing done at [facility], however has not received results yet.RN called [facility] for results, and was notified that lab sampling was taken on 07/17/2020, and resultsare negative. Forwarding to Dr. Thayer for update. documented in this encounter Plan of Treatment Upcoming Encounters Date Type Department Care Team (Late st Contact Info) Description 08/27/2024 4:00 PM EDT Office [place] [address] Kira Thayer MD [facility] [place] [address] documented as of this encounter Visit Diagnoses Not on filedocumented in this encounter Care Teams Pulverizer Tender Relationship Specialty Start Date End Date Belkys Bundy DO [address] [place] [address] PCP - General Family Medicine 03/21/19 documented as of this encounter
--- OUTSIDE RECORDS SUMMARY | 2024-04-23 18:39 | XMS_ITS | Encounter Summary ---
Author Organization [facility] [place] [address] Care Team Providers Care Carrot Grader Inspector Name Role Phone Belkys Bundy DO Primary Care Provider +1- [phone] Encounter Details Date Type Department Care Team (Late st Contact Info) Description 05/26/2020 [place] [address] Juanis Osullivan, RT Social History [...] 4:00 PM EDT [place] [address] Kira Thayer MD [facility] [place] [address] documented as of this encounter Visit Diagnoses Not on filedocumented in this encounter Care Teams Carrot Grader Inspector Relationship Specialty Start Date End Date Belkys Bundy DO [address] [place] [address] PCP - General Family Medicine 03/21/19 documented as of this encounter
--- OUTSIDE RECORDS SUMMARY | 2024-04-23 18:39 | XMS_ITS | Encounter Summary ---
Author Organization [facility] [place] [address] Care Team Providers Care Quarry Manager Name Role Phone Belkys Bundy DO Primary Care Provider +1- [phone] Encounter Details Date Type Department Care Team (Late st Contact Info) Description 01/22/2020 [place] [address] Cristin Block Social History Tobacco Use Types [...] 4:00 PM EDT Office [place] [address] Kira Thayer MD [facility] [place] [address] documented as of this encounter Visit Diagnoses Not on filedocumented in this encounter Care Teams Quarry Manager Relationship Specialty Start Date End Date Belkys Bundy DO [address] [place] [address] PCP - General Family Medicine 03/21/19 documented as of this encounter
--- OUTSIDE RECORDS SUMMARY | 2024-04-23 18:39 | XMS_ITS | Encounter Summary ---
[place] [address] Care Team Providers Care Allied Health Professional Name Role Phone Belkys Bundy Primary Care Provider +1- [phone] Reason for Visit * Reason Onset Date Comments Request For Record 07/18/2020 EKG Encounter Details Date Type Department Care Team (Late st Contact Info) Description 07/18/2020 [place] [address] Emily Starr RN Request For Record (EKG) [...] submission confirmation time stamped for 07/18/2020 @ 1063. 1 page documented in this encounter Plan of Treatment Upcoming Encounters Date Type Department Care Team (Late st Contact Info) Description 08/27/2024 4:00 PM EDT [place] [address] Kira Thayer MD [facility] [address] [place] [address] documented as of this encounter Visit Diagnoses Not on filedocumented in this encounter Care Teams Allied Health Professional Relationship Specialty Start Date End Date Belkys Bundy DO [address] [place] [address] PCP - General Family Medicine 03/21/19 documented as of this encounter
--- OUTSIDE RECORDS SUMMARY | 2024-04-23 18:39 | XMS_ITS | Encounter Summary ---
Author Organization [facility] Address [facility] [place] [address] Care Team Providers Care Regional Clinical Director Name Role Phone Belkys Bundy Primary Care Provider +1- [phone] Reason for Referral * Physical Therapy (Routine) - Closed Specialty Diagnoses / Procedures Referred By Rossy levine Referred To Contact Physical Therapy Diagnoses COPD, very severe Kervin Steiner Jr., MD [facility] [place] [address] Jennifer Morales, PT [facility] PHYSICAL MEDICINE & [place] [address] Referral ID Status Reason Start Date Expiration Date V isits Requested Visits Authorized [id number] Closed Evaluate and Treat 06/12/2020 06/12/2021 100 100 Encounter Details Date Type Department Care Team (Late st Contact Info) Description 06/11/2020 [place] [address] Kervin Steiner Jr., MD [facility] [place] [address] COPD, very severe Social History Tobacco Use [...] 4:00 PM EDT [place] [address] Kira Thayer MD [facility] [place] [address] Scheduled Referrals Name Type Priority Associated Diagnoses Orde r Schedule Referral to Physical Therapy Outpatient Referral Routine COPD, very severe Ordered: 06/12/2020 documented as of this encounter Visit Diagnoses Diagnosis COPD, very severe Chronic airway obstruction, not elsewhere classified documented in this encounter Care Teams Regional Clinical Director Relationship Specialty Start Date End Date Belkys Bundy DO [address] [place] [address] PCP - General Family Medicine 03/21/19 documented as of this encounter
--- OUTSIDE RECORDS SUMMARY | 2024-04-23 18:39 | XMS_ITS | Encounter Summary ---
[place] [address] Care Team Providers Care Garment Sewing Machine Operator Name Role Phone Belkys Bundy Primary Care Provider +1- [phone] Reason for Visit * Reason Onset Date Comments Request For Record 05/14/2020 pulmonary rec ords and imaging. Encounter Details Date Type Department Care Team (Late st Contact Info) Description 05/14/2020 [place] [address] Emily Starr RN Request For Record (pulmonary [...] records or images from patient's time at [facility], to [facility] per Dr. Thayer. Fax submission confirmation time stamped for 05/14/2020 @ 8260. 1 page. documented in this encounter Plan of Treatment Upcoming Encounters Date Type Department Care Team (Late st Contact Info) Description 08/27/2024 4:00 PM EDT [place] [address] Kira Thayer MD [facility] [place] [address] documented as of this encounter Visit Diagnoses Not on filedocumented in this encounter Care Teams Garment Sewing Machine Operator Relationship Specialty Start Date End Date Belkys Bundy DO [address] [place] [address] PCP - General Family Medicine 03/21/19 documented as of this encounter
--- OUTSIDE RECORDS SUMMARY | 2024-04-23 18:39 | XMS_ITS | Encounter Summary ---
Author Organization [facility] [place] [address] Care Team Providers Care Cloth Printer Helper Name Role Phone Belkys Bundy Primary Care Provider +1- [phone] Encounter Details Date Type Department Care Team (Late st Contact Info) Description 06/11/2020 Telephone Pulmonology at [facility] [place] [address] Juanis Osullivan RT Social History Tobacco Use [...] 4:00 PM EDT Office Visit [place] [address] Kira Thayer MD [facility] [place] [address] documented as of this encounter Visit Diagnoses Not on filedocumented in this encounter Care Teams Cloth Printer Helper Relationship Specialty Start Date End Date Belkys Bundy DO [address] [place] [address] PCP - General Family Medicine 03/21/19 documented as of this encounter
--- OUTSIDE RECORDS SUMMARY | 2024-04-23 18:39 | XMS_ITS | Encounter Summary ---
Author Organization [facility] Address [facility] [place] [address] Care Team Providers Care Hospital Chief Financial Officer Name Role Phone Gladis Jones APRN Primary Care Provider [phone] Reason for Visit * Auth/Cert Specialty Diagnoses / Procedures Referred By Rossy t Referred To Contact Diagnoses intestinal metaplasia proclear Procedures PRO UPPER GI ENDOSCOPY, DIAGNOSTIC EGD, UPPER GI ENDOSCOPY Referral ID Status Reason Start Date Expiration Date Visits Re quested Visits Authorized [id number] 1 1 Encounter Details Date Type Department Care Team (Late st Contact Info) Description 09/25/2018 3:45 PM EDT - 09/25/2018 4:15 PM EDT Surgery [place] [address] Sammie Johnson MD [facility] [place] [address] EGD, UPPER GI ENDOSCOPY (WRVU 2.09) Social [...] better as expected. Tuesday-Tuesday Same Day Endo [phone] 7a-8p Otherwise contact [phone] and ask to speak to the qa analyst environmental director Follow-up care is a troncoso part of [...] 4:00 PM EDT Office [place] [address] Kira Thayer MD [facility] [place] [address] documented as of this encounter Procedures Procedure [...] PM EDT 09/25/2018 4:21 PM EDT Narrative [facility] - 09/25/2018 4:21 PM EDT Specimen requisition ordered. ??Separate Pathology report to follow Sammie Johnson MD PATHOLOGY/CYTOLOGY O EDUARDO Performing Organization Address [facility] Co de Phone Number [facility] [place] [address] * Specimen to Pathology (09/25/2018 4:21 PM EDT) AP Specimen 09/25/2018 4:21 PM EDT 09/25/2018 4:21 PM EDT Narrative [facility] - 09/25/2018 4:21 PM EDT Specimen requisition ordered. ??Separate Pathology report to follow Sammie Johnson MD PATHOLOGY/CYTOLOGY O EDUARDO Performing Organization Address [facility] de Phone Number [place] [phone] * Surgical Pathology Report (09/25/2018 4:08 PM EDT) Final Diagnosis [id number] ? Location: 4T; EA08; A The signing [...] TRAVIS, Mabel Verified: ??09/29/2018 ?Pathologist Performed at: ??-[facility] [place], [place], [place] CLINICAL INFORMATION Specimen Submitted: A - [...] labeled B1. ??sns 09/29/2018 10:31 AM EDT [facility] GI Biopsy 09/25/2018 4:08 PM EDT 09/25/2018 4:08 PM EDT GI Biopsy 09/25/2018 4:08 PM EDT 09/25/2018 4:08 PM EDT Sammie Johnson MD PATHOLOGY/CYTOLOGY O EDUARDO [facility] [place] [address] * UPPER GI ENDOSCOPY (09/25/2018 3:53 PM EDT) UPPER GI ENDOSCOPY [facility] Endoscopy Procedure Date: 09/25/2018 3:53 PM ? Patient Name: Jessie Sanchez ? Date of : 1970 ? Age: 48 ? Order #: [id number] ? Instrument Name: [id number] ? Procedure: ? Upper GI endoscopy Indications: [...] PM PROVATION 09/25/2018 3:53 PM EDT Ehsan [facility] DERABLES PROVATION documented in [...] RN) documented in this encounter Care Teams Hospital Chief Financial Officer Relationship Specialty Start Date End Date Gladis Jones APRN PCP - General Family Medicine 09/25/18 03/20/19 documented as of this encounter
--- OUTSIDE RECORDS SUMMARY | 2024-04-23 18:39 | XMS_ITS | Encounter Summary ---
Author Organization [facility] [place] [address] Care Team Providers Care Printing Table Hand Name Role Phone Belkys Bundy DO Primary Care Provider [phone]- [phone] Encounter Details Date Type Department Care Team (Late st Contact Info) Description 01/14/2020 Ancillary Procedure Radiology Library at [facility] [place] [address] Kira Thayer MD [facility] [place] [address] Social History Tobacco Use Types Packs/Day Years [...] 4:00 PM EDT Office Visit Pulmonology at [facility] [place] [address] Kira Thayer MD [facility] [place] [address] documented as of this encounter Procedures Procedure [...] FILM LIBRARY ORD ERABLES Performing Organization Address City/State/[facility] Co de Phone Number [place], [place] documented in this encounter Visit Diagnoses Not on filedocumented in this encounter Care Teams Printing Table Hand Relationship Specialty Start Date End Date Belkys Bundy DO [address] [place] [address] PCP - General Family Medicine 03/21/19 documented as of this encounter
--- OUTSIDE RECORDS SUMMARY | 2024-04-23 18:39 | XMS_ITS | Encounter Summary ---
Author [facility] [place] [address] Care Team Providers Care Sap Crm Developer Name Role Phone Belkys Bundy Primary Care Provider [phone] Encounter Details Date Type Department Care Team (Late st Contact Info) Description 06/13/2020 2:00 PM EST TH Visit (TeleHealth) [place] [address] Juanis Osullivan, RT COPD, very severe Social [...] see Jennifer Morales's PT note Juanis Osullivan, MANUSCRIPTS CURATOR,MANUFACTURERS SERVICE REPRESENTATIVE documented in this encounter Miscellaneous Notes * [...] EDT Office [place] [address] Kira Thayer MD [facility] [place] [address] documented as of this encounter Visit Diagnoses Diagnosis COPD, very severe Chronic airway obstruction, not elsewhere classified documented in this encounter Care Teams Sap Crm Developer Relationship Specialty Start Date End Date Belkys Bundy DO [address] [place] [address] PCP - General Family Medicine 03/21/19 documented as of this encounter
--- OUTSIDE RECORDS SUMMARY | 2024-04-23 18:39 | XMS_ITS | Encounter Summary ---
Author Organization [facility] Address [facility] [place] [address] Care Team Providers Care Medical Coding Instructor Name Role Phone Belkys Bundy Virginie MYRICK Primary Care Provider [phone]- [phone] Reason for Visit * Physical Therapy (Routine) - Closed Specialty Diagnoses / Procedures Referred By Rossy levine Referred To Contact Physical Therapy Diagnoses COPD, very severe Kervin Steiner Jr., MD [facility] [place] [address] Adolph Morales, PT [facility] PHYSICAL MEDICINE & [place] [address] Referral ID Status Reason Start Date Expiration Date V isits Requested Visits Authorized [id number] Closed Evaluate and Treat 06/12/2020 06/12/2021 100 100 Encounter Details Date Type Department Care Team (Late st Contact Info) Description 07/08/2020 9:00 AM EDT TH Visit (TeleHealth) [place] [address] Adolph Morales, PT [facility] PHYSICAL MEDICINE & [place] [address] Chronic obstructive pulmonary disease, unspecified COPD type [...] Telemedicine Encounter Patient: Jessie Sanchez MR Number: [id number] Date of : 1970 Home [address]: [address] [place] [address] Phone Number (Home, Mobile): Mobile Not on file. Date of Visit: 07/08/2020 Patient Location at time of visit: [address] [place] [address], [place], [place]; Jessie Sanchez is aware that I will need to confirm this location each time we meet. Others in the same physical location as the patient: none This therapist is legally able to treat the [place] in [place] and [place] via [place] due to license waiver agreement during Covid 19 crisis. NOTE: Jessie Sanchez has verbally consented to participate in a Telemedicine visit with ADOLPH MORALES PT as her Rehabilitation Medicine provider while the [facility] Covid 19 crisis is taking place. This Telemedicine visit was comprised of both Audio and Visual through a secure [facility] throughout the duration of this visit. Patient understands this is a therapy service and will be billed to her insurance. Patient consents that therapy or educational materials could be sent through [facility] or e-mail addressat: [email or web address]. Jessie Sanchez did not have any questions for me at this time and was informed the best way to reach me is through [facility]. Activities of Daily Living Assessment - [...] 4:00 PM EDT Office [place] [address] Kira Thayer MD [facility] DR PULMONARY [place] [address] Scheduled Referrals Name Type Priority Associated Diagnoses Orde r Schedule Referral to Physical Therapy Outpatient Referral Routine COPD, very severe Ordered: 06/12/2020 documented as of this encounter Visit Diagnoses Diagnosis Chronic obstructive pulmonary disease, unspecified COPD type documented in this encounter Care Teams Medical Coding Instructor Relationship Specialty Start Date End Date Belkys Bundy DO [address] [place] [address] PCP - General Family Medicine 03/21/19 documented as of this encounter
--- OUTSIDE RECORDS SUMMARY | 2024-04-23 18:39 | XMS_ITS | Encounter Summary ---
Author Organization [facility] [place] [address] Care Team Providers Care Teleservices Representative Name Role Phone Ehsan Mathis Primary Care Provider [phone] Encounter Details Date Type Department Care Team (Late st Contact Info) Description 2018 Ancillary Procedure Radiology Library at [facility] [place] [address] Sammie Johnson MD [facility] [place] [address] Social History Tobacco Use Types Packs/Day Years [...] 4:00 PM EDT Office Visit Pulmonology at [facility] [place] [address] Kira Thayer MD [facility] [place] [address] documented as of this encounter Procedures Procedure Name Priority Date/Time Associated Diagnosis Comments FILM LIBRARY STORAGE ONLY NUCLEAR MEDICINE Routine 2018 12:00 AM EDT documented in this encounter Results * Film Library- Storage Only nuclear medicine (2018 12:00 AM EDT) Narrative [facility] - 10/20/2018 11:53 AM EDT This exam is auto-finalizing. It's purpose is for storage only. Sammie Johnson MD IMG FILM LIBRARY ORD ERABLES [place], [place] documented in this encounter Visit Diagnoses Not on filedocumented in this encounter Care Teams Teleservices Representative Relationship Specialty Start Date End Date Ehsan Mathis PA PCP - General General Internal Medicine 08/30/1809/09 documented as of this encounter
--- OUTSIDE RECORDS SUMMARY | 2024-04-23 18:39 | XMS_ITS | Encounter Summary ---
Author Organization [facility] Address [facility] [place] [address] Care Team Providers Care Clerical Support Specialist Name Role Phone Belkys Bundy DO Primary Care Provider +1- [phone] Reason for Visit * Reason Comments Skin Check * Consultation (Routine) - Specialty Diagnoses / Procedures Referred By Rossy levine Referred To Contact Dermatology Diagnoses Disorder of the skin and subcutaneous tissue, unspecified Lesion left upper chest Procedures Consult Belkys Bundy DO [address] [place] [address] Deven Payan MD [address] [facility] [place] [address] Referral ID Status Reason Start Date Expiration Date V isits Requested Visits Authorized [id number] Consult, Test & Treat PCP Updated and/or Approved 03/18/2019 03/17/2020 6 6 Encounter Details Date Type Department Care Team (Late st Contact Info) Description 05/17/2019 8:15 AM EST Office Visit Dermatology at [address] [place] [address] Deven Payan MD [address] [facility] [place] [address] Sebaceous hyperplasia; Telangiectasia Social History [...] 4:00 PM EDT Office [place] [address] Kira Thayer MD [facility] [place] [address] documented as of this encounter Visit Diagnoses Diagnosis Sebaceous hyperplasia Other specified disease of sebaceous glands Telangiectasia Other and unspecified capillary diseases documented in this encounter Care Teams Clerical Support Specialist Relationship Specialty Start Date End Date Belkys Bundy DO [address] [place] [address] PCP - General Family Medicine 03/21/19 documented as of this encounter
--- OUTSIDE RECORDS SUMMARY | 2024-04-23 18:39 | XMS_ITS | Encounter Summary ---
[place] [address] Care Team Providers Care Sugar Plantation Manager Name Role Phone Belkys Bundy Primary Care Provider [phone]- [phone] Encounter Details Date Type Department Care Team (Late st Contact Info) Description 07/23/2020 2:00 PM EDT TH Visit (TeleHealth) [place] [address] Juanis Osullivan, RT COPD, very severe Social [...] Jessie Sanchez participated in discussion Juanis Osullivan, INTERIOR DESIGN FACULTY MEMBER,INSIDE SALES TERRITORY MANAGER documented in this encounter Miscellaneous Notes [...] 4:00 PM EDT Office [place] [address] Kira Thayer MD [facility] [place] [address] documented as of this encounter Visit Diagnoses Diagnosis COPD, very severe Chronic airway obstruction, not elsewhere classified documented in this encounter Care Teams Sugar Plantation Manager Relationship Specialty Start Date End Date Belkys Bundy DO [address] [place] [address] PCP - General Family Medicine 03/21/19 documented as of this encounter
--- OUTSIDE RECORDS SUMMARY | 2024-04-23 18:39 | XMS_ITS | Encounter Summary ---
[place] [address] Care Team Providers Care Clinical Studies Specialist Name Role Phone Belkys Bundy Primary Care Provider [phone]- [phone] Encounter Details Date Type Department Care Team (Late st Contact Info) Description 07/04/2020 2:00 PM EDT TH Visit (TeleHealth) [place] [address] Juanis Osullivan, RT COPD, very severe Social [...] see Jethro Knapp PT note Juanis Osullivan, SPEECH AND LANGUAGE TUTOR,LEARNING AND DEVELOPMENT MANAGER documented in this encounter Miscellaneous Notes [...] 4:00 PM EDT Office [place] [address] Kira Thayer MD [facility] [place] [address] documented as of this encounter Visit Diagnoses Diagnosis COPD, very severe Chronic airway obstruction, not elsewhere classified documented in this encounter Care Teams Clinical Studies Specialist Relationship Specialty Start Date End Date Belkys Bundy DO [address] [place] [address] PCP - General Family Medicine 03/21/19 documented as of this encounter
--- OUTSIDE RECORDS SUMMARY | 2024-04-23 18:39 | XMS_ITS | Encounter Summary ---
[place] [address] Care Team Providers Care Manifest Clerk Name Role Phone Belkys Bundy Primary Care Provider [phone]- [phone] Encounter Details Date Type Department Care Team (Latest Contact Info) Description 05/26/2020 11:54 AM EST - 05/26/2020 11:59 PM EST Hospital Encounter [place] [address] Chronic obstructive pulmonary disease, unspecified COPD type [...] End Date inhalational spacing device (Ricci Aerosol [place] Enhancer) Spacer .MEDSUPPLY 02/01/2020 linaCLOtide (Linzess) 72 mcg Capsule Take 72 mcg by mouth as needed. Take 30 minutes before meal 05/09/2020 fluticasone propionate (FLONASE) 50 mcg/actuation [place], Suspension 02/01/2020 atorvastatin (Lipitor) 20 mg Tablet [...] 04/15/2020 06/25/2020 fluticasone propionate (FLONASE) 50 mcg/actuation [place], Suspension by Nasal route. 02/01/2020 09/30/2020 albuteroL 90 mcg/actuation HFA Aerosol InhalerIndications:Central Supply Clerk tomer obstructive pulmonary disease, unspecified COPD type Inhale 2 puffs into the lungs every 4 hours as needed for Wheezing or Shortness of Breath. Use with spacer 2 Inhaler 5 05/26/2020 12/23/2020 uvaslsmewsi-urxfgygfb-g ilanter (Trelegy Ellipta) 200-62.5-25 mcg Disk with [...] PM EDT Office [place] [address] Kira Thayer MD [facility] [place] [address] documented as of this encounter Procedures Procedure [...] / FVC LLN 69 % COMPAS PFT AXU25-22 Actual Pre-BD 0.21 L/s COMPAS PFT KQH41-62 Pre-BD % of Predicted 7 % COMPAS PFT MVS90-35 Predicted 2.82 L/s COMPAS PFT CLK87-60 Pre-BD Z-Score -4.72 COMPAS PFT DLCO Hb [...] type documented in this encounter Care Teams Manifest Clerk Relationship Specialty Start Date End Date Belkys Bundy DO [address] [place] [address] PCP - General Family Medicine 03/21/19 documented as of this encounter
--- OUTSIDE RECORDS SUMMARY | 2024-04-23 18:39 | XMS_ITS | Encounter Summary ---
Author Organization [facility] [place] [address] Care Team Providers Care Gaggerman Name Role Phone Belkys Bundy DO Primary Care Provider +1- [phone] Encounter Details Date Type Department Care Team (Late st Contact Info) Description 05/06/2020 [place] [address] Juanis Osullivan RT Social History Tobacco Use [...] 4:00 PM EDT [place] [address] Kira Thayer MD [facility] [place] [address] documented as of this encounter Visit Diagnoses Not on filedocumented in this encounter Care Teams Gaggerman Relationship Specialty Start Date End Date Belkys Bundy DO [address] [place] [address] PCP - General Family Medicine 03/21/19 documented as of this encounter
--- OUTSIDE RECORDS SUMMARY | 2024-04-23 18:39 | XMS_ITS | Encounter Summary ---
Author Organization [facility] [place] [address] Care Team Providers Care Supervisor Fish Hatchery Name Role Phone Niharika Belkys Rachel Primary Care Provider +1- [phone] Encounter Details Date Type Department Care Team (Late st Contact Info) Description 08/08/2020 [place] [address] Juanis Osullivan, RT Social History Tobacco Use [...] portable oxygen concentrator order be sent to [facility]. The unit she had received from her father is broken. She has been utilizing her portable oxygen concentrator at 3 pulse dose. She is unsure how long she has had oxygen from [facility]. Reviewed the Medicare O2 DME 5 year [...] 4:00 PM EDT [place] [address] Kira Thayer MD [facility] DR PULMONARY [place] [address] documented as of this encounter Visit Diagnoses Not on filedocumented in this encounter Care Teams Supervisor Fish Hatchery Relationship Specialty Start Date End Date Belkys Bundy DO [address] [place] [address] PCP - General Family Medicine 03/21/19 documented as of this encounter
--- OUTSIDE RECORDS SUMMARY | 2024-04-23 18:39 | XMS_ITS | Encounter Summary ---
Author Organization [facility] Address [facility] [place] [address] Care Team Providers Care Drag Out Man Name Role Phone Gladis Jones APRN Primary Care Provider [phone] Reason for Visit * Auth/Cert Specialty Diagnoses / Procedures Referred By Rossy t Referred To Contact Diagnoses intestinal metaplasia proclear Procedures PRO UPPER GI ENDOSCOPY, DIAGNOSTIC EGD, UPPER GI ENDOSCOPY Referral ID Status Reason Start Date Expiration Date Visits Re quested Visits Authorized [id number] 1 1 Encounter Details Date Type Department Care Team (Latest Contact Info) Description 09/25/2018 2:35 PM EDT - 09/25/2018 5:00 PM EDT Hospital En[place] [address] Sammie Johnson MD [facility] [place] [address] Discharge Disposition: Home Social History Tobacco Use [...] better as expected. Tuesday-Tuesday Same Day Endo [phone] 7a-8p Otherwise contact [phone] and ask to speak to the repair welder silk conditioner Follow-up care is a troncoso part of [...] 4:00 PM EDT [place] [address] Kira Thayer MD [facility] [place] [address] documented as of this encounter Procedures Procedure [...] PM EDT 09/25/2018 4:21 PM EDT Narrative [facility] - 09/25/2018 4:21 PM EDT Specimen requisition ordered. ??Separate Pathology report to follow Sammie Johnson MD PATHOLOGY/CYTOLOGY O EDUARDO Performing Organization Address [facility] [place] [address] * Specimen to Pathology (09/25/2018 4:21 PM EDT) AP Specimen 09/25/2018 4:21 PM EDT 09/25/2018 4:21 PM EDT Narrative [facility] - 09/25/2018 4:21 PM EDT Specimen requisition ordered. ??Separate Pathology report to follow Sammie Johnson MD PATHOLOGY/CYTOLOGY O EDUARDO Performing Organization Address [facility] [place] [address] * Surgical Pathology Report (09/25/2018 4:08 PM EDT) Final Diagnosis [id number] ? Location: 4T; EA08; A The signing [...] Givens MD Verified: ??09/29/2018 ?Pathologist Performed at: ??-[facility] Dept. of Pathology, [place], [place] CLINICAL INFORMATION Specimen Submitted: A - [...] labeled B1. ??sns 09/29/2018 10:31 AM EDT [facility] GI Biopsy 09/25/2018 4:08 PM EDT 09/25/2018 4:08 PM EDT GI Biopsy 09/25/2018 4:08 PM EDT 09/25/2018 4:08 PM EDT Sammie Johnson MD PATHOLOGY/CYTOLOGY O RDERAELIUD [facility] [place] [address] * UPPER GI ENDOSCOPY (09/25/2018 3:53 PM EDT) UPPER GI ENDOSCOPY [facility] Endoscopy Procedure Date: 09/25/2018 3:53 PM ? Patient Name: Jessie Sanchez ? Date of : 1970 ? Age: 48 ? Order #: [id number] ? Instrument Name: [id number] ? Procedure: ? Upper GI endoscopy Indications: ? long standing reflux treated with ? PPI, recent EGD showing intestinal ? metaplasia on gastric biopsies. ? Symptoms of bloating. Providers: ? Sammie Johnson MD, Neli Bautista RN, ? Kervin Lopez MD: ?hEsan Mathis Medicines: ? Midazolam 2.5 mg IV, [...] RN) documented in this encounter Care Teams Drag Out Man Relationship Specialty Start Date End Date Gladis Jones APRN PCP - General Family Medicine 09/25/18 03/20/19 documented as of this encounter
--- OUTSIDE RECORDS SUMMARY | 2024-04-23 18:39 | XMS_ITS | Encounter Summary ---
Author Organization [facility] [place] [address] Care Team Providers Care Chargeback Analyst Name Role Phone Belkys Bundy DO Primary Care Provider [phone]- [phone] Encounter Details Date Type Department Care Team (Late st Contact Info) Description 06/30/2020 [place] [address] Millicent Valles Social History Tobacco [...] EDT Office [place] [address] Kira Thayer MD [facility] [place] [address] documented as of this encounter Visit Diagnoses Not on filedocumented in this encounter Care Teams Chargeback Analyst Relationship Specialty Start Date End Date Belkys Bundy DO [address] [place] [address] PCP - General Family Medicine 03/21/19 documented as of this encounter
--- OUTSIDE RECORDS SUMMARY | 2024-04-23 18:39 | XMS_ITS | Encounter Summary ---
Author Organization [facility] Address [facility] [place] [address] Care Team Providers Care Host Coordinator Name Role Phone Jessie Dover APRN Primary Care Provider [phone] Reason for Visit * - Closed Specialty Diagnoses / Procedures Referred By Rossy levine Referred To Contact Procedures Film Library- Storage Only CT Chest Belkys Bundy DO [address] [place] [address] Referral ID Status Reason Start Date Expiration Date Visits Re quested Visits Authorized [id number] Closed 06/27/2020 06/27/2021 1 1 Encounter Details Date Type Department Care Team (Late st Contact Info) Description 03/28/2018 Ancillary Procedure Radiology Library at [facility] [place] [address] Belkys Bundy DO [address] [place] [address] Social History Tobacco Use Types Packs/Day Years [...] 4:00 PM EDT Office [place] [address] Kira Thayer MD [facility] [place] [address] documented as of this encounter Procedures Procedure Name Priority Date/Time Associated Diagnosis Comments FILM LIBRARY STORAGE ONLY CT CHEST Routine 03/28/2018 12:00 AM EST documented in this encounter Results * Film Library- Storage Only CT Chest (03/28/2018 12:00 AM EST) Narrative [facility] - 06/27/2020 4:44 PM EDT This exam is auto-finalizing. It's purpose is for storage only. Belkys Bundy DO IMG FILM LIBRARY O RDERABLES [place], [place] documented in this encounter Visit Diagnoses Not on filedocumented in this encounter Care Teams Host Coordinator Relationship Specialty Start Date End Date Jessie Dover APRN PCP - General 06/19/13 08/29/18 documented as of this encounter
--- OUTSIDE RECORDS SUMMARY | 2024-04-23 18:39 | XMS_ITS | Encounter Summary ---
Author Organization [facility] Address [facility] [place] [address] Care Team Providers Care Poker Dealer Name Role Phone Belkys Bundy Primary Care Provider +1- [phone] Encounter Details Date Type Department Care Team (Late st Contact Info) Description 07/16/2020 Telephone [place] [address] Kira Thayer MD [facility] [place] [address] Social History Tobacco Use Types Packs/Day Years [...] 4:00 PM EDT Office [place] [address] Kira Thayer MD [facility] [place] [address] documented as of this encounter Visit Diagnoses Not on filedocumented in this encounter Care Teams Poker Dealer Relationship Specialty Start Date End Date Belkys Bundy DO [address] [place] [address] PCP - General Family Medicine 03/21/19 documented as of this encounter
--- OUTSIDE RECORDS SUMMARY | 2024-04-23 18:39 | XMS_ITS | Encounter Summary ---
Author Organization [facility] [place] [address] Care Team Providers Care Compressor Battery Pellets Name Role Phone Jessie Dover Senait MARCELINO Primary Care Provider [phone] Encounter Details Date Type Department Care Team (Late st Contact Info) Description 07/27/2018 Ancillary Procedure Radiology Library at [facility] [place] [address] Sammie Johnson MD [facility] [place] [address] Social History Tobacco Use Types Packs/Day Years [...] 4:00 PM EDT Office Visit Pulmonology at [facility] [place] [address] Kira Thayer MD [facility] [place] [address] documented as of this encounter Procedures Procedure Name Priority Date/Time Associated Diagnosis Comments FILM LIBRARY STORAGE ONLY ULTRASOUND STUDY Routine 07/27/2018 12:00 AM EDT documented in this encounter Results * Film Library- Storage Only Ultrasound Study (07/27/2018 12:00 AM EDT) Narrative [facility] - 10/20/2018 11:51 AM EDT This exam is auto-finalizing. It's purpose is for storage only. Sammie Johnson MD IMG FILM LIBRARY ORD ERABLES [place], [place] documented in this encounter Visit Diagnoses Not on filedocumented in this encounter Care Teams Compressor Battery Pellets Relationship Specialty Start Date End Date Jessie Dover APRN PCP - General 06/19/13 08/29/18 documented as of this encounter
--- OUTSIDE RECORDS SUMMARY | 2024-04-23 18:39 | XMS_ITS | Encounter Summary ---
Author Organization [facility] [address] Care Team Providers Care Electrical Troubleshooter Name Role Phone Belkys Bundy Primary Care Provider [phone]- [phone] Encounter Details Date Type Department Care Team (Late st Contact Info) Description 06/04/2020 Telephone Pulmonology at [facility] [place] [address] Juanis Osullivan RT Social History Tobacco Use [...] pulmonary rehab today. Reviewed email contact information: [email or web address] -she will also [place] [facility] [place] and activate her my account for future pulm rehab sessions. She understood that DVT was ruled out by ultrasound. documented in this encounter Plan of Treatment Upcoming Encounters Date Type Department Care Team (Late st Contact Info) Description 08/27/2024 4:00 PM EDT Office Visit [place] [address] Kira Thayer MD [facility] [place] [address] documented as of this encounter Visit Diagnoses Not on filedocumented in this encounter Care Teams Electrical Troubleshooter Relationship Specialty Start Date End Date Belkys Bundy DO [address] [place] [address] PCP - General Family Medicine 03/21/19 documented as of this encounter
--- OUTSIDE RECORDS SUMMARY | 2024-04-23 18:39 | XMS_ITS | Encounter Summary ---
[place] [address] Care Team Providers Care Fuel Buyer Name Role Phone Belkys Bundy DO Primary Care Provider [phone]- [phone] Reason for Referral * Rehabilitation (Routine) - Closed Specialty Diagnoses / Procedures Referred By Rossy levine Referred To Contact Pulmonology Diagnoses Chronic obstructive pulmonary disease, unspecified COPD type Supplemental oxygen dependent Kira Thayer MD [facility] [place] [address] [facility] [place] [address] Referral ID Status Reason Start Date Expiration Date V isits Requested Visits Authorized [id number] Closed Evaluate and Treat 04/25/2020 04/25/2021 36 36 Reason for Visit * Consultation (Routine) - Closed Specialty Diagnoses / Procedures Referred By Rossy levine Referred To Contact Pulmonology Diagnoses Chronic obstructive pulmonary disease, unspecified Dependence on supplemental oxygen Belkys Bundy DO [address] [place] [address] [facility] Pulmonology [address] [place] [address] Referral ID Status Reason Start Date Expiration Date V isits Requested Visits Authorized [id number] Closed Consult, Test & Treat [facility] PCP Updated and/or Approved 01/18/2020 01/17/2021 6 6 Encounter Details Date Type Department Care Team (Latest Contact Info) Description 04/25/2020 10:00 AM EST TH Visit (TeleHealth) Pulmonology at [facility] [place] [address] Kira Thayer MD [facility] [place] [address] Chronic obstructive pulmonary disease, unspecified COPD type; [...] original note were not included. [facility] Section of Pulmonary and Critical Care Medicine Outpatient Consultation Date of Encounter: 04/25/2020 TELEHEALTH VISIT Patient identity was confirmed by name and date of at beginning of this telehealth visit. Patient was informed that this telehealth visit is a billable encounter and stated agreement to continue. The patient is at home in [place]. Referring Provider: Belkys Bundy DO [address] [place] [address] Reason for Evaluation: Belkys Bundy DO [address] [place] [address] referred Ms. Jessie Sanchez to the pulmonary [...] and was previously followed by apulmonologist in [place]. She is referred to use since their office no longer has a drier operator. Mrs. 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 [...] 2.49) performed by Sammie Johnson MD at [facility] ??? PRO UPPER GI ENDOSCOPY, DIAGNOSTIC N/A 09/25/2018 EGD, UPPER GI ENDOSCOPY performed by Sammie Johnson MD at [facility] Family History: Family History Problem [...] Take 10 mg by mouth daily. ??? hfgrnoubpof-odxnqzqwi-oakhanbe (Trelegy Ellipta) 100-62.5-25 mcg Disk with Device [...] I will request records from her previous drier operator to review before ordering chest CT imaging of this nodule. We discussed the COVID19 vaccine, and I encouraged he to pursue vaccination at her earliest opportunity. She does not currently qualify for vaccination in the state of [place] (age not >/= 75), but sheis high [...] day of visit. Kira Thayer MD [facility] AT [facility] [address] Dept: [phone] Loc: [phone] documented in this encounter Plan of Treatment Upcoming Encounters Date Type Department Care Team (Late st Contact Info) Description 08/27/2024 4:00 PM EDT Office [place] [address] Kira Thayer MD [facility] [place] [address] Scheduled Referrals Name Type Priority Associated Diagnoses [...] / FVC LLN 69 % COMPAS PFT [id number] Actual Pre-BD 0.21 L/s COMPAS PFT LZG07-74 Pre-BD % of Predicted 7 % COMPAS PFT MAQ45-23 Predicted 2.82 L/s COMPAS PFT [id number] Pre-BD Z-Score -4.72 COMPAS PFT DLCO Hb [...] type documented in this encounter Care Teams Fuel Buyer Relationship Specialty Start Date End Date Belkys Bundy DO [address] [place] [address] PCP - General Family Medicine 03/21/19 documented as of this encounter
--- OUTSIDE RECORDS SUMMARY | 2024-04-23 18:39 | XMS_ITS | Encounter Summary ---
Author Organization [facility] [place] [address] Care Team Providers Care Product Safety Professional Name Role Phone Belkys Bundy DO Primary Care Provider +1- [phone] Encounter Details Date Type Department Care Team (Late st Contact Info) Description 05/12/2020 Telephone [place] [address] Cristin Block Social History Tobacco Use Types [...] 4:00 PM EDT Office [place] [address] Kira Thayer MD [facility] [place] [address] documented as of this encounter Visit Diagnoses Not on filedocumented in this encounter Care Teams Product Safety Professional Relationship Specialty Start Date End Date Belkys Bundy DO [address] [place] [address] PCP - General Family Medicine 03/21/19 documented as of this encounter
--- OUTSIDE RECORDS SUMMARY | 2024-04-23 18:39 | XMS_ITS | Encounter Summary ---
Author Organization [facility] [place] [address] Care Team Providers Care Sprue Knocker Name Role Phone Belkys Bundy DO Primary Care Provider +1- [phone] Encounter Details Date Type Department Care Team (Late st Contact Info) Description 05/28/2020 Notes Only Pulmonology at [facility] [place] [address] Juanis Osullivan RT Social History Tobacco Use [...] 4:00 PM EDT Office [place] [address] Kira Thayer MD [facility] [place] [address] documented as of this encounter Visit Diagnoses Not on filedocumented in this encounter Care Teams Sprue Knocker Relationship Specialty Start Date End Date Belkys Bundy DO [address] [place] [address] PCP - General Family Medicine 03/21/19 documented as of this encounter
--- OUTSIDE RECORDS SUMMARY | 2024-04-23 18:39 | XMS_ITS | Encounter Summary ---
[place] [address] Care Team Providers Care Psychiatric Aide Name Role Phone Belkys Bundy Primary Care Provider +1- [phone] Encounter Details Date Type Department Care Team (Late st Contact Info) Description 08/08/2020 2:00 PM EDT TH Visit (TeleHealth) [place] [address] Juanis Osullivan, RT COPD, very severe Social [...] see Jethro Knapp's PT note Juanis Osullivan, MOTORBOAT MECHANIC INBOARD,CAGE LOADER documented in this encounter Miscellaneous Notes * [...] 4:00 PM EDT [place] [address] Kira Thayer MD [facility] [place] [address] documented as of this encounter Visit Diagnoses Diagnosis COPD, very severe Chronic airway obstruction, not elsewhere classified documented in this encounter Care Teams Psychiatric Aide Relationship Specialty Start Date End Date Belkys Bundy DO [address] [place] [address] PCP - General Family Medicine 03/21/19 documented as of this encounter
--- OUTSIDE RECORDS SUMMARY | 2024-04-23 18:39 | XMS_ITS | Encounter Summary ---
[place] [address] Care Team Providers Care Nail Feeder Name Role Phone Belkys Bundy Primary Care Provider +1- [phone] Encounter Details Date Type Department Care Team (Late st Contact Info) Description 07/16/2020 2:00 PM EDT TH Visit (TeleHealth) [place] [address] Juanis Osullivan, RT COPD, very severe Social [...] every 4-6 hours as needed. Juanis Osullivan, MACHINERY DISMANTLER,REFINING SUPERVISOR documented in this encounter Plan of Treatment Upcoming Encounters Date Type Department Care Team (Late st Contact Info) Description 08/27/2024 4:00 PM EDT Office [place] [address] Kira Thayer MD [facility] [place] [address] documented as of this encounter Visit Diagnoses Diagnosis COPD, very severe Chronic airway obstruction, not elsewhere classified documented in this encounter Care Teams Nail Feeder Relationship Specialty Start Date End Date Belkys Bundy DO [address] [place] [address] PCP - General Family Medicine 03/21/19 documented as of this encounter
--- OUTSIDE RECORDS SUMMARY | 2024-04-23 18:39 | XMS_ITS | Encounter Summary ---
Author Organization [facility] [place] [address] Care Team Providers Care Cake Mixer Name Role Phone RobesonJessie beckham Senait MARCELINO Primary Care Provider [phone] Reason for Visit * Reason Comments Follow-up Encounter Details Date Type Department Care Team (Late st Contact Info) Description 08/21/2014 9:30 AM EDT [place] [address] Saad Chang Jr., MD [facility] [place] [address] Flank pain Discharge Disposition: Home Social History [...] this, she had a repeat [place] [facility] and thissuggested an 8 mm non-obstructing stone [...] pack years Disabled 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
--- OUTSIDE RECORDS SUMMARY | 2024-04-23 18:39 | XMS_ITS | Encounter Summary ---
Author Organization [facility] [place] [address] Care Team Providers Care Asphalt Tar And Gravel Roofer Name Role Phone Niharika Belkys Virginie MYRICK Primary Care Provider +1- [phone] Encounter Details Date Type Department Care Team (Late st Contact Info) Description 07/18/2020 Telephone [place] [address] Juanis Osullivan, RT Social History Tobacco Use [...] up with immediate medical attention. Reviewed oncall trauma counsellor contact information at [facility] Will forward to Dr. Thayer to review. documented in this encounter Plan of Treatment Upcoming Encounters Date Type Department Care Team (Late st Contact Info) Description 08/27/2024 4:00 PM EDT Office [place] [address] Kira Thayer MD [facility] [place] [address] documented as of this encounter Visit Diagnoses Not on filedocumented in this encounter Care Teams Asphalt Tar And Gravel Roofer Relationship Specialty Start Date End Date Belkys Bundy DO [address] [place] [address] PCP - General Family Medicine 03/21/19 documented as of this encounter
--- OUTSIDE RECORDS SUMMARY | 2024-04-23 18:39 | XMS_ITS | Encounter Summary ---
Author Organization [facility] [place] [address] Care Team Providers Care Moss Bleacher Name Role Phone Belkys Bundy DO Primary Care Provider +1- [phone] Encounter Details Date Type Department Care Team (Late st Contact Info) Description 05/17/2019 Telephone [place] [address] Cristin Block Social History Tobacco Use Types [...] 4:00 PM EDT Office [place] [address] Kira Thayer MD [facility] [place] [address] documented as of this encounter Visit Diagnoses Not on filedocumented in this encounter Care Teams Moss Bleacher Relationship Specialty Start Date End Date Belkys Bundy DO [address] [place] [address] PCP - General Family Medicine 03/21/19 documented as of this encounter
--- OUTSIDE RECORDS SUMMARY | 2024-04-23 18:39 | XMS_ITS | Encounter Summary ---
Author Organization [facility] [place] [address] Care Team Providers Care Pick Pack Worker Name Role Phone Belkys Bundy Primary Care Provider +1- [phone] Encounter Details Date Type Department Care Team (Late st Contact Info) Description 06/11/2020 2:00 PM EST TH Visit (TeleHealth) [place] [address] Juanis Osullivan RT COPD, very severe Social [...] PM EDT Office [place] [address] [facility] [place] [address] documented as of this encounter Visit Diagnoses Diagnosis COPD, very severe Chronic airway obstruction, not elsewhere classified documented in this encounter Care Teams Pick Pack Worker Relationship Specialty Start Date End Date Belkys Bundy DO [address] [place] [address] PCP - General Family Medicine 03/21/19 documented as of this encounter
--- OUTSIDE RECORDS SUMMARY | 2024-04-23 18:39 | XMS_ITS | Encounter Summary ---
Author Organization [facility] [place] [address] Care Team Providers Care Relief Captain Name Role Phone Belkys Bundy DO Primary Care Provider +1- [phone] Encounter Details Date Type Department Care Team (Late st Contact Info) Description 01/22/2020 Tele[place] [address] Cristin Block Social History Tobacco Use Types [...] EDT Office [place] [address] Kira Thayer MD [facility] [place] [address] documented as of this encounter Visit Diagnoses Not on filedocumented in this encounter Care Teams Relief Captain Relationship Specialty Start Date End Date Belkys Bundy DO [address] [place] [address] PCP - General Family Medicine 03/21/19 documented as of this encounter
--- OUTSIDE RECORDS SUMMARY | 2024-04-23 18:39 | XMS_ITS | Encounter Summary ---
Author Organization [facility] [place] [address] Care Team Providers Care Sexer Name Role Phone Belkys Bundy Primary Care Provider +1- [phone] Encounter Details Date Type Department Care Team (Latest Contact Info) Description 06/25/2020 9:30 AM EDT TH Visit (TeleHealth) [place] [address] Kira Thayer MD [facility] [place] [address] COPD, very severe; Supplemental oxygen dependent; Tobacco [...] from the original note were not included. [facility] Section of Pulmonary and Critical Care Medicine Outpatient Consultation Date of Encounter: 06/25/2020 TELEHEALTH VISIT Patient identity was confirmed by name and date of at beginning of this telehealth visit. Patient was informed that this telehealth visit is a billable encounter and stated agreement to continue. The patient is at home in [place]. Reason for Evaluation: Ms. Jessie Sanchez returns [...] getting some walking in, currently goes to [facility] and can do a big lab around [...] Refill ??? fluticasone propionate (FLONASE) 50 mcg/actuation [place], Suspension ??? montelukast (Singulair) 10 mg Tablet [...] STOP ??? fluticasone propionate (FLONASE) 50 mcg/actuation [place], Suspension by Nasal route. ??? atorvastatin (Lipitor) [...] Use with spacer 2 Inhaler 5 ??? pjuniprkotb-iczoolhza-gqtmjcwa (Trelegy Ellipta) 200-62.5-25 mcg Disk with Device [...] may have had this done at [facility] recently. She is engaged with pulmonary rehab. She is already using supplemental home O2. She is interested in a referral to a lung transplant center, and I will place a referral to [facility] for this. I think this may be [...] EKG records (she thinks done at [facility] within past year); if hasn't been done may needupdated EKG this spring - plan to start trial of chronic azithromycin after obtaining EKG - will work on referral to lung transplant center ([facility]) - she is working on tobacco cessation [...] on day of visit. Kira Thayer MD [facility] PULMONOLOGY AT [facility] [address] Dept: [phone] Loc: [phone] documented in this encounter Plan of Treatment Upcoming Encounters Date Type Department Care Team (Late st Contact Info) Description 08/27/2024 4:00 PM EDT [place] [address] Kira Thayer MD [facility] [place] [address] documented as of this encounter Results * [...] / FVC LLN 69 % COMPAS PFT TNP63-63 Actual Pre-BD 0.30 L/s COMPAS PFT DDW41-28 Pre-BD % of Predicted 11 % COMPAS PFT VRF56-95 Predicted 2.78 L/s COMPAS PFT PDI03-56 Pre-BD Z-Score -4.34 COMPAS PFT DLCO Hb [...] classified documented in this encounter Care Teams Sexer Relationship Specialty Start Date End Date Belkys Bundy DO [address] [place] [address] PCP - General Family Medicine 03/21/19 documented as of this encounter
--- OUTSIDE RECORDS SUMMARY | 2024-04-23 18:39 | XMS_ITS | Encounter Summary ---
Author Organization [facility] [place] [address] Care Team Providers Care Sap Trainer Name Role Phone Jessie Dover Senait MARCELINO Primary Care Provider [phone] Encounter Details Date Type Department Care Team (Late st Contact Info) Description 04/04/2016 Ancillary Procedure Radiology Library at [facility] [place] [address] Sammie Johnson MD [facility] [place] [address] Social History Tobacco Use Types Packs/Day Years [...] 4:00 PM EDT Office Visit Pulmonology at [facility] [place] [address] Kira Thayer MD [facility] [place] [address] documented as of this encounter Procedures Procedure [...] Johnson MD IMG FILM LIBRARY ORD ERABLES [place], [place] documented in this encounter Visit Diagnoses Not on filedocumented in this encounter Care Teams Sap Trainer Relationship Specialty Start Date End Date Jessie Dover APRN PCP - General 06/19/13 08/29/18 documented as of this encounter
--- OUTSIDE RECORDS SUMMARY | 2024-04-23 18:39 | XMS_ITS | Encounter Summary ---
Author Organization [facility] [address] Care Team Providers Care Modern And Contemporary Art Curator Name Role Phone Belkys Bundy Primary Care Provider [phone]- [phone] Encounter Details Date Type Department Care Team (Latest Contact Info) Description 06/20/2020 2:00 PM EST TH Visit (TeleHealth) [place] [address] Juanis Osullivan, RT Supplemental oxygen dependent; COPD, [...] PM EDT Office [place] [address] Kira Thayer MD [facility] [place] [address] documented as of this encounter Visit Diagnoses Diagnosis Supplemental oxygen dependent Dependence on supplemental oxygen COPD, very severe Chronic airway obstruction, not elsewhere classified documented in this encounter Care Teams Modern And Contemporary Art Curator Relationship Specialty Start Date End Date Belkys Bundy DO [address] [place] [address] PCP - General Family Medicine 03/21/19 documented as of this encounter
--- OUTSIDE RECORDS SUMMARY | 2024-04-23 18:39 | XMS_ITS | Encounter Summary ---
Author Organization [facility] [place] [address] Care Team Providers Care Immigration Services Officer Name Role Phone Ehsan Mathis Primary Care Provider [phone] Encounter Details Date Type Department Care Team (Late st Contact Info) Description 09/20/2018 Telephone [place] [address] Yoana Perea Social History Tobacco Use Types [...] - 09/20/2018 1:33 PM EDT Jessie Daniel [id number] Diagnosis: intestinal metaplasia 1. Have you ever [...] [] YES [] NO If Yes send inOkan message to [facility] ENDO DEVICE CHECK 4. Are you a [...] NO 11. You must have a responsible green party stay at the facility during your procedure [...] 4:00 PM EDT Office [place] [address] Kira Thayer MD [facility] [address] documented as of this encounter Visit Diagnoses Not on filedocumented in this encounter Care Teams Immigration Services Officer Relationship Specialty Start Date End Date Ehsan Mathis PA PCP - General General Internal Medicine 08/30/1809/09 documented as of this encounter
--- OUTSIDE RECORDS SUMMARY | 2024-04-23 18:39 | XMS_ITS | Encounter Summary ---
Author Organization [facility] [place] [address] Care Team Providers Care Helpdesk Administrator Name Role Phone Belkys Bundy DO Primary Care Provider [phone]- [phone] Encounter Details Date Type Department Care Team (Late st Contact Info) Description 03/27/2019 [place] [address] Cristin Block Social History Tobacco Use Types [...] EDT [place] [address] Kira Thayer MD [facility] PULMONARY MEDICINE [place], [place] [id number] documented as of this encounter Visit Diagnoses Not on filedocumented in this encounter Care Teams Helpdesk Administrator Relationship Specialty Start Date End Date Belkys Bundy DO [address] [place] [address] PCP - General Family Medicine 03/21/19 documented as of this encounter
--- OUTSIDE RECORDS SUMMARY | 2024-04-23 18:39 | XMS_ITS | Encounter Summary ---
Author Organization [facility] Address [facility] [place] [address] Care Team Providers Care Cable Driller Name Role Phone OliverBelkys moore Virginie MYRICK Primary Care Provider [phone] Reason for Visit * Reason Comments Follow-up * Rehabilitation (Routine) - Closed Specialty Diagnoses / Procedures Referred By Rossy levine Referred To Contact Pulmonology Diagnoses Chronic obstructive pulmonary disease, unspecified COPD type Supplemental oxygen dependent Kira Thayer MD [facility] [place] [address] [facility] [place] [address] Referral ID Status Reason Start Date Expiration Date V isits Requested Visits Authorized [id number] Closed Evaluate and Treat 04/25/2020 04/25/2021 36 36 Encounter Details Date Type Department Care Team (Late st Contact Info) Description 05/26/2020 1:00 PM EST Office [place] [address] Juanis Osullivan, RT Chronic obstructive [...] preparation for potential lung transplant Juanis Osullivan, GETTER OPERATOR,AGRICULTURAL INSPECTOR documented in this encounter Progress Notes * [...] 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 Prior to covid pandemic she enjoyed going to [employer] weekly. Currently connected with palliative care Nutrition: [...] dyspnea Covid-19 immunization: Jessie Sanchez lives in [place] and understood that she needed a medical note related to high risk individual to be able to receive covid-19 vaccine. Provided copy of her telehealth visit with Dr. Thayer that includes recommendation for her to receive her Covid-19 vaccines. Changes in Pulmonary Rehabilitation secondary to Covid-19 precautions. The pulmonary rehabilitation program currently meets via [employer] weekly for education and participants continue with their home exercise program with weekly review with the pulmonary rehab staff. The program is under the direction of the medical front desk coordinator, Dr. Kervin Steiner. Educational classes provided regarding anatomy/physiology of lung disease, breathing retraining, medications, warning signs of infection, environmental risk factors, exercise, energy conservation, stress management and relaxation techniques, coping with a chronic lung disease, nutritional and lung disease, community resources, travel and lung disease. The patient???s progress will be reviewed with the medical front desk coordinator every 2-4 weeks during the program. Reviewed [...] severe (almost maximal) 10 [facility] [place] ([facility]) Dyspnea Scale: 0: Breathless with strenuous [...] 4:00 PM EDT Office [place] [address] Kira Thayer MD [facility] [place] [address] documented as of this encounter Visit Diagnoses Diagnosis Chronic obstructive pulmonary disease, unspecified COPD type- Primary COPD, very severe Chronic airway obstruction, not elsewhere classified documented in this encounter Care Teams Cable Driller Relationship Specialty Start Date End Date Belkys Bundy DO [address] [place] [address] PCP - General Family Medicine 03/21/19 documented as of this encounter
--- OUTSIDE RECORDS SUMMARY | 2024-04-23 18:39 | XMS_ITS | Encounter Summary ---
[place] [address] Care Team Providers Care Student Life Advisor Name Role Phone Belkys Bundy Primary Care Provider [phone]- [phone] Encounter Details Date Type Department Care Team (Late st Contact Info) Description 07/25/2020 2:00 PM EDT TH Visit (TeleHealth) [place] [address] Juanis Osullivan, RT COPD, very severe Social [...] days ago. Yesterday she walked around the [place]. 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, CORRECTIONAL CLASSIFICATION COUNSELOR,VP PRODUCTION documented in this encounter Miscellaneous Notes * [...] hamstring. ?? Comments: Jessie Sanchez walked around [employer] a few times before shopping for exercise. [...] 4:00 PM EDT [place] [address] Kira Thayer MD [facility] [place] [address] documented as of this encounter Visit Diagnoses Diagnosis COPD, very severe Chronic airway obstruction, not elsewhere classified documented in this encounter Care Teams Student Life Advisor Relationship Specialty Start Date End Date Belkys Bundy DO [address] [place] [address] PCP - General Family Medicine 03/21/19 documented as of this encounter
--- OUTSIDE RECORDS SUMMARY | 2024-04-23 18:39 | XMS_ITS | Encounter Summary ---
[place] [address] Care Team Providers Care Weight Loss Counselor Name Role Phone Belkys Bundy Primary Care Provider [phone]- [phone] Encounter Details Date Type Department Care Team (Late st Contact Info) Description 07/09/2020 2:00 PM EDT TH Visit (TeleHealth) [place] [address] Juanis Osullivan, RT COPD, very severe Social [...] mop for energy conservation strategy Juanis Osullivan, TYPEWRITER REPAIRER,DIRECTOR SALES TRAINING documented in this encounter Miscellaneous Notes * [...] 4:00 PM EDT Office [place] [address] Kira Thayer MD [facility] [place] [address] documented as of this encounter Visit Diagnoses Diagnosis COPD, very severe Chronic airway obstruction, not elsewhere classified documented in this encounter Care Teams Weight Loss Counselor Relationship Specialty Start Date End Date Belkys Bundy DO [address] [place] [address] PCP - General Family Medicine 03/21/19 documented as of this encounter
--- OUTSIDE RECORDS SUMMARY | 2024-04-23 18:39 | XMS_ITS | Encounter Summary ---
Author Organization [facility] [place] [address] Care Team Providers Care County Coroner Name Role Phone Belkys Bundy DO Primary Care Provider [phone]- [phone] Encounter Details Date Type Department Care Team (Late st Contact Info) Description 07/04/2020 Telephone [place] [address] Eva Swenson Social History Tobacco [...] 4:00 PM EDT Office [place] [address] Kira Thayer MD [facility] [place] [address] documented as of this encounter Visit Diagnoses Not on filedocumented in this encounter Care Teams County Coroner Relationship Specialty Start Date End Date Belkys Bundy DO [address] [place] [address] PCP - General Family Medicine 03/21/19 documented as of this encounter
--- OUTSIDE RECORDS SUMMARY | 2024-04-23 18:39 | XMS_ITS | Encounter Summary ---
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 Comments: Went for a walk when the [...] 4:00 PM EDT [place] [address] Kira Thayer MD [facility] [place] [address] documented as of this encounter Visit Diagnoses Diagnosis Chronic obstructive pulmonary disease, unspecified COPD type documented in this encounter Care Teams Signal Timer Relationship Specialty Start Date End Date Belkys Bundy DO [address] [place] [address] PCP - General Family Medicine 03/21/19 documented as of this encounter
--- OUTSIDE RECORDS SUMMARY | 2024-04-23 18:39 | XMS_ITS | Encounter Summary ---
Author Organization [facility] [place] [address] Care Team Providers Care Supervisor Commercial Fish Hatchery Name Role Phone Belkys Bundy DO Primary Care Provider +1- [phone] Encounter Details Date Type Department Care Team (Late st Contact Info) Description 01/24/2020 Telephone [place] [address] Cristin Block Social History Tobacco Use Types [...] EDT Office [place] [address] Kira Thayer MD [facility] PULMONARY MEDICINE [place], [place] [address] documented as of this encounter Visit Diagnoses Not on filedocumented in this encounter Care Teams Supervisor Commercial Fish Hatchery Relationship Specialty Start Date End Date Belkys Bundy DO [address] [place] [address] PCP - General Family Medicine 03/21/19 documented as of this encounter
--- OUTSIDE RECORDS SUMMARY | 2024-04-23 18:40 | XMS_ITS | Encounter Summary ---
Author Organization [facility] [place] [address] Care Team Providers Care Building Supervisor Name Role Phone Jessie Dover RYLAND Primary Care Provider [phone] Encounter Details Date Type Department Care Team (Late st Contact Info) Description 06/19/2013 Telephone [place] [address] Daryl Hurt MD [facility] [place] [address] Social History Tobacco Use Types Packs/Day Years [...] 4:00 PM EDT Office [place] [address] Kira Thayer MD [facility] [place] [address] documented as of this encounter Results * [...] exacerbation documented in this encounter Care Teams Building Supervisor Relationship Specialty Start Date End Date Jessie Dover APRN PCP - General 06/19/13 08/29/18 documented as of this encounter
--- OUTSIDE RECORDS SUMMARY | 2024-04-23 18:40 | XMS_ITS | Encounter Summary ---
Author Organization [facility] [place] [address] Care Team Providers Care Culinary Intern Name Role Phone MccullochJessie beckham Senait MARCELINO Primary Care Provider [phone] Reason for Visit * Reason Comments Referral Encounter Details Date Type Department Care Team (Late st Contact Info) Description 06/19/2013 2:30 PM EDT Office Visit [place] [address] Daryl Hurt MD [facility] [place] [address] Lung nodule (Primary Dx); COPD (chronic obstructive [...] imaging to be done here or at [facility]. * Woo Jiménez MD - 06/19/2013 10:48 AM EDT [facility] Section of Pulmonary and Critical Care Medicine Date of Encounter: 06/19/2013 Location: Office Referring Provider: Daryl Hurt Md [facility] [place] [address] C/C: Lung nodule HPI: 42 y/o female seen for recently discovered lung nodule. As per the patient she had COPD exacerbation for which she was admitted at [facility] in 01/2013. She was in hospital for about 4 days followingwhich she was discharged home on oxygen. She was not intubated during that visit. During that admission they found her to have a nodule in her lung. She was seen by pulmonary at [facility] and was told notto work due to [...] Lives with her mother. 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 Family History: Father alive 70 yrs and [...] comfortably, able to talk in full sentence FAMILY PRACTICE NURSE PRACTITIONER: A and OX3, no focal motor deficits [...] CT CHEST. This can be done at [facility] or it can be done here at [facility]. Smoking cessation as discussed in #4. 2. [...] has been seeing smoking cessation program at [facility]. We did talk about it detail on today's visit and recommended cessation as the best thing she can do for herself. She can follow up with her crossing guard at [facility] or with us at [facility]. As this time no follow up appointment has been scheduled. Patient seen and examined with Dr Hurt. documented in this encounter Plan of Treatment Upcoming Encounters Date Type Department Care Team (Late st Contact Info) Description 08/27/2024 4:00 PM EDT Office Visit [place] [address] Kira Thayer MD [facility] [place] [address] documented as of this encounter Visit Diagnoses Diagnosis Lung nodule- Primary Solitary pulmonary nodule COPD (chronic obstructive pulmonary disease) Chronic airway obstruction, not elsewhere classified Smoking Tobacco use disorder Hypoxemia documented in this encounter Care Teams Culinary Intern Relationship Specialty Start Date End Date Jessie Dover APRN PCP - General 06/19/13 08/29/18 documented as of this encounter
--- OUTSIDE RECORDS SUMMARY | 2024-04-23 18:40 | XMS_ITS | Encounter Summary ---
Author Organization [facility] Address [address] [place] [address] Care Team Providers Care Well Drill Operator Rotary Drill Name Role Phone Genet Sauer MD Primary Care Provider [phone] Encounter Details Date Type Department Care Team (Late st Contact Info) Description 10/05/2023 Lab Requisition [facility] Pathology & Laboratory Medicine - [address] [address] Outr Resulting Lab, Provider Social History Tobacco [...] Ab Positive See Note 10/06/2023 11:09 EDT [facility] Comment:Presence of detectab le measles virus IgG antibodies. Blood VENOUS BLOOD / Unknown 10/05/2023 9:32 EDT 10/05/2023 19:26 EDT us Provider Outr Resulting Lab IMMUNOLOGY AND SEROL OGY ORDERABLES Final Result Performing Organization Address City/[facility]/ZIP Co de Phone Number [facility] [address] [place] [address] * MUMPS ANTIBODY IGG (10/05/2023 9:32 EDT) Mumps Antibody IgG Positive See Note 10/06/2023 11:10 EDT [facility] Comment:Presence of detectab le mumps virus IgG antibodies. Blood VENOUS BLOOD / Unknown 10/05/2023 9:32 EDT 10/05/2023 19:26 EDT us Provider Outr Resulting Lab IMMUNOLOGY AND SEROL OGY ORDERABLES Final Result Performing Organization Address [facility] Co de Phone Number [facility] [address] [place] [address] * RUBELLA IGG ANTIBODY (10/05/2023 9:32 EDT) Rubella IgG Ab Positive See Note 10/06/2023 11:11 EDT [facility] Comment:Positive for IgG ant ibodies to Rubella virus. Blood VENOUS BLOOD / Unknown 10/05/2023 9:32 EDT 10/05/2023 19:26 EDT us Provider Outr Resulting Lab CHEMISTRY & BLOOD GA S ORDERABLES Final Result Performing Organization Address City/[facility]/ZIP Co de Phone Number [facility] [address] [place] [address] documented in this encounter Visit Diagnoses Not on filedocumented in this encounter Care Teams Well Drill Operator Rotary Drill Relationship Specialty Start Date End Date Genet Sauer MD [address] [place] [id number] PCP - General 09/19/12 documented as of this encounter
--- OUTSIDE RECORDS SUMMARY | 2024-04-23 18:40 | XMS_ITS | Encounter Summary ---
Author Organization [facility] Address [address] [place] [address] Care Team Providers Care Plc Technician Name Role Phone Genet Sauer MD Primary Care Provider [phone] Encounter Details Date Type Department Care Team (Late st Contact Info) Description 04/23/2024 Lab Requisition [facility] Pathology & Laboratory Medicine - [address] [address] Outr Resulting Lab, Provider Social History Tobacco [...] as of this encounter Plan of Treatment Scheduled Orders Name Type Priority Associated Diagnoses Orde r Schedule FECAL BACTERIAL PATHOGENS BY PCR Microbiology Routine Ordered: 2024 documented as of this encounter Visit Diagnoses Not on filedocumented in this encounter Care Teams Plc Technician Relationship Specialty Start Date End Date Genet Sauer MD [address] [place] [address] PCP - General 09/19/12 documented as of this encounter
--- OUTSIDE RECORDS SUMMARY | 2024-04-23 18:40 | XMS_ITS | Encounter Summary ---
Author Organization [facility] [place] [address] Care Team Providers Care Technology Sales Specialist Name Role Phone Genet Sauer MD Primary Care Provider [phone] Encounter Details Date Type Department Care Team (Late st Contact Info) Description 06/14/2013 External Results XRay at [address] [place] [address] Provider, Scanning Social History Tobacco Use Types [...] 4:00 PM EDT Office Visit Pulmonology at [facility] [place] [address] Kira Thayer MD [facility] [place] [address] documented as of this encounter Procedures Procedure [...] on filedocumented in this encounter Care Teams Technology Sales Specialist Relationship Specialty Start Date End Date Genet Sauer MD [facility] [address] [place] [address] [place] [address] PCP - General 09/11/12 06/18/13 documented as of this encounter
--- OUTSIDE RECORDS SUMMARY | 2024-04-23 18:40 | XMS_ITS | Encounter Summary ---
Author Organization [facility] [place] [address] Care Team Providers Care Truss Designer Name Role Phone Jessie Dover RYLAND Primary Care Provider [phone] Encounter Details Date Type Department Care Team (Late st Contact Info) Description 07/18/2014 [place] [address] Saad Chang Jr., MD [facility] [place] [address] Social History Tobacco Use Types Packs/Day Years [...] 4:00 PM EDT [place] [address] [facility] [place] [address] documented as of this encounter Procedures Procedure [...] on filedocumented in this encounter Care Teams Truss Designer Relationship Specialty Start Date End Date Jessie Dover APRN PCP - General 06/19/13 08/29/18 documented as of this encounter
--- OUTSIDE RECORDS SUMMARY | 2024-04-23 18:40 | XMS_ITS | Referral Summary ---
Author Organization [facility] Address [address] [place] [address] Care Team Providers Care Junior Electrical Engineer Name Role Phone Genet Sauer MD Primary Care Provider [phone] Encounters Date Type Department Care Team Description 04/23/2024 Lab Requisition [facility] Pathology & Laboratory [address] [address] Outr Resulting Lab, Provider 03/29/2024 Lab Requisition [facility] Pathology & Laboratory [facility] [address] [place] [address] Outr Resulting Lab, Provider from Last 3 [...] 8.2 See Note ng/mL 03/30/2024 13:03 EST [facility] Comment: NOTE: Tacrolimus Therapeutic Range: 3-12 ng/mL (The goal level is based on clinical context). Assayed utilizing Mahmood Chemiluminescent technology. ??Values obtained using different assay methods cannot be used interchangeably. Blood VENOUS BLOOD / Unknown 03/29/2024 7:15 EST 03/29/2024 17:17 EST us Provider Outr Resulting Lab CHEMISTRY & BLOOD GA S ORDERABLES Final Result [facility] [address] [place] [address] from Last 3 Months Insurance MEDICARE [employer] [place] Care Teams Junior Electrical Engineer Relationship Specialty Start Date End Date Genet Sauer MD [address] [place] [address] PCP - General 09/19/12
--- OUTSIDE RECORDS SUMMARY | 2024-04-23 18:40 | XMS_ITS | Encounter Summary ---
[place] [address] Care Team Providers Care Hoop Punch Operator Helper Name Role Phone Genet Sauer MD Primary Care Provider [phone] Encounter Details Date Type Department Care Team (Latest Contact Info) Description 01/09/2013 8:53 AM EDT - 01/09/2013 11:59 PM EDT Hospital En[place] [phone] Genet Sauer MD [address] [place] [address] [address] [place] [id number] Discharge Disposition: Home Social History Tobacco Use [...] PM EDT Office [place] [address] Kira Thayer MD [facility] [place] [address] documented as of this encounter Procedures Procedure [...] Mid-thigh) Technique Procedure: Following IV injection of 94-dygsuo-7-deoxyglucose (FDG) and a standard uptake period, a [...] you for referring this patient to the [facility] PET Center Procedure Note Ammon Shea MD - 01/09/2013 Examination PET/CT STANDARD (Skull base to Mid-thigh) Technique Procedure: Following IV injection of 40-ooeggg-8-deoxyglucose (FDG) and a standard uptake period, a [...] you for referring this patient to the [facility] PET Center Genet Sauer MD IMG PET ORDERABLES * POCT Glucose (01/09/2013 9:12 AM EDT) Glucose, POC 90 60 - 199 mg/dL [facility] Comment: Supplemental ranges: <110 mg/dL before [...] mg documented in this encounter Care Teams Hoop Punch Operator Helper Relationship Specialty Start Date End Date Genet Sauer MD [facility] [address] [place] [address] [place] [address] PCP - General 09/11/12 06/18/13 documented as of this encounter
--- OUTSIDE RECORDS SUMMARY | 2024-04-23 18:40 | XMS_ITS | Encounter Summary ---
Author Organization [facility] [place] [address] Care Team Providers Care Pre Sales Technical Engineer Name Role Phone Genet Sauer MD Primary Care Provider [phone] Encounter Details Date Type Department Care Team (Late st Contact Info) Description 06/01/2013 Orders [place] [address] Joao Interiano MD Social History Tobacco Use [...] EDT Office [place] [address] Kira Thayer MD [facility] [place] [address] Pending Results Name Type Priority Associated Diagnoses Date /Time Film Library- Storage only CT Chest Imaging Routine 06/01/2013 4:13 PM EST documented as of this encounter Visit Diagnoses Not on filedocumented in this encounter Care Teams Pre Sales Technical Engineer Relationship Specialty Start Date End Date Genet Sauer MD HOSPITALIST [facility] [address] [place] [address] [place] [address] PCP - General 09/11/12 06/18/13 documented as of this encounter
--- OUTSIDE RECORDS SUMMARY | 2024-04-23 18:40 | XMS_ITS | Encounter Summary ---
[place] [address] Care Team Providers Care Deckhand Fishing Vessel Name Role Phone Cathy Wu RYLAND Primary Care Provider [phone] Reason for Visit * Reason Comments Rash Encounter Details Date Type Department Care Team (Late st Contact Info) Description 08/27/2011 3:30 PM EDT Office Visit Dermatology [address] [place] [address] [address] [place] [address] Deven Payan MD [address], [place] [address] Pruritus (Primary Dx) Social History Tobacco Use [...] house has no itching. She works at [employer] in [employer] services, and she states there is a [...] 4:00 PM EDT Office [place] [address] Kira Thayer MD [facility] [address] [place] [address] documented as of this encounter Visit Diagnoses Diagnosis Pruritus- Primary Unspecified pruritic disorder documented in this encounter Care Teams Deckhand Fishing Vessel Relationship Specialty Start Date End Date Cathy Wu APRN PCP - General 08/27/11 09/10/12 documented as of this encounter
--- OUTSIDE RECORDS SUMMARY | 2024-04-23 18:40 | XMS_ITS | Encounter Summary ---
Author Organization [facility] [place] [address] Care Team Providers Care Phlebotomy Support Tech Name Role Phone Cathy Wu RYLAND Primary Care Provider [phone] Encounter Details Date Type Department Care Team (Late st Contact Info) Description 08/25/2012 Orders [place] [phone] Jennifer Burroughs APRN [facility] [place] [address] Social History Tobacco Use Types Packs/Day Years [...] 4:00 PM EDT Office [place] [address] Kira Thayer MD [facility] [place] [address] documented as of this encounter Procedures Procedure [...] on filedocumented in this encounter Care Teams Phlebotomy Support Tech Relationship Specialty Start Date End Date Cathy Wu APRN PCP - General 08/27/11 09/10/12 documented as of this encounter
--- OUTSIDE RECORDS SUMMARY | 2024-04-23 18:40 | XMS_ITS | Encounter Summary ---
Author Organization [facility] [place] [address] Care Team Providers Care Ecommerce Project Manager Name Role Phone Cathy Wu RYLAND Primary Care Provider [phone] Encounter Details Date Type Department Care Team (Late st Contact Info) Description 08/21/2012 Orders [place] [phone] Jennifer Burroughs APRN [facility] GASTROENTEROLOGY DEPT. [place], [place] [id number] Social History Tobacco Use Types Packs/Day Years [...] 4:00 PM EDT [place] [address] Kira Thayer MD [facility] [place] [address] documented as of this encounter Procedures Procedure [...] on filedocumented in this encounter Care Teams Ecommerce Project Manager Relationship Specialty Start Date End Date Cathy Wu APRN PCP - General 08/27/11 09/10/12 documented as of this encounter
--- OUTSIDE RECORDS SUMMARY | 2024-04-23 18:40 | XMS_ITS | Encounter Summary ---
Author Organization [facility] [place] [address] Care Team Providers Care Filtration Operator Name Role Phone Genet Sauer MD Primary Care Provider [phone] Reason for Visit * Reason Comments Follow-up Encounter Details Date Type Department Care Team (Late st Contact Info) Description 10/09/2012 10:00 AM EDT Follow-[place] [address] Jennifer Burroughs APRN [facility] DR 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 [employer] OUTSIDE TESTIN08/10/2011 tprot 6.7, alb 4.0, [...] 4:00 PM EDT [place] [address] Kira Thayer MD [facility] [place] [address] documented as of this encounter Visit Diagnoses Diagnosis Elevated liver function tests- Primary Other abnormal blood chemistry documented in this encounter Care Teams Filtration Operator Relationship Specialty Start Date End Date Genet Sauer MD HOSPITALIST SERVICES [address] [place] [address] [place] [address] PCP - General 09/11/12 06/18/13 documented as of this encounter
--- OUTSIDE RECORDS SUMMARY | 2024-04-23 18:40 | XMS_ITS | Encounter Summary ---
Author Organization [facility] [place] [address] Care Team Providers Care Director Life Sciences Name Role Phone Cathy Wu RYLAND Primary Care Provider [phone] Encounter Details Date Type Department Care Team (Late st Contact Info) Description 08/21/2012 Orders [place] [address] Jennifer Burroughs APRN [facility] GASTROENTEROLOGY DEPT. [place], [place] [phone] Social History Tobacco Use Types Packs/Day Years [...] 4:00 PM EDT Office [place] [address] Kira Thayer MD [facility] [place] [address] documented as of this encounter Procedures Procedure [...] Burroughs APRN [employer] FILM LIBRARY ORD ERABLES [facility] [address] [facility] [address] documented in this encounter Visit Diagnoses Not on filedocumented in this encounter Care Teams Director Life Sciences Relationship Specialty Start Date End Date Cathy Wu APRN PCP - General 08/27/11 09/10/12 documented as of this encounter
--- OUTSIDE RECORDS SUMMARY | 2024-04-23 18:40 | XMS_ITS | Encounter Summary ---
[place] [address] Care Team Providers Care Milk Runner Name Role Phone JazzmineBonniegus Sapp APRN Primary Care Provider [phone] Encounter Details Date Type Department Care Team (Latest Contact Info) Description 08/21/2014 7:26 AM EDT - 08/21/2014 11:59 PM EDT Hospital [place] [address] Recurrent nephrolithiasis Social History Tobacco Use Types [...] 4:00 PM EDT [place] [address] Kira Thayer MD [facility] [place] [address] documented as of this encounter Procedures Procedure [...] kidney documented in this encounter Care Teams Milk Runner Relationship Specialty Start Date End Date Jessie Dover APRN PCP - General 06/19/13 08/29/18 documented as of this encounter
--- OUTSIDE RECORDS SUMMARY | 2024-04-23 18:40 | XMS_ITS | Encounter Summary ---
Author Organization [place] [address] Care Team Providers Care Shirt Turner Name Role Phone Belkys Bundy DO Primary Care Provider [phone] Encounter Details Date Type Department Care Team (Late st Contact Info) Description 01/01/2009 [place] [address] Macie Carreon MD DERMATOLOGY Social History Tobacco [...] 4:00 PM EDT Office [place] [address] Kira Thayer MD [facility] [place] [address] documented as of this encounter Procedures Procedure Name Priority Date/Time Associated Diagnosis Comments SURGICAL PATHOLOGY REPORT Routine 01/01/2009 3:08 PM EDT documented in this encounter Results * Surgical Pathology Report (01/01/2009 3:08 PM EDT) Surgical Pathology Report [id number] ? Location: 4M The signing pathologist has [...] report in rendering the final pathologic diagnosis. [facility] 01/01/2009 3:08 PM EDT Macie Carreon MD PATHOLOGY/CYTOLOG Y ORDERABLES Performing Organization Address City/State/[place] Phone Number [facility] documented in this encounter Visit Diagnoses Not on filedocumented in this encounter Care Teams Shirt Turner Relationship Specialty Start Date End Date Belkys Bundy DO [address] [facility] [place] [address] PCP - General Family Medicine 03/21/19 documented as of this encounter
--- OUTSIDE RECORDS SUMMARY | 2024-04-23 18:40 | XMS_ITS | Encounter Summary ---
Author Organization Health system Address [address] [place] [address] Care Team Providers Care Sales Coordinator Name Role Phone Genet Sauer MD Primary Care Provider [phone] Encounter Details Date Type Department Care Team (Late st Contact Info) Description 08/07/2022 Lab Requisition [facility] Pathology & Laboratory Medicine - [address] [address] Outr Resulting Lab, Provider Social History Tobacco [...] Salmonella PCR Unresolved Negative 08/09/2022 11:46 EDT [facility] Comment:An UNRESOLVED or IND ETERMINATE [...] E. coli Unresolved Negative 08/09/2022 11:46 T [facility] Comment:An UNRESOLVED or IND ETERMINATE [...] CAMPYLOBACTER PCR Unresolved Negative 08/09/2022 11:46 EDT [facility] Comment:An UNRESOLVED or IND ETERMINATE [...] Shiga Toxin PCR Unresolved Negative 11:46 T [facility] Comment:An UNRESOLVED or IND ETERMINATE [...] MICROBIOLOGY - GENER AL ORDERABLES Final Result [facility] [address] [place] [address] documented in this encounter Visit Diagnoses Not on filedocumented in this encounter Care Teams Sales Coordinator Relationship Specialty Start Date End Date Genet Sauer MD [address] [place] [address] PCP - General 09/19/12 documented as of this encounter
--- OUTSIDE RECORDS SUMMARY | 2024-04-23 18:40 | XMS_ITS | Encounter Summary ---
Author Organization [facility] [place] [address] Care Team Providers Care Director Of Retail Analytics Name Role Phone Genet Sauer MD Primary Care Provider [phone] Encounter Details Date Type Department Care Team (Late st Contact Info) Description 01/12/2010 [place] [address] Joao Interiano MD Social History Tobacco Use [...] 4:00 PM EDT [place] [address] Kira Thayer MD [facility] [place] [address] Pending Results Name Type Priority Associated Diagnoses Date /Time Film Library- Storage only DX Chest Imaging Routine 01/12/2010 4:51 PM EDT documented as of this encounter Visit Diagnoses Not on filedocumented in this encounter Care Teams Director Of Retail Analytics Relationship Specialty Start Date End Date Genet Sauer MD HOSPITALIST SERVICES [address] [place] [address] [address] [place] [id number] PCP - General 09/11/12 06/18/13 documented as of this encounter
--- OUTSIDE RECORDS SUMMARY | 2024-04-23 18:40 | XMS_ITS | Encounter Summary ---
Author Organization [facility] [place] [address] Care Team Providers Care Project Landscape Architect Name Role Phone Genet [place] MD Primary Care Provider [phone] Encounter Details Date Type Department Care Team (Latest Contact Info) Description 02/18/2011 2:59 PM EST - 02/18/2011 11:59 PM EST Hospital [place] [address] CLINIC, Genet Espino MD [address] [place] [address] [address] [place] [phone] Discharge Disposition: Home Social History Tobacco Use [...] Sanchez AGE: 40 y.o. : 1970 (home) [phone] (work) Female PCP CARD TAPE CONVERTER OPERATOR Genet DAVILA MD DATE OF CALL: 02/16/11 [...] HR. BEFORE SCHEDULED SCAN AND HAVE A SURGICAL CODER AVAILABLE. PT STATED TO LOCAL DRIVER THAT THE SEDATION WAS EFFECTIVE FOR SCAN: Y N documented in this encounter Miscellaneous Notes * Miscellaneous - Provider, Scanning - 03/02/2011 9:12 AM EST documented in this encounter Plan of Treatment Upcoming Encounters Date Type Department Care Team (Late st Contact Info) Description 08/27/2024 4:00 PM EDT Office [place] [address] Kira Thayer MD [facility] [place] [address] documented as of this encounter Visit Diagnoses [...] mg documented in this encounter Care Teams Project Landscape Architect Relationship Specialty Start Date End Date Genet Davila MD HOSPITALIST SERVICES [address] [place] [address] [place] [address] PCP - General 03/03/10 08/26/11 documented as of this encounter
--- OUTSIDE RECORDS SUMMARY | 2024-04-23 18:40 | XMS_ITS | Encounter Summary ---
Author Organization [facility] Address [address] [place] [address] Care Team Providers Care Finance And Administration Manager Name Role Phone Genet Sauer MD Primary Care Provider [phone] Encounter Details Date Type Department Care Team (Late st Contact Info) Description 06/30/2022 Lab Requisition [facility] Pathology & Laboratory Medicine - [address] [address] Karuna Santana, DO [address] [facility] [address] [address] [place], [place] [phone] Encounter for other general examination Social History [...] management options, if applicable. 07/06/2022 16:22 EDT [facility] Final Diagnosis A. SOFT TISSUE, ? LIPOMA? , SITE NOT FURTHER SPECIFIED, EXCISION: - Mature adipose tissue, consistent with lipoma. - Focal fibrous and fibrovascular tissue with no specific pathologic features. 07/06/2022 16:22 [facility] Attestation There was significant resident/fellow involvement in the diagnostic evaluation of this case. By the signature below, the attending physician certifies that they have personally conducted a gross and/or microscopic examination of the described specimens and rendered or confirmed the above diagnosis. 07/06/2022 16:22 [facility] at 1622 Clinical History Lipoma 07/06/2022 16:22 [facility] Gross Description A. Received [...] fibrous connective tissue without hemorrhage or necrosis. Supervisor Food Checkers And Cashiers sections are submitted in A1 and A2. HEATHER DELVALLE([facility]) 06/30/2022 8:40 07/06/2022 16:22 [facility] Resident/Alec w: Enrrique Muñiz MD 07/06/2022 16:22 T [facility] Performing Lab [facility] 07/06/2022 16:22 T [facility] Scanned Images 07/06/2022 16:22 [facility] Tissue SOFT TISSUE / Unknown 06/29/2022 10:05 EDT 06/30/2022 8:24 EDT us Karuna Satnana DO PATHOLOGY ORDERABLES Final Re sult [facility] [address] [place] [address] documented in this encounter Visit Diagnoses Diagnosis Encounter for other general examination documented in this encounter Care Teams Finance And Administration Manager Relationship Specialty Start Date End Date Genet Sauer MD [address] [place] [address] PCP - General 09/19/12 documented as of this encounter
--- OUTSIDE RECORDS SUMMARY | 2024-04-23 18:40 | XMS_ITS | Encounter Summary ---
Author Organization [facility] [place] [address] Care Team Providers Care Rotary Engine Assembler Name Role Phone Genet Sauer MD Primary Care Provider [phone] Encounter Details Date Type Department Care Team (Late st Contact Info) Description 06/07/2012 [place] [address] Joao Interiano MD Social History Tobacco Use [...] 4:00 PM EDT [place] [address] Kira Thayer MD [facility] [place] [address] Pending Results Name Type Priority Associated Diagnoses Date /Time Film Library- Storage only DX Chest Imaging Routine 06/07/2012 4:19 PM EST documented as of this encounter Visit Diagnoses Not on filedocumented in this encounter Care Teams Rotary Engine Assembler Relationship Specialty Start Date End Date Genet Sauer MD HOSPITALIST SERVICES [address] [place] [address] [place] [address] PCP - General 09/11/12 06/18/13 documented as of this encounter
--- OUTSIDE RECORDS SUMMARY | 2024-04-23 18:40 | XMS_ITS | Encounter Summary ---
Author Organization [facility] [place] [address] Care Team Providers Care Leaf Stripper Name Role Phone Genet Sauer MD Primary Care Provider [phone] Encounter Details Date Type Department Care Team (Late st Contact Info) Description 12/31/2012 Orders [place] [address] Joao Interiano MD Social History Tobacco Use [...] 4:00 PM EDT [place] [address] Kira Thayer MD [facility] [place] [address] Pending Results Name Type Priority Associated Diagnoses Date /Time Film Library- Storage only DX Chest Imaging Routine 12/31/2012 4:17 PM EDT documented as of this encounter Visit Diagnoses Not on filedocumented in this encounter Care Teams Leaf Stripper Relationship Specialty Start Date End Date Genet Sauer MD HOSPITALIST SERVICES [address] [place] [address] [place] [address] PCP - General 09/11/12 06/18/13 documented as of this encounter
--- OUTSIDE RECORDS SUMMARY | 2024-04-23 18:40 | XMS_ITS | Encounter Summary ---
Author Organization [place] [address] Care Team Providers Care Poising Inspector Name Role Phone Jessie Dover RYLAND Primary Care Provider [phone] Encounter Details Date Type Department Care Team (Late st Contact Info) Description 08/13/2014 [place] [address] Saad Chang Jr., MD [facility] [place] [address] Social History Tobacco Use Types Packs/Day Years [...] 4:00 PM EDT [place] [address] Kira Thayer MD [facility] [place] [address] documented as of this encounter Visit Diagnoses Not on filedocumented in this encounter Care Teams Poising Inspector Relationship Specialty Start Date End Date Jsesie Dover APRN PCP - General 06/19/13 08/29/18 documented as of this encounter
--- OUTSIDE RECORDS SUMMARY | 2024-04-23 18:40 | XMS_ITS | Encounter Summary ---
Author Organization [facility] [place] [address] Care Team Providers Care Refinery Operator Vapor Recovery Unit Name Role Phone Genet Sauer MD Primary Care Provider [phone] Encounter Details Date Type Department Care Team (Late st Contact Info) Description 01/02/2013 Orders Only [place] [address] Sammie Johnson MD [facility] [place] [address] Social History Tobacco Use Types Packs/Day Years [...] 4:00 PM EDT Office [place] [address] Kira Thayer MD [facility] [place] [address] documented as of this encounter Procedures Procedure [...] MD IMG FILM LIBRARY ORD ERABLES [facility] [address] [place] [address] documented in this encounter Visit Diagnoses Not on filedocumented in this encounter Care Teams Refinery Operator Vapor Recovery Unit Relationship Specialty Start Date End Date Genet Sauer MD HOSPITALIST SERVICES [address] [place] [address] [place] [address] PCP - General 09/11/12 06/18/13 documented as of this encounter
--- OUTSIDE RECORDS SUMMARY | 2024-04-23 18:40 | XMS_ITS | Encounter Summary ---
Author Organization [facility] [place] [address] Care Team Providers Care Financial Sales Representative Name Role Phone Belkys Bundy DO Primary Care Provider [phone] Encounter Details Date Type Department Care Team (Late st Contact Info) Description 12/26/2008 [place] [address] Macie Carreon MD DERMATOLOGY Social History Tobacco [...] 4:00 PM EDT Office [place] [address] Kira Thayer MD [facility] [place] [address] documented as of this encounter Procedures Procedure Name Priority Date/Time Associated Diagnosis Comments SURGICAL PATHOLOGY REPORT Routine 12/26/2008 3:03 PM EDT documented in this encounter Results * Surgical Pathology Report (12/26/2008 3:03 PM EDT) Pathologist [facility] Surgical Pathology Report [id number] ? Location: 4M The signing pathologist has (i) examined the relevant preparation(s) for the specimen(s) and (ii) rendered or confirmed the diagnosis(es). . ?Pathology Surgical Pathology Final Report Clinical Information Specimen Submitted: A - Central upper back, Re-excision - Not Oriented (1): Clinical History: See previous path [id number] Clinical Diagnosis: Scar vs residual Gross Description [...] MD PATHOLOGY/CYTOLOG Y ORDERABLES Performing Organization Address City/State/[facility] Co de Phone Number [facility] documented in this encounter Visit Diagnoses Not on filedocumented in this encounter Care Teams Financial Sales Representative Relationship Specialty Start Date End Date Belkys Bundy DO [address] [facility] [place] [address] PCP - General Family Medicine 03/21/19 documented as of this encounter
--- OUTSIDE RECORDS SUMMARY | 2024-04-23 18:40 | XMS_ITS | Encounter Summary ---
Author Organization [facility]ly [facility] [place] [address] Care Team Providers Care Lumber Cutter Name Role Phone Belkys Bundy DO Primary Care Provider [phone] Encounter Details Date Type Department Care Team (Late st Contact Info) Description 12/11/2008 [place] [address] Macie Carreon MD DERMATOLOGY Social History Tobacco [...] 4:00 PM EDT [place] [address] Kira Thayer MD [facility] [place] [address] documented as of this encounter Procedures Procedure Name Priority Date/Time Associated Diagnosis Comments SURGICAL PATHOLOGY REPORT Routine 12/11/2008 3:44 PM EDT documented in this encounter Results * Surgical Pathology Report (12/11/2008 3:44 PM EDT) Pathologist [facility] Surgical Pathology Report [id number] ? Location: 4M The signing pathologist has [...] MD PATHOLOGY/CYTOLOG Y ORDERABLES Performing Organization Address City/State/[facility] Co de Phone Number NICHOLAS GREENBERG documented in this encounter Visit Diagnoses Not on filedocumented in this encounter Care Teams Lumber Cutter Relationship Specialty Start Date End Date Belkys Bundy DO [address] [facility] [address] [place] [address] PCP - General Family Medicine 03/21/19 documented as of this encounter
--- OUTSIDE RECORDS SUMMARY | 2024-04-23 18:40 | XMS_ITS | Encounter Summary ---
Author Organization [facility] Address [address] [place] [address] Care Team Providers Care Electrical Contractor Name Role Phone Genet Sauer MD Primary Care Provider [phone] Encounter Details Date Type Department Care Team (Late st Contact Info) Description 12/06/[address] [facility] Pathology & Laboratory Medicine - [address] [address] Outr Resulting Lab, Provider Social History Tobacco [...] ANCA Interpretation Negative Negative 12/08/2020 15:59 EDT [facility] Comment: No titer performed, ANCA Screen is negative. Results were obtained with the INOVA NOVA Lite ANCA kit by indirect immunofluorescence. Blood VENOUS BLOOD / Unknown 12/05/2020 12:00 EDT 12/07/2020 16:08 EDT us Provider Outr Resulting Lab IMMUNOLOGY AND SEROL OGY ORDERABLES Final Result [facility] [address] [place] [address] documented in this encounter Visit Diagnoses Not on filedocumented in this encounter Care Teams Electrical Contractor Relationship Specialty Start Date End Date Genet Sauer MD [address] [place] [address] PCP - General 09/19/12 documented as of this encounter
--- OUTSIDE RECORDS SUMMARY | 2024-04-23 18:40 | XMS_ITS | Encounter Summary ---
Author Organization [facility] [place] [address] Care Team Providers Care Dredge Worker Name Role Phone Genet Sauer MD Primary Care Provider [phone] Reason for Visit * Reason Comments GI Problem Encounter Details Date Type Department Care Team (Late st Contact Info) Description 09/11/2012 2:30 PM EDT Office [place] [address] Jennifer Burroughs APRN [facility] DR 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 [...] 4:00 PM EDT Office [place] [address] Kira Thayer MD [facility] [place] [address] documented as of this encounter Procedures Procedure Name Priority Date/Time Associated Diagnosis Comments .A1AT GENOTYPE Routine 09/11/2012 3:46 PM EDT Elevated liver function tests A1AT GENOTYPE PROFILE Routine 09/11/2012 3:46 PM EDT Elevated liver function tests DIFFERENTIAL, AUTOMATED Routine 09/11/2012 3:46 PM EDT IRON AND TIBC Routine 09/11/2012 3:46 PM EDT Elevated liver function tests [id number] Routine 09/11/2012 3 :46 PM EDT Elevated [...] resulting in the S phenotype ([id number].[id number] A>T; [id number]) and the Z phenotype (c. 1096G>A; [id number]) are amplified and genotyped by two separate [...] determined by the Molecular Pathology Laboratory at [facility]. This test is used for clinical purposes [...] MD CHEMISTRY ORDERABLE S Performing Organization Address [facility]/ZIP Co de Phone Number CERNER MILLENNIUM [...] MD IMMUNOLOGY ORDERABL ES Performing Organization Address [facility] Co de Phone Number [facility] * A1AT Serum Concentration (09/11/2012 3:46 PM EDT) A1AT 146 100 - 190 mg/dL [facility] Comment: Test Performed by: [facility] [place] [address] Form Press Operator: Celeste Stockton, Ph.D. Blood specimen (specimen) 09/11/2012 3:46 PM EDT 09/12/2012 7:30 AM EDT Narrative Resulting Agency Comment Spec In Lab Amadeo Rivera MD CHEMISTRY ORDERABLE S Performing Organization Address [facility] Co de Phone Number [facility] * Iron and TIBC (09/11/2012 3:46 PM EDT) Iron 77 30 - 150 mcg/dL [facility] MILLENNIUM TIBC 302 250 - 450 mcg/dL [facility] MILLENNIUM Iron Saturation 25 20 - 50 % [facility] MILLENNIUM Blood specimen (specimen) 09/11/2012 3:46 PM EDT 09/11/2012 3:54 PM EDT Narrative Resulting Agency Comment Spec In Lab Amadeo Rivera MD CHEMISTRY ORDERABLE S Performing Organization Address [facility] Co de Phone Number CERNER MILLENNIUM * Ferritin (09/11/2012 3:46 PM EDT) Ferritin 39 15 - 150 ng/mL CERNER MILLENNIUM Comment: Pediatric reference ranges not verified at [facility], interpret with caution. Reference ranges for females greater than 50 years of age approach values for men, i.e., 30-400 ng/mL. Blood specimen (specimen) 09/11/2012 3:46 PM EDT 09/11/2012 3:54 PM EDT Narrative Resulting Agency Comment Spec In Lab Amadeo Rivera MD CHEMISTRY ORDERABLE S Performing Organization Address [facility] Co de Phone Number [facility] * GISSELLE (09/11/2012 3:46 PM EDT) GISSELLE Neg Neg [facility] Blood specimen (specimen) 09/11/2012 3:46 PM EDT 09/12/2012 8:09 AM EDT Narrative Resulting Agency Comment Spec In Lab Amadeo Rivera MD LAB SEND OUT ORDERA BLES Performing Organization Address [facility] de Phone Number [facility] * Smooth Muscle Antibody (09/11/2012 3:46 PM EDT) Sm Muscle Ab (AUGUST) Negative Negative [facility] Comment: Test Performed by: [place] [address] Form Press Operator: Ambrose Moreno III, M.D. Blood specimen (specimen) 09/11/2012 3:46 PM EDT 09/12/2012 7:25 AM EDT Narrative Resulting Agency Comment Spec In Lab Amadeo Rivera MD LAB SEND OUT ORDERA BLES Performing Organization Address [facility] de Phone Number [facility] * Mitochondrial Antibody, M2 (09/11/2012 3:46 PM EDT) Mitochon Ab (AUGUST) <0.1 <0.1 (Negative) U [facility] Comment: Test Performed by: [place] [address] Form Press Operator: Ambrose Moreno III, M.D. Blood specimen (specimen) [...] MD CHEMISTRY ORDERABLE S Performing Organization Address [facility]/ZIP Co de Phone Number N[facility]OLAS MORRISONI[facility] * (ABNORMAL) IgG (09/11/2012 3:46 PM EDT) Immunoglobulin G 688(L) 700 - 1,600 mg/dL [facility] Blood specimen (specimen) 09/11/2012 3:46 PM EDT 09/11/2012 3:54 PM EDT Narrative Resulting Agency Comment Spec In Lab Amadeo Rivera MD CHEMISTRY ORDERABLE S Performing Organization Address [facility] Co de Phone Number NICHOLAS GUILLERMOENNIUM * IgM (09/11/2012 3:46 PM EDT) IgM 59 40 - 230 mg/dL [facility] Blood specimen (specimen) 09/11/2012 3:46 PM EDT 09/11/2012 3:54 PM EDT Narrative Resulting Agency Comment Spec In Lab Amadeo Rivera MD CHEMISTRY ORDERABLE S [facility] * Ceruloplasmin (09/11/2012 3:46 PM EDT) Ceruloplasmin 25.0 16.0 - 45.0 mg/dL [facility] MILL[facility]NI[facility] Comment: Test Performed by: [facility] [address] [address] Form Press Operator: Celeste Stockton, Ph.D. Blood specimen (specimen) 09/11/2012 3:46 PM EDT 09/12/2012 7:30 AM EDT Narrative Resulting Agency Comment Spec In Lab Amadeo Rivera MD CHEMISTRY ORDERABLE S Performing Organization Address City/[facility]/ZIP Co de Phone Number CERNER MILLENNIUM [...] MD CHEMISTRY ORDERABLE S Performing Organization Address [facility]/ZIP Co de Phone Number CERNER MILLENNIUM [...] MD CHEMISTRY ORDERABLE S Performing Organization Address [facility] de Phone Number [facility] * Hepatitis B Surface Antigen (09/11/2012 3:46 PM EDT) Hepatitis B Surface Antigen Negative Negative [facility] Blood specimen (specimen) 09/11/2012 3:46 PM EDT 09/11/2012 3:54 PM EDT Narrative Resulting Agency Comment Spec In Lab Amadeo Rivera MD CHEMISTRY ORDERABLE S Performing Organization Address [facility] Co de Phone Number [facility] documented in this encounter Visit Diagnoses Diagnosis Elevated liver function tests- Primary Other abnormal blood chemistry documented in this encounter Care Teams Dredge Worker Relationship Specialty Start Date End Date Genet Sauer MD [facility] [address] [place] [address] [place] [address] PCP - General 09/11/12 06/18/13 documented as of this encounter
--- OUTSIDE RECORDS SUMMARY | 2024-04-23 18:40 | XMS_ITS | Encounter Summary ---
Author Organization [facility] [place] [address] Care Team Providers Care Community Service Manager Name Role Phone Genet Sauer MD Primary Care Provider [phone] Encounter Details Date Type Department Care Team (Late st Contact Info) Description 11/11/2010 Orders [place] [address] Joao Interiano MD Social History Tobacco Use [...] 4:00 PM EDT Office [place] [address] Kira Thayer MD [facility] PULMONARY [place] [address] Pending Results Name Type Priority Associated Diagnoses Date /Time Film Library- Storage only DX Chest Imaging Routine 11/11/2010 4:36 PM EDT documented as of this encounter Visit Diagnoses Not on filedocumented in this encounter Care Teams Community Service Manager Relationship Specialty Start Date End Date Genet Sauer MD [facility] [address] [place] [address] [address] [place] [id number] PCP - General 09/11/12 06/18/13 documented as of this encounter
--- OUTSIDE RECORDS SUMMARY | 2024-04-23 18:40 | XMS_ITS | Encounter Summary ---
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
--- OUTSIDE RECORDS SUMMARY | 2024-04-23 18:40 | XMS_ITS | Encounter Summary ---
Author Organization [facility] [place] [address] Care Team Providers Care Felt Tipping Machine Tender Name Role Phone Genet Sauer MD Primary Care Provider [phone] Encounter Details Date Type Department Care Team (Late st Contact Info) Description 08/12/2011 [place] [address] Joao Interiano MD Social History Tobacco Use [...] 4:00 PM EDT [place] [address] Kira Thayer MD [facility] [place] [address] Pending Results Name Type Priority Associated Diagnoses Date /Time Film Library- Storage only DX Chest Imaging Routine 08/12/2011 4:33 PM EDT documented as of this encounter Visit Diagnoses Not on filedocumented in this encounter Care Teams Felt Tipping Machine Tender Relationship Specialty Start Date End Date Genet Sauer MD [facility] [address] [place] [address] [address] [place] [address] PCP - General 09/11/12 06/18/13 documented as of this encounter
--- OUTSIDE RECORDS SUMMARY | 2024-04-23 18:40 | XMS_ITS | Encounter Summary ---
Author Organization [facility] [place] [address] Care Team Providers Care Conveyor Feeder Offbearer Name Role Phone Jessie Dover RYLAND Primary Care Provider [phone] Encounter Details Date Type Department Care Team (Late st Contact Info) Description 07/11/2014 [place] [address] Saad Chang Jr., MD [facility] [place] [address] Social History Tobacco Use Types Packs/Day Years [...] 4:00 PM EDT [place] [address] Kira Thayer MD [facility] [place] [address] documented as of this encounter Procedures Procedure [...] on filedocumented in this encounter Care Teams Conveyor Feeder Offbearer Relationship Specialty Start Date End Date Jessie Dover APRN PCP - General 06/19/13 08/29/18 documented as of this encounter
--- OUTSIDE RECORDS SUMMARY | 2024-04-23 18:40 | XMS_ITS | Encounter Summary ---
Author Organization [facility] [place] [address] Care Team Providers Care Live Truck Technician Name Role Phone Genet Sauer MD Primary Care Provider [phone] Encounter Details Date Type Department Care Team (Late st Contact Info) Description 08/23/2009 [place] [address] Joao Interiano MD Social History Tobacco Use [...] 4:00 PM EDT [place] [address] Kira Thayer MD [facility] [place] [address] Pending Results Name Type Priority Associated Diagnoses Date /Time Film Library- Storage only DX Chest Imaging Routine 08/23/2009 4:55 PM EDT documented as of this encounter Visit Diagnoses Not on filedocumented in this encounter Care Teams Live Truck Technician Relationship Specialty Start Date End Date Genet Sauer MD [facility] [address] [place] [address] [address] [place] [address] PCP - General 09/11/12 06/18/13 documented as of this encounter
--- OUTSIDE RECORDS SUMMARY | 2024-04-23 18:40 | XMS_ITS | Encounter Summary ---
Author Organization [facility] [place] [address] Care Team Providers Care Surgical Scheduler Name Role Phone Jessie Dover RYLAND Primary Care Provider [phone] Encounter Details Date Type Department Care Team (Late st Contact Info) Description 05/07/2014 Orders [place] [address] Saad Chang Jr., MD [facility] [place] [address] Social History Tobacco Use Types Packs/Day Years [...] 4:00 PM EDT Office [place] [address] Kira Thayer MD [facility] [place] [address] documented as of this encounter Procedures Procedure [...] on filedocumented in this encounter Care Teams Surgical Scheduler Relationship Specialty Start Date End Date Jessie Dover APRN PCP - General 06/19/13 08/29/18 documented as of this encounter
--- OUTSIDE RECORDS SUMMARY | 2024-04-23 18:40 | XMS_ITS | Encounter Summary ---
Author Organization [facility] [place] [address] Care Team Providers Care Acquisitions Assistant Name Role Phone Genet Sauer MD Primary Care Provider [phone] Encounter Details Date Type Department Care Team (Late st Contact Info) Description 10/07/2008 Orders [place] [address] Joao Interiano MD Social History Tobacco Use [...] 4:00 PM EDT Office [place] [address] Kira Thayer MD [facility] [address] Pending Results Name Type Priority Associated Diagnoses Date /Time Film Library- Storage only DX Chest Imaging Routine 10/07/2008 4:58 PM EDT documented as of this encounter Visit Diagnoses Not on filedocumented in this encounter Care Teams Acquisitions Assistant Relationship Specialty Start Date End Date Genet Sauer MD [facility] [address] [place] [address] [place] [address] PCP - General 09/11/12 06/18/13 documented as of this encounter
--- OUTSIDE RECORDS SUMMARY | 2024-04-23 18:40 | XMS_ITS | Encounter Summary ---
Author Organization [facility] [place] [address] Care Team Providers Care Solar Energy Systems Engineer Name Role Phone Cathy Wu RYLAND Primary Care Provider [phone] Encounter Details Date Type Department Care Team (Late st Contact Info) Description 11/28/2011 Orders [place] [address] Jennifer Burroughs APRN [facility] GASTROENTEROLOGY DEPT. [place], [place] [address] Social History Tobacco Use Types Packs/Day Years [...] 4:00 PM EDT Office [place] [address] Kira Thayer MD [facility] [place] [address] documented as of this encounter Procedures Procedure [...] APRN IMSenait FILM LIBRARY ORD ERABLES [facility] [address] [place] [address] documented in this encounter Visit Diagnoses Not on filedocumented in this encounter Care Teams Solar Energy Systems Engineer Relationship Specialty Start Date End Date Cathy Wu APRN PCP - General 08/27/11 09/10/12 documented as of this encounter
--- OUTSIDE RECORDS SUMMARY | 2024-04-23 18:40 | XMS_ITS | Encounter Summary ---
Author Organization [facility] [place] [address] Care Team Providers Care Glue Line Operator Name Role Phone Jessie Dover RYLAND Primary Care Provider [phone] Encounter Details Date Type Department Care Team (Late st Contact Info) Description 05/03/2014 Orders [place] [address] Saad Chang Jr., MD [facility] [place] [address] Social History Tobacco Use Types Packs/Day Years [...] PM EDT Office [place] [address] Kira Thayer MD [facility] [place] [address] documented as of this encounter Procedures Procedure [...] on filedocumented in this encounter Care Teams Glue Line Operator Relationship Specialty Start Date End Date Jessie Dover APRN PCP - General 06/19/13 08/29/18 documented as of this encounter
--- OUTSIDE RECORDS SUMMARY | 2024-04-23 18:40 | XMS_ITS | Encounter Summary ---
Author Organization [facility] [place] [address] Care Team Providers Care Scrum Product Owner Name Role Phone Genet Sauer MD Primary Care Provider [phone] Encounter Details Date Type Department Care Team (Late st Contact Info) Description 01/02/2013 Orders [place] [address] Sammie Johnson MD [facility] [place] [address] Social History Tobacco Use Types Packs/Day Years [...] 4:00 PM EDT Office [place] [address] Kira Thayer MD [facility] [place] [address] documented as of this encounter Procedures Procedure [...] Johnson MD IMG FILM LIBRARY ORD ERABLES [facility] [address] [place] [address] documented in this encounter Visit Diagnoses Not on filedocumented in this encounter Care Teams Scrum Product Owner Relationship Specialty Start Date End Date Genet Sauer MD [facility] [address] [place] [address] [place] [address] PCP - General 09/11/12 06/18/13 documented as of this encounter
--- OUTSIDE RECORDS SUMMARY | 2024-04-23 18:40 | XMS_ITS | Encounter Summary ---
Author Organization [facility] Address [address] [place] [address] Care Team Providers Care Metalizer Field Operation Name Role Phone Genet Sauer MD Primary Care Provider Encounter Details Date Type Department Care Team (Late st Contact Info) Description 04/30/2021 Lab Requisition [facility] Pathology & Laboratory Medicine - [address] [address] Outr Resulting Lab, Provider Social History Tobacco [...] MICROBIOLOGY - GENER AL ORDERABLES Final Result [facility] [address] [place] [address] * COVID-19 TESTING (04/30/2021 9:00 EST) COVID-19 rt-PCR Result Negative Negative 05/01/2021 17:04 EST [facility] Comment: This test has [...] performed using the rubi SARS-CoV-2 assay ([employer] on the Rubi 6800 System Performing Lab Rubi 6800 [facility] Lab 05/01/2021 17:04 EST [facility] Swab 04/30/2021 9:00 EST 04/30/2021 22:14 EST us Provider Outr Resulting Lab MICROBIOLOGY - GENER AL ORDERABLES Final Result [facility] [address] [place] [address] documented in this encounter Visit Diagnoses Not on filedocumented in this encounter Care Teams Metalizer Field Operation Relationship Specialty Start Date End Date Genet Sauer MD [address] [place] [address] PCP - General 09/19/12 documented as of this encounter
--- OUTSIDE RECORDS SUMMARY | 2024-04-23 18:40 | XMS_ITS | Encounter Summary ---
Author Organization [facility] Address [address] [place] [address] Care Team Providers Care Crucible Furnace Tender Name Role Phone Genet Sauer MD Primary Care Provider [phone] Encounter Details Date Type Department Care Team (Late st Contact Info) Description 12/06/2020 Lab Requisition [facility] Pathology & Laboratory Medicine - [address] [address] Outr Resulting Lab, Provider Social History Tobacco [...] 1.7 - 2.8 mg/dL 12/07/2020 16:22 EDT [facility] Blood VENOUS BLOOD / Unknown 12/05/2020 12:00 EDT 12/07/2020 16:08 EDT us Provider Outr Resulting Lab CHEMISTRY & BLOOD GA S ORDERABLES Final Result [facility] [address] [place] [address] documented in this encounter Visit Diagnoses Not on filedocumented in this encounter Care Teams Crucible Furnace Tender Relationship Specialty Start Date End Date Genet Sauer MD [address] [place] [address] PCP - General 09/19/12 documented as of this encounter
--- OUTSIDE RECORDS SUMMARY | 2024-04-23 18:40 | XMS_ITS | Encounter Summary ---
Author Organization [facility] [place] [address] Care Team Providers Care Marking Machine Tender Name Role Phone Genet Sauer MD Primary Care Provider [phone] Encounter Details Date Type Department Care Team (Late st Contact Info) Description 01/04/2013 External Results XRay at [address] [place] [phone] Provider, Scanning Social History Tobacco Use Types [...] Office Visit Pulmonology at [place] [address] Kira Thayer MD [facility] PULMONARY [place] [address] documented as of this encounter Procedures Procedure [...] on filedocumented in this encounter Care Teams Marking Machine Tender Relationship Specialty Start Date End Date Genet Sauer MD [facility] [address] [place] [address] [place] [address] PCP - General 09/11/12 06/18/13 documented as of this encounter
--- OUTSIDE RECORDS SUMMARY | 2024-04-23 18:40 | XMS_ITS | Encounter Summary ---
Author Organization [facility] Address [address] [place] [address] Care Team Providers Care Assignment Agent Name Role Phone Genet Sauer MD Primary Care Provider [phone] Encounter Details Date Type Department Care Team (Late st Contact Info) Description 03/29/2024 Lab Requisition [facility] Pathology & Laboratory Medicine - [address] [address] Outr Resulting Lab, Provider Social History Tobacco [...] 8.2 See Note ng/mL 03/30/2024 13:03 EST [facility] Comment: NOTE: Tacrolimus Therapeutic Range: 3-12 ng/mL (The goal level is based on clinical context). Assayed utilizing [employer] Chemiluminescent technology. ??Values obtained using different assay methods cannot be used interchangeably. Blood VENOUS BLOOD / Unknown 03/29/2024 7:15 EST 03/29/2024 17:17 EST us Provider Outr Resulting Lab CHEMISTRY & BLOOD GA S ORDERABLES Final Result [facility] [address] [place], [place] [phone] documented in this encounter Visit Diagnoses Not on filedocumented in this encounter Care Teams Assignment Agent Relationship Specialty Start Date End Date Genet Sauer MD [address] [place] [address] PCP - General 09/19/12 documented as of this encounter
--- OUTSIDE RECORDS SUMMARY | 2024-04-23 18:40 | XMS_ITS | Encounter Summary ---
Author Organization [facility] [place] [address] Care Team Providers Care Assistant Chief Nursing Officer Name Role Phone Genet Sauer MD Primary Care Provider [phone] Encounter Details Date Type Department Care Team (Late st Contact Info) Description 12/21/2011 Orders [place] [phone] Joao Interiano MD Social History Tobacco Use [...] 4:00 PM EDT Office [place] [address] Kira Thayer MD [facility] PULMONARY MEDICINE [place] [phone] Pending Results Name Type Priority Associated Diagnoses Date /Time Film Library- Storage only DX Abdomen Imaging Routine 12/21/2011 4:31 PM EDT documented as of this encounter Visit Diagnoses Not on filedocumented in this encounter Care Teams Assistant Chief Nursing Officer Relationship Specialty Start Date End Date Genet Sauer MD [facility] [address] [place] [address] PCP - General 09/11/12 06/18/13 documented as of this encounter
--- OUTSIDE RECORDS SUMMARY | 2024-04-23 18:40 | XMS_ITS | Encounter Summary ---
Author Organization [facility] [place] [address] Care Team Providers Care Senior Outside Sales Representative Name Role Phone Genet Sauer MD Primary Care Provider [phone] Encounter Details Date Type Department Care Team (Late st Contact Info) Description 02/03/2012 Orders [place] [phone] Joao Interiano MD Social History Tobacco Use [...] 4:00 PM EDT Office [place] [address] Kira Thyaer MD [facility] PULMONARY MEDICINE [place] [phone] Pending Results Name Type Priority Associated Diagnoses Date /Time Film Library- Storage only DX Abdomen Imaging Routine 02/03/2012 4:29 PM EDT documented as of this encounter Visit Diagnoses Not on filedocumented in this encounter Care Teams Senior Outside Sales Representative Relationship Specialty Start Date End Date Genet Sauer MD [facility] [address] [place] [address] PCP - General 09/11/12 06/18/13 documented as of this encounter
--- OUTSIDE RECORDS SUMMARY | 2024-04-23 18:40 | XMS_ITS | Encounter Summary ---
[place] [address] Care Team Providers Care Program/Music Director Name Role Phone Cathy Wu APRN Primary Care Provider [phone] Encounter Details Date Type Department Care Team (Late st Contact Info) Description 09/07/2012 External Results XRay at [address] [place] [phone] Johan Riddle MD [address] [place] [address] Social History Tobacco Use Types Packs/Day Years [...] 4:00 PM EDT Office Visit Pulmonology at [facility] [place] [phone] Kira Thayer MD [facility] [place] [address] documented as of this encounter Procedures Procedure [...] on filedocumented in this encounter Care Teams Program/Music Director Relationship Specialty Start Date End Date Cathy Wu APRN PCP - General 08/27/11 09/10/12 documented as of this encounter
--- OUTSIDE RECORDS SUMMARY | 2024-04-23 18:40 | XMS_ITS | Clinical Summary ---
Author Organization [facility] Address [address] [place] [address] Care Team Providers Care Safety Tech Name Role Phone Genet Sauer MD Primary Care Provider [phone] Encounters Date Type Department Care Team Description 04/23/2024 Lab Requisition [facility] Pathology & Laboratory [address] [address] Outr Resulting Lab, Provider 03/29/2024 Lab Requisition [facility] Pathology & Laboratory [facility] [address] [place] [address] Outr Resulting Lab, Provider from Last 3 [...] 8.2 See Note ng/mL 03/30/2024 13:03 EST [facility] Comment: NOTE: Tacrolimus Therapeutic Range: 3-12 ng/mL (The goal level is based on clinical context). Assayed utilizing [employer] Chemiluminescent technology. ??Values obtained using different assay methods cannot be used interchangeably. Blood VENOUS BLOOD / Unknown 03/29/2024 7:15 EST 03/29/2024 17:17 EST us Provider Outr Resulting Lab CHEMISTRY & BLOOD GA S ORDERABLES Final Result [facility] [address] [place], [place] [id number] from Last 3 Months Insurance [place]ARE [place] Care Teams Safety Tech Relationship Specialty Start Date End Date Genet Sauer MD [address] [place] [address] PCP - General 09/19/12
--- OUTSIDE RECORDS SUMMARY | 2024-04-23 18:40 | XMS_ITS | Encounter Summary ---
Author Organization [facility] [place] [address] Care Team Providers Care Malter Operator Name Role Phone Genet Sauer MD Primary Care Provider [phone] Encounter Details Date Type Department Care Team (Late st Contact Info) Description 01/09/2011 Orders [place] [phone] Joao Interiano MD Social History Tobacco Use [...] 4:00 PM EDT Office [place] [address] Kira Thayer MD [facility] [place] [address] Pending Results Name Type Priority Associated Diagnoses Date /Time Film Library- Storage only DX Chest Imaging Routine 01/09/2011 4:35 PM EDT documented as of this encounter Visit Diagnoses Not on filedocumented in this encounter Care Teams Malter Operator Relationship Specialty Start Date End Date Genet Sauer MD [facility] [address] [place] [address] [address] [place] [address] PCP - General 09/11/12 06/18/13 documented as of this encounter
--- OUTSIDE RECORDS SUMMARY | 2024-04-23 18:40 | XMS_ITS | Encounter Summary ---
Author Organization [facility] [place] [address] Care Team Providers Care Auctioneer Automobile Name Role Phone ChoctawJessie beckham Senait MARCELINO Primary Care Provider [phone] Reason for Visit * Reason Comments Nephrolithiasis Encounter Details Date Type Department Care Team (Latest Contact Info) Description 08/13/2014 3:20 PM EDT [place] [address] Kaiser Chang Jr., MD [facility] [place] [address] Recurrent nephrolithiasis Discharge Disposition: Home Social History [...] this, she had a repeat ultrasound at [facility] and thissuggested an 8 mm [...] pack years Disabled 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 This reveals no hydronephrosis,possibly a stone in [...] 4:00 PM EDT [place] [phone] Kira Thayer MD [facility] [place] [address] documented as of this encounter Results * [...] kidney documented in this encounter Care Teams Auctioneer Automobile Relationship Specialty Start Date End Date Jessie Dover APRN PCP - General 06/19/13 08/29/18 documented as of this encounter
--- OUTSIDE RECORDS SUMMARY | 2024-04-23 18:40 | XMS_ITS | Encounter Summary ---
Author Organization [facility] [place] [address] Care Team Providers Care Clerical Adjuster Name Role Phone Genet Sauer MD Primary Care Provider [phone] Encounter Details Date Type Department Care Team (Late st Contact Info) Description 04/30/2009 Orders [place] [phone] Joao Interiano MD Social History Tobacco Use [...] 4:00 PM EDT [place] [address] [facility] [place] [address] Pending Results Name Type Priority Associated Diagnoses Date /Time Film Library- Storage only DX Chest Imaging Routine 04/30/2009 4:57 PM EST documented as of this encounter Visit Diagnoses Not on filedocumented in this encounter Care Teams Clerical Adjuster Relationship Specialty Start Date End Date Genet Sauer MD [facility] [address] [place] [address] [place] [address] PCP - General 09/11/12 06/18/13 documented as of this encounter
--- OUTSIDE RECORDS SUMMARY | 2024-04-23 18:41 | XMS_ITS | Encounter Summary ---
Author Organization [facility] Address [address] [place] [address] Care Team Providers Care Toe Stapler Name Role Phone Genet Sauer MD Primary Care Provider [phone] Encounter Details Date Type Department Care Team (Late st Contact Info) Description 04/02/2019 Lab Requisition [facility] Pathology & Laboratory Medicine - [address] [address] Karuna Santana, DO [address] [place], [place] [phone] Encounter for other general examination Social History [...] mucosa negative for dysplasia. 04/09/2019 11:[address] [facility] at 1125 Clinical History Perirectal cyst 04/09/2019 11:25 [facility] Attestation There was significant resident/fellow involvement in the diagnostic evaluation of this case. By the signature below, the attending physician certifies that they have personally conducted a gross and/or microscopic examination of the described specimens and rendered or confirmed the above diagnosis. 04/09/2019 11:25 [facility] at 1125 Gross Description A. [...] B1. Val Aditi 04/05/2019 08:44 04/09/2019 11:25 [facility] Resident/Alec w: Edy Hampton MD 04/09/2019 11:25 [facility] Scanned Images 04/09/2019 11:25 [facility] Tissue SPECIMEN FROM RECTUM / Unknown 04/02/2019 10:13 EST 04/02/2019 19:18 EST Tissue specimen (specimen) SPECIMEN FROM RECTUM / Unknown 04/02/2019 10:13 EST 04/02/2019 19:18 EST us Karuna Santana DO PATHOLOGY ORDERABLES Final Re sult [facility] [address] [place] [address] documented in this encounter Visit Diagnoses Diagnosis Encounter for other general examination documented in this encounter Care Teams Toe Stapler Relationship Specialty Start Date End Date Genet Sauer MD [address] [place] [address] PCP - General 09/19/12 documented as of this encounter
--- OUTSIDE RECORDS SUMMARY | 2024-04-23 18:41 | XMS_ITS | Encounter Summary ---
Author Organization [facility] Address [address] [place] [address] Care Team Providers Care Clinical Pharmacist Name Role Phone Genet Sauer MD Primary Care Provider [phone] Encounter Details Date Type Department Care Team (Late st Contact Info) Description 02/21/[address] [facility]ISM [phone] Molina Hopkins, DO [address] [place] [address] Social History Tobacco Use Types [...] ? JESSIE SANCHEZ ? Accession #: ? [id number] ? : ? 1970 (Age: 43) ??F ? Collect Date: ? 02/21/2014 ? Location: ? [facility] ? Receive Date: ? 02/22/2014 ? Provider: MOLINA HOPKINS DO Copy to: JESSIE CALDERON CUSTOMER SERVICE REPRESENTATIVE TEACHER ? Final Pathologic Diagnosis: APPENDIX, APPENDECTOMY: - [...] adjacent to the proximal stapled margin, two provider service representative cross sections and one half of the longitudinally bisected distal tip are submitted in 1. Karuna Amaral 02/22/2014 12:23 PM End of Report [facility] 02/21/2014 8:40 EST 02/22/2014 8:40 EST us Molina Hopkins DO PATHOLOGY ORDERABLES Final Res ult [facility] [address] [place] [address] documented in this encounter Visit Diagnoses Not on filedocumented in this encounter Care Teams Clinical Pharmacist Relationship Specialty Start Date End Date Genet Sauer MD [address] [place] [address] PCP - General 09/19/12 documented as of this encounter
--- OUTSIDE RECORDS SUMMARY | 2024-04-23 18:41 | XMS_ITS | Encounter Summary ---
Author Organization [facility] Address [address] [place] [address] Care Team Providers Care Swing Grinder Name Role Phone Genet Sauer MD Primary Care Provider [phone] Encounter Details Date Type Department Care Team (Late st Contact Info) Description 01/15/2020 Lab Requisition [facility] Pathology & Laboratory Medicine - [address] [address] Outr Resulting Lab, Provider Social History Tobacco [...] ova and parasites seen. 01/16/2020 14:31 EDT [facility] Feces SPECIMEN FROM RECTUM / Unknown 01/14/2020 17:56 EDT 01/15/2020 20:38 EDT Narrative [facility] - 01/16/2020 14:31 EDT (If Cryptosporidium, Cyclospora, or Microsporidium are suspected, specific tests must be requested.) Single negative specimen does not rule out the possibility of a parasitic infection. us Provider Outr Resulting Lab MICROBIOLOGY - GENER AL ORDERABLES Final Result [facility] [address] [place] [address] documented in this encounter Visit Diagnoses Not on filedocumented in this encounter Care Teams Swing Grinder Relationship Specialty Start Date End Date Genet Sauer MD [address] [place] [address] PCP - General 09/19/12 documented as of this encounter
--- OUTSIDE RECORDS SUMMARY | 2024-04-23 18:41 | XMS_ITS | Encounter Summary ---
Author Organization [facility] Address [address] [place] [address] Care Team Providers Care Community Organizer Name Role Phone Unknown, Provider Primary Care Provider Unava ilable Encounter Details Date Type Department Care Team (Late st Contact Info) Description 09/27/2008 Orders Only [facility] - [facility] [address] [place] [phone] Kalia Combs MD [address] [place] [address] Social History Tobacco Use Types Packs/Day Years [...] ? LEGET, JESSIE ? Accession #: ? [id number] ? : ? 1970 (Age: 38) ??F [...] chronic mastitis. Clinical correlation is essential. ? Live In Housekeeper Nanny sections of this case have been reviewed [...] PATHOLOGY ORDERABLES Final Result Performing Organization Address City/State/[facility] Co de Phone Number [facility] [address] [place] [address] documented in this encounter Visit Diagnoses Not on filedocumented in this encounter Care Teams Community Organizer Relationship Specialty Start Date End Date Unknown, Provider, PCP - General 08/26/08 09/30/08 documented as of this encounter
--- OUTSIDE RECORDS SUMMARY | 2024-04-23 18:41 | XMS_ITS | Encounter Summary ---
Author Organization [facility] Address [address] [place] [address] Care Team Providers Care Civil Estimator Name Role Phone Genet Sauer MD Primary Care Provider [phone] Unknown, Provider Primary Care Provider Unava ilable Encounter Details Date Type Department Care Team (Late st Contact Info) Description 01/18/2008 Before PRISM Converted Visit (Maple) [facility] - Maple conversion [address] [place] [address] Ashley Abdi MD [address] [place] [address] [place] [address] Social History Tobacco Use Types Packs/Day Years [...] ? DIEUDONNE, JESSIE ? Accession #: ? [id number] ? : ? 1970 (Age: 37) ??F [...] cervix ? A4 ?Posterior cervix ? A5 ?Institutional Custodian sections of fallopian tube and paratubal cyst ? A6 ?Institutional Custodian sections of ovary ? A7, A8 ?Additional ovarian tissue ? A9 ?Additional endomyometrium ? (Dr. Adam)/mpl ? End of Report ? [facility] 01/18/2008 01/19/2008 10: 17 EDT us Ashley Abdi MD PATHOLOGY ORDERABLES Final Resu lt [facility] [address] [place] [address] documented in this encounter Visit Diagnoses Not on filedocumented in this encounter Care Teams Civil Estimator Relationship Specialty Start Date End Date Genet Sauer MD [facility] [address] [place] [address] PCP - General 10/01/08 09/18/12 Unknown, MD Willie PCP - General 08/26/08 09/30/08 documented as of this encounter
--- OUTSIDE RECORDS SUMMARY | 2024-04-23 18:41 | XMS_ITS | Encounter Summary ---
Author Organization [facility] Address [address] [place] [address] Care Team Providers Care Airplane Cleaner Name Role Phone Genet Sauer MD Primary Care Provider [phone] Unknown, Provider Primary Care Provider Unava ilable Encounter Details Date Type Department Care Team (Late st Contact Info) Description 07/20/2007 Results Only [facility] - Maple conversion [address] [place] [address] Abbie Waldron, [address] [place] [address] Social History Tobacco Use Types [...] 68. [facility] Report Status Final [id number] [facility] 07/20/2007 14:5 0 EDT 07/30/2007 20:20 EDT Abbie Waldron [facility] MICROBIOLOGY - GENERAL ORDER [place] Final Result [facility] [address] [place] [address] * CYTOPATHOLOGY (07/20/2007 0:00 EDT) Pathology Report: CYTOPATHOLOGY REPORT Reports generated via electronic interface contain original data; however they are lacking the format of the original report. Caution should be taken when reading/interpreti ng unformatted reports. Name: ? JESSIE BRO ? Accession #: ? [id number] : ? 1970 (Age: 36) ??F ?Collect Date: ? 07/20/2007 Location: ? [facility] ? Receive Date: ? 07/21/2007 Provider: ?ABBIE WALDRON [facility] Copy to: ? Specimen/Source: ?ThinPrep Pap Test, Cervix/Endocervix, processed on [employer] ThinPrep Imaging System, with manual evaluation Last [...] [facility] 07/20/2007 07/21/2007 us Abbie Waldron [facility] PATHOLOGY ORDERABLES Final R esult [facility] [address] [place] [address] documented in this encounter Visit Diagnoses Not on filedocumented in this encounter Care Teams Airplane Cleaner Relationship Specialty Start Date End Date Genet Sauer MD [facility] [address] [place], [place] [id number] PCP - General 10/01/08 09/18/12 Unknown, MD Willie PCP - General 08/26/08 09/30/08 documented as of this encounter
--- OUTSIDE RECORDS SUMMARY | 2024-04-23 18:41 | XMS_ITS | Encounter Summary ---
Author Organization [facility] Address [address] [place] [address] Care Team Providers Care Dielectric Tester Name Role Phone Genet Sauer MD Primary Care Provider [phone] Encounter Details Date Type Department Care Team (Late st Contact Info) Description 07/17/2020 Lab Requisition [facility] Pathology & Laboratory Medicine - [address] [address] Outr Resulting Lab, Provider Social History Tobacco [...] AL ORDERABLES Final Result Performing Organization Address City/State/[facility] Co de Phone Number [facility] [address] [place] [address] * COVID-19 TESTING (07/17/2020 10:43 EDT) COVID-19 rt-PCR Result Negative Negative 07/18/2020 12:48 EDT [facility] Comment: This test [...] performed using the rubi SARS-CoV-2 assay ([employer] on the Rubi 6800 System Performing Lab Rubi 6800 [facility] Lab 07/18/2020 12:48 EDT [facility] Swab 07/17/2020 10:4 3 EDT 07/17/2020 20:09 EDT us Provider Outr Resulting Lab MICROBIOLOGY - GENER AL ORDERABLES Final Result Performing Organization Address [facility] Co de Phone Number [facility] [address] [place] [address] documented in this encounter Visit Diagnoses Not on filedocumented in this encounter Care Teams Dielectric Tester Relationship Specialty Start Date End Date Genet Sauer MD [address] [place] [address] PCP - General 09/19/12 documented as of this encounter
--- OUTSIDE RECORDS SUMMARY | 2024-04-23 18:41 | XMS_ITS | Encounter Summary ---
Author Organization Health system Address [address] [place] [address] Care Team Providers Care Truck Spotter Name Role Phone Genet Sauer MD Primary Care Provider [phone] Encounter Details Date Type Department Care Team (Latest Contact Info) Description 08/08/2018 12:18 EDT - 08/08/2018 23:59 EDT Hospital Encounter [address] [address] Unknown, Provider, MD Discharge Disposition: Auto Discharge [...] on filedocumented in this encounter Care Teams Truck Spotter Relationship Specialty Start Date End Date Genet Sauer MD [address] [place] [address] PCP - General 09/19/12 documented as of this encounter
--- OUTSIDE RECORDS SUMMARY | 2024-04-23 18:41 | XMS_ITS | Encounter Summary ---
Author Organization [facility] Address [address] [place] [address] Care Team Providers Care Catalyst Operator Chief Name Role Phone Genet Sauer MD Primary Care Provider Encounter Details Date Type Department Care Team (Latest Contact Info) Description 02/26/2014 11:40 EST - 02/26/2014 23:59 EST Hospital Encounter [address] [address] Unknown, Provider, MD Discharge Disposition: Home or [...] Code Departure Means Destination Home or Self Retirement documented in this encounter Plan of Treatment Not on file documented as of this encounter Visit Diagnoses Not on filedocumented in this encounter Care Teams Catalyst Operator Chief Relationship Specialty Start Date End Date Genet Sauer MD [address] [place] [address] PCP - General 09/19/12 documented as of this encounter
--- OUTSIDE RECORDS SUMMARY | 2024-04-23 18:41 | XMS_ITS | Encounter Summary ---
Author Organization [facility] Address [address] [place] [address] Care Team Providers Care Biblical Studies Professor Name Role Phone Unavailable Primary Care Provider Unavailabl e Encounter Details Date Type Department Care Team (Late st Contact Info) Description 08/22/2008 Orders Only [facility] Laboratory Services - [facility] ([facility]) [address] [place] [id number] Kalia Combs MD [address] [place] [phone] Social History Tobacco Use Types Packs/Day Years [...] ? LEBEL, JESSIE ? Accession #: ? [id number] ? : ? 1970 (Age: 37) ??F [...] in toto as (A). ? Received in Whe[employer]'s solution labelled LebelBonniean and biopsy ascending ?? colon are two pink-bass irregular soft tissues, 0.7 x 0.2 x 0.1 cm and 0.8 x 0.1 x 0.1 cm. ??Submitted in toto as (B). ? Received in [employer]ret[employer]'s solution labelled Jessie Sanchez and biopsy transverse ?? colon are three pink-bass irregular soft tissues ranging from 0.1 x 0.1 x 0.1 cm to 0.5 x 0.2 x 0.1 cm. ??Submitted in toto as (C). ? Received in Wheretoget's solution labelled LebelBonniean and biopsy sigmoid are [...] PATHOLOGY ORDERABLES Final Result [facility] [address] [place] [address] documented in this encounter Visit Diagnoses Not on filedocumented in this encounter
--- OUTSIDE RECORDS SUMMARY | 2024-04-23 18:41 | XMS_ITS | Encounter Summary ---
Author Organization [facility] Address [address] [place] [address] Care Team Providers Care Automobile Accessories Salesperson Name Role Phone Genet Sauer MD Primary Care Provider [phone] Unknown, Provider Primary Care Provider Unava ilable Encounter Details Date Type Department Care Team (Late st Contact Info) Description 09/14/2007 Results Only [facility] - Maple conversion [address] [place] [address] Ashley Abdi MD [address] [place] [address] [place] [address] Social History Tobacco Use Types Packs/Day Years [...] ? DIEUDONNE JESSIE ? Accession #: ? [id number] ? : ? 1970 (Age: 37) ??F [...] Final Resu lt [facility] [address] [place] [address] documented in this encounter Visit Diagnoses Not on filedocumented in this encounter Care Teams Automobile Accessories Salesperson Relationship Specialty Start Date End Date Genet Sauer MD [facility] [address] [place] [address] PCP - General 10/01/08 09/18/12 Unknown, Provider, PCP - General 08/26/08 09/30/08 documented as of this encounter
--- OUTSIDE RECORDS SUMMARY | 2024-04-23 18:41 | XMS_ITS | Encounter Summary ---
Author Organization [facility] Address [address] [place] [address] Care Team Providers Care Sugar Refinery Supervisor Name Role Phone Genet Sauer MD Primary Care Provider [phone] Encounter Details Date Type Department Care Team (Late st Contact Info) Description 08/08/2018 Results Only [facility]- [facility] [phone] Sarina Zapata MD [address] [place] [address] [address] [place], [place] [phone] Social History Tobacco Use Types Packs/Day Years [...] ? DIEUDONNE JESSIE ? Accession #: ? [id number] ? : ? 1970 (Age: 47) ??F [...] GI biopsy series is negative for dysplasia. Relationship Specialist slides of this case were reviewed at [...] (ASCP) 08/08/2018 3:55 PM End of Report [facility] 08/08/2018 15:4 4 EDT 08/08/2018 15:44 EDT us Sarina Zapata MD PATHOLOGY ORDERABLES Fin al Result [facility] [address] [place] [address] documented in this encounter Visit Diagnoses Not on filedocumented in this encounter Care Teams Sugar Refinery Supervisor Relationship Specialty Start Date End Date Genet Sauer MD [address] [place] [address] PCP - General 09/19/12 documented as of this encounter
--- OUTSIDE RECORDS SUMMARY | 2024-04-23 18:41 | XMS_ITS | Encounter Summary ---
Author Organization [facility] Address [address] [place] [address] Care Team Providers Care Field Administrator Name Role Phone Alma Davila MD Primary Care Provider [phone] Encounter Details Date Type Department Care Team (Late st Contact Info) Description 09/15/2012 Results Only [facility] [phone] Molina Hopkins, DO [address] [place] [address] Social History Tobacco Use Types [...] ? DIEUDONNE JESSIE ? Accession #: ? [id number] ? : ? 1970 (Age: 42) ??F [...] specimen is entirely submitted as (B1). ??(Dr. Stern)/[facility] End of Report [facility] 09/15/2012 16:1 3 EDT 09/15/2012 16:13 EDT us Molina Hopkins DO PATHOLOGY ORDERABLES Final Res ult [facility] [address] [place] [address] documented in this encounter Visit Diagnoses Not on filedocumented in this encounter Care Teams Field Administrator Relationship Specialty Start Date End Date Alma Davila MD [facility] [address] [place], [place] [phone] PCP - General 10/01/08 09/18/12 documented as of this encounter
[2024-04-24 15:29] LABS: Campylobacter PCR Negative (Negative); Salmonella PCR Negative (Negative); Shiga Toxin PCR Negative (Negative); Shigella/Enteroinvasive Ecoli Negative (Negative)
== END 2024-04-23 18:34 | disposition home or self-care (01) ==
LOC: LBN 18:33
PROVIDERS: Visit Provider Emergency Medicine
DX: R19.7 Diarrhea, unspecified (principal)
CPT/HCPCS: 87493; 87505; 87177

== ENCOUNTER 2024-04-26 13:18 | Outpatient (REF) | payer MEDICARE, SELFPAY ==
--- OUTSIDE RECORDS SUMMARY | 2024-04-26 13:22 | XMS_ITS | Encounter Summary ---
Author Organization [facility] [place] [address] Care Team Providers Care Christian Science Nurse Name Role Phone Belkys Bundy DO Primary Care Provider [phone] Encounter Details Date Type Department Care Team [...] 4:00 PM EDT Office [place] [address] Kira Thayer MD [facility] [place] [address] documented as of this encounter Visit Diagnoses Not on filedocumented in this encounter Care Teams Christian Science Nurse Relationship Specialty Start Date End Date Belkys Bundy DO [address] [place], [place] [phone] PCP - General Family Medicine 03/21/19 documented as of this encounter
--- OUTSIDE RECORDS SUMMARY | 2024-04-26 13:22 | XMS_ITS | Encounter Summary ---
Author Organization [facility] Address [facility] [place] [address] Care Team Providers Care Aircraft Mechanic Name Role Phone Belkys Bundy DO Primary Care Provider [phone] Encounter Details Date Type Department Care Team (Late st Contact Info) Description 07/08/2023 Notes [place] [address] Kira Thayer MD [facility] [place] [address] Social History Tobacco Use Types Packs/Day Years [...] reached out after lung transplant evaluation at [facility], reporting the recommended she discuss nocturnal bipap with us. Presumably this is related to finding of hypercarbia on labs (ECHO reviewed, does not show RV strain or elevated PA pressures.) Prior VBG fall 2022 did not demonstrate significant hypercarbia, and prior overnight oximetry on 2LNC O2 11/2022 did not demonstrate desaturation. We am requesting lab results including ABG/VBG from [facility], and am ordering repeat overnight oximetry to be performed on 2L NC O2 now (can be done through [facility] PFT lab, similar to prior overnight [...] PM EDT Office [place] [address] Kira Thayer MD [facility] [place] [address] documented as of this encounter Visit Diagnoses Not on filedocumented in this encounter Care Teams Aircraft Mechanic Relationship Specialty Start Date End Date Belkys Bundy DO [address] [place] [address] PCP - General Family Medicine 03/21/19 documented as of this encounter
--- OUTSIDE RECORDS SUMMARY | 2024-04-26 13:22 | XMS_ITS | Encounter Summary ---
[place] [address] Care Team Providers Care Ehs Teacher Name Role Phone Belkys Bundy DO Primary Care Provider [phone] Reason for Visit * Reason Onset Date Comments Disability Paperwork 04/16/2024 Updated for ms Encounter Details Date Type Department Care Team (Late st Contact Info) Description 04/16/2024 [place] [phone] Emily Starr RN Disability Paperwork (Updated forms) [...] 04/16/2024 11:36 AM EST Faxed completed Updated [facility] paperwork, signed by Dr. Thayer, to [employer]. This covered the following items: Update with dates. Fax submission confirmation time stamped for 04/16/2023 @ 1590. 6 pages with cover sheet. Copy of updated forms sent to scanning for inclusion to patient records. documented in this encounter Plan of Treatment Upcoming Encounters Date Type Department Care Team (Late st Contact Info) Description 08/27/2024 4:00 PM EDT [place] [address] Kira Thayer MD [facility] [place] [address] documented as of this encounter Visit Diagnoses Not on filedocumented in this encounter Care Teams Ehs Teacher Relationship Specialty Start Date End Date Belkys Bundy DO [address] [place] [address] PCP - General Family Medicine 03/21/19 documented as of this encounter
--- OUTSIDE RECORDS SUMMARY | 2024-04-26 13:22 | XMS_ITS | Encounter Summary ---
Author Organization [facility] Address [facility] [place] [address] Care Team Providers Care Back Order Clerk Name Role Phone Belkys Bundy Primary Care Provider [phone]- [phone] Encounter Details Date Type Department Care Team (Late st Contact Info) Description 04/20/2024 10:00 AM EST Office [place] [address] Kira Thayer MD [facility] [place] [address] Lung transplant status, bilateral Social History Tobacco [...] a photo of your medication list in [facility] if you can. documented in this encounter Plan of Treatment Upcoming Encounters Date Type Department Care Team (Late st Contact Info) Description 08/27/2024 4:00 PM EDT Office [place] [address] Kira Thayer MD [facility] [place] [address] documented as of this encounter Visit Diagnoses Diagnosis Lung transplant status, bilateral Lung replaced by transplant documented in this encounter Care Teams Back Order Clerk Relationship Specialty Start Date End Date Belkys Bundy DO [address] [place] [place] [address] PCP - General Family Medicine 03/21/19 documented as of this encounter
--- OUTSIDE RECORDS SUMMARY | 2024-04-26 13:22 | XMS_ITS | Encounter Summary ---
Author Organization [facility] [place] [address] Care Team Providers Care Fluid Dynamicist Name Role Phone Belkys Bundy Primary Care Provider +1- [phone] Encounter Details Date Type Department Care Team (Late st Contact Info) Description 03/01/2024 Telephone [place] [address] Yesenia Nino, RN Social History Tobacco Use [...] 1:47 PM EST [place] paperwork faxed to [employer] HR department. Fax submission confirmation time stamped for 03/01/2024 @ 6448. 5 pages with cover sheet. Copy sentto [...] 03/01/2024 11:13 AM EST Copied from CRM #[id number]. Topic: Specialty Dept CRMs - Generic Call [...] has been completed. Please call him at [phone]. documented in this encounter Plan of Treatment Upcoming Encounters Date Type Department Care Team (Late st Contact Info) Description 08/27/2024 4:00 PM EDT Office [place] [address] Kira Thayer MD [facility] [place] [address] documented as of this encounter Visit Diagnoses Not on filedocumented in this encounter Care Teams Fluid Dynamicist Relationship Specialty Start Date End Date Belkys Bundy DO [address] [facility] [place] [address] PCP - General Family Medicine 03/21/19 documented as of this encounter
--- OUTSIDE RECORDS SUMMARY | 2024-04-26 13:22 | XMS_ITS | Encounter Summary ---
Author [facility] [place] [address] Care Team Providers Care Gluing Machine Operator Electronic Name Role Phone Belkys Bundy DO Primary Care Provider [phone]- [phone] Encounter Details Date Type Department Care Team (Late st Contact Info) Description 04/13/2024 Telephone [place] [address] Emily Starr RN Social History Tobacco Use [...] - 04/13/2024 3:01 PM EST Copied from [facility] #[id number]. Topic: Specialty Dept CRMs - Generic Call [...] 4:00 PM EDT Office [place] [address] Kira Thayer MD [facility] [place] [address] documented as of this encounter Visit Diagnoses Not on filedocumented in this encounter Care Teams Gluing Machine Operator Electronic Relationship Specialty Start Date End Date Belkys Bundy DO [address] [place] [address] PCP - General Family Medicine 03/21/19 documented as of this encounter
--- OUTSIDE RECORDS SUMMARY | 2024-04-26 13:22 | XMS_ITS | Encounter Summary ---
[place] [address] Care Team Providers Care Vacuum Extractor Operator Name Role Phone Belkys Bundy DO Primary Care Provider +1- [phone] Reason for Visit * Reason Onset Date Comments Disability Paperwork 04/20/2024 Encounter Details Date Type Department Care Team (Late st Contact Info) Description 04/20/2024 Tele[place] [address] Emily Starr RN Disability Paperwork Social History [...] AM EST Rec'd original updated [facility] paperwork for Suleiman Seth, from Dr. Thayer. Made copy and sent to scanning for inclusion to patient's records. documented in this encounter Plan of Treatment Upcoming Encounters Date Type Department Care Team (Late st Contact Info) Description 08/27/2024 4:00 PM EDT Office [place] [address] Kira Thayer MD [facility] [address] [place] [address] documented as of this encounter Visit Diagnoses Not on filedocumented in this encounter Care Teams Vacuum Extractor Operator Relationship Specialty Start Date End Date Belkys Bundy DO [address] [place] [address] PCP - General Family Medicine 03/21/19 documented as of this encounter
--- OUTSIDE RECORDS SUMMARY | 2024-04-26 13:22 | XMS_ITS | Encounter Summary ---
Author Organization [facility] [place] [address] Care Team Providers Care Classification Control Clerk Name Role Phone Belkys Bundy DO Primary Care Provider +1- [phone] Encounter Details Date Type Department Care Team [...] 4:00 PM EDT Office [place] [address] Kira Thayer MD [facility] [place] [address] documented as of this encounter Visit Diagnoses Not on filedocumented in this encounter Care Teams Classification Control Clerk Relationship Specialty Start Date End Date Belkys Bundy DO [address] [place], [place] [address] PCP - General Family Medicine 03/21/19 documented as of this encounter
--- OUTSIDE RECORDS SUMMARY | 2024-04-26 13:22 | XMS_ITS | Encounter Summary ---
Author Organization [place] [address] Care Team Providers Care Driver Examiner Name Role Phone Belkys Bundy DO Primary Care Provider +1- [phone] Encounter Details Date Type Department Care Team (Late st Contact Info) Description 03/06/2024 [place] [address] Emily Starr RN Social History Tobacco Use [...] 03/06/2024 1:31 PM EST Copied from CRM #[id number]. Topic: Specialty Dept CRMs - Generic Call [...] 4:00 PM EDT Office [place] [address] Kira Thayer MD [facility] [place] [address] documented as of this encounter Visit Diagnoses Not on filedocumented in this encounter Care Teams Driver Examiner Relationship Specialty Start Date End Date Belkys Bundy DO [address] [place] [address] PCP - General Family Medicine 03/21/19 documented as of this encounter
--- OUTSIDE RECORDS SUMMARY | 2024-04-26 13:22 | XMS_ITS | Encounter Summary ---
[place] [address] Care Team Providers Care Grain Spouter Name Role Phone Belkys Bundy Primary Care Provider +1- [phone] Reason for Visit * Reason Onset Date Comments Other 11/02/2023 DME - BiPAP Encounter Details Date Type Department Care Team (Late st Contact Info) Description 11/02/2023 [place] [address] Emily Starr RN Other (DME - BiPAP) [...] oximetry testing requisition be sent out to [facility]. She would like to instead request Dr. Thayer to put in an order for a sleep study through [facility]. Her rationale is that she would not be able to return the equipment in a timelymanner, and that she feels that the sleep study would give better data. * Telephone Encounter - Emily Starr RN - 11/04/2023 12:17 PM EDT RN called back to preferred home number, but was met with voicemail. LMOM, will attempt to call back, requested return call to [phone] * Telephone Encounter - Emily Starr RN - 11/04/2023 10:23 AM EDT Images from the original note were not included. RN called back to Jessie to discuss response from Dr. Thayer as follows: November 03, 2023 Kira Thayer MD to [place] 11/03/23 8:54 AM For bipap work-up, patient [...] placed in June, but it looks like [facility] bounced it back as they no longer [...] LMOM updating that records hadbeen received from [place], and notification would be sent to Dr. Thayer. * Telephone Encounter - Emily Starr RN - 11/02/2023 3:43 PM EDT Copied from [facility] #[id number]. Topic: Specialty Dept CRMs - Generic Call >> Nov 01, 2023 2:50 PM Dennis Rachel wrote: Specialist: Kira Thayer MD Relationship (if other than patient-full name): Jessie Sanchez Reason for Call: Patient called to get a message to [place]. She stated, [place] wants her to get a BiPap, all the notes from [place] should be there. documented in this encounter Plan of Treatment Upcoming Encounters Date Type Department Care Team (Late st Contact Info) Description 08/27/2024 4:00 PM EDT [place] [address] Kira Thayer MD [facility] [place] [address] documented as of this encounter Visit Diagnoses Not on filedocumented in this encounter Care Teams Grain Spouter Relationship Specialty Start Date End Date Belyks Bundy DO [address] [place] [address] PCP - General Family Medicine 03/21/19 documented as of this encounter
--- OUTSIDE RECORDS SUMMARY | 2024-04-26 13:22 | XMS_ITS | Encounter Summary ---
Author Organization [facility] [place] [address] Care Team Providers Care Escort Blind Name Role Phone Belkys Bundy DO Primary Care Provider +1- [phone] Encounter Details Date Type Department Care Team [...] EDT Office [place] [address] Kira Thayer MD [facility] [place] [address] documented as of this encounter Visit Diagnoses Not on filedocumented in this encounter Care Teams Escort Blind Relationship Specialty Start Date End Date Belkys Bundy DO [address] [place], [place] [address] PCP - General Family Medicine 03/21/19 documented as of this encounter
--- OUTSIDE RECORDS SUMMARY | 2024-04-26 13:22 | XMS_ITS | Encounter Summary ---
Author Organization [facility] [place] [address] Care Team Providers Care Sausage Grinder Name Role Phone Belkys Bundy DO Primary Care Provider +1- [phone] Reason for Visit * Reason Onset Date Comments Disability Paperwork 03/02/2024 Encounter Details Date Type Department Care Team (Late st Contact Info) Description 03/02/2024 Telephone [place] [phone] Emily Starr RN Disability Paperwork Social History [...] [place] paperwork, signed by Dr. Thayer, to [employer]. This covered the following items: Estimated end date 04/30/2024. Fax submission confirmation time stamped for 03/06/2024 @ 0908. 5 pages with cover sheet. Copy of [facility] paperwork sent to scanning for inclusion to patient records. Mailed to patient's address on file, previously confirmed. RN attempted to call Jones to update, but rec'd automated notification that his phone line had been disconnected. * Telephone Encounter - Emily Starr RN - 03/02/2024 1:48 PM EST Copied from CRM #[id number]. Topic: Specialty Dept CRMs - Generic Call >> Mar 02, 2024 8:39 AM Bryon Khanna wrote: Specialist: Kira Thayer MD Relationship (if other than patient-full name): Jones Avila, patient's Reason for Call: Suleiman stated his employer contacted him and the [facility] paperwork needs an end date, it can say something like 2 months. Suleiman stated this may need to be revisited later. Suleiman stated to please update the form and fax to his employer. Suleiman stated he can be reached at [phone] to discuss. documented in this encounter Plan of Treatment Upcoming Encounters Date Type Department Care Team (Late st Contact Info) Description 08/27/2024 4:00 PM EDT Office [place] [address] Kira Thayer MD [facility] [place] [address] documented as of this encounter Visit Diagnoses Not on filedocumented in this encounter Care Teams Sausage Grinder Relationship Specialty Start Date End Date Belkys Bundy DO [address] [place] [address] PCP - General Family Medicine 03/21/19 documented as of this encounter
--- OUTSIDE RECORDS SUMMARY | 2024-04-26 13:22 | XMS_ITS | Encounter Summary ---
[place] [address] Care Team Providers Care Superintendent Track Name Role Phone Belkys Bundy Primary Care Provider +1- [phone] Reason for Visit * Reason Onset Date Comments Pulmon Rehab 02/17/2023 Encounter Details Date Type Department Care Team (Late st Contact Info) Description 02/17/2023 [place] [phone] Emily Starr RN Pulmon Rehab Social History [...] PM EST RN faxed out referral to [facility] Pulmonary Rehab, attached was the following records: Referral, Patient Demographics, Allergy and Medication List, Immunization Summary, Office Visit Notes dated 02/07/2023, 11/22/2022, PFT results dated 10/18/2022, 09/13/2022 Fax submission confirmation time stamped for 02/17/2023 @ 6946, 30 pages with cover sheet. documented in this encounter Plan of Treatment Upcoming Encounters Date Type Department Care Team (Late st Contact Info) Description 08/27/2024 4:00 PM EDT [place] [address] Kira Thayer MD [facility] [place] [address] documented as of this encounter Visit Diagnoses Not on filedocumented in this encounter Care Teams Superintendent Track Relationship Specialty Start Date End Date Belkys Bundy DO [address] [place] [address] PCP - General Family Medicine 03/21/19 documented as of this encounter
--- OUTSIDE RECORDS SUMMARY | 2024-04-26 13:22 | XMS_ITS | Encounter Summary ---
[place] [address] Care Team Providers Care In Home Aide Name Role Phone Belkys Bundy DO Primary Care Provider +1- [phone] Reason for Referral * Consultation (Routine) - Authorized Specialty Diagnoses / Procedures Referred By Rossy levine Referred To Contact Pulmonology Diagnoses Other specified counseling Awaiting organ transplant status Dyspnea, unspecified Other abnormalities of breathing Chronic obstructive pulmonary disease, unspecified ENCOUNTER FOR BIPAP USE COUNSELING, LUNG TRANSPLANT CANDIDATE. PLEASE EVAL FOR C-PAP/BI-PAP PER [facility] PULM DATA Belkys Bundy DO [address] [place] [address] [facility] [address] [place] [phone] Referral ID Status Reason Start Date Expiration Date Visits Requested Visits Authorized [id number] Authorized Consult, Test & Treat PCP Updated and/or Approved 10/27/2023 04/28/2024 6 6 Encounter Details Date Type Department Care Team (Latest Contact Info) Description 11/22/2023 Transcribe Orders eDH Incoming Referrals [phone] Belkys Bundy DO [address] [place], [place] [phone] Other specified counseling Social History Tobacco Use [...] EDT Office [place] [address] Kira Thayer MD [facility] [place] [address] Scheduled Referrals Name Type Priority Associated Diagnoses Order Schedule Referral to Pulmonology Outpatient Referral Routine Other specified counseling Ordered: 11/22/2023 documented as of this encounter Visit Diagnoses Diagnosis Other specified counseling documented in this encounter Care Teams In Home Aide Relationship Specialty Start Date End Date Belkys Bundy DO [address] [place] [address] PCP - General Family Medicine 03/21/19 documented as of this encounter
--- OUTSIDE RECORDS SUMMARY | 2024-04-26 13:22 | XMS_ITS | Encounter Summary ---
[place] [address] Care Team Providers Care Automobile Mechanic Assistant Name Role Phone Belkys Bundy DO Primary Care Provider +1- [phone] Reason for Referral * Allergy Testing (Routine) - Authorized Specialty Diagnoses / Procedures Referred By Rossy levine Referred To Contact Allergy Diagnoses Allergy status to other antibiotic agents Adverse effect of other systemic antibiotics, initial encounter Belkys Bundy DO [address] [place] [address] [facility] [place] [facility] [address] [place] [address] Referral ID Status Reason Start Date Expiration Date Visits Requested Visits Authorized [id number] Authorized Consult, Test & Treat PCP Updated and/or Approved 09/21/2023 09/20/2024 6 6 Encounter Details Date Type Department Care Team (Latest Contact Info) Description 09/21/2023 Transcribe Orders eDH Incoming Referrals [phone] Belkys Bundy DO [address] [place] [id number] Allergy status to other antibiotic agents; Adverse [...] 4:00 PM EDT Office [place] [address] Kira Thayer MD [facility] [place] [address] Scheduled Referrals Name Type Priority Associated Diagnoses Orde r Schedule Referral to Allergy Outpatient Referral Routine Allergy status to other antibiotic agents Adverse effect of other systemic antibiotics, initial encounter Ordered: 09/21/2023 documented as of this encounter Visit Diagnoses Diagnosis Allergy status to other antibiotic agents Adverse effect of other systemic antibiotics, initial encounter documented in this encounter Care Teams Automobile Mechanic Assistant Relationship Specialty Start Date End Date Belkys Bundy DO [address] [place] [address] PCP - General Family Medicine 03/21/19 documented as of this encounter
--- OUTSIDE RECORDS SUMMARY | 2024-04-26 13:22 | XMS_ITS | Encounter Summary ---
Author Organization [facility] [place] [address] Care Team Providers Care Learning Disabilities Resource Teacher Name Role Phone Belkys Bundy Primary Care Provider +1- [phone] Encounter Details Date Type Department Care Team (Late st Contact Info) Description 03/02/2024 [place] [address] Millicent Valles Social History Tobacco Use Types [...] 4:00 PM EDT [place] [address] Kira Thayer MD [facility] [address] documented as of this encounter Visit Diagnoses Not on filedocumented in this encounter Care Teams Learning Disabilities Resource Teacher Relationship Specialty Start Date End Date Belkys Bundy DO [address] [place] [address] PCP - General Family Medicine 03/21/19 documented as of this encounter
--- OUTSIDE RECORDS SUMMARY | 2024-04-26 13:22 | XMS_ITS | Encounter Summary ---
Author Organization [facility] Address [facility] [place] [address] Care Team Providers Care Metropolitan Editor Name Role Phone Belkys Bundy Primary Care Provider +1- [phone] Encounter Details Date Type Department Care Team (Late st Contact Info) Description 12/16/2023 Telephone [place] [address] Kira Thayer MD [facility] [place] [address] Social History Tobacco Use Types Packs/Day Years [...] Called Jessie to follow up on my [facility] messages about pursuing additional testing to try [...] insurance must accept her blood gas results ([facility] sent a copy of ABG from June2023 - 11.06/58/142.) She shares she believes [facility] is moving forward with listing her for transplant soon. Orders Placed This Encounter Procedures Common Pulmonary Function Test Overnight pulse ox to be performed on home 2L [place] oxygen. Standing Status: Future Standing Expiration Date: 06/16/2024 Order Specific Question: Preferred location? Answer: External [125] Order Specific Question: Which External location will this be performed: Answer: Other Order Specific Question: Other Facility: Answer: [facility] Order Specific Question: Test to be performed Answer: Pulse Ox Overnight Kira Thayer MD documented in this encounter Plan of Treatment Upcoming Encounters Date Type Department Care Team (Late st Contact Info) Description 08/27/2024 4:00 PM EDT Office [place] [address] Kira Thayer MD [facility] [place] [address] Scheduled Orders Name Type Priority Associated Diagnoses Orde r Schedule Common Pulmonary Function Test PFT Routine COPD, very severe Expected: 12/16/2023, Expires: 06/16/2024 documented as of this encounter Visit Diagnoses Diagnosis COPD, very severe Chronic airway obstruction, not elsewhere classified documented in this encounter Care Teams Metropolitan Editor Relationship Specialty Start Date End Date Belkys Bundy DO [address] [place] [address] PCP - General Family Medicine 03/21/19 documented as of this encounter
--- OUTSIDE RECORDS SUMMARY | 2024-04-26 13:22 | XMS_ITS | Clinical Summary ---
Author Organization [facility] Address [facility] [place] [address] Care Team Providers Care Vine Pruner Name Role Phone Belkys Bundy DO Primary Care Provider +1- [phone] Allergies Active Allergy Reactions Criticality Noted Date [...] daily. 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 D, very severe INHALE 1 PUFF BY MOUTH ONCE DAILY 3 each 3 11/16/2023 Active Active Problems Problem Noted Date Diagnosed Date Chronic obstructive pulmonary disease 05/02/2020 Supplemental oxygen dependent 05/02/2020 Tobacco use 05/02/2020 Pruritus 08/27/2011 Encounters Date Type Department Care Team Description 04/20/2024 10:00 AM EST Office [place] [address] Kira Thayer MD Lung transplant status, bilateral 04/20/2024 [place] [address] Emily Starr, RN Disability Paperwork 04/20/2024 Travel 04/16/2024 Telephone Pulmonology at [place] [phone] Emily Starr RN Disability Paperwork (Updated forms) 04/13/2024 [place] [address] Emily Starr, RN 03/23/2024 Telephone Pulmonology at [place] [phone] Emily Starr, RN 03/22/2024 Telephone Pulmonology at [place] [phone] Tasha Obrien RN 03/06/2024 [place] [address] Emily Starr RN 03/02/2024 [place] [address] Emily Starr RN Disability Paperwork 03/02/2024 [place] [address] Millicent Valles 03/01/2024 [place] [address] Yesenia Nino, RN 02/27/2024 4:30 PM EST Office [place] [address] Kira Thayer MD COPD, very severe; Supplemental oxygen dependent; Cigarette nicotine dependence in remission; Hypercarbia 02/27/2024 Travel 02/08/2024 [place] [address] Emily Starr RN Infection (Covid-19) from Last 3 Months Immunizations Name Administration Dates Next Due Covid-19 Monovalent (Moderna Spikevax) 12yrs+ ([id number]) 09/15/2021 Covid-19, Unknown Formulation 01/13/2023 ,02/12/2021,08/03/2020,2020 Hepatitis [...] 4:00 PM EDT Office Visit Pulmonology at [facility] [place] [address] Kira Thayer MD [facility] [place] [address] Health Maintenance Due Date Last Done Comments [...] Vaccine: 50+ Completed 06/09/2023, 05/2011 Care Teams Vine Pruner Relationship Specialty Start Date End Date Belkys Bundy DO [address] [place], [place] [id number] PCP - General Family Medicine 03/21/19
--- OUTSIDE RECORDS SUMMARY | 2024-04-26 13:22 | XMS_ITS | Encounter Summary ---
Author Organization [facility] Address [facility] [place] [address] Care Team Providers Care Deicer Element Winder Machine Name Role Phone Belkys Bundy Primary Care Provider +1- [phone] Encounter Details Date Type Department Care Team (Late st Contact Info) Description 06/20/2023 2:00 PM EDT Office [place] [address] Kira Thayer MD [facility] [place] [address] COPD, very severe; Supplemental oxygen dependent; Cigarette [...] [facility] for initial transplant assessment 12/2022; she has [...] needed. Only takes when really needs them txckyhablrk-juyuhzfrzwkz-odqikfinkc (Trelegy Ellipta) 200-62.5-25 mcg Inhale 1 puff into the lungs daily. 28 each 11 predniSONE (Deltasone) 20 mg tablet TAKE TWO TABLETS BY MOUTH EVERY DAY NEEDED FOR COPD EXACERBATION; ALERT PV INSTALLER TECH AND PCP inhalational spacing device (Ricci Aerosol [place] Enhancer) Spacer .MEDSUPPLY levothyroxine (Synthroid) 100 mcg [...] tablet 11 fluticasone propionate (FLONASE) 50 mcg/actuation [place], Suspension atorvastatin (Lipitor) 20 mg Tablet cyclobenzaprine [...] [facility]. She will benefit from pulm rehab; we have previously placed a referral to this program at [facility] in [facility], and she will [...] indicated for stable small pulm nodules seen 0867-0097. We will hold off on repeat PFTs here given these are anticipated to be done at her next transplant assessment visit. Summary Recommendations: - pulm rehab encouraged, she will call program at [facility] to try to enroll - continue trelegy [...] questions or concerns. Kira Thayer MD [facility] P[facility] AT [facility] [address] Dept: [phone] Loc: [phone] documented in this encounter Plan of Treatment Upcoming Encounters Date Type Department Care Team (Late Contact Info) Description 08/27/2024 4:00 PM EDT Office [place] [address] Kira Thayer MD [facility] DR PULMONARY MEDICINE [place] [phone] documented as of this encounter Visit Diagnoses Diagnosis COPD, very severe Chronic airway obstruction, not elsewhere classified Supplemental oxygen dependent Dependence on supplemental oxygen Cigarette nicotine dependence in remission Tobacco use disorder documented in this encounter Care Teams Deicer Element Winder Machine Relationship Specialty Start Date End Date Belkys Bundy DO [address] [place] [address] PCP - General Family Medicine 03/21/19 documented as of this encounter
--- OUTSIDE RECORDS SUMMARY | 2024-04-26 13:22 | XMS_ITS | Encounter Summary ---
[place] [address] Care Team Providers Care Director Biologics Name Role Phone Belkys Bundy DO Primary Care Provider +1- [phone] Reason for Visit * Reason Onset Date Comments Oxygen Dependence 12/19/2023 Overnight Puls e Oximetry Encounter Details Date Type Department Care Team (Late st Contact Info) Description 12/19/2023 [place] [address] Emily Starr RN Oxygen Dependence (Overnight Pulse [...] RN faxed telephone encounter dated 12/16/2023, to [facility], attn: Dr. Belkys Bundy DO. Fax submission confirmation time stamped for 12/19/2023 @ 1509. 4 pages with cover sheet. documented in this encounter Plan of Treatment Upcoming Encounters Date Type Department Care Team (Late st Contact Info) Description 08/27/2024 4:00 PM EDT [place] [address] Kira Thayer MD [facility] [address] [place] [address] documented as of this encounter Visit Diagnoses Not on filedocumented in this encounter Care Teams Director Biologics Relationship Specialty Start Date End Date Belkys Bundy DO [address] [place] [address] PCP - General Family Medicine 03/21/19 documented as of this encounter
--- OUTSIDE RECORDS SUMMARY | 2024-04-26 13:22 | XMS_ITS | Encounter Summary ---
[place] [address] Care Team Providers Care Restaurant Front Manager Name Role Phone Belkys Bundy Primary Care Provider +1- [phone] Reason for Visit * Reason Onset Date Comments Oxygen Dependence 07/27/2023 Overnight Puls e Oximetry Requisition Encounter Details Date Type Department Care Team (Late st Contact Info) Description 07/27/2023 [place] [phone] Emily Starr RN Oxygen Dependence (Overnight Pulse [...] Testing Requisition, signed by Dr. Thayer, to [facility]. Attached to this was the following items: Patient Demographics This covered the following items: Common Pulmonary Function Test Qty: 1 Preferred location? External [125] Which External location will this be performed: Other Other Facility: [facility] Test to be performed: Pulse Ox Overnight Overnight oxygen testing to be performed on home 2L [place] O2 Fax submission confirmation time stamped for 07/27/2023 @ 7000. 4 pages with cover sheet. documented in this encounter Plan of Treatment Upcoming Encounters Date Type Department Care Team (Late st Contact Info) Description 08/27/2024 4:00 PM EDT Office [place] [address] Kira Thayer MD [facility] [place] [address] documented as of this encounter Visit Diagnoses Not on filedocumented in this encounter Care Teams Restaurant Front Manager Relationship Specialty Start Date End Date Belkys Bundy DO [address] [place] [address] PCP - General Family Medicine 03/21/19 documented as of this encounter
--- OUTSIDE RECORDS SUMMARY | 2024-04-26 13:22 | XMS_ITS | Encounter Summary ---
[place] [address] Care Team Providers Care Pantograph Operator Name Role Phone AnaBelkys moise Primary Care Provider +1- [phone] Reason for Visit * Reason Onset Date Comments Oxygen Dependence 12/19/2023 Overnight Puls e Oximetry Testing Requisition Encounter Details Date Type Department Care Team (Late st Contact Info) Description 12/19/2023 [place] [address] Emily Starr RN Oxygen Dependence (Overnight Pulse [...] Fax submission confirmation time stamped for @ 8490. 4 pages with cover sheet. documented in this encounter Plan of Treatment Upcoming Encounters Date Type Department Care Team (Late st Contact Info) Description 08/27/2024 4:00 PM EDT [place] [address] Kira Thayer MD [facility] [place] [address] documented as of this encounter Visit Diagnoses Not on filedocumented in this encounter Care Teams Pantograph Operator Relationship Specialty Start Date End Date Belkys Bundy DO [address] [place] [address] PCP - General Family Medicine 03/21/19 documented as of this encounter
--- OUTSIDE RECORDS SUMMARY | 2024-04-26 13:22 | XMS_ITS | Encounter Summary ---
[place] [address] Care Team Providers Care Trimmer Hand Name Role Phone Belkys Bundy Primary Care Provider +1- [phone] Reason for Visit * Reason Onset Date Comments Infection 02/08/2024 Covid-19 Encounter Details Date Type Department Care Team (Late st Contact Info) Description 02/08/2024 [place] [phone] Emily Starr RN Infection (Covid-19) Social History [...] symptoms initially started on 01/31/2024. [place], noting increased coughing and hacking. [...] 02/08/2024 12:29 PM EDT Copied from CRM #[id number]. Topic: Specialty Dept CRMs - Triage >> [...] 4:00 PM EDT [place] [address] Kira Thayer MD [facility] [place] [address] documented as of this encounter Visit Diagnoses Not on filedocumented in this encounter Care Teams Trimmer Hand Relationship Specialty Start Date End Date Belkys Bundy DO [address] [place] [address] PCP - General Family Medicine 03/21/19 documented as of this encounter
--- OUTSIDE RECORDS SUMMARY | 2024-04-26 13:22 | XMS_ITS | Encounter Summary ---
Author Organization [facility]ly [facility] Address [facility] [place] [address] Care Team Providers Care Remelt Furnace Expediter Name Role Phone Belkys Bundy DO Primary Care Provider +1- [phone] Encounter Details Date Type Department Care Team [...] 4:00 PM EDT Office [place] [address] Kira Thayer MD [facility] [place] [address] documented as of this encounter Visit Diagnoses Not on filedocumented in this encounter Care Teams Remelt Furnace Expediter Relationship Specialty Start Date End Date Belkys Bundy DO [address] [place] [address] PCP - General Family Medicine 03/21/19 documented as of this encounter
--- OUTSIDE RECORDS SUMMARY | 2024-04-26 13:22 | XMS_ITS | Encounter Summary ---
Author Organization [facility] [place] [address] Care Team Providers Care International Editorial Producer Name Role Phone Belkys Bundy Primary Care Provider +1- [phone] Encounter Details Date Type Department Care Team (Late st Contact Info) Description 12/14/2022 [place] [phone] Kira Thayer MD [facility] [place] [address] Social History Tobacco Use Types Packs/Day Years [...] to review. Data capture was short, only 3w21hpb, but she confirms she was asleep during this time. Lowest SiB5nfn 91% while on home 2L [place] O2. This, combined with the ABG results showing improved CO2 (now 7.39/47) indicate that she does not have significant nocturnal hypoventilation at this time, and does not currently need nocturnal bipap. I reviewed this with her, and she will continue to use nocturnal 2L [place] O2. She shared she has an appointment set up with [facility] Transplant team on 12/20. Kira Thayer MD documented in this encounter Plan of Treatment Upcoming Encounters Date Type Department Care Team (Late st Contact Info) Description 08/27/2024 4:00 PM EDT Office [place] [address] Kira Thayer MD [facility] [place] [address] documented as of this encounter Visit Diagnoses Not on filedocumented in this encounter Care Teams International Editorial Producer Relationship Specialty Start Date End Date Belkys Bundy DO [address] [place] [address] PCP - General Family Medicine 03/21/19 documented as of this encounter
--- OUTSIDE RECORDS SUMMARY | 2024-04-26 13:22 | XMS_ITS | Encounter Summary ---
Author Organization [facility] [place] [address] Care Team Providers Care Window Shade Cloth Sewer Name Role Phone Belkys Bundy Primary Care Provider +1- [phone] Encounter Details Date Type Department Care Team (Late st Contact Info) Description 07/25/2023 [place] [phone] Cristin Block Social History Tobacco Use Types [...] 4:00 PM EDT Office [place] [address] [facility] [address] documented as of this encounter Visit Diagnoses Not on filedocumented in this encounter Care Teams Window Shade Cloth Sewer Relationship Specialty Start Date End Date Belkys Bundy DO [address] [place] [address] PCP - General Family Medicine 03/21/19 documented as of this encounter
--- OUTSIDE RECORDS SUMMARY | 2024-04-26 13:22 | XMS_ITS | Encounter Summary ---
Author Organization [place] [address] Care Team Providers Care Fleet Salesperson Name Role Phone Belkys Bundy Primary Care Provider +1- [phone] Encounter Details Date Type Department Care Team (Late st Contact Info) Description 11/23/2022 Tele[place] [phone] Juanis Osullivan RT Social History Tobacco Use [...] 4:00 PM EDT Office [place] [address] Kira Thayer MD [facility] [address] [place] [address] documented as of this encounter Visit Diagnoses Not on filedocumented in this encounter Care Teams Fleet Salesperson Relationship Specialty Start Date End Date Belkys Bundy DO [address] [place], [place] [address] [address] PCP - General Family Medicine 03/21/19 documented as of this encounter
--- OUTSIDE RECORDS SUMMARY | 2024-04-26 13:22 | XMS_ITS | Encounter Summary ---
Author Organization [facility] Address [facility] [place] [address] Care Team Providers Care Graduate Advisor Name Role Phone Belkys Bundy DO Primary Care Provider +1- [phone] Encounter Details Date Type Department Care Team [...] 4:00 PM EDT Office [place] [address] Kira Thayer MD [facility] [place] [address] documented as of this encounter Visit Diagnoses Not on filedocumented in this encounter Care Teams Graduate Advisor Relationship Specialty Start Date End Date Belkys Bundy DO [address] [place] [address] PCP - General Family Medicine 03/21/19 documented as of this encounter
--- OUTSIDE RECORDS SUMMARY | 2024-04-26 13:22 | XMS_ITS | Encounter Summary ---
Author Organization [facility] [place] [address] Care Team Providers Care Weight And Balance Control Agent Name Role Phone Belkys Bundy Primary Care Provider +1- [phone] Reason for Referral * Rehabilitation (Routine) - Closed Specialty Diagnoses / Procedures Referred By Contact Referred To Contact Pulmonary Rehabilitation / Rehabilitation Diagnoses COPD, very severe Kira Thayer MD [facility] [place] [address] Referral ID Status Reason Start Date Expiration Date V isits Requested Visits Authorized [id number] Closed Evaluate and Treat 02/07/2023 08/06/2023 1 1 Encounter Details Date Type Department Care Team (Late st Contact Info) Description 02/07/2023 9:30 AM EDT [place] [address] Kira Thayer MD [facility] [place] [address] COPD, very severe; Supplemental oxygen dependent; Immunization [...] from the original note were not included. [facility] Section of Pulmonary and Critical Care [...] initial visit by the Transplant Team at [facility] for initial transplant assessment 12/2022; they identified need to be abstinent from nicotine for 6 months before moving forward with full transplant assessment. They will see her back in 6months. She reports this was a very positive visit. Met primarily with a host coordinator and learned a lot about the process. They are postponing any testing until she demonstrates 6 months nicotine-free. Mrs. Sanchez reports she is doing well! She is walking more, slowly but trying to increase this. She would like to redo pulm rehab now, [facility] would be closest program. She quit [...] Prior to Visit Medication Sig Dispense Refill ajsculuddpr-whaagklyohui-tnjqxccgzx (Trelegy Ellipta) 200-62.5-25 mcg Inhale 1 puff into the lungs daily. 28 each 11 predniSONE (Deltasone) 20 mg tablet TAKE TWO TABLETS BY MOUTH EVERY DAY NEEDED FOR COPD EXACERBATION; ALERT BLASTING WORKER AND PCP inhalational spacing device (Ricci Aerosol [place] Enhancer) Spacer .MEDSUPPLY levothyroxine (Synthroid) 100 mcg [...] tablet 11 fluticasone propionate (FLONASE) 50 mcg/actuation [place], Suspension atorvastatin (Lipitor) 20 mg Tablet cyclobenzaprine [...] pulmonary rehab, referral is being placed to [facility]. She has been disabled beginning around [...] move forward with lung transplant evaluation with [facility]; she will see them again around May-June, [...] pulm rehab referral placed, to go to [facility] - continue trelegy inhaler 200 daily, [...] day of visit. Kira Thayer MD [facility] PULMON[facility] AT [facility] [address] Dept: [phone] Loc: [phone] documented in this encounter Plan of Treatment Upcoming Encounters Date Type Department Care Team (Late st Contact Info) Description 08/27/2024 4:00 PM EDT [place] [address] Kira Thayer MD [facility] [place] [address] Scheduled Referrals Name Type Priority Associated Diagnoses [...] disorder documented in this encounter Care Teams Weight And Balance Control Agent Relationship Specialty Start Date End Date Belkys Bundy DO [address] [place] [address] PCP - General Family Medicine 03/21/19 documented as of this encounter
--- OUTSIDE RECORDS SUMMARY | 2024-04-26 13:22 | XMS_ITS | Encounter Summary ---
Author Organization [facility] [place] [address] Care Team Providers Care Insole Buffer Name Role Phone Belkys Bundy Primary Care Provider +1- [phone] Encounter Details Date Type Department Care Team (Late st Contact Info) Description 03/23/2024 [place] [phone] Emily Starr RN Social History Tobacco Use [...] 03/23/2024 2:10 PM EST Copied from CRM #[id number]. Topic: Specialty Dept CRMs - Generic Call [...] 4:00 PM EDT Office [place] [address] Kira Thayer MD [facility] [place] [address] documented as of this encounter Visit Diagnoses Not on filedocumented in this encounter Care Teams Insole Buffer Relationship Specialty Start Date End Date Belkys Bundy DO [address] [place] [address] PCP - General Family Medicine 03/21/19 documented as of this encounter
--- OUTSIDE RECORDS SUMMARY | 2024-04-26 13:22 | XMS_ITS | Encounter Summary ---
Author Organization [facility] Address [facility] [place] [address] Care Team Providers Care Cuff Cutter Name Role Phone Belkys Bundy DO Primary Care Provider +1- [phone] Encounter Details Date Type Department Care Team [...] 4:00 PM EDT [place] [address] Kira Thayer MD [facility] [place] [address] documented as of this encounter Visit Diagnoses Not on filedocumented in this encounter Care Teams Cuff Cutter Relationship Specialty Start Date End Date Belkys Bundy DO [address] [place] [address] PCP - General Family Medicine 03/21/19 documented as of this encounter
--- OUTSIDE RECORDS SUMMARY | 2024-04-26 13:22 | XMS_ITS | Encounter Summary ---
Author Organization [facility] [place] [address] Care Team Providers Care Wafer Fab Technician Name Role Phone Belkys Bundy Primary Care Provider +1- [phone] Reason for Referral * Consultation (Routine) - Closed Specialty Diagnoses / Procedures Referred By Rossy t Referred To Contact Diagnoses COPD, very severe Kira Thayer MD [facility] PULMONARY MEDICINE [place] [id number] Referral ID Status Reason Start Date Expiration Date V isits Requested Visits Authorized [id number] Closed Consult, Test & Treat 11/25/2022 05/24/2023 1 1 Encounter Details Date Type Department Care Team (Late st Contact Info) Description 11/22/2022 9:00 AM EDT Office Visit [place] [address] Kira Thayer MD [facility] [place] [address] COPD, very severe; Tobacco use; Supplemental oxygen [...] on the skin daily. 28 patch 5 lelzmxxkdux-dpehfdoqyvqn-jmudqbpqdq (Trelegy Ellipta) 200-62.5-25 mcg Inhale 1 puff into the lungs daily. 28 each 11 predniSONE (Deltasone) 20 mg tablet TAKE TWO TABLETS BY MOUTH EVERY DAY NEEDED FOR COPD EXACERBATION; ALERT HYDRO ELECTRIC STATION OPERATOR AND PCP inhalational spacing device (Ricci Aerosol [place] Enhancer) Spacer .MEDSUPPLY levothyroxine (Synthroid) 100 mcg [...] tablet 11 fluticasone propionate (FLONASE) 50 mcg/actuation [place], Suspension atorvastatin (Lipitor) 20 mg Tablet cyclobenzaprine [...] indicated for stable small pulm nodules seen 5079-3317. She has been smoking up to 1 [...] involve a referral to a center in [place], and that she needs to quit smoking before transplant would be an option. She is agreeable to a referral now. Referral letter written and referral order placed, to be faxed to [place] transplant center ([facility] pending insurance information.) Summary Recommendations: - continue [...] on day of visit. MD Omari Hogue [facility] PULMONOLOGY AT [facility] [address] Dept: [phone] Loc: [phone] documented in this encounter Plan of Treatment Upcoming Encounters Date Type Department Care Team (Late st Contact Info) Description 08/27/2024 4:00 PM EDT Office Visit [place] [address] Kira Thayer MD [facility] [place] [address] Scheduled Referrals Name Type Priority Associated Diagnoses Order Schedule Referral to Pulmonology Outpatient Referral Routine COPD, very severe Ordered: 11/25/2022 documented as of this encounter Procedures Procedure Name Priority Date/Time Associated Diagnosis Comments BLOOD GAS ARTERIAL ([facility]) Routine 11/22/2022 10:16 AM EDT documented in this encounter Results * (ABNORMAL) Blood Gas Arterial ([facility]) (11/22/2022 10:16 AM EDT) pH, Arterial 7.39 7.35 - 7.45 [facility] PCO2, Arterial 47(H) 35 - 45 mmHg [facility] PO2, Arterial 73(L) 85 - 104 mmHg [facility] Bicarbonate, Arterial 27.7(H) 20.0 - 26.0 mmol/L [facility] Base Excess, Arterial 2.7 -3.0 - 3.0 mmol/L [facility] Hgb Blood Gas 15.2 11.7 - 15.5 g/dL [facility] Oxyhemoglobin, Arterial 92.1(L) 94.0 - 97.0 % [facility] Carboxyhemoglob in, Arterial 2.9 % [facility] Comment: Nonsmokers: ??0.5-1.5% COHB Smokers: ??Variable, but usually less than 10% Toxic: 20 - 30% COHB Lethal: ??Greater than 60% COHB Methemoglobin, Arterial 0.3 <=1.5 % [facility] Na Whole Blood 140 135 - 145 mmol/L [facility] K Whole Blood 3.9 3.5 - 5.0 mmol/L [facility] Comment: Please note: ??Patients with WBC >100,000 may have falsely elevated Potassium levels. ??Contact the Clinical Chemistry Laboratory if there are any questions. ICa Whole Blood 1.18 1.15 - 1.33 mmol/L [facility] Comment: Note: ??Total bilirubin higher than 20 mg/dL may lead to falsely low ionized calcium. CL Whole Blood 103 98 - 107 mmol/L [facility] Gluc Whole Bld 79 65 - 199 mg/dL [facility] Comment:Diabetes: >=200 mg/d L plus symptoms. Lactate WB 0.9 0.5 - 2.2 mmol/L [facility] Blood Arterial Draw / Unknown 11/22/2022 10:16 AM EDT 11/22/2022 10:24 AM EDT Narrative Resulting Agency Comment Spec In Lab Kira Thayer MD CHEMISTRY ORDERABLES [facility] [place] [address] documented in this encounter Visit Diagnoses Diagnosis COPD, very severe Chronic airway obstruction, not elsewhere classified Tobacco use Tobacco use disorder Supplemental oxygen dependent Dependence on supplemental oxygen Hypercarbia Other dyspnea and respiratory abnormality documented in this encounter Care Teams Wafer Fab Technician Relationship Specialty Start Date End Date Belkys Bundy DO [address] [place] [address] PCP - General Family Medicine 03/21/19 documented as of this encounter
--- OUTSIDE RECORDS SUMMARY | 2024-04-26 13:22 | XMS_ITS | Encounter Summary ---
Author Organization [facility] Address [facility] [place] [address] Care Team Providers Care Parcel Post Delivery Name Role Phone Belkys Bundy DO Primary Care Provider +1- [phone] Encounter Details Date Type Department Care Team (Late st Contact Info) Description 07/26/2023 Notes [place] [address] Kira Thayer MD [facility] [place] [address] Social History Tobacco Use Types Packs/Day Years [...] 4:00 PM EDT [place] [address] Kira Thayer MD [facility] [place] [address] documented as of this encounter Visit Diagnoses Not on filedocumented in this encounter Care Teams Parcel Post Delivery Relationship Specialty Start Date End Date Belksy Bundy DO [address] [place] [address] PCP - General Family Medicine 03/21/19 documented as of this encounter
--- OUTSIDE RECORDS SUMMARY | 2024-04-26 13:22 | XMS_ITS | Encounter Summary ---
Author Organization [facility] [place] [address] Care Team Providers Care Hospitality Aide Name Role Phone Belkys Bundy Primary Care Provider +1- [phone] Encounter Details Date Type Department Care Team (Late st Contact Info) Description 03/22/2024 [place] [phone] Tasha Obrien, RN Social History Tobacco Use [...] 03/22/2024 8:37 AM EST Copied from [facility] #[id number]. Topic: Specialty Dept CRMs - Form Request [...] the dated needed for the paperwork from [place], but now know start date should be today 03/19/24 and end date 3 months from now. After completion please: Fax to: Suleiman's employer. Patient informed that completion of this request can take 5-7 business days. documented in this encounter Plan of Treatment Upcoming Encounters Date Type Department Care Team (Late st Contact Info) Description 08/27/2024 4:00 PM EDT [place] [address] Kira Thayer MD [facility] [place] [address] documented as of this encounter Visit Diagnoses Not on filedocumented in this encounter Care Teams Hospitality Aide Relationship Specialty Start Date End Date Belkys Bundy DO [address] [place] [address] PCP - General Family Medicine 03/21/19 documented as of this encounter
--- OUTSIDE RECORDS SUMMARY | 2024-04-26 13:22 | XMS_ITS | Encounter Summary ---
Author Organization [facility] [place] [address] Care Team Providers Care Planning Director Name Role Phone Belkys Bundy DO Primary Care Provider +1- [phone] Encounter Details Date Type Department Care Team (Late st Contact Info) Description 06/15/2023 Telephone [place] [address] Millicent Valles Social History Tobacco Use Types [...] - 06/15/2023 5:07 PM EST Copied from [facility] #[id number]. Topic: Specialty Dept CRMs - Appointment Needed [...] PM EDT Office [place] [address] Kira Thayer MD [facility] [place] [address] documented as of this encounter Visit Diagnoses Not on filedocumented in this encounter Care Teams Planning Director Relationship Specialty Start Date End Date Belkys Bundy DO [address] [place] [address] PCP - General Family Medicine 03/21/19 documented as of this encounter
--- OUTSIDE RECORDS SUMMARY | 2024-04-26 13:22 | XMS_ITS | Encounter Summary ---
[place] [address] Care Team Providers Care Motor Bus Driver Name Role Phone Belkys Bundy DO Primary Care Provider +1- [phone] Reason for Referral * Rehabilitation (Routine) - Authorized Specialty Diagnoses / Procedures Referred By Contact Referred To Contact Pulmonary Rehabilitation / Rehabilitation Diagnoses COPD, very severe Kira Thayer MD [facility] [place] [address] Referral ID Status Reason Start Date Expiration Date Visits Requested Visits Authorized [id number] Authorized Evaluate and Treat 02/27/2024 08/25/2024 36 36 Reason for Visit * Consultation (Routine) - Closed Specialty Diagnoses / Procedures Referred By Rossy levine Referred To Contact Pulmonology Diagnoses Solitary pulmonary nodule End stage COPD Dyspnea Emphysema, unspecified Other abnormalities of breathing Awaiting organ transplant status GEN PULM Patient of Kira Thayer Pulm clearance for transplant eBlkys Bundy DO [address] [place] [address] [facility] Pulmonology [address] [place] [phone] Referral ID Status Reason Start Date Expiration Date Visits Re quested Visits Authorized [id number] Closed 07/22/2023 07/21/2024 1 1 Encounter Details Date Type Department Care Team (Late st Contact Info) Description 02/27/2024 4:30 PM EST Office [place] [address] Kira Thayer MD [facility] [place] [address] COPD, very severe; Supplemental oxygen dependent; Cigarette [...] with anything specific. She got called to [facility] for transplantation in December, however the explanted [...] needs them inhalational spacing device (Ricci Aerosol [place] Enhancer) Spacer .MEDSUPPLY levothyroxine (Synthroid) 100 mcg [...] tablet 11 fluticasone propionate (FLONASE) 50 mcg/actuation [place], Suspension atorvastatin (Lipitor) 20 mg Tablet cyclobenzaprine [...] S or Z allele) CT chest 02/01/2024 ([facility]) report notes (images not available): IMPRESSION: Compared to CT chest dated July 01, 2023 1. Similar diffuse bronchial wall thickening. Similar emphysema. 2. Unchanged sub-6 mm pulmonary nodules. No new or enlarging nodules. Immunization History: Flu vaccine: received 2022 flu vaccine COVID-19 vaccine: has had primary and boosters Pneumovax: has had prevnar-20 Impression and Recommendations: Jessei Sanchez is a 53 y.o. woman with [...] is currently listed for lung transplantation at [facility]. She is ready to retry pulm rehab (wasn't able to do so due to scheduling after her last visit, but interested now.) New referral placed to [facility] pulm rehab. She is on supplemental O2; [...] Recommendations: - can call pulm rehab at [facility] to start, new referral also placed - [...] 02/29/2024, currently recovering in the ICU at [facility]. Given this, we will not send the bipap orders out as her new pulmonary status is likely to be much better and if all goes well she will not need bipap at home. [place] paperwork for her completed. MD Omari Hogue [facility] PULMONOLOGY AT [facility] [address] Dept: [phone] Loc: [phone] documented in this encounter Plan of Treatment Upcoming Encounters Date Type Department Care Team (Late st Contact Info) Description 08/27/2024 4:00 PM EDT Office [place] [address] Kira Thayer MD [facility] [place] [address] Scheduled Referrals Name Type Priority Associated Diagnoses [...] abnormality documented in this encounter Care Teams Motor Bus Driver Relationship Specialty Start Date End Date Belkys Bundy DO [address] [place] [address] PCP - General Family Medicine 03/21/19 documented as of this encounter
--- OUTSIDE RECORDS SUMMARY | 2024-04-26 13:22 | XMS_ITS | Encounter Summary ---
[place] [address] Care Team Providers Care Final Inspector Motorcyles Name Role Phone Belkys Bundy DO Primary Care Provider +1- [phone] Reason for Visit * Reason Onset Date Comments Pre Procedure Call 08/23/2023 Encounter Details Date Type Department Care Team (Late st Contact Info) Description 08/23/2023 [place] [phone] Emily Starr RN Pre Procedure Call Social [...] - 08/23/2023 1:17 PM EDT Copied from [facility] #[id number]. Topic: Specialty Dept CRMs - Generic Call >> August 18, 2023 2:30 PM Srea Santana wrote: Specialist: Kira Thayer MD Relationship (if other than patient-full name): Praveena Allred, Car Driver from [facility] Internal Medicine - Patients PCP's Office Reason for Call: Praveena Allred, Car Driver from [facility] Internal Medicine, Patients Provider called today wanting to know if Patients Wireless Sales Expert could give Patient clearance for a colonoscopy, which is required from [facility] in order for Patient to have a lung transplant. Praveena states that the lung transplant can not get schedule until Patient is cleared for a colonoscopy. documented in this encounter Plan of Treatment Upcoming Encounters Date Type Department Care Team (Late st Contact Info) Description 08/27/2024 4:00 PM EDT [place] [address] [address] [facility] [place] [address] documented as of this encounter Visit Diagnoses Not on filedocumented in this encounter Care Teams Final Inspector Motorcyles Relationship Specialty Start Date End Date Belkys Bundy DO [address] [place] [address] PCP - General Family Medicine 03/21/19 documented as of this encounter
--- OUTSIDE RECORDS SUMMARY | 2024-04-26 13:22 | XMS_ITS | Encounter Summary ---
[place] [address] Care Team Providers Care Hand Spinner Name Role Phone Belkys Bundy Primary Care Provider +1- [phone] Reason for Visit * Reason Onset Date Comments Oxygen Dependence 11/25/2022 Overnight Puls e Oximetry Testing Encounter Details Date Type Department Care Team (Late st Contact Info) Description 11/25/2022 [place] [phone] Emily Starr RN Oxygen Dependence (Overnight Pulse [...] signed by Dr. Thayer, to [facility]. Attached to this was the following items: Patient Demographics This covered the following items: Overnight on 2 LPM Supplemental O2 Fax submission confirmation time stamped for 11/25/2022 @ 5889. 6 pages with cover sheet. documented in this encounter Plan of Treatment Upcoming Encounters Date Type Department Care Team (Late st Contact Info) Description 08/27/2024 4:00 PM EDT [place] [address] Kira Thayer MD [facility] DR PULMONARY [place] [address] documented as of this encounter Visit Diagnoses Not on filedocumented in this encounter Care Teams Hand Spinner Relationship Specialty Start Date End Date Belkys Bundy DO [address] [place] [address] PCP - General Family Medicine 03/21/19 documented as of this encounter
--- OUTSIDE RECORDS SUMMARY | 2024-04-26 13:22 | XMS_ITS | Encounter Summary ---
Author Organization [facility] Address [facility] [place] [address] Care Team Providers Care Carburetor Rebuilder Name Role Phone Belkys Bundy Primary Care Provider +1- [phone] Reason for Visit * Reason Comments Medication Refill Trelegy Encounter Details Date Type Department Care Team (Late st Contact Info) Description 11/14/2023 [place] [address] Kira Thayer MD [facility] [place] [address] COPD, very severe Social History Tobacco Use [...] in medication list. PHARMACY NAME: Reggie Medeiros [facility] PHARMACY PHONE: [phone] Would patient like script sent directly to pharmacy? (Please put Yes or No) yes Would patient like paper script mailed to home address (Please put yes or No) no Caller/Patient aware of 1-2 business day process. documented in this encounter Plan of Treatment Upcoming Encounters Date Type Department Care Team (Late st Contact Info) Description 08/27/2024 4:00 PM EDT Office [place] [address] Kira Thayer MD [facility] [address] [place] [address] documented as of this encounter Visit Diagnoses Diagnosis COPD, very severe Chronic airway obstruction, not elsewhere classified documented in this encounter Care Teams Carburetor Rebuilder Relationship Specialty Start Date End Date Belkys Bundy DO [address] [place] [address] PCP - General Family Medicine 03/21/19 documented as of this encounter
--- OUTSIDE RECORDS SUMMARY | 2024-04-26 13:22 | XMS_ITS | Encounter Summary ---
[place] [address] Care Team Providers Care Facing Cutting Machine Operator Name Role Phone Belkys Bundy Virginie MYRICK Primary Care Provider +1- [phone] Reason for Referral * Consultation (Routine) - Authorized Specialty Diagnoses / Procedures Referred By Rossy levine Referred To Contact Gastroenterology Diagnoses Diarrhea, unspecified type Elevated alkaline phosphatase level Lung transplant candidate John Nieves MD [facility] [place] [address] [facility] [address] [place] [phone] Referral ID Status Reason Start Date Expiration Date Visits Requested Visits Authorized [id number] Authorized Consult, Test & Treat 09/01/2023 08/31/2024 [...] no documented anticoagulation use John Nieves MD [facility] [place] [address] [facility] [address] [place] [phone] Referral ID Status Reason Start Date Expiration Date V isits Requested Visits Authorized [id number] Closed Test Only 09/01/2023 08/31/2024 1 1 Encounter Details Date Type Department Care Team (Late st Contact Info) Description 09/01/2023 Orders [place] [address] John Nieves MD [facility] [place] [address] Lung transplant candidate (Primary Dx); Diarrhea, unspecified [...] 4:00 PM EDT Office [place] [address] Kira Thayer MD [facility] [place] [address] Scheduled Referrals Name Type Priority Associated Diagnoses [...] levels documented in this encounter Care Teams Facing Cutting Machine Operator Relationship Specialty Start Date End Date Belkys Bundy DO [address] [place] [address] PCP - General Family Medicine 03/21/19 documented as of this encounter
--- OUTSIDE RECORDS SUMMARY | 2024-04-26 13:22 | XMS_ITS | Encounter Summary ---
[place] [address] Care Team Providers Care Vice President Of Development Name Role Phone Belkys Bundy Virginie MYRICK Primary Care Provider +1- [phone] Reason for Referral * Diagnostic Test (Routine) - Closed Specialty Diagnoses / Procedures Referred By Contac t Referred To Contact Radiology Diagnoses Bacterial pneumonia Procedures CT Chest wo Contrast (Generic) Kira Thayer MD [facility] [place] [address] [facility] [place] [address] Referral ID Status Reason Start Date Expiration Date V isits Requested Visits Authorized [id number] Closed Specialty Service Requested 10/18/2022 04/20/2024 1 1 Reason for Visit * Diagnostic Test (Routine) - Closed Specialty Diagnoses / Procedures Referred By Contac t Referred To Contact Radiology Diagnoses Bacterial pneumonia Procedures CT Chest wo Contrast (Generic) Kira Thayer MD [facility] [place] [address] [facility] [place] [address] Referral ID Status Reason Start Date Expiration Date V isits Requested Visits Authorized [id number] Closed Specialty Service Requested 10/18/2022 04/20/2024 1 1 Encounter Details Date Type Department Care Team (Latest Contact Info) Description 10/25/2022 7:48 AM EDT - 10/25/2022 11:59 PM EDT Hospital Encounter [facility] [place] [address] Kira Thayer MD [facility] [place] [address] Bacterial pneumonia Discharge Disposition: Home Social History [...] End Date inhalational spacing device (Ricci Aerosol [place] Enhancer) Spacer .MEDSUPPLY 02/01/2020 levothyroxine (Synthroid) 100 [...] 11 07/16/2020 fluticasone propionate (FLONASE) 50 mcg/actuation [place], Suspension 02/01/2020 atorvastatin (Lipitor) 20 mg Tablet [...] mg tablet 04/12/2013 predniSONE (Deltasone) 20 mg tabletIndications:AVIONICS TECHNICIAN D, very severe Take 1 tablet by [...] EVERY DAY NEEDED FOR COPD EXACERBATION; ALERT R AND D LAB TECHNICIAN AND PCP 09/01/2022 06/20/2023 potassium chloride (KLOR-CON) [...] 4:00 PM EDT Office [place] [address] Kira Thayer MD [facility] [place] [address] documented as of this encounter Procedures Procedure [...] who have questions please contact the health director of critical care that requested your imaging first. ? Electronically signed by: Raheem Morin MD, [facility] ??([phone]), at 10/25/2022 10:54 AM Narrative 10/25/2022 10:54 [...] patients who have questions please contactthe health director of critical care that requested your imaging first. Electronically signed by: Raheem Morin MD, [facility]([phone]), at 10/25/2022 10:54 AM Kira Thayer MD IMG CT ORDERABLES documented in this encounter Visit Diagnoses Diagnosis Bacterial pneumonia Bacterial pneumonia, unspecified documented in this encounter Care Teams Vice President Of Development Relationship Specialty Start Date End Date Belkys Bundy DO [address] [place] [address] PCP - General Family Medicine 03/21/19 documented as of this encounter
--- OUTSIDE RECORDS SUMMARY | 2024-04-26 13:22 | XMS_ITS | Encounter Summary ---
Author Organization [facility] [place] [address] Care Team Providers Care Bible Reader Name Role Phone Belkys Bundy Primary Care Provider +1- [phone] Encounter Details Date Type Department Care Team (Late st Contact Info) Description 11/22/2022 [place] [phone] Juanis Osullivan RT Social History Tobacco Use [...] EDT [place] [address] Kira Thayer MD [facility] [place] [address] documented as of this encounter Visit Diagnoses Not on filedocumented in this encounter Care Teams Bible Reader Relationship Specialty Start Date End Date Belkys Bundy DO [facility] [place] [address] PCP - General Family Medicine 03/21/19 documented as of this encounter
--- OUTSIDE RECORDS SUMMARY | 2024-04-26 13:22 | XMS_ITS | Encounter Summary ---
[place] [address] Care Team Providers Care Dealer Compliance Representative Name Role Phone Belkys Bundy DO Primary Care Provider +1- [phone] Reason for Visit * Reason Onset Date Comments Lung Transplant Pre-evaluation 11/25/2022 Encounter Details Date Type Department Care Team (Late st Contact Info) Description 11/25/2022 Tele[place] [address] Emily Starr RN Lung Transplant Pre-evaluation Social [...] Pre-transplant referral, signed by Dr. Thayer, to [facility] Transplant Team. Attached to this was the following items: Introduction letter from Dr. Thayer, Referral form, Patient Demographics, Office Visit Notes dated 11/22/2022, 10/18/2022 PFTs dated 10/18/2022, 09/13/2022 Fax submission confirmation time stamped for 11/25/2022 @ 4966. 80 pages with cover sheet. documented in this encounter Plan of Treatment Upcoming Encounters Date Type Department Care Team (Late st Contact Info) Description 08/27/2024 4:00 PM EDT Office [place] [address] Kira Thayer MD [facility] [place] [address] documented as of this encounter Visit Diagnoses Not on filedocumented in this encounter Care Teams Dealer Compliance Representative Relationship Specialty Start Date End Date Belkys Bundy DO [address] [place] [address] PCP - General Family Medicine 03/21/19 documented as of this encounter
--- OUTSIDE RECORDS SUMMARY | 2024-04-26 13:22 | XMS_ITS | Encounter Summary ---
Author Organization [facility] Address [facility] [place] [address] Care Team Providers Care Environmental Engineering Assistant Name Role Phone Belkys Bundy DO Primary Care Provider +1- [phone] Encounter Details Date Type Department Care Team [...] 4:00 PM EDT Office [place] [address] Kira Thayer MD [facility] [place] [address] documented as of this encounter Visit Diagnoses Not on filedocumented in this encounter Care Teams Environmental Engineering Assistant Relationship Specialty Start Date End Date Belkys Bundy DO [address] [place] [address] PCP - General Family Medicine 03/21/19 documented as of this encounter
--- OUTSIDE RECORDS SUMMARY | 2024-04-26 13:23 | XMS_ITS | Encounter Summary ---
[place] [address] Care Team Providers Care Manager Epic Name Role Phone Belkys Bundy Primary Care Provider +1- [phone] Reason for Visit * Reason Onset Date Comments Medication Refill 07/26/2022 Encounter Details Date Type Department Care Team (Late st Contact Info) Description 07/26/2022 [place] [address] Emily Starr RN COPD, very severe Social [...] 8:50 PM Thanks Jessie Sanchez to P [facility] Pulmonology Nurse (supporting Kira Thayer MD) SL ?? 8:[address] Thayer I need my trilogy but my pharmacy has changed to [facility] in [place] http [email or web address] documented in this encounter Plan of Treatment Upcoming Encounters Date Type Department Care Team (Late st Contact Info) Description 08/27/2024 4:00 PM EDT Office [place] [address] Kira Thayer MD [facility] [place] [address] documented as of this encounter Visit Diagnoses Diagnosis COPD, very severe Chronic airway obstruction, not elsewhere classified documented in this encounter Care Teams Manager Epic Relationship Specialty Start Date End Date Belkys Bundy DO [address] [place] [address] PCP - General Family Medicine 03/21/19 documented as of this encounter
--- OUTSIDE RECORDS SUMMARY | 2024-04-26 13:23 | XMS_ITS | Encounter Summary ---
[place] [address] Care Team Providers Care Finding Fastener Name Role Phone Belkys Bundy Primary Care Provider +1- [phone] Reason for Visit * Reason Onset Date Comments Other 10/01/2021 Trelegy Ellipta Encounter Details Date Type Department Care Team (Late [facility]) Description 10/01/2021 [place] [phone] Emily Starr RN Other (Trelegy Ellipta) Social [...] 1:27 PM EDT RN called Bettina in [facility] to confirm patient was able to get Trelegy ellipta. RN was notified that patient's next dispense was ready for pepper picker. documented in this encounter Plan of Treatment Upcoming Encounters Date Type Department Care Team (Late st Contact Info) Description 08/27/2024 4:00 PM EDT Office [place] [address] Kira Thayer MD [facility] [place] [address] documented as of this encounter Visit Diagnoses Not on filedocumented in this encounter Care Teams Finding Fastener Relationship Specialty Start Date End Date Belkys Bundy DO [address] [place] [address] PCP - General Family Medicine 03/21/19 documented as of this encounter
--- OUTSIDE RECORDS SUMMARY | 2024-04-26 13:23 | XMS_ITS | Encounter Summary ---
[place] [address] Care Team Providers Care Air Pollution Inspector Name Role Phone Belkys Bundy Primary Care Provider +1- [phone] Encounter Details Date Type Department Care Team (Late st Contact Info) Description 03/30/2022 Telephone [place] [phone] Carolyn Henry RMA Social History Tobacco Use [...] PM EDT Office Visit [place] [address] Kira Thayer MD [facility] [place] [address] documented as of this encounter Visit Diagnoses Not on filedocumented in this encounter Care Teams Air Pollution Inspector Relationship Specialty Start Date End Date Belkys Bundy DO [address] [place] [address] [place] [address] PCP - General Family Medicine 03/21/19 documented as of this encounter
--- OUTSIDE RECORDS SUMMARY | 2024-04-26 13:23 | XMS_ITS | Encounter Summary ---
Author Organization [facility] [place] [address] Care Team Providers Care Grab Driver Name Role Phone Belkys Bundy DO Primary Care Provider +1- [phone] Encounter Details Date Type Department Care Team (Late st Contact Info) Description 08/21/2021 Ancillary Procedure Radiology Library at [facility] [place] [address] Belkys Bundy, DO [address] [place], [place] [id number] Social History Tobacco Use Types Packs/Day Years [...] 4:00 PM EDT Office Visit Pulmonology at [facility] [place] [address] Kira Thayer MD [facility] DR PULMONARY MEDICINE [place], [place] [address] documented as of this encounter Procedures Procedure Name Priority Date/Time Associated Diagnosis Comments FILM LIBRARY STORAGE ONLY DX CHEST Routine 08/21/2021 12:00 AM EDT documented in this encounter Results * Film Library- Storage Only DX Chest (08/21/2021 12:00 AM EDT) Narrative [facility] - 09/01/2021 11:25 AM EDT This exam is auto-finalizing. It's purpose is for storage only. Belkys Bundy DO G FILM LIBRARY O RDERABLES Performing Organization Address City/State/[facility] Co de Phone Number [place], [place] documented in this encounter Visit Diagnoses Not on filedocumented in this encounter Care Teams Grab Driver Relationship Specialty Start Date End Date Belkys Bundy DO [address] [place] [address] PCP - General Family Medicine 03/21/19 documented as of this encounter
--- OUTSIDE RECORDS SUMMARY | 2024-04-26 13:23 | XMS_ITS | Encounter Summary ---
Author Organization [facility] [place] [address] Care Team Providers Care Distribution Specialist Name Role Phone OliverLizeth mooresea Rachel DO Primary Care Provider +1- [phone] Encounter Details Date Type Department Care Team (Late st Contact Info) Description 05/20/2021 Telephone [place] [address] Millicent Valles Social History Tobacco Use Types [...] 4:00 PM EDT Office [place] [address] Kira Thayer MD [facility] [place] [address] documented as of this encounter Visit Diagnoses Not on filedocumented in this encounter Care Teams Distribution Specialist Relationship Specialty Start Date End Date Belkys Bundy DO [address] [place] [address] PCP - General Family Medicine 03/21/19 documented as of this encounter
--- OUTSIDE RECORDS SUMMARY | 2024-04-26 13:23 | XMS_ITS | Encounter Summary ---
Author Organization [facility] Address [facility] [place] [address] Care Team Providers Care Beam Worker Name Role Phone Belkys Bundy Primary Care Provider +1- [phone] Encounter Details Date Type Department Care Team (Late st Contact Info) Description 09/13/2022 8:00 AM EDT [place] [address] Kira Thayer MD [facility] [place] [address] COPD, very severe; COPD with exacerbation Social [...] week. Take a sputum sample to [facility] lab. documented in this encounter Progress Notes * Kira Thayer MD - 09/13/2022 8:00 AM EDT Images from the original note were not included. [facility] Section of Pulmonary and Critical Care [...] EVERY DAY NEEDED FOR COPD EXACERBATION; ALERT BRIM POUNCING MACHINE OPERATOR AND PCP [id number] (Trelegy Ellipta) 200-62.5-25 mcg Inhale 1 puff into the lungs daily. 28 each 11 inhalational spacing device (Ricci Aerosol [place] Enhancer) Spacer .MEDSUPPLY levothyroxine (Synthroid) 100 mcg [...] tablet 11 fluticasone propionate (FLONASE) 50 mcg/actuation [place], Suspension nicotine (NICODERM CQ) 21 mg/24 hr [...] involve a referral to a center in [place], and that she needs to quit smoking [...] on day of visit. MD Omari Hogue [facility] PULMON[facility]Y AT [facility] [address] Dept: [phone] Loc: [phone] documented in this encounter Plan of Treatment Upcoming Encounters Date Type Department Care Team (Late st Contact Info) Description 08/27/2024 4:00 PM EDT Office Visit Pulmonology [place] [address] Kira Thayer MD [facility] [place] [address] documented as of this encounter Procedures Procedure [...] / FVC LLN 69 % COMPAS PFT [id number] Actual Pre-BD 0.23 L/s COMPAS PFT KAW73-23 Pre-BD % of Predicted 8 % COMPAS PFT WHI76-54 Predicted 2.71 L/s COMPAS PFT GGW80-08 Pre-BD Z-Score -4.49 COMPAS PFT DLCO Hb [...] Thayer MD PFT ORDERABLES Performing Organization Address City/[facility] Co de Phone Number COMPAS PFT * AFB culture (09/13/2022 8:43 AM EDT) Acid Fast Bacilli Culture No Acid Fast Bacilli isolated If active tuberculosis is suspected, the patient should be on AIRBORNE PRECAUTIONS. Call Infection Prevention for assistance if needed. [facility] Acid Fast Stain No Acid Fast Bacilli seen [facility] Sputum Expectorated 09/14/19 8:43 AM EDT 09/13/2022 9:13 AM EDT Narrative Resulting Agency Comment Spec In Lab Kira Thayer MD MICROBIOLOGY - GENER AL ORDERABLES Performing Organization Address [facility] Co de Phone Number [facility] [place] [address] * (ABNORMAL) Lower Respiratory Culture (09/13/2022 8:43 AM EDT) Lower Respiratory Culture Many mixed bacterial morphotypes suggestive of normal upper respiratory roxanne(A) [facility] Gram Stain Many Neutrophils seen Moderate squamous epithelial cells seen Many Gram Positive Cocci seen (A) [facility] Organism Gram Positive Cocci(A) [facility] Sputum Expectorated 09/14/19 8:43 AM EDT 09/13/2022 9:12 AM EDT Narrative Resulting Agency Comment Spec In Lab Kira Thayer MD MICROBIOLOGY - GENER AL ORDERABLES Performing Organization Address [facility] Co de Phone Number [facility] [place] [address] documented in this encounter Visit Diagnoses Diagnosis COPD, very severe Chronic airway obstruction, not elsewhere classified COPD with exacerbation Obstructive chronic bronchitis with exacerbation COPD, very severe Chronic airway obstruction, not elsewhere classified documented in this encounter Care Teams Beam Worker Relationship Specialty Start Date End Date Belkys Bundy DO [address] [place] [address] PCP - General Family Medicine 03/21/19 documented as of this encounter
--- OUTSIDE RECORDS SUMMARY | 2024-04-26 13:23 | XMS_ITS | Encounter Summary ---
Author Organization Formerly [facility] [place] [address] Care Team Providers Care Um Rn Name Role Phone Belkys Bundy DO Primary Care Provider +1- [phone] Encounter Details Date Type Department Care Team (Late st Contact Info) Description 09/20/2022 Telephone [place] [address] Millicent Valles Social History Tobacco [...] 4:00 PM EDT Office [place] [address] Kira Thayer MD [facility] [place] [address] documented as of this encounter Visit Diagnoses Not on filedocumented in this encounter Care Teams Um Rn Relationship Specialty Start Date End Date Belkys Bundy DO [address] [place] [address] PCP - General Family Medicine 03/21/19 documented as of this encounter
--- OUTSIDE RECORDS SUMMARY | 2024-04-26 13:23 | XMS_ITS | Encounter Summary ---
Author Organization Formerly [facility] [place] [address] Care Team Providers Care Reinsurance Accountant Name Role Phone Belkys Bundy DO Primary Care Provider +1- [phone] Encounter Details Date Type Department Care Team (Late st Contact Info) Description 07/05/2022 [place]phone [place] [address] Millicent Valles Social History Tobacco [...] 4:00 PM EDT Office [place] [address] Kira Thayer MD [facility] [place] [address] documented as of this encounter Visit Diagnoses Not on filedocumented in this encounter Care Teams Reinsurance Accountant Relationship Specialty Start Date End Date Belkys Bundy DO [address] [place] [address] PCP - General Family Medicine 03/21/19 documented as of this encounter
--- OUTSIDE RECORDS SUMMARY | 2024-04-26 13:23 | XMS_ITS | Encounter Summary ---
[place] [address] Care Team Providers Care Recreation Therapy Director Name Role Phone Belkys Bundy Primary Care Provider +1- [phone] Encounter Details Date Type Department Care Team (Latest Contact Info) Description 10/18/2022 7:22 AM EDT - 10/18/2022 11:59 PM EDT Hospital [place] [address] COPD, very severe Discharge Disposition: Home Social [...] End Date inhalational spacing device (Ricci Aerosol [place] Enhancer) Spacer .MEDSUPPLY 02/01/2020 levothyroxine (Synthroid) 100 [...] 11 07/16/2020 fluticasone propionate (FLONASE) 50 mcg/actuation [place], Suspension 02/01/2020 atorvastatin (Lipitor) 20 mg Tablet [...] mg tablet 04/12/2013 predniSONE (Deltasone) 20 mg tabletIndications:SEEING EYE DOG TRAINER D, very severe Take 1 tablet by [...] EVERY DAY NEEDED FOR COPD EXACERBATION; ALERT GOLD TOOLER AND PCP 09/01/2022 06/20/2023 potassium chloride (KLOR-CON) [...] 4:00 PM EDT [place] [address] Kira Thayer MD [facility] [place] [address] documented as of this encounter Procedures Procedure [...] / FVC LLN 69 % COMPAS PFT [id number] Actual Pre-BD 0.23 L/s COMPAS PFT [id number] Pre-BD % of Predicted 8 % COMPAS PFT LAC16-21 Predicted 2.71 L/s COMPAS PFT [id number] Pre-BD Z-Score -4.49 COMPAS PFT DLCO Hb [...] classified documented in this encounter Care Teams Recreation Therapy Director Relationship Specialty Start Date End Date Belkys Bundy DO [address] [place] [address] PCP - General Family Medicine 03/21/19 documented as of this encounter
--- OUTSIDE RECORDS SUMMARY | 2024-04-26 13:23 | XMS_ITS | Encounter Summary ---
Author Organization [facility] [place] [address] Care Team Providers Care Operations/Dispatch Name Role Phone OliverLizeth mooresea Rachel DO Primary Care Provider +1- [phone] Encounter Details Date Type Department Care Team (Late st Contact Info) Description 09/23/2021 Telephone [place] [address] Millicent Valles Social History Tobacco Use Types [...] Office [place] [address] Kira Thayer MD [facility] [place] [address] documented as of this encounter Visit Diagnoses Not on filedocumented in this encounter Care Teams Operations/Dispatch Relationship Specialty Start Date End Date Belkys Bundy DO [address] [place] [address] PCP - General Family Medicine 03/21/19 documented as of this encounter
--- OUTSIDE RECORDS SUMMARY | 2024-04-26 13:23 | XMS_ITS | Encounter Summary ---
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 RN relayed patient concerns of faulty equipment. Katey confirmed patient was serviced by [facility], and would connect with their support team to rectify problems with machine with patient. * Telephone Encounter - Emily Starr RN - 09/13/2022 12:50 PM EDT Faxed completed Lab Order Requisition, signed by Dr. Thayer, to [facility]. Attached to this was the following items: Patient Demographics This covered the following items: Lower Respiratory Culture AFB Culture Fax submission confirmation time stamped for 09/13/2022 @ 1248. 5 pages with cover sheet. documented in this encounter Plan of Treatment Upcoming Encounters Date Type Department Care Team (Late st Contact Info) Description 08/27/2024 4:00 PM EDT Office [place] [address] Kira Thayer MD [facility] [place] [address] documented as of this encounter Visit Diagnoses Not on filedocumented in this encounter Care Teams Waiter/Waitress Take Out Relationship Specialty Start Date End Date Belkys Bundy DO [address] [place] [address] PCP - General Family Medicine 03/21/19 documented as of this encounter
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
--- OUTSIDE RECORDS SUMMARY | 2024-04-26 13:23 | XMS_ITS | Encounter Summary ---
Author Organization [facility] [place] [address] Care Team Providers Care Spare Hand Name Role Phone Belkys Bundy DO Primary Care Provider +1- [phone] Reason for Visit * Reason Onset Date Comments Medication Refill 06/28/2022 Troy hawthorne Encounter Details Date Type Department Care Team (Late st Contact Info) Description 06/28/2022 [place] [address] Kira Thayer MD [facility] [place] [address] COPD, very severe Social History Tobacco Use [...] 4:00 PM EDT [place] [address] Kira Thayer MD [facility] [place] [address] documented as of this encounter Visit Diagnoses Diagnosis COPD, very severe Chronic airway obstruction, not elsewhere classified documented in this encounter Care Teams Spare Hand Relationship Specialty Start Date End Date Belkys Bundy DO [address] [place] [address] PCP - General Family Medicine 03/21/19 documented as of this encounter
--- OUTSIDE RECORDS SUMMARY | 2024-04-26 13:23 | XMS_ITS | Encounter Summary ---
Author Organization [facility] [place] [address] Care Team Providers Care Metal Worker Name Role Phone Belkys Bundy Primary Care Provider +1- [phone] Encounter Details Date Type Department Care Team (Late st Contact Info) Description 09/09/2021 8:30 AM EDT Office [place] [address] Juanis Osullivan, RT COPD, very severe Social [...] PM EDT Office [place] [address] Kira Thayer MD [facility] [place] [address] documented as of this encounter Visit Diagnoses Diagnosis COPD, very severe Chronic airway obstruction, not elsewhere classified documented in this encounter Care Teams Metal Worker Relationship Specialty Start Date End Date Belkys Bundy DO [address] [place] [address] PCP - General Family Medicine 03/21/19 documented as of this encounter
--- OUTSIDE RECORDS SUMMARY | 2024-04-26 13:23 | XMS_ITS | Encounter Summary ---
Author Organization [facility] [place] [address] Care Team Providers Care Pipe Installer Name Role Phone Belkys Bundy DO Primary Care Provider +1- [phone] Encounter Details Date Type Department Care Team (Late st Contact Info) Description 08/05/2022 Telephone [place] [address] Millicent Valles Social History Tobacco [...] 4:00 PM EDT Office [place] [address] Kira Thayer MD [facility] [place] [address] documented as of this encounter Visit Diagnoses Not on filedocumented in this encounter Care Teams Pipe Installer Relationship Specialty Start Date End Date Belkys Bundy DO [address] [place] [address] PCP - General Family Medicine 03/21/19 documented as of this encounter
--- OUTSIDE RECORDS SUMMARY | 2024-04-26 13:23 | XMS_ITS | Encounter Summary ---
Author Organization [facility] [place] [address] Care Team Providers Care Charge Account Identification Clerk Name Role Phone Belkys Bundy DO Primary Care Provider +1- [phone] Reason for Visit * Reason Onset Date Comments Medication Refill 04/17/2021 Encounter Details Date Type Department Care Team (Late st Contact Info) Description 04/17/2021 [place] [address] Emily Starr RN COPD, very severe Social [...] 4:00 PM EDT Office [place] [address] Kira Thayer MD [facility] [address] [place] [address] documented as of this encounter Visit Diagnoses Diagnosis COPD, very severe Chronic airway obstruction, not elsewhere classified documented in this encounter Care Teams Charge Account Identification Clerk Relationship Specialty Start Date End Date Belkys Bundy DO [address] [place] [address] PCP - General Family Medicine 03/21/19 documented as of this encounter
--- OUTSIDE RECORDS SUMMARY | 2024-04-26 13:23 | XMS_ITS | Encounter Summary ---
[place] [address] Care Team Providers Care Block Greaser Name Role Phone Belkys Bundy Primary Care Provider +1- [phone] Reason for Visit * Reason Onset Date Comments Disability Paperwork 08/05/2022 Encounter Details Date Type Department Care Team (Late st Contact Info) Description 08/05/2022 Telephone [place] [address] Emily Starr RN Disability Paperwork Social History [...] filled and signed by Dr. Thayer to [facility]. Fax submission confirmation time stamped for 08/05/2022 @ 8295. 4 pages with coversheet. Mailed copy of original paperwork to patient's address on file. Sent copy to scanning for inclusionto patient records. documented in this encounter Plan of Treatment Upcoming Encounters Date Type Department Care Team (Late st Contact Info) Description 08/27/2024 4:00 PM EDT Office [place] [address] Kira Thayer MD [facility] [place] [address] documented as of this encounter Visit Diagnoses Not on filedocumented in this encounter Care Teams Block Greaser Relationship Specialty Start Date End Date Belkys Bundy DO [address] [place] [address] PCP - General Family Medicine 03/21/19 documented as of this encounter
--- OUTSIDE RECORDS SUMMARY | 2024-04-26 13:23 | XMS_ITS | Encounter Summary ---
Author Organization [facility] [address] Care Team Providers Care Security Installation Technician Name Role Phone Belkys Bundy DO Primary Care Provider +1- [phone] Reason for Visit * Reason Onset Date Comments Other 09/01/2021 Received ER note s and CXR results from [facility] for dates of service 08/21/2021-08/25/2021. Will send message to Dr. Thayer. Encounter Details Date Type Department Care Team (Late st Contact Info) Description 09/01/2021 [place] [address] Elise Murphy RN Other (Received ER notes and CXR results from [facility] for dates of service 08/21/2021-08/25/2021. Will send [...] 09/01/2021 9:11 AM EDT I have called [facility] medical records to request for pt's ER notes and CXR results and images. MALACHI Staley, RN Department of Pulmonary 5C, [facility] Pager: [phone] documented in this encounter Plan of Treatment Upcoming Encounters Date Type Department Care Team (Late st Contact Info) Description 08/27/2024 4:00 PM EDT [place] [address] Kira Thayer MD [facility] [place] [address] documented as of this encounter Visit Diagnoses Not on filedocumented in this encounter Care Teams Security Installation Technician Relationship Specialty Start Date End Date Belkys Bundy DO [address] [place] [address] PCP - General Family Medicine 03/21/19 documented as of this encounter
--- OUTSIDE RECORDS SUMMARY | 2024-04-26 13:23 | XMS_ITS | Encounter Summary ---
Author Organization [facility] [place] [address] Care Team Providers Care Seamark Advanced Operator Maintainer Name Role Phone Belkys Bundy DO Primary Care Provider +1- [phone] Encounter Details Date Type Department Care Team (Late st Contact Info) Description 08/04/2022 Tele[place] [address] Millicent Valles Social History Tobacco Use Types [...] 4:00 PM EDT Office [place] [address] Kira Thayer MD [facility] [place] [address] documented as of this encounter Visit Diagnoses Not on filedocumented in this encounter Care Teams Seamark Advanced Operator Maintainer Relationship Specialty Start Date End Date Belkys Bundy DO [address] [place] [address] PCP - General Family Medicine 03/21/19 documented as of this encounter
--- OUTSIDE RECORDS SUMMARY | 2024-04-26 13:23 | XMS_ITS | Encounter Summary ---
Author Organization [facility] [place] [address] Care Team Providers Care Glassware Selector Name Role Phone Belkys Bundy DO Primary Care Provider +1- [phone] Encounter Details Date Type Department Care Team [...] 4:00 PM EDT Office [place] [address] Kira Thayer MD [facility] [place] [address] documented as of this encounter Visit Diagnoses Not on filedocumented in this encounter Care Teams Glassware Selector Relationship Specialty Start Date End Date Belkys Bundy DO [address] [place], [place] [address] PCP - General Family Medicine 03/21/19 documented as of this encounter
--- OUTSIDE RECORDS SUMMARY | 2024-04-26 13:23 | XMS_ITS | Encounter Summary ---
Author Organization [facility] [place] [address] Care Team Providers Care Commissary Helper Name Role Phone Belkys Bundy Primary Care Provider +1- [phone] Encounter Details Date Type Department Care Team (Latest Contact Info) Description 08/05/2022 3:00 PM EDT TH Visit (TeleHealth) [place] [address] Kira Thayer MD [facility] [place] [address] COPD, very severe; Supplemental oxygen dependent; Tobacco [...] agrees to continue. The patient is in [place]. Reason for Evaluation: Ms. Jessie Sanchez returns [...] for follow-up. Chest CT was done at [facility] a couple weeks ago, and [...] due to dyspnea. She was working at [employer]. She thinks she stopped working in 2012. [...] to Visit Medication Sig Dispense Refill ??? ljjkxwqrgoi-ozxslbaouzgj-mbnwpydzex (Trelegy Ellipta) 200-62.5-25 mcg Inhale 1 puff into the lungs daily. 28 each 11 ??? inhalational spacing device (Ricci Aerosol [place] Enhancer) Spacer .MEDSUPPLY ??? levothyroxine (Synthroid) 100 [...] 11 ??? fluticasone propionate (FLONASE) 50 mcg/actuation [place], Suspension ??? nicotine (NICODERM CQ) 21 mg/24 [...] involve a referral to a center in [place], and that she needs to quit smoking [...] on day of visit. Kira Thayer MD [facility] PULMONOLOGY AT [facility] [address] Dept: [phone] Loc: [phone] documented in this encounter Plan of Treatment Upcoming Encounters Date Type Department Care Team (Late st Contact Info) Description 08/27/2024 4:00 PM EDT Office [place] [address] Kira Thayer MD [facility] [place] [address] documented as of this encounter Visit Diagnoses Diagnosis COPD, very severe Chronic airway obstruction, not elsewhere classified Supplemental oxygen dependent Dependence on supplemental oxygen Tobacco use Tobacco use disorder documented in this encounter Care Teams Commissary Helper Relationship Specialty Start Date End Date Belkys Bundy DO [address] [place] [address] PCP - General Family Medicine 03/21/19 documented as of this encounter
--- OUTSIDE RECORDS SUMMARY | 2024-04-26 13:23 | XMS_ITS | Encounter Summary ---
Author Organization [facility] Address [facility] [place] [address] Care Team Providers Care Knitter Hand Name Role Phone Belkys Bundy Primary Care Provider +1- [phone] Encounter Details Date Type Department Care Team (Late st Contact Info) Description 09/09/2021 9:00 AM EDT [place] [address] Kira Thayer MD [facility] [place] [address] COPD, very severe; Supplemental oxygen dependent; Cigarette [...] the original note were not included. [facility] Section of Pulmonary and Critical Care [...] Refill ??? inhalational spacing device (Ricci Aerosol [place] Enhancer) Spacer .MEDSUPPLY ??? levothyroxine (Synthroid) 100 mcg Tablet Take 100 mcg by mouth nightly. ??? tbicqypuwkk-mijtqeyuy-gbdcyyao (Trelegy Ellipta) 200-62.5-25 mcg Disk with Device [...] 11 ??? fluticasone propionate (FLONASE) 50 mcg/actuation [place], Suspension ??? atorvastatin (Lipitor) 20 mg Tablet [...] involve a referral to a center in [place]. Summary Recommendations: - continue trelegy inhaler 200 [...] of visit. Kira Thayer MD [facility] PULMONOLOGY AT [facility] [address] Dept: [phone] Loc: [phone] documented in this encounter Plan of Treatment Upcoming Encounters Date Type Department Care Team (Late st Contact Info) Description 08/27/2024 4:00 PM EDT [place] [address] Kira Thayer MD [facility] [place] [address] documented as of this encounter Results * [...] / FVC LLN 69 % COMPAS PFT XAW21-34 Actual Pre-BD 0.30 L/s COMPAS PFT VAN78-37 Pre-BD % of Predicted 11 % COMPAS PFT ARH71-70 Predicted 2.74 L/s COMPAS PFT BPP15-29 Pre-BD Z-Score -4.27 COMPAS PFT DLCO Hb [...] Predicted 4.30 mL/min/mmHg /L COMPAS PFT [facility] - 03/31/2022 8:40 AM EST FINDINGS: [...] classified documented in this encounter Care Teams Knitter Hand Relationship Specialty Start Date End Date Belkys Bundy DO [address] [facility] [place] [address] PCP - General Family Medicine 03/21/19 documented as of this encounter
--- OUTSIDE RECORDS SUMMARY | 2024-04-26 13:23 | XMS_ITS | Encounter Summary ---
Author Organization [facility] [place] [address] Care Team Providers Care Herb Counselor Name Role Phone Belkys Bundy Primary Care Provider +1- [phone] Encounter Details Date Type Department Care Team (Late st Contact Info) Description 07/08/2021 Telephone [place] [address] Juanis Osullivan, RT Social History Tobacco Use [...] 4:00 PM EDT Office [place] [address] Kira Mejia MD [facility] [address] [place] [address] documented as of this encounter Visit Diagnoses Not on filedocumented in this encounter Care Teams Herb Counselor Relationship Specialty Start Date End Date Belkys Bundy DO [address] [place] [address] PCP - General Family Medicine 03/21/19 documented as of this encounter
--- OUTSIDE RECORDS SUMMARY | 2024-04-26 13:23 | XMS_ITS | Encounter Summary ---
Author Organization [facility] [place] [address] Care Team Providers Care Research Staff Member Name Role Phone AnaBelkys moise Primary Care Provider +1- [phone] Encounter Details Date Type Department Care Team (Late st Contact Info) Description 11/27/2021 [place] [address] Katie Donato Social History Tobacco Use Types [...] 4:00 PM EDT [place] [address] [facility] [place] [address] documented as of this encounter Visit Diagnoses Not on filedocumented in this encounter Care Teams Research Staff Member Relationship Specialty Start Date End Date Belkys Bundy DO [address] [place] [address] PCP - General Family Medicine 03/21/19 documented as of this encounter
--- OUTSIDE RECORDS SUMMARY | 2024-04-26 13:23 | XMS_ITS | Encounter Summary ---
Author Organization [facility] [place] [address] Care Team Providers Care Financial Reporting Specialist Name Role Phone Belkys Bundy Primary Care Provider +1- [phone] Reason for Visit * Reason Onset Date Comments Request For Record 01/14/2022 Encounter Details Date Type Department Care Team (Late st Contact Info) Description 01/14/2022 [place] [address] Emily Starr RN Request For Record Social [...] submission confirmation time stamped for 01/14/2022 @ 8853, 20 pages with cover sheet. documented in this encounter Plan of Treatment Upcoming Encounters Date Type Department Care Team (Late st Contact Info) Description 08/27/2024 4:00 PM EDT Office [place] [address] Kira Thayer MD [facility] [place] [address] documented as of this encounter Visit Diagnoses Not on filedocumented in this encounter Care Teams Financial Reporting Specialist Relationship Specialty Start Date End Date Belkys Bundy DO [address] [place] [address] PCP - General Family Medicine 03/21/19 documented as of this encounter
--- OUTSIDE RECORDS SUMMARY | 2024-04-26 13:23 | XMS_ITS | Encounter Summary ---
Author Organization [facility] [place] [address] Care Team Providers Care Electrical Automation Engineer Name Role Phone Belkys Bundy Primary Care Provider +1- [phone] Encounter Details Date Type Department Care Team (Late st Contact Info) Description 11/27/2021 [place] [address] Carolyn Henry RMA Social History Tobacco Use [...] appointment. I advised pt to call front office agent to properly cancel & reschedule. documented in this encounter Plan of Treatment Upcoming Encounters Date Type Department Care Team (Late st Contact Info) Description 08/27/2024 4:00 PM EDT Office [place] [address] Kira Thayer MD [facility] [place] [address] documented as of this encounter Visit Diagnoses Not on filedocumented in this encounter Care Teams Electrical Automation Engineer Relationship Specialty Start Date End Date Belkys Bundy DO [address] [place] [address] PCP - General Family Medicine 03/21/19 documented as of this encounter
--- OUTSIDE RECORDS SUMMARY | 2024-04-26 13:23 | XMS_ITS | Encounter Summary ---
Author Organization [facility] [place] [address] Care Team Providers Care Roll Wrapper Name Role Phone Belkys Bundy Primary Care Provider +1- [phone] Encounter Details Date Type Department Care Team (Latest Contact Info) Description 06/03/2021 8:30 AM EST - 06/03/2021 11:59 PM EST Hospital [place] [address] COPD, very severe Discharge Disposition: Home Social [...] End Date inhalational spacing device (Ricci Aerosol [place] Enhancer) Spacer .MEDSUPPLY 02/01/2020 levothyroxine (Synthroid) 100 [...] 11 07/16/2020 fluticasone propionate (FLONASE) 50 mcg/actuation [place], Suspension 02/01/2020 atorvastatin (Lipitor) 20 mg Tablet [...] -vilanter (Trelegy Ellipta) 200-62.5-25 mcg Disk with DeviceIndications:CLIENT SUPPORT ASSOCIATE D, very severe Inhale 1 Inhalation into [...] 4:00 PM EDT [place] [address] Kira Thayer MD [facility] [place] [address] documented as of this encounter Procedures Procedure [...] / FVC LLN 69 % COMPAS PFT MUU03-37 Actual Pre-BD 0.15 L/s COMPAS PFT VER61-49 Pre-BD % of Predicted 5 % COMPAS PFT [id number] Predicted 2.75 L/s COMPAS PFT JVU21-07 Pre-BD Z-Score -4.92 COMPAS PFT DLCO Hb [...] classified documented in this encounter Care Teams Roll Wrapper Relationship Specialty Start Date End Date Belkys Bundy DO [address] [facility] [place] [address] PCP - General Family Medicine 03/21/19 documented as of this encounter
--- OUTSIDE RECORDS SUMMARY | 2024-04-26 13:23 | XMS_ITS | Encounter Summary ---
[place] [address] Care Team Providers Care Videotape Recording Engineer Name Role Phone Belkys Bunyd Primary Care Provider +1- [phone] Reason for Referral * Diagnostic Test (Routine) - Closed Specialty Diagnoses / Procedures Referred By Rossy levine Referred To Contact Radiology Diagnoses Bacterial pneumonia Procedures CT Chest wo Contrast (Generic) Kira Thayer MD [facility] [place] [address] [facility] [place] [address] Referral ID Status Reason Start Date Expiration Date V isits Requested Visits Authorized [id number] Closed Specialty Service Requested 10/18/2022 04/20/2024 1 1 Encounter Details Date Type Department Care Team (Late st Contact Info) Description 10/18/2022 8:00 AM EDT Office [place] [address] Kira Thayer MD [facility] [place] [address] COPD, very severe; Tobacco use; [...] from the original note were not included. [facility] Section of Pulmonary and Critical [...] Prior to Visit Medication Sig Dispense Refill qhbqztxugph-tdqdilekzycp-kdqlijqevl (Trelegy Ellipta) 200-62.5-25 mcg Inhale 1 puff into the lungs daily. 28 each 11 inhalational spacing device (Ricci Aerosol [place] Enhancer) Spacer .MEDSUPPLY levothyroxine (Synthroid) 100 mcg [...] tablet 11 fluticasone propionate (FLONASE) 50 mcg/actuation [place], Suspension atorvastatin (Lipitor) 20 mg Tablet cyclobenzaprine [...] EVERY DAY NEEDED FOR COPD EXACERBATION; ALERT OUTFITTER CABIN AND PCP predniSONE (Deltasone) 10 mg tablet [...] remains below baseline (severe obstruction again with SDG8icdc increased to 22% predicted); I recommended we [...] involve a referral to a center in [place], and that she needs to quit smoking [...] day of visit. Kira Thayer MD [facility] PULMONOLOGY AT [facility] [address] Dept: [phone] Loc: [phone] documented in this encounter Plan of Treatment Upcoming Encounters Date Type Department Care Team (Late st Contact Info) Description 08/27/2024 4:00 PM EDT Office [place] [address] Kira Thayer MD [facility] DR [place] [address] documented as of this encounter Procedures Procedure [...] who have questions please contact the health morning caregiver that requested your imaging first. ? Electronically signed by: Raheem Morin MD, [facility] ??([phone]), at 10/25/2022 10:54 AM Narrative 10/25/2022 10:54 [...] patients who have questions please contactthe health morning caregiver that requested your imaging first. Electronically signed by: Raheem Morin MD, [facility]([phone]), at 10/25/2022 10:54 AM Kira Thayer MD IMG CT ORDERABLES * (ABNORMAL) Blood Gas Venous (COUNTS INCLUDE 234 BEDS AT THE [facility]) (10/18/2022 8:56 AM EDT) pH, Venous 7.35 7.32 - 7.42 [facility] PCO2, Venous 56(H) 41 - 51 mmHg [facility] PO2, Venous 42(H) 25 - 40 mmHg [facility] Bicarbonate, Venous 30.3 mmol/L [facility] Base Excess, Venous 4.7 mmol/L [facility] Hgb Blood Gas 15.7(H) 11.7 - 15.5 g/dL [facility] Oxyhemoglobin, Venous 74.0 % [facility] Carboxyhemoglob in, Venous 5.3 % [facility] Comment: Nonsmokers: 0.5-1.5% COHB Smokers: Variable, but usually less than 10% Toxic: 20-30% COHB Lethal: Greater than 60% COHB Methemoglobin, Venous 0.3 <=1.5 % [facility] Na Whole Blood 142 135 - 145 mmol/L [facility] K Whole Blood 3.5 3.5 - 5.0 mmol/L [facility] Comment: Please note: Patients with WBC >100,000 may have falsely elevated Potassium levels. Contact the Clinical Chemistry Laboratory if there are any questions. ICa Whole Blood 1.23 1.15 - 1.33 mmol/L [facility] Comment: Note: ??Total bilirubin higher than 20 mg/dL may lead to falsely low ionized calcium. CL Whole Blood 103 98 - 107 mmol/L [facility] Gluc Whole Bld 92 65 - 199 mg/dL [facility] Comment:Diabetes: >=200 mg/d L plus symptoms Lactate WB 1.7 0.5 - 2.2 mmol/L [facility] Blood Gas Source Venous [facility] Blood Venous Draw / Unknown 10/18/2022 8:56 AM EDT 10/18/2022 9:00 AM EDT Narrative Resulting Agency Comment Spec In Lab Kira Thayer MD CHEMISTRY ORDERABLES Performing Organization Address [facility] Co de Phone Number [facility] [place] [address] * (ABNORMAL) Lower Respiratory Culture Sputum Expectorated (10/18/2022 8:38 AM EDT) Lower Respiratory Culture Few mixed bacterial morphotypes suggestive of normal upper respiratory roxanne(A) [facility] Gram Stain Many Neutrophils seen Few squamous epithelial cells seen Few Gram Positive Cocci seen (A) [facility] Organism Gram Positive Cocci(A) [facility] Sputum Expectorated 10/19/19 8:38 AM EDT 10/18/2022 9:41 AM EDT Narrative Resulting Agency Comment Spec In Lab Kira Thayer MD MICROBIOLOGY - GENER AL ORDERABLES Performing Organization Address [facility] Co de Phone Number [facility] [place] [address] documented in this encounter Visit Diagnoses Diagnosis COPD, very severe Chronic airway obstruction, not elsewhere classified Tobacco use Tobacco use disorder Bacterial pneumonia Bacterial pneumonia, unspecified Bacterial pneumonia Bacterial pneumonia, unspecified documented in this encounter Care Teams Videotape Recording Engineer Relationship Specialty Start Date End Date Belkys Bundy DO [address] [place] [address] PCP - General Family Medicine 03/21/19 documented as of this encounter
--- OUTSIDE RECORDS SUMMARY | 2024-04-26 13:23 | XMS_ITS | Encounter Summary ---
Author Organization [facility] [place] [address] Care Team Providers Care Indian Nanny Name Role Phone Belkys Bundy Primary Care Provider +1- [phone] Encounter Details Date Type Department Care Team (Late st Contact Info) Description 03/17/2021 Telephone Pulmonology at [facility] [place] [address] Juanis Osullivan, RT Social History Tobacco Use [...] 4:00 PM EDT [place] [address] Kira Thayer MD [facility] [place] [address] documented as of this encounter Visit Diagnoses Not on filedocumented in this encounter Care Teams Indian Nanny Relationship Specialty Start Date End Date Belkys Bundy DO [address] [place] [address] PCP - General Family Medicine 03/21/19 documented as of this encounter
--- OUTSIDE RECORDS SUMMARY | 2024-04-26 13:23 | XMS_ITS | Encounter Summary ---
Author Organization [facility]ly [facility] [place] [address] Care Team Providers Care Residency Program Coordinator Name Role Phone Belkys Bundy Primary Care Provider +1- [phone] Encounter Details Date Type Department Care Team (Late st Contact Info) Description 03/31/2022 11:00 AM EST Office [place] [address] Kira Thayer MD [facility] [place] [address] COPD, very severe; Supplemental oxygen dependent; Tobacco [...] original note were not included. [facility] Section of Pulmonary and Critical Care [...] Refill ??? inhalational spacing device (Ricci Aerosol [place] Enhancer) Spacer .MEDSUPPLY ??? levothyroxine (Synthroid) 100 mcg Tablet Take 100 mcg by mouth nightly. ??? linaCLOtide (Linzess) 72 mcg Capsule Take 72 mcg by mouth every morning. Take 30 minutes beforemeal ??? potassium chloride (KLOR-CON) 20 mEq Packet Take 20 mEq by mouth 2 times daily. ??? shitiqeiynr-qrpiboqbo-gzvhqeft (Trelegy Ellipta) 200-62.5-25 mcg Disk with Device [...] 11 ??? fluticasone propionate (FLONASE) 50 mcg/actuation [place], Suspension ??? nicotine (NICODERM CQ) 21 mg/24 [...] involve a referral to a center in [place]. Summary Recommendations: - continue trelegy inhaler 200 [...] further questions or concerns. Kira Thayer MD [facility] PULMONOLOGY AT [facility] [address] Dept: [phone] Loc: [phone] documented in this encounter Plan of Treatment Upcoming Encounters Date Type Department Care Team (Late st Contact Info) Description 08/27/2024 4:00 PM EDT Office Visit [place] [address] Kira Thayer MD [facility] DR [place] [address] documented as of this encounter Results * [...] / FVC LLN 69 % COMPAS PFT JYL53-88 Actual Pre-BD 0.19 L/s COMPAS PFT YXU97-91 Pre-BD % of Predicted 7 % COMPAS PFT TFW95-78 Predicted 2.71 L/s COMPAS PFT JPJ65-29 Pre-BD Z-Score -4.66 COMPAS PFT DLCO Hb [...] classified documented in this encounter Care Teams Residency Program Coordinator Relationship Specialty Start Date End Date Belkys Bundy DO [address] [place] [address] PCP - General Family Medicine 03/21/19 documented as of this encounter
--- OUTSIDE RECORDS SUMMARY | 2024-04-26 13:23 | XMS_ITS | Encounter Summary ---
[place] [address] Care Team Providers Care Molder Punch Name Role Phone Belkys Bundy Primary Care Provider +1- [phone] Reason for Visit * Reason Onset Date Comments Cough 08/06/2021 COPD 08/06/2021 Excessive Phlegm 08/06/2021 Encounter Details Date Type Department Care Team (Late st Contact Info) Description 08/06/2021 [place] [address] Emily Starr RN Cough; COPD; Excessive Phlegm [...] antibiotic andprednisone Thanks jessie CARMONA called to [facility] in [facility], confirming that patient had previously [...] utilized her prednisone from May. Preferred Pharmacy: [facility] in [facility]. Confirmed Returned Contact Number: [phone] documented in this encounter Plan of Treatment Upcoming Encounters Date Type Department Care Team (Late st Contact Info) Description 08/27/2024 4:00 PM EDT Office [place] [address] Kira Thayer MD [facility] [place] [address] documented as of this encounter Visit Diagnoses Diagnosis COPD with exacerbation Obstructive chronic bronchitis with exacerbation documented in this encounter Care Teams Molder Punch Relationship Specialty Start Date End Date Belkys Bundy DO [address] [place] [address] PCP - General Family Medicine 03/21/19 documented as of this encounter
--- OUTSIDE RECORDS SUMMARY | 2024-04-26 13:23 | XMS_ITS | Encounter Summary ---
Author Organization [facility] [place] [address] Care Team Providers Care Heel Stiffener Name Role Phone Belkys Bundy DO Primary Care Provider +1- [phone] Encounter Details Date Type Department Care Team (Late st Contact Info) Description 08/05/2022 Tele[place] [address] Millicent Valles Social History Tobacco [...] EDT Office [place] [address] Kira Thayer MD [facility] [place] [address] documented as of this encounter Visit Diagnoses Not on filedocumented in this encounter Care Teams Heel Stiffener Relationship Specialty Start Date End Date Belkys Bundy DO [address] [place] [address] PCP - General Family Medicine 03/21/19 documented as of this encounter
--- OUTSIDE RECORDS SUMMARY | 2024-04-26 13:23 | XMS_ITS | Encounter Summary ---
Author [facility] [place] [address] Care Team Providers Care Senior Software Qa Analyst Name Role Phone Belkys Bundy Primary Care Provider +1- [phone] Encounter Details Date Type Department Care Team (Latest Contact Info) Description 03/31/2022 8:34 AM EST - 03/31/2022 11:59 PM EST Hospital En[place] [address] COPD, very severe Discharge Disposition: Home Social [...] End Date inhalational spacing device (Ricci Aerosol [place] Enhancer) Spacer .MEDSUPPLY 02/01/2020 levothyroxine (Synthroid) 100 [...] 11 07/16/2020 fluticasone propionate (FLONASE) 50 mcg/actuation [place], Suspension 02/01/2020 atorvastatin (Lipitor) 20 mg Tablet [...] EDT Office [place] [address] Kira Thayer MD [facility] [place] [address] documented as of this encounter Procedures Procedure [...] / FVC LLN 69 % COMPAS PFT BOW19-71 Actual Pre-BD 0.30 L/s COMPAS PFT QTR90-05 Pre-BD % of Predicted 11 % COMPAS PFT RKZ17-93 Predicted 2.74 L/s COMPAS PFT CUI67-39 Pre-BD Z-Score -4.27 COMPAS PFT DLCO Hb [...] documented in this encounter Care Teams Senior Software Qa Analyst Relationship Specialty Start Date End Date Belkys Bundy DO [address] [place] [address] PCP - General Family Medicine 03/21/19 documented as of this encounter
--- OUTSIDE RECORDS SUMMARY | 2024-04-26 13:23 | XMS_ITS | Encounter Summary ---
Author Organization [facility] [place] [address] Care Team Providers Care Business Support Assistant Name Role Phone Belkys Bundy DO Primary Care Provider +1- [phone] Encounter Details Date Type Department Care Team [...] 4:00 PM EDT Office [place] [address] Kira Thayer MD [facility] [place] [address] documented as of this encounter Visit Diagnoses Not on filedocumented in this encounter Care Teams Business Support Assistant Relationship Specialty Start Date End Date Belkys Bundy DO [address] [place], [place] [address] PCP - General Family Medicine 03/21/19 documented as of this encounter
--- OUTSIDE RECORDS SUMMARY | 2024-04-26 13:23 | XMS_ITS | Encounter Summary ---
Author Organization [facility]ly [facility] Address [facility] [place] [address] Care Team Providers Care Bundle Packer Name Role Phone Belkys Bundy DO Primary Care Provider +1- [phone] Encounter Details Date Type Department Care Team [...] 4:00 PM EDT Office [place] [address] [facility] [place] [address] documented as of this encounter Visit Diagnoses Not on filedocumented in this encounter Care Teams Bundle Packer Relationship Specialty Start Date End Date Belkys Bundy DO [address] [place] [address] PCP - General Family Medicine 03/21/19 documented as of this encounter
--- OUTSIDE RECORDS SUMMARY | 2024-04-26 13:23 | XMS_ITS | Encounter Summary ---
[place] [address] Care Team Providers Care Manager Post Name Role Phone Belkys Bundy Primary Care Provider +1- [phone] Encounter Details Date Type Department Care Team (Latest Contact Info) Description 09/13/2022 7:20 AM EDT - 09/13/2022 11:59 PM EDT Hospital [place] [address] COPD, very severe Discharge Disposition: Home Social [...] End Date inhalational spacing device (Ricci Aerosol [place] Enhancer) Spacer .MEDSUPPLY 02/01/2020 levothyroxine (Synthroid) 100 [...] 11 07/16/2020 fluticasone propionate (FLONASE) 50 mcg/actuation [place], Suspension 02/01/2020 atorvastatin (Lipitor) 20 mg Tablet [...] EVERY DAY NEEDED FOR COPD EXACERBATION; ALERT ELECTRONIC PREPRESS TECHNICIAN AND PCP 09/01/2022 06/20/2023 predniSONE (Deltasone) 10 mg tabletIndications:PRIMARY CARE COORDINATOR D with exacerbation After finishing 40 mg for 5 days take 30 mg for 5 days then 20 mg for 5 days then 10 mg for 5 days then stop. 30 tablet 09/13/2022 10/18/2022 fluticasone-umeclidin ium-vilanterol (Trelegy Ellipta) 200-62.5-25 mcgIndications:COPD, very severe Inhale 1 puff into the lungs daily. 28 each 11 07/27/2022 10/18/2022 azithromycin (Zithromax Z-Adama) 250 mg TabletIndications:PRIMARY CARE COORDINATOR D, very severe Take 1 tablet by [...] 4:00 PM EDT [place] [address] Kira Thayer MD [facility] [place] [address] documented as of this encounter Procedures Procedure [...] / FVC LLN 69 % COMPAS PFT [id number] Actual Pre-BD 0.19 L/s COMPAS PFT AFU14-29 Pre-BD % of Predicted 7 % COMPAS PFT YSX40-72 Predicted 2.71 L/s COMPAS PFT MXQ10-75 Pre-BD Z-Score -4.66 COMPAS PFT DLCO Hb [...] Thayer MD PFT ORDERABLES Performing Organization Address City/State/[facility] Co de Phone Number COMPAS PFT documented in this encounter Visit Diagnoses Diagnosis COPD, very severe Chronic airway obstruction, not elsewhere classified documented in this encounter Care Teams Manager Post Relationship Specialty Start Date End Date Belkys Bundy DO [address] [place] [address] PCP - General Family Medicine 03/21/19 documented as of this encounter
--- OUTSIDE RECORDS SUMMARY | 2024-04-26 13:23 | XMS_ITS | Encounter Summary ---
Author Organization [facility] [place] [address] Care Team Providers Care Sewer Pipe Offbearer Name Role Phone OliverLizeth mooresea Rachel DO Primary Care Provider +1- [phone] Encounter Details Date Type Department Care Team (Late st Contact Info) Description 09/22/2021 [place] [address] Millicent Valles Social History Tobacco [...] 4:00 PM EDT Office [place] [address] Kira Thayer MD [facility] [place] [address] documented as of this encounter Visit Diagnoses Not on filedocumented in this encounter Care Teams Sewer Pipe Offbearer Relationship Specialty Start Date End Date Belkys Bundy DO [address] [place] [address] PCP - General Family Medicine 03/21/19 documented as of this encounter
--- OUTSIDE RECORDS SUMMARY | 2024-04-26 13:23 | XMS_ITS | Encounter Summary ---
[place] [address] Care Team Providers Care Heating Technician Name Role Phone Belkys Bundy DO Primary Care Provider +1- [phone] Reason for Visit * Reason Onset Date Comments Other 06/24/2021 Medication recon cilliation Encounter Details Date Type Department Care Team (Late st Contact Info) Description 06/24/2021 [place] [address] Emily Starr RN Other (Medication reconcilliation) Social [...] list from office of Dr. Bundy of [facility]. Added new medications and doses to list. documented in this encounter Plan of Treatment Upcoming Encounters Date Type Department Care Team (Late st Contact Info) Description 08/27/2024 4:00 PM EDT Office [place] [address] Kira Thayer MD [facility] [place] [address] documented as of this encounter Visit Diagnoses Not on filedocumented in this encounter Care Teams Heating Technician Relationship Specialty Start Date End Date Belkys Bundy DO [address] [place] [address] PCP - General Family Medicine 03/21/19 documented as of this encounter
--- OUTSIDE RECORDS SUMMARY | 2024-04-26 13:23 | XMS_ITS | Encounter Summary ---
Author Organization [facility] Address [facility] [place] [address] Care Team Providers Care Senior Sales Administrator Name Role Phone Belkys Bundy Primary Care Provider +1- [phone] Encounter Details Date Type Department Care Team (Late st Contact Info) Description 06/03/2021 9:00 AM EST Office [place] [address] Kira Thayer MD [facility] [place] [address] COPD, very severe; Chronic obstructive pulmonary disease, [...] from the original note were not included. [facility] Section of Pulmonary and Critical Care Medicine [...] to Visit Medication Sig Dispense Refill ??? cworthbjwfg-jlavpbxup-twqgotxz (Trelegy Ellipta) 200-62.5-25 mcg Disk with Device [...] propionate (FLONASE) 50 mcg/actuation [place], Suspension ??? atorvastatin (Lipitor) 20 mg Tablet [...] further questions or concerns. MD Omari Hogue [facility] PULMONOLOGY AT [facility] [address] Dept: [phone] Loc: [phone] documented in this encounter Plan of Treatment Upcoming Encounters Date Type Department Care Team (Late st Contact Info) Description 08/27/2024 4:00 PM EDT Office [place] [address] Kira Thayer MD [facility] [place] [address] documented as of this encounter Visit Diagnoses Diagnosis COPD, very severe Chronic airway obstruction, not elsewhere classified Chronic obstructive pulmonary disease, unspecified COPD type Supplemental oxygen dependent Dependence on supplemental oxygen Pulmonary nodule Solitary pulmonary nodule Tobacco use Tobacco use disorder documented in this encounter Care Teams Senior Sales Administrator Relationship Specialty Start Date End Date Belkys Bundy DO [address] [place] [address] PCP - General Family Medicine 03/21/19 documented as of this encounter
--- OUTSIDE RECORDS SUMMARY | 2024-04-26 13:23 | XMS_ITS | Encounter Summary ---
Author Organization [facility] [place] [address] Care Team Providers Care Wood Turning Lathe Operator Name Role Phone Belkys Bundy DO Primary Care Provider +1- [phone] Encounter Details Date Type Department Care Team (Late st Contact Info) Description 07/15/2022 Ancillary Procedure Radiology Library at [facility] [place] [id number] Kira Thayer MD [facility] [place] [address] Social History Tobacco Use Types Packs/Day Years [...] 4:00 PM EDT Office Visit Pulmonology at [facility] [place] [address] Kira Thayer MD [facility] [place] [address] documented as of this encounter Procedures Procedure [...] FILM LIBRARY ORD ERABLES Performing Organization Address City/State/[facility] Co de Phone Number [place], [place] documented in this encounter Visit Diagnoses Not on filedocumented in this encounter Care Teams Wood Turning Lathe Operator Relationship Specialty Start Date End Date Belkys Bundy DO [address] [place] [address] PCP - General Family Medicine 03/21/19 documented as of this encounter
--- OUTSIDE RECORDS SUMMARY | 2024-04-26 13:23 | XMS_ITS | Encounter Summary ---
[place] [address] Care Team Providers Care Metal Model Builder Name Role Phone Belkys Bundy Primary Care Provider +1- [phone] Reason for Referral * Diagnostic Test (Routine) - Closed Specialty Diagnoses / Procedures Referred By Contac t Referred To Contact Radiology Diagnoses Pulmonary nodule Procedures CT Chest wo Contrast (Generic) Kira Thayer MD [facility] [place] [address] [facility] [place] [address] Referral ID Status Reason Start Date Expiration Date V isits Requested Visits Authorized [id number] Closed Specialty Service Requested 03/02/2021 08/30/2022 1 1 Reason for Visit * Diagnostic Test (Routine) - Closed Specialty Diagnoses / Procedures Referred By Contac t Referred To Contact Radiology Diagnoses Pulmonary nodule Procedures CT Chest wo Contrast (Generic) Kira Thayer MD [facility] [place] [address] [facility] [place] [address] Referral ID Status Reason Start Date Expiration Date V isits Requested Visits Authorized [id number] Closed Specialty Service Requested 03/02/2021 08/30/2022 1 1 Encounter Details Date Type Department Care Team (Latest Contact Info) Description 06/03/2021 7:29 AM EST - 06/03/2021 8:29 AM EST Hospital Encounter CT Scan at [facility] [place] [place] [address] Kira Tahyer MD [facility] DR PULMON[place] [address] Pulmonary nodule Discharge Disposition: Home Social History [...] End Date inhalational spacing device (Ricci Aerosol Hamblen Enhancer) Spacer .MEDSUPPLY 02/01/2020 levothyroxine (Synthroid) 100 [...] 11 07/16/2020 fluticasone propionate (FLONASE) 50 mcg/actuation [place], Suspension 02/01/2020 atorvastatin (Lipitor) 20 mg [...] 4:00 PM EDT Office [place] [address] Kira Thayer MD [facility] [place] [address] documented as of this encounter Procedures Procedure [...] who have questions please contact the health child care provider that requested your imaging first. ? Electronically signed by: Cori Schmidt MD, [facility] ([phone]), at 06/03/2021 9:35 AM Narrative 06/03/2021 9:35 [...] thoracic aorta stable at 3 cm. No capitan grande coronary artery calcification. Other mediastinal structures: No [...] ascendingthoracic aorta stable at 3 cm. No capitan grande coronary artery calcification. Other mediastinal structures: No [...] patients who have questions please contactthe health child care provider that requested your imaging first. Kira Thayer MD IMG CT ORDERABLES documented in this encounter Visit Diagnoses Diagnosis Pulmonary nodule Solitary pulmonary nodule documented in this encounter Care Teams Metal Model Builder Relationship Specialty Start Date End Date Belkys Bundy DO [address] [place] [address] PCP - General Family Medicine 03/21/19 documented as of this encounter
--- OUTSIDE RECORDS SUMMARY | 2024-04-26 13:23 | XMS_ITS | Encounter Summary ---
Author Organization [facility] [place] [address] Care Team Providers Care Airline Operations Agent Name Role Phone Belkys Bundy DO Primary Care Provider +1- [phone] Encounter Details Date Type Department Care Team (Late st Contact Info) Description 07/08/2021 [place] [address] Kira Thayer MD [facility] [place] [address] COPD, very severe Social History Tobacco Use [...] 4:00 PM EDT [place] [address] Kira Thayer MD [facility] [place] [address] documented as of this encounter Visit Diagnoses Diagnosis COPD, very severe Chronic airway obstruction, not elsewhere classified documented in this encounter Care Teams Airline Operations Agent Relationship Specialty Start Date End Date Belkys Bundy DO [address] [place] [address] PCP - General Family Medicine 03/21/19 documented as of this encounter
--- OUTSIDE RECORDS SUMMARY | 2024-04-26 13:24 | XMS_ITS | Encounter Summary ---
Author Organization [facility] [place] [address] Care Team Providers Care Audio Visual Arts Director Name Role Phone Belkys Bundy Primary Care Provider +1- [phone] Encounter Details Date Type Department Care Team (Late st Contact Info) Description 09/30/2020 10:00 AM EDT [place] [address] Kira Thayer MD [facility] [place] [address] COPD, very severe; Supplemental oxygen dependent; Tobacco [...] participating in pulmonary rehab this spring via [facility] [employer], feels it has been very effective. Past [...] 11 ??? fluticasone propionate (FLONASE) 50 mcg/actuation [place], Suspension ??? nicotine (NICODERM CQ) 21 mg/24 hr Patch 24 hr APPLY ONE PATCH TO THE SKIN EVERY DAY ??? albuteroL 90 mcg/actuation HFA Aerosol Inhaler Inhale 2 puffs into the lungs every 4 hours as needed for Wheezing or Shortness of Breath. Use with spacer 2 Inhaler 5 ??? vazqnbtvrct-abrrpjmxr-swejbqhd (Trelegy Ellipta) 200-62.5-25 mcg Disk with Device [...] UPPSET ??? fluticasone propionate (FLONASE) 50 mcg/actuation [place], Suspension by Nasal route. ??? levothyroxine (SYNTHROID) [...] prior EKG records (she thinks done at [facility] within past year); will request again - [...] tobacco cessation counseling. Kira Thayer MD [facility] PULMONOLOGY AT [facility] [address] Dept: [phone] Loc: [phone] documented in this encounter Plan of Treatment Upcoming Encounters Date Type Department Care Team (Late st Contact Info) Description 08/27/2024 4:00 PM EDT [place] [address] Kira Thayer MD [facility] [address] PULMONARY MEDICINE [place] [id number] documented as of this encounter Visit Diagnoses Diagnosis COPD, very severe Chronic airway obstruction, not elsewhere classified Supplemental oxygen dependent Dependence on supplemental oxygen Tobacco use Tobacco use disorder Environmental allergies Allergic rhinitis, cause unspecified Gastroesophageal reflux disease, unspecified whether esophagitis present documented in this encounter Care Teams Audio Visual Arts Director Relationship Specialty Start Date End Date Belkys Bundy DO [address] [place] [address] PCP - General Family Medicine 03/21/19 documented as of this encounter
--- OUTSIDE RECORDS SUMMARY | 2024-04-26 13:24 | XMS_ITS | Encounter Summary ---
[facility] [place] [address] Care Team Providers Care Diesel Engine I Pipe Fitter Name Role Phone Belkys Bundy Primary Care Provider +1- [phone] Encounter Details Date Type Department Care Team (Late st Contact Info) Description 09/22/2020 [place] [address] Juanis Osullivan, RT Social History Tobacco Use [...] follow up on: -home/portable oxygen: reviewed per [facility]- no Medicare claims for her O2. Plan for home O2 evaluation at 10/06 pulmonary appointment and transition to other [facility] O2 provider. Respiratory status: -Jessie noted increased [...] 4:00 PM EDT Office [place] [address] Christi Pruett MD [facility] [address] documented as of this encounter Visit Diagnoses Not on filedocumented in this encounter Care Teams Diesel Engine I Pipe Fitter Relationship Specialty Start Date End Date Belkys Bundy DO [address] [place] [address] PCP - General Family Medicine 03/21/19 documented as of this encounter
--- OUTSIDE RECORDS SUMMARY | 2024-04-26 13:24 | XMS_ITS | Encounter Summary ---
Author Organization [facility] [place] [address] Care Team Providers Care Ice Sculptor Name Role Phone Niharika Belkys Virginie MYRICK Primary Care Provider +1- [phone] Encounter Details Date Type Department Care Team (Late st Contact Info) Description 08/08/2020 [place] [address] Juanis Osullivan, RT Social History Tobacco Use [...] 4:00 PM EDT [place] [address] Kira Thayer MD [facility] [place] [address] documented as of this encounter Visit Diagnoses Not on filedocumented in this encounter Care Teams Ice Sculptor Relationship Specialty Start Date End Date Belkys Bundy DO [address] [place] [address] PCP - General Family Medicine 03/21/19 documented as of this encounter
--- OUTSIDE RECORDS SUMMARY | 2024-04-26 13:24 | XMS_ITS | Encounter Summary ---
Author Organization [facility] Address [facility] [place] [address] Care Team Providers Care Certified Teacher Assistant Name Role Phone Belkys Bundy DO Primary Care Provider +1- [phone] Reason for Visit * Reason Comments Medication Refill Encounter Details Date Type Department Care Team (Late st Contact Info) Description 12/19/2020 [place] [address] Kervin Steiner Jr., MD [facility] [place] [address] Chronic obstructive pulmonary disease, unspecified COPD type [...] Office [place] [address] Kira Thayer MD [facility] [place] [address] documented as of this encounter Visit Diagnoses Diagnosis Chronic obstructive pulmonary disease, unspecified COPD type documented in this encounter Care Teams Certified Teacher Assistant Relationship Specialty Start Date End Date Belkys Bundy DO [address] [place] [address] PCP - General Family Medicine 03/21/19 documented as of this encounter
--- OUTSIDE RECORDS SUMMARY | 2024-04-26 13:24 | XMS_ITS | Encounter Summary ---
[place] [address] Care Team Providers Care Boxing Machine Operator Name Role Phone Belkys Bundy Primary Care Provider +1- [phone] Encounter Details Date Type Department Care Team (Late st Contact Info) Description 10/17/2020 2:00 PM EDT TH Visit (TeleHealth) [place] [address] Juanis Osullivan, RT COPD, very severe Social [...] see Jethro Knapp's PT note Juanis Osullivan, TEST OPERATOR,SALES ORDER COORDINATOR documented in this encounter Miscellaneous Notes * [...] PM EDT Office [place] [address] Kira Thayer MD [facility] [place] [address] documented as of this encounter Visit Diagnoses Diagnosis COPD, very severe Chronic airway obstruction, not elsewhere classified documented in this encounter Care Teams Boxing Machine Operator Relationship Specialty Start Date End Date Belkys Bundy DO [address] [place] [address] PCP - General Family Medicine 03/21/19 documented as of this encounter
--- OUTSIDE RECORDS SUMMARY | 2024-04-26 13:24 | XMS_ITS | Encounter Summary ---
Author Organization [facility] [place] [address] Care Team Providers Care Mold Shop Supervisor Name Role Phone Belkys Bundy Primary Care Provider +1- [phone] Encounter Details Date Type Department Care Team (Late st Contact Info) Description 10/03/2020 2:00 PM EDT TH Visit (TeleHealth) [place] [address] Juanis Osullivan, RT COPD, very severe Social [...] see Jethro Knapp's PT note Juanis Osullivan, BELL SPINNER,MANAGER [place] documented in this encounter Miscellaneous Notes * [...] 4:00 PM EDT Office [place] [address] Kira Thayer MD [facility] [place] [address] documented as of this encounter Visit Diagnoses Diagnosis COPD, very severe Chronic airway obstruction, not elsewhere classified documented in this encounter Care Teams Mold Shop Supervisor Relationship Specialty Start Date End Date Belkys Bundy DO [address] [place] [address] PCP - General Family Medicine 03/21/19 documented as of this encounter
--- OUTSIDE RECORDS SUMMARY | 2024-04-26 13:24 | XMS_ITS | Encounter Summary ---
[place] [address] Care Team Providers Care Printed Forms Proofreader Name Role Phone Belkys Bundy Primary Care Provider +1- [phone] Encounter Details Date Type Department Care Team (Late st Contact Info) Description 01/20/2021 1:00 PM EDT TH Visit (TeleHealth) [place] [address] Juanis Osullivan, RT COPD, very severe Social [...] home exercise this past weekend. Juanis Osullivan, STOPER,SASH CLAMP OPERATOR documented in this encounter Miscellaneous Notes * Treatment - Therapy - Dary Wheat, EVENTS INTERN - 01/20/2021 1:00 PM EDT Pulmonary Rehabilitation [...] a group and 1-2 x independently Dary Whaet PTA documented in this encounter Plan of Treatment Upcoming Encounters Date Type Department Care Team (Late st Contact Info) Description 08/27/2024 4:00 PM EDT Office [place] [address] Kira Thayer MD [facility] [place] [address] documented as of this encounter Visit Diagnoses Diagnosis COPD, very severe Chronic airway obstruction, not elsewhere classified documented in this encounter Care Teams Printed Forms Proofreader Relationship Specialty Start Date End Date Belkys Bundy DO [address] [place] [address] PCP - General Family Medicine 03/21/19 documented as of this encounter
--- OUTSIDE RECORDS SUMMARY | 2024-04-26 13:24 | XMS_ITS | Encounter Summary ---
[place] [address] Care Team Providers Care Grain Elevator Man Name Role Phone Belkys Bundy Primary Care Provider +1- [phone] Encounter Details Date Type Department Care Team (Late st Contact Info) Description 08/13/2020 2:00 PM EDT TH Visit (TeleHealth) [place] [address] Juanis Osullivan, RT COPD, very severe Social [...] see Jethro Knapp's PT note Juanis Osullivan, RAIL TRACK MAINTAINER,AUDIO/VIDEO TECHNICIAN documented in this encounter Miscellaneous Notes [...] PM EDT Office Visit [place] [address] Kira Thayer MD [facility] [place] [address] documented as of this encounter Visit Diagnoses Diagnosis COPD, very severe Chronic airway obstruction, not elsewhere classified documented in this encounter Care Teams Grain Elevator Man Relationship Specialty Start Date End Date Belkys Bundy DO [address] [place] [address] PCP - General Family Medicine 03/21/19 documented as of this encounter
--- OUTSIDE RECORDS SUMMARY | 2024-04-26 13:24 | XMS_ITS | Encounter Summary ---
[place] [address] Care Team Providers Care Dry Drug Worker Name Role Phone Belkys Bundy Primary Care Provider +1- [phone] Encounter Details Date Type Department Care Team (Late st Contact Info) Description 08/22/2020 2:00 PM EDT TH Visit (TeleHealth) [place] [address] Juanis Osullivan, RT COPD, very severe Social [...] see Jethro Knapp's PT note Juanis Osullivan, SYSTEMS SECURITY CONSULTANT,GUN BARREL FINISHER documented in this encounter Miscellaneous Notes * [...] EDT Office [place] [address] Kira Thayer MD [facility] [place] [address] documented as of this encounter Visit Diagnoses Diagnosis COPD, very severe Chronic airway obstruction, not elsewhere classified documented in this encounter Care Teams Dry Drug Worker Relationship Specialty Start Date End Date Belkys Bundy DO [address] [place] [address] PCP - General Family Medicine 03/21/19 documented as of this encounter
--- OUTSIDE RECORDS SUMMARY | 2024-04-26 13:24 | XMS_ITS | Encounter Summary ---
Author Organization [facility] [place] [address] Care Team Providers Care Learning And Development Assistant Name Role Phone Belkys Bundy Primary Care Provider +1- [phone] Encounter Details Date Type Department Care Team (Late st Contact Info) Description 08/08/2020 [place] [address] Juanis Osullivan RT Social History Tobacco Use [...] 08/08/2020 1:06 PM EDT Called Cristin at [facility] to review Jessie's current status of her Medicare O2 benefit. Cristin noted that currently no months have billed for Medicare for her oxygen. Jessie needs to be requalified for oxygen with new oxygen orders. documented in this encounter Plan of Treatment Upcoming Encounters Date Type Department Care Team (Late st Contact Info) Description 08/27/2024 4:00 PM EDT [place] [address] Kira Thayer MD [facility] [address] [place] [address] documented as of this encounter Visit Diagnoses Not on filedocumented in this encounter Care Teams Learning And Development Assistant Relationship Specialty Start Date End Date Belkys Bundy DO [address] [place] [address] PCP - General Family Medicine 03/21/19 documented as of this encounter
--- OUTSIDE RECORDS SUMMARY | 2024-04-26 13:24 | XMS_ITS | Encounter Summary ---
[place] [address] Care Team Providers Care Bottom Presser Name Role Phone Belkys Bundy Primary Care Provider +1- [phone] Encounter Details Date Type Department Care Team (Late st Contact Info) Description 09/10/2020 2:00 PM EDT TH Visit (TeleHealth) [place] [address] Juanis Osullivan, RT COPD, very severe Social [...] #: 2 Comments: Exercise done utilizing the Fridge on level 3 with O2 at 2 [...] Juanis Sanchez participated in discussion Juanis Osullivan, NEUROLOGY STROKE PHYSICIAN,RUBBER CUTTER documented in this encounter Miscellaneous Notes * [...] PM EDT Office [place] [address] Kira Thayer MD [facility] [place] [address] documented as of this encounter Visit Diagnoses Diagnosis COPD, very severe Chronic airway obstruction, not elsewhere classified documented in this encounter Care Teams Bottom Presser Relationship Specialty Start Date End Date Belkys Bundy DO [address] [place] [address] PCP - General Family Medicine 03/21/19 documented as of this encounter
--- OUTSIDE RECORDS SUMMARY | 2024-04-26 13:24 | XMS_ITS | Encounter Summary ---
Author Organization [facility] [place] [address] Care Team Providers Care Pile Driving Nozzleman Name Role Phone Belkys Bundy DO Primary Care Provider +1- [phone] Encounter Details Date Type Department Care Team (Late st Contact Info) Description 12/24/2020 [place] [address] Millicent Valles Social History Tobacco [...] 4:00 PM EDT [place] [address] Kira Thayer MD [facility] [place] [address] documented as of this encounter Visit Diagnoses Not on filedocumented in this encounter Care Teams Pile Driving Nozzleman Relationship Specialty Start Date End Date Belkys Bundy DO [address] [place] [address] PCP - General Family Medicine 03/21/19 documented as of this encounter
--- OUTSIDE RECORDS SUMMARY | 2024-04-26 13:24 | XMS_ITS | Encounter Summary ---
[place] [address] Care Team Providers Care Band Cutter Name Role Phone Belkys Bundy Primary Care Provider +1- [phone] Reason for Visit * Reason Onset Date Comments Oxygen Dependence 10/02/2020 Certificate of Medical Necessity Encounter Details Date Type Department Care Team (Late st Contact Info) Description 10/02/2020 [place] [address] Emily Starr RN Oxygen Dependence (Certificate of [...] Medical Necessity, signed by Dr. Thayer, to [facility]. This covered the following items: E1390 [...] 4:00 PM EDT [place] [address] Kira Thayer MD [facility] [place] [address] documented as of this encounter Visit Diagnoses Not on filedocumented in this encounter Care Teams Band Cutter Relationship Specialty Start Date End Date Belkys Bundy DO [address] [place] [address] PCP - General Family Medicine 03/21/19 documented as of this encounter
--- OUTSIDE RECORDS SUMMARY | 2024-04-26 13:24 | XMS_ITS | Encounter Summary ---
Author Organization [facility] [place] [address] Care Team Providers Care Cut Pressman Name Role Phone AnaBelkys moise Primary Care Provider +1- [phone] Encounter Details Date Type Department Care Team (Late st Contact Info) Description 02/03/2021 Tele[place] [address] Juanis Osullivan, RT Social History Tobacco Use [...] and she went to urgent care at [facility] to evaluate her shoulder., No xrays [...] PM EDT Office [place] [address] Kira Thayer MD [facility] [place] [address] documented as of this encounter Visit Diagnoses Not on filedocumented in this encounter Care Teams Cut Pressman Relationship Specialty Start Date End Date Belkys Bundy DO [address] [place] [address] PCP - General Family Medicine 03/21/19 documented as of this encounter
--- OUTSIDE RECORDS SUMMARY | 2024-04-26 13:24 | XMS_ITS | Encounter Summary ---
Author [place] [address] Care Team Providers Care Instructor Looping Name Role Phone Belkys Bundy Primary Care Provider +1- [phone] Encounter Details Date Type Department Care Team (Late st Contact Info) Description 09/17/2020 2:00 PM EDT TH Visit (TeleHealth) [place] [address] Juanis Osullivan, RT COPD, very severe Social [...] Jessie Alba participated in discussion. Juanis Osullivan, PLATINUM AND PALLADIUM KETTLE TENDER,PIN DRAFTING MACHINE OPERATOR documented in this encounter Miscellaneous Notes [...] 4:00 PM EDT Office [place] [address] Kira Thayer MD [facility] [place] [address] documented as of this encounter Visit Diagnoses Diagnosis COPD, very severe Chronic airway obstruction, not elsewhere classified documented in this encounter Care Teams Instructor Looping Relationship Specialty Start Date End Date Belkys Bundy DO [address] [place] [address] PCP - General Family Medicine 03/21/19 documented as of this encounter
--- OUTSIDE RECORDS SUMMARY | 2024-04-26 13:24 | XMS_ITS | Encounter Summary ---
Author Organization [facility] [place] [address] Care Team Providers Care Wool Sacker Name Role Phone Belkys Bundy DO Primary Care Provider +1- [phone] Encounter Details Date Type Department Care Team (Late st Contact Info) Description 10/17/2020 [place] [address] Millicent Valles Social History Tobacco [...] EDT Office [place] [address] Kira Thayer MD [facility] [place] [address] documented as of this encounter Visit Diagnoses Not on filedocumented in this encounter Care Teams Wool Sacker Relationship Specialty Start Date End Date Belkys Bundy DO [address] [place] [address] PCP - General Family Medicine 03/21/19 documented as of this encounter
--- OUTSIDE RECORDS SUMMARY | 2024-04-26 13:24 | XMS_ITS | Encounter Summary ---
[place] [address] Care Team Providers Care Supervisor Matrix Name Role Phone Belkys Bundy Primary Care Provider +1- [phone] Encounter Details Date Type Department Care Team (Late st Contact Info) Description 09/26/2020 2:00 PM EDT TH Visit (TeleHealth) [place] [address] Juanis Osullivan, RT COPD, very severe Social [...] see Jethro Knapp's PT note Juanis Osullivan, BARIATRIC NURSE,CHIROPRACTIC DOCTOR documented in this encounter Miscellaneous Notes * [...] 4:00 PM EDT [place] [address] Kira Thayer MD [facility] [place] [address] documented as of this encounter Visit Diagnoses Diagnosis COPD, very severe Chronic airway obstruction, not elsewhere classified documented in this encounter Care Teams Supervisor Matrix Relationship Specialty Start Date End Date Belkys Bundy DO [address] [place] [address] PCP - General Family Medicine 03/21/19 documented as of this encounter
--- OUTSIDE RECORDS SUMMARY | 2024-04-26 13:24 | XMS_ITS | Encounter Summary ---
Author Organization [facility] Address [facility] [place] [address] Care Team Providers Care Peach Grower Name Role Phone Belkys Bundy Primary Care Provider +1- [phone] Encounter Details Date Type Department Care Team (Late st Contact Info) Description 08/22/2020 Telephone [place] [phone] Kira Thayer MD [facility] [place] [address] Social History Tobacco Use Types Packs/Day Years [...] 4:00 PM EDT Office [place] [address] Kira Thayer MD [facility] [place] [address] documented as of this encounter Visit Diagnoses Not on filedocumented in this encounter Care Teams Peach Grower Relationship Specialty Start Date End Date Belkys Bundy DO [address] [place] [address] PCP - General Family Medicine 03/21/19 documented as of this encounter
--- OUTSIDE RECORDS SUMMARY | 2024-04-26 13:24 | XMS_ITS | Encounter Summary ---
[place] [address] Care Team Providers Care Senior Accountant Name Role Phone Belkys Bundy Primary Care Provider +1- [phone] Encounter Details Date Type Department Care Team (Late st Contact Info) Description 01/06/2021 1:00 PM EDT TH Visit (TeleHealth) [place] [address] Juanis Osullivan, RT COPD, very severe Social [...] set and 10- 2nd set. Juanis Osullivan, DYNAMIC BALANCER,PHARMACIST MANAGER documented in this encounter Miscellaneous Notes * Treatment - Therapy - Dary Wheat, CIRCULATION MAN - 01/06/2021 1:00 PM EDT Pulmonary Rehabilitation [...] 4:00 PM EDT Office [place] [address] Kira Thayer MD [facility] [address] PULMON[place] [address] documented as of this encounter Visit Diagnoses Diagnosis COPD, very severe Chronic airway obstruction, not elsewhere classified documented in this encounter Care Teams Senior Accountant Relationship Specialty Start Date End Date Belkys Bundy DO [address] [place] [address] PCP - General Family Medicine 03/21/19 documented as of this encounter
--- OUTSIDE RECORDS SUMMARY | 2024-04-26 13:24 | XMS_ITS | Encounter Summary ---
Author Organization [facility] [address] Care Team Providers Care Scrubbing Machine Operator Name Role Phone Belkys Bundy Primary Care Provider +1- [phone] Encounter Details Date Type Department Care Team (Late st Contact Info) Description 01/16/2021 Telephone Pulmonology at [facility] [place] [address] Juanis Osullivan RT Social History Tobacco Use [...] 4:00 PM EDT [place] [address] Kira Thayer MD [facility] [place] [address] documented as of this encounter Visit Diagnoses Not on filedocumented in this encounter Care Teams Scrubbing Machine Operator Relationship Specialty Start Date End Date Belkys Bundy DO [address] [place] [address] PCP - General Family Medicine 03/21/19 documented as of this encounter
--- OUTSIDE RECORDS SUMMARY | 2024-04-26 13:24 | XMS_ITS | Encounter Summary ---
[place] [address] Care Team Providers Care Regional Extension Service Specialist Name Role Phone Belkys Bundy Primary Care Provider +1- [phone] Encounter Details Date Type Department Care Team (Late st Contact Info) Description 12/23/2020 1:00 PM EDT TH Visit (TeleHealth) [place] [address] Juanis Osullivan, RT COPD, very severe Social [...] Pulmonary Rehabilitation Exercise: please see Dary Wheat's INSIGHTS ANALYST note Juanis Osullivan, DIRECTOR MISSION,MESS COOK documented in this encounter Miscellaneous Notes * Treatment - Therapy - Dary Wheat, INSIGHTS ANALYST - 12/23/2020 1:00 PM EDT Pulmonary Rehabilitation [...] 4:00 PM EDT [place] [address] Kira Thayer MD [facility] [place] [address] documented as of this encounter Visit Diagnoses Diagnosis COPD, very severe Chronic airway obstruction, not elsewhere classified documented in this encounter Care Teams Regional Extension Service Specialist Relationship Specialty Start Date End Date Belkys Bundy DO [address] [place] [address] PCP - General Family Medicine 03/21/19 documented as of this encounter
--- OUTSIDE RECORDS SUMMARY | 2024-04-26 13:24 | XMS_ITS | Encounter Summary ---
Author Organization [facility] [place] [address] Care Team Providers Care Activities Counselor Name Role Phone Belkys Bundy Primary Care Provider +1- [phone] Encounter Details Date Type Department Care Team (Latest Contact Info) Description 02/18/2021 9:22 AM EST - 02/18/2021 11:59 PM EST Hospital [place] [address] COPD, very severe Discharge Disposition: Home Social [...] End Date inhalational spacing device (Ricci Aerosol Kaufman Enhancer) Spacer .MEDSUPPLY 02/01/2020 levothyroxine (Synthroid) 100 [...] 11 07/16/2020 fluticasone propionate (FLONASE) 50 mcg/actuation [place], Suspension 02/01/2020 atorvastatin (Lipitor) 20 mg Tablet [...] 4:00 PM EDT [place] [address] Kira Thayer MD [facility] [place] [address] Scheduled Orders Name Type Priority Associated Diagnoses [...] / FVC LLN 69 % COMPAS PFT MFX78-17 Actual Pre-BD 0.30 L/s COMPAS PFT OHL13-22 Pre-BD % of Predicted 11 % COMPAS PFT [id number] Predicted 2.78 L/s COMPAS PFT BJL20-23 Pre-BD Z-Score -4.34 COMPAS PFT DLCO Hb [...] classified documented in this encounter Care Teams Activities Counselor Relationship Specialty Start Date End Date Belkys Bundy DO [address] [place] [address] PCP - General Family Medicine 03/21/19 documented as of this encounter
--- OUTSIDE RECORDS SUMMARY | 2024-04-26 13:24 | XMS_ITS | Encounter Summary ---
[place] [address] Care Team Providers Care Drama Director Name Role Phone Belkys Bundy Primary Care Provider +1- [phone] Encounter Details Date Type Department Care Team (Late st Contact Info) Description 08/20/2020 2:00 PM EDT TH Visit (TeleHealth) [place] [address] Juanis Osullivan, RT COPD, very severe Social [...] Jatin Sanchez participated in discussion Juanis Osullivan, MANAGER HEAVY EQUIPMENT,SOFT SUGAR OPERATOR HEAD documented in this encounter Miscellaneous Notes * [...] 4:00 PM EDT Office [place] [address] Kira Thayer MD [facility] [address] [place] [address] documented as of this encounter Visit Diagnoses Diagnosis COPD, very severe Chronic airway obstruction, not elsewhere classified documented in this encounter Care Teams Drama Director Relationship Specialty Start Date End Date Belkys Bundy DO [address] [place] [address] PCP - General Family Medicine 03/21/19 documented as of this encounter
--- OUTSIDE RECORDS SUMMARY | 2024-04-26 13:24 | XMS_ITS | Encounter Summary ---
[place] [address] Care Team Providers Care Networking Technician Name Role Phone Belkys Bundy Primary Care Provider +1- [phone] Encounter Details Date Type Department Care Team (Late st Contact Info) Description 09/24/2020 2:00 PM EDT TH Visit (TeleHealth) [place] [address] Juanis Osullivan, RT COPD, very severe Social [...] [place] Soilayanni participated in discussion Juanis Osullivan, ELECTRIC MOTOR TESTER,RESUME WRITER documented in this encounter Plan of Treatment Upcoming Encounters Date Type Department Care Team (Late st Contact Info) Description 08/27/2024 4:00 PM EDT Office [place] [address] Kira Thayer MD [facility] [place]MONARY [place] [address] documented as of this encounter Visit Diagnoses Diagnosis COPD, very severe Chronic airway obstruction, not elsewhere classified documented in this encounter Care Teams Networking Technician Relationship Specialty Start Date End Date Belkys Bundy DO [address] [place] [address] PCP - General Family Medicine 03/21/19 documented as of this encounter
--- OUTSIDE RECORDS SUMMARY | 2024-04-26 13:24 | XMS_ITS | Encounter Summary ---
[place] [address] Care Team Providers Care Final Inspector Paper Name Role Phone Belkys Bundy Primary Care Provider +1- [phone] Encounter Details Date Type Department Care Team (Late st Contact Info) Description 10/01/2020 2:00 PM EDT TH Visit (TeleHealth) [place] [address] Juanis Osullivan, RT COPD, very severe Social [...] oxygen concentrator and portable oxygen concentrator from [facility]. She noted that she is feeling significantly [...] modify activities to conserve energy. Juanis Osullivan, PROFESSOR OF ASTRONOMY,CLOTH SHRINKING MACHINE OPERATOR documented in this encounter Miscellaneous [...] 4:00 PM EDT [place] [address] Kira Thayer MD [facility] [place] [address] documented as of this encounter Visit Diagnoses Diagnosis COPD, very severe Chronic airway obstruction, not elsewhere classified documented in this encounter Care Teams Final Inspector Paper Relationship Specialty Start Date End Date Belkys Bundy DO [address] [place] [address] PCP - General Family Medicine 03/21/19 documented as of this encounter
--- OUTSIDE RECORDS SUMMARY | 2024-04-26 13:24 | XMS_ITS | Encounter Summary ---
[place] [address] Care Team Providers Care Hand Former Helper Name Role Phone Belkys Bundy Primary Care Provider +1- [phone] Encounter Details Date Type Department Care Team (Late st Contact Info) Description 01/09/2021 2:00 PM EDT TH Visit (TeleHealth) [place] [address] Juanis Osullivan, RT COPD, very severe Social [...] Pulmonary Rehabilitation Exercise: please see Dary Wheat's PRODUCT SAFETY HEAD note Sent update to Dr. Thayer. Juanis Osullivan, CYBER SECURITY CONSULTANT,TIN WORKER documented in this encounter Miscellaneous Notes * Treatment - Therapy - Dary Wheat, PRODUCT SAFETY HEAD - 01/09/2021 2:00 PM EDT Pulmonary Rehabilitation [...] 4:00 PM EDT [place] [address] Kira Thayer MD [facility] [place] [address] documented as of this encounter Visit Diagnoses Diagnosis COPD, very severe Chronic airway obstruction, not elsewhere classified documented in this encounter Care Teams Hand Former Helper Relationship Specialty Start Date End Date Belkys Bundy DO [address] [place] [address] PCP - General Family Medicine 03/21/19 documented as of this encounter
--- OUTSIDE RECORDS SUMMARY | 2024-04-26 13:24 | XMS_ITS | Encounter Summary ---
[place] [address] Care Team Providers Care Ballistics Professor Name Role Phone Belkys Bundy Primary Care Provider +1- [phone] Encounter Details Date Type Department Care Team (Late st Contact Info) Description 12/26/2020 2:00 PM EDT TH Visit (TeleHealth) [place] [address] Juanis Osullivan, RT COPD, very severe Social [...] see Dary Wheat's PT note Juanis Osullivan, CLOTH PRINTING BACK TENDER,DELIVERY MGR documented in this encounter Miscellaneous Notes * Treatment - Therapy - Dary Wheat, TV PRODUCTION ASSISTANT - 12/26/2020 2:00 PM EDT Pulmonary Rehabilitation [...] PM EDT Office [place] [address] Kira Thayer MD [facility] [address] [place] [address] documented as of this encounter Visit Diagnoses Diagnosis COPD, very severe Chronic airway obstruction, not elsewhere classified documented in this encounter Care Teams Ballistics Professor Relationship Specialty Start Date End Date Belkys Bundy DO [address] [place] [address] PCP - General Family Medicine 03/21/19 documented as of this encounter
--- OUTSIDE RECORDS SUMMARY | 2024-04-26 13:24 | XMS_ITS | Encounter Summary ---
Author Organization [facility] [place] [address] Care Team Providers Care Local Hazmat Driver Name Role Phone Belkys Bundy DO Primary Care Provider +1- [phone] Encounter Details Date Type Department Care Team (Late st Contact Info) Description 09/30/2020 Orders [place] [address] Kira Thayer MD [facility] [place] [address] COPD, very severe Social History Tobacco Use [...] 4:00 PM EDT [place] [address] Kira Thayer MD [facility] [place] [address] documented as of this encounter Visit Diagnoses Diagnosis COPD, very severe Chronic airway obstruction, not elsewhere classified documented in this encounter Care Teams Local Hazmat Driver Relationship Specialty Start Date End Date Belkys Bundy DO [address] [place] [address] PCP - General Family Medicine 03/21/19 documented as of this encounter
--- OUTSIDE RECORDS SUMMARY | 2024-04-26 13:24 | XMS_ITS | Encounter Summary ---
[place] [address] Care Team Providers Care Material Reclaimer Name Role Phone Belkys Bundy DO Primary Care Provider +1- [phone] Reason for Visit * Reason Onset Date Comments Ekg 10/15/2020 order requsition Encounter Details Date Type Department Care Team (Late st Contact Info) Description 10/15/2020 Telephone [place] [address] Emily Starr RN Ekg (order requsition) Social [...] submission confirmation time stamped for 10/15/2020 @ 1513. 4 pages with cover sheet. documented in this encounter Plan of Treatment Upcoming Encounters Date Type Department Care Team (Late st Contact Info) Description 08/27/2024 4:00 PM EDT Office [place] [address] Kira Thayer MD [facility] [place] [address] documented as of this encounter Visit Diagnoses Not on filedocumented in this encounter Care Teams Material Reclaimer Relationship Specialty Start Date End Date Belkys Bundy DO [address] [place] [address] PCP - General Family Medicine 03/21/19 documented as of this encounter
--- OUTSIDE RECORDS SUMMARY | 2024-04-26 13:24 | XMS_ITS | Encounter Summary ---
[place] [address] Care Team Providers Care Medicaid Service Coordinator Name Role Phone Belkys Bundy Primary Care Provider +1- [phone] Reason for Visit * Reason Onset Date Comments Referral 08/15/2020 Encounter Details Date Type Department Care Team (Late st Contact Info) Description 08/15/2020 [place] [address] Emily Starr RN Referral Social [...] PM EDT Rec'd call back from [facility], seeking confirmation of dated on CT images that were requested. RN updated that CT images would be needed for 01/14/2020 and 03/28/2018. Images to be sent to [facility]. * Telephone Encounter - Emily Starr RN - 08/15/2020 2:55 PM EDT RN called to get images sent to [facility] from 05/12/2020 and 01/15/2020. RN requested image CD from [facility] image library be generated and sent to [facility] Lung Transplant Team. documented in this encounter Plan of Treatment Upcoming Encounters Date Type Department Care Team (Late st Contact Info) Description 08/27/2024 4:00 PM EDT [place] [address] Kira Thayer MD [facility] [place] [address] documented as of this encounter Visit Diagnoses Not on filedocumented in this encounter Care Teams Medicaid Service Coordinator Relationship Specialty Start Date End Date Belkys Bundy DO [address] [place] [address] PCP - General Family Medicine 03/21/19 documented as of this encounter
--- OUTSIDE RECORDS SUMMARY | 2024-04-26 13:24 | XMS_ITS | Encounter Summary ---
Author Organization [facility] [place] [address] Care Team Providers Care Tub Tender Name Role Phone Belkys Bundy Primary Care Provider +1- [phone] Encounter Details Date Type Department Care Team (Latest Contact Info) Description 12/01/2020 1:00 PM EDT TH Visit (TeleHealth) [place] [address] Kira Thayer MD [facility] [place] [address] COPD, very severe; Supplemental oxygen dependent; Tobacco [...] the original note were not included. [facility] Section of Pulmonary and Critical Care Medicine Outpatient Consultation Date of Encounter: 12/01/2020 TELEHEALTH VISIT Patient identity was confirmed at beginning of this telehealth visit. Patient is aware that this telehealth visit replaces an in-office clinical evaluation, is a billable encounter and agrees to continue. The patient is in [place]. Reason for Evaluation: Ms. eJssie Sanchez returns to the pulmonary clinic for [...] 11 ??? fluticasone propionate (FLONASE) 50 mcg/actuation [place], Suspension ??? nicotine (NICODERM CQ) 21 mg/24 [...] Use with spacer 2 Inhaler 5 ??? zoksktdlhwp-vukkthocr-pmtrdmlx (Trelegy Ellipta) 200-62.5-25 mcg Disk with Device [...] transplant evaluation at a transplant center in [place]. She feels she would be interested in [...] visit - referral to lung transplant center ([facility]) in process - repeat yanet/DLCO with [...] day of visit. Kira Thayer MD [facility] PULMONOLOGY AT [facility] [address] Dept: [phone] Loc: [phone] documented in this encounter Plan of Treatment Upcoming Encounters Date Type Department Care Team (Late st Contact Info) Description 08/27/2024 4:00 PM EDT Office [place] [address] Kira Thayer MD [facility] [place] [address] Scheduled Orders Name Type Priority Associated Diagnoses Orde r Schedule Pulmonary Function Testing PFT Routine COPD, very severe Expected: 03/03/2021, Expires: 09/02/2021 documented as of this encounter Visit Diagnoses Diagnosis COPD, very severe Chronic airway obstruction, not elsewhere classified Supplemental oxygen dependent Dependence on supplemental oxygen Tobacco use Tobacco use disorder Environmental allergies Allergic rhinitis, cause unspecified documented in this encounter Care Teams Tub Tender Relationship Specialty Start Date End Date Belkys Bundy DO [address] [place] [address] PCP - General Family Medicine 03/21/19 documented as of this encounter
--- OUTSIDE RECORDS SUMMARY | 2024-04-26 13:24 | XMS_ITS | Encounter Summary ---
Author Organization [facility] [place] [address] Care Team Providers Care Windows Desktop Support Name Role Phone Niharika Belkys Virginie MYRICK Primary Care Provider +1- [phone] Encounter Details Date Type Department Care Team (Late st Contact Info) Description 01/30/2021 [place] [address] Juanis Osullivan, RT Social History Tobacco Use [...] 4:00 PM EDT [place] [address] Kira Thayer MD [facility] [place] [address] documented as of this encounter Visit Diagnoses Not on filedocumented in this encounter Care Teams Windows Desktop Support Relationship Specialty Start Date End Date Belkys Bundy DO [address] [place] [address] PCP - General Family Medicine 03/21/19 documented as of this encounter
--- OUTSIDE RECORDS SUMMARY | 2024-04-26 13:24 | XMS_ITS | Encounter Summary ---
Author Organization [facility] [place] [address] Care Team Providers Care Inside Plant Supervisor Name Role Phone Belkys Bundy DO Primary Care Provider +1- [phone] Encounter Details Date Type Department Care Team (Late st Contact Info) Description 01/09/2021 Tele[place] [address] Millicent Valles Social History Tobacco [...] 4:00 PM EDT [place] [address] Kira Thayer MD [facility] [place] [address] documented as of this encounter Visit Diagnoses Not on filedocumented in this encounter Care Teams Inside Plant Supervisor Relationship Specialty Start Date End Date Belkys Bundy DO [address] [place] [address] PCP - General Family Medicine 03/21/19 documented as of this encounter
--- OUTSIDE RECORDS SUMMARY | 2024-04-26 13:24 | XMS_ITS | Encounter Summary ---
Author Organization [facility] [place] [address] Care Team Providers Care Horticulture Instructor Name Role Phone Belkys Bundy DO Primary Care Provider +1- [phone] Encounter Details Date Type Department Care Team (Late st Contact Info) Description 10/22/2020 [place] [address] Millicent Valles Social History Tobacco [...] 4:00 PM EDT [place] [address] Kira Thayer MD [facility] [address] documented as of this encounter Visit Diagnoses Not on filedocumented in this encounter Care Teams Horticulture Instructor Relationship Specialty Start Date End Date Belkys Bundy DO [address] [place] [address] PCP - General Family Medicine 03/21/19 documented as of this encounter
--- OUTSIDE RECORDS SUMMARY | 2024-04-26 13:24 | XMS_ITS | Encounter Summary ---
Author Organization [facility] [place] [address] Care Team Providers Care Real Property Evaluator Name Role Phone Belkys Bundy Primary Care Provider +1- [phone] Encounter Details Date Type Department Care Team (Late st Contact Info) Description 01/09/2021 [place] [address] Kira Thayer MD [facility] [place] [address] Social History Tobacco Use Types Packs/Day Years [...] 4:00 PM EDT Office [place] [address] Kira Thayer MD [facility] [place] [address] documented as of this encounter Visit Diagnoses Not on filedocumented in this encounter Care Teams Real Property Evaluator Relationship Specialty Start Date End Date Belkys Bundy DO [address] [place] [address] PCP - General Family Medicine 03/21/19 documented as of this encounter
--- OUTSIDE RECORDS SUMMARY | 2024-04-26 13:24 | XMS_ITS | Encounter Summary ---
Author Organization [facility] [place] [address] Care Team Providers Care Washcloth Folder Name Role Phone Belkys Bundy Primary Care Provider +1- [phone] Encounter Details Date Type Department Care Team (Late st Contact Info) Description 09/30/2020 9:30 AM EDT Office [place] [address] Juanis Osullivan, RT COPD, very severe Social [...] O2: 93 % HR: 83 bpm Jessie Sancehz Able to tolerate pulse dose oxygen. Plan [...] 4:00 PM EDT Office [place] [address] Kira Thayer MD [facility] [place] [address] documented as of this encounter Visit Diagnoses Diagnosis COPD, very severe Chronic airway obstruction, not elsewhere classified documented in this encounter Care Teams Washcloth Folder Relationship Specialty Start Date End Date Belkys Bundy DO [address] [place] [address] PCP - General Family Medicine 03/21/19 documented as of this encounter
--- OUTSIDE RECORDS SUMMARY | 2024-04-26 13:24 | XMS_ITS | Encounter Summary ---
[place] [address] Care Team Providers Care Magnetic Tape Composer Operator Name Role Phone Belkys Bundy DO Primary Care Provider +1- [phone] Reason for Visit * Reason Onset Date Comments Medication Refill 10/10/2020 Encounter Details Date Type Department Care Team (Late st Contact Info) Description 10/10/2020 Refill [place] [address] Emily Starr RN COPD, very severe Social [...] PM EDT Office Visit [place] [address] Kira Thayer MD [facility] [place] [address] documented as of this encounter Visit Diagnoses Diagnosis COPD, very severe Chronic airway obstruction, not elsewhere classified documented in this encounter Care Teams Magnetic Tape Composer Operator Relationship Specialty Start Date End Date Belkys Bundy DO [address] [place] [address] PCP - General Family Medicine 03/21/19 documented as of this encounter
--- OUTSIDE RECORDS SUMMARY | 2024-04-26 13:24 | XMS_ITS | Encounter Summary ---
Author [facility] [place] [address] Care Team Providers Care China Painter Name Role Phone Belkys Bundy Primary Care Provider +1- [phone] Encounter Details Date Type Department Care Team (Late st Contact Info) Description 09/30/2020 [place] [address] Juanis Osullivan RT Social History Tobacco Use [...] 4:00 PM EDT [place] [address] Kira Thayer MD [facility] [place] [address] documented as of this encounter Visit Diagnoses Not on filedocumented in this encounter Care Teams China Painter Relationship Specialty Start Date End Date Belkys Bundy DO [address] [place] [address] [place] [address] PCP - General Family Medicine 03/21/19 documented as of this encounter
--- OUTSIDE RECORDS SUMMARY | 2024-04-26 13:24 | XMS_ITS | Encounter Summary ---
Author Organization [facility] [place] [address] Care Team Providers Care Reproduction Production Manager Name Role Phone Belkys Bundy Primary Care Provider +1- [phone] Encounter Details Date Type Department Care Team (Late st Contact Info) Description 12/08/2020 9:00 AM EDT [place] [address] Juanis Osullivan, RT COPD, very severe Social [...] Start Incentive spirometry per above. The [facility] monthly pulmonary support group meeting (Tuesday of the month from 4:30-5:30 pm) is available for ongoing free pulmonary education and support. If you have any questions or concerns, please let us know. Thank you. Juanis Osullivan, FINANCIAL SERVICES REPRESENTATIVE,HAND EXPANSION ENVELOPE MAKER [facility] Pulmonary Nylon Operator documented in this encounter Plan of Treatment Upcoming Encounters Date Type Department Care Team (Late st Contact Info) Description 08/27/2024 4:00 PM EDT [place] [address] Kira Thayer MD [facility] [place] [address] documented as of this encounter Visit Diagnoses Diagnosis COPD, very severe Chronic airway obstruction, not elsewhere classified documented in this encounter Care Teams Reproduction Production Manager Relationship Specialty Start Date End Date Belkys Bundy DO [address] [place] [address] PCP - General Family Medicine 03/21/19 documented as of this encounter
--- OUTSIDE RECORDS SUMMARY | 2024-04-26 13:24 | XMS_ITS | Encounter Summary ---
Author Organization [facility] [place] [address] Care Team Providers Care Drain Tile Press Operator Name Role Phone Belkys Bundy DO Primary Care Provider +1- [phone] Encounter Details Date Type Department Care Team (Late st Contact Info) Description 01/29/2021 Telephone [place] [address] Millicent Valles Social History Tobacco [...] 4:00 PM EDT Office [place] [address] Kira Thayer MD [facility] [place] [address] documented as of this encounter Visit Diagnoses Not on filedocumented in this encounter Care Teams Drain Tile Press Operator Relationship Specialty Start Date End Date Belkys Bundy DO [address] [place] [address] PCP - General Family Medicine 03/21/19 documented as of this encounter
--- OUTSIDE RECORDS SUMMARY | 2024-04-26 13:24 | XMS_ITS | Encounter Summary ---
Author Organization [facility] [place] [address] Care Team Providers Care Corner Cutter Machine Operator Name Role Phone Belkys Bundy DO Primary Care Provider +1- [phone] Encounter Details Date Type Department Care Team (Late st Contact Info) Description 08/29/2020 [place] [address] Monisha Khalil Social History Tobacco [...] 4:00 PM EDT [place] [address] Kira Thayer MD [facility] [place] [address] documented as of this encounter Visit Diagnoses Not on filedocumented in this encounter Care Teams Corner Cutter Machine Operator Relationship Specialty Start Date End Date Belkys Bundy DO [address] [place] [address] PCP - General Family Medicine 03/21/19 documented as of this encounter
--- OUTSIDE RECORDS SUMMARY | 2024-04-26 13:24 | XMS_ITS | Encounter Summary ---
[place] [address] Care Team Providers Care Dianetic Counselor Name Role Phone Belkys Bundy Primary Care Provider +1- [phone] Reason for Referral * Diagnostic Test (Routine) - Closed Specialty Diagnoses / Procedures Referred By Rossy levine Referred To Contact Radiology Diagnoses Pulmonary nodule Procedures CT Chest wo Contrast (Generic) Kira Thayer MD [facility] [place] [address] [facility] [place] [address] Referral ID Status Reason Start Date Expiration Date V isits Requested Visits Authorized [id number] Closed Specialty Service Requested 03/02/2021 08/30/2022 1 1 Encounter Details Date Type Department Care Team (Late st Contact Info) Description 02/18/2021 10:30 AM EST Office [place] [address] Kira Thayer MD [facility] [place] [address] COPD, very severe; Supplemental oxygen [...] 11 ??? fluticasone propionate (FLONASE) 50 mcg/actuation Rowe, Suspension ??? ondansetron (Zofran) 4 mg Tablet TAKE 1 TABLET BY MOUTH EVERY 8 HOURS IF NEEDED FOR NAUSEA AND VOMITING ??? atorvastatin (Lipitor) 20 mg Tablet ??? cyclobenzaprine (Flexeril) 10 mg Tablet Take 10 mg by mouth as needed. ??? dicyclomine (BENTYL) 20 mg Tablet TAKE 1 TABLET BY MOUTH TWICE A DAY IF NEEDED FOR STOMACH UPPSET ??? vehafuyzifs-jpyqatyuv-xohihvqg (Trelegy Ellipta) 200-62.5-25 mcg Disk with Device [...] lung transplant evaluationat a transplant center in [place]. She feels she would be interested in [...] ordered - referring to lung transplant center ([facility] and [facility]) - repeat yanet/DLCO with next visit Follow-up with in-office visit in 3 months. Thank you for involving me in Ms. Sanchez's care. Please feel free to contact me with any further questions or concerns. MD Omari Hogue [facility] PULMONOLOGY AT [facility] [address] Dept: [phone] Loc: [phone] documented in this encounter Plan of Treatment Upcoming Encounters Date Type Department Care Team (Late st Contact Info) Description 08/27/2024 4:00 PM EDT Office [place] [address] Kira Thayer MD [facility] [place] [address] documented as of this encounter Procedures Procedure [...] / FVC LLN 69 % COMPAS PFT CNR85-09 Actual Pre-BD 0.15 L/s COMPAS PFT IRV97-04 Pre-BD % of Predicted 5 % COMPAS PFT [id number] Predicted 2.75 L/s COMPAS PFT [id number] Pre-BD Z-Score -4.92 COMPAS PFT DLCO Hb [...] who have questions please contact the health wound care physician that requested your imaging first. ? Electronically signed by: Cori Schmidt MD, [facility] ([phone]), at 06/03/2021 9:35 AM Narrative 06/03/2021 9:35 [...] thoracic aorta stable at 3 cm. No [place] coronary artery calcification. Other mediastinal structures: No [...] ascendingthoracic aorta stable at 3 cm. No [place] coronary artery calcification. Other mediastinal structures: No [...] patients who have questions please contactthe health wound care physician that requested your imaging first. Kira Thayer MD IMG CT ORDERABLES * (ABNORMAL) Blood Gas Arterial (02/18/2021 11:45 AM EST) pH, Arterial 7.42 7.35 - 7.45 [facility] PCO2, Arterial 42 35 - 45 mmHg [facility] PO2, Arterial 75(L) 85 - 104 mmHg [facility] Bicarbonate, Arterial 26.6(H) 20.0 - 26.0 mmol/L [facility] Base Excess, Arterial 2.1 -3.0 - 3.0 mmol/L [facility] Hgb Blood Gas 14.6 11.7 - 15.5 g/dL [facility] Comment: Interpret with caution, 1 ml syringe may give rise to occasional discrepant Hgb results. Oxyhemoglobin, Arterial 94.1 94.0 - 97.0 % [facility] Carboxyhemoglob in, Arterial 1.4 % [facility] Comment: Nonsmokers: ??0.5-1.5% COHB Smokers: ??Variable, but usually less than 10% Toxic: 20 - 30% COHB Lethal: ??Greater than 60% COHB Methemoglobin, Arterial 0.3 <=1.5 % [facility] Na Whole Blood 140 135 - 145 mmol/L [facility] K Whole Blood 4.0 3.5 - 5.0 mmol/L [facility] Comment: Please note: ??Patients with WBC >100,000 may have falsely elevated Potassium levels. ??Contact the Clinical Chemistry Laboratory if there are any questions. ICa Whole Blood 1.20 1.15 - 1.33 mmol/L [facility] Comment: Note: ??Total bilirubin higher than 20 mg/dL may lead to falsely low ionized calcium. CL Whole Blood 105 98 - 107 mmol/L [facility] Gluc Whole Bld 76 65 - 199 mg/dL [facility] Comment:Diabetes: >=200 mg/d L plus symptoms. Lactate WB 0.9 0.5 - 2.2 mmol/L [facility] FIO2 Art 21 % [facility] PF Ratio Art 357 [facility] Blood Arterial Draw / Unknown 02/18/2021 11:45 AM EST 02/18/2021 11:52 AM EST Narrative Resulting Agency Comment Spec In Lab Kira Thayer MD CHEMISTRY ORDERABLES [facility] [place] [address] documented in this encounter Visit Diagnoses Diagnosis COPD, very severe Chronic airway obstruction, not elsewhere classified Supplemental oxygen dependent Dependence on supplemental oxygen Environmental allergies Allergic rhinitis, cause unspecified Pulmonary nodule Solitary pulmonary nodule COPD, very severe Chronic airway obstruction, not elsewhere classified Pulmonary nodule Solitary pulmonary nodule documented in this encounter Care Teams Dianetic Counselor Relationship Specialty Start Date End Date Belkys Bundy DO [address] [place] [address] PCP - General Family Medicine 03/21/19 documented as of this encounter
--- OUTSIDE RECORDS SUMMARY | 2024-04-26 13:24 | XMS_ITS | Encounter Summary ---
[place] [address] Care Team Providers Care Behavior Specialist Name Role Phone Belkys Bundy DO Primary Care Provider +1- [phone] Reason for Visit * Reason Onset Date Comments Ekg 11/03/2020 Availability/Kelli eduling Encounter Details Date Type Department Care Team (Late st Contact Info) Description 11/03/2020 [place] [address] Emily Starr RN Ekg (Availability/Schedulin g) Social [...] EDT Per Dr. Thayer's request, RN called [facility] Internal Medicine, office of Dr. Belkys [...] EDT Office [place] [address] Kira Thayer MD [facility] [place] [address] documented as of this encounter Visit Diagnoses Not on filedocumented in this encounter Care Teams Behavior Specialist Relationship Specialty Start Date End Date Belkys Bundy DO [address] [place] [address] PCP - General Family Medicine 03/21/19 documented as of this encounter
--- OUTSIDE RECORDS SUMMARY | 2024-04-26 13:24 | XMS_ITS | Encounter Summary ---
[place] [address] Care Team Providers Care Pantry Chef Name Role Phone Belkys Bundy Primary Care Provider +1- [phone] Encounter Details Date Type Department Care Team (Late st Contact Info) Description 08/08/2020 2:00 PM EDT TH Visit (TeleHealth) [place] [address] Juanis Osullivan, RT COPD, very severe Social [...] see Jethro Knapp's PT note Juanis Osullivan, GIZZARD PEELER,FURNITURE ASSEMBLER documented in this encounter Miscellaneous Notes [...] 4:00 PM EDT Office [place] [address] Kira Thayer MD [facility] [place] [address] documented as of this encounter Visit Diagnoses Diagnosis COPD, very severe Chronic airway obstruction, not elsewhere classified documented in this encounter Care Teams Pantry Chef Relationship Specialty Start Date End Date Belkys Bundy DO [address] [place] [address] PCP - General Family Medicine 03/21/19 documented as of this encounter
--- OUTSIDE RECORDS SUMMARY | 2024-04-26 13:24 | XMS_ITS | Encounter Summary ---
Author Organization [facility] [place] [address] Care Team Providers Care Pigeon Fancier Name Role Phone Belkys Bundy DO Primary Care Provider +1- [phone] Encounter Details Date Type Department Care Team (Late st Contact Info) Description 10/20/2020 Tele[place] [address] Millicent Valles Social History Tobacco [...] 4:00 PM EDT [place] [address] Kira Tahyer MD [facility] [place] [address] documented as of this encounter Visit Diagnoses Not on filedocumented in this encounter Care Teams Pigeon Fancier Relationship Specialty Start Date End Date Belkys Bundy DO [address] [place] [address] PCP - General Family Medicine 03/21/19 documented as of this encounter
--- OUTSIDE RECORDS SUMMARY | 2024-04-26 13:24 | XMS_ITS | Encounter Summary ---
[place] [address] Care Team Providers Care Facilities Assistant Name Role Phone Belkys Bundy Primary Care Provider +1- [phone] Encounter Details Date Type Department Care Team (Late st Contact Info) Description 12/30/2020 1:00 PM EDT TH Visit (TeleHealth) [place] [address] Juanis Osullivan, RT COPD, very severe Social [...] had other commitments this afternoon. Juanis Osullivan, SILICA FILTER OPERATOR,REGULATOR PIN INSERTER documented in this encounter Miscellaneous Notes * Treatment - Therapy - Dary Wheat, LOG BRANDER - 12/30/2020 1:00 PM EDT Pulmonary Rehabilitation [...] 4:00 PM EDT Office [place] [address] Kira Thayer MD [facility] [place] [address] documented as of this encounter Visit Diagnoses Diagnosis COPD, very severe Chronic airway obstruction, not elsewhere classified documented in this encounter Care Teams Facilities Assistant Relationship Specialty Start Date End Date Belkys Bundy DO [address] [place] [address] PCP - General Family Medicine 03/21/19 documented as of this encounter
--- OUTSIDE RECORDS SUMMARY | 2024-04-26 13:24 | XMS_ITS | Encounter Summary ---
[place] [address] Care Team Providers Care Client Coordinator Name Role Phone Belkys Bundy Primary Care Provider +1- [phone] Encounter Details Date Type Department Care Team (Late st Contact Info) Description 10/15/2020 2:00 PM EDT TH Visit (TeleHealth) [place] [address] Juanis Osullivan, RT COPD, very severe Social [...] Lung Disorders- part 1 Presenter: Juanis Osullivan RRT,WEBBING SUPERVISOR Jessie Sanchez participated in discussion Regarding normal lungs and changes with asthma and COPD. Juanis Osullivan RRT,WEBBING SUPERVISOR documented in this encounter Miscellaneous Notes [...] 4:00 PM EDT Office Visit [place] [address] Kira Thayer MD [facility] [address] [place] [address] documented as of this encounter Visit Diagnoses Diagnosis COPD, very severe Chronic airway obstruction, not elsewhere classified documented in this encounter Care Teams Client Coordinator Relationship Specialty Start Date End Date Belkys Bundy DO [address] [place] [address] PCP - General Family Medicine 03/21/19 documented as of this encounter
--- OUTSIDE RECORDS SUMMARY | 2024-04-26 13:24 | XMS_ITS | Encounter Summary ---
Author Organization [facility] [place] [address] Care Team Providers Care Electronics Repair Technician Name Role Phone AnaBelkys moise Primary Care Provider +1- [phone] Encounter Details Date Type Department Care Team (Late st Contact Info) Description 11/05/2020 [place] [address] Juanis Osullivan, RT Social History Tobacco Use [...] 4:00 PM EDT [place] [address] Kira Thayer MD [facility] [place] [address] documented as of this encounter Visit Diagnoses Not on filedocumented in this encounter Care Teams Electronics Repair Technician Relationship Specialty Start Date End Date Belkys Bundy DO [address] [place] [address] PCP - General Family Medicine 03/21/19 documented as of this encounter
--- OUTSIDE RECORDS SUMMARY | 2024-04-26 13:24 | XMS_ITS | Encounter Summary ---
Author Organization [facility] [place] [address] Care Team Providers Care Octave Board Assembler Name Role Phone AnaBelkys moise Primary Care Provider +1- [phone] Encounter Details Date Type Department Care Team (Late st Contact Info) Description 01/27/2021 Tele[place] [address] Juanis Osullivan, RT Social History Tobacco Use [...] bed last Wed, 01/21. She was sitting guyanese style on the bed and reaching out [...] EDT Office [place] [address] Kira Thayer MD [facility] [place] [address] documented as of this encounter Visit Diagnoses Not on filedocumented in this encounter Care Teams Octave Board Assembler Relationship Specialty Start Date End Date Belkys Bundy DO [address] [place] [address] PCP - General Family Medicine 03/21/19 documented as of this encounter
--- OUTSIDE RECORDS SUMMARY | 2024-04-26 13:24 | XMS_ITS | Encounter Summary ---
Author Organization [facility] [place] [address] Care Team Providers Care Warehouse Pricing And Inventory Clerk Name Role Phone Belkys Bundy DO Primary Care Provider +1- [phone] Encounter Details Date Type Department Care Team (Late st Contact Info) Description 10/16/2020 Orders [place] [address] Kira Thayer MD [facility] [place] [address] COPD, very severe Social History Tobacco Use [...] 4:00 PM EDT Office [place] [address] Kira Thayer MD [facility] [place] [address] documented as of this encounter Visit Diagnoses Diagnosis COPD, very severe Chronic airway obstruction, not elsewhere classified documented in this encounter Care Teams Warehouse Pricing And Inventory Clerk Relationship Specialty Start Date End Date Belkys Bundy DO [address] [place] [address] PCP - General Family Medicine 03/21/19 documented as of this encounter
--- OUTSIDE RECORDS SUMMARY | 2024-04-26 13:24 | XMS_ITS | Encounter Summary ---
Author Organization [facility] [place] [address] Care Team Providers Care Forestry Contractor Name Role Phone Belkys Bundy Primary Care Provider +1- [phone] Encounter Details Date Type Department Care Team (Late st Contact Info) Description 08/29/2020 Telephone [place] [address] Sindy Brewer, RT Social History Tobacco Use [...] I encouraged Zoe to call the on-call Water Mangle Tender if she continues to have difficulty over the weekend. RT Macario documented in this encounter Plan of Treatment Upcoming Encounters Date Type Department Care Team (Late st Contact Info) Description 08/27/2024 4:00 PM EDT Office [place] [address] Kira Thayer MD [facility] [place] [address] documented as of this encounter Visit Diagnoses Not on filedocumented in this encounter Care Teams Forestry Contractor Relationship Specialty Start Date End Date Belkys Bundy DO [address] [place] [address] PCP - General Family Medicine 03/21/19 documented as of this encounter
--- OUTSIDE RECORDS SUMMARY | 2024-04-26 13:24 | XMS_ITS | Encounter Summary ---
[place] [address] Care Team Providers Care Milieu Manager Name Role Phone Belkys Bundy Primary Care Provider +1- [phone] Encounter Details Date Type Department Care Team (Late st Contact Info) Description 10/24/2020 2:00 PM EDT TH Visit (TeleHealth) [place] [address] Juanis Osullivan, RT COPD, very severe Social [...] pack this weekend [facility]. Jessie Sanchez exercised [...] see Jethro Knapp's PT note Juanis Osullivan, INTERNAL SALES ENGINEER,MOLD BUNCH TRIMMER documented in this encounter Miscellaneous Notes [...] for his first sleep away camp with [employer]. EKG date have to reschedule form 11/03 [...] 4:00 PM EDT [place] [address] [facility] [place] [address] documented as of this encounter Visit Diagnoses Diagnosis COPD, very severe Chronic airway obstruction, not elsewhere classified documented in this encounter Care Teams Milieu Manager Relationship Specialty Start Date End Date Belkys Bundy DO [address] [place] [address] PCP - General Family Medicine 03/21/19 documented as of this encounter
--- OUTSIDE RECORDS SUMMARY | 2024-04-26 13:25 | XMS_ITS | Encounter Summary ---
Author Organization Formerly [facility] Address [facility] [place] [address] Care Team Providers Care Gravel Weigher Name Role Phone Belkys Bundy DO Primary Care Provider +1- [phone] Reason for Visit * Reason Comments Skin Check * Consultation (Routine) - Specialty Diagnoses / Procedures Referred By Rossy levine Referred To Contact Dermatology Diagnoses Disorder of the skin and subcutaneous tissue, unspecified Lesion left upper chest Procedures Consult Belkys Bundy DO [address] [place] [address] Deven Payan MD [address] [facility], [place] [address] Referral ID Status Reason Start Date Expiration Date V isits Requested Visits Authorized [id number] Consult, Test & Treat PCP Updated and/or Approved 03/18/2019 03/17/2020 6 6 Encounter Details Date Type Department Care Team (Late st Contact Info) Description 05/17/2019 8:15 AM EST Office Visit Dermatology at [address] [place] [address] Deven Payan MD [address] [facility] [place] [address] Sebaceous hyperplasia; Telangiectasia Social History [...] 4:00 PM EDT Office [place] [address] Kira Thayer MD [facility] [address] [place] [address] documented as of this encounter Visit Diagnoses Diagnosis Sebaceous hyperplasia Other specified disease of sebaceous glands Telangiectasia Other and unspecified capillary diseases documented in this encounter Care Teams Gravel Weigher Relationship Specialty Start Date End Date Belkys Bundy DO [address] [place] [address] PCP - General Family Medicine 03/21/19 documented as of this encounter
--- OUTSIDE RECORDS SUMMARY | 2024-04-26 13:25 | XMS_ITS | Encounter Summary ---
[place] [address] Care Team Providers Care Supervisor Assembly And Packing Name Role Phone Belkys Bundy Primary Care Provider +1- [phone] Encounter Details Date Type Department Care Team (Late st Contact Info) Description 07/04/2020 2:00 PM EDT TH Visit (TeleHealth) [place] [address] Juanis Osullivan, RT COPD, very severe Social [...] see Jethro Knapp PT note Juanis Osullivan, SUSTAINABLE AGRICULTURE FACULTY,NURSE TECH documented in this encounter Miscellaneous Notes [...] 4:00 PM EDT Office [place] [address] Kira Thayer MD [facility] [place] [address] documented as of this encounter Visit Diagnoses Diagnosis COPD, very severe Chronic airway obstruction, not elsewhere classified documented in this encounter Care Teams Supervisor Assembly And Packing Relationship Specialty Start Date End Date Belkys Bundy DO [address] [place] [address] PCP - General Family Medicine 03/21/19 documented as of this encounter
--- OUTSIDE RECORDS SUMMARY | 2024-04-26 13:25 | XMS_ITS | Encounter Summary ---
[place] [address] Care Team Providers Care Globe Changer Name Role Phone Belkys Bundy Primary Care Provider +1- [phone] Reason for Visit * Reason Onset Date Comments Request For Record 07/18/2020 EKG Encounter Details Date Type Department Care Team (Late st Contact Info) Description 07/18/2020 Telephone [place] [address] Emily Starr RN Request For Record (EKG) [...] submission confirmation time stamped for 07/18/2020 @ 0233. 1 page documented in this encounter Plan of Treatment Upcoming Encounters Date Type Department Care Team (Late st Contact Info) Description 08/27/2024 4:00 PM EDT Office [place] [address] Kira Thayer MD [facility] [place] [address] documented as of this encounter Visit Diagnoses Not on filedocumented in this encounter Care Teams Globe Changer Relationship Specialty Start Date End Date Belkys Bundy DO [address] [place] [address] PCP - General Family Medicine 03/21/19 documented as of this encounter
--- OUTSIDE RECORDS SUMMARY | 2024-04-26 13:25 | XMS_ITS | Encounter Summary ---
Author Organization [facility] [place] [address] Care Team Providers Care Cover Remover Name Role Phone DakotaJessie beckham Senait MARCELINO Primary Care Provider [phone] Reason for Visit * Reason Comments Follow-up Encounter Details Date Type Department Care Team (Late st Contact Info) Description 08/21/2014 9:30 AM EDT [place] [address] Saad Chang Jr., MD [facility] [place] [address] Flank pain Discharge Disposition: Home Social History [...] this, she had a repeat ultrasound at [facility] and thissuggested an 8 mm non-obstructing stone [...] pack years 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
--- OUTSIDE RECORDS SUMMARY | 2024-04-26 13:25 | XMS_ITS | Encounter Summary ---
Author Organization [facility] [place] [address] Care Team Providers Care Exhibitions Curator Name Role Phone Jessie Dover Senait MARCELINO Primary Care Provider [phone] Encounter Details Date Type Department Care Team (Late st Contact Info) Description 04/04/2016 Ancillary Procedure Radiology Library at [facility] [place] [address] Sammie Johnson MD [facility] [place] [address] Social History Tobacco Use Types Packs/Day Years [...] Visit Pulmonology at [facility] [place] [address] Kira Thayer MD [facility] [place] [address] documented as of this encounter Procedures Procedure [...] Johnson MD IMG FILM LIBRARY ORD ERABLES [place], [place] documented in this encounter Visit Diagnoses Not on filedocumented in this encounter Care Teams Exhibitions Curator Relationship Specialty Start Date End Date Jessie Dover APRN PCP - General 06/19/13 08/29/18 documented as of this encounter
--- OUTSIDE RECORDS SUMMARY | 2024-04-26 13:25 | XMS_ITS | Encounter Summary ---
Author Organization [facility] [place] [address] Care Team Providers Care Psychiatric Social Worker Supervisor Name Role Phone Belkys Bundy DO Primary Care Provider +1- [phone] Encounter Details Date Type Department Care Team (Late st Contact Info) Description 07/04/2020 Telephone [place] [address] Eva Swenson Social History Tobacco [...] 4:00 PM EDT Office [place] [address] Kira Thayer MD [facility] [address] documented as of this encounter Visit Diagnoses Not on filedocumented in this encounter Care Teams Psychiatric Social Worker Supervisor Relationship Specialty Start Date End Date Belkys Bundy DO [address] [place] [address] PCP - General Family Medicine 03/21/19 documented as of this encounter
--- OUTSIDE RECORDS SUMMARY | 2024-04-26 13:25 | XMS_ITS | Encounter Summary ---
Author Organization [facility] [place] [address] Care Team Providers Care Public Affairs Director Name Role Phone Belkys Bundy DO Primary Care Provider +1- [phone] Encounter Details Date Type Department Care Team (Late st Contact Info) Description 05/12/2020 Telephone [place] [address] Cristin Block Social History Tobacco Use Types [...] EDT Office [place] [address] Kira Thayer MD [facility] [place] [address] documented as of this encounter Visit Diagnoses Not on filedocumented in this encounter Care Teams Public Affairs Director Relationship Specialty Start Date End Date Belkys Bundy DO [address] [place] [address] PCP - General Family Medicine 03/21/19 documented as of this encounter
--- OUTSIDE RECORDS SUMMARY | 2024-04-26 13:25 | XMS_ITS | Encounter Summary ---
Author Organization [facility] [place] [address] Care Team Providers Care Political Scientist Name Role Phone Belkys Bundy DO Primary Care Provider +1- [phone] Encounter Details Date Type Department Care Team (Late st Contact Info) Description 05/28/2020 Notes Only Pulmonology at [facility] [place] [address] Juanis Osullivan RT Social History Tobacco Use [...] 4:00 PM EDT Office [place] [address] Kira Thayer MD [facility] [place] [address] documented as of this encounter Visit Diagnoses Not on filedocumented in this encounter Care Teams Political Scientist Relationship Specialty Start Date End Date Belkys Bundy DO [address] [place] [address] PCP - General Family Medicine 03/21/19 documented as of this encounter
--- OUTSIDE RECORDS SUMMARY | 2024-04-26 13:25 | XMS_ITS | Encounter Summary ---
Author Organization [facility] [place] [address] Care Team Providers Care Pcmh Specialist Name Role Phone Jessie Dover Senait MARCELINO Primary Care Provider [phone] Encounter Details Date Type Department Care Team (Late st Contact Info) Description 07/27/2018 Ancillary Procedure Radiology Library at [facility] [place] [address] Sammie Johnson MD [facility] [place] [address] Social History Tobacco Use Types Packs/Day Years [...] 4:00 PM EDT Office Visit Pulmonology at [facility] [place] [address] Kira Thayer MD [facility] [place] [address] documented as of this encounter Procedures Procedure Name Priority Date/Time Associated Diagnosis Comments FILM LIBRARY STORAGE ONLY ULTRASOUND STUDY Routine 07/27/2018 12:00 AM EDT documented in this encounter Results * Film Library- Storage Only Ultrasound Study (07/27/2018 12:00 AM EDT) Narrative [facility] - 10/20/2018 11:51 AM EDT This exam is auto-finalizing. It's purpose is for storage only. Sammie Johnson MD IMG FILM LIBRARY ORD ERABLES [place], [place] documented in this encounter Visit Diagnoses Not on filedocumented in this encounter Care Teams Pcmh Specialist Relationship Specialty Start Date End Date Jessie Dover APRN PCP - General 06/19/13 08/29/18 documented as of this encounter
--- OUTSIDE RECORDS SUMMARY | 2024-04-26 13:25 | XMS_ITS | Encounter Summary ---
Author Organization [facility] [place] [address] Care Team Providers Care Webbing Weaver Name Role Phone Belkys Bundy Primary Care Provider +1- [phone] Encounter Details Date Type Department Care Team (Late st Contact Info) Description 06/13/2020 2:00 PM EST TH Visit (TeleHealth) [place] [address] Juanis Osullivan, RT COPD, very severe Social [...] see Jennifer Morales's PT note Juanis Osullivan, SPINNING BATH PATROLLER,CLERICAL SUPPORT documented in this encounter Miscellaneous Notes * [...] 4:00 PM EDT Office [place] [address] Kira Thayer MD [facility] [place] [address] documented as of this encounter Visit Diagnoses Diagnosis COPD, very severe Chronic airway obstruction, not elsewhere classified documented in this encounter Care Teams Webbing Weaver Relationship Specialty Start Date End Date Belkys Bundy DO [address] [place] [address] PCP - General Family Medicine 03/21/19 documented as of this encounter
--- OUTSIDE RECORDS SUMMARY | 2024-04-26 13:25 | XMS_ITS | Encounter Summary ---
[place] [address] Care Team Providers Care Grommet Machine Operator Name Role Phone Belkys Bundy Primary Care Provider +1- [phone] Encounter Details Date Type Department Care Team (Late st Contact Info) Description 07/09/2020 2:00 PM EDT TH Visit (TeleHealth) [place] [address] Juanis Osullivan, RT COPD, very severe Social [...] mop for energy conservation strategy Juanis Osullivan, STRATEGIC PLANNING ANALYST,CONFIGURATION MANAGEMENT CONSULTANT documented in this encounter Miscellaneous Notes [...] 4:00 PM EDT Office [place] [address] Kira Thayer MD [facility] [place] [address] documented as of this encounter Visit Diagnoses Diagnosis COPD, very severe Chronic airway obstruction, not elsewhere classified documented in this encounter Care Teams Grommet Machine Operator Relationship Specialty Start Date End Date Belkys Bundy DO [address] [place] [address] PCP - General Family Medicine 03/21/19 documented as of this encounter
--- OUTSIDE RECORDS SUMMARY | 2024-04-26 13:25 | XMS_ITS | Encounter Summary ---
Author Organization [facility] [place] [address] Care Team Providers Care Pottery Decorator Name Role Phone Belkys Bundy DO Primary Care Provider +1- [phone] Encounter Details Date Type Department Care Team (Late st Contact Info) Description 03/27/2019 [place] [address] Cristin Block Social History Tobacco Use Types [...] 4:00 PM EDT [place] [address] Kira Thayer MD [facility] PULMONARY MEDICINE [place], [place] [address] documented as of this encounter Visit Diagnoses Not on filedocumented in this encounter Care Teams Pottery Decorator Relationship Specialty Start Date End Date Belkys Bundy DO [address] [place] [address] PCP - General Family Medicine 03/21/19 documented as of this encounter
--- OUTSIDE RECORDS SUMMARY | 2024-04-26 13:25 | XMS_ITS | Encounter Summary ---
Author Organization [place] [address] Care Team Providers Care Blacksmith Hammer Operator Name Role Phone Belkys Bundy Primary Care Provider +1- [phone] Encounter Details Date Type Department Care Team (Latest Contact Info) Description 06/20/2020 2:00 PM EST TH Visit (TeleHealth) [place] [address] Juanis Osullivan, RT Supplemental oxygen dependent; COPD, [...] 4:00 PM EDT Office [place] [address] Kira Thayer MD [facility] [place] [address] documented as of this encounter Visit Diagnoses Diagnosis 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
--- OUTSIDE RECORDS SUMMARY | 2024-04-26 13:25 | XMS_ITS | Encounter Summary ---
[place] [address] Care Team Providers Care Pot Washer Name Role Phone Belkys Bundy Primary Care Provider +1- [phone] Encounter Details Date Type Department Care Team (Late st Contact Info) Description 07/23/2020 2:00 PM EDT TH Visit (TeleHealth) [place] [address] Juanis Osullivan, RT COPD, very severe Social [...] Jessie Sanchez participated in discussion Juanis Osullivan, PRINT SHOP ASSISTANT,CIVILIAN JAIL OFFICER documented in this encounter Miscellaneous Notes [...] 4:00 PM EDT [place] [address] Kira Thayer MD [facility] [place] [address] documented as of this encounter Visit Diagnoses Diagnosis COPD, very severe Chronic airway obstruction, not elsewhere classified documented in this encounter Care Teams Pot Washer Relationship Specialty Start Date End Date Belkys Bundy DO [address] [place] [address] PCP - General Family Medicine 03/21/19 documented as of this encounter
--- OUTSIDE RECORDS SUMMARY | 2024-04-26 13:25 | XMS_ITS | Encounter Summary ---
Author Organization [facility] [place] [address] Care Team Providers Care Flat Surfacer Name Role Phone Belkys Bundy DO Primary Care Provider +1- [phone] Encounter Details Date Type Department Care Team (Late st Contact Info) Description 01/22/2020 Telephone [place] [address] Cristin Block Social History Tobacco Use Types [...] 4:00 PM EDT Office [place] [address] Kira Thayer MD [facility] PULMONARY MEDICINE [place], [place] [address] documented as of this encounter Visit Diagnoses Not on filedocumented in this encounter Care Teams Flat Surfacer Relationship Specialty Start Date End Date Belkys Bundy DO [address] [place] [address] PCP - General Family Medicine 03/21/19 documented as of this encounter
--- OUTSIDE RECORDS SUMMARY | 2024-04-26 13:25 | XMS_ITS | Encounter Summary ---
Author Organization [facility] [place] [address] Care Team Providers Care Automatic Outsole Cutter Name Role Phone Belkys Bundy DO Primary Care Provider +1- [phone] Encounter Details Date Type Department Care Team (Late st Contact Info) Description 01/24/2020 [place] [address] Cristin Block Social History Tobacco Use Types [...] 4:00 PM EDT [place] [address] Kira Thayer MD [facility] [place] [address] documented as of this encounter Visit Diagnoses Not on filedocumented in this encounter Care Teams Automatic Outsole Cutter Relationship Specialty Start Date End Date Belkys Bundy DO [address] [place] [address] PCP - General Family Medicine 03/21/19 documented as of this encounter
--- OUTSIDE RECORDS SUMMARY | 2024-04-26 13:25 | XMS_ITS | Encounter Summary ---
Author Organization Formerly [facility] Address [facility] [place] [address] Care Team Providers Care Director General Name Role Phone Belkys Bundy Primary Care Provider +1- [phone] Encounter Details Date Type Department Care Team (Late st Contact Info) Description 05/02/2020 Telephone [place] [address] Kira Thayer MD [facility] [place] [address] Social History Tobacco Use Types Packs/Day Years [...] Jessie said if can not connect with [employer] to call her home number. documented in this encounter Plan of Treatment Upcoming Encounters Date Type Department Care Team (Late st Contact Info) Description 08/27/2024 4:00 PM EDT Office [place] [address] Kira Thayer MD [facility] [place] [address] documented as of this encounter Visit Diagnoses Not on filedocumented in this encounter Care Teams Director General Relationship Specialty Start Date End Date Belkys Bundy DO [address] [place] [address] PCP - General Family Medicine 03/21/19 documented as of this encounter
--- OUTSIDE RECORDS SUMMARY | 2024-04-26 13:25 | XMS_ITS | Encounter Summary ---
Author Organization [facility] [place] [address] Care Team Providers Care Nurse Practitioner Home Assessments Name Role Phone Belkys Bundy DO Primary Care Provider +1- [phone] Encounter Details Date Type Department Care Team (Late st Contact Info) Description 05/26/2020 Telephone [place] [address] Juanis Osullivan, RT Social History [...] [place] [address] Kira Thayer MD [facility] [place] [address] documented as of this encounter Visit Diagnoses Not on filedocumented in this encounter Care Teams Nurse Practitioner Home Assessments Relationship Specialty Start Date End Date Belkys Bundy DO [address] [place] [address] PCP - General Family Medicine 03/21/19 documented as of this encounter
--- OUTSIDE RECORDS SUMMARY | 2024-04-26 13:25 | XMS_ITS | Encounter Summary ---
[place] [address] Care Team Providers Care Investment Banking Manager Name Role Phone Belkys Bundy Primary Care Provider +1- [phone] Reason for Visit * Reason Onset Date Comments Shortness of Breath 07/18/2020 Encounter Details Date Type Department Care Team (Late st Contact Info) Description 07/18/2020 Telephone [place] [address] Emily Starr, RN Shortness of Breath Social [...] however has not received results yet.RN called [facility] for results, and was notified that lab sampling was taken on 07/17/2020, and resultsare negative. Forwarding to Dr. Thayer for update. documented in this encounter Plan of Treatment Upcoming Encounters Date Type Department Care Team (Late st Contact Info) Description 08/27/2024 4:00 PM EDT Office [place] [address] Kira Thayer MD [facility] [place] [address] documented as of this encounter Visit Diagnoses Not on filedocumented in this encounter Care Teams Investment Banking Manager Relationship Specialty Start Date End Date Belkys Bundy DO [address] [place] [address] PCP - General Family Medicine 03/21/19 documented as of this encounter
--- OUTSIDE RECORDS SUMMARY | 2024-04-26 13:25 | XMS_ITS | Encounter Summary ---
Author Organization [facility] [address] Care Team Providers Care Earth Science Faculty Member Name Role Phone Belkys Bundy Primary Care Provider +1- [phone] Encounter Details Date Type Department Care Team (Late st Contact Info) Description 06/11/2020 2:00 PM EST TH Visit (TeleHealth) [place] [address] Juanis Osullivan RT COPD, very severe Social [...] EDT Office [place] [address] Kira Thayer MD [facility] [place] [address] documented as of this encounter Visit Diagnoses Diagnosis COPD, very severe Chronic airway obstruction, not elsewhere classified documented in this encounter Care Teams Earth Science Faculty Member Relationship Specialty Start Date End Date Belkys Bundy DO [address] [place] [address] PCP - General Family Medicine 03/21/19 documented as of this encounter
--- OUTSIDE RECORDS SUMMARY | 2024-04-26 13:25 | XMS_ITS | Encounter Summary ---
Author Organization Formerly [facility] [place] [address] Care Team Providers Care Craft Coordinator Name Role Phone Belkys Bundy DO Primary Care Provider +1- [phone] Encounter Details Date Type Department Care Team (Late st Contact Info) Description 01/14/2020 Ancillary Procedure Radiology Library at [facility] [place] [id number] Kira Thayer MD [facility] [place] [address] Social History Tobacco Use Types Packs/Day Years [...] 4:00 PM EDT Office Visit Pulmonology at [facility] [place] [address] Kira Thayer MD [facility] [place] [address] documented as of this encounter Procedures Procedure [...] FILM LIBRARY ORD ERABLES Performing Organization Address City/State/[facility] Co de Phone Number [place], [place] documented in this encounter Visit Diagnoses Not on filedocumented in this encounter Care Teams Craft Coordinator Relationship Specialty Start Date End Date Belkys Bundy DO [address] [place] [address] PCP - General Family Medicine 03/21/19 documented as of this encounter
--- OUTSIDE RECORDS SUMMARY | 2024-04-26 13:25 | XMS_ITS | Encounter Summary ---
Author Organization [facility] [place] [address] Care Team Providers Care Wholesale Manager Name Role Phone Belkys Bundy Primary Care Provider +1- [phone] Encounter Details Date Type Department Care Team (Late st Contact Info) Description 06/11/2020 Telephone Pulmonology at [facility] [place] [phone] Juanis Osullivan RT Social History Tobacco Use [...] 4:00 PM EDT [place] [address] Kira Thayer MD [facility] [address] [place] [address] documented as of this encounter Visit Diagnoses Not on filedocumented in this encounter Care Teams Wholesale Manager Relationship Specialty Start Date End Date Belkys Bundy DO [address] [place] [address] PCP - General Family Medicine 03/21/19 documented as of this encounter
--- OUTSIDE RECORDS SUMMARY | 2024-04-26 13:25 | XMS_ITS | Encounter Summary ---
Author Organization [facility] [place] [address] Care Team Providers Care Rug Designer Name Role Phone Belkys Bundy DO Primary Care Provider +1- [phone] Encounter Details Date Type Department Care Team (Late st Contact Info) Description 05/06/2020 [place]phone [place] [address] Juanis Osullivan RT Social History Tobacco Use [...] RT - 05/06/2020 1:50 PM EST Called Ejssie Daniel at home: schedule PFT ( spirometry, DLCO, [...] 4:00 PM EDT Office [place] [address] Kira Thayer MD [facility] [place] [address] documented as of this encounter Visit Diagnoses Not on filedocumented in this encounter Care Teams Rug Designer Relationship Specialty Start Date End Date Belkys Bundy DO [address] [place] [address] PCP - General Family Medicine 03/21/19 documented as of this encounter
--- OUTSIDE RECORDS SUMMARY | 2024-04-26 13:25 | XMS_ITS | Encounter Summary ---
Author Organization [facility] Address [facility] [place] [address] Care Team Providers Care Runner Out Name Role Phone OliverBelkys moore Virginie MYRICK Primary Care Provider +1- [phone] Reason for Visit * Reason Comments Follow-up * Rehabilitation (Routine) - Closed Specialty Diagnoses / Procedures Referred By Rossy levine Referred To Contact Pulmonology Diagnoses Chronic obstructive pulmonary disease, unspecified COPD type Supplemental oxygen dependent Kira Thayer MD [facility] [place] [address] [facility] [place] [address] Referral ID Status Reason Start Date Expiration Date V isits Requested Visits Authorized [id number] Closed Evaluate and Treat 04/25/2020 04/25/2021 36 36 Encounter Details Date Type Department Care Team (Late st Contact Info) Description 05/26/2020 1:00 PM EST Office [place] [address] Juanis Osullivan, RT Chronic obstructive [...] preparation for potential lung transplant Juanis Osullivan, VOCAL PERFORMER,BILL SORTER documented in this encounter Progress Notes * [...] 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 Prior to covid pandemic she enjoyed going to [place] weekly. Currently connected with palliative care Nutrition: [...] dyspnea Covid-19 immunization: Jessie Sanchez lives in [place] and understood that she needed a medical note related to high risk individual to be able to receive covid-19 vaccine. Provided copy of her telehealth visit with Dr. Thayer that includes recommendation for her to receive her Covid-19 vaccines. Changes in Pulmonary Rehabilitation secondary to Covid-19 precautions. The pulmonary rehabilitation program currently meets via [employer] weekly for education and participants continue with their home exercise program with weekly review with the pulmonary rehab staff. The program is under the direction of the medical resident, Dr. Kervin Steiner. Educational classes provided regarding anatomy/physiology of lung disease, breathing retraining, medications, warning signs of infection, environmental risk factors, exercise, energy conservation, stress management and relaxation techniques, coping with a chronic lung disease, nutritional and lung disease, community resources, travel and lung disease. The patient???s progress will be reviewed with the medical resident every 2-4 weeks during the program. Reviewed [...] severe (almost maximal) 10 [facility] [place] ([facility]) Dyspnea Scale: 0: Breathless with strenuous [...] 4:00 PM EDT Office [place] [address] Kira Thayer MD [facility] [place] [address] documented as of this encounter Visit Diagnoses Diagnosis Chronic obstructive pulmonary disease, unspecified COPD type- Primary COPD, very severe Chronic airway obstruction, not elsewhere classified documented in this encounter Care Teams Runner Out Relationship Specialty Start Date End Date Belkys Bundy DO [address] [place] [address] PCP - General Family Medicine 03/21/19 documented as of this encounter
--- OUTSIDE RECORDS SUMMARY | 2024-04-26 13:25 | XMS_ITS | Encounter Summary ---
[place] [address] Care Team Providers Care Fishing Boat Mate Name Role Phone Belkys Bundy Primary Care Provider +1- [phone] Encounter Details Date Type Department Care Team (Late st Contact Info) Description 07/16/2020 2:00 PM EDT TH Visit (TeleHealth) [place] [address] Juanis Osullivan, RT COPD, very severe Social [...] every 4-6 hours as needed. Juanis Osullivan, PAPER CUTTING MACHINE OPERATOR,PORTFOLIO ANALYST documented in this encounter Plan of Treatment Upcoming Encounters Date Type Department Care Team (Late st Contact Info) Description 08/27/2024 4:00 PM EDT Office [place] [address] Kira Thayer MD [facility] [place] [address] documented as of this encounter Visit Diagnoses Diagnosis COPD, very severe Chronic airway obstruction, not elsewhere classified documented in this encounter Care Teams Fishing Boat Mate Relationship Specialty Start Date End Date Belkys Bundy DO [address] [place] [address] PCP - General Family Medicine 03/21/19 documented as of this encounter
--- OUTSIDE RECORDS SUMMARY | 2024-04-26 13:25 | XMS_ITS | Encounter Summary ---
Author Organization [facility] [place] [address] Care Team Providers Care Senior Accountant Cpa Name Role Phone Belkys Bundy DO Primary Care Provider +1- [phone] Encounter Details Date Type Department Care Team (Late st Contact Info) Description 06/30/2020 [place] [address] Millicent Valles Social History Tobacco [...] EDT Office [place] [address] Kira Thayer MD [facility] [place] [address] documented as of this encounter Visit Diagnoses Not on filedocumented in this encounter Care Teams Senior Accountant Cpa Relationship Specialty Start Date End Date Belkys Bundy DO [address] [place] [address] PCP - General Family Medicine 03/21/19 documented as of this encounter
--- OUTSIDE RECORDS SUMMARY | 2024-04-26 13:25 | XMS_ITS | Encounter Summary ---
Author Organization [facility] Address [facility] [place] [address] Care Team Providers Care Lean Engineer Name Role Phone Belkys Bundy Primary Care Provider +1- [phone] Encounter Details Date Type Department Care Team (Late st Contact Info) Description 07/16/2020 Tele[place] [address] Kira Thayer MD [facility] [place] [address] Social History Tobacco Use Types Packs/Day Years [...] 4:00 PM EDT Office [place] [address] Kira Thayer MD [facility] [place] [address] documented as of this encounter Visit Diagnoses Not on filedocumented in this encounter Care Teams Lean Engineer Relationship Specialty Start Date End Date Belkys Bundy DO [address] [place] [address] PCP - General Family Medicine 03/21/19 documented as of this encounter
--- OUTSIDE RECORDS SUMMARY | 2024-04-26 13:25 | XMS_ITS | Encounter Summary ---
Author Organization [facility] [place] [address] Care Team Providers Care Control Tower Operator Name Role Phone Ehsan Mathis Primary Care Provider [phone] Encounter Details Date Type Department Care Team (Late st Contact Info) Description 09/20/2018 Telephone [place] [address] Yoana Perea Social History Tobacco Use Types [...] - 09/20/2018 1:33 PM EDT Jessie Daniel [id number] Diagnosis: intestinal metaplasia 1. Have you ever [...] [] YES [] NO If Yes send inMCE-5 Development message to [facility] ENDO DEVICE CHECK 4. Are you [...] NO 11. You must have a responsible libertarian stay at the facility during your procedure [...] PM EDT Office [place] [address] Kira Thayer MD [facility] [place] [address] documented as of this encounter Visit Diagnoses Not on filedocumented in this encounter Care Teams Control Tower Operator Relationship Specialty Start Date End Date Ehsan Mathis PA PCP - General General Internal Medicine 08/30/1809/09 documented as of this encounter
--- OUTSIDE RECORDS SUMMARY | 2024-04-26 13:25 | XMS_ITS | Encounter Summary ---
[place] [address] Care Team Providers Care Warehouse Checker Name Role Phone Belkys Bundy DO Primary Care Provider +1- [phone] Reason for Referral * Rehabilitation (Routine) - Closed Specialty Diagnoses / Procedures Referred By Rossy levine Referred To Contact Pulmonology Diagnoses Chronic obstructive pulmonary disease, unspecified COPD type Supplemental oxygen dependent Kira Thayer MD [facility] [place] [address] [facility] [place] [address] Referral ID Status Reason Start Date Expiration Date V isits Requested Visits Authorized [id number] Closed Evaluate and Treat 04/25/2020 04/25/2021 36 36 Reason for Visit * Consultation (Routine) - Closed Specialty Diagnoses / Procedures Referred By Rsosy levine Referred To Contact Pulmonology Diagnoses Chronic obstructive pulmonary disease, unspecified Dependence on supplemental oxygen Belkys Bundy DO [address] [place] [address] [facility] Pulmonology [address] [place] [phone] Referral ID Status Reason Start Date Expiration Date V isits Requested Visits Authorized [id number] Closed Consult, Test & Treat [facility] PCP Updated and/or Approved 01/18/2020 01/17/2021 6 6 Encounter Details Date Type Department Care Team (Latest Contact Info) Description 04/25/2020 10:00 AM EST TH Visit (TeleHealth) Pulmonology at [facility] [place] [address] Kira Thayer MD [facility] [place] [address] Chronic obstructive pulmonary disease, unspecified COPD type; [...] continue. The patient is at home [place]. Referring Provider: Belkys Bundy DO [address] [place] [address] Reason for Evaluation: Belkys Bundy DO [address] [place] [address] referred Ms. Jessie Sanchez to the pulmonary [...] and was previously followed by apulmonologist in [place]. 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 Mrs. 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 [...] 2.49) performed by Sammie Johnson MD at [facility] ??? PRO UPPER GI ENDOSCOPY, DIAGNOSTIC N/A 09/25/2018 EGD, UPPER GI ENDOSCOPY performed by Sammie Johnson MD at [facility] Family History: Family History Problem [...] Take 10 mg by mouth daily. ??? earwnqzbnse-jraorulwu-dstwwkoa (Trelegy Ellipta) 100-62.5-25 mcg Disk with Device [...] I will request records from her previous conductor symphonic orchestra to review before ordering chest CT imaging of this nodule. We discussed the COVID19 vaccine, and I encouraged he to pursue vaccination at her earliest opportunity. She does not currently qualify for vaccination in the state of [place] (age not >/= 75), but sheis high [...] day of visit. Kira Thayer MD [facility]UL[facility] AT [facility] [address] Dept: [phone] Loc: [phone] documented in this encounter Plan of Treatment Upcoming Encounters Date Type Department Care Team (Late st Contact Info) Description 08/27/2024 4:00 PM EDT [place] [address] Kira Thayer MD [facility] [place] [address] Scheduled Referrals Name Type Priority Associated Diagnoses [...] / FVC LLN 69 % COMPAS PFT [id number] Actual Pre-BD 0.21 L/s COMPAS PFT [id number] Pre-BD % of Predicted 7 % COMPAS PFT MZF15-90 Predicted 2.82 L/s COMPAS PFT ACQ83-11 Pre-BD Z-Score -4.72 COMPAS PFT DLCO Hb [...] type documented in this encounter Care Teams Warehouse Checker Relationship Specialty Start Date End Date Belkys Bundy DO [address] [place] [address] PCP - General Family Medicine 03/21/19 documented as of this encounter
--- OUTSIDE RECORDS SUMMARY | 2024-04-26 13:25 | XMS_ITS | Encounter Summary ---
Author Organization [facility] [place] [address] Care Team Providers Care Agile Coach Name Role Phone Belkys Bundy DO Primary Care Provider +1- [phone] Encounter Details Date Type Department Care Team (Late st Contact Info) Description 01/22/2020 Telephone [place] [address] Cristin Block Social History Tobacco Use Types [...] 4:00 PM EDT Office [place] [address] Kira Thayer MD [facility] PULMONARY MEDICINE [place], [place] [address] documented as of this encounter Visit Diagnoses Not on filedocumented in this encounter Care Teams Agile Coach Relationship Specialty Start Date End Date Belkys Bundy DO [address] [place] [address] PCP - General Family Medicine 03/21/19 documented as of this encounter
--- OUTSIDE RECORDS SUMMARY | 2024-04-26 13:25 | XMS_ITS | Encounter Summary ---
Author Organization [facility] Address [facility] [place] [address] Care Team Providers Care Turkey Roll Maker Name Role Phone Jessie Dover APRN Primary Care Provider [phone] Reason for Visit * - Closed Specialty Diagnoses / Procedures Referred By Rossy levine Referred To Contact Procedures Film Library- Storage Only CT Chest Belkys Bundy DO [address] [place] [address] Referral ID Status Reason Start Date Expiration Date Visits Re quested Visits Authorized [id number] Closed 06/27/2020 06/27/2021 1 1 Encounter Details Date Type Department Care Team (Late st Contact Info) Description 03/28/2018 Ancillary Procedure Radiology Library at [facility] [place] [address] Belkys Bundy DO [address] [place] [address] Social History Tobacco Use Types Packs/Day Years [...] 4:00 PM EDT Office [place] [address] Kira Thayer MD [facility] [place] [address] documented as of this encounter Procedures Procedure Name Priority Date/Time Associated Diagnosis Comments FILM LIBRARY STORAGE ONLY CT CHEST Routine 03/28/2018 12:00 AM EST documented in this encounter Results * Film Library- Storage Only CT Chest (03/28/2018 12:00 AM EST) Narrative [facility] - 06/27/2020 4:44 PM EDT This exam is auto-finalizing. It's purpose is for storage only. Belkys Bundy DO IMG FILM LIBRARY O RDERABLES [place], [place] documented in this encounter Visit Diagnoses Not on filedocumented in this encounter Care Teams Turkey Roll Maker Relationship Specialty Start Date End Date Jessie Dover APRN PCP - General 06/19/13 08/29/18 documented as of this encounter
--- OUTSIDE RECORDS SUMMARY | 2024-04-26 13:25 | XMS_ITS | Encounter Summary ---
Author Organization [facility] Address [facility] [place] [address] Care Team Providers Care Classification Officer Name Role Phone Belkys Bundy Primary Care Provider +1- [phone] Reason for Referral * Physical Therapy (Routine) - Closed Specialty Diagnoses / Procedures Referred By Rossy levine Referred To Contact Physical Therapy Diagnoses COPD, very severe Kervin Steiner Jr., MD [facility] [place] [address] Jennifer Morales, PT [facility] PHYSICAL MEDICINE & [place] [address] Referral ID Status Reason Start Date Expiration Date V isits Requested Visits Authorized [id number] Closed Evaluate and Treat 06/12/2020 06/12/2021 100 100 Encounter Details Date Type Department Care Team (Late st Contact Info) Description 06/11/2020 Orders [place] [address] Kervin Steiner Jr., MD [facility] [place] [address] COPD, very severe Social History Tobacco Use [...] 4:00 PM EDT [place] [address] Kira Thayer MD [facility] [place] [address] Scheduled Referrals Name Type Priority Associated Diagnoses Orde r Schedule Referral to Physical Therapy Outpatient Referral Routine COPD, very severe Ordered: 06/12/2020 documented as of this encounter Visit Diagnoses Diagnosis COPD, very severe Chronic airway obstruction, not elsewhere classified documented in this encounter Care Teams Classification Officer Relationship Specialty Start Date End Date Belkys Bundy DO [address] [place] [address] PCP - General Family Medicine 03/21/19 documented as of this encounter
--- OUTSIDE RECORDS SUMMARY | 2024-04-26 13:25 | XMS_ITS | Encounter Summary ---
Author Organization [facility] Address [facility] [address] Care Team Providers Care Roll Reclaimer Name Role Phone Gladis Jones APRN Primary Care Provider [phone] Reason for Visit * Auth/Cert Specialty Diagnoses / Procedures Referred By Rossy t Referred To Contact Diagnoses intestinal metaplasia proclear Procedures PRO UPPER GI ENDOSCOPY, DIAGNOSTIC EGD, UPPER GI ENDOSCOPY Referral ID Status Reason Start Date Expiration Date Visits Re quested Visits Authorized [id number] 1 1 Encounter Details Date Type Department Care Team (Latest Contact Info) Description 09/25/2018 2:35 PM EDT - 09/25/2018 5:00 PM EDT Hospital En[place] [address] Sammie Johnson MD [facility] [place] [address] Discharge Disposition: Home Social History Tobacco Use [...] better as expected. Tuesday-Tuesday Same Day Endo [phone] Otherwise contact [phone] and ask to speak to the learning support services director pony worker Follow-up care is a troncoso part [...] 4:00 PM EDT [place] [address] Kira Thayer MD [facility] [place] [address] documented as of this encounter Procedures Procedure [...] PM EDT 09/25/2018 4:21 PM EDT Narrative [facility] - 09/25/2018 4:21 PM EDT Specimen requisition ordered. ??Separate Pathology report to follow Sammie Johnson MD PATHOLOGY/CYTOLOGY O EDUARDO Performing Organization Address [facility] [place] [address] * Specimen to Pathology (09/25/2018 4:21 PM EDT) AP Specimen 09/25/2018 4:21 PM EDT 09/25/2018 4:21 PM EDT Narrative [facility] - 09/25/2018 4:21 PM EDT Specimen requisition ordered. ??Separate Pathology report to follow Sammie Johnson MD PATHOLOGY/CYTOLOGY O EDUARDO Performing Organization Address [facility] [place] [address] * Surgical Pathology Report (09/25/2018 4:08 PM EDT) Final Diagnosis [id number] ? Location: 4T; EA08; A The signing [...] Givens MD Verified: ??09/29/2018 ?Pathologist Performed at: ??-[facility] Dept. of Pathology, [place], [place] CLINICAL INFORMATION Specimen Submitted: A - [...] labeled B1. ??sns 09/29/2018 10:31 AM EDT [facility] GI Biopsy 09/25/2018 4:08 PM EDT 09/25/2018 4:08 PM EDT GI Biopsy 09/25/2018 4:08 PM EDT 09/25/2018 4:08 PM EDT Sammie Johnson MD PATHOLOGY/CYTOLOGY O RDERAELIUD [facility] [place] [address] * UPPER GI ENDOSCOPY (09/25/2018 3:53 PM EDT) UPPER GI ENDOSCOPY [facility] Endoscopy Procedure Date: 09/25/2018 3:53 PM ? Patient Name: Jessie Sanchez ? Date of : 1970 ? Age: 48 ? Order #: [id number] ? Instrument Name: [id number] ? Procedure: ? Upper GI endoscopy Indications: [...] RN) documented in this encounter Care Teams Roll Reclaimer Relationship Specialty Start Date End Date Gladis Jones APRN PCP - General Family Medicine 09/25/18 03/20/19 documented as of this encounter
--- OUTSIDE RECORDS SUMMARY | 2024-04-26 13:25 | XMS_ITS | Encounter Summary ---
[place] [address] Care Team Providers Care Conveyor Monitor Name Role Phone Belkys Bundy Primary Care Provider [phone]- [phone] Reason for Visit * Reason Onset Date Comments Request For Record 05/14/2020 pulmonary rec ords and imaging. Encounter Details Date Type Department Care Team (Late st Contact Info) Description 05/14/2020 [place] [phone] Eimly Starr RN Request For Record (pulmonary records [...] records or images from patient's time at [facility], to [facility] per Dr. Thayer. Fax submission confirmation time stamped for 05/14/2020 @ 1041. 1 page. documented in this encounter Plan of Treatment Upcoming Encounters Date Type Department Care Team (Late st Contact Info) Description 08/27/2024 4:00 PM EDT [place] [address] Kira Thayer MD [facility] [place] [address] documented as of this encounter Visit Diagnoses Not on filedocumented in this encounter Care Teams Conveyor Monitor Relationship Specialty Start Date End Date Belkys Bundy DO [address] [place] [address] PCP - General Family Medicine 03/21/19 documented as of this encounter
--- OUTSIDE RECORDS SUMMARY | 2024-04-26 13:25 | XMS_ITS | Encounter Summary ---
[place] [address] Care Team Providers Care Subassembly Supervisor Name Role Phone Belkys Bundy Primary Care Provider +1- [phone] Encounter Details Date Type Department Care Team (Latest Contact Info) Description 07/30/2020 2:00 PM EDT TH Visit (TeleHealth) [place] [address] Juanis Osullivan, RT Chronic obstructive pulmonary disease, [...] of gastroc, tricep, and chest director of early childhood. Comments: Went for a walk when the [...] 4:00 PM EDT Office [place] [address] Kira Thayer MD [facility] [place] [address] documented as of this encounter Visit Diagnoses Diagnosis Chronic obstructive pulmonary disease, unspecified COPD type documented in this encounter Care Teams Subassembly Supervisor Relationship Specialty Start Date End Date Belkys Bundy DO [address] [place] [address] PCP - General Family Medicine 03/21/19 documented as of this encounter
--- OUTSIDE RECORDS SUMMARY | 2024-04-26 13:25 | XMS_ITS | Encounter Summary ---
Author Organization [facility] Address [facility] [place] [address] Care Team Providers Care Perioperative Nurse Name Role Phone Gladis Jones APRN Primary Care Provider [phone] Reason for Visit * Auth/Cert Specialty Diagnoses / Procedures Referred By Rossy t Referred To Contact Diagnoses intestinal metaplasia proclear Procedures PRO UPPER GI ENDOSCOPY, DIAGNOSTIC EGD, UPPER GI ENDOSCOPY Referral ID Status Reason Start Date Expiration Date Visits Re quested Visits Authorized [id number] 1 1 Encounter Details Date Type Department Care Team (Late st Contact Info) Description 09/25/2018 3:45 PM EDT - 09/25/2018 4:15 PM EDT [place] [address] Sammie Johnson MD [facility] [place] [address] EGD, UPPER GI ENDOSCOPY (WRVU 2.09) Social [...] better as expected. Tuesday-Tuesday Same Day Endo [phone] Otherwise contact [phone] and ask to speak to the nursing assoc sugar controller Follow-up care is a troncoso part of [...] 4:00 PM EDT Office [place] [address] Kira Thayer MD [facility] [place] [address] documented as of this encounter Procedures Procedure [...] PM EDT 09/25/2018 4:21 PM EDT Narrative [facility] - 09/25/2018 4:21 PM EDT Specimen requisition ordered. ??Separate Pathology report to follow Sammie Johnson MD PATHOLOGY/CYTOLOGY O EDUARDO Performing Organization Address [facility] Co de Phone Number [facility] [place] [address] * Specimen to Pathology (09/25/2018 4:21 PM EDT) AP Specimen 09/25/2018 4:21 PM EDT 09/25/2018 4:21 PM EDT Narrative [facility] - 09/25/2018 4:21 PM EDT Specimen requisition ordered. ??Separate Pathology report to follow Sammie Johnson MD PATHOLOGY/CYTOLOGY O EDUARDO Performing Organization Address [facility] de Phone Number [place] [phone] * Surgical Pathology Report (09/25/2018 4:08 PM EDT) Final Diagnosis [id number] ? Location: 4T; EA08; A The signing [...] TRAVIS, Mabel Verified: ??09/29/2018 ?Pathologist Performed at: ??-[facility] Dept. of Pathology, [place], [place] CLINICAL INFORMATION Specimen Submitted: A - [...] labeled B1. ??sns 09/29/2018 10:31 AM EDT [facility] GI Biopsy 09/25/2018 4:08 PM EDT 09/25/2018 4:08 PM EDT GI Biopsy 09/25/2018 4:08 PM EDT 09/25/2018 4:08 PM EDT Sammie Johnson MD PATHOLOGY/CYTOLOGY O EDUARDO [facility] [place] [address] * UPPER GI ENDOSCOPY (09/25/2018 3:53 PM EDT) UPPER GI ENDOSCOPY [facility] Endoscopy Procedure Date: 09/25/2018 3:53 PM ? Patient Name: Jessie Sanchez ? Date of : 1970 ? Age: 48 ? Order #: [id number] ? Instrument Name: [id number] ? Procedure: ? Upper GI endoscopy Indications: [...] RN) documented in this encounter Care Teams Perioperative Nurse Relationship Specialty Start Date End Date Gladis Jones APRN PCP - General Family Medicine 09/25/18 03/20/19 documented as of this encounter
--- OUTSIDE RECORDS SUMMARY | 2024-04-26 13:25 | XMS_ITS | Encounter Summary ---
Author Organization [facility] [place] [address] Care Team Providers Care Ships Or Barges Loader Name Role Phone Niharika Belkys Virginie MYRICK Primary Care Provider [phone]- [phone] Encounter Details Date Type Department Care Team (Late st Contact Info) Description 07/18/2020 [place] [address] Juanis Osullivan, RT Social History Tobacco Use [...] up with immediate medical attention. Reviewed oncall counter stacker contact information at [facility] Will forward to Dr. Thayer to review. documented in this encounter Plan of Treatment Upcoming Encounters Date Type Department Care Team (Late st Contact Info) Description 08/27/2024 4:00 PM EDT Office [place] [address] Kira Thayer MD [facility] [place] [address] documented as of this encounter Visit Diagnoses Not on filedocumented in this encounter Care Teams Ships Or Barges Loader Relationship Specialty Start Date End Date Belkys Bundy DO [address] [place] [address] PCP - General Family Medicine 03/21/19 documented as of this encounter
--- OUTSIDE RECORDS SUMMARY | 2024-04-26 13:25 | XMS_ITS | Encounter Summary ---
[place] [address] Care Team Providers Care Electronic Gaming Device Supervisor Name Role Phone Belkys Bundy Primary Care Provider [phone]- [phone] Encounter Details Date Type Department Care Team (Late st Contact Info) Description 07/25/2020 2:00 PM EDT TH Visit (TeleHealth) [place] [address] Juanis Osullivan, RT COPD, very severe Social [...] days ago. Yesterday she walked around the [employer]. 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, ACCESSIONER,RECEPTION INTERVIEWER documented in this encounter Miscellaneous Notes * [...] hamstring. ?? Comments: Jessie Sanchez walked around [employer] a few times before shopping for exercise. [...] 4:00 PM EDT Office [place] [address] Kira Thayer MD [facility] [place] [address] documented as of this encounter Visit Diagnoses Diagnosis COPD, very severe Chronic airway obstruction, not elsewhere classified documented in this encounter Care Teams Electronic Gaming Device Supervisor Relationship Specialty Start Date End Date Belkys Bundy DO [address] [place] [address] PCP - General Family Medicine 03/21/19 documented as of this encounter
--- OUTSIDE RECORDS SUMMARY | 2024-04-26 13:25 | XMS_ITS | Encounter Summary ---
Author Organization [facility] [place] [address] Care Team Providers Care Liner Machine Operator Helper Name Role Phone Belkys Bundy Primary Care Provider [phone]- [phone] Encounter Details Date Type Department Care Team (Late st Contact Info) Description 06/04/2020 Telephone Pulmonology at [facility] [place] [address] Juanis Osullivan RT Social History Tobacco Use [...] pulmonary rehab today. Reviewed email contact information: [email or web address]. -she will also go into [facility] online and activate her my account for future pulm rehab sessions. She understood that DVT was ruled out by ultrasound. documented in this encounter Plan of Treatment Upcoming Encounters Date Type Department Care Team (Late st Contact Info) Description 08/27/2024 4:00 PM EDT Office [place] [address] Kira Thayer MD [facility] [address] [place] [address] documented as of this encounter Visit Diagnoses Not on filedocumented in this encounter Care Teams Liner Machine Operator Helper Relationship Specialty Start Date End Date Belkys Bundy DO [address] [place] [address] PCP - General Family Medicine 03/21/19 documented as of this encounter
--- OUTSIDE RECORDS SUMMARY | 2024-04-26 13:25 | XMS_ITS | Encounter Summary ---
Author Organization [facility] [place] [address] Care Team Providers Care Transverse Abdominal Muscle Nurse Name Role Phone Ehsan Mathis Primary Care Provider [phone] Encounter Details Date Type Department Care Team (Late st Contact Info) Description 2018 Ancillary Procedure Radiology Library at [facility] [place] [address] Sammie Johnson MD [facility] [place] [address] Social History Tobacco Use Types Packs/Day Years [...] PM EDT Office Visit Pulmonology at [facility] [place] [address] Kira Thayer MD [facility] [place] [address] documented as of this encounter Procedures Procedure Name Priority Date/Time Associated Diagnosis Comments FILM LIBRARY STORAGE ONLY NUCLEAR MEDICINE Routine 2018 12:00 AM EDT documented in this encounter Results * Film Library- Storage Only nuclear medicine (2018 12:00 AM EDT) Narrative [facility] - 10/20/2018 11:53 AM EDT This exam is auto-finalizing. It's purpose is for storage only. Sammie Johnson MD IMG FILM LIBRARY ORD ERABLES [place], [place] documented in this encounter Visit Diagnoses Not on filedocumented in this encounter Care Teams Transverse Abdominal Muscle Nurse Relationship Specialty Start Date End Date Ehsan Mathis PA PCP - General General Internal Medicine 08/30/1809/09 documented as of this encounter
--- OUTSIDE RECORDS SUMMARY | 2024-04-26 13:25 | XMS_ITS | Encounter Summary ---
Author Organization [facility] [place] [address] Care Team Providers Care Electrical And Radio Aircraft Mechanic Name Role Phone Belkys Bundy DO Primary Care Provider +1- [phone] Encounter Details Date Type Department Care Team (Late st Contact Info) Description 05/17/2019 [place] [address] Cristin Block Social History Tobacco Use Types [...] 4:00 PM EDT [place] [address] Kira Thayer MD [facility] [place] [address] documented as of this encounter Visit Diagnoses Not on filedocumented in this encounter Care Teams Electrical And Radio Aircraft Mechanic Relationship Specialty Start Date End Date Belkys Bundy DO [address] [place] [address] PCP - General Family Medicine 03/21/19 documented as of this encounter
--- OUTSIDE RECORDS SUMMARY | 2024-04-26 13:25 | XMS_ITS | Encounter Summary ---
Author Organization [facility] Address [facility] [place] [address] Care Team Providers Care County Superintendent Of Schools Name Role Phone Belkys Bundy Virginie MYRICK Primary Care Provider +1- [phone] Reason for Visit * Physical Therapy (Routine) - Closed Specialty Diagnoses / Procedures Referred By Rossy levine Referred To Contact Physical Therapy Diagnoses COPD, very severe Kervin Steiner Jr., MD [facility] [place] [address] Adolph Morales, PT [facility] PHYSICAL MEDICINE & [place] [address] Referral ID Status Reason Start Date Expiration Date V isits Requested Visits Authorized [id number] Closed Evaluate and Treat 06/12/2020 06/12/2021 100 100 Encounter Details Date Type Department Care Team (Late st Contact Info) Description 07/08/2020 9:00 AM EDT TH Visit (TeleHealth) [place] [address] Adolph Morales, PT [facility] PHYSICAL MEDICINE & [place] [address] Chronic obstructive pulmonary disease, unspecified COPD type [...] Telemedicine Encounter Patient: Jessie Sanchez MR Number: [id number] Date of : 1970 Home [address]: [address] [place] [address] Phone Number (Home, Mobile): Mobile Not on file. Date of Visit: 07/08/2020 Patient Location at time of visit: [address] [place] [address], [place], [place]; Jessie Sanchez is aware that I will need to confirm this location each time we meet. Others in the same physical location as the patient: none This therapist is legally able to treat the patient in [place] and [place] via Telehealth due to license waiver agreement during Covid 19 crisis. NOTE: Jessie Sanchez has verbally consented to participate in a Telemedicine visit with ADOLPH MORALES PT as her Rehabilitation Medicine provider while the [facility] Covid 19 crisis is taking place. This Telemedicine visit was comprised of both Audio and Visual through a secure [facility] c[facility] throughout the duration of this visit. Patient understands this is a therapy service and will be billed to her insurance. Patient consents that therapy or educational materials could be sent through [facility] or e-mail addressat: [email or web address]. Jessie Sanchez did not have any questions for me at this time and was informed the best way to reach me is through [facility]. Activities of Daily Living Assessment - [...] 4:00 PM EDT Office [place] [address] Kira Thayer MD [facility] [place] [address] Scheduled Referrals Name Type Priority Associated Diagnoses Orde r Schedule Referral to Physical Therapy Outpatient Referral Routine COPD, very severe Ordered: 06/12/2020 documented as of this encounter Visit Diagnoses Diagnosis Chronic obstructive pulmonary disease, unspecified COPD type documented in this encounter Care Teams County Superintendent Of Schools Relationship Specialty Start Date End Date Belkys Bundy DO [address] [place] [address] PCP - General Family Medicine 03/21/19 documented as of this encounter
--- OUTSIDE RECORDS SUMMARY | 2024-04-26 13:25 | XMS_ITS | Encounter Summary ---
Author Organization [facility] [place] [address] Care Team Providers Care Steam Fitter Name Role Phone Belkys Bundy Primary Care Provider +1- [phone] Encounter Details Date Type Department Care Team (Latest Contact Info) Description 06/25/2020 9:30 AM EDT TH Visit (TeleHealth) [place] [address] Kira Thayer MD [facility] [place] [address] COPD, very severe; Supplemental oxygen dependent; Tobacco [...] from the original note were not included. [facility] Care Section of Pulmonary and Critical Care Medicine Outpatient Consultation Date of Encounter: 06/25/2020 TELEHEALTH VISIT Patient identity was confirmed by name and date of at beginning of this telehealth visit. Patient was informed that this telehealth visit is a billable encounter and stated agreement to continue. The patient is at home in [place]. Reason for Evaluation: Ms. Jessie Sanchez returns [...] getting some walking in, currently goes to [facility] and can do a big lab around [...] Refill ??? fluticasone propionate (FLONASE) 50 mcg/actuation [place], Suspension ??? montelukast (Singulair) 10 mg Tablet [...] STOP ??? fluticasone propionate (FLONASE) 50 mcg/actuation [place], Suspension by Nasal route. ??? atorvastatin (Lipitor) [...] Use with spacer 2 Inhaler 5 ??? txtgisywcpq-yatbpwhbd-hwlwvtnm (Trelegy Ellipta) 200-62.5-25 mcg Disk with Device [...] she may have had this done at [facility] recently. She is engaged with pulmonary rehab. She is already using supplemental home O2. She is interested in a referral to a lung transplant center, and I will place a referral to [facility] for this. I think this may be [...] request EKG records (she thinks done at [facility] within past year); if hasn't been done may needupdated EKG this spring - plan to start trial of chronic azithromycin after obtaining EKG - will work on referral to lung transplant center ([facility]) - she is working on tobacco cessation - weight loss encouraged - continue pulm rehab - yanet/DLCO with next visit Follow-up in 3 months with in-office visit Thank you for involving me in Mrs. Sanhcez's care. Please feel free to contact me with any further questions or concerns. I personally spent 28 minutes of this telephone/telehealth encounter with the patient discussing their pulmonary disease and treatment recommendations as outlined in my assessment and plan above. This visit involved a total of 31 minutes of clinical time on day of visit. Kira Thayer MD [facility] PULMONOLOGY AT [facility] [address] Dept: [phone] Loc: [phone] documented in this encounter Plan of Treatment Upcoming Encounters Date Type Department Care Team (Late st Contact Info) Description 08/27/2024 4:00 PM EDT Office [place] [address] Kira Thayer MD [facility] [place] [address] documented as of this encounter Results * [...] / FVC LLN 69 % COMPAS PFT FGT47-28 Actual Pre-BD 0.30 L/s COMPAS PFT MTC18-26 Pre-BD % of Predicted 11 % COMPAS PFT BRP23-31 Predicted 2.78 L/s COMPAS PFT JTC55-01 Pre-BD Z-Score -4.34 COMPAS PFT DLCO Hb [...] classified documented in this encounter Care Teams Steam Fitter Relationship Specialty Start Date End Date Belkys Bundy DO [address] [place] [address] PCP - General Family Medicine 03/21/19 documented as of this encounter
--- OUTSIDE RECORDS SUMMARY | 2024-04-26 13:25 | XMS_ITS | Encounter Summary ---
[place] [address] Care Team Providers Care Dental Laboratory Manager Name Role Phone Belkys Bundy Primary Care Provider +1- [phone] Encounter Details Date Type Department Care Team (Latest Contact Info) Description 05/26/2020 11:54 AM EST - 05/26/2020 11:59 PM EST Hospital [place] [address] Chronic obstructive pulmonary disease, unspecified COPD type [...] End Date inhalational spacing device (Ricci Aerosol Gove Enhancer) Spacer .MEDSUPPLY 02/01/2020 linaCLOtide (Linzess) 72 mcg Capsule Take 72 mcg by mouth as needed. Take 30 minutes before meal 05/09/2020 fluticasone propionate (FLONASE) 50 mcg/actuation [place], Suspension 02/01/2020 atorvastatin (Lipitor) 20 mg Tablet [...] 04/15/2020 06/25/2020 fluticasone propionate (FLONASE) 50 mcg/actuation [place], Suspension by Nasal route. 02/01/2020 09/30/2020 albuteroL 90 mcg/actuation HFA Aerosol InhalerIndications:Director Of Reservations tomer obstructive pulmonary disease, unspecified COPD type Inhale 2 puffs into the lungs every 4 hours as needed for Wheezing or Shortness of Breath. Use with spacer 2 Inhaler 5 05/26/2020 12/23/2020 bttcwgfjyjt-sovwzofwm-k ilanter (Trelegy Ellipta) 200-62.5-25 mcg Disk with [...] 4:00 PM EDT [place] [address] Kira Thayer MD [facility] [place] [address] documented as of this encounter Procedures Procedure [...] / FVC LLN 69 % COMPAS PFT AJO80-49 Actual Pre-BD 0.21 L/s COMPAS PFT JDC62-59 Pre-BD % of Predicted 7 % COMPAS PFT KFX61-71 Predicted 2.82 L/s COMPAS PFT OCA38-34 Pre-BD Z-Score -4.72 COMPAS PFT DLCO Hb [...] type documented in this encounter Care Teams Dental Laboratory Manager Relationship Specialty Start Date End Date Belkys Bundy DO [address] [place] [address] PCP - General Family Medicine 03/21/19 documented as of this encounter
--- OUTSIDE RECORDS SUMMARY | 2024-04-26 13:26 | XMS_ITS | Encounter Summary ---
Author Organization [facility] [place] [address] Care Team Providers Care Hand Or Machine Paster Name Role Phone Genet Sauer MD Primary Care Provider Encounter Details Date Type Department Care Team (Late st Contact Info) Description 02/03/2012 Orders [place] [address] Joao Interiano MD Social History Tobacco Use [...] 4:00 PM EDT [place] [address] Kira Thayer MD [facility] PULMONARY MEDICINE [place] [id number] Pending Results Name Type Priority Associated Diagnoses Date /Time Film Library- Storage only DX Abdomen Imaging Routine 02/03/2012 4:29 PM EDT documented as of this encounter Visit Diagnoses Not on filedocumented in this encounter Care Teams Hand Or Machine Paster Relationship Specialty Start Date End Date Genet Sauer MD [facility] [address] [place] [address] PCP - General 09/11/12 06/18/13 documented as of this encounter
--- OUTSIDE RECORDS SUMMARY | 2024-04-26 13:26 | XMS_ITS | Encounter Summary ---
[place] [address] Care Team Providers Care Linux Programmer Name Role Phone Jazzmine Jessie Sapp APRN Primary Care Provider [phone] Encounter Details Date Type Department Care Team (Latest Contact Info) Description 06/19/2013 1:30 PM EDT - 06/19/2013 11:59 PM EDT Hospital En[place] [address] Acute exacerbation of chronic obstructive airways disease [...] Office [place] [address] Kira Thayer MD [facility] [place] [address] documented as of this encounter Procedures Procedure [...] exacerbation documented in this encounter Care Teams Linux Programmer Relationship Specialty Start Date End Date Jessie Dover APRN PCP - General 06/19/13 08/29/18 documented as of this encounter
--- OUTSIDE RECORDS SUMMARY | 2024-04-26 13:26 | XMS_ITS | Encounter Summary ---
Author Organization [facility] [place] [address] Care Team Providers Care Systems Integration Engineer Name Role Phone Jessie Dover RYLAND Primary Care Provider [phone] Encounter Details Date Type Department Care Team (Late st Contact Info) Description 07/18/2014 [place] [address] Saad Chang Jr., MD [facility] [place] [address] Social History Tobacco Use Types Packs/Day Years [...] 4:00 PM EDT [place] [address] Kira Thayer MD [facility] [place] [address] documented as of this encounter Procedures Procedure [...] on filedocumented in this encounter Care Teams Systems Integration Engineer Relationship Specialty Start Date End Date Jessie Dover APRN PCP - General 06/19/13 08/29/18 documented as of this encounter
--- OUTSIDE RECORDS SUMMARY | 2024-04-26 13:26 | XMS_ITS | Encounter Summary ---
Author Organization [facility] [place] [address] Care Team Providers Care Rn Community Health Name Role Phone Genet Davila MD Primary Care Provider [phone] Encounter Details Date Type Department Care Team (Latest Contact Info) Description 02/18/2011 2:59 PM EST - 02/18/2011 11:59 PM EST Hospital [place] [address] CLINIC, Genet Espino MD [address] [place] [address] [address] [place] [id number] Discharge Disposition: Home Social History Tobacco Use [...] Sanchez AGE: 40 y.o. : 1970 (home) [phone] (work) Female PCP TALENT ACQUISITION ADMINISTRATOR Genet DAVILA MD DATE OF CALL: 02/16/11 [...] HR. BEFORE SCHEDULED SCAN AND HAVE A CAR REPAIRER HELPER AVAILABLE. PT STATED TO TECHNICAL ADJUSTER THAT THE SEDATION WAS EFFECTIVE FOR SCAN: Y N documented in this encounter Miscellaneous Notes * Miscellaneous - Provider, Scanning - 03/02/2011 9:12 AM EST documented in this encounter Plan of Treatment Upcoming Encounters Date Type Department Care Team (Late st Contact Info) Description 08/27/2024 4:00 PM EDT Office [place] [phone] Kira Thayer MD [facility] [place] [address] documented as of this encounter Visit Diagnoses [...] mg documented in this encounter Care Teams Rn Community Health Relationship Specialty Start Date End Date Genet Davila MD [facility]OSPITAL[facility] [address] [place] [address] [place] [address] PCP - General 03/03/10 08/26/11 documented as of this encounter
--- OUTSIDE RECORDS SUMMARY | 2024-04-26 13:26 | XMS_ITS | Encounter Summary ---
Author Organization [facility] [place] [address] Care Team Providers Care Completion Manager Name Role Phone Genet Sauer MD Primary Care Provider [phone] Encounter Details Date Type Department Care Team (Late st Contact Info) Description 11/11/2010 Orders [place] [phone] Joao Interiano MD Social History Tobacco Use [...] 4:00 PM EDT Office [place] [address] Kira Thayer MD [facility] [place] [address] Pending Results Name Type Priority Associated Diagnoses Date /Time Film Library- Storage only DX Chest Imaging Routine 11/11/2010 4:36 PM EDT documented as of this encounter Visit Diagnoses Not on filedocumented in this encounter Care Teams Completion Manager Relationship Specialty Start Date End Date Genet Sauer MD HOSPITALIST SERVICES [address] [place] [address] [address] [place] [id number] PCP - General 09/11/12 06/18/13 documented as of this encounter
--- OUTSIDE RECORDS SUMMARY | 2024-04-26 13:26 | XMS_ITS | Encounter Summary ---
Author Organization [facility] Address [address] [place] [address] Care Team Providers Care Hat Liner Name Role Phone Genet Sauer MD Primary Care Provider [phone] Encounter Details Date Type Department Care Team (Late st Contact Info) Description 04/30/[address] [facility] Pathology & Laboratory Medicine - [address] [address] Outr Resulting Lab, Provider Social History Tobacco [...] MICROBIOLOGY - GENER AL ORDERABLES Final Result [facility] [address] [place] [address] * COVID-19 TESTING (04/30/2021 9:00 EST) COVID-19 rt-PCR Result Negative Negative 05/01/2021 17:04 EST [facility] Comment: This [...] performed using the rubi SARS-CoV-2 assay ([employer] on the Rubi 6800 System Performing Lab Rubi [address] [facility] Lab 05/01/2021 17:04 EST [facility] Swab 04/30/2021 9:00 EST 04/30/2021 22:14 EST us Provider Outr Resulting Lab MICROBIOLOGY - GENER AL ORDERABLES Final Result [facility] [address] [place] [address] documented in this encounter Visit Diagnoses Not on filedocumented in this encounter Care Teams Hat Liner Relationship Specialty Start Date End Date Genet Sauer MD [address] [place] [address] PCP - General 09/19/12 documented as of this encounter
--- OUTSIDE RECORDS SUMMARY | 2024-04-26 13:26 | XMS_ITS | Encounter Summary ---
Author Organization [facility] Address [address] [place] [address] Care Team Providers Care Employee Relations Assistant Name Role Phone Genet Sauer MD Primary Care Provider [phone] Encounter Details Date Type Department Care Team (Late st Contact Info) Description 06/30/2022 Lab Requisition [facility] Pathology & Laboratory Medicine - [address] [address] Karuna Santana, DO [address] [place], [place] [id number] Encounter for other general examination Social History [...] management options, if applicable. 07/06/2022 16:22 EDT [facility] Final Diagnosis A. SOFT TISSUE, ? LIPOMA? , SITE NOT FURTHER SPECIFIED, EXCISION: - Mature adipose tissue, consistent with lipoma. - Focal fibrous and fibrovascular tissue with no specific pathologic features. 07/06/2022 16:22 [facility] Attestation There was significant resident/fellow involvement in the diagnostic evaluation of this case. By the signature below, the attending physician certifies that they have personally conducted a gross and/or microscopic examination of the described specimens and rendered or confirmed the above diagnosis. 07/06/2022 16:22 [facility] at 1622 Clinical History Lipoma 07/06/2022 16:22 [facility] Gross Description A. Received [...] fibrous connective tissue without hemorrhage or necrosis. Manager Community sections are submitted in A1 and A2. HEATHER DELVALLE([facility]) 06/30/2022 8:40 07/06/2022 16:22 [facility] Resident/Alec w: Enrrique Muñiz MD 07/06/2022 16:22 T [facility] Performing Lab [facility] 07/06/2022 16:22 T [facility] Scanned Images 07/06/2022 16:22 [facility] Tissue SOFT TISSUE / Unknown 06/29/2022 10:05 EDT 06/30/2022 8:24 EDT us Karuna Santana DO PATHOLOGY ORDERABLES Final Re sult [facility] [address] [place] [address] documented in this encounter Visit Diagnoses Diagnosis Encounter for other general examination documented in this encounter Care Teams Employee Relations Assistant Relationship Specialty Start Date End Date Genet Sauer MD [address] [place] [address] PCP - General 09/19/12 documented as of this encounter
--- OUTSIDE RECORDS SUMMARY | 2024-04-26 13:26 | XMS_ITS | Clinical Summary ---
Author Organization [facility] Address [address] [place] [address] Care Team Providers Care Display Specialist Name Role Phone Genet Sauer MD Primary Care Provider [phone] Encounters Date Type Department Care Team Description 04/23/2024 Lab Requisition [facility] Pathology & Laboratory [address] [address] Outr Resulting Lab, Provider 03/29/2024 Lab Requisition [facility] Pathology & Laboratory [facility] [address] [place] [address] Outr Resulting Lab, Provider from Last 3 [...] Comments FECAL BACTERIAL PATHOGENS BY PCR Routine 04/23/2024 5:30 EST TACROLIMUS ([id number]) Routine 03/29/2024 7: 15 EST from Last 3 Months Results * FECAL BACTERIAL PATHOGENS BY PCR (04/23/2024 5:30 EST) Salmonella PCR Negative Negative 04/24/2024 15:25 EST [facility] Shigella/Enteroin vasive E. coli Negative Negative 04/24/2024 15:25 EST [facility] HN LAB CAMPYLOBACTER PCR Negative Negative 04/24/2024 15:25 [facility] Shiga Toxin PCR Negative Negative 15:25 [facility] Feces SPECIMEN FROM RECTUM / Unknown 04/23/2024 5:30 EST 04/23/2024 21:26 EST us Provider Outr Resulting Lab MICROBIOLOGY - GENER AL ORDERABLES Final Result Performing Organization Address [facility] [place] [facility] Co de Phone Number [facility] [address] [place] [address] * TACROLIMUS ([id number]) (03/29/2024 7:15 EST) Pathologist [facility] Tacrolimus 8.2 See Note ng/mL 03/30/2024 13:03 [facility] Comment: NOTE: Tacrolimus Therapeutic Range: 3-12 ng/mL (The goal level is based on clinical context). Assayed utilizing [employer] Chemiluminescent technology. ??Values obtained using different assay methods cannot be used interchangeably. Blood VENOUS BLOOD / Unknown 03/29/2024 7:15 EST 03/29/2024 17:17 EST us Provider Outr Resulting Lab CHEMISTRY & BLOOD GA S ORDERABLES Final Result Performing Organization Address City/[facility]/ZIP Co de Phone Number [facility] [address] [place], [place] [id number] from Last 3 Months Insurance MEDICARE [employer] [place] Care Teams Display Specialist Relationship Specialty Start Date End Date Genet Sauer MD [address] [place] [address] PCP - General 09/19/12
--- OUTSIDE RECORDS SUMMARY | 2024-04-26 13:26 | XMS_ITS | Encounter Summary ---
Author Organization [facility] [place] [address] Care Team Providers Care Nip Wrapper Name Role Phone Genet Sauer MD Primary Care Provider [phone] Encounter Details Date Type Department Care Team (Late st Contact Info) Description 01/02/2013 Orders Only [place] [address] Sammie Johnson MD [facility] [place] [address] Social History Tobacco Use Types Packs/Day Years [...] PM EDT Office Visit [place] [address] Kira Thayer MD [facility] [place] [address] documented as of this encounter Procedures Procedure [...] MD IMG FILM LIBRARY ORD ERABLES [facility] [address] [place] [address] documented in this encounter Visit Diagnoses Not on filedocumented in this encounter Care Teams Nip Wrapper Relationship Specialty Start Date End Date Genet Sauer MD [facility]OSPITAL[facility] [address] [place] [address] [place] [address] PCP - General 09/11/12 06/18/13 documented as of this encounter
--- OUTSIDE RECORDS SUMMARY | 2024-04-26 13:26 | XMS_ITS | Encounter Summary ---
Author Organization [facility] [place] [address] Care Team Providers Care Sales Agent Pest Control Service Name Role Phone Genet Sauer MD Primary Care Provider [phone] Encounter Details Date Type Department Care Team (Late st Contact Info) Description 10/07/2008 Orders [place] [phone] Joao Interiano MD Social History Tobacco Use [...] 4:00 PM EDT [place] [address] Kira Thayer MD [facility] [place] [address] Pending Results Name Type Priority Associated Diagnoses Date /Time Film Library- Storage only DX Chest Imaging Routine 10/07/2008 4:58 PM EDT documented as of this encounter Visit Diagnoses Not on filedocumented in this encounter Care Teams Sales Agent Pest Control Service Relationship Specialty Start Date End Date Genet Sauer MD HOSPITALIST SERVICES [address] [place] [address] [place] [address] PCP - General 09/11/12 06/18/13 documented as of this encounter
--- OUTSIDE RECORDS SUMMARY | 2024-04-26 13:26 | XMS_ITS | Encounter Summary ---
Author Organization [facility] Address [address] [place] [address] Care Team Providers Care Sql Report Developer Name Role Phone Genet Sauer MD Primary Care Provider [phone] Encounter Details Date Type Department Care Team (Late st Contact Info) Description 04/23/2024 Lab Requisition [facility] Pathology & Laboratory Medicine - [address] [address] Outr Resulting Lab, Provider Social History Tobacco [...] PATHOGENS BY PCR Routine 04/23/2024 5:30 EST documented in this encounter Results * FECAL BACTERIAL PATHOGENS BY PCR (04/23/2024 5:30 EST) Salmonella PCR Negative Negative 04/24/2024 15:25 EST [facility] Shigella/Enteroin vasive E. coli Negative Negative 04/24/2024 15:25 EST [facility] HN LAB CAMPYLOBACTER PCR Negative Negative 04/24/2024 15:25 EST [facility] Shiga Toxin PCR Negative Negative 15:25 EST [facility] Feces SPECIMEN FROM RECTUM / Unknown 04/23/2024 5:30 EST 04/23/2024 21:26 EST us Provider Outr Resulting Lab MICROBIOLOGY - GENER AL ORDERABLES Final Result [facility] [address] [place] [address] documented in this encounter Visit Diagnoses Not on filedocumented in this encounter Care Teams Sql Report Developer Relationship Specialty Start Date End Date Genet Sauer MD [address] [place], [place] [address] PCP - General 09/19/12 documented as of this encounter
--- OUTSIDE RECORDS SUMMARY | 2024-04-26 13:26 | XMS_ITS | Encounter Summary ---
[place] [address] Care Team Providers Care Color Maker Dyer Name Role Phone JazzmineBonniegus Sapp APRN Primary Care Provider [phone] Encounter Details Date Type Department Care Team (Latest Contact Info) Description 08/21/2014 7:26 AM EDT - 08/21/2014 11:59 PM EDT Hospital [place] [address] Recurrent nephrolithiasis Social History Tobacco Use Types [...] EDT Office [place] [address] Kira Thayer MD [facility] [place] [address] documented as of this encounter Procedures Procedure [...] kidney documented in this encounter Care Teams Color Maker Dyer Relationship Specialty Start Date End Date Jessie Dover APRN PCP - General 06/19/13 08/29/18 documented as of this encounter
--- OUTSIDE RECORDS SUMMARY | 2024-04-26 13:26 | XMS_ITS | Encounter Summary ---
Author Organization [facility] [place] [address] Care Team Providers Care Low Altitude Air Defense Officer Name Role Phone Jessie Dover RYLAND Primary Care Provider [phone] Encounter Details Date Type Department Care Team (Late st Contact Info) Description 05/07/2014 [place] [address] Saad Chang Jr., MD [facility] [place] [address] Social History Tobacco Use Types Packs/Day Years [...] 4:00 PM EDT Office [place] [address] Kira Thayer MD [facility] [place] [address] documented as of this encounter Procedures Procedure [...] on filedocumented in this encounter Care Teams Low Altitude Air Defense Officer Relationship Specialty Start Date End Date Jessie Dover APRN PCP - General 06/19/13 08/29/18 documented as of this encounter
--- OUTSIDE RECORDS SUMMARY | 2024-04-26 13:26 | XMS_ITS | Encounter Summary ---
Author Organization [facility] [place] [address] Care Team Providers Care Package Drier Name Role Phone Genet Sauer MD Primary Care Provider [phone] Encounter Details Date Type Department Care Team (Late st Contact Info) Description 01/04/2013 External Results XRay at [address] [place] [address] Provider, Scanning Social History Tobacco Use Types [...] Visit Pulmonology at [facility] [place] [address] Kira Thayer MD [facility] [place] [address] documented as of this encounter Procedures Procedure [...] filedocumented in this encounter Care Teams Package Drier Relationship Specialty Start Date End Date Genet Sauer MD HOSPITALIST SERVICES [address] [place] [address] [place] [address] PCP - General 09/11/12 06/18/13 documented as of this encounter
--- OUTSIDE RECORDS SUMMARY | 2024-04-26 13:26 | XMS_ITS | Encounter Summary ---
[place] [address] Care Team Providers Care Contract Recruiter Name Role Phone Cathy Wu RYLAND Primary Care Provider [phone] Reason for Visit * Reason Comments Rash Encounter Details Date Type Department Care Team (Late st Contact Info) Description 08/27/2011 3:30 PM EDT Office Visit Dermatology [address] [place] [address] [address] [place] [address] Deven Payan MD [address], [place] [address] Pruritus (Primary Dx) Social History Tobacco Use [...] house has no itching. She works at [employer] in [employer], and she states there is a [...] 4:00 PM EDT [place] [address] Kira Thayer MD [facility] [place] [address] documented as of this encounter Visit Diagnoses Diagnosis Pruritus- Primary Unspecified pruritic disorder documented in this encounter Care Teams Contract Recruiter Relationship Specialty Start Date End Date Cathy Wu APRN PCP - General 08/27/11 09/10/12 documented as of this encounter
--- OUTSIDE RECORDS SUMMARY | 2024-04-26 13:26 | XMS_ITS | Encounter Summary ---
Author Organization [facility] [place] [address] Care Team Providers Care Internet Ecommerce Specialist Name Role Phone Belkys Bundy DO Primary Care Provider [phone] Encounter Details Date Type Department Care Team (Late st Contact Info) Description 01/01/2009 [place] [address] Macie Carreon MD DERMATOLOGY Social History Tobacco [...] 4:00 PM EDT Office [place] [address] Kira Thayer MD [facility] DR [place]MON[place] [address] documented as of this encounter Procedures Procedure Name Priority Date/Time Associated Diagnosis Comments SURGICAL PATHOLOGY REPORT Routine 01/01/2009 3:08 PM EDT documented in this encounter Results * Surgical Pathology Report (01/01/2009 3:08 PM EDT) Surgical Pathology Report [id number] ? Location: 4M The signing pathologist has [...] report in rendering the final pathologic diagnosis. [facility] 01/01/2009 3:08 PM EDT Macie Carreon MD PATHOLOGY/CYTOLOG Y ORDERABLES Performing Organization Address City/State/[facility] Co [place] Phone Number [facility] documented in this encounter Visit Diagnoses Not on filedocumented in this encounter Care Teams Internet Ecommerce Specialist Relationship Specialty Start Date End Date Belkys Bundy DO [address] [facility] [address] PCP - General Family Medicine 03/21/19 documented as of this encounter
--- OUTSIDE RECORDS SUMMARY | 2024-04-26 13:26 | XMS_ITS | Encounter Summary ---
Author Organization [facility] [place] [place] [address] Care Team Providers Care Sample Coordinator Name Role Phone Genet Sauer MD Primary Care Provider [phone] Encounter Details Date Type Department Care Team (Late st Contact Info) Description 12/31/2012 Orders Only [place] [address] Joao Interiano MD Social History Tobacco Use [...] 4:00 PM EDT Office Visit [place] [address] Kira Thayer MD [facility] [place] [address] Pending Results Name Type Priority Associated Diagnoses Date /Time Film Library- Storage only DX Chest Imaging Routine 12/31/2012 4:17 PM EDT documented as of this encounter Visit Diagnoses Not on filedocumented in this encounter Care Teams Sample Coordinator Relationship Specialty Start Date End Date Genet Sauer MD HOSPITALIST SERVICES [address] [place] [address] [place] [address] PCP - General 09/11/12 06/18/13 documented as of this encounter
--- OUTSIDE RECORDS SUMMARY | 2024-04-26 13:26 | XMS_ITS | Encounter Summary ---
Author Organization [facility] [place] [address] Care Team Providers Care Shell Sieve Operator Name Role Phone Genet Sauer MD Primary Care Provider [phone] Encounter Details Date Type Department Care Team (Late st Contact Info) Description 12/21/2011 Orders [place] [address] Joao Interiano MD Social History Tobacco Use [...] 4:00 PM EDT Office [place] [address] Kira Thayer MD [facility] PULMONARY MEDICINE [place] [phone] Pending Results Name Type Priority Associated Diagnoses Date /Time Film Library- Storage only DX Abdomen Imaging Routine 12/21/2011 4:31 PM EDT documented as of this encounter Visit Diagnoses Not on filedocumented in this encounter Care Teams Shell Sieve Operator Relationship Specialty Start Date End Date Genet Sauer MD HOSPITALIST SERVICES [address] [facility] [place] [address] PCP - General 09/11/12 06/18/13 documented as of this encounter
--- OUTSIDE RECORDS SUMMARY | 2024-04-26 13:26 | XMS_ITS | Encounter Summary ---
Author Organization [facility] Address [address] [place] [address] Care Team Providers Care Remote Inpatient Coder Name Role Phone Genet Sauer MD Primary Care Provider [phone] Encounter Details Date Type Department Care Team (Late st Contact Info) Description 03/29/2024 Lab Requisition [facility] Pathology & Laboratory Medicine - [address] [address] Outr Resulting Lab, Provider Social History Tobacco [...] See Note ng/mL 03/30/2024 13:03 EST [facility] Comment: NOTE: Tacrolimus Therapeutic Range: 3-12 ng/mL (The goal level is based on clinical context). Assayed utilizing [employer] Chemiluminescent technology. ??Values obtained using different assay methods cannot be used interchangeably. Blood VENOUS BLOOD / Unknown 03/29/2024 7:15 EST 03/29/2024 17:17 EST us Provider Outr Resulting Lab CHEMISTRY & BLOOD GA S ORDERABLES Final Result [facility] [address] [place], [place] [address] documented in this encounter Visit Diagnoses Not on filedocumented in this encounter Care Teams Remote Inpatient Coder Relationship Specialty Start Date End Date Genet Sauer MD [address] [place] [address] PCP - General 09/19/12 documented as of this encounter
--- OUTSIDE RECORDS SUMMARY | 2024-04-26 13:26 | XMS_ITS | Encounter Summary ---
[place] [address] Care Team Providers Care Burglar Alarm Operator Name Role Phone Genet Sauer MD Primary Care Provider [phone] Encounter Details Date Type Department Care Team (Latest Contact Info) Description 01/09/2013 8:53 AM EDT - 01/09/2013 11:59 PM EDT Hospital Encounter [place] [phone] Genet Sauer MD [address] [place] [address] [address] [place], [place] [id number] Discharge Disposition: Home Social History Tobacco Use [...] PM EDT Office [place] [address] Kira Thayer MD [facility] [place] [address] documented as of this encounter Procedures Procedure [...] Mid-thigh) Technique Procedure: Following IV injection of 79-ntkurv-9-deoxyglucose (FDG) and a standard uptake period, a [...] you for referring this patient to the [facility] Procedure Note Ammon Shea MD - 01/09/2013 Examination PET/CT STANDARD (Skull base to Mid-thigh) Technique Procedure: Following IV injection of 49-odkiut-2-deoxyglucose (FDG) and a standard uptake period, a [...] for referring this patient to the [facility] PET Center Genet Sauer MD IMG PET ORDERABLES * POCT Glucose (01/09/2013 9:12 AM EDT) Glucose, POC 90 60 - 199 mg/dL [facility] Comment: Supplemental ranges: <110 mg/dL before [...] mg documented in this encounter Care Teams Burglar Alarm Operator Relationship Specialty Start Date End Date Genet Sauer MD [facility] [address] [place] [address] [place] [address] PCP - General 09/11/12 06/18/13 documented as of this encounter
--- OUTSIDE RECORDS SUMMARY | 2024-04-26 13:26 | XMS_ITS | Encounter Summary ---
[place] [address] Care Team Providers Care Senior Applications Engineer Name Role Phone Cathy Wu APRN Primary Care Provider [phone] Encounter Details Date Type Department Care Team (Late st Contact Info) Description 09/07/2012 External Results XRay at [address] [place] [phone] Johan Riddle MD [address] [place] [address] Social History Tobacco Use Types Packs/Day Years [...] Pulmonology at [facility] [place] [address] Kira Thayer MD [facility] [place] [address] documented as of this encounter Procedures Procedure [...] filedocumented in this encounter Care Teams Senior Applications Engineer Relationship Specialty Start Date End Date Cathy Wu APRN PCP - General 08/27/11 09/10/12 documented as of this encounter
--- OUTSIDE RECORDS SUMMARY | 2024-04-26 13:26 | XMS_ITS | Encounter Summary ---
Author Organization [facility] [place] [address] Care Team Providers Care Computer Security Manager Name Role Phone Jessie Dover RYLAND Primary Care Provider [phone] Encounter Details Date Type Department Care Team (Late st Contact Info) Description 08/13/2014 [place] [address] Saad Chagn Jr., MD [facility] [place] [address] Social History Tobacco Use Types Packs/Day Years [...] 4:00 PM EDT Office [place] [address] Kira Thayer MD [facility] [place] [address] documented as of this encounter Visit Diagnoses Not on filedocumented in this encounter Care Teams Computer Security Manager Relationship Specialty Start Date End Date Jessie Dover APRN PCP - General 06/19/13 08/29/18 documented as of this encounter
--- OUTSIDE RECORDS SUMMARY | 2024-04-26 13:26 | XMS_ITS | Encounter Summary ---
Author Organization [facility] [place] [address] Care Team Providers Care Real Estate Professional Name Role Phone Genet Sauer MD Primary Care Provider [phone] Encounter Details Date Type Department Care Team (Late st Contact Info) Description 06/01/2013 Orders [place] [address] Joao Interiano MD Social History Tobacco Use [...] EDT Office [place] [address] Kira Thayer MD [facility] [place] [address] Pending Results Name Type Priority Associated Diagnoses Date /Time Film Library- Storage only CT Chest Imaging Routine 06/01/2013 4:13 PM EST documented as of this encounter Visit Diagnoses Not on filedocumented in this encounter Care Teams Real Estate Professional Relationship Specialty Start Date End Date Genet Sauer MD [facility] [address] [place] [address] [place] [address] PCP - General 09/11/12 06/18/13 documented as of this encounter
--- OUTSIDE RECORDS SUMMARY | 2024-04-26 13:26 | XMS_ITS | Encounter Summary ---
Author Organization [facility] [place] [address] Care Team Providers Care House Player Name Role Phone Genet Sauer MD Primary Care Provider Reason for Visit * Reason Comments Follow-up Encounter Details Date Type Department Care Team (Late st Contact Info) Description 10/09/2012 10:00 AM EDT Follow-[place] [address] Jennifer Burroughs APRN [facility] 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
--- OUTSIDE RECORDS SUMMARY | 2024-04-26 13:26 | XMS_ITS | Encounter Summary ---
Author Organization [facility] [place] [address] Care Team Providers Care Emg Technician Name Role Phone Genet Sauer MD Primary Care Provider [phone] Encounter Details Date Type Department Care Team (Late st Contact Info) Description 08/12/2011 Orders [place] [phone] Joao Interiano MD Social History Tobacco Use [...] PM EDT Office [place] [address] Kira Thayer MD [facility] [place] [address] Pending Results Name Type Priority Associated Diagnoses Date /Time Film Library- Storage only DX Chest Imaging Routine 08/12/2011 4:33 PM EDT documented as of this encounter Visit Diagnoses Not on filedocumented in this encounter Care Teams Emg Technician Relationship Specialty Start Date End Date Genet Sauer MD HOSPITALIST SERVICES [address] [place] [address] [address] [place] [id number] PCP - General 09/11/12 06/18/13 documented as of this encounter
--- OUTSIDE RECORDS SUMMARY | 2024-04-26 13:26 | XMS_ITS | Encounter Summary ---
Author Organization [facility] [place] [address] Care Team Providers Care Senior Clinical Research Scientist Name Role Phone Cathy Wu RYLAND Primary Care Provider [phone] Encounter Details Date Type Department Care Team (Late st Contact Info) Description 08/21/2012 Orders Only [place] [address] Jennifer Burroughs APRN [facility] GASTROENTEROLOGY DEPT. [place], [place] [phone] Social History Tobacco Use Types Packs/Day Years [...] 4:00 PM EDT Office [place] [address] Kira Thayer MD [facility] [place] [address] documented as of this encounter Procedures Procedure [...] filedocumented in this encounter Care Teams Senior Clinical Research Scientist Relationship Specialty Start Date End Date Cathy Wu APRN PCP - General 08/27/11 09/10/12 documented as of this encounter
--- OUTSIDE RECORDS SUMMARY | 2024-04-26 13:26 | XMS_ITS | Encounter Summary ---
Author Organization [facility] [place] [address] Care Team Providers Care Fashion Consultant Sales Name Role Phone Genet Sauer MD Primary Care Provider [phone] Encounter Details Date Type Department Care Team (Late st Contact Info) Description 01/12/2010 Orders [place] [address] Joao Interiano MD Social History Tobacco Use [...] 4:00 PM EDT Office [place] [address] Kira Thayer MD [facility] [place] [address] Pending Results Name Type Priority Associated Diagnoses Date /Time Film Library- Storage only DX Chest Imaging Routine 01/12/2010 4:51 PM EDT documented as of this encounter Visit Diagnoses Not on filedocumented in this encounter Care Teams Fashion Consultant Sales Relationship Specialty Start Date End Date Genet Sauer MD HOSPITALIST [facility] [address] [place] [address] [address] [place] [address] PCP - General 09/11/12 06/18/13 documented as of this encounter
--- OUTSIDE RECORDS SUMMARY | 2024-04-26 13:26 | XMS_ITS | Encounter Summary ---
Author Organization [facility] [place] [address] Care Team Providers Care Software Firmware Engineer Name Role Phone Jessie Dover RYLAND Primary Care Provider [phone] Encounter Details Date Type Department Care Team (Late st Contact Info) Description 05/03/2014 [place] [address] Saad Chang Jr., MD [facility] [place] [address] Social History Tobacco Use Types Packs/Day Years [...] 4:00 PM EDT Office [place] [address] Kira Thayer MD [facility] [place] [address] documented as of this encounter Procedures Procedure [...] on filedocumented in this encounter Care Teams Software Firmware Engineer Relationship Specialty Start Date End Date Jessie Dover APRN PCP - General 06/19/13 08/29/18 documented as of this encounter
--- OUTSIDE RECORDS SUMMARY | 2024-04-26 13:26 | XMS_ITS | Encounter Summary ---
Author Organization [facility] [place] [address] Care Team Providers Care Chief Projectionist Name Role Phone Jessie Dover RYLAND Primary Care Provider Encounter Details Date Type Department Care Team (Late st Contact Info) Description 07/11/2014 [place] [address] Saad Chang Jr., MD [facility] [place] [address] Social History Tobacco Use Types Packs/Day Years [...] 4:00 PM EDT [place] [address] Kira Thayer MD [facility] [place] [address] documented as of this encounter Procedures Procedure [...] filedocumented in this encounter Care Teams Chief Projectionist Relationship Specialty Start Date End Date Jessie Dover APRN PCP - General 06/19/13 08/29/18 documented as of this encounter
--- OUTSIDE RECORDS SUMMARY | 2024-04-26 13:26 | XMS_ITS | Encounter Summary ---
Author Organization [facility] Address [address] [place] [address] Care Team Providers Care Marketing Communications Associate Name Role Phone Genet Sauer MD Primary Care Provider Encounter Details Date Type Department Care Team (Late st Contact Info) Description 08/07/2022 Lab Requisition [facility] Pathology & Laboratory Medicine - [address] [address] Outr Resulting Lab, Provider Social History Tobacco [...] Salmonella PCR Unresolved Negative 08/09/2022 11:46 EDT [facility] Comment:An UNRESOLVED or IND [...] E. coli Unresolved Negative 08/09/2022 11:46 T [facility] Comment:An UNRESOLVED or IND [...] CAMPYLOBACTER PCR Unresolved Negative 08/09/2022 11:46 EDT [facility] Comment:An UNRESOLVED or IND [...] Shiga Toxin PCR Unresolved Negative 11:46 T [facility] Comment:An UNRESOLVED or IND [...] MICROBIOLOGY - GENER AL ORDERABLES Final Result [facility] [address] [place] [address] documented in this encounter Visit Diagnoses Not on filedocumented in this encounter Care Teams Marketing Communications Associate Relationship Specialty Start Date End Date Genet Sauer MD [address] [place] [address] PCP - General 09/19/12 documented as of this encounter
--- OUTSIDE RECORDS SUMMARY | 2024-04-26 13:26 | XMS_ITS | Encounter Summary ---
Author Organization [facility] Address [address] [place] [address] Care Team Providers Care Medical Unit Secretary Name Role Phone Genet Sauer MD Primary Care Provider [phone] Encounter Details Date Type Department Care Team (Late st Contact Info) Description 10/05/2023 Lab Requisition [facility] Pathology & Laboratory Medicine - [address] [address] Outr Resulting Lab, Provider Social History Tobacco [...] Ab Positive See Note 10/06/2023 11:09 EDT [facility] Comment:Presence of detectab le measles virus IgG antibodies. Blood VENOUS BLOOD / Unknown 10/05/2023 9:32 EDT 10/05/2023 19:26 EDT us Provider Outr Resulting Lab IMMUNOLOGY AND SEROL OGY ORDERABLES Final Result Performing Organization Address City/[facility]/ZIP Co de Phone Number [facility] [address] [place] [address] * MUMPS ANTIBODY IGG (10/05/2023 9:32 EDT) Mumps Antibody IgG Positive See Note 10/06/2023 11:10 EDT [facility] Comment:Presence of detectab le mumps virus IgG antibodies. Blood VENOUS BLOOD / Unknown 10/05/2023 9:32 EDT 10/05/2023 19:26 EDT us Provider Outr Resulting Lab IMMUNOLOGY AND SEROL OGY ORDERABLES Final Result Performing Organization Address [facility] Co de Phone Number [facility] [address] [place] [address] * RUBELLA IGG ANTIBODY (10/05/2023 9:32 EDT) Rubella IgG Ab Positive See Note 10/06/2023 11:11 EDT [facility] Comment:Positive for IgG ant ibodies to Rubella virus. Blood VENOUS BLOOD / Unknown 10/05/2023 9:32 EDT 10/05/2023 19:26 EDT us Provider Outr Resulting Lab CHEMISTRY & BLOOD GA S ORDERABLES Final Result Performing Organization Address City/[facility]/ZIP Co de Phone Number [facility] [address] [place] [address] documented in this encounter Visit Diagnoses Not on filedocumented in this encounter Care Teams Medical Unit Secretary Relationship Specialty Start Date End Date Genet Sauer MD [address] [place] [id number] PCP - General 09/19/12 documented as of this encounter
--- OUTSIDE RECORDS SUMMARY | 2024-04-26 13:26 | XMS_ITS | Encounter Summary ---
Author Organization [facility] [place] [address] Care Team Providers Care Second Helper Name Role Phone Genet Sauer MD Primary Care Provider [phone] Encounter Details Date Type Department Care Team (Late st Contact Info) Description 01/09/2011 [place] [phone] Joao Interiano MD Social History Tobacco Use [...] 4:00 PM EDT [place] [address] Kira Thayer MD [facility] [place] [address] Pending Results Name Type Priority Associated Diagnoses Date /Time Film Library- Storage only DX Chest Imaging Routine 01/09/2011 4:35 PM EDT documented as of this encounter Visit Diagnoses Not on filedocumented in this encounter Care Teams Second Helper Relationship Specialty Start Date End Date Genet Sauer MD HOSPITALIST SERVICES [address] [place] [address] [place] [address] PCP - General 09/11/12 06/18/13 documented as of this encounter
--- OUTSIDE RECORDS SUMMARY | 2024-04-26 13:26 | XMS_ITS | Encounter Summary ---
Author Organization [facility] [place] [address] Care Team Providers Care Associate Professor Of English Name Role Phone Genet Sauer MD Primary Care Provider [phone] Encounter Details Date Type Department Care Team (Late st Contact Info) Description 06/14/2013 External Results XRay at [address] [place] [address] Provider, Scanning Social History Tobacco Use Types [...] Office Visit Pulmonology at [facility] [place] [address] Kira Thayer MD [facility] [place] [address] documented as of this encounter Procedures Procedure [...] on filedocumented in this encounter Care Teams Associate Professor Of English Relationship Specialty Start Date End Date Genet Sauer MD HOSP[facility]IST [facility] [address] [place] [address] [place] [address] PCP - General 09/11/12 06/18/13 documented as of this encounter
--- OUTSIDE RECORDS SUMMARY | 2024-04-26 13:26 | XMS_ITS | Encounter Summary ---
Author Organization [facility] [place] [address] Care Team Providers Care Conductor/Engineer Name Role Phone Belkys Bundy DO Primary Care Provider [phone] Encounter Details Date Type Department Care Team (Late st Contact Info) Description 12/11/2008 [place] [address] Macie Carreon MD DERMATOLOGY Social History Tobacco [...] EDT Office [place] [address] Kira Thayer MD [facility] [place] [address] documented as of this encounter Procedures Procedure Name Priority Date/Time Associated Diagnosis Comments SURGICAL PATHOLOGY REPORT Routine 12/11/2008 3:44 PM EDT documented in this encounter Results * Surgical Pathology Report (12/11/2008 3:44 PM EDT) Pathologist [facility] Surgical Pathology Report [id number] ? Location: 4M The signing pathologist has [...] MD PATHOLOGY/CYTOLOG Y ORDERABLES Performing Organization Address City/State/[facility] Co de Phone Number NICHOLAS GREENBERG documented in this encounter Visit Diagnoses Not on filedocumented in this encounter Care Teams Conductor/Engineer Relationship Specialty Start Date End Date Belkys Bundy DO [address] [facility] [place] [address] PCP - General Family Medicine 03/21/19 documented as of this encounter
--- OUTSIDE RECORDS SUMMARY | 2024-04-26 13:26 | XMS_ITS | Encounter Summary ---
Author Organization [facility] [place] [address] Care Team Providers Care Pile Header Name Role Phone Cathy Wu RYLAND Primary Care Provider [phone] Encounter Details Date Type Department Care Team (Late st Contact Info) Description 08/21/2012 Orders [place] [address] Jennifer Burroughs APRN [facility] GASTROENTEROLOGY DEPT. [place], [place] [phone] Social History Tobacco Use Types Packs/Day Years [...] 4:00 PM EDT [place] [address] Kira Thayer MD [facility] [place] [address] documented as of this encounter Procedures Procedure [...] Burroughs APRN IMSenait FILM LIBRARY ORD ERABLES [facility] [address] [facility] [place] [address] documented in this encounter Visit Diagnoses Not on filedocumented in this encounter Care Teams Pile Header Relationship Specialty Start Date End Date Cathy Wu APRN PCP - General 08/27/11 09/10/12 documented as of this encounter
--- OUTSIDE RECORDS SUMMARY | 2024-04-26 13:26 | XMS_ITS | Encounter Summary ---
Author Organization [facility] [place] [address] Care Team Providers Care Poultry Processing Supervisor Name Role Phone Genet Sauer MD Primary Care Provider [phone] Reason for Visit * Reason Comments GI Problem Encounter Details Date Type Department Care Team (Late st Contact Info) Description 09/11/2012 2:30 PM EDT Office [place] [address] Jennifer Burroughs APRN [facility] DR 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 [employer] OUTSIDE TESTIN08/10/2011 tprot 6.7, alb 4.0, ap [...] 4:00 PM EDT Office [place] [address] Kira Thayer MD [facility] [place] [address] documented as of this encounter Procedures Procedure Name Priority Date/Time Associated Diagnosis Comments .A1AT GENOTYPE Routine 09/11/2012 3:46 PM EDT Elevated liver function tests A1AT GENOTYPE PROFILE Routine 09/11/2012 3:46 PM EDT Elevated liver function tests DIFFERENTIAL, AUTOMATED Routine 09/11/2012 3:46 PM EDT IRON AND TIBC Routine 09/11/2012 3:46 PM EDT Elevated liver function tests [id number] Routine 09/11/2012 3 :46 PM EDT Elevated [...] resulting in the S phenotype ([id number].863 A>T; [id number]) and the Z phenotype (c. 1096G>A; [id number]) are amplified and genotyped by two separate [...] determined by the Molecular Pathology Laboratory at [facility]. This test is used for clinical purposes [...] MD CHEMISTRY ORDERABLE S Performing Organization Address [facility]/ZIP Co de Phone Number CERNER MILLENNIUM [...] MD IMMUNOLOGY ORDERABL ES Performing Organization Address [facility] Co de Phone Number [facility] * A1AT Serum Concentration (09/11/2012 3:46 PM EDT) A1AT 146 100 - 190 mg/dL [facility] Comment: Test Performed by: [facility] [place] [address] Instrumentation Engineering Technician: Celeste Stockton, Ph.D. Blood specimen (specimen) 09/11/2012 3:46 PM EDT 09/12/2012 7:30 AM EDT Narrative Resulting Agency Comment Spec In Lab Amadeo Rivera MD CHEMISTRY ORDERABLE S Performing Organization Address [facility] Co de Phone Number [facility] * Iron and TIBC [...] MD CHEMISTRY ORDERABLE S Performing Organization Address [facility] Co de Phone Number CERNER MILLENNIUM * Ferritin (09/11/2012 3:46 PM EDT) Ferritin 39 15 - 150 ng/mL CERNER MILLENNIUM Comment: Pediatric reference ranges not verified at [facility], interpret with caution. Reference ranges for females greater than 50 years of age approach values for men, i.e., 30-400 ng/mL. Blood specimen (specimen) 09/11/2012 3:46 PM EDT 09/11/2012 3:54 PM EDT Narrative Resulting Agency Comment Spec In Lab Amadeo Rivera MD CHEMISTRY ORDERABLE S Performing Organization Address [facility] Co de Phone Number [facility] * GISSELLE (09/11/2012 3:46 PM EDT) GISSELLE Neg Neg [facility] Blood specimen (specimen) 09/11/2012 3:46 PM EDT 09/12/2012 8:09 AM EDT Narrative Resulting Agency Comment Spec In Lab Amadeo Rivera MD LAB SEND OUT ORDERA BLES Performing Organization Address [facility] de Phone Number [facility] * Smooth Muscle Antibody (09/11/2012 3:46 PM EDT) Sm Muscle Ab (AUGUST) Negative Negative [facility] MILLENNIUM Comment: Test Performed by: [place] [address] Instrumentation Engineering Technician: Ambrose Moreno III, M.D. Blood specimen (specimen) 09/11/2012 3:46 PM EDT 09/12/2012 7:25 AM EDT Narrative Resulting Agency Comment Spec In Lab Amadeo Rivera MD LAB SEND OUT ORDERA BLES Performing Organization Address [facility] de Phone Number [facility] * Mitochondrial Antibody, M2 (09/11/2012 3:46 PM EDT) Mitochon Ab (AUGUST) <0.1 <0.1 (Negative) U [facility] Comment: Test Performed by: [place] [address] Instrumentation Engineering Technician: Ambrose Moreno III, M.D. Blood specimen (specimen) [...] MD CHEMISTRY ORDERABLE S Performing Organization Address [facility]/ZIP Co de Phone Number NICHOLAS MORRISONIUM * (ABNORMAL) IgG (09/11/2012 3:46 PM EDT) Immunoglobulin G 688(L) 700 - 1,600 mg/dL [facility] Blood specimen (specimen) 09/11/2012 3:46 PM EDT 09/11/2012 3:54 PM EDT Narrative Resulting Agency Comment Spec In Lab Amadeo Rivera MD CHEMISTRY ORDERABLE S Performing Organization Address [facility] Co de Phone Number NICHOLAS GUILLERMOENNIUM * IgM (09/11/2012 3:46 PM EDT) IgM 59 40 - 230 mg/dL [facility] Blood specimen (specimen) 09/11/2012 3:46 PM EDT 09/11/2012 3:54 PM EDT Narrative Resulting Agency Comment Spec In Lab Amadeo Rivera MD CHEMISTRY ORDERABLE S [facility] * Ceruloplasmin (09/11/2012 3:46 PM EDT) Ceruloplasmin 25.0 16.0 - 45.0 mg/dL CERNER MILLENNIUM Comment: Test Performed by: [facility] [address] [address] Instrumentation Engineering Technician: Celeste Stockton, Ph.D. Blood specimen (specimen) 09/11/2012 3:46 PM EDT 09/12/2012 7:30 AM EDT Narrative Resulting Agency Comment Spec In Lab Amadeo Rivera MD CHEMISTRY ORDERABLE S Performing Organization Address City/[facility]/ZIP Co de Phone Number CERNER MILLENNIUM [...] MD CHEMISTRY ORDERABLE S Performing Organization Address [facility]/ZIP Co de Phone Number CERNER MILLENNIUM [...] MD CHEMISTRY ORDERABLE S Performing Organization Address [facility] de Phone Number [facility] * Hepatitis B Surface Antigen (09/11/2012 3:46 PM EDT) Hepatitis B Surface Antigen Negative Negative [facility] Blood specimen (specimen) 09/11/2012 3:46 PM EDT 09/11/2012 3:54 PM EDT Narrative Resulting Agency Comment Spec In Lab Amadeo Rivera MD CHEMISTRY ORDERABLE S Performing Organization Address [facility] Co de Phone Number [facility] documented in this encounter Visit Diagnoses Diagnosis Elevated liver function tests- Primary Other abnormal blood chemistry documented in this encounter Care Teams Poultry Processing Supervisor Relationship Specialty Start Date End Date Genet Sauer MD [facility] [address] [place] [address] [place] [address] PCP - General 09/11/12 06/18/13 documented as of this encounter
--- OUTSIDE RECORDS SUMMARY | 2024-04-26 13:26 | XMS_ITS | Encounter Summary ---
Author Organization [facility] [place] [address] Care Team Providers Care Subassembly Assembler Name Role Phone Jessie Dover RYLAND Primary Care Provider [phone] Encounter Details Date Type Department Care Team (Late st Contact Info) Description 06/19/2013 [place] [phone] Daryl Hurt MD [facility] [place] [address] Social History Tobacco Use Types Packs/Day Years [...] 4:00 PM EDT [place] [address] Kira Thayer MD [facility] [place] [address] documented as of this encounter Results * [...] exacerbation documented in this encounter Care Teams Subassembly Assembler Relationship Specialty Start Date End Date Jessie Dover APRN PCP - General 06/19/13 08/29/18 documented as of this encounter
--- OUTSIDE RECORDS SUMMARY | 2024-04-26 13:26 | XMS_ITS | Encounter Summary ---
Author Organization [facility] [place] [address] Care Team Providers Care Admissions Manager Rn Name Role Phone Belkys Bundy DO Primary Care Provider [phone] Encounter Details Date Type Department Care Team (Late st Contact Info) Description 12/26/2008 [place] [address] Macie Carreon MD DERMATOLOGY Social History Tobacco [...] EDT Office [place] [address] Kira Thayer MD [facility] [place] [address] documented as of this encounter Procedures Procedure Name Priority Date/Time Associated Diagnosis Comments SURGICAL PATHOLOGY REPORT Routine 12/26/2008 3:03 PM EDT documented in this encounter Results * Surgical Pathology Report (12/26/2008 3:03 PM EDT) Pathologist [facility] Surgical Pathology Report [id number] ? Location: 4M The signing pathologist has (i) examined the relevant preparation(s) for the specimen(s) and (ii) rendered or confirmed the diagnosis(es). . ?Pathology Surgical Pathology Final Report Clinical Information Specimen Submitted: A - Central upper back, Re-excision - Not Oriented (1): Clinical History: See previous path [id number] Clinical Diagnosis: Scar vs residual Gross Description [...] MD PATHOLOGY/CYTOLOG Y ORDERABLES Performing Organization Address City/State/[facility] Co de Phone Number [facility]ISONFORM[facility]LY [facility] documented in this encounter Visit Diagnoses Not on filedocumented in this encounter Care Teams Admissions Manager Rn Relationship Specialty Start Date End Date Belkys Bundy DO [address] [facility] [place] [address] PCP - General Family Medicine 03/21/19 documented as of this encounter
--- OUTSIDE RECORDS SUMMARY | 2024-04-26 13:26 | XMS_ITS | Encounter Summary ---
Author Organization [facility] [place] [address] Care Team Providers Care Program Developer Name Role Phone WayneJessie beckham Senait MARCELINO Primary Care Provider [phone] Reason for Visit * Reason Comments Nephrolithiasis Encounter Details Date Type Department Care Team (Latest Contact Info) Description 08/13/2014 3:20 PM EDT [place] [address] Kaiser Chang Jr., MD [facility] [place] [address] Recurrent nephrolithiasis Discharge Disposition: Home Social History [...] this, she had a repeat ultrasound at 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 This reveals no hydronephrosis,possibly a stone in [...] 4:00 PM EDT Office [place] [address] Kira Thayer MD [facility] [place] [address] documented as of this encounter Results * [...] kidney documented in this encounter Care Teams Program Developer Relationship Specialty Start Date End Date Jessie Dover APRN PCP - General 06/19/13 08/29/18 documented as of this encounter
--- OUTSIDE RECORDS SUMMARY | 2024-04-26 13:26 | XMS_ITS | Encounter Summary ---
Author Organization [facility] [place] [address] Care Team Providers Care Sheet Rock Installer Name Role Phone AscensionJessie beckham Senait MARCELINO Primary Care Provider [phone] Reason for Visit * Reason Comments Referral Encounter Details Date Type Department Care Team (Late st Contact Info) Description 06/19/2013 2:30 PM EDT Office [place] [address] Daryl Hurt MD [facility] [place] [address] Lung nodule (Primary Dx); COPD (chronic obstructive [...] imaging to be done here or at [facility]. * Woo Jiménez MD - 06/19/2013 10:48 AM EDT [facility] Section of Pulmonary and Critical Care Medicine Date of Encounter: 06/19/2013 Location: Office Referring Provider: Daryl Hurt Md [facility] [place] [address] C/C: Lung nodule HPI: 42 y/o female seen for recently discovered lung nodule. As per the patient she had COPD exacerbation for which she was admitted at [facility] in 01/2013. She was in hospital for about 4 days followingwhich she was discharged home on oxygen. She was not intubated during that visit. During that admission they found her to have a nodule in her lung. She was seen by pulmonary at [facility] and was told notto work due [...] Lives with her mother. 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 Family History: Father alive 70 yrs [...] comfortably, able to talk in full sentence ELECTRICAL DESIGN TECHNICIAN: A and OX3, no focal motor deficits [...] CT CHEST. This can be done at [facility] or it can be done here at [facility]. Smoking cessation as discussed in #4. 2. [...] has been seeing smoking cessation program at [facility]. We did talk about it detail on today's visit and recommended cessation as the best thing she can do for herself. She can follow up with her esthetician/skin therapist at [facility] or with us at [facility]. As this time no follow up appointment has been scheduled. Patient seen and examined with Dr Hurt. documented in this encounter Plan of Treatment Upcoming Encounters Date Type Department Care Team (Late st Contact Info) Description 08/27/2024 4:00 PM EDT Office [place] [address] Kira Thayer MD [facility] [place] [address] documented as of this encounter Visit Diagnoses Diagnosis Lung nodule- Primary Solitary pulmonary nodule COPD (chronic obstructive pulmonary disease) Chronic airway obstruction, not elsewhere classified Smoking Tobacco use disorder Hypoxemia documented in this encounter Care Teams Sheet Rock Installer Relationship Specialty Start Date End Date Jessie Dover APRN PCP - General 06/19/13 08/29/18 documented as of this encounter
--- OUTSIDE RECORDS SUMMARY | 2024-04-26 13:26 | XMS_ITS | Encounter Summary ---
Author Organization [facility] [place] [address] Care Team Providers Care Pleater Hand Name Role Phone Cathy Wu RYLAND Primary Care Provider [phone] Encounter Details Date Type Department Care Team (Late st Contact Info) Description 11/28/2011 Orders Only [place] [address] [facility] GASTR[facility]OLOG[facility] DEPT. [place], [place] [id number] Social History Tobacco Use Types Packs/Day Years [...] PM EDT Office [place] [address] [facility] [place] [address] documented as of this encounter Procedures Procedure [...] APRN IMSenait FILM LIBRARY ORD ERABLES [facility] [address] [facility] [place] [address] documented in this encounter Visit Diagnoses Not on filedocumented in this encounter Care Teams Pleater Hand Relationship Specialty Start Date End Date Cathy Wu APRN PCP - General 08/27/11 09/10/12 documented as of this encounter
--- OUTSIDE RECORDS SUMMARY | 2024-04-26 13:26 | XMS_ITS | Encounter Summary ---
Author Organization [facility] [place] [address] Care Team Providers Care Drill Rig Operator Name Role Phone Genet Sauer MD Primary Care Provider [phone] Encounter Details Date Type Department Care Team (Late st Contact Info) Description 01/02/2013 Orders [place] [address] Sammie Johnson MD [facility] [place] [address] Social History Tobacco Use Types Packs/Day Years [...] EDT Office [place] [address] Kira Thayer MD [facility] [place] [address] documented as of this encounter Procedures Procedure [...] ERABLES [facility] [address] [place] [address] documented in this encounter Visit Diagnoses Not on filedocumented in this encounter Care Teams Drill Rig Operator Relationship Specialty Start Date End Date Genet Sauer MD [facility] [address] [place] [address] [place] [address] PCP - General 09/11/12 06/18/13 documented as of this encounter
--- OUTSIDE RECORDS SUMMARY | 2024-04-26 13:26 | XMS_ITS | Encounter Summary ---
Author Organization [facility] [place] [address] Care Team Providers Care Tool Polishing Machine Operator Name Role Phone Genet Sauer MD Primary Care Provider [phone] Encounter Details Date Type Department Care Team (Late st Contact Info) Description 08/23/2009 [place] [address] Joao Interiano MD Social History Tobacco Use [...] EDT [place] [address] Kira Thayer MD [facility] [place] [address] Pending Results Name Type Priority Associated Diagnoses Date /Time Film Library- Storage only DX Chest Imaging Routine 08/23/2009 4:55 PM EDT documented as of this encounter Visit Diagnoses Not on filedocumented in this encounter Care Teams Tool Polishing Machine Operator Relationship Specialty Start Date End Date Genet Sauer MD [facility] [address] [place] [address] [address] [place] [id number] PCP - General 09/11/12 06/18/13 documented as of this encounter
--- OUTSIDE RECORDS SUMMARY | 2024-04-26 13:26 | XMS_ITS | Referral Summary ---
Author Organization [facility] Address [address] [place] [address] Care Team Providers Care Ranch Manager Name Role Phone Genet Sauer MD Primary Care Provider [phone] Encounters Date Type Department Care Team Description 04/23/2024 Lab Requisition [facility] Pathology & Laboratory [address] [address] Outr Resulting Lab, Provider 03/29/2024 Lab Requisition [facility] Pathology & Laboratory [facility] [address] [place] [address] Outr Resulting Lab, Provider from Last 3 [...] Salmonella PCR Negative Negative 04/24/2024 15:25 EST [facility] Shigella/Enteroin vasive E. coli Negative Negative 04/24/2024 15:25 EST [facility] HN LAB CAMPYLOBACTER PCR Negative Negative 04/24/2024 15:25 EST [facility] Shiga Toxin PCR Negative Negative 15:25 EST [facility] Feces SPECIMEN FROM RECTUM / Unknown 04/23/2024 5:30 EST 04/23/2024 21:26 EST us Provider Outr Resulting Lab MICROBIOLOGY - GENER AL ORDERABLES Final Result Performing Organization Address City/[facility]/ZIP Co de Phone Number [facility] [address] [place] [address] * TACROLIMUS ([id number]) (03/29/2024 7:15 EST) Tacrolimus 8.2 See Note ng/mL 03/30/2024 13:03 EST [facility] Comment: NOTE: Tacrolimus Therapeutic Range: 3-12 ng/mL (The goal level is based on clinical context). Assayed utilizing PhotoBox Chemiluminescent technology. ??Values obtained using different assay methods cannot be used interchangeably. Blood VENOUS BLOOD / Unknown 03/29/2024 7:15 EST 03/29/2024 17:17 EST us Provider Outr Resulting Lab CHEMISTRY & BLOOD GA S ORDERABLES Final Result Performing Organization Address City/[facility]/ZIP Co de Phone Number [facility] [address], [place] [address] from Last 3 Months Insurance MEDICARE [employer] [place] Care Teams Ranch Manager Relationship Specialty Start Date End Date Genet Sauer MD [address] [place] [address] PCP - General 09/19/12
--- OUTSIDE RECORDS SUMMARY | 2024-04-26 13:26 | XMS_ITS | Encounter Summary ---
Author Organization [facility] [place] [address] Care Team Providers Care Senior Cyber Security Analyst Name Role Phone Genet Sauer MD Primary Care Provider [phone] Encounter Details Date Type Department Care Team (Late st Contact Info) Description 06/07/2012 Orders [place] [address] Joao Interiano MD Social History Tobacco Use [...] 4:00 PM EDT [place] [address] Kira Thayer MD [facility] [place] [address] Pending Results Name Type Priority Associated Diagnoses Date /Time Film Library- Storage only DX Chest Imaging Routine 06/07/2012 4:19 PM EST documented as of this encounter Visit Diagnoses Not on filedocumented in this encounter Care Teams Senior Cyber Security Analyst Relationship Specialty Start Date End Date Genet Sauer MD HOSPITALIST SERVICES [address] [place] [address] [place] [address] PCP - General 09/11/12 06/18/13 documented as of this encounter
--- OUTSIDE RECORDS SUMMARY | 2024-04-26 13:26 | XMS_ITS | Encounter Summary ---
Author Organization [facility] [place] [address] Care Team Providers Care Case Coordinator Name Role Phone Cathy Wu RYLAND Primary Care Provider [phone] Encounter Details Date Type Department Care Team (Late st Contact Info) Description 08/25/2012 Orders Only [place] [address] Jennifer Burroughs APRN [facility] [place] [address] Social History Tobacco Use Types Packs/Day Years [...] 4:00 PM EDT Office Visit [place] [address] Kira Thayer MD [facility] [place] [address] documented as of this encounter Procedures Procedure [...] This is a non-reportable exam. Procedure Note oMno Tate - 05/14/2013 This is a non-reportable exam. Jennifer Burroughs APRN IMG FILM LIBRARY ORD ERABLES documented in this encounter Visit Diagnoses Not on filedocumented in this encounter Care Teams Case Coordinator Relationship Specialty Start Date End Date Cathy Wu APRN PCP - General 08/27/11 09/10/12 documented as of this encounter
--- OUTSIDE RECORDS SUMMARY | 2024-04-26 13:26 | XMS_ITS | Encounter Summary ---
Author Organization [facility] [place] [address] Care Team Providers Care Weight Count Operator Name Role Phone Genet Sauer MD Primary Care Provider [phone] Encounter Details Date Type Department Care Team (Late st Contact Info) Description 04/30/2009 Orders [place] [phone] Joao Interiano MD Social History Tobacco Use [...] 4:00 PM EDT Office [place] [address] Kira Thayer MD [facility] [place] [address] Pending Results Name Type Priority Associated Diagnoses Date /Time Film Library- Storage only DX Chest Imaging Routine 04/30/2009 4:57 PM EST documented as of this encounter Visit Diagnoses Not on filedocumented in this encounter Care Teams Weight Count Operator Relationship Specialty Start Date End Date Genet Sauer MD [facility] [address] [place] [address] [place] [address] PCP - General 09/11/12 06/18/13 documented as of this encounter
--- OUTSIDE RECORDS SUMMARY | 2024-04-26 13:27 | XMS_ITS | Encounter Summary ---
Author Organization [facility] Address [address] [place] [address] Care Team Providers Care Clam Digger Name Role Phone Genet Sauer MD Primary Care Provider [phone] Encounter Details Date Type Department Care Team (Late st Contact Info) Description 02/21/2014 Results Only [facility]- PRISM [phone] Molina Hopkins, DO [address] [place] [address] Social History Tobacco Use Types [...] ? JESSIE SANCHEZ ? Accession #: ? [id number] ? : ? 1970 (Age: 43) ??F ? Collect Date: ? 02/21/2014 ? Location: ? [facility] ? Receive Date: ? 02/22/2014 ? Provider: MOLINA HOPKINS DO Copy to: JESSIE CALDERON POLICY WRITER TYPIST ? Final Pathologic Diagnosis: APPENDIX, APPENDECTOMY: - [...] adjacent to the proximal stapled margin, two customer assistance representative cross sections and one half of the longitudinally bisected distal tip are submitted in 1. Karuna Amaral 02/22/2014 12:[address] [facility] 02/21/2014 8:40 EST 02/22/2014 8:40 EST us Molina Hopkins DO PATHOLOGY ORDERABLES Final Res ult [facility] [address] [place] [address] documented in this encounter Visit Diagnoses Not on filedocumented in this encounter Care Teams Clam Digger Relationship Specialty Start Date End Date Genet Sauer MD [address] [place] [address] PCP - General 09/19/12 documented as of this encounter
--- OUTSIDE RECORDS SUMMARY | 2024-04-26 13:27 | XMS_ITS | Encounter Summary ---
Author Organization [facility] Address [address] [place] [address] Care Team Providers Care Cover Seamer Name Role Phone Genet Sauer MD Primary Care Provider [phone] Encounter Details Date Type Department Care Team (Late st Contact Info) Description 01/15/2020 Lab Requisition [facility] Pathology & Laboratory Medicine - [address] [address] Outr Resulting Lab, Provider Social History Tobacco [...] ova and parasites seen. 01/16/2020 14:31 EDT [facility] Feces SPECIMEN FROM RECTUM / Unknown 01/14/2020 17:56 EDT 01/15/2020 20:38 EDT Narrative [facility] - 01/16/2020 14:31 EDT (If Cryptosporidium, Cyclospora, or Microsporidium are suspected, specific tests must be requested.) Single negative specimen does not rule out the possibility of a parasitic infection. us Provider Outr Resulting Lab MICROBIOLOGY - GENER AL ORDERABLES Final Result [facility] [address] [place] [address] documented in this encounter Visit Diagnoses Not on filedocumented in this encounter Care Teams Cover Seamer Relationship Specialty Start Date End Date Genet Sauer MD [address] [place] [address] PCP - General 09/19/12 documented as of this encounter
--- OUTSIDE RECORDS SUMMARY | 2024-04-26 13:27 | XMS_ITS | Encounter Summary ---
Author Organization [facility] Address [address] [place] [address] Care Team Providers Care Web Analyst Name Role Phone Rosemary Rodriguez MD Primary Care Provide r Unavailable Encounter Details Date Type Department Care Team (Late st Contact Info) Description 09/27/2008 Orders Only [facility] - [facility] [place] [address] [place] [phone] Kalia Combs MD [address] [place] [address] Social History Tobacco Use Types Packs/Day Years [...] when reading/interpreting unformatted reports. ? Name: ? LEBEL, JESSIE ? Accession #: ? [id number] ? : ? 1970 (Age: 38) ??F [...] chronic mastitis. Clinical correlation is essential. ? International Flight Attendant sections of this case have been reviewed [...] Gross Description: ? Received in formalin labelled Soilabel, Jessie and left breast tissue is an [...] PATHOLOGY ORDERABLES Final Result [facility] [address] [place] [address] documented in this encounter Visit Diagnoses Not on filedocumented in this encounter Care Teams Web Analyst Relationship Specialty Start Date End Date Rosemary Rodriguez MD PCP - General 08/26/0809/10 documented as of this encounter
--- OUTSIDE RECORDS SUMMARY | 2024-04-26 13:27 | XMS_ITS | Encounter Summary ---
Author Organization [facility] Address [address] [place] [address] Care Team Providers Care Town Clerk Name Role Phone Unavailable Primary Care Provider Unavailabl e Encounter Details Date Type Department Care Team (Late st Contact Info) Description 08/22/2008 Orders Only [facility] Laboratory Services - [facility] [place] [address] [place] [phone] Kalia Combs MD [address] [place] [address] Social History Tobacco Use Types Packs/Day Years [...] ? LEBEL, JESSIE ? Accession #: ? [id number] ? : ? 1970 (Age: 37) ??F [...] in toto as (A). ? Received in [facility]'s solution labelled LebelBonniean and biopsy ascending ?? colon are two pink-bass irregular soft tissues, 0.7 x 0.2 x 0.1 cm and 0.8 x 0.1 x 0.1 cm. ??Submitted in toto as (B). ? Received in [facility]'s solution labelled Jessie Sanchez and biopsy transverse ?? colon are three pink-bass irregular soft tissues ranging from 0.1 x 0.1 x 0.1 cm to 0.5 x 0.2 x 0.1 cm. ??Submitted in toto as (C). ? Received in [facility]'s solution labelled LebelBonniean and biopsy sigmoid are [...] PATHOLOGY ORDERABLES Final Result [facility] [address] [place] [address] documented in this encounter Visit Diagnoses Not on filedocumented in this encounter
--- OUTSIDE RECORDS SUMMARY | 2024-04-26 13:27 | XMS_ITS | Encounter Summary ---
Author Organization [facility] Address [address] [place] [address] Care Team Providers Care Service Worker Helper Name Role Phone Genet Sauer MD Primary Care Provider [phone] Rosemary Rodriguez MD Primary Care Provide r Unavailable Encounter Details Date Type Department Care Team (Late st Contact Info) Description 01/18/2008 Before [facility]ISM Converted Visit ([facility] - Maple conversion [address] [place] [address] Ashley Abdi MD [address] [place] [address] [place] [address] Social History Tobacco Use Types Packs/Day Years [...] ? DIEUDONNE, JESSIE ? Accession #: ? [id number] ? : ? 1970 (Age: 37) ??F [...] cervix ? A4 ?Posterior cervix ? A5 ?Jewel Gauger sections of fallopian tube and paratubal cyst ? A6 ?Jewel Gauger sections of ovary ? A7, A8 ?Additional ovarian tissue ? A9 ?Additional endomyometrium ? (Dr. Adam)/mpl ? End of Report ? [facility] 01/18/2008 01/19/2008 10: 17 EDT us Ashley Abdi MD PATHOLOGY ORDERABLES Final Resu lt [facility] [address] [place] [address] documented in this encounter Visit Diagnoses Not on filedocumented in this encounter Care Teams Service Worker Helper Relationship Specialty Start Date End Date Genet Sauer MD [facility] [address] [place], [place] [address] PCP - General 10/01/08 09/18/12 Rosemary Rodriguez MD PCP - General 08/26/0809/10 documented as of this encounter
--- OUTSIDE RECORDS SUMMARY | 2024-04-26 13:27 | XMS_ITS | Encounter Summary ---
Author Organization [facility] Address [address] [place] [address] Care Team Providers Care Manager Billing Name Role Phone Genet Sauer MD Primary Care Provider [phone] Encounter Details Date Type Department Care Team (Late st Contact Info) Description 12/06/2020 Lab Requisition [facility] Pathology & Laboratory Medicine - [address] [address] Outr Resulting Lab, Provider Social History Tobacco [...] 1.7 - 2.8 mg/dL 12/07/2020 16:22 EDT [facility] Blood VENOUS BLOOD / Unknown 12/05/2020 12:00 EDT 12/07/2020 16:08 EDT us Provider Outr Resulting Lab CHEMISTRY & BLOOD GA S ORDERABLES Final Result [facility] [address] [place] [address] documented in this encounter Visit Diagnoses Not on filedocumented in this encounter Care Teams Manager Billing Relationship Specialty Start Date End Date Genet Sauer MD [address] [place] [address] PCP - General 09/19/12 documented as of this encounter
--- OUTSIDE RECORDS SUMMARY | 2024-04-26 13:27 | XMS_ITS | Encounter Summary ---
Author Organization [facility] Address [address] [place] [address] Care Team Providers Care Melter Supervisor Name Role Phone Genet Sauer MD Primary Care Provider [phone] Rosemary Rodriguez MD Primary Care Provide r Unavailable Encounter Details Date Type Department Care Team (Late st Contact Info) Description 07/20/2007 Results Only [facility] - Maple conversion [address] [place] [address] Abbie Waldron, [facility] [address] [place] [address] [place] [phone] Social History Tobacco Use Types Packs/Day Years [...] 68. [facility] Report Status Final [id number] [facility] 07/20/2007 14:5 0 EDT 07/30/2007 20:20 EDT Abbie Waldron IT TECHNICAL ARCHITECT MICROBIOLOGY - GENERAL ORDER [place] Final Result [facility] [address] [place] [address] * CYTOPATHOLOGY (07/20/2007 0:00 EDT) Pathology Report: CYTOPATHOLOGY REPORT Reports generated via electronic interface contain original data; however they are lacking the format of the original report. Caution should be taken when reading/interpreti ng unformatted reports. Name: ? DIEUDONNE JESSIE ? Accession #: ? [id number] : ? 1970 (Age: 36) ??F ?Collect Date: ? 07/20/2007 Location: ? [facility] ? Receive Date: ? 07/21/2007 Provider: ?ABBIE WALDRON IT TECHNICAL ARCHITECT Copy to: ? Specimen/Source: ?ThinPrep Pap Test, Cervix/Endocervix, processed on Synedgen ThinPrep Imaging System, with manual evaluation Last [...] [facility] 07/20/2007 07/21/2007 us Abbie Waldron IT TECHNICAL ARCHITECT PATHOLOGY ORDERABLES Final R esult [facility] [address] [place] [address] documented in this encounter Visit Diagnoses Not on filedocumented in this encounter Care Teams Melter Supervisor Relationship Specialty Start Date End Date Genet Sauer MD [facility] [address] [place], [place] [address] PCP - General 10/01/08 09/18/12 Rosemary Rodriguez MD PCP - General 08/26/0809/10 documented as of this encounter
--- OUTSIDE RECORDS SUMMARY | 2024-04-26 13:27 | XMS_ITS | Encounter Summary ---
Author Organization [facility] Address [address] [place] [address] Care Team Providers Care Manager Policy Name Role Phone Genet Sauer MD Primary Care Provider [phone] Encounter Details Date Type Department Care Team (Latest Contact Info) Description 02/26/2014 11:40 EST - 02/26/2014 23:59 EST Hospital Encounter [address] [address] Rosemary Rodriguez MD Discharge Disposition: Home or Self Care [...] Code Departure Means Destination Home or Self Long Term documented in this encounter Plan of Treatment Not on file documented as of this encounter Visit Diagnoses Not on filedocumented in this encounter Care Teams Manager Policy Relationship Specialty Start Date End Date Genet Sauer MD [address] [place] [address] PCP - General 09/19/12 documented as of this encounter
--- OUTSIDE RECORDS SUMMARY | 2024-04-26 13:27 | XMS_ITS | Encounter Summary ---
Author Organization [facility] Address [address] [place] [address] Care Team Providers Care Collateral Analyst Name Role Phone Genet Sauer MD Primary Care Provider [phone] Encounter Details Date Type Department Care Team (Late st Contact Info) Description 12/06/2020 Lab Requisition [facility] Pathology & Laboratory Medicine - [address] [address] Outr Resulting Lab, Provider Social History Tobacco [...] ANCA Interpretation Negative Negative 12/08/2020 15:[address] [facility] Comment: No titer performed, ANCA Screen is negative. Results were obtained with the INOVA NOVA Lite ANCA kit by indirect immunofluorescence. Blood VENOUS BLOOD / Unknown 12/05/2020 12:00 EDT 12/07/2020 16:08 EDT us Provider Outr Resulting Lab IMMUNOLOGY AND SEROL OGY ORDERABLES Final Result [facility] [address] [place] [address] documented in this encounter Visit Diagnoses Not on filedocumented in this encounter Care Teams Collateral Analyst Relationship Specialty Start Date End Date Genet Sauer MD [address] [place] [address] PCP - General 09/19/12 documented as of this encounter
--- OUTSIDE RECORDS SUMMARY | 2024-04-26 13:27 | XMS_ITS | Encounter Summary ---
Author Organization [facility] Address [address] [place] [address] Care Team Providers Care Marble Chip Terrazzo Worker Name Role Phone Alma Davila MD Primary Care Provider [phone] Encounter Details Date Type Department Care Team (Late st Contact Info) Description 09/15/2012 Results Only [facility]- PRISM [phone] Molina Hopkins, DO [address] [place] [address] Social History Tobacco Use Types [...] ? DIEUDONNE JESSIE ? Accession #: ? [id number] ? : ? 1970 (Age: 42) ??F [...] specimen is entirely submitted as (B1). ??(Dr. Stern)/[facility] End of Report [facility] 09/15/2012 16:1 3 EDT 09/15/2012 16:13 EDT us Molina Hopkins DO PATHOLOGY ORDERABLES Final Res ult [facility] [address] [place] [address] documented in this encounter Visit Diagnoses Not on filedocumented in this encounter Care Teams Marble Chip Terrazzo Worker Relationship Specialty Start Date End Date Alma Davila MD [facility] [address] [place], [place] [phone] PCP - General 10/01/08 09/18/12 documented as of this encounter
--- OUTSIDE RECORDS SUMMARY | 2024-04-26 13:27 | XMS_ITS | Encounter Summary ---
Author Organization [facility] Address [address] [place] [address] Care Team Providers Care Gear Grinding Machine Operator Name Role Phone Genet Sauer MD Primary Care Provider [phone] Encounter Details Date Type Department Care Team (Late st Contact Info) Description 08/08/2018 Results Only [facility]- [facility] [phone] Sarina Zapata MD [address] [place] [address] [address] [place], [place] [phone] Social History Tobacco Use Types Packs/Day Years [...] ? DIEUDONNE JESSIE ? Accession #: ? [id number] ? : ? 1970 (Age: 47) ??F [...] GI biopsy series is negative for dysplasia. Parking Enforcement Technician slides of this case were reviewed at [...] 08/08/2018 3:55 PM End of Report [facility] 08/08/2018 15:4 4 EDT 08/08/2018 15:44 EDT us Sarina Zapata MD PATHOLOGY ORDERABLES Fin al Result [facility] [address] [place] [address] documented in this encounter Visit Diagnoses Not on filedocumented in this encounter Care Teams Gear Grinding Machine Operator Relationship Specialty Start Date End Date Genet Sauer MD [address] [place] [address] PCP - General 09/19/12 documented as of this encounter
--- OUTSIDE RECORDS SUMMARY | 2024-04-26 13:27 | XMS_ITS | Encounter Summary ---
Author Organization [facility] Address [address] [place] [address] Care Team Providers Care Equipment Driver Name Role Phone Genet Sauer MD Primary Care Provider [phone] Encounter Details Date Type Department Care Team (Late st Contact Info) Description 07/17/2020 Lab Requisition [facility] Pathology & Laboratory Medicine - [address] [address] Outr Resulting Lab, Provider Social History Tobacco [...] AL ORDERABLES Final Result Performing Organization Address City/State/[facility] Co de Phone Number [facility] [address] [place] [address] * COVID-19 TESTING (07/17/2020 10:43 EDT) COVID-19 rt-PCR Result Negative Negative 07/18/2020 12:48 EDT [facility] Comment: This test has [...] performed using the rubi SARS-CoV-2 assay ([employer] on the Rubi 6800 System Performing Lab Rubi 68[address] [facility] Lab 07/18/2020 12:48 EDT [facility] Swab 07/17/2020 10:4 3 EDT 07/17/2020 20:09 EDT us Provider Outr Resulting Lab MICROBIOLOGY - GENER AL ORDERABLES Final Result Performing Organization Address [facility] Co de Phone Number [facility] [address] [place] [address] documented in this encounter Visit Diagnoses Not on filedocumented in this encounter Care Teams Equipment Driver Relationship Specialty Start Date End Date Genet Sauer MD [address] [place] [address] PCP - General 09/19/12 documented as of this encounter
--- OUTSIDE RECORDS SUMMARY | 2024-04-26 13:27 | XMS_ITS | Encounter Summary ---
Author Organization [facility] Address [address] [place] [address] Care Team Providers Care Tray Worker Name Role Phone Genet Sauer MD Primary Care Provider [phone] Rosemary Rodriguez MD Primary Care Provide r Unavailable Encounter Details Date Type Department Care Team (Late st Contact Info) Description 09/14/2007 Results Only [facility] - Maple conversion [address] [place] [address] Ashley Abdi MD [address] [place] [address] [place] [address] Social History Tobacco Use Types Packs/Day Years [...] ? JESSIE SANCHEZ ? Accession #: ? [id number] ? : ? 1970 (Age: 37) ??F [...] is submitted entirely in one cassette. ??(Joselito Eddy/mark End of Report [facility] 09/14/2007 09/14/2007 16: 53 EDT us Ashley Abdi MD PATHOLOGY ORDERABLES Final Resu lt [facility] [address] [place] [address] documented in this encounter Visit Diagnoses Not on filedocumented in this encounter Care Teams Tray Worker Relationship Specialty Start Date End Date Genet Sauer MD [facility] [address] [place] [address] PCP - General 10/01/08 09/18/12 Rosemary Rodriguez MD PCP - General 08/26/08 605/20 documented as of this encounter
--- OUTSIDE RECORDS SUMMARY | 2024-04-26 13:27 | XMS_ITS | Encounter Summary ---
Author Organization [facility] Address [address] [place] [address] Care Team Providers Care Clutch Rebuilder Name Role Phone Genet Sauer MD Primary Care Provider [phone] Encounter Details Date Type Department Care Team (Late st Contact Info) Description 04/02/2019 Lab Requisition [facility] Pathology & Laboratory Medicine - [address] [address] Karuna Santana, DO [address] [facility] [address] [place], [place] [phone] Encounter for other general examination Social History [...] mucosa negative for dysplasia. 04/09/2019 11:25 EST [facility] at 1125 Clinical History Perirectal cyst 04/09/2019 11:25 [facility] Attestation There was significant resident/fellow involvement in the diagnostic evaluation of this case. By the signature below, the attending physician certifies that they have personally conducted a gross and/or microscopic examination of the described specimens and rendered or confirmed the above diagnosis. 04/09/2019 11:25 [facility] at 1125 Gross [...] B1. Val Aditi 04/05/2019 08:44 04/09/2019 11:25 [facility] Resident/Alce w: Edy Hampton MD 04/09/2019 11:25 [facility] Scanned Images 04/09/2019 11:25 [facility] Tissue SPECIMEN FROM RECTUM / Unknown 04/02/2019 10:13 EST 04/02/2019 19:18 EST Tissue specimen (specimen) SPECIMEN FROM RECTUM / Unknown 04/02/2019 10:13 EST 04/02/2019 19:18 EST us Karuna Santana DO PATHOLOGY ORDERABLES Final Re sult [facility] [address] [place] [address] documented in this encounter Visit Diagnoses Diagnosis Encounter for other general examination documented in this encounter Care Teams Clutch Rebuilder Relationship Specialty Start Date End Date Genet Sauer MD [address] [place] [address] PCP - General 09/19/12 documented as of this encounter
--- OUTSIDE RECORDS SUMMARY | 2024-04-26 13:27 | XMS_ITS | Encounter Summary ---
Author Organization [facility] Address [address] [place] [address] Care Team Providers Care Reading Tutor Name Role Phone Genet Sauer MD Primary Care Provider [phone] Encounter Details Date Type Department Care Team (Latest Contact Info) Description 08/08/2018 12:18 EDT - 08/08/2018 23:59 EDT Hospital Encounter [address] [address] Rosemary Rodriguez MD Discharge Disposition: Auto Discharge Social History [...] on filedocumented in this encounter Care Teams Reading Tutor Relationship Specialty Start Date End Date Genet Sauer MD [address] [place] [address] PCP - General 09/19/12 documented as of this encounter
[2024-04-27 10:55] LABS: Campylobacter PCR Negative (Negative); Salmonella PCR Negative (Negative); Shiga Toxin PCR Negative (Negative); Shigella/Enteroinvasive Ecoli Negative (Negative)
[2024-04-30 16:19] LABS: Cryptosporidium, F Negative (Negative); Giardia Ag, F Negative (Negative)
== END 2024-04-26 13:19 | disposition home or self-care (01) ==
LOC: LBN 13:18
PROVIDERS: PCP Family Medicine; Visit Provider Family Medicine
DX: R19.7 Diarrhea, unspecified (principal)
CPT/HCPCS: 87328; 87329; 87425; 87493; 87505; 87798

== ENCOUNTER 2024-06-01 07:48 | Outpatient (CLI) | payer MEDICARE, SELFPAY ==
[2024-06-02 12:31] LABS: Tacrolimus 16.7 ng/mL (See Note)
== END 2024-06-01 07:49 | disposition home or self-care (01) ==
PROVIDERS: PCP Family Medicine; Visit Provider Registered Nurse
DX: Z94.2 Lung transplant status (principal)
CPT/HCPCS: 36415; 80197

== ENCOUNTER 2024-06-22 09:09 | Outpatient (CLI) | payer MEDICARE, SELFPAY ==
[2024-06-22 09:32] LABS: HCT 28.6 % (36.0-46.0); HGB 9.1 g/dL (11.2-15.7); MCH 30.3 pg (27.0-33.0); MCHC 31.8 % (32.0-36.0); MCV 95 fL (80-95); MPV 11.2 fL (8.0-11.0); Platelet Count 224 10^3/uL (130-400); RDW 14.7 % (11.7-14.6); RDW-SD 51.7 fL; WBC 3.61 10^3/uL (4.4-10.8)
[2024-06-22 09:52] LABS: Anion Gap 9.9 mmol/L (3-11); BUN 15 mg/dL (7-18); CO2 24.1 mmol/L (21.0-32.0); CREATININE 2.5 mg/dL (0.55-1.02); Calcium 8.6 mg/dL (8.5-10.1); Chloride 109 mmol/L (98-107); Estimated GFR 22.43 (mL/min/1.73m2); Glucose 92 mg/dL (74-106); Magnesium 1.4 mg/dL (1.8-2.4); Potassium 4.5 mmol/L (3.5-5.1); Sodium 143 mmol/L (136-145)
[2024-06-23 11:15] LABS: Tacrolimus 8.1 ng/mL (See Note)
== END 2024-06-22 09:10 | disposition home or self-care (01) ==
PROVIDERS: PCP Family Medicine; Visit Provider Physician Assistant
DX: Z94.2 Lung transplant status (principal)
CPT/HCPCS: 36415; 80048; 85027; 80197; 83735

== ENCOUNTER 2024-07-11 03:13 | Outpatient (CLI) | payer MEDICARE, SELFPAY ==
[2024-07-11 09:21] LABS: Anion Gap 12.3 mmol/L (3-11); BUN 27 mg/dL (7-18); CO2 21.7 mmol/L (21.0-32.0); CREATININE 2.4 mg/dL (0.55-1.02); Calcium 9.1 mg/dL (8.5-10.1); Chloride 109 mmol/L (98-107); Estimated GFR 23.56 (mL/min/1.73m2); Glucose 86 mg/dL (74-106); Potassium 5.7 mmol/L (3.5-5.1); Sodium 143 mmol/L (136-145)
[2024-07-12 12:24] LABS: Tacrolimus 7.1 ng/mL (See Note)
== END 2024-07-11 03:14 | disposition home or self-care (01) ==
LOC: LBO 03:13
PROVIDERS: PCP Family Medicine; Visit Provider Registered Nurse
DX: Z94.2 Lung transplant status (principal)
CPT/HCPCS: 36415; 80048; 80197

== ENCOUNTER 2024-07-18 13:09 | Outpatient (CLI) | payer MEDICARE, SELFPAY ==
[2024-07-18 13:31] LABS: Anion Gap 10.9 mmol/L (3-11); BUN 29 mg/dL (7-18); CO2 18.1 mmol/L (21.0-32.0); CREATININE 2.3 mg/dL (0.55-1.02); Chloride 109 mmol/L (98-107); Estimated GFR 24.79 (mL/min/1.73m2); Glucose 118 mg/dL (74-106); Magnesium 1.3 mg/dL (1.8-2.4); PHOSPHORUS 3.4 mg/dL (2.6-4.7); Potassium 5.6 mmol/L (3.5-5.1); Sodium 138 mmol/L (136-145)
== END 2024-07-18 13:10 | disposition home or self-care (01) ==
LOC: LBO 13:10
PROVIDERS: PCP Family Medicine; Visit Provider Family Medicine
DX: Z01.818 Encounter for other preprocedural examination (principal)
CPT/HCPCS: 36415; 80048; 83735; 84100

== ENCOUNTER → 2024-07-30 13:02 | Outpatient (BNVA) | payer MEDICARE, SELFPAY | PROVIDERS: PCP Family Medicine; Referring Provider Family Medicine; Visit Provider Physician Assistant Surgical | DX: R06.09 Other forms of dyspnea (principal); R53.83 Other fatigue; Z94.2 Lung transplant status; Z79.2 Long term (current) use of antibiotics | CPT/HCPCS: 94618; 99215 ==

== ENCOUNTER 2024-07-31 09:47 | Outpatient (RCR) | payer MEDICARE, SELFPAY | END 2024-08-08 23:59 | disposition home or self-care (01) | LOC: PRC 09:47 | PROVIDERS: PCP Family Medicine; Visit Provider Physician Assistant Surgical | DX: Z94.2 Lung transplant status (principal); Z51.89 Encounter for other specified aftercare | CPT/HCPCS: 94626 ==

== ENCOUNTER 2024-08-13 02:45 | Outpatient (CLI) | payer MEDICARE, SELFPAY ==
[2024-08-13 08:24] LABS: Abs Immature Grans 0.03 10^3/uL (0.0-0.06); Absolute Basophil Count 0.02 10^3/uL (0.0-0.2); Absolute Eosinophil Count 0.07 10^3/uL (0.0-0.7); Absolute Lymphocyte Count 0.97 10^3/uL (1.2-3.4); Absolute Monocyte Count 0.42 10^3/uL (0.1-0.8); Absolute Neutrophil Count 2.99 10^3/uL (1.2-6.7); Basophils % 0.4 %; Eosinophils % 1.6 %; HCT 28.9 % (36.0-46.0); HGB 8.9 g/dL (11.2-15.7); Immature Grans % 0.7 %; Lymphocytes % 21.6 %; MCH 29.4 pg (27.0-33.0); MCHC 30.8 % (32.0-36.0); MCV 95 fL (80-95); MPV 10.9 fL (8.0-11.0); Monocytes % 9.3 %; Neutrophils % 66.4 %; Platelet Count 243 10^3/uL (130-400); RBC 3.03 10^6/uL (3.93-5.22); RDW-SD 49.1 fL
[2024-08-14 09:18] LABS: Tacrolimus 12.4 ng/mL (See Note)
== END 2024-08-13 02:46 | disposition home or self-care (01) ==
PROVIDERS: PCP Family Medicine; Visit Provider Nurse Practitioner Adult Health
DX: Z94.2 Lung transplant status (principal)
CPT/HCPCS: 36415; 80197; 85025

== ENCOUNTER 2024-09-05 07:28 | Outpatient (CLI) | payer MEDICARE, SELFPAY ==
[2024-09-05 09:30] LABS: Abs Immature Grans 0.02 10^3/uL (0.0-0.06); Absolute Basophil Count 0.02 10^3/uL (0.0-0.2); Absolute Eosinophil Count 0.07 10^3/uL (0.0-0.7); Absolute Lymphocyte Count 0.88 10^3/uL (1.2-3.4); Absolute Monocyte Count 0.29 10^3/uL (0.1-0.8); Basophils % 0.6 %; Eosinophils % 2.1 %; HCT 26.4 % (36.0-46.0); HGB 8.3 g/dL (11.2-15.7); Immature Grans % 0.6 %; MCH 29.7 pg (27.0-33.0); MCHC 31.4 % (32.0-36.0); MCV 95 fL (80-95); MPV 11.5 fL (8.0-11.0); Monocytes % 8.6 %; Neutrophils % 62.1 %; Platelet Count 194 10^3/uL (130-400); RBC 2.79 10^6/uL (3.93-5.22); RDW 14.8 % (11.7-14.6); RDW-SD 50.5 fL; WBC 3.38 10^3/uL (4.4-10.8)
[2024-09-06 14:31] LABS: Tacrolimus 8.5 ng/mL (See Note)
== END 2024-09-05 07:29 | disposition home or self-care (01) ==
PROVIDERS: Physician Assistant Medical; PCP Family Medicine; Visit Provider Nurse Practitioner Adult Health
DX: Z94.2 Lung transplant status (principal)
CPT/HCPCS: 36415; 80197; 85025

== ENCOUNTER 2024-09-07 13:29 | Outpatient (RCR) | payer MEDICARE, SELFPAY | END 2024-09-08 23:59 | disposition home or self-care (01) | LOC: PRC 13:29 | PROVIDERS: PCP Family Medicine; Visit Provider Physician Assistant Surgical | DX: Z94.2 Lung transplant status (principal); Z51.89 Encounter for other specified aftercare | CPT/HCPCS: 94626 ==

== ENCOUNTER 2024-09-14 14:00 | Outpatient (RCR) | payer MEDICARE, SELFPAY | END 2024-10-08 23:59 | disposition home or self-care (01) | LOC: PRC 14:00 | PROVIDERS: PCP Family Medicine; Visit Provider Internal Medicine Cardiovascular Disease | DX: Z94.2 Lung transplant status (principal); Z51.89 Encounter for other specified aftercare | CPT/HCPCS: 94626 ==

== ENCOUNTER 2024-09-28 13:32 | Emergency (ER) | payer MEDICARE, SELFPAY ==
[2024-09-28 13:34] VITALS: BP 147/84; PULSE 89; RESP 16; TEMP 36.8; O2SAT 98
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
[2024-09-28] MEDS: Cetirizine 10 MG TAB PO (14:17)
[2024-09-28 14:32] LABS: Abs Immature Grans 0.02 10^3/uL (0.0-0.06); Absolute Basophil Count 0.02 10^3/uL (0.0-0.2); Absolute Eosinophil Count 0.04 10^3/uL (0.0-0.7); Absolute Lymphocyte Count 0.55 10^3/uL (1.2-3.4); Absolute Monocyte Count 0.33 10^3/uL (0.1-0.8); Absolute Neutrophil Count 3.17 10^3/uL (1.2-6.7); Basophils % 0.5 %; HCT 24.5 % (36.0-46.0); HGB 8.1 g/dL (11.2-15.7); Immature Grans % 0.5 %; Lymphocytes % 13.3 %; MCHC 33.1 % (32.0-36.0); MCV 94 fL (80-95); MPV 10.7 fL (8.0-11.0); Neutrophils % 76.7 %; Platelet Count 247 10^3/uL (130-400); RBC 2.61 10^6/uL (3.93-5.22); RDW 15.4 % (11.7-14.6); RDW-SD 52.4 fL; WBC 4.13 10^3/uL (4.4-10.8)
[2024-09-28 14:39] LABS: ESR 17 mm/hr (0-30)
[2024-09-28 14:49] LABS: ALT 21 U/L (14-59); AST 21 U/L (15-37); Albumin 3.5 g/dL (3.4-5.0); Alkaline Phosphatase 178 U/L (46-116); Anion Gap 12.3 mmol/L (3-11); BUN 33 mg/dL (7-18); Bilirubin, Total 0.2 mg/dL (0.2-1.0); C-Reactive Protein 1.48 mg/dL (<or=0.5); CO2 17.7 mmol/L (21.0-32.0); CREATININE 3.1 mg/dL (0.55-1.02); Calcium 8.5 mg/dL (8.5-10.1); Chloride 109 mmol/L (98-107); Estimated GFR 17.22 (mL/min/1.73m2); Glucose 123 mg/dL (74-106); Potassium 5.2 mmol/L (3.5-5.1); Sodium 139 mmol/L (136-145); Total Protein 6.9 g/dL (6.4-8.2)
[2024-09-28 14:53] LABS: Anisocytosis 1+; Diff Comment RBC Morph Reviewed; Poikilocytes 2+
--- NOTE | 2024-09-28 15:00 | RT.EKG_ITS ---
APPROVED REPORT Exam: Resting ECG Reason for Exam: hyperkalemia Patient Location: E HR:90 bpm ECG Measurements Heart Rate 90 AXIS OH 193 P 61 QRSd 76 QRS 39 QT 377 T 23 QTc 463 Conclusion Sinus rhythm...normal P axis, V-rate 60- 99 Probable left atrial enlargement...P >50mS, <-0.10mV V1 Low voltage, precordial leads...precordial leads <1.0mV Physician: no stemi
[2024-09-28] MEDS: Normal Saline 1,000 ML 1000 ML IV (16:06)
[2024-09-28 16:52] VITALS: BP 153/84; PULSE 86; RESP 16; O2SAT 99
[2024-09-29 11:57] LABS: Tacrolimus 10.3 ng/mL (See Note)
== END 2024-09-28 16:54 | disposition home or self-care (01) ==
PROVIDERS: Emergency Provider Physician Assistant; PCP Family Medicine
DX: R21 Rash and other nonspecific skin eruption (principal); E87.5 Hyperkalemia; J44.9 Chronic obstructive pulmonary disease, unspecified; Z94.2 Lung transplant status; Z87.891 Personal history of nicotine dependence
CPT/HCPCS: 36415; 80053; 85652; 93005; 96360; 99284; 80197; 85025; 86140; 93010

== ENCOUNTER 2024-10-04 08:08 | Outpatient (CLI) | payer MEDICARE, SELFPAY ==
[2024-10-04 08:34] LABS: ALT 21 U/L (14-59); AST 16 U/L (15-37); Albumin 3.2 g/dL (3.4-5.0); Alkaline Phosphatase 170 U/L (46-116); Anion Gap 11.6 mmol/L (3-11); BUN 31 mg/dL (7-18); Bilirubin, Total 0.2 mg/dL (0.2-1.0); CO2 19.4 mmol/L (21.0-32.0); CREATININE 2.5 mg/dL (0.55-1.02); Calcium 8.5 mg/dL (8.5-10.1); Chloride 112 mmol/L (98-107); Estimated GFR 22.29 (mL/min/1.73m2); Glucose 105 mg/dL (74-106); Magnesium 1.3 mg/dL (1.8-2.4); Potassium 4.8 mmol/L (3.5-5.1); Sodium 143 mmol/L (136-145); Total Protein 6.3 g/dL (6.4-8.2)
[2024-10-05 14:00] LABS: Tacrolimus 8.1 ng/mL (See Note)
== END 2024-10-04 08:09 | disposition home or self-care (01) ==
LOC: LBO 08:09
PROVIDERS: PCP Family Medicine; Visit Provider Nurse Practitioner Adult Health
DX: Z94.2 Lung transplant status (principal)
CPT/HCPCS: 36415; 80053; 80197; 83735

== ENCOUNTER 2024-10-29 14:00 | Outpatient (RCR) | payer MEDICARE, SELFPAY | END 2024-11-08 23:59 | disposition home or self-care (01) | LOC: PRC 14:00 | PROVIDERS: PCP Family Medicine; Visit Provider Internal Medicine Cardiovascular Disease | DX: Z94.2 Lung transplant status (principal); Z51.89 Encounter for other specified aftercare | CPT/HCPCS: 94626 ==

== ENCOUNTER 2024-11-05 09:28 | Outpatient (CLI) | payer MEDICARE, SELFPAY ==
[2024-11-05 08:28] LABS: Anion Gap 10.7 mmol/L (3-11); BUN 39 mg/dL (7-18); CO2 19.3 mmol/L (21.0-32.0); Calcium 8.7 mg/dL (8.5-10.1); Chloride 112 mmol/L (98-107); Estimated GFR 20.33 (mL/min/1.73m2); Glucose 137 mg/dL (74-106); Magnesium 1.5 mg/dL (1.8-2.4); Potassium 5.4 mmol/L (3.5-5.1); Sodium 142 mmol/L (136-145)
== END 2024-11-05 09:29 | disposition home or self-care (01) ==
LOC: LBO 09:28
PROVIDERS: PCP Family Medicine; Visit Provider Nurse Practitioner Adult Health
DX: Z94.2 Lung transplant status (principal)
CPT/HCPCS: 36415; 80048; 80197; 83735

== ENCOUNTER 2024-11-30 13:59 | Outpatient (CLI) | payer MEDICARE, SELFPAY ==
[2024-11-30 09:30] LABS: Abs Immature Grans 0.04 10^3/uL (0.0-0.06); HCT 25.3 % (36.0-46.0); HGB 8.2 g/dL (11.2-15.7); Immature Grans % 1.0 %; MCH 30.5 pg (27.0-33.0); MCHC 32.4 % (32.0-36.0); MCV 94 fL (80-95); MPV 10.0 fL (8.0-11.0); Platelet Count 210 10^3/uL (130-400); RBC 2.69 10^6/uL (3.93-5.22); RDW 14.3 % (11.7-14.6); RDW-SD 48.1 fL; WBC 4.06 10^3/uL (4.4-10.8)
[2024-11-30 09:34] LABS: Ferritin 104 ng/mL (8-252); Vitamin B12 251 pg/mL (193-986); Vitamin D 25 Total 37 ng/mL (30-100)
[2024-11-30 10:08] LABS: Iron 61 ug/dL (50-170); Total Iron Binding Capacity 339 ug/dL (250-450); Transferrin Sat 18 % (15-50)
[2024-11-30 10:10] LABS: ALT 14 U/L (14-59); AST 14 U/L (15-37); Albumin 3.6 g/dL (3.4-5.0); Alkaline Phosphatase 156 U/L (46-116); Anion Gap 15.4 mmol/L (3-11); BUN 46 mg/dL (7-18); Bilirubin, Total 0.3 mg/dL (0.2-1.0); CO2 17.6 mmol/L (21.0-32.0); Calcium 9.4 mg/dL (8.5-10.1); Chloride 110 mmol/L (98-107); Estimated GFR 11.96 (mL/min/1.73m2); Glucose 100 mg/dL (74-106); Magnesium 1.4 mg/dL (1.8-2.4); Potassium 5.0 mmol/L (3.5-5.1); Sodium 143 mmol/L (136-145); Total Protein 7.0 g/dL (6.4-8.2)
[2024-11-30 14:34] LABS: Vitamin D 25 Total 35 ng/mL (30-100)
== END 2024-11-30 14:00 | disposition home or self-care (01) ==
LOC: LBO 14:01
PROVIDERS: PCP Family Medicine; Visit Provider Nurse Practitioner Adult Health
DX: D64.9 Anemia, unspecified (principal); E55.9 Vitamin D deficiency, unspecified; Z94.2 Lung transplant status
CPT/HCPCS: 36415; 80053; 82306; 87799; 80197; 82607; 82728; 83540; 83550; 83735; 84100; 85025; 87497

== ENCOUNTER 2024-11-30 16:47 | Emergency (ER) | payer MEDICARE, SELFPAY ==
[2024-11-30] VITALS (49 sets, daily range): BP systolic 137–196; BP diastolic 81–125; PULSE 75–105; RESP 16–18; TEMP 35.9; O2SAT 93–100
--- NOTE | 2024-11-30 16:45 | RT.EKG_ITS ---
APPROVED REPORT Exam: Resting ECG Reason for Exam: Epigastric pain Patient Location: E HR:96 bpm ECG Measurements Heart Rate 96 AXIS PA 185 P 75 QRSd 87 QRS 44 QT 356 T 35 QTc 451 Conclusion Sinus rhythm, rate 96 No interval abnormalities No STEMI No significant changes from priors
[2024-11-30 18:07] LABS: Abs Immature Grans 0.03 10^3/uL (0.0-0.06); HCT 23.6 % (36.0-46.0); HGB 7.9 g/dL (11.2-15.7); Immature Grans % 0.8 %; MCH 31.0 pg (27.0-33.0); MCHC 33.5 % (32.0-36.0); MCV 93 fL (80-95); MPV 10.8 fL (8.0-11.0); Platelet Count 225 10^3/uL (130-400); RBC 2.55 10^6/uL (3.93-5.22); RDW 14.4 % (11.7-14.6); RDW-SD 48.2 fL; WBC 3.75 10^3/uL (4.4-10.8)
[2024-11-30] MEDS: Normal Saline 1,000 ML 1000 ML IV (18:21)
[2024-11-30 18:46] LABS: ALT 14 U/L (14-59); AST 14 U/L (15-37); Albumin 3.7 g/dL (3.4-5.0); Alkaline Phosphatase 154 U/L (46-116); Anion Gap 13.7 mmol/L (3-11); BUN 47 mg/dL (7-18); Bilirubin, Total 0.3 mg/dL (0.2-1.0); C-Reactive Protein 0.50 mg/dL (<or=0.5); CO2 17.3 mmol/L (21.0-32.0); Calcium 8.8 mg/dL (8.5-10.1); Chloride 108 mmol/L (98-107); Estimated GFR 10.73 (mL/min/1.73m2); Glucose 113 mg/dL (74-106); Lipase 32 U/L (<78); Magnesium 1.2 mg/dL (1.8-2.4); Potassium 5.3 mmol/L (3.5-5.1); Sodium 139 mmol/L (136-145); Total Protein 6.8 g/dL (6.4-8.2)
[2024-11-30 18:58] LABS: Glucose Negative (Negative)
[2024-11-30 19:05] LABS: C & S Indicated? No; RBC Negative HPF (0-2)
[2024-11-30] MEDS: MAGNESIUM SULFATE 2 GM/50 ML BAG IV_INF (19:16)
[2024-11-30 20:30] LABS: Anion Gap 10.9 mmol/L (3-11); BUN 46 mg/dL (7-18); CO2 18.1 mmol/L (21.0-32.0); Calcium 8.0 mg/dL (8.5-10.1); Chloride 113 mmol/L (98-107); Estimated GFR 12.31 (mL/min/1.73m2); Glucose 95 mg/dL (74-106); Potassium 5.0 mmol/L (3.5-5.1); Sodium 142 mmol/L (136-145)
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
[2024-11-30] MEDS: Normal Saline 1,000 ML 150 ML IV (21:21)
[2024-11-30] MEDS: Acetaminophen 500 MG TAB 1000 MG PO (23:59)
[2024-12-01] VITALS (57 sets, daily range): BP systolic 115–169; BP diastolic 88–101; PULSE 71–98; O2SAT 95–100
--- NOTE | 2024-12-01 01:36 | NUR.NOTE ---
Spoke with Sammi at [facility] transfer [facility]. They said they will hold the bed for tomorrow morning so we can transport the PT. 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 Nursing Note:
[2024-12-01] MEDS: Esomeprazole 20 MG CAPCR PO (07:43)
[2024-12-01] MEDS: clonazePAM 0.5 MG TAB PO (07:43)
[2024-12-01] MEDS: Tacrolimus 0.5 MG CAP 3.5 MG PO (07:43)
[2024-12-01] MEDS: Levothyroxine 100 MCG TAB PO (07:43)
[2024-12-01] MEDS: buPROPion-XL 150 MG TABCR 450 MG PO (07:43)
== END 2024-12-01 08:23 | disposition short-term general hospital (02) ==
PROVIDERS: Emergency Provider Physician Assistant; PCP Family Medicine
DX: N17.9 Acute kidney failure, unspecified (principal); Z94.2 Lung transplant status
CPT/HCPCS: 36415; 80048; 80053; 82306; 83690; 87799; 93005; 96360; 96361; 99285; 80197; 81003; 81015; 82607; 82728; 83540; 83550; 83735; 84100; 85025; 86140; 87497; 93010; J3475; J3490; J7512

== ENCOUNTER 2024-12-06 14:01 | Outpatient (CLI) | payer MEDICARE, SELFPAY ==
[2024-12-06 08:20] LABS: Abs Immature Grans 0.05 10^3/uL (0.0-0.06); HCT 24.1 % (36.0-46.0); HGB 7.9 g/dL (11.2-15.7); Immature Grans % 1.2 %; MCH 31.0 pg (27.0-33.0); MCHC 32.8 % (32.0-36.0); MCV 95 fL (80-95); MPV 10.7 fL (8.0-11.0); Platelet Count 227 10^3/uL (130-400); RBC 2.55 10^6/uL (3.93-5.22); RDW 14.1 % (11.7-14.6); RDW-SD 48.6 fL; WBC 4.02 10^3/uL (4.4-10.8)
[2024-12-06 08:45] LABS: Anion Gap 11.2 mmol/L (3-11); BUN 25 mg/dL (7-18); CO2 21.8 mmol/L (21.0-32.0); Calcium 9.2 mg/dL (8.5-10.1); Chloride 107 mmol/L (98-107); Estimated GFR 15.98 (mL/min/1.73m2); Glucose 106 mg/dL (74-106); Potassium 4.2 mmol/L (3.5-5.1); Sodium 140 mmol/L (136-145)
== END 2024-12-06 14:02 | disposition home or self-care (01) ==
LOC: LBO 14:01
PROVIDERS: PCP Family Medicine; Visit Provider Physician Assistant
DX: Z94.2 Lung transplant status (principal)
CPT/HCPCS: 36415; 80048; 80197; 84439; 84443; 85025

== ENCOUNTER 2024-12-27 08:36 | Outpatient (CLI) | payer MEDICARE, SELFPAY ==
[2024-12-27 07:53] LABS: Abs Immature Grans 0.01 10^3/uL (0.0-0.06); HCT 25.8 % (36.0-46.0); HGB 8.5 g/dL (11.2-15.7); Immature Grans % 0.3 %; MCH 30.9 pg (27.0-33.0); MCHC 32.9 % (32.0-36.0); MCV 94 fL (80-95); MPV 10.0 fL (8.0-11.0); Platelet Count 200 10^3/uL (130-400); RBC 2.75 10^6/uL (3.93-5.22); RDW 14.3 % (11.7-14.6); RDW-SD 48.8 fL; WBC 3.36 10^3/uL (4.4-10.8)
[2024-12-27 08:36] LABS: Anion Gap 8.9 mmol/L (3-11); BUN 23 mg/dL (7-18); CO2 27.1 mmol/L (21.0-32.0); Calcium 9.1 mg/dL (8.5-10.1); Chloride 105 mmol/L (98-107); Estimated GFR 15.42 (mL/min/1.73m2); Glucose 105 mg/dL (74-106); Magnesium 1.5 mg/dL (1.8-2.4); Potassium 4.1 mmol/L (3.5-5.1); Sodium 141 mmol/L (136-145)
== END 2024-12-27 08:37 | disposition home or self-care (01) ==
LOC: LBO 08:37
PROVIDERS: PCP Family Medicine; Visit Provider Family Medicine
DX: Z94.2 Lung transplant status (principal)
CPT/HCPCS: 36415; 80048; 80197; 83735; 84100; 85025

== ENCOUNTER 2025-01-21 09:53 | Outpatient (CLI) | payer MEDICARE, SELFPAY ==
[2025-01-21 07:23] LABS: Abs Immature Grans 0.00 10^3/uL (0.0-0.06); HCT 27.0 % (36.0-46.0); HGB 9.0 g/dL (11.2-15.7); Immature Grans % 0.0 %; MCH 32.0 pg (27.0-33.0); MCHC 33.3 % (32.0-36.0); MCV 96 fL (80-95); MPV 9.9 fL (8.0-11.0); Platelet Count 184 10^3/uL (130-400); RBC 2.81 10^6/uL (3.93-5.22); RDW 13.0 % (11.7-14.6); RDW-SD 46.4 fL; WBC 2.65 10^3/uL (4.4-10.8)
[2025-01-21 08:28] LABS: ALT 22 U/L (14-59); AST 17 U/L (15-37); Albumin 3.4 g/dL (3.4-5.0); Alkaline Phosphatase 159 U/L (46-116); Anion Gap 10.5 mmol/L (3-11); BUN 33 mg/dL (7-18); Bilirubin, Total 0.3 mg/dL (0.2-1.0); CO2 26.5 mmol/L (21.0-32.0); Calcium 9.2 mg/dL (8.5-10.1); Chloride 105 mmol/L (98-107); Estimated GFR 13.93 (mL/min/1.73m2); Glucose 116 mg/dL (74-106); Potassium 4.5 mmol/L (3.5-5.1); Sodium 142 mmol/L (136-145); Total Protein 7.1 g/dL (6.4-8.2)
== END 2025-01-21 09:54 | disposition home or self-care (01) ==
LOC: LBO 09:53
PROVIDERS: PCP Family Medicine; Visit Provider Nurse Practitioner Adult Health
DX: Z94.2 Lung transplant status (principal)
CPT/HCPCS: 36415; 80053; 80197; 85025

== ENCOUNTER 2025-02-05 01:05 | Outpatient (CLI) | payer MEDICARE, SELFPAY ==
--- NOTE | 2025-02-05 07:33 | DI.MAMMO_ITS ---
Exam(s) MAMMO SCREENING EXAM: MAMMO SCREENING CLINICAL HISTORY: screening,z12.39. TECHNIQUE: Bilateral full field digital CC and MLO mammographic images were obtained with 3D tomosynthesis and utilizing computer aided detection (CAD). COMPARISON: Prior mammograms were reviewed. FINDINGS: There has been no significant change in the appearance and distribution of the fibroglandular tissue. There are no new spiculated masses nor malignant appearing microcalcification groups. There is no significant architectural distortion nor skin thickening-retraction. IMPRESSION: No radiographic evidence of malignancy. BI-RADS Category 1 - Negative Breast Density - Category B - There are scattered areas of fibroglandular density. Breast density Category C or D implies that the patient has dense breast tissue. Dense breast tissue can make it harder to find cancer on a mammogram. Dense breast tissue is also associated with an increased risk of breast cancer. This information about the result of the mammogram report was provided to the patient to raise their awareness. Use this report when you speak with the patient about their risks for breast cancer, which includes their family history. At that time, you may recommend additional screening tests (Ultrasound or MRI) as these tests may add significant information. A negative radiographic report should not delay biopsy if a dominant or clinically suspicious mass is present. Up to ten percent of cancers are not identified on mammography. A negative report may reinforce clinical impression. Adenosis and dense breasts may obscure an underlying neoplasm. False positive reports average 6 to 10%. Patient will receive a letter notifying them of these results.
== END 2025-02-05 01:25 ==
LOC: DI 01:06
PROVIDERS: PCP Family Medicine; Visit Provider Family Medicine
DX: Z12.31 Encounter for screening mammogram for malignant neoplasm of breast (principal); R92.323 Mammographic fibroglandular density, bilateral breasts
CPT/HCPCS: 77063; 77067

== ENCOUNTER 2025-02-18 09:59 | Outpatient (CLI) | payer MEDICARE, SELFPAY ==
[2025-02-18 11:03] LABS: Albumin 3.8 g/dL (3.4-5.0); Anion Gap 10.6 mmol/L (3-11); BUN 24 mg/dL (7-18); CO2 25.4 mmol/L (21.0-32.0); Calcium 9.1 mg/dL (8.5-10.1); Chloride 106 mmol/L (98-107); Glucose 116 mg/dL (74-106); Potassium 4.2 mmol/L (3.5-5.1); Sodium 142 mmol/L (136-145)
[2025-02-19 20:15] LABS: Cystatin C, S 2.32 mg/L
== END 2025-02-18 10:00 | disposition home or self-care (01) ==
LOC: LBO 09:59
PROVIDERS: PCP Family Medicine; Visit Provider Internal Medicine Nephrology
DX: Z01.818 Encounter for other preprocedural examination (principal)
CPT/HCPCS: 36415; 80069; 82610